=== PATIENT | male | born 1960 | race Caucasian/White ===

== ENCOUNTER → 2017-03-28 13:15 | Outpatient (CLI) | payer MEDICARE, MEDICAID, SELFPAY ==
[2017-03-28 14:22] LABS: Hematocrit 42.9 % (40-54); Hemoglobin 14.8 g/dl (13.0-16.5); Mean Corp Hgb Conc 34.5 g/gl (32-36); Mean Corpuscular Hgb 38.3 pg (27.0-32.0); Mean Corpuscular Volume 111.1 fL (80-94); Mean Platelet Vol. 9.2 fl (6.2-12.0); Platelet Count 169 K/mm3 (150-450); RBC Distribution Width CV 13.1 % (11.6-14.6); RBC Distribution Width SD 51.4 fl (35.1-43.9); Red Blood Count 3.86 M/mm3 (4.6-6.2)
[2017-03-28 14:24] LABS: Scan Indicated on CBC? Y/N NO
[2017-03-28 14:59] LABS: Valproic Acid (Depakene) Level 75 ug/mL (50-100)
[2017-03-28 15:05] LABS: ALB/GLOB Ratio 0.8 RATIO (0.9-2.4); AST(SGOT) 22 U/L (15-37); Alanine Aminotransfer ALT/SGPT 24 U/L (12-78); Albumin, Serum 3.4 g/dL (3.4-5.0); Alkaline Phosphatase 64 U/L (45-117); Anion Gap 6 (5-15); BUN 9 mg/dL (7-18); BUN/Creat Ratio 8.8 RATIO (10-20); Calcium,Total 8.6 mg/dL (8.5-10.1); Chloride 99 mmol/L (98-107); Creatinine, Serum 1.02 mg/dL (0.70-1.30); EST Glomerular Filtration Rate 81 mL/min (>60); Est Glom Filt Rate - Afr Amer 98 mL/min (>60); Globulin 4.3 g/dL (2.2-4.2); Glucose 84 mg/dL (70-110); Potassium 4.4 mmol/L (3.5-5.1); Protein, Total 7.7 g/dL (6.4-8.2); Sodium Level 132 mmol/L (136-145); Thyroid Stim Hormone (TSH) 2.24 uIU/mL (0.358-3.74)
--- OUTSIDE RECORDS SUMMARY | 2017-05-11 12:34 | XMS RPT_ITS ---
:1960 Author Organization OHIP Care Team Providers Name Role Phone JEAN PIERRE VOSS Attending Unavailable JEAN PIERRE VOSS Referring Unavailable HOLDEN OCONNOR) Attending Unavailable HOLDEN OCONNOR) Referring Unavailable JEAN PIERRE VOSS Attending Unavailable HOLDEN OCONNOR) Referring Unavailable HOLDEN OCONNOR) Attending Unavailable HOLDEN OCONNOR) Referring Unavailable HOLDEN OCONNOR) Attending Unavailable HOLDEN GOMEZ) Attending Unavailable JEAN PIERRE VOSS Attending Unavailable HOLDEN OCONNOR) Referring Unavailable Annamaria Connor Admitting Unavailable Tavo Oconnor Primary Care Unavailable Mark Gonzalez Attending Unavailable Torey Nicole Consulting Unavailable Jesus Smith Consulting Unavailable Celia Negron Attending Unavailable Tavo Oconnor Primary Care Unavailable Celia Negron Attending Unavailable Tavo Oconnor Primary Care Unavailable PROBLEMS PROBLEMS DATE TYPE CONDITION / CODE ATTENDING STATUS SOURCE 05/11/2017 Unknown Z79.899 - Other long Celia Negron Active [facility] term (current) drug Community therapy / Hospital Z79.899(ICD-10) Repository 02/22/2017 Active Unknown / TESTRAKE, Active [facility]Medicity [facility] [place] [facility]2016 Active Emphysema, NA Active [facility] unspecified / Clinic Main J43.9(ICD-10) [facility] Repository 09/30/2016 Unknown OTHER ALF Astreika Vera Active [facility] (CURRENT) DRUG Community THERAPY / Hospital Z79.899(ICD-10) Repository 09/11/2016 Unknown CELLULITIS OF LEFT Jopperi, Mark Active [facility] LOWER LIMB / Community L03.116(ICD-10) Hospital Repository 09/11/2016 Unknown HYPOTENSION, Jopperi, Mark Active [facility] UNSPECIFIED / Community I95.9(ICD-10) Hospital Repository 09/11/2016 Unknown HYPEROSMOLALITY AND Jopperi, Mark Active [facility] HYPERNATREMIA / Community E87.0(ICD-10) Hospital Repository 09/11/2016 Unknown OTHER ASCITES / Jopperi, Mark Active [facility] R18.8(ICD-10) [facility] Repository 09/11/2016 Unknown SCHIZOPHRENIA, Jopperi, Mark Active [facility] UNSPECIFIED / Community F20.9(ICD-10) Hospital Repository 09/11/2016 Unknown OTHER SPECIFIED Jopperi, Mark Active [facility] DISORDERS OF VEINS / Community I87.8(ICD-10) Hospital Repository 09/11/2016 Unknown ALCOHOL DEPENDENCE Jopperi, Mark Active [facility] WITH WITHDRAWAL, Community UNSPECIFIED / Hospital F10.239(ICD-10) Repository 09/11/2016 Unknown CELLULITIS OF RIGHT Jopperi, Mark Active [facility] LOWER LIMB / Community L03.115(ICD-10) Hospital Repository 09/11/2016 Unknown LYMPHEDEMA, NOT Jopperi, Mark Active [facility] ELSEWHERE CLASSIFIED Community / I89.0(ICD-10) Hospital Repository 09/11/2016 Unknown OTHER CHRONIC PAIN / Jopperi, Makr Active [facility] G89.29(ICD-10) Community Hospital Repository 09/11/2016 Unknown CHRONIC OBSTRUCTIVE Jopperi, Mark Active [facility] PULMONARY DISEASE, Community UNSPECIFIED / Hospital J44.9(ICD-10) Repository 09/11/2016 Unknown ESSENTIAL (PRIMARY) Jopperi, Mark Active [facility] HYPERTENSION / Community I10(ICD-10) Hospital Repository 09/11/2016 Unknown GASTRO-ESOPHAGEAL Jopperi, Mark Active [facility] REFLUX DISEASE Community WITHOUT ESOPHAGITIS / Hospital K21.9(ICD-10) Repository 09/11/2016 Unknown BIPOLAR DISORDER, Jopperi, Mark Active [facility] UNSPECIFIED / Community F31.9(ICD-10) Hospital Repository 09/11/2016 Unknown OBESITY, UNSPECIFIED Mark Gonzalez Active [facility] / E66.9(ICD-10) Community Hospital Repository 09/11/2016 Unknown BODY MASS INDEX (BMI) Mark Gonzalez Active [facility] 29.0-29.9, ADULT / Community Z68.29(ICD-10) Hospital Repository 09/11/2016 Unknown NICOTINE DEPENDENCE, Mark Gonzalez Active [facility] CIGARETTES, Community UNCOMPLICATED / Hospital F17.210(ICD-10) Repository 06/15/2016 Active Liver disorders in NA Active [facility] diseases classified [facility] Main elsewhere / [place] K77(ICD-10) Repository 06/15/2016 Active Nicotine dependence, NA Active [facility] unspecified, Clinic Main uncomplicated / [place] F17.200(ICD-10) Repository 06/15/2016 Active Encounter for other NA Active [facility] specified special Clinic Main examinations / [place] Z01.89(ICD-10) Repository 06/15/2016 Active Encounter for NA Active [facility] screening for other Clinic Main viral diseases / [place] Z11.59(ICD-10) Repository 06/15/2016 Active Localized edema / NA Active [facility] R60.0(ICD-10) Clinic Main [place] Repository 06/15/2016 Active Encounter for NA Active [facility] screening for Clinic Main malignant neoplasm of [place] prostate / Repository Z12.5(ICD-10) 06/15/2016 Active Frequency of NA Active [facility] micturition / Clinic Main R35.0(ICD-10) [facility] Repository PROCEDURES PROCEDURES No Procedure Records FoundRESULTS RESULTS PROGRESS Observed: 05/08/2017 Status: COMPLETED Source: [place] 12:09 PM [facility] REPOSITORY HNO ID: [id number]: Holden Loja) Susan : (none)Author Type: PhysicianType: Progress NotesFiled: 05/08/2017 2:20 PMNote Text:Chief ComplaintPatient presents with:F/U 6 MonthHPICarl Gabby To is a 57 year old male who presents here today for 6 monthfollow up. Here by himself today. Has paperwork with him today forassisted living which will need filled out. Mainly moving in to assistedliving because he needs help with medications, help with preparing meals,and getting out of tub while bathing due to history of falls. Will fillout after visit and have patient shrimp picker at his convenience.Patient still following up with Dr. Negron for history of schizophrenia,has appointment to follow up next month. Has not had any recent changes tomedications. Working well for him without worsening symptoms.Still smoking 2 packs per day. Does not want help with cessation today.Has not had recent exacerbations of COPD, lost his albuterol inhaler.Needs refill.GERD symptoms well controlled with PPI.Discussed previous CT which showed bilateral inguinal lymphadenopathy >1cm and were of a size that could be biopsied. Has not had any noticeablelymphadenopathy. Will order US to follow up on size/changes and proceedbased on findings.Due for colon cancer screening. Refusing colonoscopy. Willing to obtainFOBT.Past medical history, appointments, medications, allergies reviewed.Previous Medical HistoryPAST MEDICAL HISTORYDiagnosis Date- Abnormal US (ultrasound) of abdomen- COPD (chronic obstructive pulmonary disease) (HCC)- Diarrhea- GERD (gastroesophageal reflux disease)- Inguinal hernia, right - Lower extremity edema- Nonspecific elevation of levels of transaminase or lactic aciddehydrogenase (LDH)- Onychomycosis- Paranoid schizophrenia, chronic condition (HCC) Seeing Dr. Negron- Tobacco use disorder- Vomiting alonePrevious Surgical HistoryPAST SURGICAL HISTORYProcedure Laterality Date- EGD W/O [facility] SPECIMEN W/ BX 06/25/09- HERNIA REPAIR HX 2011 bilateral inguinal- LAPAROSCOPIC CHOLEYCYSTECTOMY 1999 Cholecystectomy, lap- PAST SURGICAL HISTORY OF right knee surgery- REPAIR ING HERNIA,5+Y/O,REDUCIBL Hernia repair, inguinalFamily HistoryFAMILY HISTORYProblem Relation Age of Onset- Alcohol/Drug Father alcoholism- Diabetes Mother diet controlled- Alcohol/Drug Mother- Arthritis Sister- Alcohol/Drug Sister- Diabetes Maternal Grandfather- Heart Paternal GrandfatherPatient AllergiesALLERGIESAllergen Reactions- Codeine Intolerance- Ziprasidone Intolerance- Haldol [Haloperidol* Intolerance severe muscle contractions- Lactate UnknownCurrent MedicationsCurrent Outpatient Prescriptions on File Prior to Visit:CHOLESTYRAMINE LIGHT 4 gram packet USE 1 PACKET IN JUICE DAILY FORDIARRHEAomeprazole (PRILOSEC) 20 mg capsule TAKE 1 CAPSULE TWICE A DAYspironolactone (ALDACTONE) 25 mg tablet TAKE 1 TABLET BY MOUTH ONCE DAILY.Compression Knee Highs KNEE HIGH COMPRESSION STOCKINGS 20-30 MM to be worndaily. DX: EDEMAalbuterol HFA (VENTOLIN HFA) 90 mcg/actuation inhaler Inhale 2 Puffs asinstructed every 4 hours as needed for Wheezing/Shortness of Breath.fluconazole (DIFLUCAN) 100 mg tablet Take 2 tablets PO daily x1 day, thentake 1 tablet PO daily x7 daysmelatonin 1 mg tab Take 1 tablet by mouth daily at bedtime.triamcinolone acetonide (KENALOG) 0.1 % cream Apply 1 application toaffected area once daily. to legsOLANZapine (ZYPREXA) 10 mg tablet Take 1 tablet by mouth twice daily. 20mg at night and 10 mg in the morninglithium 300 mg ORAL capsule Take 2 capsules at bedtime.fluphenazine deconoate 25 mg/mL INJECTION injection inject 1ml IM every 2weeksdivalproex sodium(DEPAKOTE ER 500 MG 24 HR TAB) two tablets at 8 am and 2tablets at bedtimeBENZTROPINE 1 MG TAB one po q amNo current facility- administered medications on file prior to visit.Social HistorySocial History Marital status : Spouse name: Years of education: Number of children: 2Social History Main Topics Smoking status: Current Every Day Smoker Packs/day: 2.00 Years: 35.00 Types: Cigarettes Smokeless status: Never Used Alcohol use: Yes 21.0 oz/week 14 Cans of Beer (12oz) per week Drug use: No Sexual activity: Yes Partners with: FemaleReview of SymptomsREVIEW OF SYSTEMSGENERAL: No weight loss, malaise or feversNECK: Negative for lumps, goiter, pain and significant neck swellingRESPIRATORY: Chronic cough; dry, without wheezing or SOBCARDIOVASCULAR: Negative for chest pain, leg swelling, hypertension, CHFor palpitationsGI: No nausea, vomiting, or diarrheaSKIN: Negative for lesions, rash, and itchingEXAM:BP 132/74 Pulse 88 Resp 18 Wt 89.8 kg (198 lb) BMI 31.01 kg/g3Tiyhgzh Appearance: Well appearing, alert, in no acute distress,well-hydrated, well nourished..Skin: Skin color, texture, turgor normal, no suspicious rashes or lesions.Lungs: Lungs clear to auscultation. No wheezing, rhonchi, rales.Heart: RRR without murmur, gallop, or rubs. No ectopy.Abdomen: Normal abdominal exam, Abdomen soft, non-tender. Bowel soundsnormal. No masses, organomegaly.Extremities: No edema. Compression stockings in place today.Lymph Nodes: No inguinal lymphadenopathy..Health Maintenance ListCOLORECTAL CANCER SCREENING ,SEE MODIFIER due on 02/28/2012INFLUENZA(1) due on 11/03/2016TETANUS due on 04/09/2017DIABETES SCREEN due on 06/16/2019LIPID SCREEN due on 2PROSTATE CANCER SCREENING DISCUSSION CompletedONE PNEUMOVAX PRIOR TO AGE 65 CompletedHEPATITIS C SCREENING CompletedData reviewedComponent Latest Ref Rng AND Units 06/15/2016Protein, Total 6.3 - 8.0 g/dL 8.0Albumin 3.9 - 4.9 g/dL 3.8 (L) Calcium 8.5 - 10.2 mg/dL 8.2 (L)Bilirubin, Total 0.2 - 1.3 mg/dL 0.5Alkaline Phosphatase 36 - 108 U/L 71AST 14 - 40 U/L 23Glucose 74 - 99 mg/dL 78BUN 9 - 24 mg/dL 2 (L) Creatinine 0.73 - 1.22 mg/dL 0.93Sodium 136 - 144 mmol/L 140Potassium 3.7 - 5.1 mmol/L 4.9Chloride 97 - 105 mmol/L 101CO2 22 - 30 mmol/L 28Anion Gap 9 - 18 mmol/L 11ALT 10 - 54 U/L 11eGFR- >60eGFR-All Other Races . >60Triglyceride 30 - 149 mg/dL 357 (H)Cholesterol, Total 100 - 199 mg/dL 186HDL Cholesterol >45 mg/ dL 30 (L)VLDL Cholesterol 6 - 40 mg/dL 71 (H)LDL Cholesterol 60 - 129 mg/dL 85Fasting Time hrs 16TC:HDL Ratio 1.00 - 5.00 6.20 (H)LDL:HDL Ratio 0.50 - 3.55 2.83Non HDL Cholesterol 90 - 159 mg/dL 156HCV RNA by PCR IU/mL HCV RNA not detected by PCR.PSA 0.00 - 2.59 ng/mL 2.00ASSESSMENT/PLAN:1. Paranoid schizophrenia, chronic condition (HCC) - ICD9: 295.32, ICD10:F20.0 (primary diagnosis)Continue regimen per Dr. Negron's office.2. Tobacco use disorder - ICD9: 305.1, ICD10: F17.200- Cessation encouraged.- Physiologic and physical aspects of tobacco addiction as well asstrategies for quitting were discussed.- Counseling was given focusing on the harmful effects of this addictionespecially given the patient's medical condition(s) which will be worsenedbecause of the chemicals in tobacco.- LIPID PANEL BASIC3. Mixed simple and mucopurulent chronic bronchitis (HCC) - ICD9: 491.1,ICD10: J41.8Will refill albuterol. Advised smoking cessation.- ALBUTEROL SULFATE HFA 90 MCG/ ACTUATION AEROSOL INHALER4. Gastroesophageal reflux disease without esophagitis - ICD9: 530.81,ICD10: K21.9- Continue treatment with Prilosec 20 mg BID5. Esophagitis - ICD9: 530.10, ICD10: K20.9- Continue treatment with Prilosec 20 mg BID6. Lymphadenopathy, inguinal - ICD9: 785.6, ICD10: R59.0Will obtain US to follow up. If still present, will refer for biopsy.- US PELVIS LTD7. Lower extremity edema - ICD9: 782.3, ICD10: R60.0No edema today. Continue compression stockings and diuretic.8. Obesity (BMI 30.0-34.9) - ICD9: 278.00, ICD10: E66.9Work on improved diet and exercise.- LIPID PANEL BASIC9. Hyponatremia - ICD9: 276.1, ICD10: E87.1Noted on most recent CMP scanned into system. Repeat CMP, will call withresults.- COMP METABOLIC PANEL10. Need for vaccination - ICD9: V05.9, ICD10: Z23- TETANUS/DIPTHERIA BOOSTER (OVER 7), PF IM11. Screening for colon cancer - ICD9: V76.51, ICD10: Z12.11- FECAL OCCULT BLOOD TESTI spent 30 minutes in the visit, with more than 50% of the jzjzdmhrn-ku-vjag time of the visit in counseling / coordination of care.Holden Oconnor MD CNOV Observed: 05/08/2017 Status: COMPLETED Source: [place] 12:00 PM [facility] REPOSITORY Office Visit (FAMPWS) ---------TONY ARIZA ([id number]) 1960 MDate Time Provider Department05/08/17 12:00 PM HOLDEN OCONNOR) FAMPWS During your visit today, we recorded the following information about you: Pulse Respiration Blood pressure Weight 88/minute 18/minute 132/74 89.8 kgChristopher Sofía Oconnor MD 05/08/2017 2:20 PM SignedChief ComplaintPatient presents with:F/U 6 MonthHPICarl Gabby oT is a 57 year old male who presents here today for 6 month followup. Here by himself today. Has paperwork with him today for assisted livingwhich will need filled out. Mainly moving in to assisted living because heneeds help with medications, help with preparing meals, and getting out of tubwhile bathing due to history of falls. Will fill out after visit and havepatient shrimp picker at his convenience.Patient still following up with Dr. Negron for history of schizophrenia, hasappointment to follow up next month. Has not had any recent changes tomedications. Working well for him without worsening symptoms.Still smoking 2 packs per day. Does not want help with cessation today. Has nothad recent exacerbations of COPD, lost his albuterol inhaler. Needs refill.GERD symptoms well controlled with PPI.Discussed previous CT which showed bilateral inguinal lymphadenopathy ANDgt ;1 cmand were of a size that could be biopsied. Has not had any noticeablelymphadenopathy. Will order US to follow up on size/changes and proceed basedon findings.Due for colon cancer screening. Refusing colonoscopy. Willing to obtain FOBT.Past medical history, appointments, medications, allergies reviewed.Previous Medical HistoryPAST MEDICAL HISTORYDiagnosis Date- Abnormal US (ultrasound) of abdomen- COPD (chronic obstructive pulmonary disease) (HCC)- Diarrhea- GERD (gastroesophageal reflux disease)- Inguinal hernia, right- Lower extremity edema- Nonspecific elevation of levels of transaminase or lactic acid dehydrogenase(LDH)- Onychomycosis- Paranoid schizophrenia, chronic condition ( HCC) Seeing Dr. Negron- Tobacco use disorder- Vomiting alonePrevious Surgical HistoryPAST SURGICAL HISTORYProcedure Laterality Date- EGD W/O [facility] SPECIMEN W/BX 06/25/09- HERNIA REPAIR HX 2011 bilateral inguinal- LAPAROSCOPIC CHOLEYCYSTECTOMY 1999 Cholecystectomy, lap- PAST SURGICAL HISTORY OF right knee surgery- REPAIR ING HERNIA,5+Y/O,REDUCIBL Hernia repair, inguinalFamily HistoryFAMILY HISTORYProblem Relation Age of Onset- Alcohol/Drug Father alcoholism- Diabetes Mother diet controlled- Alcohol/Drug Mother- Arthritis Sister- Alcohol/Drug Sister- Diabetes Maternal Grandfather- Heart Paternal GrandfatherPatient AllergiesALLERGIESAllergen Reactions- Codeine Intolerance- Ziprasidone Intolerance- Haldol [Haloperidol* Intolerance severe muscle contractions- Lactate UnknownCurrent MedicationsCurrent Outpatient Prescriptions on File Prior to Visit:CHOLESTYRAMINE LIGHT 4 gram packet USE 1 PACKET IN JUICE DAILY FOR DIARRHEAomeprazole (PRILOSEC) 20 mg capsule TAKE 1 CAPSULE TWICE A DAYspironolactone (ALDACTONE) 25 mg tablet TAKE 1 TABLET BY MOUTH ONCE DAILY.Compression Knee Highs KNEE HIGH COMPRESSION STOCKINGS 20-30 MM to be worndaily. DX: EDEMAalbuterol HFA (VENTOLIN HFA) 90 mcg/actuation inhaler Inhale 2 Puffs asinstructed every 4 hours as needed for Wheezing/Shortness of Breath.fluconazole (DIFLUCAN) 100 mg tablet Take 2 tablets PO daily x1 day, then take1 tablet PO daily x7 daysmelatonin 1 mg tab Take 1 tablet by mouth daily at bedtime.triamcinolone acetonide (KENALOG) 0.1 % cream Apply 1 application to affectedarea once daily. to legsOLANZapine (ZYPREXA) 10 mg tablet Take 1 tablet by mouth twice daily. 20 mg atnight and 10 mg in the morninglithium 300 mg ORAL capsule Take 2 capsules at bedtime.fluphenazine deconoate 25 mg/mL INJECTION injection inject 1ml IM every 2 weeksdivalproex sodium(DEPAKOTE ER 500 MG 24 HR TAB) two tablets at 8 am and 2tablets at bedtimeBENZTROPINE 1 MG TAB one po q amNo current facility-administered medications on file prior to visit.Social HistorySocial History Marital status: Spouse name: Years of education: Number of children: 2Social History Main Topics Smoking status: Current Every Day Smoker Packs/day: 2.00 Years: 35.00 Types: Cigarettes Smokeless status: Never Used Alcohol use: Yes 21.0 oz/week 14 Cans of Beer (12oz) per week Drug use: No Sexual activity: Yes Partners with: FemaleReview of SymptomsREVIEW OF SYSTEMSGENERAL: No weight loss , malaise or feversNECK: Negative for lumps, goiter, pain and significant neck swellingRESPIRATORY: Chronic cough; dry, without wheezing or SOBCARDIOVASCULAR: Negative for chest pain, leg swelling, hypertension, CHF orpalpitationsGI: No nausea, vomiting, or diarrheaSKIN: Negative for lesions, rash, and itchingEXAM:BP 132/74 Pulse 88 Resp 18 Wt 89.8 kg (198 lb) BMI 31.01 kg /u3Lcnlsyf Appearance: Well appearing, alert, in no acute distress, well-hydrated,well nourished..Skin : Skin color, texture, turgor normal, no suspicious rashes or lesions.Lungs: Lungs clear to auscultation. No wheezing, rhonchi, rales.Heart: RRR without murmur, gallop, or rubs. No ectopy.Abdomen: Normal abdominal exam, Abdomen soft, non-tender. Bowel sounds normal.No masses, organomegaly.Extremities: No edema. Compression stockings in place today.Lymph Nodes: No inguinal lymphadenopathy..Health Maintenance ListCOLORECTAL CANCER SCREENING,SEE MODIFIER due on 02/28/2012INFLUENZA(1) due on 11/03/2016TETANUS due on 04/09/2017DIABETES SCREEN due on 06/16/2019LIPID SCREEN due on 2PROSTATE CANCER SCREENING DISCUSSION CompletedONE PNEUMOVAX PRIOR TO AGE 65 CompletedHEPATITIS C SCREENING CompletedData reviewedComponent Latest Ref Rng ANDamp; Units 06/15/2016Protein, Total 6.3 - 8.0 g/dL 8.0Albumin 3.9 - 4.9 g/dL 3.8 (L)Calcium 8.5 - 10.2 mg/dL 8.2 (L)Bilirubin, Total 0.2 - 1.3 mg/dL 0.5Alkaline Phosphatase 36 - 108 U/L 71AST 14 - 40 U/L 23Glucose 74 - 99 mg/dL 78BUN 9 - 24 mg/dL 2 (L)Creatinine 0.73 - 1.22 mg/dL 0.93Sodium 136 - 144 mmol/L 140Potassium 3.7 - 5.1 mmol/L 4.9Chloride 97 - 105 mmol/L 101CO2 22 - 30 mmol/L 28Anion Gap 9 - 18 mmol/L 11ALT 10 - 54 U /L 11eGFR- ANDgt;60eGFR-All Other Races . ANDgt;60Triglyceride 30 - 149 mg/dL 357 (H)Cholesterol, Total 100 - 199 mg/dL 186HDL Cholesterol ANDgt;45 mg/dL 30 (L)VLDL Cholesterol 6 - 40 mg/dL 71 (H)LDL Cholesterol 60 - 129 mg/dL 85Fasting Time hrs 16TC:HDL Ratio 1.00 - 5.00 6.20 ( H)LDL:HDL Ratio 0.50 - 3.55 2.83Non HDL Cholesterol 90 - 159 mg/dL 156HCV RNA by PCR IU/mL HCV RNA not detected by PCR.PSA 0.00 - 2.59 ng/mL 2.00ASSESSMENT/PLAN:1. Paranoid schizophrenia, chronic condition (HCC) - ICD9: 295.32, ICD10: F20.0(primary diagnosis)Continue regimen per Dr. Negron's office.2. Tobacco use disorder - ICD9: 305.1, ICD10: F17.200- Cessation encouraged.- Physiologic and physical aspects of tobacco addiction as well as strategiesfor quitting were discussed.- Counseling was given focusing on the harmful effects of this addictionespecially given the patient's medical condition(s) which will be worsenedbecause of the chemicals in tobacco.- LIPID PANEL BASIC3. Mixed simple and mucopurulent chronic bronchitis (HCC) - ICD9: 491.1, ICD10:J41.8Will refill albuterol. Advised smoking cessation.- ALBUTEROL SULFATE HFA 90 MCG/ACTUATION AEROSOL INHALER4. Gastroesophageal reflux disease without esophagitis - ICD9: 530.81, ICD10:K21.9- Continue treatment with Prilosec 20 mg BID5. Esophagitis - ICD9: 530.10, ICD10: K20.9- Continue treatment with Prilosec 20 mg BID6. Lymphadenopathy, inguinal - ICD9: 785.6, ICD10: R59.0Will obtain US to follow up. If still present, will refer for biopsy.- US PELVIS LTD7. Lower extremity edema - ICD9: 782.3, ICD10: R60.0No edema today. Continue compression stockings and diuretic.8. Obesity (BMI 30.0-34.9) - ICD9: 278.00, ICD10: E66.9Work on improved diet and exercise.- LIPID PANEL BASIC9. Hyponatremia - ICD9: 276.1, ICD10: E87.1Noted on most recent CMP scanned into system. Repeat CMP, will call withresults.- COMP METABOLIC PANEL10. Need for vaccination - ICD9: V05.9, ICD10: Z23- TETANUS/DIPTHERIA BOOSTER (OVER 7), PF IM11. Screening for colon cancer - ICD9: V76.51, ICD10: Z12.11- FECAL OCCULT BLOOD TESTI spent 30 minutes in the visit, with more than 50% of the total slzm-kj-fqgwahbi of the visit in counseling / coordination of care.Holden Oconnor, Neto Provider: HOLDEN OCONNOR) [ [id number]]Allergies As of Date: 05/08/2017 Noted Allergy ReactionCODEINE 02/14/2005 5 - IntoleranceZIPRASIDONE 02/14/2005 5 - IntoleranceHALDOL (HALOPERIDOL LACTATE) 02/14/2005 5 - Intolerance Comments: severe muscle contractionsLACTATE 01/15/2013 16 - UnknownDate Reviewed: 05/08/2017Reviewed by: Luis Hart Ma - Fully AssessedReason for Visit: F/U 6 Month [444]Primary Visit Diagnosis:Paranoid schizophrenia, chronic condition (HCC) [F20.0] Other Visit Diagnoses:Tobacco use disorder [F17.200] Mixed simple and mucopurulent chronic bronchitis (HCC) [ J41.8] Gastroesophageal reflux disease without esophagitis [K21.9] Esophagitis [K20.9] Lymphadenopathy, inguinal [R59.0] Lower extremity edema [R60.0] Obesity (BMI 30.0 -34.9) [E66.9] Hyponatremia [E87.1] Need for vaccination [Z23] Screening for colon cancer [Z12.11]Order(s):albuterol HFA (VENTOLIN HFA ) 90 mcg/actuation inhalerInhale 2 Puffs as instructed every 4 hours as needed for Wheezing/Shortness of Breath.Disp: 1 InhalerRfl: 5 [employer] [[id number]] Order #: [id number] FUTURE COMP METABOLIC PANEL [SQCMP] Order #: [id number] FUTURE LIPID PANEL BASIC [ SQLIPB] Order #: [id number] FUTURE TETANUS/DIPTHERIA BOOSTER (OVER 7), PF IM [86315LQO] Order #: [id number] FECAL OCCULT BLOOD TEST [SQIFOBT] Order #: [id number] FUTUREPrescriptions as of 05/08/2017 Sig: OMEPRAZOLE 20 MG CAPSULE,KHANH* TAKE 1 CAPSULE TWICE A DAY SPIRONOLACTONE 25 MG TABLET TAKE 1 TABLET BY MOUTH ONCE D* COMPOUNDED PRESCRIPTION KNEE HIGH COMPRESSION STOCKIN* MELATONIN 1 MG TABLET Take 1 tablet by mouth daily * TRIAMCINOLONE ACETONIDE 0.1 %* Apply 1 application to affect* OLANZAPINE 10 MG TABLET Take 1 tablet by mouth twice * LITHIUM CARBONATE 300 MG CAPS* Take 2 capsules at bedtime. FLUPHENAZINE DECANOATE 25 MG/* inject 1ml IM every 2 weeks DEPAKOTE ER 500 MG TABLET,EXT* two tablets at 8 am and 2 tab* BENZTROPINE 1 MG TABLET one po q am ALBUTEROL SULFATE HFA 90 MCG/* Inhale 2 Puffs as instructed *Problem List As Of Date 05/08/2017 Noted Resolved TOBACCO USE DISORDER [F17.200] More... PARANOID SCHIZO-CHRONIC [ F20.0] More... Diarrhea [R19.7] 07/26/2011 Vomiting alone [R11.11] INVALID FOR*07/26/2011 Nonsp Abn Find-Body NEC [R93.8] INVALID FOR* Esophagitis [K20.9] INVALID FOR* More... COPD (chronic obstructive pulmonary disease) [J*INVALID FOR* More... GERD ( gastroesophageal reflux disease) [K21.9] INVALID FOR* More... Costochondritis [M94.0] INVALID FOR* Inguinal hernia right unilateral INVALID FOR* Nonspecific elevation of levels of transaminase* Abnormal US (ultrasound) of abdomen [R93.5] Onychomycosis [ B35.1] INVALID FOR* Pes planus of both feet [M21.41, M21.42] INVALID FOR * Lower extremity edema [R60.0] Obesity (BMI 30.0-34.9) [E66.9]Prescriptions ordered this encounter Disp Refills Start End ALBUTEROL SULFATE HFA 90 MCG/ACTUATI* 1 In* 5 2017 Route: INHALATION Sig: Inhale 2 Puffs as instructed every 4 hours as needed for Wheezing/ Shortness of Breath.Medications Discontinued During This Encounter CHOLESTYRAMINE LIGHT 4 gram packet 28 P* 2 05/02/2017 05/08/2017 Cmt: Maximum Refills Reached Sig: USE 1 PACKET IN JUICE DAILY FOR DIARRHEA Patient not taking: Reported on 05/08/2017 Disc: Reason for discontinue is not on file. fluconazole (DIFLUCAN) 100 mg tablet 9 ta* 0 04/26/2016 05/08/2017 Sig: Take 2 tablets PO daily x1 day, then take 1 tablet PO daily x7 days Patient not taking: Reported on 05/08/2017 Disc: Reason for discontinue is not on file. albuterol HFA (VENTOLIN HFA) 90 mcg/* 1 In* 5 08/29/2016 05/08/2017 Route: INHALATION Sig: Inhale 2 Puffs as instructed every 4 hours as needed for Wheezing/Shortness of Breath. Patient not taking: Reported on 05/08 Disc: Reason for discontinue is not on file.Disposition: Return in about 6 months ( around 11/08/2017).Follow-up and Disposition History RecordedEncounter Number: [id number] Status:Closed by HOLDEN OCONNOR MD on 05/08/17 CBC-COMPLETE BLOOD CNT Collected: 03/28/2017 Status: F Source: [place] NO DIFF 1:23 PM [facility] REPOSITORY TYPE CODE TESTS RESULT OUT OF RANGE REFERENCE UNITS LAB L100.1000 Normal 4.4-11.0 K/mm3 WBC 7.0 LAB L100.1200 Low 4.6-6.2 M/mm3 RBC 3.86 LAB L100.1300 Normal 13.0-16.5 g/dl HGB 14.8 LAB L100.1400 Normal 40-54 % HCT 42.9 LAB L100.1500 High 80-94 fL MCV 111.1 LAB L100.1600 High 27.0-32.0 pg MCH 38.3 LAB L100.1700 Normal 32-36 g/gl MCHC 34.5 LAB L100.1810 Normal 11.6-14.6 % RDW 13.1 CV LAB L100.1820 High 35.1-43.9 fl RDW 51.4 SD LAB L100.1900 Normal 150-450 K/mm3 PLT 169 LAB L100.2000 Normal 6.2-12.0 fl MPV 9.2 Performed By: #### L100.0500 ####[facility] [id number] [place], [place], [address] VALPROIC ACID Collected: 03/28/2017 Status: F Source: [place] (DEPAKENE) LEVEL 1:23 PM [facility] REPOSITORY Order Comment: Date of Last Dose: 03/28/17Time of Last Dose: 1100 TYPE CODE TESTS RESULT OUT OF RANGE REFERENCE UNITS LAB L501.8100 Normal 50-100 ug/mL VALPROIC 75 ACID Performed By: #### L501.8100, L501.9060 ####[facility] [id number] [place], [place], [address] LITHIUM Collected: 03/28/2017 Status: F Source: [place] 1:23 PM [facility] REPOSITORY Order Comment: Date of Last Dose: 03/28/17Time of Last Dose: 1100 TYPE CODE TESTS RESULT OUT OF RANGE REFERENCE UNITS LAB L501.9060 Low 0.60-1.20 mmol/L LI 0.50 Performed By: #### L501.8100, L501.9060 ####[facility] [id number] [place], [place], [address] COMPREHENSIVE METABOLIC Collected: 03/28/2017 Status: F Source: J[place] PROFIL 1:23 PM [facility] REPOSITORY Order Comment: FAX RESULTS TO [id number] TYPE CODE TESTS RESULT OUT OF RANGE REFERENCE UNITS LAB L501.0100 Normal 70-110 mg/dL GLU 84 LAB L501.1000 Normal 7-18 mg/dL BUN 9 LAB L501.1100 Normal 0.70-1.30 mg/dL 1.02 CREAT,SERUM Result Comment: The validity of the calculated GFR AND GFRAA in patients over70 years has not been determined. Clinical correlation isessential. LAB L501.1110 Normal >60 mL/min EST GFR 81 Result Comment: Non- GFR Calc LAB L501.1115 Normal >60 mL/min EST GFR - 98 AA Result Comment: GFR Calc LAB L501.1300 Low 10-20 RATIO BUN/CRE 8.8 LAB L501.1500 Normal 6.4-8.2 g/dL T PROT 7.7 LAB L501.1800 Normal 3.4-5.0 g/dL ALB 3.4 Result Comment: Please note revised Albumin AND Globulin reference rangeeffective 2016. LAB L501.1950 High 2.2-4.2 g/dL GLOB 4.3 LAB L501.2000 Low 0.9-2.4 RATIO A/G 0.8 LAB L501.2200 Normal 8.5-10.1 mg/dL CA 8.6 LAB L501.4100 Normal 15-37 U/L AST 22 LAB L501.4305 Normal 45-117 U/L ALK P 64 LAB L501.4405 Normal 12-78 U/L ALT 24 LAB L501.4600 Normal 0.20-1.00 mg/dL T BILI 0.30 LAB L501.5300 Low 136-145 mmol/L NA 132 LAB L501.5600 Normal 3.5-5.1 mmol/L K 4.4 LAB L501.5900 Normal 98-107 mmol/L CL 99 LAB L501.6100 Normal 21.0-32.0 mmol/L CO2 27.0 LAB L501.6200 Normal 5-15 GAP 6 Performed By: #### L500.4050, L501.9520 ####[facility] [id number] [place], [place], [address] THYROID STIM HORMONE Collected: 03/28/2017 Status: F Source: JOSSE (TSH) 1:23 PM [facility] REPOSITORY Order Comment: FAX RESULTS TO [id number] TYPE CODE TESTS RESULT OUT OF RANGE REFERENCE UNITS LAB L501.9520 Normal 0.358-3.74 uIU/mL TSH 2.24 Performed By: #### L500.4050, L501.9520 ####[facility] [id number] [place] [place], [address] PROGRESS Observed: 02/22/2017 Status: COMPLETED Source: [place] 4:31 PM [facility] REPOSITORY HNO ID: [id number]: Jean Pierre Gauthierervice: (none) Author Type: PhysicianType: Progress NotesFiled: 02/23/2017 8:18 PMNote Text: Subjective: Patient presents to clinic c/o thick toenails. They statethat the nails are especially painful with shoe gear and pressure. Noother pedal complaints at this time.Patient states no change in medications or medical history since lastvisit.Objective: Patient presents to clinic ambulating in sneakersVasc: DP and PT pulses are palpable bilateral. CFT is less than 5 secondsbilateral. Skin temperature is warm to cool proximal to distal bilateral. There is mild edema or varicosities noted.Neuro: Protective sensation is intact to the foot and toes when testedwith the 5.07 SWM bilateral. Vibratory sensation is intact at the halluxIPJ bilateral. The hallux is downgoing bilateral.Derm: Nails 1-5 b/l are discolored-yellow, thick, crumbly, dystrophic andwith subungal debris. Skin is of normal turgor, texture and hair growthis present bilateral. There are no hyperkeratosis, ulcerations, scars,verruca or other lesions noted.Ortho: Muscle strength is 5/5 for all pedal groups tested. Ankle joint DFis decreased with the knee extended with no pain or crepitus noted. 1stMPJ ROM is decreased bilateral.Assessment:(B35.1) Onychomycosis (primary encounter diagnosis)Plan: Patient was seen and evaluated.Nails 1-5 bilateral were debrided in length and thickness as courtesy.Patient can f/u prn.Jean Pierre Voss DPM CNOV Observed: 02/22/2017 Status: COMPLETED Source: [place] 3:30 PM [facility] [place] REPOSITORY Office Visit (PODIWS) ---------TONY ARIZA ([id number]) 1960 [facility] Time Provider Sgeufbbjgb35/21/17 3:30 PM JEAN PIERRE VOSS PODIWS During your visit today, we recorded the following information about you:Jean Pierre Voss DPM 02/23/2017 8:18 PM SignedSubjective: Patient presents to clinic c/o thick toenails. They state that thenails are especially painful with shoe gear and pressure. No other pedalcomplaints at this time.Patient states no change in medications or medical history since last visit.Objective: Patient presents to clinic ambulating in sneakersVasc: DP and PT pulses are palpable bilateral. CFT is less than 5 secondsbilateral. Skin temperature is warm to cool proximal to distal bilateral.There is mild edema or varicosities noted.Neuro: Protective sensation is intact to the foot and toes when tested with the5.07 SWM bilateral. Vibratory sensation is intact at the hallux IPJ bilateral. The hallux is downgoing bilateral.Derm: Nails 1-5 b/l are discolored-yellow, thick, crumbly, dystrophic and withsubungal debris. Skin is of normal turgor, texture and hair growth is presentbilateral. There are no hyperkeratosis, ulcerations, scars, verruca or otherlesions noted.Ortho : Muscle strength is 5/5 for all pedal groups tested. Ankle joint DF isdecreased with the knee extended with no pain or crepitus noted. 1st MPJ ROMis decreased bilateral.Assessment:(B35.1) Onychomycosis (primary encounter diagnosis)Plan:Patient was seen and evaluated.Nails 1-5 bilateral were debrided in length and thickness as courtesy.Patient can f/u prn.SHELDON NortonMReferring Provider: SELF [200]Allergies As of Date: 02/22/2017 Noted Allergy ReactionCODEINE 02/14/2005 5 - IntoleranceZIPRASIDONE 02/14/2005 5 - IntoleranceHALDOL (HALOPERIDOL LACTATE) 02/14/2005 5 - Intolerance Comments: severe muscle contractionsLACTATE 01/15/2013 16 - UnknownDate Reviewed: 02/22/2017Reviewed by: Kandi Green RN - Fully AssessedReason for Visit: Established Patient [175] Cmt: nail carePrimary Visit Diagnosis:Onychomycosis [B35.1] Prescriptions as of 02/22/2017 Sig: CHOLESTYRAMINE LIGHT 4 GRAM P* USE 1 PACKET IN JUICE DAILY F* SPIRONOLACTONE 25 MG TABLET TAKE 1 TABLET BY MOUTH ONCE D* COMPOUNDED PRESCRIPTION KNEE HIGH COMPRESSION STOCKIN* ALBUTEROL SULFATE HFA 90 MCG/* Inhale 2 Puffs as instructed * OMEPRAZOLE 20 MG CAPSULE,KHANH* Take 1 capsule by mouth twice* FLUCONAZOLE 100 MG TABLET Take 2 tablets PO daily x1 da* MELATONIN 1 MG TABLET Take 1 tablet by mouth daily * TRIAMCINOLONE ACETONIDE 0.1 %* Apply 1 application to affect* OLANZAPINE 10 MG TABLET Take 1 tablet by mouth twice * LITHIUM CARBONATE 300 MG CAPS* Take 2 capsules at bedtime. FLUPHENAZINE DECANOATE 25 MG/* inject 1ml IM every 2 weeks DEPAKOTE ER 500 MG TABLET,EXT* two tablets at 8 am and 2 tab* BENZTROPINE 1 MG TABLET one po q amProblem List As Of Date 02/22/2017 Noted Resolved TOBACCO USE DISORDER [F17.200] More... 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 Diarrhea [R19.7] 07/26/2011 Vomiting alone [ R11.11] INVALID FOR*07/26/2011 Nonsp Abn Find-Body NEC [R93.8] INVALID FOR* Esophagitis [K20.9] INVALID FOR* More... COPD ( chronic obstructive pulmonary disease) [J*INVALID FOR* More... GERD (gastroesophageal reflux disease) [K21.9] INVALID FOR* More... Costochondritis [M94.0] INVALID FOR* Inguinal hernia right unilateral INVALID FOR* Nonspecific elevation of levels of transaminase* Abnormal US (ultrasound) of abdomen [R93.5] Onychomycosis [B35.1] INVALID FOR* Pes planus of both feet [M21.41, M21.42] INVALID FOR* Lower extremity edema [R60.0] Status:Closed by JEAN PIERRE VOSS DPM on 02/23/17 OBSOLETE Observed: 11/16/2016 Status: COMPLETED Source: [place] 12:00 AM [facility] REPOSITORY Refill (FAMPWS) ---------TONY ARIZA ([id number]) 1960 MDate Time Provider Department11/16/16 HOLDEN OCONNOR) [facility] During your visit today, we recorded the following information about you:Isabel Olvera PharmD 11/17/2016 7:00 AM SignedPharmacist Refill Authorization ReviewName: Tony ArizaMRN: [id number]: 11/17/2016Time: 7:00 AMRefill authorization request(s) received via pharmacy request and reviewedunder effective consult agreement. Upon review, did confirm that an activepatient-provider relationship exists and that the prescriber is a participatingphysician under the consult agreement.The medication(s) fall under the following categories:Category 1: 1 corresponding medication(s) qualifies for renewal due to up todate labs and provider visits.Additional actions taken: Prescription(s) issued.Caitlin Mcgeeharmacy Managed Authorization CenterPhone Current Outpatient Prescriptions:CHOLESTYRAMINE LIGHT 4 gram packet USE 1 PACKET IN JUICE DAILY FOR DIARRHEACompression Knee Highs KNEE HIGH COMPRESSION STOCKINGS 20-30 MM to be worndaily. DX: EDEMAalbuterol HFA (VENTOLIN HFA) 90 mcg/actuation inhaler Inhale 2 Puffs asinstructed every 4 hours as needed for Wheezing/Shortness of Breath.omeprazole (PRILOSEC) 20 mg capsule Take 1 capsule by mouth twice daily.fluconazole (DIFLUCAN) 100 mg tablet Take 2 tablets PO daily x1 day, then take1 tablet PO daily x7 daysmelatonin 1 mg tab Take 1 tablet by mouth daily at bedtime.spironolactone (ALDACTONE) 25 mg tablet Take 1 tablet by mouth once daily.triamcinolone acetonide (KENALOG) 0.1 % cream Apply 1 application to affectedarea once daily. to legsOLANZapine (ZYPREXA) 10 mg tablet Take 1 tablet by mouth twice daily. 20 mg atnight and 10 mg in the morninglithium 300 mg ORAL capsule Take 2 capsules at bedtime.fluphenazine deconoate 25 mg/mL INJECTION injection inject 1ml IM every 2 weeksdivalproex sodium(DEPAKOTE ER 500 MG 24 HR TAB) two tablets at 8 am and 2tablets at bedtimeBENZTROPINE 1 MG TAB one po q amNo current facility-administered medications for this visit.Allergies As of Date: 11/16/2016 Noted Allergy ReactionCODEINE 02/14 5 - IntoleranceZIPRASIDONE 02/14/2005 5 - IntoleranceHALDOL (HALOPERIDOL LACTATE) 02/14/2005 5 - Intolerance Comments: severe muscle contractionsLACTATE 01/15/2013 16 - UnknownDate Reviewed: 11/01/2016Reviewed by: Luis Hart Ma - Fully AssessedReason for Visit: Refill Request [94]Order(s):CHOLESTYRAMINE LIGHT 4 gram packetUSE 1 PACKET IN JUICE DAILY FOR DIARRHEADisp: 90 PacketRfl: 0Prescriptions as of Sig: CHOLESTYRAMINE LIGHT 4 GRAM P* USE 1 PACKET IN JUICE DAILY F* COMPOUNDED PRESCRIPTION KNEE HIGH COMPRESSION STOCKIN* ALBUTEROL SULFATE HFA 90 MCG/* Inhale 2 Puffs as instructed * OMEPRAZOLE 20 MG CAPSULE,KHANH* Take 1 capsule by mouth twice* FLUCONAZOLE 100 MG TABLET Take 2 tablets PO daily x1 da* MELATONIN 1 MG TABLET Take 1 tablet by mouth daily * SPIRONOLACTONE 25 MG TABLET Take 1 tablet by mouth once d* TRIAMCINOLONE ACETONIDE 0.1 %* Apply 1 application to affect* OLANZAPINE 10 MG TABLET Take 1 tablet by mouth twice * LITHIUM CARBONATE 300 MG CAPS* Take 2 capsules at bedtime. FLUPHENAZINE DECANOATE 25 MG/* inject 1ml IM every 2 weeks DEPAKOTE ER 500 MG TABLET,EXT* two tablets at 8 am and 2 tab* BENZTROPINE 1 MG TABLET one po q amProblem List As Of Date 11/16/2016 Noted Resolved TOBACCO USE DISORDER [F17.200] More... 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 Diarrhea [R19.7] 07/26/2011 Vomiting alone [ R11.11] INVALID FOR*07/26/2011 Nonsp Abn Find-Body NEC [R93.8] INVALID FOR* Esophagitis [K20.9] INVALID FOR* More... COPD ( chronic obstructive pulmonary disease) [J*INVALID FOR* More... GERD (gastroesophageal reflux disease) [K21.9] INVALID FOR* More... Costochondritis [M94.0] INVALID FOR* Inguinal hernia right unilateral INVALID FOR* Nonspecific elevation of levels of transaminase* Abnormal US (ultrasound) of abdomen [R93.5] Onychomycosis [B35.1] INVALID FOR* Pes planus of both feet [M21.41, M21.42] INVALID FOR* Lower extremity edema [R60.0]Prescriptions ordered this encounter Disp Refills Start End CHOLESTYRAMINE LIGHT 4 GRAM POWDER F* 90 P* 0 11/17/2016 Cmt: Maximum Refills Reached Sig: USE 1 PACKET IN JUICE DAILY FOR DIARRHEAMedications Discontinued During This Encounter CHOLESTYRAMINE LIGHT 4 gram packet 30 P* 2 08/27/2016 11/17/2016 Cmt: Maximum Refills Reached Sig: USE 1 PACKET IN JUICE DAILY FOR DIARRHEA Disc: Reason for discontinue is not on file. Status:Closed by BERNABE (PHARMACIST)ISABEL on 11/17/16 FLORA Observed: 11/15/2016 Status: COMPLETED Source: [place] 11:30 AM [facility] REPOSITORY Office Visit (PULMWS) ---------TONY ARIZA ([id number]) 1960 MDate Time Provider Department11/15/16 11:30 AM [facility]PIRATORY THERAP[facility] WSTRPULMWS During your visit today, we recorded the following information about you: Pulse Respiration Weight Height 79/minute 14/minute 84.8 kg 1.702 mReferring Provider: HOLDEN OCONNOR) [[id number]]Allergies As of Date: 11/15/2016 Noted Allergy ReactionCODEINE 02/14/2005 5 - IntoleranceZIPRASIDONE 02/14/2005 5 - IntoleranceHALDOL (HALOPERIDOL LACTATE) 02/14/2005 5 - Intolerance Comments: severe muscle contractionsLACTATE 2012 16 - UnknownDate Reviewed: 11/01/2016Reviewed by: Luis Hart Ma - Fully AssessedReason for Visit : Spirometry [191]Visit Diagnosis:Pulmonary emphysema, unspecified emphysema type (HCC) [ J43.9]Order(s):SPIROMETRY - BASELINE AND POST DILATOR [1364800] Order #: [id number] as of 11/15/2016 Sig: COMPOUNDED PRESCRIPTION KNEE HIGH COMPRESSION STOCKIN* ALBUTEROL SULFATE HFA 90 MCG/* Inhale 2 Puffs as instructed * CHOLESTYRAMINE LIGHT 4 GRAM P* USE 1 PACKET IN JUICE DAILY F* OMEPRAZOLE 20 MG CAPSULE,KHANH* Take 1 capsule by mouth twice* FLUCONAZOLE 100 MG TABLET Take 2 tablets PO daily x1 da* MELATONIN 1 MG TABLET Take 1 tablet by mouth daily * SPIRONOLACTONE 25 MG TABLET Take 1 tablet by mouth once d* TRIAMCINOLONE ACETONIDE 0.1 %* Apply 1 application to affect* OLANZAPINE 10 MG TABLET Take 1 tablet by mouth twice * LITHIUM CARBONATE 300 MG CAPS* Take 2 capsules at bedtime. FLUPHENAZINE DECANOATE 25 MG/* inject 1ml IM every 2 weeks DEPAKOTE ER 500 MG TABLET,EXT* two tablets at 8 am and 2 tab* BENZTROPINE 1 MG TABLET one po q amProblem List As Of Date 11/15/2016 Noted Resolved TOBACCO USE DISORDER [F17.200] More... 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 Diarrhea [R19.7] 07/26/2011 Vomiting alone [ R11.11] INVALID FOR*07/26/2011 Nonsp Abn Find-Body NEC [R93.8] INVALID FOR* Esophagitis [K20.9] INVALID FOR* More... COPD ( chronic obstructive pulmonary disease) [J*INVALID FOR* More... GERD (gastroesophageal reflux disease) [K21.9] INVALID FOR* More... Costochondritis [M94.0] INVALID FOR* Inguinal hernia right unilateral INVALID FOR* Nonspecific elevation of levels of transaminase* Abnormal US (ultrasound) of abdomen [R93.5] Onychomycosis [B35.1] INVALID FOR* Pes planus of both feet [M21.41, M21.42] INVALID FOR* Lower extremity edema [R60.0] Status:Closed by JENSEN ALY RRT on 11/15/16 PROGRESS Observed: 11/01/2016 Status: COMPLETED Source: [place] 3:47 PM [facility] [place] REPOSITORY HNO ID: [id number]: Holden Loja) BurstessService : (none)Author Type: PhysicianType: Progress NotesFiled: 11/01/2016 4:13 PMNote Text:Chief ComplaintPatient presents with:6 Month ExamHPICarl Gabby Ariza is a 56 year old male who presents here today for 6 monthfollow up. Here today with wrapper caser. Patient was last seen in August ofthis year for hospital follow from cellulitis and has not had anyrecurrence of symptoms or hospitalizations since.Noted that patient was seen recently by Dr. Voss for onychomycosis andleg swelling. Had toenails debrided and recommended compression stockingswhich patient has been wearing daily and seem to be working for him.Following up with Dr. Negron about every 6 months and last visit was aweek ago. Patient denies changes to medications and wrapper caser does nothave any additional information. Patient taking medications as prescribed.Patient still smoking 2-3 packs of cigarettes per day. States he is notinterested in smoking cessation at this time. Discussed risks and effecton COPD. Patient states that he has not had to use his rescue inhaler ornebulizer recently and denies shortness of breath, cough, wheezing.Discussed elevated triglycerides with patient. Does not eat healthy diet.Eats large amount of hot dogs and bologna. Discussed healthy foods andwill give handout before leaving today on foods to use and foods to avoid.Reviewed health maintenance with patient and states he is up to date onscreening colonoscopy. Cannot tell me for sure when he had it done, butthinks was done by Dr. Mosqueda and tells me it was negative.Past medical history, appointments, medications, allergies reviewed.Previous Medical HistoryPAST MEDICAL HISTORYDiagnosis Date- Abnormal US (ultrasound) of abdomen- COPD (chronic obstructive pulmonary disease) (HCC)- Diarrhea- GERD (gastroesophageal reflux disease)- Inguinal hernia, right- Lower extremity edema- Nonspecific elevation of levels of transaminase or lactic aciddehydrogenase (LDH)- Onychomycosis- Paranoid schizophrenia, chronic condition (HCC) Seeing Dr. Negron- Tobacco use disorder- Vomiting alonePrevious Surgical HistoryPAST SURGICAL HISTORYProcedure Laterality Date- EGD W/O BRSH SPECIMEN W/BX 06/25/09- HERNIA REPAIR HX 2011 bilateral inguinal- LAPAROSCOPIC CHOLEYCYSTECTOMY 1999 Cholecystectomy, lap- PAST SURGICAL HISTORY OF right knee surgery- REPAIR ING HERNIA,5+Y/O,REDUCIBL Hernia repair, inguinalFamily HistoryFAMILY HISTORYProblem Relation Age of Onset- Alcohol/Drug Father alcoholism- Diabetes Mother diet controlled- Alcohol/Drug Mother- Arthritis Sister- Alcohol/Drug Sister- Diabetes Maternal Grandfather- Heart Paternal GrandfatherPatient AllergiesALLERGIESAllergen Reactions- Codeine Intolerance- Ziprasidone Intolerance- Haldol [Haloperidol* Intolerance severe muscle contractions- Lactate UnknownCurrent MedicationsCurrent Outpatient Prescriptions on File Prior to Visit:Compression Knee Highs KNEE HIGH COMPRESSION STOCKINGS 20- 30 MM to be worndaily. DX: EDEMAalbuterol HFA (VENTOLIN HFA) 90 mcg/actuation inhaler Inhale 2 Puffs asinstructed every 4 hours as needed for Wheezing/Shortness of Breath.CHOLESTYRAMINE LIGHT 4 gram packet USE 1 PACKET IN JUICE DAILY FORDIARRHEAomeprazole (PRILOSEC) 20 mg capsule Take 1 capsule by mouth twice daily.fluconazole (DIFLUCAN) 100 mg tablet Take 2 tablets PO daily x1 day, thentake 1 tablet PO daily x7 daysmelatonin 1 mg tab Take 1 tablet by mouth daily at bedtime.spironolactone (ALDACTONE) 25 mg tablet Take 1 tablet by mouth once daily.triamcinolone acetonide (KENALOG) 0.1 % cream Apply 1 application toaffected area once daily. to legsOLANZapine (ZYPREXA) 10 mg tablet Take 1 tablet by mouth twice daily. 20mg at night and 10 mg in the morninglithium 300 mg ORAL capsule Take 2 capsules at bedtime.fluphenazine deconoate 25 mg/mL INJECTION injection inject 1ml IM every 2weeksdivalproex sodium(DEPAKOTE ER 500 MG 24 HR TAB) two tablets at 8 am and 2tablets at bedtimeBENZTROPINE 1 MG TAB one po q amNo current facility- administered medications on file prior to visit.Social HistorySocial History Marital status : Spouse name: Years of education: Number of children: 2Social History Main Topics Smoking status: Current Every Day Smoker Packs/day: 2.00 Years: 35.00 Types: Cigarettes Smokeless status: Never Used Alcohol use: Yes 21.0 oz/week 14 Cans of Beer (12oz) per week Drug use: No Sexual activity: Yes Partners with: FemaleReview of SymptomsREVIEW OF SYSTEMSGENERAL: No weight loss, malaise or feversNECK: Negative for lumps, goiter, pain and significant neck swellingRESPIRATORY: Negative for cough, hemoptysis, wheezing, COPD, dyspnea orshortness of breathCARDIOVASCULAR: Negative for chest pain, leg swelling, hypertension, CHFor palpitationsGI: No nausea, vomiting, or diarrheaSKIN: Negative for lesions, rash, and itchingEXAM:BP 110/74 Pulse 68 Resp 12 Wt 85.3 kg (188 lb) BMI 29.01 kg/x7Ovwbjil Appearance: Well appearing, alert, in no acute distress,well-hydrated, well nourished..Skin: Skin color, texture, turgor normal, no suspicious rashes or lesions.Lungs: Lungs clear to auscultation. No wheezing, rhonchi, rales.Heart: RRR without murmur, gallop, or rubs. No ectopy.Abdomen: Normal abdominal exam, Abdomen soft, non-tender. Bowel soundsnormal. No masses, organomegaly.Extremities: patient wearing compression stockings to knees.Health Maintenance ListCOLORECTAL CANCER SCREENING,SEE MODIFIER due on 02/28/2012INFLUENZA(1) due on 11/03/2016TETANUS due on 04/09/2017DIABETES SCREEN due on 06/16/2019LIPID SCREEN due on 2PROSTATE CANCER SCREENING DISCUSSION CompletedONE PNEUMOVAX PRIOR TO AGE 65 CompletedHEPATITIS C SCREENING CompletedData reviewedComponent Latest Ref Rng AND Units 06/15/2016Protein, Total 6.3 - 8.0 g/ dL 8.0Albumin 3.9 - 4.9 g/dL 3.8 (L)Calcium 8.5 - 10.2 mg/dL 8.2 (L)Bilirubin, Total 0.2 - 1.3 mg/dL 0.5Alkaline Phosphatase 36 - 108 U/L 71AST 14 - 40 U/L 23Glucose 74 - 99 mg/dL 78BUN 9 - 24 mg/dL 2 (L)Creatinine 0.73 - 1.22 mg/dL 0.93Sodium 136 - 144 mmol/L 140Potassium 3.7 - 5.1 mmol/L 4.9Chloride 97 - 105 mmol/L 101CO2 22 - 30 mmol/L 28Anion Gap 9 - 18 mmol/L 11ALT 10 - 54 U/L 11eGFR- >60eGFR-All Other Races . >60Triglyceride 30 - 149 mg/dL 357 (H) Cholesterol 100 - 199 mg/dL 186HDL Cholesterol >45 mg/dL 30 (L)VLDL Cholesterol 6 - 40 mg/ dL 71 (H)LDL Cholesterol 60 - 129 mg/dL 85Fasting Time hrs 16TC:HDL Ratio 1.00 - 5.00 6.20 (H)LDL:HDL Ratio 0.50 - 3.55 2.83Non HDL Cholesterol 90 - 159 mg/dL 156HCV RNA by PCR IU/mL HCV RNA not detected by PCR.PSA 0.00 - 2.59 ng/mL 2.00ASSESSMENT/PLAN:1. Pulmonary emphysema, unspecified emphysema type (HCC) - ICD9: 492.8,ICD10: J43.9 (primary diagnosis)Will obtain PFTs. Recommended smoking cessation and have patient continuealbuterol PRN for cough/wheeze until testing resulted.- SPIROMETRY - BASELINE AND POST DILATOR2. Hypertriglyceridemia - ICD9: 272.1, ICD10: E78.1- poor control- Encouraged following a low fat, low cholesterol diet.- Discussed the benefits of regular aerobic exercise and weight loss.- Check fasting lipid panel and ALT in 6 months.- CBC- COMP METABOLIC PANEL- LIPID PANEL BASIC3. Tobacco use disorder - ICD9: 305.1, ICD10: F17.200- Cessation encouraged.- Physiologic and physical aspects of tobacco addiction as well asstrategies for quitting were discussed.- Counseling was given focusing on the harmful effects of this addictionespecially given the patient's medical condition(s) which will be worsenedbecause of the chemicals in tobacco.4. Paranoid schizophrenia, chronic condition (HCC) - ICD9: 295.32, ICD10:F20.0Patient doing well on current meds. Follow up with Dr. Jamil cedeño. Will obtain records.5. Lower extremity edema - ICD9: 782.3, ICD10: R60.0Patient to continue wearing compression stockings daily.Holden Oconnor MD CNOV Observed: 11/01/2016 Status: COMPLETED Source: [place] 3:40 PM [facility] REPOSITORY Office Visit (FAMPWS) ---------TONY ARIZA ([id number]) 1960 MDate Time Provider Department11/01/16 3:40 PM HOLDEN OCONNOR) FAMPWS During your visit today, we recorded the following information about you: Pulse Respiration Blood pressure Weight 68/minute 12/minute 110/74 85.3 kgChristopher Sofía Oconnor MD 11/01/2016 4:13 PM AddendumChief ComplaintPatient presents with:6 Month ExamHPICarl Gabby To is a 56 year old male who presents here today for 6 month followup. Here today with wrapper caser. Patient was last seen in August of this year forhospital follow from cellulitis and has not had any recurrence of symptoms orhospitalizations since.Noted that patient was seen recently by Dr. Voss for onychomycosis and legswelling. Had toenails debrided and recommended compression stockings whichpatient has been wearing daily and seem to be working for him.Following up with Dr. Negron about every 6 months and last visit was a weekago. Patient denies changes to medications and wrapper caser does not have anyadditional information. Patient taking medications as prescribed.Patient still smoking 2-3 packs of cigarettes per day. States he is notinterested in smoking cessation at this time. Discussed risks and effect onCOPD. Patient states that he has not had to use his rescue inhaler or nebulizerrecently and denies shortness of breath, cough, wheezing.Discussed elevated triglycerides with patient. Does not eat healthy diet. Eatslarge amount of hot dogs and bologna. Discussed healthy foods and will givehandout before leaving today on foods to use and foods to avoid.Reviewed health maintenance with patient and states he is up to date onscreening colonoscopy. Cannot tell me for sure when he had it done, but thinkswas done by Dr. Mosqueda and tells me it was negative.Past medical history, appointments, medications, allergies reviewed.Previous Medical HistoryPAST MEDICAL HISTORYDiagnosis Date- Abnormal US (ultrasound) of abdomen - COPD (chronic obstructive pulmonary disease) (HCC)- Diarrhea- GERD (gastroesophageal reflux disease)- Inguinal hernia, right- Lower extremity edema- Nonspecific elevation of levels of transaminase or lactic acid dehydrogenase(LDH)- Onychomycosis- Paranoid schizophrenia, chronic condition ( HCC) Seeing Dr. Negron- Tobacco use disorder- Vomiting alonePrevious Surgical HistoryPAST SURGICAL HISTORYProcedure Laterality Date- EGD W/O [facility] SPECIMEN W/BX 06/25/09- HERNIA REPAIR HX 2012 bilateral inguinal- LAPAROSCOPIC CHOLEYCYSTECTOMY 1999 Cholecystectomy, lap- PAST SURGICAL HISTORY OF right knee surgery- REPAIR ING HERNIA,5+Y/O,REDUCIBL Hernia repair, inguinalFamily HistoryFAMILY HISTORYProblem Relation Age of Onset- Alcohol/Drug Father alcoholism- Diabetes Mother diet controlled- Alcohol/Drug Mother- Arthritis Sister- Alcohol/Drug Sister- Diabetes Maternal Grandfather- Heart Paternal GrandfatherPatient AllergiesALLERGIESAllergen Reactions- Codeine Intolerance- Ziprasidone Intolerance- Haldol [Haloperidol* Intolerance severe muscle contractions- Lactate UnknownCurrent MedicationsCurrent Outpatient Prescriptions on File Prior to Visit:Compression Knee Highs KNEE HIGH COMPRESSION STOCKINGS 20-30 MM to be worndaily. DX: EDEMAalbuterol HFA (VENTOLIN HFA) 90 mcg/actuation inhaler Inhale 2 Puffs asinstructed every 4 hours as needed for Wheezing/Shortness of Breath.CHOLESTYRAMINE LIGHT 4 gram packet USE 1 PACKET IN JUICE DAILY FOR DIARRHEAomeprazole (PRILOSEC) 20 mg capsule Take 1 capsule by mouth twice daily.fluconazole (DIFLUCAN) 100 mg tablet Take 2 tablets PO daily x1 day, then take1 tablet PO daily x7 daysmelatonin 1 mg tab Take 1 tablet by mouth daily at bedtime.spironolactone (ALDACTONE) 25 mg tablet Take 1 tablet by mouth once daily.triamcinolone acetonide (KENALOG) 0.1 % cream Apply 1 application to affectedarea once daily. to legsOLANZapine (ZYPREXA) 10 mg tablet Take 1 tablet by mouth twice daily. 20 mg atnight and 10 mg in the morninglithium 300 mg ORAL capsule Take 2 capsules at bedtime.fluphenazine deconoate 25 mg/mL INJECTION injection inject 1ml IM every 2 weeksdivalproex sodium(DEPAKOTE ER 500 MG 24 HR TAB) two tablets at 8 am and 2tablets at bedtimeBENZTROPINE 1 MG TAB one po q amNo current facility-administered medications on file prior to visit.Social HistorySocial History Marital status: Spouse name: Years of education: Number of children: 2Social History Main Topics Smoking status: Current Every Day Smoker Packs/day: 2.00 Years: 35.00 Types: Cigarettes Smokeless status: Never Used Alcohol use: Yes 21.0 oz/week 14 Cans of Beer (12oz) per week Drug use: No Sexual activity: Yes Partners with: FemaleReview of SymptomsREVIEW OF SYSTEMSGENERAL: No weight loss , malaise or feversNECK: Negative for lumps, goiter, pain and significant neck swellingRESPIRATORY: Negative for cough, hemoptysis, wheezing, COPD, dyspnea orshortness of breathCARDIOVASCULAR : Negative for chest pain, leg swelling, hypertension, CHF orpalpitationsGI: No nausea, vomiting, or diarrheaSKIN: Negative for lesions, rash, and itchingEXAM:BP 110/74 Pulse 68 Resp 12 Wt 85.3 kg (188 lb) BMI 29.01 kg/w8Kgzyrws Appearance: Well appearing, alert, in no acute distress , well-hydrated,well nourished..Skin: Skin color, texture, turgor normal, no suspicious rashes or lesions.Lungs: Lungs clear to auscultation. No wheezing, rhonchi, rales.Heart: RRR without murmur, gallop, or rubs. No ectopy.Abdomen: Normal abdominal exam, Abdomen soft, non-tender. Bowel sounds normal.No masses, organomegaly.Extremities: patient wearing compression stockings to knees.Health Maintenance ListCOLORECTAL CANCER SCREENING,SEE MODIFIER due on 02/28/2012INFLUENZA(1) due on 11/03/2016TETANUS due on 04/09/2017DIABETES SCREEN due on 06/16/2019LIPID SCREEN due on 2PROSTATE CANCER SCREENING DISCUSSION CompletedONE PNEUMOVAX PRIOR TO AGE 65 CompletedHEPATITIS C SCREENING CompletedData reviewedComponent Latest Ref Rng ANDamp; Units 06/15/2016Protein, Total 6.3 - 8.0 g/dL 8.0Albumin 3.9 - 4.9 g/dL 3.8 (L)Calcium 8.5 - 10.2 mg/dL 8.2 (L)Bilirubin, Total 0.2 - 1.3 mg/dL 0.5Alkaline Phosphatase 36 - 108 U/L 71AST 14 - 40 U/L 23Glucose 74 - 99 mg/dL 78BUN 9 - 24 mg/dL 2 (L)Creatinine 0.73 - 1.22 mg/dL 0.93Sodium 136 - 144 mmol/L 140Potassium 3.7 - 5.1 mmol/L 4.9Chloride 97 - 105 mmol/L 101CO2 22 - 30 mmol/L 28Anion Gap 9 - 18 mmol/L 11ALT 10 - 54 U /L 11eGFR- ANDgt;60eGFR-All Other Races . ANDgt;60Triglyceride 30 - 149 mg/dL 357 (H)Cholesterol 100 - 199 mg/dL 186HDL Cholesterol ANDgt;45 mg/dL 30 (L)VLDL Cholesterol 6 - 40 mg/ dL 71 (H)LDL Cholesterol 60 - 129 mg/dL 85Fasting Time hrs 16TC:HDL Ratio 1.00 - 5.00 6.20 (H)LDL:HDL Ratio 0.50 - 3.55 2.83Non HDL Cholesterol 90 - 159 mg/dL 156HCV RNA by PCR IU/mL HCV RNA not detected by PCR.PSA 0.00 - 2.59 ng/mL 2.00ASSESSMENT/PLAN:1. Pulmonary emphysema, unspecified emphysema type (HCC) - ICD9: 492.8, ICD10:J43.9 (primary diagnosis)Will obtain PFTs. Recommended smoking cessation and have patient continuealbuterol PRN for cough/wheeze until testing resulted.- SPIROMETRY - BASELINE AND POST DILATOR2. Hypertriglyceridemia - ICD9: 272.1, ICD10: E78.1- poor control- Encouraged following a low fat, low cholesterol diet.- Discussed the benefits of regular aerobic exercise and weight loss.- Check fasting lipid panel and ALT in 6 months.- CBC- COMP METABOLIC PANEL- LIPID PANEL BASIC3. Tobacco use disorder - ICD9: 305.1, ICD10: F17.200- Cessation encouraged.- Physiologic and physical aspects of tobacco addiction as well as strategiesfor quitting were discussed.- Counseling was given focusing on the harmful effects of this addictionespecially given the patient's medical condition(s) which will be worsenedbecause of the chemicals in tobacco.4. Paranoid schizophrenia, chronic condition (HCC) - ICD9: 295.32, ICD10: F20.0Patient doing well on current meds. Follow up with Dr. Negron as recommended.Will obtain records.5. Lower extremity edema - ICD9: 782.3, ICD10: R60.0Patient to continue wearing compression stockings daily.Holden Oconnor, MDReferring Provider: HOLDEN OCONNOR) [[id number]]Allergies As of Date: 2016 Noted Allergy ReactionCODEINE 02/14/2005 5 - IntoleranceZIPRASIDONE 02/14/2005 5 - IntoleranceHALDOL (HALOPERIDOL LACTATE) 02/14/2005 5 - Intolerance Comments: severe muscle contractionsLACTATE 2012 16 - UnknownDate Reviewed: 11/01/2016Reviewed by: Luis Hart Ma - Fully AssessedReason for Visit : 6 Month Exam [189]Primary Visit Diagnosis:Pulmonary emphysema, unspecified emphysema type ( HCC) [J43.9] Other Visit Diagnoses:Hypertriglyceridemia [E78.1] Tobacco use disorder [F17.200] Paranoid schizophrenia, chronic condition (HCC) [F20.0] Lower extremity edema [R60.0]Order(s):SPIROMETRY - BASELINE AND POST DILATOR [7709004] Order #: [id number] FUTURE CBC [SQCBC] Order #: [id number] FUTURE COMP METABOLIC PANEL [SQCMP] Order #: [id number] FUTURE LIPID PANEL BASIC [SQLIPB] Order #: [id number] FUTUREPrescriptions as of 11/01/2016 Sig: COMPOUNDED PRESCRIPTION KNEE HIGH COMPRESSION STOCKIN* ALBUTEROL SULFATE HFA 90 MCG/* Inhale 2 Puffs as instructed * CHOLESTYRAMINE LIGHT 4 GRAM P* USE 1 PACKET IN JUICE DAILY F* OMEPRAZOLE 20 MG CAPSULE,KHANH* Take 1 capsule by mouth twice* FLUCONAZOLE 100 MG TABLET Take 2 tablets PO daily x1 da* MELATONIN 1 MG TABLET Take 1 tablet by mouth daily * SPIRONOLACTONE 25 MG TABLET Take 1 tablet by mouth once d* TRIAMCINOLONE ACETONIDE 0.1 %* Apply 1 application to affect* OLANZAPINE 10 MG TABLET Take 1 tablet by mouth twice * LITHIUM CARBONATE 300 MG CAPS* Take 2 capsules at bedtime. FLUPHENAZINE DECANOATE 25 MG/* inject 1ml IM every 2 weeks DEPAKOTE ER 500 MG TABLET,EXT* two tablets at 8 am and 2 tab* BENZTROPINE 1 MG TABLET one po q amProblem List As Of Date 11/01/2016 Noted Resolved TOBACCO USE DISORDER [F17.200] More... 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 Diarrhea [ R19.7] 07/26/2011 Vomiting alone [R11.11] INVALID FOR*07/26/2011 Nonsp Abn Find-Body NEC [R93.8] INVALID FOR* Esophagitis [K20.9] INVALID FOR* More... COPD (chronic obstructive pulmonary disease) [J*INVALID FOR* More... GERD (gastroesophageal reflux disease) [K21.9] INVALID FOR* More... Costochondritis [M94.0] INVALID FOR* Inguinal hernia right unilateral INVALID FOR* Nonspecific elevation of levels of transaminase* Abnormal US (ultrasound) of abdomen [R93.5] Onychomycosis [B35.1] INVALID FOR* Pes planus of both feet [M21.41, M21.42] INVALID FOR* Lower extremity edema [R60.0] Disposition: Return in about 6 months (around 05/02/2017).Follow-up and Disposition History RecordedEncounter Number: [id number] Status:Closed by HOLDEN OCONNOR MD on 11/01/16 PROGRESS Observed: 10/05/2016 Status: COMPLETED Source: [place] 1:44 PM [facility] RE[facility] HNO ID: [id number]: Jean Pierre Gauthierervice: (none) Author Type: PhysicianType: Progress NotesFiled: 10/05/2016 1:52 PMNote Text:Subjective : Patient presents to clinic c/o painful toenails. They statethat the nails are especially painful with shoe gear and pressure.Patient states that nails 1-5 b/ l are painful. No other pedalcomplaints at this time.Patient states no change in medications or medical history since lastvisit.Objective: Patient presents to clinic ambulating in slippersVasc: DP and PT pulses are nonpalpable bilateral. CFT is greater than 5seconds bilateral. Skin temperature is warm to cool proximal to distalbilateral. There is + edema or varicosities noted. There are pigmentedchanges of b/l feetNeuro: Protective sensation is absent to the foot and toes when testedwith the 5.07 SWM bilateral. Vibratory sensation is absent at the halluxIPJ bilateral. The hallux is downgoing bilateral.Derm: Nails 1-5 b/l are painful, discolored- yellow, thick, crumbly,dystrophic and with subungal debris. Skin is of normal turgor, textureand hair growth is absent bilateral. There are no hyperkeratosis, ulcerations, scars, verruca or other lesions noted.Ortho: Muscle strength is 5/5 for all pedal groups tested. Ankle joint DFis decreased with the knee extended with no pain or crepitus noted. 1stMPJ ROM is decreased bilateral.Assessment:(B35.1) Onychomycosis (primary encounter diagnosis)(M79.675) Pain in toe of left foot(M79.674) Pain in toe of right footVenous insuffiencyPlan:Patient was seen and evaluated.Nails 1-5 bilateral were debrided in length and thickness.Patient has pad, absence of hair growth, swelling of limbs, pigmentchanges in skin and nails consistent with q8 modifierCompression stockings are to be worn at all times except for sleepingMatthew JESSEE Voss CNOV Observed: 10/05/2016 Status: COMPLETED Source: [place] 1:10 PM [facility] [place] REPOSITORY Office Visit (PODIWS) ---------TONY ARIZA ([id number]) 1960 MDate Time Provider Department10/05/16 1:10 PM JEAN PIERRE VOSS PODIWS During your visit today, we recorded the following information about you:Jean Pierre Voss DPM 10/05/2016 1 :52 PM SignedSubjective: Patient presents to clinic c/o painful toenails. They state thatthe nails are especially painful with shoe gear and pressure. Patient statesthat nails 1-5 b /l are painful. No other pedal complaints at this time.Patient states no change in medications or medical history since last visit.Objective: Patient presents to clinic ambulating in slippersVasc: DP and PT pulses are nonpalpable bilateral. CFT is greater than 5seconds bilateral. Skin temperature is warm to cool proximal to distalbilateral. There is + edema or varicosities noted. There are pigmented changesof b/l feetNeuro: Protective sensation is absent to the foot and toes when tested with the5.07 SWM bilateral. Vibratory sensation is absent at the hallux IPJ bilateral. The hallux is downgoing bilateral.Derm: Nails 1-5 b/l are painful, discolored-yellow, thick, crumbly, dystrophicand with subungal debris. Skin is of normal turgor, texture and hair growth isabsent bilateral. There are no hyperkeratosis, ulcerations, scars, verruca orother lesions noted.Ortho: Muscle strength is 5/5 for all pedal groups tested. Ankle joint DF isdecreased with the knee extended with no pain or crepitus noted. 1st MPJ ROMis decreased bilateral.Assessment:(B35.1) Onychomycosis ( primary encounter diagnosis)(M79.675) Pain in toe of left foot(M79.674) Pain in toe of right footVenous insuffiencyPlan:Patient was seen and evaluated.Nails 1-5 bilateral were debrided in length and thickness.Patient has pad, absence of hair growth, swelling of limbs, pigment changes inskin and nails consistent with q8 modifierCompression stockings are to be worn at all times except for sleepingMatthew LORELEI Vosseferring Provider: JEAN PIERRE VOSS [[id number]] Allergies As of Date: 10/05/2016 Noted Allergy ReactionCODEINE 02/14 5 - IntoleranceZIPRASIDONE 02/14/2005 5 - IntoleranceHALDOL (HALOPERIDOL LACTATE) 02/14/2005 5 - Intolerance Comments: severe muscle contractionsLACTATE 01/15/2013 16 - UnknownDate Reviewed: 10/05/2016Reviewed by: Kandi Green RN - Fully AssessedReason for Visit: Nail Care [Other]Primary Visit Diagnosis: Onychomycosis [B35.1] Other Visit Diagnoses:Pain in toe of left foot [M79.675] Pain in toe of right foot [M79.674]Prescriptions as of 10/05/2016 Sig: COMPOUNDED PRESCRIPTION KNEE HIGH COMPRESSION STOCKIN* ALBUTEROL SULFATE HFA 90 MCG/* Inhale 2 Puffs as instructed * CHOLESTYRAMINE LIGHT 4 GRAM P* USE 1 PACKET IN JUICE DAILY F* OMEPRAZOLE 20 MG CAPSULE,KHANH* Take 1 capsule by mouth twice* FLUCONAZOLE 100 MG TABLET Take 2 tablets PO daily x1 da* MELATONIN 1 MG TABLET Take 1 tablet by mouth daily * SPIRONOLACTONE 25 MG TABLET Take 1 tablet by mouth once d* TRIAMCINOLONE ACETONIDE 0.1 %* Apply 1 application to affect* OLANZAPINE 10 MG TABLET Take 1 tablet by mouth twice * LITHIUM CARBONATE 300 MG CAPS* Take 2 capsules at bedtime. FLUPHENAZINE DECANOATE 25 MG/* inject 1ml IM every 2 weeks DEPAKOTE ER 500 MG TABLET,EXT* two tablets at 8 am and 2 tab* BENZTROPINE 1 MG TABLET one po q amProblem List As Of Date 10/05/2016 Noted Resolved TOBACCO USE DISORDER [F17.200] More... 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 Diarrhea [ R19.7] 07/26/2011 Vomiting alone [R11.11] INVALID FOR*07/26/2011 Nonsp Abn Find-Body NEC [R93.8] INVALID FOR* Esophagitis [K20.9] INVALID FOR* More... COPD (chronic obstructive pulmonary disease) [J*INVALID FOR* More... GERD (gastroesophageal reflux disease) [K21.9] INVALID FOR* More... Costochondritis [M94.0] INVALID FOR* Inguinal hernia right unilateral INVALID FOR* Nonspecific elevation of levels of transaminase* Abnormal US (ultrasound) of abdomen [R93.5] Onychomycosis [B35.1] INVALID FOR* Pes planus of both feet [M21.41, M21.42] INVALID FOR* Lower extremity edema [R60.0] Status:Closed by JEAN PIERRE VOSS DPM on 10/05/16 CBC-COMPLETE BLOOD CNT Collected: 09/25/2016 Status: F Source: [place] NO DIFF 10:24 AM [facility] REPOSITORY TYPE CODE TESTS RESULT OUT OF RANGE REFERENCE UNITS LAB L100.1000 Normal 4.4-11.0 K/mm3 WBC 5.9 LAB L100.1200 Low 4.6-6.2 M/mm3 RBC 4.31 LAB L100.1300 Normal 13.0-16.5 g/dl HGB 16.5 LAB L100.1400 Normal 40-54 % HCT 46.4 LAB L100.1500 High 80-94 fL MCV 107.7 LAB L100.1600 High 27.0-32.0 pg MCH 38.3 LAB L100.1700 Normal 32-36 g/gl MCHC 35.6 LAB L100.1810 High 11.6-14.6 % RDW 15.5 CV LAB L100.1820 High 35.1-43.9 fl RDW 60.4 SD LAB L100.1900 Normal 150-450 K/mm3 PLT 152 LAB L100.2000 Normal 6.2-12.0 fl MPV 9.9 Performed By: #### L100.0500 ####[facility] [address] [place], [address] HEMOGLOBIN A1C Collected: 09/25/2016 Status: F Source: [place] 10:24 AM [facility] REPOSITORY TYPE CODE TESTS RESULT OUT OF RANGE REFERENCE UNITS LAB L501.9985 Normal 4.2-6.3 % HGB 5.3 A1C Performed By: #### L501.9985 ####[facility] [address] [place], [address] VALPROIC ACID Collected: 09/25/2016 Status: F Source: [place] ANABELAMELY) [facility] 10:24 AM [facility] REPOSITORY Order Comment: Date of Last Dose: 09/24/16Time of Last Dose: 2300 TYPE CODE TESTS RESULT OUT OF RANGE REFERENCE UNITS LAB L501.8100 Normal 50-100 ug/mL VALPROIC 65 ACID Performed By: #### L501.8100, L501.9060 ####[facility] [address] [place], [address] LITHIUM Collected: 09/25/2016 Status: F Source: [place] 10:24 AM [facility] REPOSITORY Order Comment: Date of Last Dose: 09/24/16Time of Last Dose: 2300 TYPE CODE TESTS RESULT OUT OF RANGE REFERENCE UNITS LAB L501.9060 Normal 0.60-1.20 mmol/L LI 0.60 Performed By: #### L501.8100, L501.9060 ####[facility] [address] [place], [address] COMPREHENSIVE METABOLIC Collected: 09/25/2016 Status: F Source: [place]OS[place] [facility] 10:24 AM [facility] REPOSITORY TYPE CODE TESTS RESULT OUT OF RANGE REFERENCE UNITS LAB L501.0100 Normal 70-110 mg/dL GLU 77 LAB L501.1000 Low 7-18 mg/dL BUN 4 LAB L501.1100 Normal 0.70-1.30 mg/dL 0.97 CREAT,SERUM Result Comment: The validity of the calculated GFR AND GFRAA in patients over70 years has not been determined. Clinical correlation isessential. LAB L501.1110 Normal >60 mL/min EST GFR 86 Result Comment: Non- GFR Calc LAB L501.1115 Normal >60 mL/min EST GFR - 104 AA Result Comment: GFR Calc LAB L501.1300 Low 10-20 RATIO BUN/CRE 4.1 LAB L501.1500 Normal 6.4-8.2 g/dL T PROT 7.9 LAB L501.1800 Low 3.4-5.0 g/dL ALB 2.9 LAB L501.1950 High 2.3-3.5 g/dL GLOB 5.0 LAB L501.2000 Low 0.9-2.4 RATIO A/G 0.6 LAB L501.2200 Normal 8.5-10.1 mg/dL CA 8.7 LAB L501.4100 Normal 15-37 U/L AST 17 LAB L501.4305 Normal 45-117 U/L ALK P 66 LAB L501.4405 Normal 12-78 U/L ALT 15 LAB L501.4600 Normal 0.20-1.00 mg/dL T BILI 0.40 LAB L501.5300 Normal 136-145 mmol/L NA 140 LAB L501.5600 Normal 3.5-5.1 mmol/L K 4.5 LAB L501.5900 Normal 98-107 mmol/L CL 104 LAB L501.6100 Normal 21.0-32.0 mmol/L CO2 30.0 LAB L501.6200 Normal 5-15 GAP 6 Performed By: #### L500.4050, L501.9520 ####[facility] [address] [place], [place], [address] THYROID STIM HORMONE Collected: 09/25/2016 Status: F Source: JOSSE (TSH) 10:24 AM [facility] REPOSITORY TYPE CODE TESTS RESULT OUT OF RANGE REFERENCE UNITS LAB L501.9520 Normal 0.358-3.74 uIU/mL TSH 2.46 Performed By: #### L500.4050, L501.9520 ####[facility] [address] [place], [place], [address] PROGRESS Observed: 08/29/2016 Status: COMPLETED Source: [place] 1:26 PM [facility] [place] REPOSITORY HNO ID: [id number]: Amanuel (Steve) Guero: (none)Author Type: Social WorkerType: Progress NotesFiled: 08/30/2016 10:25 AMNote Text:Steve met with patient and patient shoe parts caser, Vandana, from [facility]. Patient signed [facility] Care Waiver referral form. Steve added casemanager to form as an authorized telemarketing representative. Steve faxed form to [facility] to see about in home assessment for possibility of in motor home electrical foreman. PROGRESS Observed: 08/29/2016 Status: COMPLETED Source: [place] 12:30 PM [facility] REPOSITORY HNO ID: [id number]: Holden Loja) Susan : (none)Author Type: PhysicianType: Progress NotesFiled: 08/29/2016 1:15 PMNote Text:Chief ComplaintPatient presents with:Hospital F/U: leg infectionHPKeshiarl Gabby Ariza is a 56 year old male who presents here today with stores despatch hand, Vandana , for follow-up of recent hospitalization at [facility] from07/28/16 to 08/01/16 for left lower extremity cellulitis. Was treated asinpatient with clindamycin IV and was then transitioned to oralclindamycin on discharge. Had negative venous duplex for DVT whileinpatient. Noted that the patient had CT scan of abdomen and pelvisshowing prominent lymph nodes in each groin, left 2.6x 1.4 cm right1.9x1.3 cm, both feasible for FNA or core biopsy. Discussed with patientand he refused further work up at this time.Patient finished oral abx and states that his redness has not returnedsince discharge. Patient requesting refill on his compression stockingsfor his chronic lymphedema as the ones he has at home have worn out.At home by self, but is working with social work to get home health.Past medical history, appointments, medications, allergies reviewed.Previous Medical HistoryPAST MEDICAL HISTORYDiagnosis Date- Abnormal US (ultrasound) of abdomen- COPD (chronic obstructive pulmonary disease) (HCC)- Diarrhea- GERD (gastroesophageal reflux disease)- Inguinal hernia, right - Lower extremity edema- Nonspecific elevation of levels of transaminase or lactic aciddehydrogenase (LDH)- Onychomycosis- Paranoid schizophrenia, chronic condition (HCC) Seeing Dr. Negron- Tobacco use disorder- Vomiting alonePrevious Surgical HistoryPAST SURGICAL HISTORY06/25/09: EGD W/O [facility] SPECIMEN W/EL1999: HERNIA REPAIR HX Comment: bilateral [id number]: LAPAROSCOPIC CHOLEYCYSTECTOMY Comment: Cholecystectomy, lapNo date: PAST SURGICAL HISTORY OF Comment: right knee surgeryNo date: REPAIR ING HERNIA,5+Y/O,REDUCIBL Comment: Hernia repair, inguinalFamily HistoryFAMILY HISTORY Alcohol/Drug Father Comment: alcoholism Diabetes Mother Comment: diet controlled Alcohol/Drug Mother Arthritis Sister Alcohol/ Drug Sister Diabetes Maternal Grandfather Heart Paternal GrandfatherPatient AllergiesALLERGIESAllergen Reactions- Codeine Intolerance- Ziprasidone Intolerance- Haldol [Haloperidol* Intolerance severe muscle contractions- Lactate UnknownCurrent MedicationsCurrent Outpatient Prescriptions on File Prior to Visit:CHOLESTYRAMINE LIGHT 4 gram packet USE 1 PACKET IN JUICE DAILY FORDIARRHEAomeprazole (PRILOSEC) 20 mg capsule Take 1 capsule by mouth twice daily.fluconazole (DIFLUCAN) 100 mg tablet Take 2 tablets PO daily x1 day, thentake 1 tablet PO daily x7 daysalbuterol HFA (VENTOLIN HFA) 90 mcg/actuation inhaler Inhale 2 Puffs asinstructed every 4 hours as needed for Wheezing/Shortness of Breath.melatonin 1 mg tab Take 1 tablet by mouth daily at bedtime.spironolactone (ALDACTONE) 25 mg tablet Take 1 tablet by mouth once daily.triamcinolone acetonide (KENALOG) 0.1 % cream Apply 1 application toaffected area once daily. to legsOLANZapine ( ZYPREXA) 10 mg tablet Take 1 tablet by mouth twice daily. 20mg at night and 10 mg in the morninglithium 300 mg ORAL capsule Take 2 capsules at bedtime.fluphenazine deconoate 25 mg/mL INJECTION injection inject 1ml IM every 2weeksdivalproex sodium( DEPAKOTE ER 500 MG 24 HR TAB) two tablets at 8 am and 2tablets at bedtimeBENZTROPINE 1 MG TAB one po q amNo current facility-administered medications on file prior to visit.Social HistorySocial History Marital status: Spouse name: Years of education: Number of children: 2Social History Main Topics Smoking status: Current Every Day Smoker Packs/day: 2.00 Years: 35.00 Types: Cigarettes Smokeless status: Never Used Alcohol use: Yes 21.0 oz/ week 14 Cans of Beer (12oz) per week Drug use: No Sexual activity: Yes Partners with: FemaleReview of SymptomsREVIEW OF SYSTEMSGENERAL: No weight loss , malaise or feversRESPIRATORY: Cough; productive with clear sputum due to chronic smoking.Denies wheezing or SOB.CARDIOVASCULAR: Negative for chest pain, leg swelling, hypertension, CHFor palpitationsGI: No nausea, vomiting, or diarrheaSKIN: Negative for lesions, rash, and itchingEXAM:BP 126/70 Pulse 88 Resp 24 Wt 89.4 kg (197 lb) BMI 30.4 kg/d9Ktintus Appearance: Well appearing, alert, in no acute distress,well-hydrated, well nourished..Skin: no erythema to indicate cellulitis, but has chronic skin darkeningin lower extremities bilaterally.Lungs: Negative findings: no rales, or wheezes, Positive findings:decreased lung sounds throughout- chronic, mild rhonchi.Heart: RRR without murmur, gallop, or rubs. No ectopy.Extremities : Edema: 2+ bilaterally in LE to knees.Health Maintenance ListCOLORECTAL CANCER SCREENING,SEE MODIFIER due on 02/28/2012TETANUS due on 04/09/2017DIABETES SCREEN due on 06/16/2019LIPID SCREEN due on 2PROSTATE CANCER SCREENING DISCUSSION CompletedONE PNEUMOVAX PRIOR TO AGE 65 CompletedINFLUENZA CompletedHEPATITIS C SCREENING CompletedASSESSMENT/PLAN:1. Cellulitis of left lower extremity - ICD9 : 682.6, ICD10: L03.116(primary diagnosis)Resolved.2. Lower extremity edema - ICD9: 782.3, ICD10: R60.0Will give rx for compression stockings for lymphedema and recheck atfuture visit- COMPOUNDED PRESCRIPTION3. Hospital discharge follow-up - ICD9: V67.59, ICD10: V13Nsnkzkz's symptoms have resolved. To call with recurrence.4. Lymphadenopathy - ICD9: 785.6, ICD10: R59.1Patient refusing further work up of groin lymph nodes. Will recheck atfuture visit.Holden Oconnor MD CNOV Observed: 08/29/2016 Status: COMPLETED Source: [place] 12:20 PM [facility] REPOSITORY Office Visit (FAMPWS) ---------TONY ARIZA ([id number]) 1960 MDate Time Provider Department08/29/16 12:20 PM HOLDEN OCONNOR) FAMPWS During your visit today, we recorded the following information about you: Pulse Respiration Blood pressure Weight 88/minute 24/minute 126/70 89.4 kgChristopher Sofía Oconnor MD 08/29/2016 1:15 PM SignedChief ComplaintPatient presents with:Hospital F/U : leg infectionHPICarl Gabby Ariza is a 56 year old male who presents here today with wrapper caser, Vandana, for follow-up of recent hospitalization at [facility] from 07/28/16 to 08/01/16for left lower extremity cellulitis. Was treated as inpatient with clindamycinIV and was then transitioned to oral clindamycin on discharge. Had negativevenous duplex for DVT while inpatient. Noted that the patient had CT scan ofabdomen and pelvis showing prominent lymph nodes in each groin, left 2.6x 1.4cm right 1.9x1.3 cm, both feasible for FNA or core biopsy. Discussed withpatient and he refused further work up at this time.Patient finished oral abx and states that his redness has not returned sincedischarge. Patient requesting refill on his compression stockings for hischronic lymphedema as the ones he has at home have worn out.At home by self, but is working with social work to get home health.Past medical history, appointments, medications, allergies reviewed.Previous Medical HistoryPAST MEDICAL HISTORYDiagnosis Date- Abnormal US (ultrasound) of abdomen- COPD (chronic obstructive pulmonary disease) (HCC)- Diarrhea- GERD (gastroesophageal reflux disease)- Inguinal hernia, right- Lower extremity edema- Nonspecific elevation of levels of transaminase or lactic acid dehydrogenase( LDH)- Onychomycosis- Paranoid schizophrenia, chronic condition (HCC) Seeing Dr. Negron- Tobacco use disorder- Vomiting alonePrevious Surgical HistoryPAST SURGICAL HISTORY06/25/09: EGD W/O BRS SPECIMEN [id number]: HERNIA REPAIR HX Comment: bilateral [id number]: LAPAROSCOPIC CHOLEYCYSTECTOMY Comment: Cholecystectomy, lapNo date: PAST SURGICAL HISTORY OF Comment: right knee surgeryNo date: REPAIR ING HERNIA,5+Y/O,REDUCIBL Comment: Hernia repair, inguinalFamily HistoryFAMILY HISTORY Alcohol/Drug Father Comment: alcoholism Diabetes Mother Comment: diet controlled Alcohol/Drug Mother Arthritis Sister Alcohol/Drug Sister Diabetes Maternal Grandfather Heart Paternal GrandfatherPatient AllergiesALLERGIESAllergen Reactions- Codeine Intolerance- Ziprasidone Intolerance- Haldol [Haloperidol* Intolerance severe muscle contractions- Lactate UnknownCurrent MedicationsCurrent Outpatient Prescriptions on File Prior to Visit:CHOLESTYRAMINE LIGHT 4 gram packet USE 1 PACKET IN JUICE DAILY FOR DIARRHEAomeprazole ( PRILOSEC) 20 mg capsule Take 1 capsule by mouth twice daily.fluconazole (DIFLUCAN) 100 mg tablet Take 2 tablets PO daily x1 day, then take1 tablet PO daily x7 daysalbuterol HFA (VENTOLIN HFA) 90 mcg/ actuation inhaler Inhale 2 Puffs asinstructed every 4 hours as needed for Wheezing/Shortness of Breath.melatonin 1 mg tab Take 1 tablet by mouth daily at bedtime.spironolactone (ALDACTONE) 25 mg tablet Take 1 tablet by mouth once daily.triamcinolone acetonide (KENALOG) 0.1 % cream Apply 1 application to affectedarea once daily. to legsOLANZapine (ZYPREXA) 10 mg tablet Take 1 tablet by mouth twice daily. 20 mg atnight and 10 mg in the morninglithium 300 mg ORAL capsule Take 2 capsules at bedtime.fluphenazine deconoate 25 mg/mL INJECTION injection inject 1ml IM every 2 weeksdivalproex sodium(DEPAKOTE ER 500 MG 24 HR TAB) two tablets at 8 am and 2tablets at bedtimeBENZTROPINE 1 MG TAB one po q amNo current facility-administered medications on file prior to visit.Social HistorySocial History Marital status: Spouse name: Years of education: Number of children: 2Social History Main Topics Smoking status: Current Every Day Smoker Packs /day: 2.00 Years: 35.00 Types: Cigarettes Smokeless status: Never Used Alcohol use: Yes 21.0 oz/week 14 Cans of Beer (12oz) per week Drug use: No Sexual activity: Yes Partners with: FemaleReview of SymptomsREVIEW OF SYSTEMSGENERAL: No weight loss, malaise or feversRESPIRATORY: Cough; productive with clear sputum due to chronic smoking. Denieswheezing or SOB.CARDIOVASCULAR: Negative for chest pain, leg swelling, hypertension, CHF orpalpitationsGI: No nausea, vomiting, or diarrheaSKIN: Negative for lesions, rash, and itchingEXAM:BP 126/70 Pulse 88 Resp 24 Wt 89.4 kg (197 lb) BMI 30.4 kg/r1Butcjou Appearance: Well appearing, alert, in no acute distress, well-hydrated,well nourished..Skin: no erythema to indicate cellulitis, but has chronic skin darkening inlower extremities bilaterally.Lungs: Negative findings: no rales, or wheezes, Positive findings: decreasedlung sounds throughout-chronic, mild rhonchi.Heart: RRR without murmur, gallop, or rubs. No ectopy.Extremities: Edema: 2+ bilaterally in LE to knees.Health Maintenance ListCOLORECTAL CANCER SCREENING,SEE MODIFIER due on 02/28/2012TETANUS due on 2017DIABETES SCREEN due on 06/16/2019LIPID SCREEN due on 2PROSTATE CANCER SCREENING DISCUSSION CompletedONE PNEUMOVAX PRIOR TO AGE 65 CompletedINFLUENZA CompletedHEPATITIS C SCREENING CompletedASSESSMENT/PLAN:1. Cellulitis of left lower extremity - ICD9: 682.6, ICD10: L03.116 ( primarydiagnosis)Resolved.2. Lower extremity edema - ICD9: 782.3, ICD10: R60.0Will give rx for compression stockings for lymphedema and recheck at futurevisit- COMPOUNDED PRESCRIPTION3. Hospital discharge follow- up - ICD9: V67.59, ICD10: O14Lzmuunh's symptoms have resolved. To call with recurrence.4. Lymphadenopathy - ICD9: 785.6, ICD10: R59.1Patient refusing further work up of groin lymph nodes. Will recheck at futurevisit.Holden Oconnor, MDReferring Provider: ER STAFF [[id number]] Allergies As of Date: 08/29/2016 Noted Allergy ReactionCODEINE 02/14 5 - IntoleranceZIPRASIDONE 02/14/2005 5 - IntoleranceHALDOL (HALOPERIDOL LACTATE) 02/14/2005 5 - Intolerance Comments: severe muscle contractionsLACTATE 01/15/2013 16 - UnknownDate Reviewed: 08/29/2016Reviewed by: Luis Hart Ma - Fully AssessedReason for Visit: Hospital F/U [57] Cmt: leg infectionPrimary Visit Diagnosis:Cellulitis of left lower extremity [L03.116] Other Visit Diagnoses:Lower extremity edema [ R60.0] Hospital discharge follow-up [Z09] Lymphadenopathy [R59.1]Order(s):Compression Knee HighsKNEE HIGH COMPRESSION STOCKINGS 20-30 MM to be worn daily. DX: EDEMADisp: 2 DeviceRfl: 2 albuterol HFA (VENTOLIN HFA) 90 mcg/actuation inhalerInhale 2 Puffs as instructed every 4 hours as needed for Wheezing/Shortness of Breath.Disp: 1 InhalerRfl: 5Prescriptions as of 08/29/2016 Sig: COMPOUNDED PRESCRIPTION KNEE HIGH COMPRESSION STOCKIN* ALBUTEROL SULFATE HFA 90 MCG/* Inhale 2 Puffs as instructed * CHOLESTYRAMINE LIGHT 4 GRAM P* USE 1 PACKET IN JUICE DAILY F* OMEPRAZOLE 20 MG CAPSULE,KHANH* Take 1 capsule by mouth twice* FLUCONAZOLE 100 MG TABLET Take 2 tablets PO daily x1 da* MELATONIN 1 MG TABLET Take 1 tablet by mouth daily * SPIRONOLACTONE 25 MG TABLET Take 1 tablet by mouth once d* TRIAMCINOLONE ACETONIDE 0.1 %* Apply 1 application to affect* OLANZAPINE 10 MG TABLET Take 1 tablet by mouth twice * LITHIUM CARBONATE 300 MG CAPS* Take 2 capsules at bedtime. FLUPHENAZINE DECANOATE 25 MG/* inject 1ml IM every 2 weeks DEPAKOTE ER 500 MG TABLET,EXT* two tablets at 8 am and 2 tab* BENZTROPINE 1 MG TABLET one po q amProblem List As Of Date 08/29/2016 Noted Resolved TOBACCO USE DISORDER [F17.200] More... 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 Diarrhea [ R19.7] 07/26/2011 Vomiting alone [R11.11] INVALID FOR*07/26/2011 Nonsp Abn Find-Body NEC [R93.8] INVALID FOR* Esophagitis [K20.9] INVALID FOR* More... COPD (chronic obstructive pulmonary disease) [J*INVALID FOR* More... GERD (gastroesophageal reflux disease) [K21.9] INVALID FOR* More... Costochondritis [M94.0] INVALID FOR* Inguinal hernia right unilateral INVALID FOR* Nonspecific elevation of levels of transaminase* Abnormal US (ultrasound) of abdomen [R93.5] Onychomycosis [B35.1] INVALID FOR* Pes planus of both feet [M21.41, M21.42] INVALID FOR* Lower extremity edema [R60.0] Prescriptions ordered this encounter Disp Refills Start End COMPOUNDED PRESCRIPTION 2 De* 2 08/29/2016 Class: Print RX Sig: KNEE HIGH COMPRESSION STOCKINGS 20-30 MM to be worn daily. DX: EDEMA ALBUTEROL SULFATE HFA 90 MCG/ACTUATI* 1 In* 5 08/29/2016 Route : INHALATION Sig: Inhale 2 Puffs as instructed every 4 hours as needed for Wheezing/ Shortness of Breath.Medications Discontinued During This Encounter albuterol HFA (VENTOLIN HFA) 90 mcg/* 1 In* 5 04/26/2016 08/29/2016 Route: INHALATION Sig: Inhale 2 Puffs as instructed every 4 hours as needed for Wheezing/Shortness of Breath. Disc: Reason for discontinue is not on file. Status:Closed by HOLDEN OCONNOR MD on 08/29/16 CNSW Observed: 08/29/2016 Status: COMPLETED Source: [place] 12:00 AM [facility] [employer] Social Work ([facility]) ---------TONY ARIZA ([id number]) 1960 MDate Time Provider Department08/29/16 AMANUEL AIKEN (STEVE) SEAN During your visit today, we recorded the following information about you:CAMRYN Ayala 08/30/2016 10: 25 AM SignedSw met with patient and patient shoe parts caser, Vandana, from [facility]. Patient signed [facility] Care Waiver referral form. Steve added casemanager to form as an authorized telemarketing representative. Steve faxed form to local [place] about in home assessment for possibility of in motor home electrical foreman.Allergies As of Date: 08/29/2016 Noted Allergy ReactionCODEINE 02/14/2005 5 - IntoleranceZIPRASIDONE 02/14/2005 5 - IntoleranceHALDOL (HALOPERIDOL LACTATE) 02/14/2005 5 - Intolerance Comments: severe muscle contractionsLACTATE 01/15/2013 16 - UnknownDate Reviewed: 08/29/2016Reviewed by: Luis Hart Ma - Fully AssessedPrescriptions as of 08/29/2016 Sig: COMPOUNDED PRESCRIPTION KNEE HIGH COMPRESSION STOCKIN* ALBUTEROL SULFATE HFA 90 MCG/* Inhale 2 Puffs as instructed * CHOLESTYRAMINE LIGHT 4 GRAM P* USE 1 PACKET IN JUICE DAILY F* OMEPRAZOLE 20 MG CAPSULE,KHANH* Take 1 capsule by mouth twice* FLUCONAZOLE 100 MG TABLET Take 2 tablets PO daily x1 da* MELATONIN 1 MG TABLET Take 1 tablet by mouth daily * SPIRONOLACTONE 25 MG TABLET Take 1 tablet by mouth once d* TRIAMCINOLONE ACETONIDE 0.1 %* Apply 1 application to affect* OLANZAPINE 10 MG TABLET Take 1 tablet by mouth twice * LITHIUM CARBONATE 300 MG CAPS* Take 2 capsules at bedtime. FLUPHENAZINE DECANOATE 25 MG/* inject 1ml IM every 2 weeks DEPAKOTE ER 500 MG TABLET,EXT* two tablets at 8 am and 2 tab* BENZTROPINE 1 MG TABLET one po q amProblem List As Of Date 08/29/2016 Noted Resolved TOBACCO USE DISORDER [F17.200] More... 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 Diarrhea [ R19.7] 07/26/2011 Vomiting alone [R11.11] INVALID FOR*07/26/2011 Nonsp Abn Find-Body NEC [R93.8] INVALID FOR* Esophagitis [K20.9] INVALID FOR* More... COPD (chronic obstructive pulmonary disease) [J*INVALID FOR* More... GERD (gastroesophageal reflux disease) [K21.9] INVALID FOR* More... Costochondritis [M94.0] INVALID FOR* Inguinal hernia right unilateral INVALID FOR* Nonspecific elevation of levels of transaminase* Abnormal US (ultrasound) of abdomen [R93.5] Onychomycosis [B35.1] INVALID FOR* Pes planus of both feet [M21.41, M21.42] INVALID FOR* Lower extremity edema [R60.0]Follow- up and Disposition History RecordedEncounter Number: [id number] Status:Closed by AMANUEL DAMON on 08/30/16 PROGRESS Observed: 08/23/2016 Status: COMPLETED Source: [place] 11:03 AM [facility] REPOSITORY HNO ID: [id number]: Amanuel (Steve) ReyesyService: (none)Author Type: Social WorkerType: Progress NotesFiled: 08/29/2016 1:25 PMNote Text:Steve will meet with patient 08/29/16 when in to see Dr. Oconnor to signmedicaid waiver form. 12 LEAD ELECTROCARDIOGRAM Observed: 08/09/2016 Status: F Source: [place] 4:17 PM [facility] RE[facility]IT[facility] [address] [place], [place] [id number] Lead EKG007/29/16 0336MR#: [id number] Acct: [id number]: TONY ARIZA Rep #: [id number]: 1960 56 From: Sang Denny MDAttayana Dr: Mark Gonzalez DO Status: DIS INOrdering Dr: Korey Perdue MD Date: 07/29/16Location: MS2 Sex: M CAdmitted: 07/28/16Test Reason : ELEVATED HRBlood Pressure : / mmHGVent. Rate : 095 BPM Atrial Rate : 095 BPMP-R Int : 140 ms QRS Dur : 074 msQT Int : 348 ms P-R-T Axes : 049 004 052 degreesQTc Int : 437 msNormal sinus rhythmNormal ECGConfirmed by SANG DENNY MD ([id number]), film or videotape editor MOUNIKA DEL ROSARIO ([id number]) on 08/09/2016 4:17:37 PMReferred By: GIRISH Confirmed By:SANG DENNY MD08/09/16 1617Date Sang Denny [facility]: Holden Oconnor MD Date Dictated: 07/29/16335Date Transcribed: 07/29/16 033Transcriptionist:Signed PROGRESS Observed: 08/07/2016 Status: COMPLETED Source: [place] 1:44 PM [facility] REPOSITORY HNO ID: [id number]: Amanuel Garcia (Sw)ervice: (none)Author Type: Social WorkerType: Progress NotesFiled: 08/29/2016 1:25 PMNote Text:Medicaid Waiver Home Care form in Jewel Estrada NP office for patientsignature when in for follow up. CNCO Observed: 08/07/2016 Status: COMPLETED Source: [place] 12:00 AM [facility] [place] REPOSITORY Letter [address] [place], [place] [address]Gmnb [address]Dear Mr. Nam,Please find enclosed consent for release to coordinate patient care. If youhave any questions or further needs. Feel free to contact me at [phone].Sincerely,EVERETTE Ayala,MARISELAWSocial WorkerCCF [facility] EMER[facility]ENCY DEPARTMENT Observed: 08/01/2016 Status: F Source: [place] SUMMARY 9:32 PM [facility] REPOSITORY [facility]ENTERMedical [facility] [id number] [facility] [place], [place] [address]Mxhpgnjsa Department SummaryMR#: [id number] Acct: [id number]: TONY ARIZA Rep #: [id number]: 1960 56 From: Fabio Ortiz MDPCP: Holden Oconnor MD Status: DIS INDATE OF SERVICE: 07/28/2016CHIEF COMPLAINT:Bilateral leg pain and swelling.HISTORY OF PRESENT ILLNESS:This is a 56-year-old male with a history of psychiatric disease, COPD, lymphedema who hashad increased leg edema, pain and redness over the past 3 days. He was seen by a nursepractitioner in his primary care physician's office. They were concerned for possiblecellulitis, so he was sent here to the Emergency Department.PHYSICAL EXAMINATION:VITAL SIGNS: Afebrile, vitals are stable.HEART : Regular.LUNGS: Clear.ABDOMEN: Soft.EXTREMITIES: He does have significant bilateral lower extremity edema with chronic venousstasis changes. The left leg is cellulitic with erythema extending to the mid thigh andis hot to the touch.EMERGENCY DEPARTMENT COURSE:Laboratory studies including CBC, BMP, ESR, CRP, notable for ESR 25, CRP 22.7. Knee x-rayshows soft tissue swelling, but otherwise normal. He was treated with IV morphine forpain and also given IV clindamycin. Given the extent of his cellulitis, I feel he willlikely need IV antibiotics for out of control. He was discussed with the hospitalist andadmitted.IMPRESSION:Left leg cellulitis.DISPOSITION: Admit.Dr. Fabio Ortiz MDT: NTSJOB: [id number] <Electronically signed by Fabio Ortiz MD>Date Fabio Ortiz MDCosigner Signature (If Indicated): Date CC: Holden Oconnor MD Date Dictated: 07/28/16 1502Date Transcribed: 07/28/16 1502Transcriptionist:Signed DISCHARGE SUMMARY Observed: 08/01/2016 Status: F Source: [place] 9:39 AM [facility] REPOSITORY [facility] [id number] [place], [place] [address]Zmzsnvjlc Qrxbrln67/30/17 0936MR#: [id number] Acct : [id number]: TONY ARIZA Rep #: [id number]: 1960 56 From: Mark Gonzalez DOPCP: Holden Oconnor MD Status: ADM IN YLocation: MS2 [id number] Date and Diagnosis- Problem ListPatient Problems:Active and Suspected ProblemsAlcohol withdrawal (Acute)Cellulitis (Acute)Date of Admission: 07/28/16Date of Discharge: 08/01/16- Primary Discharge DiagnosisActive and Suspected ProblemsAlcohol withdrawal (Acute)Cellulitis ( Acute)- Secondary Discharge DiagnosisChronic ProblemsAlcohol abuse (Chronic)COPD ( chronic obstructive pulmonary disease) (Chronic)Obesity (BMI 30.0-34.9) (Chronic) Tobacco use (Chronic)Bipolar disorder (Chronic)GERD (gastroesophageal reflux disease) (Chronic)Low HDL (under 40) (Chronic)Schizophrenia (Chronic)Tobacco abuse (Chronic)Hospital Course and TreatmentImaging Results:Clinical Impression(s) from Imaging StudiesKnee X-Ray 07/28/16 11:47IMPRESSION:Diffuse soft tissue swelling.Degenerative spur along the superior anterior aspect of the patella.Electronically Signed:Anuj Fernandez MD20109/06/25 at 14:33 EDTTel [id number], Service support , Ayshx X-Ray 07/29 02:54IMPRESSION:Bibasilar atelectasis without acute alveolar disease.Electronically Signed:Ezekiel Self, at 3:20 EDTTel , Service support , Tyrckwr/Pelvis CT 07/30/16 11:14IMPRESSION:1. Hypodense intrasinus cysts in the left upper renal pole.2. Prominent lymph nodes in each groin. The left measures 2.6 x 1.4 cm.The right measures 1.9 x 1.3 cm. Both of lumbar feasible forultrasound-guided fine-needle aspiration or core biopsy.3. Small solid lymph nodes in the retroperitoneum and in the mesentery.They are presumably benign reactive nodes.4. No suspicious acute abnormality in the abdomen and pelvis.5. Mild hepatic steatosis.6. Borderline splenomegaly measuring 13.4 cm long.Electronically Signed:Ander De MD at 12:25 EDTTel , Service support , Cgazo X-Ray 07/30/16 15:11IMPRESSION:There is bilateral basilar infiltrate / atelectasis.Electronically Signed:Enrrique Freed MD at 17:31 EDTTel , Service support , Fxtjncscfa: NoneProcedures: NoneSummary of Care Provided:The patient is a 56 year old M presents with redness of lower extremities. Patient was sent inby his primary care physician. Patient was diagnosed with cellulitis of the lower extremitiesand was started on clindamycin. Patient's cellulitis has improved. Patient was seen byorthopedics for possible septic joint and was not felt the patient had a infection in his rightknee. Calcaneus hospitalization, patient developed what was concerned for alcohol withdrawaland was started on CIWA protocol. Patient was on Ativan and today is been doing very well.Patient expresses no desire to quit alcohol though he does state that he is going to cut back.Patient states that he does want to quit smoking not sure he would be really good candidate forChantix given patient's psychiatric history. So patient will have a nicotine patch. []Discharge Diet: Low fat/ Low Cholesterol, 6 Cup Fluid Restriction, 2000 mg Sodium DietCall your doctor if your incision/area has: Increased Pain/ Swelling, Increased RednessCall your doctor if you observe: Fever of 101 or HigherHome Medications:Medications to take at DischargeBenztropine [Cogentin] 1 mg PO QHS 02/18/15Cetirizine HCl [Allergy Relief] 10 ml PO DAILY 02/18/15Divalproex ( ER) [Depakote ER] 500 mg PO DAILY 02/18/15Lithium Carbonate [Kempton Carbonate ER] 600 mg PO DAILY 02/18/15Olanzapine [Zyprexa] 10 mg PO DAILY 02/18/15Omeprazole [ Prilosec] 20 mg PO DAILY 02/18/15Spironolactone [Aldactone] 25 mg PO DAILY Fluphenazine Decanoate 25 mg IJ X1 MDD Q 2 WEEKS 07/29/16cetaminophen [Tylenol Tablet] 650 mg PO Q6H PRN PRN tablet 08/01/16Clindamycin HCl 3 tab PO TID #36 capsule 08/01/16Multivitamins,Ther W-Minerals [Multivitamin With Minerals] 1 tablet PO DAILYCM tablet 08/01/16Nicotine [Nicoderm Cq] 21 mg TRANSDERM. DAILY #14 patch 08/01/16Following Prescrptions Were Given to Patient:Nicotine [Nicoderm Cq] 21 mg TRANSDERM. DAILY #14 patchClindamycin HCl 3 tab PO TID #36 capsulePrimary Care Physician:Tavo Oconnor MD [Primary Care Provider] - Within 2 WeeksDisposition: HomeMinutes spent on discharge:: 25Patient Condition:: GoodMeaningful Use InfoMeaningful Use Diagnoses (Choose all that apply): None vkdyjnadnz93/30/17 0939 <Electronically signed by Mark Gonzalez DO>Date Mark MCRAEosign Signature (if applicable): Date CC: Holden Oconnor MD; Mark Gonzalez DO Signed DISCHARGE INSTRUCTION Observed: 08/01/2016 Status: F Source: [place] 9:36 AM [facility] REPOSITORY [facility]Medical [facility] [id number] [place] [address]Bnfgrazvektn for Home/Discharge Flmnbejzycsh56/30/17 0935MR #: [id number] Acct: [id number]: TONY ARIZA Rep #: [id number]: 1960 56 From: Mark Gonzalez DOPCP: Holden Oconnor MD Status: ADM INDischarge Diet: Low fat/ Low Cholesterol, 6 Cup Fluid Restriction , 2000 mg Sodium DietCall your doctor if your incision/area has: Increased Pain/ Swelling, Increased RednessCall your doctor if you observe: Fever of 101 or HigherAllergies/Adverse Reactions:Allergiescodeine Adverse Reaction (Verified 07/28/16 11:32)Upset Stomachhaloperidol [From Haldol] Adverse Reaction ( Verified 07/28/16 11:32)Abd cramps/diarrheahaloperidol lactate [From Haldol] Adverse Reaction (Verified 07/28/16 11:32)Abd cramps/diarrheaziprasidone Adverse Reaction ( Verified 07/28/16 11:32)UnknownLACTATE Adverse Reaction (Uncoded 07/28/16 11:32)UnknownMedications to take at DischargeBenztropine [Cogentin] 1 mg PO QHS 02/18/15Cetirizine HCl [Allergy Relief] 10 ml PO DAILY 02/18/15Divalproex (ER) [Depakote ER] 500 mg PO DAILY 02/18/15Lithium Carbonate [Kempton Carbonate ER] 600 mg PO DAILY 02/18/15Olanzapine [Zyprexa] 10 mg PO DAILY 02/18/15Omeprazole [ Prilosec] 20 mg PO DAILY 02/18/15Spironolactone [Aldactone] 25 mg PO DAILY Fluphenazine Decanoate 25 mg IJ X1 MDD Q 2 WEEKS 07/29/16cetaminophen [Tylenol Tablet] 650 mg PO Q6H PRN PRN tablet 08/01/16Clindamycin HCl 3 tab PO TID #36 capsule 08/01/16Multivitamins,Ther W-Minerals [Multivitamin With Minerals] 1 tablet PO DAILYCM tablet 08/01/16Nicotine [Nicoderm Cq] 21 mg TRANSDERM. DAILY #14 patch 08/01/16The following prescriptions were given:Nicotine [Nicoderm Cq] 21 mg TRANSDERM. DAILY #14 patchClindamycin HCl 3 tab PO TID #36 capsulePrimary Care Physician:Tavo Oconnor MD [Primary Care Provider] - Within 2 WeeksProposed Discharge Date: 08/01/1704935 <Electronically signed by Mark Jopperi DO>Date Mark Gonzalez DOCC: Holden Oconnor MD; Torey Nicole; Jesus Smith MD BASIC METABOLIC Collected: 08/01/2016 Status: F Source: JOSSE PROFILE (BMP) 7:10 AM [facility] REPOSITORY TYPE CODE TESTS RESULT OUT OF RANGE REFERENCE UNITS LAB L501.0100 Normal 70-110 mg/dL GLU 91 LAB L501.1000 Normal 7-18 mg/dL BUN 11 LAB L501.1100 Normal 0.70-1.30 mg/dL 1.05 CREAT,SERUM Result Comment: The validity of the calculated GFR AND GFRAA in patients over70 years has not been determined. Clinical correlation isessential. LAB L501.1110 Normal >60 mL/min EST GFR 78 Result Comment: Non- GFR Calc LAB L501.1115 Normal >60 mL/min EST GFR - 95 AA Result Comment: GFR Calc LAB L501.1255 Normal ml/min Estimated 77.81 CRCL LAB L501.1300 Normal 10-20 RATIO BUN/CRE 10.5 LAB L501.2200 Normal 8.5-10 mg/dL CA 8.6 .1 LAB L501.5300 Normal 136-14 mmol/L NA 143 5 LAB L501.5600 Normal 3.5-5. mmol/L K 4.6 1 Result Comment: Slight Hemolysis, Result may be falsely increased. LAB L501.5900 Normal 98-107 mmol/L CL 107 LAB L501.6100 High 21.0-32.0 mmol/L CO2 33.0 LAB L501.6200 Low 5-15 3 GAP Performed By: #### L500.2500 ####[facility] [address] [place], [address] CBC-COMPLETE BLOOD CNT Collected: 08/01/2016 Status: F Source: JOSSE NO DIFF 7:10 AM [facility] REPOSITORY TYPE CODE TESTS RESULT OUT OF RANGE REFERENCE UNITS LAB L100.1000 Normal 4.4-11.0 K/mm3 WBC 5.7 LAB L100.1200 Low 4.6-6.2 M/mm3 RBC 4.20 LAB L100.1300 Normal 13.0-16.5 g/dl HGB 15.6 LAB L100.1400 Normal 40-54 % HCT 46.7 LAB L100.1500 High 80-94 fL MCV 111.2 LAB L100.1600 High 27.0-32.0 pg MCH 37.1 LAB L100.1700 Normal 32-36 g/gl MCHC 33.4 LAB L100.1810 High 11.6-14.6 % RDW 15.4 CV LAB L100.1820 High 35.1-43.9 fl RDW 63.8 SD LAB L100.1900 Low 150-450 K/mm3 PLT 146 LAB L100.2000 Normal 6.2-12.0 fl MPV 9.4 Performed By: #### L100.0500 ####[facility] [address] [place], [place], [id number] CBC-COMPLETE BLOOD CNT Collected: 07/31/2016 Status: F Source: JOSSE NO DIFF 7:00 AM [facility] REPOSITORY TYPE CODE TESTS RESULT OUT OF RANGE REFERENCE UNITS LAB L100.1000 Normal 4.4-11.0 K/mm3 WBC 8.2 LAB L100.1200 Low 4.6-6.2 M/mm3 RBC 4.41 LAB L100.1300 Normal 13.0-16.5 g/dl HGB 15.9 LAB L100.1400 Normal 40-54 % HCT 51.3 LAB L100.1500 High 80-94 fL MCV 116.3 LAB L100.1600 High 27.0-32.0 pg MCH 36.1 LAB L100.1700 Low 32-36 g/gl MCHC 31.0 LAB L100.1810 High 11.6-14.6 % RDW 16.0 CV LAB L100.1820 High 35.1-43.9 fl RDW 68.6 SD LAB L100.1900 Low 150-450 K/mm3 PLT 134 LAB L100.2000 Normal 6.2-12.0 fl MPV 9.5 Performed By: #### L100.0500, L100.4500 ####[facility] [address] [place], [address] DIFFERENTIAL COMMENT Collected: 07/31/2016 Status: F Source: JOSSE 7:00 AM [facility] REPOSITORY TYPE CODE TESTS RESULT OUT OF RANGE REFERENCE UNITS LAB L100.4500 Normal SMEAR SCAN COMMENT Result Comment: ANISOCYTOSIS 1+MACROCYTOSIS 1+ Performed By: #### L100.0500, L100.4500 ####[facility] [address] [place], [address] BASIC METABOLIC Collected: 07/31/2016 Status: F Source: JOSSE PROFILE (BMP) 7:00 AM [facility] REPOSITORY TYPE CODE TESTS RESULT OUT OF RANGE REFERENCE UNITS LAB L501.0100 Normal 70-110 mg/dL GLU 83 LAB L501.1000 Normal 7-18 mg/dL BUN 12 LAB L501.1100 Normal 0.70-1.30 mg/dL 1.15 CREAT,SERUM Result Comment: The validity of the calculated GFR AND GFRAA in patients over70 years has not been determined. Clinical correlation isessential. LAB L501.1110 Normal >60 mL/min EST GFR 70 Result Comment: Non- GFR Calc LAB L501.1115 Normal >60 mL/min EST GFR - 85 AA Result Comment: GFR Calc LAB L501.1255 Normal ml/min Estimated 71.04 CRCL LAB L501.1300 Normal 10-20 RATIO BUN/CRE 10.4 LAB L501.2200 Normal 8.5-10 mg/dL CA 8.6 .1 LAB L501.5300 Normal 136-14 mmol/L NA 141 5 LAB L501.5600 Normal 3.5-5. mmol/L K 5.0 1 LAB L501.5900 Normal 98-107 mmol/L CL 104 LAB L501.6100 Normal 21.0-3 mmol/L CO2 29.0 2.0 LAB L501.6200 Normal 5-15 GAP 8 Performed By: #### L500.2500 ####[facility] [address] [place], [address] OSMOLALITY, URINE Collected: 07/30/2016 Status: F Source: JOSSE 6:40 PM [facility] REPOSITORY Order Comment: Order Date: 07/30/16 TYPE CODE TESTS RESULT OUT OF RANGE REFERENCE UNITS LAB L501.7400 Normal mOsm/KG 379 OSMOLALITY,U R Result Comment: OSMOLALITY URINE REFERENCE INTERVALS 24-hour Urine 300 - 900 mOsm/kg Random Urine 50 - 1400 mOsm/ kg After 12 Hr fluid restriction >850 mOsm/kg Performed By: #### L501.7400 ####[facility] [address] [place], [address] CHEST 1 VIEW Observed: 07/30/2016 Status: F Source: JOSSE (PORTABLE) 3:11 PM [facility] REPOSITORY [facility] [address] [place], [place] [address]Atnqwap 4dChest 1 View (Portable)MR#: [id number] Acct: [id number]: TOTONY Rep #: [id number]: 1960 M 56 From: Enrrique Freed MDPCP: Holden Oconnor MD Status: ADM INStudy: Chest 1 View (Portable) Date of Exam: 07/30/16Exam# [id number] Ordering Dr: Chichi Lin MDSTUDY: X-RAY CHESTREASON FOR EXAM: Male, 56 years old. AspirationTECHNIQUE: Single AP portable view of the chest.COMPARISON: July 29, 2016 FINDINGS: There is an elevated right hemidiaphragm. There is bilateral basilarinfiltrate / atelectasis.There is no pneumothorax. There is no demonstrated pleural abnormality.Normal size heart. Normal mediastinum and lolis. Normal visualizedpulmonary arteries. Normal visualized aortic arch and descending thoracicaorta.Normal visualized thoracic spine. Normal visualized ribs, clavicles, andshoulders.There is no demonstrated abnormality of the visualized soft tissuestructures of the upper abdomen. ORDER #: [id number] RAD/Chest 1 View (Portable)IMPRESSION:There is bilateral basilar infiltrate / atelectasis.Electronically Signed:Enrrique Freed MD at 17:31 [facility] [phone], Service support , HK: Holden Oconnor MD; Chichi Lin M.D. [employer] Fitter:Signed OSMOLALITY, SERUM Collected: 07/30/2016 Status: F Source: JOSSE 2:25 PM [facility] REPOSITORY Order Comment: Comments: may use existing specimen if available. TYPE CODE TESTS RESULT OUT OF RANGE REFERENCE UNITS LAB L501.7300 High 275-295 mOsm/KG 306 OSMOLALITY,S ER Performed By: #### L501.7300 ####[facility] [address] [place], [address] Observed: 07/30/2016 Status: F Source: JOSSE CULTURE, BLOOD (WB) 11:38 AM [facility] REPOSITORY Has pt arrived? Y BCNo growth in 5 days. Performed By: #### M200.1000 ####[facility] [address] [place], [address] AMMONIA Collected: 07/30/2016 Status: F Source: JOSSE 11:26 AM [facility] REPOSITORY TYPE CODE TESTS RESULT OUT OF REFERENCE UNITS RANGE LAB L503.5510 High 11-32 umol/L AMMONIA 58.0 Performed By: #### L503.5510 ####[facility] [address] [place], [address] ABDOMEN/PELVIS WITHOUT Observed: 07/30/2016 Status: F Source: JOSSE CONT 11:15 AM [facility] REPOSITORY [facility] [address] [facility] [place], [place] [address]Syvyiiw 4dAbdomen/Pelvis without ContMR#: [id number] Acct: [id number]: TONY RAIZA Rep #: [id number]: 1960 M 56 From: Ander De MDPCP: Holden Oconnor MD Status : ADM INStudy: Abdomen/Pelvis without Cont Date of Exam: 07/30/16Exam# [id number] Ordering Dr: Chichi Lin MDSTUDY: CT ABDOMEN AND PELVIS WITHOUT CONTRASTREASON FOR EXAM: Male, 56 years old. Abdominal pain with distention.Alcohol abuse with schizophrenia.RADIATION DOSAGE (If Supplied By Facility): CTDIvol = ( 19.42 ) mGy, DLP =( 1081.94 ) mGycmTECHNIQUE: Transaxial images were obtained from the dome of the diaphragmto the symphysis pubis without oral contrast, and without intravenouscontrast. Sagittal and coronal images were reconstructed.Individualized dose optimization techniques were used for this CT.COMPARISON: None. FINDINGS:Minimal dependent edema in the right posterior lung base with minimalsubsegmental atelectases. The visualized portions of the heart are withinnormal limits.Mild fatty infiltration of the liver. Postsurgical absence of thegallbladder. Borderline splenomegaly measuring 13.4 cm long. Normalpancreas.Normal bilateral adrenal glands.Normal right kidney.Left kidney: Intrasinus cyst in the upper pole. No stones orhydronephrosis.Normal visualized stomach. Normal small intestine. Normal colon. Theappendix is visualized and appears normal.Atherosclerotic calcifications in the abdominal aorta without aneurysm.Normal inferior vena cava. Few small solid lymph nodes in theretroperitoneum. They're presumably benign reactive nodes. A few tinymesenteric nodes.Normal urinary bladder.Solid lymph nodes in both inguinal regions. They are presumably benignreactive nodes. The prominent lymph node in the left inguinal regionmeasures 2.6 x 1.4 cm. The prominent right inguinal lymph node measures1.9 x 1.3 cm. Normal osseous structures. ORDER #: [id number] CT/Abdomen/ Pelvis without ContIMPRESSION:1. Hypodense intrasinus cysts in the left upper renal pole.2. Prominent lymph nodes in each groin. The left measures 2.6 x 1.4 cm.The right measures 1.9 x 1.3 cm. Both of lumbar feasible forultrasound-guided fine- needle aspiration or core biopsy.3. Small solid lymph nodes in the retroperitoneum and in the mesentery.They are presumably benign reactive nodes.4. No suspicious acute abnormality in the abdomen and pelvis.5. Mild hepatic steatosis.6. Borderline splenomegaly measuring 13.4 cm long.Electronically Signed:Ander De MD at 12:25 EDTTel , Service support , WQ: Holden Oconnor MD; Chichi Lin M.D. [employer] Fitter:Signed BASIC METABOLIC Collected: 07/30/2016 Status: F Source: JOSSE PROFILE (BMP) 6:23 AM [facility] REPOSITORY TYPE CODE TESTS RESULT OUT OF RANGE REFERENCE UNITS LAB L501.0100 Normal 70-110 mg/dL GLU 92 LAB L501.1000 Normal 7-18 mg/dL BUN 8 LAB L501.1100 Normal 0.70-1.30 mg/dL 1.17 CREAT,SERUM Result Comment: The validity of the calculated GFR AND GFRAA in patients over70 years has not been determined. Clinical correlation isessential. LAB L501.1110 Normal >60 mL/min EST GFR 69 Result Comment: Non- GFR Calc LAB L501.1115 Normal >60 mL/min EST GFR - 83 AA Result Comment: GFR Calc LAB L501.1255 Normal ml/min Estimated 69.83 CRCL LAB L501.1300 Low 10-20 RATIO BUN/CRE 6.8 LAB L501.2200 Normal 8.5-10 mg/dL CA 8.8 .1 LAB L501.5300 High 136-14 mmol/L NA 146 5 LAB L501.5600 Normal 3.5-5. mmol/L K 4.8 1 LAB L501.5900 High 98-107 mmol/L CL 109 LAB L501.6100 High 21.0-3 mmol/L CO2 36.0 2.0 LAB L501.6200 Low 5-15 GAP 1 Performed By: #### L500.2500 ####[facility] [address] [place], [address] CBC-COMPLETE BLOOD CNT Collected: 07/30/2016 Status: F Source: JOSSE NO DIFF 6:23 AM [facility] REPOSITORY TYPE CODE TESTS RESULT OUT OF RANGE REFERENCE UNITS LAB L100.1000 Normal 4.4-11.0 K/mm3 WBC 7.0 LAB L100.1200 Normal 4.6-6.2 M/mm3 RBC 4.72 LAB L100.1300 High 13.0-16.5 g/dl HGB 16.9 LAB L100.1400 High 40-54 % HCT 55.9 LAB L100.1500 High 80-94 fL MCV 118.4 LAB L100.1600 High 27.0-32.0 pg MCH 35.8 LAB L100.1700 Low 32-36 g/gl MCHC 30.2 LAB L100.1810 High 11.6-14.6 % RDW 16.2 CV LAB L100.1820 High 35.1-43.9 fl RDW 71.3 SD LAB L100.1900 Normal 150-450 K/mm3 PLT 161 LAB L100.2000 Normal 6.2-12.0 fl MPV 9.5 Performed By: #### L100.0500, L100.4500 ####[facility] [address] [facility] [place], [address] DIFFERENTIAL COMMENT Collected: 07/30/2016 Status: F Source: ANCHORAGE 6:23 AM [facility] REPOSITORY TYPE CODE TESTS RESULT OUT OF RANGE REFERENCE UNITS LAB L100.4500 Normal SMEAR SCAN COMMENT Result Comment: MACROCYTOSIS 1+ Performed By: #### L100.0500, L100.4500 ####[facility] [address] [place], [address] CONSULTATION Observed: 07/29/2016 Status: F Source: ANCHORAGE 9:36 AM [facility] REPOSITORY [facility]Medical [facility] [address] [facility] [place], [place] [address]Ofnwahpjoolp80/27/17 0928MR#: [id number] Acct: [id number]: TONY ARIZA Rep #: [id number]: 1960 56 From: Jesus Smith MDPCP: Holden Oconnor MD Status: ADM IN YLocation: MS2 [id number] for ConsultDate of Consultation: 07/29/16Reason for Consultation: Left knee pain bilateral lower extremity swelling and rednessHistory of Present Illness:The patient is a 56 year old M with history of multiple psychiatric comorbidities and alcoholabuse as well as lymphedema and venous stasis of bilateral lower extremities presents withincreased redness of bilateral lower extremities particularly over the left medial thigh withsome knee pain as well. Orthopedics was consulted by the primary service secondary to concernsfor increased left knee pain. Patient states the knee pain is increased with the onset of thebilateral lower extremity erythema. Patient does reports some mild chronic left knee pain.Overall he said no restriction in range of motion. His pain is not significantly changed withrange of motion of the knee. He does have mildly elevated ESR with an elevated CRP. Currentlybeing treated with IV antibiotics for cellulitis and lymphedema wraps. He has previouslyoutlined erythema which is improved from the initial outlines placed yesterday. He has beenable to bear weight on bilateral lower extremities. Rates his pain at a 7 out of 10 currently.Worse with weightbearing better with immobilization.Past Medical HistoryPast Medical History (Chronic Problems): Chronic ProblemsAlcohol abuse (Chronic)COPD (chronic obstructive pulmonary disease) (Chronic)Obesity (BMI 30.0-34.9) (Chronic)Tobacco use (Chronic)Bipolar disorder (Chronic)GERD (gastroesophageal reflux disease) (Chronic)Low HDL (under 40) (Chronic)Schizophrenia (Chronic)Tobacco abuse (Chronic)Allergiescodeine Adverse Reaction (Verified 07/28/16 11:32)Upset Stomachhaloperidol [From Haldol] Adverse Reaction (Verified 07/28/16 11:32)Abd cramps/diarrheahaloperidol lactate [From Haldol] Adverse Reaction (Verified 07/28/16 11:32)Abd cramps/ diarrheaziprasidone Adverse Reaction (Verified 07/28/16 11:32)UnknownLACTATE Adverse Reaction ( Uncoded 07/28/16 11:32)UnknownHome Medications:Ambulatory OrdersMedication Instructions RecordedBenztropine [Cogentin] 1 mg PO QHS 02/18/15Cetirizine HCl [Allergy Relief] 10 ml PO DAILY 02/18/15Divalproex ( ER) [Depakote ER] 500 mg PO DAILY 02/18/15Lithium Carbonate [Kempton 600 mg PO DAILY 02/18/15Carbonate ER]Olanzapine [Zyprexa] 10 mg PO DAILY Omeprazole [Prilosec] 20 mg PO DAILY 02/18/15Spironolactone [Aldactone] 25 mg PO DAILY 02/18/15Surgical History: - - R knee surgery (s/p trauma), BL Inguinal Hernia Repairs, Cholecystectomy.Psychiatric History: Bipolar, SchizophreniaLives: AloneSmoking Status: Current every day smokerTobacco Use: CigarettesAlcohol: Heavy - At least 4-5 beers per day.Drugs: None- *Family History MaternalHistory Items : Diabetes PaternalHistory Items: DiabetesReview of SystemsConstitutional: Denies: Chills, Weight ChangeHEENT: Reports: Difficulty HearingCardiovascular: Denies: Chest PainRespiratory: Denies: CoughGastrointestinal: Denies: Abdominal PainGenitourinary: Denies: DysuriaMusculoskeletal: Reports: - - See HPISkin: Reports: - - See HPINeurological: Reports: - - Patient currently in withdrawal with speech difficultiesPsychiatric: Reports: - - History of schizophrenia and bipolarObjective:Left knee x-rays show well aligned knee with mild degenerative changes. No acute fractures arenoted.- Physical ExamGeneral: Alert, Cooperative, - - Difficulty with speechHEENT: AtraumaticExtremities: - - Bilateral lower extremities: Bilateral lower extremities have swelling anderythema up to about the knee area. Do not appreciate significant effusion on either knee.Patient tolerates active range of motion full extension to 110 flexion without significantincrease in pain. Patient is otherwise neurovascular intact distally. He does have a skinWhich Were Not Taken down. Tolerates all passive motion of the knee.Vital SignsTemp Pulse Resp BP Pulse Ox98.8 F 103 26 122/75 08:00 07/29/16 08:00 07/29/16 08: 00 07/29/16 08:00 07/29/16 08:00Oxygen Flow Rate 6Oxygen Delivery Method Nasal CannulaWeight: 197 lb 1.492 ozBody Mass Index (BMI) 29.9Finger Stick Blood Glucose 71Intake and Output for Last 24 Hours07/27/16 07/28/16 07/29/1722:59 23:59 23:59Intake Total 2300 1152Output Total 200 1204Balance 2100 -52Laboratory Tests Past 24 Hrs07/29/16 07/29/16 07/29/1702: 13 03:30 03:30WBC 6.6RBC 4.76Hgb 16.9 HHct 53.2MCV 111.8 HMCH 35.5 HMCHC 31.8 LRDW 15.9 HRDW Differential 64.7 HPlt Count 165MPV 9.2Immature Gran % (Auto) 0.200Neut % (Auto) 62.1Lymph % (Auto) 18.2 LMono % (Auto) 13.1 HEos % (Auto) 5.9 HBaso % (Auto) 0.5Absolute Neuts (auto) 4.1Absolute Lymphs (auto) 1.20Total Counted Not ReportablePTINRSpecimen Type ARTpH 7.38Bicarbonate Actual 39 HPOC Total CO2 41Base Excess 14 HO2 Saturation 75 LABG pCO2 66.0 HABG pO2 43 LSodium 144Potassium 4.9Chloride 106Carbon Dioxide 37.0 HAnion Gap 1 LBUN 4 LCreatinine 1.03Estim Creat Clear Calc 79.32Est GFR (MDRD) Af Amer 97Est GFR (MDRD) Non- Af 80BUN/Creatinine Ratio 3.9 LGlucose 90Lactic AcidCalcium 8.9Total Bilirubin 0.60AST 25ALT 18Alkaline Phosphatase 120 HAmmoniaTroponin I < 0.02Total Protein 8.4 HAlbumin 2.7 LGlobulin 5.7 HAlbumin/ Globulin Ratio 0.5 L07/29/16 07/29/16 07/29/1702:30 03:30 03:30WBCRBCHgbHctMCVMCHMCHCRDWRDW DifferentialPlt CountMPVImmature Gran % (Auto)Neut % (Auto)Lymph % (Auto)Marshall % (Auto)Eos % (Auto)Baso % (Auto) Absolute Neuts (auto)Absolute Lymphs (auto)Total CountedPT 13.2INR 1.0Specimen TypepHBicarbonate ActualPOC Total UV9Ndug ExcessO2 SaturationABG gHW2OUQ tB2QcpqsmVzloaaoyeWlujhdocMurrrc DioxideAnion GapBUNCreatinineEstim Creat Clear CalcEst GFR (MDRD) Af AmerEst GFR (MDRD) Non-AfBUN/Creatinine RatioGlucoseLactic Acid 1.7CalciumTotal BilirubinASTALTAlkaline PhosphataseAmmonia 59.0 HTroponin ITotal ProteinAlbuminGlobulinAlbumin/Globulin RatioPOC Cqoclii9307/29/16 07/28/1701:10 01:25 17:57POC Glucose 114 H 72 089805:09POC Glucose 71Assessment/PlanChronic lymphedema and venous stasis with acute cellulitis bilateral lower extremities1. Recommend continue medical management with IV antibiotics2. No significant evidence for septic arthritis. No surgical intervention is needed, at thispoint no significant orthopedic follow- up as necessary.3. Recommend antibiotic treatment and long-term follow-up with primary care physician.[facility] MedicineOffice: [phone]: [phone]/29/16 0936 <Electronically signed by Jesus Smith MD> Date Jesus Smith MDCosigner Signature (if applicable): Date CC: Holden Oconnor MD; Jesus Smith MD Signed CBC W/DIFF, AUTOMATED Collected: 07/29/2016 Status: F Source: JOSSE 3:30 AM [facility] REPOSITORY TYPE CODE TESTS RESULT OUT OF RANGE REFERENCE UNITS LAB L100.1000 Normal 4.4-11.0 K/mm3 WBC 6.6 LAB L100.1200 Normal 4.6-6.2 M/mm3 RBC 4.76 LAB L100.1300 High 13.0-16.5 g/dl HGB 16.9 LAB L100.1400 Normal 40-54 % HCT 53.2 LAB L100.1500 High 80-94 fL MCV 111.8 LAB L100.1600 High 27.0-32.0 pg MCH 35.5 LAB L100.1700 Low 32-36 g/gl MCHC 31.8 LAB L100.1810 High 11.6-14.6 % RDW 15.9 CV LAB L100.1820 High 35.1-43.9 fl RDW 64.7 SD LAB L100.1900 Normal 150-450 K/mm3 PLT 165 LAB L100.2000 Normal 6.2-12.0 fl MPV 9.2 LAB L100.2100 Normal 47-70 % NEUT% 62.1 LAB L100.2200 Low 19-41 % LY% 18.2 LAB L100.2300 High 0-10 % MONO% 13.1 LAB L100.2400 High 0-5 % EO% 5.9 LAB L100.2500 Normal 0-1 % BASO% 0.5 LAB L100.2550 Normal 0.0-0.9 % IM 0.200 GRAN % Result Comment: IG% - Immature Granulocytes (promyelocytes, myelocytes andmetamyelocytes) > 1% indicates that a LEFT SHIFT is Present. LAB L100.2620 Normal 2.0-7.7 X10 3/uL Absolute Neut 4.1 LAB L100.2720 Normal 0.83-4.51 X10 3/ul Absolute Lymph 1.20 Performed By: #### L100.0100 ####[facility] [address] [place], [place], [id number] PROTHROMBIN TIME W/INR Collected: 07/29/2016 Status: F Source: ANCHORAGE 3:30 AM [facility] REPOSITORY TYPE CODE TESTS RESULT OUT OF RANGE REFERENCE UNITS LAB L300.4150 Normal 11.7-14.9 SECONDS PROTIME 13.2 LAB L300.4200 Normal INR 1.0 Performed By: #### L300.3900, L503.6009 ####[facility] [address] [facility] [place], [place], [address] LACTIC ACID Collected: 07/29/2016 Status: F Source: ANCHORAGE 3:30 AM [facility] REPOSITORY TYPE CODE TESTS RESULT OUT OF RANGE REFERENCE UNITS LAB L503.6005 Normal 0.4-2.0 mmol/L LACTIC 1.7 ACID Performed By: #### L300.3900, L503.6005 ####[facility] [address] [place], [place], [address] AMMONIA Collected: 07/29/2016 Status: F Source: ANCHORAGE 3:30 AM [facility] REPOSITORY TYPE CODE TESTS RESULT OUT OF REFERENCE UNITS RANGE LAB L503.5510 High 11-32 umol/L AMMONIA 59.0 Performed By: #### L503.5510 ####[facility] [address] [place], [address] COMPREHENSIVE METABOLIC Collected: 07/29/2016 Status: F Source: [facility] 3:30 AM [facility] REPOSITORY Order Comment: 'TROP' Serial specimen #1, #2, #3, or #4: 2 TYPE CODE TESTS RESULT OUT OF RANGE REFERENCE UNITS LAB L501.0100 Normal 70-110 mg/dL GLU 90 LAB L501.1000 Low 7-18 mg/dL BUN 4 LAB L501.1100 Normal 0.70-1.30 mg/dL 1.03 CREAT,SERUM Result Comment: The validity of the calculated GFR AND GFRAA in patients over70 years has not been determined. Clinical correlation isessential. LAB L501.1110 Normal >60 mL/min EST GFR 80 Result Comment: Non- GFR Calc LAB L501.1115 Normal >60 mL/min EST GFR - 97 AA Result Comment: GFR Calc LAB L501.1255 Normal ml/min Estimated 79.32 CRCL LAB L501.1300 Low 10-20 RATIO BUN/CRE 3.9 LAB L501.1500 High 6.4-8. g/dL T PROT 8.4 2 LAB L501.1800 Low 3.4-5. g/dL ALB 2.7 0 LAB L501.1950 High 2.3-3. g/dL GLOB 5.7 5 LAB L501.2000 Low 0.9-2. RATIO A/G 0.5 4 LAB L501.2200 Normal 8.5-10 mg/dL CA 8.9 .1 LAB L501.4100 Normal 15-37 U/L AST 25 LAB L501.4305 High 45-117 U/L ALK P 120 LAB L501.4405 Normal 12-78 U/L ALT 18 LAB L501.4600 Normal 0.20-1 mg/dL T BILI 0.60 .00 LAB L501.5300 Normal 136-14 mmol/L NA 144 5 LAB L501.5600 Normal 3.5-5. mmol/L K 4.9 1 LAB L501.5900 Normal 98-107 mmol/L CL 106 LAB L501.6100 High 21.0-3 mmol/L CO2 37.0 2.0 LAB L501.6200 Low 5-15 GAP 1 Performed By: #### L500.4050, L501.4010 ####[facility] [address] [place], [address] TROPONIN-I Collected: 07/29/2016 Status: F Source: ANCHORAGE 3:30 AM [facility] REPOSITORY Order Comment: 'TROP' Serial specimen #1, #2, #3, or #4: 2 TYPE CODE TESTS RESULT OUT OF RANGE REFERENCE UNITS LAB L501.4010 Normal <0.06 ng/mL < TROPONIN-I 0.02 Result Comment: TROPONIN-I EXPECTED VALUES <0.05 NEGATIVE 0.06 - 0.59 AT RISK OF MA > OR = 0.60 SUGGEST MA Performed By: #### L500.4050, L501.4010 ####[facility] [address] [place], [place], [address] BLOOD GAS SPECIMEN Collected: 07/29/2016 Status: F Source: ANCHORAGE TYPE 3:13 AM [facility] REPOSITORY TYPE CODE TESTS RESULT OUT OF RANGE REFERENCE UNITS LAB L9000.9990 Normal BLD ART GAS TYPE Performed By: #### L9000.9990 ####[facility] [address] [place], [place] [address] PH - I-STAT Collected: 07/29/2016 Status: F Source: ANCHORAGE 3:13 AM [facility] REPOSITORY TYPE CODE TESTS RESULT OUT OF RANGE REFERENCE UNITS LAB L9001.1110 Normal 7.35-7.45 pH - 7.38 I-STAT Performed By: #### L9001.1110 ####[facility] LaboratoryPoint of [address] [place] [address] PCO2 - ISTAT Collected: 07/29/2016 Status: F Source: JOSSE 3:13 AM [facility] REPOSITORY TYPE CODE TESTS RESULT OUT OF RANGE REFERENCE UNITS LAB L9001.1210 High 35-45 mmHg pCO2 66.0 - ISTAT Performed By: #### L9001.1210 ####[facility] LaboratoryPoint [place] [address] [place] [address] PO2 I-STAT Collected: 07/29/2016 Status: F Source: ANCHORAGE 3:13 AM [facility] REPOSITORY TYPE CODE TESTS RESULT OUT OF RANGE REFERENCE UNITS LAB L9001.1310 Low 75-100 mmHG PO2 43 I-STAT Performed By: #### L9001.1310 ####[facility] [place] [address] [place] [address] BICARBONATE ISTAT Collected: 07/29/2016 Status: F Source: JOSSE 3:13 AM [facility] REPOSITORY TYPE CODE TESTS RESULT OUT OF RANGE REFERENCE UNITS LAB L9001.2300 High 22-26 mmol/L HCO3 39 ISTAT Result Comment: Site = R RadialAllens Test = POSDevice = Nasal CanLPM = 2Results To = HOSP MDTime Given = 310 Performed By: #### L9001.2300 ####[facility] LaboratoryPoint [place] [address] [place] [address] BASE EXCESS ISTAT Collected: 07/29/2016 Status: F Source: JOSSE 3:13 AM [facility] REPOSITORY TYPE CODE TESTS RESULT OUT OF RANGE REFERENCE UNITS LAB L9001.2400 High -2 to +2 mmol/L BE 14 ISTAT Performed By: #### L9001.2400 ####[facility] LaboratoryPoint [address] [place] [address] TOTAL CARBON DIOXIDE Collected: 07/29/2016 Status: F Source: JOSSE ISTAT 3:13 AM [facility] REPOSITORY TYPE CODE TESTS RESULT OUT OF RANGE REFERENCE UNITS LAB L9001.2415 Normal mmol/L TOTAL 41 CO2 ISTAT Performed By: #### L9001.2415 ####[facility] LaboratoryPoint of [address] [place] [address] SO2 ISTAT Collected: 07/29/2016 Status: F Source: ANCHORAGE 3:13 AM [facility] REPOSITORY TYPE CODE TESTS RESULT OUT OF RANGE REFERENCE UNITS LAB L9001.2425 Low 95-99 % SO2 75 ISTAT Performed By: #### L9001.2425 ####[facility] LaboratoryPoint of [address] [place] [address] CHEST 1 VIEW Observed: 07/29/2016 Status: F Source: ANCHORAGE (PORTABLE) 2:55 AM [facility] REPOSITORY [facility]ENTERImaging [address] [place] [address]Znglvat 4dChest 1 View (Portable)MR#: [id number] Acct: [id number]: TONY ARIZA Rep #: [id number]: 1960 M 56 From: Ezekiel Self MDPCP: Holden Oconnor MD Status: ADM INStudy: Chest 1 View (Portable) Date of Exam: Exam# [id number] Ordering Dr: Korey Perdue MDSTUDY: X-RAY CHESTREASON FOR EXAM: Male, 56 years old. Shortness of breathTECHNIQUE: Single frontal view of the chest.COMPARISON: 02/18/2015 FINDINGS:Bibasilar atelectasis without acute alveolar disease. There is nodemonstrated pleural abnormality.Normal size heart. Normal mediastinum and lolis. Normal visualizedpulmonary arteries. Normal visualized aortic arch and descending thoracicaorta.Normal visualized thoracic spine. Normal visualized ribs, clavicles, andshoulders.There is no demonstrated abnormality of the visualized soft tissuestructures of the upper abdomen. ORDER #: [id number] RAD/Chest 1 View (Portable)IMPRESSION:Bibasilar atelectasis without acute alveolar disease.Electronically Signed:Ezekiel Self, at 3:20 EDTTel , Service support , LB: Holden Oconnor MD; Korey Perdue MD [employer] Fitter:Signed BEDSIDE GLUCOSE Collected: 07/29/2016 Status: F Source: JOSSE 2:10 AM [facility] REPOSITORY TYPE CODE TESTS RESULT OUT OF REFERENCE UNITS RANGE LAB L501.080 High 70-110 mg/dL BEDSIDE 114 GLU Result Comment: MANAGEMENT OF PATIENT CARE PER NURSING PROTOCOL Performed By: #### L501.080 ####[facility] LaboratoryPoint of [address] [place], [place] [address] BEDSIDE GLUCOSE Collected: 07/29/2016 Status: F Source: JOSSE 1:25 AM [facility] REPOSITORY TYPE CODE TESTS RESULT OUT OF RANGE REFERENCE UNITS LAB L501.080 Normal 70-110 mg/dL BEDSIDE 72 GLU Result Comment: MANAGEMENT OF PATIENT CARE PER NURSING PROTOCOL Performed By: #### L501.080 ####[facility] LaboratoryPoint of [address] [place] [address] VENOUS DUPLEX LOWER Observed: 07/28/2016 Status: F Source: JOSSE EXTREMITY 6:17 PM [facility] REPOSITORY [facility]ENTERCardiovascular [address], [place] [address]Xferdh Duplex US, Liajrwjajp58/26/17 1524MR#: [id number] Acct: [id number]: TONY ARIZA Rep #: [id number]: 1959 56 From: Romeo Mora MDAjob Dr: Annamaria Connor Status: ADM INOrdering Dr: Annamaria Cononr Date: 07/28/16Location: MS2 Sex: M CAdmitted: 07/28/16Reason For Study: LEG PAIN AND SWELLINGRIGHT LEFTCFV is compressible, spontaneous, phasic, CFV is compressible, spontaneous, phasic,competent and demonstrates normal competent, and demonstrates normalaugmentation. augmentation.Procedure FV is compressible, spontaneous, phasic,Exam performed in department. competent and demonstrates normalA preliminary report was called and/ or faxed augmentation.to MS-2. POP V is compressible, spontaneous,phasic,competent and demonstrates normalaugmentation.T/P Trunk is compressible.PTV is compressible.LT PerV is compressible.GSV dilated and non-compressible frommidthigh to ankleThrombus filled varicosities noted ltmedialcalf.Interpretation SummaryThere is no evidence of left lower extremity deep vein thrombosis. Superficialthrombophlebitisleft great saphenous vein and varicosities medial calf.Normal flow pattern right common femoral vein. Ordering Physician: Annamaria ConnorRefseverino Physician: Holden OconnorPerformed By: Sharon Preciado, RVT 07/28/16 1816Date Romeo Mora MDCC: Annamaria Oconnor MD Date Dictated: 07/28/16 1524Date Transcribed: 07/28/167Transcriptionist:Signed BEDSIDE GLUCOSE Collected: 07/28/2016 Status: F Source: ANCHORAGE 5:57 PM [facility] REPOSITORY TYPE CODE TESTS RESULT OUT OF RANGE REFERENCE UNITS LAB L501.080 Normal 70-110 mg/dL BEDSIDE 110 GLU Result Comment: No Action RequiredMANAGEMENT OF PATIENT CARE PER NURSING PROTOCOL Performed By: #### L501.080 ####[facility] LaboratoryPoint of [address] [place] [address] HISTORY AND PHYSICAL Observed: 07/28/2016 Status: F Source: ANCHORAGE EXAM 3:22 PM [facility] REPOSITORY [facility]ENTERMedical Records [address] [place] [place] [address]Udzowcz and Lnyoaiyw16/26/17 1448MR#: [id number] Acct: [id number]: TONY ARIZA Rep #: [id number]: 1960 56 From: Annamaria ConnorPCP: Holden Oconnor MD Status: REG ER YLocation: EDProblem List(1) COPD (chronic obstructive pulmonary disease)Status : ChronicQualifiers:COPD type: unspecified COPD Qualified Code(s): J44.9 - Chronic obstructive pulmonarydisease, unspecified(2) Obesity (BMI 30.0-34.9)Status: Chronic(3) Tobacco useStatus: Chronic(4) Bipolar disorderStatus: ChronicQualifiers:Active/Remission status: remission status unspecified Qualified Code(s): F31.9 - Bipolardisorder, unspecified(5) GERD (gastroesophageal reflux disease)Status: ChronicQualifiers:Esophagitis presence: esophagitis presence not specified Qualified Code(s): K21.9 - Gastro-esophageal reflux disease without esophagitis(6) SchizophreniaStatus: ChronicQualifiers:Schizophrenia type: unspecified Qualified Code(s): F20.9 - Schizophrenia, unspecified(7) Tobacco abuseStatus: Chronic(8) Alcohol abuseStatus: ChronicHistory of Present IllnessDate of Admission: 07/28/16Chief Complaint: BL LE infection, sent per PCPThe patient is a 56 y/o M w/ PMHx: EtOH abuse, HTN, COPD, Obesity, Tobacco use, Bipolardisorder, Schizophrenia, GERD who presents to the [facility] ED on 07/28/16 w/ BL LE chronic lymphedemawith chronic venous stasis w/ chronic compression hose usage with onset of redness and erythemaon the LLE specifically on the medial thigh and knee with also edema with no fever or chills.In the ED work-up included AF, VSS, CBC w/ WBC 6.7, Hgb 16, Plts 152 without marked L shift,ESR 25, BMP unremarkable, LA 1.5, CRP 22.70, plain film L knee w / diffuse soft tissue swellingand chronic changes only. In the ED patient administered morphine, clindamycin. Hospitalistcontacted for admission. Patient per report has had recent DVT study of his lower extremitiesand these per ED were reportedly negative.Past Medical HistoryPast Medical History (Chronic Problems):Chronic ProblemsAlcohol abuse (Chronic)COPD (chronic obstructive pulmonary disease) (Chronic)Obesity (BMI 30.0-34.9) (Chronic)Tobacco use (Chronic)Bipolar disorder (Chronic)GERD (gastroesophageal reflux disease) (Chronic)Low HDL (under 40) (Chronic)Schizophrenia (Chronic)Tobacco abuse (Chronic)Allergiescodeine Adverse Reaction (Verified 07/28/16 11:32)Upset Stomachhaloperidol [From Haldol] Adverse Reaction (Verified 07/28/16 11:32)Abd cramps/diarrheahaloperidol lactate [From Haldol] Adverse Reaction (Verified 07/28/16 11:32)Abd cramps/ diarrheaziprasidone Adverse Reaction (Verified 07/28/16 11:32)UnknownLACTATE Adverse Reaction ( Uncoded 07/28/16 11:32)UnknownHome Medications:Ambulatory OrdersMedication Instructions RecordedBenztropine [Cogentin] 1 mg PO QHS 02/18/15Cetirizine HCl [Allergy Relief] 10 ml PO DAILY 02/18/15Divalproex ( ER) [Depakote ER] 500 mg PO DAILY 02/18/15Lithium Carbonate [Kempton 600 mg PO DAILY 02/18/15Carbonate ER]Olanzapine [Zyprexa] 10 mg PO DAILY Omeprazole [Prilosec] 20 mg PO DAILY 02/18/15Spironolactone [Aldactone] 25 mg PO DAILY 02/18/15Surgical History: - - R knee surgery (s/p trauma), BL Inguinal Hernia Repairs, Cholecystectomy.Psychiatric History: Bipolar, SchizophreniaLives: AloneSmoking Status: Current every day smoker - 2 ppd.Tobacco Use: CigarettesAlcohol: Heavy - At least 4-5 beers per day.Drugs: None- *Family History MaternalHistory Items: Diabetes PaternalHistory Items: DiabetesReview of SystemsConstitutional: Reports: Fatigue. Denies: Chills, Fever, Weight ChangeHEENT: Denies: Head Aches, Sinus Congestion, Sinus DrainageCardiovascular: Reports: Edema. Denies: Chest Pain, PalpitationsRespiratory: Denies: Cough, Shortness of breath at rest, Sputum productionGastrointestinal: Denies: Abdominal Pain, Nausea, VomitingGenitourinary: Denies: DysuriaMusculoskeletal: Reports: Leg Pain. Denies: Joint Pain, Joint TendernessSkin: Reports: Skin Changes. Denies: Rash, WoundsNeurological: Denies: Numbness, Tingling, Focal weaknessPsychiatric: Reports: Anxiety, Depression. Denies: Homicidal Ideations, Suicidal IdeationsHematologic/ Lymphatic: Denies: Easy Bruising, Easy BleedingVTE Information - Inpt OnlyVTE Present on Admission: NoVTE Mechan Device Prophylaxis: SCD'sVTE Pharm Prophylaxis ordered?: YesSubjective:Seated upright in the ED bed, some tremoring, some mild agitation, notes no EtOH today, lastdrink evening prior.Objective:Physical Examination:General: awake, alert, oriented x 3 and cooperative, seated upright in ED bed, appears in earlyEtOH withdrawal.Skin: normal color, turgor, no icterus, cyanosis except mid-thigh circumferentially andmedially extending downward including knee, knee edema, region warm to touch, TTP, severe BL LEchronic venous stasis skin changes.HEENT: AT/NC, EOMI, PERRLA, mildly dry MM , no carotid bruits or JVD noted.Lungs: CTA bilaterally, moderate effort, moderate decrease BL bases, no rales, ronchi orwheezing.Heart: Regular rate and rhythm; no gallop, rub audible.Abdomen: soft, obese, NTTP, ND, normal BS, +HM.Extremities : no cyanosis, clubbing, see skin.Neurological: patient awake, alert, oriented x 3; cognitive function intact; pupils equallyreactive to light and accomodation; cranial nerves II-XII grossly normal, moving all 4extremities, no focal deficits, strength moderately globally decreased.Psychiatric: affect appears mildly agitated, last EtOH evening prior, no acute evidence ofdepressive or anxiety feelings.- Physical ExamVital SignsTemp Pulse Resp BP Pulse Ox97.5 F 90 15 131/ 11:30 07/28/16 11:30 07/28/16 11:30 07/28/16 11:30Weight: 203 lb 4.259 ozBody Mass Index (BMI) 30.9Laboratory Tests Past 24 Hrs07/28/16 07/28/1712:19 13:19 13:19WBC 6.7RBC 4.31 LHgb 16.0Hct 47.1MCV 109.3 HMCH 37.1 HMCHC 34.0RDW 15.4 HRDW Differential 61.5 HPlt Count 152MPV 9.1Immature Gran % (Auto) 0.300Neut % (Auto) 58.1Lymph % (Auto) 21.0Mono % (Auto) 13.7 HEos % (Auto) 6.5 HBaso % (Auto) 0.4Absolute Neuts (auto) 3.9Absolute Lymphs (auto) 1.41Total Counted Not ReportableESR 25 HSodium 139Potassium 4.5Chloride 104Carbon Dioxide 31.0Anion Gap 4 LBUN 3 LCreatinine 0.88Estim Creat Clear Calc 92.84Est GFR (MDRD) Af Amer 116Est GFR (MDRD) Non-Af 96BUN/Creatinine Ratio 3.4 LGlucose 76Lactic Acid 1.5Calcium 8.6C-React Prot Ext Range 22.70 HAssessment/PlanThe patient is a 56 y/o M w/ PMHx: EtOH abuse, HTN, COPD, Obesity, Tobacco use, Bipolardisorder, Schizophrenia, GERD who presents to the [facility] ED on 07/28/16 w/ BL LE chronic lymphedemawith chronic venous stasis w/ chronic compression hose usage with onset of redness and erythemaon the LLE specifically on the medial thigh and knee with also edema with no fever or chills.(1) LLE Extremity Cellulitis, L knee Edema complicated by BL Chronic LE Lymphedema and ChronicVenous Stasis: Will admit to MS, maintain on IV clindamycin given mild to moderate appearance,plan repeat CBC in AM, continue affected extremity elevation above heart when seated and in bed, monitor erythema outline with VS checks. Given involvement of knee with edema, will alsoconsult Dr. Smith, Orthopedic surgery. Will maintain BL snug RAYA wrap given chronic lymphedema, lasix 40 mg IV x 1 administered also w/ BL LE elevation. Given current appearance, alsoobtain DVT US LLE stat. Following these evaluations would benefit from possible PATRICE/PVR,Vascular assessment given BL LE appearance.(2) Chronic COPD: Will maintain on ATC duonebs, PRN albuterol, HOB, IS parameters.(3) Tobacco Abuse: Encouraged cessation, inpatient consultation per RT, NR if desired.(4) Obesity: Weight loss and lifestyle changes encouraged.(5) Bipolar disorder, schizophrenia: Maintain on home regimen zyprexa, lithium, depacote,cogentin.(6) GERD: Continue home regimen prilosec.(7) Hypertension: Continue home regimen including spironolactone, PRN hydralazine.(8) EtOH Abuse: Patient notes routine consumption of at least 4-5 beers per day. Will maintainon CIWA protocol, MVI, thiamine and folic acid.(9) DVT prophylaxis: SCDs, lovenox.07/28/16 1522 <Electronically signed by Annamaria Connor >Date Annamaria ConnorCosikp Signature (if applicable): Date CC: Annamaria Connor; Holden Oconnor MD Signed BEDSIDE GLUCOSE Collected: 07/28/2016 Status: F Source: JOSSE 3:09 PM [facility] REPOSITORY TYPE CODE TESTS RESULT OUT OF RANGE REFERENCE UNITS LAB L501.080 Normal 70-110 mg/dL BEDSIDE 71 GLU Result Comment: Policy and Physicians Orders followedMANAGEMENT OF PATIENT CARE PER NURSING PROTOCOL Performed By: #### L501.080 ####[facility] LaboratoryPoint of [address] [place] [address] BASIC METABOLIC Collected: 07/28/2016 Status: F Source: JOSSE PROFILE (BMP) 1:19 PM [facility] REPOSITORY TYPE CODE TESTS RESULT OUT OF RANGE REFERENCE UNITS LAB L501.0100 Normal 70-110 mg/dL GLU 76 LAB L501.1000 Low 7-18 mg/dL BUN 3 LAB L501.1100 Normal 0.70-1.30 mg/dL 0.88 CREAT,SERUM Result Comment: The validity of the calculated GFR AND GFRAA in patients over70 years has not been determined. Clinical correlation isessential. LAB L501.1110 Normal >60 mL/min EST GFR 96 Result Comment: Non- GFR Calc LAB L501.1115 Normal >60 mL/min EST GFR - 116 AA Result Comment: GFR Calc LAB L501.1255 Normal ml/min Estimated 92.84 CRCL LAB L501.1300 Low 10-20 RATIO BUN/CRE 3.4 LAB L501.2200 Normal 8.5-10 mg/dL CA 8.6 .1 LAB L501.5300 Normal 136-14 mmol/L NA 139 5 LAB L501.5600 Normal 3.5-5. mmol/L K 4.5 1 LAB L501.5900 Normal 98-107 mmol/L CL 104 LAB L501.6100 Normal 21.0-3 mmol/L CO2 31.0 2.0 LAB L501.6200 Low 5-15 GAP 4 Performed By: #### L500.2500, L501.6710, L100.0100, L101.9900 ####[facility] [address] [place], [place], [address] CRP Collected: 07/28/2016 Status: F Source: ANCHORAGE 1:19 PM [facility] REPOSITORY TYPE CODE TESTS RESULT OUT OF RANGE REFERENCE UNITS LAB L501.6710 High 0.0-3.0 mg/L 22.70 C-REACTIVE PROT Result Comment: C-Reactive Protein (CRP) provides useful information for thediagnosis, therapy and monitoring of inflammatory processesand associated diseases. For the evaluation of Relative Riskfor Cardiovascular Disease, a High Sensitivity CRP (HSCRP)should be ordered. Performed By: #### L500.2500, L501.6710, L100.0100, L101.9900 ####[facility] [address] [place], [place], [address] CBC W/DIFF, AUTOMATED Collected: 07/28/2016 Status: F Source: ANCHORAGE 1:19 PM [facility] REPOSITORY TYPE CODE TESTS RESULT OUT OF RANGE REFERENCE UNITS LAB L100.1000 Normal 4.4-11.0 K/mm3 WBC 6.7 LAB L100.1200 Low 4.6-6.2 M/mm3 RBC 4.31 LAB L100.1300 Normal 13.0-16.5 g/dl HGB 16.0 LAB L100.1400 Normal 40-54 % HCT 47.1 LAB L100.1500 High 80-94 fL MCV 109.3 LAB L100.1600 High 27.0-32.0 pg MCH 37.1 LAB L100.1700 Normal 32-36 g/gl MCHC 34.0 LAB L100.1810 High 11.6-14.6 % RDW 15.4 CV LAB L100.1820 High 35.1-43.9 fl RDW 61.5 SD LAB L100.1900 Normal 150-450 K/mm3 PLT 152 LAB L100.2000 Normal 6.2-12.0 fl MPV 9.1 LAB L100.2100 Normal 47-70 % NEUT% 58.1 LAB L100.2200 Normal 19-41 % LY% 21.0 LAB L100.2300 High 0-10 % MONO% 13.7 LAB L100.2400 High 0-5 % EO% 6.5 LAB L100.2500 Normal 0-1 % BASO% 0.4 LAB L100.2550 Normal 0.0-0.9 % IM 0.300 GRAN % Result Comment: IG% - Immature Granulocytes (promyelocytes, myelocytes andmetamyelocytes) > 1% indicates that a LEFT SHIFT is Present. LAB L100.2620 Normal 2.0-7.7 X10 3/uL Absolute Neut 3.9 LAB L100.2720 Normal 0.83-4.51 X10 3/ul Absolute Lymph 1.41 Performed By: #### L500.2500, L501.6710, L100.0100, L101.9900 ####[facility] [address] [place], [place], [id number] ERYTHROCYTE SED RATE Collected: 07/28/2016 Status: F Source: ANCHORAGE 1:19 PM [facility] REPOSITORY TYPE CODE TESTS RESULT OUT OF RANGE REFERENCE UNITS LAB L102.0000 High 0-20 mm/hr SED 25 RATE Performed By: #### L500.2500, L501.6710, L100.0100, L101.9900 ####[facility] [address] [place], [address] LACTIC ACID Collected: 07/28/2016 Status: F Source: ANCHORAGE 1:19 PM [facility] REPOSITORY TYPE CODE TESTS RESULT OUT OF RANGE REFERENCE UNITS LAB L503.6005 Normal 0.4-2.0 mmol/L LACTIC 1.5 ACID Performed By: #### L503.6005 ####[facility] [address] [place], [address] MAGNESIUM Collected: 07/28/2016 Status: F Source: ANCHORAGE 1:19 PM [facility] REPOSITORY TYPE CODE TESTS RESULT OUT OF RANGE REFERENCE UNITS LAB L501.5200 High 1.8-2.4 mg/dL MG 2.7 Performed By: #### L501.5200 ####[facility] [address] [place], [address] PHOSPHORUS Collected: 07/28/2016 Status: F Source: ANCHORAGE 1:19 PM [facility] REPOSITORY TYPE CODE TESTS RESULT OUT OF RANGE REFERENCE UNITS LAB L501.2300 Normal 2.5-4.9 mg/dL PHOS 4.6 Performed By: #### L501.2300 ####[facility] [address] [place], [address] KNEE 4 OR MORE Observed: 07/28/2016 Status: F Source: JOSSE VIEWS 11:49 AM [facility] REPOSITORY [facility]ENTERIm[facility] [address] [place], [place] [address]Rukixcl 4dKnee 4 or More ViewsMR#: [id number] Acct: [id number]: TONY ARIZA Rep #: [id number]: 1960 M 56 From: Anuj Fernandez MDPCP: Holden Oconnor MD Status: REG ERStudy: Knee 4 or More Views Date of Exam: 07/28/16Exam# [id number] Ordering Dr: Fabio Ortiz MDSTUDY: X-RAY - LEFT KNEEREASON FOR EXAM: Male, 56 years old. Possible infection.TECHNIQUE: 4 view(s) of the knee.COMPARISON: None. FINDINGS:Normal visualized distal femur. Normal visualized proximal tibia andfibula. Normal proximal tibiofibular articulation.Normal medial femorotibial compartment. Normal lateral femorotibialcompartment. Normal patellofemoral articulation. Degenerative spur alongthe superior anterior aspect of the patella.Diffuse soft tissue swelling. ORDER #: [id number] RAD/Knee 4 or More ViewsIMPRESSION:Diffuse soft tissue swelling.Degenerative spur along the superior anterior aspect of the patella.Electronically Signed:Anuj Fernandez MD2016 at 14:33 EDTTel [phone], Service support , ER : Holden Oconnor MD; Fabio Ortiz MD [employer]:Signed PROGRESS Observed: 07/28/2016 Status: COMPLETED Source: [place] 11:31 AM [facility] REPOSITORY HNO ID: [id number]: Amanuel (Steve) JesilechtyService: (none)Author Type: Social WorkerType: Progress NotesFiled: 08/29/2016 1:25 PMNote Text:Steve met with patient due to request of home health aide. Patient reportsthat he receives services from [facility] and Ernie Nam,counselor brought patient to appointment today. Patient requesting moreassistance in home for help with personal care.[facility] Waiver form has place for patient signature on form. Pat see about following up with patient when he returns to follow [facility] visit. Please let me know when patient is in next to [facility] sign waiver form. Patient reports having Medicare and Medicaid coverage. No listing ofhaving Medicaid managed care plan. Sw also had patient sign consent [facility] with [facility] to help with coordination of care. 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 Nam will assist patient to [facility] for assessment due to swelling oflegs and redness. CNPINKY Observed: 07/28/2016 Status: COMPLETED Source: [place] 10:40 AM [facility] REPOSITORY Office Visit (FAMPWS) ---------TONY ARIZA ([id number]) 1960 MDate Time Provider Department07/28/16 10:40 AM HOLDEN GOMEZ (LIZA) FAMPWS During your visit today, we recorded the following information about you: Temperature Pulse Respiration Blood pressure 98.6 degrees 107/minute 18/minute 115/70 Weight 89.8 kgHolden Estrada CNP 07/28/2016 5:13 PM SignedChief ComplaintNo chief complaint on file.Diamond Ariza is a 56 year old male who presents here [facility]. Patient states [facility] to him he may be in need of a HAZMAT CDL DRIVER and or a visiting nurse.Patient states he has been having a lot more pain and swelling in his legsrecently. Patient was seen in Apr and had trace edema in his legs. States hehas had a hard time dressing himself and putting his compression stockings on.He states he also has had a hard time remembering to take his medications inthe morning. Patient states he feels like he has been SOB at night and iswaking up gasping. Patient will then go out to the recliner to sleep.[place] on [place] 2[place] by himself at an assistedliving facility but lives in the independent part.Removed compression stockings to both legs. Patient has redness, swelling andpurple colored skin. Left leg has swelling and redness up to mid thigh. Warm totouch. Foot and toes bright red and warm. Unable to palpate pulses. Cap refillis brisk. Right leg swelling is pedal to pretibial. Both legs have a deeppurple color as well pretibial to the top of his feet.Past medical history, appointments, medications, allergies reviewed.Previous Medical HistoryPAST MEDICAL HISTORYDiagnosis Date- Abnormal US (ultrasound) of abdomen- COPD (chronic obstructive pulmonary disease) (HCC)- Diarrhea- GERD (gastroesophageal reflux disease)- Inguinal hernia, right- Lower extremity edema- Nonspecific elevation of levels of transaminase or lactic acid dehydrogenase( LDH)- Onychomycosis- Paranoid schizophrenia, chronic condition (HCC) Seeing Dr. Negron- Tobacco use disorder- Vomiting alonePrevious Surgical HistoryPAST SURGICAL HISTORY06/25/09: EGD W/O BRSH SPECIMEN [id number]: HERNIA REPAIR HX Comment: bilateral [id number]: LAPAROSCOPIC CHOLEYCYSTECTOMY Comment: Cholecystectomy, lapNo date: PAST SURGICAL HISTORY OF Comment: right knee surgeryNo date: REPAIR ING HERNIA,5+Y/O,REDUCIBL Comment: Hernia repair, inguinalFamily HistoryFAMILY HISTORY Alcohol/Drug Father Comment: alcoholism Diabetes Mother Comment: diet controlled Alcohol/Drug Mother Arthritis Sister Alcohol/Drug Sister Diabetes Maternal Grandfather Heart Paternal GrandfatherPatient AllergiesALLERGIESAllergen Reactions- Codeine Intolerance- Ziprasidone Intolerance- Haldol [Haloperidol* Intolerance severe muscle contractions- Lactate UnknownCurrent MedicationsCurrent Outpatient Prescriptions on File Prior to Visit:omeprazole (PRILOSEC) 20 mg capsule Take 1 capsule by mouth twice daily.fluconazole ( DIFLUCAN) 100 mg tablet Take 2 tablets PO daily x1 day, then take1 tablet PO daily x7 daysalbuterol HFA (VENTOLIN HFA) 90 mcg/actuation inhaler Inhale 2 Puffs asinstructed every 4 hours as needed for Wheezing/Shortness of Breath.melatonin 1 mg tab Take 1 tablet by mouth daily at bedtime.spironolactone (ALDACTONE) 25 mg tablet Take 1 tablet by mouth once daily.cholestyramine low-calorie ( CHOLESTYRAMINE LIGHT) 4 gram packet Use 1 packet injuice daily for diarrhea.triamcinolone acetonide (KENALOG ) 0.1 % cream Apply 1 application to affectedarea once daily. to legsOLANZapine (ZYPREXA) 10 mg tablet Take 1 tablet by mouth twice daily. 20 mg atnight and 10 mg in the morninglithium 300 mg ORAL capsule Take 2 capsules at bedtime.fluphenazine deconoate 25 mg/mL INJECTION injection inject 1ml IM every 2 weeksdivalproex sodium(DEPAKOTE ER 500 MG 24 HR TAB) two tablets at 8 am and 2tablets at bedtimeBENZTROPINE 1 MG TAB one po q amNo current facility-administered medications on file prior to visit.Social HistorySocial History Marital status: Spouse name: Years of education: Number of children: 2Social History Main Topics Smoking status: Current Every Day Smoker Packs/day: 2.00 Years: 35.00 Types: Cigarettes Smokeless status: Never Used Alcohol use: Yes 21.0 oz/week 14 Cans of Beer (12oz) per week Drug use: No Sexual activity: Yes Partners with: FemaleReview of SymptomsREVIEW OF SYSTEMSGENERAL: No weight loss , malaise or feversRESPIRATORY: Cough and SOB at night.CARDIOVASCULAR: Denies, CP or palpitations. Has bilateral leg swelling.SKIN: See HPIEXAM:BP 115/70 Pulse 107 Temp 36.8 ?C (98.2 ?F) ( Left Tympanic) Resp 18 Wt89.8 kg (198 lb) BMI 30.55 kg/r1Ybnhzyi Appearance: Well appearing, alert, in no acute distress, well-hydrated,well nourished., Obese.Ears: External ears normal, canals clear.Oropharynx: Lips, mucosa, and tongue normal, teeth and gums normal, oropharynxnormal.Lungs : Lungs clear to auscultation. No wheezing, rhonchi, rales.Heart: RRR without murmur, gallop, or rubs. No ectopy.Abdomen: Normal abdominal exam, Abdomen soft, non-tender. Bowel sounds normal.No masses, organomegaly.Extremities: Removed compression stockings to both legs. Patient has redness,swelling and purple colored skin. Left leg has swelling and redness up to midthigh. Warm to touch. Foot and toes bright red and warm. Unable to palpatepulses. Cap refill is brisk. Right leg swelling is pedal to pretibial. Bothlegs have a deep purple color as well pretibial to the top of his feet.ASSESSMENT/PLAN:1. Cellulitis of left lower extremity - ICD9: 682.6, ICD10 : L03.116 (primarydiagnosis)- Will send to [facility] ER for evaluation. Spoke with Attending Beka and gavehandoff.- Follow up for recheck once discharged from hospital.2. Difficulty breathing - ICD9: 786.09, ICD10: R06.89- Will do sleep study. Will set up after hospital stay.- POLYSOMNOGRAM (PSG)/HOME SLEEP TEST (HST)Follow up after D/C from hospital.Pineda Narayanan CNP 07/28/2016 11:16 AM SignedGo to [facility] for evaluation.Referring Provider: SELF [[id number]] Allergies As of Date: 07/28/2016 Noted Allergy ReactionCODEINE 02/14 5 - IntoleranceZIPRASIDONE 02/14/2005 5 - IntoleranceHALDOL (HALOPERIDOL LACTATE) 02/14/2005 5 - Intolerance Comments: severe muscle contractionsLACTATE 01/15/2013 16 - UnknownDate Reviewed: 07/28/2016Reviewed by: Becca Silva Ma - Fully AssessedPrimary Visit Diagnosis:Cellulitis of left lower extremity [L03.116] Other Visit Diagnosis:Difficulty breathing [R06.89]Order(s):POLYSOMNOGRAM (PSG)/HOME SLEEP TEST (HST) [2415743] Order #: [id number] FUTUREPrescriptions as of 07/28/2016 Sig: OMEPRAZOLE 20 MG CAPSULE,KHANH* Take 1 capsule by mouth twice* FLUCONAZOLE 100 MG TABLET Take 2 tablets PO daily x1 da* ALBUTEROL SULFATE HFA 90 MCG/* Inhale 2 Puffs as instructed * MELATONIN 1 MG TABLET Take 1 tablet by mouth daily * SPIRONOLACTONE 25 MG TABLET Take 1 tablet by mouth once d* CHOLESTYRAMINE-ASPARTAME 4 GR* Use 1 packet in juice daily f * TRIAMCINOLONE ACETONIDE 0.1 %* Apply 1 application to affect* OLANZAPINE 10 MG TABLET Take 1 tablet by mouth twice * LITHIUM CARBONATE 300 MG CAPS* Take 2 capsules at bedtime. FLUPHENAZINE DECANOATE 25 MG/* inject 1ml IM every 2 weeks DEPAKOTE ER 500 MG TABLET,EXT * two tablets at 8 am and 2 tab* BENZTROPINE 1 MG TABLET one po q amProblem List As Of Date 07/28/2016 Noted Resolved TOBACCO USE DISORDER [F17.200] More... 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 Diarrhea [R19.7] 2011 Vomiting alone [R11.11] INVALID FOR*07/26/2011 Nonsp Abn Find-Body NEC [R93.8] INVALID FOR* Esophagitis [K20.9] INVALID FOR* More... COPD (chronic obstructive pulmonary disease) [J*INVALID FOR* More... GERD ( gastroesophageal reflux disease) [K21.9] INVALID FOR* More... Costochondritis [M94.0] INVALID FOR* Inguinal hernia right unilateral INVALID FOR* Nonspecific elevation of levels of transaminase* Abnormal US (ultrasound) of abdomen [R93.5] Onychomycosis [ B35.1] INVALID FOR* Pes planus of both feet [M21.41, M21.42] INVALID FOR* Lower extremity edema [R60.0] Other instructions from your clinician: Go to [facility] ER for evaluation. Status:Closed by HOLDEN ESTRADA CNP on 07/28/16 PROGRESS Observed: 07/28/2016 Status: COMPLETED Source: [place] 10:18 AM [facility] REPOSITORY HNO ID: [id number]: Holden Almonte) CourtService : (none)Author Type: Nurse PractitionerType: Progress NotesFiled: 07/28/2016 5:13 PMNote Text:Chief ComplaintNo chief complaint on file.Diamond Ariza is a 56 year old male who presents here today forevaluation of home health nurse. [facility] and they mentioned to him he may be in need of a HAZMAT CDL DRIVER andor a visiting nurse. Patient states he has been having a lot more pain andswelling in his legs recently. Patient was seen in Apr and had trace edemain his legs. States he has had a hard time dressing himself and puttinghis compression stockings on. He states he also has had a hard timeremembering to take his medications in the morning. Patient states hefeels like he has been SOB at night and is waking up gasping. Patient willthen go out to the recliner to sleep.[place] lives [place] on [place] 2[place] floor by himself at an assistedliving facility but lives in the independent part.Removed compression stockings to both legs. Patient has redness, swellingand purple colored skin. Left leg has swelling and redness up to midthigh. Warm to touch. Foot and toes bright red and warm. Unable to palpatepulses. Cap refill is brisk. Right leg swelling is pedal to pretibial.Both legs have a deep purple color as well pretibial to the top of hisfeet.Past medical history, appointments, medications, allergies reviewed.Previous Medical HistoryPAST MEDICAL HISTORYDiagnosis Date- Abnormal US (ultrasound) of abdomen- COPD (chronic obstructive pulmonary disease) (HCC)- Diarrhea- GERD (gastroesophageal reflux disease)- Inguinal hernia, right- Lower extremity edema- Nonspecific elevation of levels of transaminase or lactic aciddehydrogenase (LDH)- Onychomycosis- Paranoid schizophrenia, chronic condition (HCC) Seeing Dr. Negron- Tobacco use disorder- Vomiting alonePrevious Surgical HistoryPAST SURGICAL HISTORY06/25/09: EGD W/O BRSH SPECIMEN [id number]: HERNIA REPAIR HX Comment: bilateral [id number]: LAPAROSCOPIC CHOLEYCYSTECTOMY Comment: Cholecystectomy, lapNo date: PAST SURGICAL HISTORY OF Comment: right knee surgeryNo date: REPAIR ING HERNIA,5+Y/O,REDUCIBL Comment: Hernia repair, inguinalFamily HistoryFAMILY HISTORY Alcohol/Drug Father Comment: alcoholism Diabetes Mother Comment: diet controlled Alcohol/Drug Mother Arthritis Sister Alcohol/ Drug Sister Diabetes Maternal Grandfather Heart Paternal GrandfatherPatient AllergiesALLERGIESAllergen Reactions- Codeine Intolerance- Ziprasidone Intolerance- Haldol [Haloperidol* Intolerance severe muscle contractions- Lactate UnknownCurrent MedicationsCurrent Outpatient Prescriptions on File Prior to Visit:omeprazole (PRILOSEC) 20 mg capsule Take 1 capsule by mouth twice daily.fluconazole (DIFLUCAN) 100 mg tablet Take 2 tablets PO daily x1 day, thentake 1 tablet PO daily x7 daysalbuterol HFA (VENTOLIN HFA) 90 mcg/actuation inhaler Inhale 2 Puffs asinstructed every 4 hours as needed for Wheezing/Shortness of Breath.melatonin 1 mg tab Take 1 tablet by mouth daily at bedtime.spironolactone (ALDACTONE) 25 mg tablet Take 1 tablet by mouth once daily.cholestyramine low-calorie ( CHOLESTYRAMINE LIGHT) 4 gram packet Use 1packet in juice daily for diarrhea.triamcinolone acetonide (KENALOG) 0.1 % cream Apply 1 application toaffected area once daily. to legsOLANZapine (ZYPREXA) 10 mg tablet Take 1 tablet by mouth twice daily. 20mg at night and 10 mg in the morninglithium 300 mg ORAL capsule Take 2 capsules at bedtime.fluphenazine deconoate 25 mg/mL INJECTION injection inject 1ml IM every 2weeksdivalproex sodium(DEPAKOTE ER 500 MG 24 HR TAB) two tablets at 8 am and 2tablets at bedtimeBENZTROPINE 1 MG TAB one po q amNo current facility- administered medications on file prior to visit.Social HistorySocial History Marital status : Spouse name: Years of education: Number of children: 2Social History Main Topics Smoking status: Current Every Day Smoker Packs/day: 2.00 Years: 35.00 Types: Cigarettes Smokeless status: Never Used Alcohol use: Yes 21.0 oz/week 14 Cans of Beer (12oz) per week Drug use: No Sexual activity: Yes Partners with: FemaleReview of SymptomsREVIEW OF SYSTEMSGENERAL: No weight loss, malaise or feversRESPIRATORY : Cough and SOB at night.CARDIOVASCULAR: Denies, CP or palpitations. Has bilateral leg swelling.SKIN: See HPIEXAM:BP 115/70 Pulse 107 Temp 36.8 ?C (98.2 ?F) (Left Tympanic) Resp 18 Wt 89.8 kg (198 lb) BMI 30.55 kg/p1Mhnncdg Appearance: Well appearing, alert, in no acute distress,well-hydrated, well nourished., Obese.Ears: External ears normal, canals clear.Oropharynx: Lips, mucosa, and tongue normal , teeth and gums normal,oropharynx normal.Lungs: Lungs clear to auscultation. No wheezing, rhonchi, rales.Heart: RRR without murmur, gallop, or rubs. No ectopy.Abdomen: Normal abdominal exam, Abdomen soft, non-tender. Bowel soundsnormal. No masses, organomegaly.Extremities: Removed compression stockings to both legs. Patient hasredness, swelling and purple colored skin. Left leg has swelling andredness up to mid thigh. Warm to touch. Foot and toes bright red and warm.Unable to palpate pulses. Cap refill is brisk. Right leg swelling is pedalto pretibial. Both legs have a deep purple color as well pretibial to thetop of his feet.ASSESSMENT/PLAN:1. Cellulitis of left lower extremity - ICD9: 682.6, ICD10: L03.116(primary diagnosis)- Will send to [facility] ER for evaluation. Spoke with Attending Beka and gavehandoff.- Follow up for recheck once discharged from hospital.2. Difficulty breathing - ICD9: 786.09, ICD10: R06.89- Will do sleep study. Will set up after hospital stay.- POLYSOMNOGRAM (PSG)/HOME SLEEP TEST (HST)Follow up after D/C from hospital.Holden Estrada CNP CNSMary Observed: 07/28/2016 Status: COMPLETED Source: [place] 12:00 AM [facility] REPOSITORY Social Work (LUNAWST) ---------TONY ARIZA ([id number]) 1960 MDate Time Provider Department07/28/16 AMANUEL AIKEN (SW) During your visit today, we recorded the following information about you:CAMRYN Ayala 08/29/2016 1: 25 PM SignedSw met with patient due to request of home health aide. Patient reports that [facility] and Ernie Nam, counselorbrought patient to appointment today. Patient requesting more assistance inhome for help with personal care.[facility] Waiver form has place for patient signature on form. Steve will seeabout following up with patient when he returns to follow up after hospitalvisit. Please let me know when patient is in next to have him sign waiver form. Patient reports having Medicare and Medicaid coverage. No listing of havingMedicaid managed care plan. Sw also had patient sign [facility]. Patient reports that current casemanager is out on leave.Mr. Nam will assist patient to [facility] for assessment due to swelling of legsand redness.CAMRYN Ayala 08/29/2016 1:25 PM SignedMedicaid Waiver Home Care form in Jewel Estrada NP office for patientsignature when in for follow up.CAMRYN Ayala 08/29/2016 1:25 PM SignedSw will meet with patient 08/29/16 when in to see Dr. Oconnor to sign medicaidwaiver form.Allergies As of Date: 07/28/2016 Noted Allergy ReactionCODEINE 02/14/2005 5 - IntoleranceZIPRASIDONE 5 - IntoleranceHALDOL (HALOPERIDOL LACTATE) 02/14/2005 5 - Intolerance Comments: severe muscle contractionsLACTATE 01/15/2013 16 - UnknownDate Reviewed: 07/28/2016Reviewed by: Becca Silva Ma - Fully AssessedPrescriptions as of 07/28/2016 Sig: OMEPRAZOLE 20 MG CAPSULE,KHANH* Take 1 capsule by mouth twice* FLUCONAZOLE 100 MG TABLET Take 2 tablets PO daily x1 da*X ALBUTEROL SULFATE HFA 90 MCG/* Inhale 2 Puffs as instructed * MELATONIN 1 MG TABLET Take 1 tablet by mouth daily * SPIRONOLACTONE 25 MG TABLET Take 1 tablet by mouth once d*X CHOLESTYRAMINE-ASPARTAME 4 GR* Use 1 packet in juice daily f* TRIAMCINOLONE ACETONIDE 0.1 %* Apply 1 application to affect* OLANZAPINE 10 MG TABLET Take 1 tablet by mouth twice * LITHIUM CARBONATE 300 MG CAPS* Take 2 capsules at bedtime. FLUPHENAZINE DECANOATE 25 MG/* inject 1ml IM every 2 weeks DEPAKOTE ER 500 MG TABLET,EXT* two tablets at 8 am and 2 tab* BENZTROPINE 1 MG TABLET one po q amProblem List As Of Date 07/28/2016 Noted Resolved TOBACCO USE DISORDER [F17.200] More... 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 Diarrhea [R19.7] 07/26/2011 Vomiting alone [R11.11] INVALID FOR*2011 Nonsp Abn Find-Body NEC [R93.8] INVALID FOR* Esophagitis [K20.9] INVALID FOR* More... COPD (chronic obstructive pulmonary disease) [J* INVALID FOR* More... GERD (gastroesophageal reflux disease) [K21.9] INVALID FOR* More... Costochondritis [M94.0] INVALID FOR* Inguinal hernia right unilateral INVALID FOR* Nonspecific elevation of levels of transaminase* Abnormal US (ultrasound) of abdomen [R93.5] Onychomycosis [B35.1] INVALID FOR* Pes planus of both feet [M21.41, M21.42] INVALID FOR* Lower extremity edema [R60.0]Follow-up and Disposition History RecordedEncounter Number: [id number] Status:Closed by AMANUEL DAMON on 08/29/16 PROGRESS Observed: 06/23/2016 Status: COMPLETED Source: [place] 2:20 PM [facility] REPOSITORY HNO ID: [id number]: Jean Pierre TestraDaisyervice: (none) Author Type: PhysicianType: Progress NotesFiled: 06/23/2016 4:04 PMNote Text: Subjective: Patient presents to clinic c/o painful toenails. They statethat the nails are especially painful with shoe gear and pressure.Patient states that nails 1-5 b/ l are painful. Patient complains ofswelling of his legs that he will support stockings at times. No otherpedal complaints at this time.Patient states no change in medications or medical history since lastvisit.Objective: [facility] DP and PT pulses are nonpalpable bilateral. CFT is less than 7seconds bilateral. Skin temperature is warm to cool proximal to distalbilateral. There is ++ edema or varicosities noted.Neuro: Protective sensation is absent to the foot and toes when testedwith the 5.07 SWM bilateral. Vibratory sensation is absent at the halluxIPJ bilateral. The hallux is downgoing bilateral.Derm: Nails 1-5 b/l are painful, discolored-yellow, thick, crumbly,dystrophic and with subungal debris. Skin is of normal turgor, textureand hair growth is absent bilateral. There are no hyperkeratosis,ulcerations, scars, verruca or other lesions noted.Ortho: Muscle strength is 5/5 for all pedal groups tested. Ankle joint DFis decreased with the knee extended with no pain or crepitus noted. 1stMPJ ROM is decreased bilateral.Assessment:(B35.1) Onychomycosis ( primary encounter diagnosis)(M79.675) Pain in toe of left foot(M79.674) Pain in toe of right foot(I87.2) Venous (peripheral) insufficiency(I73.9) PAD (peripheral artery disease) (HCC)Plan:Patient was seen and evaluated.Nails 1-5 bilateral were debrided in length and thickness.Patient encouraged to continue with compression stockings, lightlyapplied. Patient is to RTC in 3-4 months.Jean Pierre Voss DPM CNOV Observed: 06/23/2016 Status: COMPLETED Source: [place] 1:40 PM [facility] REPOSITORY Office Visit (PODIWS) ---------TONY ARIZA ([id number]) 1960 [facility] Time Provider Department06/23/16 1:40 PM JEAN PIERRE VOSS PODIWS During your visit today, we recorded the following information about you:Jean Pierre Voss DPM 06/23/2016 4:04 PM SignedSubjective: Patient presents to clinic c/o painful toenails. They state thatthe nails are especially painful with shoe gear and pressure. Patient statesthat nails 1-5 b /l are painful. Patient complains of swelling of his legs thathe will support stockings at times. No other pedal complaints at this time.Patient states no change in medications or medical history since last visit.Objective: Patient presents to clinic ambulating in sneakersVasc: DP and PT pulses are nonpalpable bilateral. CFT is less than 7 secondsbilateral. Skin temperature is warm to cool proximal to distal bilateral.There is ++ edema or varicosities noted.Neuro: Protective sensation is absent to the foot and toes when tested with the5.07 SWM bilateral. Vibratory sensation is absent at the hallux IPJ bilateral. The hallux is downgoing bilateral.Derm: Nails 1-5 b/ l are painful, discolored-yellow, thick, crumbly, dystrophicand with subungal debris. Skin is of normal turgor, texture and hair growth isabsent bilateral. There are no hyperkeratosis, ulcerations, scars, verruca orother lesions noted.Ortho: Muscle strength is 5/5 for all pedal groups tested. Ankle joint DF isdecreased with the knee extended with no pain or crepitus noted. 1st MPJ ROMis decreased bilateral.Assessment:(B35.1) Onychomycosis (primary encounter diagnosis)( M79.675) Pain in toe of left foot(M79.674) Pain in toe of right foot(I87.2) Venous (peripheral) insufficiency(I73.9) PAD (peripheral artery disease) ([facility])Plan:Patient was seen and evaluated.Nails 1-5 bilateral were debrided in length and thickness.Patient encouraged to continue with compression stockings, lightly applied. Patient is to RTC in 3-4 months.Jean Pierre Voss, SHELDONMReferring Provider: SELF [200]Allergies As of Date: 06/23/2016 Noted Allergy ReactionCODEINE 02/14/2005 5 - IntoleranceZIPRASIDONE 02/14/2005 5 - IntoleranceHALDOL (HALOPERIDOL LACTATE) 02/14/2005 5 - Intolerance Comments: severe muscle contractionsLACTATE 01/15/2013 16 - UnknownDate Reviewed: 06/23/2016Reviewed by: Urmila Arredondo Ma - Fully AssessedReason for Visit: nail care [Other]Primary Visit Diagnosis: Onychomycosis [B35.1] Other Visit Diagnoses:Pain in toe of left foot [M79.675] Pain in toe of right foot [M79.674] Venous (peripheral) insufficiency [I87.2] PAD (peripheral artery disease) ([facility]) [I73.9]Prescriptions as of 06/23/2016 Sig: OMEPRAZOLE 20 MG CAPSULE,KHANH* Take 1 capsule by mouth twice* FLUCONAZOLE 100 MG TABLET Take 2 tablets PO daily x1 da* ALBUTEROL SULFATE HFA 90 MCG/* Inhale 2 Puffs as instructed * MELATONIN 1 MG TABLET Take 1 tablet by mouth daily * SPIRONOLACTONE 25 MG TABLET Take 1 tablet by mouth once d* CHOLESTYRAMINE-ASPARTAME 4 GR* Use 1 packet in juice daily f * TRIAMCINOLONE ACETONIDE 0.1 %* Apply 1 application to affect* OLANZAPINE 10 MG TABLET Take 1 tablet by mouth twice * LITHIUM CARBONATE 300 MG CAPS* Take 2 capsules at bedtime. FLUPHENAZINE DECANOATE 25 MG/* inject 1ml IM every 2 weeks DEPAKOTE ER 500 MG TABLET,EXT * two tablets at 8 am and 2 tab* BENZTROPINE 1 MG TABLET one po q amProblem List As Of Date 06/23/2016 Noted Resolved TOBACCO USE DISORDER [F17.200] More... 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 Diarrhea [R19.7] 2011 Vomiting alone [R11.11] INVALID FOR*07/26/2011 Nonsp Abn Find-Body NEC [R93.8] INVALID FOR* Esophagitis [K20.9] INVALID FOR* More... COPD (chronic obstructive pulmonary disease) [J*INVALID FOR* More... GERD ( gastroesophageal reflux disease) [K21.9] INVALID FOR* More... Costochondritis [M94.0] INVALID FOR* Inguinal hernia right unilateral INVALID FOR* Nonspecific elevation of levels of transaminase* Abnormal US (ultrasound) of abdomen [R93.5] Onychomycosis [ B35.1] INVALID FOR* Pes planus of both feet [M21.41, M21.42] INVALID FOR* Lower extremity edema [R60.0] Status:Closed by JEAN PIERRE VOSS DPM on 06/23/16 COMP METABOLIC PANEL Collected: 06/15/2016 Status: F Source: [place] 10:25 AM [facility] REPOSITORY TYPE CODE TESTS RESULT OUT OF REFERENCE UNITS RANGE LAB TP 6.3-8.0 g/dL Protein, Total 8.0 LAB ALB Low 3.9-4.9 g/dL Albumin 3.8 LAB CA Low 8.5-10.2 mg/dL Calcium, Total 8.2 LAB TBIL 0.2-1.3 mg/dL Bilirubin, 0.5 Total LAB ALKP 36-108 U/L Alkaline 71 Phosphatase LAB AST 14-40 U/L AST 23 LAB GLU 74-99 mg/dL Glucose 78 Result Comment: The English Diabetes Association (ADA) provides guidance for cutoff values for fasting glucose and random glucose. The ADA defines fasting as no caloric intake for at least 8 hours. Fasting plasma glucose results between 100 to 125 mg/dL indicate increased risk for diabetes (prediabetes).Fasting plasma glucose results greater than or equal to 126 mg/dL meet the criteria for diagnosis of diabetes. In the absence of unequivocal hyperglycemia, results should be confirmed by repeat testing. In a patient with classic symptoms of hyperglycemia or hyperglycemic crisis, random plasma glucose results greater than or equal to 200 mg/dL meet the criteria for diagnosis of diabetes.Reference: Standards of Medical Care in Diabetes 2016 , English Diabetes Association. Diabetes Care. 2016.39(Suppl 1). LAB BUN Low 9-24 mg/dL BUN 2 LAB CRET 0.73-1.22 mg/dL Creatinine 0.93 LAB NA 136-144 mmol/L Sodium 140 LAB K 3.7-5.1 mmol/L Potassium 4.9 LAB CL 97-105 mmol/L Chloride 101 LAB CO2 22-30 mmol/L CO2 28 LAB AGAP 9-18 mmol/L Anion Gap 11 LAB ALT 10-54 U/L ALT 11 LAB GFRAA eGFR- Amer. >60 LAB GFRNAA . eGFR-All Other Races >60 Result Comment: eGFR (Estimated GFR) Units of measure: mL/min/1.73 meters squaredeGFR is derived from the reexpressed MDRD Study equation using the following parameters: serum creatinine, age, gender and race. The creatinine assay has been calibrated to be traceable to IDMS.An eGFR <60 mL/min/1.73m2 for >3 months is consistent with chronic kidney disease. Refer to KDOQI guidelines for clinical interpretation.In patients with unstable renal function, e.g. those with acute kidney injury, the eGFR may not accurately reflect actual GFR. Performed By: #### CMP, LIPB, PSA, HCQPCR ####[facility] [place], [place] [phone] LIPID PANEL, BASIC Collected: 06/15/2016 Status: F Source: [place] 10:25 AM [facility] REPOSITORY TYPE CODE TESTS RESULT OUT OF REFERENCE UNITS RANGE LAB TRIGLY High 30-149 mg/dL Triglyceride 357 LAB CHOL 100-199 mg/dL Cholesterol 186 LAB HDL Low >45 mg/dL HDL-Cholesterol 30 LAB VLDL High 6-40 mg/dL VLDL Cholesterol 71 LAB LDL 60-129 mg/dL LDL-Cholesterol 85 LAB FT hrs Fasting Time 16 LAB TCHDL High 1.00-5.00 TC:HDL Ratio 6.20 LAB LDLHDL 0.50-3.55 LDL:HDL Ratio 2.83 LAB NONHDL 90-159 mg/dL Non HDL 156 Cholesterol Performed By: #### CMP, LIPB, PSA, HCQPCR ####[place] [id number] [place], [place] [phone] PSA, DIAGNOSTIC Collected: 06/15/2016 Status: F Source: [place] 10:25 AM [facility] REPOSITORY TYPE CODE TESTS RESULT OUT OF REFERENCE UNITS RANGE LAB PSA 0.00-2.59 ng/mL PSA, 2.00 Diagnostic Result Comment: Total PSA test methodology used is the Electrochemiluminescence Immunoassay. Performed By: #### CMP, LIPB, PSA, HCQPCR ####[place] [id number] [place], [place] [phone] HEPATITIS C RNA Collected: 06/15/2016 Status: F Source: [place] 10:25 [facility] REPOSITORY TYPE CODE TESTS RESULT OUT OF REFERENCE UNITS RANGE LAB HCQPCR IU/mL Hepatitis C HCV RNA RNA not detected by PCR. Result Comment: Reference Range: Negative for HCV RNAThe Linear Range of this assay is 15 IU/mL to 100,000,000 IU/mL. Performed By: #### CMP, LIPB, PSA, HCQPCR ####[place] [id number] [place], [place] [phone] OBSOLETE Observed: 06/01/2016 Status: COMPLETED Source: [place] 12:00 [facility] REPOSITORY Refill (FAMPWS) ---------TONY ARIZA ([id number]) 1960 MDate Time Provider Department06/01/16 HOLDEN OCONNOR) POLIPWS During your visit today, we recorded the following information about you:Rajat Irving PharmD 06/02/2016 9:01 AM SignedPharmacist Refill Authorization ReviewName: Tony ArizaMRN: [id number]: 06/02/2016Time: 8:59 AMRefill authorization request(s) received via pharmacy request and reviewedunder effective consult agreement. Upon review, did confirm that an activepatient-provider relationship exists and that the prescriber is a participatingphysician under the consult agreement.The medication(s) fall under the following categories:Category 1: 1 corresponding medication(s) qualifies for renewal due to up todate labs and provider visits.Additional actions taken: Prescription(s) issued.Manny SherwoodDPharmacy Managed Authorization CenterPhone Current Outpatient Prescriptions:fluconazole (DIFLUCAN) 100 mg tablet Take 2 tablets PO daily x1 day, then take1 tablet PO daily x7 daysalbuterol HFA (VENTOLIN HFA) 90 mcg/actuation inhaler Inhale 2 Puffs asinstructed every 4 hours as needed for Wheezing/Shortness of Breath.omeprazole (PRILOSEC) 20 mg capsule TAKE 1 CAPSULE TWICE A DAYmelatonin 1 mg tab Take 1 tablet by mouth daily at bedtime.spironolactone (ALDACTONE) 25 mg tablet Take 1 tablet by mouth once daily.cholestyramine low- calorie (CHOLESTYRAMINE LIGHT) 4 gram packet Use 1 packet injuice daily for diarrhea.triamcinolone acetonide (KENALOG) 0.1 % cream Apply 1 application to affectedarea once daily. to legsOLANZapine ( ZYPREXA) 10 mg tablet Take 1 tablet by mouth twice daily. 20 mg atnight and 10 mg in the morninglithium 300 mg ORAL capsule Take 2 capsules at bedtime.fluphenazine deconoate 25 mg/mL INJECTION injection inject 1ml IM every 2 weeksdivalproex sodium(DEPAKOTE ER 500 MG 24 HR TAB) two tablets at 8 am and 2tablets at bedtimeBENZTROPINE 1 MG TAB one po q amNo current facility-administered medications for this visit.Allergies As of Date: 06/01/2016 Noted Allergy ReactionCODEINE 02/14/2005 5 - IntoleranceZIPRASIDONE 02/14/2005 5 - IntoleranceHALDOL (HALOPERIDOL LACTATE) 02/14/2005 5 - Intolerance Comments: severe muscle contractionsLACTATE 01/15/2013 16 - UnknownDate Reviewed: 04/26/2016Reviewed by: Yaneth Licona Ma - Fully AssessedReason for Visit: Refill Request [94]Order(s):omeprazole (PRILOSEC) 20 mg capsuleTake 1 capsule by mouth twice daily.Disp: 60 capsuleRfl: 11Prescriptions as of 06/01/2016 Sig: OMEPRAZOLE 20 MG CAPSULE,KHANH* Take 1 capsule by mouth twice* FLUCONAZOLE 100 MG TABLET Take 2 tablets PO daily x1 da* ALBUTEROL SULFATE HFA 90 MCG/* Inhale 2 Puffs as instructed * MELATONIN 1 MG TABLET Take 1 tablet by mouth daily * SPIRONOLACTONE 25 MG TABLET Take 1 tablet by mouth once d* CHOLESTYRAMINE-ASPARTAME 4 GR* Use 1 packet in juice daily f* TRIAMCINOLONE ACETONIDE 0.1 %* Apply 1 application to affect* OLANZAPINE 10 MG TABLET Take 1 tablet by mouth twice * LITHIUM CARBONATE 300 MG CAPS* Take 2 capsules at bedtime. FLUPHENAZINE DECANOATE 25 MG/* inject 1ml IM every 2 weeks DEPAKOTE ER 500 MG TABLET,EXT* two tablets at 8 am and 2 tab* BENZTROPINE 1 MG TABLET one po q amProblem List As Of Date 06/01/2016 Noted Resolved TOBACCO USE DISORDER [F17.200] More... 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 Diarrhea [R19.7] 07/26/2011 Vomiting alone [ R11.11] INVALID FOR*07/26/2011 Nonsp Abn Find-Body NEC [R93.8] INVALID FOR* Esophagitis [K20.9] INVALID FOR* More... COPD ( chronic obstructive pulmonary disease) [J*INVALID FOR* More... GERD (gastroesophageal reflux disease) [K21.9] INVALID FOR* More... Costochondritis [M94.0] INVALID FOR* Inguinal hernia right unilateral INVALID FOR* Nonspecific elevation of levels of transaminase* Abnormal US (ultrasound) of abdomen [R93.5] Onychomycosis [B35.1] INVALID FOR* Pes planus of both feet [M21.41, M21.42] INVALID FOR* Lower extremity edema [R60.0]Prescriptions ordered this encounter Disp Refills Start End OMEPRAZOLE 20 MG CAPSULE,DELAYED REL* 60 c* 11 06/02/2016 Route: ORAL Sig: Take 1 capsule by mouth twice daily.Medications Discontinued During This Encounter omeprazole (PRILOSEC) 20 mg capsule 60 c* 2 03/12/2016 06/02/2016 Sig: TAKE 1 CAPSULE TWICE A DAY Disc: Reason for discontinue is not on file. Status:Closed by JESUSITA ( PHARMACIST)RAJAT on 06/02/16 ALLERGIES ALLERGIES DATE TYPE / CODE NAME / CODE REACTION SEVERITY SOURCE Drug haloperidol Abd Unknown [place] 7 Allergy/[id number]( lactate/[id number] cramps/diarrhea [facility]) 21(RXNORM) Hospital Repository Drug haloperidol/F006 Abd Unknown [place] 7 Allergy/054402052( 913956(RXNORM) cramps/diarrhea [facility] Repository Drug codeine/[id number] Upset Stomach Unknown [place] 7 Allergy/260902987( 50(RXNORM) [facility]) [facility] Repository Drug ziprasidone/F006 Unknown Unknown [place] 7 Allergy/767488866( 962348(RXNORM) [facility]) Hospital Repository Miscellaneous LACTATE Unknown Unknown [place] 7 Allergy/574238032( [facility]) [facility] Repository Drug haloperidol Abd [place] 7 Allergy/049705644( lactate/R5703088 cramps/diarrhea [facility]) 21(RXNORM) Hospital Repository Drug haloperidol/F006 Abd [place] 7 Allergy/780771905( 178322(RXNORM) cramps/diarrhea [facility] Rep[facility] Drug codeine/I0262075 Upset Stomach [place] 7 Allergy/535471669( 50(RXNORM) [facility]) [facility] Repository Drug ziprasidone/F006 Unknown [place] 7 Allergy/740681745( 981886(RXNORM) [facility]) Hospital Repository FT/571447353(SNOME LACTATE Unknown [place] [address]) [facility] Repository DRUG LACTATE UNKNOWN [facility] 3 INGREDI/998392319( Clinic Main SNOMED [facility]) [place] Rep[facility] DRUG CODEINE INTOLERANCE [facility] 5 INGREDI/195320349( [facility] [place] [facility] DRUG ZIPRASIDONE INTOLERANCE [facility] 5 INGREDI/365649781( Clinic Main SNOMED CT) [place] [facility] DRUG HALOPERIDOL INTOLERANCE [facility] 5 INGREDI/210654706( LACTATE [facility]) [place] [facility] ENCOUNTERS ENCOUNTERS ADMIT/DISCHARGE ACCOUNT ADMITTING ENCOUNTER LOCATION SOURCE NUMBER CLASS 05/08/2017/05/10/19 [id number] Ambulatory [address] Main [place] Rep[facility] 03/28/2017 [id number] [facility] ing:LAB Repository 02/22/2017/02/23/20 [id number] Ambulatory [address] Repository 11/15/2016/11/16/19 [id number] Ambulatory [address] [place] Rep[place] 11/01/2016/11/02/19 [id number] Ambulatory [address] [place] [facility] 10/05/2016/10/10/19 [id number] Ambulatory [address] [place] [facility] 09/25/2016 [id number] Ambulatory [facility] ing:LAB Repository 08/29/2016/08/30/19 [id number] Ambulatory [address] [place] Rep[place] 07/28/2016/08/02/19 [id number] Annamaria Connor Inpatient [address] ing:PL8Iqqy: Repository MA917Zim: 1 07/28/2016/07/29/19 [id number] Ambulatory [address] [place] Rep[place] 06/23/2016/06/28/19 [id number] Ambulatory [address] Repository 06/15/2016/06/16/19 [id number] Ambulatory [address] Repository PAYERS PAYERS ENCOUNTER GUARANTOR PAYER SUBSCRIBER SOURCE 03/28/2017 Tony D Primary Tony D [place] [id number] Insurance:MEDICARE PackardDOB: Community [address] [facility] [id number] Number: Repository [id number]: 330 [id number] [phone] (HP) Date:2017-03-28 03/28/2017 Secondary Tony D [place] Insurance:MEDICAIDPol PackardDOB: [facility] icy Number: [id number] [id number] Repository Date:2017-03-28 03/28/2017 Tertiary NOT GIVENUNK [place] Insurance:SELF PAY [facility] Number: Effective Repository Date:2017-03-28 09/25/2016 TONY D Primary TONY D [place] [id number] Insurance:MEDICARE PACKARDDOB: Community [address] PART A [facility] [id number], [place] Number: Repository [id number]: 330 [id number] [phone] (HP) Date:1993-08-03 09/25/2016 Secondary TONY D [place] Insurance:MEDICAIDPol PACKARDDOB: Community icy Number: [id number] [facility] [id number] Repository Date: 07/28/2016 TONY D Primary TONY D [place] [id number] Insurance:MEDICARE PACKARDDOB: Community [address] PART A [facility] [id number], [place] Number: Repository [address]Tpy: 330 [id number] [phone] (HP) Date:1991-08-03 07/28/2016 Secondary TONY D [place] Insurance:MEDICAIDPol PACKARDDOB: Community icy Number: [id number] [facility] [id number] Repository Date:
== END ==
PROVIDERS: Family Provider Family Medicine; PCP Family Medicine; Visit Provider Psychiatry & Neurology Psychiatry
DX: Z79.899 Other long term (current) drug therapy (principal)
CPT/HCPCS: 36415; 80053; 80164; 80178; 84443; 85027

== ENCOUNTER → 2017-07-13 11:27 | Outpatient (CLI) | payer MEDICARE, MEDICAID, SELFPAY ==
--- NOTE | 2017-07-13 | IMM_PTH ---
PATIENT: FLORY ARIZA LOC: [place] U#:[id number] AGE/SX: 64/M ROOM: RE07/13/[address]: Dr. Korey Mosqueda MD : 1960 BED: DIS: SPEC #: [id number] RECD: 07/16/17 11:54 STATUS: VICKEY RETiffanie #: [id number] ARETHA: 07/13/17 00:[address]: Korey Mosqueda DEPT: IMMUNOHISTOCHEMISTRY RECD BY: Cecy Hermosillo ENTERED: 07/16/17 11:57 SP TYPE: IMMUNO OTHR DR: MD Dr. Tavo Godoy MD Tissues: LYMPH NODE BIOPSY Procedures: CK8 (initial) BCL-2 (add) CD20 (add) CD3 (add) CD45 (add) CD5 (add) CD79A (add) KI-67 (add) PHYSICIAN & INSTITUTION [place] [address] SPECIMEN INFORMATION: Tissue Source: Lymph node, left groin Clinical Info: Enlarged lymph nodes Specimen Number: [id number] CPT code: 97671, 99621 x7 METHODOLOGY: Deparaffinized sections of prefer/formalin-fixed tissue or PAP/DQ stained slides are incubated with monoclonal/polyclonal antibodies/oligonucleotide probes. Localization is made via biotin free immunoperoxidase method. Appropriate controls are performed and reacted as expected. Results on target cell population are indicated in the following table: RESULTS: ANTIBODY / CLONE RESULT CK8 (50xtvvJ98) negative CD3 (PS1) positive CD5 (SP10) positive CD20 (L26) positive CD79a (11E3) positive CD45 (RP2/18) positive BCL-2 (bcl-2/100/D5) negative, in germinal center Ki-67 (30-9) positive, low These tests were developed and their performance characteristics determined by [facility]. They may not have been cleared or approved by the U.S. Food and Drug Administration. The FDA has determined that such clearance or approval is not necessary. INTERPRETATION: Lymph node, left groin, ultrasound-guided needle core biopsy: Lymph node tissue with reactive changes. Negative for lymphoma or carcinoma. EKTA:rubia 07/17/17
--- NOTE | 2017-07-13 08:30 | LYMN_PTH ---
PATIENT: FLORY ARIZA LOC: [place] U#:[id number] AGE/SX: 64/M ROOM: RE07/13/[address]: Dr. Korey Mosqueda MD : 1960 BED: DIS: SPEC #: [id number] RECD: 07/13/17 11:23 STATUS: VICKEY YOVANA #: [id number] ARETHA: 07/13/17 08:[address]: Korey Mosqueda DEPT: SURGICAL PATHOLOGY RECD BY: Lam Barragan ENTERED: 07/13/17 11:55 SP TYPE: LYMPH NODE OTHR DR: Dr. Tavo Oconnor MD Tissues: LYMPH NODE BIOPSY Procedures: Surgery Specimen Level IV HEADER OPERATION: Ultrasound-guided needle core biopsy enlarged lymph node right groin converted to left groin PRE-OP DIAGNOSIS: Enlarged lymph nodes R59.9 TISSUE SUBMITTED: Needle core biopsy lymph node left groin MICROSCOPIC DIAGNOSIS Left groin lymph node, ultrasound-guided needle core biopsy: Lymph node tissue with reactive changes, negative for granuloma, carcinoma or lymphoma. See comment. EKTA:rubia 07/16/17 COMMENT Immunohistochemistry ([id number]) supports the diagnosis of negative for carcinoma or lymphoma. Correlation with clinical, radiologic findings and appropriate follow up are necessary. MICROSCOPIC DESCRIPTION Slides are reviewed. GROSS DESCRIPTION Received in fixative is one container labeled with the patient's name and designated biopsy lymph node left groin. The specimen consists of two cores of light brooks soft tissue. Each core is approximately 1 cm in length and 0.1 cm in average diameter. The specimen is totally submitted in one cassette. / AM:rubia 07/13/17 TC:5 CPT: 47689
== END ==
PROVIDERS: Family Provider Family Medicine; Visit Provider Surgery
DX: R59.9 Enlarged lymph nodes, unspecified (principal)
CPT/HCPCS: 88305; 88341; 88342

== ENCOUNTER → 2017-09-18 09:00 | Outpatient (CLI) | payer MEDICARE, MEDICAID, SELFPAY ==
[2017-09-18 10:15] LABS: Hematocrit 45.9 % (40-54); Hemoglobin 15.1 g/dl (13.0-16.5); Mean Corp Hgb Conc 32.9 g/gl (32-36); Mean Corpuscular Hgb 35.5 pg (27.0-32.0); Mean Platelet Vol. 10.1 fl (6.2-12.0); Platelet Count 154 K/mm3 (150-450); RBC Distribution Width CV 12.5 % (11.6-14.6); RBC Distribution Width SD 49.4 fl (35.1-43.9); Red Blood Count 4.25 M/mm3 (4.6-6.2); White Blood Count 6.8 K/mm3 (4.4-11.0)
[2017-09-18 10:17] LABS: Scan Indicated on CBC? Y/N NO
[2017-09-18 11:01] LABS: Valproic Acid (Depakene) Level 67 ug/mL (50-100)
[2017-09-18 11:05] LABS: ALB/GLOB Ratio 0.8 RATIO (0.9-2.4); AST(SGOT) 17 U/L (15-37); Alanine Aminotransfer ALT/SGPT 26 U/L (16-61); Albumin, Serum 3.6 g/dL (3.2-5.0); Alkaline Phosphatase 61 U/L (45-117); Anion Gap 4 (5-15); BUN 6 mg/dL (7-18); BUN/Creat Ratio 5.3 RATIO (10-20); Chloride 101 mmol/L (98-107); Creatinine, Serum 1.14 mg/dL (0.70-1.30); EST Glomerular Filtration Rate 71 mL/min (>60); Est Glom Filt Rate - Afr Amer 86 mL/min (>60); Globulin 4.6 g/dL (2.2-4.2); Glucose 100 mg/dL (74-106); Potassium 4.5 mmol/L (3.5-5.1); Protein, Total 8.2 g/dL (6.4-8.2); Sodium Level 137 mmol/L (136-145); Thyroid Stim Hormone (TSH) 2.11 uIU/mL (0.358-3.74)
[2017-09-18 11:30] LABS: Hemoglobin A1c 5.2 % (4.2-6.3)
== END ==
PROVIDERS: Visit Provider Psychiatry & Neurology Psychiatry
DX: Z79.899 Other long term (current) drug therapy (principal)
CPT/HCPCS: 36415; 80053; 80164; 80178; 83036; 84443; 85027

== ENCOUNTER 2018-05-02 10:27 | Emergency (ER) | payer MEDICARE, SELFPAY ==
[2018-05-02 10:32] VITALS: BP 145/86; PULSE 75; RESP 21; TEMP 36.7; O2SAT 91; BMI 31.6
--- NOTE | 2018-05-02 10:40 | ED.RN ---
BLOOD SUGAR CHECKED 105
[2018-05-02 10:41] VITALS: BP 145/86; PULSE 77; RESP 20; O2SAT 91
--- NOTE | 2018-05-02 10:48 | RAD_ITS ---
STUDY: X-RAY CHEST REASON FOR EXAM: Male, 58 years old. Shortness of breath. TECHNIQUE: AP and lateral views of the chest. COMPARISON: Comparison is made with prior study dated July 22, 2016. FINDINGS: EKG electrodes are seen. Elevation of the right hemidiaphragm. Stable increased markings at the left lung base suggestive of a left basilar atelectasis. There is no demonstrated pleural abnormality. There is borderline cardiomegaly. Normal mediastinum and lolis. Normal visualized pulmonary arteries. There is atherosclerotic tortuosity of the aortic arch and descending thoracic aorta. There are mild degenerative changes of the visualized thoracic spine. Normal visualized ribs, clavicles, and shoulders. There is no demonstrated abnormality of the visualized soft tissue structures of the upper abdomen. RAD/Chest PA and Lateral IMPRESSION: Stable increased markings at the left lung base suggestive of left basilar atelectasis. Electronically Signed: Anuj Fernandez, at 12:31 EST , Service support ,
--- NOTE | 2018-05-02 11:18 | ED.VISSUMM ---
- ER Visit Summary Date of Service: 05/02/18 Chief Complaint: Fatigue and weakness History of Present Illness: The patient is a 58 M who presents with fatigue and weakness that began today. Patient states he feels weak all over. Patient states he has been having some heavy breathing. Patient denies any fevers or chills. Patient states he is having difficulty staying awake. Patient denies any nausea or vomiting. Patient denies any urinary complaints. Patient denies any chest pain. Patient denies any upper respiratory congestion. Patient states nothing makes his symptoms better or worse. Physical Examination: Vital signs are stable. Patient is afebrile. Patient is in no acute distress. Oral mucosa is pink and moist. Neck is supple. Trachea is midline. There is no JVD noted. Heart was regular rate and rhythm. Lungs are clear and equal bilateral. Abdomen is soft. Bowel sounds are normal. There is no tenderness. There is no guarding noted. Skin is warm dry. Cranial nerves II through XII are intact. There are no focal motor or sensory deficits noted. The remaining physical exam is within normal limits. Test Results: CBC was normal. Basic metabolic profile showed a slightly elevated creatinine of 1.32. GFR was normal at 60. Sodium was slightly low at 132. Urinalysis was normal. PA and lateral chest x-ray shows left basilar atelectasis but no acute infiltrate. Emergency Department Course and Treatment: Patient was given IV fluids here. Patient felt better on reevaluation. Patient was instructed to follow-up with his primary care physician in 7-10 days. Patient understood and was agreeable with the plan. All questions were answered. Disposition: Discharge home Impression: Fatigue This note was generated with Loude[employer] dictation software. It may contain incorrect words, spelling, and punctuation that were not noted in review of the chart prior to signing ED Disposition - Plan for ED Patient: Disposition: Home or Assisted Living Diagnosis: Fatigue Instructions: ED Weakness [facility] Referrals: Tavo Oconnor MD [NON-STAFF] -
[2018-05-02 11:33] LABS: Absolute Lymphocyte Count 1.03 X10^3/ul (0.83-4.51); Absolute Neutrophil Count 3.8 X10^3/uL (2.0-7.7); Basophil# 0.03 X10^3/uL; Basophil% 0.5 % (0-1); Eosinophil# 0.63 X10^3/uL; Eosinophils% 10.5 % (0-5); Hematocrit 46.5 % (40-54); Hemoglobin 15.1 g/dl (13.0-16.5); Lymphocyte # 1.03 X10^3/ul (4.0); Lymphocyte % 17.2 % (19-41); Mean Corp Hgb Conc 32.5 g/gl (32-36); Mean Corpuscular Hgb 35.2 pg (27.0-32.0); Mean Corpuscular Volume 108.4 fL (80-94); Mean Platelet Vol. 9.4 fl (6.2-12.0); Monocyte% 8.3 % (0-10); Neutrophil % 63.3 % (47-70); Platelet Count 144 K/mm3 (150-450); RBC Distribution Width CV 13.5 % (11.6-14.6); RBC Distribution Width SD 53.5 fl (35.1-43.9); Red Blood Count 4.29 M/mm3 (4.6-6.2)
[2018-05-02 11:37] LABS: POSITIVE COUNT NO; POSITIVE DIFFERENTIAL NO; POSITIVE MORPHOLOGY NO
[2018-05-02] MEDS: 0.9% Normal Saline 1,000 ML 1000 ML IV (11:39)
[2018-05-02 11:41] LABS: Prothrombin Time (Protime)PT. 12.8 SECONDS (11.7-14.9)
[2018-05-02 11:49] LABS: AST(SGOT) 17 U/L (15-37); Alanine Aminotransfer ALT/SGPT 22 U/L (16-61); Albumin, Serum 3.9 g/dL (3.2-5.0); Alkaline Phosphatase 61 U/L (45-117); Anion Gap 3 (5-15); BUN 10 mg/dL (7-18); BUN/Creat Ratio 7.6 RATIO (10-20); Calcium,Total 9.2 mg/dL (8.5-10.1); Chloride 98 mmol/L (98-107); Creatinine, Serum 1.32 mg/dL (0.70-1.30); EST Glomerular Filtration Rate 60 mL/min (>60); Est Glom Filt Rate - Afr Amer 72 mL/min (>60); Estimated Creatinine Clearance 60.45 ml/min; Globulin 4.1 g/dL (2.2-4.2); Glucose 94 mg/dL (74-106); Potassium 5.1 mmol/L (3.5-5.1); Sodium Level 132 mmol/L (136-145)
[2018-05-02 11:53] LABS: Bacteria 0 SEEN /hpf (None Seen); Mucous, Urine 0 SEEN /hpf (<or=2+); Red Blood Cells-Urine 0 SEEN /hpf (0-5)
[2018-05-02 12:04] LABS: Color, Urine Yellow (Yellow); Glucose, Dipstick Normal (Normal); Ketone-Dipstick Negative (Negative); Leukocyte Esterase-Dipstick 25 /ul (Negative); Nitrite-Dipstick Negative (Negative); Occult Blood-Urine Negative /ul (Negative); Protein-Dipstick Negative (Negative); Specific Gravity, Urine 1.005 (1.002-1.030); Urine Bilirubin Dipstick Negative (Negative); Urine Clarity Clear (Clear); Urine Urobilinogen Normal (Normal)
[2018-05-02 12:05] LABS: Squamous Epithelial Cells - UA 0-5 SEEN /hpf (0-5); White Blood Cells 0-5 SEEN /hpf (0-5)
[2018-05-02 13:20] VITALS: BP 131/80; PULSE 67; RESP 12; O2SAT 93
[2018-05-02 16:55] LABS: Bedside Glucose 105 mg/dL (70-110)
== END 2018-05-02 13:23 | disposition home or self-care (01) ==
PROVIDERS: Emergency Provider Emergency Medicine; Family Provider Nurse Practitioner Adult Health; PCP Nurse Practitioner Adult Health
DX: R53.83 Other fatigue (principal); J44.9 Chronic obstructive pulmonary disease, unspecified; F25.0 Schizoaffective disorder, bipolar type; E87.1 Hypo-osmolality and hyponatremia; K21.9 Gastro-esophageal reflux disease without esophagitis; Z72.0 Tobacco use; Z79.1 Long term (current) use of non-steroidal anti-inflammatories (NSAID); Z79.899 Other long term (current) drug therapy
CPT/HCPCS: 71046; 80053; 81001; 82962; 85025; 85610; 85730; 96360; 99285; J7030; A4216

== ENCOUNTER 2018-06-11 12:36 | Outpatient (RCR) | payer MEDICARE, SELFPAY ==
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
--- NOTE | 2018-11-12 09:32 | HP.SP.DC ---
ST Discharge Summary - Discharged: Discharge: Tony Boggs is discharged from speech therapy at [facility] as of 11/12/18. Therapy was recommended after his initial evaluation in June with visits scheduled. He cancelled all visits and has not schedule anything further. Please see initial evaluation for complete details. A copy of this discharge summary will be sent to his referring physician.
== END 2018-06-11 19:00 | disposition home or self-care (01) ==
LOC: SP 12:36
PROVIDERS: Family Provider Nurse Practitioner Adult Health; PCP Nurse Practitioner Adult Health; Referring Provider Nurse Practitioner Adult Health; Visit Provider Nurse Practitioner Adult Health
DX: R47.89 Other speech disturbances (principal)
CPT/HCPCS: 92523

== ENCOUNTER 2018-12-24 14:52 | Emergency (ER) | payer MEDICARE, SELFPAY ==
[2018-12-24 14:54] VITALS: BP 142/78; PULSE 87; RESP 20; TEMP 37.2; O2SAT 99; BMI 30.4
--- NOTE | 2018-12-24 15:14 | ED.DCSUM_ITS ---
History of Present Illness Chief Complaint: Wound Detail of Chief Complaint: Left foot infection Informant: Patient Onset: Month(s) Context: Gradual Onset Current Severity: Moderate Maximum Severity: Moderate Narrative: Patient presents with infection to his left foot he states is been ongoing for several months. He states he got athlete's foot. He has been using an athlete's foot powder and has had someone cleaning the wound twice a day. It does not seem to be improving so his therapeutic case manager brought him in today to be evaluated by Dr. Patient denies any injury to his foot. He does not believe he is diabetic. Past Medical History - Allergies and Home Meds Allergies/Adverse Reactions: Allergies codeine Adverse Reaction (Verified 05/02/18 10:30) Upset Stomach haloperidol [From Haldol] Adverse Reaction (Verified 05/02/18 10:30) Abd cramps/diarrhea haloperidol lactate [From Haldol] Adverse Reaction (Verified 05/02/18 10:30) Abd cramps/diarrhea ziprasidone Adverse Reaction (Verified 05/02/18 10:30) Unknown Primary Care Physician: Ingris Chu, [employer] [Primary Care Provider] - Prior records reviewed: Yes Past Medical History: - - Reviewed Surgical History: - - R knee surgery (s/p trauma), BL Inguinal Hernia Repairs, Cholecystectomy. Lives: - - Assisted living Smoking Status: Heavy Smoker (>10/day) - Family History Maternal Family History: Family History (Last Reviewed 07/23/17 @ 13:39 by Melany Dumas) Mother Diabetes Family History: Reports: Diabetes Paternal Family History: Family History (Last Reviewed 07/23/17 @ 13:39 by Melany Dumas) Mother Diabetes Family History: Reports: Diabetes Review of Systems General: Denies: Chills, Fever Eyes: Denies: Visual changes - bilaterally ENT: Denies: Bilateral ear pain Cardiovascular: Denies: Chest pain Respiratory: Denies: Dyspnea Gastrointestinal: Denies: Abdominal pain Musculoskeletal: Reports: Extremity Pain Skin: Reports: Wounds Endocrine: Denies: Polyuria, Polydipsia Hematologic: Denies: Easy bruising Allergy: Denies: Uticaria Physical Exam Vital Signs/Narrative: Vital Signs Temp Pulse Resp BP Pulse Ox 12/24/18 14:54 98.9 F 87 20 H 142/78 H 99 Inital Vital Signs reviewed: Yes General: Well nourished, Well developed Head: Normocephalic ENT: Moist mucous membranes Neck: Supple Cardiovascular: Regular rate, Regular rhythm, No murmurs Respiratory: No distress, CTA bilaterally Abdomen: Soft, Nontender, Normal bowel sounds Extremities: - - Patient has white patchy scales to his left second and third toes. He has mild edema of the lower extremity. There is slight skin breakdown between the toes of his left foot. No overt cellulitis. Neurological: Alert, Oriented x3 Psychological: Normal affect Diagnostic/Tx/Re-eval Impressions Foot X-Ray 12/24/18 15:39 IMPRESSION: Diffuse soft tissue swelling. Electronically Signed: Anuj Lomaxmansoorely, at 15:56 EDT , Service support , 12/24/18 15:39 Foot min 3 Views [RAD] Stat Laboratory Results 12/24/18 12/24/18 15:20 15:20 WBC 7.0 RBC 4.23 L Hgb 15.0 Hct 44.4 MCV 105.0 H MCH 35.5 H MCHC 33.8 RDW Std Deviation 48.1 H RDW Coeff of Babatunde 12.3 Plt Count 201 MPV 8.7 Immature Gran % (Auto) 0.300 Neut % (Auto) 70.2 H Lymph % (Auto) 16.5 L [place] % (Auto) 9.3 Eos % (Auto) 3.3 Baso % (Auto) 0.4 Absolute Neuts (auto) 4.9 Absolute Lymphs (auto) 1.15 Nucleated RBC % 0 Sodium 131 L Potassium 4.0 Chloride 99 Carbon Dioxide 28.0 Anion Gap 4 L BUN 9 Creatinine 1.04 Estim Creat Clear Calc 76.73 Est GFR (MDRD) Af Amer 95 Est GFR (MDRD) Non-Af 78 BUN/Creatinine Ratio 8.7 L Glucose 94 Calcium 10.0 - Medical Decision Making Wound is cleansed and dressed. X-rays do not reveal any bony destruction. Because of the extensive disease patient will be given Diflucan 150 mg p.o. weekly for 2 to 3 weeks. He will be written for topical treatment as well. He will be given a 4-day course of steroids to help with inflammation. He will be referred to podiatry for follow-up. ED Disposition - Plan for ED Patient: Disposition: Home or Assisted Living Diagnosis: Tinea pedis Instructions: Athlete'S Foot Prescriptions: Prednisone [Deltasone] 40 mg PO DAILY #10 tablet Fluconazole [Diflucan] 150 mg PO QWEEK #2 tablet Ketoconazole [Nizoral Cream] 1 applic TOPICAL DAILY #1 tube Referrals: Erick Hanna DPM [STAFF PHYSICIAN] - As soon as possible
[2018-12-24 15:32] LABS: Absolute Lymphocyte Count 1.15 X10^3/uL (0.83-4.51); Absolute Neutrophil Count 4.9 X10^3/uL (2.0-7.7); Basophil# 0.03 X10^3/uL; Basophil% 0.4 % (0-1); Eosinophil# 0.23 X10^3/uL; Eosinophils% 3.3 % (0-5); Hematocrit 44.4 % (40-54); Lymphocyte # 1.15 X10^3/ul (4.0); Lymphocyte % 16.5 % (19-41); Mean Corp Hgb Conc 33.8 g/dL (32-36); Mean Corpuscular Hgb 35.5 pg (27.0-32.0); Mean Platelet Vol. 8.7 fl (6.2-12.0); Monocyte# 0.65 X10^3/uL; Monocyte% 9.3 % (0-10); NRBC Flagged by Analyzer 0 % (0-5); Neutrophil # 4.88 X10^3/uL (2.7-7.7); Neutrophil % 70.2 % (47-70); Platelet Count 201 K/mm3 (150-450); RBC Distribution Width CV 12.3 % (11.6-14.6); RBC Distribution Width SD 48.1 fl (35.1-43.9); Red Blood Count 4.23 M/mm3 (4.6-6.2)
--- NOTE | 2018-12-24 15:39 | RAD_ITS ---
STUDY: X-RAY - LEFT FOOT CLINICAL: Male, 58 years old. History of infection. TECHNIQUE: 3 view(s) of the foot. COMPARISON: None. FINDINGS: Normal talus, calcaneus, and tarsal bones. Normal visualized subtalar, talonavicular, calcaneocuboid, tarsal and tarsometatarsal articulations. Normal metatarsi. Normal metatarsophalangeal joint of the great toe. Normal tibial and fibular sesamoid bones. Normal interphalangeal joint of the great toe. Normal phalanges of the great toe. Normal second through fifth metatarsophalangeal joints. Normal interphalangeal joints and phalanges of the lesser toes. Diffuse soft tissue swelling worse in the distal leg. RAD/Foot min 3 Views IMPRESSION: Diffuse soft tissue swelling. Electronically Signed: Anuj Fernandez, at 15:56 EDT , Service support ,
[2018-12-24 15:44] LABS: Anion Gap 4 (5-15); BUN 9 mg/dL (7-18); BUN/Creat Ratio 8.7 RATIO (10-20); Chloride 99 mmol/L (98-107); Creatinine, Serum 1.04 mg/dL (0.70-1.30); EST Glomerular Filtration Rate 78 mL/min (>60); Est Glom Filt Rate - Afr Amer 95 mL/min (>60); Estimated Creatinine Clearance 76.73 ml/min; Glucose 94 mg/dL (74-106); Sodium Level 131 mmol/L (136-145)
[2018-12-24 16:55] VITALS: BP 124/81; PULSE 73; RESP 18; O2SAT 92
== END 2018-12-24 16:56 | disposition home or self-care (01) ==
PROVIDERS: Emergency Provider Emergency Medicine; Family Provider Nurse Practitioner Adult Health; PCP Nurse Practitioner Adult Health
DX: B35.3 Tinea pedis (principal); F17.200 Nicotine dependence, unspecified, uncomplicated
CPT/HCPCS: 73630; 80048; 85025; 99283; A4216

== ENCOUNTER 2019-01-01 12:22 | Outpatient (RCR) | payer MEDICARE, SELFPAY ==
[2019-01-01 12:55] VITALS: BP 135/76; PULSE 81; RESP 18; TEMP 37.1; BMI 30.4
--- NOTE | 2019-01-01 17:24 | PCM.WC.PN ---
(1) Chronic ulcer of left foot with fat layer exposed Status: Chronic Code(s): L97.522 - Non-pressure chronic ulcer of other part of left foot with fat layer exposed (2) Tinea pedis Status: Chronic Qualifiers: Laterality: left Qualified Code(s): B35.3 - Tinea pedis Code(s): B35.3 - Tinea pedis (3) Other specified peripheral vascular diseases Status: Suspected Code(s): I73.89 - Other specified peripheral vascular diseases (4) Cellulitis of left foot Status: Resolved Code(s): L03.116 - Cellulitis of left lower limb (5) Chronic malnutrition Status: Suspected Code(s): E46 - Unspecified protein-calorie malnutrition (6) Venous insufficiency (chronic) (peripheral) Status: Suspected Code(s): I87.2 - Venous insufficiency (chronic) (peripheral) (7) Tobacco use Status: Chronic Code(s): Z72.0 - Tobacco use Type of Wound Date of Service: 01/01/19 Chief Complaint: left foot ulcer History of Wound: This 58-year-old male with significant past medical history of bipolar disorder presents complaining of a left foot ulcer. He reports the ulcer and athlete's foot onset was approximately 2 to 3 months ago. He is also most recently seen in the emergency room within the past week for cellulitis and athlete's foot. He was placed on oral prednisone and fluconazole in addition to topical ketoconazole cream. She relates itching and moderate pain. His redness has decreased since he has been on medication from the emergency room. He denies claudication symptoms. He denies history of diabetes or rest paresthesias. He smokes about 2 packs/day. He denies current fever, chill, nausea, vomiting, loss of appetite. Past medical history: Bipolar, schizophrenia, COPD, obesity, alcohol and tobacco abuse, hyperlipidemia. Surgical: Knee surgery, cholecystectomy, hernia repair. Medications: Reviewed. Allergies: Codeine, haloperidol, ziprasidone. Family history: Maternal and paternal diabetes. Social: Lives in assisted living. Smokes 2 packs/day drinks alcohol daily. Review of systems: Denies fever, chill, nausea, vomiting, claudication, chest pain, shortness of breath, orthopnea, edema of the extremities, easy bruising or bleeding, abdominal pain. Positive hearing and speech difficulty Progress of Wound: stable - Physical Exam Vital Signs Temp Pulse Resp BP 98.7 F 81 18 135/76 H 01/01/19 12:55 01/01/19 12:55 01/01/19 12:55 01/01/19 12:55 General: Alert, Oriented x3, Cooperative, No apparent distress HEENT: Atraumatic Extremities: No cyanosis, Capillary Refill Less than 3 Seconds, No Calf Tenderness - Negative Alfredo and Hancock sign bilateral. Compartments are soft to palpate left foot, Diminished Peripheral Pulses - Palpable 2 out of 4 DP and 2 out of 4 weaker pulses, Edema - Mild left forefoot Skin: Ulcer/ Wound - No purulence, erythema, streaking, odor, infection. There is skin discontinuity with granular irregular borders standing from the second proximal toe into the bases of the first and second and third interspaces. There is no skin discontinuity to the deep web space. The peripheral skin is hairless and atrophic. There are no blisters noted. Wound Measurements and Assessment WC - Nurse 1 - General Ulcer Measurement Start: 01/01/19 12:52 Freq: Status: Active Protocol: Activity Type Activity Date Activity User E-Sign Co-Sign Detail Recorded Client Recorded Date Recorded By Document 01/01/19 12:55 [id number] 01/01/19 13:04 RB 01/01/19 12:55 Wound Center Nurse 1 [Ulcer Assessment] 1. left second toe cluster -Combined with other wound No -Current Size (cm) - Length 3 -Current Size (cm) - Width 3.5 -Current Size (cm) - Depth 0.1 -Total Square Cm 10.5 -Photo Taken Yes -Tunneling No -Undermining/Tunneling No -Circular Undermining No -Exudate Amt Small -Exudate Type Serosanguineous -Wound Margin Flat & Intact -Granulation Amt Small (1-33%) -Granulation Quality [place] Loop,Red -Slough/Fibrin Yes -Necrosis Amt Large (67-100%) -Necrotic Tissue Type Adherent Slough -Structure Exposed N/A -Texture (Brandi-wound Skin Appearance) Assessed -Moisture (Brandi-wound Skin Appearance Assessed, ) Maceration -Color (Brandi-wound Skin Appearance) Hemosiderin Staining -Temperature (Brandi-wound Skin No Abnormality Appearance) (Pt Warm) -Tenderness on Palpation (Brandi-wound No Skin Appearance) -Ulcer Cleansing Wound Cleanser -Foul Odor after Cleansing No -Anesthetic Used 4% Lidocaine Solution [Edema Assessment] -Lower Limb Edema Present Yes -Right Calf (cm) 41.5 -Right Ankle (cm) 26.5 -Left Calf (cm) 41.5 -Left Ankle (cm) 28.2 - Nurse 2 - General Ulcer CM Notes Start: 01/01/19 12:52 Freq: Status: Active Protocol: Activity Type Activity Date Activity User E-Sign Co-Sign Detail Recorded Client Recorded Date Recorded By Document 01/01/19 13:22 AN [id number] 01/01/19 13:30 AN 01/01/19 13:22 Wound Center Nurse 2 [Procedure/Treatment] 1. left second toe cluster -Time 13:24 -Correct Patient Yes -Correct Side, Site, Position Yes -Correct Procedure Yes -Procedure Performed Yes -Type of Procedure Debridement -Clinical Debridement Subcutaneous -Post Debridement Size (cm) - Length 3.1 -Post Debridement Size (cm) - Width 3.6 -Post Debridement Size (cm) - Depth 0.1 -Total Square Cm 11.16 -Wound/Ulcer Outcome Not Healed -Ulcer Cleansing Rinsed/ Irrigated with Saline -Foul Odor after Cleansing No -Bioengineered Tissue No -Bleeding Controlled with Pressure -Offloading No -Treatment Response Procedure Tolerated Well [See Physician Procedure note for Specifics] Pain Scale: 0-10 Numeric [Pain] -Is Patient Pain Free? Yes Musculoskeletal: No Tenderness to Palpation of Joints or Extremities, Muscle Wasting, Tenderness - Pain was also manipulation and debridement Neurological: Sensory exam intact to light touch and pain Psych/Mental Status: Normal Affect, Appropriate, Restless Debridement Note Post-Debridement Measurements/Treatment WC - Nurse 2 - General Ulcer CM Notes Start: 01/01/19 12:52 Freq: Status: Active Protocol: Activity Type Activity Date Activity User E-Sign Co-Sign Detail Recorded Client Recorded Date Recorded By Document 01/01/19 13:22 AN [id number] 01/01/19 13:30 AN 01/01/19 13:22 Wound Center Nurse 2 1. left second toe cluster -Time 13:24 -Correct Patient Yes -Correct Side, Site, Position Yes -Correct Procedure Yes -Procedure Performed Yes -Type of Procedure Debridement -Clinical Debridement Subcutaneous -Post Debridement Size (cm) - Length 3.1 -Post Debridement Size (cm) - Width 3.6 -Post Debridement Size (cm) - Depth 0.1 -Total Square Cm 11.16 -Wound/Ulcer Outcome Not Healed -Ulcer Cleansing Rinsed/ Irrigated with Saline -Foul Odor after Cleansing No -Bioengineered Tissue No -Bleeding Controlled with Pressure -Offloading No -Treatment Response Procedure Tolerated Well Pain Scale: 0-10 Numeric Is Patient Pain Free? Yes Wound debrided: forefoot Laterality: Left Type of Debridement: Excisional debridement Anesthesia Used: 5% Lidocaine Gel Depth: in the subcutaneous layer Percentage of wound debrided: 100 Instrument Used: #15 blade Tissue Removed: fibrous, devitalized subcutaneous, biofilm, slough Severity: Fat Layer Exposed Amount of bleeding with debridement: Mild Bleeding Controlled with: Pressure Patient tolerated procedure well Assessment/Plan Assessment: Delayed healing. left foot ulcer with fat layer exposed, no acute cellulitis. Tinea pedis left foot. Pain left foot. malnutrition suspected. Tobacco abuse. Other medical comorbidities Plan: I reviewed and discussed his case including etiology, comprehensive wound healing plan, and anticipated healing time and management. Subcutaneous excisional debridement was performed as noted in the clinical panel. He was advised to change the dressing daily a silver alginate product. To wash his foot daily with soap and water and to avoid soaking activities. He was advised to spray his shower and shoes with Lysol daily to prevent microbial contamination. A prescription was provided for clotrimazole solution and he was advised to apply this to the webspaces daily and not directly to the wound; he understands this is for treatment of the tinea pedis or athlete's foot. I recommend offloading with a surgical shoe. I recommend smoking and alcohol cessation to optimize healing. I recommend nutritional supplementation and eating a well-balanced diet. His recent labs were reviewed from his emergency room visit last week. It is noted he did not have leukocytosis. There were also no other gross abnormalities with CBC and CMP. Hemoglobin A1c screening and other inflammatory labs will be considered pending his response. Additionally due to his delayed healing I recommend arterial and venous studies if there are any vascular abnormalities. He was reassured there is no acute cellulitis or abscess noted today. I do not recommend additional antibiotics. He was advised to monitor for development of local signs of infection or systemic illness. I answer his questions. He was advised to follow-up with the wound healing center in 1 week or call sooner if you have any questions or concerns.
== END 2019-01-02 23:59 ==
LOC: WC 12:22
PROVIDERS: Family Provider Nurse Practitioner Adult Health; PCP Nurse Practitioner Adult Health; Visit Provider Podiatrist
DX: I73.89 Other specified peripheral vascular diseases (principal); I87.2 Venous insufficiency (chronic) (peripheral); Z72.0 Tobacco use; B35.3 Tinea pedis; L97.522 Non-pressure chronic ulcer of other part of left foot with fat layer exposed; E78.5 Hyperlipidemia, unspecified; J44.9 Chronic obstructive pulmonary disease, unspecified; E66.9 Obesity, unspecified
CPT/HCPCS: 11042; 99212; G0463

== ENCOUNTER 2019-01-24 13:30 | Outpatient (RCR) | payer MEDICARE, SELFPAY ==
[2019-01-03 01:35] VITALS: BP 135/76; PULSE 81; RESP 18; TEMP 37.1
--- NOTE | 2019-01-08 09:45 | VDLE_ITS ---
Reason For Study: Edema RIGHT LEFT CFV is compressible, spontaneous, phasic, CFV is compressible, spontaneous, phasic, competent and demonstrates normal competent, and demonstrates normal augmentation. augmentation. FV is compressible, spontaneous, phasic, FV is compressible, spontaneous, phasic, competent and demonstrates normal competent and demonstrates normal augmentation. augmentation. POP V is compressible, spontaneous, phasic, POP V is compressible, spontaneous, phasic, competent and demonstrates normal competent and demonstrates normal augmentation. augmentation. T/P Trunk is compressible. T/P Trunk is compressible. PTV is compressible. PTV is compressible. RT PerV is compressible. LT PerV is compressible. SFJ is INCOMPETENT and measures 0.85 x 0.89 SFJ is INCOMPETENT and measures 1.03 x 1.00 cm. cm. GSV proximal thigh measures 0.54 x 0.58 cm. GSV proximal thigh measures 0.91 x 0.85 cm. GSV at knee measures 0.58 x 0.53 cm. GSV at knee measures 0.52 x 0.55 cm. GSV INCOMPETENT throughout for greater than GSV INCOMPETENT throughout for greater than 0.5 seconds. 0.5 seconds. INCOMPETENT blue crabber noted 21cm and 31 cm INCOMPETENT blue crabber noted 23 cm and 19 cm aove medial malleolu. above medial malleolus. SSV at junction is INCOMPETENT for greater ASV at knee is INCOMPETENT for greater than than 0.5 seconds and measures 0.53 x 0.61 cm. 0.5 seconds and measures 0.67 x 0.66 cm. Procedure SSV at junction is INCOMPETENT for greater Exam performed in department. than 0.5 seconds and measures 0.22 x 0.22 cm. A preliminary report was called and/or faxed to . Interpretation Summary Deep veins of the lower extremities are bilaterally patent and compressible segmentally. There is no evidence of deep vein thrombosis on either side. Valvular competence appears intact within the proximal deep venous systems bilaterally. The great saphenous veins appear bilaterally patent and compressible segmentally. Sapheno-femoral junctions are bilaterally incompetent . Segmental valvular incompetence is noted within the great saphenous veins bilaterally. Small saphenous veins are patent and incompetent bilaterally. Incompetent blue crabber veins are noted in the right calf, located 21 centimeters and 31 centimeters proximal to the right medial malleolus. Incompetent blue crabber veins are noted in the left calf, located 19 centimeters and 23 centimeters proximal to the left medial malleolus. An incompetent left accessory saphenous vein is noted at the level of the left knee. Ordering Physician: Stella Alcaraz Referring Physician: Ingris Chu Performed By: Rosalba Bey RVT
--- NOTE | 2019-01-08 09:46 | ART_ITS ---
Reason For Study: Arterial disease/claudication Procedure A bilateral lower extremity continuous wave Doppler with analog waveform analysis,segmental pressures,and ankle brachial indexes without exercise. Left Segmental Pressures Left brachial= 133mmHg. Left posterior tibial artery = 173mmHg. Left dorsalis pedis artery = 157mmHg. The left dorsalis pedis waveforms are biphasic. The left posterior tibial artery waveforms are triphasic. Right Segmental Pressures Right brachial= 134mmHg. Right posterior tibial artery = 178mmHg. Right dorsalis pedis artery = 142mmHg. Right digit = >254 mmHg. The right dorsalis pedis waveforms are triphasic. The right posterior tibial artery waveforms are triphasic. Indices The right ankle brachial index by the dorsalis pedis is 1.06. The right ankle brachial index by the posterior tibial artery is 1.33. The right digital-brachial index is NC. The left ankle brachial index by the dorsalis pedis is 1.17. The left ankle brachial index by the posterior tibial artery is 1.29. Interpretation Summary Triphasic Doppler waveforms are noted at ankle level on the right. Triphasic and biphasic Doppler waveforms are noted at ankle level on the left. Pulse-volume recording waveform amplitudes are slightly diminished at ankle and digital levels on the right. Resting ankle-brachial indices are normal bilaterally. The right digital-brachial index could not be determined due to the non- compressibility of the vasculature. The left digital-brachial index was not determined due to the presence of wounds. Arterial flow appears to be normal at ankle level bilaterally. There appears to be arterial calcification at digital level on the right. The left digital-brachial index was not determined due to open wounds. Ordering Physician: Stella Alcaraz Referring Physician: Ingris Chu Performed By: Rosalba Bey RVT
[2019-01-08 13:02] VITALS: BP 147/79; PULSE 72; RESP 18; TEMP 36.6; BMI 30.4
--- NOTE | 2019-01-08 13:09 | WC ---
pt wound had no dressing and pt not wearing tubigrip today
--- NOTE | 2019-01-08 16:41 | PN.PCM_ITS ---
(1) Chronic ulcer of left foot with fat layer exposed Status: Chronic Current Visit: Yes Code(s): L97.522 - Non-pressure chronic ulcer of other part of left foot with fat layer exposed (2) Tinea pedis Status: Chronic Current Visit: Yes Qualifiers: Code(s): B35.3 - Tinea pedis (3) Other specified peripheral vascular diseases Status: Suspected Current Visit: Yes Code(s): I73.89 - Other specified peripheral vascular diseases (4) Chronic malnutrition Status: Suspected Current Visit: Yes Code(s): E46 - Unspecified protein- calorie malnutrition (5) Venous insufficiency (chronic) (peripheral) Status: Suspected Current Visit: Yes Code(s): I87.2 - Venous insufficiency (chronic) (peripheral) (6) Tobacco abuse Status: Chronic Current Visit: Yes Code(s): Z72.0 - Tobacco use Type of Wound Date of Service: 01/08/19 Chief Complaint: left foot ulcer History of Wound: This 58-year-old male with significant past medical history of bipolar disorder presents complaining of a left foot ulcer. The ulcer is been present for several months. He has performed dressing changes as advised with Aquacel Ag to the ulcer site and clotrimazole solution to the webspaces. He tries to wear compression garments. He did obtain his artery and vein studies and would like to review the results today. He tries to take nutritional supp lementation. He denies odor, redness. This is painful for him. Progress of Wound: Stable - Physical Exam Vital Signs Temp Pulse Resp BP 97.8 F 72 18 147/79 H 01/08/19 13:02 01/08/19 13:02 01/08/19 13:02 01/08/19 13:02 General: Alert, Oriented x3, Cooperative Extremities: No cyanosis, Capillary Refill Less than 3 Seconds, No Calf Tenderness - Negative Alfredo and Hancock sign left, Diminished Peripheral Pulses, Edema, - - Compartment soft to palpate Skin: Ulcer/ Wound - No purulence, erythema, streaking, deep tissue exposure necrosis. The ulcer bed is granular with some soft hemorrhagic tissue. There is moisture maceration interdigitally without deep probing. The peripheral skin is hairless and atrophic. He does have hyperpigmentation and varicosities to the left lower extremity. Wound Measurements and Assessment WC - Nurse 1 - General Ulcer Measurement Start: 01/08/19 13:01 Freq: Status: Active Protocol: Activity Type Activity Date Activity User E-Sign Co-Sign Detail Recorded Client Recorded Date Recorded By Document 01/08/19 13:02 RB [id number] 01/08/19 13:09 RB 01/08/19 13:02 Wound Center Nurse 1 [Ulcer Assessment] 1. left second toe cluster -Combined with other wound No -Current Size (cm) - Length 3.4 -Current Size (cm) - Width 3 -Current Size (cm) - Depth 0.1 -Total Square Cm 10.2 -Tunneling No -Undermining/Tunneling No -Circular Undermining No -Exudate Amt Small -Exudate Type Serosanguineous -Wound Margin Flat & Intact -Granulation Amt Medium (34-66%) -Granulation Quality Red -Slough/Fibrin Yes -Necrosis Amt Medium (34-66%) -Necrotic Tissue Type Adherent Slough -Structure Exposed N/A -Texture (Brandi-wound Skin Appearance) Assessed -Moisture (Brandi-wound Skin Appearance Dry/Scaly ) -Color (Brandi-wound Skin Appearance) Assessed, Hemosiderin Staining -Temperature (Brandi-wound Skin No Abnormality Appearance) (Pt Warm) -Ulcer Cleansing Rinsed/ Irrigated with Saline -Foul Odor after Cleansing No -Anesthetic Used 5% Lidocaine Gel [Edema Assessment] -Lower Limb Edema Present Yes -Left Calf (cm) 41.5 -Left Ankle (cm) 29.2 01/08/19 13:09 Wound Center by Amanda Houston pt wound had no dressing and pt not wearing tubigrip today Initialized on 01/08/19 13:09 - END OF NOTE - Nurse 2 - General Ulcer CM Notes Start: 01/08/19 13:01 Freq: Status: Active Protocol: Activity Type Activity Date Activity User E-Sign Co-Sign Detail Recorded Client Recorded Date Recorded By Document 01/08/19 13:40 MOSHE [id number] 01/08/19 13:41 MOSHE 01/08/19 13:40 Wound Center Nurse 2 [Procedure/Treatment] 1. left second toe cluster -Time 13:41 -Correct Patient Yes -Correct Side, Site, Position Yes -Correct Procedure Yes -Procedure Performed Yes -Type of Procedure Debridement -Clinical Debridement Subcutaneous -Post Debridement Size (cm) - Length 3.5 -Post Debridement Size (cm) - Width 3 -Post Debridement Size (cm) - Depth 0.1 -Total Square Cm 10.5 -Wound/Ulcer Outcome Not Healed -Ulcer Cleansing Rinsed/ Irrigated with Saline -Foul Odor after Cleansing No -Bioengineered Tissue No -Bleeding Controlled with Pressure -Offloading No -Treatment Response Procedure Tolerated Well [See Physician Procedure note for Specifics] Pain Scale: 0-10 Numeric [Pain] -Is Patient Pain Free? Yes Musculoskeletal: No Tenderness to Palpation of Joints or Extremities, Muscle Wasting Neurological: Sensory exam intact to light touch and pain Psych/Mental Status: Normal Affect, Appropriate Debridement Note Post-Debridement Measurements/Treatment WC - Nurse 2 - General Ulcer CM Notes Start: 01/08/19 13:01 Freq: Status: Active Protocol: Activity Type Activity Date Activity User E-Sign Co-Sign Detail Recorded Client Recorded Date Recorded By Document 01/08/19 13:40 MOSHE [id number] 01/08/19 13:41 MOSHE 01/08/19 13:40 Wound Center Nurse 2 1. left second toe cluster -Time 13:41 -Correct Patient Yes -Correct Side, Site, Position Yes -Correct Procedure Yes -Procedure Performed Yes -Type of Procedure Debridement -Clinical Debridement Subcutaneous -Post Debridement Size (cm) - Length 3.5 -Post Debridement Size (cm) - Width 3 -Post Debridement Size (cm) - Depth 0.1 -Total Square Cm 10.5 -Wound/Ulcer Outcome Not Healed -Ulcer Cleansing Rinsed/ Irrigated with Saline -Foul Odor after Cleansing No -Bioengineered Tissue No -Bleeding Controlled with Pressure -Offloading No -Treatment Response Procedure Tolerated Well Pain Scale: 0-10 Numeric Is Patient Pain Free? Yes Wound debrided: dorsal forefoot Laterality: Left Type of Debridement: Excisional debridement Anesthesia Used: 5% Lidocaine Gel Depth: in the subcutaneous layer Percentage of wound debrided: 100 Instrument Used: #15 blade, 3-12 blade Tissue Removed: fibrous, devitalized subcutaneous, biofilm, slough Severity: Fat Layer Exposed Amount of bleeding with debridement: Mild Bleeding Controlled with: Pressure Patient tolerated procedure well Assessment/Plan Active Problems (Last Reviewed 07/23/17 @ 13:39 by Melany Dumas) Tinea pedis (Chronic) Chronic ulcer of left foot with fat layer exposed (Chronic) Tobacco abuse (Chronic) Assessment: Delayed healing. left foot ulcer with fat layer exposed, no acute cellulitis. Tinea pedis left foot. Pain left foot. Venous insufficiency and varicosities left. 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 malnutrition suspected. Tobacco abuse. Other medical comorbidities Plan: I reviewed and discussed his case including etiology, comprehensive wound healing plan, and anticipated healing time and management. Subcutaneous excisional debridement was performed as noted in the clinical panel. He was advised to change the dressing daily a silver alginate product. To wash his foot daily with soap and water and to avoid soaking activities. He was advised to spray his shower and shoes with Lysol daily to prevent microbial contamination. A prescription was provided for clotrimazole solution and he was advised to apply this to the webspaces daily and not directly to the wound; he understands this is for treatment of the tinea pedis or athlete's foot. I recommend offloading with a surgical shoe. I recommend smoking and alcohol ce ssation to optimize healing. I recommend nutritional supplementation and eating a well-balanced diet. His recent labs were reviewed from his emergency room visit last week. It is noted he did not have leukocytosis. There were also no other gross abnormalities with CBC and CMP. Hemoglobin A1c screening and other inflammatory labs will be considered pending his response. Additionally due to his delayed healing I recommend arterial and venous studies if there are any vascular abnormalities. He was reassured there is no acute cellulitis or abscess noted today. I do not recommend additional antibiotics. He was advised to monitor for development of local signs of infection or systemic illness. A noninvasive vascular study was previously ordered and is noted he does have by and triphasic waveforms to the ankle levels and he does have noncompressible vessels which is consistent with some degree of arterial disease. It is also noted that he had a venous Doppler exam with reflux evaluation performed in 2017 which demonstrated superficial thrombophlebitis in mid calf varicosities noted in the left lower extremity. I recommend a referral to vascular specialist, Dr. Lott's input is greatly appreciated. I answer his questions. He was advised to follow-up with the wound healing center in 1 week or call sooner if you have any questions or concerns.
[2019-01-15 10:04] VITALS: BP 133/76; PULSE 66; RESP 18; TEMP 36.1; BMI 30.4
--- NOTE | 2019-01-15 11:12 | PCM.WC.PN ---
(1) Chronic ulcer of left foot with fat layer exposed Status: Chronic Current Visit: Yes Code(s): L97.522 - Non-pressure chronic ulcer of other part of left foot with fat layer exposed (2) Tinea pedis Status: Chronic Current Visit: Yes Qualifiers: Code(s): B35.3 - Tinea pedis (3) Other specified peripheral vascular diseases Status: Suspected Current Visit: Yes Code(s): I73.89 - Other specified peripheral vascular diseases (4) Chronic malnutrition Status: Suspected Current Visit: Yes Code(s): E46 - Unspecified protein-calorie malnutrition (5) Venous insufficiency (chronic) (peripheral) Status: Suspected Current Visit: Yes Code(s): I87.2 - Venous insufficiency (chronic) (peripheral) (6) Tobacco abuse Status: Chronic Current Visit: Yes Code(s): Z72.0 - Tobacco use Type of Wound Date of Service: 01/15/19 Chief Complaint: left foot ulcer History of Wound: This 58-year-old male with significant past medical history of bipolar disorder presents complaining of a left foot ulcer. The ulcer is been present for several months. He has performed dressing changes as advised with Aquacel Ag to the ulcer site and clotrimazole solution to the webspaces. He relates the solution is not being applied. He tries to wear compression garments. He did not get scheduled to see vascular referral yet and is working on this. He would like additional assistance. He tries to take nutritional supplementation. He denies odor, redness. This is painful for him. He refuses debridement today and relates he will most likely be ready to proceed forward next week. Progress of Wound: Stable - Physical Exam Vital Signs Temp Pulse Resp BP 97.0 F L 66 18 133/76 H 01/15/19 10:04 01/15/19 10:04 01/15/19 10:04 01/15/19 10:04 General: Alert, Oriented x3, Cooperative, No apparent distress HEENT: Atraumatic Extremities: No cyanosis, Capillary Refill Less than 3 Seconds, No Calf Tenderness, Diminished Peripheral Pulses, Edema, Tenderness - Pain with ulcer manipulation left foot Skin: Ulcer/ Wound - No purulence, erythema, string, odor, acute signs of infection. He does have some hemorrhagic and subcutaneous tissue exposed on the dorsal second and third toes and adjacent dorsal forefoot. There is no nidia skin discontinuity interdigitally however there is maceration and moisture noted. No deep tissue exposure noted. The skin in general is hairless and atrophic and there is hyperpigmentation of lower extremity Wound Measurements and Assessment WC - Nurse 1 - General Ulcer Measurement Start: 01/08/19 13:01 Freq: Status: Active Protocol: Activity Type Activity Date Activity User E-Sign Co-Sign Detail Recorded Client Recorded Date Recorded By Document 01/15/19 10:04 HI [id number] 01/15/19 10:12 HI 01/15/19 10:04 Wound Center Nurse 1 [Ulcer Assessment] 1. left second toe cluster -Current Size (cm) - Length 3.5 -Current Size (cm) - Width 4.2 -Current Size (cm) - Depth 0.1 -Total Square Cm 14.70 -Exudate Amt Small -Exudate Type Serous -Wound Margin Flat & Intact -Granulation Amt Medium (34-66%) -Granulation Quality Pale,[place] -Necrosis Amt Medium (34-66%) -Necrotic Tissue Type Adherent Slough -Texture (Brandi-wound Skin Appearance) Assessed -Moisture (Brandi-wound Skin Appearance Assessed ) -Color (Brandi-wound Skin Appearance) Assessed -Temperature (Brandi-wound Skin No Abnormality Appearance) (Pt Warm) -Tenderness on Palpation (Brandi-wound No Skin Appearance) -Ulcer Cleansing Rinsed/ Irrigated with Saline -Foul Odor after Cleansing No -Anesthetic Used 4% Lidocaine Solution [Edema Assessment] -Lower Limb Edema Present Yes -Left Calf (cm) 41.5 -Left Ankle (cm) 29.2 Musculoskeletal: No Tenderness to Palpation of Joints or Extremities, Muscle Wasting Neurological: Sensory exam intact to light touch and pain Psych/Mental Status: Normal Affect, Appropriate Debridement Note Post-Debridement Measurements/Treatment WC - Nurse 2 - General Ulcer CM Notes Start: 01/08/19 13:01 Freq: Status: Active Protocol: Activity Type Activity Date Activity User E-Sign Co-Sign Detail Recorded Client Recorded Date Recorded By Document 01/08/19 13:40 [id number] 01/08/19 13:41 01/08/19 13:40 Wound Center Nurse 2 1. left second toe cluster -Time 13:41 -Correct Patient Yes -Correct Side, Site, Position Yes -Correct Procedure Yes -Procedure Performed Yes -Type of Procedure Debridement -Clinical Debridement Subcutaneous -Post Debridement Size (cm) - Length 3.5 -Post Debridement Size (cm) - Width 3 -Post Debridement Size (cm) - Depth 0.1 -Total Square Cm 10.5 -Wound/Ulcer Outcome Not Healed -Ulcer Cleansing Rinsed/ Irrigated with Saline -Foul Odor after Cleansing No -Bioengineered Tissue No -Bleeding Controlled with Pressure -Offloading No -Treatment Response Procedure Tolerated Well Pain Scale: 0-10 Numeric Is Patient Pain Free? Yes Wound debrided: dorsal forefoot Laterality: Left No debridement was completed today Assessment/Plan Active Problems (Last Reviewed 07/23/17 @ 13:39 by Melany Dumas) Tinea pedis (Chronic) Chronic ulcer of left foot with fat layer exposed (Chronic) Tobacco abuse (Chronic) Assessment: Delayed healing. left foot ulcer with fat layer exposed, no acute cellulitis. Tinea pedis left foot. Pain left foot. Venous insufficiency and varicosities left. 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 malnutrition suspected. Tobacco abuse. Other medical comorbidities Plan: I reviewed and discussed his case including etiology, comprehensive wound healing plan, and anticipated healing time and management. Subcutaneous excisional debridement was used today and this will be recommended again likely next week. He was advised to change the dressing daily with saline moistened warm and gauze to perform gentle debridement. To wash his foot daily with soap and water and to avoid soaking activities. He was advised to spray his shower and shoes with Lysol daily to prevent microbial contamination. A prescription was provided for clotrimazole solution and he was advised to apply this to the webspaces daily and he was encouraged to maintain compliance with this part of his treatment plan. I recommend offloading with a surgical shoe. I recommend smoking and alcohol cessation to optimize healing. I recommend nutritional supplementation and eating a well-balanced diet. His recent labs were reviewed from his emergency room visit last week. It is noted he did not have leukocytosis. There were also no other gross abnormalities with CBC and CMP. Hemoglobin A1c screening and other inflammatory labs will be considered pending his response. He does not have reported history of diabetes. Additionally due to his delayed healing I recommend arterial and venous studies if there are any vascular abnormalities. His vascular studies arterial were completed last week were reviewed. He has good waveforms to the ankle level and a right PATRICE 1.33 and left PATRICE 1.28. There is evidence of calcification and the accuracy of this test is in question. Further testing may be warranted if continued lack of healing is noted. He was reassured there is no acute cellulitis or abscess noted today. I do not recommend additional antibiotics. He was advised to monitor for development of local signs of infection or systemic illness. A noninvasive vascular study was previously ordered and is noted he does have by and triphasic waveforms to the ankle levels and he does have noncompressible vessels which is consistent with some degree of arterial disease. It is also noted that he had a venous Doppler exam with reflux evaluation performed in 2017 which demonstrated superficial thrombophlebitis in mid calf varicosities noted in the left lower extremity. I recommend a referral to vascular specialist, Dr. Lott's input is greatly appreciated. I answer his questions. He was advised to follow-up with the wound healing center in 1 week or call sooner if you have any questions or concerns.
[2019-01-24 14:25] VITALS: BP 129/69; PULSE 70; RESP 18; TEMP 36.1; BMI 30.4
== END 2019-02-01 23:59 ==
LOC: WC 13:30
PROVIDERS: Family Provider Nurse Practitioner Adult Health; PCP Nurse Practitioner Adult Health; Referring Provider Podiatrist; Visit Provider Podiatrist
DX: I73.9 Peripheral vascular disease, unspecified (principal); R60.0 Localized edema; L97.522 Non-pressure chronic ulcer of other part of left foot with fat layer exposed; B35.3 Tinea pedis; Z72.0 Tobacco use; M79.672 Pain in left foot; I87.2 Venous insufficiency (chronic) (peripheral)
CPT/HCPCS: 11042; 93923; 93970; 99212; 99213; G0463

== ENCOUNTER 2019-03-04 13:30 | Outpatient (RCR) | payer MEDICARE, SELFPAY ==
[2019-02-02 01:09] VITALS: BP 129/69; PULSE 70; RESP 18; TEMP 36.1
[2019-02-05 14:36] VITALS: BP 137/75; PULSE 68; RESP 18; TEMP 35.7; BMI 30.4
--- NOTE | 2019-02-05 17:08 | PCM.WC.PN ---
(1) Tinea pedis Status: Chronic Qualifiers: Code(s): B35.3 - Tinea pedis (2) Venous insufficiency (chronic) (peripheral) Status: Suspected Code(s): I87.2 - Venous insufficiency (chronic) (peripheral) (3) Chronic ulcer of left foot with fat layer exposed Status: Chronic Code(s): L97.522 - Non-pressure chronic ulcer of other part of left foot with fat layer exposed Type of Wound Date of Service: 02/05/19 Chief Complaint: left foot ulcer History of Wound: This 58-year-old male with significant past medical history of bipolar disorder presents complaining of a left foot ulcer. The ulcer is been present for several months. He has performed dressing changes as advised with Aquacel Ag to the ulcer site and clotrimazole solution to the webspaces. He relates the solution is being applied and he noticed recent improvement. He tries to wear compression garments. He did attend his vascular surgery referral as advised and additional tests are planned. He would like additional assistance. He tries to take nutritional supplementation. He denies odor, redness. This is painful for him. Progress of Wound: Improving - Physical Exam Vital Signs Temp Pulse Resp BP 96.2 F L 68 18 137/75 H 02/05/19 14:36 02/05/19 14:36 02/05/19 14:36 02/05/19 14:36 General: Alert, Oriented x3, Cooperative, No apparent distress HEENT: Atraumatic Extremities: No cyanosis, Capillary Refill Less than 3 Seconds, No Calf Tenderness, Diminished Peripheral Pulses, Edema Skin: Ulcer/ Wound - No purulence, erythema, streaking, or infection. The adjacent skin is hairless and atrophic. There is decrease of hemorrhagic tissue and open lesion noted. There is hyperpigmentation of the skin. His skin is friable Wound Measurements and Assessment WC - Nurse 1 - General Ulcer Measurement Start: 02/05/19 14:36 Freq: Status: Active Protocol: Activity Type Activity Date Activity User E-Sign Co-Sign Detail Recorded Client Recorded Date Recorded By Document 02/05/19 14:36 [id number] 02/05/19 14:38 CS 02/05/19 14:36 Wound Center Nurse 1 [Ulcer Assessment] 1. left second toe cluster -Combined with other wound No -Current Size (cm) - Length 4.2 -Current Size (cm) - Width 5.5 -Current Size (cm) - Depth 0.1 -Total Square Cm 23.10 -Photo Taken No -Epithelialization None Present -Tunneling No -Undermining/Tunneling No -Circular Undermining No -Granulation Amt Medium (34-66%) -Granulation Quality Red -Necrosis Amt None Present (0 %) -Necrotic Tissue Type Adherent Slough -Moisture (Brandi-wound Skin Appearance Dry/Scaly ) -Color (Brandi-wound Skin Appearance) No Abnormality, Assessed -Temperature (Brandi-wound Skin No Abnormality Appearance) (Pt Warm) -Tenderness on Palpation (Brandi-wound No Skin Appearance) -Ulcer Cleansing Rinsed/ Irrigated with Saline -Foul Odor after Cleansing No -Anesthetic Used 4% Lidocaine Solution [Edema Assessment] -Lower Limb Edema Present Yes -Left Calf (cm) 41.0 -Left Ankle (cm) 30.0 WC - Nurse 2 - General Ulcer CM Notes Start: 02/05/19 14:36 Freq: Status: Active Protocol: Activity Type Activity Date Activity User E-Sign Co-Sign Detail Recorded Client Recorded Date Recorded By Document 02/05/19 15:18 [id number] 02/05/19 15:19 02/05/19 15:18 Wound Center Nurse 2 [Procedure/Treatment] 1. left second toe cluster -Time 15:19 -Correct Patient Yes -Correct Side, Site, Position Yes -Correct Procedure Yes -Procedure Performed Yes -Type of Procedure Debridement -Clinical Debridement Subcutaneous -Post Debridement Size (cm) - Length 4.3 -Post Debridement Size (cm) - Width 5.6 -Post Debridement Size (cm) - Depth 0.1 -Total Square Cm 24.08 -Wound/Ulcer Outcome Not Healed -Ulcer Cleansing Rinsed/ Irrigated with Saline -Foul Odor after Cleansing No -Bioengineered Tissue No -Bleeding Controlled with Pressure -Offloading No -Treatment Response Procedure Tolerated Well [See Physician Procedure note for Specifics] Pain Scale: 0-10 Numeric [Pain] -Is Patient Pain Free? Yes Musculoskeletal: No Tenderness to Palpation of Joints or Extremities, Muscle Wasting Neurological: Sensory exam intact to light touch and pain Psych/Mental Status: Normal Affect, Appropriate Debridement Note Post-Debridement Measurements/Treatment WC - Nurse 2 - General Ulcer CM Notes Start: 02/05/19 14:36 Freq: Status: Active Protocol: Activity Type Activity Date Activity User E-Sign Co-Sign Detail Recorded Client Recorded Date Recorded By Document 02/05/19 15:18 MOSHE [id number] 02/05/19 15:19 MOSHE 02/05/19 15:18 Wound Center Nurse 2 1. left second toe cluster -Time 15:19 -Correct Patient Yes -Correct Side, Site, Position Yes -Correct Procedure Yes -Procedure Performed Yes -Type of Procedure Debridement -Clinical Debridement Subcutaneous -Post Debridement Size (cm) - Length 4.3 -Post Debridement Size (cm) - Width 5.6 -Post Debridement Size (cm) - Depth 0.1 -Total Square Cm 24.08 -Wound/Ulcer Outcome Not Healed -Ulcer Cleansing Rinsed/ Irrigated with Saline -Foul Odor after Cleansing No -Bioengineered Tissue No -Bleeding Controlled with Pressure -Offloading No -Treatment Response Procedure Tolerated Well Pain Scale: 0-10 Numeric Is Patient Pain Free? Yes Wound debrided: dorsal forefoot Laterality: Left Type of Debridement: Excisional debridement Anesthesia Used: 5% Lidocaine Gel Depth: in the subcutaneous layer Percentage of wound debrided: 100 Instrument Used: #15 blade Tissue Removed: fibrous, devitalized subcutaneous, biofilm, slough Severity: Fat Layer Exposed Amount of bleeding with debridement: Mild Bleeding Controlled with: Pressure Patient tolerated procedure well Assessment/Plan Assessment: Delayed healing. left foot ulcer with fat layer exposed, no acute cellulitis. Tinea pedis left foot. Pain left foot. Venous insufficiency and varicosities left. 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 malnutrition suspected. Tobacco abuse. Other medical comorbidities Plan: I reviewed and discussed his case including etiology, comprehensive wound healing plan, and anticipated healing time and management. Subcutaneous excisional debridement was used today and this will be recommended again likely next week. He was advised to change the dressing daily with Aquacel Ag, and gauze to perform gentle debridement. To wash his foot daily with soap and water and to avoid soaking activities. He was advised to spray his shower and shoes with Lysol daily to prevent microbial contamination. A prescription was provided for clotrimazole solution and he was advised to continue to apply this to the webspaces daily and he was encouraged to maintain compliance with this part of his treatment plan. I recommend offloading with a surgical shoe. I recommend smoking and alcohol cessation to optimize healing. I recommend nutritional supplementation and eating a well-balanced diet. His recent labs were reviewed from his emergency room visit last week. It is noted he did not have leukocytosis. There were also no other gross abnormalities with CBC and CMP. Hemoglobin A1c screening and other inflammatory labs will be considered pending his response. He does not have reported history of diabetes. Additionally due to his delayed healing I recommend arterial and venous studies if there are any vascular abnormalities. His vascular studies arterial were completed last week were reviewed. He has good waveforms to the ankle level and a right PATRICE 1.33 and left PATRICE 1.28. There is evidence of calcification and the accuracy of this test is in question. Further testing may be warranted if continued lack of healing is noted. He was reassured there is no acute cellulitis or abscess noted today. I do not recommend additional antibiotics. He was advised to monitor for development of local signs of infection or systemic illness. A noninvasive vascular study was previously ordered and is noted he does have by and triphasic waveforms to the ankle levels and he does have noncompressible vessels which is consistent with some degree of arterial disease. It is also noted that he had a venous Doppler exam with reflux evaluation performed in 2017 which demonstrated superficial thrombophlebitis in mid calf varicosities noted in the left lower extremity. I recommend a referral to vascular specialist, Dr. Lott's input is greatly appreciated and further testing plan is noted. I answer his questions. He was advised to follow-up with the wound healing center in 1 week or call sooner if you have any questions or concerns.
[2019-02-12 10:14] VITALS: BP 134/76; PULSE 71; RESP 18; TEMP 36.6; BMI 30.4
--- NOTE | 2019-02-12 12:21 | PCM.WC.PN ---
(1) Tinea pedis Status: Chronic Current Visit: Yes Qualifiers: Code(s): B35.3 - Tinea pedis (2) Venous insufficiency (chronic) (peripheral) Status: Suspected Current Visit: Yes Code(s): I87.2 - Venous insufficiency (chronic) (peripheral) (3) Chronic ulcer of left foot with fat layer exposed Status: Chronic Current Visit: Yes Code(s): L97.522 - Non-pressure chronic ulcer of other part of left foot with fat layer exposed (4) Colonization status Status: Suspected Current Visit: Yes Code(s): Z22.9 - Carrier of infectious disease, unspecified (5) Maceration of skin Status: Acute Current Visit: Yes Code(s): L98.8 - Other specified disorders of the skin and subcutaneous tissue Type of Wound Date of Service: 02/12/19 Chief Complaint: left foot ulcer History of Wound: This 58-year-old male with significant past medical history of bipolar disorder presents complaining of a left foot ulcer. The ulcer has been present for several months. He has performed dressing changes as advised with saline wet-to-dry gauze to the ulcer site and clotrimazole solution to the webspaces up until yesterday. He presented today without a dressing intact. He relates the solution is being applied and he noticed recent improvement last week but not so much this week. He tries to wear compression garments. He did attend his vascular surgery referral as advised and additional tests are planned. He would like additional assistance. He tries to take nutritional supplementation. He denies odor, redness. This is painful for him. He refuses debridement or culture today. Progress of Wound: Stable - Physical Exam Vital Signs Temp Pulse Resp BP 97.8 F 71 18 134/76 H 02/12/19 10:14 02/12/19 10:14 02/12/19 10:14 02/12/19 10:14 General: Alert, Oriented x3, Cooperative, No apparent distress Extremities: No cyanosis, Capillary Refill Less than 3 Seconds, No Calf Tenderness, Diminished Peripheral Pulses, Edema Skin: Ulcer/ Wound - No purulence, erythema, string, odor, infection. There is continued maceration and overall lack of improvement. The ulcer bed is granular and fibrous. His adjacent skin is atrophic and hairless Wound Measurements and Assessment WC - Nurse 1 - General Ulcer Measurement Start: 02/05/19 14:36 Freq: Status: Active Protocol: Activity Type Activity Date Activity User E-Sign Co-Sign Detail Recorded Client Recorded Date Recorded By Document 02/12/19 10:14 DL [id number] 02/12/19 10:21 DL 02/12/19 10:14 Wound Center Nurse 1 [Ulcer Assessment] 1. left second toe cluster -Current Size (cm) - Length 4 -Current Size (cm) - Width 5 -Current Size (cm) - Depth 0.1 -Total Square Cm 20 -Photo Taken No -Exudate Amt Medium -Exudate Type Serosanguineous -Wound Margin Indistinct, Non -Visible -Granulation Amt Medium (34-66%) -Granulation Quality Red -Necrosis Amt Medium (34-66%) -Necrotic Tissue Type Adherent Slough -Structure Exposed N/A -Texture (Brandi-wound Skin Appearance) Excoriation, Localized Edema -Moisture (Brandi-wound Skin Appearance Maceration ) -Color (Brandi-wound Skin Appearance) No Abnormality, Hemosiderin Staining -Temperature (Brandi-wound Skin No Abnormality Appearance) (Pt Warm) -Tenderness on Palpation (Brandi-wound Yes Skin Appearance) -Ulcer Cleansing Wound Cleanser -Foul Odor after Cleansing No -Anesthetic Used 4% Lidocaine Solution [Edema Assessment] -Left Calf (cm) 42 -Left Ankle (cm) 27 - Nurse 2 - General Ulcer CM Notes Start: 02/05/19 14:36 Freq: Status: Active Protocol: Activity Type Activity Date Activity User E-Sign Co-Sign Detail Recorded Client Recorded Date Recorded By Document 02/12/19 10:27 DL [id number] 02/12/19 10:35 DL 02/12/19 10:27 Wound Center Nurse 2 [Procedure/Treatment] 1. left second toe cluster -Correct Patient No -Correct Side, Site, Position No -Correct Procedure No -Procedure Performed No -Wound/Ulcer Outcome Not Healed -Ulcer Cleansing Rinsed/ Irrigated with Saline -Foul Odor after Cleansing No -Bioengineered Tissue No -Bleeding Controlled with Pressure -Offloading No -Treatment Response Procedure Tolerated Well [See Physician Procedure note for Specifics] Pain Scale: 0-10 Numeric [Pain] -Is Patient Pain Free? Yes Musculoskeletal: No Tenderness to Palpation of Joints or Extremities, Muscle Wasting, - - Compartment soft to palpate Neurological: Sensory exam intact to light touch and pain Psych/Mental Status: Normal Affect, Appropriate, Anxious Debridement Note Post-Debridement Measurements/Treatment WC - Nurse 2 - General Ulcer CM Notes Start: 02/05/19 14:36 Freq: Status: Active Protocol: Activity Type Activity Date Activity User E-Sign Co-Sign Detail Recorded Client Recorded Date Recorded By Document 02/05/19 15:18 [id number] 02/05/19 15:19 Document 02/12/19 10:27 DL [id number] 02/12/19 10:35 DL 02/05/19 02/12/19 15:18 10:27 Wound Center Nurse 2 1. left second toe cluster -Time 15:19 -Correct Patient Yes No -Correct Side, Site, Position Yes No -Correct Procedure Yes No -Procedure Performed Yes No -Type of Procedure Debridement -Clinical Debridement Subcutaneous -Post Debridement Size (cm) - Length 4.3 -Post Debridement Size (cm) - Width 5.6 -Post Debridement Size (cm) - Depth 0.1 -Total Square Cm 24.08 -Wound/Ulcer Outcome Not Healed Not Healed -Ulcer Cleansing Rinsed/ Rinsed/ Irrigated with Irrigated with Saline Saline -Foul Odor after Cleansing No No -Bioengineered Tissue No No -Bleeding Controlled with Pressure Pressure -Offloading No No -Treatment Response Procedure Procedure Tolerated Well Tolerated Well Pain Scale: 0-10 Numeric Is Patient Pain Free? Yes Yes No debridement was completed today - Refused Assessment/Plan Active Problems (Last Reviewed 07/23/17 @ 13:39 by Melany Dumas) Tinea pedis (Chronic) Chronic ulcer of left foot with fat layer exposed (Chronic) Maceration of skin (Acute) Assessment: Delayed healing. left foot ulcer with fat layer exposed, no acute cellulitis. Tinea pedis left foot is suspected. Bacterial colonization is suspected. Pain left foot. Venous insufficiency and varicosities left. 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 malnutrition suspected. Tobacco abuse. Other medical comorbidities Plan: I reviewed and discussed his case including etiology, comprehensive wound healing plan, and anticipated healing time and management. Subcutaneous excisional debridement was refused today. He also refused a culture which was highly recommended at this time to look for bacterial colonization and to also confirm if fungal elements are present. He was advised to change the dressing daily with Aquacel Ag and to cleanse the foot with antimicrobial Hibiclens soap. To avoid soaking activity. He was advised to spray his shower and shoes with Lysol daily to prevent microbial contamination. A prescription was provided for clotrimazole solution and he was advised to continue to apply this to the webspaces daily and he was encouraged to maintain compliance with this part of his treatment plan. I recommend offloading with a surgical shoe. I recommend smoking and alcohol cessation to optimize healing. I recommend nutritional supplementation and eating a well-balanced diet. His recent labs were reviewed from his emergency room visit last week. It is noted he did not have leukocytosis. There were also no other gross abnormalities with CBC and CMP. Hemoglobin A1c screening and other inflammatory labs will be considered pending his response. He does not have reported history of diabetes. Additionally due to his delayed healing I recommend arterial and venous studies if there are any vascular abnormalities. His vascular studies arterial were completed last week were reviewed. He has good waveforms to the ankle level and a right PATRICE 1.33 and left PATRICE 1.28. There is evidence of calcification and the accuracy of this test is in question. Further testing may be warranted if continued lack of healing is noted. He was reassured there is no acute cellulitis or abscess noted today. I do not recommend additional antibiotics. He was advised to monitor for development of local signs of infection or systemic illness. A noninvasive vascular study was previously ordered and is noted he does have by and triphasic waveforms to the ankle levels and he does have noncompressible vessels which is consistent with some degree of arterial disease. It is also noted that he had a venous Doppler exam with reflux evaluation performed in 2017 which demonstrated superficial thrombophlebitis in mid calf varicosities noted in the left lower extremity. I recommend a referral to vascular specialist, Dr. Lott's input is greatly appreciated and further testing plan is noted. I answer his questions. He was advised to follow-up with the wound healing center in 1 week or call sooner if you have any questions or concerns. Will be considered for complex care due to inability to move forward with treatment recommendations which is impairing his healing.
[2019-03-04 13:07] VITALS: BP 148/84; PULSE 71; RESP 20; TEMP 36.6; BMI 30.4
--- NOTE | 2019-03-04 13:45 | PN.PCM_ITS ---
(1) Tinea pedis Status: Chronic Current Visit: Yes Qualifiers: Code(s): B35.3 - Tinea pedis (2) Venous insufficiency (chronic) (peripheral) Status: Suspected Current Visit: Yes Code(s): I87.2 - Venous insufficiency (chronic) (peripheral) (3) Chronic ulcer of left foot with fat layer exposed Status: Chronic Current Visit: Yes Code(s): L97.522 - Non-pressure chronic ulcer of other part of left foot with fat layer exposed (4) Colonization status Status: Suspected Current Visit: Yes Code(s): Z22.9 - Carrier of infectious disease, unspecified (5) Maceration of skin Status: Acute Current Visit: Yes Code(s): L98.8 - Other specified disorders of the skin and subcutaneous tissue Type of Wound Date of Service: 03/04/19 Chief Complaint: left foot ulcer History of Wound: This 59-year-old male with significant past medical history of bipolar disorder presents complaining of a left foot ulcer. The ulcer has been present for several months. He has performed dressing changes as advised with saline wet-to-dry gauze to the ulcer site and clotrimazole solution to the webspaces up until yesterday. He tries to wear compression garments. He did attend his vascular surgery referral as advised and additional tests are planned. He would like additional assistance. He tries to take nutritional supplementation. He denies odor, redness. He is amendable to proceed forward with debridement under local anesthetic injection and also wound culture today. He denies fever, chill, nausea, vomiting. Progress of Wound: Worsening status with increased size - Physical Exam Vital Signs Temp Pulse Resp BP 98 F 71 20 H 148/84 H 03/04/19 13:07 03/04/19 13:07 03/04/19 13:07 03/04/19 13:07 General: Alert, Oriented x3, Cooperative, No apparent distress Extremities: No cyanosis, Capillary Refill Less than 3 Seconds, No Calf Tenderness, Diminished Peripheral Pulses, Edema Skin: Ulcer/ Wound - Progressive interdigital maceration now extends into the third fourth interspaces in addition to the first and second. There is skin discontinuity now to the dorsal aspect of all 5 digits and this is partially granular and fibrous with slough and maceration. There is no purulence on expression, necrosis, or odor. his adjacent skin is atrophic and hairless Wound Measurements and Assessment WC - Nurse 1 - General Ulcer Measurement Start: 02/05/19 14:36 Freq: Status: Active Protocol: Activity Type Activity Date Activity User E-Sign Co-Sign Detail Recorded Client Recorded Date Recorded By Document 03/04/19 13:07 DL [id number] 03/04/19 13:16 DL 03/04/19 13:07 Wound Center Nurse 1 [Ulcer Assessment] 1. left second toe cluster -Current Size (cm) - Length 3.8 -Current Size (cm) - Width 4.5 -Current Size (cm) - Depth 0.1 -Total Square Cm 17.10 -Photo Taken No -Exudate Amt Medium -Exudate Type Serosanguineous -Wound Margin Indistinct, Non -Visible -Granulation Amt Medium (34-66%) -Granulation Quality Red -Necrosis Amt Medium (34-66%) -Necrotic Tissue Type Adherent Slough -Structure Exposed N/A -Texture (Brandi-wound Skin Appearance) Localized Edema -Moisture (Brandi-wound Skin Appearance Maceration ) -Color (Barndi-wound Skin Appearance) Hemosiderin Staining -Temperature (Brandi-wound Skin No Abnormality Appearance) (Pt Warm) -Tenderness on Palpation (Brandi-wound No Skin Appearance) -Ulcer Cleansing Rinsed/ Irrigated with Saline -Foul Odor after Cleansing No -Anesthetic Used 4% Lidocaine Solution [Edema Assessment] -Left Calf (cm) 38.5 -Left Ankle (cm) 28 WC - Nurse 2 - General Ulcer CM Notes Start: 02/05/19 14:36 Freq: Status: Active Protocol: Activity Type Activity Date Activity User E-Sign Co-Sign Detail Recorded Client Recorded Date Recorded By Document 03/04/19 13:35 DL [id number] 03/04/19 13:36 DL 03/04/19 13:35 Wound Center Nurse 2 [Procedure/Treatment] 1. left second toe cluster -Time 13:35 -Correct Patient Yes -Correct Side, Site, Position Yes -Correct Procedure Yes -Procedure Performed Yes -Type of Procedure Debridement -Clinical Debridement Subcutaneous -Post Debridement Size (cm) - Length 3.8 -Post Debridement Size (cm) - Width 4.6 -Post Debridement Size (cm) - Depth 0.1 -Total Square Cm 17.48 -Wound/Ulcer Outcome Not Healed -Ulcer Cleansing Rinsed/ Irrigated with Saline -Foul Odor after Cleansing No -Bioengineered Tissue No -Bleeding Controlled with Pressure -Offloading No -Treatment Response Procedure Tolerated Well [See Physician Procedure note for Specifics] Pain Scale: 0-10 Numeric [Pain] -Is Patient Pain Free? Yes Musculoskeletal: No Tenderness to Palpation of Joints or Extremities, Muscle Wasting Neurological: Sensory exam intact to light touch and pain Psych/Mental Status: Normal Affect, Appropriate Debridement Note Post-Debridement Measurements/Treatment WC - Nurse 2 - General Ulcer CM Notes Start: 02/05/19 14:36 Freq: Status: Active Protocol: Activity Type Activity Date Activity User E-Sign Co-Sign Detail Recorded Client Recorded Date Recorded By Document 02/05/19 15:18 JF [id number] 02/05/19 15:19 JF Document 02/12/19 10:27 DL [id number] 02/12/19 10:35 DL Document 03/04/19 13:35 DL [id number] 03/04/19 13:36 DL 02/05/19 02/12/19 03/04/19 15:18 10:27 13:35 Wound Center Nurse 2 1. left second toe cluster -Time 15:19 13:35 -Correct Patient Yes No Yes -Correct Side, Site, Position Yes No Yes -Correct Procedure Yes No Yes -Procedure Performed Yes No Yes -Type of Procedure Debridement Debridement -Clinical Debridement Subcutaneous Subcutaneous -Post Debridement Size (cm) - Length 4.3 3.8 -Post Debridement Size (cm) - Width 5.6 4.6 -Post Debridement Size (cm) - Depth 0.1 0.1 -Total Square Cm 24.08 17.48 -Wound/Ulcer Outcome Not Healed Not Healed Not Healed -Ulcer Cleansing Rinsed/ Rinsed/ Rinsed/ Irrigated with Irrigated with Irrigated with Saline Saline Saline -Foul Odor after Cleansing No No No -Bioengineered Tissue No No No -Bleeding Controlled with Pressure Pressure Pressure -Offloading No No No -Treatment Response Procedure Procedure Procedure Tolerated Well Tolerated Well Tolerated Well Pain Scale: 0-10 Numeric Is Patient Pain Free? Yes Yes Yes Wound debrided: forefoot Laterality: Left Type of Debridement: Excisional debridement Anesthesia Used: 5% Lidocaine Gel, - - 5 cc 2% lidocaine plain was administered to the left foot and typical 2, 3, and 4 ray block fashion after verbal consent was obtained. He tolerated this well. Depth: in the subcutaneous layer Percentage of wound debrided: 100 Instrument Used: #15 blade Tissue Removed: fibrous, devitalized subcutaneous, biofilm, slough Severity: Fat Layer Exposed Amount of bleeding with debridement: Mild Bleeding Controlled with: Pressure Patient tolerated procedure well Assessment/Plan Active Problems (Last Reviewed 07/23/17 @ 13:39 by Melany Dumas) Tinea pedis (Chronic) Chronic ulcer of left foot with fat layer exposed (Chronic) Maceration of skin (Acute) Assessment: Delayed healing. left foot ulcer with fat layer exposed, no acute cellulitis. Tinea pedis left foot is suspected. Bacterial colonization is suspected. Pain left foot. Venous insufficiency and varicosities left. 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 malnutrition suspected. Tobacco abuse. Other medical comorbidities Plan: I reviewed and discussed his case including etiology, comprehensive wound healing plan, and anticipated healing time and management. Subcutaneous excisional debridement was performed today. This was performed with assistance of local anesthetic. He also was amenable to obtaining a culture today which was sent for MRSA PCR, aerobic, anaerobic, acid-fast, and fungal. He tolerated this well. His increased maceration and worsening status of his left foot ulcer site is noted. I recommended he cleanse the site daily with antimicrobial Hibiclens soap and to change it with Betadine soaked gauze. I recommend offloading with a surgical shoe. I recommend smoking and alcohol cessation to optimize healing. I recommend nutritional supplementation and eating a well-b alanced diet. His recent labs were reviewed from his emergency room visit last week. It is noted he did not have leukocytosis. There were also no other gross abnormalities with CBC and CMP. Hemoglobin A1c screening and other inflammatory labs will be considered pending his response. He does not have reported history of diabetes. Additionally due to his delayed healing I recommend arterial and venous studies if there are any vascular abnormalities. His vascular studies arterial were completed last week were reviewed. He has good waveforms to the ankle level and a right PATRICE 1.33 and left PATRICE 1.28. There is evidence of calcification and the accuracy of this test is in question. Further testing may be warranted if continued lack of healing is noted. He was reassured there is no acute cellulitis or abscess noted today. I do not recommend additional antibiotics. He was advised to monitor for development of local signs of infection or systemic illness. This will be considered once his culture results are reviewed. A noninvasive vascular study was previously ordered and is noted he does have by and triphasic waveforms to the ankle levels and he does have noncompressible vessels which is consistent with some degree of arterial disease. It is also noted that he had a venous Doppler exam with reflux evaluation performed in 2017 which demonstrated superficial thrombophlebitis in mid calf varicosities noted in the left lower extremity. I recommend a referral to vascular specialist, Dr. Lott's input is greatly appreciated and further testing plan is noted. I answer his questions. He was advised to follow-up with the wound healing center in 1 week or call sooner if you have any questions or concerns. He also asked for pain medication today. I do not recommend narcotic pain medication. He reports tramadol has not helped him in the past. I recommend that he takes Tylenol in a safe and proper manner and avoid going over the dose recommendations. He is amenable to proceed forward with this pain management plan. Will be considered for complex care due to inability to move forward with treatment recommendations which is impairing his healing.
[2019-03-04 15:29] LABS: M R Staph aureus DNA By PCR Negative (Negative); Probe Check PASS; Specimen Processing Control PASS; Staph aureus DNA By PCR NEGATIVE (Negative)
== END 2019-03-04 23:59 ==
LOC: WC 13:30
PROVIDERS: Family Provider Nurse Practitioner Adult Health; PCP Nurse Practitioner Adult Health; Referring Provider Podiatrist; Visit Provider Podiatrist
DX: I83.025 Varicose veins of left lower extremity with ulcer other part of foot (principal); L97.522 Non-pressure chronic ulcer of other part of left foot with fat layer exposed; B35.3 Tinea pedis; F31.9 Bipolar disorder, unspecified; M79.672 Pain in left foot
CPT/HCPCS: 11042; 87015; 87070; 87075; 87077; 87101; 87116; 87186; 87205; 87206; 87640; 99213; G0463

== ENCOUNTER → 2019-03-07 12:45 | Outpatient (CLI) | payer MEDICARE, SELFPAY ==
[2019-02-05 14:36] VITALS: BMI 30.4
[2019-03-04 13:07] VITALS: BMI 30.4
--- NOTE | 2019-03-07 12:48 | ADUL_ITS ---
Reason For Study: Atherosclerosis Left Velocities Ext Iliac Artery, dist = 188.1 cm./sec. Common Femoral Artery, mid = 143.9 cm./sec. Supf. Femoral Artery, prox = 133 cm./sec. Supf. Femoral Artery, mid = 119.8 cm./sec. Supf. Femoral Artery, dist = 75.7 cm./sec. Profunda Femoral Artery = 72.3 cm./sec. Popliteal Artery, proximal, = 80.6 cm./sec. Popliteal Artery, mid = 84.3 cm./sec. Popliteal Artery, distal = 83 cm./sec. Post. Tibial Artery, prox = 108.9 cm./sec. Post Tibial Artery, mid = 138 cm./sec. Post Tibial Artery, dist. = 138 cm./sec. Unable to demonstrate flow at proximal peroneal artery. Peroneal Artery, mid = 65.1 cm./sec. Peroneal Artery,dist. = 101.6 cm./sec. Ant.Tibial Artery, prox = 118 cm./sec. Ant Tibial Artery, mid = 105.2 cm./sec. Ant. Tibial Artery, distal = 103.3 cm./sec. Procedure Exam performed in department. Interpretation Summary 1. Left leg with triphasic flow andno significant stenosis. Ordering Physician: Elijah Lott Referring Physician: Ingris Chu Performed By: Rosalba Bey RVT
--- NOTE | 2019-03-07 12:58 | ART_ITS ---
Reason For Study: Atherosclerosis Procedure A bilateral lower extremity continuous wave Doppler with analog waveform analysis and digit brachial indexes. Left Segmental Pressures Left brachial= 141mmHg. Left digit = 137 mmHg. Right Segmental Pressures Right brachial= 132mmHg. Right digit = 138 mmHg. Indices The right digital-brachial index is 0.98. The left digital-brachial index is 0.97. Interpretation Summary 1. Bilateral no significant occlussive disease at rest with DBI 0.98 and 0.97. Ordering Physician: Elijah Lott Referring Physician: Ingris Chu Performed By: Rosalba Bey RVT
== END ==
PROVIDERS: Family Provider Nurse Practitioner Adult Health; PCP Nurse Practitioner Adult Health; Referring Provider Surgery Vascular Surgery; Visit Provider Surgery Vascular Surgery
DX: I70.244 Atherosclerosis of native arteries of left leg with ulceration of heel and midfoot (principal)
CPT/HCPCS: 93922; 93926

== ENCOUNTER 2019-04-02 09:30 | Outpatient (RCR) | payer MEDICARE, SELFPAY ==
[2019-03-05 00:48] VITALS: BP 148/84; PULSE 71; RESP 20; TEMP 36.6
[2019-03-12 09:20] VITALS: BP 137/79; PULSE 76; RESP 16; TEMP 36.4; BMI 30.4
--- NOTE | 2019-03-12 10:07 | PCM.WC.PN ---
(1) Tinea pedis Status: Chronic Current Visit: Yes Qualifiers: Code(s): B35.3 - Tinea pedis (2) Venous insufficiency (chronic) (peripheral) Status: Suspected Current Visit: Yes Code(s): I87.2 - Venous insufficiency (chronic) (peripheral) (3) Chronic ulcer of left foot with fat layer exposed Status: Chronic Current Visit: Yes Code(s): L97.522 - Non-pressure chronic ulcer of other part of left foot with fat layer exposed (4) Colonization status Status: Suspected Current Visit: Yes Code(s): Z22.9 - Carrier of infectious disease, unspecified (5) Maceration of skin Status: Acute Current Visit: Yes Code(s): L98.8 - Other specified disorders of the skin and subcutaneous tissue (6) Tobacco use Status: Chronic Current Visit: Yes Code(s): Z72.0 - Tobacco use Type of Wound Date of Service: 03/12/19 Chief Complaint: left foot ulcer History of Wound: This 59-year-old male with significant past medical history of bipolar disorder presents complaining of a left foot ulcer. The ulcer has been present for several months. He has performed dressing changes as advised with saline wet-to-dry gauze with Betadine to the ulcer site and clotrimazole solution to the webspaces. He tries to wear compression garments. He did attend his vascular surgery referral as advised and additional tests are planned. He would like additional assistance. He tries to take nutritional supplementation. He denies odor, redness. He defers the need for a local anesthetic today and is ready to proceed with debridement. He denies fever, chill, nausea, vomiting. Progress of Wound: Stable - Physical Exam Vital Signs Temp Pulse Resp BP 97.5 F L 76 16 137/79 H 03/12/19 09:20 03/12/19 09:20 03/12/19 09:20 03/12/19 09:20 General: Alert, Oriented x3, Cooperative, No apparent distress Extremities: No cyanosis, Capillary Refill Less than 3 Seconds, No Calf Tenderness, Diminished Peripheral Pulses, Edema Skin: Ulcer/ Wound - No purulence, erythema, string, odor, infection. Peripheral skin is atrophic. He does have continued maceration and moderate amount of serosanguineous drainage from webspaces and toes on the left foot. There is also some weeping and green discoloration with the discharge and his cultures were reviewed Wound Measurements and Assessment WC - Nurse 1 - General Ulcer Measurement Start: 03/12/19 09:20 Freq: Status: Active Protocol: Activity Type Activity Date Activity User E-Sign Co-Sign Detail Recorded Client Recorded Date Recorded By Document 03/12/19 09:20 [facility] [id number] 03/12/19 09:26 [facility] 03/12/19 09:20 Wound Center Nurse 1 [Ulcer Assessment] 1. left second toe cluster -Combined with other wound No -Current Size (cm) - Length 11.4 -Current Size (cm) - Width 6.5 -Current Size (cm) - Depth 0.1 -Total Square Cm 74.10 -Date of Last Picture (Recall this 03/12/19 field) -Photo Taken Yes -Epithelialization None Present -Tunneling No -Undermining/Tunneling No -Circular Undermining No -Exudate Amt Large -Exudate Type Serous -Wound Margin Distinct, Outline Attached -Granulation Amt Medium (34-66%) -Granulation Quality Lingle -Slough/Fibrin Yes -Necrosis Amt Large (67-100%) -Necrotic Tissue Type Adherent Slough -Texture (Brandi-wound Skin Appearance) Assessed, Localized Edema ,Scarring -Moisture (Brandi-wound Skin Appearance Assessed, ) Maceration,Dry/ Scaly -Color (Brandi-wound Skin Appearance) Assessed, Hemosiderin Staining,Palor -Temperature (Brandi-wound Skin No Abnormality Appearance) (Pt Warm) -Tenderness on Palpation (Brandi-wound No Skin Appearance) -Ulcer Cleansing Rinsed/ Irrigated with Saline -Foul Odor after Cleansing No -Anesthetic Used 4% Lidocaine Solution WC - Nurse 2 - General Ulcer CM Notes Start: 03/12/19 09:20 Freq: Status: Active Protocol: Activity Type Activity Date Activity User E-Sign Co-Sign Detail Recorded Client Recorded Date Recorded By Document 03/12/19 09:57 [id number] 03/12/19 09:58 03/12/19 09:57 Wound Center Nurse 2 [Procedure/Treatment] -Time 09:57 -Correct Patient Yes -Correct Side, Site, Position Yes -Correct Procedure Yes -Procedure Performed Yes -Type of Procedure Debridement -Clinical Debridement Subcutaneous -Post Debridement Size (cm) - Length 11.5 -Post Debridement Size (cm) - Width 6.5 -Post Debridement Size (cm) - Depth 0.1 -Total Square Cm 74.75 -Wound/Ulcer Outcome Not Healed -Ulcer Cleansing Rinsed/ Irrigated with Saline -Foul Odor after Cleansing No -Bioengineered Tissue No -Bleeding Controlled with Pressure -Offloading No -Treatment Response Procedure Tolerated Well [See Physician Procedure note for Specifics] Pain Scale: 0-10 Numeric [Pain] -Is Patient Pain Free? Yes Musculoskeletal: No Tenderness to Palpation of Joints or Extremities, Muscle Wasting Neurological: Sensory exam intact to light touch and pain Psych/Mental Status: Normal Affect, Appropriate Debridement Note Post-Debridement Measurements/Treatment WC - Nurse 2 - General Ulcer CM Notes Start: 03/12/19 09:20 Freq: Status: Active Protocol: Activity Type Activity Date Activity User E-Sign Co-Sign Detail Recorded Client Recorded Date Recorded By Document 03/12/19 09:57 [facility] [id number] 03/12/19 09:58 [facility] 03/12/19 09:57 Wound Center Nurse 2 1. left second toe cluster -Time 09:57 -Correct Patient Yes -Correct Side, Site, Position Yes -Correct Procedure Yes -Procedure Performed Yes -Type of Procedure Debridement -Clinical Debridement Subcutaneous -Post Debridement Size (cm) - Length 11.5 -Post Debridement Size (cm) - Width 6.5 -Post Debridement Size (cm) - Depth 0.1 -Total Square Cm 74.75 -Wound/Ulcer Outcome Not Healed -Ulcer Cleansing Rinsed/ Irrigated with Saline -Foul Odor after Cleansing No -Bioengineered Tissue No -Bleeding Controlled with Pressure -Offloading No -Treatment Response Procedure Tolerated Well Pain Scale: 0-10 Numeric Is Patient Pain Free? Yes Wound debrided: left forefoot Laterality: Left Type of Debridement: Excisional debridement Anesthesia Used: 5% Lidocaine Gel Depth: in the subcutaneous layer Percentage of wound debrided: 100 Instrument Used: #15 blade Tissue Removed: fibrous, devitalized subcutaneous, biofilm, slough Severity: Fat Layer Exposed Amount of bleeding with debridement: Mild Bleeding Controlled with: Pressure Patient tolerated procedure well Assessment/Plan Active Problems (Last Reviewed 07/23/17 @ 13:39 by Melany Dumas) Tinea pedis (Chronic) Chronic ulcer of left foot with fat layer exposed (Chronic) Maceration of skin (Acute) Tobacco use (Chronic) Assessment: Delayed healing. left foot ulcer with fat layer exposed, no acute cellulitis. Tinea pedis left foot is suspected. Bacterial colonization with pseudomonas. Pain left foot. Venous insufficiency and varicosities left. 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 malnutrition suspected. Tobacco abuse. Other medical comorbidities Plan: I reviewed and discussed his case including etiology, comprehensive wound healing plan, and anticipated healing time and management. Subcutaneous excisional debridement was performed today. This was performed with assistance of local anesthetic. He also was amenable to obtaining a culture today which was sent for MRSA PCR, aerobic, anaerobic, acid-fast, and fungal. There is Pseudomonas growth so far and he was started on ciprofloxacin oral antibiotic and advised on proper use. A fungal testing is still pending and this will be monitored closely. He will continue with clotrimazole solution in the meantime. He tolerated this well. His increased maceration and worsening status of his left foot ulcer site is noted. I recommended he cleanse the site daily with antimicrobial Hibiclens soap and to change it with Betadine soaked gauze. I recommend offloading with a surgical shoe. I recommend smoking and alcohol cessation to optimize healing. I recommend nutritional supplementation and eating a well-balanced diet. His recent labs were reviewed from his emergency room visit last week. It is noted he did not have leukocytosis. There were also no other gross abnormalities with CBC and CMP. Hemoglobin A1c screening and other inflammatory labs will be considered pending his response. He does not have reported history of diabetes. Additionally due to his delayed healing I recommend arterial and venous studies if there are any vascular abnormalities. His vascular studies arterial were completed last week were reviewed. He has good waveforms to the ankle level and a right PATRICE 1.33 and left PATRICE 1.28. There is evidence of calcification and the accuracy of this test is in question. Further testing may be warranted if continued lack of healing is noted. He was reassured there is no acute cellulitis or abscess noted today. I do not recommend additional antibiotics. He was advised to monitor for development of local signs of infection or systemic illness. This will be considered once his culture results are reviewed. A noninvasive vascular study was previously ordered and is noted he does have by and triphasic waveforms to the ankle levels and he does have noncompressible vessels which is consistent with some degree of arterial disease. It is also noted that he had a venous Doppler exam with reflux evaluation performed in 2017 which demonstrated superficial thrombophlebitis in mid calf varicosities noted in the left lower extremity. I recommend a referral to vascular specialist, Dr. Lott's input is greatly appreciated and further testing plan is noted. I answer his questions. He was advised to follow-up with the wound healing center in 1 week or call sooner if you have any questions or concerns. He also asked for pain medication today. I do not recommend narcotic pain medication. He reports tramadol has not helped him in the past. I recommend that he takes Tylenol in a safe and proper manner and avoid going over the dose recommendations. He is amenable to proceed forward with this pain management plan. Will be considered for complex care due to inability to move forward with treatment recommendations which is impairing his healing. He understands he is at risk for limb loss. . Quality measures reviewed as the following: Updated today: Medication and allergy reconciliation, pain status and follow-up plan. Reviewed on 03-12-2019: up-to-date pneumonia vaccination status was not confirmed due to patient refusal, he has does not have an up-to-date influenza immunization due to patient refusal, he does not have a living will on file. He is a smoker and smoking cessation was reviewed. He does have elevated blood pressure at or above 120/80 mmHg and also elevated body mass index. For these issues I recommend he follows up with his primary care physician as scheduled. He was counseled on the importance of diet and exercise as well.
[2019-03-19 08:58] VITALS: BP 133/75; PULSE 74; RESP 18; TEMP 36.6; BMI 30.4
--- NOTE | 2019-03-19 11:12 | PN.PCM_ITS ---
(1) Tinea pedis Status: Chronic Qualifiers: Code(s): B35.3 - Tinea pedis (2) Venous insufficiency (chronic) (peripheral) Status: Suspected Code(s): I87.2 - Venous insufficiency (chronic) (peripheral) (3) Chronic ulcer of left foot with fat layer exposed Status: Chronic Code(s): L97.522 - Non-pressure chronic ulcer of other part of left foot with fat layer exposed (4) Colonization status Status: Suspected Code(s): Z22.9 - Carrier of infectious disease, unspecified (5) Maceration of skin Status: Acute Code(s): L98.8 - Other specified disorders of the skin and subcutaneous tissue (6) Tobacco use Status: Chronic Code(s): Z72.0 - Tobacco use Type of Wound Date of Service: 03/19/19 Chief Complaint: left foot ulcer History of Wound: This 59-year-old male with significant past medical history of bipolar disorder presents complaining of a left foot ulcer. The ulcer has been present for several months. He has performed dressing changes as advised with saline wet-to-dry gauze with Betadine to the ulcer site and clotrimazole solution to the webspaces. He tries to wear compression garments. He did attend his vascular surgery referral as advised and additional tests are planned. He would like additional assistance. He tries to take nutritional supplementation. He denies odor, redness. He is taken antibiotics as advised and notices remarkable improvement. He denies fever, chill, nausea, vomiting. Progress of Wound: Improving - Physical Exam Vital Signs Temp Pulse Resp BP 97.8 F 74 18 133/75 H 03/19/19 08:58 03/19/19 08:58 03/19/19 08:58 03/19/19 08:58 General: Alert, Oriented x3, Cooperative, No apparent distress Extremities: Capillary Refill Less than 3 Seconds, No Calf Tenderness, Diminished Peripheral Pulses Skin: Ulcer/ Wound - No purulence. Decreased wetness, maceration, odor. The erythema has resolved. There is less skin peeling. There is some hemorrhagic and fibrous tissue and scant granulation tissue noted. The adjacent skin is hairless and atrophic. Wound Measurements and Assessment WC - Nurse 1 - General Ulcer Measurement Start: 03/12/19 09:20 Freq: Status: Active Protocol: Activity Type Activity Date Activity User E-Sign Co-Sign Detail Recorded Client Recorded Date Recorded By Document 03/19/19 08:58 DV [id number] 03/19/19 09:04 DV 03/19/19 08:58 Wound Center Nurse 1 [Ulcer Assessment] 1. left second toe cluster -Combined with other wound No -Current Size (cm) - Length 10.0 -Current Size (cm) - Width 4.5 -Current Size (cm) - Depth 0.1 -Total Square Cm 45.00 -Date of Last Picture (Recall this 03/19/19 field) -Photo Taken Yes -Epithelialization None Present -Tunneling No -Undermining/Tunneling No -Circular Undermining No -Classification - Thickness Full Thickness without Exposed Support Structure -Exudate Amt Medium -Exudate Type Serosanguineous -Wound Margin Flat & Intact -Granulation Amt None Present (0 %) -Granulation Quality N/A -Slough/Fibrin Yes -Necrosis Amt Large (67-100%) -Necrotic Tissue Type Adherent Slough -Structure Exposed None/Limited to Skin Breakdown -Texture (Brandi-wound Skin Appearance) Assessed, Scarring,Rash -Moisture (Brandi-wound Skin Appearance Assessed, ) Weeping -Color (Brandi-wound Skin Appearance) Assessed, Erythema -Temperature (Brandi-wound Skin No Abnormality Appearance) (Pt Warm) -Ulcer Cleansing Rinsed/ Irrigated with Saline -Foul Odor after Cleansing No -Anesthetic Used 4% Lidocaine Solution [Edema Assessment] -Left Calf (cm) 43.0 -Left Ankle (cm) 26.7 WC - Nurse 2 - General Ulcer CM Notes Start: 03/12/19 09:20 Freq: Status: Active Protocol: Activity Type Activity Date Activity User E-Sign Co-Sign Detail Recorded Client Recorded Date Recorded By Document 03/19/19 09:14 JF [id number] 03/19/19 09:15 03/19/19 09:14 Wound Center Nurse 2 [Procedure/Treatment] 1. left second toe cluster -Time 09:14 -Correct Patient Yes -Correct Side, Site, Position Yes -Correct Procedure Yes -Procedure Performed Yes -Type of Procedure Debridement -Clinical Debridement Selective -Post Debridement Size (cm) - Length 10.1 -Post Debridement Size (cm) - Width 4.5 -Post Debridement Size (cm) - Depth 0.1 -Total Square Cm 45.45 -Wound/Ulcer Outcome Not Healed -Ulcer Cleansing Rinsed/ Irrigated with Saline -Foul Odor after Cleansing No -Bioengineered Tissue No -Bleeding Controlled with Pressure -Offloading No -Treatment Response Procedure Tolerated Well [See Physician Procedure note for Specifics] Pain Scale: 0-10 Numeric [Pain] -Is Patient Pain Free? Yes Musculoskeletal: No Tenderness to Palpation of Joints or Extremities, Muscle Wasting, - - Active range of motion digits noted Neurological: Sensory exam intact to light touch and pain Psych/Mental Status: Normal Affect, Appropriate Debridement Note Post-Debridement Measurements/Treatment WC - Nurse 2 - General Ulcer CM Notes Start: 03/12/19 09:20 Freq: Status: Active Protocol: Activity Type Activity Date Activity User E-Sign Co-Sign Detail Recorded Client Recorded Date Recorded By Document 03/12/19 09:57 [id number] 03/12/19 09:58 Document 03/19/19 09:14 [id number] 03/19/19 09:15 03/12/19 03/19/19 09:57 09:14 Wound Center Nurse 2 1. left second toe cluster -Time 09:57 09:14 -Correct Patient Yes Yes -Correct Side, Site, Position Yes Yes -Correct Procedure Yes Yes -Procedure Performed Yes Yes -Type of Procedure Debridement Debridement -Clinical Debridement Subcutaneous Selective -Post Debridement Size (cm) - Length 11.5 10.1 -Post Debridement Size (cm) - Width 6.5 4.5 -Post Debridement Size (cm) - Depth 0.1 0.1 -Total Square Cm 74.75 45.45 -Wound/Ulcer Outcome Not Healed Not Healed -Ulcer Cleansing Rinsed/ Rinsed/ Irrigated with Irrigated with Saline Saline -Foul Odor after Cleansing No No -Bioengineered Tissue No No -Bleeding Controlled with Pressure Pressure -Offloading No No -Treatment Response Procedure Procedure Tolerated Well Tolerated Well Pain Scale: 0-10 Numeric Is Patient Pain Free? Yes Yes Wound debrided: dorsal forefoot Laterality: Left Type of Debridement: Selective debridement Anesthesia Used: 5% Lidocaine Gel Depth: Down to and including healthy tissue Percentage of wound debrided: 10 Instrument Used: #15 blade Tissue Removed: fibrous, devitalized superficial tissue, biofilm, slough Severity: Limited To Skin Breakdown Amount of bleeding with debridement: Mild Bleeding Controlled with: Pressure Patient tolerated procedure well Assessment/Plan Assessment: Delayed healing. left foot ulcer with fat layer exposed, no acute cellulitis. Tinea pedis left foot is suspected. Bacterial colonization with pseudomonas. Pain left foot. Venous insufficiency and varicosities left. 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 malnutrition suspected. Tobacco abuse. Other medical comorbidities Plan: I reviewed and discussed his case including etiology, comprehensive wound healing plan, and anticipated healing time and management. Selectivedebridement was performed today. Previously, he also was amenable to obtaining a culture today which was sent for MRSA PCR, aerobic, anaerobic, acid-fast, and fungal. There is Pseudomonas growth so far and he was started on ciprofloxacin oral antibiotic and advised on proper use. A fungal testing is still pending and this will be monitored closely. He will continue with clotrimazole solution in the meantime. He tolerated this well. He is advised to complete his course of oral antibiotics and appears to be well. I recommend offloading with a surgical shoe. I recommend smoking and alcohol cessation to optimize healing. I recommend nutritional supplementation and eating a well-balanced diet. His recent labs were reviewed from his emergency room visit last week. It is noted he did not have leukocytosis. There were also no other gross abnormalities with CBC and CMP. Hemoglobin A1c screening and other inflammatory labs will be considered pending his response. He does not have reported history of diabetes. Additionally due to his delayed healing I recommend arterial and venous studies if there are any vascular abnormalities. His vascular studies arterial were completed last week were reviewed. He has good waveforms to the ankle level and a right PATRICE 1.33 and left PATRICE 1.28. There is evidence of calcificatio n and the accuracy of this test is in question. Further testing may be warranted if continued lack of healing is noted. . A noninvasive vascular study was previously ordered and is noted he does have by and triphasic waveforms to the ankle levels and he does have noncompressible vessels which is consistent with some degree of arterial disease. It is also noted that he had a venous Doppler exam with reflux evaluation performed in 2017 which demonstrated superficial thrombophlebitis in mid calf varicosities noted in the left lower extremity. I recommend a referral to vascular specialist, Dr. Lott's input is greatly appreciated and further testing plan is noted. I answer his questions. He was advised to follow-up with the wound healing center in 1 week or call sooner if you have any questions or concerns. . Quality measures reviewed as the following: Updated today: Medication and allergy reconciliation, pain status and follow-up plan. Reviewed on 03-12-2019: up-to- date pneumonia vaccination status was not confirmed due to patient refusal, he has does not have an up-to-date influenza immunization due to patient refusal, he does not have a living will on file. He is a smoker and smoking cessation was reviewed. He does have elevated blood pressure at or above 120/80 mmHg and also elevated body mass index. For these issues I recommend he follows up with his primary care physician as scheduled. He was counseled on the importance of diet and exercise as well.
[2019-03-26 09:22] VITALS: BP 118/76; PULSE 68; RESP 18; TEMP 36.3; BMI 30.4
--- NOTE | 2019-03-26 12:31 | PN.PCM_ITS ---
(1) Colonization status Status: Suspected Code(s): Z22.9 - Carrier of infectious disease, unspecified (2) Tinea pedis Status: Chronic Qualifiers: Code(s): B35.3 - Tinea pedis (3) Venous insufficiency (chronic) (peripheral) Status: Suspected Code(s): I87.2 - Venous insufficiency (chronic) (peripheral) (4) Chronic ulcer of left foot with fat layer exposed Status: Chronic Code(s): L97.522 - Non-pressure chronic ulcer of other part of left foot with fat layer exposed (5) Maceration of skin Status: Acute Code(s): L98.8 - Other specified disorders of the skin and subcutaneous tissue (6) Tobacco use Status: Chronic Code(s): Z72.0 - Tobacco use Type of Wound Date of Service: 03/26/19 Chief Complaint: left foot ulcer History of Wound: This 59-year-old male with significant past medical history of bipolar disorder presents complaining of a left foot ulcer. The ulcer has been present for several months. He has performed dressing changes as advised with saline wet-to-dry gauze with Betadine to the ulcer site and clotrimazole solution to the webspaces. His wound culture did grow out Pseudomonas and he has taken ciprofloxacin as prescribed. He has had recent great improvement. He tries to wear compression garments. He did attend his vascular surgery referral as advised and additional tests are planned. He would like additional assistance. He tries to take nutritional supplementation. He denies odor, redness. He is taken antibiotics as advised and notices remarkable improvement. He denies fever, chill, nausea, vomiting. Progress of Wound: Improving - Physical Exam Vital Signs Temp Pulse Resp BP 97.3 F L 68 18 118/76 03/26/19 09:22 03/26/19 09:22 03/26/19 09:22 03/26/19 09:22 General: Alert, Oriented x3, Cooperative, No apparent distress Extremities: No cyanosis, Capillary Refill Less than 3 Seconds, No Calf Tenderness, Diminished Peripheral Pulses, Edema - Mild Skin: Ulcer/ Wound - No purulence, erythema, streaking. Odor and maceration have resolved. His skin is atrophic and some hemorrhagic tissue was exposed serosanguineous drainage from the lateral aspect of the hallux site. His ad jacent skin is hairless, atrophic, and hyperpigmented Wound Measurements and Assessment WC - Nurse 1 - General Ulcer Measurement Start: 03/12/19 09:20 Freq: Status: Active Protocol: Activity Type Activity Date Activity User E-Sign Co-Sign Detail Recorded Client Recorded Date Recorded By Document 03/26/19 09:22 DV [id number] 03/26/19 09:26 DV 03/26/19 09:22 Wound Center Nurse 1 [Ulcer Assessment] 1. left second toe cluster -Combined with other wound No -Current Size (cm) - Length 5.2 -Current Size (cm) - Width 4.5 -Current Size (cm) - Depth 0.1 -Total Square Cm 23.40 -Photo Taken No -Epithelialization None Present -Tunneling No -Undermining/Tunneling No -Circular Undermining No -Classification - Thickness Full Thickness without Exposed Support Structure -Exudate Type Serosanguineous -Wound Margin Indistinct, Non -Visible -Granulation Amt None Present (0 %) -Granulation Quality N/A -Slough/Fibrin Yes -Necrosis Amt Large (67-100%) -Necrotic Tissue Type Adherent Slough -Structure Exposed None/Limited to Skin Breakdown -Texture (Brandi-wound Skin Appearance) Assessed, Localized Edema ,Scarring -Moisture (Brandi-wound Skin Appearance Assessed, ) Weeping -Color (Brandi-wound Skin Appearance) Assessed, Mottled -Temperature (Brandi-wound Skin No Abnormality Appearance) (Pt Warm) -Tenderness on Palpation (Brandi-wound No Skin Appearance) -Ulcer Cleansing Rinsed/ Irrigated with Saline -Foul Odor after Cleansing No -Anesthetic Used 4% Lidocaine Solution [Edema Assessment] -Lower Limb Edema Present Yes -Left Calf (cm) 49.7 -Left Ankle (cm) 31.1 WC - Nurse 2 - General Ulcer CM Notes Start: 03/12/19 09:20 Freq: Status: Active Protocol: Activity Type Activity Date Activity User E-Sign Co-Sign Detail Recorded Client Recorded Date Recorded By Document 03/26/19 09:36 DV [id number] 03/26/19 09:36 DV 03/26/19 09:36 Wound Center Nurse 2 [Procedure/Treatment] 1. left second toe cluster -Correct Patient No -Correct Side, Site, Position No -Correct Procedure No -Procedure Performed No -Wound/Ulcer Outcome Not Healed [See Physician Procedure note for Specifics] Pain Scale: 0-10 Numeric [Pain] -Is Patient Pain Free? Yes Musculoskeletal: No Muscle Wasting, - - Pain with digital compression is decreased. Compartments are soft to foot Neurological: Sensory exam intact to light touch and pain Psych/Mental Status: Normal Affect, Appropriate Debridement Note Post-Debridement Measurements/Treatment WC - Nurse 2 - General Ulcer CM Notes Start: 03/12/19 09:20 Freq: Status: Active Protocol: Activity Type Activity Date Activity User E-Sign Co-Sign Detail Recorded Client Recorded Date Recorded By Document 03/12/19 09:57 [id number] 03/12/19 09:58 Document 03/19/19 09:14 JF [id number] 03/19/19 09:15 JF Document 03/26/19 09:36 DV [id number] 03/26/19 09:36 DV 03/12/19 03/19/19 03/26/19 09:57 09:14 09:36 Wound Center Nurse 2 1. left second toe cluster -Time 09:57 09:14 -Correct Patient Yes Yes No -Correct Side, Site, Position Yes Yes No -Correct Procedure Yes Yes No -Procedure Performed Yes Yes No -Type of Procedure Debridement Debridement -Clinical Debridement Subcutaneous Selective -Post Debridement Size (cm) - Length 11.5 10.1 -Post Debridement Size (cm) - Width 6.5 4.5 -Post Debridement Size (cm) - Depth 0.1 0.1 -Total Square Cm 74.75 45.45 -Wound/Ulcer Outcome Not Healed Not Healed Not Healed -Ulcer Cleansing Rinsed/ Rinsed/ Irrigated with Irrigated with Saline Saline -Foul Odor after Cleansing No No -Bioengineered Tissue No No -Bleeding Controlled with Pressure Pressure -Offloading No No -Treatment Response Procedure Procedure Tolerated Well Tolerated Well Pain Scale: 0-10 Numeric Is Patient Pain Free? Yes Yes Yes No debridement was completed today Assessment/Plan Assessment: Delayed healing. left foot ulcer with fat layer exposed, no acute cellulitis. Tinea pedis left foot is suspected. Bacterial colonization with pseudomonas. Pain left foot. Venous insufficiency and varicosities left. 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 malnutrition suspected. Tobacco abuse. Other medical comorbidities Plan: I reviewed and discussed his case including etiology, comprehensive wound healing plan, and anticipated healing time and management. No debridement was performed today. Previously, he also was amenable to obtaining a culture today which was sent for MRSA PCR, aerobic, anaerobic, acid-fast, and fungal. There is Pseudomonas growth so far and he was started on ciprofloxacin oral antibiotic and advised on proper use. A fungal testing result has not demonstrated growth so far. He will continue with clotrimazole solution in the meantime. He tolerated this well. He is advised to complete his course of oral antibiotics and appears to be well. Refill for ciprofloxacin was provided today. I recomm end offloading with a surgical shoe. I recommend smoking and alcohol cessation to optimize healing. I recommend nutritional supplementation and eating a well- balanced diet. His recent labs were reviewed from his emergency room visit last week. It is noted he did not have leukocytosis. There were also no other gross abnormalities with CBC and CMP. Hemoglobin A1c screening and other inflammatory labs will be considered pending his response. He does not have reported history of diabetes. Additionally due to his delayed healing I recommend arterial and venous studies if there are any vascular abnormalities. His vascular studies arterial were completed last week were reviewed. He has good waveforms to the ankle level and a right PATRICE 1.33 and left PATRICE 1.28. There is evidence of calcification and the accuracy of this test is in question. Further testing may be warranted if continued lack of healing is noted. . A noninvasive vascular study was previously ordered and is noted he does have by and triphasic waveforms to the ankle levels and he does have noncompressible vessels which is consistent with some degree of arterial disease. It is also noted that he had a venous Doppler exam with reflux evaluation performed in 2017 which demonstrated superficial thrombophlebitis in mid calf varicosities noted in the left lower extremity. I recommend a referral to vascular specialist, Dr. Lott's input is greatly appreciated. He will continue with compression dressings and will follow-up with Dr. Lott in 6 months. I answer his questions. He was advised to follow-up with the wound healing center in 1 week or call sooner if you have any questions or concerns. . Quality measures reviewed as the following: Updated today: Medication and allergy reconciliation, pain status and follow-up plan. Reviewed on 03-12-2019: up-to-date pneumonia vaccination status was not confirmed due to patient refusal, he has does not have an up-to-date influenza immunization due to patient refusal, he does not have a living will on file. He is a smoker and smoking cessation was reviewed. He does have elevated blood pressure at or above 120/80 mmHg and also elevated body mass index. For these issues I recommend he follows up with his primary care physician as scheduled. He was counseled on the importance of diet and exercise as well.
[2019-04-02 09:21] VITALS: BP 134/69; PULSE 76; RESP 18; TEMP 35.8; BMI 30.4
--- NOTE | 2019-04-02 09:47 | WC ---
dry gauze and roll gauze to healed wound
--- NOTE | 2019-04-02 13:48 | PN.PCM_ITS ---
(1) Chronic ulcer of left foot with fat layer exposed Status: Resolved Current Visit: Yes Code(s): L97.522 - Non-pressure chronic ulcer of other part of left foot with fat layer exposed (2) Venous insufficiency (chronic) (peripheral) Status: Suspected Current Visit: Yes Code(s): I87.2 - Venous insufficiency (chronic) (peripheral) (3) Tobacco use Status: Chronic Current Visit: Yes Code(s): Z72.0 - Tobacco use (4) Maceration of skin Status: Resolved Current Visit: Yes Code(s): L98.8 - Other specified disorders of the skin and subcutaneous tissue (5) Colonization status Status: Resolved Current Visit: Yes Code(s): Z22.9 - Carrier of infectious disease, unspecified (6) Tinea pedis Status: Suspected Current Visit: Yes Qualifiers: Code(s): B35.3 - Tinea pedis Type of Wound Date of Service: 04/02/19 Chief Complaint: left foot ulcer History of Wound: This 59-year-old male with significant past medical history of bipolar disorder presents complaining of a left foot ulcer. The ulcer has been present for several months. He has performed dressing changes as advised with saline wet-to-dry gauze with Betadine to the ulcer site and clotrimazole solution to the webspaces. His wound culture did grow out Pseudomonas and he has taken ciprofloxacin as prescribed. He has had recent great improvement. He tries to wear compression garments. He did attend his vascular surgery referral as advised and additional tests are planned. He would like additional assistance. He tries to take nutritional supplementation. He denies odor, redness. He is taken antibiotics as advised and notices remarkable improvement. Antibiotics have been completed. He denies fever, chill, nausea, vomiting. Progress of Wound: Healed - Physical Exam Vital Signs Temp Pulse Resp BP 96.4 F L 76 18 134/69 H 04/02/19 09:21 04/02/19 09:21 04/02/19 09:21 04/02/19 09:21 General: Alert, Oriented x3, Cooperative, No apparent distress Extremities: No cyanosis, Capillary Refill Less than 3 Seconds, No Calf Tenderness, Diminished Peripheral Pulses, Edema Skin: Ulcer/ Wound - No purulence, erythema, streaking, odor, infection. The skin is atrophic. There is no interdigital maceration or necrosis. He has some dry skin peeling Wound Measurements and Assessment WC - Nurse 1 - General Ulcer Measurement Start: 03/12/19 09:20 Freq: Status: Active Protocol: Activity Type Activity Date Activity User E-Sign Co-Sign Detail Recorded Client Recorded Date Recorded By Document 04/02/19 09:21 RB [id number] 04/02/19 09:31 RB 04/02/19 09:21 Wound Center Nurse 1 [Ulcer Assessment] 1. left second toe cluster -Combined with other wound No -Current Size (cm) - Length 0.1 -Current Size (cm) - Width 0.1 -Current Size (cm) - Depth 0.1 -Total Square Cm 0.01 -Tunneling No -Undermining/Tunneling No -Circular Undermining No -Exudate Amt None Present -Wound Margin Flat & Intact -Granulation Amt Small (1-33%) -Granulation Quality [place] -Slough/Fibrin Yes -Necrosis Amt Large (67-100%) -Necrotic Tissue Type Adherent Slough -Structure Exposed N/A -Texture (Brandi-wound Skin Appearance) Assessed -Moisture (Brandi-wound Skin Appearance Dry/Scaly ) -Color (Brandi-wound Skin Appearance) Assessed -Temperature (Brandi-wound Skin No Abnormality Appearance) (Pt Warm) -Tenderness on Palpation (Brandi-wound No Skin Appearance) -Ulcer Cleansing Wound Cleanser -Foul Odor after Cleansing No -Anesthetic Used 4% Lidocaine Solution [Edema Assessment] -Left Calf (cm) 42.5 -Left Ankle (cm) 30 WC - Nurse 2 - General Ulcer CM Notes Start: 03/12/19 09:20 Freq: Status: Active Protocol: Activity Type Activity Date Activity User E-Sign Co-Sign Detail Recorded Client Recorded Date Recorded By Document 04/02/19 09:36 MOSHE [id number] 04/02/19 09:38 MOSHE 04/02/19 09:36 Wound Center Nurse 2 [Procedure/Treatment] 1. left second toe cluster -Correct Patient No -Correct Side, Site, Position No -Correct Procedure No -Procedure Performed No -Post Debridement Size (cm) - Length 0 -Post Debridement Size (cm) - Width 0 -Post Debridement Size (cm) - Depth 0 -Total Square Cm 0 -Wound/Ulcer Outcome Healed- Epithelialized [See Physician Procedure note for Specifics] Pain Scale: 0-10 Numeric [Pain] -Is Patient Pain Free? Yes Musculoskeletal: No Tenderness to Palpation of Joints or Extremities, Muscle Wasting Neurological: Sensory exam intact to light touch and pain Psych/Mental Status: Normal Affect, Appropriate Debridement Note Post-Debridement Measurements/Treatment WC - Nurse 2 - General Ulcer CM Notes Start: 03/12/19 09:20 Freq: Status: Active Protocol: Activity Type Activity Date Activity User E-Sign Co-Sign Detail Recorded Client Recorded Date Recorded By Document 03/12/19 09:57 [id number] 03/12/19 09:58 Document 03/19/19 09:14 [id number] 03/19/19 09:15 Document 03/26/19 09:36 DV [id number] 03/26/19 09:36 DV Document 04/02/19 09:36 [id number] 04/02/19 09:38 03/12/19 03/19/19 03/26/19 09:57 09:14 09:36 Wound Center Nurse 2 1. left second toe cluster -Time 09:57 09:14 -Correct Patient Yes Yes No -Correct Side, Site, Position Yes Yes No -Correct Procedure Yes Yes No -Procedure Performed Yes Yes No -Type of Procedure Debridement Debridement -Clinical Debridement Subcutaneous Selective -Post Debridement Size (cm) - Length 11.5 10.1 -Post Debridement Size (cm) - Width 6.5 4.5 -Post Debridement Size (cm) - Depth 0.1 0.1 -Total Square Cm 74.75 45.45 -Wound/Ulcer Outcome Not Healed Not Healed Not Healed -Ulcer Cleansing Rinsed/ Rinsed/ Irrigated with Irrigated with Saline Saline -Foul Odor after Cleansing No No -Bioengineered Tissue No No -Bleeding Controlled with Pressure Pressure -Offloading No No -Treatment Response Procedure Procedure Tolerated Well Tolerated Well Pain Scale: 0-10 Numeric Is Patient Pain Free? Yes Yes Yes 04/02/19 09:36 Wound Center Nurse 2 1. left second toe cluster -Time -Correct Patient No -Correct Side, Site, Position No -Correct Procedure No -Procedure Performed No -Type of Procedure -Clinical Debridement -Post Debridement Size (cm) - Length 0 -Post Debridement Size (cm) - Width 0 -Post Debridement Size (cm) - Depth 0 -Total Square Cm 0 -Wound/Ulcer Outcome Healed- Epithelialized -Ulcer Cleansing -Foul Odor after Cleansing -Bioengineered Tissue -Bleeding Controlled with -Offloading -Treatment Response Pain Scale: 0-10 Numeric Is Patient Pain Free? Yes No debridement was completed today - healed Assessment/Plan Active Problems Tobacco use (Chronic) Assessment: Delayed healing. left foot ulcer, now healed. Tinea pedis left foot was suspected treated with topical antifungal medication. Bacterial colonization with pseudomonas treated with oral antibiotics. Pain left foot. Venous insufficiency and varicosities left. 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 malnutrition suspected. Tobacco abuse. Other medical comorbidities Plan: I reviewed and discussed his case including etiology, comprehensive wound healing plan, and anticipated healing time and management. No debridement was performed today. This site has healed. Previously, he also was amenable to obtaining a culture which was sent for MRSA PCR, aerobic, anaerobic, acid-fast, and fungal. There was Pseudomonas growth so far and he was started on ciprofloxacin oral antibiotic and advised on proper use. A fungal testing result has not demonstrated growth so far. He will continue with clotrimazole solution in the meantime. He tolerated this well. I recommend offloading with a surgical shoe and progressed to a well fitted athletic sneaker after he confirms no drainage is present for 1 week. I recommend smoking and alcohol cessation to optimize healing. I recommend nutritional supplementation and eating a well-balanced diet. His recent labs were reviewed from his emergency room visit last week. It is noted he did not have leukocytosis. There were also no other gross abnormalities with CBC and CMP. Additionally due to his delayed healing I recommend arterial and venous studies if there are any vascular abnormalities. His vascular studies arterial were completed last week were reviewed. He has good waveforms to the ankle level and a right PATRICE 1.33 and left PATRICE 1.28. There is evidence of calcification and the accuracy of this test is in question. Further testing may be warranted if continued lack of healing is noted. . A noninvasive vascular study was previously ordered and is noted he does have by and triphasic waveforms to the ankle levels and he does have noncompressible vessels which is consistent with some degree of arterial disease. It is also noted that he had a venous Doppler exam with reflux evaluation performed in 2017 which demonstrated superficial thrombophlebitis in mid calf varicosities noted in the left lower extremity. I recommend a referral to vascular specialist, Dr. Lott's input is greatly appreciated. He will continue with compression dressings and will follow-up with Dr. Lott in 6 months. I answer his questions. He was advised to follow-up with the wound healing center in 2-3 week for a healed wound check, or call sooner if you have any questions or concerns. . Quality measures reviewed as the following: Updated today: Medication and allergy reconciliation, pain status and follow-up plan. Reviewed on 03-12-2019: up-to-date pneumonia vaccination status was not confirmed due to patient refusal, he has does not have an up-to-date influenza immunization due to patient refusal, he does not have a living will on file. He is a smoker and smoking cessation was reviewed. He does have elevated blood pressure at or above 120/80 mmHg and also elevated body mass index. For these issues I recommend he follows up with his primary care physician as scheduled. He was counseled on the importance of diet and exercise as well.
[2019-04-16 10:03] VITALS: BP 131/74; PULSE 83; RESP 18; TEMP 36.5; BMI 30.4
== END 2019-04-04 23:59 ==
LOC: WC 09:30
PROVIDERS: Family Provider Nurse Practitioner Adult Health; PCP Nurse Practitioner Adult Health; Referring Provider Podiatrist; Visit Provider Podiatrist
DX: I83.025 Varicose veins of left lower extremity with ulcer other part of foot (principal); L97.522 Non-pressure chronic ulcer of other part of left foot with fat layer exposed; B35.3 Tinea pedis; Z72.0 Tobacco use; L97.521 Non-pressure chronic ulcer of other part of left foot limited to breakdown of skin
CPT/HCPCS: 11042; 11045; 97597; 99213; G0463

== ENCOUNTER 2019-04-30 09:30 | Outpatient (RCR) | payer MEDICARE, SELFPAY ==
[2019-04-05 00:45] VITALS: BP 134/69; PULSE 76; RESP 18; TEMP 35.8
[2019-04-16 10:03] VITALS: BMI 30.4
--- NOTE | 2019-04-16 13:40 | PN.PCM_ITS ---
(1) Venous insufficiency (chronic) (peripheral) Status: Chronic Current Visit: Yes Code(s): I87.2 - Venous insufficiency (chronic) (peripheral) (2) Chronic ulcer of left foot with fat layer exposed Status: Resolved Current Visit: Yes Code(s): L97.522 - Non-pressure chronic ulcer of other part of left foot with fat layer exposed (3) Tobacco use Status: Chronic Current Visit: Yes Code(s): Z72.0 - Tobacco use Type of Wound Date of Service: 04/16/19 Chief Complaint: left foot ulcer History of Wound: This 59-year-old male with significant past medical history of bipolar disorder presents complaining of a left foot ulcer. His ulcer recently healing he is here today for healed ulcer check. He relates a little bit of drainage to the great toe and is not sure if that is new or of part of the past one. He was previously treated with antibiotics and with topical antifungal medication. He denies fever, chill, nausea, vomiting, redness or odor. Progress of Wound: Stable and hallux ulcers partially returned - Physical Exam Vital Signs Temp Pulse Resp BP 96.4 F L 76 18 134/69 H 04/05/19 00:45 04/05/19 00:45 04/05/19 00:45 04/05/19 00:45 General: Alert, Oriented x3, Cooperative, No apparent distress Extremities: No cyanosis, Capillary Refill Less than 3 Seconds, No Calf Tenderness, Diminished Peripheral Pulses, Edema Skin: Ulcer/ Wound - No purulence, erythema, string, odor, infection. There is skin discontinuity to the medial dorsal left hallux with hematogenous drainage. The peripheral skin continues to improve and is still atrophic. There is no maceration, necrosis, some hemorrhagic tissue or bogginess or fluctuance on palpation. Wound Measurements and Assessment WC - Nurse 2 - General Ulcer CM Notes Start: 04/16/19 10:32 Freq: Status: Active Protocol: Activity Type Activity Date Activity User E-Sign Co-Sign Detail Recorded Client Recorded Date Recorded By Document 04/16/19 10:32 MOSHE [id number] 04/16/19 10:34 MOSHE 04/16/19 10:32 Wound Center Nurse 2 [Procedure/Treatment] 2-left medial hallux -Time 10:33 -Correct Patient No -Correct Side, Site, Position No -Correct Procedure No -Procedure Performed No -Post Debridement Size (cm) - Length 0.3 -Post Debridement Size (cm) - Width 0.1 -Post Debridement Size (cm) - Depth 0.1 -Total Square Cm 0.03 -Wound/Ulcer Outcome Not Healed -Ulcer Cleansing Rinsed/ Irrigated with Saline -Foul Odor after Cleansing No -Bioengineered Tissue No -Bleeding Controlled with Pressure -Offloading No -Treatment Response Procedure Tolerated Well [See Physician Procedure note for Specifics] Pain Scale: 0-10 Numeric [Pain] -Is Patient Pain Free? Yes Musculoskeletal: No Tenderness to Palpation of Joints or Extremities, Muscle Wasting Neurological: Sensory exam intact to light touch and pain Psych/Mental Status: Normal Affect, Appropriate, Agitated Debridement Note Post-Debridement Measurements/Treatment WC - Nurse 2 - General Ulcer CM Notes Start: 04/16/19 10:32 Freq: Status: Active Protocol: Activity Type Activity Date Activity User E-Sign Co-Sign Detail Recorded Client Recorded Date Recorded By Document 04/16/19 10:32 MOSHE [id number] 04/16/19 10:34 MOSHE 04/16/19 10:32 Wound Center Nurse 2 2-left medial hallux -Time 10:33 -Correct Patient No -Correct Side, Site, Position No -Correct Procedure No -Procedure Performed No -Post Debridement Size (cm) - Length 0.3 -Post Debridement Size (cm) - Width 0.1 -Post Debridement Size (cm) - Depth 0.1 -Total Square Cm 0.03 -Wound/Ulcer Outcome Not Healed -Ulcer Cleansing Rinsed/ Irrigated with Saline -Foul Odor after Cleansing No -Bioengineered Tissue No -Bleeding Controlled with Pressure -Offloading No -Treatment Response Procedure Tolerated Well Pain Scale: 0-10 Numeric Is Patient Pain Free? Yes Wound debrided: lateral dorsal hallux Laterality: Left Assessment/Plan Active Problems Venous insufficiency (chronic) (peripheral) (Chronic) Tobacco use (Chronic) Assessment: Delayed healing. left foot ulcer, now returned to the hallux. Tinea pedis left foot was suspected treated with topical antifungal medication. Bacterial colonization with pseudomonas treated with oral antibiotics. Pain left foot. Venous insufficiency and varicosities left. 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 malnutrition suspected. Tobacco abuse. Other medical comorbidities Plan: I reviewed and discussed his case including etiology, comprehensive wound healing plan, and anticipated healing time and management. No debridement was performed today. This site has healed for the most part however a small portion is reopened to the dorsal lateral hallux. I recommend changing this dressing daily with Aquacell silver. I recommend offloading with a surgical shoe and progressed to a well fitted athletic sneaker after he confirms no drainage is present for 1 week. I recommend smoking and alcohol cessation to optimize healing. I recommend nutritional supplementation and eating a well-balanced diet.. There were also no other gross abnormalities with CBC and CMP. Additionally due to his delayed healing I recommend arterial and venous studies if there are any vascular abnormalities. His vascular studies arterial were completed last week were reviewed. He has good waveforms to the ankle level and a right PATRICE 1.33 and left PATRICE 1.28. There is evidence of calcification and the accuracy of this test is in question. Further testing may be warranted if continued lack of healing is noted. . A noninvasive vascular study was pre viously ordered and is noted he does have by and triphasic waveforms to the ankle levels and he does have noncompressible vessels which is consistent with some degree of arterial disease. It is also noted that he had a venous Doppler exam with reflux evaluation performed in 2017 which demonstrated superficial thrombophlebitis in mid calf varicosities noted in the left lower extremity. I recommend a referral to vascular specialist, Dr. Lott's input is greatly appreciated. He will continue with compression dressings and will follow-up with Dr. Lott in 6 months. I answer his questions. He was advised to follow- up with the wound healing center in 1 week for a healed wound check, or call sooner if you have any questions or concerns. . Quality measures reviewed as the following: Updated today: Medication and allergy reconciliation, pain status and follow-up plan. Reviewed on 03-12-2019: up-to-date pneumonia vaccination status was not confirmed due to patient refusal, he has does not have an up-to-date influenza immunization due to patient refusal, he does not have a living will on file. He is a smoker and smoking cessation was reviewed. He does have elevated blood pressure at or above 120/80 mmHg and also elevated body mass index. For these issues I recommend he follows up with his primary care physician as scheduled. He was counseled on the importance of diet and exercise as well.
--- NOTE | 2019-04-30 10:43 | PN.PCM_ITS ---
(1) Venous insufficiency (chronic) (peripheral) Status: Chronic Current Visit: Yes Code(s): I87.2 - Venous insufficiency (chronic) (peripheral) (2) Chronic ulcer of left foot with fat layer exposed Status: Resolved Current Visit: Yes Code(s): L97.522 - Non-pressure chronic ulcer of other part of left foot with fat layer exposed (3) Tobacco use Status: Chronic Current Visit: Yes Code(s): Z72.0 - Tobacco use Type of Wound Date of Service: 04/30/19 Chief Complaint: left foot ulcer History of Wound: This 59-year-old male with significant past medical history of bipolar disorder presents complaining of a left foot ulcer. His ulcer recently healing he is here today for healed ulcer check. He denies drainage and thinks everything is fully healed at this time again. He was previously treated with antibiotics and with topical antifungal medication. He denies fever, chill, nausea, vomiting, redness or odor. Progress of Wound: Healed - Physical Exam Vital Signs Temp Pulse Resp BP 96.4 F L 76 18 134/69 H 04/05/19 00:45 04/05/19 00:45 04/05/19 00:45 04/05/19 00:45 General: Alert, Oriented x3, Cooperative, No apparent distress HEENT: Atraumatic Extremities: No cyanosis, Capillary Refill Less than 3 Seconds, No Calf Tenderness, Diminished Peripheral Pulses, Edema - Reduced Skin: Ulcer/ Wound - No purulence, erythema, string, odor, infection. The ulcer site is fully epithelialized and has healed. There is no interdigital maceration or necrosis noted. There is reduced hyperpigmentation. There is no blistering noted to the foot. He does have varicosities to the limb Wound Measurements and Assessment WC - Nurse 2 - General Ulcer CM Notes Start: 04/16/19 10:32 Freq: Status: Active Protocol: Activity Type Activity Date Activity User E-Sign Co-Sign Detail Recorded Client Recorded Date Recorded By Document 04/30/19 09:43 MOSHE [id number] 04/30/19 09:45 MOSHE 04/30/19 09:43 Wound Center Nurse 2 [Procedure/Treatment] 2-left medial hallux -Correct Patient No -Correct Side, Site, Position No -Correct Procedure No -Procedure Performed No -Post Debridement Size (cm) - Length 0 -Post Debridement Size (cm) - Width 0 -Post Debridement Size (cm) - Depth 0 -Total Square Cm 0 -Wound/Ulcer Outcome Healed- Epithelialized [See Physician Procedure note for Specifics] Pain Scale: 0-10 Numeric [Pain] -Is Patient Pain Free? Yes Musculoskeletal: No Tenderness to Palpation of Joints or Extremities, Muscle Wasting Neurological: Sensory exam intact to light touch and pain Psych/Mental Status: Normal Affect, Appropriate Debridement Note Post-Debridement Measurements/Treatment WC - Nurse 2 - General Ulcer CM Notes Start: 04/16/19 10:32 Freq: Status: Active Protocol: Activity Type Activity Date Activity User E-Sign Co-Sign Detail Recorded Client Recorded Date Recorded By Document 04/16/19 10:32 [id number] 04/16/19 10:34 Document 04/30/19 09:43 [id number] 04/30/19 09:45 04/16/19 04/30/19 10:32 09:43 Wound Center Nurse 2 2-left medial hallux -Time 10:33 -Correct Patient No No -Correct Side, Site, Position No No -Correct Procedure No No -Procedure Performed No No -Post Debridement Size (cm) - Length 0.3 0 -Post Debridement Size (cm) - Width 0.1 0 -Post Debridement Size (cm) - Depth 0.1 0 -Total Square Cm 0.03 0 -Wound/Ulcer Outcome Not Healed Healed- Epithelialized -Ulcer Cleansing Rinsed/ Irrigated with Saline -Foul Odor after Cleansing No -Bioengineered Tissue No -Bleeding Controlled with Pressure -Offloading No -Treatment Response Procedure Tolerated Well Pain Scale: 0-10 Numeric Is Patient Pain Free? Yes Yes No debridement was completed today - healed today Assessment/Plan Active Problems Venous insufficiency (chronic) (peripheral) (Chronic) Tobacco use (Chronic) Assessment: Delayed healing. left foot ulcer -healed. Tinea pedis left foot was suspected treated with topical antifungal medication. Bacterial colonization with pseudomonas treated with oral antibiotics. Pain left foot. Venous insufficiency and varicosities left. 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 malnutrition suspected. Tobacco abuse. Other medical comorbidities Plan: I reviewed and discussed his case including etiology, comprehensive wound healing plan, and anticipated healing time and management. No debridement was performed today. This site is fully healed at this time. He is advised to discontinue dressing care. To maintain good foot hygiene by washing daily with soap and water, drying the skin well, and performing moisturization avoiding the webspaces. He can discontinue wearing his offloading surgical shoe as well. To return to a clean shoe and to change socks daily. He will be discharged from the wound healing center at this time will follow-up as needed. Additionally due to his delayed healing I recommend arterial and venous studies if there are any vascular abnormalities. His vascular studies arterial were completed last week were reviewed. He has good waveforms to the ankle level and a right PATRICE 1.33 and left PATRICE 1.28. There is evidence of calcification and the accuracy of this test is in question. Further testing may be warranted if continued lack of healing is noted. . A noninvasive vascular study was previously ordered and is noted he does have by and triphasic waveforms to the ankle levels and he does have noncompressible vessels which is consistent with some degree of arterial disease. It is also noted that he had a venous Doppler exam with reflux evaluation performed in 2017 which demonstrated superficial thrombophlebitis in mid calf varicosities noted in the left lower extremity. I recommend a referral to vascular specialist, Dr. Lott's input is greatly appreciated. He will con tinue with compression dressings and will follow-up with Dr. Lott in 6 months. I answer his questions. . Quality measures reviewed as the following: Updated today: Medication and allergy reconciliation, pain status and follow-up plan. Updated 04/30/2019: He denies following with in the past year. Reviewed on 03-12-2019: up-to-date pneumonia vaccination status was not confirmed due to patient refusal, he has does not have an up-to-date influenza immunization due to patient refusal, he does not have a living will on file. He is a smoker and smoking cessation was reviewed. He does have elevated blood pressure at or above 120/80 mmHg and also elevated body mass index. For these issues I recommend he follows up with his primary care physician as scheduled. He was counseled on the importance of diet and exercise as well.
== END 2019-05-03 23:59 ==
LOC: WC 09:30
PROVIDERS: Family Provider Nurse Practitioner Adult Health; PCP Nurse Practitioner Adult Health; Referring Provider Podiatrist; Visit Provider Podiatrist
DX: Z09 Encounter for follow-up examination after completed treatment for conditions other than malignant neoplasm (principal); I73.9 Peripheral vascular disease, unspecified; I87.2 Venous insufficiency (chronic) (peripheral); B35.3 Tinea pedis; R60.0 Localized edema; R03.0 Elevated blood-pressure reading, without diagnosis of hypertension; F31.9 Bipolar disorder, unspecified; F17.200 Nicotine dependence, unspecified, uncomplicated; Z86.72 Personal history of thrombophlebitis
CPT/HCPCS: 99213; G0463

== ENCOUNTER 2019-07-30 11:00 | Outpatient (RCR) | payer MEDICARE, MEDICAID, SELFPAY ==
[2019-04-16 10:03] VITALS: BMI 30.4
[2019-07-16 09:39] VITALS: BP 145/82; PULSE 90; RESP 22; TEMP 36.6; BMI 33.4
--- NOTE | 2019-07-16 13:38 | PCM.WC.HP ---
(1) Tinea pedis Status: Acute Qualifiers: Code(s): B35.3 - Tinea pedis (2) Cellulitis of left foot Status: Suspected Code(s): L03.116 - Cellulitis of left lower limb (3) Venous insufficiency (chronic) (peripheral) Status: Chronic Code(s): I87.2 - Venous insufficiency (chronic) (peripheral) (4) Colonization status Status: Suspected Code(s): Z22.9 - Carrier of infectious disease, unspecified (5) Maceration of skin Status: Chronic Code(s): L98.8 - Other specified disorders of the skin and subcutaneous tissue History of Present Illness Date of Service: 07/16/19 Chief Complaint: left foot ulcer History of Wound: This 59-year-old male with significant past medical history of bipolar disorder presents complaining of a left foot ulcer. This presented with an onset of about 3 weeks ago. He noticed skin peeling and moisture again. He has mild drainage to his ulcer site. He denies trauma. He has been trying to wear compression as advised during his last ulcer care plan. Past Medical History Past Medical History: Chronic Problems Venous insufficiency (chronic) (peripheral) (Chronic) Maceration of skin (Chronic) Bipolar disorder (Chronic) Schizophrenia (Chronic) Tobacco abuse (Chronic) GERD (gastroesophageal reflux disease) (Chronic) Low HDL (under 40) (Chronic) COPD (chronic obstructive pulmonary disease) (Chronic) Obesity (BMI 30.0-34.9) (Chronic) Tobacco use (Chronic) Alcohol abuse (Chronic) Past Medical History: Bipolar Surgical History: - - R knee surgery (s/p trauma), BL Inguinal Hernia Repairs, Cholecystectomy. Allergies/Adverse Reactions: Allergies codeine Adverse Reaction (Verified 07/16/19 10:00) Upset Stomach haloperidol [From Haldol] Adverse Reaction (Verified 07/16/19 10:00) Abd cramps/diarrhea haloperidol lactate [From Haldol] Adverse Reaction (Verified 05/02/18 10:30) Abd cramps/diarrhea ziprasidone Adverse Reaction (Verified 07/16/19 10:00) Unknown Home Medications: Ambulatory Orders Medication Instructions Recorded Benztropine [Cogentin] 1 mg PO QHS 02/18/15 [place] Carbonate [[place] 600 mg PO QHS 02/18/15 Carbonate ER] Olanzapine [Zyprexa] 10 mg PO DAILY 02/18/15 Omeprazole [Prilosec] 20 mg PO BID 02/18/15 Spironolactone [Aldactone] 25 mg PO DAILY 02/18/15 Fluphenazine Decanoate 25 mg IJ X1 MDD Q 2 WEEKS 07/29/16 Multivitamins,Ther W-Minerals 1 tab PO DAILYCM tab 08/01/16 [Multivitamin With Minerals ([facility])] Acetaminophen [Pharbetol] 1,000 mg PO TID PRN 05/02/18 Albuterol Inhaler [Ventolin Hfa 2 puff INHALATION Q4H PRN PRN 05/02/18 (SP)] Cholestyramine/Aspartame 4 gm PO DAILY 05/02/18 [Cholestyramine Light Packet] Docusate Sodium [Colace] 100 mg PO BID PRN 05/02/18 Ergocalciferol (Vitamin D2) 50,000 unit PO QWEEK 05/02/18 [Vitamin D2] Fluticasone 0.05% [Flonase Nasal 1 spray NASAL DAILY PRN 05/02/18 [place]] Guaifenesin [Mucus Relief] 400 mg PO Q8H PRN 05/02/18 Montelukast Sodium 10 mg PO DAILY 05/02/18 Naproxen [Naprosyn] 500 mg PO DAILY PRN PRN 05/02/18 Nicotine [Nicotine Patch] 1 each TD DAILY PRN 05/02/18 Olanzapine [Zyprexa] 20 mg PO QHS 05/02/18 [place]-3 Fatty Acids/Fish Oil 2 capsule PO BID 05/02/18 [[place] 3 1,000 mg Softgel] Polyethylene Glycol 3350 [Miralax] 17 gm PO DAILY PRN 05/02/18 Simvastatin [Zocor] 20 mg PO QHS 05/02/18 Cholecalciferol (Vitamin D3) 2,000 unit PO DAILY 12/24/18 [Vitamin D3] Fluconazole [Diflucan] 150 mg PO QWEEK #2 tab 12/24/18 Ketoconazole [Nizoral Cream] 1 applic TOPICAL DAILY #1 tube 12/24/18 - Family History Maternal Family History: Family History (Last Reviewed 07/23/17 @ 13:39 by Melany Dumas) Mother Diabetes Diabetes Paternal Family History: Family History (Last Reviewed 07/23/17 @ 13:39 by Melany Dumas) Mother Diabetes Diabetes Smoking Status: Current every day smoker Review of Systems Constitutional: Denies: Chills, Fever Cardiovascular: Denies: Claudication Respiratory: Denies: Cough, Shortness of Breath Gastrointestinal: Denies: Nausea, Vomiting Skin: Reports: Skin Changes, Wounds Neurological: Denies: Numbness - Physical Exam Vital Signs Temp Pulse Resp BP 97.9 F 90 22 H 145/82 H 07/16/19 09:39 07/16/19 09:39 07/16/19 09:39 07/16/19 09:39 General: Alert, Oriented x3, Cooperative HEENT: Atraumatic Extremities: No cyanosis, Capillary Refill Less than 3 Seconds, No Calf Tenderness - Negative Alfredo and [place], Diminished Peripheral Pulses, Edema - Lower extremity bilateral varicosities Skin: Ulcer/ Wound - No purulence, erythema, streaking, odor, infection. There is peripheral maceration and skin peeling to the interdigital spaces and plantar sulcus. The skin discontinuity with some hemorrhagic tissue noted is near the dorsal second toe and third toe. With mild serosanguineous drainage noted Wound Measurements and Assessment WC - Nurse 1 - General Ulcer Measurement Start: 07/16/19 09:38 Freq: Status: Active Protocol: Activity Type Activity Date Activity User E-Sign Co-Sign Detail Recorded Client Recorded Date Recorded By Document 07/16/19 09:39 DL [id number] 07/16/19 09:58 DL 07/16/19 09:39 Wound Center Nurse 1 [Ulcer Assessment] #3 L Foot toes cluster -Current Size (cm) - Length 5 -Current Size (cm) - Width 1.4 -Current Size (cm) - Depth 0.1 -Total Square Cm 7.0 -Photo Taken Yes -Tunneling No -Undermining/Tunneling No -Exudate Amt Small -Exudate Type Serosanguineous -Wound Margin Indistinct, Non -Visible -Granulation Amt Large (67-100%) -Granulation Quality [place] -Necrosis Amt Small (1-33%) -Necrotic Tissue Type Adherent Slough -Structure Exposed N/A -Texture (Brandi-wound Skin Appearance) Excoriation, Localized Edema -Moisture (Brandi-wound Skin Appearance Maceration ) -Color (Brandi-wound Skin Appearance) Hemosiderin Staining -Temperature (Brandi-wound Skin No Abnormality Appearance) (Pt Warm) -Tenderness on Palpation (Brandi-wound No Skin Appearance) -Ulcer Cleansing Wound Cleanser -Foul Odor after Cleansing No -Anesthetic Used 4% Lidocaine Solution - Nurse 2 - General Ulcer CM Notes Start: 07/16/19 09:38 Freq: Status: Active Protocol: Activity Type Activity Date Activity User E-Sign Co-Sign Detail Recorded Client Recorded Date Recorded By Document 07/16/19 10:35 [id number] 07/16/19 10:37 07/16/19 10:35 Wound Center Nurse 2 [Procedure/Treatment] -Time 10:36 -Correct Patient Yes -Correct Side, Site, Position Yes -Correct Procedure Yes -Procedure Performed Yes -Type of Procedure Debridement -Clinical Debridement Selective -Post Debridement Size (cm) - Length 5 -Post Debridement Size (cm) - Width 1.5 -Post Debridement Size (cm) - Depth 0.1 -Total Square Cm 7.5 -Wound/Ulcer Outcome Not Healed -Ulcer Cleansing Rinsed/ Irrigated with Saline -Foul Odor after Cleansing No -Bleeding Controlled with Pressure -Offloading Yes -Type of Offloading Surgical Shoe -Treatment Response Procedure Tolerated Well [See Physician Procedure note for Specifics] Pain Scale: 0-10 Numeric [Pain] -Is Patient Pain Free? Yes Musculoskeletal: Muscle Wasting, - - Impairments of foot and lower extremity remain soft Neurological: Sensory exam intact to light touch and pain Psych/Mental Status: Normal Affect, Appropriate Debridement Note Post-Debridement Measurements/Treatment - Nurse 2 - General Ulcer CM Notes Start: 07/16/19 09:38 Freq: Status: Active Protocol: Activity Type Activity Date Activity User E-Sign Co-Sign Detail Recorded Client Recorded Date Recorded By Document 07/16/19 10:35 [id number] [id number] 07/16/19 10:37 07/16/19 10:35 Wound Center Nurse 2 #3 L Foot toes cluster -Time 10:36 -Correct Patient Yes -Correct Side, Site, Position Yes -Correct Procedure Yes -Procedure Performed Yes -Type of Procedure Debridement -Clinical Debridement Selective -Post Debridement Size (cm) - Length 5 -Post Debridement Size (cm) - Width 1.5 -Post Debridement Size (cm) - Depth 0.1 -Total Square Cm 7.5 -Wound/Ulcer Outcome Not Healed -Ulcer Cleansing Rinsed/ Irrigated with Saline -Foul Odor after Cleansing No -Bleeding Controlled with Pressure -Offloading Yes -Type of Offloading Surgical Shoe -Treatment Response Procedure Tolerated Well Pain Scale: 0-10 Numeric Is Patient Pain Free? Yes Wound debrided: toes and sulcus Laterality: Left Type of Debridement: Selective debridement Anesthesia Used: 5% Lidocaine Gel Depth: Down to and including healthy tissue Percentage of wound debrided: 100 Instrument Used: #15 blade Tissue Removed: fibrous, maceration, devitalized tissue, biofilm, slough Severity: Limited To Skin Breakdown Amount of bleeding with debridement: None Patient tolerated procedure well Assessment/Plan Assessment: Return left foot ulcer. Tinea pedis left foot was suspected treated with topical antifungal medication. Bacterial colonization suspected with prior history of pseudomonas treated with oral antibiotics. Pain left foot. Venous insufficiency and varicosities left. 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 malnutrition suspected. Tobacco abuse. Other medical comorbidities Plan: I reviewed and discussed his case including etiology, comprehensive wound healing plan, and anticipated healing time and management. Selective debridement was performed today as noted in the clinical panel. He was advised to change his dressing daily with Betadine gauze placed in the interspaces and to wash with antimicrobial medical grade Angela-Hex soap. This was dispensed. To maintain good foot hygiene by washing daily with soap and water, drying the skin well, and performing moisturization avoiding the webspaces. He can return to wearing his offloading surgical shoe as well. To change socks daily. Aerobic and anaerobic cultures were obtained. Tissue scrapings were also sent for fungal testing. The results are pending. Additional antifungal or antibiotics will be considered pending the results. I also recommend he resume Tubigrip used to control his edema and this was fitted and dispensed today. To avoid idle standing or sitting. To elevate the limbs at rest. Smoking cessation was also advised. Last session and the wound healing center, arterial and venous studies were completed. He has good waveforms to the ankle level and a right PATRICE 1.33 and left PATRICE 1.28. There is evidence of calcification and the accuracy of this test is in question. Further testing may be warranted if continued lack of healing is noted. . A noninvasive vascular study was previously ordered and is noted he does have by and triphasic waveforms to the ankle levels and he does have noncompressible vessels which is consistent with some degree of arterial disease. It is also noted that he had a venous Doppler exam with reflux evaluation performed in 2017 which demonstrated superficial thrombophlebitis in mid calf varicosities noted in the left lower extremity. I recommend a referral to vascular specialist, Dr. Lott's input is greatly appreciated. To follow-up with the wound healing center in 1 week or call sooner if you have any questions or concerns. I answer his questions. . Quality measures reviewed as the following: Updated today: Medication and allergy reconciliation, he denies falling within the past year. Updated 04/30/2019: He denies following with in the past year. Reviewed on 03-12-2019: up-to-date pneumonia vaccination status was not confirmed due to patient refusal, he has does not have an up-to-date influenza immunization due to patient refusal, he does not have a living will on file. He is a smoker and smoking cessation was reviewed. He does have elevated blood pressure at or above 120/80 mmHg and also elevated body mass index. For these issues I recommend he follows up with his primary care physician as scheduled. He was counseled on the importance of diet and exercise as well.
[2019-07-16 14:48] LABS: M R Staph aureus DNA By PCR POSITIVE (Negative); Probe Check PASS; Staph aureus DNA By PCR POSITIVE (Negative)
[2019-07-23 09:49] VITALS: BP 124/54; PULSE 76; RESP 16; TEMP 36.9; BMI 33.4
--- NOTE | 2019-07-23 13:17 | PN.PCM_ITS ---
(1) Tinea pedis Status: Acute Qualifiers: Code(s): B35.3 - Tinea pedis (2) Cellulitis of left foot Status: Suspected Code(s): L03.116 - Cellulitis of left lower limb (3) Venous insufficiency (chronic) (peripheral) Status: Chronic Code(s): I87.2 - Venous insufficiency (chronic) (peripheral) (4) Colonization status Status: Suspected Code(s): Z22.9 - Carrier of infectious disease, unspecified (5) Maceration of skin Status: Chronic Code(s): L98.8 - Other specified disorders of the skin and subcutaneous tissue Type of Wound Date of Service: 07/23/19 Chief Complaint: left foot ulcer History of Wound: This 59-year-old male with significant past medical history of bipolar disorder presents complaining of a left foot ulcer. He has been taking ciprofloxacin and doxycycline as advised. He denies fever, chill, nausea, vomiting. He relates he is only been taking the antibiotic for less than 1 day. He has a nurse that helps with his dressing changes. He denies redness or odor. Progress of Wound: Unchanged - Physical Exam Vital Signs Temp Pulse Resp BP 98.5 F 76 16 124/54 H 07/23/19 09:49 07/23/19 09:49 07/23/19 09:49 07/23/19 09:49 General: Alert, Oriented x3, Cooperative, No apparent distress Extremities: No cyanosis, Capillary Refill Less than 3 Seconds, No Calf Tenderness, Diminished Peripheral Pulses, Edema Skin: Ulcer/ Wound - No purulence on expression erythema or streaking or odor. There is continued skin peeling and maceration to the sulcus in the first and second interspaces of the left foot. The prior skin discontinuity area with granulation tissue has healed with full epithelialization to the dorsal lateral second toe. The skin is hairless, atrophic, and hypopigmented with varicosities to the left lower extremity Wound Measurements and Assessment WC - Nurse 1 - General Ulcer Measurement Start: 07/16/19 09:38 Freq: Status: Active Protocol: Activity Type Activity Date Activity User E-Sign Co-Sign Detail Recorded Client Recorded Date Recorded By Document 07/23/19 09:49 [facility] [id number] 07/23/19 09:57 [facility] 07/23/19 09:49 Wound Center Nurse 1 [Ulcer Assessment] #3 L Foot toes cluster -Combined with other wound No -Current Size (cm) - Length 5 -Current Size (cm) - Width 2.5 -Current Size (cm) - Depth 0.1 -Total Square Cm 12.5 -Photo Taken No -Epithelialization None Present -Tunneling No -Undermining/Tunneling No -Circular Undermining No -Exudate Amt Small -Exudate Type Serous -Wound Margin Flat & Intact -Granulation Amt Large (67-100%) -Granulation Quality Red -Slough/Fibrin Yes -Necrosis Amt Small (1-33%) -Necrotic Tissue Type Adherent Slough -Texture (Brandi-wound Skin Appearance) Assessed, Scarring -Moisture (Brandi-wound Skin Appearance Assessed, ) Maceration -Color (Brandi-wound Skin Appearance) Assessed,Palor -Temperature (Brandi-wound Skin No Abnormality Appearance) (Pt Warm) -Tenderness on Palpation (Brandi-wound Yes Skin Appearance) -Ulcer Cleansing soapy water -Foul Odor after Cleansing No [Edema Assessment] -Lower Limb Edema Present Yes -Left Calf (cm) 40.5 -Left Ankle (cm) 31.2 WC - Nurse 2 - General Ulcer CM Notes Start: 07/16/19 09:38 Freq: Status: Active Protocol: Activity Type Activity Date Activity User E-Sign Co-Sign Detail Recorded Client Recorded Date Recorded By Document 07/23/19 10:45 [facility] [id number] 07/23/19 10:47 [facility] 07/23/19 10:45 Wound Center Nurse 2 [Procedure/Treatment] #3 L Foot toes cluster -Correct Patient No -Correct Side, Site, Position No -Correct Procedure No -Procedure Performed No -Post Debridement Size (cm) - Length 0 -Post Debridement Size (cm) - Width 0 -Post Debridement Size (cm) - Depth 0 -Total Square Cm 0 -Wound/Ulcer Outcome Healed- Epithelialized [See Physician Procedure note for Specifics] Pain Scale: 0-10 Numeric [Pain] -Is Patient Pain Free? Yes Musculoskeletal: No Tenderness to Palpation of Joints or Extremities, Muscle Wasting Neurological: Sensory exam intact to light touch and pain Psych/Mental Status: Normal Affect, Appropriate Debridement Note Post-Debridement Measurements/Treatment WC - Nurse 2 - General Ulcer CM Notes Start: 07/16/19 09:38 Freq: Status: Active Protocol: Activity Type Activity Date Activity User E-Sign Co-Sign Detail Recorded Client Recorded Date Recorded By Document 07/16/19 10:35 [id number] 07/16/19 10:37 Document 07/23/19 10:45 [id number] 07/23/19 10:47 07/16/19 07/23/19 10:35 10:45 Wound Center Nurse 2 #3 L Foot toes cluster -Time 10:36 -Correct Patient Yes No -Correct Side, Site, Position Yes No -Correct Procedure Yes No -Procedure Performed Yes No -Type of Procedure Debridement -Clinical Debridement Selective -Post Debridement Size (cm) - Length 5 0 -Post Debridement Size (cm) - Width 1.5 0 -Post Debridement Size (cm) - Depth 0.1 0 -Total Square Cm 7.5 0 -Wound/Ulcer Outcome Not Healed Healed- Epithelialized -Ulcer Cleansing Rinsed/ Irrigated with Saline -Foul Odor after Cleansing No -Bleeding Controlled with Pressure -Offloading Yes -Type of Offloading Surgical Shoe -Treatment Response Procedure Tolerated Well Pain Scale: 0-10 Numeric Is Patient Pain Free? Yes Yes No debridement was completed today - The ulcer site has healed Assessment/Plan Assessment: Healed left foot ulcer. Tinea pedis left foot work-up is in process. Bacterial colonization treated with oral antibiotics currently. Pain left foot. Venous insufficiency and varicosities left. 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 malnutrition suspected. Tobacco abuse. Other medical comorbidities Plan: I reviewed and discussed his case including etiology, comprehensive wound healing plan, and anticipated healing time and management. Debridement was not performed today because the ulcer site has healed. He was advised to change his dressing daily with Betadine gauze placed in the interspaces and to wash with antimicrobial medical grade Angela-Hex soap. This was dispensed. To maintain good foot hygiene by washing daily with soap and water, drying the skin well, and performing moisturization avoiding the webspaces. He can return to wearing his offloading surgical shoe as well. To change socks daily. Aerobic and anaerobic cultures were obtained. Tissue scrapings were also sent for fungal testing. The results are pending. Cultures demonstrated Pseudomonas, actinobacter baumanni, MRSA, Actinomyces odontyticus. To continue Tubigrip for compression. To avoid idle standing or sitting. To elevate the limbs at rest. Smoking cessation was also advised. Last session and the wound healing center, arterial and venous studies were completed. He has good waveforms to the ankle level and a right PATRICE 1.33 and left PATRICE 1.28. There is evidence of calcification and the accuracy of this test is in question. Further testing may be warranted if continued lack of healing is noted. . A noninvasive vascular study was previously ordered and is noted he does have by and triphasic waveforms to the ankle levels and he does have noncompressible vessels which is consistent with some degree of arterial disease. It is also noted that he had a venous Doppler exam with reflux evaluation performed in 2017 which demonstrated superficial thrombophlebitis in mid calf varicosities noted in the left lower extremity. I recommend a referral to vascular specialist, Dr. Lott's input is greatly appreciated. To follow-up with the wound healing center in 1 week or call sooner if you have any questions or concerns. I answer his questions. . Quality measures reviewed as the following: Updated today: Medication and allergy reconciliation, he denies falling within the past year. Updated 04/30/2019: He denies following with in the past year. Reviewed on 03-12-2019: up-to-date pneumonia vaccination status was not confirmed due to patient refusal, he has does not have an up-to-date influenza immunization due to patient refusal, he does not have a living will on file. He is a smoker and smoking cessation was reviewed. He does have elevated blood pressure at or above 120/80 mmHg and also elevated body mass index. For these issues I recommend he follows up with his primary care physician as scheduled. He was counseled on the importance of diet and exercise as well.
[2019-07-30 10:43] VITALS: BP 127/75; PULSE 70; RESP 18; TEMP 36.8; BMI 33.4
--- NOTE | 2019-07-30 11:09 | PN.PCM_ITS ---
(1) Tinea pedis Status: Resolved Current Visit: Yes Qualifiers: Code(s): B35.3 - Tinea pedis (2) Cellulitis of left foot Status: Resolved Current Visit: Yes Code(s): L03.116 - Cellulitis of left lower limb (3) Venous insufficiency (chronic) (peripheral) Status: Chronic Current Visit: Yes Code(s): I87.2 - Venous insufficiency (chronic) (peripheral) (4) Colonization status Status: Resolved Current Visit: Yes Code(s): Z22.9 - Carrier of infectious disease, unspecified (5) Maceration of skin Status: Resolved Current Visit: Yes Code(s): L98.8 - Other specified disorders of the skin and subcutaneous tissue Type of Wound Date of Service: 07/30/19 Chief Complaint: left foot ulcer History of Wound: This 59-year-old male with significant past medical history of bipolar disorder presents complaining of a left foot ulcer. He has been taking ciprofloxacin and doxycycline as advised. He has a couple days left. He denies fever, chill, nausea, vomiting. He has a nurse that helps with his dressing changes. He denies redness or odor. He wears Tubigrip for compression management elevate 3 times a day for 30 minutes. He relates he does have some compression stockings at home and they are little bit worn out. He is not able to afford an additional pair. Progress of Wound: healed , improved - Physical Exam Vital Signs Temp Pulse Resp BP 98.2 F 70 18 127/75 H 07/30/19 10:43 07/30/19 10:43 07/30/19 10:43 07/30/19 10:43 General: Alert, Oriented x3, Cooperative, No apparent distress HEENT: Atraumatic Extremities: No cyanosis, Capillary Refill Less than 3 Seconds, No Calf Tenderness, Diminished Peripheral Pulses, Edema Skin: Ulcer/ Wound - There is full epithelialization. There is no skin discontinuity. The skin peeling, maceration, and moisture is resolved. His skin is atrophic, hairless, and hyperpigmented Wound Measurements and Assessment WC - Nurse 1 - General Ulcer Measurement Start: 07/16/19 09:38 Freq: Status: Active Protocol: Activity Type Activity Date Activity User E-Sign Co-Sign Detail Recorded Client Recorded Date Recorded By Document 07/30/19 10:43 DV [id number] 07/30/19 10:48 07/30/19 10:43 Wound Center Nurse 1 [Edema Assessment] -Lower Limb Edema Present No -Right Calf (cm) 40.0 -Right Ankle (cm) 29.0 -Left Calf (cm) 44.2 -Left Ankle (cm) 32.2 Musculoskeletal: No Tenderness to Palpation of Joints or Extremities, Muscle Wasting Neurological: Sensory exam intact to light touch and pain Psych/Mental Status: Normal Affect, Appropriate Debridement Note Post-Debridement Measurements/Treatment WC - Nurse 2 - General Ulcer CM Notes Start: 07/16/19 09:38 Freq: Status: Active Protocol: Activity Type Activity Date Activity User E-Sign Co-Sign Detail Recorded Client Recorded Date Recorded By Document 07/16/19 10:35 [id number] 07/16/19 10:37 Document 07/23/19 10:45 [id number] 07/23/19 10:47 07/16/19 07/23/19 10:35 10:45 Wound Center Nurse 2 #3 L Foot toes cluster -Time 10:36 -Correct Patient Yes No -Correct Side, Site, Position Yes No -Correct Procedure Yes No -Procedure Performed Yes No -Type of Procedure Debridement -Clinical Debridement Selective -Post Debridement Size (cm) - Length 5 0 -Post Debridement Size (cm) - Width 1.5 0 -Post Debridement Size (cm) - Depth 0.1 0 -Total Square Cm 7.5 0 -Wound/Ulcer Outcome Not Healed Healed- Epithelialized -Ulcer Cleansing Rinsed/ Irrigated with Saline -Foul Odor after Cleansing No -Bleeding Controlled with Pressure -Offloading Yes -Type of Offloading Surgical Shoe -Treatment Response Procedure Tolerated Well Pain Scale: 0-10 Numeric Is Patient Pain Free? Yes Yes No debridement was completed today - The ulcer site remains healed Assessment/Plan Active Problems (Last Reviewed 07/23/17 @ 13:39 by Melany Dumas) Venous insufficiency (chronic) (peripheral) (Chronic) Assessment: Healed left foot ulcer. Tinea pedis left foot is suspected and the final fungal culture result is still pending. There is no preliminary information so far. Bacterial colonization clinically resolved. Pain left foot. Venous insufficiency and varicosities left. 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 malnutrition suspected. Tob acco abuse. Other medical comorbidities Plan: I reviewed and discussed his case including etiology, comprehensive wound healing plan, and anticipated healing time and management. Debridement was not performed today because the ulcer site has healed. He was advised to discontinue dressing care. To wash with antimicrobial medical grade Angela-Hex soap. To maintain good foot hygiene by washing daily with soap and water, drying the skin well, and performing moisturization avoiding the webspaces. He can return to wearing his offloading surgical shoe as well. To change socks daily. Aerobic and anaerobic cultures were obtained previously and were reviewed with multi-organism growth as noted below. Tissue scrapings were also sent for fungal testing. The results are pending. Cultures demonstrated Pseudomonas, actinobacter baumanni, MRSA, Actinomyces odontyticus. He has 2 days left of his oral antibiotics and he was advised to complete this session. He denies diarrhea or other side effects. To continue Tubigrip for compression. To avoid idle standing or sitting. To elevate the limbs at rest. Smoking cessation was also advised. Last session and the wound healing center, arterial and venous studies were completed. He has good waveforms to the ankle level and a right PATRICE 1.33 and left PATRICE 1.28. There is evidence of calcification and the accuracy of this test is in question. Further testing may be warranted if continued lack of healing is noted. . A noninvasive vascular study was previously ordered and is noted he does have by and triphasic waveforms to the ankle levels and he does have noncompressible vessels which is consistent with some degree of arterial disease. It is also noted that he had a venous Doppler exam with reflux evaluation performed in 2017 which demonstrated superficial thrombophlebitis in mid calf varicosities noted in the left lower extremity. I recommend a referral to vascular specialist, Dr. Lott's input is greatly appreciated. To follow-up with the wound healing center as needed. He is discharged today. I answer his questions. . Quality measures reviewed as the following: Updated today: Medication and allergy reconciliation, he denies falling within the past year. Updated 04/30/2019: He denies following with in the past year. Reviewed on 03-12-2019: up-to-date pneumonia vaccination status was not confirmed due to patient refusal, he has does not have an up-to-date influenza immunization due to patient refusal, he does not have a living will on file. He is a smoker and smoking cessation was reviewed. He does have elevated blood pressure at or above 120/80 mmHg and also elevated body mass index. For these issues I recommend he follows up with his primary care physician as scheduled. He was counseled on the importance of diet and exercise as well.
== END 2019-08-03 23:59 ==
LOC: WC 11:00
PROVIDERS: PCP Nurse Practitioner Adult Health; Visit Provider Podiatrist
DX: L03.116 Cellulitis of left lower limb (principal); B35.3 Tinea pedis; E66.9 Obesity, unspecified; J44.9 Chronic obstructive pulmonary disease, unspecified; I87.2 Venous insufficiency (chronic) (peripheral); F31.9 Bipolar disorder, unspecified; F20.9 Schizophrenia, unspecified; Z79.51 Long term (current) use of inhaled steroids; Z79.899 Other long term (current) drug therapy; F17.200 Nicotine dependence, unspecified, uncomplicated
CPT/HCPCS: 87015; 87070; 87075; 87077; 87101; 87116; 87186; 87205; 87206; 87640; 97597; 99212; 99213; G0463

== ENCOUNTER 2019-10-01 14:30 | Outpatient (RCR) | payer MEDICARE, MEDICAID, SELFPAY ==
[2019-09-17 11:26] VITALS: BP 144/85; PULSE 77; RESP 22; TEMP 36.4; BMI 33.4
--- NOTE | 2019-09-17 11:50 | PCM.WC.PN ---
(1) Ulcer of left foot, limited to breakdown of skin Status: Acute Current Visit: Yes Code(s): L97.521 - Non-pressure chronic ulcer of other part of left foot limited to breakdown of skin (2) Cellulitis of left foot Status: Acute Current Visit: Yes Code(s): L03.116 - Cellulitis of left lower limb (3) Colonization status Status: Suspected Current Visit: Yes Code(s): Z22.9 - Carrier of infectious disease, unspecified Type of Wound Date of Service: 09/17/19 Chief Complaint: left foot ulcer History of Wound: This 59-year-old male with significant past medical history of bipolar disorder presents complaining of a left foot ulcer. He has a nurse that helps with his dressing changes. He denies redness or odor. He relates once he completed his oral antibiotics within a couple weeks this condition returned and he elected not to follow-up with the wound healing center or notify anybody. She relates it has progressively gotten worse the past 2 weeks. He denies trauma. - Physical Exam Vital Signs Temp Pulse Resp BP 97.6 F L 77 22 H 144/85 H 09/17/19 11:26 09/17/19 11:26 09/17/19 11:26 09/17/19 11:26 General: Alert, Oriented x3, Cooperative, No apparent distress HEENT: Atraumatic Extremities: No cyanosis, Capillary Refill Less than 3 Seconds, No Calf Tenderness - Compartments soft without bogginess or fluctuance bilateral lower extremities, Diminished Peripheral Pulses, Edema - Hyperpigmentation lower extremities Skin: Ulcer/ Wound - There is no purulence or odor on expression. There is no erythema or streaking. There is local edema near the forefoot. There is no necrosis or deep tissue exposure., - - The ulcer has hemorrhagic tissue and minimal interspersed granular tissue exposure. The adjacent skin is hairless and atrophic Wound Measurements and Assessment WC - Nurse 1 - General Ulcer Measurement Start: 09/17/19 11:25 Freq: Status: Active Protocol: Activity Type Activity Date Activity User E-Sign Co-Sign Detail Recorded Client Recorded Date Recorded By Document 09/17/19 11:26 DL [id number] 09/17/19 11:43 DL 09/17/19 11:26 Wound Center Nurse 1 [Ulcer Assessment] #4 L Foot toes Cluster -Current Size (cm) - Length 3 -Current Size (cm) - Width 5 -Current Size (cm) - Depth 0.1 -Total Square Cm 15 -Photo Taken Yes -Classification - Thickness Full Thickness without Exposed Support Structure -Exudate Amt Medium -Exudate Type Serosanguineous -Wound Margin Indistinct, Non -Visible -Granulation Amt Medium (34-66%) -Granulation Quality [place] -Necrosis Amt Medium (34-66%) -Necrotic Tissue Type Adherent Slough -Structure Exposed N/A -Texture (Brandi-wound Skin Appearance) Excoriation -Moisture (Brandi-wound Skin Appearance Maceration, ) Weeping -Color (Brandi-wound Skin Appearance) Erythema -Temperature (Brandi-wound Skin No Abnormality Appearance) (Pt Warm) -Tenderness on Palpation (Brandi-wound No Skin Appearance) -Ulcer Cleansing Wound Cleanser -Foul Odor after Cleansing No -Anesthetic Used 4% Lidocaine Solution [Edema Assessment] -Right Calf (cm) 45 -Right Ankle (cm) 31 -Left Calf (cm) 39 -Left Ankle (cm) 27.2 Musculoskeletal: Muscle Wasting, - - Active range of motion digits x5 bilateral Neurological: Sensory exam intact to light touch and pain Psych/Mental Status: Normal Affect, Appropriate Debridement Note Wound debrided: toe sulcus and all interdigital spaces Laterality: Left Type of Debridement: Selective debridement Anesthesia Used: 4% Lidocaine Solution Depth: Down to and including healthy tissue Percentage of wound debrided: 100 Instrument Used: - - soft tissue nipper Tissue Removed: fibrous, devitalized subcutaneous, biofilm, slough Severity: Fat Layer Exposed Amount of bleeding with debridement: Mild Bleeding Controlled with: Pressure Patient tolerated procedure well Assessment/Plan Active Problems (Last Reviewed 07/23/17 @ 13:39 by Melany Dumas) Cellulitis of left foot (Acute) Ulcer of left foot, limited to breakdown of skin (Acute) Assessment: Returned left foot ulcer. Tinea pedis left foot in the differential diagnosis. This recurrent condition was previously negative for fungal elements of his prior cultures. Bacterial colonization left foot. Pain left foot. Venous insufficiency and varicosities left. 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 malnutrition suspected. Tobacco abuse. Other medical comorbidities Plan: I reviewed and discussed his case including etiology, comprehensive wound healing plan, and anticipated healing time and management. Debridement was performed today as noted in the clinical panel. To wash with antimicrobial medical grade Angela-Hex soap. I recommend that he change the dressing daily with wet-to-dry Dakin's gauze applied interdigitally and to the sulcus region. An order was provided today. Prior to dressing application, aerobic and anaerobic cultures were obtained. He is also started on oral antibiotic of doxycycline and ciprofloxacin based off of his prior culture results and this will act as broad-spectrum coverage until his culture results develop. To maintain good foot hygiene by washing daily with soap and water, drying the skin well, and performing moisturization avoiding the webspaces. He can return to wearing his offloading surgical shoe as well. To change socks daily. It is noted prior cultures demonstrated Pseudomonas, actinobacter baumanni, MRSA, Actinomyces odontyticus. To resume Tubigrip for compression. To avoid idle standing or sitting. To elevate the limbs at rest. Smoking cessation was also advised. Previous arterial and venous studies were completed. He has good waveforms to the ankle level and a right PATRICE 1.33 and left PATRICE 1.28. There is evidence of calcification and the accuracy of this test is in question. Further testing may be warranted if continued lack of healing is noted. It is also noted that he had a venous Doppler exam with reflux evaluation performed in 2017 which demonstrated superficial thrombophlebitis in mid calf varicosities noted in the left lower extremity. I recommend a referral to vascular specialist, Dr. Lott's input is greatly appreciated. To follow-up with the wound healing center next week or call sooner if there is any progressive worsening or new concerns. I answer his questions. . Quality measures reviewed as the following: Updated today: Medication and allergy reconciliation, he denies falling within the past year. Updated 04/30/2019: He denies following with in the past year. Reviewed on 03-12-2019: up-to-date pneumonia vaccination status was not confirmed due to patient refusal, he has does not have an up-to-date influenza immunization due to patient refusal, he does not have a living will on file. He is a smoker and smoking cessation was reviewed. He does have elevated blood pressure at or above 120/80 mmHg and also elevated body mass index. For these issues I recommend he follows up with his primary care physician as scheduled. He was counseled on the importance of diet and exercise as well.
[2019-09-17 16:58] LABS: M R Staph aureus DNA By PCR Negative (Negative); Probe Check PASS; Specimen Processing Control PASS; Staph aureus DNA By PCR POSITIVE (Negative)
[2019-09-24 13:56] VITALS: BP 127/55; PULSE 67; RESP 20; TEMP 36.4; BMI 33.4
--- NOTE | 2019-09-24 15:20 | PN.PCM_ITS ---
(1) Ulcer of left foot, limited to breakdown of skin Status: Resolved Current Visit: Yes Code(s): L97.521 - Non-pressure chronic ulcer of other part of left foot limited to breakdown of skin (2) Cellulitis of left foot Status: Acute Current Visit: Yes Code(s): L03.116 - Cellulitis of left lower limb (3) Colonization status Status: Chronic Current Visit: Yes Code(s): Z22.9 - Carrier of infectious disease, unspecified Type of Wound Date of Service: 09/24/19 Chief Complaint: left foot ulcer History of Wound: This 59-year-old male with significant past medical history of bipolar disorder presents complaining of a left foot ulcer. His drainage has resolved. He has a nurse that helps with his dressing changes. He denies redness or odor. He denies new injuries. He has been taking antibiotics as advised. He has multi-organism growth noted on his recent cultures. This is a recurrent condition and previous fungal cultures were negative. He relates he tries to elevate throughout the day except when he goes outside to smoke. Progress of Wound: Improving - Physical Exam Vital Signs Temp Pulse Resp BP 97.6 F L 67 20 H 127/55 H 09/24/19 13:56 09/24/19 13:56 09/24/19 13:56 09/24/19 13:56 General: Alert, Oriented x3, Cooperative, No apparent distress Extremities: No cyanosis, Capillary Refill Less than 3 Seconds, No Calf Tenderness, Diminished Peripheral Pulses, Edema Skin: Ulcer/ Wound - Full epithelialization is noted and maceration is significantly reduced. His cellulitis is also resolving and there is no longer any odor. His skin is atrophic and is still peeling Wound Measurements and Assessment WC - Nurse 1 - General Ulcer Measurement Start: 09/17/19 11:25 Freq: Status: Active Protocol: Activity Type Activity Date Activity User E-Sign Co-Sign Detail Recorded Client Recorded Date Recorded By Document 09/24/19 13:56 DL [id number] 09/24/19 14:04 DL 09/24/19 13:56 Wound Center Nurse 1 [Ulcer Assessment] #4 L Foot toes Cluster -Current Size (cm) - Length 10 -Current Size (cm) - Width 6.6 -Current Size (cm) - Depth 0.1 -Total Square Cm 66.0 -Photo Taken No -Exudate Amt Medium -Exudate Type Serosanguineous -Wound Margin Indistinct, Non -Visible -Granulation Amt Medium (34-66%) -Granulation Quality [place] -Necrosis Amt Medium (34-66%) -Necrotic Tissue Type Adherent Slough -Texture (Brandi-wound Skin Appearance) Excoriation -Moisture (Brandi-wound Skin Appearance Maceration ) -Color (Brandi-wound Skin Appearance) Rubor -Temperature (Brandi-wound Skin No Abnormality Appearance) (Pt Warm) -Tenderness on Palpation (Brandi-wound No Skin Appearance) -Ulcer Cleansing Wound Cleanser -Foul Odor after Cleansing No -Anesthetic Used 4% Lidocaine Solution [Edema Assessment] -Right Calf (cm) 38 -Right Ankle (cm) 29.5 -Left Calf (cm) 38.5 -Left Ankle (cm) 30.2 WC - Nurse 2 - General Ulcer CM Notes Start: 09/17/19 11:25 Freq: Status: Active Protocol: Activity Type Activity Date Activity User E-Sign Co-Sign Detail Recorded Client Recorded Date Recorded By Document 09/24/19 14:47 MOSHE [id number] 09/24/19 14:50 09/24/19 14:47 Wound Center Nurse 2 [Procedure/Treatment] #4 L Foot toes Cluster -Correct Patient No -Correct Side, Site, Position No -Correct Procedure No -Procedure Performed No -Post Debridement Size (cm) - Length 0 -Post Debridement Size (cm) - Width 0 -Post Debridement Size (cm) - Depth 0 -Total Square (cm) 0 -Wound/Ulcer Outcome Healed- Epithelialized [See Physician Procedure note for Specifics] Pain Scale: 0-10 Numeric [Pain] -Is Patient Pain Free? Yes Musculoskeletal: No Tenderness to Palpation of Joints or Extremities, Muscle Wasting, - - Compartments soft to foot and there is no bogginess or fluctuance on palpation Neurological: Sensory exam intact to light touch and pain Psych/Mental Status: Normal Affect, Appropriate Debridement Note Post-Debridement Measurements/Treatment WC - Nurse 2 - General Ulcer CM Notes Start: 09/17/19 11:25 Freq: Status: Active Protocol: Activity Type Activity Date Activity User E-Sign Co-Sign Detail Recorded Client Recorded Date Recorded By Document 09/17/19 12:01 MOSHE [id number] 09/17/19 12:04 Document 09/24/19 14:47 [id number] 09/24/19 14:50 09/17/19 09/24/19 12:01 14:47 Wound Center Nurse 2 #4 L Foot toes Cluster -Time 12:03 -Correct Patient Yes No -Correct Side, Site, Position Yes No -Correct Procedure Yes No -Procedure Performed Yes No -Type of Procedure Debridement -Clinical Debridement Selective -Post Debridement Size (cm) - Length 1 0 -Post Debridement Size (cm) - Width 1 0 -Post Debridement Size (cm) - Depth 0.1 0 -Total Square (cm) 1 0 -Wound/Ulcer Outcome Not Healed Healed- Epithelialized -Ulcer Cleansing Rinsed/ Irrigated with Saline -Foul Odor after Cleansing No -Bioengineered Tissue No -Bleeding Controlled with Pressure -Offloading No -Treatment Response Procedure Tolerated Well Pain Scale: 0-10 Numeric Is Patient Pain Free? Yes Yes Wound debrided: foot Laterality: Left No debridement was completed today - healed Assessment/Plan Active Problems (Last Reviewed 07/23/17 @ 13:39 by Melany Dumas) Cellulitis of left foot (Acute) Colonization status (Chronic) Assessment: Returned left foot ulcer which is now resolved. Tinea pedis left foot in the differential diagnosis. This recurrent condition was previously negative for fungal elements of his prior cultures. Bacterial colonization and cellulitis left foot improving. Pain left foot resolved. Venous insufficiency and varicosities left. 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 malnutrition suspected. Tobacco abuse. Other medical comorbidities. Lower extremity edema. Noncompliance Plan: I reviewed and discussed his case including etiology, comprehensive wound healing plan, and anticipated healing time and management. Debridement was not performed today because the ulcer site has healed. To wash with antimicrobial medical grade Angela-Hex soap. I recommend that he change the dressing daily with wet-to-dry Dakin's gauze applied interdigitally and to the sulcus region. He has multi-organism growth including MRSA. He is also started on oral antibiotic of doxycycline and ciprofloxacin based off of his prior culture results and this will act as broad-spectrum coverage. To complete this course. To maintain good foot hygiene by washing daily with soap and water, drying the skin well, and performing moisturization avoiding the webspaces. He can return to wearing his offloading surgical shoe as well. To change socks daily. To resume Tubigrip for compression. He was previously provided with a venous specialist referral. To avoid dangling his legs down and this is an issue while he goes outside to smoke. It is been also exceptionally hot and humid which is exacerbating this condition. To avoid idle standing or sitting. To elevate the limbs at rest. Smoking cessation was also advised. I reviewed with him that his accountability is imperative for him to have success with this treatment plan. Previous arterial and venous studies were completed. He has good waveforms to the ankle level and a right PATRICE 1.33 and left PATRICE 1.28. There is evidence of calcification and the accuracy of this test is in question. Further testing may be warranted if continued lack of healing is noted. It is also noted that he had a venous Doppler exam with reflux evaluation performed in 2017 which demonstrated superficial thrombophlebitis in mid calf varicosities noted in the left lower extremity. I recommend a referral to vascular specialist, Dr. Lott's input is greatly appreciated. To follow-up with the wound healing center in 1 to 2 weeks, or call sooner if there is any progressive worsening or new concerns. I answer his questions. . Quality measures reviewed as the following: Updated today: Medication and allergy reconciliation, he denies falling within the past year. Updated 04/30/2019: He denies following with in the past year. Reviewed on 03-12-2019: up-to-date pneumonia vaccination status was not confirmed due to patient refusal, he has does not have an up-to-date influenza immunization due to patient refusal, he does not have a living will on file. He is a smoker and smoking cessation was reviewed. He does have elevated blood pressure at or above 120/80 mmHg and also elevated body mass index. For these issues I recommend he follows up with his primary care physician as scheduled. He was counseled on the importance of diet and exercise as well.
[2019-10-01 14:20] VITALS: BP 134/74; PULSE 88; RESP 20; TEMP 36.9; BMI 33.4
--- NOTE | 2019-10-01 15:36 | PN.PCM_ITS ---
(1) Ulcer of left foot, limited to breakdown of skin Status: Resolved Code(s): L97.521 - Non-pressure chronic ulcer of other part of left foot limited to breakdown of skin (2) Cellulitis of left foot Status: Resolved Code(s): L03.116 - Cellulitis of left lower limb (3) Colonization status Status: Resolved Code(s): Z22.9 - Carrier of infectious disease, unspecified Type of Wound Date of Service: 10/01/19 Chief Complaint: left foot ulcer History of Wound: This 59-year-old male with significant past medical history of bipolar disorder presents complaining of a left foot ulcer. His drainage has resolved and his skin is peeling less. He has a nurse that helps with his dressing changes. He denies redness or odor. He denies new injuries. He has been taking antibiotics as advised. He has multi-organism growth noted on his recent cultures. This is a recurrent condition and previous fungal cultures were negative. He relates he tries to elevate throughout the day except when he goes outside to smoke.He has been trying to limit this. Progress of Wound: Improving - Physical Exam Vital Signs Temp Pulse Resp BP 98.4 F 88 20 H 134/74 H 10/01/19 14:20 10/01/19 14:20 10/01/19 14:20 10/01/19 14:20 General: Alert, Oriented x3, Cooperative, No apparent distress Extremities: No cyanosis, Capillary Refill Less than 3 Seconds, No Calf Tenderness, Diminished Peripheral Pulses, Edema Skin: Ulcer/ Wound - No purulence, erythema, streaking, odor, infection. No subcutaneous or some hemorrhagic tissue was noted. There is still continued dry skin peeling and a fissure with slight hematogenous drainage the plantar second toe. No interdigital maceration or necrosis Wound Measurements and Assessment WC - Nurse 1 - General Ulcer Measurement Start: 09/17/19 11:25 Freq: Status: Active Protocol: Activity Type Activity Date Activity User E-Sign Co-Sign Detail Recorded Client Recorded Date Recorded By Document 10/01/19 14:20 DL [id number] 10/01/19 14:25 DL 10/01/19 14:20 Wound Center Nurse 1 [Edema Assessment] -Left Calf (cm) 40 -Left Ankle (cm) 28.3 WC - Nurse 2 - General Ulcer CM Notes Start: 09/17/19 11:25 Freq: Status: Active Protocol: Activity Type Activity Date Activity User E-Sign Co-Sign Detail Recorded Client Recorded Date Recorded By Document 10/01/19 14:56 [id number] 10/01/19 15:00 10/01/19 14:56 Pain Scale: 0-10 Numeric [Pain] -Is Patient Pain Free? Yes Musculoskeletal: No Tenderness to Palpation of Joints or Extremities, - - No fluctuance or bogginess on palpation Neurological: Sensory exam intact to light touch and pain Psych/Mental Status: Normal Affect, Appropriate Debridement Note Post-Debridement Measurements/Treatment WC - Nurse 2 - General Ulcer CM Notes Start: 09/17/19 11:25 Freq: Status: Active Protocol: Activity Type Activity Date Activity User E-Sign Co-Sign Detail Recorded Client Recorded Date Recorded By Document 09/17/19 12:01 [id number] 09/17/19 12:04 Document 09/24/19 14:47 [id number] 09/24/19 14:50 Document 10/01/19 14:56 [id number] 10/01/19 15:00 09/17/19 09/24/19 10/01/19 12:01 14:47 14:56 Wound Center Nurse 2 #4 L Foot toes Cluster -Time 12:03 -Correct Patient Yes No -Correct Side, Site, Position Yes No -Correct Procedure Yes No -Procedure Performed Yes No -Type of Procedure Debridement -Clinical Debridement Selective -Post Debridement Size (cm) - Length 1 0 -Post Debridement Size (cm) - Width 1 0 -Post Debridement Size (cm) - Depth 0.1 0 -Total Square (cm) 1 0 -Wound/Ulcer Outcome Not Healed Healed- Epithelialized -Ulcer Cleansing Rinsed/ Irrigated with Saline -Foul Odor after Cleansing No -Bioengineered Tissue No -Bleeding Controlled with Pressure -Offloading No -Treatment Response Procedure Tolerated Well Pain Scale: 0-10 Numeric Is Patient Pain Free? Yes Yes Yes No debridement was completed today Assessment/Plan Assessment: Returned left foot ulcer which is now resolved. New skin fissure plantar second toe. Tinea pedis left foot in the differential diagnosis. This recurrent condition was previously negative for fungal elements of his prior cultures. Bacterial colonization and cellulitis left foot improving. Pain left foot resolved. Venous insufficiency and varicosities left. 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 malnutrition suspected. Tobacco abuse. Other medical comorbidities. Lower extremity edema. Noncompliance Plan: I reviewed and discussed his case including etiology, comprehensive wound healing plan, and anticipated healing time and management. Debridement was not performed today because the ulcer site has healed. To wash with antimicrobial medical grade Angela-Hex soap. I recommend that he change the dressing daily with dry gauze applied interdigitally and to the sulcus region. He had a prior multi-organism growth including MRSA. He is also started on oral antibiotic of doxycycline and ciprofloxacin based off of his prior culture results and this will act as broad-spectrum coverage. This was completed. To maintain good foot hygiene by washing daily with soap and water, drying the skin well, and performing moisturization avoiding the webspaces. He can return to wearing his offloading surgical shoe as well. To change socks daily. To resume Tubigrip for compression. He was previously provided with a venous specialist referral. To avoid dangling his legs down and this is an issue while he goes outside to smoke. To avoid idle standing or sitting. To elevate the limbs at rest. Smoking cessation was also advised. I reviewed with him that his accountability is imperative for him to have success with this treatment plan. Previous arterial and venous studies were completed. He has good waveforms to the ankle level and a right PATRICE 1.33 and left PATRICE 1.28. There is evidence of calcification and the accuracy of this test is in question. Further testing may be warranted if continued lack of healing is noted. It is also noted that he had a venous Doppler exam with reflux evaluation performed in 2017 which demonstrated superficial thrombophlebitis in mid calf varicosities noted in the left lower extremity. I recommend a referral to vascular specialist, Dr. Lott's input is greatly appreciated. To follow-up with the wound healing center in 1 to 2 weeks, or call sooner if there is any progressive worsening or new concerns. I answer his questions. . Quality measures reviewed as the following: Updated today: Medication and allergy reconciliati on, he denies falling within the past year. Updated 04/30/2019: He denies following with in the past year. Reviewed on 03-12-2019: up-to-date pneumonia vaccination status was not confirmed due to patient refusal, he has does not have an up-to-date influenza immunization due to patient refusal, he does not have a living will on file. He is a smoker and smoking cessation was reviewed. He does have elevated blood pressure at or above 120/80 mmHg and also elevated body mass index. For these issues I recommend he follows up with his primary care physician as scheduled. He was counseled on the importance of diet and exercise as well.
== END 2019-10-03 23:59 ==
LOC: WC 14:30
PROVIDERS: PCP Nurse Practitioner Adult Health; Visit Provider Podiatrist
DX: I87.2 Venous insufficiency (chronic) (peripheral) (principal); L97.522 Non-pressure chronic ulcer of other part of left foot with fat layer exposed; L03.116 Cellulitis of left lower limb; F31.9 Bipolar disorder, unspecified; Z79.899 Other long term (current) drug therapy; Z22.9 Carrier of infectious disease, unspecified; B35.3 Tinea pedis; Z91.19 Patient's noncompliance with other medical treatment and regimen; R60.0 Localized edema
CPT/HCPCS: 87070; 87075; 87077; 87186; 87205; 87640; 97597; 99213; G0463

== ENCOUNTER 2019-10-15 13:25 | Outpatient (RCR) | payer MEDICARE, MEDICAID, SELFPAY ==
[2019-10-04 00:40] VITALS: BP 134/74; PULSE 88; RESP 20; TEMP 36.9
[2019-10-15 13:36] VITALS: BP 151/87; PULSE 85; RESP 16; TEMP 37.1; BMI 33.4
--- NOTE | 2019-10-15 22:42 | PCM.WC.PN ---
(1) Colonization status Status: Resolved Code(s): Z22.9 - Carrier of infectious disease, unspecified (2) Tinea pedis Status: Ruled-out Qualifiers: Code(s): B35.3 - Tinea pedis (3) Venous insufficiency (chronic) (peripheral) Status: Chronic Code(s): I87.2 - Venous insufficiency (chronic) (peripheral) (4) Maceration of skin Status: Resolved Code(s): L98.8 - Other specified disorders of the skin and subcutaneous tissue (5) Tobacco use Status: Chronic Code(s): Z72.0 - Tobacco use Type of Wound Date of Service: 10/15/19 Chief Complaint: left foot ulcer with recurrent infection History of Wound: This 59-year-old male with significant past medical history of bipolar disorder presents complaining of a left foot ulcer. His drainage has resolved and his skin is peeling less. He has a nurse that helps with his dressing changes. He denies redness or odor. He has been trying to control his swelling. He denies fever, chill, nausea. He denies drainage and thinks the ulcer and infection have resolved. Progress of Wound: Healed - Physical Exam Vital Signs Temp Pulse Resp BP 98.8 F 85 16 151/87 H 10/15/19 13:36 10/15/19 13:36 10/15/19 13:36 10/15/19 13:36 General: Alert, Oriented x3, Cooperative, No apparent distress HEENT: Atraumatic Extremities: No cyanosis, Capillary Refill Less than 3 Seconds, No Calf Tenderness, Diminished Peripheral Pulses, Edema Skin: Ulcer/ Wound - No purulence, erythema, streaking, odor. Peripheral epithelialization is complete and the ulcer sites have healed. There is no additional skin peeling noted or maceration. Wound Measurements and Assessment WC - Nurse 1 - General Ulcer Measurement Start: 10/15/19 13:36 Freq: Status: Active Protocol: Activity Type Activity Date Activity User E-Sign Co-Sign Detail Recorded Client Recorded Date Recorded By Document 10/15/19 13:36 [facility] [id number] 10/15/19 13:39 [facility] 10/15/19 13:36 Wound Center Nurse 1 [Edema Assessment] -Lower Limb Edema Present Yes -Left Calf (cm) 41 -Left Ankle (cm) 29.2 WC - Nurse 2 - General Ulcer CM Notes Start: 10/15/19 13:36 Freq: Status: Active Protocol: Activity Type Activity Date Activity User E-Sign Co-Sign Detail Recorded Client Recorded Date Recorded By Document 10/15/19 14:13 JF [id number] 10/15/19 14:14 [facility] 10/15/19 14:13 Pain Scale: 0-10 Numeric [Pain] -Is Patient Pain Free? Yes Musculoskeletal: Muscle Wasting Neurological: Sensory exam intact to light touch and pain Psych/Mental Status: Normal Affect, Appropriate Debridement Note Post-Debridement Measurements/Treatment WC - Nurse 2 - General Ulcer CM Notes Start: 10/15/19 13:36 Freq: Status: Active Protocol: Activity Type Activity Date Activity User E-Sign Co-Sign Detail Recorded Client Recorded Date Recorded By Document 10/15/19 14:13 [facility] [id number] 10/15/19 14:14 [facility] 10/15/19 14:13 Pain Scale: 0-10 Numeric Is Patient Pain Free? Yes No debridement was completed today - Healed Assessment/Plan Assessment: Returned left foot ulcer which is now resolved. Newer skin fissure plantar second toe, resolved. Tinea pedis left foot in the differential diagnosis. This recurrent condition was previously negative for fungal elements of his prior cultures. Bacterial colonization and cellulitis left foot, resolved. Pain left foot resolved. Venous insufficiency and varicosities left. 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 malnutrition suspected. Tobacco abuse. Other medical comorbidities. Lower extremity edema. Noncompliance Plan: I reviewed and discussed his case including etiology, comprehensive wound healing plan, and anticipated healing time and management. Debridement was not performed today because the ulcer site has healed. To wash with antibacterial soap such as Dial. Continue dressing care. To continue to be diligent with drying in between the toes and reducing swelling of the lower extremity. He had a prior multi-organism growth including MRSA, and understands he is at risk for ongoing recurrent. It is noted he has cut the dorsal toe box out of his shoes to reduce pressure and allow airflow. This looks very good and I encouraged him to continue this. To spray Lysol and she is in shower to prevent recurrence. He has also completed oral antibiotic of doxycycline and ciprofloxacin based off of his prior culture results and this will act as broad-spectrum coverage. To maintain good foot hygiene by washing daily with soap and water, drying the skin well, and performing moisturization avoiding the webspaces. To change socks daily. To resume Tubigrip for compression. He was previously provided with a venous specialist referral. To avoid dangling his legs down and this is an issue while he goes outside to smoke. To avoid idle standing or sitting. To elevate the limbs at rest. Smoking cessation was also advised. I reviewed with him that his accountability is imperative for him to have success with this treatment plan. Previous arterial and venous studies were completed. He has good waveforms to the ankle level and a right PATRICE 1.33 and left PATRICE 1.28. There is evidence of calcification and the accuracy of this test is in question. Further testing may be warranted if continued lack of healing is noted. It is also noted that he had a venous Doppler exam with reflux evaluation performed in 2017 which demonstrated superficial thrombophlebitis in mid calf varicosities noted in the left lower extremity. I recommend a referral to vascular specialist, Dr. Lott's input is greatly appreciated. He is discharged from the wound healing center at this time. To follow-up as needed. I answer his questions. . Quality measures reviewed as the following: Updated today: Medication and allergy reconciliation, he denies falling within the past year. Updated 04/30/2019: He denies following with in the past year. Reviewed on 03-12-2019: up-to-date pneumonia vaccination status was not confirmed due to patient refusal, he has does not have an up-to-date influenza immunization due to patient refusal, he does not have a living will on file. He is a smoker and smoking cessation was reviewed. He does have elevated blood pressure at or above 120/80 mmHg and also elevated body mass index. For these issues I recommend he follows up with his primary care physician as scheduled. He was counseled on the importance of diet and exercise as well.
== END 2019-10-20 14:25 | disposition home or self-care (01) ==
LOC: WC 13:25
PROVIDERS: PCP Nurse Practitioner Adult Health; Referring Provider Podiatrist; Visit Provider Podiatrist
DX: Z09 Encounter for follow-up examination after completed treatment for conditions other than malignant neoplasm (principal); I87.2 Venous insufficiency (chronic) (peripheral); Z86.14 Personal history of Methicillin resistant Staphylococcus aureus infection; Z91.19 Patient's noncompliance with other medical treatment and regimen; R60.0 Localized edema; B35.3 Tinea pedis; L98.8 Other specified disorders of the skin and subcutaneous tissue; Z72.0 Tobacco use
CPT/HCPCS: 99213; G0463

== ENCOUNTER 2019-12-03 13:00 | Outpatient (RCR) | payer MEDICARE, MEDICAID, SELFPAY ==
[2019-08-04 00:33] VITALS: BP 127/75; PULSE 70; RESP 18; TEMP 36.8
[2019-11-19 13:16] VITALS: BP 128/73; PULSE 89; RESP 18; TEMP 36.2; BMI 31.8
--- NOTE | 2019-11-19 14:54 | PN.PCM_ITS ---
(1) Maceration of skin Status: Acute Code(s): L98.8 - Other specified disorders of the skin and subcutaneous tissue (2) Tobacco use Status: Chronic Code(s): Z72.0 - Tobacco use (3) Alcohol abuse Status: Chronic Code(s): F10.10 - Alcohol abuse, uncomplicated (4) Venous insufficiency (chronic) (peripheral) Status: Chronic Code(s): I87.2 - Venous insufficiency (chronic) (peripheral) Type of Wound Date of Service: 11/19/19 Chief Complaint: Left foot maceration return History of Wound: This 59-year-old male with significant past medical history of bipolar disorder presents complaining of a left foot returned foot moisture and skin peeling. He relates he has been more active and wears the same shoe. He denies fever, chill, nausea. He denies redness or known odor. He resides at [facility] and continues to smoke excessively each day. Progress of Wound: Returned maceration - Physical Exam Vital Signs Temp Pulse Resp BP 97.2 F L 89 18 128/73 H 11/19/19 13:16 11/19/19 13:16 11/19/19 13:16 11/19/19 13:16 General: Alert, Oriented x3, Cooperative, No apparent distress HEENT: Atraumatic Extremities: No cyanosis, Capillary Refill Less than 3 Seconds, No Calf Tenderness, Diminished Peripheral Pulses, Edema - Lower extremity edema with varicosities are seen Skin: Ulcer/ Wound - Full epithelialization is maintained. There is maceration to the webspaces 2, 3, 4 including the plantar sulcus area. There is no bogginess or fluctuance on palpation. There is no erythema, streaking, or deep tissue exposure. Wound Measurements and Assessment WC - Nurse 1 - General Ulcer Measurement Start: 11/19/19 13:15 Freq: Status: Active Protocol: Activity Type Activity Date Activity User E-Sign Co-Sign Detail Recorded Client Recorded Date Recorded By Document 11/19/19 13:16 RB [id number] 11/19/19 13:26 RB 11/19/19 13:16 Wound Center Nurse 1 [Ulcer Assessment] 5. L foot plantar foot/toes cluster -Combined with other wound No -Current Size (cm) - Length 3.5 -Current Size (cm) - Width 5.7 -Current Size (cm) - Depth 0.1 -Total Square Cm 19.95 -Photo Taken Yes -Tunneling No -Undermining/Tunneling No -Circular Undermining No -Exudate Amt Medium -Exudate Type Serosanguineous -Wound Margin Distinct, Outline Attached -Granulation Amt Large (67-100%) -Granulation Quality [place] -Slough/Fibrin Yes -Necrosis Amt Small (1-33%) -Necrotic Tissue Type Adherent Slough -Structure Exposed N/A -Texture (Brandi-wound Skin Appearance) Excoriation -Moisture (Brandi-wound Skin Appearance Maceration, ) Weeping -Color (Brandi-wound Skin Appearance) Assessed -Temperature (Brandi-wound Skin No Abnormality Appearance) (Pt Warm) -Tenderness on Palpation (Brandi-wound No Skin Appearance) -Ulcer Cleansing Wound Cleanser -Foul Odor after Cleansing No -Anesthetic Used 4% Lidocaine Solution [Edema Assessment] -Lower Limb Edema Present Yes -Right Calf (cm) 40.5 -Right Ankle (cm) 26.5 -Left Calf (cm) 42 -Left Ankle (cm) 29.5 Musculoskeletal: No Tenderness to Palpation of Joints or Extremities, Muscle Wasting Neurological: Sensory exam intact to light touch and pain Psych/Mental Status: Normal Affect, Appropriate Assessment/Plan Assessment: Return left foot maceration without local signs of infection today. This recurrent condition will be monitored for bacterial and fungal contamination and infection. Venous insufficiency and varicosities left. 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 malnutrition suspected. Tobacco abuse. Other medical comorbidities. Lower extremity edema. Noncompliance Plan: I reviewed and discussed his case including etiology, comprehensive wound healing plan, and anticipated healing time and management. Debridement was not performed today because there is no clear skin discontinuity. He does however have maceration in his moist peeling skin was debrided with a 15 blade scalpel. No bleeding was noted. To wash with antibacterial soap such as Dial. Continue dressing care with Dakin solution. To continue to be diligent with drying in between the toes and reducing swelling of the lower extremity. He no longer has tissue with the toe cut out. I recommended use of a surgical shoe which was offered today. To spray Lysol and she is in shower to prevent recurrence. To maintain good foot hygiene by washing daily with soap and water, drying the skin well, and performing moisturization avoiding the webspaces. To change socks daily. To resume Tubigrip for compression. He was previously provided with a venous specialist referral. To avoid dangling his legs down and this is an issue while he goes outside to smoke. To avoid idle standing or sitting. To elevate the limbs at rest. Smoking cessation was also advised. I reviewed with him that his accountability is imperative for him to have success with this treatment plan. Previous arterial and venous studies were completed. He has good waveforms to the ankle level and a right PATRICE 1.33 and left PATRICE 1.28. There is evidence of calcification and the accuracy of this test is in question. Further testing may be warranted if continued lack of healing is noted. It is also noted that he had a venous Doppler exam with reflux evaluation performed in 2017 which demonstrated superficial thrombophlebitis in mid calf varicosities noted in the left lower extremity. I recommend a referral to vascular specialist, Dr. Lott's input is greatly appreciated. To return to the wound healing center in 1 week. I answer his questions. . Quality measures reviewed as the following: Updated today: Medication and allergy reconciliation, he denies falling within the past year. Updated 04/30/2019: He denies following with in the past year. Reviewed on 03-12-2019: up-to-date pneumonia vaccination status was not confirmed due to patient refusal, he has does not have an up-to-date influenza immunization due to patient refusal, he does not have a living will on file. He is a smoker and smoking cessation was reviewed. He does have elevated blood pressure at or above 120/80 mmHg and also elevated body mass index. For these issues I recommend he follows up with his primary care physician as scheduled. He was counseled on the importance of diet and exercise as well.
[2019-12-03 11:28] VITALS: BP 128/73; PULSE 92; RESP 20; TEMP 36.4; BMI 31.8
[2019-12-03 12:39] VITALS: BP 147/72; PULSE 69; RESP 18
--- NOTE | 2019-12-03 13:06 | VDLE_ITS ---
Reason For Study: DVT Procedure LEFT Exam performed in department. CFV is compressible, spontaneous, phasic, A preliminary report was called and/or faxed competent, and demonstrates normal to Dr. Alcaraz. augmentation. FV is compressible, spontaneous, phasic, competent and demonstrates normal augmentation. POP V is compressible, spontaneous, phasic, competent and demonstrates normal augmentation. T/P Trunk is compressible. PTV is compressible. LT PerV is compressible. Lt GSV is compressible in the thigh, Lt GSV in the calf has bright intraluminal echoes consistent with chronic SVT Very difficult to visualize Lt calf veins due to severe edema Heterogenous, vascular structure noted Lt groin measuring 1.32cm x 3.70cm. Interpretation Summary Deep veins of the left lower extremity are patent and compressible segmentally. There is no evidence of left lower extremity deep vein thrombosis. Valvular competence appears intact within the proximal deep venous system on the left . Chronic venous changes are noted in the left great saphenous vein in the calf, which demonstrates bright intraluminal echogenicity. The left great saphenous vein is patent and compressible in the thigh. The left lower extremity deep calf veins were not well visualized due to severe edema. A vascular, heterogeneous structure is noted in the left groin, measuring 1.32 cm x 3.70 cm. This may represent lymphadenopathy. Clinical correlation is advised. Ordering Physician: Stella Alcaraz Referring Physician: Ingris Chu Performed By: Urmila De La Torre, CRESENCIO, RVT
--- NOTE | 2019-12-03 13:56 | PCM.WC.PN ---
(1) Maceration of skin Status: Acute Code(s): L98.8 - Other specified disorders of the skin and subcutaneous tissue (2) Tobacco use Status: Chronic Code(s): Z72.0 - Tobacco use (3) Alcohol abuse Status: Chronic Code(s): F10.10 - Alcohol abuse, uncomplicated (4) Venous insufficiency (chronic) (peripheral) Status: Chronic Code(s): I87.2 - Venous insufficiency (chronic) (peripheral) (5) Cellulitis of left foot Status: Acute Code(s): L03.116 - Cellulitis of left lower limb (6) Deep venous thrombosis of distal end of left lower extremity Status: Ruled-out Qualifiers: Chronicity: acute Qualified Code(s): I82.4Z2 - Acute embolism and thrombosis of unspecified deep veins of left distal lower extremity Code(s): I82.4Z2 - Acute embolism and thrombosis of unspecified deep veins of left distal lower extremity Type of Wound Date of Service: 12/03/19 Chief Complaint: Left foot maceration return now with ulcer History of Wound: This 59-year-old male with significant past medical history of bipolar disorder presents complaining of a left foot returned foot moisture and skin peeling. He denies fever, chill, nausea. He denies redness or known odor. He resides at [facility] and continues to smoke each day. He relates he has increased drainage and he was started on Bactrim. Progress of Wound: Worse status - Physical Exam Vital Signs Temp Pulse Resp BP 97.5 F L 69 18 147/72 H 12/03/19 11:28 12/03/19 12:39 12/03/19 12:39 12/03/19 12:39 General: Alert, Oriented x3, Cooperative, No apparent distress HEENT: Atraumatic Extremities: No cyanosis, Capillary Refill Less than 3 Seconds, No Calf Tenderness, Diminished Peripheral Pulses, Edema Skin: Ulcer/ Wound - No purulence, odor, or streaking or erythema. There is progressive skin discontinuity to the digits and sulcus area with increased serosanguineous drainage., - - His skin is hairless and atrophic with leg hyperpigmentation Wound Measurements and Assessment WC - Nurse 1 - General Ulcer Measurement Start: 11/19/19 13:15 Freq: Status: Active Protocol: Activity Type Activity Date Activity User E-Sign Co-Sign Detail Recorded Client Recorded Date Recorded By Document 12/03/19 11:28 DL [id number] 12/03/19 11:36 DL 12/03/19 11:28 Wound Center Nurse 1 [Ulcer Assessment] 5. L foot plantar foot/toes cluster -Current Size (cm) - Length 7 -Current Size (cm) - Width 4 -Current Size (cm) - Depth 0.1 -Total Square Cm 28 -Photo Taken No -Wound Margin Indistinct, Non -Visible -Granulation Amt Medium (34-66%) -Granulation Quality [place],Red -Necrosis Amt Medium (34-66%) -Necrotic Tissue Type Adherent Slough -Structure Exposed N/A -Texture (Brandi-wound Skin Appearance) Scarring -Moisture (Brandi-wound Skin Appearance Maceration, ) Weeping -Color (Brandi-wound Skin Appearance) Hemosiderin Staining -Temperature (Brandi-wound Skin No Abnormality Appearance) (Pt Warm) -Tenderness on Palpation (Brandi-wound No Skin Appearance) -Ulcer Cleansing Wound Cleanser -Foul Odor after Cleansing No -Anesthetic Used 4% Lidocaine Solution [Edema Assessment] -Left Calf (cm) 49 -Left Ankle (cm) 34 WC - Nurse 3 - General Ulcer D/C NN Start: 11/19/19 13:15 Freq: Status: Active Protocol: Activity Type Activity Date Activity User E-Sign Co-Sign Detail Recorded Client Recorded Date Recorded By Document 12/03/19 12:39 BMF [id number] 12/03/19 12:40 BMF 12/03/19 12:39 Wound Care Nurse 3 [Wound Dressing] 5. L foot plantar foot/toes cluster -Ulcer Cleansing Rinsed/ Irrigated with Saline -Foul Odor after Cleansing No -Primary Dressing Applied Other -Other Dressing moist to dry -Primary Dressing Covered/Secured Dry Gauze & with Roll Gauze, Secured with Tape [Compression Applied] Left -Compression Wrap Tomas Wrap [Post Procedure Tolerated] -Treatment Response Procedure Tolerated Well Vital Signs [Pulse] -Pulse Rate (60-100) 69 -Pulse Location Monitor [Respirations] -Respiratory Rate (12-18) 18 -Respiratory rate source Observation -Oxygen Delivery Method Room Air [Blood Pressure] -Blood Pressure (90/60-120/80) 147/72 H -Blood Pressure Mean (mm Hg) 97 -Source Monitor -Position Sitting -Blood Pressure Location Left Arm Pain Scale: 0-10 Numeric [Pain] -Is Patient Pain Free? Yes - Visit Discharge [Visit Discharge Information] -Discharge Condition Stable -Ambulatory Status Ambulatory, Walker [Facility Notification] -Other assisted living Musculoskeletal: No Tenderness to Palpation of Joints or Extremities, Muscle Wasting Neurological: - - Lack of normal epicritic sensation light touch Psych/Mental Status: Normal Affect, Appropriate Debridement Note Post-Debridement Measurements/Treatment - Nurse 3 - General Ulcer D/C NN Start: 11/19/19 13:15 Freq: Status: Active Protocol: Activity Type Activity Date Activity User E-Sign Co-Sign Detail Recorded Client Recorded Date Recorded By Document 12/03/19 12:39 [facility] [id number] 12/03/19 12:40 [facility] 12/03/19 12:39 Wound Care Nurse 3 5. L foot plantar foot/toes cluster -Ulcer Cleansing Rinsed/ Irrigated with Saline -Foul Odor after Cleansing No -Primary Dressing Applied Other -Other Dressing moist to dry -Primary Dressing Covered/Secured with Dry Gauze & Roll Gauze, Secured with Tape Left -Compression Wrap Tomas Wrap Treatment Response Procedure Tolerated Well Vital Signs Pulse Rate (60-100) 69 Pulse Location Monitor Respiratory Rate (12-18) 18 Respiratory rate source Observation Oxygen Delivery Method Room Air Blood Pressure (90/60-120/80) 147/72 H Blood Pressure Mean (mm Hg) 97 Source Monitor Position Sitting Blood Pressure Location Left Arm Pain Scale: 0-10 Numeric Is Patient Pain Free? Yes - Visit Discharge Discharge Condition Stable Ambulatory Status Ambulatory, Walker Other assisted living Wound debrided: 1 and 2 toe and plantar sulcus Laterality: Left Type of Debridement: Excisional debridement Anesthesia Used: 5% Lidocaine Gel Depth: in the subcutaneous layer Percentage of wound debrided: 100 Instrument Used: #15 blade Tissue Removed: fibrous, devitalized subcutaneous, biofilm, slough Severity: Fat Layer Exposed Amount of bleeding with debridement: Mild Bleeding Controlled with: Pressure Patient tolerated procedure well Assessment/Plan Assessment: Return left foot maceration with worsening status. Left foot ulcer with fat layer exposed. Cellulitis treatment initiated. Venous insufficiency and varicosities left. 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 malnutrition suspected. Tobacco abuse. Other medical comorbidities. Lower extremity edema. Noncompliance Plan: I reviewed and discussed his case including etiology, comprehensive wound healing plan, and anticipated healing time and management. Debridement was performed today as noted in the clinical panel. Saline irrigation was performed and aerobic, anaerobic cultures were obtained. He is on Bactrim at this time. As I get the results back and antibiotic adjustments may be required. To wash with antibacterial soap such as Dial. Continue dressing care with Dakin solution. To continue to be diligent with drying in between the toes and reducing swelling of the lower extremity. I recommended use of a surgical shoe which was offered today. To spray Lysol and she is in shower to prevent recurrence. To maintain good foot hygiene by washing daily with soap and water, drying the skin well, and performing moisturization avoiding the webspaces. To change socks daily. To resume Tubigrip for compression. He was previously provided with a venous specialist referral. To avoid dangling his legs down and this is an issue while he goes outside to smoke. To avoid idle standing or sitting. To elevate the limbs at rest. Smoking cessation was also advised. I reviewed with him that his accountability is imperative for him to have success with this treatment plan. Previous arterial and venous studies were completed. He has good waveforms to the ankle level and a right PATRICE 1.33 and left PATRICE 1.28. There is evidence of calcification and the accuracy of this test is in question. Further testing may be warranted if continued lack of healing is noted. It is also noted that he had a venous Doppler exam with reflux evaluation performed in 2017 which demonstrated superficial thrombophlebitis in mid calf varicosities noted in the left lower extremity. I recommend a referral to vascular specialist, Dr. Lott's input is greatly appreciated. To return to the wound healing center in 1 week. I answer his questions. . Quality measures reviewed as the following: Updated today: Medication and allergy reconciliation, he denies falling within the past year. Updated 04/30/2019: He denies following with in the past year. Reviewed on 03-12-2019: up-to-date pneumonia vaccination status was not confirmed due to patient refusal, he has does not have an up-to-date influenza immunization due to patient refusal, he does not have a living will on file. He is a smoker and smoking cessation was reviewed. He does have elevated blood pressure at or above 120/80 mmHg and also elevated body mass index. For these issues I recommend he follows up with his primary care physician as scheduled. He was counseled on the importance of diet and exercise as well.
[2019-12-03 14:46] LABS: M R Staph aureus DNA By PCR Negative (Negative); Probe Check PASS; Specimen Processing Control PASS; Staph aureus DNA By PCR POSITIVE (Negative)
== END 2019-12-03 23:59 ==
LOC: CVS 13:00
PROVIDERS: PCP Nurse Practitioner Adult Health; Visit Provider Podiatrist
DX: I87.2 Venous insufficiency (chronic) (peripheral) (principal); L98.8 Other specified disorders of the skin and subcutaneous tissue; F10.10 Alcohol abuse, uncomplicated; Z72.0 Tobacco use; Z91.19 Patient's noncompliance with other medical treatment and regimen; M79.89 Other specified soft tissue disorders; B96.5 Pseudomonas (aeruginosa) (mallei) (pseudomallei) as the cause of diseases classified elsewhere; L03.116 Cellulitis of left lower limb; L97.522 Non-pressure chronic ulcer of other part of left foot with fat layer exposed
CPT/HCPCS: 87070; 87075; 87077; 87186; 87205; 87640; 93971; 99213; G0463

== ENCOUNTER 2019-12-17 09:45 | Outpatient (RCR) | payer MEDICARE, MEDICAID, SELFPAY ==
[2019-12-04 00:14] VITALS: BP 147/72; PULSE 69; RESP 18; TEMP 36.4
[2019-12-10 09:06] VITALS: BP 148/86; PULSE 101; RESP 22; TEMP 36.1; BMI 31.8
[2019-12-10 10:07] VITALS: BP 165/57; PULSE 54; RESP 22; TEMP 36.6
--- NOTE | 2019-12-10 10:21 | PCM.WC.PN ---
(1) Edema of left lower leg Status: Acute Current Visit: Yes Code(s): R60.0 - Localized edema (2) Edema of left lower leg due to peripheral venous insufficiency Status: Acute Current Visit: Yes Code(s): I87.2 - Venous insufficiency (chronic) (peripheral); R60.0 - Localized edema (3) Cellulitis Status: Acute Current Visit: No Code(s): L03.90 - Cellulitis, unspecified (4) Cellulitis of left foot Status: Acute Current Visit: No Code(s): L03.116 - Cellulitis of left lower limb (5) Maceration of skin Status: Acute Current Visit: No Code(s): L98.8 - Other specified disorders of the skin and subcutaneous tissue (6) Obesity (BMI 30.0-34.9) Status: Chronic Current Visit: No Code(s): E66.9 - Obesity, unspecified (7) Venous insufficiency (chronic) (peripheral) Status: Chronic Current Visit: No Code(s): I87.2 - Venous insufficiency (chronic) (peripheral) (8) Chronic malnutrition Status: Suspected Current Visit: No Code(s): E46 - Unspecified protein-calorie malnutrition (9) Other specified peripheral vascular diseases Status: Suspected Current Visit: No Code(s): I73.89 - Other specified peripheral vascular diseases (10) Ulcer of left foot, limited to breakdown of skin Status: Resolved Current Visit: No Code(s): L97.521 - Non-pressure chronic ulcer of other part of left foot limited to breakdown of skin (11) Tinea pedis Status: Ruled-out Current Visit: No Qualifiers: Code(s): B35.3 - Tinea pedis (12) Nonhealing nonsurgical wound limited to breakdown of skin Status: Acute Current Visit: Yes Code(s): T14.8XXA - Other injury of unspecified body region, initial encounter Type of Wound Date of Service: 12/10/19 Chief Complaint: Left foot maceration return now with ulcer History of Wound: This 59-year-old male with significant past medical history of bipolar disorder presents complaining of a left foot returned foot moisture and skin peeling. He denies fever, chill, nausea. He denies redness or known odor. He resides at [facility] and continues to smoke each day. He relates he has increased drainage and he was started on Bactrim. Progress of Wound: The left foot and toes cluster is healed which is the left foot plantar toe is also healed. Then he is developed left beasley cluster and a left medial foot macerated opening also. The venous study shows no blood clots but it is hard to see in the calf right where it is very edematous but most all of his vessels are compressible. - Physical Exam Vital Signs Temp Pulse Resp BP 97 F L 101 H 22 H 148/86 H 12/10/19 09:06 12/10/19 09:06 12/10/19 09:06 12/10/19 09:06 General: Oriented x3, Cooperative, Well developed HEENT: Atraumatic, PERRLA Oral: Moist Mucosa Neck: Supple, No JVD Lungs: Clear to auscultation, Normal air movement Cardiovascular: Regular rate, Regular Rhythm Abdomen: Bowel Sounds Present, Soft, Non Tender, No Hepato-splenomegaly Extremities: No clubbing, Edema Skin: Ulcer/ Wound - New left beasley cluster left medial foot macerated wound Wound Measurements and Assessment WC - Nurse 1 - General Ulcer Measurement Start: 12/10/19 09:02 Freq: Status: Active Protocol: Activity Type Activity Date Activity User E-Sign Co-Sign Detail Recorded Client Recorded Date Recorded By Document 12/10/19 09:06 DL [id number] 12/10/19 09:16 DL 12/10/19 09:06 Wound Center Nurse 1 [Ulcer Assessment] 5. L foot plantar foot/toes cluster -Current Size (cm) - Length 4 -Current Size (cm) - Width 0.2 -Current Size (cm) - Depth 0.1 -Total Square Cm 0.8 -Photo Taken No -Exudate Amt Small -Exudate Type Serosanguineous -Wound Margin Indistinct, Non -Visible -Granulation Amt Medium (34-66%) -Granulation Quality Red -Necrosis Amt Medium (34-66%) -Necrotic Tissue Type Adherent Slough -Structure Exposed N/A -Texture (Brandi-wound Skin Appearance) Localized Edema ,Scarring -Moisture (Brandi-wound Skin Appearance Dry/Scaly ) -Color (Brandi-wound Skin Appearance) Erythema, Hemosiderin Staining -Temperature (Brandi-wound Skin No Abnormality Appearance) (Pt Warm) -Tenderness on Palpation (Brandi-wound No Skin Appearance) -Ulcer Cleansing Wound Cleanser -Foul Odor after Cleansing No -Anesthetic Used 4% Lidocaine Solution [Edema Assessment] -Left Calf (cm) 47 -Left Ankle (cm) 29 WC - Nurse 2 - General Ulcer CM Notes Start: 12/10/19 09:02 Freq: Status: Active Protocol: Activity Type Activity Date Activity User E-Sign Co-Sign Detail Recorded Client Recorded Date Recorded By Document 12/10/19 09:37 MW [id number] 12/10/19 09:53 MW 12/10/19 09:37 Wound Center Nurse 2 [Procedure/Treatment] #7 left medial foot -Time 09:50 -Correct Patient Yes -Correct Side, Site, Position Yes -Correct Procedure Yes -Procedure Performed Yes -Type of Procedure Debridement -Clinical Debridement Subcutaneous -Tissue Removed Subcutaneous -Post Debridement (cm) - Length 3.0 -Post Debridement (cm) - Width 6.0 -Post Debridement (cm) - Depth 0.1 -Total Square (Post) (cm) 18.00 -Area of Debridement (cm) - Length 3.0 -Area of Debridement (cm) - Width 6.0 -Total Square (Area) (cm) 18.00 -Tunneling No -Undermining/Tunneling No -Circular Undermining No -Wound/Ulcer Outcome Not Healed -Ulcer Cleansing Rinsed/ Irrigated with Saline -Foul Odor after Cleansing No -Bioengineered Tissue No -Bleeding Controlled with Pressure -Offloading No -Treatment Response Procedure Tolerated Well -Debridement - Subq, 1st 20sq cm No #6 left beasley cluster -Time 09:44 -Correct Patient Yes -Correct Side, Site, Position Yes -Correct Procedure Yes -Procedure Performed Yes -Type of Procedure Debridement -Clinical Debridement Subcutaneous -Tissue Removed Subcutaneous -Post Debridement (cm) - Length 10.0 -Post Debridement (cm) - Width 3.0 -Post Debridement (cm) - Depth 0.1 -Total Square (Post) (cm) 30.00 -Area of Debridement (cm) - Length 10.0 -Area of Debridement (cm) - Width 3.0 -Total Square (Area) (cm) 30.00 -Tunneling No -Undermining/Tunneling No -Circular Undermining No -Wound/Ulcer Outcome Not Healed -Ulcer Cleansing Rinsed/ Irrigated with Saline -Foul Odor after Cleansing No -Bioengineered Tissue No -Bleeding Controlled with Pressure -Treatment Response Procedure Tolerated Well -Debridement - Subq, 1st 20sq cm Yes -Debridement, SubQ, ea addt'l 20sq cm 1 or part thereof 5. L foot plantar foot/toes cluster -Time 09:47 -Correct Patient Yes -Correct Side, Site, Position Yes -Correct Procedure Yes -Procedure Performed No -Tunneling No -Undermining/Tunneling No -Circular Undermining No -Wound/Ulcer Outcome Healed- Epithelialized [See Physician Procedure note for Specifics] Pain Scale: 0-10 Numeric [Pain] -Is Patient Pain Free? Yes Musculoskeletal: No Tenderness to Palpation of Joints or Extremities Lymphatic: No Cervical, Supraclavicular, or Inguinal Adenopathy Neurological: Cranial nerves II-XII grossly intact, Neuro grossly intact Psych/Mental Status: Normal Affect, Appropriate Debridement Note Post-Debridement Measurements/Treatment WC - Nurse 2 - General Ulcer CM Notes Start: 12/10/19 09:02 Freq: Status: Active Protocol: Activity Type Activity Date Activity User E-Sign Co-Sign Detail Recorded Client Recorded Date Recorded By Document 12/10/19 09:37 MW [id number] 12/10/19 09:53 MW 12/10/19 09:37 Wound Center Nurse 2 #7 left medial foot -Time 09:50 -Correct Patient Yes -Correct Side, Site, Position Yes -Correct Procedure Yes -Procedure Performed Yes -Type of Procedure Debridement -Clinical Debridement Subcutaneous -Tissue Removed Subcutaneous -Post Debridement (cm) - Length 3.0 -Post Debridement (cm) - Width 6.0 -Post Debridement (cm) - Depth 0.1 -Total Square (Post) (cm) 18.00 -Area of Debridement (cm) - Length 3.0 -Area of Debridement (cm) - Width 6.0 -Total Square (Area) (cm) 18.00 -Tunneling No -Undermining/Tunneling No -Circular Undermining No -Wound/Ulcer Outcome Not Healed -Ulcer Cleansing Rinsed/ Irrigated with Saline -Foul Odor after Cleansing No -Bioengineered Tissue No -Bleeding Controlled with Pressure -Offloading No -Treatment Response Procedure Tolerated Well -Debridement - Subq, 1st 20sq cm No #6 left beasley cluster -Time 09:44 -Correct Patient Yes -Correct Side, Site, Position Yes -Correct Procedure Yes -Procedure Performed Yes -Type of Procedure Debridement -Clinical Debridement Subcutaneous -Tissue Removed Subcutaneous -Post Debridement (cm) - Length 10.0 -Post Debridement (cm) - Width 3.0 -Post Debridement (cm) - Depth 0.1 -Total Square (Post) (cm) 30.00 -Area of Debridement (cm) - Length 10.0 -Area of Debridement (cm) - Width 3.0 -Total Square (Area) (cm) 30.00 -Tunneling No -Undermining/Tunneling No -Circular Undermining No -Wound/Ulcer Outcome Not Healed -Ulcer Cleansing Rinsed/ Irrigated with Saline -Foul Odor after Cleansing No -Bioengineered Tissue No -Bleeding Controlled with Pressure -Treatment Response Procedure Tolerated Well -Debridement - Subq, 1st 20sq cm Yes -Debridement, SubQ, ea addt'l 20sq cm 1 or part thereof 5. L foot plantar foot/toes cluster -Time 09:47 -Correct Patient Yes -Correct Side, Site, Position Yes -Correct Procedure Yes -Procedure Performed No -Tunneling No -Undermining/Tunneling No -Circular Undermining No -Wound/Ulcer Outcome Healed- Epithelialized Pain Scale: 0-10 Numeric Is Patient Pain Free? Yes Wound debrided: Left beasley cluster Type of Debridement: Excisional debridement Anesthesia Used: 5% Lidocaine Gel Depth: Down to and including healthy tissue, in the subcutaneous layer Percentage of wound debrided: 100 Instrument Used: 7mm curette Tissue Removed: Fibrin devitalized tissue Severity: Limited To Skin Breakdown Amount of bleeding with debridement: None Bleeding Controlled with: Pressure Patient tolerated procedure well - Additional Wound Wound debrided: Left medial foot wound Type of Debridement: Excisional debridement Anesthesia Used: 5% Lidocaine Gel Depth: Down to and including healthy tissue Instrument Used: 7mm curette Tissue Removed: Devitalized tissue and fibrin Severity: Limited To Skin Breakdown Amount of bleeding with debridement: None Bleeding Controlled with: Compression and gauze Assessment/Plan Active Problems (Last Reviewed 07/23/17 @ 13:39 by Melany Dumas) Edema of left lower leg (Acute) Edema of left lower leg due to peripheral venous insufficiency (Acute) Nonhealing nonsurgical wound limited to breakdown of skin (Acute) Assessment: Return left foot maceration with worsening status resolved. Left foot ulcer with fat layer exposed resolved. Cellulitis treatment initiated changed antibiotic to Levaquin. Nonsurgical none pressure wounds to the beasley. malnutrition suspected. Tobacco abuse. Other medical comorbidities. Lower extremity edema. Noncompliance Plan: I reviewed and discussed his case including etiology, comprehensive wound healing plan, and anticipated healing time and management. Debridement was performed today as noted in the clinical panel. Saline irrigation was performed . He is on Levaquin at this time. To wash with antibacterial soap such as Dial. Continue dressing care with Dakin solution to the medial foot. Apply Fibracol to the left beasley area moistened covered with gauze and [place]. To continue to be diligent with drying in between the toes and reducing swelling of the lower extremity. I recommended use of a surgical shoe which was offered today. To spray Lysol and she is in shower to prevent recurrence. To maintain good foot hygiene by washing daily with soap and water, drying the skin well, and performing moisturization avoiding the webspaces. To change socks daily. To resume Tubigrip or Tomas wraps for compression. He was previously provided with a venous specialist referral. To avoid dangling his legs down and this is an issue while he goes outside to smoke. To avoid idle standing or sitting. To elevate the limbs at rest. Smoking cessation was also advised. I reviewed with him that his accountability is imperative for him to have success with this treatment plan. Previous arterial and venous studies were completed. He has good waveforms to the ankle level and a right PATRICE 1.33 and left PATRICE 1.28. There is evidence of calcification and the accuracy of this test is in question. Further testing may be warranted if continued lack of healing is noted. It is also noted that he had a venous Doppler exam with reflux evaluation performed in 2017 which demonstrated superficial thrombophlebitis in mid calf varicosities noted in the left lower extremity. I recommend a referral to vascular specialist, Dr. Lott's input is greatly appreciated. To return to the wound healing center in 1 week. I answer his questions. . Quality measures reviewed as the following: Updated today: Medication and allergy reconciliation, he denies falling within the past year. Updated 04/30/2019: He denies following with in the past year. Reviewed on 03-12-2019: up-to-date pneumonia vaccination status was not confirmed due to patient refusal, he has does not have an up-to-date influenza immunization due to patient refusal, he does not have a living will on file. He is a smoker and smoking cessation was reviewed. He does have elevated blood pressure at or above 120/80 mmHg and also elevated body mass index. For these issues I recommend he follows up with his primary care physician as scheduled. He was counseled on the importance of diet and exercise as well.
[2019-12-17 09:53] VITALS: BP 127/76; PULSE 79; RESP 18; TEMP 36.5; BMI 31.8
--- NOTE | 2019-12-17 11:47 | PN.PCM_ITS ---
(1) Cellulitis of left lower limb Status: Resolved Code(s): L03.116 - Cellulitis of left lower limb (2) Venous insufficiency (chronic) (peripheral) Status: Chronic Code(s): I87.2 - Venous insufficiency (chronic) (peripheral) (3) Chronic ulcer of left foot with fat layer exposed Status: Resolved Code(s): L97.522 - Non-pressure chronic ulcer of other part of left foot with fat layer exposed Type of Wound Date of Service: 12/17/19 Chief Complaint: Left foot maceration return now with ulcer History of Wound: This 59-year-old male with significant past medical history of bipolar disorder presents complaining of a left foot returned foot moisture and skin peeling. He denies fever, chill, nausea. He denies redness or known odor. He resides at [facility] and continues to smoke each day. He completed course of recent levofloxacin after his last wound cultures developed. He was using Dakin wet-to-dry dressings and this was the discontinued because the ulcers resolved. He has some dry peeling skin. He relates he tries to elevate his legs more while he is taking naps periodically throughout the day. Progress of Wound: Healed - Physical Exam Vital Signs Temp Pulse Resp BP 97.7 F L 79 18 127/76 H 12/17/19 09:53 12/17/19 09:53 12/17/19 09:53 12/17/19 09:53 General: Alert, Oriented x3, Cooperative, No apparent distress HEENT: Atraumatic Extremities: No cyanosis, Capillary Refill Less than 3 Seconds, No Calf Tenderness, Diminished Peripheral Pulses, Edema Skin: Ulcer/ Wound - No purulence, erythema, string, odor, infection. Excessive skin peeling noted with some intermittent abrasive changes. There is no maceration. His skin is very hairless and atrophic. There is hyperpigmentation noted to the lower limb. Varicosities noted Wound Measurements and Assessment WC - Nurse 1 - General Ulcer Measurement Start: 12/10/19 09:02 Freq: Status: Active Protocol: Activity Type Activity Date Activity User E-Sign Co-Sign Detail Recorded Client Recorded Date Recorded By Document 12/17/19 09:53 DL [id number] 12/17/19 10:00 DL 12/17/19 09:53 Wound Center Nurse 1 [Ulcer Assessment] #7 left medial foot -Current Size (cm) - Length 0.1 -Current Size (cm) - Width 0.1 -Current Size (cm) - Depth 0.1 -Total Square Cm 0.01 -Photo Taken No -Exudate Amt None Present -Wound Margin Thickened -Granulation Amt Large (67-100%) -Granulation Quality Red -Necrosis Amt Small (1-33%) -Necrotic Tissue Type Adherent Slough -Structure Exposed N/A -Texture (Brandi-wound Skin Appearance) Scarring -Moisture (Brandi-wound Skin Appearance Dry/Scaly ) -Color (Brandi-wound Skin Appearance) Hemosiderin Staining -Temperature (Brandi-wound Skin No Abnormality Appearance) (Pt Warm) -Tenderness on Palpation (Brandi-wound No Skin Appearance) -Ulcer Cleansing Rinsed/ Irrigated with Saline -Foul Odor after Cleansing No -Anesthetic Used 4% Lidocaine Solution #6 left beasley cluster -Current Size (cm) - Length 0.1 -Current Size (cm) - Width 0.1 -Current Size (cm) - Depth 0.1 -Total Square Cm 0.01 -Photo Taken No -Exudate Amt None Present -Wound Margin Thickened -Granulation Amt Large (67-100%) -Granulation Quality [place] -Necrosis Amt Small (1-33%) -Necrotic Tissue Type Adherent Slough -Structure Exposed N/A -Moisture (Brandi-wound Skin Appearance Dry/Scaly ) -Color (Brandi-wound Skin Appearance) Hemosiderin Staining -Temperature (Brandi-wound Skin No Abnormality Appearance) (Pt Warm) -Tenderness on Palpation (Brandi-wound No Skin Appearance) -Ulcer Cleansing Rinsed/ Irrigated with Saline -Foul Odor after Cleansing No -Anesthetic Used 4% Lidocaine Solution RA - Nurse 2 - General Ulcer CM Notes Start: 12/10/19 09:02 Freq: Status: Active Protocol: Activity Type Activity Date Activity User E-Sign Co-Sign Detail Recorded Client Recorded Date Recorded By Document 12/17/19 10:40 MOSHE [id number] 12/17/19 10:45 MOSHE 12/17/19 10:40 Wound Center Nurse 2 [Procedure/Treatment] #7 left medial foot -Correct Patient No -Correct Side, Site, Position No -Correct Procedure No -Procedure Performed No -Post Debridement (cm) - Length 0 -Post Debridement (cm) - Width 0 -Post Debridement (cm) - Depth 0 -Total Square (Post) (cm) 0 -Area of Debridement (cm) - Length 0 -Area of Debridement (cm) - Width 0 -Total Square (Area) (cm) 0 -Wound/Ulcer Outcome Healed- Epithelialized #6 left beasley cluster -Correct Patient No -Correct Side, Site, Position No -Correct Procedure No -Procedure Performed No -Post Debridement (cm) - Length 0 -Post Debridement (cm) - Width 0 -Post Debridement (cm) - Depth 0 -Total Square (Post) (cm) 0 -Area of Debridement (cm) - Length 0 -Area of Debridement (cm) - Width 0 -Total Square (Area) (cm) 0 -Wound/Ulcer Outcome Healed- Epithelialized [See Physician Procedure note for Specifics] Pain Scale: 0-10 Numeric [Pain] -Is Patient Pain Free? Yes - Nurse 3 - General Ulcer D/C NN Start: 12/10/19 09:02 Freq: Status: Active Protocol: Activity Type Activity Date Activity User E-Sign Co-Sign Detail Recorded Client Recorded Date Recorded By Document 12/17/19 11:02 [facility] [id number] 12/17/19 11:02 [facility] 12/17/19 11:02 Wound Care Nurse 3 [Compression Applied] Left -Compression Wrap Tomas Wrap Pain Scale: 0-10 Numeric [Pain] -Is Patient Pain Free? Yes - Visit Discharge [Visit Discharge Information] -Discharge Condition Stable -Ambulatory Status Ambulatory, Walker [Facility Notification] -Other assisted living Musculoskeletal: No Tenderness to Palpation of Joints or Extremities, Muscle Wasting Neurological: Sensory exam intact to light touch and pain Psych/Mental Status: Normal Affect, Appropriate Debridement Note Post-Debridement Measurements/Treatment - Nurse 2 - General Ulcer CM Notes Start: 12/10/19 09:02 Freq: Status: Active Protocol: Activity Type Activity Date Activity User E-Sign Co-Sign Detail Recorded Client Recorded Date Recorded By Document 12/10/19 09:37 MW [id number] 12/10/19 09:53 MW Document 12/17/19 10:40 JF [id number] 12/17/19 10:45 12/10/19 12/17/19 09:37 10:40 Wound Center Nurse 2 #7 left medial foot -Time 09:50 -Correct Patient Yes No -Correct Side, Site, Position Yes No -Correct Procedure Yes No -Procedure Performed Yes No -Type of Procedure Debridement -Clinical Debridement Subcutaneous -Tissue Removed Subcutaneous -Post Debridement (cm) - Length 3.0 0 -Post Debridement (cm) - Width 6.0 0 -Post Debridement (cm) - Depth 0.1 0 -Total Square (Post) (cm) 18.00 0 -Area of Debridement (cm) - Length 3.0 0 -Area of Debridement (cm) - Width 6.0 0 -Total Square (Area) (cm) 18.00 0 -Tunneling No -Undermining/Tunneling No -Circular Undermining No -Wound/Ulcer Outcome Not Healed Healed- Epithelialized -Ulcer Cleansing Rinsed/ Irrigated with Saline -Foul Odor after Cleansing No -Bioengineered Tissue No -Bleeding Controlled with Pressure -Offloading No -Treatment Response Procedure Tolerated Well -Debridement - Subq, 1st 20sq cm No #6 left beasley cluster -Time 09:44 -Correct Patient Yes No -Correct Side, Site, Position Yes No -Correct Procedure Yes No -Procedure Performed Yes No -Type of Procedure Debridement -Clinical Debridement Subcutaneous -Tissue Removed Subcutaneous -Post Debridement (cm) - Length 10.0 0 -Post Debridement (cm) - Width 3.0 0 -Post Debridement (cm) - Depth 0.1 0 -Total Square (Post) (cm) 30.00 0 -Area of Debridement (cm) - Length 10.0 0 -Area of Debridement (cm) - Width 3.0 0 -Total Square (Area) (cm) 30.00 0 -Tunneling No -Undermining/Tunneling No -Circular Undermining No -Wound/Ulcer Outcome Not Healed Healed- Epithelialized -Ulcer Cleansing Rinsed/ Irrigated with Saline -Foul Odor after Cleansing No -Bioengineered Tissue No -Bleeding Controlled with Pressure -Treatment Response Procedure Tolerated Well -Debridement - Subq, 1st 20sq cm Yes -Debridement, SubQ, ea addt'l 20sq cm 2 or part thereof 5. L foot plantar foot/toes cluster -Time 09:47 -Correct Patient Yes -Correct Side, Site, Position Yes -Correct Procedure Yes -Procedure Performed No -Tunneling No -Undermining/Tunneling No -Circular Undermining No -Wound/Ulcer Outcome Healed- Epithelialized Pain Scale: 0-10 Numeric Is Patient Pain Free? Yes Yes WC - Nurse 3 - General Ulcer D/C NN Start: 12/10/19 09:02 Freq: Status: Active Protocol: Activity Type Activity Date Activity User E-Sign Co-Sign Detail Recorded Client Recorded Date Recorded By Document 12/10/19 10:07 DL [id number] 12/10/19 10:52 DL Document 12/17/19 11:02 [facility] [id number] 12/17/19 11:02 BM 12/10/19 12/17/19 10:07 11:02 Wound Care Nurse 3 #7 left medial foot -Ulcer Cleansing Wound Cleanser -Foul Odor after Cleansing No -Other Dressing dakins -Primary Dressing Covered/Secured with Dry Gauze & Roll Gauze, Secured with Tape #6 left beasley cluster -Ulcer Cleansing Wound Cleanser -Foul Odor after Cleansing No -Primary Dressing Applied Fibracol Plus 4x4 -Primary Dressing Covered/Secured with Dry Gauze & Roll Gauze, Secured with Tape -Fibracol Plus 4x4 1 Left -Compression Wrap Tomas Wrap Treatment Response Procedure Tolerated Well Vital Signs Temperature (97.8 F-99.1 F) 97.8 F Temperature Source Temporal Pulse Rate (60-100) 54 L Pulse Location Monitor Respiratory Rate (12-18) 22 H Respiratory rate source Observation Blood Pressure (90/60-120/80) 165/57 H Blood Pressure Mean (mm Hg) 93 Pain Scale: 0-10 Numeric Is Patient Pain Free? Yes Yes WC - Visit Discharge Discharge Condition Stable Stable Ambulatory Status Ambulatory, Ambulatory, Walker Walker Notes: To resume Dakins at [facility] Facility Type [facility] Facility Other assisted living Orders Sent Yes No debridement was completed today - healed Assessment/Plan Active Problems (Last Reviewed 07/23/17 @ 13:39 by Melany Dumas) Venous insufficiency (chronic) (peripheral) (Chronic) Edema of left lower leg (Acute) Edema of left lower leg due to peripheral venous insufficiency (Acute) Nonhealing nonsurgical wound limited to breakdown of skin (Acute) Assessment: Return left foot maceration with worsening status resolved. Left foot ulcers healed. Cellulitis treatment initiated changed antibiotic to L evaquin-resolved. malnutrition suspected. Tobacco abuse. Other medical comorbidities. Lower extremity edema. Noncompliance Plan: I reviewed and discussed his case including etiology, comprehensive wound healing plan, and anticipated healing time and management. Debridement was not performed because the ulcer has healed. It is noted he completed a recent course of Levaquin. To wash with antibacterial soap such as Dial. Continue dressing care with dry gauze to the foot. If drainage and wound returns he was advised to resume Dakin application. To continue to be diligent with drying in between the toes and reducing swelling of the lower extremity. I recommended use of a surgical shoe which was offered today. To spray Lysol and she is in shower to prevent recurrence. To maintain good foot hygiene by washing daily with soap and water, drying the skin well, and performing moisturization avoiding the webspaces. To change socks daily. To resume Tubigrip or Tomas wraps for compression. He was previously provided with a venous specialist referral. To avoid dangling his legs down and this is an issue while he goes outside to smoke. To avoid idle standing or sitting. To elevate the limbs at rest. Smoking cessation was also advised. I reviewed with him that his accountability is imperative for him to have success with this treatment plan. Previous arterial and venous studies were completed. He has good waveforms to the ankle level and a right PATRICE 1.33 and left PATRICE 1.28. There is evidence of calcification and the accuracy of this test is in question. Further testing may be warranted if continued lack of healing is noted. It is also noted that he had a venous Doppler exam with reflux evaluation performed in 2017 which demonstrated superficial thrombophlebitis in mid calf varicosities noted in the left lower extremity. He already completed his vein specialist referral and was advised to return to clinic in 6 months. He was advised to use compression stockings. He is not able to tolerate this and likes to wear 2 Tomas wraps. He has had recent improvement in compliance with the Tomas wrap application. To return to the wound healing center in 2 weeks for healed ulcer check and to confirm his infection remains resolved. I answer his questions. . Quality measures reviewed as the following: Updated today: Medication and allergy reconciliation, he denies falling within the past year. Updated 04/30/2019: He denies following with in the past year. Reviewed on 03-12-2019: up-to-date pneumonia vaccination status was not confirmed due to patient refusal, he has does not have an up-to-date influenza immunization due to patient refusal, he does not have a living will on file. He is a smoker and smoking cessation was reviewed. He does have elevated blood pressure at or above 120/80 mmHg and also elevated body mass index. For these issues I recommend he follows up with his primary care physician as scheduled. He was counseled on the importance of diet and exercise as well.
== END 2020-01-03 23:59 ==
LOC: WC 09:45
PROVIDERS: PCP Nurse Practitioner Adult Health; Visit Provider Podiatrist
DX: I73.89 Other specified peripheral vascular diseases (principal); I87.2 Venous insufficiency (chronic) (peripheral); R60.0 Localized edema; L03.116 Cellulitis of left lower limb; L98.8 Other specified disorders of the skin and subcutaneous tissue; E66.9 Obesity, unspecified; B35.3 Tinea pedis; L97.521 Non-pressure chronic ulcer of other part of left foot limited to breakdown of skin; L97.821 Non-pressure chronic ulcer of other part of left lower leg limited to breakdown of skin; Z91.19 Patient's noncompliance with other medical treatment and regimen
CPT/HCPCS: 11042; 11045; 99212; 99213; G0463

== ENCOUNTER 2020-01-07 10:15 | Outpatient (RCR) | payer MEDICARE, MEDICAID, SELFPAY ==
[2020-01-04 00:09] VITALS: BP 127/76; PULSE 79; RESP 18; TEMP 36.5
[2020-01-07 10:25] VITALS: BP 133/72; PULSE 78; RESP 18; TEMP 36.4; BMI 31.8
--- NOTE | 2020-01-07 22:16 | PCM.WC.PN ---
(1) Venous insufficiency (chronic) (peripheral) Status: Chronic Code(s): I87.2 - Venous insufficiency (chronic) (peripheral) (2) Maceration of skin Status: Resolved Code(s): L98.8 - Other specified disorders of the skin and subcutaneous tissue (3) Ulcer of left foot, limited to breakdown of skin Status: Resolved Code(s): L97.521 - Non-pressure chronic ulcer of other part of left foot limited to breakdown of skin Type of Wound Date of Service: 01/07/20 Chief Complaint: Left foot maceration and ulcer resolved History of Wound: This 59-year-old male with significant past medical history of bipolar disorder presents complaining of a left foot returned foot moisture and skin peeling. He denies fever, chill, nausea. He denies redness or known odor. He resides at [facility] and continues to smoke each day. He completed course of recent levofloxacin after his last wound cultures developed. He was using Dakin wet-to-dry dressings and this was the discontinued because the ulcers resolved. He has some dry peeling skin. He relates he tries to elevate his legs more while he is taking naps periodically throughout the day. Progress of Wound: Healed - Physical Exam Vital Signs Temp Pulse Resp BP 97.6 F L 78 18 133/72 H 01/07/20 10:25 01/07/20 10:25 01/07/20 10:25 01/07/20 10:25 General: Alert, Oriented x3, Cooperative, No apparent distress Extremities: No cyanosis, Capillary Refill Less than 3 Seconds, No Calf Tenderness, Diminished Peripheral Pulses, Edema - Decreased Skin: Ulcer/ Wound - No purulence, erythema, streaking, odor, infection, maceration, skin peeling or necrosis Wound Measurements and Assessment WC - Nurse 1 - General Ulcer Measurement Start: 01/07/20 10:24 Freq: Status: Discharge Protocol: Activity Type Activity Date Activity User E-Sign Co-Sign Detail Recorded Client Recorded Date Recorded By Document 01/07/20 10:25 [facility] [id number] 01/07/20 10:28 [facility] Edit Status 01/07/20 11:03 MARGARITA DADADA Active=>Discharge [id number] 01/07/20 11:03 MARGARITA DAFRANCOON 01/07/20 10:25 Wound Center Nurse 1 [Edema Assessment] -Lower Limb Edema Present Yes -Left Calf (cm) 39 -Left Ankle (cm) 29.4 - Nurse 2 - General Ulcer CM Notes Start: 01/07/20 10:24 Freq: Status: Discharge Protocol: Activity Type Activity Date Activity User E-Sign Co-Sign Detail Recorded Client Recorded Date Recorded By Document 01/07/20 10:48 MOSHE [id number] 01/07/20 10:51 Edit Status 01/07/20 11:03 BKG DAEMON Active=>Discharge [facility] 01/07/20 11:03 BKG DAEMON 01/07/20 10:48 Pain Scale: 0-10 Numeric [Pain] -Is Patient Pain Free? Yes - Nurse 3 - General Ulcer D/C NN Start: 01/07/20 10:24 Freq: Status: Discharge Protocol: Activity Type Activity Date Activity User E-Sign Co-Sign Detail Recorded Client Recorded Date Recorded By Document 01/07/20 10:51 MOSHE [id number] 01/07/20 10:51 Edit Status 01/07/20 11:03 BKG DAEMON Active=>Discharge [facility] 01/07/20 11:03 BKG DAEMON 01/07/20 10:51 -Is Patient Pain Free? Yes - Visit Discharge [Visit Discharge Information] -Discharge Condition Stable -Ambulatory Status Ambulatory, Walker -Transportation Private Auto -Medication Reconcilliation completed Yes & provided to patient/care provider -Clinical Summary of Care Provided Yes Musculoskeletal: No Tenderness to Palpation of Joints or Extremities, Muscle Wasting Neurological: Sensory exam intact to light touch and pain Psych/Mental Status: Normal Affect, Appropriate Debridement Note Post-Debridement Measurements/Treatment - Nurse 2 - General Ulcer CM Notes Start: 01/07/20 10:24 Freq: Status: Discharge Protocol: Activity Type Activity Date Activity User E-Sign Co-Sign Detail Recorded Client Recorded Date Recorded By Document 01/07/20 10:48 MOSHE [id number] 01/07/20 10:51 01/07/20 10:48 Pain Scale: 0-10 Numeric Is Patient Pain Free? Yes - Nurse 3 - General Ulcer D/C NN Start: 01/07/20 10:24 Freq: Status: Discharge Protocol: Activity Type Activity Date Activity User E-Sign Co-Sign Detail Recorded Client Recorded Date Recorded By Document 01/07/20 10:51 JF [id number] 01/07/20 10:51 MOSHE 01/07/20 10:51 Is Patient Pain Free? Yes WC - Visit Discharge Discharge Condition Stable Ambulatory Status Ambulatory, Walker Transportation Private Auto Medication Reconcilliation completed & Yes provided to patient/care provider Clinical Summary of Care Provided Yes Wound debrided: foot Laterality: Left No debridement was completed today - healed today Assessment/Plan Active Problems (Last Reviewed 07/23/17 @ 13:39 by Melany Dumas) Venous insufficiency (chronic) (peripheral) (Chronic) Assessment: Return left foot maceration with worsening status resolved. Left foot ulcers healed. Cellulitis treatment initiated changed antibiotic to Levaquin-resolved. malnutrition suspected. Tobacco abuse. Other medical comorbidities. Lower extremity edema. Noncompliance Plan: I reviewed and discussed his case including etiology, comprehensive wound healing plan, and anticipated healing time and management. Debridement was not performed because the ulcer has healed. It is noted he completed a recent course of Levaquin. To wash with antibacterial soap such as Dial. To discontinue dressing care and to follow-up with the wound healing center as needed. His ulcer site is healed. To continue to be diligent with drying in between the toes and reducing swelling of the lower extremity. To wear properly supportive and protective shoes. If he has returned edema and foot maceration I recommend he wears an offloading sneaker with the toe box cut out or return to a surgical shoe. To spray Lysol and she is in shower to prevent recurrence. To maintain good foot hygiene by washing daily with soap and water, drying the skin well, and performing moisturization avoiding the webspaces. To change socks daily. To resume Tubigrip or Tomas wraps for compression. He was previously provided with a venous specialist referral. To avoid dangling his legs down and this is an issue while he goes outside to smoke. To avoid idle standing or sitting. To elevate the limbs at rest. Smoking cessation was also advised. I reviewed with him that his accountability is imperative for him to have success with this treatment plan. Previous arterial and venous studies were completed. He has good waveforms to the ankle level and a right PATRICE 1.33 and left PATRICE 1.28. There is evidence of calcification and the accuracy of this test is in question. It is also noted that he had a venous Doppler exam with reflux evaluation performed in 2017 which demonstrated superficial thrombophlebitis in mid calf varicosities noted in the left lower extremity. He already completed his vein specialist referral and was advised to return to clinic in 6 months. He was advised to use compression stockings. He is not able to tolerate this and likes to wear 2 Tomas wraps. He has had recent improvement in compliance with the Tomas wrap application. I answer his questions. He is discharged at this time. . Quality measures reviewed as the following: Updated today: Medication and allergy reconciliation, he denies falling within the past year. Updated 04/30/2019: He denies following with in the past year. Reviewed on 03-12-2019: up-to-date pneumonia vaccination status was not confirmed due to patient refusal, he has does not have an up-to-date influenza immunization due to patient refusal, he does not have a living will on file. He is a smoker and smoking cessation was reviewed. He does have elevated blood pressure at or above 120/80 mmHg and also elevated body mass index. For these issues I recommend he follows up with his primary care physician as scheduled. He was counseled on the importance of diet and exercise as well.
== END 2020-01-07 11:02 | disposition home or self-care (01) ==
LOC: WC 10:15
PROVIDERS: PCP Nurse Practitioner Adult Health; Visit Provider Podiatrist
DX: Z09 Encounter for follow-up examination after completed treatment for conditions other than malignant neoplasm (principal); Z91.19 Patient's noncompliance with other medical treatment and regimen; Z72.0 Tobacco use; I87.2 Venous insufficiency (chronic) (peripheral); L98.8 Other specified disorders of the skin and subcutaneous tissue
CPT/HCPCS: 99212; G0463

== ENCOUNTER 2020-09-22 13:00 | Outpatient (RCR) | payer MEDICARE, MEDICAID, SELFPAY ==
[2020-09-08 09:09] VITALS: BP 128/70; PULSE 86; RESP 16; TEMP 36.9; BMI 31.8
--- NOTE | 2020-09-08 11:17 | PCM.WC.PN ---
History of Present Illness Date of Service: 09/08/20 Chief Complaint: Left and right foot maceration and ulcers History of Wound: This 60-year-old male with significant past medical history of bipolar disorder presents complaining of a left and right foot returned foot moisture and skin ulcer with onset of 3-4 weeks ago. He denies fever, chill, nausea. He denies redness or known odor. He resides at [facility] and continues to smoke each day. He was using Dakin wet-to-dry dressings at times and sometimes just a dry gauze. He has the toe portion of his shoes cut out to offload. He has not been wearing compression garments recently. He thinks he did a 10-day course of an antibiotic in which he does not remember for sure nor does he remember which antibiotic he was on. Progress of Wound: New bilateral Objective Data Objective Data Vital Signs: Vital Signs Temp Pulse Resp BP 98.5 F 86 16 128/70 H 09/08/20 09:09 09/08/20 09:09 09/08/20 09:09 09/08/20 09:09 Oxygen Delivery Method Room Air Body Mass Index (BMI) 31.8 Physical Exam Const alert and oriented x3 General Appearance: cooperative HEENT normocephalic Extremity Extremity Narrative: No calf tenderness Diminished pulses Muscle wasting noted Edema bilateral lower extremities moderate with varicosities and some hyperpigmentation including the foot and legs General Extremity: edema and no tenderness to palpation of joints or extremities; Negative for cyanosis Skin Skin Narrative: no purulence, no streaking, no odor, no infection. Skin discontinuity right foot at the dorsal aspect and interdigital. Skin discontinuity left foot dorsal aspect and to all interdigital spaces with skin peeling, maceration. The ulcer beds are granular fibers without deep tissue exposure or necrosis or eschar General Skin Exam: Negative for erythema Neuro Neuro Narrative: lack of normal epicritic sensation via light touch is consistent with neuropathy status Psych cooperative and affect normal Debridement Note Debridement Note Post-Debridement Measurements and Additional Note: Post-Debridement Measurements/Treatment RA - Nurse 1 - General Ulcer Assessment Start: 09/08/20 09:04 Freq: Status: Active Protocol: RA.JODI Activity Type Activity Date Activity User E-Sign Co-Sign Detail Recorded Client Recorded Date Recorded By Document 09/08/20 09:09 [facility] [id number] 09/08/20 09:26 [facility] 09/08/20 09:09 - Today's Visit Information Type of service Initial Visit Arrival Mode Ambulatory Transfer Assistance None Patient Identification Verified (Name & Yes ) Patient Requires Transmission-Based No Precautions Height and Weight Body Mass Index (BMI) 31.8 BMI Classification Obese Vital Signs Temperature (97.8 F-99.1 F) 98.5 F Temperature Source Temporal Pulse Rate (60-100) 86 Pulse Location Monitor Respiratory Rate (12-18) 16 Respiratory rate source Observation Oxygen Delivery Method Room Air Blood Pressure (90/60-120/80) 128/70 H Blood Pressure Mean (mm Hg) 89 Source Monitor Position Sitting Blood Pressure Location Left Arm History Since Last Visit- (Skip if this is Patient's initial visit) Left Footwear Regular Shoe Right Footwear Regular Shoe Pain Scale: 0-10 Numeric Is Patient Pain Free? Yes - Nurse 1 - General Ulcer Measurement Start: 09/08/20 09:04 Freq: Status: Active Protocol: Activity Type Activity Date Activity User E-Sign Co-Sign Detail Recorded Client Recorded Date Recorded By Document 09/08/20 09:09 [facility] [id number] 09/08/20 09:26 [facility] 09/08/20 09:09 Wound Center Nurse 1 #11- R LAT DORSAL FOOT -Combined with other wound No -Current Size (cm) - Length 3 -Current Size (cm) - Width 2 -Current Size (cm) - Depth 0.1 -Total Square Cm 6 -Date of Last Picture (Recall this 09/08/20 field) -Photo Taken Yes -Epithelialization None Present -Tunneling No -Undermining/Tunneling No -Circular Undermining No -Exudate Amt Medium -Exudate Type Serosanguineous -Wound Margin Distinct, Outline Attached -Granulation Amt Small (1-33%) -Granulation Quality Red -Slough/Fibrin Yes -Necrosis Amt Large (67-100%) -Necrotic Tissue Type Adherent Slough -Texture (Brandi-wound Skin Appearance) Assessed, Scarring -Moisture (Brandi-wound Skin Appearance) Assessed,Dry/ Scaly -Color (Brandi-wound Skin Appearance) Assessed -Temperature (Brandi-wound Skin No Abnormality Appearance) (Pt Warm) -Tenderness on Palpation (Brandi-wound Yes Skin Appearance) -Ulcer Cleansing SOAPY WATER -Foul Odor after Cleansing No -Anesthetic Used 4% Lidocaine Solution #10- R 2ND TOE -Combined with other wound No -Current Size (cm) - Length 2 -Current Size (cm) - Width 1.3 -Current Size (cm) - Depth 0.1 -Total Square Cm 2.6 -Date of Last Picture (Recall this 09/08/20 field) -Photo Taken Yes -Epithelialization None Present -Tunneling No -Undermining/Tunneling No -Circular Undermining No -Exudate Amt Medium -Exudate Type Serosanguineous -Wound Margin Distinct, Outline Attached -Granulation Amt Small (1-33%) -Granulation Quality Red -Slough/Fibrin Yes -Necrosis Amt Large (67-100%) -Necrotic Tissue Type Adherent Slough -Texture (Brandi-wound Skin Appearance) Assessed, Scarring -Moisture (Brandi-wound Skin Appearance) Assessed, Maceration -Color (Brandi-wound Skin Appearance) Assessed,Palor -Temperature (Brandi-wound Skin No Abnormality Appearance) (Pt Warm) -Tenderness on Palpation (Brandi-wound Yes Skin Appearance) -Ulcer Cleansing SOAPY WATER -Foul Odor after Cleansing No -Anesthetic Used 4% Lidocaine Solution #9- L 2ND/3RD TOES -Combined with other wound No -Current Size (cm) - Length 5 -Current Size (cm) - Width 4 -Current Size (cm) - Depth 0.1 -Total Square Cm 20 -Date of Last Picture (Recall this 09/08/20 field) -Photo Taken Yes -Epithelialization None Present -Tunneling No -Undermining/Tunneling No -Circular Undermining No -Exudate Amt Medium -Exudate Type Serosanguineous -Wound Margin Distinct, Outline Attached -Granulation Amt Small (1-33%) -Granulation Quality Pale -Slough/Fibrin Yes -Necrosis Amt Small (1-33%) -Necrotic Tissue Type Adherent Slough -Texture (Brandi-wound Skin Appearance) Assessed, Scarring -Moisture (Brandi-wound Skin Appearance) Assessed, Maceration,Dry/ Scaly -Color (Brandi-wound Skin Appearance) Assessed,Palor -Temperature (Brandi-wound Skin No Abnormality Appearance) (Pt Warm) -Tenderness on Palpation (Brandi-wound Yes Skin Appearance) -Ulcer Cleansing SOAPY WATER -Foul Odor after Cleansing No -Anesthetic Used 4% Lidocaine Solution #8- L LATERAL DORSAL FOOT -Combined with other wound No -Current Size (cm) - Length 2.8 -Current Size (cm) - Width 3 -Current Size (cm) - Depth 0.2 -Total Square Cm 8.4 -Date of Last Picture (Recall this 09/08/20 field) -Photo Taken Yes -Epithelialization None Present -Tunneling No -Undermining/Tunneling No -Circular Undermining No -Exudate Amt Medium -Exudate Type Serosanguineous -Wound Margin Distinct, Outline Attached -Granulation Amt Small (1-33%) -Granulation Quality Pale -Slough/Fibrin Yes -Necrosis Amt Large (67-100%) -Necrotic Tissue Type Adherent Slough -Texture (Brandi-wound Skin Appearance) Assessed, Scarring -Moisture (Brandi-wound Skin Appearance) Assessed,Dry/ Scaly -Color (Brandi-wound Skin Appearance) Assessed -Temperature (Brandi-wound Skin No Abnormality Appearance) (Pt Warm) -Tenderness on Palpation (Brandi-wound Yes Skin Appearance) -Ulcer Cleansing SOAPY WTAER -Foul Odor after Cleansing No -Anesthetic Used 4% Lidocaine Solution Lower Limb Edema Present Yes Right Calf (cm) 40.2 Right Ankle (cm) 30 Left Calf (cm) 43 Left Ankle (cm) 31.3 WC - Nurse 2 - General Ulcer CM Notes Start: 09/08/20 09:04 Freq: Status: Active Protocol: Activity Type Activity Date Activity User E-Sign Co-Sign Detail Recorded Client Recorded Date Recorded By Document 09/08/20 09:57 [facility] [id number] 09/08/20 10:01 [facility] 09/08/20 09:57 Wound Center Nurse 2 #11- R LAT DORSAL FOOT -Time 09:58 -Correct Patient Yes -Correct Side, Site, Position Yes -Correct Procedure Yes -Procedure Performed Yes -Type of Procedure Incision & Drainage -Clinical Debridement Subcutaneous -Tissue Removed Subcutaneous -Post Debridement (cm) - Length 3.1 -Post Debridement (cm) - Width 2.1 -Post Debridement (cm) - Depth 0.1 -Total Square (Post) (cm) 6.51 -Area of Debridement (cm) - Length 3.1 -Area of Debridement (cm) - Width 2.1 -Total Square (Area) (cm) 6.51 -Tunneling No -Undermining/Tunneling No -Circular Undermining No -Wound/Ulcer Outcome Not Healed -Ulcer Cleansing Wound Cleanser -Foul Odor after Cleansing No -Bioengineered Tissue No -Bleeding Controlled with Pressure -Offloading No -Treatment Response Procedure Tolerated Well -Debridement - Subq, 1st 20sq cm No #10- R 2ND TOE -Time 09:58 -Correct Patient Yes -Correct Side, Site, Position Yes -Correct Procedure Yes -Procedure Performed Yes -Type of Procedure Debridement -Clinical Debridement Subcutaneous -Tissue Removed Subcutaneous -Post Debridement (cm) - Length 2 -Post Debridement (cm) - Width 1.4 -Post Debridement (cm) - Depth 0.1 -Total Square (Post) (cm) 2.8 -Area of Debridement (cm) - Length 2 -Area of Debridement (cm) - Width 1.4 -Total Square (Area) (cm) 2.8 -Tunneling No -Undermining/Tunneling No -Circular Undermining No -Wound/Ulcer Outcome Not Healed -Ulcer Cleansing Wound Cleanser -Foul Odor after Cleansing Yes, Due to Product Use -Bioengineered Tissue No -Bleeding Controlled with Pressure -Offloading No -Treatment Response Procedure Tolerated Well -Debridement - Subq, 1st 20sq cm No #9- L 2ND/3RD TOES -Time 09:59 -Correct Patient Yes -Correct Side, Site, Position Yes -Correct Procedure Yes -Procedure Performed Yes -Type of Procedure Debridement -Clinical Debridement Subcutaneous -Tissue Removed Subcutaneous -Post Debridement (cm) - Length 5 -Post Debridement (cm) - Width 4.1 -Post Debridement (cm) - Depth 0.1 -Total Square (Post) (cm) 20.5 -Area of Debridement (cm) - Length 5 -Area of Debridement (cm) - Width 4.1 -Total Square (Area) (cm) 20.5 -Tunneling No -Undermining/Tunneling No -Circular Undermining No -Wound/Ulcer Outcome Not Healed -Ulcer Cleansing Wound Cleanser -Foul Odor after Cleansing No -Bioengineered Tissue No -Bleeding Controlled with Pressure -Type of Offloading Total Contact Cast (TCC) - Left ($) -Treatment Response Procedure Tolerated Well -Debridement - Subq, 1st 20sq cm Yes -Debridement, SubQ, ea addt'l 20sq cm 1 or part thereof #8- L LATERAL DORSAL FOOT -Time 10:00 -Correct Patient Yes -Correct Side, Site, Position Yes -Correct Procedure Yes -Procedure Performed Yes -Type of Procedure Debridement -Clinical Debridement Subcutaneous -Tissue Removed Subcutaneous -Post Debridement (cm) - Length 2.8 -Post Debridement (cm) - Width 3 -Post Debridement (cm) - Depth 0.2 -Total Square (Post) (cm) 8.4 -Area of Debridement (cm) - Length 2.8 -Area of Debridement (cm) - Width 3 -Total Square (Area) (cm) 8.4 -Tunneling No -Undermining/Tunneling No -Circular Undermining No -Wound/Ulcer Outcome Not Healed -Ulcer Cleansing Rinsed/ Irrigated with Saline -Foul Odor after Cleansing No -Bioengineered Tissue No -Bleeding Controlled with Pressure -Offloading No -Treatment Response Procedure Not Tolerated Well -Debridement - Subq, 1st 20sq cm No Pain Scale: 0-10 Numeric Is Patient Pain Free? Yes WC - Nurse 3 - General Ulcer D/C NN Start: 09/08/20 09:04 Freq: Status: Active Protocol: Activity Type Activity Date Activity User E-Sign Co-Sign Detail Recorded Client Recorded Date Recorded By Document 09/08/20 10:05 [facility] [id number] 09/08/20 10:07 [facility] 09/08/20 10:05 Wound Care Nurse 3 #11- R LAT DORSAL FOOT -Ulcer Cleansing Rinsed/ Irrigated with Saline -Foul Odor after Cleansing No -Primary Dressing Applied Other -Other Dressing MOIST TO DRY -Primary Dressing Covered/Secured with Dry Gauze & Roll Gauze, Secured with Tape #10- R 2ND TOE -Primary Dressing Applied Other -Other Dressing MOIST TO DRY -Primary Dressing Covered/Secured with Dry Gauze & Roll Gauze #9- L 2ND/3RD TOES -Primary Dressing Applied Other -Other Dressing MOIST TO DRY -Primary Dressing Covered/Secured with Dry Gauze & Roll Gauze, Secured with Tape #8- L LATERAL DORSAL FOOT -Primary Dressing Applied Other -Other Dressing MOIST TO DRY -Primary Dressing Covered/Secured with Dry Gauze & Roll Gauze, Secured with Tape Right -Tubular Bandage Single Layer -Size of Tubigrip Used Size E -Size E ($) 1 Left -Tubular Bandage Single Layer -Size of Tubigrip Used Size E -Size E ($) 1 Treatment Response Procedure Tolerated Well Pain Scale: 0-10 Numeric Is Patient Pain Free? Yes WC - Visit Discharge Discharge Condition Stable Ambulatory Status Ambulatory, Walker Other [facility] Wound debrided: right foot: dorsal, interdigital Left foot: dorsal and all interdigital sp Wound Grade/Stage: Type of Debridement: Excisional debridement Anesthesia Used: 4% Lidocaine Solution Depth: in the subcutaneous layer Percentage of wound debrided: 100 Instrument Used: #15 blade Tissue Removed: fibrous, devitalized subcutaneous, biofilm, slough Severity: Fat Layer Exposed Amount of bleeding with debridement: Mild Bleeding Controlled with: Pressure Patient tolerated procedure: Patient tolerated procedure well Assessment/Plan Assessment/Plan (1) Tinea pedis: CODE(S): B35.3 - Tinea pedis (2) Colonization status: CODE(S): Z22.9 - Carrier of infectious disease, unspecified (3) Maceration of skin: CODE(S): L98.8 - Other specified disorders of the skin and subcutaneous tissue (4) Deep venous thrombosis of distal end of left lower extremity: CODE(S): I82.4Z2 - Acute embolism and thrombosis of unspecified deep veins of left distal lower extremity QUALIFIERS: Chronicity: acute Qualified Code(s): I82.4Z2 - Acute embolism and thrombosis of unspecified deep veins of left distal lower extremity (5) Edema of left lower leg: CODE(S): R60.0 - Localized edema (6) Ulcer of right foot with fat layer exposed: CODE(S): L97.512 - Non-pressure chronic ulcer of other part of right foot with fat layer exposed (7) Ulcer of left foot with fat layer exposed: CODE(S): L97.522 - Non-pressure chronic ulcer of other part of left foot with fat layer exposed PLAN: I reviewed and discussed his case today. Debridement was performed today as noted in the clinical panel to all of the ulcer sites. The following work up and care recommendations were made: Dressing: Daily with Dakin wet-to-dry gauze Wash: Antibacterial soap and water Tissue growth optimization: This will be considered in the future if there is lack of anticipated progress Offload: Open toed sneakers in which she already cut that dorsal fabric away Vascular: Previously reviewed and no intervention was recommended Edema: Bilateral Tubigrip's. He was previously diagnosed with venous insufficiency Infection: He does not have any cardinal signs of infection or systemic illness today. However with his maceration I am concerned of a tinea antifungal contribution and also bacterial. He has a history of recurrent bacterial infections and colonization. After debridement and saline irrigation was performed updated wound cultures were obtained including aerobic, anaerobic, acid-fast, fungal and MRSA PCR. Pain: Well controlled today Host factors: He was advised on smoking cessation and how this will delay wound healing. Labs: Ordered CBC, CMP, ESR, C-reactive protein The medical decision making level is moderate. There is noted moderate risk of morbidity after considering this treatment plan and diagnostic data. Considerations were given to prescription management, decisions regarding surgical options, or social determinants of health. The problems addressed require a moderate decision making level which includes one or more chronic illnesses (w/ exacerbation, progression, or side effects), two or more stable chronic illnesses, one undiagnosed new problem w/ uncertain prognosis, one acute illness with systemic symptoms, or one acute complicated injury. The medical decision making level is moderate based on data including at least three of the following: review of prior external notes, review of a test, ordering a test, assessment requiring an independent historian. I answered all the patient's questions. To return to the wound healing center in 1 week or call sooner if the patient has any questions or concerns.
[2020-09-08 15:47] LABS: Probe Check PASS; Staph aureus DNA By PCR POSITIVE (Negative)
[2020-09-08 15:49] LABS: M R Staph aureus DNA By PCR POSITIVE (Negative)
[2020-09-15 09:01] VITALS: BP 137/71; PULSE 77; RESP 18; TEMP 36.6; BMI 31.8
--- NOTE | 2020-09-15 09:17 | WC ---
REMOVED SRESSING ON RIGHT DORSUM FOOT AND EXCESSIVE BLEEDING NOTED AND PRESSURE APPLIED WITH GAUZE . DR ESCALONA AWARE AND CAME TO ROOM . SUNNY AND AUBRIE SMITH ACE APPLIED PER KIRILL BEATTY RN,
[2020-09-15 09:22] VITALS: BP 140/75; PULSE 73; BMI 31.8
--- NOTE | 2020-09-15 13:02 | PCM.WC.PN ---
History of Present Illness Date of Service: 09/15/20 Chief Complaint: Left and right foot maceration and ulcers History of Wound: This 60-year-old male with significant past medical history of bipolar disorder presents complaining of a left and right foot returned foot moisture and skin ulcer with onset of 3-4 weeks ago. He denies fever, chill, nausea. He denies redness or known odor. He resides at [facility] and continues to smoke each day. He was using Dakin wet-to-dry dressings. He has the toe portion of his shoes cut out to offload. He is taking antibiotics as advised and denies diarrhea or other side effects. He relates he has not been wearing compression or elevating and he knows this is an issue. He continues to smoke. Upon dressing removal via nursing staff, extensive projectile bleeding was noted coming from the dorsal right foot which pressure was immediately applied. The patient relates he has varicose veins in his feet and this did happen to him previously while he was showering several years ago which resulted in excessive bleeding requiring an emergency room visit. Progress of Wound: Stable wounds Excessive bleeding right foot Objective Data Objective Data Vital Signs: Vital Signs Temp Pulse Resp BP 98 F 73 18 140/75 H 09/15/20 09:01 09/15/20 09:22 09/15/20 09:01 09/15/20 09:22 Oxygen Delivery Method Room Air Body Mass Index (BMI) 31.8 Lab / Micro Data Micro: Microbiology 09/08/20 09:45 Tissue - Other Gram Stain - Final 09/08/20 09:45 Tissue - Other Wound Culture - Final Meth. resistant Staph. aureus Pseudomonas aeroginosa Providencia rettgeri 09/08/20 09:45 Tissue - Other Anaerobic Culture - Final Anaerobic cocci Physical Exam Const alert and oriented x3 General Appearance: cooperative HEENT normocephalic Extremity Extremity Narrative: No calf tenderness Diminished pulses Muscle wasting noted Edema bilateral lower extremities moderate with varicosities and some hyperpigmentation including the foot and legs General Extremity: edema and no tenderness to palpation of joints or extremities; Negative for cyanosis Skin Skin Narrative: no purulence, no streaking, no odor, no infection. Skin discontinuity right foot at the dorsal aspect and interdigital. Skin discontinuity left foot dorsal aspect and to all interdigital spaces with skin peeling, maceration. The ulcer beds are granular fibers without deep tissue exposure or necrosis or eschar. Reduced maceration. There is projectile bleeding coming from the dorsal right foot ulcer that has a venous tone to it. This is aggressive and pressure was applied for 20 minutes. Upon removal of the dressing no active bleeding was noted. General Skin Exam: Negative for erythema Neuro Neuro Narrative: lack of normal epicritic sensation via light touch is consistent with neuropathy status Psych cooperative and affect normal Debridement Note Debridement Note Post-Debridement Measurements and Additional Note: Post-Debridement Measurements/Treatment - Nurse 1 - General Ulcer Assessment Start: 09/08/20 09:04 Freq: Status: Active Protocol: WC.LOWEXT Activity Type Activity Date Activity User E-Sign Co-Sign Detail Recorded Client Recorded Date Recorded By Document 09/08/20 09:09 [facility] [id number] 09/08/20 09:26 [facility] Document 09/15/20 09:01 RB [id number] 09/15/20 09:19 RB Document 09/15/20 09:22 RB [id number] 09/15/20 09:22 RB 09/08/20 09/15/20 09/15/20 09:09 09:01 09:22 - Today's Visit Information Type of service Initial Visit 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 Visit (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 ) Arrival Mode Ambulatory Ambulatory, Walker Transfer Assistance None None Patient Identification Verified (Name & Yes Yes ) Patient Requires Transmission-Based No No Precautions Height and Weight Body Mass Index (BMI) 31.8 31.8 31.8 BMI Classification Obese Obese Obese Vital Signs Temperature (97.8 F-99.1 F) 98.5 F 98 F Temperature Source Temporal Temporal Pulse Rate (60-100) 86 77 73 Pulse Location Monitor Monitor Monitor Respiratory Rate (12-18) 16 18 Respiratory rate source Observation Observation Oxygen Delivery Method Room Air Blood Pressure (90/60-120/80) 128/70 H 137/71 H 140/75 H Blood Pressure Mean (mm Hg) 89 93 96 Source Monitor Monitor Monitor Position Sitting Semi-Fowlers Semi-Fowlers Blood Pressure Location Left Arm Left Arm Left Arm Have you changed medications since your No last visit? Any new allergies or adverse reactions No Had a fall/change in ADL's that may No increase risk of falls Signs or symptoms of abuse and/or No neglect since last visit Have you been in the hospital since your No last visit? Has dressing in place as prescribed Yes Has compression in place as prescribed No Has offloadiing in place as prescribed No Experienced any changes in pain level or No management History Since Last Visit- (Skip if this is Patient's initial visit) Left Footwear Regular Shoe Right Footwear Regular Shoe Pain Scale: 0-10 Numeric Is Patient Pain Free? Yes Yes WC - Nurse 1 - General Ulcer Measurement Start: 09/08/20 09:04 Freq: Status: Active Protocol: Activity Type Activity Date Activity User E-Sign Co-Sign Detail Recorded Client Recorded Date Recorded By Document 09/08/20 09:09 [facility] [id number] 09/08/20 09:26 [facility] 09/08/20 09:09 Wound Center Nurse 1 #11- R LAT DORSAL FOOT -Combined with other wound No -Current Size (cm) - Length 3 -Current Size (cm) - Width 2 -Current Size (cm) - Depth 0.1 -Total Square Cm 6 -Date of Last Picture (Recall this 09/08/20 field) -Photo Taken Yes -Epithelialization None Present -Tunneling No -Undermining/Tunneling No -Circular Undermining No -Exudate Amt Medium -Exudate Type Serosanguineous -Wound Margin Distinct, Outline Attached -Granulation Amt Small (1-33%) -Granulation Quality Red -Slough/Fibrin Yes -Necrosis Amt Large (67-100%) -Necrotic Tissue Type Adherent Slough -Texture (Brandi-wound Skin Appearance) Assessed, Scarring -Moisture (Brandi-wound Skin Appearance) Assessed,Dry/ Scaly -Color (Brandi-wound Skin Appearance) Assessed -Temperature (Brandi-wound Skin No Abnormality Appearance) (Pt Warm) -Tenderness on Palpation (Brandi-wound Yes Skin Appearance) -Ulcer Cleansing SOAPY WATER -Foul Odor after Cleansing No -Anesthetic Used 4% Lidocaine Solution #10- R 2ND TOE -Combined with other wound No -Current Size (cm) - Length 2 -Current Size (cm) - Width 1.3 -Current Size (cm) - Depth 0.1 -Total Square Cm 2.6 -Date of Last Picture (Recall this 09/08/20 field) -Photo Taken Yes -Epithelialization None Present -Tunneling No -Undermining/Tunneling No -Circular Undermining No -Exudate Amt Medium -Exudate Type Serosanguineous -Wound Margin Distinct, Outline Attached -Granulation Amt Small (1-33%) -Granulation Quality Red -Slough/Fibrin Yes -Necrosis Amt Large (67-100%) -Necrotic Tissue Type Adherent Slough -Texture (Brandi-wound Skin Appearance) Assessed, Scarring -Moisture (Brandi-wound Skin Appearance) Assessed, Maceration -Color (Brandi-wound Skin Appearance) Assessed,Palor -Temperature (Brandi-wound Skin No Abnormality Appearance) (Pt Warm) -Tenderness on Palpation (Brandi-wound Yes Skin Appearance) -Ulcer Cleansing SOAPY WATER -Foul Odor after Cleansing No -Anesthetic Used 4% Lidocaine Solution #9- L 2ND/3RD TOES -Combined with other wound No -Current Size (cm) - Length 5 -Current Size (cm) - Width 4 -Current Size (cm) - Depth 0.1 -Total Square Cm 20 -Date of Last Picture (Recall this 09/08/20 field) -Photo Taken Yes -Epithelialization None Present -Tunneling No -Undermining/Tunneling No -Circular Undermining No -Exudate Amt Medium -Exudate Type Serosanguineous -Wound Margin Distinct, Outline Attached -Granulation Amt Small (1-33%) -Granulation Quality Pale -Slough/Fibrin Yes -Necrosis Amt Small (1-33%) -Necrotic Tissue Type Adherent Slough -Texture (Brandi-wound Skin Appearance) Assessed, Scarring -Moisture (Brandi-wound Skin Appearance) Assessed, Maceration,Dry/ Scaly -Color (Brandi-wound Skin Appearance) Assessed,Palor -Temperature (Brandi-wound Skin No Abnormality Appearance) (Pt Warm) -Tenderness on Palpation (Brandi-wound Yes Skin Appearance) -Ulcer Cleansing SOAPY WATER -Foul Odor after Cleansing No -Anesthetic Used 4% Lidocaine Solution #8- L LATERAL DORSAL FOOT -Combined with other wound No -Current Size (cm) - Length 2.8 -Current Size (cm) - Width 3 -Current Size (cm) - Depth 0.2 -Total Square Cm 8.4 -Date of Last Picture (Recall this 09/08/20 field) -Photo Taken Yes -Epithelialization None Present -Tunneling No -Undermining/Tunneling No -Circular Undermining No -Exudate Amt Medium -Exudate Type Serosanguineous -Wound Margin Distinct, Outline Attached -Granulation Amt Small (1-33%) -Granulation Quality Pale -Slough/Fibrin Yes -Necrosis Amt Large (67-100%) -Necrotic Tissue Type Adherent Slough -Texture (Brandi-wound Skin Appearance) Assessed, Scarring -Moisture (Brandi-wound Skin Appearance) Assessed,Dry/ Scaly -Color (Brandi-wound Skin Appearance) Assessed -Temperature (Brandi-wound Skin No Abnormality Appearance) (Pt Warm) -Tenderness on Palpation (Brandi-wound Yes Skin Appearance) -Ulcer Cleansing SOAPY WTAER -Foul Odor after Cleansing No -Anesthetic Used 4% Lidocaine Solution Lower Limb Edema Present Yes Right Calf (cm) 40.2 Right Ankle (cm) 30 Left Calf (cm) 43 Left Ankle (cm) 31.3 WC - Nurse 2 - General Ulcer CM Notes Start: 09/08/20 09:04 Freq: Status: Active Protocol: Activity Type Activity Date Activity User E-Sign Co-Sign Detail Recorded Client Recorded Date Recorded By Document 09/08/20 09:57 [facility] [id number] 09/08/20 10:01 [facility] 09/08/20 09:57 Wound Center Nurse 2 #11- R LAT DORSAL FOOT -Time 09:58 -Correct Patient Yes -Correct Side, Site, Position Yes -Correct Procedure Yes -Procedure Performed Yes -Type of Procedure Incision & Drainage -Clinical Debridement Subcutaneous -Tissue Removed Subcutaneous -Post Debridement (cm) - Length 3.1 -Post Debridement (cm) - Width 2.1 -Post Debridement (cm) - Depth 0.1 -Total Square (Post) (cm) 6.51 -Area of Debridement (cm) - Length 3.1 -Area of Debridement (cm) - Width 2.1 -Total Square (Area) (cm) 6.51 -Tunneling No -Undermining/Tunneling No -Circular Undermining No -Wound/Ulcer Outcome Not Healed -Ulcer Cleansing Wound Cleanser -Foul Odor after Cleansing No -Bioengineered Tissue No -Bleeding Controlled with Pressure -Offloading No -Treatment Response Procedure Tolerated Well -Debridement - Subq, 1st 20sq cm No #10- R 2ND TOE -Time 09:58 -Correct Patient Yes -Correct Side, Site, Position Yes -Correct Procedure Yes -Procedure Performed Yes -Type of Procedure Debridement -Clinical Debridement Subcutaneous -Tissue Removed Subcutaneous -Post Debridement (cm) - Length 2 -Post Debridement (cm) - Width 1.4 -Post Debridement (cm) - Depth 0.1 -Total Square (Post) (cm) 2.8 -Area of Debridement (cm) - Length 2 -Area of Debridement (cm) - Width 1.4 -Total Square (Area) (cm) 2.8 -Tunneling No -Undermining/Tunneling No -Circular Undermining No -Wound/Ulcer Outcome Not Healed -Ulcer Cleansing Wound Cleanser -Foul Odor after Cleansing Yes, Due to Product Use -Bioengineered Tissue No -Bleeding Controlled with Pressure -Offloading No -Treatment Response Procedure Tolerated Well -Debridement - Subq, 1st 20sq cm No #9- L 2ND/3RD TOES -Time 09:59 -Correct Patient Yes -Correct Side, Site, Position Yes -Correct Procedure Yes -Procedure Performed Yes -Type of Procedure Debridement -Clinical Debridement Subcutaneous -Tissue Removed Subcutaneous -Post Debridement (cm) - Length 5 -Post Debridement (cm) - Width 4.1 -Post Debridement (cm) - Depth 0.1 -Total Square (Post) (cm) 20.5 -Area of Debridement (cm) - Length 5 -Area of Debridement (cm) - Width 4.1 -Total Square (Area) (cm) 20.5 -Tunneling No -Undermining/Tunneling No -Circular Undermining No -Wound/Ulcer Outcome Not Healed -Ulcer Cleansing Wound Cleanser -Foul Odor after Cleansing No -Bioengineered Tissue No -Bleeding Controlled with Pressure -Type of Offloading Total Contact Cast (TCC) - Left ($) -Treatment Response Procedure Tolerated Well -Debridement - Subq, 1st 20sq cm Yes -Debridement, SubQ, ea addt'l 20sq cm 1 or part thereof #8- L LATERAL DORSAL FOOT -Time 10:00 -Correct Patient Yes -Correct Side, Site, Position Yes -Correct Procedure Yes -Procedure Performed Yes -Type of Procedure Debridement -Clinical Debridement Subcutaneous -Tissue Removed Subcutaneous -Post Debridement (cm) - Length 2.8 -Post Debridement (cm) - Width 3 -Post Debridement (cm) - Depth 0.2 -Total Square (Post) (cm) 8.4 -Area of Debridement (cm) - Length 2.8 -Area of Debridement (cm) - Width 3 -Total Square (Area) (cm) 8.4 -Tunneling No -Undermining/Tunneling No -Circular Undermining No -Wound/Ulcer Outcome Not Healed -Ulcer Cleansing Rinsed/ Irrigated with Saline -Foul Odor after Cleansing No -Bioengineered Tissue No -Bleeding Controlled with Pressure -Offloading No -Treatment Response Procedure Not Tolerated Well -Debridement - Subq, 1st 20sq cm No Pain Scale: 0-10 Numeric Is Patient Pain Free? Yes WC - Nurse 3 - General Ulcer D/C NN Start: 09/08/20 09:04 Freq: Status: Active Protocol: Activity Type Activity Date Activity User E-Sign Co-Sign Detail Recorded Client Recorded Date Recorded By Document 09/08/20 10:05 [facility] [id number] 09/08/20 10:07 [facility] Document 09/15/20 11:44 DL [id number] 09/15/20 11:48 DL 09/08/20 09/15/20 10:05 11:44 Wound Care Nurse 3 #11- R LAT DORSAL FOOT -Ulcer Cleansing Rinsed/ Wound Cleanser Irrigated with Saline -Foul Odor after Cleansing No No -Primary Dressing Applied Other -Other Dressing MOIST TO DRY Surgifoam -Primary Dressing Covered/Secured with Dry Gauze & Dry Gauze & Roll Gauze, Roll Gauze, Secured with Secured with Tape Tape -Other Covering Mikayla, tubigrip #10- R 2ND TOE -Ulcer Cleansing Wound Cleanser -Foul Odor after Cleansing No -Primary Dressing Applied Other -Other Dressing MOIST TO DRY moist gauze -Primary Dressing Covered/Secured with Dry Gauze & Dry Gauze & Roll Gauze Roll Gauze, Secured with Tape #9- L 2ND/3RD TOES -Ulcer Cleansing Wound Cleanser -Foul Odor after Cleansing No -Primary Dressing Applied Other -Other Dressing MOIST TO DRY moist gauze -Primary Dressing Covered/Secured with Dry Gauze & Dry Gauze & Roll Gauze, Roll Gauze, Secured with Secured with Tape Tape #8- L LATERAL DORSAL FOOT -Ulcer Cleansing Wound Cleanser -Foul Odor after Cleansing No -Primary Dressing Applied Other -Other Dressing MOIST TO DRY moist gauze -Primary Dressing Covered/Secured with Dry Gauze & Dry Gauze & Roll Gauze, Roll Gauze, Secured with Secured with Tape Tape Right -Tubular Bandage Single Layer Single Layer -Size of Tubigrip Used Size E Size D -Size D ($) 1 -Size E ($) 1 Left -Tubular Bandage Single Layer Single Layer -Size of Tubigrip Used Size E Size D -Size D ($) 1 -Size E ($) 1 Treatment Response Procedure Procedure Tolerated Well Tolerated Well Pain Scale: 0-10 Numeric Is Patient Pain Free? Yes Yes WC - Visit Discharge Discharge Condition Stable Stable Ambulatory Status Ambulatory, Ambulatory Walker Transportation Private [facility] Notes: R dorsal foot drsg to be left in place for week D/T bleeding. resume dakins to all other ulcers. Orders Sent Yes Assessment/Plan Assessment/Plan (1) Tinea pedis: CODE(S): B35.3 - Tinea pedis (2) Colonization status: CODE(S): Z22.9 - Carrier of infectious disease, unspecified (3) Maceration of skin: CODE(S): L98.8 - Other specified disorders of the skin and subcutaneous tissue (4) Deep venous thrombosis of distal end of left lower extremity: CODE(S): I82.4Z2 - Acute embolism and thrombosis of unspecified deep veins of left distal lower extremity QUALIFIERS: Chronicity: acute Qualified Code(s): I82.4Z2 - Acute embolism and thrombosis of unspecified deep veins of left distal lower extremity (5) Edema of left lower leg: CODE(S): R60.0 - Localized edema (6) Ulcer of right foot with fat layer exposed: CODE(S): L97.512 - Non-pressure chronic ulcer of other part of right foot with fat layer exposed (7) Ulcer of left foot with fat layer exposed: CODE(S): L97.522 - Non-pressure chronic ulcer of other part of left foot with fat layer exposed PLAN: I reviewed and discussed his case today. He defers debridement today. The primary focuses to control his bleeding issue and follow-up on his bacterial contamination and infection status. The following work up and care recommendations were made: Dressing: Daily with Dakin wet-to-dry gauze to the dorsal left foot and interdigital spaces bilateral. Gelfoam was applied to the dorsal right foot covered with gauze and he was advised to keep this clean and intact until follow-up next week. Pressure via compression dressing was applied for 20 minutes and upon reassessment there is no active bleeding noted. This episode was consistent with varicosities to the dorsal foot and calcified smaller vessels which may contributed to higher pressure flow at this anatomic level. Wash: Antibacterial soap and water Tissue growth optimization: This will be considered in the future if there is lack of anticipated progress Offload: Open toed sneakers in which she already cut that dorsal fabric away Vascular: Previously reviewed and no intervention was recommended Edema: Bilateral Tubigrip's. He was previously diagnosed with venous insufficiency Infection: MRSA and Pseudomonas bacteria was identified in his culture. He is on antibiotics that will cover this bacteria. To complete course. His labs were also previously reviewed and are on file. He was reassured no purulence or erythema are noted. Hygiene is very important to prevent further infection progression and if needed on a daily basis. He reports he takes a shower and bathes twice a week and this is not enough given his hygiene and infection issues. Pain: Well controlled today Host factors: He was advised on smoking cessation and how this will delay wound healing. The medical decision making level is moderate. There is noted moderate risk of morbidity after considering this treatment plan and diagnostic data. Considerations were given to prescription management, decisions regarding surgical options, or social determinants of health. The problems addressed require a moderate decision making level which includes one or more chronic illnesses (w/ exacerbation, progression, or side effects), two or more stable chronic illnesses, one undiagnosed new problem w/ uncertain prognosis, one acute illness with systemic symptoms, or one acute complicated injury. The medical decision making level is moderate based on data including at least three of the following: review of prior external notes, review of a test, ordering a test, assessment requiring an independent historian. I answered all the patient's questions. To return to the wound healing center in 1 week or call sooner if the patient has any questions or concerns. 39 minutes was spent on this encounter. This included face to face and non face to face care including preparing for the visit, reviewing the history, performing the exam, counseling and providing education to the patient, family, or caregiver, ordering medications/test/ procedures if indicated as documented, communicating with other healthcare providers, documenting information in the medical record, interpreting / sharing this information when indicated as documented, and care coordination.
[2020-09-22 13:07] VITALS: BP 120/65; PULSE 69; RESP 18; TEMP 36.6; BMI 31.8
--- NOTE | 2020-09-22 14:46 | PN.PCM_ITS ---
History of Present Illness Date of Service: 09/22/20 Chief Complaint: Left and right foot maceration and dorsal foot ulcers History of Wound: This 60-year-old male with significant past medical history of bipolar disorder presents complaining of a left and right foot returned foot moisture and skin ulcer with onset of 3-4 weeks ago. He denies fever, chill, nausea. He denies redness or known odor. He resides at [facility] and continues to smoke each day. He was using Dakin wet-to-dry dressings. He continues to smoke. He has been more persistent with leg elevation. He kept his right foot dressing and Gelfoam intact since his last visit. Progress of Wound: Improving No active bleeding noted today Objective Data Objective Data Vital Signs: Vital Signs Temp Pulse Resp BP 98 F 69 18 120/65 09/22/20 13:07 09/22/20 13:07 09/22/20 13:07 09/22/20 13:07 Oxygen Delivery Method Room Air Body Mass Index (BMI) 31.8 Lab / Micro Data Micro: Microbiology 09/08/20 09:45 Tissue - Other Gram Stain - Final 09/08/20 09:45 Tissue - Other Wound Culture - Final Meth. resistant Staph. aureus Pseudomonas aeroginosa Providencia rettgeri 09/08/20 09:45 Tissue - Other Anaerobic Culture - Final Anaerobic cocci Prevotella bivia Actinomyces neuii Physical Exam Const alert and oriented x3 General Appearance: cooperative HEENT normocephalic Extremity Extremity Narrative: No calf tenderness Diminished pulses Muscle wasting noted Edema bilateral lower extremities moderate with varicosities and some hyperpigmentation including the foot and legs General Extremity: edema and no tenderness to palpation of joints or extremities; Negative for cyanosis Skin Skin Narrative: no purulence, no streaking, no odor, no infection. Skin discontinuity right foot at the dorsal aspect and interdigital. Skin discontinuity left foot dorsal aspect and to all interdigital spaces with skin peeling, maceration. The ulcer beds are granular tissue increased and decreased fibrous tissue without deep tissue exposure or necrosis or eschar. Reduced maceration. No active bleeding noted. General Skin Exam: Negative for erythema Neuro Neuro Narrative: lack of normal epicritic sensation via light touch is consistent with neuropathy status Psych cooperative and affect normal Debridement Note Debridement Note Post-Debridement Measurements and Additional Note: Post-Debridement Measurements/Treatment WC - Nurse 1 - General Ulcer Assessment Start: 09/08/20 09:04 Freq: Status: Active Protocol: DORA Activity Type Activity Date Activity User E-Sign Co-Sign Detail Recorded Client Recorded Date Recorded By Document 09/08/20 09:09 [facility] [id number] 09/08/20 09:26 BM Document 09/15/20 09:01 RB [id number] 09/15/20 09:19 RB Document 09/15/20 09:22 RB [id number] 09/15/20 09:22 RB Document 09/22/20 13:07 MT Desktop 09/22/20 13:21 MT 09/08/20 09/15/20 09/15/20 09:09 09:01 09:22 - Today's Visit Information Type of service Initial Visit Follow-up Visit (Physician/TERRAZZO LAYER HELPER ) Arrival Mode Ambulatory Ambulatory, Walker Transfer Assistance None None Accompanied by Patient Identification Verified (Name & Yes Yes ) Patient Requires Transmission-Based No No Precautions Height and Weight Body Mass Index (BMI) 31.8 31.8 31.8 BMI Classification Obese Obese Obese Vital Signs Temperature (97.8 F-99.1 F) 98.5 F 98 F Temperature Source Temporal Temporal Pulse Rate (60-100) 86 77 73 Pulse Location Monitor Monitor Monitor Respiratory Rate (12-18) 16 18 Respiratory rate source Observation Observation Oxygen Delivery Method Room Air Blood Pressure (90/60-120/80) 128/70 H 137/71 H 140/75 H Blood Pressure Mean (mm Hg) 89 93 96 Source Monitor Monitor Monitor Position Sitting Semi-Fowlers Semi-Fowlers Blood Pressure Location Left Arm Left Arm Left Arm Have you changed medications since your No last visit? Any new allergies or adverse reactions No Had a fall/change in ADL's that may No increase risk of falls Signs or symptoms of abuse and/or No neglect since last visit Have you been in the hospital since your No last visit? Has dressing in place as prescribed Yes Has compression in place as prescribed No Has offloadiing in place as prescribed No Experienced any changes in pain level or No management History Since Last Visit- (Skip if this is Patient's initial visit) Left Footwear Regular Shoe Right Footwear Regular Shoe Pain Scale: 0-10 Numeric Is Patient Pain Free? Yes Yes 09/22/20 13:07 - Today's Visit Information Type of service Follow-up Visit (Physician/TERRAZZO LAYER HELPER ) Arrival Mode Transfer Assistance Accompanied by self Patient Identification Verified (Name & Yes ) Patient Requires Transmission-Based Precautions Height and Weight Body Mass Index (BMI) 31.8 BMI Classification Obese Vital Signs Temperature (97.8 F-99.1 F) 98 F Temperature Source Temporal Pulse Rate (60-100) 69 Pulse Location Monitor Respiratory Rate (12-18) 18 Respiratory rate source Observation Oxygen Delivery Method Room Air Blood Pressure (90/60-120/80) 120/65 Blood Pressure Mean (mm Hg) 83 Source Monitor Position Sitting Blood Pressure Location Left Arm Have you changed medications since your last visit? Any new allergies or adverse reactions Had a fall/change in ADL's that may increase risk of falls Signs or symptoms of abuse and/or neglect since last visit Have you been in the hospital since your last visit? Has dressing in place as prescribed Yes Has compression in place as prescribed Yes Has offloadiing in place as prescribed Yes Experienced any changes in pain level or Yes management History Since Last Visit- (Skip if this is Patient's initial visit) Left Footwear Right Footwear Pain Scale: 0-10 Numeric Is Patient Pain Free? - Nurse 1 - General Ulcer Measurement Start: 09/08/20 09:04 Freq: Status: Active Protocol: Activity Type Activity Date Activity User E-Sign Co-Sign Detail Recorded Client Recorded Date Recorded By Document 09/08/20 09:09 [facility] [id number] 09/08/20 09:26 [facility] Document 09/22/20 13:07 LA Desktop 09/22/20 13:21 LA 09/08/20 09/22/20 09:09 13:07 Wound Center Nurse 1 #11- R LAT DORSAL FOOT -Combined with other wound No -Current Size (cm) - Length 3 0.5 -Current Size (cm) - Width 2 0.5 -Current Size (cm) - Depth 0.1 0.1 -Total Square Cm 6 0.25 -Date of Last Picture (Recall this 09/08/20 field) -Photo Taken Yes -Epithelialization None Present -Tunneling No -Undermining/Tunneling No -Circular Undermining No -Exudate Amt Medium Small -Exudate Type Serosanguineous Serosanguineous -Wound Margin Distinct, Flat & Intact Outline Attached -Granulation Amt Small (1-33%) Small (1-33%) -Granulation Quality Red Pale,Cosmos -Slough/Fibrin Yes -Necrosis Amt Large (67-100%) Large (67-100%) -Necrotic Tissue Type Adherent Slough Adherent Slough -Texture (Brandi-wound Skin Appearance) Assessed, Assessed Scarring -Moisture (Brandi-wound Skin Appearance) Assessed,Dry/ Assessed Scaly -Color (Brandi-wound Skin Appearance) Assessed Assessed -Temperature (Brandi-wound Skin No Abnormality No Abnormality Appearance) (Pt Warm) (Pt Warm) -Tenderness on Palpation (Brandi-wound Yes No Skin Appearance) -Ulcer Cleansing SOAPY WATER Wound Cleanser -Foul Odor after Cleansing No No -Anesthetic Used 4% Lidocaine 4% Lidocaine Solution Solution #10- R 2ND TOE -Combined with other wound No -Current Size (cm) - Length 2 0.1 -Current Size (cm) - Width 1.3 0.1 -Current Size (cm) - Depth 0.1 0.1 -Total Square Cm 2.6 0.01 -Date of Last Picture (Recall this 09/08/20 field) -Photo Taken Yes -Epithelialization None Present Large 67-100% -Tunneling No -Undermining/Tunneling No -Circular Undermining No -Exudate Amt Medium Small -Exudate Type Serosanguineous Serosanguineous -Wound Margin Distinct, Flat & Intact Outline Attached -Granulation Amt Small (1-33%) Large (67-100%) -Granulation Quality Red Pale,Cosmos -Slough/Fibrin Yes -Necrosis Amt Large (67-100%) Small (1-33%) -Necrotic Tissue Type Adherent Slough Adherent Slough -Texture (Brandi-wound Skin Appearance) Assessed, Assessed Scarring -Moisture (Brandi-wound Skin Appearance) Assessed, Assessed, Maceration Maceration -Color (Brandi-wound Skin Appearance) Assessed,Palor Assessed, Erythema, Hemosiderin Staining -Temperature (Brandi-wound Skin No Abnormality No Abnormality Appearance) (Pt Warm) (Pt Warm) -Tenderness on Palpation (Brandi-wound Yes No Skin Appearance) -Ulcer Cleansing SOAPY WATER Wound Cleanser -Foul Odor after Cleansing No No -Anesthetic Used 4% Lidocaine 4% Lidocaine Solution Solution #9- L 2ND/3RD TOES -Combined with other wound No -Current Size (cm) - Length 5 1.5 -Current Size (cm) - Width 4 2.0 -Current Size (cm) - Depth 0.1 0.1 -Total Square Cm 20 3.00 -Date of Last Picture (Recall this 09/08/20 field) -Photo Taken Yes -Epithelialization None Present -Tunneling No -Undermining/Tunneling No -Circular Undermining No -Exudate Amt Medium Small -Exudate Type Serosanguineous Serosanguineous -Wound Margin Distinct, Flat & Intact Outline Attached -Granulation Amt Small (1-33%) Small (1-33%) -Granulation Quality Pale Pale,Cosmos -Slough/Fibrin Yes -Necrosis Amt Small (1-33%) Large (67-100%) -Necrotic Tissue Type Adherent Slough Adherent Slough -Texture (Brandi-wound Skin Appearance) Assessed, Assessed Scarring -Moisture (Brandi-wound Skin Appearance) Assessed, Assessed, Maceration,Dry/ Maceration Scaly -Color (Brandi-wound Skin Appearance) Assessed,Palor Assessed -Temperature (Brandi-wound Skin No Abnormality No Abnormality Appearance) (Pt Warm) (Pt Warm) -Tenderness on Palpation (Brandi-wound Yes No Skin Appearance) -Ulcer Cleansing SOAPY WATER Rinsed/ Irrigated with Saline -Foul Odor after Cleansing No No -Anesthetic Used 4% Lidocaine 4% Lidocaine Solution Solution #8- L LATERAL DORSAL FOOT -Combined with other wound No -Current Size (cm) - Length 2.8 5 -Current Size (cm) - Width 3 2 -Current Size (cm) - Depth 0.2 0.1 -Total Square Cm 8.4 10 -Date of Last Picture (Recall this 09/08/20 field) -Photo Taken Yes -Epithelialization None Present -Tunneling No -Undermining/Tunneling No -Circular Undermining No -Exudate Amt Medium Small -Exudate Type Serosanguineous Serosanguineous -Wound Margin Distinct, Flat & Intact Outline Attached -Granulation Amt Small (1-33%) Small (1-33%) -Granulation Quality Pale Pale,Cosmos -Slough/Fibrin Yes -Necrosis Amt Large (67-100%) Large (67-100%) -Necrotic Tissue Type Adherent Slough Adherent Slough -Texture (Brandi-wound Skin Appearance) Assessed, Assessed Scarring -Moisture (Brandi-wound Skin Appearance) Assessed,Dry/ Assessed, Scaly Maceration -Color (Brandi-wound Skin Appearance) Assessed Assessed, Erythema, Hemosiderin Staining -Temperature (Brandi-wound Skin No Abnormality No Abnormality Appearance) (Pt Warm) (Pt Warm) -Tenderness on Palpation (Brandi-wound Yes No Skin Appearance) -Ulcer Cleansing SOAPY WTAER Wound Cleanser -Foul Odor after Cleansing No No -Anesthetic Used 4% Lidocaine 4% Lidocaine Solution Solution Lower Limb Edema Present Yes Yes Right Calf (cm) 40.2 40.2 Right Ankle (cm) 30 30 Left Calf (cm) 43 43 Left Ankle (cm) 31.3 31.3 WC - Nurse 2 - General Ulcer CM Notes Start: 09/08/20 09:04 Freq: Status: Active Protocol: Activity Type Activity Date Activity User E-Sign Co-Sign Detail Recorded Client Recorded Date Recorded By Document 09/08/20 09:57 [id number] 09/08/20 10:01 Document 09/22/20 13:34 [id number] 09/22/20 13:40 09/08/20 09/22/20 09:57 13:34 Wound Center Nurse 2 #11- R LAT DORSAL FOOT -Time 09:58 13:35 -Correct Patient Yes Yes -Correct Side, Site, Position Yes Yes -Correct Procedure Yes Yes -Procedure Performed Yes Yes -Type of Procedure Incision & Debridement Drainage -Clinical Debridement Subcutaneous Subcutaneous -Tissue Removed Subcutaneous Dermis -Post Debridement (cm) - Length 3.1 0.6 -Post Debridement (cm) - Width 2.1 0.6 -Post Debridement (cm) - Depth 0.1 0.1 -Total Square (Post) (cm) 6.51 0.36 -Area of Debridement (cm) - Length 3.1 0.6 -Area of Debridement (cm) - Width 2.1 0.6 -Total Square (Area) (cm) 6.51 0.36 -Tunneling No No -Undermining/Tunneling No No -Circular Undermining No No -Wound/Ulcer Outcome Not Healed Not Healed -Ulcer Cleansing Wound Cleanser Rinsed/ Irrigated with Saline -Foul Odor after Cleansing No No -Bioengineered Tissue No No -Bleeding Controlled with Pressure Pressure -Offloading No No -Treatment Response Procedure Procedure Tolerated Well Tolerated Well -Debridement - Subq, 1st 20sq cm No Yes #10- R 2ND TOE -Time 09:58 13:36 -Correct Patient Yes Yes -Correct Side, Site, Position Yes Yes -Correct Procedure Yes Yes -Procedure Performed Yes Yes -Type of Procedure Debridement Debridement -Clinical Debridement Subcutaneous Subcutaneous -Tissue Removed Subcutaneous Subcutaneous -Post Debridement (cm) - Length 2 0.2 -Post Debridement (cm) - Width 1.4 0.2 -Post Debridement (cm) - Depth 0.1 0.1 -Total Square (Post) (cm) 2.8 0.04 -Area of Debridement (cm) - Length 2 0.2 -Area of Debridement (cm) - Width 1.4 0.2 -Total Square (Area) (cm) 2.8 0.04 -Tunneling No No -Undermining/Tunneling No No -Circular Undermining No No -Wound/Ulcer Outcome Not Healed Not Healed -Ulcer Cleansing Wound Cleanser Rinsed/ Irrigated with Saline -Foul Odor after Cleansing Yes, Due to No Product Use -Bioengineered Tissue No No -Bleeding Controlled with Pressure Pressure -Offloading No No -Treatment Response Procedure Procedure Tolerated Well Tolerated Well -Debridement - Subq, 1st 20sq cm No No #9- L 2ND/3RD TOES -Time 09:59 13:36 -Correct Patient Yes Yes -Correct Side, Site, Position Yes Yes -Correct Procedure Yes Yes -Procedure Performed Yes Yes -Type of Procedure Debridement Debridement -Clinical Debridement Subcutaneous Subcutaneous -Tissue Removed Subcutaneous Subcutaneous -Post Debridement (cm) - Length 5 1.6 -Post Debridement (cm) - Width 4.1 2.1 -Post Debridement (cm) - Depth 0.1 0.1 -Total Square (Post) (cm) 20.5 3.36 -Area of Debridement (cm) - Length 5 1.6 -Area of Debridement (cm) - Width 4.1 2.1 -Total Square (Area) (cm) 20.5 3.36 -Tunneling No No -Undermining/Tunneling No No -Circular Undermining No No -Wound/Ulcer Outcome Not Healed Not Healed -Ulcer Cleansing Wound Cleanser Rinsed/ Irrigated with Saline -Foul Odor after Cleansing No No -Bioengineered Tissue No No -Bleeding Controlled with Pressure Pressure -Offloading No -Type of Offloading Total Contact Cast (TCC) - Left ($) -Treatment Response Procedure Procedure Tolerated Well Tolerated Well -Debridement - Subq, 1st 20sq cm Yes No -Debridement, SubQ, ea addt'l 20sq cm 1 or part thereof #8- L LATERAL DORSAL FOOT -Time 10:00 13:36 -Correct Patient Yes Yes -Correct Side, Site, Position Yes Yes -Correct Procedure Yes Yes -Procedure Performed Yes Yes -Type of Procedure Debridement Debridement -Clinical Debridement Subcutaneous Subcutaneous -Tissue Removed Subcutaneous Subcutaneous -Post Debridement (cm) - Length 2.8 5.1 -Post Debridement (cm) - Width 3 2.1 -Post Debridement (cm) - Depth 0.2 0.1 -Total Square (Post) (cm) 8.4 10.71 -Area of Debridement (cm) - Length 2.8 5.1 -Area of Debridement (cm) - Width 3 2.1 -Total Square (Area) (cm) 8.4 10.71 -Tunneling No No -Undermining/Tunneling No No -Circular Undermining No No -Wound/Ulcer Outcome Not Healed Not Healed -Ulcer Cleansing Rinsed/ Rinsed/ Irrigated with Irrigated with Saline Saline -Foul Odor after Cleansing No No -Bioengineered Tissue No No -Bleeding Controlled with Pressure Pressure -Offloading No No -Treatment Response Procedure Not Procedure Tolerated Well Tolerated Well -Debridement - Subq, 1st 20sq cm No No Pain Scale: 0-10 Numeric Is Patient Pain Free? Yes Yes WC - Nurse 3 - General Ulcer D/C NN Start: 09/08/20 09:04 Freq: Status: Active Protocol: Activity Type Activity Date Activity User E-Sign Co-Sign Detail Recorded Client Recorded Date Recorded By Document 09/08/20 10:05 [facility] [id number] 09/08/20 10:07 [facility] Document 09/15/20 11:44 DL [id number] 09/15/20 11:48 DL Document 09/22/20 13:46 [facility] Desktop 09/22/20 13:49 [facility] 09/08/20 09/15/20 09/22/20 10:05 11:44 13:46 Wound Care Nurse 3 #11- R LAT DORSAL FOOT -Ulcer Cleansing Rinsed/ Wound Cleanser Rinsed/ Irrigated with Irrigated with Saline Saline -Foul Odor after Cleansing No No No -Primary Dressing Applied Other Other -Other Dressing MOIST TO DRY Surgifoam moist to dry -Primary Dressing Covered/Secured with Dry Gauze & Dry Gauze & Dry Gauze & Roll Gauze, Roll Gauze, Roll Gauze, Secured with Secured with Secured with Tape Tape Tape -Other Covering Mikayla, tubigrip drsgs per dl yoker machine operator #10- R 2ND TOE -Ulcer Cleansing Wound Cleanser Rinsed/ Irrigated with Saline -Foul Odor after Cleansing No No -Primary Dressing Applied Other Other -Other Dressing MOIST TO DRY moist gauze moist to dry by dl yoker machine operator -Primary Dressing Covered/Secured with Dry Gauze & Dry Gauze & Dry Gauze & Roll Gauze Roll Gauze, Roll Gauze, Secured with Secured with Tape Tape #9- L 2ND/3RD TOES -Ulcer Cleansing Wound Cleanser Rinsed/ Irrigated with Saline -Foul Odor after Cleansing No No -Primary Dressing Applied Other -Other Dressing MOIST TO DRY moist gauze moist to dry by dl yoker machine operator -Primary Dressing Covered/Secured with Dry Gauze & Dry Gauze & Dry Gauze & Roll Gauze, Roll Gauze, Roll Gauze, Secured with Secured with Secured with Tape Tape Tape #8- L LATERAL DORSAL FOOT -Ulcer Cleansing Wound Cleanser Rinsed/ Irrigated with Saline -Foul Odor after Cleansing No No -Primary Dressing Applied Other Other -Other Dressing MOIST TO DRY moist gauze moist to dry by dl yoker machine operator -Primary Dressing Covered/Secured with Dry Gauze & Dry Gauze & Dry Gauze & Roll Gauze, Roll Gauze, Roll Gauze, Secured with Secured with Secured with Tape Tape Tape Right -Tubular Bandage Single Layer Single Layer Single Layer -Size of Tubigrip Used Size E Size D Size D -Size D ($) 1 1 -Size E ($) 1 Left -Tubular Bandage Single Layer Single Layer Single Layer -Size of Tubigrip Used Size E Size D Size D -Size D ($) 1 1 -Size E ($) 1 Treatment Response Procedure Procedure Tolerated Well Tolerated Well Pain Scale: 0-10 Numeric Is Patient Pain Free? Yes Yes Yes WC - Visit Discharge Discharge Condition Stable Stable Stable Ambulatory Status Ambulatory, Ambulatory Ambulatory, Walker Walker Transportation Private Auto Private Auto Accompanied by mom in [facility] Facility Type Furniture Inspector Care Facility Other [facility] Notes: R dorsal foot drsg to be left in place for week D/T bleeding. resume dakins to all other ulcers. Orders Sent Yes Wound debrided: bilateral dorsal foot Wound Grade/Stage: 1 Type of Debridement: Excisional debridement Anesthesia Used: 4% Lidocaine Solution Depth: in the subcutaneous layer Percentage of wound debrided: 100 Instrument Used: #15 blade Tissue Removed: fibrous, devitalized subcutaneous, biofilm, slough Severity: Fat Layer Exposed Amount of bleeding with debridement: Mild Bleeding Controlled with: Pressure Patient tolerated procedure: Patient tolerated procedure well Assessment/Plan Assessment/Plan (1) Tinea pedis: CODE(S): B35.3 - Tinea pedis (2) Colonization status: CODE(S): Z22.9 - Carrier of infectious disease, unspecified (3) Maceration of skin: CODE(S): L98.8 - Other specified disorders of the skin and subcutaneous tissue (4) Deep venous thrombosis of distal end of left lower extremity: CODE(S): I82.4Z2 - Acute embolism and thrombosis of unspecified deep veins of left distal lower extremity QUALIFIERS: Chronicity: acute Qualified Code(s): I82.4Z2 - Acute embolism and thrombosis of unspecified deep veins of left distal lower extremity (5) Edema of left lower leg: CODE(S): R60.0 - Localized edema (6) Ulcer of right foot with fat layer exposed: CODE(S): L97.512 - Non-pressure chronic ulcer of other part of right foot with fat layer exposed (7) Ulcer of left foot with fat layer exposed: CODE(S): L97.522 - Non-pressure chronic ulcer of other part of left foot with fat layer exposed PLAN: I reviewed and discussed his case today. He defers debridement today. On the primary focuses to control his bleeding issue and follow-up on his bacterial contamination and infection status. The following work up and care recommendations were made: Dressing: Daily with Dakin wet-to-dry gauze to the dorsal left foot and interdigital spaces bilateral. Wash: Antibacterial soap and water Tissue growth optimization: This will be considered in the future if there is lack of anticipated progress Offload: Open toed sneakers in which she already cut that dorsal fabric away Vascular: Previously reviewed and no intervention was recommended Edema: Bilateral Tubigrip's. He was previously diagnosed with venous insufficiency Infection: MRSA and Pseudomonas bacteria was identified in his culture. He is on antibiotics that will cover this bacteria. To complete course. His labs were also previously reviewed and are on file. He was reassured no purulence or erythema are noted. Hygiene is very important to prevent further infection progression and if needed on a daily basis. He reports he takes a shower and bathes twice a week and this is not enough given his hygiene and infection issues. Pain: Well controlled today Host factors: He was advised on smoking cessation and how this will delay wound healing. There was no active bleeding today and Gelfoam is no longer needed. I answered all the patient's questions. To return to the wound healing center in 2 weeks or call sooner if the patient has any questions or concerns.
== END 2020-10-02 23:59 ==
LOC: WC 13:00
PROVIDERS: PCP Nurse Practitioner Adult Health; Visit Provider Podiatrist
DX: I83.015 Varicose veins of right lower extremity with ulcer other part of foot (principal); I83.025 Varicose veins of left lower extremity with ulcer other part of foot; L97.512 Non-pressure chronic ulcer of other part of right foot with fat layer exposed; L97.522 Non-pressure chronic ulcer of other part of left foot with fat layer exposed; B35.3 Tinea pedis; R60.0 Localized edema; Z22.9 Carrier of infectious disease, unspecified; Z86.718 Personal history of other venous thrombosis and embolism; F17.200 Nicotine dependence, unspecified, uncomplicated
CPT/HCPCS: 11042; 11045; 29445; 87015; 87070; 87075; 87077; 87116; 87186; 87205; 87206; 87640; 99213; G0463

== ENCOUNTER 2020-10-06 09:56 | Outpatient (RCR) | payer MEDICARE, MEDICAID, SELFPAY ==
[2020-10-03 00:36] VITALS: BP 120/65; PULSE 69; RESP 18; TEMP 36.6
[2020-10-06 09:57] VITALS: BP 131/74; PULSE 81; TEMP 36.3; BMI 31.8
--- NOTE | 2020-10-06 10:29 | PN.PCM_ITS ---
History of Present Illness Date of Service: 10/06/20 Chief Complaint: Left and right foot maceration and dorsal foot ulcers History of Wound: This 60-year-old male with significant past medical history of bipolar disorder presents complaining of a left and right foot previous foot moisture and skin ulcers. He denies fever, chill, nausea, vomiting. He denies odor or drainage. He has discontinue dressing care and relates both feet are healed. He also completed a course of antibiotics. Progress of Wound: bilateral healed Objective Data Objective Data Vital Signs: Vital Signs Temp Pulse Resp BP 97.4 F L 81 18 131/74 H 10/06/20 09:57 10/06/20 09:57 10/03/20 00:36 10/06/20 09:57 Body Mass Index (BMI) 31.8 Physical Exam Const alert and oriented x3 General Appearance: cooperative HEENT normocephalic Extremity Extremity Narrative: No calf tenderness Diminished pulses Muscle wasting noted Edema bilateral lower extremities moderate with varicosities and some hyperpigmentation including the foot and legs General Extremity: edema and no tenderness to palpation of joints or extremities; Negative for cyanosis Skin Skin Narrative: no purulence, no streaking, no odor, no infection. No maceration. There is no drainage. There is dried although and light brown eschar to the dorsal bilateral foot; refuses debridement. These appear healed today with epithelialization General Skin Exam: Negative for erythema Neuro Neuro Narrative: lack of normal epicritic sensation via light touch is consistent with neuropathy status Psych cooperative and affect normal Debridement Note Debridement Note Post-Debridement Measurements and Additional Note: Post-Debridement Measurements/Treatment - Nurse 1 - General Ulcer Assessment Start: 10/06/20 09:57 Freq: Status: Active Protocol: RA.JODI Activity Type Activity Date Activity User E-Sign Co-Sign Detail Recorded Client Recorded Date Recorded By Document 10/06/20 09:57 Desktop 10/06/20 10:09 KR 10/06/20 09:57 - Today's Visit Information Type of service Follow-up Visit (Physician/[employer] ) Patient Identification Verified (Name & Yes ) Height and Weight Body Mass Index (BMI) 31.8 BMI Classification Obese Vital Signs Temperature (97.8 F-99.1 F) 97.4 F L Temperature Source Temporal Pulse Rate (60-100) 81 Pulse Location Monitor Blood Pressure (90/60-120/80) 131/74 H Blood Pressure Mean (mm Hg) 93 Source Monitor Position Sitting Blood Pressure Location Left Arm History Since Last Visit- (Skip if this is Patient's initial visit) Have you changed medications since your No last visit? Any new allergies or adverse reactions No Had a fall/change in ADL's that may No increase risk of falls Signs or symptoms of abuse and/or No neglect since last visit Have you been in the hospital since your No last visit? Has dressing in place as prescribed Yes Has compression in place as prescribed Yes Has offloadiing in place as prescribed N/A Experienced any changes in pain level or No management Left Footwear Regular Shoe Right Footwear Regular Shoe Pain Scale: 0-10 Numeric Is Patient Pain Free? Yes WC - Nurse 1 - General Ulcer Measurement Start: 10/06/20 09:57 Freq: Status: Active Protocol: Activity Type Activity Date Activity User E-Sign Co-Sign Detail Recorded Client Recorded Date Recorded By Document 10/06/20 09:57 KR Desktop 10/06/20 10:09 KR 10/06/20 09:57 Wound Center Nurse 1 #11- R LAT DORSAL FOOT -Current Size (cm) - Length 2 -Current Size (cm) - Width 3 -Current Size (cm) - Depth 0.1 -Total Square Cm 6 -Exudate Amt None Present -Wound Margin Distinct, Outline Attached -Granulation Amt None Present (0 %) -Necrosis Amt None Present (0 %) -Texture (Brandi-wound Skin Appearance) Assessed, Scarring -Moisture (Brandi-wound Skin Appearance) Assessed -Color (Brandi-wound Skin Appearance) No Abnormality, Assessed -Temperature (Brandi-wound Skin No Abnormality Appearance) (Pt Warm) -Tenderness on Palpation (Brandi-wound No Skin Appearance) -Ulcer Cleansing Rinsed/ Irrigated with Saline -Foul Odor after Cleansing No -Anesthetic Used 4% Lidocaine Solution #10- R 2ND TOE -Current Size (cm) - Length 3 -Current Size (cm) - Width 0.5 -Current Size (cm) - Depth 1 -Total Square Cm 1.5 -Exudate Amt None Present -Wound Margin Distinct, Outline Attached -Granulation Amt None Present (0 %) -Necrosis Amt None Present (0 %) -Texture (Brandi-wound Skin Appearance) Assessed, Scarring -Moisture (Brandi-wound Skin Appearance) No Abnormality, Assessed -Color (Brandi-wound Skin Appearance) No Abnormality, Assessed -Temperature (Brandi-wound Skin No Abnormality Appearance) (Pt Warm) -Tenderness on Palpation (Brandi-wound No Skin Appearance) -Ulcer Cleansing Rinsed/ Irrigated with Saline -Foul Odor after Cleansing No -Anesthetic Used 4% Lidocaine Solution #9- L 2ND/3RD TOES -Current Size (cm) - Length 1 -Current Size (cm) - Width 0.2 -Current Size (cm) - Depth 0.1 -Total Square Cm 0.2 -Exudate Amt Small -Wound Margin Distinct, Outline Attached -Granulation Amt None Present (0 %) -Necrosis Amt None Present (0 %) -Texture (Brandi-wound Skin Appearance) Assessed, Scarring -Moisture (Brandi-wound Skin Appearance) No Abnormality, Assessed -Color (Brandi-wound Skin Appearance) No Abnormality, Assessed -Temperature (Brandi-wound Skin No Abnormality Appearance) (Pt Warm) -Tenderness on Palpation (Brandi-wound No Skin Appearance) -Ulcer Cleansing Rinsed/ Irrigated with Saline -Foul Odor after Cleansing No -Anesthetic Used 4% Lidocaine Solution #8- L LATERAL DORSAL FOOT -Current Size (cm) - Length 1.5 -Current Size (cm) - Width 6 -Current Size (cm) - Depth 0.1 -Total Square Cm 9.0 -Exudate Amt None Present -Wound Margin Distinct, Outline Attached -Granulation Amt None Present (0 %) -Texture (Brandi-wound Skin Appearance) Assessed, Scarring -Moisture (Brandi-wound Skin Appearance) Assessed -Color (Brandi-wound Skin Appearance) No Abnormality, Assessed -Temperature (Brandi-wound Skin No Abnormality Appearance) (Pt Warm) -Tenderness on Palpation (Brandi-wound No Skin Appearance) -Ulcer Cleansing Rinsed/ Irrigated with Saline -Foul Odor after Cleansing No -Anesthetic Used 4% Lidocaine Solution WC - Nurse 2 - General Ulcer CM Notes Start: 10/06/20 09:57 Freq: Status: Active Protocol: Activity Type Activity Date Activity User E-Sign Co-Sign Detail Recorded Client Recorded Date Recorded By Document 10/06/20 10:13 MOSHE [id number] 10/06/20 10:18 MOSHE 10/06/20 10:13 Wound Center Nurse 2 #11- R LAT DORSAL FOOT -Correct Patient No -Correct Side, Site, Position No -Correct Procedure No -Procedure Performed No -Post Debridement (cm) - Length 0 -Post Debridement (cm) - Width 0 -Post Debridement (cm) - Depth 0 -Total Square (Post) (cm) 0 -Area of Debridement (cm) - Length 0 -Area of Debridement (cm) - Width 0 -Total Square (Area) (cm) 0 -Wound/Ulcer Outcome Healed- Epithelialized #10- R 2ND TOE -Correct Patient No -Correct Side, Site, Position No -Correct Procedure No -Procedure Performed No -Post Debridement (cm) - Length 0 -Post Debridement (cm) - Width 0 -Post Debridement (cm) - Depth 0 -Total Square (Post) (cm) 0 -Area of Debridement (cm) - Length 0 -Area of Debridement (cm) - Width 0 -Total Square (Area) (cm) 0 -Wound/Ulcer Outcome Healed- Epithelialized #9- L 2ND/3RD TOES -Correct Patient No -Correct Side, Site, Position No -Correct Procedure No -Procedure Performed No -Post Debridement (cm) - Length 0 -Post Debridement (cm) - Width 0 -Post Debridement (cm) - Depth 0 -Total Square (Post) (cm) 0 -Area of Debridement (cm) - Length 0 -Area of Debridement (cm) - Width 0 -Total Square (Area) (cm) 0 -Wound/Ulcer Outcome Healed- Epithelialized #8- L LATERAL DORSAL FOOT -Correct Patient No -Correct Side, Site, Position No -Correct Procedure No -Procedure Performed No -Post Debridement (cm) - Length 0 -Post Debridement (cm) - Width 0 -Post Debridement (cm) - Depth 0 -Total Square (Post) (cm) 0 -Area of Debridement (cm) - Length 0 -Area of Debridement (cm) - Width 0 -Total Square (Area) (cm) 0 -Wound/Ulcer Outcome Healed- Epithelialized Assessment/Plan Assessment/Plan (1) Tinea pedis: CODE(S): B35.3 - Tinea pedis (2) Colonization status: CODE(S): Z22.9 - Carrier of infectious disease, unspecified (3) Maceration of skin: CODE(S): L98.8 - Other specified disorders of the skin and subcutaneous tissue (4) Deep venous thrombosis of distal end of left lower extremity: CODE(S): I82.4Z2 - Acute embolism and thrombosis of unspecified deep veins of left distal lower extremity QUALIFIERS: Chronicity: acute Qualified Code(s): I82.4Z2 - Acute embolism and thrombosis of unspecified deep veins of left distal lower extremity (5) Edema of left lower leg: CODE(S): R60.0 - Localized edema (6) Ulcer of right foot with fat layer exposed: CODE(S): L97.512 - Non-pressure chronic ulcer of other part of right foot with fat layer exposed (7) Ulcer of left foot with fat layer exposed: CODE(S): L97.522 - Non-pressure chronic ulcer of other part of left foot with fat layer exposed PLAN: I reviewed and discussed his case today. He refuses debridement of the remaining eschar today. His ulcer sites appear healed with epithelialization and lack of drainage. The following work up and care recommendations were made: Dressing: Discontinued due to healed status Wash: Antibacterial soap and water Offload: Open toed sneakers in which she already cut that dorsal fabric away Vascular: Previously reviewed and no intervention was recommended Edema: Bilateral Tubigrip's. He was previously diagnosed with venous insufficiency Infection: Prior MRSA and Pseudomonas bacteria was identified in his culture. He completed course of recommended antibiotics. He was reassured no purulence or erythema are noted. To maintain proper hygiene and daily foot wash with antibacterial soap and water. Pain: Well controlled today Host factors: He was advised on smoking cessation and how this will delay wound healing. He refuses to quit smoking. He is discharged from the wound healing center at this time. To return to clinic as needed. I answered all the patient's questions. The medical decision making level is low. There is noted low risk of morbidity after considering this treatment plan and diagnostic data. The problems addressed require a low medical decision making level which includes two or more minor problems, a stable chronic illness, or an acute uncomplicated illness or injury.
== END 2020-10-06 10:33 | disposition home or self-care (01) ==
LOC: WC 09:56
PROVIDERS: PCP Nurse Practitioner Adult Health; Visit Provider Podiatrist
DX: Z09 Encounter for follow-up examination after completed treatment for conditions other than malignant neoplasm (principal); I83.893 Varicose veins of bilateral lower extremities with other complications; B35.3 Tinea pedis; Z86.718 Personal history of other venous thrombosis and embolism
CPT/HCPCS: 99213; G0463

== ENCOUNTER 2021-04-18 08:53 | Outpatient (CLI) | payer MEDICARE, MEDICAID, SELFPAY ==
--- NOTE | 2021-04-18 08:58 | ART_ITS ---
Reason For Study: LE PVD Procedure A bilateral lower extremity continuous wave Doppler with analog waveform analysis and ankle brachial indexes. Left Segmental Pressures Left brachial= 132mmHg. Left posterior tibial artery = 172mmHg. Left dorsalis pedis artery = 186mmHg. Left digit = >254 mmHg. Right Segmental Pressures Right brachial= 122mmHg. Right posterior tibial artery = 173mmHg. Right dorsalis pedis artery = 166mmHg. Right digit = >254 mmHg. Indices The right ankle brachial index by the posterior tibial artery is 1.31. The right ankle brachial index by the dorsalis pedis is 1.26. The right digital-brachial index is NC. The left ankle brachial index by the posterior tibial artery is 1.30. The left ankle brachial index by the dorsalis pedis is 1.41. The left digital-brachial index is NC. VL/Ankle Brachial Index Interpretation Summary Bilateral with no significant occlusive disease at rest with bilateral triphasi c flow in PATRICE 1.31 and 1.41. May be slightly falsely elevated. Bilateral digit brachial index nonc ompressible. Ordering Physician: Elijah Lott Referring Physician: Elijah Lott Performed By: Urmila De La Torre RDCS/RVT
== END 2021-04-18 23:59 | disposition home or self-care (01) ==
LOC: CVS 08:55
PROVIDERS: PCP Nurse Practitioner Adult Health; Referring Provider Surgery Vascular Surgery; Visit Provider Surgery Vascular Surgery
DX: I73.9 Peripheral vascular disease, unspecified (principal)
CPT/HCPCS: 93922

== ENCOUNTER 2021-07-28 08:30 | Outpatient (RCR) | payer MEDICARE, MEDICAID, SELFPAY ==
[2021-07-07 09:34] VITALS: BP 112/68; PULSE 73; TEMP 36.4
--- NOTE | 2021-07-07 12:14 | PCM.WC.PN ---
History of Present Illness Date of Service: 07/07/21 Chief Complaint: Left and right foot maceration and dorsal foot ulcers History of Wound: This 60-year-old male with significant past medical history of bipolar disorder presents complaining of a left and right foot previous foot moisture and skin ulcers. He denies fever, chill, nausea, vomiting. He denies odor or drainage. He has discontinue dressing care and relates both feet are healed. He also completed a course of antibiotics. Subjective Subjective This is a 61-year-old man with significant past medical history of bipolar disorder presents to the wound care center today complaining of right foot moisture and skin ulcers. He states he was seen at urgent care a few days ago and was prescribed doxycycline 100 mg to be taken twice a day. He states today is his last day of antibiotics. He denies any constitutional symptoms today. He has no other complaints today. Objective Data Objective Data Vital Signs: Vital Signs Temp Pulse BP 97.6 F L 73 112/68 07/07/21 09:34 07/07/21 09:34 07/07/21 09:34 Physical Exam Const alert and oriented x3 General Appearance: cooperative HEENT normocephalic Eyes General Eye: normal appearance of both eyes Neck General: normal visual inspection Lymph Lymphatic: no lymphadenopathy noted and no lymphedema noted Chest inspection of chest normal Resp normal respiratory effort Cardio regular rate and regular rhythm Extremity normal capillary refill and no calf tenderness Extremity Narrative: He has diminished pulses DP and PT bilateral. Muscle wasting noted bilateral Moderate nonpitting edema of bilateral extremities with varicosities and some hyperpigmentation of the lower extremity and dorsal foot General Extremity: no tenderness to palpation of joints or extremities; Negative for cyanosis Skin no rashes or lesions noted and no jaundice General Skin Exam: Negative for erythema Wound Narrative: Superficial ulceration noted to the dorsal lateral right foot with yellow fibrous tissue covering the wound bed. No purulent drainage, no streaking, no odor, no maceration, or other local signs of infection. No drainage. Webspace one and webspace two of the right foot demonstrates healed skin with superficial abrasion to the medial third digit, medial and lateral second digit, plantar second digit, and medial hallux. No signs of infection. No drainage. Neuro moves all extremities Neuro Narrative: Decreased epicritic sensation via light touch consistent with neuropathy status. Psych cooperative and affect normal Debridement Note Debridement Note Wound debrided: Dorsal lateral right foot Laterality: Right Wound Grade/Stage: Monahan stage I Type of Debridement: Excisional debridement Anesthesia Used: 4% Lidocaine Solution Depth: Down to and including healthy tissue and in the subcutaneous layer Percentage of wound debrided: 100 Instrument Used: 3mm curette Tissue Removed: Fibrous, devitalized subcutaneous, biofilm, slough Severity: Fat Layer Exposed Amount of bleeding with debridement: Mild Bleeding Controlled with: Compression and gauze Patient tolerated procedure: Patient tolerated procedure well Post-Debridement Measurements and Additional Note: Post-Debridement Measurements/Treatment - Nurse 1 - General Ulcer Assessment Start: 07/07/21 09:34 Freq: Status: Active Protocol: DORA Activity Type Activity Date Activity User E-Sign Co-Sign Detail Recorded Client Recorded Date Recorded By Document 07/07/21 09:34 [facility] [id number] 07/07/21 09:47 F 07/07/21 09:34 WC - Today's Visit Information Type of service Initial Visit Arrival Mode Ambulatory, Walker Patient Identification Verified (Name & Yes ) Vital Signs Temperature (97.8 F-99.1 F) 97.6 F L Temperature Source Temporal Pulse Rate (60-100) 73 Pulse Location Monitor Blood Pressure (90/60-120/80) 112/68 Blood Pressure Mean (mm Hg) 82 Source Monitor Position Sitting Blood Pressure Location Left Arm History Since Last Visit- (Skip if this is Patient's initial visit) Have you changed medications since your No last visit? Any new allergies or adverse reactions No Had a fall/change in ADL's that may No increase risk of falls Signs or symptoms of abuse and/or No neglect since last visit Have you been in the hospital since your No last visit? Has dressing in place as prescribed Yes Has compression in place as prescribed Yes Has offloadiing in place as prescribed Yes Experienced any changes in pain level or No management Left Footwear Wedge Shoe Right Footwear Wedge Shoe Pain Scale: 0-10 Numeric Is Patient Pain Free? Yes [facility] Nurse 1 - General Ulcer Measurement Start: 07/07/21 09:34 Freq: Status: Active Protocol: Activity Type Activity Date Activity User E-Sign Co-Sign Detail Recorded Client Recorded Date Recorded By Document 07/07/21 09:34 [facility] [id number] 07/07/21 09:47 BMF Edit Result 07/07/21 09:34 BMF (1) [id number] 07/07/21 09:53 BMF (1) #14 2nd and 3rd web space right foot - Date of Last Picture (Recall this => 07/07/21 field) - Photo Taken => Yes - Tunneling => No - Undermining/Tunneling => No - Circular Undermining => No #13 1st and 2nd web space right foot - Date of Last Picture (Recall this => 07/07/21 field) - Photo Taken => Yes - Tunneling => No - Undermining/Tunneling => No - Circular Undermining => No #12 Right Dorsal Foot - Date of Last Picture (Recall this => 07/07/21 field) - Photo Taken => Yes - Tunneling => No - Undermining/Tunneling => No - Circular Undermining => No 07/07/21 09:34 Wound Center Nurse 1 #14 2nd and 3rd web space right foot -Current Size (cm) - Length 2.1 -Current Size (cm) - Width 1 -Current Size (cm) - Depth 0.1 -Total Square Cm 2.1 -Date of Last Picture (Recall this 07/07/21 field) -Photo Taken Yes -Tunneling No -Undermining/Tunneling No -Circular Undermining No -Exudate Amt Small -Exudate Type Serosanguineous -Wound Margin Distinct, Outline Attached -Granulation Amt Medium (34-66%) -Granulation Quality Red -Necrosis Amt Medium (34-66%) -Necrotic Tissue Type Adherent Slough -Texture (Brandi-wound Skin Appearance) Assessed,Callus -Moisture (Brandi-wound Skin Appearance) Assessed, Maceration -Color (Brandi-wound Skin Appearance) No Abnormality, Assessed -Temperature (Brandi-wound Skin No Abnormality Appearance) (Pt Warm) -Tenderness on Palpation (Brandi-wound No Skin Appearance) -Ulcer Cleansing Rinsed/ Irrigated with Saline -Foul Odor after Cleansing No -Anesthetic Used 5% Lidocaine Gel #13 1st and 2nd web space right foot -Current Size (cm) - Length 2.8 -Current Size (cm) - Width 2.5 -Current Size (cm) - Depth 0.1 -Total Square Cm 7.00 -Date of Last Picture (Recall this 07/07/21 field) -Photo Taken Yes -Tunneling No -Undermining/Tunneling No -Circular Undermining No -Exudate Amt Small -Exudate Type Serosanguineous -Wound Margin Distinct, Outline Attached -Granulation Amt Medium (34-66%) -Granulation Quality Red -Necrosis Amt Medium (34-66%) -Necrotic Tissue Type Adherent Slough -Texture (Brandi-wound Skin Appearance) Assessed,Callus ,Scarring -Moisture (Brandi-wound Skin Appearance) Assessed, Maceration -Color (Brandi-wound Skin Appearance) No Abnormality, Assessed -Temperature (Brandi-wound Skin No Abnormality Appearance) (Pt Warm) -Tenderness on Palpation (Brandi-wound No Skin Appearance) -Ulcer Cleansing Rinsed/ Irrigated with Saline -Foul Odor after Cleansing No -Anesthetic Used 5% Lidocaine Gel #12 Right Dorsal Foot -Current Size (cm) - Length 8.5 -Current Size (cm) - Width 5.7 -Current Size (cm) - Depth 0.1 -Total Square Cm 48.45 -Date of Last Picture (Recall this 07/07/21 field) -Photo Taken Yes -Tunneling No -Undermining/Tunneling No -Circular Undermining No -Exudate Amt Medium -Exudate Type Serosanguineous -Wound Margin Distinct, Outline Attached -Granulation Amt Medium (34-66%) -Granulation Quality Red -Necrosis Amt Medium (34-66%) -Necrotic Tissue Type Adherent Slough -Texture (Brandi-wound Skin Appearance) Assessed,Callus -Moisture (Brandi-wound Skin Appearance) Assessed, Maceration -Color (Brandi-wound Skin Appearance) No Abnormality, Assessed -Temperature (Brandi-wound Skin No Abnormality Appearance) (Pt Warm) -Tenderness on Palpation (Brandi-wound No Skin Appearance) -Ulcer Cleansing Rinsed/ Irrigated with Saline -Foul Odor after Cleansing No -Anesthetic Used 5% Lidocaine Gel Right Calf (cm) 41.4 Right Ankle (cm) 30 Left Calf (cm) 40 Left Ankle (cm) 29.2 Assessment/Plan Assessment/Plan (1) Ulcer of right foot with fat layer exposed: CODE(S): L97.512 - Non-pressure chronic ulcer of other part of right foot with fat layer exposed (2) Obesity (BMI 30.0-34.9): CODE(S): E66.9 - Obesity, unspecified (3) Tobacco abuse: CODE(S): Z72.0 - Tobacco use (4) Bipolar disorder: CODE(S): F31.9 - Bipolar disorder, unspecified QUALIFIERS: Active/Remission status: remission status unspecified Qualified Code(s): F31.9 - Bipolar disorder, unspecified (5) Venous insufficiency (chronic) (peripheral): CODE(S): I87.2 - Venous insufficiency (chronic) (peripheral) (6) Nonhealing nonsurgical wound limited to breakdown of skin: CODE(S): T14.8XXA - Other injury of unspecified body region, initial encounter (7) Bilateral edema of lower extremity: CODE(S): R60.0 - Localized edema PLAN: Patient seen and evaluated. I reviewed and discussed his case today. Debridement was performed today as noted in the clinical panel to all of the ulcer sites. He has a new dorsal lateral right foot ulceration secondary to chronic venous insufficiency as well as maceration of the first and second webspace of the right foot with peeling complicated by chronic tobacco abuse. He was previously seen for this last fall by Dr. Alcaraz. The following work up and care recommendations were made: Dressing: Adaptic to the wound bed, Aquacel Ag, compression dressing. Aquacel AG between the toes Wash: Soap and water Tissue growth optimization: None Offload: Elevate lower extremities at all times of rest Vascular: Arterial studies 04/19/[address] Lott demonstrate venous insufficiency, triphasic flow PATRICE 1.31 right and 1.41 left Edema: Elevate lower extremities at all times of rest, compression dressing Infection: No signs of infection. Patient currently finishing course of antibiotics, doxycycline 100 mg twice daily. Pain: Well controlled today Host factors: He was advised on smoking cessation and how this will delay his wound healing. He states that he will not stop smoking and refuses to do so. I will evaluate wound sites next week after maceration, drainage, and edema are better controlled. Will consider collagen based product at next visit. I answered all the patient's questions. To return to the wound healing center in 1 week or call sooner if the patient has any questions or concerns. Note: [employer] speech recognition websphere commerce developer software was used to create portions of this document. Sound-alike and misspelled words, as well as other websphere commerce developer errors may be contained in the documentation. The problems addressed require a low medical decision making level which includes two or more minor problems, a stable chronic illness, or an acute uncomplicated illness or injury. The medical decision making level is low. There is noted low risk of morbidity after considering this treatment plan and diagnostic data.
[2021-07-14 09:24] VITALS: BP 114/67; PULSE 71; RESP 18; TEMP 36.3
--- NOTE | 2021-07-14 12:27 | PCM.WC.PN ---
History of Present Illness Date of Service: 07/14/21 Chief Complaint: Left and right foot maceration and dorsal foot ulcers History of Wound: This 60-year-old male with significant past medical history of bipolar disorder presents complaining of a left and right foot previous foot moisture and skin ulcers. He denies fever, chill, nausea, vomiting. He denies odor or drainage. He has discontinue dressing care and relates both feet are healed. He also completed a course of antibiotics. Subjective Subjective This is a 61-year-old man with significant past medical history of bipolar disorder who presents to the wound care center today for follow up of right foot macerated webspaces and skin ulcers secondary to chronic venous insufficiency. He states his assisted living facility did not change the dressings between his toes as instructed and thus felt his dressings remained wet. He denies any constitutional symptoms today. He has no other complaints today. Objective Data Objective Data Vital Signs: Vital Signs Temp Pulse Resp BP 97.3 F L 71 18 114/67 07/14/21 09:24 07/14/21 09:24 07/14/21 09:24 07/14/21 09:24 Oxygen Delivery Method Room Air Physical Exam Const alert and oriented x3 General Appearance: cooperative HEENT normocephalic Eyes General Eye: normal appearance of both eyes Neck General: normal visual inspection Lymph Lymphatic: no lymphadenopathy noted and no lymphedema noted Chest inspection of chest normal Resp normal respiratory effort Cardio regular rate and regular rhythm Extremity normal capillary refill and no calf tenderness Extremity Narrative: He has diminished pulses DP and PT bilateral. Muscle wasting noted bilateral Moderate nonpitting edema of bilateral extremities with varicosities and some hyperpigmentation of the lower extremity and dorsal foot General Extremity: no tenderness to palpation of joints or extremities; Negative for cyanosis Skin no rashes or lesions noted and no jaundice General Skin Exam: Negative for erythema Wound Narrative: Superficial ulceration noted to the dorsal lateral right foot with yellow fibrous tissue covering the wound bed. Evidence of epithelialization at the lateral aspect of the wound. No purulent drainage, no streaking, no odor, no maceration, or other local signs of infection. No drainage. Webspace one and webspace two of the right foot demonstrates significant maceration with superficial abrasion to the medial third digit, medial and lateral second digit, plantar second digit, and medial hallux. No signs of infection. Neuro moves all extremities Neuro Narrative: Decreased epicritic sensation via light touch consistent with neuropathy status. Psych cooperative and affect normal Debridement Note Debridement Note Wound debrided: Dorsal lateral foot Laterality: Right Wound Grade/Stage: Monahan stage I Type of Debridement: Excisional debridement Anesthesia Used: 5% Lidocaine Gel and Cetacaine Depth: Down to and including healthy tissue and in the subcutaneous layer Percentage of wound debrided: 100 Instrument Used: 3mm curette Tissue Removed: Fibrous, devitalized subcutaneous, biofilm, slough Severity: Fat Layer Exposed Amount of bleeding with debridement: Mild Bleeding Controlled with: Compression and gauze Patient tolerated procedure: Patient tolerated procedure well Post-Debridement Measurements and Additional Note: Post-Debridement Measurements/Treatment - Nurse 1 - General Ulcer Assessment Start: 07/07/21 09:34 Freq: Status: Active Protocol: DORA Activity Type Activity Date Activity User E-Sign Co-Sign Detail Recorded Client Recorded Date Recorded By Document 07/07/21 09:34 [facility] [id number] 07/07/21 09:47 [facility] Document 07/14/21 09:24 IN [id number] 07/14/21 09:34 IN 07/07/21 07/14/21 09:34 09:24 - Today's Visit Information Type of service Initial Visit Follow-up Visit (Physician/PROCESSING ASSOCIATE ) Arrival Mode Ambulatory, Ambulatory, Walker Walker Transfer Assistance None Patient Identification Verified (Name & Yes Yes ) Patient Requires Transmission-Based No Precautions Vital Signs Temperature (97.8 F-99.1 F) 97.6 F L 97.3 F L Temperature Source Temporal Temporal Pulse Rate (60-100) 73 71 Pulse Location Monitor Monitor Respiratory Rate (12-18) 18 Respiratory rate source Observation Oxygen Delivery Method Room Air Blood Pressure (90/60-120/80) 112/68 114/67 Blood Pressure Mean (mm Hg) 82 82 Source Monitor Monitor Position Sitting Sitting Blood Pressure Location Left Arm Left Arm History Since Last Visit- (Skip if this is Patient's initial visit) Have you changed medications since your No No last visit? Any new allergies or adverse reactions No No Had a fall/change in ADL's that may No No increase risk of falls Signs or symptoms of abuse and/or No No neglect since last visit Have you been in the hospital since your No No last visit? Has dressing in place as prescribed Yes Yes Has compression in place as prescribed Yes Yes Has offloadiing in place as prescribed Yes Yes Experienced any changes in pain level or No No management Left Footwear Wedge Shoe Custom Shoe Right Footwear Wedge Shoe Custom Shoe Pain Scale: 0-10 Numeric Is Patient Pain Free? Yes Yes WC - Nurse 1 - General Ulcer Measurement Start: 07/07/21 09:34 Freq: Status: Active Protocol: Activity Type Activity Date Activity User E-Sign Co-Sign Detail Recorded Client Recorded Date Recorded By Document 07/07/21 09:34 [facility] [id number] 07/07/21 09:47 BMF Edit Result 07/07/21 09:34 BMF (1) [id number] 07/07/21 09:53 BMF Document 07/14/21 09:24 AK [id number] 07/14/21 09:34 AK (1) #14 2nd and 3rd web space right foot - Date of Last Picture (Recall this => 07/07/21 field) - Photo Taken => Yes - Tunneling => No - Undermining/Tunneling => No - Circular Undermining => No #13 1st and 2nd web space right foot - Date of Last Picture (Recall this => 07/07/21 field) - Photo Taken => Yes - Tunneling => No - Undermining/Tunneling => No - Circular Undermining => No #12 Right Dorsal Foot - Date of Last Picture (Recall this => 07/07/21 field) - Photo Taken => Yes - Tunneling => No - Undermining/Tunneling => No - Circular Undermining => No 07/07/21 07/14/21 09:34 09:24 Wound Center Nurse 1 #14 2nd and 3rd web space right foot -Combined with other wound No -Current Size (cm) - Length 2.1 2.5 -Current Size (cm) - Width 1 1 -Current Size (cm) - Depth 0.1 0.1 -Total Square Cm 2.1 2.5 -Date of Last Picture (Recall this 07/07/21 field) -Photo Taken Yes -Epithelialization Small 1-33% -Tunneling No No -Undermining/Tunneling No No -Circular Undermining No No -Exudate Amt Small Medium -Exudate Type Serosanguineous Serosanguineous -Wound Margin Distinct, Distinct, Outline Outline Attached Attached -Granulation Amt Medium (34-66%) Large (67-100%) -Granulation Quality Red Merino -Slough/Fibrin Yes -Necrosis Amt Medium (34-66%) Small (1-33%) -Necrotic Tissue Type Adherent Slough Adherent Slough -Texture (Brandi-wound Skin Appearance) Assessed,Callus Assessed, Scarring -Moisture (Brandi-wound Skin Appearance) Assessed, Assessed Maceration -Color (Brandi-wound Skin Appearance) No Abnormality, Assessed Assessed -Temperature (Brandi-wound Skin No Abnormality No Abnormality Appearance) (Pt Warm) (Pt Warm) -Tenderness on Palpation (Brandi-wound No No Skin Appearance) -Ulcer Cleansing Rinsed/ Soap and Water Irrigated with Saline -Foul Odor after Cleansing No No -Anesthetic Used 5% Lidocaine 4% Lidocaine Gel Solution #13 1st and 2nd web space right foot -Combined with other wound No -Current Size (cm) - Length 2.8 3.5 -Current Size (cm) - Width 2.5 3 -Current Size (cm) - Depth 0.1 0.1 -Total Square Cm 7.00 10.5 -Date of Last Picture (Recall this 07/07/21 field) -Photo Taken Yes No -Epithelialization Small 1-33% -Tunneling No No -Undermining/Tunneling No No -Circular Undermining No No -Exudate Amt Small Medium -Exudate Type Serosanguineous Serosanguineous -Wound Margin Distinct, Distinct, Outline Outline Attached Attached -Granulation Amt Medium (34-66%) Large (67-100%) -Granulation Quality Red Merino -Slough/Fibrin Yes -Necrosis Amt Medium (34-66%) Small (1-33%) -Necrotic Tissue Type Adherent Slough Adherent Slough -Texture (Brandi-wound Skin Appearance) Assessed,Callus Assessed, ,Scarring Scarring -Moisture (Brandi-wound Skin Appearance) Assessed, Assessed, Maceration Maceration -Color (Brandi-wound Skin Appearance) No Abnormality, Assessed Assessed -Temperature (Brandi-wound Skin No Abnormality No Abnormality Appearance) (Pt Warm) (Pt Warm) -Tenderness on Palpation (Brandi-wound No No Skin Appearance) -Ulcer Cleansing Rinsed/ Soap and Water Irrigated with Saline -Foul Odor after Cleansing No No -Anesthetic Used 5% Lidocaine 4% Lidocaine Gel Solution #12 Right Dorsal Foot -Combined with other wound No -Current Size (cm) - Length 8.5 9 -Current Size (cm) - Width 5.7 6 -Current Size (cm) - Depth 0.1 0.1 -Total Square Cm 48.45 54 -Date of Last Picture (Recall this 07/07/21 field) -Photo Taken Yes -Epithelialization None Present -Tunneling No No -Undermining/Tunneling No No -Circular Undermining No No -Exudate Amt Medium Large -Exudate Type Serosanguineous Serosanguineous -Wound Margin Distinct, Distinct, Outline Outline Attached Attached -Granulation Amt Medium (34-66%) Large (67-100%) -Granulation Quality Red Merino -Slough/Fibrin Yes -Necrosis Amt Medium (34-66%) Medium (34-66%) -Necrotic Tissue Type Adherent Slough Adherent Slough -Texture (Brandi-wound Skin Appearance) Assessed,Callus Assessed, Scarring -Moisture (Brandi-wound Skin Appearance) Assessed, Assessed, Maceration Maceration -Color (Brandi-wound Skin Appearance) No Abnormality, Assessed,Palor Assessed -Temperature (Brandi-wound Skin No Abnormality No Abnormality Appearance) (Pt Warm) (Pt Warm) -Tenderness on Palpation (Brandi-wound No No Skin Appearance) -Ulcer Cleansing Rinsed/ Soap and Water Irrigated with Saline -Foul Odor after Cleansing No No -Anesthetic Used 5% Lidocaine 4% Lidocaine Gel Solution Lower Limb Edema Present No Right Calf (cm) 41.4 39.7 Right Ankle (cm) 30 28.4 Left Calf (cm) 40 Left Ankle (cm) 29.2 WC - Nurse 2 - General Ulcer CM Notes Start: 07/07/21 09:34 Freq: Status: Active Protocol: Activity Type Activity Date Activity User E-Sign Co-Sign Detail Recorded Client Recorded Date Recorded By Document 07/07/21 13:28 PL [id number] 07/07/21 13:31 PL Document 07/14/21 09:44 [id number] 07/14/21 09:53 MOSHE 07/07/21 07/14/21 13:28 09:44 Wound Center Nurse 2 #14 2nd and 3rd web space right foot -Time 09:47 -Correct Patient Yes -Correct Side, Site, Position Yes -Correct Procedure Yes -Procedure Performed No Yes -Type of Procedure Debridement -Clinical Debridement Subcutaneous -Tissue Removed Subcutaneous -Post Debridement (cm) - Length 2.5 -Post Debridement (cm) - Width 1.2 -Post Debridement (cm) - Depth 0.1 -Total Square (Post) (cm) 3.00 -Area of Debridement (cm) - Length 2.5 -Area of Debridement (cm) - Width 1.2 -Total Square (Area) (cm) 3.00 -Tunneling No -Undermining/Tunneling No -Circular Undermining No -Wound/Ulcer Outcome Not Healed -Ulcer Cleansing Rinsed/ Irrigated with Saline -Foul Odor after Cleansing No -Bioengineered Tissue No -Bleeding Controlled with Pressure -Treatment Response Procedure Tolerated Well -Offloading No -Debridement - Subq, 1st 20sq cm No #13 1st and 2nd web space right foot -Time 09:47 -Correct Patient Yes -Correct Side, Site, Position Yes -Correct Procedure Yes -Procedure Performed No Yes -Type of Procedure Debridement -Clinical Debridement Subcutaneous -Tissue Removed Subcutaneous -Post Debridement (cm) - Length 3.6 -Post Debridement (cm) - Width 3 -Post Debridement (cm) - Depth 0.1 -Total Square (Post) (cm) 10.8 -Area of Debridement (cm) - Length 3.6 -Area of Debridement (cm) - Width 3.0 -Total Square (Area) (cm) 10.80 -Tunneling No -Undermining/Tunneling No -Circular Undermining No -Wound/Ulcer Outcome Not Healed -Ulcer Cleansing Rinsed/ Irrigated with Saline -Foul Odor after Cleansing No -Bioengineered Tissue No -Bleeding Controlled with Pressure -Treatment Response Procedure Tolerated Well -Offloading No -Debridement - Subq, 1st 20sq cm No #12 Right Dorsal Foot -Time 10:13 09:47 -Correct Patient Yes Yes -Correct Side, Site, Position Yes Yes -Correct Procedure Yes Yes -Procedure Performed Yes Yes -Type of Procedure Debridement Debridement -Clinical Debridement Subcutaneous Subcutaneous -Tissue Removed Subcutaneous Subcutaneous -Post Debridement (cm) - Length 8.5 9 -Post Debridement (cm) - Width 5.7 6.1 -Post Debridement (cm) - Depth 0.1 0.1 -Total Square (Post) (cm) 48.45 54.9 -Area of Debridement (cm) - Length 8.5 9.0 -Area of Debridement (cm) - Width 5.7 6.1 -Total Square (Area) (cm) 48.45 54.90 -Tunneling No No -Undermining/Tunneling No No -Circular Undermining No No -Wound/Ulcer Outcome Not Healed Not Healed -Ulcer Cleansing Rinsed/ Rinsed/ Irrigated with Irrigated with Saline Saline -Foul Odor after Cleansing No No -Bioengineered Tissue No No -Bleeding Controlled with Pressure Pressure -Treatment Response Procedure Procedure Tolerated Well Tolerated Well -Offloading No -Debridement - Subq, 1st 20sq cm Yes Yes -Debridement, SubQ, ea addt'l 20sq cm 2 2 or part thereof Pain Scale: 0-10 Numeric Is Patient Pain Free? Yes Yes - Nurse 3 - General Ulcer D/C NN Start: 07/07/21 09:34 Freq: Status: Active Protocol: Activity Type Activity Date Activity User E-Sign Co-Sign Detail Recorded Client Recorded Date Recorded By Document 07/07/21 12:13 GHADA [id number] 07/07/21 12:16 AK Document 07/14/21 10:01 IN [id number] 07/14/21 10:04 AK 07/07/21 07/14/21 12:13 10:01 Wound Care Nurse 3 #14 2nd and 3rd web space right foot -Ulcer Cleansing Rinsed/ Rinsed/ Irrigated with Irrigated with Saline Saline -Foul Odor after Cleansing No -Negative Pressure Wound Therapy N/A -Primary Dressing Applied Aquacel AG 4x4, Aquacel AG 4x4 NonAdherent Contact Layer -Primary Dressing Covered/Secured with Dry Gauze Dry Gauze -Aquacel AG 4x4 1 1 #13 1st and 2nd web space right foot -Ulcer Cleansing Rinsed/ Rinsed/ Irrigated with Irrigated with Saline Saline -Foul Odor after Cleansing No -Negative Pressure Wound Therapy N/A -Primary Dressing Applied Aquacel AG 4x4, Aquacel AG 4x4 NonAdherent Contact Layer -Primary Dressing Covered/Secured with Dry Gauze Dry Gauze, Secured with Tape -Aquacel AG 4x4 0 0 #12 Right Dorsal Foot -Ulcer Cleansing Rinsed/ Rinsed/ Irrigated with Irrigated with Saline Saline -Foul Odor after Cleansing No No -Negative Pressure Wound Therapy N/A N/A -Primary Dressing Applied Aquacel AG 4x4, Aquacel AG 4x4, NonAdherent Optilok 6.5x10 Contact Layer, Optilok 8x12 -Other Dressing opti- between layers -Primary Dressing Covered/Secured with Secured with Tape -Aquacel AG 4x4 0 0 -Optilok 6.5x10 1 -Optilok 8x12 1 Right -Multi-Layered Wrap Application Unna Boot - Right ($) -Stockings No Pain Scale: 0-10 Numeric Is Patient Pain Free? Yes Yes WC - Visit Discharge Discharge Condition Stable Stable Ambulatory Status Ambulatory Ambulatory Transportation Private Auto Private Auto Medication Reconcilliation completed & Yes Yes provided to patient/care provider Clinical Summary of Care Provided Yes Yes Additional Wound Wound debrided: First and second web spaces and second digit Laterality: Right Wound Grade/Stage: Monahan stage I Type of Debridement: Excisional debridement Anesthesia Used: 5% Lidocaine Gel Depth: Down to and including healthy tissue and in the subcutaneous layer Percentage of wound debrided: 100 Instrument Used: 3mm curette Tissue Removed: Fibrous, devitalized subcutaneous, biofilm, slough Severity: Fat Layer Exposed Amount of bleeding with debridement: Mild Bleeding Controlled with: Compression and gauze Patient tolerated procedure: Patient tolerated procedure well Assessment/Plan Assessment/Plan (1) Ulcer of right foot with fat layer exposed: CODE(S): L97.512 - Non-pressure chronic ulcer of other part of right foot with fat layer exposed (2) Obesity (BMI 30.0-34.9): CODE(S): E66.9 - Obesity, unspecified (3) Tobacco abuse: CODE(S): Z72.0 - Tobacco use (4) Bipolar disorder: CODE(S): F31.9 - Bipolar disorder, unspecified QUALIFIERS: Active/Remission status: remission status unspecified Qualified Code(s): F31.9 - Bipolar disorder, unspecified (5) Venous insufficiency (chronic) (peripheral): CODE(S): I87.2 - Venous insufficiency (chronic) (peripheral) (6) Nonhealing nonsurgical wound limited to breakdown of skin: CODE(S): T14.8XXA - Other injury of unspecified body region, initial encounter (7) Bilateral edema of lower extremity: CODE(S): R60.0 - Localized edema PLAN: Patient seen and evaluated. I reviewed and discussed his case today. Debridement was performed today as noted in the clinical panel to all of the ulcer sites. Dorsal lateral right foot ulceration secondary to chronic venous insufficiency as well as significant maceration of the first and second webspace of the right foot with peeling complicated by chronic tobacco abuse. I will consider Misonix debridement at next visit to decrease his pain level during debridement. He is instructed to continue elevating his feet at times of rest. His wound site is starting to demonstrate epithelialization at the dorsal lateral aspect of the foot wound. The following work up and care recommendations were made: Dressing: Adaptic to the wound bed, Aquacel Ag, Unna boot. Aquacel AG between the toes, dressing between toes changed daily Wash: Soap and water Tissue growth optimization: None Offload: Elevate lower extremities at all times of rest Vascular: Arterial studies 04/19/[address] Lott demonstrate venous insufficiency, triphasic flow PATRICE 1.31 right and 1.41 left Edema: Elevate lower extremities at all times of rest, compression dressing Infection: No signs of infection. Pain: Well controlled today Host factors: He was advised on smoking cessation and how this will delay his wound healing. He states that he will not stop smoking and refuses to do so. His wound sites are still macerated due to his skilled facility not performing dressing changes as instructed. New orders were submitted to his skilled facility detailing his dressing changes. I will evaluate wound sites next week after maceration, drainage, and edema are better controlled. Will consider collagen based product at next visit as well as possible Suprasorb. He was instructed to maintain adequate protein intake to aid in his wound healing. I answered all the patient's questions. To return to the wound healing center in 1 week or call sooner if the patient has any questions or concerns. Note: Sendori speech recognition vocational ed instructor software was used to create portions of this document. Sound-alike and misspelled words, as well as other vocational ed instructor errors may be contained in the documentation. The problems addressed require a low medical decision making level which includes two or more minor problems, a stable chronic illness, or an acute uncomplicated illness or injury. The medical decision making level is low. There is noted low risk of morbidity after considering this treatment plan and diagnostic data.
[2021-07-18 11:07] VITALS: BP 111/67; PULSE 68; RESP 18; TEMP 35.8
[2021-07-21 08:39] VITALS: BP 114/67; PULSE 74; TEMP 36.2
--- NOTE | 2021-07-21 10:30 | PCM.WC.PN ---
History of Present Illness Date of Service: 07/21/21 Chief Complaint: Left and right foot maceration and dorsal foot ulcers History of Wound: This 60-year-old male with significant past medical history of bipolar disorder presents complaining of a left and right foot previous foot moisture and skin ulcers. He denies fever, chill, nausea, vomiting. He denies odor or drainage. He has discontinue dressing care and relates both feet are healed. He also completed a course of antibiotics. Subjective Subjective This is a 61-year-old man with significant past medical history of bipolar disorder presents to the wound care center today for follow up of right foot macerated webspaces and skin ulcer dorsal foot secondary to chronic venous insufficiency. He denies any constitutional symptoms today. He states his assisted living facility has been changing the dressings between his toes daily. He has no other complaints today. Objective Data Objective Data Vital Signs: Vital Signs Temp Pulse Resp BP 97.1 F L 74 18 114/67 07/21/21 08:39 07/21/21 08:39 07/18/21 11:07 07/21/21 08:39 Oxygen Delivery Method Room Air Physical Exam Const alert and oriented x3 General Appearance: cooperative HEENT normocephalic Eyes General Eye: normal appearance of both eyes Neck General: normal visual inspection Lymph Lymphatic: no lymphadenopathy noted and no lymphedema noted Chest inspection of chest normal Resp normal respiratory effort Cardio regular rate and regular rhythm Extremity normal capillary refill and no calf tenderness Extremity Narrative: He has diminished pulses DP and PT bilateral. Muscle wasting noted bilateral Moderate nonpitting edema of bilateral extremities with varicosities and some hyperpigmentation of the lower extremity and dorsal foot General Extremity: no tenderness to palpation of joints or extremities; Negative for cyanosis Skin no rashes or lesions noted and no jaundice General Skin Exam: Negative for erythema Wound Narrative: Superficial ulceration noted to the dorsal lateral right foot with yellow fibrous tissue covering the wound bed. Evidence of epithelialization at the lateral aspect of the wound. No purulent drainage, no streaking, no odor, no maceration, or other local signs of infection. No drainage. Webspace one and webspace two of the right foot demonstrates significant maceration with superficial abrasion to the medial third digit, medial and lateral second digit, plantar second digit, and medial hallux. No signs of infection. Neuro moves all extremities Neuro Narrative: Decreased epicritic sensation via light touch consistent with neuropathy status. Psych cooperative and affect normal Debridement Note Debridement Note Wound debrided: Right dorsal foot Laterality: Right Wound Grade/Stage: Monahan stage I Type of Debridement: Excisional debridement Anesthesia Used: 5% Lidocaine Gel Depth: Down to and including healthy tissue and in the subcutaneous layer Percentage of wound debrided: 100 Instrument Used: - (AppCastonix ultrasonic debrider) Tissue Removed: Fibrous, devitalized subcutaneous, biofilm, slough Severity: Fat Layer Exposed Amount of bleeding with debridement: Mild Bleeding Controlled with: Compression and gauze Patient tolerated procedure: Patient tolerated procedure well Post-Debridement Measurements and Additional Note: Post-Debridement Measurements/Treatment - Nurse 1 - General Ulcer Assessment Start: 07/07/21 09:34 Freq: Status: Active Protocol: DORA Activity Type Activity Date Activity User E-Sign Co-Sign Detail Recorded Client Recorded Date Recorded By Document 07/07/21 09:34 [facility] [id number] 07/07/21 09:47 [facility] Document 07/14/21 09:24 IA [id number] 07/14/21 09:34 AK Document 07/18/21 11:07 [id number] 07/18/21 11:11 Document 07/21/21 08:39 IA [id number] 07/21/21 08:51 AK 07/07/21 07/14/21 07/18/21 09:34 09:24 11:07 - Today's Visit Information Type of service Initial Visit Follow-up Visit Nurse-only (Physician/LANDSCAPE HORTICULTURE INSTRUCTOR Visit ) Arrival Mode Ambulatory, Ambulatory, Ambulatory Walker Walker Transfer Assistance None Patient Identification Verified (Name & Yes Yes No ) Patient Requires Transmission-Based No No Precautions Safety Precautions Vital Signs Temperature (97.8 F-99.1 F) 97.6 F L 97.3 F L 96.5 F L Temperature Source Temporal Temporal Temporal Pulse Rate (60-100) 73 71 68 Pulse Location Monitor Monitor Monitor Respiratory Rate (12-18) 18 18 Respiratory rate source Observation Observation Oxygen Delivery Method Room Air Blood Pressure (90/60-120/80) 112/68 114/67 111/67 Blood Pressure Mean (mm Hg) 82 82 81 Source Monitor Monitor Monitor Position Sitting Sitting Sitting Blood Pressure Location Left Arm Left Arm Left Arm History Since Last Visit- (Skip if this is Patient's initial visit) Have you changed medications since your No No last visit? Any new allergies or adverse reactions No No Had a fall/change in ADL's that may No No increase risk of falls Signs or symptoms of abuse and/or No No neglect since last visit Have you been in the hospital since your No No last visit? Has dressing in place as prescribed Yes Yes Has compression in place as prescribed Yes Yes Has offloadiing in place as prescribed Yes Yes Experienced any changes in pain level or No No management Left Footwear Wedge Shoe Custom Shoe Regular Shoe Right Footwear Wedge Shoe Custom Shoe Regular Shoe Pain Scale: 0-10 Numeric Is Patient Pain Free? Yes Yes Yes 07/21/21 08:39 WC - Today's Visit Information Type of service Follow-up Visit (Physician/LANDSCAPE HORTICULTURE INSTRUCTOR ) Arrival Mode Ambulatory, Walker Transfer Assistance Patient Identification Verified (Name & Yes ) Patient Requires Transmission-Based No Precautions Safety Precautions NA Vital Signs Temperature (97.8 F-99.1 F) 97.1 F L Temperature Source Temporal Pulse Rate (60-100) 74 Pulse Location Monitor Respiratory Rate (12-18) Respiratory rate source Oxygen Delivery Method Blood Pressure (90/60-120/80) 114/67 Blood Pressure Mean (mm Hg) 82 Source Monitor Position Blood Pressure Location History Since Last Visit- (Skip if this is Patient's initial visit) Have you changed medications since your No last visit? Any new allergies or adverse reactions No Had a fall/change in ADL's that may No increase risk of falls Signs or symptoms of abuse and/or No neglect since last visit Have you been in the hospital since your No last visit? Has dressing in place as prescribed Yes Has compression in place as prescribed No Has offloadiing in place as prescribed Yes Experienced any changes in pain level or No management Left Footwear Surgical Shoe with pressure relief insole Right Footwear Surgical Shoe with pressure relief insole Pain Scale: 0-10 Numeric Is Patient Pain Free? Yes - Nurse 1 - General Ulcer Measurement Start: 07/07/21 09:34 Freq: Status: Active Protocol: Activity Type Activity Date Activity User E-Sign Co-Sign Detail Recorded Client Recorded Date Recorded By Document 07/07/21 09:34 [facility] [id number] 07/07/21 09:47 BMF Edit Result 07/07/21 09:34 BMF (1) [id number] 07/07/21 09:53 BMF Document 07/14/21 09:24 AK [id number] 07/14/21 09:34 AK Document 07/18/21 11:07 [id number] 07/18/21 11:11 JF Document 07/21/21 08:39 AK [id number] 07/21/21 08:51 AK (1) #14 2nd and 3rd web space right foot - Date of Last Picture (Recall this => 07/07/21 field) - Photo Taken => Yes - Tunneling => No - Undermining/Tunneling => No - Circular Undermining => No #13 1st and 2nd web space right foot - Date of Last Picture (Recall this => 07/07/21 field) - Photo Taken => Yes - Tunneling => No - Undermining/Tunneling => No - Circular Undermining => No #12 Right Dorsal Foot - Date of Last Picture (Recall this => 07/07/21 field) - Photo Taken => Yes - Tunneling => No - Undermining/Tunneling => No - Circular Undermining => No 07/07/21 07/14/21 07/18/21 09:34 09:24 11:07 Wound Center Nurse 1 #14 2nd and 3rd web space right foot -Combined with other wound No -Current Size (cm) - Length 2.1 2.5 -Current Size (cm) - Width 1 1 -Current Size (cm) - Depth 0.1 0.1 -Total Square Cm 2.1 2.5 -Date of Last Picture (Recall this 07/07/21 field) -Photo Taken Yes -Epithelialization Small 1-33% -Tunneling No No No -Undermining/Tunneling No No No -Circular Undermining No No No -Classification - Monahan Grading ( Diabetic Ulcer) -Exudate Amt Small Medium Medium -Exudate Type Serosanguineous Serosanguineous Serosanguineous -Wound Margin Distinct, Distinct, Indistinct, Non Outline Outline -Visible Attached Attached -Granulation Amt Medium (34-66%) Large (67-100%) Large (67-100%) -Granulation Quality Red Grampian Grampian -Slough/Fibrin Yes Yes -Necrosis Amt Medium (34-66%) Small (1-33%) Medium (34-66%) -Necrotic Tissue Type Adherent Slough Adherent Slough Adherent Slough -Structure Exposed N/A -Texture (Brandi-wound Skin Appearance) Assessed,Callus Assessed, Assessed Scarring -Moisture (Brandi-wound Skin Appearance) Assessed, Assessed Assessed,Dry/ Maceration Scaly -Color (Brandi-wound Skin Appearance) No Abnormality, Assessed Assessed Assessed -Temperature (Brandi-wound Skin No Abnormality No Abnormality No Abnormality Appearance) (Pt Warm) (Pt Warm) (Pt Warm) -Tenderness on Palpation (Brandi-wound No No No Skin Appearance) -Ulcer Cleansing Rinsed/ Soap and Water Soap and Water Irrigated with Saline -Foul Odor after Cleansing No No No -Anesthetic Used 5% Lidocaine 4% Lidocaine Gel Solution #13 1st and 2nd web space right foot -Combined with other wound No No -Current Size (cm) - Length 2.8 3.5 -Current Size (cm) - Width 2.5 3 -Current Size (cm) - Depth 0.1 0.1 -Total Square Cm 7.00 10.5 -Date of Last Picture (Recall this 07/07/21 field) -Photo Taken Yes No No -Epithelialization Small 1-33% None Present -Tunneling No No No -Undermining/Tunneling No No No -Circular Undermining No No No -Exudate Amt Small Medium Small -Exudate Type Serosanguineous Serosanguineous Serosanguineous -Wound Margin Distinct, Distinct, Indistinct, Non Outline Outline -Visible Attached Attached -Granulation Amt Medium (34-66%) Large (67-100%) Medium (34-66%) -Granulation Quality Red Grampian Red -Slough/Fibrin Yes Yes -Necrosis Amt Medium (34-66%) Small (1-33%) Medium (34-66%) -Necrotic Tissue Type Adherent Slough Adherent Slough Adherent Slough -Structure Exposed N/A -Texture (Brandi-wound Skin Appearance) Assessed,Callus Assessed, Assessed, ,Scarring Scarring Localized Edema -Moisture (Brandi-wound Skin Appearance) Assessed, Assessed, Assessed,Dry/ Maceration Maceration Scaly -Color (Brandi-wound Skin Appearance) No Abnormality, Assessed Assessed Assessed -Temperature (Brandi-wound Skin No Abnormality No Abnormality No Abnormality Appearance) (Pt Warm) (Pt Warm) (Pt Warm) -Tenderness on Palpation (Brandi-wound No No No Skin Appearance) -Ulcer Cleansing Rinsed/ Soap and Water Soap and Water Irrigated with Saline -Foul Odor after Cleansing No No No -Anesthetic Used 5% Lidocaine 4% Lidocaine Gel Solution #12 Right Dorsal Foot -Combined with other wound No No -Current Size (cm) - Length 8.5 9 -Current Size (cm) - Width 5.7 6 -Current Size (cm) - Depth 0.1 0.1 -Total Square Cm 48.45 54 -Date of Last Picture (Recall this 07/07/21 field) -Photo Taken Yes No -Epithelialization None Present -Tunneling No No No -Undermining/Tunneling No No No -Circular Undermining No No No -Change in Wound Grade/Stage -Exudate Amt Medium Large Large -Exudate Type Serosanguineous Serosanguineous Yellow/Green -Wound Margin Distinct, Distinct, Flat & Intact Outline Outline Attached Attached -Granulation Amt Medium (34-66%) Large (67-100%) Large (67-100%) -Granulation Quality Red Grampian Grampian -Slough/Fibrin Yes Yes -Necrosis Amt Medium (34-66%) Medium (34-66%) Small (1-33%) -Necrotic Tissue Type Adherent Slough Adherent Slough Adherent Slough -Structure Exposed N/A -Texture (Brandi-wound Skin Appearance) Assessed,Callus Assessed, Assessed, Scarring Induration -Moisture (Brandi-wound Skin Appearance) Assessed, Assessed, Assessed, Maceration Maceration Maceration -Color (Brandi-wound Skin Appearance) No Abnormality, Assessed,Palor Assessed Assessed -Temperature (Brandi-wound Skin No Abnormality No Abnormality No Abnormality Appearance) (Pt Warm) (Pt Warm) (Pt Warm) -Tenderness on Palpation (Brandi-wound No No No Skin Appearance) -Ulcer Cleansing Rinsed/ Soap and Water Soap and Water Irrigated with Saline -Foul Odor after Cleansing No No No -Anesthetic Used 5% Lidocaine 4% Lidocaine Gel Solution Lower Limb Edema Present No Right Calf (cm) 41.4 39.7 Right Ankle (cm) 30 28.4 Left Calf (cm) 40 Left Ankle (cm) 29.2 07/21/21 08:39 Wound Center Nurse 1 #14 2nd and 3rd web space right foot -Combined with other wound No -Current Size (cm) - Length 3 -Current Size (cm) - Width 1.5 -Current Size (cm) - Depth 0.1 -Total Square Cm 4.5 -Date of Last Picture (Recall this field) -Photo Taken Yes -Epithelialization None Present -Tunneling No -Undermining/Tunneling No -Circular Undermining No -Classification - Monahan Grading ( Grade 2 Diabetic Ulcer) -Exudate Amt Small -Exudate Type Serosanguineous -Wound Margin Distinct, Outline Attached -Granulation Amt Small (1-33%) -Granulation Quality Grampian -Slough/Fibrin Yes -Necrosis Amt Large (67-100%) -Necrotic Tissue Type Adherent Slough -Structure Exposed -Texture (Brandi-wound Skin Appearance) Assessed, Friable -Moisture (Brandi-wound Skin Appearance) Assessed, Maceration -Color (Brandi-wound Skin Appearance) No Abnormality, Assessed -Temperature (Brandi-wound Skin No Abnormality Appearance) (Pt Warm) -Tenderness on Palpation (Brandi-wound Yes Skin Appearance) -Ulcer Cleansing Rinsed/ Irrigated with Saline -Foul Odor after Cleansing No -Anesthetic Used 4% Lidocaine Solution #13 1st and 2nd web space right foot -Combined with other wound No -Current Size (cm) - Length 1 -Current Size (cm) - Width 1 -Current Size (cm) - Depth 0.1 -Total Square Cm 1 -Date of Last Picture (Recall this 07/21/21 field) -Photo Taken Yes -Epithelialization None Present -Tunneling No -Undermining/Tunneling No -Circular Undermining No -Exudate Amt Small -Exudate Type Serosanguineous -Wound Margin Distinct, Outline Attached -Granulation Amt Small (1-33%) -Granulation Quality N/A -Slough/Fibrin Yes -Necrosis Amt Medium (34-66%) -Necrotic Tissue Type Adherent Slough -Structure Exposed N/A -Texture (Brandi-wound Skin Appearance) Assessed -Moisture (Brandi-wound Skin Appearance) Assessed, Maceration -Color (Brandi-wound Skin Appearance) No Abnormality, Assessed -Temperature (Brandi-wound Skin No Abnormality Appearance) (Pt Warm) -Tenderness on Palpation (Brandi-wound No Skin Appearance) -Ulcer Cleansing Soap and Water -Foul Odor after Cleansing No -Anesthetic Used 4% Lidocaine Solution #12 Right Dorsal Foot -Combined with other wound No -Current Size (cm) - Length 9 -Current Size (cm) - Width 5 -Current Size (cm) - Depth 0.1 -Total Square Cm 45 -Date of Last Picture (Recall this 07/21/21 field) -Photo Taken Yes -Epithelialization None Present -Tunneling No -Undermining/Tunneling No -Circular Undermining No -Change in Wound Grade/Stage No -Exudate Amt Medium -Exudate Type Serosanguineous -Wound Margin Distinct, Outline Attached -Granulation Amt Large (67-100%) -Granulation Quality Grampian -Slough/Fibrin Yes -Necrosis Amt Medium (34-66%) -Necrotic Tissue Type Adherent Slough -Structure Exposed N/A -Texture (Brandi-wound Skin Appearance) No Abnormality, Assessed -Moisture (Brandi-wound Skin Appearance) No Abnormality, Assessed -Color (Brandi-wound Skin Appearance) No Abnormality, Assessed -Temperature (Brandi-wound Skin No Abnormality Appearance) (Pt Warm) -Tenderness on Palpation (Brandi-wound No Skin Appearance) -Ulcer Cleansing Soap and Water -Foul Odor after Cleansing -Anesthetic Used 4% Lidocaine Solution Lower Limb Edema Present Right Calf (cm) 38 Right Ankle (cm) 29 Left Calf (cm) Left Ankle (cm) WC - Nurse 2 - General Ulcer CM Notes Start: 07/07/21 09:34 Freq: Status: Active Protocol: Activity Type Activity Date Activity User E-Sign Co-Sign Detail Recorded Client Recorded Date Recorded By Document 07/07/21 13:28 PL [id number] 07/07/21 13:31 PL Document 07/14/21 09:44 [id number] 07/14/21 09:53 MOSHE 07/07/21 07/14/21 13:28 09:44 Wound Center Nurse 2 #14 2nd and 3rd web space right foot -Time 09:47 -Correct Patient Yes -Correct Side, Site, Position Yes -Correct Procedure Yes -Procedure Performed No Yes -Type of Procedure Debridement -Clinical Debridement Subcutaneous -Tissue Removed Subcutaneous -Post Debridement (cm) - Length 2.5 -Post Debridement (cm) - Width 1.2 -Post Debridement (cm) - Depth 0.1 -Total Square (Post) (cm) 3.00 -Area of Debridement (cm) - Length 2.5 -Area of Debridement (cm) - Width 1.2 -Total Square (Area) (cm) 3.00 -Tunneling No -Undermining/Tunneling No -Circular Undermining No -Wound/Ulcer Outcome Not Healed -Ulcer Cleansing Rinsed/ Irrigated with Saline -Foul Odor after Cleansing No -Bioengineered Tissue No -Bleeding Controlled with Pressure -Treatment Response Procedure Tolerated Well -Offloading No -Debridement - Subq, 1st 20sq cm No #13 1st and 2nd web space right foot -Time 09:47 -Correct Patient Yes -Correct Side, Site, Position Yes -Correct Procedure Yes -Procedure Performed No Yes -Type of Procedure Debridement -Clinical Debridement Subcutaneous -Tissue Removed Subcutaneous -Post Debridement (cm) - Length 3.6 -Post Debridement (cm) - Width 3 -Post Debridement (cm) - Depth 0.1 -Total Square (Post) (cm) 10.8 -Area of Debridement (cm) - Length 3.6 -Area of Debridement (cm) - Width 3.0 -Total Square (Area) (cm) 10.80 -Tunneling No -Undermining/Tunneling No -Circular Undermining No -Wound/Ulcer Outcome Not Healed -Ulcer Cleansing Rinsed/ Irrigated with Saline -Foul Odor after Cleansing No -Bioengineered Tissue No -Bleeding Controlled with Pressure -Treatment Response Procedure Tolerated Well -Offloading No -Debridement - Subq, 1st 20sq cm No #12 Right Dorsal Foot -Time 10:13 09:47 -Correct Patient Yes Yes -Correct Side, Site, Position Yes Yes -Correct Procedure Yes Yes -Procedure Performed Yes Yes -Type of Procedure Debridement Debridement -Clinical Debridement Subcutaneous Subcutaneous -Tissue Removed Subcutaneous Subcutaneous -Post Debridement (cm) - Length 8.5 9 -Post Debridement (cm) - Width 5.7 6.1 -Post Debridement (cm) - Depth 0.1 0.1 -Total Square (Post) (cm) 48.45 54.9 -Area of Debridement (cm) - Length 8.5 9.0 -Area of Debridement (cm) - Width 5.7 6.1 -Total Square (Area) (cm) 48.45 54.90 -Tunneling No No -Undermining/Tunneling No No -Circular Undermining No No -Wound/Ulcer Outcome Not Healed Not Healed -Ulcer Cleansing Rinsed/ Rinsed/ Irrigated with Irrigated with Saline Saline -Foul Odor after Cleansing No No -Bioengineered Tissue No No -Bleeding Controlled with Pressure Pressure -Treatment Response Procedure Procedure Tolerated Well Tolerated Well -Offloading No -Debridement - Subq, 1st 20sq cm Yes Yes -Debridement, SubQ, ea addt'l 20sq cm 2 2 or part thereof Pain Scale: 0-10 Numeric Is Patient Pain Free? Yes Yes WC - Nurse 3 - General Ulcer D/C NN Start: 07/07/21 09:34 Freq: Status: Active Protocol: Activity Type Activity Date Activity User E-Sign Co-Sign Detail Recorded Client Recorded Date Recorded By Document 07/07/21 12:13 AK [id number] 07/07/21 12:16 AK Document 07/14/21 10:01 AK [id number] 07/14/21 10:04 AK Edit Result 07/14/21 10:01 AK (1) [id number] 07/18/21 09:08 PL Document 07/18/21 11:07 JF [id number] 07/18/21 11:11 JF (1) Right - Multi-Layered Wrap Application => Unna Boot - Right => ($) 07/07/21 07/14/21 07/18/21 12:13 10:01 11:07 Wound Care Nurse 3 #14 2nd and 3rd web space right foot -Ulcer Cleansing Rinsed/ Rinsed/ Rinsed/ Irrigated with Irrigated with Irrigated with Saline Saline Saline -Foul Odor after Cleansing No No -Negative Pressure Wound Therapy N/A -Primary Dressing Applied Aquacel AG 4x4, Aquacel AG 4x4 Silvercel NonAdherent Contact Layer -Primary Dressing Covered/Secured with Dry Gauze Dry Gauze Dry Gauze & Roll Gauze, Secured with Tape -Aquacel AG 4x4 1 1 -Silvercel 0 #13 1st and 2nd web space right foot -Ulcer Cleansing Rinsed/ Rinsed/ Rinsed/ Irrigated with Irrigated with Irrigated with Saline Saline Saline -Foul Odor after Cleansing No No -Negative Pressure Wound Therapy N/A -Primary Dressing Applied Aquacel AG 4x4, Aquacel AG 4x4 Silvercel NonAdherent Contact Layer -Primary Dressing Covered/Secured with Dry Gauze Dry Gauze, Dry Gauze & Secured with Roll Gauze, Tape Secured with Tape -Aquacel AG 4x4 0 0 -Silvercel 0 #12 Right Dorsal Foot -Ulcer Cleansing Rinsed/ Rinsed/ Soap and Water Irrigated with Irrigated with Saline Saline -Foul Odor after Cleansing No No -Negative Pressure Wound Therapy N/A N/A -Primary Dressing Applied Aquacel AG 4x4, Aquacel AG 4x4, Optilok 6.5x10, NonAdherent Optilok 6.5x10 Silvercel Contact Layer, Optilok 8x12 -Other Dressing opti- between layers -Primary Dressing Covered/Secured with Secured with Tape -Aquacel AG 4x4 0 0 -Optilok 6.5x10 1 1 -Optilok 8x12 1 -Silvercel 0 Right -Multi-Layered Wrap Application Unna Boot - Unna Boot - Unna Boot - Right ($) Right ($) Right ($) -Stockings No Vital Signs Temperature (97.8 F-99.1 F) 96.5 F L Temperature Source Temporal Pulse Rate (60-100) 68 Pulse Location Monitor Respiratory Rate (12-18) 18 Respiratory rate source Observation Blood Pressure (90/60-120/80) 111/67 Blood Pressure Mean (mm Hg) 81 Source Monitor Position Sitting Blood Pressure Location Left Arm Pain Scale: 0-10 Numeric Is Patient Pain Free? Yes Yes Yes WC - Visit Discharge Discharge Condition Stable Stable Stable Ambulatory Status Ambulatory Ambulatory Walker Transportation [employer] CALLED [employer] FOR TRANSPOR Medication Reconcilliation completed & Yes Yes No provided to patient/care provider Clinical Summary of Care Provided Yes Yes No Additional Wound Wound debrided: First and second web spaces Laterality: Right Wound Grade/Stage: Monahan stage I Type of Debridement: Excisional debridement Anesthesia Used: 5% Lidocaine Gel Depth: Down to and including healthy tissue and in the subcutaneous layer Percentage of wound debrided: 100 Instrument Used: - (4 x 4 gauze) Tissue Removed: Fibrous, devitalized subcutaneous, biofilm, slough Severity: Fat Layer Exposed Amount of bleeding with debridement: Mild Bleeding Controlled with: Compression and gauze Patient tolerated procedure: Patient tolerated procedure well Assessment/Plan Assessment/Plan (1) Ulcer of right foot with fat layer exposed: CODE(S): L97.512 - Non-pressure chronic ulcer of other part of right foot with fat layer exposed (2) Obesity (BMI 30.0-34.9): CODE(S): E66.9 - Obesity, unspecified (3) Tobacco abuse: CODE(S): Z72.0 - Tobacco use (4) Bipolar disorder: CODE(S): F31.9 - Bipolar disorder, unspecified QUALIFIERS: Active/Remission status: remission status unspecified Qualified Code(s): F31.9 - Bipolar disorder, unspecified (5) Venous insufficiency (chronic) (peripheral): CODE(S): I87.2 - Venous insufficiency (chronic) (peripheral) (6) Nonhealing nonsurgical wound limited to breakdown of skin: CODE(S): T14.8XXA - Other injury of unspecified body region, initial encounter (7) Bilateral edema of lower extremity: CODE(S): R60.0 - Localized edema PLAN: Patient seen and evaluated. I reviewed and discussed his case today. Debridement was performed today with Misonix as noted in the clinical panel to all of the ulcer sites. He tolerated this well. Dorsal lateral right foot ulceration secondary to chronic venous insufficiency as well as significant maceration of the first and second webspace of the right foot with peeling complicated by chronic tobacco abuse. He is instructed to continue elevating his feet at times of rest. His wound site is making good progress and continuing to demonstrate epithelialization at the dorsal lateral aspect of the foot wound. The following work up and care recommendations were made: Dressing: Adaptic to the wound bed, Aquacel Ag, Suprasorb, Unna boot. Aquacel rope AG between the toes with ABD padding, dressing between toes changed daily Wash: Soap and water Tissue growth optimization: None Offload: Elevate lower extremities at all times of rest Vascular: Arterial studies 04/19/[address] Lott demonstrate venous insufficiency, triphasic flow PATRICE 1.31 right and 1.41 left Edema: Elevate lower extremities at all times of rest, compression dressing Infection: No signs of infection. Pain: Well controlled today Host factors: He was advised on smoking cessation and how this will delay his wound healing. He states that he will not stop smoking and refuses to do so. His wound sites are still macerated at the first and second webspace, modification to dressings was performed to better control the maceration. If he is still experiencing maceration at next visit I will consider a topical paint to be applied between the digits to aid in drying. He was instructed to maintain adequate protein intake to aid in his wound healing. I answered all the patient's questions. To return to the wound healing center in 1 week or call sooner if the patient has any questions or concerns. Note: [employer] speech recognition senior attorney software was used to create portions of this document. Sound-alike and misspelled words, as well as other senior attorney errors may be contained in the documentation.
[2021-07-26 11:04] VITALS: BP 146/74; PULSE 70; TEMP 36.4
[2021-07-28 08:06] VITALS: BP 127/73; PULSE 61; RESP 18; TEMP 36.5
--- NOTE | 2021-07-28 09:54 | PN.PCM_ITS ---
History of Present Illness Date of Service: 07/28/21 Chief Complaint: Left and right foot maceration and dorsal foot ulcers History of Wound: This 60-year-old male with significant past medical history of bipolar disorder presents complaining of a left and right foot previous foot moisture and skin ulcers. He denies fever, chill, nausea, vomiting. He denies odor or drainage. He has discontinue dressing care and relates both feet are healed. He also completed a course of antibiotics. Subjective Subjective This is a 61-year-old man with significant past medical history of bipolar disorder presents to the wound care center today for follow up of right foot macerated webspaces and skin ulcer dorsal foot secondary to chronic venous insufficiency. He denies any constitutional symptoms today. He states his assisted living facility has been changing the dressings between his toes daily. He has no other complaints today. Objective Data Objective Data Vital Signs: Vital Signs Temp Pulse Resp BP 97.7 F L 61 18 127/73 H 07/28/21 08:06 07/28/21 08:06 07/28/21 08:06 07/28/21 08:06 Oxygen Delivery Method Room Air Physical Exam Const alert and oriented x3 General Appearance: cooperative HEENT normocephalic Eyes General Eye: normal appearance of both eyes Neck General: normal visual inspection Lymph Lymphatic: no lymphadenopathy noted and no lymphedema noted Chest inspection of chest normal Resp normal respiratory effort Cardio regular rate and regular rhythm Extremity normal capillary refill and no calf tenderness Extremity Narrative: He has diminished pulses DP and PT bilateral. Muscle wasting noted bilateral Moderate nonpitting edema of bilateral extremities with varicosities and some hyperpigmentation of the lower extremity and dorsal foot General Extremity: no tenderness to palpation of joints or extremities; Negative for cyanosis Skin no rashes or lesions noted and no jaundice General Skin Exam: Negative for erythema Wound Narrative: Superficial ulceration noted to the dorsal lateral right foot with yellow fibrous tissue covering the wound bed. Evidence of epithelialization at the lateral aspect of the wound. No purulent drainage, no streaking, no odor, no maceration, or other local signs of infection. No drainage. Webspace one and webspace two of the right foot demonstrates significant maceration with superficial abrasion to the medial third digit, medial and lateral second digit, plantar second digit, and medial hallux. No signs of infection. Neuro moves all extremities Neuro Narrative: Decreased epicritic sensation via light touch consistent with neuropathy status. Psych cooperative and affect normal Debridement Note Debridement Note Wound debrided: Dorsal lateral foot Laterality: Right Wound Grade/Stage: Monahan stage I Type of Debridement: Excisional debridement Anesthesia Used: 5% Lidocaine Gel Depth: Down to and including healthy tissue and in the subcutaneous layer Percentage of wound debrided: 100 Instrument Used: - (Outcome Referralsonix ultrasonic debrider) Tissue Removed: Fibrous, devitalized subcutaneous, biofilm, slough Severity: Fat Layer Exposed Amount of bleeding with debridement: Mild Bleeding Controlled with: Compression and gauze Patient tolerated procedure: Patient tolerated procedure well Post-Debridement Measurements and Additional Note: Post-Debridement Measurements/Treatment [facility] Nurse 1 - General Ulcer Assessment Start: 07/07/21 09:34 Freq: Status: Active Protocol: DOAR Activity Type Activity Date Activity User E-Sign Co-Sign Detail Recorded Client Recorded Date Recorded By Document 07/07/21 09:34 [facility] [id number] 07/07/21 09:47 [facility] Document 07/14/21 09:24 MA [id number] 07/14/21 09:34 AK Document 07/18/21 11:07 [id number] 07/18/21 11:11 JF Document 07/21/21 08:39 AK [id number] 07/21/21 08:51 AK Document 07/26/21 11:04 KR [id number] 07/26/21 11:18 KR Document 07/28/21 08:06 MT [id number] 07/28/21 08:18 MT 07/07/21 07/14/21 07/18/21 09:34 09:24 11:07 - Today's Visit Information Type of service Initial Visit Follow-up Visit Nurse-only (Physician/GEL [employer]ER Visit ) Arrival Mode Ambulatory, Ambulatory, Ambulatory Walker Walker Transfer Assistance None Accompanied by Patient Identification Verified (Name & Yes Yes No ) Patient Requires Transmission-Based No No Precautions Safety Precautions Vital Signs Temperature (97.8 F-99.1 F) 97.6 F L 97.3 F L 96.5 F L Temperature Source Temporal Temporal Temporal Pulse Rate (60-100) 73 71 68 Pulse Location Monitor Monitor Monitor Respiratory Rate (12-18) 18 18 Respiratory rate source Observation Observation Oxygen Delivery Method Room Air Blood Pressure (90/60-120/80) 112/68 114/67 111/67 Blood Pressure Mean (mm Hg) 82 82 81 Source Monitor Monitor Monitor Position Sitting Sitting Sitting Blood Pressure Location Left Arm Left Arm Left Arm History Since Last Visit- (Skip if this is Patient's initial visit) Have you changed medications since your No No last visit? Any new allergies or adverse reactions No No Had a fall/change in ADL's that may No No increase risk of falls Signs or symptoms of abuse and/or No No neglect since last visit Have you been in the hospital since your No No last visit? Has dressing in place as prescribed Yes Yes Has compression in place as prescribed Yes Yes Has offloadiing in place as prescribed Yes Yes Experienced any changes in pain level or No No management Left Footwear Wedge Shoe Custom Shoe Regular Shoe Right Footwear Wedge Shoe Custom Shoe Regular Shoe Pain Scale: 0-10 Numeric Is Patient Pain Free? Yes Yes Yes 07/21/21 07/26/21 07/28/21 08:39 11:04 08:06 - Today's Visit Information Type of service Follow-up Visit Nurse-only (Physician/GEL [employer]AYER Visit ) Arrival Mode Ambulatory, Ambulatory, Ambulatory Walker Walker Transfer Assistance Accompanied by self Patient Identification Verified (Name & Yes Yes Yes ) Patient Requires Transmission-Based No Precautions Safety Precautions NA Vital Signs Temperature (97.8 F-99.1 F) 97.1 F L 97.5 F L 97.7 F L Temperature Source Temporal Temporal Temporal Pulse Rate (60-100) 74 70 61 Pulse Location Monitor Monitor Monitor Respiratory Rate (12-18) 18 Respiratory rate source Observation Oxygen Delivery Method Blood Pressure (90/60-120/80) 114/67 146/74 H 127/73 H Blood Pressure Mean (mm Hg) 82 98 91 Source Monitor Monitor Monitor Position Sitting Sitting Blood Pressure Location Left Arm Right Arm History Since Last Visit- (Skip if this is Patient's initial visit) Have you changed medications since your No No last visit? Any new allergies or adverse reactions No No Had a fall/change in ADL's that may No No increase risk of falls Signs or symptoms of abuse and/or No No neglect since last visit Have you been in the hospital since your No No last visit? Has dressing in place as prescribed Yes Yes Has compression in place as prescribed No Yes Yes Has offloadiing in place as prescribed Yes N/A Yes Experienced any changes in pain level or No No Yes management Left Footwear Surgical Shoe Regular Shoe Regular Shoe with pressure relief insole Right Footwear Surgical Shoe Regular Shoe Regular Shoe with pressure relief insole Pain Scale: 0-10 Numeric Is Patient Pain Free? Yes Yes Yes WC - Nurse 1 - General Ulcer Measurement Start: 07/07/21 09:34 Freq: Status: Active Protocol: Activity Type Activity Date Activity User E-Sign Co-Sign Detail Recorded Client Recorded Date Recorded By Document 07/07/21 09:34 BMF [id number] 07/07/21 09:47 BMF Edit Result 07/07/21 09:34 BMF (1) [id number] 07/07/21 09:53 BMF Document 07/14/21 09:24 AK [id number] 07/14/21 09:34 AK Document 07/18/21 11:07 JF [id number] 07/18/21 11:11 JF Document 07/21/21 08:39 AK [id number] 07/21/21 08:51 AK Document 07/28/21 08:06 MT [id number] 07/28/21 08:18 MT (1) #14 2nd and 3rd web space right foot - Date of Last Picture (Recall this => 07/07/21 field) - Photo Taken => Yes - Tunneling => No - Undermining/Tunneling => No - Circular Undermining => No #13 1st and 2nd web space right foot - Date of Last Picture (Recall this => 07/07/21 field) - Photo Taken => Yes - Tunneling => No - Undermining/Tunneling => No - Circular Undermining => No #12 Right Dorsal Foot - Date of Last Picture (Recall this => 07/07/21 field) - Photo Taken => Yes - Tunneling => No - Undermining/Tunneling => No - Circular Undermining => No 07/07/21 07/14/21 07/18/21 09:34 09:24 11:07 Wound Center Nurse 1 #14 2nd and 3rd web space right foot -Combined with other wound No -Current Size (cm) - Length 2.1 2.5 -Current Size (cm) - Width 1 1 -Current Size (cm) - Depth 0.1 0.1 -Total Square Cm 2.1 2.5 -Date of Last Picture (Recall this 07/07/21 field) -Photo Taken Yes -Epithelialization Small 1-33% -Tunneling No No No -Undermining/Tunneling No No No -Circular Undermining No No No -Classification - Monahan Grading ( Diabetic Ulcer) -Exudate Amt Small Medium Medium -Exudate Type Serosanguineous Serosanguineous Serosanguineous -Wound Margin Distinct, Distinct, Indistinct, Non Outline Outline -Visible Attached Attached -Granulation Amt Medium (34-66%) Large (67-100%) Large (67-100%) -Granulation Quality Red Manilla Manilla -Slough/Fibrin Yes Yes -Necrosis Amt Medium (34-66%) Small (1-33%) Medium (34-66%) -Necrotic Tissue Type Adherent Slough Adherent Slough Adherent Slough -Structure Exposed N/A -Texture (Brandi-wound Skin Appearance) Assessed,Callus Assessed, Assessed Scarring -Moisture (Brandi-wound Skin Appearance) Assessed, Assessed Assessed,Dry/ Maceration Scaly -Color (Brandi-wound Skin Appearance) No Abnormality, Assessed Assessed Assessed -Temperature (Brandi-wound Skin No Abnormality No Abnormality No Abnormality Appearance) (Pt Warm) (Pt Warm) (Pt Warm) -Tenderness on Palpation (Brandi-wound No No No Skin Appearance) -Ulcer Cleansing Rinsed/ Soap and Water Soap and Water Irrigated with Saline -Foul Odor after Cleansing No No No -Anesthetic Used 5% Lidocaine 4% Lidocaine Gel Solution #13 1st and 2nd web space right foot -Combined with other wound No No -Current Size (cm) - Length 2.8 3.5 -Current Size (cm) - Width 2.5 3 -Current Size (cm) - Depth 0.1 0.1 -Total Square Cm 7.00 10.5 -Date of Last Picture (Recall this 07/07/21 field) -Photo Taken Yes No No -Epithelialization Small 1-33% None Present -Tunneling No No No -Undermining/Tunneling No No No -Circular Undermining No No No -Exudate Amt Small Medium Small -Exudate Type Serosanguineous Serosanguineous Serosanguineous -Wound Margin Distinct, Distinct, Indistinct, Non Outline Outline -Visible Attached Attached -Granulation Amt Medium (34-66%) Large (67-100%) Medium (34-66%) -Granulation Quality Red Man[place] Red -Slough/Fibrin Yes Yes -Necrosis Amt Medium (34-66%) Small (1-33%) Medium (34-66%) -Necrotic Tissue Type Adherent Slough Adherent Slough Adherent Slough -Structure Exposed N/A -Texture (Brandi-wound Skin Appearance) Assessed,Callus Assessed, Assessed, ,Scarring Scarring Localized Edema -Moisture (Brandi-wound Skin Appearance) Assessed, Assessed, Assessed,Dry/ Maceration Maceration Scaly -Color (Brandi-wound Skin Appearance) No Abnormality, Assessed Assessed Assessed -Temperature (Brandi-wound Skin No Abnormality No Abnormality No Abnormality Appearance) (Pt Warm) (Pt Warm) (Pt Warm) -Tenderness on Palpation (Brandi-wound No No No Skin Appearance) -Ulcer Cleansing Rinsed/ Soap and Water Soap and Water Irrigated with Saline -Foul Odor after Cleansing No No No -Anesthetic Used 5% Lidocaine 4% Lidocaine Gel Solution #12 Right Dorsal Foot -Combined with other wound No No -Current Size (cm) - Length 8.5 9 -Current Size (cm) - Width 5.7 6 -Current Size (cm) - Depth 0.1 0.1 -Total Square Cm 48.45 54 -Date of Last Picture (Recall this 07/07/21 field) -Photo Taken Yes No -Epithelialization None Present -Tunneling No No No -Undermining/Tunneling No No No -Circular Undermining No No No -Change in Wound Grade/Stage -Exudate Amt Medium Large Large -Exudate Type Serosanguineous Serosanguineous Yellow/Green -Wound Margin Distinct, Distinct, Flat & Intact Outline Outline Attached Attached -Granulation Amt Medium (34-66%) Large (67-100%) Large (67-100%) -Granulation Quality Red Manilla Manilla -Slough/Fibrin Yes Yes -Necrosis Amt Medium (34-66%) Medium (34-66%) Small (1-33%) -Necrotic Tissue Type Adherent Slough Adherent Slough Adherent Slough -Structure Exposed N/A -Texture (Brandi-wound Skin Appearance) Assessed,Callus Assessed, Assessed, Scarring Induration -Moisture (Brandi-wound Skin Appearance) Assessed, Assessed, Assessed, Maceration Maceration Maceration -Color (Brandi-wound Skin Appearance) No Abnormality, Assessed,Palor Assessed Assessed -Temperature (Brandi-wound Skin No Abnormality No Abnormality No Abnormality Appearance) (Pt Warm) (Pt Warm) (Pt Warm) -Tenderness on Palpation (Brandi-wound No No No Skin Appearance) -Ulcer Cleansing Rinsed/ Soap and Water Soap and Water Irrigated with Saline -Foul Odor after Cleansing No No No -Anesthetic Used 5% Lidocaine 4% Lidocaine Gel Solution Lower Limb Edema Present No Right Calf (cm) 41.4 39.7 Right Ankle (cm) 30 28.4 Left Calf (cm) 40 Left Ankle (cm) 29.2 07/21/21 07/28/21 08:39 08:06 Wound Center Nurse 1 #14 2nd and 3rd web space right foot -Combined with other wound No -Current Size (cm) - Length 3 0.1 -Current Size (cm) - Width 1.5 0.1 -Current Size (cm) - Depth 0.1 0.1 -Total Square Cm 4.5 0.01 -Date of Last Picture (Recall this field) -Photo Taken Yes -Epithelialization None Present -Tunneling No -Undermining/Tunneling No -Circular Undermining No -Classification - Monahan Grading ( Grade 2 Diabetic Ulcer) -Exudate Amt Small Medium -Exudate Type Serosanguineous Serosanguineous -Wound Margin Distinct, Flat & Intact Outline Attached -Granulation Amt Small (1-33%) Large (67-100%) -Granulation Quality Manilla Pale,Manilla -Slough/Fibrin Yes -Necrosis Amt Large (67-100%) Small (1-33%) -Necrotic Tissue Type Adherent Slough Adherent Slough -Structure Exposed -Texture (Brandi-wound Skin Appearance) Assessed, Assessed Friable -Moisture (Brandi-wound Skin Appearance) Assessed, Assessed, Maceration Maceration -Color (Brandi-wound Skin Appearance) No Abnormality, Assessed, Assessed Erythema, Hemosiderin Staining -Temperature (Brandi-wound Skin No Abnormality No Abnormality Appearance) (Pt Warm) (Pt Warm) -Tenderness on Palpation (Brandi-wound Yes No Skin Appearance) -Ulcer Cleansing Rinsed/ Soap and Water Irrigated with Saline -Foul Odor after Cleansing No -Anesthetic Used 4% Lidocaine 4% Lidocaine Solution Solution #13 1st and 2nd web space right foot -Combined with other wound No -Current Size (cm) - Length 1 4 -Current Size (cm) - Width 1 1 -Current Size (cm) - Depth 0.1 0.1 -Total Square Cm 1 4 -Date of Last Picture (Recall this 07/21/21 field) -Photo Taken Yes -Epithelialization None Present -Tunneling No -Undermining/Tunneling No -Circular Undermining No -Exudate Amt Small Small -Exudate Type Serosanguineous Serosanguineous -Wound Margin Distinct, Flat & Intact Outline Attached -Granulation Amt Small (1-33%) Large (67-100%) -Granulation Quality N/A Pale,Manilla -Slough/Fibrin Yes -Necrosis Amt Medium (34-66%) Small (1-33%) -Necrotic Tissue Type Adherent Slough Adherent Slough -Structure Exposed N/A -Texture (Brandi-wound Skin Appearance) Assessed Assessed -Moisture (Brandi-wound Skin Appearance) Assessed, Assessed, Maceration Maceration -Color (Brandi-wound Skin Appearance) No Abnormality, Assessed, Assessed Erythema, Hemosiderin Staining -Temperature (Brandi-wound Skin No Abnormality No Abnormality Appearance) (Pt Warm) (Pt Warm) -Tenderness on Palpation (Brandi-wound No No Skin Appearance) -Ulcer Cleansing Soap and Water Rinsed/ Irrigated with Saline -Foul Odor after Cleansing No -Anesthetic Used 4% Lidocaine 4% Lidocaine Solution Solution #12 Right Dorsal Foot -Combined with other wound No -Current Size (cm) - Length 9 14.3 -Current Size (cm) - Width 5 11 -Current Size (cm) - Depth 0.1 0.1 -Total Square Cm 45 157.3 -Date of Last Picture (Recall this 07/21/21 field) -Photo Taken Yes -Epithelialization None Present -Tunneling No -Undermining/Tunneling No -Circular Undermining No -Change in Wound Grade/Stage No -Exudate Amt Medium Small -Exudate Type Serosanguineous Serosanguineous -Wound Margin Distinct, Flat & Intact Outline Attached -Granulation Amt Large (67-100%) Medium (34-66%) -Granulation Quality Manilla Pale,Manilla -Slough/Fibrin Yes -Necrosis Amt Medium (34-66%) Medium (34-66%) -Necrotic Tissue Type Adherent Slough Adherent Slough -Structure Exposed N/A -Texture (Brandi-wound Skin Appearance) No Abnormality, Assessed Assessed -Moisture (Brandi-wound Skin Appearance) No Abnormality, Assessed, Assessed Maceration -Color (Brandi-wound Skin Appearance) No Abnormality, Assessed, Assessed Erythema, Hemosiderin Staining -Temperature (Brandi-wound Skin No Abnormality No Abnormality Appearance) (Pt Warm) (Pt Warm) -Tenderness on Palpation (Brandi-wound No No Skin Appearance) -Ulcer Cleansing Soap and Water Rinsed/ Irrigated with Saline -Foul Odor after Cleansing -Anesthetic Used 4% Lidocaine 5% Lidocaine Solution Gel Lower Limb Edema Present Right Calf (cm) 38 38 Right Ankle (cm) 29 29 Left Calf (cm) Left Ankle (cm) WC - Nurse 2 - General Ulcer CM Notes Start: 07/07/21 09:34 Freq: Status: Active Protocol: Activity Type Activity Date Activity User E-Sign Co-Sign Detail Recorded Client Recorded Date Recorded By Document 07/07/21 13:28 [id number] 07/07/21 13:31 PL Document 07/14/21 09:44 [id number] 07/14/21 09:53 Document 07/21/21 13:44 [id number] 07/21/21 13:48 PL 07/07/21 07/14/21 07/21/21 13:28 09:44 13:44 Wound Center Nurse 2 #14 2nd and 3rd web space right foot -Time 09:47 09:01 -Correct Patient Yes Yes -Correct Side, Site, Position Yes Yes -Correct Procedure Yes Yes -Procedure Performed No Yes Yes -Type of Procedure Debridement Debridement -Clinical Debridement Subcutaneous Subcutaneous -Tissue Removed Subcutaneous Subcutaneous -Post Debridement (cm) - Length 2.5 3.0 -Post Debridement (cm) - Width 1.2 1.5 -Post Debridement (cm) - Depth 0.1 0.1 -Total Square (Post) (cm) 3.00 4.50 -Area of Debridement (cm) - Length 2.5 3.0 -Area of Debridement (cm) - Width 1.2 1.5 -Total Square (Area) (cm) 3.00 4.50 -Tunneling No No -Undermining/Tunneling No No -Circular Undermining No No -Wound/Ulcer Outcome Not Healed Not Healed -Ulcer Cleansing Rinsed/ Rinsed/ Irrigated with Irrigated with Saline Saline -Foul Odor after Cleansing No No -Bioengineered Tissue No No -Bleeding Controlled with Pressure Pressure -Treatment Response Procedure Procedure Tolerated Well Tolerated Well -Offloading No -Debridement - Subq, 1st 20sq cm No No #13 1st and 2nd web space right foot -Time 09:47 09:01 -Correct Patient Yes Yes -Correct Side, Site, Position Yes Yes -Correct Procedure Yes Yes -Procedure Performed No Yes Yes -Type of Procedure Debridement Debridement -Clinical Debridement Subcutaneous Subcutaneous -Tissue Removed Subcutaneous Subcutaneous -Post Debridement (cm) - Length 3.6 1.0 -Post Debridement (cm) - Width 3 1.0 -Post Debridement (cm) - Depth 0.1 0.1 -Total Square (Post) (cm) 10.8 1.00 -Area of Debridement (cm) - Length 3.6 1 -Area of Debridement (cm) - Width 3.0 1 -Total Square (Area) (cm) 10.80 1 -Tunneling No No -Undermining/Tunneling No No -Circular Undermining No No -Wound/Ulcer Outcome Not Healed Not Healed -Ulcer Cleansing Rinsed/ Rinsed/ Irrigated with Irrigated with Saline Saline -Foul Odor after Cleansing No No -Bioengineered Tissue No No -Bleeding Controlled with Pressure Pressure -Treatment Response Procedure Procedure Tolerated Well Tolerated Well -Offloading No -Debridement - Subq, 1st 20sq cm No No #12 Right Dorsal Foot -Time 10:13 09:47 09:01 -Correct Patient Yes Yes Yes -Correct Side, Site, Position Yes Yes Yes -Correct Procedure Yes Yes Yes -Procedure Performed Yes Yes Yes -Type of Procedure Debridement Debridement Debridement -Clinical Debridement Subcutaneous Subcutaneous Subcutaneous -Tissue Removed Subcutaneous Subcutaneous Subcutaneous -Post Debridement (cm) - Length 8.5 9 9.0 -Post Debridement (cm) - Width 5.7 6.1 5.0 -Post Debridement (cm) - Depth 0.1 0.1 0.1 -Total Square (Post) (cm) 48.45 54.9 45.00 -Area of Debridement (cm) - Length 8.5 9.0 9.0 -Area of Debridement (cm) - Width 5.7 6.1 5.0 -Total Square (Area) (cm) 48.45 54.90 45.00 -Tunneling No No No -Undermining/Tunneling No No No -Circular Undermining No No No -Wound/Ulcer Outcome Not Healed Not Healed Not Healed -Ulcer Cleansing Rinsed/ Rinsed/ Rinsed/ Irrigated with Irrigated with Irrigated with Saline Saline Saline -Foul Odor after Cleansing No No No -Bioengineered Tissue No No No -Bleeding Controlled with Pressure Pressure Pressure -Treatment Response Procedure Procedure Procedure Tolerated Well Tolerated Well Tolerated Well -Offloading No -Debridement - Subq, 1st 20sq cm Yes Yes Yes -Debridement, SubQ, ea addt'l 20sq cm 2 2 2 or part thereof Pain Scale: 0-10 Numeric Is Patient Pain Free? Yes Yes Yes WC - Nurse 3 - General Ulcer D/C NN Start: 07/07/21 09:34 Freq: Status: Active Protocol: Activity Type Activity Date Activity User E-Sign Co-Sign Detail Recorded Client Recorded Date Recorded By Document 07/07/21 12:13 AK [id number] 07/07/21 12:16 AK Document 07/14/21 10:01 AK [id number] 07/14/21 10:04 AK Edit Result 07/14/21 10:01 AK (1) [id number] 07/18/21 09:08 PL Document 07/18/21 11:07 JF [id number] 07/18/21 11:11 JF Document 07/21/21 12:04 AK [id number] 07/21/21 12:07 AK Document 07/26/21 11:04 KR [id number] 07/26/21 11:18 KR Document 07/28/21 09:49 KR [id number] 07/28/21 09:50 KR (1) Right - Multi-Layered Wrap Application => Unna Boot - Right => ($) 07/07/21 07/14/21 07/18/21 12:13 10:01 11:07 Wound Care Nurse 3 #14 2nd and 3rd web space right foot -Ulcer Cleansing Rinsed/ Rinsed/ Rinsed/ Irrigated with Irrigated with Irrigated with Saline Saline Saline -Foul Odor after Cleansing No No -Negative Pressure Wound Therapy N/A -Primary Dressing Applied Aquacel AG 4x4, Aquacel AG 4x4 Silvercel NonAdherent Contact Layer -Other Dressing -Primary Dressing Covered/Secured with Dry Gauze Dry Gauze Dry Gauze & Roll Gauze, Secured with Tape -Aquacel AG 4x4 1 1 -Aquacel Rope -Silvercel 0 #13 1st and 2nd web space right foot -Ulcer Cleansing Rinsed/ Rinsed/ Rinsed/ Irrigated with Irrigated with Irrigated with Saline Saline Saline -Foul Odor after Cleansing No No -Negative Pressure Wound Therapy N/A -Primary Dressing Applied Aquacel AG 4x4, Aquacel AG 4x4 Silvercel NonAdherent Contact Layer -Primary Dressing Covered/Secured with Dry Gauze Dry Gauze, Dry Gauze & Secured with Roll Gauze, Tape Secured with Tape -Aquacel AG 4x4 0 0 -Aquacel Rope -Silvercel 0 #12 Right Dorsal Foot -Ulcer Cleansing Rinsed/ Rinsed/ Soap and Water Irrigated with Irrigated with Saline Saline -Foul Odor after Cleansing No No -Negative Pressure Wound Therapy N/A N/A -Primary Dressing Applied Aquacel AG 4x4, Aquacel AG 4x4, Optilok 6.5x10, NonAdherent Optilok 6.5x10 Silvercel Contact Layer, Optilok 8x12 -Other Dressing opti- between layers -Primary Dressing Covered/Secured with Secured with Tape -Aquacel Extra -Aquacel AG 4x4 0 0 -Optilok 6.5x10 1 1 -Optilok 8x12 1 -Silvercel 0 Right -Multi-Layered Wrap Application Unna Boot - Unna Boot - Unna Boot - Right ($) Right ($) Right ($) -Stockings No Vital Signs Temperature (97.8 F-99.1 F) 96.5 F L Temperature Source Temporal Pulse Rate (60-100) 68 Pulse Location Monitor Respiratory Rate (12-18) 18 Respiratory rate source Observation Blood Pressure (90/60-120/80) 111/67 Blood Pressure Mean (mm Hg) 81 Source Monitor Position Sitting Blood Pressure Location Left Arm Pain Scale: 0-10 Numeric Is Patient Pain Free? Yes Yes Yes WC - Visit Discharge Discharge Condition Stable Stable Stable Ambulatory Status Ambulatory Ambulatory Walker Transportation Private Auto Private Auto CALLED [employer] FOR TRANSPOR Medication Reconcilliation completed & Yes Yes No provided to patient/care provider Clinical Summary of Care Provided Yes Yes No 07/21/21 07/26/21 07/28/21 12:04 11:04 09:49 Wound Care Nurse 3 #14 2nd and 3rd web space right foot -Ulcer Cleansing Rinsed/ Rinsed/ Irrigated with Irrigated with Saline Saline -Foul Odor after Cleansing No -Negative Pressure Wound Therapy N/A -Primary Dressing Applied Aquacel Rope Aquacel Rope -Other Dressing ABD -Primary Dressing Covered/Secured with Dry Gauze & Dry Gauze,Dry Roll Gauze, Gauze & Roll Secured with Gauze,Secured Tape with Tape -Aquacel AG 4x4 -Aquacel Rope 1 1 -Silvercel #13 1st and 2nd web space right foot -Ulcer Cleansing Rinsed/ Irrigated with Saline -Foul Odor after Cleansing No -Negative Pressure Wound Therapy N/A -Primary Dressing Applied Aquacel Rope -Primary Dressing Covered/Secured with Dry Gauze & Roll Gauze, Secured with Tape -Aquacel AG 4x4 -Aquacel Rope 0 -Silvercel #12 Right Dorsal Foot -Ulcer Cleansing Rinsed/ Rinsed/ Irrigated with Irrigated with Saline Saline -Foul Odor after Cleansing No -Negative Pressure Wound Therapy N/A -Primary Dressing Applied Aquacel AG 4x4, Aquacel Extra, Optilok 6.5x10 Optilok 6.5x10 -Other Dressing -Primary Dressing Covered/Secured with Dry Gauze, Secured with Tape -Aquacel Extra 1 -Aquacel AG 4x4 1 -Optilok 6.5x10 1 1 -Optilok 8x12 -Silvercel Right -Multi-Layered Wrap Application Unna Boot - Unna Boot - Unna Boot - Right ($) Right ($) Right ($) -Stockings Vital Signs Temperature (97.8 F-99.1 F) 97.5 F L Temperature Source Temporal Pulse Rate (60-100) 70 Pulse Location Monitor Respiratory Rate (12-18) Respiratory rate source Blood Pressure (90/60-120/80) 146/74 H Blood Pressure Mean (mm Hg) 98 Source Monitor Position Sitting Blood Pressure Location Left Arm Pain Scale: 0-10 Numeric Is Patient Pain Free? Yes Yes Yes WC - Visit Discharge Discharge Condition Stable Stable Ambulatory Status Walker Walker Transportation Private Auto Medication Reconcilliation completed & Yes provided to patient/care provider Clinical Summary of Care Provided Yes Assessment/Plan Assessment/Plan (1) Ulcer of right foot with fat layer exposed: CODE(S): L97.512 - Non-pressure chronic ulcer of other part of right foot with fat layer exposed (2) Obesity (BMI 30.0-34.9): CODE(S): E66.9 - Obesity, unspecified (3) Tobacco abuse: CODE(S): Z72.0 - Tobacco use (4) Bipolar disorder: CODE(S): F31.9 - Bipolar disorder, unspecified QUALIFIERS: Active/Remission status: remission status unspecified Qualified Code(s): F31.9 - Bipolar disorder, unspecified (5) Venous insufficiency (chronic) (peripheral): CODE(S): I87.2 - Venous insufficiency (chronic) (peripheral) (6) Nonhealing nonsurgical wound limited to breakdown of skin: CODE(S): T14.8XXA - Other injury of unspecified body region, initial encounter (7) Bilateral edema of lower extremity: CODE(S): R60.0 - Localized edema PLAN: Patient seen and evaluated. I reviewed and discussed his case today. Debridement was performed today with Misonix as noted in the clinical panel to all of the ulcer sites. He tolerated this well. Dorsal lateral right foot ulceration secondary to chronic venous insufficiency as well as significant maceration of the first webspace of the right foot. Second webspace of the right foot has healed today. His wounds are complicated by chronic tobacco abuse. He is instructed to continue elevating his feet at times of rest. His wound site is making good progress in his healing status and continuing to demonstrate epithelialization at the dorsal distal aspect of the foot wound. The following work up and care recommendations were made: Dressing: Adaptic to the wound bed, Aquacel Ag, Suprasorb, Unna boot. Aquacel rope AG between the toes with ABD padding, dressing between toes changed daily Wash: Soap and water Tissue growth optimization: None Offload: Elevate lower extremities at all times of rest Vascular: Arterial studies 04/19/[address] Lott demonstrate venous insufficiency, triphasic flow PATRICE 1.31 right and 1.41 left Edema: Elevate lower extremities at all times of rest, compression dressing Infection: No signs of infection. Pain: Well controlled today Host factors: He was advised on smoking cessation and how this will delay his wound healing. He states that he will not stop smoking and refuses to do so. His wound sites are still macerated at the first webspace but showing improvement. He still has significant maceration to the proximal lateral aspect of his dorsal foot wound, modification to dressings was performed to better control the maceration. He was instructed to maintain adequate protein intake to aid in his wound healing. I answered all the patient's questions. To return to the wound healing center in 1 week or call sooner if the patient has any questions or concerns. Note: [employer] speech recognition calender roll press operator software was used to create portions of this document. Sound-alike and misspelled words, as well as other calender roll press operator errors may be contained in the documentation.
== END 2021-08-02 23:59 | disposition home or self-care (01) ==
LOC: WC 08:30
PROVIDERS: PCP Nurse Practitioner Adult Health; Visit Provider Student in an Organized Health Care Education/Training Program
DX: I87.2 Venous insufficiency (chronic) (peripheral) (principal); L97.512 Non-pressure chronic ulcer of other part of right foot with fat layer exposed; F31.9 Bipolar disorder, unspecified; R60.0 Localized edema; E66.9 Obesity, unspecified; Z72.0 Tobacco use; Z79.899 Other long term (current) drug therapy
CPT/HCPCS: 11042; 11045; 29580; 99213; G0463

== ENCOUNTER 2021-09-01 09:00 | Outpatient (RCR) | payer MEDICARE, MEDICAID, SELFPAY ==
[2021-08-03 00:17] VITALS: BP 127/73; PULSE 61; RESP 18; TEMP 36.5
[2021-08-04 08:30] VITALS: BP 133/73; PULSE 76; TEMP 35.6
--- NOTE | 2021-08-04 09:30 | PN.PCM_ITS ---
History of Present Illness Date of Service: 08/04/21 Chief Complaint: Left and right foot maceration and dorsal foot ulcers History of Wound: This 60-year-old male with significant past medical history of bipolar disorder presents complaining of a left and right foot previous foot moisture and skin ulcers. He denies fever, chill, nausea, vomiting. He denies odor or drainage. He has discontinue dressing care and relates both feet are healed. He also completed a course of antibiotics. Subjective Subjective This 61-year-old man with significant past medical history of bipolar disorder presents to the wound care center today for follow-up of a right foot macerated webspaces and skin ulceration dorsal foot secondary to chronic venous insufficiency. He denies any constitutional symptoms today. He states his assisted living facility is continuing his daily dressing changes between his toes. He has no other complaints today. Objective Data Objective Data Vital Signs: Vital Signs Temp Pulse Resp BP 96.0 F L 76 18 133/73 H 08/04/21 08:30 08/04/21 08:30 08/03/21 00:17 08/04/21 08:30 Physical Exam Const alert, oriented x3 and no apparent distress General Appearance: cooperative and comfortable HEENT normocephalic Eyes General Eye: normal appearance of both eyes Neck General: normal visual inspection Lymph Lymphatic: no lymphadenopathy noted and no lymphedema noted Chest inspection of chest normal Resp normal respiratory effort Cardio regular rate and regular rhythm Extremity normal capillary refill, no calf tenderness and no pedal edema Extremity Narrative: He has diminished pulses DP and PT bilateral Muscle wasting noted bilateral Moderate nonpitting edema of bilateral extremities with varicosities and some hyperpigmentation of the lower extremity and dorsal foot Skin no rashes or lesions noted General Skin Exam: venous stasis and dermatitis; Negative for erythema Wound Narrative: Superficial ulceration noted to the dorsal lateral right foot with yellow fibrous tissue covering the wound bed. There is evidence of epithelialization at the lateral aspect of the wound and distally near the toes. No purulent drainage, no streaking, no odor, no maceration, or other localized signs of infection. Webspace one of the right foot demonstrates some maceration and superficial abrasion to the lateral hallux and medial second digit. No signs of infection. Neuro oriented x3 and moves all extremities Psych cooperative and affect normal Debridement Note Debridement Note Wound debrided: Dorsal lateral right foot Laterality: Right Wound Grade/Stage: Monahan stage I Type of Debridement: Excisional debridement Anesthesia Used: 5% Lidocaine Gel Depth: Down to and including healthy tissue and in the subcutaneous layer Percentage of wound debrided: 100 Instrument Used: - (Misonix debridement) Tissue Removed: Fibrous, devitalized subcutaneous, biofilm, slough Severity: Fat Layer Exposed Amount of bleeding with debridement: Mild Bleeding Controlled with: Compression and gauze Patient tolerated procedure: Patient tolerated procedure well Post-Debridement Measurements and Additional Note: Post-Debridement Measurements/Treatment - Nurse 1 - General Ulcer Assessment Start: 08/04/21 08:29 Freq: Status: Active Protocol: DORA Activity Type Activity Date Activity User E-Sign Co-Sign Detail Recorded Client Recorded Date Recorded By Document 08/04/21 08:30 KR [id number] 08/04/21 08:32 KR 08/04/21 08:30 WC - Today's Visit Information Type of service Follow-up Visit (Physician/FENDER FINISHER ) Arrival Mode Ambulatory, Walker Patient Identification Verified (Name & Yes ) Vital Signs Temperature (97.8 F-99.1 F) 96.0 F L Temperature Source Temporal Pulse Rate (60-100) 76 Pulse Location Monitor Blood Pressure (90/60-120/80) 133/73 H Blood Pressure Mean (mm Hg) 93 Source Monitor Position Semi-Fowlers Blood Pressure Location Left Arm History Since Last Visit- (Skip if this is Patient's initial visit) Have you changed medications since your No last visit? Any new allergies or adverse reactions No Had a fall/change in ADL's that may No increase risk of falls Signs or symptoms of abuse and/or No neglect since last visit Have you been in the hospital since your No last visit? Has dressing in place as prescribed Yes Has compression in place as prescribed Yes Has offloadiing in place as prescribed N/A Experienced any changes in pain level or No management Left Footwear Surgical Shoe with pressure relief insole Right Footwear Surgical Shoe with pressure relief insole Pain Scale: 0-10 Numeric Is Patient Pain Free? Yes - Nurse 1 - General Ulcer Measurement Start: 08/04/21 08:29 Freq: Status: Active Protocol: Activity Type Activity Date Activity User E-Sign Co-Sign Detail Recorded Client Recorded Date Recorded By Document 08/04/21 08:30 KR [id number] 08/04/21 08:32 KR 08/04/21 08:30 Wound Center Nurse 1 #13 1st and 2nd web space right foot -Current Size (cm) - Length 1.3 -Current Size (cm) - Width 0.1 -Current Size (cm) - Depth 0.1 -Total Square Cm 0.13 -Exudate Amt Small -Exudate Type Serosanguineous -Wound Margin Distinct, Outline Attached -Granulation Amt Medium (34-66%) -Granulation Quality Red -Necrosis Amt Medium (34-66%) -Necrotic Tissue Type Adherent Slough -Texture (Brandi-wound Skin Appearance) Assessed, Scarring -Moisture (Brandi-wound Skin Appearance) No Abnormality, Assessed -Color (Brandi-wound Skin Appearance) No Abnormality, Assessed -Temperature (Brandi-wound Skin No Abnormality Appearance) (Pt Warm) -Tenderness on Palpation (Brandi-wound No Skin Appearance) -Ulcer Cleansing Soap and Water -Foul Odor after Cleansing No -Anesthetic Used 4% Lidocaine Solution #12 Right Dorsal Foot -Current Size (cm) - Length 0.1 -Current Size (cm) - Width 0.1 -Current Size (cm) - Depth 0.1 -Total Square Cm 0.01 -Exudate Amt None Present -Wound Margin Distinct, Outline Attached -Granulation Amt None Present (0 %) -Necrosis Amt None Present (0 %) -Texture (Brandi-wound Skin Appearance) Assessed, Scarring -Moisture (Brandi-wound Skin Appearance) No Abnormality, Assessed -Color (Brandi-wound Skin Appearance) No Abnormality, Assessed -Temperature (Brandi-wound Skin No Abnormality Appearance) (Pt Warm) -Tenderness on Palpation (Brandi-wound No Skin Appearance) -Ulcer Cleansing Soap and Water -Anesthetic Used 4% Lidocaine Solution Right Calf (cm) 37.6 Right Ankle (cm) 26.3 WC - Nurse 3 - General Ulcer D/C NN Start: 08/04/21 08:29 Freq: Status: Active Protocol: Activity Type Activity Date Activity User E-Sign Co-Sign Detail Recorded Client Recorded Date Recorded By Document 08/04/21 09:27 RUBEN [id number] 08/04/21 09:28 RUBEN 08/04/21 09:27 Wound Care Nurse 3 #13 1st and 2nd web space right foot -Ulcer Cleansing Rinsed/ Irrigated with Saline -Primary Dressing Applied Aquacel Rope -Primary Dressing Covered/Secured with Dry Gauze,Dry Gauze & Roll Gauze,Secured with Tape -Aquacel Rope 1 #12 Right Dorsal Foot -Ulcer Cleansing Rinsed/ Irrigated with Saline -Primary Dressing Applied Aquacel AG 4x4 -Primary Dressing Covered/Secured with Dry Gauze,Dry Gauze & Roll Gauze,Secured with Tape -Aquacel AG 4x4 1 Pain Scale: 0-10 Numeric Is Patient Pain Free? 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 (2) Venous insufficiency (chronic) (peripheral): CODE(S): I87.2 - Venous insufficiency (chronic) (peripheral) (3) Bilateral edema of lower extremity: CODE(S): R60.0 - Localized edema (4) Nonhealing nonsurgical wound limited to breakdown of skin: CODE(S): T14.8XXA - Other injury of unspecified body region, initial encounter (5) Tobacco abuse: CODE(S): Z72.0 - Tobacco use (6) Bipolar disorder: CODE(S): F31.9 - Bipolar disorder, unspecified QUALIFIERS: Active/Remission status: remission status unspecified Qualified Code(s): F31.9 - Bipolar disorder, unspecified (7) Obesity (BMI 30.0-34.9): CODE(S): E66.9 - Obesity, unspecified (8) Maceration of skin: CODE(S): L98.8 - Other specified disorders of the skin and subcutaneous tissue PLAN: Patient seen and evaluated. Debridement was performed today with Misonix as noted in the clinical panel to all of the ulcer sites. He tolerated this well. Dorsal lateral right foot ulceration secondary to chronic venous insufficiency as well as maceration of the first webspace of the right foot. Maceration is improving. Second webspace of the right foot remains healed. His wounds are complicated by chronic tobacco abuse and chronic venous insufficency. He is instructed to continue elevating his feet at times of rest. His wound site are continuing to make good progress in healing status and are continuing to demonstrate epithelialization at the dorsal distal aspect of the foot wound. Leg swelling continues to decrease with the use of an Unna boot wrap. The following work up and care recommendations were made: Dressing: Adaptic to the wound bed, Aquacel Ag, Suprasorb, Unna boot. Aquacel rope AG between the toes with ABD padding, dressing between toes changed daily Wash: Soap and water Tissue growth optimization: None Offload: Elevate lower extremities at all times of rest Vascular: Arterial studies 04/19/[address] Lott demonstrate venous insufficiency, triphasic flow PATRICE 1.31 right and 1.41 left Edema: Elevate lower extremities at all times of rest, compression dressing Infection: No signs of infection. Pain: Well controlled today Host factors: He was advised on smoking cessation and how this will delay his wound healing. He states that he will not stop smoking and refuses to do so. His wound sites are still macerated at the first webspace but continuing to show improvement with less maceration today. He was instructed to maintain adequate protein intake to aid in his wound healing. I answered all the patient's questions. To return to the wound healing center in 1 week or call sooner if the patient has any questions or concerns. Note: [employer] speech recognition travel freight and passenger agent software was used to create portions of this document. Sound-alike and misspelled words, as well as other travel freight and passenger agent errors may be contained in the documentation.
[2021-08-09 12:52] VITALS: BP 135/79; PULSE 72; TEMP 36.8
[2021-08-11 08:59] VITALS: BP 118/66; PULSE 68; TEMP 35.4
--- NOTE | 2021-08-11 10:16 | PCM.WC.PN ---
History of Present Illness Date of Service: 08/11/21 Chief Complaint: Left and right foot maceration and dorsal foot ulcers History of Wound: This 60-year-old male with significant past medical history of bipolar disorder presents complaining of a left and right foot previous foot moisture and skin ulcers. He denies fever, chill, nausea, vomiting. He denies odor or drainage. He has discontinue dressing care and relates both feet are healed. He also completed a course of antibiotics. Subjective Subjective This 61-year-old man with significant past medical history of bipolar disorder presents to the wound care center today for follow-up of a right foot macerated webspaces and skin ulceration dorsal foot secondary to chronic venous insufficiency. He denies any constitutional symptoms today. He states his assisted living facility is continuing his daily dressing changes between his toes. He states his Unna boot is becoming more saturated between dressing changes. He has no other complaints today. Objective Data Objective Data Vital Signs: Vital Signs Temp Pulse Resp BP 95.7 F L 68 18 118/66 08/11/21 08:59 08/11/21 08:59 08/03/21 00:17 08/11/21 08:59 Physical Exam Const alert, oriented x3 and no apparent distress General Appearance: cooperative and comfortable HEENT normocephalic Eyes General Eye: normal appearance of both eyes Neck General: normal visual inspection Lymph Lymphatic: no lymphadenopathy noted and no lymphedema noted Chest inspection of chest normal Resp normal respiratory effort Cardio regular rate and regular rhythm Extremity normal capillary refill, no calf tenderness and no pedal edema Extremity Narrative: He has diminished pulses DP and PT bilateral Muscle wasting noted bilateral Moderate nonpitting edema of bilateral extremities with varicosities and some hyperpigmentation of the lower extremity and dorsal foot Skin no rashes or lesions noted General Skin Exam: venous stasis and dermatitis; Negative for erythema Wound Narrative: Superficial ulceration noted to the dorsal lateral right foot with yellow fibrous tissue covering the wound bed. There is evidence of epithelialization at the lateral aspect of the wound and distally near the toes. No purulent drainage, no streaking, no odor, no maceration, or other localized signs of infection. Webspace one of the right foot demonstrates some maceration and superficial abrasion to the lateral hallux and medial second digit. No signs of infection. Neuro oriented x3 and moves all extremities Psych cooperative and affect normal Debridement Note Debridement Note Wound debrided: Right dorsal lateral foot and first webspace Laterality: Right Wound Grade/Stage: Monahan stage I Type of Debridement: Excisional debridement Anesthesia Used: 5% Lidocaine Gel Depth: Down to and including healthy tissue and in the subcutaneous layer Percentage of wound debrided: 100 Instrument Used: - (Misonix) Tissue Removed: Fibrous, devitalized subcutaneous, biofilm, slough Severity: Fat Layer Exposed Amount of bleeding with debridement: Mild Bleeding Controlled with: Compression and gauze Patient tolerated procedure: Patient tolerated procedure well Post-Debridement Measurements and Additional Note: Post-Debridement Measurements/Treatment - Nurse 1 - General Ulcer Assessment Start: 08/04/21 08:29 Freq: Status: Active Protocol: DORA Activity Type Activity Date Activity User E-Sign Co-Sign Detail Recorded Client Recorded Date Recorded By Document 08/04/21 08:30 RUBEN [id number] 08/04/21 08:32 KR Document 08/09/21 12:52 GHADA [id number] 08/09/21 12:58 AK Document 08/11/21 08:59 KS [id number] 08/11/21 09:15 AK 08/04/21 08/09/21 08/11/21 08:30 12:52 08:59 - Today's Visit Information Type of service Follow-up Visit Nurse-only Follow-up Visit (Physician/NECKTIE CENTRALIZING MACHINE OPERATOR Visit (Physician/NECKTIE CENTRALIZING MACHINE OPERATOR ) ) Arrival Mode Ambulatory, Ambulatory, Ambulatory, Walker Walker Walker Patient Identification Verified (Name & Yes Yes ) Patient Requires Transmission-Based No Precautions Safety Precautions NA Vital Signs Temperature (97.8 F-99.1 F) 96.0 F L 98.3 F 95.7 F L Temperature Source Temporal Temporal Temporal Pulse Rate (60-100) 76 72 68 Pulse Location Monitor Monitor Monitor Blood Pressure (90/60-120/80) 133/73 H 135/79 H 118/66 Blood Pressure Mean (mm Hg) 93 97 83 Source Monitor Monitor Monitor Position Semi-Fowlers Sitting Blood Pressure Location Left Arm Right Arm History Since Last Visit- (Skip if this is Patient's initial visit) Have you changed medications since your No No No last visit? Any new allergies or adverse reactions No No No Had a fall/change in ADL's that may No No No increase risk of falls Signs or symptoms of abuse and/or No No No neglect since last visit Have you been in the hospital since your No No No last visit? Has dressing in place as prescribed Yes Yes Yes Has compression in place as prescribed Yes Yes Yes Has offloadiing in place as prescribed N/A N/A N/A Experienced any changes in pain level or No No No management Left Footwear Surgical Shoe Regular Shoe Slipper with pressure relief insole Right Footwear Surgical Shoe Regular Shoe Slipper with pressure relief insole Pain Scale: 0-10 Numeric Is Patient Pain Free? Yes Yes Yes WC - Nurse 1 - General Ulcer Measurement Start: 08/04/21 08:29 Freq: Status: Active Protocol: Activity Type Activity Date Activity User E-Sign Co-Sign Detail Recorded Client Recorded Date Recorded By Document 08/04/21 08:30 KR [id number] 08/04/21 08:32 KR Document 08/11/21 08:59 AK [id number] 08/11/21 09:15 AK 08/04/21 08/11/21 08:30 08:59 Wound Center Nurse 1 #13 1st and 2nd web space right foot -Combined with other wound No -Current Size (cm) - Length 1.3 2.6 -Current Size (cm) - Width 0.1 3.5 -Current Size (cm) - Depth 0.1 0.1 -Total Square Cm 0.13 9.10 -Photo Taken No -Epithelialization None Present -Tunneling No -Undermining/Tunneling No -Circular Undermining No -Change in Wound Grade/Stage No -Exudate Amt Small Medium -Exudate Type Serosanguineous Serosanguineous -Wound Margin Distinct, Distinct, Outline Outline Attached Attached -Granulation Amt Medium (34-66%) Medium (34-66%) -Granulation Quality Red [place] -Slough/Fibrin Yes -Necrosis Amt Medium (34-66%) Medium (34-66%) -Necrotic Tissue Type Adherent Slough Adherent Slough -Structure Exposed N/A -Texture (Brandi-wound Skin Appearance) Assessed, Assessed, Scarring Scarring -Moisture (Brandi-wound Skin Appearance) No Abnormality, Assessed, Assessed Maceration -Color (Brandi-wound Skin Appearance) No Abnormality, Assessed, Assessed Erythema -Temperature (Brandi-wound Skin No Abnormality No Abnormality Appearance) (Pt Warm) (Pt Warm) -Tenderness on Palpation (Brandi-wound No No Skin Appearance) -Ulcer Cleansing Soap and Water Rinsed/ Irrigated with Saline -Foul Odor after Cleansing No No -Anesthetic Used 4% Lidocaine 5% Lidocaine Solution Gel #12 Right Dorsal Foot -Current Size (cm) - Length 0.1 7 -Current Size (cm) - Width 0.1 8.4 -Current Size (cm) - Depth 0.1 0.1 -Total Square Cm 0.01 58.8 -Photo Taken No -Epithelialization None Present -Tunneling No -Undermining/Tunneling No -Circular Undermining No -Change in Wound Grade/Stage Yes -Exudate Amt None Present Large -Exudate Type Yellow/Green -Wound Margin Distinct, Distinct, Outline Outline Attached Attached -Granulation Amt None Present (0 None Present (0 %) %) -Granulation Quality N/A -Slough/Fibrin Yes -Necrosis Amt None Present (0 Medium (34-66%) %) -Necrotic Tissue Type Adherent Slough -Structure Exposed N/A -Texture (Brandi-wound Skin Appearance) Assessed, No Abnormality, Scarring Assessed -Moisture (Brandi-wound Skin Appearance) No Abnormality, Assessed, Assessed Maceration -Color (Brandi-wound Skin Appearance) No Abnormality, No Abnormality, Assessed Assessed, Hemosiderin Staining -Temperature (Brandi-wound Skin No Abnormality No Abnormality Appearance) (Pt Warm) (Pt Warm) -Tenderness on Palpation (Brandi-wound No No Skin Appearance) -Ulcer Cleansing Soap and Water Rinsed/ Irrigated with Saline -Foul Odor after Cleansing No -Anesthetic Used 4% Lidocaine 5% Lidocaine Solution Gel Right Calf (cm) 37.6 Right Ankle (cm) 26.3 WC - Nurse 2 - General Ulcer CM Notes Start: 08/04/21 08:29 Freq: Status: Active Protocol: Activity Type Activity Date Activity User E-Sign Co-Sign Detail Recorded Client Recorded Date Recorded By Document 08/04/21 13:28 LACHO [id number] 08/04/21 13:32 PL Document 08/11/21 09:37 [id number] 08/11/21 09:41 MOSHE 08/04/21 08/11/21 13:28 09:37 Wound Center Nurse 2 #13 1st and 2nd web space right foot -Time 08:58 09:37 -Correct Patient Yes Yes -Correct Side, Site, Position Yes Yes -Correct Procedure Yes Yes -Procedure Performed Yes Yes -Type of Procedure Debridement Debridement -Clinical Debridement Subcutaneous Subcutaneous -Tissue Removed Subcutaneous Subcutaneous -Post Debridement (cm) - Length 1.3 2.0 -Post Debridement (cm) - Width 0.1 2.5 -Post Debridement (cm) - Depth 0.1 0.1 -Total Square (Post) (cm) 0.13 5.00 -Area of Debridement (cm) - Length 1.3 2.0 -Area of Debridement (cm) - Width 0.1 2.5 -Total Square (Area) (cm) 0.13 5.00 -Tunneling No No -Undermining/Tunneling No No -Circular Undermining No No -Wound/Ulcer Outcome Not Healed Not Healed -Ulcer Cleansing Rinsed/ Rinsed/ Irrigated with Irrigated with Saline Saline -Foul Odor after Cleansing No No -Bioengineered Tissue No No -Bleeding Controlled with Pressure Pressure -Treatment Response Procedure Procedure Tolerated Well Tolerated Well -Offloading No -Debridement - Subq, 1st 20sq cm No No #12 Right Dorsal Foot -Time 08:58 09:38 -Correct Patient Yes Yes -Correct Side, Site, Position Yes Yes -Correct Procedure Yes Yes -Procedure Performed Yes Yes -Type of Procedure Debridement Debridement -Clinical Debridement Subcutaneous Subcutaneous -Tissue Removed Subcutaneous Subcutaneous -Post Debridement (cm) - Length 12 2.7 -Post Debridement (cm) - Width 10 2.0 -Post Debridement (cm) - Depth 0.1 0.1 -Total Square (Post) (cm) 120 5.40 -Area of Debridement (cm) - Length 12 2.7 -Area of Debridement (cm) - Width 10 2.0 -Total Square (Area) (cm) 120 5.40 -Tunneling No No -Undermining/Tunneling No No -Circular Undermining No No -Wound/Ulcer Outcome Not Healed Amputation -Ulcer Cleansing Rinsed/ Rinsed/ Irrigated with Irrigated with Saline Saline -Foul Odor after Cleansing No -Bioengineered Tissue No No -Bleeding Controlled with Pressure Pressure -Treatment Response Procedure Procedure Tolerated Well Tolerated Well -Offloading No -Debridement - Subq, 1st 20sq cm Yes Yes -Debridement, SubQ, ea addt'l 20sq cm 5 or part thereof Pain Scale: 0-10 Numeric Is Patient Pain Free? Yes Yes WC - Nurse 3 - General Ulcer D/C NN Start: 08/04/21 08:29 Freq: Status: Active Protocol: Activity Type Activity Date Activity User E-Sign Co-Sign Detail Recorded Client Recorded Date Recorded By Document 08/04/21 09:27 KR [id number] 08/04/21 09:28 KR Edit Result 08/04/21 09:27 KR (1) [id number] 08/05/21 06:28 PL Document 08/09/21 12:52 AK [id number] 08/09/21 12:58 AK Document 08/11/21 09:54 KR [id number] 08/11/21 09:55 KR (1) Right - Multi-Layered Wrap Application => Unna Boot - Right => ($) 08/04/21 08/09/21 08/11/21 09:27 12:52 09:54 Wound Care Nurse 3 #13 1st and 2nd web space right foot -Ulcer Cleansing Rinsed/ Rinsed/ Irrigated with Irrigated with Saline Saline -Foul Odor after Cleansing No -Negative Pressure Wound Therapy N/A -Primary Dressing Applied Aquacel Rope Aquacel Rope Aquacel AG 4x4 -Primary Dressing Covered/Secured with Dry Gauze,Dry Dry Gauze & Dry Gauze, Gauze & Roll Roll Gauze, Secured with Gauze,Secured Secured with Tape with Tape Tape -Aquacel AG 4x4 1 -Aquacel Rope 1 1 #12 Right Dorsal Foot -Ulcer Cleansing Rinsed/ Rinsed/ Irrigated with Irrigated with Saline Saline -Foul Odor after Cleansing No -Negative Pressure Wound Therapy N/A -Primary Dressing Applied Aquacel AG 4x4 Aquacel AG 4x4, Optilok 6.5x10 -Primary Dressing Covered/Secured with Dry Gauze,Dry Dry Gauze, Gauze & Roll Secured with Gauze,Secured Tape with Tape -Aquacel AG 4x4 1 1 -Optilok 6.5x10 1 Right -Lotion applied to leg before No compression wrap -Multi-Layered Wrap Application Unna Boot - Unna Boot - Right ($) Right ($) -Compression Wrap Surepress ($) Vital Signs Temperature (97.8 F-99.1 F) 98.3 F Temperature Source Temporal Pulse Rate (60-100) 72 Pulse Location Monitor Blood Pressure (90/60-120/80) 135/79 H Blood Pressure Mean (mm Hg) 97 Source Monitor Pain Scale: 0-10 Numeric Is Patient Pain Free? Yes Yes Yes WC - Visit Discharge Discharge Condition Stable Stable Stable Ambulatory Status Ambulatory, Ambulatory, Ambulatory, Walker Walker Walker Transportation Private Auto Private Auto Private Auto Medication Reconcilliation completed & Yes provided to patient/care provider Clinical Summary of Care Provided Yes Assessment/Plan Assessment/Plan (1) Ulcer of right foot with fat layer exposed: CODE(S): L97.512 - Non-pressure chronic ulcer of other part of right foot with fat layer exposed (2) Venous insufficiency (chronic) (peripheral): CODE(S): I87.2 - Venous insufficiency (chronic) (peripheral) (3) Bilateral edema of lower extremity: CODE(S): R60.0 - Localized edema (4) Nonhealing nonsurgical wound limited to breakdown of skin: CODE(S): T14.8XXA - Other injury of unspecified body region, initial encounter (5) Tobacco abuse: CODE(S): Z72.0 - Tobacco use (6) Bipolar disorder: CODE(S): F31.9 - Bipolar disorder, unspecified QUALIFIERS: Active/Remission status: remission status unspecified Qualified Code(s): F31.9 - Bipolar disorder, unspecified (7) Obesity (BMI 30.0-34.9): CODE(S): E66.9 - Obesity, unspecified (8) Maceration of skin: CODE(S): L98.8 - Other specified disorders of the skin and subcutaneous tissue PLAN: Patient seen and evaluated. Debridement was performed today with Misonix as noted in the clinical panel to all of the ulcer sites. He tolerated this well. Dorsal lateral right foot ulceration secondary to chronic venous insufficiency as well as maceration of the first webspace of the right foot. Maceration is improving, but still present. Second webspace of the right foot remains healed. His wounds are complicated by chronic tobacco abuse and chronic venous insufficency. He is instructed to continue elevating his feet at times of rest. His wound site are continuing to make good progress in healing status and are continuing to demonstrate epithelialization at the dorsal distal aspect of the foot wound. Leg swelling has decreased but due to continued maceration we will switch to SurePress compression wrap to be changed daily. The following work up and care recommendations were made: Dressing: Adaptic to the wound bed, Aquacel Ag, Suprasorb, SurePress compression dressing, change daily. Aquacel rope AG between the toes with ABD padding, dressing between toes changed daily Wash: Soap and water Tissue growth optimization: None Offload: Elevate lower extremities at all times of rest Vascular: Arterial studies 04/19/[address] Lott demonstrate venous insufficiency, triphasic flow PATRICE 1.31 right and 1.41 left Edema: Elevate lower extremities at all times of rest, compression dressing Infection: No signs of infection. Pain: Well controlled today Host factors: He was advised on smoking cessation and how this will delay his wound healing. He states that he will not stop smoking and refuses to do so. His wound sites are still macerated at the first webspace but continuing to show improvement with less maceration today. He was instructed to maintain adequate protein intake to aid in his wound healing. I answered all the patient's questions. To return to the wound healing center in 1 week or call sooner if the patient has any questions or concerns. Note: [employer] speech recognition polishing wheel repairer software was used to create portions of this document. Sound-alike and misspelled words, as well as other polishing wheel repairer errors may be contained in the documentation.
[2021-08-18 09:02] VITALS: BP 125/68; PULSE 63; RESP 16; TEMP 36.7
--- NOTE | 2021-08-18 09:42 | PCM.WC.PN ---
History of Present Illness Date of Service: 08/18/21 Chief Complaint: Left and right foot maceration and dorsal foot ulcers History of Wound: This 60-year-old male with significant past medical history of bipolar disorder presents complaining of a left and right foot previous foot moisture and skin ulcers. He denies fever, chill, nausea, vomiting. He denies odor or drainage. He has discontinue dressing care and relates both feet are healed. He also completed a course of antibiotics. Subjective Subjective This 61-year-old man with significant past medical history of bipolar disorder presents to the wound care center today for follow-up of a right foot macerated webspaces and skin ulceration dorsal foot secondary to chronic venous insufficiency.? He denies any constitutional symptoms today.? He states his assisted living facility is continuing his daily dressing changes between his toes.? He states his compression dressings have been coming undone and he has to reinforced with tape.?He has no other complaints today. Objective Data Objective Data Vital Signs: Vital Signs Temp Pulse Resp BP 98.1 F 63 16 125/68 H 08/18/21 09:02 08/18/21 09:02 08/18/21 09:02 08/18/21 09:02 Physical Exam Const alert, oriented x3 and no apparent distress General Appearance: cooperative and comfortable HEENT normocephalic Eyes General Eye: normal appearance of both eyes Neck General: normal visual inspection Lymph Lymphatic: no lymphadenopathy noted and no lymphedema noted Chest inspection of chest normal Resp normal respiratory effort Cardio regular rate and regular rhythm Extremity normal capillary refill, no calf tenderness and no pedal edema Extremity Narrative: He has diminished pulses DP and PT bilateral Muscle wasting noted bilateral Moderate nonpitting edema of bilateral extremities with varicosities and some hyperpigmentation of the lower extremity and dorsal foot Skin no rashes or lesions noted General Skin Exam: venous stasis and dermatitis; Negative for erythema Wound Narrative: Superficial ulceration noted to the dorsal lateral right foot with yellow fibrous tissue covering the wound bed. There is evidence of epithelialization at the lateral aspect of the wound and distally near the toes. No purulent drainage, no streaking, no odor, no maceration, or other localized signs of infection. Webspace one of the right foot demonstrates some maceration and superficial abrasion to the lateral hallux and medial second digit. No signs of infection. Neuro oriented x3 and moves all extremities Psych cooperative and affect normal Debridement Note Debridement Note Wound debrided: Right dorsal lateral foot and first webspace Laterality: Right Wound Grade/Stage: Monahan stage I Type of Debridement: Excisional debridement Anesthesia Used: 5% Lidocaine Gel Depth: Down to and including healthy tissue and in the subcutaneous layer Percentage of wound debrided: 100 Instrument Used: - (Misonix) Tissue Removed: Fibrous, devitalized subcutaneous, biofilm, slough Severity: Fat Layer Exposed Amount of bleeding with debridement: Mild Bleeding Controlled with: Compression and gauze Patient tolerated procedure: Patient tolerated procedure well Post-Debridement Measurements and Additional Note: Post-Debridement Measurements/Treatment - Nurse 1 - General Ulcer Assessment Start: 08/04/21 08:29 Freq: Status: Active Protocol: DORA Activity Type Activity Date Activity User E-sign Co-sign Detail Recorded Client Recorded Date Recorded By Document 08/04/21 08:30 KR [id number] 08/04/21 08:32 KR Document 08/09/21 12:52 [place] [id number] 08/09/21 12:58 AK Document 08/11/21 08:59 AK [id number] 08/11/21 09:15 AK Document 08/18/21 09:02 ML [id number] 08/18/21 09:04 ML 08/04/21 08/09/21 08/11/21 08:30 12:52 08:59 - Today's Visit Information Type of service Follow-up Visit Nurse-only Follow-up Visit (Physician/PROFESSOR OF THEATRE Visit (Physician/PROFESSOR OF THEATRE ) ) Arrival Mode Ambulatory, Ambulatory, Ambulatory, Walker Walker Walker Transfer Assistance Patient Identification Verified (Name & Yes Yes ) Patient Requires Transmission-Based No Precautions Safety Precautions NA Vital Signs Temperature (97.8 F-99.1 F) 96.0 F L 98.3 F 95.7 F L Temperature Source Temporal Temporal Temporal Pulse Rate (60-100) 76 72 68 Pulse Location Monitor Monitor Monitor Respiratory Rate (12-18) Respiratory rate source Blood Pressure (90/60-120/80) 133/73 H 135/79 H 118/66 Blood Pressure Mean (mm Hg) 93 97 83 Source Monitor Monitor Monitor Position Semi-Fowlers Sitting Blood Pressure Location Left Arm Right Arm History Since Last Visit- (Skip if this is Patient's initial visit) Have you changed medications since your No No No last visit? Any new allergies or adverse reactions No No No Had a fall/change in ADL's that may No No No increase risk of falls Signs or symptoms of abuse and/or No No No neglect since last visit Have you been in the hospital since your No No No last visit? Has dressing in place as prescribed Yes Yes Yes Has compression in place as prescribed Yes Yes Yes Has offloadiing in place as prescribed N/A N/A N/A Experienced any changes in pain level or No No No management Left Footwear Surgical Shoe Regular Shoe Slipper with pressure relief insole Right Footwear Surgical Shoe Regular Shoe Slipper with pressure relief insole Pain Scale: 0-10 Numeric Is Patient Pain Free? Yes Yes Yes 08/18/21 09:02 WC - Today's Visit Information Type of service Follow-up Visit (Physician/PROFESSOR OF THEATRE ) Arrival Mode Ambulatory, Walker Transfer Assistance None Patient Identification Verified (Name & Yes ) Patient Requires Transmission-Based No Precautions Safety Precautions NA Vital Signs Temperature (97.8 F-99.1 F) 98.1 F Temperature Source Temporal Pulse Rate (60-100) 63 Pulse Location Monitor Respiratory Rate (12-18) 16 Respiratory rate source Observation Blood Pressure (90/60-120/80) 125/68 H Blood Pressure Mean (mm Hg) 87 Source Monitor Position Sitting Blood Pressure Location Left Arm History Since Last Visit- (Skip if this is Patient's initial visit) Have you changed medications since your No last visit? Any new allergies or adverse reactions No Had a fall/change in ADL's that may No increase risk of falls Signs or symptoms of abuse and/or No neglect since last visit Have you been in the hospital since your No last visit? Has dressing in place as prescribed Yes Has compression in place as prescribed Yes Has offloadiing in place as prescribed Yes Experienced any changes in pain level or No management Left Footwear Custom Shoe Right Footwear Custom Shoe Pain Scale: 0-10 Numeric Is Patient Pain Free? Yes - Nurse 1 - General Ulcer Measurement Start: 08/04/21 08:29 Freq: Status: Active Protocol: Activity Type Activity Date Activity User E-sign Co-sign Detail Recorded Client Recorded Date Recorded By Document 08/04/21 08:30 RUBEN [id number] 08/04/21 08:32 KR Document 08/11/21 08:59 AK [id number] 08/11/21 09:15 AK Document 08/18/21 09:02 ML [id number] 08/18/21 09:04 ML 08/04/21 08/11/21 08/18/21 08:30 08:59 09:02 Wound Center Nurse 1 #13 1st and 2nd web space right foot -Combined with other wound No -Current Size (cm) - Length 1.3 2.6 0.1 -Current Size (cm) - Width 0.1 3.5 0.1 -Current Size (cm) - Depth 0.1 0.1 0.1 -Total Square Cm 0.13 9.10 0.01 -Photo Taken No -Epithelialization None Present -Tunneling No -Undermining/Tunneling No -Circular Undermining No -Change in Wound Grade/Stage No -Exudate Amt Small Medium Medium -Exudate Type Serosanguineous Serosanguineous Serous -Wound Margin Distinct, Distinct, Distinct, Outline Outline Outline Attached Attached Attached -Granulation Amt Medium (34-66%) Medium (34-66%) Medium (34-66%) -Granulation Quality [place] -Slough/Fibrin Yes -Necrosis Amt Medium (34-66%) Medium (34-66%) Medium (34-66%) -Necrotic Tissue Type Adherent Slough Adherent Slough Adherent Slough -Structure Exposed N/A -Texture (Brandi-wound Skin Appearance) Assessed, Assessed, Assessed Scarring Scarring -Moisture (Brandi-wound Skin Appearance) No Abnormality, Assessed, Assessed Assessed Maceration -Color (Brandi-wound Skin Appearance) No Abnormality, Assessed, Assessed Assessed Erythema -Temperature (Brandi-wound Skin No Abnormality No Abnormality No Abnormality Appearance) (Pt Warm) (Pt Warm) (Pt Warm) -Tenderness on Palpation (Brandi-wound No No No Skin Appearance) -Ulcer Cleansing Soap and Water Rinsed/ Soap and Water Irrigated with Saline -Foul Odor after Cleansing No No No -Anesthetic Used 4% Lidocaine 5% Lidocaine 5% Lidocaine Solution Gel Gel #12 Right Dorsal Foot -Current Size (cm) - Length 0.1 7 3 -Current Size (cm) - Width 0.1 8.4 2 -Current Size (cm) - Depth 0.1 0.1 0.1 -Total Square Cm 0.01 58.8 6 -Photo Taken No -Epithelialization None Present -Tunneling No -Undermining/Tunneling No -Circular Undermining No -Change in Wound Grade/Stage Yes -Exudate Amt None Present Large Medium -Exudate Type Yellow/Green Serous -Wound Margin Distinct, Distinct, Distinct, Outline Outline Outline Attached Attached Attached -Granulation Amt None Present (0 None Present (0 Medium (34-66%) %) %) -Granulation Quality N/A Pale -Slough/Fibrin Yes Yes -Necrosis Amt None Present (0 Medium (34-66%) Medium (34-66%) %) -Necrotic Tissue Type Adherent Slough Adherent Slough -Structure Exposed N/A -Texture (Brandi-wound Skin Appearance) Assessed, No Abnormality, Assessed Scarring Assessed -Moisture (Rbandi-wound Skin Appearance) No Abnormality, Assessed, Assessed Assessed Maceration -Color (Brandi-wound Skin Appearance) No Abnormality, No Abnormality, Assessed Assessed Assessed, Hemosiderin Staining -Temperature (Brandi-wound Skin No Abnormality No Abnormality No Abnormality Appearance) (Pt Warm) (Pt Warm) (Pt Warm) -Tenderness on Palpation (Brandi-wound No No No Skin Appearance) -Ulcer Cleansing Soap and Water Rinsed/ Soap and Water Irrigated with Saline -Foul Odor after Cleansing No No -Anesthetic Used 4% Lidocaine 5% Lidocaine 5% Lidocaine Solution Gel Gel Right Calf (cm) 37.6 Right Ankle (cm) 26.3 WC - Nurse 2 - General Ulcer CM Notes Start: 08/04/21 08:29 Freq: Status: Active Protocol: Activity Type Activity Date Activity User E-sign Co-sign Detail Recorded Client Recorded Date Recorded By Document 08/04/21 13:28 PL [id number] 08/04/21 13:32 PL Document 08/11/21 09:37 [id number] 08/11/21 09:41 MOSHE 08/04/21 08/11/21 13:28 09:37 Wound Center Nurse 2 #13 1st and 2nd web space right foot -Time 08:58 09:37 -Correct Patient Yes Yes -Correct Side, Site, Position Yes Yes -Correct Procedure Yes Yes -Procedure Performed Yes Yes -Type of Procedure Debridement Debridement -Clinical Debridement Subcutaneous Subcutaneous -Tissue Removed Subcutaneous Subcutaneous -Post Debridement (cm) - Length 1.3 2.0 -Post Debridement (cm) - Width 0.1 2.5 -Post Debridement (cm) - Depth 0.1 0.1 -Total Square (Post) (cm) 0.13 5.00 -Area of Debridement (cm) - Length 1.3 2.0 -Area of Debridement (cm) - Width 0.1 2.5 -Total Square (Area) (cm) 0.13 5.00 -Tunneling No No -Undermining/Tunneling No No -Circular Undermining No No -Wound/Ulcer Outcome Not Healed Not Healed -Ulcer Cleansing Rinsed/ Rinsed/ Irrigated with Irrigated with Saline Saline -Foul Odor after Cleansing No No -Bioengineered Tissue No No -Bleeding Controlled with Pressure Pressure -Treatment Response Procedure Procedure Tolerated Well Tolerated Well -Offloading No -Debridement - Subq, 1st 20sq cm No No #12 Right Dorsal Foot -Time 08:58 09:38 -Correct Patient Yes Yes -Correct Side, Site, Position Yes Yes -Correct Procedure Yes Yes -Procedure Performed Yes Yes -Type of Procedure Debridement Debridement -Clinical Debridement Subcutaneous Subcutaneous -Tissue Removed Subcutaneous Subcutaneous -Post Debridement (cm) - Length 12 2.7 -Post Debridement (cm) - Width 10 2.0 -Post Debridement (cm) - Depth 0.1 0.1 -Total Square (Post) (cm) 120 5.40 -Area of Debridement (cm) - Length 12 2.7 -Area of Debridement (cm) - Width 10 2.0 -Total Square (Area) (cm) 120 5.40 -Tunneling No No -Undermining/Tunneling No No -Circular Undermining No No -Wound/Ulcer Outcome Not Healed Amputation -Ulcer Cleansing Rinsed/ Rinsed/ Irrigated with Irrigated with Saline Saline -Foul Odor after Cleansing No -Bioengineered Tissue No No -Bleeding Controlled with Pressure Pressure -Treatment Response Procedure Procedure Tolerated Well Tolerated Well -Offloading No -Debridement - Subq, 1st 20sq cm Yes Yes -Debridement, SubQ, ea addt'l 20sq cm 5 or part thereof Pain Scale: 0-10 Numeric Is Patient Pain Free? Yes Yes WC - Nurse 3 - General Ulcer D/C NN Start: 08/04/21 08:29 Freq: Status: Active Protocol: Activity Type Activity Date Activity User E-sign Co-sign Detail Recorded Client Recorded Date Recorded By Document 08/04/21 09:27 KR [id number] 08/04/21 09:28 KR Edit Result 08/04/21 09:27 KR (1) [id number] 08/05/21 06:28 PL Document 08/09/21 12:52 AK [id number] 08/09/21 12:58 AK Document 08/11/21 09:54 KR [id number] 08/11/21 09:55 KR Document 08/18/21 09:28 KR [id number] 08/18/21 09:29 KR (1) Right - Multi-Layered Wrap Application => Unna Boot - Right => ($) 08/04/21 08/09/21 08/11/21 09:27 12:52 09:54 Wound Care Nurse 3 #13 1st and 2nd web space right foot -Ulcer Cleansing Rinsed/ Rinsed/ Irrigated with Irrigated with Saline Saline -Foul Odor after Cleansing No -Negative Pressure Wound Therapy N/A -Primary Dressing Applied Aquacel Rope Aquacel Rope Aquacel AG 4x4 -Other Dressing -Primary Dressing Covered/Secured with Dry Gauze,Dry Dry Gauze & Dry Gauze, Gauze & Roll Roll Gauze, Secured with Gauze,Secured Secured with Tape with Tape Tape -Aquacel AG 4x4 1 -Aquacel Rope 1 1 #12 Right Dorsal Foot -Ulcer Cleansing Rinsed/ Rinsed/ Irrigated with Irrigated with Saline Saline -Foul Odor after Cleansing No -Negative Pressure Wound Therapy N/A -Primary Dressing Applied Aquacel AG 4x4 Aquacel AG 4x4, Optilok 6.5x10 -Primary Dressing Covered/Secured with Dry Gauze,Dry Dry Gauze, Gauze & Roll Secured with Gauze,Secured Tape with Tape -Aquacel AG 4x4 1 1 -Optilok 6.5x10 1 Right -Lotion applied to leg before No compression wrap -Multi-Layered Wrap Application Unna Boot - Unna Boot - Right ($) Right ($) -Compression Wrap Surepress ($) Vital Signs Temperature (97.8 F-99.1 F) 98.3 F Temperature Source Temporal Pulse Rate (60-100) 72 Pulse Location Monitor Blood Pressure (90/60-120/80) 135/79 H Blood Pressure Mean (mm Hg) 97 Source Monitor Pain Scale: 0-10 Numeric Is Patient Pain Free? Yes Yes Yes WC - Visit Discharge Discharge Condition Stable Stable Stable Ambulatory Status Ambulatory, Ambulatory, Ambulatory, Walker Walker Walker Transportation Private Auto Private Auto Private Auto Medication Reconcilliation completed & Yes provided to patient/care provider Clinical Summary of Care Provided Yes 08/18/21 09:28 Wound Care Nurse 3 #13 1st and 2nd web space right foot -Ulcer Cleansing Rinsed/ Irrigated with Saline -Foul Odor after Cleansing -Negative Pressure Wound Therapy -Primary Dressing Applied Aquacel AG 4x4 -Other Dressing abd -Primary Dressing Covered/Secured with Dry Gauze, Secured with Tape -Aquacel AG 4x4 1 -Aquacel Rope #12 Right Dorsal Foot -Ulcer Cleansing Rinsed/ Irrigated with Saline -Foul Odor after Cleansing -Negative Pressure Wound Therapy -Primary Dressing Applied -Primary Dressing Covered/Secured with Dry Gauze, Secured with Tape -Aquacel AG 4x4 -Optilok 6.5x10 Right -Lotion applied to leg before compression wrap -Multi-Layered Wrap Application -Compression Wrap Surepress ($) Vital Signs Temperature (97.8 F-99.1 F) Temperature Source Pulse Rate (60-100) Pulse Location Blood Pressure (90/60-120/80) Blood Pressure Mean (mm Hg) Source Pain Scale: 0-10 Numeric Is Patient Pain Free? Yes WC - Visit Discharge Discharge Condition Stable Ambulatory Status Walker Transportation [facility] Medication Reconcilliation completed & provided to patient/care provider Clinical Summary of Care Provided Assessment/Plan Assessment/Plan (1) Ulcer of right foot with fat layer exposed: CODE(S): L97.512 - Non-pressure chronic ulcer of other part of right foot with fat layer exposed (2) Venous insufficiency (chronic) (peripheral): CODE(S): I87.2 - Venous insufficiency (chronic) (peripheral) (3) Bilateral edema of lower extremity: CODE(S): R60.0 - Localized edema (4) Nonhealing nonsurgical wound limited to breakdown of skin: CODE(S): T14.8XXA - Other injury of unspecified body region, initial encounter (5) Tobacco abuse: CODE(S): Z72.0 - Tobacco use (6) Bipolar disorder: CODE(S): F31.9 - Bipolar disorder, unspecified QUALIFIERS: Active/Remission status: remission status unspecified Qualified Code(s): F31.9 - Bipolar disorder, unspecified (7) Obesity (BMI 30.0-34.9): CODE(S): E66.9 - Obesity, unspecified (8) Maceration of skin: CODE(S): L98.8 - Other specified disorders of the skin and subcutaneous tissue PLAN: Plan Patient seen and evaluated. Debridement was performed today with Misonix as noted in the clinical panel to all of the ulcer sites. He tolerated this well. Dorsal lateral right foot ulceration secondary to chronic venous insufficiency as well as maceration of the first webspace of the right foot. Maceration is improving, but still present to lateral foot. There is new skin formation overlying the dorsal lateral foot with a small portion of remaining wound overlying the fifth metatarsal base dorsally. Second webspace of the right foot remains healed. His wounds are complicated by chronic tobacco abuse and chronic venous insufficency. He is instructed to continue elevating his feet at times of rest. His wound site are continuing to make good progress in healing status and are continuing to demonstrate epithelialization at the dorsal distal aspect of the foot wound. Leg swelling has decreased but due to continued maceration we will switch to SurePress compression wrap to be changed daily. The following work up and care recommendations were made: Dressing: Adaptic to the wound bed, Aquacel Ag, Suprasorb, SurePress compression dressing, change daily. Aquacel rope AG between the toes with ABD padding, dressing between toes changed daily Wash: Soap and water Tissue growth optimization: None Offload: Elevate lower extremities at all times of rest Vascular: Arterial studies 04/19/[address] Lott demonstrate venous insufficiency, triphasic flow PATRICE 1.31 right and 1.41 left Edema: Elevate lower extremities at all times of rest, compression dressing Infection: No signs of infection. Pain: Well controlled today Host factors: He was advised on smoking cessation and how this will delay his wound healing. He states that he will not stop smoking and refuses to do so. His wound sites are still macerated at the first webspace but continuing to show improvement with less maceration today. He was instructed to maintain adequate protein intake to aid in his wound healing. I answered all the patient's questions. To return to the wound healing center in 2 weeks or call sooner if the patient has any questions or concerns. Note: [employer] speech recognition higher education administrator software was used to create portions of this document. Sound-alike and misspelled words, as well as other higher education administrator errors may be contained in the documentation.
[2021-09-01 09:21] VITALS: BP 118/85; PULSE 60; TEMP 36.3
--- NOTE | 2021-09-01 16:21 | PCM.WC.PN ---
History of Present Illness Date of Service: 09/01/21 Chief Complaint: Left and right foot maceration and dorsal foot ulcers History of Wound: This 60-year-old male with significant past medical history of bipolar disorder presents complaining of a left and right foot previous foot moisture and skin ulcers. He denies fever, chill, nausea, vomiting. He denies odor or drainage. He has discontinue dressing care and relates both feet are healed. He also completed a course of antibiotics. Subjective Subjective This 61-year-old man with significant past medical history of bipolar disorder presents to the wound care center today for follow-up of a right foot macerated webspaces and skin ulceration dorsal foot secondary to chronic venous insufficiency.? He denies any constitutional symptoms today.? States the nurse at his assisted living facility told him to go remove his dressings and leave his wounds open to air so that the foot would dry up. He states that he has not been wrapping his legs for the last week. He has no other complaints today. Objective Data Objective Data Vital Signs: Vital Signs Temp Pulse Resp BP 97.4 F L 60 16 118/85 H 09/01/21 09:21 09/01/21 09:21 08/18/21 09:02 09/01/21 09:21 Physical Exam Const alert, oriented x3 and no apparent distress General Appearance: cooperative and comfortable HEENT normocephalic Eyes General Eye: normal appearance of both eyes Neck General: normal visual inspection Lymph Lymphatic: no lymphadenopathy noted and no lymphedema noted Chest inspection of chest normal Resp normal respiratory effort Cardio regular rate and regular rhythm Extremity normal capillary refill, no calf tenderness and no pedal edema Extremity Narrative: He has diminished pulses DP and PT bilateral Muscle wasting noted bilateral Moderate nonpitting edema of bilateral extremities with varicosities and some hyperpigmentation of the lower extremity and dorsal foot Skin no rashes or lesions noted General Skin Exam: venous stasis and dermatitis; Negative for erythema Wound Narrative: Superficial ulceration noted to the dorsal lateral right foot with yellow fibrous tissue covering the wound bed. There is evidence of epithelialization at the lateral aspect of the wound and distally near the toes. No purulent drainage, no streaking, no odor, no maceration, or other localized signs of infection. Webspace one of the right foot demonstrates some maceration and superficial abrasion to the lateral hallux and medial second digit. No signs of infection. Neuro oriented x3 and moves all extremities Psych cooperative and affect normal Debridement Note Debridement Note Wound debrided: Right lateral foot and first webspace Laterality: Right Wound Grade/Stage: Monahan stage I Type of Debridement: Excisional debridement Anesthesia Used: 5% Lidocaine Gel Depth: Down to and including healthy tissue and in the subcutaneous layer Percentage of wound debrided: 100 Instrument Used: - (Misonix) Tissue Removed: Fibrous, devitalized subcutaneous, biofilm, slough Severity: Fat Layer Exposed Amount of bleeding with debridement: Mild Bleeding Controlled with: Compression and gauze Patient tolerated procedure: Patient tolerated procedure well Post-Debridement Measurements and Additional Note: Post-Debridement Measurements/Treatment - Nurse 1 - General Ulcer Assessment Start: 08/04/21 08:29 Freq: Status: Active Protocol: DORA Activity Type Activity Date Activity User E-sign Co-sign Detail Recorded Client Recorded Date Recorded By Document 08/04/21 08:30 KR [id number] 08/04/21 08:32 KR Document 08/09/21 12:52 AK [id number] 08/09/21 12:58 AK Document 08/11/21 08:59 AK [id number] 08/11/21 09:15 AK Document 08/18/21 09:02 ML [id number] 08/18/21 09:04 ML Document 09/01/21 09:21 KR [id number] 09/01/21 09:25 KR 08/04/21 08/09/21 08/11/21 08:30 12:52 08:59 - Today's Visit Information Type of service Follow-up Visit Nurse-only Follow-up Visit (Physician/PAPER MACHINE BACK TENDER Visit (Physician/PAPER MACHINE BACK TENDER ) ) Arrival Mode Ambulatory, Ambulatory, Ambulatory, Walker Walker Walker Transfer Assistance Patient Identification Verified (Name & Yes Yes ) Patient Requires Transmission-Based No Precautions Safety Precautions NA Vital Signs Temperature (97.8 F-99.1 F) 96.0 F L 98.3 F 95.7 F L Temperature Source Temporal Temporal Temporal Pulse Rate (60-100) 76 72 68 Pulse Location Monitor Monitor Monitor Respiratory Rate (12-18) Respiratory rate source Blood Pressure (90/60-120/80) 133/73 H 135/79 H 118/66 Blood Pressure Mean (mm Hg) 93 97 83 Source Monitor Monitor Monitor Position Semi-Fowlers Sitting Blood Pressure Location Left Arm Right Arm History Since Last Visit- (Skip if this is Patient's initial visit) Have you changed medications since your No No No last visit? Any new allergies or adverse reactions No No No Had a fall/change in ADL's that may No No No increase risk of falls Signs or symptoms of abuse and/or No No No neglect since last visit Have you been in the hospital since your No No No last visit? Has dressing in place as prescribed Yes Yes Yes Has compression in place as prescribed Yes Yes Yes Has offloadiing in place as prescribed N/A N/A N/A Experienced any changes in pain level or No No No management Left Footwear Surgical Shoe Regular Shoe Slipper with pressure relief insole Right Footwear Surgical Shoe Regular Shoe Slipper with pressure relief insole Pain Scale: 0-10 Numeric Is Patient Pain Free? Yes Yes Yes 08/18/21 09/01/21 09:02 09:21 WC - Today's Visit Information Type of service Follow-up Visit Follow-up Visit (Physician/PAPER MACHINE BACK TENDER (Physician/PAPER MACHINE BACK TENDER ) ) Arrival Mode Ambulatory, Walker Walker Transfer Assistance None Patient Identification Verified (Name & Yes Yes ) Patient Requires Transmission-Based No Precautions Safety Precautions NA Vital Signs Temperature (97.8 F-99.1 F) 98.1 F 97.4 F L Temperature Source Temporal Temporal Pulse Rate (60-100) 63 60 Pulse Location Monitor Monitor Respiratory Rate (12-18) 16 Respiratory rate source Observation Blood Pressure (90/60-120/80) 125/68 H 118/85 H Blood Pressure Mean (mm Hg) 87 96 Source Monitor Monitor Position Sitting Semi-Fowlers Blood Pressure Location Left Arm Left Arm History Since Last Visit- (Skip if this is Patient's initial visit) Have you changed medications since your No No last visit? Any new allergies or adverse reactions No No Had a fall/change in ADL's that may No No increase risk of falls Signs or symptoms of abuse and/or No No neglect since last visit Have you been in the hospital since your No No last visit? Has dressing in place as prescribed Yes Yes Has compression in place as prescribed Yes No Has offloadiing in place as prescribed Yes N/A Experienced any changes in pain level or No No management Left Footwear Custom Shoe Regular Shoe Right Footwear Custom Shoe Regular Shoe Pain Scale: 0-10 Numeric Is Patient Pain Free? Yes Yes WC - Nurse 1 - General Ulcer Measurement Start: 08/04/21 08:29 Freq: Status: Active Protocol: Activity Type Activity Date Activity User E-sign Co-sign Detail Recorded Client Recorded Date Recorded By Document 08/04/21 08:30 KR [id number] 08/04/21 08:32 KR Document 08/11/21 08:59 AK [id number] 08/11/21 09:15 AK Document 08/18/21 09:02 ML [id number] 08/18/21 09:04 ML Document 09/01/21 09:21 KR [id number] 09/01/21 09:25 KR 08/04/21 08/11/21 08/18/21 08:30 08:59 09:02 Wound Center Nurse 1 #13 1st and 2nd web space right foot -Combined with other wound No -Current Size (cm) - Length 1.3 2.6 0.1 -Current Size (cm) - Width 0.1 3.5 0.1 -Current Size (cm) - Depth 0.1 0.1 0.1 -Total Square Cm 0.13 9.10 0.01 -Photo Taken No -Epithelialization None Present -Tunneling No -Undermining/Tunneling No -Circular Undermining No -Change in Wound Grade/Stage No -Exudate Amt Small Medium Medium -Exudate Type Serosanguineous Serosanguineous Serous -Wound Margin Distinct, Distinct, Distinct, Outline Outline Outline Attached Attached Attached -Granulation Amt Medium (34-66%) Medium (34-66%) Medium (34-66%) -Granulation Quality [place] -Slough/Fibrin Yes -Necrosis Amt Medium (34-66%) Medium (34-66%) Medium (34-66%) -Necrotic Tissue Type Adherent Slough Adherent Slough Adherent Slough -Structure Exposed N/A -Texture (Brandi-wound Skin Appearance) Assessed, Assessed, Assessed Scarring Scarring -Moisture (Brandi-wound Skin Appearance) No Abnormality, Assessed, Assessed Assessed Maceration -Color (Brandi-wound Skin Appearance) No Abnormality, Assessed, Assessed Assessed Erythema -Temperature (Brandi-wound Skin No Abnormality No Abnormality No Abnormality Appearance) (Pt Warm) (Pt Warm) (Pt Warm) -Tenderness on Palpation (Brandi-wound No No No Skin Appearance) -Ulcer Cleansing Soap and Water Rinsed/ Soap and Water Irrigated with Saline -Foul Odor after Cleansing No No No -Anesthetic Used 4% Lidocaine 5% Lidocaine 5% Lidocaine Solution Gel Gel #12 Right Dorsal Foot -Current Size (cm) - Length 0.1 7 3 -Current Size (cm) - Width 0.1 8.4 2 -Current Size (cm) - Depth 0.1 0.1 0.1 -Total Square Cm 0.01 58.8 6 -Photo Taken No -Epithelialization None Present -Tunneling No -Undermining/Tunneling No -Circular Undermining No -Change in Wound Grade/Stage Yes -Exudate Amt None Present Large Medium -Exudate Type Yellow/Green Serous -Wound Margin Distinct, Distinct, Distinct, Outline Outline Outline Attached Attached Attached -Granulation Amt None Present (0 None Present (0 Medium (34-66%) %) %) -Granulation Quality N/A Pale -Slough/Fibrin Yes Yes -Necrosis Amt None Present (0 Medium (34-66%) Medium (34-66%) %) -Necrotic Tissue Type Adherent Slough Adherent Slough -Structure Exposed N/A -Texture (Brandi-wound Skin Appearance) Assessed, No Abnormality, Assessed Scarring Assessed -Moisture (Brandi-wound Skin Appearance) No Abnormality, Assessed, Assessed Assessed Maceration -Color (Brandi-wound Skin Appearance) No Abnormality, No Abnormality, Assessed Assessed Assessed, Hemosiderin Staining -Temperature (Brandi-wound Skin No Abnormality No Abnormality No Abnormality Appearance) (Pt Warm) (Pt Warm) (Pt Warm) -Tenderness on Palpation (Brandi-wound No No No Skin Appearance) -Ulcer Cleansing Soap and Water Rinsed/ Soap and Water Irrigated with Saline -Foul Odor after Cleansing No No -Anesthetic Used 4% Lidocaine 5% Lidocaine 5% Lidocaine Solution Gel Gel Right Calf (cm) 37.6 Right Ankle (cm) 26.3 09/01/ 09:21 Wound Center Nurse 1 #13 1st and 2nd web space right foot -Combined with other wound -Current Size (cm) - Length 2 -Current Size (cm) - Width 1.9 -Current Size (cm) - Depth 0.1 -Total Square Cm 3.8 -Photo Taken -Epithelialization -Tunneling -Undermining/Tunneling -Circular Undermining -Change in Wound Grade/Stage -Exudate Amt Small -Exudate Type Serosanguineous -Wound Margin Distinct, Outline Attached -Granulation Amt Medium (34-66%) -Granulation Quality [place] -Slough/Fibrin -Necrosis Amt None Present (0 %) -Necrotic Tissue Type -Structure Exposed -Texture (Brandi-wound Skin Appearance) Assessed, Scarring -Moisture (Brandi-wound Skin Appearance) No Abnormality, Assessed -Color (Brandi-wound Skin Appearance) No Abnormality, Assessed -Temperature (Brandi-wound Skin No Abnormality Appearance) (Pt Warm) -Tenderness on Palpation (Brandi-wound Skin Appearance) -Ulcer Cleansing Rinsed/ Irrigated with Saline -Foul Odor after Cleansing No -Anesthetic Used 4% Lidocaine Solution #12 Right Dorsal Foot -Current Size (cm) - Length 3.1 -Current Size (cm) - Width 3 -Current Size (cm) - Depth 0.1 -Total Square Cm 9.3 -Photo Taken -Epithelialization -Tunneling -Undermining/Tunneling -Circular Undermining -Change in Wound Grade/Stage -Exudate Amt None Present -Exudate Type -Wound Margin Thickened -Granulation Amt -Granulation Quality -Slough/Fibrin -Necrosis Amt None Present (0 %) -Necrotic Tissue Type Adherent Slough -Structure Exposed -Texture (Brandi-wound Skin Appearance) No Abnormality, Scarring -Moisture (Brandi-wound Skin Appearance) Assessed,Dry/ Scaly -Color (Brandi-wound Skin Appearance) No Abnormality, Assessed -Temperature (Brandi-wound Skin No Abnormality Appearance) (Pt Warm) -Tenderness on Palpation (Brandi-wound No Skin Appearance) -Ulcer Cleansing Rinsed/ Irrigated with Saline -Foul Odor after Cleansing No -Anesthetic Used 4% Lidocaine Solution Right Calf (cm) 40.3 Right Ankle (cm) 33.1 WC - Nurse 2 - General Ulcer CM Notes Start: 08/04/21 08:29 Freq: Status: Active Protocol: Activity Type Activity Date Activity User E-sign Co-sign Detail Recorded Client Recorded Date Recorded By Document 08/04/21 13:28 PL [id number] 08/04/21 13:32 PL Document 08/11/21 09:37 MOSHE [id number] 08/11/21 09:41 JF Document 08/18/21 09:49 PL [id number] 08/18/21 09:51 PL Document 09/01/21 12:21 PL [id number] 09/01/21 12:23 PL 08/04/21 08/11/21 08/18/21 13:28 09:37 09:49 Wound Center Nurse 2 #13 1st and 2nd web space right foot -Time 08:58 09:37 09:17 -Correct Patient Yes Yes Yes -Correct Side, Site, Position Yes Yes Yes -Correct Procedure Yes Yes Yes -Procedure Performed Yes Yes Yes -Type of Procedure Debridement Debridement Debridement -Clinical Debridement Subcutaneous Subcutaneous Subcutaneous -Tissue Removed Subcutaneous Subcutaneous Subcutaneous -Post Debridement (cm) - Length 1.3 2.0 0.1 -Post Debridement (cm) - Width 0.1 2.5 0.1 -Post Debridement (cm) - Depth 0.1 0.1 0.1 -Total Square (Post) (cm) 0.13 5.00 0.01 -Area of Debridement (cm) - Length 1.3 2.0 0.1 -Area of Debridement (cm) - Width 0.1 2.5 0.1 -Total Square (Area) (cm) 0.13 5.00 0.01 -Tunneling No No No -Undermining/Tunneling No No No -Circular Undermining No No No -Wound/Ulcer Outcome Not Healed Not Healed Not Healed -Ulcer Cleansing Rinsed/ Rinsed/ Rinsed/ Irrigated with Irrigated with Irrigated with Saline Saline Saline -Foul Odor after Cleansing No No No -Bioengineered Tissue No No No -Bleeding Controlled with Pressure Pressure Pressure -Treatment Response Procedure Procedure Procedure Tolerated Well Tolerated Well Tolerated Well -Offloading No -Debridement - Subq, 1st 20sq cm No No No #12 Right Dorsal Foot -Time 08:58 09:38 09:17 -Correct Patient Yes Yes Yes -Correct Side, Site, Position Yes Yes Yes -Correct Procedure Yes Yes Yes -Procedure Performed Yes Yes Yes -Type of Procedure Debridement Debridement Debridement -Clinical Debridement Subcutaneous Subcutaneous Subcutaneous -Tissue Removed Subcutaneous Subcutaneous Subcutaneous -Post Debridement (cm) - Length 12 2.7 3.0 -Post Debridement (cm) - Width 10 2.0 2.0 -Post Debridement (cm) - Depth 0.1 0.1 0.1 -Total Square (Post) (cm) 120 5.40 6.00 -Area of Debridement (cm) - Length 12 2.7 3 -Area of Debridement (cm) - Width 10 2.0 2.0 -Total Square (Area) (cm) 120 5.40 6.0 -Tunneling No No No -Undermining/Tunneling No No No -Circular Undermining No No No -Wound/Ulcer Outcome Not Healed Amputation Healed- Surgical Closure -Ulcer Cleansing Rinsed/ Rinsed/ Irrigated with Irrigated with Saline Saline -Foul Odor after Cleansing No No -Bioengineered Tissue No No No -Bleeding Controlled with Pressure Pressure Pressure -Treatment Response Procedure Procedure Procedure Tolerated Well Tolerated Well Tolerated Well -Offloading No -Debridement - Subq, 1st 20sq cm Yes Yes Yes -Debridement, SubQ, ea addt'l 20sq cm 5 or part thereof Pain Scale: 0-10 Numeric Is Patient Pain Free? Yes Yes Yes 09/01/21 12:21 Wound Center Nurse 2 #13 1st and 2nd web space right foot -Time 09:51 -Correct Patient Yes -Correct Side, Site, Position Yes -Correct Procedure Yes -Procedure Performed Yes -Type of Procedure Debridement -Clinical Debridement Subcutaneous -Tissue Removed Subcutaneous -Post Debridement (cm) - Length 2.0 -Post Debridement (cm) - Width 1.9 -Post Debridement (cm) - Depth 0.1 -Total Square (Post) (cm) 3.80 -Area of Debridement (cm) - Length 2.0 -Area of Debridement (cm) - Width 1.9 -Total Square (Area) (cm) 3.80 -Tunneling No -Undermining/Tunneling No -Circular Undermining No -Wound/Ulcer Outcome Not Healed -Ulcer Cleansing Rinsed/ Irrigated with Saline -Foul Odor after Cleansing No -Bioengineered Tissue No -Bleeding Controlled with Pressure -Treatment Response Procedure Tolerated Well -Offloading -Debridement - Subq, 1st 20sq cm No #12 Right Dorsal Foot -Time 09:51 -Correct Patient Yes -Correct Side, Site, Position Yes -Correct Procedure Yes -Procedure Performed Yes -Type of Procedure Debridement -Clinical Debridement Subcutaneous -Tissue Removed Subcutaneous -Post Debridement (cm) - Length 3.1 -Post Debridement (cm) - Width 3.0 -Post Debridement (cm) - Depth 0.1 -Total Square (Post) (cm) 9.30 -Area of Debridement (cm) - Length 3.1 -Area of Debridement (cm) - Width 3.0 -Total Square (Area) (cm) 9.30 -Tunneling No -Undermining/Tunneling No -Circular Undermining No -Wound/Ulcer Outcome Not Healed -Ulcer Cleansing Rinsed/ Irrigated with Saline -Foul Odor after Cleansing No -Bioengineered Tissue No -Bleeding Controlled with Pressure -Treatment Response Procedure Tolerated Well -Offloading -Debridement - Subq, 1st 20sq cm Yes -Debridement, SubQ, ea addt'l 20sq cm or part thereof Pain Scale: 0-10 Numeric Is Patient Pain Free? Yes WC - Nurse 3 - General Ulcer D/C NN Start: 08/04/21 08:29 Freq: Status: Active Protocol: Activity Type Activity Date Activity User E-sign Co-sign Detail Recorded Client Recorded Date Recorded By Document 08/04/21 09:27 KR [id number] 08/04/21 09:28 KR Edit Result 08/04/21 09:27 KR (1) [id number] 08/05/21 06:28 PL Document 08/09/21 12:52 AK [id number] 08/09/21 12:58 AK Document 08/11/21 09:54 KR [id number] 08/11/21 09:55 KR Document 08/18/21 09:28 KR [id number] 08/18/21 09:29 KR Document 09/01/21 10:04 KR [id number] 09/01/21 10:05 KR (1) Right - Multi-Layered Wrap Application => Unna Boot - Right => ($) 08/04/21 08/09/21 08/11/21 09:27 12:52 09:54 Wound Care Nurse 3 #13 1st and 2nd web space right foot -Ulcer Cleansing Rinsed/ Rinsed/ Irrigated with Irrigated with Saline Saline -Foul Odor after Cleansing No -Negative Pressure Wound Therapy N/A -Primary Dressing Applied Aquacel Rope Aquacel Rope Aquacel AG 4x4 -Other Dressing -Primary Dressing Covered/Secured with Dry Gauze,Dry Dry Gauze & Dry Gauze, Gauze & Roll Roll Gauze, Secured with Gauze,Secured Secured with Tape with Tape Tape -Aquacel AG 4x4 1 -Aquacel Rope 1 1 #12 Right Dorsal Foot -Ulcer Cleansing Rinsed/ Rinsed/ Irrigated with Irrigated with Saline Saline -Foul Odor after Cleansing No -Negative Pressure Wound Therapy N/A -Primary Dressing Applied Aquacel AG 4x4 Aquacel AG 4x4, Optilok 6.5x10 -Other Dressing -Primary Dressing Covered/Secured with Dry Gauze,Dry Dry Gauze, Gauze & Roll Secured with Gauze,Secured Tape with Tape -Aquacel AG 4x4 1 1 -Optilok 6.5x10 1 Right -Lotion applied to leg before No compression wrap -Multi-Layered Wrap Application Unna Boot - Unna Boot - Right ($) Right ($) -Compression Wrap Surepress ($) Vital Signs Temperature (97.8 F-99.1 F) 98.3 F Temperature Source Temporal Pulse Rate (60-100) 72 Pulse Location Monitor Blood Pressure (90/60-120/80) 135/79 H Blood Pressure Mean (mm Hg) 97 Source Monitor Pain Scale: 0-10 Numeric Is Patient Pain Free? Yes Yes Yes WC - Visit Discharge Discharge Condition Stable Stable Stable Ambulatory Status Ambulatory, Ambulatory, Ambulatory, Walker Walker Walker Transportation Private Auto Private Auto Private Auto Accompanied by Medication Reconcilliation completed & Yes provided to patient/care provider Clinical Summary of Care Provided Yes 08/18/21 09/01/21 09:28 10:04 Wound Care Nurse 3 #13 1st and 2nd web space right foot -Ulcer Cleansing Rinsed/ Rinsed/ Irrigated with Irrigated with Saline Saline -Foul Odor after Cleansing -Negative Pressure Wound Therapy -Primary Dressing Applied Aquacel AG 4x4 Aquacel AG 4x4 -Other Dressing abd betadine -Primary Dressing Covered/Secured with Dry Gauze, Dry Gauze,Dry Secured with Gauze & Roll Tape Gauze,Secured with Tape -Aquacel AG 4x4 1 1 -Aquacel Rope #12 Right Dorsal Foot -Ulcer Cleansing Rinsed/ Rinsed/ Irrigated with Irrigated with Saline Saline -Foul Odor after Cleansing -Negative Pressure Wound Therapy -Primary Dressing Applied -Other Dressing betadine -Primary Dressing Covered/Secured with Dry Gauze, Dry Gauze, Secured with Secured with Tape Tape -Aquacel AG 4x4 -Optilok 6.5x10 Right -Lotion applied to leg before compression wrap -Multi-Layered Wrap Application -Compression Wrap Surepress ($) Vital Signs Temperature (97.8 F-99.1 F) Temperature Source Pulse Rate (60-100) Pulse Location Blood Pressure (90/60-120/80) Blood Pressure Mean (mm Hg) Source Pain Scale: 0-10 Numeric Is Patient Pain Free? Yes Yes WC - Visit Discharge Discharge Condition Stable Stable Ambulatory Status Walker Walker Transportation [facility] Accompanied by [facility] Medication Reconcilliation completed & provided to patient/care provider Clinical Summary of Care Provided Assessment/Plan Assessment/Plan (1) Ulcer of right foot with fat layer exposed: CODE(S): L97.512 - Non-pressure chronic ulcer of other part of right foot with fat layer exposed (2) Venous insufficiency (chronic) (peripheral): CODE(S): I87.2 - Venous insufficiency (chronic) (peripheral) (3) Bilateral edema of lower extremity: CODE(S): R60.0 - Localized edema (4) Nonhealing nonsurgical wound limited to breakdown of skin: CODE(S): T14.8XXA - Other injury of unspecified body region, initial encounter (5) Tobacco abuse: CODE(S): Z72.0 - Tobacco use (6) Bipolar disorder: CODE(S): F31.9 - Bipolar disorder, unspecified QUALIFIERS: Active/Remission status: remission status unspecified Qualified Code(s): F31.9 - Bipolar disorder, unspecified (7) Obesity (BMI 30.0-34.9): CODE(S): E66.9 - Obesity, unspecified (8) Maceration of skin: CODE(S): L98.8 - Other specified disorders of the skin and subcutaneous tissue PLAN: Plan Patient seen and evaluated. Debridement was performed today with Misonix as noted in the clinical panel to all of the ulcer sites. He tolerated this well. Dorsal lateral right foot ulceration secondary to chronic venous insufficiency as well as maceration of the first webspace of the right foot. Maceration has returned to the first webspace and lateral foot with the leg significantly more edematous. There is new skin formation overlying the dorsal lateral foot with a small portion of remaining wound overlying the fifth metatarsal base dorsally. Second webspace of the right foot remains healed. His wounds are complicated by chronic tobacco abuse and chronic venous insufficency. He is instructed to continue elevating his feet at times of rest. His wound site are continuing to make good progress in healing status and are continuing to demonstrate epithelialization at the dorsal distal aspect of the foot wound. SurePress compression wrap applied to right leg to be changed daily. Note will be sent to his assisted living facility outlining these dressing changes, and to not leave it open to air, and to ensure the legs remain wrapped at all times. The following work up and care recommendations were made: Dressing: Betadine, Aquacel Ag, Suprasorb, SurePress compression dressing, change daily. Betadine, Aquacel rope AG between the toes with ABD padding, dressing between toes changed daily Wash: Soap and water Tissue growth optimization: None Offload: Elevate lower extremities at all times of rest Vascular: Arterial studies 04/19/[address] Lott demonstrate venous insufficiency, triphasic flow PATRICE 1.31 right and 1.41 left Edema: Elevate lower extremities at all times of rest, compression dressing Infection: No signs of infection. Pain: Well controlled today Host factors: He was advised on smoking cessation and how this will delay his wound healing. He states that he will not stop smoking and refuses to do so. His wound sites are still macerated at the first webspace. He was told to leave his dressings in place and to not remove them. He was instructed to maintain adequate protein intake to aid in his wound healing. I answered all the patient's questions. To return to the wound healing center in 1 week or call sooner if the patient has any questions or concerns. Note: [employer] speech recognition mortgage loan reviewer software was used to create portions of this document. Sound-alike and misspelled words, as well as other mortgage loan reviewer errors may be contained in the documentation.
== END 2021-09-01 23:59 | disposition home or self-care (01) ==
LOC: WC 09:00
PROVIDERS: PCP Nurse Practitioner Adult Health; Visit Provider Student in an Organized Health Care Education/Training Program
DX: L97.512 Non-pressure chronic ulcer of other part of right foot with fat layer exposed (principal); F31.9 Bipolar disorder, unspecified; L98.8 Other specified disorders of the skin and subcutaneous tissue; R60.0 Localized edema; I87.2 Venous insufficiency (chronic) (peripheral); E66.9 Obesity, unspecified; Z72.0 Tobacco use
CPT/HCPCS: 11042; 11045; 29580

== ENCOUNTER 2021-09-25 14:00 | Emergency (ER) | payer MEDICARE, MEDICAID, SELFPAY ==
[2021-09-25 14:02] VITALS: BP 139/68; PULSE 88; RESP 16; TEMP 36.5; O2SAT 98; BMI 30.1
--- NOTE | 2021-09-25 14:20 | RAD_ITS ---
EXAM: XR RIGHT FOOT COMPLETE, 3 OR MORE VIEWS CLINICAL INDICATION: wound TECHNIQUE: Frontal, lateral and oblique views of the right foot. This report was created using [employer] report generation technology. COMPARISON: None. FINDINGS: BONES/JOINTS: Unremarkable. No acute fracture. No subluxation. Normal alignment. Preservation of the joint space. No sclerotic or destructive changes observed. SOFT TISSUES: There is non specific soft tissue swelling. No radiopaque foreign body. RAD/Foot min 3 Views IMPRESSION: There is non specific soft tissue swelling. Electronically Signed: Enrrique Freed MD at 15:08 EDT ,
--- NOTE | 2021-09-25 14:21 | ED.VIS.LOWEX ---
HPI History of Present Illness Chief Complaint: Wound Check Detail of Chief Complaint: Wound to right foot Narrative Narrative: Patient presents to the emergency department with a wound to the right foot that he is chronically being treated for at the wound care center. Patient sees Dr. Marie there and has the wound debrided weekly. He was sent in today when staff at the assisted living facility here staying and noted that he had a maggot on the wound. The magnet was there last evening and patient recalls pulling off his foot. Patient denies fever. He denies other injury to the foot. No other complaints at this time. [facility] Medical History (Updated 09/25/21 @ 15:[address] Em Jones, DO) Aspiration pneumonia Bipolar disorder COPD exacerbation GERD (gastroesophageal reflux disease) Hypoxemia Schizophrenia Sepsis Tobacco abuse Home Medications benztropine 2 mg tablet 1 mg PO QHS 02/18/15 [History Last Taken Unknown] lithium carbonate 300 mg tablet,extended release 600 mg PO QHS 02/18/15 [History Last Taken Unknown] olanzapine 10 mg tablet 10 mg PO DAILY 02/18/15 [History Last Taken Unknown] omeprazole 20 mg capsule,delayed release 20 mg PO BID 02/18/15 [History Last Taken Unknown] spironolactone 25 mg tablet 25 mg PO DAILY 02/18/15 [History Last Taken Unknown] fluphenazine decanoate 25 mg/mL injection solution 25 mg IJ X1 PARANOID SCHIZOPHRENIA 07/29/16 [History Last Taken Unknown] multivitamin,[id number] 27 mg-0.4 mg tablet 1 tab PO DAILYCM 08/01/16 [Rx Last Taken Unknown] acetaminophen 500 mg tablet (Pharbetol) 1,000 mg PO TID PRN Pain 05/02/18 [History Last Taken Unknown] albuterol sulfate 90 mcg/actuation aerosol inhaler (Ventolin HFA) 2 puff inhalation Q4H PRN PRN Sob &/Or Wheezing 05/02/18 [History Last Taken Unknown] cholestyramine-aspartame 4 gram oral powder for susp in a packet (Cholestyramine Light) 4 g PO DAILY 05/02/18 [History Last Taken Unknown] docusate sodium 100 mg capsule (DOK) 100 mg PO BID PRN Constipation 05/02/18 [History Last Taken Unknown] ergocalciferol (vitamin D2) 1,250 mcg (50,000 unit) capsule (Vitamin D2) 50,000 unit PO QWEEK 05/02/18 [History Last Taken Unknown] fluticasone propionate 50 mcg/actuation nasal spray,suspension 1 spray DAILY PRN Allergies 05/02/18 [History Last Taken Unknown] guaifenesin 400 mg tablet (Mucus Relief) 400 mg PO Q8H PRN Cough 05/02/18 [History Last Taken Unknown] montelukast 10 mg tablet 10 mg PO DAILY 05/02/18 [History Last Taken Unknown] naproxen 500 mg tablet 500 mg PO DAILY PRN PRN ARTHRITIS 05/02/18 [History Last Taken Unknown] nicotine 7 mg/24 hr daily transdermal patch 1 ea transdermal DAILY PRN Smoking Cessation 05/02/18 [History Last Taken Unknown] olanzapine 20 mg tablet (Zyprexa) 20 mg PO QHS 05/02/18 [History Last Taken Unknown] omega-3 fatty acids-fish oil 300 mg-1,000 mg capsule 2 capsule PO BID 05/02/18 [History Last Taken Unknown] polyethylene glycol 3350 17 gram oral powder packet 17 g PO DAILY PRN Constipation 05/02/18 [History Last Taken Unknown] simvastatin 20 mg tablet (Zocor) 20 mg PO QHS 05/02/18 [History Last Taken Unknown] cholecalciferol (vitamin D3) 50 mcg (2,000 unit) capsule 2,000 unit PO DAILY 12/24/18 [History Last Taken Unknown] fluconazole 150 mg tablet 150 mg PO QWEEK #2 tabs 12/24/18 [Rx Last Taken Unknown] ketoconazole 2 % topical cream 1 applic topical DAILY #1 tube 12/24/18 [Rx Last Taken Unknown] levofloxacin 500 mg tablet 500 mg PO DAILY 12/10/19 [History Last Taken Unknown] Allergy/AdvReac Type Severity Reaction Status Date / Time codeine AdvReac Upset Verified 09/25/21 14:01 Stomach haloperidol [From Haldol] AdvReac Abd Verified 09/25/21 14:01 cramps/diarrhea haloperidol lactate AdvReac Abd Verified 09/25/21 14:01 [From Haldol] cramps/diarrhea ziprasidone AdvReac Unknown Verified 09/25/21 14:01 Family History Mother Diabetes Surgical History History of esophagogastroduodenoscopy (EGD) S/P bilateral inguinal hernia repair S/P laparoscopic cholecystectomy S/P right knee arthroscopy Social History (Updated 07/23/17 @ 13:[address] Korey Mosqueda MD) Smoking Status: Current every day smoker tobacco type: cigarettes ROS ROS ED Review of Systems ROS Unobtainable: other Constitutional Constitutional ED: Reports lethargy; Denies chills, fever(s), sweats or weight loss Eyes Eyes: Denies blurry vision, change in vision or diplopia ENT ENT ED: Denies rhinorrhea or sore throat Cardiovascular Cardiovascular: Denies chest pain, orthopnea or racing heartbeat Respiratory/Chest Respiratory/Chest: Reports dyspnea and dyspnea on exertion; Denies cough, orthopnea or sputum Gastrointestinal Gastrointestinal: Denies abdominal pain, diarrhea, nausea or vomiting Genitourinary Genitourinary ED: Denies dysuria, hematuria or urinary frequency Musculoskeletal Musculoskeletal: Reports other Details: Wound to right foot ; Denies arthralgias, back pain, myalgias or neck pain Integumentary Denies abscess, Abrasions or rash Neurologic Neurologic: Denies headache(s) or weakness Psychiatric Psychiatric: Denies anxiety, depression or suicidal thoughts Endocrine Endocrinology: Denies polydipsia, polyphagia or polyuria Hematologic/Lymphatic Hematologic/Lymphatic: Denies easy bleeding, easy bruising or lymphadenopathy Allergic/Immunologic Allergic/Immunologic ED: Denies mouth swelling, tongue swelling or urticaria EXAM Physical Exam Const Vital Signs: 09/25/21 14:02 Temperature 97.7 F L Temperature Source Temporal Pulse Rate 88 Respiratory Rate 16 Blood Pressure 139/68 H Blood Pressure Mean 91 Pulse Ox 98 Oxygen Delivery Method Room Air Positive well nourished and well developed General Appearance ED: well developed and NAD HEENT Reports TM's clear and moist mucous membranes normocephalic and atraumatic; Negative for trauma or tenderness Tympanic Membrane ED: Yes TM's clear Eyes PERRL and EOMs intact bilaterally General Eye ED: Negative for pale conjunctiva or scleral icterus Neck no lymphadenopathy, supple and no JVD General: Negative for tenderness Chest Wall inspection of chest normal and palpation of chest normal Chest: Negative for tenderness Resp normal respiratory effort and clear to auscultation bilaterally Effort and Inspection: Negative for respiratory distress or pain with movement Auscultation: Negative for rhonchi, wheezes or diminished lung sounds Cardio regular rate, regular rhythm, S1 normal heart sound, S2 normal heart sound and no murmurs Peripheral Pulses: pulses 2+ throughout GI normal to inspection, nondistended, normoactive bowel sounds, soft to palpation, non-tender, non-distended and no masses Back/Spine no CVA tenderness and no thoracic nor lumbar tenderness Extremity Extremity Narrative: Right foot-patient came in with a dressing on his right foot. The dressing was removed. Patient has some faint erythema and excoriated skin between the big toe and the second toe. She had some diffuse soft tissue swelling and chronic stasis changes of the skin. Patient has a braised and denuded skin between the toes. No deep wounds noted. No gas palpated in the tissues. Normal pulses. No significant cellulitic changes noted. General Extremety ED: Negative for edema General Extremity: Negative for edema Neuro oriented x3, CN's II-XII intact bilaterally, no sensory deficits noted and gait normal Sensorium / Orientation: awake, alert, oriented to person, oriented to place and oriented to time Motor Exam: strength 5/5 throughout and strength abnormal Psych mental status grossly normal Skin no rashes or lesions noted and no wounds MDM MDM MDM Narrative Medical decision making narrative: IV line established on arrival. Patient had lab work that was normal. Chemistries unremarkable. Sed rate was normal at 17. CRP was slightly elevated 12.2. Patient had an x-ray of the right foot that showed nonspecific soft tissue swelling without evidence of osteomyelitis. No gas in the tissues noted. I did discuss case with podiatry on-call Dr. Alcaraz who recommended patient keep his appointment for follow-up with the wound center in 4 days. I do not feel further treatment is indicated at this time. I do not see evidence of infection at this time. Lab Data Attestation: I reviewed the patient's lab results. Labs: Laboratory Results - last 24 hr 09/25/21 09/25/21 14:42 14:42 WBC 6.2 RBC 4.39 L Hgb 15.5 Hct 46.4 MCV 105.7 H MCH 35.3 H MCHC 33.4 RDW Std Deviation 50.3 H RDW Coeff of Babatunde 12.8 Plt Count 183 MPV 8.8 Immature Gran % (Auto) 0.200 Neut % (Auto) 65.7 Lymph % (Auto) 20.1 [place] % (Auto) 8.2 Eos % (Auto) 5.0 Baso % (Auto) 0.8 Absolute Neuts (auto) 4.1 Absolute Lymphs (auto) 1.25 Nucleated RBC % 0 ESR 17 Sodium 139 Potassium 4.0 Chloride 108 H Carbon Dioxide 31.0 Anion Gap 0 L BUN 6 L Creatinine 1.15 Estim Creat Clear Calc 69.16 Est GFR (MDRD) Af Amer 84 Est GFR (MDRD) Non-Af 69 BUN/Creatinine Ratio 5.2 L Glucose 101 Calcium 9.6 C-React Prot Ext Range 12.20 H Radiography Diagnostic Testing: Clinical Impression(s) from Imaging Studies Foot X-Ray 09/25/21 14:20 IMPRESSION: There is non specific soft tissue swelling. Electronically Signed: Enrrique Freed MD at 15:08 EDT Reading Location ID and State: [facility] / [place] , Service support , Discharge Plan Triage Chief Complaint: Wound Check ED Provider: Em Jones Dx/Rx/DC Orders Clinical Impression: Wound of right foot Instructions: ED Wound Check (No Infection) Prescriptions: No Action olanzapine 10 MG tablet 10 mg PO DAILY lithium carbonate 300 MG tablet extended release 600 mg PO QHS spironolactone 25 MG tablet 25 mg PO DAILY benztropine 2 MG tablet 1 mg PO QHS omeprazole 20 MG capsule 20 mg PO BID fluphenazine decanoate 25 MG/ML solution 25 mg IJ X1 MDD Q 2 WEEKS multivitamin,[id number] 1 TABLET tablet 1 tab PO DAILYCM 0RF polyethylene glycol 3350 17 GM powder in packet 17 g PO DAILY PRN (Reason: Constipation) docusate sodium [DOK] 100 MG capsule 100 mg PO BID PRN (Reason: Constipation) fluticasone propionate 1 SPRAY Nasal.Sry 1 spray NASAL DAILY PRN (Reason: Allergies) acetaminophen [Pharbetol] 500 MG tablet 1,000 mg PO TID PRN (Reason: Pain) simvastatin [Zocor] 20 MG tablet 20 mg PO QHS montelukast 10 MG tablet 10 mg PO DAILY ergocalciferol (vitamin D2) [Vitamin D2] 50,000 UNIT capsule 50,000 unit PO QWEEK albuterol sulfate [Ventolin HFA] 1 INHALER inhaler 2 puff inhalation Q4H PRN PRN (Reason: Sob &/Or Wheezing) olanzapine [Zyprexa] 20 MG tablet 20 mg PO QHS naproxen 500 MG tablet 500 mg PO DAILY PRN PRN (Reason: ARTHRITIS) nicotine 7 MG patch 24 hour 1 ea transdermal DAILY PRN (Reason: Smoking Cessation) guaifenesin [Mucus Relief] 400 MG tablet 400 mg PO Q8H PRN (Reason: Cough) cholestyramine-aspartame [Cholestyramine Light] 4 GM Powd.Pack 4 g PO DAILY omega-3 fatty acids-fish oil 1 EACH capsule 2 capsule PO BID cholecalciferol (vitamin D3) 2,000 UNIT capsule 2,000 unit PO DAILY fluconazole 150 MG tablet 150 mg PO QWEEK Qty: 2 0RF ketoconazole 15 GM cream 1 applic topical DAILY Qty: 1 0RF levofloxacin 500 MG tablet 500 mg PO DAILY Primary Care Provider: Ingris Chu EXTRUDING MACHINE OPERATOR Referrals: Jamaal Marie DPM [STAFF PHYSICIAN] - 3-5 Days Ingris Chu EXTRUDING MACHINE OPERATOR, EXTRUDING MACHINE OPERATOR-C [Primary Care Provider] - Disposition Disposition: Home, Self Care
[2021-09-25 14:52] LABS: Erythrocyte Sedimentation Rate 17 mm/hr (0-20)
[2021-09-25 14:53] LABS: Absolute Lymphocyte Count 1.25 X10^3/uL (0.83-4.51); Absolute Neutrophil Count 4.1 X10^3/uL (2.0-7.7); Basophil# 0.05 X10^3/uL; Basophil% 0.8 % (0-1); Eosinophil# 0.31 X10^3/uL; Hematocrit 46.4 % (40-54); Hemoglobin 15.5 g/dL (13.0-16.5); Lymphocyte # 1.25 X10^3/ul (0.83-4.51); Lymphocyte % 20.1 % (19-41); Mean Corp Hgb Conc 33.4 g/dL (32-36); Mean Corpuscular Hgb 35.3 pg (27.0-32.0); Mean Corpuscular Volume 105.7 fL (80-94); Mean Platelet Vol. 8.8 fl (6.2-12.0); Monocyte# 0.51 X10^3/uL; Monocyte% 8.2 % (0-10); NRBC Flagged by Analyzer 0 % (0-5); Neutrophil # 4.08 X10^3/uL (2.7-7.7); Neutrophil % 65.7 % (47-70); Platelet Count 183 K/mm3 (150-450); RBC Distribution Width CV 12.8 % (11.6-14.6); RBC Distribution Width SD 50.3 fl (35.1-43.9); Red Blood Count 4.39 M/mm3 (4.6-6.2); White Blood Count 6.2 K/mm3 (4.4-11.0)
[2021-09-25 15:02] LABS: Anion Gap 0 (5-15); BUN 6 mg/dL (7-18); BUN/Creat Ratio 5.2 RATIO (10-20); Calcium,Total 9.6 mg/dL (8.5-10.1); Chloride 108 mmol/L (98-107); Creatinine, Serum 1.15 mg/dL (0.70-1.30); EST Glomerular Filtration Rate 69 mL/min (>60); Est Glom Filt Rate - Afr Amer 84 mL/min (>60); Estimated Creatinine Clearance 69.16 ml/min; Glucose 101 mg/dL (74-106); Sodium Level 139 mmol/L (136-145)
[2021-09-25 15:56] VITALS: BP 118/65; PULSE 76; TEMP 37.2
== END 2021-09-25 16:00 | disposition home or self-care (01) ==
PROVIDERS: Emergency Provider Emergency Medicine; PCP Nurse Practitioner Adult Health; Visit Provider Emergency Medicine
DX: Z48.00 Encounter for change or removal of nonsurgical wound dressing (principal); F31.9 Bipolar disorder, unspecified; F17.210 Nicotine dependence, cigarettes, uncomplicated; Z79.899 Other long term (current) drug therapy
CPT/HCPCS: 73630; 80048; 85025; 85652; 86140; 99285; A4216

== ENCOUNTER 2021-09-29 09:00 | Outpatient (RCR) | payer MEDICARE, MEDICAID, SELFPAY ==
[2021-09-02 00:15] VITALS: BP 118/85; PULSE 60; RESP 16; TEMP 36.3
[2021-09-08 09:39] VITALS: BP 130/75; PULSE 73; TEMP 36.4
--- NOTE | 2021-09-08 10:10 | PCM.WC.PN ---
History of Present Illness Date of Service: 09/08/21 Chief Complaint: Left and right foot maceration and dorsal foot ulcers History of Wound: This 60-year-old male with significant past medical history of bipolar disorder presents complaining of a left and right foot previous foot moisture and skin ulcers. He denies fever, chill, nausea, vomiting. He denies odor or drainage. He has discontinue dressing care and relates both feet are healed. He also completed a course of antibiotics. Subjective Subjective This 61-year-old man with significant past medical history of bipolar disorder presents to the wound care center today for follow-up of a right foot macerated webspaces and skin ulceration dorsal foot secondary to chronic venous insufficiency.? He denies any constitutional symptoms today. He has no other complaints today. Objective Data Objective Data Vital Signs: Vital Signs Temp Pulse Resp BP 97.5 F L 73 16 130/75 H 09/08/21 09:39 09/08/21 09:39 09/02/21 00:15 09/08/21 09:39 Physical Exam Const alert, oriented x3 and no apparent distress General Appearance: cooperative and comfortable HEENT normocephalic Eyes General Eye: normal appearance of both eyes Neck General: normal visual inspection Chest inspection of chest normal Resp normal respiratory effort Cardio regular rate and regular rhythm Extremity normal capillary refill, no joint enlargement and no calf tenderness Peripheral Pulses: Yes posterior tibial pulses present and dorsalis pedis pulses present Skin no rashes or lesions noted and no jaundice General Skin Exam: venous stasis and dermatitis; Negative for erythema Wound Narrative: Superficial ulceration noted to the dorsal lateral right foot with yellow fibrous tissue covering the wound bed.? There is evidence of epithelialization at the lateral aspect of the wound and distally near the toes.? No purulent drainage, no streaking, no odor, no maceration, or other localized signs of infection. Webspace one of the right foot demonstrates some maceration and superficial abrasion to the lateral hallux and medial second digit.? No signs of infection. Neuro oriented x3 and moves all extremities Debridement Note Debridement Note Wound debrided: Dorsal lateral foot and first webspace Laterality: Right Wound Grade/Stage: Monahan stage I Type of Debridement: Excisional debridement Anesthesia Used: 5% Lidocaine Gel Depth: Down to and including healthy tissue and in the subcutaneous layer Percentage of wound debrided: 100 Instrument Used: - (Misonix) Tissue Removed: Fibrous, devitalized subcutaneous, biofilm, slough Severity: Fat Layer Exposed Amount of bleeding with debridement: Mild Bleeding Controlled with: Compression and gauze Patient tolerated procedure: Patient tolerated procedure well Post-Debridement Measurements and Additional Note: Post-Debridement Measurements/Treatment - Nurse 1 - General Ulcer Assessment Start: 09/08/21 09:38 Freq: Status: Active Protocol: DORA Activity Type Activity Date Activity User E-sign Co-sign Detail Recorded Client Recorded Date Recorded By Document 09/08/21 09:39 RUBEN [id number] 09/08/21 09:45 RUBEN 09/08/21 09:39 WC - Today's Visit Information Type of service Follow-up Visit (Physician/BILLET STRAIGHTENER ) Arrival Mode Walker Patient Identification Verified (Name & Yes ) Vital Signs Temperature (97.8 F-99.1 F) 97.5 F L Temperature Source Temporal Pulse Rate (60-100) 73 Pulse Location Monitor Blood Pressure (90/60-120/80) 130/75 H Blood Pressure Mean (mm Hg) 93 Source Monitor Position Semi-Fowlers Blood Pressure Location Right Arm History Since Last Visit- (Skip if this is Patient's initial visit) Have you changed medications since your No last visit? Any new allergies or adverse reactions No Had a fall/change in ADL's that may No increase risk of falls Signs or symptoms of abuse and/or No neglect since last visit Have you been in the hospital since your No last visit? Has dressing in place as prescribed Yes Has compression in place as prescribed Yes Has offloadiing in place as prescribed N/A Experienced any changes in pain level or No management Left Footwear Regular Shoe Right Footwear Regular Shoe Pain Scale: 0-10 Numeric Is Patient Pain Free? Yes - Nurse 1 - General Ulcer Measurement Start: 09/08/21 09:38 Freq: Status: Active Protocol: Activity Type Activity Date Activity User E-sign Co-sign Detail Recorded Client Recorded Date Recorded By Document 09/08/21 09:39 RUBEN [id number] 09/08/21 09:45 RUBEN 09/08/21 09:39 Wound Center Nurse 1 #13 1st and 2nd web space right foot -Current Size (cm) - Length 2.3 -Current Size (cm) - Width 2 -Current Size (cm) - Depth 0.1 -Total Square Cm 4.6 -Exudate Amt Medium -Exudate Type Serosanguineous -Wound Margin Distinct, Outline Attached -Granulation Amt Large (67-100%) -Granulation Quality [place] -Necrosis Amt Small (1-33%) -Necrotic Tissue Type Adherent Slough -Texture (Brandi-wound Skin Appearance) Assessed, Scarring -Moisture (Brandi-wound Skin Appearance) No Abnormality, Assessed -Color (Brandi-wound Skin Appearance) No Abnormality, Assessed -Temperature (Brandi-wound Skin No Abnormality Appearance) (Pt Warm) -Tenderness on Palpation (Brandi-wound No Skin Appearance) -Ulcer Cleansing Soap and Water -Foul Odor after Cleansing No -Anesthetic Used 5% Lidocaine Gel #12 Right Dorsal Foot -Current Size (cm) - Length 3.3 -Current Size (cm) - Width 3 -Current Size (cm) - Depth 0.1 -Total Square Cm 9.9 -Exudate Amt None Present -Wound Margin Distinct, Outline Attached -Texture (Brandi-wound Skin Appearance) Assessed, Scarring -Moisture (Brandi-wound Skin Appearance) Assessed,Dry/ Scaly -Color (Brandi-wound Skin Appearance) No Abnormality, Assessed -Temperature (Brandi-wound Skin No Abnormality Appearance) (Pt Warm) -Tenderness on Palpation (Brandi-wound No Skin Appearance) -Ulcer Cleansing Soap and Water -Foul Odor after Cleansing No -Anesthetic Used 5% Lidocaine Gel Assessment/Plan Assessment/Plan (1) Ulcer of right foot with fat layer exposed: CODE(S): L97.512 - Non-pressure chronic ulcer of other part of right foot with fat layer exposed (2) Venous insufficiency (chronic) (peripheral): CODE(S): I87.2 - Venous insufficiency (chronic) (peripheral) (3) Bilateral edema of lower extremity: CODE(S): R60.0 - Localized edema (4) Maceration of skin: CODE(S): L98.8 - Other specified disorders of the skin and subcutaneous tissue (5) Nonhealing nonsurgical wound limited to breakdown of skin: CODE(S): T14.8XXA - Other injury of unspecified body region, initial encounter (6) Tobacco abuse: CODE(S): Z72.0 - Tobacco use (7) Bipolar disorder: CODE(S): F31.9 - Bipolar disorder, unspecified QUALIFIERS: Active/Remission status: remission status unspecified Qualified Code(s): F31.9 - Bipolar disorder, unspecified (8) Obesity (BMI 30.0-34.9): CODE(S): E66.9 - Obesity, unspecified PLAN: Plan Patient seen and evaluated. Debridement was performed today with Misonix as noted in the clinical panel to all of the ulcer sites.? He tolerated this well.? Dorsal lateral right foot ulceration secondary to chronic venous insufficiency as well as maceration of the first webspace of the right foot. Maceration remains to the first webspace, but improving at the lateral foot.? There is continued new skin formation overlying the dorsal lateral foot with a small portion of remaining wound overlying the fifth metatarsal base dorsally. Second webspace of the right foot remains healed.? His wounds are complicated by chronic tobacco abuse and chronic venous insufficency. He is instructed to continue elevating his feet at times of rest.? His wound site are continuing to make good progress in healing status and are continuing to demonstrate epithelialization at the dorsal distal aspect of the foot wound. SurePress compression wrap applied to right leg to be changed daily. Note will be sent to his assisted living facility outlining these dressing changes, and to not leave it open to air, and to ensure the legs remain wrapped at all times. The following work up and care recommendations were made: Dressing: Betadine, Aquacel Ag, Suprasorb, SurePress compression dressing, change daily.? Betadine, Aquacel rope AG between the toes with ABD padding, dressing between toes changed daily Wash: Soap and water Tissue growth optimization: None Offload: Elevate lower extremities at all times of rest Vascular: Arterial studies 04/19/[address] Lott demonstrate venous insufficiency, triphasic flow PATRICE 1.31 right and 1.41 left Edema: Elevate lower extremities at all times of rest, compression dressing Infection: No signs of infection. Pain: Well controlled today Host factors: He was advised on smoking cessation and how this will delay his wound healing.? He states that he will not stop smoking and refuses to do so. His wound sites are still macerated at the first webspace. He was told to leave his dressings in place and to not remove them. He was instructed to maintain adequate protein intake to aid in his wound healing. ? I answered all the patient's questions.? To return to the wound healing center in 1 week or call sooner if the patient has any questions or concerns. Note: [employer] speech recognition steward/stewardess third class software was used to create portions of this document. Sound-alike and misspelled words, as well as other steward/stewardess third class errors may be contained in the documentation.
[2021-09-15 08:44] VITALS: BP 123/72; PULSE 67; TEMP 36.4
--- NOTE | 2021-09-15 12:55 | PCM.WC.PN ---
History of Present Illness Date of Service: 09/15/21 Chief Complaint: Left and right foot maceration and dorsal foot ulcers History of Wound: This 60-year-old male with significant past medical history of bipolar disorder presents complaining of a left and right foot previous foot moisture and skin ulcers. He denies fever, chill, nausea, vomiting. He denies odor or drainage. He has discontinue dressing care and relates both feet are healed. He also completed a course of antibiotics. Subjective Subjective This 61-year-old man with significant past medical history of bipolar disorder presents to the wound care center today for follow-up of a right foot macerated webspaces and skin ulceration dorsal foot secondary to chronic venous insufficiency.? He feels his foot is more wet today compared to his last visit. He denies any constitutional symptoms today. He has no other complaints today. Objective Data Objective Data Vital Signs: Vital Signs Temp Pulse Resp BP 97.5 F L 67 16 123/72 H 09/15/21 08:44 09/15/21 08:44 09/02/21 00:15 09/15/21 08:44 Physical Exam Const alert, oriented x3 and no apparent distress General Appearance: cooperative and comfortable HEENT normocephalic Eyes General Eye: normal appearance of both eyes Neck General: normal visual inspection Chest inspection of chest normal Resp normal respiratory effort Cardio regular rate and regular rhythm Extremity normal capillary refill, no joint enlargement and no calf tenderness Skin no rashes or lesions noted and no jaundice General Skin Exam: venous stasis and dermatitis; Negative for erythema Wound Narrative: Superficial ulceration noted to the dorsal lateral right foot with yellow fibrous tissue covering the wound bed.? There is evidence of epithelialization at the lateral aspect of the wound and distally near the toes.? No purulent drainage, no streaking, no odor, no maceration, or other localized signs of infection. Webspace one of the right foot demonstrates some maceration and superficial abrasion to the lateral hallux and medial second digit.? No signs of infection. Neuro oriented x3 and moves all extremities Debridement Note Debridement Note Wound debrided: Right first and second web spaces and dorsolateral foot Laterality: Right Wound Grade/Stage: Monahan stage I Type of Debridement: Excisional debridement Anesthesia Used: 5% Lidocaine Gel Depth: Down to and including healthy tissue and in the subcutaneous layer Percentage of wound debrided: 100 Instrument Used: - (Misonix) Tissue Removed: Fibrous, devitalized subcutaneous, biofilm, slough Severity: Fat Layer Exposed Amount of bleeding with debridement: Mild Bleeding Controlled with: Compression and gauze Patient tolerated procedure: Patient tolerated procedure well Post-Debridement Measurements and Additional Note: Post-Debridement Measurements/Treatment WC - Nurse 1 - General Ulcer Assessment Start: 09/08/21 09:38 Freq: Status: Active Protocol: DORA Activity Type Activity Date Activity User E-sign Co-sign Detail Recorded Client Recorded Date Recorded By Document 09/08/21 09:39 KR [id number] 09/08/21 09:45 KR Document 09/15/21 08:44 KR [id number] 09/15/21 08:47 KR 09/08/21 09/15/21 09:39 08:44 WC - Today's Visit Information Type of service Follow-up Visit Follow-up Visit (Physician/BATT MACHINE OPERATOR (Physician/BATT MACHINE OPERATOR ) ) Arrival Mode Walker Ambulatory, Walker Patient Identification Verified (Name & Yes ) Vital Signs Temperature (97.8 F-99.1 F) 97.5 F L 97.5 F L Temperature Source Temporal Temporal Pulse Rate (60-100) 73 67 Pulse Location Monitor Monitor Blood Pressure (90/60-120/80) 130/75 H 123/72 H Blood Pressure Mean (mm Hg) 93 89 Source Monitor Monitor Position Semi-Fowlers Sitting Blood Pressure Location Right Arm Left Arm History Since Last Visit- (Skip if this is Patient's initial visit) Have you changed medications since your No No last visit? Any new allergies or adverse reactions No No Had a fall/change in ADL's that may No No increase risk of falls Signs or symptoms of abuse and/or No No neglect since last visit Have you been in the hospital since your No No last visit? Has dressing in place as prescribed Yes Yes Has compression in place as prescribed Yes N/A Has offloadiing in place as prescribed N/A N/A Experienced any changes in pain level or No No management Left Footwear Regular Shoe Regular Shoe Right Footwear Regular Shoe Regular Shoe Pain Scale: 0-10 Numeric Is Patient Pain Free? Yes Yes RA Gonzalez Nurse 1 - General Ulcer Measurement Start: 09/08/21 09:38 Freq: Status: Active Protocol: Activity Type Activity Date Activity User E-sign Co-sign Detail Recorded Client Recorded Date Recorded By Document 09/08/21 09:39 KR [id number] 09/08/21 09:45 KR Document 09/15/21 08:44 KR [id number] 09/15/21 08:47 KR 09/08/21 09/15/21 09:39 08:44 Wound Center Nurse 1 #13 1st and 2nd web space right foot -Current Size (cm) - Length 2.3 5.5 -Current Size (cm) - Width 2 5 -Current Size (cm) - Depth 0.1 0.1 -Total Square Cm 4.6 27.5 -Exudate Amt Medium Large -Exudate Type Serosanguineous Serosanguineous -Wound Margin Distinct, Distinct, Outline Outline Attached Attached -Granulation Amt Large (67-100%) Medium (34-66%) -Granulation Quality [place] -Necrosis Amt Small (1-33%) Medium (34-66%) -Necrotic Tissue Type Adherent Slough Adherent Slough -Texture (Brandi-wound Skin Appearance) Assessed, Assessed, Scarring Scarring -Moisture (Brandi-wound Skin Appearance) No Abnormality, Assessed, Assessed Maceration -Color (Brandi-wound Skin Appearance) No Abnormality, No Abnormality, Assessed Assessed -Temperature (Brandi-wound Skin No Abnormality No Abnormality Appearance) (Pt Warm) (Pt Warm) -Tenderness on Palpation (Brandi-wound No No Skin Appearance) -Ulcer Cleansing Soap and Water Rinsed/ Irrigated with Saline -Foul Odor after Cleansing No No -Anesthetic Used 5% Lidocaine 5% Lidocaine Gel Gel #12 Right Dorsal Foot -Current Size (cm) - Length 3.3 3 -Current Size (cm) - Width 3 2 -Current Size (cm) - Depth 0.1 0.1 -Total Square Cm 9.9 6 -Exudate Amt None Present None Present -Wound Margin Distinct, Distinct, Outline Outline Attached Attached -Granulation Amt Medium (34-66%) -Granulation Quality [place] -Necrosis Amt None Present (0 %) -Texture (Brandi-wound Skin Appearance) Assessed, Assessed, Scarring Scarring -Moisture (Brandi-wound Skin Appearance) Assessed,Dry/ Assessed,Dry/ Scaly Scaly -Color (Brandi-wound Skin Appearance) No Abnormality, No Abnormality, Assessed Assessed -Temperature (Brandi-wound Skin No Abnormality No Abnormality Appearance) (Pt Warm) (Pt Warm) -Tenderness on Palpation (Brandi-wound No No Skin Appearance) -Ulcer Cleansing Soap and Water Rinsed/ Irrigated with Saline -Foul Odor after Cleansing No No -Anesthetic Used 5% Lidocaine 5% Lidocaine Gel Gel WC - Nurse 2 - General Ulcer CM Notes Start: 09/08/21 09:38 Freq: Status: Active Protocol: Activity Type Activity Date Activity User E-sign Co-sign Detail Recorded Client Recorded Date Recorded By Document 09/08/21 10:12 PL [id number] 09/08/21 10:14 PL Document 09/15/21 12:30 PL [id number] 09/15/21 12:31 PL 09/08/21 09/15/21 10:12 12:30 Wound Center Nurse 2 #13 1st and 2nd web space right foot -Time 09:52 09:49 -Correct Patient Yes Yes -Correct Side, Site, Position Yes Yes -Correct Procedure Yes Yes -Procedure Performed Yes Yes -Type of Procedure Debridement Debridement -Clinical Debridement Subcutaneous Subcutaneous -Tissue Removed Subcutaneous Subcutaneous -Post Debridement (cm) - Length 2.3 5.5 -Post Debridement (cm) - Width 2.0 5.0 -Post Debridement (cm) - Depth 0.1 0.1 -Total Square (Post) (cm) 4.60 27.50 -Area of Debridement (cm) - Length 2.3 5.5 -Area of Debridement (cm) - Width 2.0 5.0 -Total Square (Area) (cm) 4.60 27.50 -Tunneling No No -Undermining/Tunneling No No -Circular Undermining No No -Wound/Ulcer Outcome Not Healed Not Healed -Ulcer Cleansing Rinsed/ Rinsed/ Irrigated with Irrigated with Saline Saline -Foul Odor after Cleansing No No -Bioengineered Tissue No No -Bleeding Controlled with Pressure Pressure -Treatment Response Procedure Procedure Tolerated Well Tolerated Well -Debridement - Subq, 1st 20sq cm No Yes -Debridement, SubQ, ea addt'l 20sq cm 1 or part thereof #12 Right Dorsal Foot -Time 09:52 09:49 -Correct Patient Yes Yes -Correct Side, Site, Position Yes Yes -Correct Procedure Yes Yes -Procedure Performed Yes Yes -Type of Procedure Debridement Debridement -Clinical Debridement Subcutaneous Subcutaneous -Tissue Removed Subcutaneous Subcutaneous -Post Debridement (cm) - Length 3.3 3.0 -Post Debridement (cm) - Width 3.0 2.0 -Post Debridement (cm) - Depth 0.1 0.1 -Total Square (Post) (cm) 9.90 6.00 -Area of Debridement (cm) - Length 3.3 3.0 -Area of Debridement (cm) - Width 3.0 2.0 -Total Square (Area) (cm) 9.90 6.00 -Tunneling No No -Undermining/Tunneling No No -Circular Undermining No No -Wound/Ulcer Outcome Not Healed Not Healed -Ulcer Cleansing Rinsed/ Rinsed/ Irrigated with Irrigated with Saline Saline -Foul Odor after Cleansing No No -Bioengineered Tissue No No -Bleeding Controlled with Pressure Pressure -Treatment Response Procedure Procedure Tolerated Well Tolerated Well -Debridement - Subq, 1st 20sq cm Yes No Pain Scale: 0-10 Numeric Is Patient Pain Free? Yes Yes - Nurse 3 - General Ulcer D/C NN Start: 09/08/21 09:38 Freq: Status: Active Protocol: Activity Type Activity Date Activity User E-sign Co-sign Detail Recorded Client Recorded Date Recorded By Document 09/15/21 11:48 GHADA [id number] 09/15/21 11:50 GHADA 09/15/21 11:48 Wound Care Nurse 3 #13 1st and 2nd web space right foot -Ulcer Cleansing Rinsed/ Irrigated with Saline -Foul Odor after Cleansing No -Negative Pressure Wound Therapy N/A -Primary Dressing Applied Aquacel AG 4x4, C Hydrogel ($) -Primary Dressing Covered/Secured with Dry Gauze & Roll Gauze, Secured with Tape -Aquacel AG 4x4 1 #12 Right Dorsal Foot -Ulcer Cleansing Rinsed/ Irrigated with Saline -Foul Odor after Cleansing No -Negative Pressure Wound Therapy N/A -Primary Dressing Applied Aquacel AG 4x4 -Primary Dressing Covered/Secured with Dry Gauze & Roll Gauze, Secured with Tape -Aquacel AG 4x4 0 Pain Scale: 0-10 Numeric Is Patient Pain Free? Yes WC - Visit Discharge Discharge Condition Stable Ambulatory Status Ambulatory, Walker Transportation Private Auto Medication Reconcilliation completed & Yes provided to patient/care provider Clinical Summary of Care Provided Yes Assessment/Plan Assessment/Plan (1) Ulcer of right foot with fat layer exposed: CODE(S): L97.512 - Non-pressure chronic ulcer of other part of right foot with fat layer exposed (2) Venous insufficiency (chronic) (peripheral): CODE(S): I87.2 - Venous insufficiency (chronic) (peripheral) (3) Bilateral edema of lower extremity: CODE(S): R60.0 - Localized edema (4) Maceration of skin: CODE(S): L98.8 - Other specified disorders of the skin and subcutaneous tissue (5) Nonhealing nonsurgical wound limited to breakdown of skin: CODE(S): T14.8XXA - Other injury of unspecified body region, initial encounter (6) Tobacco abuse: CODE(S): Z72.0 - Tobacco use (7) Bipolar disorder: CODE(S): F31.9 - Bipolar disorder, unspecified QUALIFIERS: Active/Remission status: remission status unspecified Qualified Code(s): F31.9 - Bipolar disorder, unspecified (8) Obesity (BMI 30.0-34.9): CODE(S): E66.9 - Obesity, unspecified PLAN: Plan Patient seen and evaluated. Debridement was performed today with Misonix as noted in the clinical panel to all of the ulcer sites.? He tolerated this well.? Dorsal lateral right foot ulceration secondary to chronic venous insufficiency as well as maceration of the first webspace of the right foot. Maceration remains to the first webspace and has extended to the second webspace, but improving at the lateral foot.? There is continued new skin formation overlying the dorsal lateral foot with a small portion of remaining wound overlying the fifth metatarsal base dorsally. His wounds are complicated by chronic tobacco abuse and chronic venous insufficency. I am skeptical of his compliance as of recent with keeping his feet elevated and dressings in place due to consistent maceration and increased swelling in the right lower extremity. He is instructed to continue elevating his feet at times of rest. I discussed with him how this is essential in his healing. His wound site at the dorsal lateral foot is continuing to make good progress in healing status and are continuing to demonstrate epithelialization. A double Tubigrip and compression wrap applied to right leg to be changed daily. Note will be sent to his assisted living facility outlining these dressing changes, and to not leave it open to air, and to ensure the legs remain wrapped at all times. The following work up and care recommendations were made: Dressing: Betadine, Aquacel Ag, Suprasorb, SurePress compression dressing, change daily.? Betadine, Aquacel rope AG between the toes, dressing between toes changed daily Wash: Soap and water Tissue growth optimization: None Offload: Elevate lower extremities at all times of rest Vascular: Arterial studies 04/19/[address] Lott demonstrate venous insufficiency, triphasic flow PATRICE 1.31 right and 1.41 left Edema: Elevate lower extremities at all times of rest, compression dressing Infection: No signs of infection. Pain: Well controlled today Host factors: He was advised on smoking cessation and how this will delay his wound healing.? He states that he will not stop smoking and refuses to do so. His wound sites are still macerated at the first webspace. He was told to leave his dressings in place and to not remove them. He was instructed to maintain adequate protein intake to aid in his wound healing. ? I answered all the patient's questions.? To return to the wound healing center in 1 week or call sooner if the patient has any questions or concerns. Note: [employer] speech recognition drop wire aligner software was used to create portions of this document. Sound-alike and misspelled words, as well as other drop wire aligner errors may be contained in the documentation.
[2021-09-22 09:03] VITALS: BP 147/78; PULSE 84; TEMP 36.3
--- NOTE | 2021-09-22 12:42 | PN.PCM_ITS ---
History of Present Illness Date of Service: 09/22/21 Chief Complaint: Left and right foot maceration and dorsal foot ulcers History of Wound: This 60-year-old male with significant past medical history of bipolar disorder presents complaining of a left and right foot previous foot moisture and skin ulcers. He denies fever, chill, nausea, vomiting. He denies odor or drainage. He has discontinue dressing care and relates both feet are healed. He also completed a course of antibiotics. Subjective Subjective This 61-year-old man with significant past medical history of bipolar disorder presents to the wound care center today for follow-up of a right foot macerated webspaces and skin ulceration dorsal foot secondary to chronic venous insufficiency.? He feels his foot continues to remain wet without improvement since last visit. He states his dressings are only being changed once a day between the toes and that the dressings are wet within a few hours. He denies any constitutional symptoms today. He has no other complaints today. Objective Data Objective Data Vital Signs: Vital Signs Temp Pulse Resp BP 97.4 F L 84 16 147/78 H 09/22/21 09:03 09/22/21 09:03 09/02/21 00:15 09/22/21 09:03 Physical Exam Const alert, oriented x3 and no apparent distress General Appearance: cooperative and comfortable HEENT normocephalic Eyes General Eye: normal appearance of both eyes Neck General: normal visual inspection Chest inspection of chest normal Resp normal respiratory effort Cardio regular rate and regular rhythm Extremity normal capillary refill, no joint enlargement and no calf tenderness Skin no rashes or lesions noted and no jaundice General Skin Exam: venous stasis and dermatitis; Negative for erythema Wound Narrative: Superficial ulceration noted to the dorsal lateral right foot with yellow fibrous tissue covering the wound bed.? There is evidence of epithelialization at the lateral aspect of the wound and distally near the toes.? No purulent drainage, no streaking, no odor, no maceration, or other localized signs of infection. Webspace one of the right foot demonstrates some maceration and superficial abrasion to the lateral hallux and medial second digit.? No signs of infection. Neuro oriented x3 and moves all extremities Debridement Note Debridement Note Wound debrided: Right lateral foot and first webspace Laterality: Right Wound Grade/Stage: Monahan stage I Type of Debridement: Excisional debridement Anesthesia Used: 5% Lidocaine Gel Depth: Down to and including healthy tissue and in the subcutaneous layer Percentage of wound debrided: 100 Instrument Used: - (Misonix) Tissue Removed: Fibrous, devitalized subcutaneous, biofilm, slough Severity: Fat Layer Exposed Amount of bleeding with debridement: Mild Bleeding Controlled with: Compression and gauze Patient tolerated procedure: Patient tolerated procedure well Post-Debridement Measurements and Additional Note: Post-Debridement Measurements/Treatment - Nurse 1 - General Ulcer Assessment Start: 09/08/21 09:38 Freq: Status: Active Protocol: DORA Activity Type Activity Date Activity User E-sign Co-sign Detail Recorded Client Recorded Date Recorded By Document 09/08/21 09:39 KR [id number] 09/08/21 09:45 KR Document 09/15/21 08:44 KR [id number] 09/15/21 08:47 KR Document 09/22/21 09:03 KR [id number] 09/22/21 09:14 KR 09/08/21 09/15/21 09/22/21 09:39 08:44 09:03 - Today's Visit Information Type of service Follow-up Visit Follow-up Visit Follow-up Visit (Physician/KOSHER DIETARY SERVICE MANAGER (Physician/KOSHER DIETARY SERVICE MANAGER (Physician/KOSHER DIETARY SERVICE MANAGER ) ) ) Arrival Mode Walker Ambulatory, Walker Walker Patient Identification Verified (Name & Yes Yes ) Vital Signs Temperature (97.8 F-99.1 F) 97.5 F L 97.5 F L 97.4 F L Temperature Source Temporal Temporal Temporal Pulse Rate (60-100) 73 67 84 Pulse Location Monitor Monitor Monitor Blood Pressure (90/60-120/80) 130/75 H 123/72 H 147/78 H Blood Pressure Mean (mm Hg) 93 89 101 Source Monitor Monitor Monitor Position Semi-Fowlers Sitting Sitting Blood Pressure Location Right Arm Left Arm Right Arm History Since Last Visit- (Skip if this is Patient's initial visit) Have you changed medications since your No No No last visit? Any new allergies or adverse reactions No No No Had a fall/change in ADL's that may No No No increase risk of falls Signs or symptoms of abuse and/or No No No neglect since last visit Have you been in the hospital since your No No No last visit? Has dressing in place as prescribed Yes Yes Yes Has compression in place as prescribed Yes N/A Yes Has offloadiing in place as prescribed N/A N/A N/A Experienced any changes in pain level or No No No management Left Footwear Regular Shoe Regular Shoe Regular Shoe Right Footwear Regular Shoe Regular Shoe Regular Shoe Pain Scale: 0-10 Numeric Is Patient Pain Free? Yes Yes Yes WC - Nurse 1 - General Ulcer Measurement Start: 09/08/21 09:38 Freq: Status: Active Protocol: Activity Type Activity Date Activity User E-sign Co-sign Detail Recorded Client Recorded Date Recorded By Document 09/08/21 09:39 KR [id number] 09/08/21 09:45 KR Document 09/15/21 08:44 KR [id number] 09/15/21 08:47 KR Document 09/22/21 09:03 KR [id number] 09/22/21 09:14 KR 09/08/21 09/15/21 09/22/21 09:39 08:44 09:03 Wound Center Nurse 1 #13 1st and 2nd web space right foot -Current Size (cm) - Length 2.3 5.5 2.3 -Current Size (cm) - Width 2 5 3 -Current Size (cm) - Depth 0.1 0.1 0.2 -Total Square Cm 4.6 27.5 6.9 -Exudate Amt Medium Large Large -Exudate Type Serosanguineous Serosanguineous Yellow/Green -Wound Margin Distinct, Distinct, Distinct, Outline Outline Outline Attached Attached Attached -Granulation Amt Large (67-100%) Medium (34-66%) Large (67-100%) -Granulation Quality Bliss Bliss Bliss -Necrosis Amt Small (1-33%) Medium (34-66%) Large (67-100%) -Necrotic Tissue Type Adherent Slough Adherent Slough Adherent Slough -Texture (Brandi-wound Skin Appearance) Assessed, Assessed, Assessed, Scarring Scarring Scarring -Moisture (Brandi-wound Skin Appearance) No Abnormality, Assessed, Assessed, Assessed Maceration Maceration -Color (Brandi-wound Skin Appearance) No Abnormality, No Abnormality, No Abnormality, Assessed Assessed Assessed -Temperature (Brandi-wound Skin No Abnormality No Abnormality No Abnormality Appearance) (Pt Warm) (Pt Warm) (Pt Warm) -Tenderness on Palpation (Brandi-wound No No No Skin Appearance) -Ulcer Cleansing Soap and Water Rinsed/ Rinsed/ Irrigated with Irrigated with Saline Saline -Foul Odor after Cleansing No No No -Anesthetic Used 5% Lidocaine 5% Lidocaine 5% Lidocaine Gel Gel Gel #12 Right Dorsal Foot -Current Size (cm) - Length 3.3 3 5 -Current Size (cm) - Width 3 2 2 -Current Size (cm) - Depth 0.1 0.1 0.1 -Total Square Cm 9.9 6 10 -Exudate Amt None Present None Present Medium -Exudate Type Serosanguineous -Wound Margin Distinct, Distinct, Distinct, Outline Outline Outline Attached Attached Attached -Granulation Amt Medium (34-66%) None Present (0 %) -Granulation Quality Bliss Bliss -Necrosis Amt None Present (0 Large (67-100%) %) -Necrotic Tissue Type Adherent Slough -Texture (Brandi-wound Skin Appearance) Assessed, Assessed, Assessed, Scarring Scarring Scarring -Moisture (Brandi-wound Skin Appearance) Assessed,Dry/ Assessed,Dry/ No Abnormality, Scaly Scaly Assessed -Color (Brandi-wound Skin Appearance) No Abnormality, No Abnormality, No Abnormality, Assessed Assessed Assessed -Temperature (Brandi-wound Skin No Abnormality No Abnormality No Abnormality Appearance) (Pt Warm) (Pt Warm) (Pt Warm) -Tenderness on Palpation (Brandi-wound No No No Skin Appearance) -Ulcer Cleansing Soap and Water Rinsed/ Rinsed/ Irrigated with Irrigated with Saline Saline -Foul Odor after Cleansing No No No -Anesthetic Used 5% Lidocaine 5% Lidocaine 5% Lidocaine Gel Gel Gel WC - Nurse 2 - General Ulcer CM Notes Start: 09/08/21 09:38 Freq: Status: Active Protocol: Activity Type Activity Date Activity User E-sign Co-sign Detail Recorded Client Recorded Date Recorded By Document 09/08/21 10:12 PL [id number] 09/08/21 10:14 PL Document 09/15/21 12:30 PL [id number] 09/15/21 12:31 PL 09/08/21 09/15/21 10:12 12:30 Wound Center Nurse 2 #13 1st and 2nd web space right foot -Time 09:52 09:49 -Correct Patient Yes Yes -Correct Side, Site, Position Yes Yes -Correct Procedure Yes Yes -Procedure Performed Yes Yes -Type of Procedure Debridement Debridement -Clinical Debridement Subcutaneous Subcutaneous -Tissue Removed Subcutaneous Subcutaneous -Post Debridement (cm) - Length 2.3 5.5 -Post Debridement (cm) - Width 2.0 5.0 -Post Debridement (cm) - Depth 0.1 0.1 -Total Square (Post) (cm) 4.60 27.50 -Area of Debridement (cm) - Length 2.3 5.5 -Area of Debridement (cm) - Width 2.0 5.0 -Total Square (Area) (cm) 4.60 27.50 -Tunneling No No -Undermining/Tunneling No No -Circular Undermining No No -Wound/Ulcer Outcome Not Healed Not Healed -Ulcer Cleansing Rinsed/ Rinsed/ Irrigated with Irrigated with Saline Saline -Foul Odor after Cleansing No No -Bioengineered Tissue No No -Bleeding Controlled with Pressure Pressure -Treatment Response Procedure Procedure Tolerated Well Tolerated Well -Debridement - Subq, 1st 20sq cm No Yes -Debridement, SubQ, ea addt'l 20sq cm 1 or part thereof #12 Right Dorsal Foot -Time 09:52 09:49 -Correct Patient Yes Yes -Correct Side, Site, Position Yes Yes -Correct Procedure Yes Yes -Procedure Performed Yes Yes -Type of Procedure Debridement Debridement -Clinical Debridement Subcutaneous Subcutaneous -Tissue Removed Subcutaneous Subcutaneous -Post Debridement (cm) - Length 3.3 3.0 -Post Debridement (cm) - Width 3.0 2.0 -Post Debridement (cm) - Depth 0.1 0.1 -Total Square (Post) (cm) 9.90 6.00 -Area of Debridement (cm) - Length 3.3 3.0 -Area of Debridement (cm) - Width 3.0 2.0 -Total Square (Area) (cm) 9.90 6.00 -Tunneling No No -Undermining/Tunneling No No -Circular Undermining No No -Wound/Ulcer Outcome Not Healed Not Healed -Ulcer Cleansing Rinsed/ Rinsed/ Irrigated with Irrigated with Saline Saline -Foul Odor after Cleansing No No -Bioengineered Tissue No No -Bleeding Controlled with Pressure Pressure -Treatment Response Procedure Procedure Tolerated Well Tolerated Well -Debridement - Subq, 1st 20sq cm Yes No Pain Scale: 0-10 Numeric Is Patient Pain Free? Yes Yes WC - Nurse 3 - General Ulcer D/C NN Start: 09/08/21 09:38 Freq: Status: Active Protocol: Activity Type Activity Date Activity User E-sign Co-sign Detail Recorded Client Recorded Date Recorded By Document 09/15/21 11:48 AK [id number] 09/15/21 11:50 AK Document 09/22/21 11:33 KR [id number] 09/22/21 11:34 KR 09/15/21 09/22/21 11:48 11:33 Wound Care Nurse 3 #13 1st and 2nd web space right foot -Ulcer Cleansing Rinsed/ Rinsed/ Irrigated with Irrigated with Saline Saline -Foul Odor after Cleansing No -Negative Pressure Wound Therapy N/A -Primary Dressing Applied Aquacel AG 4x4, C Hydrogel ($) -Other Dressing betadine -Primary Dressing Covered/Secured with Dry Gauze & Dry Gauze,Dry Roll Gauze, Gauze & Roll Secured with Gauze,Secured Tape with Tape -Aquacel AG 4x4 1 #12 Right Dorsal Foot -Ulcer Cleansing Rinsed/ Rinsed/ Irrigated with Irrigated with Saline Saline -Foul Odor after Cleansing No -Negative Pressure Wound Therapy N/A -Primary Dressing Applied Aquacel AG 4x4 Optilok 6.5x10 -Primary Dressing Covered/Secured with Dry Gauze & Dry Gauze, Roll Gauze, Secured with Secured with Tape Tape -Aquacel AG 4x4 0 -Optilok 6.5x10 1 Pain Scale: 0-10 Numeric Is Patient Pain Free? Yes Yes WC - Visit Discharge Discharge Condition Stable Stable Ambulatory Status Ambulatory, Ambulatory, Walker Walker Transportation [facility] Medication Reconcilliation completed & Yes provided to patient/care provider Clinical Summary of Care Provided Yes Assessment/Plan Assessment/Plan (1) Ulcer of right foot with fat layer exposed: CODE(S): L97.512 - Non-pressure chronic ulcer of other part of right foot with fat layer exposed (2) Venous insufficiency (chronic) (peripheral): CODE(S): I87.2 - Venous insufficiency (chronic) (peripheral) (3) Bilateral edema of lower extremity: CODE(S): R60.0 - Localized edema (4) Maceration of skin: CODE(S): L98.8 - Other specified disorders of the skin and subcutaneous tissue (5) Nonhealing nonsurgical wound limited to breakdown of skin: CODE(S): T14.8XXA - Other injury of unspecified body region, initial encounter (6) Tobacco abuse: CODE(S): Z72.0 - Tobacco use (7) Bipolar disorder: CODE(S): F31.9 - Bipolar disorder, unspecified QUALIFIERS: Active/Remission status: remission status unspecified Qualified Code(s): F31.9 - Bipolar disorder, unspecified (8) Obesity (BMI 30.0-34.9): CODE(S): E66.9 - Obesity, unspecified PLAN: Plan Patient seen and evaluated. Debridement was performed today with Misonix as noted in the clinical panel to all of the ulcer sites.? He tolerated this well.? Dorsal lateral right foot ulceration secondary to chronic venous insufficiency as well as maceration of the first webspace of the right foot. Maceration remains to the first webspace and has improved to the second webspace and at the lateral foot.? There is continued new skin formation overlying the dorsal lateral foot with a small portion of remaining wound overlying the fifth metatarsal base dorsally. His wounds are complicated by chronic tobacco abuse and chronic venous insufficency. I am skeptical of his compliance as of recent with keeping his feet elevated and dressings in place due to consistent maceration and increased swelling in the right lower extremity. He is instructed to continue elevating his feet at times of rest. I discussed with him how this is essential in his healing. His wound site at the dorsal lateral foot is continuing to make good progress in healing status and are continuing to demonstrate epithelialization. A double Tubigrip and compression wrap applied to right leg to be changed daily. Betadine paint and superabsorbent with gauze between digits, this is to be changed twice a day. Note will be sent again to his assisted living facility outlining these dressing changes, and to not leave it open to air, and to ensure the legs remain wrapped at all times. The following work up and care recommendations were made: Dressing: Betadine, Aquacel Ag, Suprasorb, SurePress compression dressing, change daily.? Betadine, super absorbent and gauze between the toes, dressing between toes changed twice daily Wash: Soap and water Tissue growth optimization: None Offload: Elevate lower extremities at all times of rest Vascular: Arterial studies 04/19/[address] Lott demonstrate venous insufficiency, triphasic flow PATRICE 1.31 right and 1.41 left Edema: Elevate lower extremities at all times of rest, compression dressing Infection: No signs of infection. Pain: Well controlled today Host factors: He was advised on smoking cessation and how this will delay his wound healing.? He states that he will not stop smoking and refuses to do so. His wound sites are still macerated at the first webspace. He was told to leave his dressings in place and to not remove them. He was instructed to maintain adequate protein intake to aid in his wound healing. ? I answered all the patient's questions.? To return to the wound healing center in 1 week or call sooner if the patient has any questions or concerns. Note: [employer] speech recognition boiler assistant operator software was used to create portions of this document. Sound-alike and misspelled words, as well as other boiler assistant operator errors may be contained in the documentation.
[2021-09-29 08:54] VITALS: BP 114/72; PULSE 82; RESP 20; TEMP 35.7
--- NOTE | 2021-09-29 10:38 | PCM.WC.PN ---
History of Present Illness Date of Service: 09/29/21 Chief Complaint: Left and right foot maceration and dorsal foot ulcers History of Wound: This 60-year-old male with significant past medical history of bipolar disorder presents complaining of a left and right foot previous foot moisture and skin ulcers. He denies fever, chill, nausea, vomiting. He denies odor or drainage. He has discontinue dressing care and relates both feet are healed. He also completed a course of antibiotics. Subjective Subjective This 61-year-old man with significant past medical history of bipolar disorder presents to the wound care center today for follow-up of a right foot macerated webspaces and skin ulceration dorsal foot secondary to chronic venous insufficiency.? He feels his foot continues to remain wet without improvement since last visit.?He states he went to the ED for maggots in his wound. He states his dressings are being changed twice a day between the toes but still get wet. He denies any constitutional symptoms today. He has no other complaints today. Objective Data Objective Data Vital Signs: Vital Signs Temp Pulse Resp BP 96.2 F L 82 20 H 114/72 09/29/21 08:54 09/29/21 08:54 09/29/21 08:54 09/29/21 08:54 Physical Exam Const alert, oriented x3 and no apparent distress General Appearance: cooperative and comfortable HEENT normocephalic Eyes General Eye: normal appearance of both eyes Neck General: normal visual inspection Chest inspection of chest normal Resp normal respiratory effort Cardio regular rate and regular rhythm Extremity normal capillary refill, no joint enlargement and no calf tenderness Skin no rashes or lesions noted and no jaundice General Skin Exam: venous stasis and dermatitis; Negative for erythema Wound Narrative: Superficial ulceration noted to the dorsal lateral right foot with yellow fibrous tissue covering the wound bed.? There is evidence of epithelialization at the lateral aspect of the wound and distally near the toes.? No purulent drainage, no streaking, no odor, no maceration, or other localized signs of infection. Webspace one of the right foot demonstrates some maceration and superficial abrasion to the lateral hallux and medial second digit.? No signs of infection. Neuro oriented x3 and moves all extremities Debridement Note Debridement Note Wound debrided: Right lateral foot and first and second webspace Laterality: Right Wound Grade/Stage: Monahan stage I Type of Debridement: Excisional debridement Anesthesia Used: 5% Lidocaine Gel Depth: Down to and including healthy tissue and in the subcutaneous layer Percentage of wound debrided: 100 Instrument Used: - (Misonix) Tissue Removed: Fibrous, devitalized subcutaneous, biofilm, slough Severity: Fat Layer Exposed Amount of bleeding with debridement: Mild Bleeding Controlled with: Compression and gauze Patient tolerated procedure: Patient tolerated procedure well Post-Debridement Measurements and Additional Note: Post-Debridement Measurements/Treatment - Nurse 1 - General Ulcer Assessment Start: 09/08/21 09:38 Freq: Status: Active Protocol: RA.JODI Activity Type Activity Date Activity User E-sign Co-sign Detail Recorded Client Recorded Date Recorded By Document 09/08/21 09:39 KR [id number] 09/08/21 09:45 KR Document 09/15/21 08:44 KR [id number] 09/15/21 08:47 KR Document 09/22/21 09:03 KR [id number] 09/22/21 09:14 KR Document 09/29/21 08:54 DL [id number] 09/29/21 09:02 DL 09/08/21 09/15/21 09/22/21 09:39 08:44 09:03 - Today's Visit Information Type of service Follow-up Visit Follow-up Visit Follow-up Visit (Physician/DATA CENTER TECHNICIAN (Physician/DATA CENTER TECHNICIAN (Physician/DATA CENTER TECHNICIAN ) ) ) Arrival Mode Walker Ambulatory, Walker Walker Transfer Assistance Patient Identification Verified (Name & Yes Yes ) Patient Requires Transmission-Based Precautions Vital Signs Temperature (97.8 F-99.1 F) 97.5 F L 97.5 F L 97.4 F L Temperature Source Temporal Temporal Temporal Pulse Rate (60-100) 73 67 84 Pulse Location Monitor Monitor Monitor Respiratory Rate (12-18) Respiratory rate source Blood Pressure (90/60-120/80) 130/75 H 123/72 H 147/78 H Blood Pressure Mean (mm Hg) 93 89 101 Source Monitor Monitor Monitor Position Semi-Fowlers Sitting Sitting Blood Pressure Location Right Arm Left Arm Right Arm History Since Last Visit- (Skip if this is Patient's initial visit) Have you changed medications since your No No No last visit? Any new allergies or adverse reactions No No No Had a fall/change in ADL's that may No No No increase risk of falls Signs or symptoms of abuse and/or No No No neglect since last visit Have you been in the hospital since your No No No last visit? Has dressing in place as prescribed Yes Yes Yes Has compression in place as prescribed Yes N/A Yes Has offloadiing in place as prescribed N/A N/A N/A Experienced any changes in pain level or No No No management Left Footwear Regular Shoe Regular Shoe Regular Shoe Right Footwear Regular Shoe Regular Shoe Regular Shoe Pain Scale: 0-10 Numeric Is Patient Pain Free? Yes Yes Yes 09/29/21 08:54 - Today's Visit Information Type of service Follow-up Visit (Physician/DATA CENTER TECHNICIAN ) Arrival Mode Ambulatory, Walker Transfer Assistance None Patient Identification Verified (Name & Yes ) Patient Requires Transmission-Based No Precautions Vital Signs Temperature (97.8 F-99.1 F) 96.2 F L Temperature Source Oral Pulse Rate (60-100) 82 Pulse Location Monitor Respiratory Rate (12-18) 20 H Respiratory rate source Observation Blood Pressure (90/60-120/80) 114/72 Blood Pressure Mean (mm Hg) 86 Source Monitor Position Blood Pressure Location History Since Last Visit- (Skip if this is Patient's initial visit) Have you changed medications since your No last visit? Any new allergies or adverse reactions No Had a fall/change in ADL's that may No increase risk of falls Signs or symptoms of abuse and/or No neglect since last visit Have you been in the hospital since your No last visit? Has dressing in place as prescribed Yes Has compression in place as prescribed Yes Has offloadiing in place as prescribed Yes Experienced any changes in pain level or No management Left Footwear Right Footwear Pain Scale: 0-10 Numeric Is Patient Pain Free? Yes - Nurse 1 - General Ulcer Measurement Start: 09/08/21 09:38 Freq: Status: Active Protocol: Activity Type Activity Date Activity User E-sign Co-sign Detail Recorded Client Recorded Date Recorded By Document 09/08/21 09:39 RUBEN [id number] 09/08/21 09:45 KR Document 09/15/21 08:44 KR [id number] 09/15/21 08:47 KR Document 09/22/21 09:03 KR [id number] 09/22/21 09:14 KR Document 09/29/21 08:54 DL [id number] 09/29/21 09:02 DL 09/08/21 09/15/21 09/22/21 09:39 08:44 09:03 Wound Center Nurse 1 #13 1st and 2nd web space right foot -Current Size (cm) - Length 2.3 5.5 2.3 -Current Size (cm) - Width 2 5 3 -Current Size (cm) - Depth 0.1 0.1 0.2 -Total Square Cm 4.6 27.5 6.9 -Photo Taken -Exudate Amt Medium Large Large -Exudate Type Serosanguineous Serosanguineous Yellow/Green -Wound Margin Distinct, Distinct, Distinct, Outline Outline Outline Attached Attached Attached -Granulation Amt Large (67-100%) Medium (34-66%) Large (67-100%) -Granulation Quality Tetherow Tetherow Tetherow -Necrosis Amt Small (1-33%) Medium (34-66%) Large (67-100%) -Necrotic Tissue Type Adherent Slough Adherent Slough Adherent Slough -Structure Exposed -Texture (Brandi-wound Skin Appearance) Assessed, Assessed, Assessed, Scarring Scarring Scarring -Moisture (Brandi-wound Skin Appearance) No Abnormality, Assessed, Assessed, Assessed Maceration Maceration -Color (Brandi-wound Skin Appearance) No Abnormality, No Abnormality, No Abnormality, Assessed Assessed Assessed -Temperature (Brandi-wound Skin No Abnormality No Abnormality No Abnormality Appearance) (Pt Warm) (Pt Warm) (Pt Warm) -Tenderness on Palpation (Brandi-wound No No No Skin Appearance) -Ulcer Cleansing Soap and Water Rinsed/ Rinsed/ Irrigated with Irrigated with Saline Saline -Foul Odor after Cleansing No No No -Anesthetic Used 5% Lidocaine 5% Lidocaine 5% Lidocaine Gel Gel Gel #12 Right Dorsal Foot -Current Size (cm) - Length 3.3 3 5 -Current Size (cm) - Width 3 2 2 -Current Size (cm) - Depth 0.1 0.1 0.1 -Total Square Cm 9.9 6 10 -Photo Taken -Exudate Amt None Present None Present Medium -Exudate Type Serosanguineous -Wound Margin Distinct, Distinct, Distinct, Outline Outline Outline Attached Attached Attached -Granulation Amt Medium (34-66%) None Present (0 %) -Granulation Quality Tetherow Tetherow -Necrosis Amt None Present (0 Large (67-100%) %) -Necrotic Tissue Type Adherent Slough -Structure Exposed -Texture (Brandi-wound Skin Appearance) Assessed, Assessed, Assessed, Scarring Scarring Scarring -Moisture (Brandi-wound Skin Appearance) Assessed,Dry/ Assessed,Dry/ No Abnormality, Scaly Scaly Assessed -Color (Brandi-wound Skin Appearance) No Abnormality, No Abnormality, No Abnormality, Assessed Assessed Assessed -Temperature (Brandi-wound Skin No Abnormality No Abnormality No Abnormality Appearance) (Pt Warm) (Pt Warm) (Pt Warm) -Tenderness on Palpation (Brandi-wound No No No Skin Appearance) -Ulcer Cleansing Soap and Water Rinsed/ Rinsed/ Irrigated with Irrigated with Saline Saline -Foul Odor after Cleansing No No No -Anesthetic Used 5% Lidocaine 5% Lidocaine 5% Lidocaine Gel Gel Gel Right Calf (cm) Right Ankle (cm) Left Calf (cm) Left Ankle (cm) 09/29/21 08:54 Wound Center Nurse 1 #13 1st and 2nd web space right foot -Current Size (cm) - Length 6.5 -Current Size (cm) - Width 5 -Current Size (cm) - Depth 0.1 -Total Square Cm 32.5 -Photo Taken Yes -Exudate Amt Medium -Exudate Type Serous -Wound Margin Indistinct, Non -Visible -Granulation Amt None Present (0 %) -Granulation Quality -Necrosis Amt Medium (34-66%) -Necrotic Tissue Type Adherent Slough -Structure Exposed N/A -Texture (Brandi-wound Skin Appearance) Scarring -Moisture (Brandi-wound Skin Appearance) Maceration -Color (Brandi-wound Skin Appearance) Hemosiderin Staining -Temperature (Brandi-wound Skin No Abnormality Appearance) (Pt Warm) -Tenderness on Palpation (Brandi-wound Skin Appearance) -Ulcer Cleansing Soap and Water -Foul Odor after Cleansing No -Anesthetic Used 4% Lidocaine Solution #12 Right Dorsal Foot -Current Size (cm) - Length 1.5 -Current Size (cm) - Width 6.6 -Current Size (cm) - Depth 0.1 -Total Square Cm 9.90 -Photo Taken Yes -Exudate Amt Medium -Exudate Type Serosanguineous -Wound Margin Distinct, Outline Attached -Granulation Amt None Present (0 %) -Granulation Quality -Necrosis Amt Large (67-100%) -Necrotic Tissue Type Adherent Slough -Structure Exposed N/A -Texture (Brandi-wound Skin Appearance) Scarring -Moisture (Brandi-wound Skin Appearance) Maceration -Color (Brandi-wound Skin Appearance) Hemosiderin Staining -Temperature (Brandi-wound Skin No Abnormality Appearance) (Pt Warm) -Tenderness on Palpation (Brandi-wound No Skin Appearance) -Ulcer Cleansing Soap and Water -Foul Odor after Cleansing No -Anesthetic Used 4% Lidocaine Solution Right Calf (cm) 40 Right Ankle (cm) 28.5 Left Calf (cm) 38.5 Left Ankle (cm) 29.5 WC - Nurse 2 - General Ulcer CM Notes Start: 09/08/21 09:38 Freq: Status: Active Protocol: Activity Type Activity Date Activity User E-sign Co-sign Detail Recorded Client Recorded Date Recorded By Document 09/08/21 10:12 PL [id number] 09/08/21 10:14 PL Document 09/15/21 12:30 PL [id number] 09/15/21 12:31 PL Document 09/22/21 12:48 PL [id number] 09/22/21 12:50 PL 09/08/21 09/15/21 09/22/21 10:12 12:30 12:48 Wound Center Nurse 2 #13 1st and 2nd web space right foot -Time 09:52 09:49 09:25 -Correct Patient Yes Yes Yes -Correct Side, Site, Position Yes Yes Yes -Correct Procedure Yes Yes Yes -Procedure Performed Yes Yes Yes -Type of Procedure Debridement Debridement Debridement -Clinical Debridement Subcutaneous Subcutaneous Subcutaneous -Tissue Removed Subcutaneous Subcutaneous Subcutaneous -Post Debridement (cm) - Length 2.3 5.5 2.3 -Post Debridement (cm) - Width 2.0 5.0 3.0 -Post Debridement (cm) - Depth 0.1 0.1 0.2 -Total Square (Post) (cm) 4.60 27.50 6.90 -Area of Debridement (cm) - Length 2.3 5.5 2.3 -Area of Debridement (cm) - Width 2.0 5.0 3.0 -Total Square (Area) (cm) 4.60 27.50 6.90 -Tunneling No No No -Undermining/Tunneling No No No -Circular Undermining No No No -Wound/Ulcer Outcome Not Healed Not Healed Not Healed -Ulcer Cleansing Rinsed/ Rinsed/ Rinsed/ Irrigated with Irrigated with Irrigated with Saline Saline Saline -Foul Odor after Cleansing No No No -Bioengineered Tissue No No No -Bleeding Controlled with Pressure Pressure Pressure -Treatment Response Procedure Procedure Procedure Tolerated Well Tolerated Well Tolerated Well -Debridement - Subq, 1st 20sq cm No Yes No -Debridement, SubQ, ea addt'l 20sq cm 1 or part thereof #12 Right Dorsal Foot -Time 09:52 09:49 09:25 -Correct Patient Yes Yes Yes -Correct Side, Site, Position Yes Yes Yes -Correct Procedure Yes Yes Yes -Procedure Performed Yes Yes Yes -Type of Procedure Debridement Debridement Debridement -Clinical Debridement Subcutaneous Subcutaneous Subcutaneous -Tissue Removed Subcutaneous Subcutaneous Subcutaneous -Post Debridement (cm) - Length 3.3 3.0 5.0 -Post Debridement (cm) - Width 3.0 2.0 2.0 -Post Debridement (cm) - Depth 0.1 0.1 0.1 -Total Square (Post) (cm) 9.90 6.00 10.00 -Area of Debridement (cm) - Length 3.3 3.0 5.0 -Area of Debridement (cm) - Width 3.0 2.0 2.0 -Total Square (Area) (cm) 9.90 6.00 10.00 -Tunneling No No No -Undermining/Tunneling No No No -Circular Undermining No No No -Wound/Ulcer Outcome Not Healed Not Healed Not Healed -Ulcer Cleansing Rinsed/ Rinsed/ Rinsed/ Irrigated with Irrigated with Irrigated with Saline Saline Saline -Foul Odor after Cleansing No No No -Bioengineered Tissue No No No -Bleeding Controlled with Pressure Pressure Pressure -Treatment Response Procedure Procedure Procedure Tolerated Well Tolerated Well Tolerated Well -Debridement - Subq, 1st 20sq cm Yes No Yes Pain Scale: 0-10 Numeric Is Patient Pain Free? Yes Yes Yes WC - Nurse 3 - General Ulcer D/C NN Start: 09/08/21 09:38 Freq: Status: Active Protocol: Activity Type Activity Date Activity User E-sign Co-sign Detail Recorded Client Recorded Date Recorded By Document 09/15/21 11:48 GHADA [id number] 09/15/21 11:50 AK Document 09/22/21 11:33 KR [id number] 09/22/21 11:34 KR Document 09/29/21 10:01 DL [id number] 09/29/21 10:03 DL 09/15/21 09/22/21 09/29/21 11:48 11:33 10:01 Wound Care Nurse 3 #13 1st and 2nd web space right foot -Ulcer Cleansing Rinsed/ Rinsed/ Soap and Water Irrigated with Irrigated with Saline Saline -Foul Odor after Cleansing No No -Negative Pressure Wound Therapy N/A -Primary Dressing Applied Aquacel AG 4x4, Optilok 6.5x10 C Hydrogel ($) -Other Dressing betadine Betadine today in clinic -Primary Dressing Covered/Secured with Dry Gauze & Dry Gauze,Dry Dry Gauze & Roll Gauze, Gauze & Roll Roll Gauze, Secured with Gauze,Secured Secured with Tape with Tape Tape -Other Covering superabsorber -Aquacel AG 4x4 1 -Optilok 6.5x10 1 #12 Right Dorsal Foot -Ulcer Cleansing Rinsed/ Rinsed/ Soap and Water Irrigated with Irrigated with Saline Saline -Foul Odor after Cleansing No No -Negative Pressure Wound Therapy N/A -Primary Dressing Applied Aquacel AG 4x4 Optilok 6.5x10 -Other Dressing superabsorber -Primary Dressing Covered/Secured with Dry Gauze & Dry Gauze, Dry Gauze & Roll Gauze, Secured with Roll Gauze Secured with Tape Tape -Other Covering superabsorber -Aquacel AG 4x4 0 -Optilok 6.5x10 1 Right -Tubular Bandage Single Layer -Size of Tubigrip Used Size D -Size D ($) 1 Left -Tubular Bandage Single Layer -Size of Tubigrip Used Size D -Size D ($) 1 Treatment Response Procedure Tolerated Well Pain Scale: 0-10 Numeric Is Patient Pain Free? Yes Yes Yes WC - Visit Discharge Discharge Condition Stable Stable Ambulatory Status Ambulatory, Ambulatory, Walker Walker Transportation Private Auto Accompanied by [facility] Medication Reconcilliation completed & Yes provided to patient/care provider Clinical Summary of Care Provided Yes Assessment/Plan Assessment/Plan (1) Ulcer of right foot with fat layer exposed: CODE(S): L97.512 - Non-pressure chronic ulcer of other part of right foot with fat layer exposed (2) Venous insufficiency (chronic) (peripheral): CODE(S): I87.2 - Venous insufficiency (chronic) (peripheral) (3) Bilateral edema of lower extremity: CODE(S): R60.0 - Localized edema (4) Maceration of skin: CODE(S): L98.8 - Other specified disorders of the skin and subcutaneous tissue (5) Nonhealing nonsurgical wound limited to breakdown of skin: CODE(S): T14.8XXA - Other injury of unspecified body region, initial encounter (6) Tobacco abuse: CODE(S): Z72.0 - Tobacco use (7) Bipolar disorder: CODE(S): F31.9 - Bipolar disorder, unspecified QUALIFIERS: Active/Remission status: remission status unspecified Qualified Code(s): F31.9 - Bipolar disorder, unspecified (8) Obesity (BMI 30.0-34.9): CODE(S): E66.9 - Obesity, unspecified PLAN: Plan Patient seen and evaluated. Debridement was performed today with Misonix as noted in the clinical panel to all of the ulcer sites.? He tolerated this well.? Dorsal lateral right foot ulceration secondary to chronic venous insufficiency as well as maceration of the first webspace of the right foot. Maceration remains to the first webspace and to the second webspace and at the lateral foot.? There is continued new skin formation overlying the dorsal lateral foot with a small portion of remaining wound overlying the fifth metatarsal base dorsally. His wounds are complicated by chronic tobacco abuse and chronic venous insufficency. I am skeptical of his compliance with keeping his wounds clean, feet elevated and dressings in place due to consistent maceration and increased swelling in the right lower extremity. I discussed the recent trip to the ED with maggots in his wound. I discussed that he needs to keep his dressings intact and clean and wash with soap and water between dressing changes. He voices understanding of our discussion today however I do not feel he will continue to follow these instructions. He is instructed to continue elevating his feet at times of rest. I discussed with him how this is essential in his healing. His wound site at the dorsal lateral foot is continuing to make good progress in healing status and are continuing to demonstrate epithelialization. A double Tubigrip and compression wrap applied to right leg to be changed daily. Betadine paint and superabsorbent with gauze between digits, this is to be changed twice a day. Note will be sent again to his assisted living facility outlining these dressing changes, and to not leave it open to air, and to ensure the legs remain wrapped at all times. The following work up and care recommendations were made: Dressing: Betadine, Aquacel Ag, Suprasorb, SurePress compression dressing, change daily.? Betadine, super absorbent and gauze between the toes, dressing between toes changed twice daily Wash: Soap and water Tissue growth optimization: None Offload: Elevate lower extremities at all times of rest Vascular: Arterial studies 04/19/[address] Lott demonstrate venous insufficiency, triphasic flow PATRICE 1.31 right and 1.41 left Edema: Elevate lower extremities at all times of rest, compression dressing Infection: No signs of infection. Pain: Well controlled today Host factors: He was advised on smoking cessation and how this will delay his wound healing.? He states that he will not stop smoking and refuses to do so. His wound sites are still macerated at the first webspace. He was told to leave his dressings in place and to not remove them. He was instructed to maintain adequate protein intake to aid in his wound healing. ? I answered all the patient's questions.? To return to the wound healing center in 1 week or call sooner if the patient has any questions or concerns. Note: [employer] speech recognition cloth handler software was used to create portions of this document. Sound-alike and misspelled words, as well as other cloth handler errors may be contained in the documentation.
== END 2021-10-02 23:59 | disposition home or self-care (01) ==
LOC: WC 09:00
PROVIDERS: PCP Nurse Practitioner Adult Health; Visit Provider Student in an Organized Health Care Education/Training Program
DX: L97.512 Non-pressure chronic ulcer of other part of right foot with fat layer exposed (principal); F31.9 Bipolar disorder, unspecified; I87.2 Venous insufficiency (chronic) (peripheral); R60.0 Localized edema; L98.8 Other specified disorders of the skin and subcutaneous tissue; E66.9 Obesity, unspecified; Z72.0 Tobacco use
CPT/HCPCS: 11042; 11045

== ENCOUNTER 2021-11-01 13:15 | Outpatient (RCR) | payer MEDICARE, MEDICAID, SELFPAY ==
[2021-10-03 00:13] VITALS: BP 114/72; PULSE 82; RESP 20; TEMP 35.7
[2021-10-18 09:03] VITALS: BP 126/72; PULSE 77; TEMP 35.7
--- NOTE | 2021-10-18 09:38 | PCM.WC.PN ---
History of Present Illness Date of Service: 10/18/21 Chief Complaint: Left and right foot maceration and dorsal foot ulcers History of Wound: This 60-year-old male with significant past medical history of bipolar disorder presents complaining of a left and right foot previous foot moisture and skin ulcers. He denies fever, chill, nausea, vomiting. He denies odor or drainage. Patient has recurrent wound to right foot. Patient has history of smoking. Patient refuses to quit. Patient refuses offloading with surgical shoe. Patient notes that he elevates his legs to manage edema. Objective Data Objective Data Vital Signs: Vital Signs Temp Pulse Resp BP 96.2 F L 77 20 H 126/72 H 10/18/21 09:03 10/18/21 09:03 10/03/21 00:13 10/18/21 09:03 Physical Exam Narrative Neurovascular status unchanged from previous visit. Full-thickness wounds noted to the interdigital spaces on the right foot at the first and second interspace. There is significant periwound maceration extending diffusely into the lateral aspect of the hallux entire second digit and medial aspect of the third digit. There is increased edema with green drainage noted to site. No evidence of deep probing or undermining. Predebridement there was significant maceration hyperkeratosis to the interdigital spaces along with fibrous tissue. Post debridement there is some improved granulation to the base of the wound with some residual maceration to periwound area. No other signs of infection at this time. Musculoskeletal no gross deformities noted bilaterally. Vascular strength full. No pain with calf squeeze palpation popliteal fossa. 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 Any new allergies or adverse reactions No Had a fall/change in ADL's that may No increase risk of falls Signs or symptoms of abuse and/or No neglect since last visit Have you been in the hospital since your No last visit? Has dressing in place as prescribed Yes Has compression in place as prescribed N/A Has offloadiing in place as prescribed N/A Experienced any changes in pain level or No management Left Footwear Regular Shoe Right Footwear Regular Shoe Pain Scale: 0-10 Numeric Is Patient Pain Free? Yes WC - Nurse 1 - General Ulcer Measurement Start: 10/18/21 09:03 Freq: Status: Active Protocol: Activity Type Activity Date Activity User E-sign Co-sign Detail Recorded Client Recorded Date Recorded By Document 10/18/21 09:03 GHADA [id number] 10/18/21 09:08 GHADA 10/18/21 09:03 Wound Center Nurse 1 #13 1st and 2nd web space right foot -Combined with other wound Yes -Combined with (Name of Wound-Exactly right dorsal as it is documented) foot -Current Size (cm) - Length 12.5 -Current Size (cm) - Width 5 -Total Square Cm 62.5 -Photo Taken No -Epithelialization None Present -Tunneling No -Undermining/Tunneling No -Circular Undermining No -Change in Wound Grade/Stage No -Exudate Amt Large -Exudate Type Yellow/Green -Wound Margin Distinct, Outline Attached -Granulation Amt None Present (0 %) -Granulation Quality N/A -Slough/Fibrin Yes -Necrosis Amt Large (67-100%) -Necrotic Tissue Type Adherent Slough -Structure Exposed N/A -Texture (Brandi-wound Skin Appearance) Assessed -Moisture (Brandi-wound Skin Appearance) Assessed, Maceration -Color (Brandi-wound Skin Appearance) No Abnormality, Assessed -Temperature (Brandi-wound Skin No Abnormality Appearance) (Pt Warm) -Tenderness on Palpation (Brandi-wound No Skin Appearance) -Ulcer Cleansing Soap and Water -Foul Odor after Cleansing No -Anesthetic Used 5% Lidocaine Gel Lower Limb Edema Present No WC - Nurse 2 - General Ulcer CM Notes Start: 10/18/21 09:03 Freq: Status: Active Protocol: Activity Type Activity Date Activity User E-sign Co-sign Detail Recorded Client Recorded Date Recorded By Document 10/18/21 09:30 MOSHE [id number] 10/18/21 09:32 MOSHE 10/18/21 09:30 Wound Center Nurse 2 #12 Right Dorsal Foot -Correct Patient No -Correct Side, Site, Position No -Correct Procedure No -Procedure Performed No -Wound/Ulcer Outcome Converted #13 1st and 2nd web space right foot -Time 09:30 -Correct Patient Yes -Correct Side, Site, Position Yes -Correct Procedure Yes -Procedure Performed Yes -Type of Procedure Debridement -Clinical Debridement Subcutaneous -Tissue Removed Subcutaneous -Post Debridement (cm) - Length 12.1 -Post Debridement (cm) - Width 5 -Post Debridement (cm) - Depth 0.1 -Total Square (Post) (cm) 60.5 -Area of Debridement (cm) - Length 12.1 -Area of Debridement (cm) - Width 5 -Total Square (Area) (cm) 60.5 -Tunneling No -Undermining/Tunneling No -Circular Undermining No -Wound/Ulcer Outcome Not Healed -Ulcer Cleansing Rinsed/ Irrigated with Saline -Foul Odor after Cleansing No -Bioengineered Tissue No -Bleeding Controlled with Pressure -Treatment Response Procedure Tolerated Well -Offloading Yes -Type of Offloading Surgical Shoe -Debridement - Subq, 1st 20sq cm Yes -Debridement, SubQ, ea addt'l 20sq cm 3 or part thereof Pain Scale: 0-10 Numeric Is Patient Pain Free? Yes Assessment/Plan Assessment/Plan (1) Peripheral vascular disease, unspecified: CODE(S): I73.9 - Peripheral vascular disease, unspecified (2) Ulcer of right foot with fat layer exposed: CODE(S): L97.512 - Non-pressure chronic ulcer of other part of right foot with fat layer exposed PLAN: Exam performed. Wound appears to be significantly macerated with large amount of drainage concern for Pseudomonas infection. Wound was excisionally debrided down to including level of subcutaneous tissue using misonix [place] debrider of all nonviable tissue. This was performed to the right first and second interspace. Pre and postdebridement measurements document nursing notes. Topical anesthesia used. She tolerated procedure well. Hemostasis obtained with light compression. Site was dried. Dressing with Betadine 4 x 4's DSD and Surefit compression. This dressing should be changed daily by skilled nursing. Discussed smoking cessation patient refuses to distress. Patient understands risk of chronic tobacco use such as pulmonary cardiovascular and wound healing complications. It was discussed with him. Patient refuses offloading via surgical shoe because it makes him unstable. Patient adamant that he limits ambulation and uses a wheelchair which can elevate his legs. Patient notes that he does not do this but has the capability of doing so. I have recommended compression elevation and exercise to manage his edema. He notes that he elevates his legs daily. He notes he sleeps in a recliner, but states that he is able to elevate his legs above his heart. I reiterated that compression elevation exercise program be integral in his wound healing. Will consider additional nutritional supplementation but at this time conferred concerned about a Pseudomonas infection superficially. I have cultured the wound and ordered doxycycline and ciprofloxacin to be taken twice a day. Patient will follow up in 1 week at which time we will consider increased compression elevation and exercise. We will consider nutritional supplementation. Advanced wound care products. Follow-up in 1 week. (3) Cellulitis of foot: CODE(S): L03.119 - Cellulitis of unspecified part of limb
[2021-10-25 09:11] VITALS: BP 147/89; PULSE 83; TEMP 36.8
--- NOTE | 2021-10-25 09:33 | PN.PCM_ITS ---
History of Present Illness Date of Service: 10/25/21 Chief Complaint: Left and right foot maceration and dorsal foot ulcers History of Wound: This 60-year-old male with significant past medical history of bipolar disorder presents complaining of a left and right foot previous foot moisture and skin ulcers. He denies fever, chill, nausea, vomiting. He denies odor or drainage. Patient has recurrent wound to right foot. Patient has history of smoking. Patient refuses to quit. Patient refuses offloading with surgical shoe. Patient notes that he elevates his legs to manage edema. Objective Data Objective Data Vital Signs: Vital Signs Temp Pulse Resp BP 98.2 F 83 20 H 147/89 H 10/25/21 09:11 10/25/21 09:11 10/03/21 00:13 10/25/21 09:11 Lab / Micro Data Micro: Microbiology 10/18/21 09:25 Wound - Right Foot Gram Stain - Final 10/18/21 09:25 Wound - Right Foot Wound Culture - Final Providencia stuartii Pseudomonas aeroginosa Staphylococcus cohnii urealyti Proteus mirabilis 10/18/21 09:25 Wound - Right Foot Anaerobic Culture - Final Anaerobic cocci Physical Exam Narrative Neurovascular status unchanged from previous visit. Full-thickness wounds noted to the interdigital spaces on the right foot at the first and second interspace. There is significant improvement to periwound maceration extending into the lateral aspect of the hallux entire second digit and medial aspect of the third digit. There is resolving edema with green drainage noted to site. No evidence of deep probing or undermining. Predebridement there was significant maceration hyperkeratosis to the interdigital spaces along with fibrous tissue. Post debridement there is some improved granulation to the base of the wound with some residual maceration to periwound area. No other signs of infection at this time. Musculoskeletal no gross deformities noted bilaterally. Vascular strength full. No pain with calf squeeze palpation popliteal fossa. 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 Any new allergies or adverse reactions No No Had a fall/change in ADL's that may No No increase risk of falls Signs or symptoms of abuse and/or No No neglect since last visit Have you been in the hospital since your No No last visit? Has dressing in place as prescribed Yes Yes Has compression in place as prescribed N/A No Has offloadiing in place as prescribed N/A N/A Experienced any changes in pain level or No No management Left Footwear Regular Shoe Regular Shoe Right Footwear Regular Shoe Regular Shoe Pain Scale: 0-10 Numeric Is Patient Pain Free? Yes Yes - Nurse 1 - General Ulcer Measurement Start: 10/18/21 09:03 Freq: Status: Active Protocol: Activity Type Activity Date Activity User E-sign Co-sign Detail Recorded Client Recorded Date Recorded By Document 10/18/21 09:03 DC [id number] 10/18/21 09:08 DC Document 10/25/21 09:11 DC [id number] 10/25/21 09:13 DC 10/18/21 10/25/21 09:03 09:11 Wound Center Nurse 1 #13 1st and 2nd web space right foot -Combined with other wound Yes -Combined with (Name of Wound-Exactly right dorsal as it is documented) foot -Current Size (cm) - Length 12.5 8 -Current Size (cm) - Width 5 5 -Current Size (cm) - Depth 1 -Total Square Cm 62.5 40 -Date of Last Picture (Recall this 10/25/21 field) -Photo Taken No Yes -Epithelialization None Present -Tunneling No No -Undermining/Tunneling No No -Circular Undermining No -Change in Wound Grade/Stage No No -Exudate Amt Large Large -Exudate Type Yellow/Green Serosanguineous -Wound Margin Distinct, Distinct, Outline Outline Attached Attached -Granulation Amt None Present (0 Large (67-100%) %) -Granulation Quality N/A N/A -Slough/Fibrin Yes No -Necrosis Amt Large (67-100%) Large (67-100%) -Necrotic Tissue Type Adherent Slough Adherent Slough -Structure Exposed N/A N/A -Texture (Brandi-wound Skin Appearance) Assessed No Abnormality, Assessed -Moisture (Brandi-wound Skin Appearance) Assessed, Assessed, Maceration Maceration -Color (Brandi-wound Skin Appearance) No Abnormality, No Abnormality, Assessed Assessed -Temperature (Brandi-wound Skin No Abnormality Appearance) (Pt Warm) -Tenderness on Palpation (Brandi-wound No Yes Skin Appearance) -Ulcer Cleansing Soap and Water Rinsed/ Irrigated with Saline -Foul Odor after Cleansing No No -Anesthetic Used 5% Lidocaine 5% Lidocaine Gel Gel Lower Limb Edema Present No WC - Nurse 2 - General Ulcer CM Notes Start: 10/18/21 09:03 Freq: Status: Active Protocol: Activity Type Activity Date Activity User E-sign Co-sign Detail Recorded Client Recorded Date Recorded By Document 10/18/21 09:30 [id number] 10/18/21 09:32 Document 10/25/21 09:30 [id number] 10/25/21 09:30 10/18/21 10/25/21 09:30 09:30 Wound Center Nurse 2 #12 Right Dorsal Foot -Correct Patient No -Correct Side, Site, Position No -Correct Procedure No -Procedure Performed No -Wound/Ulcer Outcome Converted #13 1st and 2nd web space right foot -Time 09:30 -Correct Patient Yes No -Correct Side, Site, Position Yes No -Correct Procedure Yes No -Procedure Performed Yes No -Type of Procedure Debridement -Clinical Debridement Subcutaneous -Tissue Removed Subcutaneous -Post Debridement (cm) - Length 12.1 -Post Debridement (cm) - Width 5 -Post Debridement (cm) - Depth 0.1 -Total Square (Post) (cm) 60.5 -Area of Debridement (cm) - Length 12.1 -Area of Debridement (cm) - Width 5 -Total Square (Area) (cm) 60.5 -Tunneling No -Undermining/Tunneling No -Circular Undermining No -Wound/Ulcer Outcome Not Healed Not Healed -Ulcer Cleansing Rinsed/ Irrigated with Saline -Foul Odor after Cleansing No -Bioengineered Tissue No -Bleeding Controlled with Pressure -Treatment Response Procedure Tolerated Well -Offloading Yes -Type of Offloading Surgical Shoe -Debridement - Subq, 1st 20sq cm Yes -Debridement, SubQ, ea addt'l 20sq cm 3 or part thereof Pain Scale: 0-10 Numeric Is Patient Pain Free? Yes Yes - Nurse 3 - General Ulcer D/C NN Start: 10/18/21 09:03 Freq: Status: Active Protocol: Activity Type Activity Date Activity User E-sign Co-sign Detail Recorded Client Recorded Date Recorded By Document 10/18/21 09:47 [facility] [id number] 10/18/21 09:48 [facility] 10/18/21 09:47 Wound Care Nurse 3 #13 1st and 2nd web space right foot -Ulcer Cleansing Soap and Water -Foul Odor after Cleansing No -Primary Dressing Applied Other -Other Dressing betadine -Primary Dressing Covered/Secured with Dry Gauze & Roll Gauze, Secured with Tape -Other Covering abd Right -Compression Wrap Surepress ($) Treatment Response Procedure Tolerated Well Pain Scale: 0-10 Numeric Is Patient Pain Free? Yes - Visit Discharge Discharge Condition Stable Ambulatory Status Ambulatory, Walker Transportation Private Auto Assessment/Plan Assessment/Plan (1) Peripheral vascular disease, unspecified: CODE(S): I73.9 - Peripheral vascular disease, unspecified (2) Ulcer of right foot with fat layer exposed: CODE(S): L97.512 - Non-pressure chronic ulcer of other part of right foot with fat layer exposed PLAN: Exam performed. Improved edema maceration and drainage today. No debridement performed per patient request. Patient will continue Dakin's dressing with DSD and Tubigrip for compression. I discussed in detail the patient should elevate his leg by laying flat in bed and applying a pillow underneath his leg for 20 minutes 3 times a day. Sitting in his recliner with elevation is not sufficient. Discussed smoking cessation patient refuses to distress. Patient understands risk of chronic tobacco use such as pulmonary cardiovascular and wound healing complications. It was discussed with him. Patient refuses offloading via surgical shoe because it makes him unstable. Patient adamant that he limits ambulation and uses a wheelchair which can elevate his legs. Patient notes that he does not do this but has the capability of doing so. I have recommended compression elevation and exercise to manage his edema. He notes that he elevates his legs daily. He notes he sleeps in a recliner, but states that he is able to elevate his legs above his heart. I reiterated that compression elevation exercise program be integral in his wound healing. Will consider additional nutritional supplementation but at this time conferred concerned about a Pseudomonas infection superficially. Patient will complete course of doxycycline and ciprofloxacin, culture sensitivity demonstrated polymicrobial infection. Patient will complete course of doxycycline and ciprofloxacin as this covers majority of organisms and patient is demonstrating significant clinical improvement.. Patient will follow up in 1 week at which time we will consider increased compression elevation and exercise. We will consider nutritional supplementation. Advanced wound care products. Follow-up in 1 week. (3) Cellulitis of foot: CODE(S): L03.119 - Cellulitis of unspecified part of limb
[2021-11-01 13:15] VITALS: BP 129/64; PULSE 69; RESP 18; TEMP 36.3
--- NOTE | 2021-11-01 15:38 | PCM.WC.PN ---
History of Present Illness Date of Service: 11/01/21 Chief Complaint: Left and right foot maceration and dorsal foot ulcers History of Wound: This 60-year-old male with significant past medical history of bipolar disorder presents complaining of a left and right foot previous foot moisture and skin ulcers. He denies fever, chill, nausea, vomiting. He denies odor or drainage. Patient has recurrent wound to right foot. Patient has history of smoking. Patient refuses to quit. Patient refuses offloading with surgical shoe. Patient notes that he elevates his legs to manage edema. Progress of Wound: This is a courtesy visit for Dr. Junior. Right dorsal foot, toes and webspace ulcer is improved. He has dried, scabbing covering the ulcer. He is wearing shoes that he has cut the top out so there is no pressure on his toes. Objective Data Objective Data Vital Signs: Vital Signs Temp Pulse Resp BP 97.3 F L 69 18 129/64 H 11/01/21 13:15 11/01/21 13:15 11/01/21 13:15 11/01/21 13:15 Lab / Micro Data Micro: Microbiology 10/18/21 09:25 Wound - Right Foot Gram Stain - Final 10/18/21 09:25 Wound - Right Foot Wound Culture - Final Providencia stuartii Pseudomonas aeroginosa Staphylococcus cohnii urealyti Proteus mirabilis 10/18/21 09:25 Wound - Right Foot Anaerobic Culture - Final Anaerobic cocci Charges/Coding Addendum Addendum: Selective debridement 98015 and 57878 Physical Exam Const alert and oriented x3 HEENT normocephalic Resp normal respiratory effort Cardio regular rate Extremity normal capillary refill Extremity Narrative: +1 edema of feet and ankles. Skin Wound Narrative: Right dorsal foot, toes and web spaces with full thickness ulcer that has dry scabbing present. Drainage has decreased. Neuro oriented x3 Psych Appearance: grossly normal Debridement Note Debridement Note Wound debrided: Dorsal foot, toes and web spaces Laterality: Right Type of Debridement: Selective debridement Anesthesia Used: 4% Lidocaine Solution Depth: Down to and including healthy tissue Percentage of wound debrided: 80 Instrument Used: - (scissors and pickup) Tissue Removed: Dried, non viable tissue Severity: Fat Layer Exposed Amount of bleeding with debridement: None Patient tolerated procedure: Patient tolerated procedure well Post-Debridement Measurements and Additional Note: Post-Debridement Measurements/Treatment WC - Nurse 1 - General Ulcer Assessment Start: 10/18/21 09:03 Freq: Status: Active Protocol: DORA Activity Type Activity Date Activity User E-sign Co-sign Detail Recorded Client Recorded Date Recorded By Document 10/18/21 09:03 AK [id number] 10/18/21 09:08 AK Document 10/25/21 09:11 AK [id number] 10/25/21 09:13 AK Document 11/01/21 13:15 DL [id number] 11/01/21 13:22 DL 10/18/21 10/25/21 11/01/21 09:03 09:11 13:15 - Today's Visit Information Type of service Follow-up Visit Follow-up Visit 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 Visit (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 (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 (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 ) ) ) Arrival Mode Ambulatory, Ambulatory, Ambulatory Wheelchair Walker Transfer Assistance None Patient Identification Verified (Name & Yes Yes Yes ) Patient Requires Transmission-Based No No No Precautions Safety Precautions NA NA Vital Signs Temperature (97.8 F-99.1 F) 96.2 F L 98.2 F 97.3 F L Temperature Source Temporal Temporal Temporal Pulse Rate (60-100) 77 83 69 Pulse Location Monitor Monitor Monitor Respiratory Rate (12-18) 18 Respiratory rate source Observation Blood Pressure (90/60-120/80) 126/72 H 147/89 H 129/64 H Blood Pressure Mean (mm Hg) 90 108 85 Source Monitor Monitor Monitor History Since Last Visit- (Skip if this is Patient's initial visit) Have you changed medications since your No No No last visit? Any new allergies or adverse reactions No No No Had a fall/change in ADL's that may No No No increase risk of falls Signs or symptoms of abuse and/or No No No neglect since last visit Have you been in the hospital since your No No No last visit? Has dressing in place as prescribed Yes Yes Yes Has compression in place as prescribed N/A No Yes Has offloadiing in place as prescribed N/A N/A Yes Experienced any changes in pain level or No No No management Left Footwear Regular Shoe Regular Shoe Right Footwear Regular Shoe Regular Shoe Surgical Shoe with pressure relief insole Pain Scale: 0-10 Numeric Is Patient Pain Free? Yes Yes Yes WC - Nurse 1 - General Ulcer Measurement Start: 10/18/21 09:03 Freq: Status: Active Protocol: Activity Type Activity Date Activity User E-sign Co-sign Detail Recorded Client Recorded Date Recorded By Document 10/18/21 09:03 AK [id number] 10/18/21 09:08 AK Document 10/25/21 09:11 AK [id number] 10/25/21 09:13 AK Document 11/01/21 13:15 DL [id number] 11/01/21 13:22 DL 10/18/21 10/25/21 11/01/21 09:03 09:11 13:15 Wound Center Nurse 1 #13 1st and 2nd web space right foot -Combined with other wound Yes -Combined with (Name of Wound-Exactly right dorsal as it is documented) foot -Current Size (cm) - Length 12.5 8 5.6 -Current Size (cm) - Width 5 5 3.6 -Current Size (cm) - Depth 1 0.1 -Total Square Cm 62.5 40 20.16 -Date of Last Picture (Recall this 10/25/21 field) -Photo Taken No Yes No -Epithelialization None Present -Tunneling No No -Undermining/Tunneling No No -Circular Undermining No -Change in Wound Grade/Stage No No -Exudate Amt Large Large None Present -Exudate Type Yellow/Green Serosanguineous -Wound Margin Distinct, Distinct, Thickened Outline Outline Attached Attached -Granulation Amt None Present (0 Large (67-100%) None Present (0 %) %) -Granulation Quality N/A N/A -Slough/Fibrin Yes No -Necrosis Amt Large (67-100%) Large (67-100%) Large (67-100%) -Necrotic Tissue Type Adherent Slough Adherent Slough Adherent Slough -Structure Exposed N/A N/A N/A -Texture (Brandi-wound Skin Appearance) Assessed No Abnormality, Scarring Assessed -Moisture (Brandi-wound Skin Appearance) Assessed, Assessed, No Abnormality Maceration Maceration -Color (Brandi-wound Skin Appearance) No Abnormality, No Abnormality, Hemosiderin Assessed Assessed Staining -Temperature (Brandi-wound Skin No Abnormality No Abnormality Appearance) (Pt Warm) (Pt Warm) -Tenderness on Palpation (Brandi-wound No Yes No Skin Appearance) -Ulcer Cleansing Soap and Water Rinsed/ Soap and Water Irrigated with Saline -Foul Odor after Cleansing No No No -Anesthetic Used 5% Lidocaine 5% Lidocaine 4% Lidocaine Gel Gel Solution Lower Limb Edema Present No Right Calf (cm) 37.5 Right Ankle (cm) 26.3 WC - Nurse 2 - General Ulcer CM Notes Start: 10/18/21 09:03 Freq: Status: Active Protocol: Activity Type Activity Date Activity User E-sign Co-sign Detail Recorded Client Recorded Date Recorded By Document 10/18/21 09:30 [id number] 10/18/21 09:32 Document 10/25/21 09:30 [id number] 10/25/21 09:30 Document 11/01/21 13:54 [id number] 11/01/21 13:58 10/18/21 10/25/21 11/01/21 09:30 09:30 13:54 Wound Center Nurse 2 #12 Right Dorsal Foot -Correct Patient No -Correct Side, Site, Position No -Correct Procedure No -Procedure Performed No -Wound/Ulcer Outcome Converted #13 1st and 2nd web space right foot -Time 09:30 13:57 -Correct Patient Yes No Yes -Correct Side, Site, Position Yes No Yes -Correct Procedure Yes No Yes -Procedure Performed Yes No Yes -Type of Procedure Debridement Debridement -Clinical Debridement Subcutaneous Epidermis / Dermis -Tissue Removed Subcutaneous Epidermis, Dermis -Post Debridement (cm) - Length 12.1 4.7 -Post Debridement (cm) - Width 5 4.5 -Post Debridement (cm) - Depth 0.1 0.1 -Total Square (Post) (cm) 60.5 21.15 -Area of Debridement (cm) - Length 12.1 4.7 -Area of Debridement (cm) - Width 5 4.5 -Total Square (Area) (cm) 60.5 21.15 -Tunneling No No -Undermining/Tunneling No No -Circular Undermining No No -Wound/Ulcer Outcome Not Healed Not Healed Not Healed -Ulcer Cleansing Rinsed/ Rinsed/ Irrigated with Irrigated with Saline Saline -Foul Odor after Cleansing No No -Bioengineered Tissue No No -Bleeding Controlled with Pressure Pressure -Treatment Response Procedure Procedure Tolerated Well Tolerated Well -Offloading Yes No -Type of Offloading Surgical Shoe -Debridement - Open, 1st 20sq cm Yes -Debridement, Open, ea addt'l 20sq cm 1 or part thereof -Debridement - Subq, 1st 20sq cm Yes -Debridement, SubQ, ea addt'l 20sq cm 3 or part thereof Pain Scale: 0-10 Numeric Is Patient Pain Free? Yes Yes Yes - Nurse 3 - General Ulcer D/C NN Start: 10/18/21 09:03 Freq: Status: Active Protocol: Activity Type Activity Date Activity User E-sign Co-sign Detail Recorded Client Recorded Date Recorded By Document 10/18/21 09:47 [facility] [id number] 10/18/21 09:48 BM Document 10/25/21 09:46 MW [id number] 10/25/21 09:48 MW Document 11/01/21 14:09 [facility] [id number] 11/01/21 14:10 [facility] 10/18/21 10/25/21 11/01/21 09:47 09:46 14:09 Wound Care Nurse 3 #13 1st and 2nd web space right foot -Ulcer Cleansing Soap and Water Rinsed/ Rinsed/ Irrigated with Irrigated with Saline Saline -Foul Odor after Cleansing No No No -Negative Pressure Wound Therapy N/A -Primary Dressing Applied Other -Other Dressing betadine betadine -Primary Dressing Covered/Secured with Dry Gauze & Dry Gauze, Dry Gauze & Roll Gauze, Secured with Roll Gauze, Secured with Tape Secured with Tape Tape -Other Covering abd ABD Right -Lotion applied to leg before Yes compression wrap -Compression Wrap Surepress ($) -Tubular Bandage Double Layer Double Layer -Size of Tubigrip Used Size D Size D -Size D ($) 2 1 Treatment Response Procedure Procedure Tolerated Well Tolerated Well Pain Scale: 0-10 Numeric Is Patient Pain Free? Yes Yes Yes Teaching: Wound Center Dressing Your Wound -Person Taught Patient -Teaching Method Discussion, Demonstration -Response to teaching Verbalize understanding WC - Visit Discharge Discharge Condition Stable Stable Stable Ambulatory Status Ambulatory, Ambulatory, Ambulatory Walker Walker Transportation Private Auto Private Auto Private Auto Accompanied by mom MOM Medication Reconcilliation completed & No provided to patient/care provider Clinical Summary of Care Provided Yes Other ASSISTED LIVING Assessment/Plan Assessment/Plan (1) Peripheral vascular disease, unspecified: CODE(S): I73.9 - Peripheral vascular disease, unspecified (2) Ulcer of right foot with fat layer exposed: CODE(S): L97.512 - Non-pressure chronic ulcer of other part of right foot with fat layer exposed PLAN: Courtesy visit for Dr. Junior. Patient evaluated today, a selective debridement was performed. Patient was refusing a subcutaneous debridement. There was dry, excess non vital tissue that was removed due to it would start to cause him pain from the over hang and pulling it may cause. Patient tolerated the selective debridement well. Improved edema maceration and drainage today. Patient will continue Dakin's dressing covered with gauze, kerlix and Tubigrip for compression. Discussed elevation of his leg and not sleeping in recliner. Encouraged patient to stop smoking as it may have deleterious effects on wound healing. Patient refuses offloading via surgical shoe because it makes him unstable. Instructed to complete his antibiotics that were prescribed for his positive wound cultures. Follow-up in 1 week. (3) Cellulitis of foot: CODE(S): L03.119 - Cellulitis of unspecified part of limb
== END 2021-11-02 23:59 | disposition home or self-care (01) ==
LOC: WC 13:15
PROVIDERS: PCP Nurse Practitioner Adult Health; Visit Provider Podiatrist
DX: L97.512 Non-pressure chronic ulcer of other part of right foot with fat layer exposed (principal); F31.9 Bipolar disorder, unspecified; I73.9 Peripheral vascular disease, unspecified; L03.119 Cellulitis of unspecified part of limb; R60.0 Localized edema; Z79.899 Other long term (current) drug therapy; F17.200 Nicotine dependence, unspecified, uncomplicated
CPT/HCPCS: 11042; 11045; 87070; 87075; 87077; 87186; 87205; 97597; 97598; 99213; G0463

== ENCOUNTER 2021-11-15 09:30 | Outpatient (RCR) | payer MEDICARE, MEDICAID, SELFPAY ==
[2021-11-03 00:18] VITALS: BP 129/64; PULSE 69; RESP 18; TEMP 36.3
[2021-11-08 14:30] VITALS: BP 123/68; PULSE 65; RESP 20; TEMP 36.2
--- NOTE | 2021-11-08 16:17 | PN.PCM_ITS ---
History of Present Illness Date of Service: 11/08/21 Chief Complaint: Left and right foot maceration and dorsal foot ulcers History of Wound: This 60-year-old male with significant past medical history of bipolar disorder presents complaining of a left and right foot previous foot moisture and skin ulcers. He denies fever, chill, nausea, vomiting. He denies odor or drainage. Patient has recurrent wound to right foot. Patient has history of smoking. Patient refuses to quit. Patient refuses offloading with surgical shoe. Patient notes that he elevates his legs to manage edema. Progress of Wound: This is a courtesy visit for Dr. Junior.? Right dorsal foot, toes and webspace ulcer has improved. He has dried, scabbing covering the ulcer. He is wearing shoes that he has cut the top out so there is no pressure on his toes. Objective Data Objective Data Vital Signs: Vital Signs Temp Pulse Resp BP 97.2 F L 65 20 H 123/68 H 11/08/21 14:30 11/08/21 14:30 11/08/21 14:30 11/08/21 14:30 Charges/Coding Addendum Addendum: Selective debridement 73273 Physical Exam Const alert and oriented x3 HEENT normocephalic Resp normal respiratory effort Cardio regular rate Extremity normal capillary refill Extremity Narrative: +1 edema of feet and ankles. Skin Wound Narrative: Right dorsal foot, toes and web spaces with dry, scabbing present over the ulce rs. Once the scabbing was removed, the ulcer is only on the dorsal great toe. The rest is healed. Neuro oriented x3 Psych Appearance: grossly normal Debridement Note Debridement Note Wound debrided: Dorsal foot, toes and web spaces Laterality: Right Type of Debridement: Selective debridement Anesthesia Used: 4% Lidocaine Solution Depth: Down to and including healthy tissue Percentage of wound debrided: 100 Instrument Used: - (scissors and pickup) Tissue Removed: Dried, non viable, scabbing tissue Severity: Fat Layer Exposed Amount of bleeding with debridement: Mild Bleeding Controlled with: Compression and gauze Patient tolerated procedure: Patient tolerated procedure well Post-Debridement Measurements and Additional Note: Post-Debridement Measurements/Treatment RA - Nurse 1 - General Ulcer Assessment Start: 11/08/21 14:27 Freq: Status: Active Protocol: JOURDANEXT Activity Type Activity Date Activity User E-sign Co-sign Detail Recorded Client Recorded Date Recorded By Document 11/08/21 14:30 DL [id number] 11/08/21 14:38 11/08/21 14:30 - Today's Visit Information Type of service 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 Any new allergies or adverse reactions No Had a fall/change in ADL's that may No increase risk of falls Signs or symptoms of abuse and/or No neglect since last visit Have you been in the hospital since your No last visit? Has dressing in place as prescribed Yes Has compression in place as prescribed Yes Has offloadiing in place as prescribed N/A Experienced any changes in pain level or No management Pain Scale: 0-10 Numeric Is Patient Pain Free? Yes - Nurse 1 - General Ulcer Measurement Start: 11/08/21 14:27 Freq: Status: Active Protocol: Activity Type Activity Date Activity User E-sign Co-sign Detail Recorded Client Recorded Date Recorded By Document 11/08/21 14:30 DL [id number] 11/08/21 14:38 11/08/21 14:30 Wound Center Nurse 1 #13 1st and 2nd web space right foot -Current Size (cm) - Length 0.1 -Current Size (cm) - Width 0.1 -Current Size (cm) - Depth 0.1 -Total Square Cm 0.01 -Photo Taken No -Exudate Amt None Present -Wound Margin Thickened -Granulation Amt None Present (0 %) -Necrosis Amt Large (67-100%) -Necrotic Tissue Type Eschar -Structure Exposed N/A -Texture (Brandi-wound Skin Appearance) Scarring -Moisture (Brandi-wound Skin Appearance) Dry/Scaly -Color (Brandi-wound Skin Appearance) Hemosiderin Staining -Temperature (Brandi-wound Skin No Abnormality Appearance) (Pt Warm) -Tenderness on Palpation (Brandi-wound No Skin Appearance) -Ulcer Cleansing Soap and Water -Anesthetic Used 5% Lidocaine Gel Right Calf (cm) 39 Right Ankle (cm) 27.5 - Nurse 2 - General Ulcer CM Notes Start: 11/08/21 14:27 Freq: Status: Active Protocol: Activity Type Activity Date Activity User E-sign Co-sign Detail Recorded Client Recorded Date Recorded By Document 11/08/21 15:02 MW [id number] 11/08/21 15:10 MW 11/08/21 15:02 Wound Center Nurse 2 #13 1st and 2nd web space right foot -Time 15:02 -Correct Patient Yes -Correct Side, Site, Position Yes -Correct Procedure Yes -Procedure Performed Yes -Type of Procedure Debridement -Clinical Debridement Epidermis / Dermis -Tissue Removed Epidermis -Post Debridement (cm) - Length 0.7 -Post Debridement (cm) - Width 0.7 -Post Debridement (cm) - Depth 0.1 -Total Square (Post) (cm) 0.49 -Area of Debridement (cm) - Length 0.7 -Area of Debridement (cm) - Width 0.7 -Total Square (Area) (cm) 0.49 -Tunneling No -Undermining/Tunneling No -Circular Undermining No -Wound/Ulcer Outcome Not Healed -Ulcer Cleansing Rinsed/ Irrigated with Saline -Foul Odor after Cleansing No -Bioengineered Tissue No -Bleeding Controlled with Pressure -Treatment Response Procedure Tolerated Well -Offloading No -Debridement - Open, 1st 20sq cm Yes Pain Scale: 0-10 Numeric Is Patient Pain Free? Yes - Nurse 3 - General Ulcer D/C NN Start: 11/08/21 14:27 Freq: Status: Active Protocol: Activity Type Activity Date Activity User E-sign Co-sign Detail Recorded Client Recorded Date Recorded By Document 11/08/21 15:13 MW [id number] 11/08/21 15:14 MW 11/08/21 15:13 Wound Care Nurse 3 #13 1st and 2nd web space right foot -Ulcer Cleansing Rinsed/ Irrigated with Saline -Foul Odor after Cleansing No -Negative Pressure Wound Therapy N/A -Primary Dressing Applied C Hydrogel ($) -Primary Dressing Covered/Secured with Dry Gauze & Roll Gauze, Secured with Tape Right -Lotion applied to leg before Yes compression wrap Treatment Response Procedure Tolerated Well Pain Scale: 0-10 Numeric Is Patient Pain Free? Yes Teaching: Wound Center Dressing Your Wound -Person Taught Patient,Family -Teaching Method Discussion, Demonstration -Response to teaching Verbalize understanding WC - Visit Discharge Discharge Condition Stable Ambulatory Status Ambulatory, Walker Transportation Private Auto Accompanied by MOM Medication Reconcilliation completed & No provided to patient/care provider Clinical Summary of Care Provided Yes Assessment/Plan Assessment/Plan (1) Peripheral vascular disease, unspecified: CODE(S): I73.9 - Peripheral vascular disease, unspecified (2) Ulcer of right foot with fat layer exposed: CODE(S): L97.512 - Non-pressure chronic ulcer of other part of right foot with fat layer exposed PLAN: Courtesy visit for Dr. Junior. Patient evaluated today, a selective debridement was performed. There was dry, excess non vital tissue that was removed over the entire ulcer and web space of the right foot. The skin was healed under the scabbing that was removed. Patient tolerated the selective debridement well. The area is dry, there is a small ulcer cluster on the dorsal great toe base. Wound care will be collagen hydrogel covered with gauze after washing feet with soap and water and drying well, daily. Gauze placed between toes daily to keep them dry. Place lotion daily on the healed areas. Tubigrip for compression. Discussed elevation of his leg and not sleeping in recliner. Encouraged patient to stop smoking as it may have deleterious effects on wound healing. Patient refuses offloading via surgical shoe because it makes him unstable. Instructed to complete his antibiotics that were prescribed for his positive wound cultures. Follow-up in [address] Junior. (3) Cellulitis of foot: CODE(S): L03.119 - Cellulitis of unspecified part of limb
[2021-11-15 09:49] VITALS: BP 120/66; PULSE 62; RESP 18; TEMP 36.4
--- NOTE | 2021-11-15 10:38 | PN.PCM_ITS ---
History of Present Illness Date of Service: 11/15/21 Chief Complaint: Left and right foot maceration and dorsal foot ulcers History of Wound: This 60-year-old male with significant past medical history of bipolar disorder presents complaining of a left and right foot previous foot moisture and skin ulcers. He denies fever, chill, nausea, vomiting. He denies odor or drainage. Patient has recurrent wound to right foot. Patient has history of smoking. Patient refuses to quit. Patient refuses offloading with surgical shoe. Patient notes that he elevates his legs to manage edema. Progress of Wound: This is a courtesy visit for Dr. Junior.? Right dorsal foot, toes and webspace ulcer has improved. He has dried, scabbing covering the ulcer. He is wearing shoes that he has cut the top out so there is no pressure on his toes. Objective Data Objective Data Vital Signs: Vital Signs Temp Pulse Resp BP O2 Del Method 97.5 F L 62 18 120/66 Room Air 11/15/21 09:49 11/15/21 09:49 11/15/21 09:49 11/15/21 09:49 11/15/21 09:49 Oxygen Delivery Method Room Air Physical Exam Narrative Neurovascular status unchanged from previous visit. Healed wounds to first second interspace right foot. Musculoskeletal no gross deformities noted bilaterally. Vascular strength full. No pain with calf squeeze palpation popliteal fossa. Const alert and oriented x3 HEENT normocephalic Resp normal respiratory effort Cardio regular rate Extremity normal capillary refill Extremity Narrative: +1 edema of feet and ankles. Skin Wound Narrative: Right dorsal foot, toes and web spaces with dry, scabbing present over the ulcers. Once the scabbing was removed, the ulcer is only on the dorsal great toe. The rest is healed. Neuro oriented x3 Psych Appearance: grossly normal Debridement Note Debridement Note Post-Debridement Measurements and Additional Note: Post-Debridement Measurements/Treatment RA - Nurse 1 - General Ulcer Assessment Start: 11/08/21 14:27 Freq: Status: Active Protocol: JOURDANEXBrandon Activity Type Activity Date Activity User E-sign Co-sign Detail Recorded Client Recorded Date Recorded By Document 11/08/21 14:30 DL [id number] 11/08/21 14:38 DL Document 11/15/21 09:49 MW [id number] 11/15/21 09:51 MW 11/08/21 11/15/21 14:30 09:49 - Today's Visit Information Type of service Follow-up Visit Follow-up Visit (Physician/HOUSEKEEPING MANAGER (Physician/HOUSEKEEPING MANAGER ) ) Arrival Mode Ambulatory, Ambulatory, Walker Walker Transfer Assistance None None Accompanied by mom Patient Identification Verified (Name & Yes Yes ) Patient Requires Transmission-Based No No Precautions Safety Precautions NA NA Vital Signs Temperature (97.8 F-99.1 F) 97.2 F L 97.5 F L Temperature Source Temporal Temporal Pulse Rate (60-100) 65 62 Pulse Location Monitor Monitor Respiratory Rate (12-18) 20 H 18 Respiratory rate source Observation Observation Oxygen Delivery Method Room Air Blood Pressure (90/60-120/80) 123/68 H 120/66 Blood Pressure Mean (mm Hg) 86 84 Source Monitor Monitor Position Sitting Blood Pressure Location Left Arm History Since Last Visit- (Skip if this is Patient's initial visit) Have you changed medications since your No No last visit? Any new allergies or adverse reactions No No Had a fall/change in ADL's that may No No increase risk of falls Signs or symptoms of abuse and/or No No neglect since last visit Have you been in the hospital since your No No last visit? Has dressing in place as prescribed Yes Yes Has compression in place as prescribed Yes Yes Has offloadiing in place as prescribed N/A N/A Experienced any changes in pain level or No No management Left Footwear Regular Shoe Right Footwear Surgical Shoe with pressure relief insole Pain Scale: 0-10 Numeric Is Patient Pain Free? Yes Yes - Nurse 1 - General Ulcer Measurement Start: 11/08/21 14:27 Freq: Status: Active Protocol: Activity Type Activity Date Activity User E-sign Co-sign Detail Recorded Client Recorded Date Recorded By Document 11/08/21 14:30 DL [id number] 11/08/21 14:38 DL Document 11/15/21 09:49 MW [id number] 11/15/21 09:51 MW 11/08/21 11/15/21 14:30 09:49 Wound Center Nurse 1 #13 1st and 2nd web space right foot -Combined with other wound No -Current Size (cm) - Length 0.1 0.1 -Current Size (cm) - Width 0.1 0.1 -Current Size (cm) - Depth 0.1 0.1 -Total Square Cm 0.01 0.01 -Photo Taken No No -Epithelialization Small 1-33% -Tunneling No -Undermining/Tunneling No -Circular Undermining No -Exudate Amt None Present None Present -Wound Margin Thickened Flat & Intact -Granulation Amt None Present (0 None Present (0 %) %) -Granulation Quality N/A -Slough/Fibrin Yes -Necrosis Amt Large (67-100%) Small (1-33%) -Necrotic Tissue Type Eschar Adherent Slough -Structure Exposed N/A N/A -Texture (Brandi-wound Skin Appearance) Scarring Assessed, Localized Edema ,Scarring -Moisture (Brandi-wound Skin Appearance) Dry/Scaly Assessed,Dry/ Scaly -Color (Brandi-wound Skin Appearance) Hemosiderin Assessed, Staining Hemosiderin Staining -Temperature (Brandi-wound Skin No Abnormality No Abnormality Appearance) (Pt Warm) (Pt Warm) -Tenderness on Palpation (Brandi-wound No No Skin Appearance) -Ulcer Cleansing Soap and Water Rinsed/ Irrigated with Saline -Foul Odor after Cleansing No -Anesthetic Used 5% Lidocaine 5% Lidocaine Gel Gel Lower Limb Edema Present Yes Right Calf (cm) 39 41.0 Right Ankle (cm) 27.5 29.5 WC - Nurse 2 - General Ulcer CM Notes Start: 11/08/21 14:27 Freq: Status: Active Protocol: Activity Type Activity Date Activity User E-sign Co-sign Detail Recorded Client Recorded Date Recorded By Document 11/08/21 15:02 [id number] 11/08/21 15:10 Document 11/15/21 10:18 [id number] 11/15/21 10:18 11/08/21 11/15/21 15:02 10:18 Wound Center Nurse 2 #13 1st and 2nd web space right foot -Time 15:02 -Correct Patient Yes No -Correct Side, Site, Position Yes No -Correct Procedure Yes No -Procedure Performed Yes No -Type of Procedure Debridement -Clinical Debridement Epidermis / Dermis -Tissue Removed Epidermis -Post Debridement (cm) - Length 0.7 0 -Post Debridement (cm) - Width 0.7 0 -Post Debridement (cm) - Depth 0.1 0 -Total Square (Post) (cm) 0.49 0 -Area of Debridement (cm) - Length 0.7 0 -Area of Debridement (cm) - Width 0.7 0 -Total Square (Area) (cm) 0.49 0 -Tunneling No -Undermining/Tunneling No -Circular Undermining No -Wound/Ulcer Outcome Not Healed Healed- Epithelialized -Ulcer Cleansing Rinsed/ Irrigated with Saline -Foul Odor after Cleansing No -Bioengineered Tissue No -Bleeding Controlled with Pressure -Treatment Response Procedure Tolerated Well -Offloading No -Debridement - Open, 1st 20sq cm Yes Pain Scale: 0-10 Numeric Is Patient Pain Free? Yes Yes - Nurse 3 - General Ulcer D/C NN Start: 11/08/21 14:27 Freq: Status: Active Protocol: Activity Type Activity Date Activity User E-sign Co-sign Detail Recorded Client Recorded Date Recorded By Document 11/08/21 15:13 [id number] 11/08/21 15:14 Document 11/15/21 10:23 [facility] [id number] 11/15/21 10:24 [facility] 11/08/21 11/15/21 15:13 10:23 Wound Care Nurse 3 #13 1st and 2nd web space right foot -Ulcer Cleansing Rinsed/ Irrigated with Saline -Foul Odor after Cleansing No -Negative Pressure Wound Therapy N/A -Primary Dressing Applied C Hydrogel ($) -Primary Dressing Covered/Secured with Dry Gauze & Roll Gauze, Secured with Tape Right -Lotion applied to leg before Yes compression wrap -Tubular Bandage Double Layer -Size of Tubigrip Used Size D -Size D ($) 2 -Other sent extra Treatment Response Procedure Procedure Tolerated Well Tolerated Well Pain Scale: 0-10 Numeric Is Patient Pain Free? Yes Yes Teaching: Wound Center Dressing Your Wound -Person Taught Patient,Family -Teaching Method Discussion, Demonstration -Response to teaching Verbalize understanding WC - Visit Discharge Discharge Condition Stable Stable Ambulatory Status Ambulatory, Ambulatory, Walker Walker Transportation Private Auto Private Auto Accompanied by MOM mom Medication Reconcilliation completed & No provided to patient/care provider Clinical Summary of Care Provided Yes Other [facility] Assessment/Plan Assessment/Plan (1) Peripheral vascular disease, unspecified: CODE(S): I73.9 - Peripheral vascular disease, unspecified (2) Ulcer of right foot with fat layer exposed: CODE(S): L97.512 - Non-pressure chronic ulcer of other part of right foot with fat layer exposed PLAN: Exam performed. Wounds to right foot healed at this time. Patient will continue compression exercise elevation for edema management. Patient refusing compression stockings stating he cannot pay for them. Patient agrees to use Tubigrip for compression on a daily basis. Patient will follow up in 2 months to my office to ensure no recurrence. (3) Cellulitis of foot: CODE(S): L03.119 - Cellulitis of unspecified part of limb
== END 2021-11-16 15:43 | disposition home or self-care (01) ==
LOC: WC 09:30
PROVIDERS: PCP Nurse Practitioner Adult Health; Visit Provider Podiatrist
DX: L97.512 Non-pressure chronic ulcer of other part of right foot with fat layer exposed (principal); F31.9 Bipolar disorder, unspecified; I73.9 Peripheral vascular disease, unspecified; R60.0 Localized edema; Z79.1 Long term (current) use of non-steroidal anti-inflammatories (NSAID); Z79.899 Other long term (current) drug therapy; L03.119 Cellulitis of unspecified part of limb
CPT/HCPCS: 97597; 99213; G0463

== ENCOUNTER 2023-04-03 13:00 | Outpatient (RCR) | payer MEDICARE, MEDICAID, SELFPAY ==
[2023-03-22 13:15] VITALS: BP 137/83; PULSE 89; RESP 18; TEMP 36.6
--- NOTE | 2023-03-22 17:11 | PCM.WC.HP ---
History of Present Illness Date of Service: 03/22/23 Chief Complaint: Left dorsal foot ulcers, left lower leg ulcers History of Wound: Mr. Tony Boggs is a 63-year-old male who presents to the wound center today from his assisted living facility with a chief complaint of left lower leg and foot ulcerations. He as in ulcer on his left george, left lateral foot, and left dorsal foot extending into the interdigital spaces. He reports the ulcer between his toes started first and this was about 4 to 6 weeks ago. The other ulcers have probably been present for about 3 weeks. He tried to take care of these himself with Neosporin but they continued to worsen. He denies any recent antibiotic treatment. He denies nausea, vomiting, fevers, chills, worsening or purulent drainage, extending redness up his leg, new or worsening pain in his left leg. He does have significant bilateral lower extremity edema, left worse than right. He has not been wearing any compression. He does admit that he also has not been elevating his legs when resting. He does both smoke cigarettes and vape, and he is not interested in quitting. He is not diabetic. He does have a history of prior similar ulcerations to his lower extremities and has been seen here at the wound healing center multiple times in the past. [facility] Medical History (Updated 03/23/23 @ 10:50 by ROLLY Harrison) Aspiration pneumonia Bipolar disorder COPD exacerbation GERD (gastroesophageal reflux disease) Hypoxemia Schizophrenia Sepsis Tobacco abuse Home Medications benztropine 2 mg tablet 1 mg PO QHS 02/18/15 [History Last Taken Unknown] lithium carbonate 300 mg tablet,extended release 600 mg PO QHS 02/18/15 [History Last Taken Unknown] olanzapine 10 mg tablet 10 mg PO DAILY 02/18/15 [History Last Taken Unknown] omeprazole 20 mg capsule,delayed release 20 mg PO BID 02/18/15 [History Last Taken Unknown] spironolactone 25 mg tablet 25 mg PO DAILY 02/18/15 [History Last Taken Unknown] fluphenazine decanoate 25 mg/mL injection solution 25 mg IJ .y1ctoep PARANOID SCHIZOPHRENIA 07/29/16 [History Last Taken Unknown] multivitamin,yz-xnon-lqupmnex 27 mg-0.4 mg tablet 1 tab PO DAILYCM 08/01/16 [Rx Last Taken Unknown] acetaminophen 500 mg tablet (Pharbetol) 1,000 mg PO TID PRN Pain 05/02/18 [History Last Taken Unknown] albuterol sulfate 90 mcg/actuation aerosol inhaler (Ventolin HFA) 2 puff inhalation Q4H PRN PRN Sob &/Or Wheezing 05/02/18 [History Last Taken Unknown] docusate sodium 100 mg capsule (DOK) 100 mg PO BID PRN Constipation 05/02/18 [History Last Taken Unknown] fluticasone propionate 50 mcg/actuation nasal spray,suspension 1 spray DAILY PRN Allergies 05/02/18 [History Last Taken Unknown] montelukast 10 mg tablet 10 mg PO DAILY 05/02/18 [History Last Taken Unknown] olanzapine 20 mg tablet (Zyprexa) 20 mg PO QHS 05/02/18 [History Last Taken Unknown] omega-3 fatty acids-fish oil 300 mg-1,000 mg capsule 2 capsule PO BID 05/02/18 [History Last Taken Unknown] simvastatin 20 mg tablet (Zocor) 20 mg PO QHS 05/02/18 [History Last Taken Unknown] cholecalciferol (vitamin D3) 50 mcg (2,000 unit) capsule 2,000 unit PO DAILY 12/24/18 [History Last Taken Unknown] amlodipine 5 mg tablet 5 mg PO DAILY 03/22/23 [History Last Taken Unknown] buspirone 10 mg tablet 10 mg PO TID 03/22/23 [History Last Taken Unknown] sodium chloride 0.65 % nasal spray aerosol (Deep Sea Nasal) 1 spray intranasal TID PRN dry nasal passages 03/22/23 [History Last Taken Unknown] tamsulosin 0.4 mg capsule (Flomax) 0.4 mg PO QHS 03/22/23 [History Last Taken Unknown] Allergy/AdvReac Type Severity Reaction Status Date / Time codeine AdvReac Upset Verified 03/22/23 13:44 Stomach haloperidol [From Haldol] AdvReac Abd Verified 03/22/23 13:44 cramps/diarrhea haloperidol lactate AdvReac Abd Verified 03/22/23 13:44 [From Haldol] cramps/diarrhea ziprasidone AdvReac Unknown Verified 03/22/23 13:45 Family History Mother Diabetes Surgical History History of esophagogastroduodenoscopy (EGD) S/P bilateral inguinal hernia repair S/P laparoscopic cholecystectomy S/P right knee arthroscopy Social History (Updated 07/23/17 @ 13:[address] Korey Mosqueda MD) Smoking Status: Heavy Smoker (>10/day) Vital Signs Vital Signs Vital Signs: 03/22/23 13:15 Temperature 97.8 F Temperature Source Temporal Pulse Rate 89 Respiratory Rate 18 Blood Pressure 137/83 H Blood Pressure Mean 101 Blood Pressure Source Monitor Blood Pressure Position Sitting Blood Pressure Location Right Forearm Weight Weight: 200 lb Physical Exam Const alert, oriented x3, no apparent distress and average body habitus General Appearance: cooperative HEENT normocephalic, head/scalp atraumatic, hearing grossly normal bilaterally, external ears normal and external nose normal Eyes EOMs intact bilaterally General Eye: normal appearance of both eyes Neck General: normal visual inspection and trachea midline Resp normal respiratory effort, no retractions and no use of accessory muscles Effort and Inspection: able to speak in complete sentences; Negative for labored, grunting, stridor or audible wheezes Cardio regular rate and regular rhythm Extremity Extremity Narrative: left DP and PT pulses with multiphasic signals on Doppler Skin Skin Narrative: Right lower extremity with significant amount of dry flaky skin, but no visible open areas Wounds: wounds noted Wound Narrative: Large superficial ulceration to the left george with very macerated edges and significant slough. ulceration to the left lateral foot with macerated edges and significant slough. Ulceration to the dorsum of the left foot extending to the 1st-2nd and 2nd-3rd interdigital spaces with significant slough and maceration. No focal or extending erythema, no fluctuance, excessive warmth. Neuro oriented x3, CN's II-XII intact bilaterally and moves all extremities Psych mental status grossly normal Attitude: calm and engaged Activity / Motor Behavior: appropriate eye contact Speech: normal speech Mood & Affect: euthymic mood Debridement Note Debridement Note Wound debrided: left george cluster Laterality: Left Type of Debridement: Excisional debridement Anesthesia Used: 4% Lidocaine Solution Depth: Down to and including healthy tissue Percentage of wound debrided: 100 Instrument Used: 5mm curette Tissue Removed: slough, devitalized tissue Severity: Limited To Skin Breakdown Amount of bleeding with debridement: Mild Bleeding Controlled with: Pressure Patient tolerated procedure: Patient tolerated procedure well Post-Debridement Measurements and Additional Note: Post-Debridement Measurements/Treatment - Nurse 1 - General Ulcer Assessment Start: 03/22/23 13:12 Freq: Status: Active Protocol: DORA Activity Type Activity Date Activity User E-sign Co-sign Detail Recorded Client Recorded Date Recorded By Document 03/22/23 13:15 [facility] Desktop 03/22/23 13:42 [facility] 03/22/23 13:15 - Today's Visit Information Type of service Initial Visit Arrival Mode Ambulatory, Walker Transfer Assistance None Accompanied by MOM WAITING IN [facility] Patient Identification Verified (Name & Yes ) Patient Requires Transmission-Based No Precautions Height and Weight Weight 200 lb Weight in Pounds 200.0 lbs Weight Measurement Method Estimated by Patient Vital Signs Temperature (97.8 F-99.1 F) 97.8 F Temperature Source Temporal Pulse Rate (60-100) 89 Pulse Location Monitor Respiratory Rate (12-18) 18 Respiratory rate source Observation Blood Pressure (90/60-120/80) 137/83 H Blood Pressure Mean 101 Source Monitor Position Sitting Blood Pressure Location Right Forearm History Since Last Visit- (Skip if this is Patient's initial visit) Left Footwear Regular Shoe Right Footwear Regular Shoe Pain Scale: 0-10 Numeric Is Patient Pain Free? Yes Lower Extremity Assessment/ Foot Assessment/ Toe Nail Assessment Right -Posterior Tibial Palpable No -Posterior Tibial Doppler Monophasic -Dorsalis Pedis Palpable No -Dorsalis Pedis Doppler Monophasic -Extremity Color Hyperpigmented, Hemosiderin -Hair Growth on Legs No -Hair Growth on Toes No -Temperature of Extremity Warm -Foot Assessment Unable to perform due to Altered Mental Status -Other Deformity No -Thick Yes -Discolored Yes -Deformed No -Improper Length & Hygeine Yes Left -Posterior Tibial Palpable No -Posterior Tibial Doppler Monophasic -Dorsalis Pedis Palpable No -Dorsalis Pedis Doppler Monophasic -Extremity Color Hyperpigmented, Hemosiderin -Hair Growth on Legs No -Hair Growth on Toes No -Temperature of Extremity Warm -Other Deformity No -Prior Foot Ulcer No -Charcot Joint No -Prior Amputation No -Thick Yes -Discolored Yes -Deformed No -Improper Length & Hygeine Yes Communication Assessment Preferred language Citizen Of [place] [employer] Required No Able to Read Yes Able to Write Yes Communication Tools None Right Hearing Abillity Normal Left Hearing Abillity Normal Visual Assistive Devices Glasses Teaching Assessment Preferences Verbal,Written, Audio/Visual, Demonstration Barriers to Learning Knowledge Deficit Anxiety Level Calm Cooperation Cooperative Perception Coherent Interest in Health Problem Asks Questions Education Importance Acknowledges Need Does Patient Smoke tobacco or other No substances Smoking Status Heavy Smoker (> 10/day) Functional Assessment Recent Decline in Ability to Perform Denies Any Declines 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 Cultural/Muslim Needs that may affect No Treatment Plan Teaching: Wound Center *Welcome to the Wound Center -Person Taught Patient -Teaching Method Discussion -Response to teaching Verbalize understanding Welcome to the Wound Care Center Citizen Of [place] WC - Nurse 1 - General Ulcer Measurement Start: 03/22/23 13:12 Freq: Status: Active Protocol: Activity Type Activity Date Activity User E-sign Co-sign Detail Recorded Client Recorded Date Recorded By Document 03/22/23 13:15 [facility] Desktop 03/22/23 13:42 [facility] 03/22/23 13:15 Wound Center Nurse 1 #17- 1ST/2ND INTERDIGITAL SPACE L FOOT -Combined with other wound No -Current Size (cm) - Length 3.2 -Current Size (cm) - Width 3 -Current Size (cm) - Depth 0.1 -Total Square Cm 9.6 -Date of Last Picture (Recall this 03/22/23 field) -Photo Taken Yes -Epithelialization None Present -Tunneling No -Undermining/Tunneling No -Circular Undermining No -Exudate Amt Medium -Exudate Type Serosanguineous -Wound Margin Distinct, Outline Attached -Granulation Amt Large (67-100%) -Granulation Quality Red -Slough/Fibrin Yes -Necrosis Amt Small (1-33%) -Necrotic Tissue Type Adherent Slough -Texture (Brandi-wound Skin Appearance) Assessed, Scarring -Moisture (Brandi-wound Skin Appearance) Assessed, Maceration, Weeping,Dry/ Scaly -Color (Brandi-wound Skin Appearance) Assessed, Erythema -Temperature (Brandi-wound Skin No Abnormality Appearance) (Pt Warm) -Tenderness on Palpation (Brandi-wound No Skin Appearance) -Ulcer Cleansing Soap and Water -Foul Odor after Cleansing No -Anesthetic Used 4% Lidocaine Solution #16- L LAT FOOT CLUSTER -Combined with other wound No -Current Size (cm) - Length 5.4 -Current Size (cm) - Width 0.3 -Current Size (cm) - Depth 0.2 -Total Square Cm 1.62 -Date of Last Picture (Recall this 03/22/23 field) -Photo Taken Yes -Tunneling No -Undermining/Tunneling No -Circular Undermining No -Exudate Amt Medium -Exudate Type Serosanguineous -Wound Margin Distinct, Outline Attached -Granulation Amt Small (1-33%) -Granulation Quality Red -Slough/Fibrin Yes -Necrosis Amt Medium (34-66%) -Necrotic Tissue Type Adherent Slough -Texture (Brandi-wound Skin Appearance) Assessed,Callus ,Scarring -Moisture (Brandi-wound Skin Appearance) Assessed,Dry/ Scaly -Color (Brandi-wound Skin Appearance) Assessed -Temperature (Brandi-wound Skin No Abnormality Appearance) (Pt Warm) -Tenderness on Palpation (Brandi-wound No Skin Appearance) -Ulcer Cleansing Soap and Water -Foul Odor after Cleansing No -Anesthetic Used 4% Lidocaine Solution #15- L MED GEORGE LE CLUSTER -Combined with other wound No -Current Size (cm) - Length 12.9 -Current Size (cm) - Width 7 -Current Size (cm) - Depth 0.1 -Total Square Cm 90.3 -Date of Last Picture (Recall this 03/22/23 field) -Photo Taken Yes -Epithelialization None Present -Tunneling No -Undermining/Tunneling No -Circular Undermining No -Exudate Amt Medium -Exudate Type Serosanguineous -Wound Margin Distinct, Outline Attached -Granulation Amt Small (1-33%) -Granulation Quality Red -Slough/Fibrin Yes -Necrosis Amt Large (67-100%) -Necrotic Tissue Type Adherent Slough -Texture (Brandi-wound Skin Appearance) Assessed, Scarring -Moisture (Brandi-wound Skin Appearance) Assessed, Maceration,Dry/ Scaly -Color (Brandi-wound Skin Appearance) Assessed, Erythema -Temperature (Brandi-wound Skin No Abnormality Appearance) (Pt Warm) -Tenderness on Palpation (Brandi-wound No Skin Appearance) -Ulcer Cleansing Soap and Water -Foul Odor after Cleansing No -Anesthetic Used 4% Lidocaine Solution Lower Limb Edema Present Yes Right Calf (cm) 39.2 Right Ankle (cm) 27.1 Left Calf (cm) 45.5 Left Ankle (cm) 31.1 WC - Nurse 2 - General Ulcer CM Notes Start: 03/22/23 13:12 Freq: Status: Active Protocol: Activity Type Activity Date Activity User E-sign Co-sign Detail Recorded Client Recorded Date Recorded By Document 03/22/23 16:00 PL [id number] 03/22/23 16:12 PL 03/22/23 16:00 Wound Center Nurse 2 #17- 1ST/2ND INTERDIGITAL SPACE L FOOT -Time 13:55 -Correct Patient Yes -Correct Side, Site, Position Yes -Correct Procedure Yes -Procedure Performed Yes -Type of Procedure Debridement -Clinical Debridement Subcutaneous -Tissue Removed Subcutaneous -Post Debridement (cm) - Length 5.4 -Post Debridement (cm) - Width 4.0 -Post Debridement (cm) - Depth 0.1 -Total Square (Post) (cm) 21.60 -Area of Debridement (cm) - Length 5.4 -Area of Debridement (cm) - Width 4.0 -Total Square (Area) (cm) 21.60 -Tunneling No -Undermining/Tunneling No -Circular Undermining No -Wound/Ulcer Outcome Not Healed -Ulcer Cleansing Rinsed/ Irrigated with Saline -Foul Odor after Cleansing No -Bioengineered Tissue No -Bleeding Controlled with Pressure -Treatment Response Procedure Tolerated Well -Debridement - Subq, 1st 20sq cm No #16- L LAT FOOT CLUSTER -Time 13:55 -Correct Patient Yes -Correct Side, Site, Position Yes -Correct Procedure Yes -Procedure Performed Yes -Type of Procedure Debridement -Clinical Debridement Subcutaneous -Tissue Removed Subcutaneous -Post Debridement (cm) - Length 1.0 -Post Debridement (cm) - Width 6.4 -Post Debridement (cm) - Depth 0.1 -Total Square (Post) (cm) 6.40 -Area of Debridement (cm) - Length 1.0 -Area of Debridement (cm) - Width 6.4 -Total Square (Area) (cm) 6.40 -Tunneling No -Undermining/Tunneling No -Circular Undermining No -Wound/Ulcer Outcome Not Healed -Ulcer Cleansing Rinsed/ Irrigated with Saline -Foul Odor after Cleansing No -Bioengineered Tissue No -Bleeding Controlled with Pressure -Treatment Response Procedure Tolerated Well -Debridement - Subq, 1st 20sq cm No #15- L MED GEORGE LE CLUSTER -Time 13:55 -Correct Patient Yes -Correct Side, Site, Position Yes -Correct Procedure Yes -Procedure Performed Yes -Type of Procedure Debridement -Clinical Debridement Subcutaneous -Tissue Removed Subcutaneous -Post Debridement (cm) - Length 12.8 -Post Debridement (cm) - Width 5.6 -Post Debridement (cm) - Depth 0.1 -Total Square (Post) (cm) 71.68 -Area of Debridement (cm) - Length 12.8 -Area of Debridement (cm) - Width 5.6 -Total Square (Area) (cm) 71.68 -Tunneling No -Undermining/Tunneling No -Circular Undermining No -Wound/Ulcer Outcome Not Healed -Ulcer Cleansing Rinsed/ Irrigated with Saline -Foul Odor after Cleansing No -Bioengineered Tissue No -Bleeding Controlled with Pressure -Treatment Response Procedure Tolerated Well -Debridement - Subq, 1st 20sq cm Yes -Debridement, SubQ, ea addt'l 20sq cm 4 or part thereof Pain Scale: 0-10 Numeric Is Patient Pain Free? Yes WC - Nurse 3 - General Ulcer D/C NN Start: 03/22/23 13:12 Freq: Status: Active Protocol: Activity Type Activity Date Activity User E-sign Co-sign Detail Recorded Client Recorded Date Recorded By Document 03/22/23 14:50 [facility] Desktop 03/22/23 14:51 [facility] 03/22/23 14:50 Wound Care Center Nurse 3 #17- 1ST/2ND INTERDIGITAL SPACE L FOOT -Ulcer Cleansing Rinsed/ Irrigated with Saline -Foul Odor after Cleansing No -Primary Dressing Applied Fibracol Plus 4x4 -Primary Dressing Covered/Secured with Dry Gauze & Roll Gauze, Secured with Tape -Fibracol Plus 4x4 2 #16- L LAT FOOT CLUSTER -Ulcer Cleansing Rinsed/ Irrigated with Saline -Foul Odor after Cleansing No -Primary Dressing Applied Fibracol Plus 4x4 -Other Dressing UNNA BOOT -Fibracol Plus 4x4 0 #15- L MED GEORGE LE CLUSTER -Ulcer Cleansing Rinsed/ Irrigated with Saline -Foul Odor after Cleansing No -Primary Dressing Applied Fibracol Plus 4x4 -Other Dressing UNNA BOOT -Fibracol Plus 4x4 0 BLE -Multi-Layered Wrap Application Unna Boot - Bilateral ($) Treatment Response Procedure Tolerated Well Pain Scale: 0-10 Numeric Is Patient Pain Free? Yes WC - Visit Discharge Discharge Condition Stable Ambulatory Status Ambulatory, Walker Transportation Private Auto Accompanied by MOM IN [facility] Additional Wound Wound debrided: Left lateral foot Laterality: Left Type of Debridement: Excisional debridement Anesthesia Used: 4% Lidocaine Solution Depth: Down to and including healthy tissue Percentage of wound debrided: 100 Instrument Used: 5mm curette Tissue Removed: slough, devitalized tissue Severity: Limited To Skin Breakdown Bleeding Controlled with: Pressure Patient tolerated procedure: Patient tolerated procedure well Additional Wound Wound debrided: left dorsal foot Laterality: Left Type of Debridement: Excisional debridement Anesthesia Used: 4% Lidocaine Solution Depth: Down to and including healthy tissue Percentage of wound debrided: 100 Instrument Used: 5mm curette Tissue Removed: slough, devitalized tissue Severity: Limited To Skin Breakdown Amount of bleeding with debridement: Mild Bleeding Controlled with: Pressure Patient tolerated procedure: Patient tolerated procedure well Charges/Coding Procedures Integumentary [id number]: [id number] Charlee subq tissue 20 sq cm/< (total area of debridement was 99.68 sqcm) Assessment/Plan Assessment/Plan (1) Ulcer of left medial lower extremity: CODE(S): L97.829 - Non-pressure chronic ulcer of other part of left lower leg with unspecified severity (2) Ulcer of left foot: CODE(S): L97.529 - Non-pressure chronic ulcer of other part of left foot with unspecified severity (3) Skin ulcer of left foot including toes: CODE(S): L97.529 - Non-pressure chronic ulcer of other part of left foot with unspecified severity PLAN: Plan Will apply Fibracol to all open areas and then apply Unna boots bilaterally. He is instructed to keep these dressings clean and dry at all times. The Unna boots will be changed senior living through the week at his facility. No apparent signs or symptoms of infection on exam today. He is strongly advised to elevate his legs at all times of rest, ideally at or above the level of the heart. Avoid prolonged Teitel sitting or standing. Regular walking regimen is encouraged. He is strongly advised to stop smoking and vaping to both support current wound healing and for his overall health. He will return to the wound healing center in 1 week
[2023-03-27 14:47] VITALS: BP 141/69; PULSE 84; RESP 16; TEMP 36.6
[2023-03-29 13:45] VITALS: BP 152/92; TEMP 36.1
--- NOTE | 2023-03-30 08:51 | PCM.WC.PN ---
History of Present Illness Date of Service: 03/29/23 Chief Complaint: Left dorsal foot ulcers, left lower leg ulcers History of Wound: Mr. Tony Boggs is a 63-year-old male who presents to the wound center today from his assisted living facility with a chief complaint of left lower leg and foot ulcerations. He as in ulcer on his left beasley, left lateral foot, and left dorsal foot extending into the interdigital spaces. He reports the ulcer between his toes started first and this was about 4 to 6 weeks ago. The other ulcers have probably been present for about 3 weeks. He tried to take care of these himself with Neosporin but they continued to worsen. He denies any recent antibiotic treatment. He denies nausea, vomiting, fevers, chills, worsening or purulent drainage, extending redness up his leg, new or worsening pain in his left leg. He does have significant bilateral lower extremity edema, left worse than right. He has not been wearing any compression. He does admit that he also has not been elevating his legs when resting. He does both smoke cigarettes and vape, and he is not interested in quitting. He is not diabetic. He does have a history of prior similar ulcerations to his lower extremities and has been seen here at the wound healing center multiple times in the past. Subjective Subjective Patient had to come in for a nurse visit group home through the week to have his Unna boots changed as they were completely soaked through. Unfortunately there is no nursing available at his assisted living facility that is able to change the dressings there and were not able to coordinate home health due to his insurance. Otherwise, the patient denies any nausea, vomiting, fevers, chills. He reports that the wraps never felt too tight or uncomfortable that way, but he really did not like how wet they were. He would prefer to try a different type of wrap. Objective Data Objective Data Vital Signs: Vital Signs Temp Pulse Resp BP O2 Del Method 97.0 F L 84 16 152/92 H Room Air 03/29/23 13:45 03/27/23 14:47 03/27/23 14:47 03/29/23 13:45 03/29/23 13:45 Oxygen Delivery Method Room Air Weight: 200 lb Charges/Coding Procedures Integumentary [id number]: [id number] Charlee subq tissue 20 sq cm/< (total area of debridement was 90.8 sqcm) Physical Exam Const alert, oriented x3, no apparent distress and average body habitus General Appearance: cooperative HEENT normocephalic, head/scalp atraumatic, hearing grossly normal bilaterally, external ears normal and external nose normal Eyes EOMs intact bilaterally General Eye: normal appearance of both eyes Neck General: normal visual inspection and trachea midline Resp normal respiratory effort, no retractions and no use of accessory muscles Effort and Inspection: able to speak in complete sentences; Negative for labored, grunting, stridor or audible wheezes Cardio regular rate and regular rhythm Extremity Extremity Narrative: left DP and PT pulses with multiphasic signals on Doppler Significant improvement in his bilateral lower extremity edema. Skin Skin Narrative: Right lower extremity with significant amount of dry flaky skin, but no visible open areas Wounds: wounds noted Wound Narrative: Large superficial ulceration to the left beasley with significant improvement in appearance with much less maceration at the edges. Still with a moderate amount of slough. Ulceration to the left lateral foot also with significant improvement in appearance with less maceration. Ulceration to the dorsum of the left foot extending to the 1st-2nd and 2nd-3rd interdigital spaces with significant significant improvement in appearance with less slough and maceration. Across all wounds there is normal amount of dried drainage. No focal or extending erythema, no fluctuance, excessive warmth. Neuro oriented x3, CN's II-XII intact bilaterally and moves all extremities Psych mental status grossly normal Attitude: calm and engaged Activity / Motor Behavior: appropriate eye contact Speech: normal speech Mood & Affect: euthymic mood Debridement Note Debridement Note Wound debrided: left beasley cluster Laterality: Left Type of Debridement: Excisional debridement Anesthesia Used: 4% Lidocaine Solution Depth: Down to and including healthy tissue Percentage of wound debrided: 100 Instrument Used: 5mm curette Tissue Removed: slough, devitalized tissue Severity: Limited To Skin Breakdown Amount of bleeding with debridement: Mild Bleeding Controlled with: Pressure Patient tolerated procedure: Patient tolerated procedure well Post-Debridement Measurements and Additional Note: Post-Debridement Measurements/Treatment RA - Nurse 1 - General Ulcer Assessment Start: 03/22/23 13:12 Freq: Status: Active Protocol: DORA Activity Type Activity Date Activity User E-sign Co-sign Detail Recorded Client Recorded Date Recorded By Document 03/22/23 13:15 BMF Desktop 03/22/23 13:42 BMF Document 03/27/23 14:47 KW Desktop 03/27/23 14:53 KW Document 03/29/23 13:45 GM Desktop 03/29/23 13:56 GM 03/22/23 03/27/23 03/29/23 13:15 14:47 13:45 WC - Today's Visit Information Type of service Initial Visit Nurse-only Follow-up Visit Visit (Physician/PALLIATIVE CARE NURSE ) Arrival Mode Ambulatory, Ambulatory, Ambulatory Walker Walker Transfer Assistance None None Accompanied by MOM WAITING IN [facility] Patient Identification Verified (Name & Yes Yes Yes ) Patient Requires Transmission-Based No Precautions Height and Weight Weight 200 lb Weight in Pounds 200.0 lbs Weight Measurement Method Estimated by Patient Vital Signs Temperature (97.8 F-99.1 F) 97.8 F 97.9 F 97.0 F L Temperature Source Temporal Temporal Temporal Pulse Rate (60-100) 89 84 Pulse Location Monitor Monitor Monitor Respiratory Rate (12-18) 18 16 Respiratory rate source Observation Observation Observation Oxygen Delivery Method Room Air Room Air Blood Pressure (90/60-120/80) 137/83 H 141/69 H 152/92 H Blood Pressure Mean (mm Hg) 101 93 112 Source Monitor Monitor Monitor Position Sitting Sitting Sitting Blood Pressure Location Right Forearm Left Arm Left Arm History Since Last Visit- (Skip if this is Patient's initial visit) Have you changed medications since your No No last visit? Any new allergies or adverse reactions No No Had a fall/change in ADL's that may No No increase risk of falls Signs or symptoms of abuse and/or No No neglect since last visit Have you been in the hospital since your No No last visit? Has dressing in place as prescribed Yes Yes Has compression in place as prescribed Yes Has offloadiing in place as prescribed N/A Yes Experienced any changes in pain level or No management Left Footwear Regular Shoe Regular Shoe Regular Shoe Right Footwear Regular Shoe Regular Shoe Regular Shoe Pain Scale: 0-10 Numeric Is Patient Pain Free? Yes Yes Yes Lower Extremity Assessment/ Foot Assessment/ Toe Nail Assessment Right -Posterior Tibial Palpable No -Posterior Tibial Doppler Monophasic -Dorsalis Pedis Palpable No -Dorsalis Pedis Doppler Monophasic -Extremity Color Hyperpigmented, Hemosiderin -Hair Growth on Legs No -Hair Growth on Toes No -Temperature of Extremity Warm -Foot Assessment Unable to perform due to Altered Mental Status -Other Deformity No -Thick Yes -Discolored Yes -Deformed No -Improper Length & Hygeine Yes Left -Posterior Tibial Palpable No -Posterior Tibial Doppler Monophasic -Dorsalis Pedis Palpable No -Dorsalis Pedis Doppler Monophasic -Extremity Color Hyperpigmented, Hemosiderin -Hair Growth on Legs No -Hair Growth on Toes No -Temperature of Extremity Warm -Other Deformity No -Prior Foot Ulcer No -Charcot Joint No -Prior Amputation No -Thick Yes -Discolored Yes -Deformed No -Improper Length & Hygeine Yes Communication Assessment Preferred language Kittitian Pin Inserter Regulator Required No Able to Read Yes Able to Write Yes Communication Tools None Right Hearing Abillity Normal Left Hearing Abillity Normal Visual Assistive Devices Glasses Teaching Assessment Preferences Verbal,Written, Audio/Visual, Demonstration Barriers to Learning Knowledge Deficit Anxiety Level Calm Cooperation Cooperative Perception Coherent Interest in Health Problem Asks Questions Education Importance Acknowledges Need Does Patient Smoke tobacco or other No substances Smoking Status Heavy Smoker (> 10/day) Functional Assessment Recent Decline in Ability to Perform Denies Any Declines 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 Cultural/Islam Needs that may affect No Treatment Plan Teaching: Wound Center *Welcome to the Wound Center -Person Taught Patient -Teaching Method Discussion -Response to teaching Verbalize understanding Welcome to the Wound Care Center English KNAPP - Nurse 1 - General Ulcer Measurement Start: 03/22/23 13:12 Freq: Status: Active Protocol: Activity Type Activity Date Activity User E-sign Co-sign Detail Recorded Client Recorded Date Recorded By Document 03/22/23 13:15 [facility] Desktop 03/22/23 13:42 [facility] Document 03/29/23 13:45 Desktop 03/29/23 13:56 03/22/23 03/29/23 13:15 13:45 Wound Center Nurse 1 #17- 1ST/2ND INTERDIGITAL SPACE L FOOT -Combined with other wound No No -Current Size (cm) - Length 3.2 0.1 -Current Size (cm) - Width 3 0.1 -Current Size (cm) - Depth 0.1 0.1 -Total Square Cm 9.6 0.01 -Date of Last Picture (Recall this 03/22/23 03/29/23 field) -Photo Taken Yes Yes -Epithelialization None Present Large 67-100% -Tunneling No No -Undermining/Tunneling No No -Circular Undermining No No -Exudate Amt Medium -Exudate Type Serosanguineous -Wound Margin Distinct, Outline Attached -Granulation Amt Large (67-100%) -Granulation Quality Red -Slough/Fibrin Yes -Necrosis Amt Small (1-33%) -Necrotic Tissue Type Adherent Slough -Texture (Brandi-wound Skin Appearance) Assessed, Assessed, Scarring Scarring -Moisture (Brandi-wound Skin Appearance) Assessed, Assessed, Maceration, Maceration,Dry/ Weeping,Dry/ Scaly Scaly -Color (Brandi-wound Skin Appearance) Assessed, Assessed Erythema -Temperature (Brandi-wound Skin No Abnormality No Abnormality Appearance) (Pt Warm) (Pt Warm) -Tenderness on Palpation (Brandi-wound No No Skin Appearance) -Ulcer Cleansing Soap and Water Soap and Water -Foul Odor after Cleansing No No -Anesthetic Used 4% Lidocaine 4% Lidocaine Solution Solution #16- L LAT FOOT CLUSTER -Combined with other wound No No -Current Size (cm) - Length 5.4 0.1 -Current Size (cm) - Width 0.3 0.1 -Current Size (cm) - Depth 0.2 0.1 -Total Square Cm 1.62 0.01 -Date of Last Picture (Recall this 03/22/23 03/29/23 field) -Photo Taken Yes Yes -Epithelialization Large 67-100% -Tunneling No No -Undermining/Tunneling No No -Circular Undermining No No -Exudate Amt Medium None Present -Exudate Type Serosanguineous -Wound Margin Distinct, Outline Attached -Granulation Amt Small (1-33%) -Granulation Quality Red -Slough/Fibrin Yes -Necrosis Amt Medium (34-66%) -Necrotic Tissue Type Adherent Slough -Texture (Brandi-wound Skin Appearance) Assessed,Callus Assessed, ,Scarring Scarring -Moisture (Brandi-wound Skin Appearance) Assessed,Dry/ Assessed,Dry/ Scaly Scaly -Color (Brandi-wound Skin Appearance) Assessed Assessed -Temperature (Brandi-wound Skin No Abnormality No Abnormality Appearance) (Pt Warm) (Pt Warm) -Tenderness on Palpation (Brandi-wound No No Skin Appearance) -Ulcer Cleansing Soap and Water Soap and Water -Foul Odor after Cleansing No No -Anesthetic Used 4% Lidocaine 4% Lidocaine Solution Solution #15- L MED BEASLEY LE CLUSTER -Combined with other wound No No -Current Size (cm) - Length 12.9 12 -Current Size (cm) - Width 7 7.7 -Current Size (cm) - Depth 0.1 0.1 -Total Square Cm 90.3 92.4 -Date of Last Picture (Recall this 03/22/23 03/29/23 field) -Photo Taken Yes Yes -Epithelialization None Present Small 1-33% -Tunneling No No -Undermining/Tunneling No No -Circular Undermining No No -Exudate Amt Medium Large -Exudate Type Serosanguineous Serosanguineous -Wound Margin Distinct, Flat & Intact Outline Attached -Granulation Amt Small (1-33%) Medium (34-66%) -Granulation Quality Red Red -Slough/Fibrin Yes Yes -Necrosis Amt Large (67-100%) Medium (34-66%) -Necrotic Tissue Type Adherent Slough Adherent Slough -Texture (Brandi-wound Skin Appearance) Assessed, Assessed Scarring -Moisture (Brandi-wound Skin Appearance) Assessed, Assessed,Dry/ Maceration,Dry/ Scaly Scaly -Color (Brandi-wound Skin Appearance) Assessed, Assessed, Erythema Hemosiderin Staining -Temperature (Brandi-wound Skin No Abnormality No Abnormality Appearance) (Pt Warm) (Pt Warm) -Tenderness on Palpation (Brandi-wound No No Skin Appearance) -Ulcer Cleansing Soap and Water Soap and Water -Foul Odor after Cleansing No No -Anesthetic Used 4% Lidocaine 4% Lidocaine Solution Solution Lower Limb Edema Present Yes Yes Right Calf (cm) 39.2 38.6 Right Ankle (cm) 27.1 25.6 Left Calf (cm) 45.5 39.4 Left Ankle (cm) 31.1 29.6 WC - Nurse 2 - General Ulcer CM Notes Start: 03/22/23 13:12 Freq: Status: Active Protocol: Activity Type Activity Date Activity User E-sign Co-sign Detail Recorded Client Recorded Date Recorded By Document 03/22/23 16:00 PL [id number] 03/22/23 16:12 PL Document 03/29/23 15:36 PL [id number] 03/29/23 15:39 PL 01/18/24 01/25/24 16:00 15:36 Wound Center Nurse 2 #17- 1ST/2ND INTERDIGITAL SPACE L FOOT -Time 13:55 14:03 -Correct Patient Yes Yes -Correct Side, Site, Position Yes Yes -Correct Procedure Yes Yes -Procedure Performed Yes Yes -Type of Procedure Debridement Debridement -Clinical Debridement Subcutaneous Subcutaneous -Tissue Removed Subcutaneous Subcutaneous -Post Debridement (cm) - Length 5.4 3.4 -Post Debridement (cm) - Width 4.0 4.5 -Post Debridement (cm) - Depth 0.1 0.1 -Total Square (Post) (cm) 21.60 15.30 -Area of Debridement (cm) - Length 5.4 3.4 -Area of Debridement (cm) - Width 4.0 4.5 -Total Square (Area) (cm) 21.60 15.30 -Tunneling No No -Undermining/Tunneling No No -Circular Undermining No No -Wound/Ulcer Outcome Not Healed Not Healed -Ulcer Cleansing Rinsed/ Rinsed/ Irrigated with Irrigated with Saline Saline -Foul Odor after Cleansing No No -Bioengineered Tissue No No -Bleeding Controlled with Pressure Pressure -Treatment Response Procedure Procedure Tolerated Well Tolerated Well -Debridement - Subq, 1st 20sq cm No No #16- L LAT FOOT CLUSTER -Time 13:55 14:03 -Correct Patient Yes Yes -Correct Side, Site, Position Yes Yes -Correct Procedure Yes Yes -Procedure Performed Yes Yes -Type of Procedure Debridement Debridement -Clinical Debridement Subcutaneous Subcutaneous -Tissue Removed Subcutaneous Subcutaneous -Post Debridement (cm) - Length 1.0 10.0 -Post Debridement (cm) - Width 6.4 1.7 -Post Debridement (cm) - Depth 0.1 0.1 -Total Square (Post) (cm) 6.40 17.00 -Area of Debridement (cm) - Length 1.0 10.0 -Area of Debridement (cm) - Width 6.4 1.7 -Total Square (Area) (cm) 6.40 17.00 -Tunneling No No -Undermining/Tunneling No No -Circular Undermining No No -Wound/Ulcer Outcome Not Healed Not Healed -Ulcer Cleansing Rinsed/ Rinsed/ Irrigated with Irrigated with Saline Saline -Foul Odor after Cleansing No No -Bioengineered Tissue No No -Bleeding Controlled with Pressure Pressure -Treatment Response Procedure Procedure Tolerated Well Tolerated Well -Debridement - Subq, 1st 20sq cm No No #15- L MED BEASLEY LE CLUSTER -Time 13:55 14:03 -Correct Patient Yes Yes -Correct Side, Site, Position Yes Yes -Correct Procedure Yes Yes -Procedure Performed Yes Yes -Type of Procedure Debridement Debridement -Clinical Debridement Subcutaneous Subcutaneous -Tissue Removed Subcutaneous Subcutaneous -Post Debridement (cm) - Length 12.8 13.0 -Post Debridement (cm) - Width 5.6 4.5 -Post Debridement (cm) - Depth 0.1 0.1 -Total Square (Post) (cm) 71.68 58.50 -Area of Debridement (cm) - Length 12.8 13.0 -Area of Debridement (cm) - Width 5.6 4.5 -Total Square (Area) (cm) 71.68 58.50 -Tunneling No No -Undermining/Tunneling No No -Circular Undermining No No -Wound/Ulcer Outcome Not Healed Not Healed -Ulcer Cleansing Rinsed/ Rinsed/ Irrigated with Irrigated with Saline Saline -Foul Odor after Cleansing No No -Bioengineered Tissue No No -Bleeding Controlled with Pressure Pressure -Treatment Response Procedure Procedure Tolerated Well Tolerated Well -Debridement - Subq, 1st 20sq cm Yes Yes -Debridement, SubQ, ea addt'l 20sq cm 4 5 or part thereof Pain Scale: 0-10 Numeric Is Patient Pain Free? Yes Yes WC - Nurse 3 - General Ulcer D/C NN Start: 03/22/23 13:12 Freq: Status: Active Protocol: Activity Type Activity Date Activity User E-sign Co-sign Detail Recorded Client Recorded Date Recorded By Document 03/22/23 14:50 [facility] Desktop 03/22/23 14:51 [facility] Document 03/27/23 14:47 KW Desktop 03/27/23 14:53 KW Document 03/29/23 14:29 KW Desktop 03/29/23 14:31 KW 03/22/23 03/27/23 03/29/23 14:50 14:47 14:29 Wound Care Center Nurse 3 #17- 1ST/2ND INTERDIGITAL SPACE L FOOT -Ulcer Cleansing Rinsed/ Soap and Water Irrigated with Saline -Foul Odor after Cleansing No -Primary Dressing Applied Fibracol Plus Fibracol Plus 4x4 4x4,Optilok 6. 5x10 -Primary Dressing Covered/Secured with Dry Gauze & Dry Gauze & Dry Gauze & Roll Gauze, Roll Gauze, Roll Gauze, Secured with Secured with Secured with Tape Tape Tape -Fibracol Plus 4x4 2 1 -Optilok 6.5x10 1 #16- L LAT FOOT CLUSTER -Ulcer Cleansing Rinsed/ Irrigated with Saline -Foul Odor after Cleansing No -Primary Dressing Applied Fibracol Plus Fibracol Plus 4x4 4x4 -Other Dressing UNNA BOOT -Primary Dressing Covered/Secured with Dry Gauze Dry Gauze & Roll Gauze, Secured with Tape -Fibracol Plus 4x4 0 1 #15- L MED BEASLEY LE CLUSTER -Ulcer Cleansing Rinsed/ Irrigated with Saline -Foul Odor after Cleansing No -Primary Dressing Applied Fibracol Plus 4x4 -Other Dressing UNNA BOOT -Primary Dressing Covered/Secured with Dry Gauze & Dry Gauze & Roll Gauze, Roll Gauze, Secured with Secured with Tape Tape -Fibracol Plus 4x4 0 BLE -Multi-Layered Wrap Application Unna Boot - Unna Boot - Multi-Layer Bilateral ($) Bilateral ($) Comp - Bilat ($ ) Treatment Response Procedure Tolerated Well Vital Signs Temperature (97.8 F-99.1 F) 97.9 F Temperature Source Temporal Pulse Rate (60-100) 84 Pulse Location Monitor Respiratory Rate (12-18) 16 Respiratory rate source Observation Oxygen Delivery Method Room Air Blood Pressure (90/60-120/80) 141/69 H Blood Pressure Mean (mm Hg) 93 Source Monitor Position Sitting Blood Pressure Location Left Arm Pain Scale: 0-10 Numeric Is Patient Pain Free? Yes Yes Yes WC - Visit Discharge Discharge Condition Stable Stable Stable Ambulatory Status Ambulatory, Ambulatory, Ambulatory, Walker Walker Walker Transportation Private Auto Private Auto Private Auto Accompanied by MOM IN [facility] Medication Reconcilliation completed & No No provided to patient/care provider Clinical Summary of Care Provided Yes Yes Additional Wound Wound debrided: Left lateral foot Laterality: Left Type of Debridement: Excisional debridement Anesthesia Used: 4% Lidocaine Solution Depth: Down to and including healthy tissue Percentage of wound debrided: 100 Instrument Used: 5mm curette Tissue Removed: slough, devitalized tissue Severity: Limited To Skin Breakdown Bleeding Controlled with: Pressure Patient tolerated procedure: Patient tolerated procedure well Additional Wound Wound debrided: left dorsal foot Laterality: Left Type of Debridement: Excisional debridement Anesthesia Used: 4% Lidocaine Solution Depth: Down to and including healthy tissue Percentage of wound debrided: 100 Instrument Used: 5mm curette Tissue Removed: slough, devitalized tissue Severity: Limited To Skin Breakdown Amount of bleeding with debridement: Mild Bleeding Controlled with: Pressure Patient tolerated procedure: Patient tolerated procedure well Assessment/Plan Assessment/Plan (1) Ulcer of left medial lower extremity: CODE(S): L97.829 - Non-pressure chronic ulcer of other part of left lower leg with unspecified severity (2) Ulcer of left foot: CODE(S): L97.529 - Non-pressure chronic ulcer of other part of left foot with unspecified severity (3) Skin ulcer of left foot including toes: CODE(S): L97.529 - Non-pressure chronic ulcer of other part of left foot with unspecified severity PLAN: Plan Per patient's request, will switch from Unna boots to 3M wraps for compression this week. Will still apply lotion dry skin. Continue to apply Fibracol to all open areas and then apply 3M wraps with Suprasorbent dressing between the layers to better manage drainage. He is instructed to keep these dressings clean and dry at all times. No apparent signs or symptoms of infection on exam today. He is strongly advised to elevate his legs at all times of rest, ideally at or above the level of the heart. Avoid prolonged Teitel sitting or standing. Regular walking regimen is encouraged. He is strongly advised to stop smoking and vaping to both support current wound healing and for his overall health. He will return early next week for wrap changes and return to see me on afternoon.
[2023-04-03 13:02] VITALS: BP 138/76; PULSE 74; RESP 18; TEMP 36.2
== END 2023-04-04 23:59 | disposition home or self-care (01) ==
LOC: WC 13:00
PROVIDERS: PCP Nurse Practitioner Adult Health; Referring Provider Nurse Practitioner Adult Health; Visit Provider Physician Assistant
DX: L97.521 Non-pressure chronic ulcer of other part of left foot limited to breakdown of skin (principal); L97.921 Non-pressure chronic ulcer of unspecified part of left lower leg limited to breakdown of skin; J44.9 Chronic obstructive pulmonary disease, unspecified; R60.0 Localized edema; F17.210 Nicotine dependence, cigarettes, uncomplicated; F17.290 Nicotine dependence, other tobacco product, uncomplicated; K21.9 Gastro-esophageal reflux disease without esophagitis; Z79.899 Other long term (current) drug therapy
CPT/HCPCS: 11042; 11045; 29580; 29581; 99212; 99213; G0463

== ENCOUNTER 2023-04-19 13:30 | Outpatient (RCR) | payer MEDICARE, MEDICAID, SELFPAY ==
[2023-04-05 00:59] VITALS: BP 138/76; PULSE 74; RESP 18; TEMP 36.2
[2023-04-05 14:32] VITALS: BP 140/69; PULSE 85; RESP 16; TEMP 36.1
--- NOTE | 2023-04-06 09:59 | PCM.WC.PN ---
History of Present Illness Date of Service: 04/05/23 Chief Complaint: Left dorsal foot ulcers, left lower leg ulcers History of Wound: Mr. Tony Boggs is a 63-year-old male who presents to the wound center today from his assisted living facility with a chief complaint of left lower leg and foot ulcerations. He as in ulcer on his left beasley, left lateral foot, and left dorsal foot extending into the interdigital spaces. He reports the ulcer between his toes started first and this was about 4 to 6 weeks ago. The other ulcers have probably been present for about 3 weeks. He tried to take care of these himself with Neosporin but they continued to worsen. He denies any recent antibiotic treatment. He denies nausea, vomiting, fevers, chills, worsening or purulent drainage, extending redness up his leg, new or worsening pain in his left leg. He does have significant bilateral lower extremity edema, left worse than right. He has not been wearing any compression. He does admit that he also has not been elevating his legs when resting. He does both smoke cigarettes and vape, and he is not interested in quitting. He is not diabetic. He does have a history of prior similar ulcerations to his lower extremities and has been seen here at the wound healing center multiple times in the past. Subjective Subjective Patient reports that he did well with the 3M wraps this week. He does prefer them to the Unna boot. He reports overall his legs have been feeling better although he does have some discomfort at the lateral aspect of the left foot around that wound. He reports that he has been elevating his legs more frequently throughout the day. He denies any draining through the dressings. He said he did a good job keeping them clean and dry this week. He denies nausea, vomiting, fevers, chills. Objective Data Objective Data Vital Signs: Vital Signs Temp Pulse Resp BP O2 Del Method 97 F L 85 16 140/69 H Room Air 04/05/23 14:32 04/05/23 14:32 04/05/23 14:32 04/05/23 14:32 04/05/23 14:32 Oxygen Delivery Method Room Air Weight: 200 lb Charges/Coding Procedures Integumentary [id number]: 32000 Charlee subq tissue 20 sq cm/< (total area of debridement was 60.75 sqcm) Physical Exam Const alert, oriented x3, no apparent distress and average body habitus General Appearance: cooperative HEENT normocephalic, head/scalp atraumatic, hearing grossly normal bilaterally, external ears normal and external nose normal Eyes EOMs intact bilaterally General Eye: normal appearance of both eyes Neck General: normal visual inspection and trachea midline Resp normal respiratory effort, no retractions and no use of accessory muscles Effort and Inspection: able to speak in complete sentences; Negative for labored, grunting, stridor or audible wheezes Cardio regular rate and regular rhythm Extremity Extremity Narrative: left DP and PT pulses with multiphasic signals on Doppler Significant improvement in his bilateral lower extremity edema. Skin Wounds: wounds noted Wound Narrative: Large superficial ulceration to the left beasley with significant improvement in appearance with much less maceration at the edges. Still with a moderate amount of slough. Ulceration to the left lateral foot also with significant improvement and this week appearing very dry with significant adherent dried drainage and dry flaky skin. Ulceration to the dorsum of the left foot is significantly reduced in size and improved in appearance, much less macerated. No longer extends into the interdigital spaces, this portion has healed. No focal or extending erythema, no fluctuance, excessive warmth. Neuro oriented x3, CN's II-XII intact bilaterally and moves all extremities Psych mental status grossly normal Attitude: calm and engaged Activity / Motor Behavior: appropriate eye contact Speech: normal speech Mood & Affect: euthymic mood Debridement Note Debridement Note Wound debrided: left beasley cluster Laterality: Left Type of Debridement: Excisional debridement Anesthesia Used: 4% Lidocaine Solution Depth: Down to and including healthy tissue Percentage of wound debrided: 100 Instrument Used: 5mm curette Tissue Removed: slough, devitalized tissue Severity: Limited To Skin Breakdown Amount of bleeding with debridement: Mild Bleeding Controlled with: Pressure Patient tolerated procedure: Patient tolerated procedure well Post-Debridement Measurements and Additional Note: Post-Debridement Measurements/Treatment - Nurse 1 - General Ulcer Assessment Start: 04/05/23 14:32 Freq: Status: Active Protocol: DORA Activity Type Activity Date Activity User E-sign Co-sign Detail Recorded Client Recorded Date Recorded By Document 04/05/23 14:32 [facility] Desktop 04/05/23 14:50 [facility] 04/05/23 14:32 - Today's Visit Information Type of service Follow-up Visit (Physician/CERTIFIED REGISTERED NURSE ANESTHETIST ) Arrival Mode Ambulatory,Cane Transfer Assistance None Accompanied by [facility] Patient Identification Verified (Name & Yes ) Patient Requires Transmission-Based No Precautions Vital Signs Temperature (97.8 F-99.1 F) 97 F L Temperature Source Temporal Pulse Rate (60-100) 85 Pulse Location Monitor Respiratory Rate (12-18) 16 Respiratory rate source Observation Oxygen Delivery Method Room Air Blood Pressure (90/60-120/80) 140/69 H Blood Pressure Mean (mm Hg) 92 Source Monitor Position Sitting Blood Pressure Location Left Arm History Since Last Visit- (Skip if this is Patient's initial visit) Have you changed medications since your No last visit? Any new allergies or adverse reactions No Had a fall/change in ADL's that may No increase risk of falls Signs or symptoms of abuse and/or No neglect since last visit Have you been in the hospital since your No last visit? Has dressing in place as prescribed Yes Has compression in place as prescribed Yes Has offloadiing in place as prescribed N/A Experienced any changes in pain level or No management Left Footwear Regular Shoe Right Footwear Regular Shoe Pain Scale: 0-10 Numeric Is Patient Pain Free? Yes WC - Nurse 1 - General Ulcer Measurement Start: 04/05/23 14:32 Freq: Status: Active Protocol: Activity Type Activity Date Activity User E-sign Co-sign Detail Recorded Client Recorded Date Recorded By Document 04/05/23 14:32 [facility] Desktop 04/05/23 14:50 [facility] 04/05/23 14:32 Wound Center Nurse 1 #17- 1ST/2ND INTERDIGITAL SPACE L FOOT -Combined with other wound No -Current Size (cm) - Length 0.1 -Current Size (cm) - Width 0.1 -Current Size (cm) - Depth 0.1 -Total Square Cm 0.01 -Epithelialization Large 67-100% -Exudate Amt None Present -Texture (Brandi-wound Skin Appearance) Assessed -Moisture (Brandi-wound Skin Appearance) Assessed,Dry/ Scaly -Color (Brandi-wound Skin Appearance) Assessed -Temperature (Brandi-wound Skin No Abnormality Appearance) (Pt Warm) -Tenderness on Palpation (Brandi-wound No Skin Appearance) -Ulcer Cleansing Soap and Water -Foul Odor after Cleansing No -Anesthetic Used 5% Lidocaine Gel #16- L LAT FOOT CLUSTER -Combined with other wound No -Current Size (cm) - Length 0.1 -Current Size (cm) - Width 0.1 -Current Size (cm) - Depth 0.1 -Total Square Cm 0.01 -Epithelialization Large 67-100% -Tunneling No -Undermining/Tunneling No -Circular Undermining No -Exudate Amt None Present -Texture (Brandi-wound Skin Appearance) Assessed,Callus -Moisture (Brandi-wound Skin Appearance) Assessed,Dry/ Scaly -Color (Brandi-wound Skin Appearance) Assessed -Temperature (Brandi-wound Skin No Abnormality Appearance) (Pt Warm) -Tenderness on Palpation (Brandi-wound No Skin Appearance) -Ulcer Cleansing Soap and Water -Foul Odor after Cleansing No -Anesthetic Used 5% Lidocaine Gel #15- L MED BEASLEY LE CLUSTER -Combined with other wound No -Current Size (cm) - Length 11.5 -Current Size (cm) - Width 4.6 -Current Size (cm) - Depth 0.1 -Total Square Cm 52.90 -Epithelialization Small 1-33% -Tunneling No -Undermining/Tunneling No -Circular Undermining No -Exudate Amt Medium -Exudate Type Serosanguineous -Wound Margin Distinct, Outline Attached -Granulation Amt Medium (34-66%) -Granulation Quality Red -Slough/Fibrin Yes -Necrosis Amt Medium (34-66%) -Necrotic Tissue Type Adherent Slough -Texture (Brandi-wound Skin Appearance) Assessed, Scarring -Moisture (Brandi-wound Skin Appearance) Assessed,Dry/ Scaly -Color (Brandi-wound Skin Appearance) Assessed -Temperature (Brandi-wound Skin No Abnormality Appearance) (Pt Warm) -Tenderness on Palpation (Brandi-wound No Skin Appearance) -Ulcer Cleansing Soap and Water -Foul Odor after Cleansing No -Anesthetic Used 4% Lidocaine Solution Lower Limb Edema Present Yes Right Calf (cm) 37.6 Right Ankle (cm) 25.4 Left Calf (cm) 38.5 Left Ankle (cm) 28.2 WC - Nurse 2 - General Ulcer CM Notes Start: 04/05/23 14:32 Freq: Status: Active Protocol: Activity Type Activity Date Activity User E-sign Co-sign Detail Recorded Client Recorded Date Recorded By Document 04/05/23 16:28 PL [id number] 04/05/23 16:30 PL 04/05/23 16:28 Wound Center Nurse 2 #17- 1ST/2ND INTERDIGITAL SPACE L FOOT -Procedure Performed No -Wound/Ulcer Outcome Healed- Epithelialized #16- L LAT FOOT CLUSTER -Time 14:55 -Correct Patient Yes -Correct Side, Site, Position Yes -Correct Procedure Yes -Procedure Performed Yes -Type of Procedure Debridement -Clinical Debridement Subcutaneous -Tissue Removed Subcutaneous -Post Debridement (cm) - Length 6.0 -Post Debridement (cm) - Width 1.5 -Post Debridement (cm) - Depth 0.1 -Total Square (Post) (cm) 9.00 -Area of Debridement (cm) - Length 6.0 -Area of Debridement (cm) - Width 1.5 -Total Square (Area) (cm) 9.00 -Tunneling No -Undermining/Tunneling No -Circular Undermining No -Wound/Ulcer Outcome Not Healed -Ulcer Cleansing Rinsed/ Irrigated with Saline -Foul Odor after Cleansing No -Bioengineered Tissue No -Bleeding Controlled with Pressure -Treatment Response Procedure Tolerated Well -Debridement - Subq, 1st 20sq cm No #15- L MED BEASLEY LE CLUSTER -Time 14:55 -Correct Patient Yes -Correct Side, Site, Position Yes -Correct Procedure Yes -Procedure Performed Yes -Type of Procedure Debridement -Clinical Debridement Subcutaneous -Tissue Removed Subcutaneous -Post Debridement (cm) - Length 11.5 -Post Debridement (cm) - Width 4.5 -Post Debridement (cm) - Depth 0.1 -Total Square (Post) (cm) 51.75 -Area of Debridement (cm) - Length 11.5 -Area of Debridement (cm) - Width 4.5 -Total Square (Area) (cm) 51.75 -Tunneling No -Undermining/Tunneling No -Circular Undermining No -Wound/Ulcer Outcome Not Healed -Ulcer Cleansing Rinsed/ Irrigated with Saline -Foul Odor after Cleansing No -Bioengineered Tissue No -Bleeding Controlled with Pressure -Treatment Response Procedure Tolerated Well -Debridement - Subq, 1st 20sq cm Yes -Debridement, SubQ, ea addt'l 20sq cm 4 or part thereof Pain Scale: 0-10 Numeric Is Patient Pain Free? Yes WC - Nurse 3 - General Ulcer D/C NN Start: 04/05/23 14:32 Freq: Status: Active Protocol: Activity Type Activity Date Activity User E-sign Co-sign Detail Recorded Client Recorded Date Recorded By Document 04/05/23 15:24 [facility] Desktop 04/05/23 15:27 [facility] 04/05/23 15:24 Wound Care Center Nurse 3 #17- 1ST/2ND INTERDIGITAL SPACE L FOOT -Ulcer Cleansing Rinsed/ Irrigated with Saline -Foul Odor after Cleansing No -Primary Dressing Applied Fibracol Plus 4x4 -Other Dressing DRSG PER KW OPERATIONS ADMINISTRATIVE ASSISTANT -Primary Dressing Covered/Secured with Dry Gauze & Roll Gauze, Secured with Tape -Other Covering ABD -Fibracol Plus 4x4 1 #16- L LAT FOOT CLUSTER -Ulcer Cleansing Rinsed/ Irrigated with Saline -Foul Odor after Cleansing No -Primary Dressing Applied NonAdherent Contact Layer -Other Dressing DRSG PER KW OPERATIONS ADMINISTRATIVE ASSISTANT -Primary Dressing Covered/Secured with Dry Gauze & Roll Gauze, Secured with Tape #15- L MED BEASLEY LE CLUSTER -Ulcer Cleansing Rinsed/ Irrigated with Saline -Foul Odor after Cleansing No -Primary Dressing Applied Fibracol Plus 4x4 -Other Dressing DRSG PER KW OPERATIONS ADMINISTRATIVE ASSISTANT -Primary Dressing Covered/Secured with Dry Gauze & Roll Gauze, Secured with Tape -Fibracol Plus 4x4 0 BLE -Multi-Layered Wrap Application Multi-Layer Comp - Bilat ($ ) -Other APPLIED PER KW OPERATIONS ADMINISTRATIVE ASSISTANT Treatment Response Procedure Tolerated Well Pain Scale: 0-10 Numeric Is Patient Pain Free? Yes WC - Visit Discharge Discharge Condition Stable Ambulatory Status Ambulatory,Cane Transportation Private [facility] Additional Wound Wound debrided: Left lateral foot Laterality: Left Type of Debridement: Excisional debridement Anesthesia Used: 4% Lidocaine Solution Depth: Down to and including healthy tissue Percentage of wound debrided: 100 Instrument Used: 5mm curette Tissue Removed: slough, devitalized tissue Severity: Limited To Skin Breakdown Bleeding Controlled with: Pressure Patient tolerated procedure: Patient tolerated procedure well Additional Wound Wound debrided: left dorsal foot Laterality: Left Type of Debridement: Excisional debridement Anesthesia Used: 4% Lidocaine Solution Depth: Down to and including healthy tissue Percentage of wound debrided: 100 Instrument Used: 5mm curette Tissue Removed: slough, devitalized tissue Severity: Limited To Skin Breakdown Amount of bleeding with debridement: Mild Bleeding Controlled with: Pressure Patient tolerated procedure: Patient tolerated procedure well Assessment/Plan Assessment/Plan (1) Ulcer of left medial lower extremity: CODE(S): L97.829 - Non-pressure chronic ulcer of other part of left lower leg with unspecified severity (2) Ulcer of left foot: CODE(S): L97.529 - Non-pressure chronic ulcer of other part of left foot with unspecified severity (3) Skin ulcer of left foot including toes: CODE(S): L97.529 - Non-pressure chronic ulcer of other part of left foot with unspecified severity PLAN: Plan For any left lateral foot wound, will apply Adaptic to retained more moisture in this area. Otherwise we will apply Fibracol to all open areas. He is instructed to keep these dressings clean and dry at all times. Patient did well with 3M wraps this week, will continue these for compression. Will continue to apply superabsorber between the layers for moisture management. No apparent signs or symptoms of infection on exam today. He is encouraged to continue to elevate his legs at all times of rest, ideally at or above the level of the heart. Avoid prolonged idle sitting or standing. Regular walking regimen is encouraged. He is strongly advised to stop smoking and vaping to both support current wound healing and for his overall health. He will return early next week for wrap changes and return to see me on afternoon.
[2023-04-12 13:24] VITALS: BP 142/73; PULSE 93; RESP 20; TEMP 36.1
--- NOTE | 2023-04-13 08:33 | PCM.WC.PN ---
History of Present Illness Date of Service: 04/12/23 Chief Complaint: Left dorsal foot ulcers, left lower leg ulcers History of Wound: Mr. Tony Boggs is a 63-year-old male who presents to the wound center today from his assisted living facility with a chief complaint of left lower leg and foot ulcerations. He as in ulcer on his left beasley, left lateral foot, and left dorsal foot extending into the interdigital spaces. He reports the ulcer between his toes started first and this was about 4 to 6 weeks ago. The other ulcers have probably been present for about 3 weeks. He tried to take care of these himself with Neosporin but they continued to worsen. He denies any recent antibiotic treatment. He denies nausea, vomiting, fevers, chills, worsening or purulent drainage, extending redness up his leg, new or worsening pain in his left leg. He does have significant bilateral lower extremity edema, left worse than right. He has not been wearing any compression. He does admit that he also has not been elevating his legs when resting. He does both smoke cigarettes and vape, and he is not interested in quitting. He is not diabetic. He does have a history of prior similar ulcerations to his lower extremities and has been seen here at the wound healing center multiple times in the past. Subjective Subjective He has continued to do well with the 3M wraps, his edema has been much improved. He denies any new/worsening pain, redness, swelling in his lower extremities. The wounds continued to improve in size and appearance. He does have stable tenderness over the lateral foot wound. He denies any draining through the dressings. He said he did a good job keeping them clean and dry this week. He denies nausea, vomiting, fevers, chills. Objective Data Objective Data Vital Signs: Vital Signs Temp Pulse Resp BP O2 Del Method 96.9 F L 93 20 H 142/73 H Room Air 04/12/23 13:24 04/12/23 13:24 04/12/23 13:24 04/12/23 13:24 04/12/23 13:24 Oxygen Delivery Method Room Air Weight: 200 lb Charges/Coding Procedures Integumentary [id number]: [id number] Charlee subq tissue 20 sq cm/< (total area of debridement was 45.51 sqcm) Physical Exam Const alert, oriented x3, no apparent distress and average body habitus General Appearance: cooperative HEENT normocephalic, head/scalp atraumatic, hearing grossly normal bilaterally, external ears normal and external nose normal Eyes EOMs intact bilaterally General Eye: normal appearance of both eyes Neck General: normal visual inspection and trachea midline Resp normal respiratory effort, no retractions and no use of accessory muscles Effort and Inspection: able to speak in complete sentences; Negative for labored, grunting, stridor or audible wheezes Cardio regular rate and regular rhythm Extremity Extremity Narrative: left DP and PT pulses with multiphasic signals on Doppler Significant improvement in his bilateral lower extremity edema. Skin Wounds: wounds noted Wound Narrative: Large superficial ulceration to the left beasley with significant improvement in appearance without significant maceration. Still with a moderate amount of slough. Able to remove much more of the dried, adherent drainage today. Ulceration to the left lateral foot also with larger size by measure but was able to remove a lot more of the adherent, dried drainage so able to visualize more of the active wound bed. Ulceration to the dorsum of the left foot is significantly reduced in size and improved in appearance, much less macerated. No longer extends into the interdigital spaces, this portion has healed. No focal or extending erythema, no fluctuance, excessive warmth. Neuro oriented x3, CN's II-XII intact bilaterally and moves all extremities Psych mental status grossly normal Attitude: calm and engaged Activity / Motor Behavior: appropriate eye contact Speech: normal speech Mood & Affect: euthymic mood Debridement Note Debridement Note Wound debrided: left beasley cluster Laterality: Left Type of Debridement: Excisional debridement Anesthesia Used: 4% Lidocaine Solution Depth: Down to and including healthy tissue Percentage of wound debrided: 100 Instrument Used: 5mm curette Tissue Removed: slough, devitalized tissue Severity: Limited To Skin Breakdown Amount of bleeding with debridement: Mild Bleeding Controlled with: Pressure Patient tolerated procedure: Patient tolerated procedure well Post-Debridement Measurements and Additional Note: Post-Debridement Measurements/Treatment WC - Nurse 1 - General Ulcer Assessment Start: 04/05/23 14:32 Freq: Status: Active Protocol: RA.[email or web address] Activity Type Activity Date Activity User E-sign Co-sign Detail Recorded Client Recorded Date Recorded By Document 04/05/23 14:32 [facility] Desktop 04/05/23 14:50 [facility] Document 04/12/23 13:24 KW Desktop 04/12/23 13:41 KW 04/05/23 04/12/23 14:32 13:24 - Today's Visit Information Type of service Follow-up Visit Follow-up Visit (Physician/CHASER TAR (Physician/CHASER TAR ) ) Arrival Mode Ambulatory,Cane Ambulatory, Walker Transfer Assistance None Accompanied by MOM IN [facility] Patient Identification Verified (Name & Yes Yes ) Patient Requires Transmission-Based No Precautions Vital Signs Temperature (97.8 F-99.1 F) 97 F L 96.9 F L Temperature Source Temporal Temporal Pulse Rate (60-100) 85 93 Pulse Location Monitor Monitor Respiratory Rate (12-18) 16 20 H Respiratory rate source Observation Observation Oxygen Delivery Method Room Air Room Air Blood Pressure (90/60-120/80) 140/69 H 142/73 H Blood Pressure Mean (mm Hg) 92 96 Source Monitor Monitor Position Sitting Sitting Blood Pressure Location Left Arm Left Arm History Since Last Visit- (Skip if this is Patient's initial visit) Have you changed medications since your No No last visit? Any new allergies or adverse reactions No No Had a fall/change in ADL's that may No No increase risk of falls Signs or symptoms of abuse and/or No No neglect since last visit Have you been in the hospital since your No No last visit? Has dressing in place as prescribed Yes Yes Has compression in place as prescribed Yes Yes Has offloadiing in place as prescribed N/A N/A Experienced any changes in pain level or No No management Left Footwear Regular Shoe Right Footwear Regular Shoe Pain Scale: 0-10 Numeric Is Patient Pain Free? Yes Yes - Nurse 1 - General Ulcer Measurement Start: 04/05/23 14:32 Freq: Status: Active Protocol: Activity Type Activity Date Activity User E-sign Co-sign Detail Recorded Client Recorded Date Recorded By Document 04/05/23 14:32 [facility] Desktop 04/05/23 14:50 [facility] Document 04/12/23 13:24 KW Desktop 04/12/23 13:41 KW 04/05/23 04/12/23 14:32 13:24 Wound Center Nurse 1 #17- 1ST/2ND INTERDIGITAL SPACE L FOOT -Combined with other wound No -Current Size (cm) - Length 0.1 -Current Size (cm) - Width 0.1 -Current Size (cm) - Depth 0.1 -Total Square Cm 0.01 -Epithelialization Large 67-100% -Exudate Amt None Present -Texture (Brandi-wound Skin Appearance) Assessed -Moisture (Brandi-wound Skin Appearance) Assessed,Dry/ Scaly -Color (Brandi-wound Skin Appearance) Assessed -Temperature (Brandi-wound Skin No Abnormality Appearance) (Pt Warm) -Tenderness on Palpation (Brandi-wound No Skin Appearance) -Ulcer Cleansing Soap and Water -Foul Odor after Cleansing No -Anesthetic Used 5% Lidocaine Gel #16- L LAT FOOT CLUSTER -Combined with other wound No -Current Size (cm) - Length 0.1 0.1 -Current Size (cm) - Width 0.1 0.1 -Current Size (cm) - Depth 0.1 0.1 -Total Square Cm 0.01 0.01 -Epithelialization Large 67-100% -Tunneling No -Undermining/Tunneling No -Circular Undermining No -Exudate Amt None Present -Texture (Brandi-wound Skin Appearance) Assessed,Callus -Moisture (Brandi-wound Skin Appearance) Assessed,Dry/ Dry/Scaly Scaly -Color (Brandi-wound Skin Appearance) Assessed -Temperature (Brandi-wound Skin No Abnormality Appearance) (Pt Warm) -Tenderness on Palpation (Brandi-wound No Skin Appearance) -Ulcer Cleansing Soap and Water Soap and Water -Foul Odor after Cleansing No -Anesthetic Used 5% Lidocaine 4% Lidocaine Gel Solution -Wound Comment(s) CLUSTER OF [place] #15- L MED BEASLEY LE CLUSTER -Combined with other wound No -Current Size (cm) - Length 11.5 0.1 -Current Size (cm) - Width 4.6 0.1 -Current Size (cm) - Depth 0.1 0.1 -Total Square Cm 52.90 0.01 -Epithelialization Small 1-33% -Tunneling No -Undermining/Tunneling No -Circular Undermining No -Exudate Amt Medium -Exudate Type Serosanguineous -Wound Margin Distinct, Outline Attached -Granulation Amt Medium (34-66%) Large (67-100%) -Granulation Quality [place] -Slough/Fibrin Yes -Necrosis Amt Medium (34-66%) -Necrotic Tissue Type Adherent Slough -Texture (Brandi-wound Skin Appearance) Assessed, Scarring -Moisture (Brandi-wound Skin Appearance) Assessed,Dry/ Maceration,Dry/ Scaly Scaly -Color (Brandi-wound Skin Appearance) Assessed -Temperature (Brandi-wound Skin No Abnormality Appearance) (Pt Warm) -Tenderness on Palpation (Brandi-wound No Skin Appearance) -Ulcer Cleansing Soap and Water Soap and Water -Foul Odor after Cleansing No -Anesthetic Used 4% Lidocaine 4% Lidocaine Solution Solution Lower Limb Edema Present Yes Right Calf (cm) 37.6 38.6 Right Ankle (cm) 25.4 25.7 Left Calf (cm) 38.5 38.2 Left Ankle (cm) 28.2 28.0 WC - Nurse 2 - General Ulcer CM Notes Start: 04/05/23 14:32 Freq: Status: Active Protocol: Activity Type Activity Date Activity User E-sign Co-sign Detail Recorded Client Recorded Date Recorded By Document 04/05/23 16:28 PL [id number] 04/05/23 16:30 PL Document 04/12/23 16:00 PL [id number] 04/12/23 16:06 PL 04/05/23 04/12/23 16:28 16:00 Wound Center Nurse 2 #17- 1ST/2ND INTERDIGITAL SPACE L FOOT -Procedure Performed No -Wound/Ulcer Outcome Healed- Epithelialized #16- L LAT FOOT CLUSTER -Time 14:55 13:49 -Correct Patient Yes Yes -Correct Side, Site, Position Yes Yes -Correct Procedure Yes Yes -Procedure Performed Yes Yes -Type of Procedure Debridement Debridement -Clinical Debridement Subcutaneous Subcutaneous -Tissue Removed Subcutaneous Subcutaneous -Post Debridement (cm) - Length 6.0 2.4 -Post Debridement (cm) - Width 1.5 9.7 -Post Debridement (cm) - Depth 0.1 0.2 -Total Square (Post) (cm) 9.00 23.28 -Area of Debridement (cm) - Length 6.0 2.4 -Area of Debridement (cm) - Width 1.5 9.7 -Total Square (Area) (cm) 9.00 23.28 -Tunneling No No -Undermining/Tunneling No No -Circular Undermining No No -Wound/Ulcer Outcome Not Healed Not Healed -Ulcer Cleansing Rinsed/ Rinsed/ Irrigated with Irrigated with Saline Saline -Foul Odor after Cleansing No No -Bioengineered Tissue No No -Bleeding Controlled with Pressure Pressure -Treatment Response Procedure Procedure Tolerated Well Tolerated Well -Debridement - Subq, 1st 20sq cm No No #15- L MED BEASLEY LE CLUSTER -Time 14:55 13:49 -Correct Patient Yes Yes -Correct Side, Site, Position Yes Yes -Correct Procedure Yes Yes -Procedure Performed Yes Yes -Type of Procedure Debridement Debridement -Clinical Debridement Subcutaneous Subcutaneous -Tissue Removed Subcutaneous Subcutaneous -Post Debridement (cm) - Length 11.5 5.7 -Post Debridement (cm) - Width 4.5 3.9 -Post Debridement (cm) - Depth 0.1 0.1 -Total Square (Post) (cm) 51.75 22.23 -Area of Debridement (cm) - Length 11.5 5.7 -Area of Debridement (cm) - Width 4.5 3.9 -Total Square (Area) (cm) 51.75 22.23 -Tunneling No No -Undermining/Tunneling No No -Circular Undermining No No -Wound/Ulcer Outcome Not Healed Not Healed -Ulcer Cleansing Rinsed/ Rinsed/ Irrigated with Irrigated with Saline Saline -Foul Odor after Cleansing No No -Bioengineered Tissue No No -Bleeding Controlled with Pressure Pressure -Treatment Response Procedure Procedure Tolerated Well Tolerated Well -Debridement - Subq, 1st 20sq cm Yes Yes -Debridement, SubQ, ea addt'l 20sq cm 4 2 or part thereof Pain Scale: 0-10 Numeric Is Patient Pain Free? Yes Yes - Nurse 3 - General Ulcer D/C NN Start: 04/05/23 14:32 Freq: Status: Active Protocol: Activity Type Activity Date Activity User E-sign Co-sign Detail Recorded Client Recorded Date Recorded By Document 04/05/23 15:24 [facility] Desktop 04/05/23 15:27 [facility] Document 04/12/23 14:13 KW Desktop 04/12/23 14:14 KW 04/05/23 04/12/23 15:24 14:13 Wound Care Center Nurse 3 #17- 1ST/2ND INTERDIGITAL SPACE L FOOT -Ulcer Cleansing Rinsed/ Irrigated with Saline -Foul Odor after Cleansing No -Primary Dressing Applied Fibracol Plus 4x4 -Other Dressing DRSG PER KW SENIOR UNIX ADMINISTRATOR -Primary Dressing Covered/Secured with Dry Gauze & Roll Gauze, Secured with Tape -Other Covering ABD -Fibracol Plus 4x4 1 #16- L LAT FOOT CLUSTER -Ulcer Cleansing Rinsed/ Irrigated with Saline -Foul Odor after Cleansing No -Primary Dressing Applied NonAdherent NonAdherent Contact Layer Contact Layer -Other Dressing DRSG PER KW SENIOR UNIX ADMINISTRATOR -Primary Dressing Covered/Secured with Dry Gauze & Dry Gauze & Roll Gauze, Roll Gauze, Secured with Secured with Tape Tape #15- L MED BEASLEY LE CLUSTER -Ulcer Cleansing Rinsed/ Irrigated with Saline -Foul Odor after Cleansing No -Primary Dressing Applied Fibracol Plus 4x4 -Other Dressing DRSG PER KW SENIOR UNIX ADMINISTRATOR -Primary Dressing Covered/Secured with Dry Gauze & Dry Gauze & Roll Gauze, Roll Gauze, Secured with Secured with Tape Tape -Fibracol Plus 4x4 0 BLE -Multi-Layered Wrap Application Multi-Layer Multi-Layer Comp - Bilat ($ Comp - Bilat ($ ) ) -Other APPLIED PER KW SENIOR UNIX ADMINISTRATOR Treatment Response Procedure Tolerated Well Pain Scale: 0-10 Numeric Is Patient Pain Free? Yes Yes WC - Visit Discharge Discharge Condition Stable Stable Ambulatory Status Ambulatory,Cane Ambulatory Transportation Private Auto Private Auto Medication Reconcilliation completed & No provided to patient/care provider Clinical Summary of Care Provided Yes [facility] Additional Wound Wound debrided: Left lateral foot Laterality: Left Type of Debridement: Excisional debridement Anesthesia Used: 4% Lidocaine Solution Depth: Down to and including healthy tissue Percentage of wound debrided: 100 Instrument Used: 5mm curette Tissue Removed: slough, devitalized tissue Severity: Limited To Skin Breakdown Bleeding Controlled with: Pressure Patient tolerated procedure: Patient tolerated procedure well Additional Wound Wound debrided: left dorsal foot Laterality: Left Type of Debridement: Excisional debridement Anesthesia Used: 4% Lidocaine Solution Depth: Down to and including healthy tissue Percentage of wound debrided: 100 Instrument Used: 5mm curette Tissue Removed: slough, devitalized tissue Severity: Limited To Skin Breakdown Amount of bleeding with debridement: Mild Bleeding Controlled with: Pressure Patient tolerated procedure: Patient tolerated procedure well Assessment/Plan Assessment/Plan (1) Ulcer of left medial lower extremity: CODE(S): L97.829 - Non-pressure chronic ulcer of other part of left lower leg with unspecified severity (2) Ulcer of left foot: CODE(S): L97.529 - Non-pressure chronic ulcer of other part of left foot with unspecified severity (3) Skin ulcer of left foot including toes: CODE(S): L97.529 - Non-pressure chronic ulcer of other part of left foot with unspecified severity PLAN: Plan Will apply Fibracol to all open areas, cover with adaptic on L lateral foot. He is instructed to keep these dressings clean and dry at all times. Patient did well with 3M wraps this week, will continue these for compression. No apparent signs or symptoms of infection on exam today. He is encouraged to continue to elevate his legs at all times of rest, ideally at or above the level of the heart. Avoid prolonged idle sitting or standing. Regular walking regimen is encouraged. He is strongly advised to stop smoking and vaping to both support current wound healing and for his overall health. He will return early next week for wrap changes and return to see me on afternoon.
[2023-04-19 13:26] VITALS: BP 144/70; PULSE 74; RESP 16
--- NOTE | 2023-04-20 08:03 | PCM.WC.PN ---
History of Present Illness Date of Service: 04/19/23 Chief Complaint: Left dorsal foot ulcers, left lower leg ulcers History of Wound: Mr. Tony Boggs is a 63-year-old male who presents to the wound center today from his assisted living facility with a chief complaint of left lower leg and foot ulcerations. He as in ulcer on his left beasley, left lateral foot, and left dorsal foot extending into the interdigital spaces. He reports the ulcer between his toes started first and this was about 4 to 6 weeks ago. The other ulcers have probably been present for about 3 weeks. He tried to take care of these himself with Neosporin but they continued to worsen. He denies any recent antibiotic treatment. He denies nausea, vomiting, fevers, chills, worsening or purulent drainage, extending redness up his leg, new or worsening pain in his left leg. He does have significant bilateral lower extremity edema, left worse than right. He has not been wearing any compression. He does admit that he also has not been elevating his legs when resting. He does both smoke cigarettes and vape, and he is not interested in quitting. He is not diabetic. He does have a history of prior similar ulcerations to his lower extremities and has been seen here at the wound healing center multiple times in the past. Subjective Subjective Patient reports he is continue to do very well with the 3M wraps. He has minimal discomfort in his lower extremities. He is also taking good care to ensure he is elevating his legs when resting and even when sleeping at night. Objective Data Objective Data Vital Signs: Vital Signs Temp Pulse Resp BP O2 Del Method 96.9 F L 74 16 144/70 H Room Air 04/12/23 13:24 04/19/23 13:26 04/19/23 13:26 04/19/23 13:26 04/19/23 13:26 Oxygen Delivery Method Room Air Weight: 200 lb Charges/Coding Visit Charges Office Visits / Consults: 95422 OV L3 Est 20min Physical Exam Const alert, oriented x3, no apparent distress and average body habitus General Appearance: cooperative HEENT normocephalic, head/scalp atraumatic, hearing grossly normal bilaterally, external ears normal and external nose normal Eyes EOMs intact bilaterally General Eye: normal appearance of both eyes Neck General: normal visual inspection and trachea midline Resp normal respiratory effort, no retractions and no use of accessory muscles Effort and Inspection: able to speak in complete sentences; Negative for labored, grunting, stridor or audible wheezes Cardio regular rate and regular rhythm Extremity Extremity Narrative: left DP and PT pulses with multiphasic signals on Doppler Significant improvement in his bilateral lower extremity edema. Skin Wounds: wounds noted Wound Narrative: The large ulceration to his left beasley has fully epithelialized. The ulceration on the dorsum of his foot and his toes has fully epithelialized. The ulceration of his left lateral foot/ankle has nearly fully epithelialized, there is a very superficial open area that is the size of an eraser head remaining. Neuro oriented x3, CN's II-XII intact bilaterally and moves all extremities Psych mental status grossly normal Attitude: calm and engaged Activity / Motor Behavior: appropriate eye contact Speech: normal speech Mood & Affect: euthymic mood Debridement Note Debridement Note No debridement was completed: No debridement was completed today Assessment/Plan Assessment/Plan (1) Ulcer of left medial lower extremity: CODE(S): L97.829 - Non-pressure chronic ulcer of other part of left lower leg with unspecified severity (2) Ulcer of left foot: CODE(S): L97.529 - Non-pressure chronic ulcer of other part of left foot with unspecified severity (3) Skin ulcer of left foot including toes: CODE(S): L97.529 - Non-pressure chronic ulcer of other part of left foot with unspecified severity PLAN: Plan Will apply Fibracol to the very small and very superficial open area on the left lateral foot. Will apply lotion everywhere else. Today will provide him with Tubigrip's for compression. He is encouraged to utilize the Tubigrip's over the next 1 to 2 weeks and then may transition back to his diabetic support hose which are the only compression stockings he is able to put on and take off on his own consistently. He may remove the dressing on his lateral foot in 2 days as long as remains clean and dry. Anticipate this for small remaining area will be healed at that time. He is encouraged to continue to elevate his legs at all times of rest, ideally at or above the level of the heart. Avoid prolonged idle sitting or standing. Regular walking regimen is encouraged. He is strongly advised to stop smoking and vaping to both support current wound healing and for his overall health. He is encouraged to seek early evaluation should he notice recurrent development of wounds. Emphasized the importance of continued compression and preventing wound recurrence. He acknowledged understanding. He is discharged from the wound healing center today and will return as needed.
== END 2023-04-20 07:52 | disposition home or self-care (01) ==
LOC: WC 13:30
PROVIDERS: PCP Nurse Practitioner Adult Health; Referring Provider Nurse Practitioner Adult Health; Visit Provider Physician Assistant
DX: L97.521 Non-pressure chronic ulcer of other part of left foot limited to breakdown of skin (principal); L97.821 Non-pressure chronic ulcer of other part of left lower leg limited to breakdown of skin; R60.0 Localized edema; F17.210 Nicotine dependence, cigarettes, uncomplicated; F17.290 Nicotine dependence, other tobacco product, uncomplicated; Z79.899 Other long term (current) drug therapy
CPT/HCPCS: 11042; 11045; 29581; 99213; G0463

== ENCOUNTER 2023-07-18 13:47 | Outpatient (RCR) | payer MEDICARE, MEDICAID, SELFPAY ==
[2023-07-18 13:56] VITALS: BP 133/67; PULSE 88; RESP 18; TEMP 36.6; BMI 31.0
--- NOTE | 2023-07-18 14:32 | PCM.WC.HP ---
History of Present Illness Date of Service: 07/18/23 Chief Complaint: Left dorsal foot ulcers, left lower leg ulcers History of Wound: Mr. Tony Boggs is a 63-year-old male who presents to the wound center today from his assisted living facility with a chief complaint of left lower leg and foot ulcerations. Patient was treated with saline moist gauze and Kerlix wrap. He states that his drainage has improved. He denies any further ulceration as they have now healed. He continues to smoke. He does have significant bilateral lower extremity edema. He is not wearing any compression. But he does rest and elevate his bilateral lower extremity. He is not diabetic. This is a history of similar/chronic ulcerations to the lower extremities that he has been at the wound care center multiple times in the past. [facility] Medical History (Updated 07/18/23 @ 14:[address] Laci Gomez, DPEdu) Aspiration pneumonia Hypoxemia GERD (gastroesophageal reflux disease) Sepsis Tobacco abuse Schizophrenia COPD exacerbation Bipolar disorder Home Medications ?Medication ?Instructions ?Recorded ?Last Taken ?Type benztropine 2 mg tablet 1 mg PO QHS 02/18/15 Unknown History lithium carbonate 300 mg 600 mg PO QHS 02/18/15 Unknown History tablet,extended release olanzapine 10 mg tablet 10 mg PO DAILY 02/18/15 Unknown History omeprazole 20 mg capsule,delayed 20 mg PO BID 02/18/15 Unknown History release spironolactone 25 mg tablet 25 mg PO DAILY 02/18/15 Unknown History fluphenazine decanoate 25 mg/mL 25 mg IJ .[id number] PARANOID 07/29/16 Unknown History injection solution SCHIZOPHRENIA multivitamin,[id number] 27 1 tab PO DAILYCM 08/01/16 Unknown Rx mg-0.4 mg tablet acetaminophen 500 mg tablet 1,000 mg PO TID PRN Pain 05/02/18 Unknown History (Pharbetol) albuterol sulfate 90 mcg/actuation 2 puff inhalation Q4H PRN PRN Sob 05/02/18 Unknown History aerosol inhaler (Ventolin HFA) &/Or Wheezing docusate sodium 100 mg capsule 100 mg PO BID PRN Constipation 05/02/18 Unknown History (DOK) fluticasone propionate 50 1 spray DAILY PRN Allergies 05/02/18 Unknown History mcg/actuation nasal spray,suspension montelukast 10 mg tablet 10 mg PO DAILY 05/02/18 Unknown History olanzapine 20 mg tablet (Zyprexa) 20 mg PO QHS 05/02/18 Unknown History omega-3 fatty acids-fish oil 300 2 capsule PO BID 05/02/18 Unknown History mg-1,000 mg capsule simvastatin 20 mg tablet (Zocor) 20 mg PO QHS 05/02/18 Unknown History cholecalciferol (vitamin D3) 50 2,000 unit PO DAILY 12/24/18 Unknown History mcg (2,000 unit) capsule amlodipine 5 mg tablet 5 mg PO DAILY 03/22/23 Unknown History buspirone 10 mg tablet 10 mg PO TID 03/22/23 Unknown History sodium chloride 0.65 % nasal spray 1 spray intranasal TID PRN dry 03/22/23 Unknown History aerosol (Deep Sea Nasal) nasal passages tamsulosin 0.4 mg capsule (Flomax) 0.4 mg PO QHS 03/22/23 Unknown History Allergy/AdvReac Type Severity Reaction Status Date / Time codeine AdvReac Upset Verified 03/22/23 13:44 Stomach haloperidol (From Haldol) AdvReac Abd Verified 03/22/23 13:44 cramps/diarrhea haloperidol lactate (From AdvReac Abd Verified 03/22/23 13:44 Haldol) cramps/diarrhea ziprasidone AdvReac Unknown Verified 03/22/23 13:45 Family History Mother Diabetes Surgical History S/P right knee arthroscopy S/P laparoscopic cholecystectomy History of esophagogastroduodenoscopy (EGD) S/P bilateral inguinal hernia repair Social History Smoking Status: Current every day smoker tobacco type: cigarettes Vital Signs Vital Signs Vital Signs: 07/18/23 13:56 Temperature 97.8 F Temperature Source Temporal Pulse Rate 88 Respiratory Rate 18 Blood Pressure 133/67 H Blood Pressure Mean 89 Blood Pressure Source Monitor Blood Pressure Position Sitting Blood Pressure Location Left Arm Oxygen Delivery Method Room Air Weight Weight: 95.254 kg Body Mass Index (BMI) 31.0 Physical Exam Narrative Vascular: DP and PT pulses are palpable bilateral. Skin temperature great is warm to warm from proximal ankle to distal digits bilateral. +1 pitting edema appreciated bilateral lower extremity. Evidence of cobblestone distribution to the bilateral lower extremity. Neurological: Light touch intact. Protective sensation is present. Dermatological: Multiple segments across which are stable with no sign of infection to the bilateral lower extremity. Cobblestone distribution appreciated to the leg secondary to lymphedema. Diffuse xerosis bilateral. Ulcerations 1 through 4 are grossly intact. Toenails 1 through 5 are thickened elongated discolored with evidence of supple debris's. Muscle skeletal: Muscle strength is 5/5 in all quadrants bilateral. No pain on palpation to bilateral lower extremity. Mild pain to palpation to toenails 1 through 5 bilateral. No pain with calf pression. Debridement Note Debridement Note Post-Debridement Measurements and Additional Note: Post-Debridement Measurements/Treatment - Nurse 1 - General Ulcer Assessment Start: 07/18/23 13:56 Freq: Status: Active Protocol: .LOWEXT Activity Type Activity Date Activity User E-sign Co-sign Detail Recorded Client Recorded Date Recorded By Document 07/18/23 13:56 [id number] 07/18/23 14:04 07/18/23 13:56 - Today's Visit Information Type of service Initial Visit Arrival Mode Ambulatory, Walker Patient Identification Verified (Name & Yes ) Height and Weight Height 5 ft 9 in Weight 95.254 kg Weight in Pounds 210.0 lbs Body Mass Index (BMI) 31.0 BMI Classification Obese BSA - Sue 2.11 Vital Signs Temperature (97.8 F-99.1 F) 97.8 F Temperature Source Temporal Pulse Rate (60-100) 88 Pulse Location Monitor Respiratory Rate (12-18) 18 Respiratory rate source Observation Oxygen Delivery Method Room Air Blood Pressure (90/60-120/80) 133/67 H Blood Pressure Mean 89 Source Monitor Position Sitting Blood Pressure Location Left Arm History Since Last Visit- (Skip if this is Patient's initial visit) Left Footwear Regular Shoe Right Footwear Regular Shoe Pain Scale: 0-10 Numeric Is Patient Pain Free? Yes Communication Assessment Preferred language Gu[place]ian Buttonhole Maker Required No Able to Read Yes Able to Write Yes Communication Tools None Caregiver Communication Skills No Impairment Impairment Right Hearing Abillity Normal Left Hearing Abillity Normal Visual Assistive Devices Glasses Teaching Assessment Preferences Verbal,Written, Demonstration Barriers to Learning None Readiness To Learn Excellent Willingness to Engage in Self Management High Activies Readiness to Engage in Self Management High Activities Anxiety Level Calm Cooperation Cooperative Perception Coherent Interest in Health Problem Asks Questions Education Importance Acknowledges Need Does Patient Smoke tobacco or other Yes substances Smoking Status Current every day smoker Is Patient Diabetic No Functional Assessment Recent Decline in Ability to Perform 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 Sheet Metal Pattern Cutter to contact place of nondenominational No WC - Nurse 1 - General Ulcer Measurement Start: 07/18/23 13:56 Freq: Status: Active Protocol: Activity Type Activity Date Activity User E-sign Co-sign Detail Recorded Client Recorded Date Recorded By Document 07/18/23 13:56 [id number] 07/18/23 14:04 07/18/23 13:56 Wound Center Nurse 1 Right Calf (cm) 43.5 Right Ankle (cm) 28 Left Calf (cm) 41.8 Left Ankle (cm) 29.5 - Nurse 3 - General Ulcer D/C NN Start: 07/18/23 13:56 Freq: Status: Active Protocol: Activity Type Activity Date Activity User E-sign Co-sign Detail Recorded Client Recorded Date Recorded By Document 07/18/23 14:29 [id number] 07/18/23 14:30 07/18/23 14:29 Pain Scale: 0-10 Numeric Is Patient Pain Free? Yes WC - Visit Discharge Discharge Condition Stable Ambulatory Status Ambulatory, Walker Transportation Private Auto Medication Reconcilliation completed & No provided to patient/care provider Clinical Summary of Care Provided Yes Assessment/Plan Assessment/Plan (1) Lymphedema: CODE(S): I89.0 - Lymphedema, not elsewhere classified PLAN: Patient was examined and evaluated. All findings were discussed with the patient. All questions were answered to the patient's satisfaction. The patient's bilateral lower extremities show no evidence of ulceration or now healed. Was educated the patient that he would benefit from a good shower to scrub his bilateral lower extremity and clean out his webspaces. Patient was understanding this. Long discussion with the patient regarding smoking sensation. Patient declined to comment and will not quit smoking. The patient will be given a prescription for ammonium lactate 12% to be placed on his legs and feet twice per day for 30 days with 3 refills. The patient's toenails bilaterally 1 through 5 were debrided down to and including normal limits with a sterile double-action nail nipper without incident. Patient expressed relief after nail debridement. Patient will follow-up at the wound care center with Dr. Gomez as needed. (2) Xerosis cutis: CODE(S): L85.3 - Xerosis cutis (3) Tinea unguium: CODE(S): B35.1 - Tinea unguium (4) Pain in left toe(s): CODE(S): M79.675 - Pain in left toe(s) (5) Pain in right toe(s): CODE(S): M79.674 - Pain in right toe(s)
== END 2023-08-03 23:59 | disposition home or self-care (01) ==
LOC: WC 13:47
PROVIDERS: PCP Nurse Practitioner Adult Health; Referring Provider Nurse Practitioner Adult Health; Visit Provider Podiatrist Foot & Ankle Surgery
DX: Z09 Encounter for follow-up examination after completed treatment for conditions other than malignant neoplasm (principal); F20.9 Schizophrenia, unspecified; F31.9 Bipolar disorder, unspecified; J44.9 Chronic obstructive pulmonary disease, unspecified; L85.3 Xerosis cutis; B35.1 Tinea unguium; M79.674 Pain in right toe(s); M79.675 Pain in left toe(s); I89.0 Lymphedema, not elsewhere classified; R60.0 Localized edema; K21.9 Gastro-esophageal reflux disease without esophagitis; F17.210 Nicotine dependence, cigarettes, uncomplicated; Z79.899 Other long term (current) drug therapy
CPT/HCPCS: 99212; G0463

== ENCOUNTER 2023-10-29 22:01 | Inpatient (IN) | payer MEDICARE, MEDICAID, SELFPAY ==
[2023-10-29 22:03] VITALS: BP 126/68; PULSE 89; RESP 20; TEMP 38.4; O2SAT 77; O2SAT 89; O2SAT 90; BMI 32.2
--- NOTE | 2023-10-29 22:47 | RAD_ITS ---
EXAM: XR CHEST, 1 VIEW CLINICAL INDICATION: cough TECHNIQUE: Frontal view of the chest. COMPARISON: May 02, 2018 FINDINGS: LUNGS AND PLEURAL SPACES: There is increased thick curvilinear opacity right lung base superior to the elevated right hemidiaphragm which may be atelectasis or infiltrate. The right heart margin and hemidiaphragm margins remain well seen. No pneumothorax. No effusion. HEART: Unremarkable. Cardiac silhouette not enlarged. MEDIASTINUM: Central airways and mediastinal contour are unremarkable. BONES/JOINTS: Unremarkable. No acute fracture. SOFT TISSUES: Unremarkable. RAD/Chest 1 View (Portable) IMPRESSION: Patchy new right basilar opacity. Atelectasis versus infiltrate. Electronically Signed: Macy Gonzalez MD at 23:53 EDT Reading Location ID and State: [facility] / [place] Tel , Service support ,
[2023-10-29 23:02] LABS: Absolute Lymphocyte Count 0.64 X10^3/uL (0.83-4.51); Absolute Neutrophil Count 4.6 X10^3/uL (2.0-7.7); Basophil# 0.03 X10^3/uL; Basophil% 0.5 % (0-1); Eosinophil# 0.15 X10^3/uL; Eosinophils% 2.5 % (0-5); Hematocrit 41.1 % (40-54); Hemoglobin 12.6 g/dL (13.0-16.5); Lymphocyte # 0.64 X10^3/ul (0.83-4.51); Lymphocyte % 10.6 % (19-41); Mean Corp Hgb Conc 30.7 g/dL (32-36); Mean Corpuscular Hgb 32.6 pg (27.0-32.0); Mean Corpuscular Volume 106.2 fL (80-94); Mean Platelet Vol. 10.2 fl (6.2-12.0); Monocyte# 0.57 X10^3/uL; Monocyte% 9.5 % (0-10); NRBC Flagged by Analyzer 0.5 % (0-5); Neutrophil # 4.61 X10^3/uL (2.7-7.7); Neutrophil % 76.4 % (47-70); Platelet Count 159 K/mm3 (150-450); RBC Distribution Width CV 16.1 % (11.6-14.6); RBC Distribution Width SD 62.4 fl (35.1-43.9); Red Blood Count 3.87 M/mm3 (4.6-6.2)
[2023-10-29 23:16] LABS: Lactic Acid 0.7 mmol/L (0.4-1.9)
[2023-10-29 23:20] LABS: Bacteria 0 SEEN /hpf (None Seen); Mucous, Urine 0 SEEN /hpf (<or=2+); Red Blood Cells-Urine 0 SEEN /hpf (0-5); Squamous Epithelial Cells - UA 0 SEEN /hpf (0-5); White Blood Cells 0 SEEN /hpf (0-5)
[2023-10-29 23:24] LABS: Color, Urine Yellow (Yellow); Glucose, Dipstick Normal (Normal); Ketone-Dipstick Negative (Negative); Leukocyte Esterase-Dipstick Negative /ul (Negative); Nitrite-Dipstick Negative (Negative); Occult Blood-Urine Negative /ul (Negative); Protein-Dipstick Negative (Negative); Specific Gravity, Urine 1.005 (1.002-1.030); Urine Bilirubin Dipstick Negative (Negative); Urine Clarity Clear (Clear); Urine Urobilinogen Normal (Normal)
[2023-10-29] MEDS: Acetaminophen 500 MG Tablet 1000 MG PO (23:26)
[2023-10-29 23:30] LABS: Alcohol, Blood (Medical)-Serum < 3.0 mg/dL
[2023-10-29 23:34] LABS: Anion Gap 1 (5-15); BUN 8 mg/dL (7-18); BUN/Creat Ratio 7.3 RATIO (10-20); Calcium,Total 8.6 mg/dL (8.5-10.1); Chloride 100 mmol/L (98-107); Creatinine, Serum 1.09 mg/dL (0.70-1.30); EST Glomerular Filtration Rate 73 mL/min (>60); Est Glom Filt Rate - Afr Amer 88 mL/min (>60); Estimated Creatinine Clearance 82.56 ml/min; Glucose 95 mg/dL (74-106); Potassium 4.5 mmol/L (3.5-5.1); Sodium Level 134 mmol/L (136-145)
[2023-10-29 23:42] VITALS: O2SAT 75
[2023-10-29 23:45] LABS: Amphetamine Urine VISTA NEGATIVE (<1000 ng/mL); Barbiturate Urine VISTA NEGATIVE (< 200 ng/mL); Benzodiazepine Urine VISTA NEGATIVE (< 200 ng/mL); Cocaine Urine VISTA NEGATIVE (< 300 ng/mL); Ecstacy Urine VISTA NEGATIVE (< 500 ng/mL); Methadone Urine VISTA NEGATIVE (< 300 ng/mL); PCP Urine VISTA NEGATIVE (< 25 ng/mL); THC Urine VISTA NEGATIVE (< 50 ng/mL); Vista UDS pH Range 6
--- NOTE | 2023-10-29 23:45 | ED.RN ---
This RN found patient out of bed after patient self-removed NC, monitoring equipment, and IV access. This RN assisted pt. back into bed and reapplied monitoring equipment and NC
[2023-10-29 23:48] VITALS: O2SAT 90
[2023-10-29 23:49] VITALS: O2SAT 91
[2023-10-29 23:51] VITALS: O2SAT 98
[2023-10-29 23:51] LABS: Procalcitonin 0.17 ng/mL (0.00-0.09)
[2023-10-29 23:52] VITALS: O2SAT 96
[2023-10-30] VITALS (27 sets, daily range): BP systolic 89–128; BP diastolic 49–84; PULSE 67–102; RESP 12–36; TEMP 36.1–37.2; O2SAT 80–100; BMI 32.3
--- NOTE | 2023-10-30 00:31 | PCM.HP.STD ---
[facility] - General General Date of Admission: 10/30/23 Date of Service: 10/30/23 Chief Complaint: Fever, SOB and Confusion. HPI Narrative FLORY ARIZA, is a 63 M with a past medical history of essential hypertension, hyperlipidemia, obesity; with BMI of 32.2 this admission, Paranoid Schizophrenia, Bipolar disorder; on [place], history of EtOH abuse, history of ongoing tobacco abuse; with subsequent COPD, PVD; with history of LE ulcers followed by the [facility]ound Clinic, chronic LE lymphedema; with chronic venous insufficiency and Xerosis Cutis, history of DVT LLE, history of LE cellulitis, history of aspiration pneumonia, history of sepsis, chronic malnutrition, history of hyponatremia, history of Right knee arthroscopy, history of laparoscopic cholecystectomy, history of bilateral inguinal hernia repair, BPH and GERD who presents to [facility] ER complaining of fever and SOB. Mr. Ariza resides at a local care facility and they noted he seemed to be confused so they activated EMS. The patient was a poor historian upon admission but his condition deteriorated in the ER and he is now on BiPAP with worsening confusion and an initial ABG that revealed pH 7.26/ PCO2 72.9/ PO2 75/ HCO3 32.8 @ 92% on 6L NC. The ER staff attempted to contact the staff at his ECF but no one was able to be reached to answer questions about this patient's baseline level of function and the clarity of his speech. In the ER his CXR revealed patchy RLL opacity consistent with Pneumonia; likely due to recurrent aspiration complicated by clinical evidence of AE COPD and acute hypoxic and hypercapnic respiratory failure requiring BiPAP compounded by an elevated d dimer of 1.36 present on admission (with CTA of the chest pending at this time) and he was then admitted to the PCU for ongoing care for a stay that is expected to extend beyond 2 midnights. [facility] Medical History (Updated 10/30/23 @ 01:[address] Marques Wise, DO) Aspiration pneumonia Hypoxemia GERD (gastroesophageal reflux disease) Sepsis Tobacco abuse Schizophrenia COPD exacerbation Bipolar disorder Home Medications ?Medication ?Instructions ?Recorded ?Last Taken ?Type benztropine 2 mg tablet 1 mg PO QHS 02/18/15 Unknown History lithium carbonate 300 mg 600 mg PO QHS 02/18/15 Unknown History tablet,extended release olanzapine 10 mg tablet 10 mg PO DAILY 02/18/15 Unknown History omeprazole 20 mg capsule,delayed 20 mg PO BID 02/18/15 Unknown History release spironolactone 25 mg tablet 25 mg PO DAILY 02/18/15 Unknown History fluphenazine decanoate 25 mg/mL 25 mg IJ .[id number] PARANOID 07/29/16 Unknown History injection solution SCHIZOPHRENIA multivitamin,ji-[id number]-[id number] 27 1 tab PO DAILYCM 08/01/16 Unknown Rx mg-0.4 mg tablet acetaminophen 500 mg tablet 1,000 mg PO TID PRN Pain 05/02/18 Unknown History (Pharbetol) albuterol sulfate 90 mcg/actuation 2 puff inhalation Q4H PRN PRN Sob 05/02/18 Unknown History aerosol inhaler (Ventolin HFA) &/Or Wheezing docusate sodium 100 mg capsule 100 mg PO BID PRN Constipation 05/02/18 Unknown History (DOK) fluticasone propionate 50 1 spray DAILY PRN Allergies 05/02/18 Unknown History mcg/actuation nasal spray,suspension montelukast 10 mg tablet 10 mg PO DAILY 05/02/18 Unknown History olanzapine 20 mg tablet (Zyprexa) 20 mg PO QHS 05/02/18 Unknown History omega-3 fatty acids-fish oil 300 2 capsule PO BID 05/02/18 Unknown History mg-1,000 mg capsule simvastatin 20 mg tablet (Zocor) 20 mg PO QHS 05/02/18 Unknown History cholecalciferol (vitamin D3) 50 2,000 unit PO DAILY 12/24/18 Unknown History mcg (2,000 unit) capsule amlodipine 5 mg tablet 5 mg PO DAILY 03/22/23 Unknown History buspirone 10 mg tablet 10 mg PO TID 03/22/23 Unknown History sodium chloride 0.65 % nasal spray 1 spray intranasal TID PRN dry 03/22/23 Unknown History aerosol (Deep Sea Nasal) nasal passages tamsulosin 0.4 mg capsule (Flomax) 0.4 mg PO QHS 03/22/23 Unknown History Allergy/AdvReac Type Severity Reaction Status Date / Time codeine AdvReac Upset Verified 10/29/23 22:03 Stomach haloperidol (From Haldol) AdvReac Abd Verified 10/29/23 22:03 cramps/diarrhea haloperidol lactate (From AdvReac Abd Verified 10/29/23 22:03 Haldol) cramps/diarrhea ziprasidone AdvReac Unknown Verified 10/29/23 22:03 Family History Mother Diabetes Surgical History S/P right knee arthroscopy S/P laparoscopic cholecystectomy History of esophagogastroduodenoscopy (EGD) S/P bilateral inguinal hernia repair Social History Smoking Status: Current every day smoker tobacco type: cigarettes ROS ROS Narrative This patient is confused on BiPAP and cannot complete a full ROS at this time. Vital Signs Vital Signs Vital Signs: 10/29/23 22:03 10/29/23 22:03 10/29/23 23:42 Temperature 101.1 F H Temperature Source Oral Pulse Rate 89 Respiratory Rate 20 H Blood Pressure 126/68 H Blood Pressure Mean 87 Pulse Ox 77 90 75 Oxygen Delivery Method Room Air Nasal Cannula Room Air Oxygen Flow Rate (L/min) 4 10/29/23 23:48 10/29/23 23:49 10/29/23 23:51 Temperature Temperature Source Pulse Rate Respiratory Rate Blood Pressure Blood Pressure Mean Pulse Ox 90 91 98 Oxygen Delivery Method Nasal Cannula Nasal Cannula Nasal Cannula Oxygen Flow Rate (L/min) 4 6 6 10/29/23 23:52 Temperature Temperature Source Pulse Rate Respiratory Rate Blood Pressure Blood Pressure Mean Pulse Ox 96 Oxygen Delivery Method Nasal Cannula Oxygen Flow Rate (L/min) 4 Weight Weight: 218 lb 4.122 oz Body Mass Index (BMI) 32.2 Physical Exam Const alert and no apparent distress Constitutional Narrative: Patient is obese, lethargic and appears chronically ill. General Appearance: cooperative Orientation / Consciousness: disoriented HEENT normocephalic, head/scalp atraumatic and hearing grossly normal bilaterally Eyes PERRL and EOMs intact bilaterally Neck no lymphadenopathy and supple Resp Resp Narrative: Diminished breath sounds throughout with scattered wheezes and rhonci. Auscultation: rhonchi and wheezes Cardio regular rate and regular rhythm GI normal to inspection, nondistended, normoactive bowel sounds, soft to palpation, non-tender and non-distended Extremity Extremity Narrative: 1+ bilateral LE edema with cobblestoning and evidence of chronic venous stasis changes. Skin Skin Narrative: 1+ bilateral LE edema with cobblestoning and evidence of chronic venous stasis changes. Neuro CN's II-XII intact bilaterally, moves all extremities and no focal motor deficits Neuro Narrative: Patient is lethargic and confused on BiPAP. Sensorium / Orientation: awake, alert and oriented to person Speech: speech normal Psych Psych Narrative: Patient is lethargic and confused on BiPAP. Results Medical Records Data Attestation: I reviewed the patient's medical records Lab / Micro Data Attestation: I reviewed the patient's lab results. 10/30/23 02:37 10/30/23 02:37 Labs: Laboratory Results - last 24 hr 10/29/23 22:15: WBC 6.0, RBC 3.87 L, Hgb 12.6 L, Hct 41.1, MCV 106.2 H, MCH 32.6 H, MCHC 30.7 L, RDW Std Deviation 62.4 H, RDW Coeff of Bab[place]unde 16.1 H, Plt Count 159, MPV 10.2, Immature Gran % (Auto) 0.500, Neut % (Auto) 76.4 H, Lymph % (Auto) 10.6 L, [place] % (Auto) 9.5, Eos % (Auto) 2.5, Baso % (Auto) 0.5, Absolute Neuts (auto) 4.6, Absolute Lymphs (auto) 0.64 L, Nucleated RBC % 0.5, Sodium 134 L, Potassium 4.5, Chloride 100, Carbon Dioxide 33.0 H, Anion Gap 1 L, BUN 8, Creatinine 1.09, Estim Creat Clear Calc 82.56, Est GFR (MDRD) Af Amer 88, Est GFR (MDRD) Non-Af 73, BUN/Creatinine Ratio 7.3 L, Glucose 95, Lactic Acid 0.7, Calcium 8.6, B-Natriuretic Peptide 89.0, Procalcitonin 0.17 H, TSH 1.410, [place] 1.20, Ethyl Alcohol < 3.0 10/29/23 23:15: Urine Color Yellow, Urine Clarity Clear, Urine pH 7.0, Ur Specific [place] 1.005, Urine Protein Negative, Urine Glucose (UA) Normal, Urine Ketones Negative, Urine Occult Blood Negative, Urine Nitrite Negative, Urine Bilirubin Negative, Urine Urobilinogen Normal, Ur Leukocyte Esterase Negative, Urine RBC 0 SEEN, Urine WBC 0 SEEN, Ur Squamous Epith Cells 0 SEEN, Urine Bacteria 0 SEEN, Urine Mucus 0 SEEN, Urine Opiates Screen NEGATIVE, Urine Methadone Screen NEGATIVE, Ur Barbiturates Screen NEGATIVE, Ur Phencyclidine Scrn NEGATIVE, Ur Amphetamines Screen NEGATIVE, MDMA (Ecstasy) Screen NEGATIVE, U Benzodiazepines Scrn NEGATIVE, Urine Cocaine Screen NEGATIVE, U Cannabinoids Screen NEGATIVE, Ur Drug Screen Comment Micro: Microbiology 10/29/23 23:15 Mucosa - Nose SARS-CoV-2, Influenza & RSV (PCR) - Final Imaging Radiology Impression Chest X-Ray 10/29/23 22:47 IMPRESSION: Patchy new right basilar opacity. Atelectasis versus infiltrate. Electronically Signed: Macy Gonzalez MD at 23:53 EDT , Assessment & Plan Assessment/Plan (1) Pneumonia: QUALIFIERS: Laterality: right Lung location: lower lobe of lung Pneumonia type: due to unspecified organism Qualified Code(s): J18.9 - Pneumonia, unspecified organism (2) Acute respiratory failure with hypoxia and hypercapnia: (3) COPD with acute exacerbation: (4) D-dimer, elevated: (5) Tobacco abuse: (6) Metabolic encephalopathy: (7) Schizophrenia: QUALIFIERS: Schizophrenia type: unspecified Qualified Code(s): F20.9 - Schizophrenia, unspecified (8) Chronic malnutrition: (9) Other specified peripheral vascular diseases: (10) Obesity (BMI 30.0-34.9): (11) Lymphedema: PLAN: Plan 1. RLL opacity consistent with suspected Pneumonia in the setting of a known history of aspiration pneumonia - Admit to PCU. Resume IV Zosyn and IV Vancomycin begun in the ER and await culture & sensitivity data. Give Tylenol prn pain or fever. Finally, we will consult Speech Therapy to see this patient on-rounds in the AM for further recommendations with help appreciated in advance. 2. AE COPD and Acute Hypoxic and Hypercapnic Respiratory Failure requiring BiPAP due to #1 with elevated d dimer of 1.36 present on admission - Continue broad-spectrum antibiotics plus add IV Solumedrol plus scheduled and prn nebulizers. Resume BiPAP for now and wean as tolerated. Check STAT CTA of chest with and without contrast to evaluate for possible underlying PE. Check bilateral LE dopplers to evaluate for possible DVT. 3. Metabolic Encephalopathy in the setting of known Paranoid Schizophrenia and Bipolar disorder; on [place] complicating #1 & #2 - Continue home regimen and monitor for improvement. Otherwise, we will minimize other new BENCH GRINDER-active medications. 4. History of ongoing tobacco abuse; with subsequent COPD compounding #1 - #3 - Tobacco Cessation will be strongly encouraged with Nicotine patch offered to control cravings. 5. History of EtOH abuse - Watch out for signs and symptoms of withdrawal with none present at this time. 6. PVD; with history of LE ulcers and chronic LE lymphedema; with chronic venous insufficiency and cellulitis followed by the Wound Clinic - Stable. Continue to follow wound care plan as previous. 7. Essential hypertension - Resume current regimen plus give IV Hydralazine prn for systolic blood pressure > 160 mmHg. 8. Hyperlipidemia - Continue statin. 9. Obesity; with BMI of 32.2 this admission - Weight loss will be recommended. Check TSH. 10. History of DVT LLE - Noted. 11. History of sepsis - Noted. 12. Chronic malnutrition - Stable with apparently good weight and nutritional status at this time. 13. History of hyponatremia - Stable with serum sodium of 134 mmol/L present on admission. 14. History of Right knee arthroscopy - Noted. 15. History of laparoscopic cholecystectomy - Noted. 16. History of bilateral inguinal hernia repair - Noted. 17. BPH - Resume Tamsulosin as previous. 18. GERD - Continue PPI BID. 19. DVT prophylaxis - Lovenox 40 mg sq daily. Total time: Approximately 75 minutes. Charges/Coding Visit Charges Inpatient E&M: 03159 Init Hosp L3
--- NOTE | 2023-10-30 00:35 | EDS_ITS ---
HPI History of Present Illness Chief Complaint: Confusion Informant: patient, EMS and SNF Narrative Narrative: Patient is a 63-year-old male from assisted living/half-way with history of COPD bipolar disorder schizophrenia and GERD. prison states that this evening he appeared short of breath and with this was sent into the hospital. Upon arrival the patient's pulse ox on room air is low at approximately 75% and there is no reported need for supplemental oxygen at baseline. He is also febrile at 101 however he does not endorse fever but simply states that he does not feel well. EMS had concern of confusion but the patient is awake and alert to person place and time. He does have garbled speech and the half-way cannot be contacted to find out if this is his baseline but the patient does not have any focal neurologic deficits and he does not seem concerned about his speech pattern and therefore I assume this is his normal. However with his feeling unwell fever and shortness of breath he was sent in for evaluation [facility] Medical History (Updated 10/30/23 @ 01:[address] Marques Wise, DO) Aspiration pneumonia Hypoxemia GERD (gastroesophageal reflux disease) Sepsis Tobacco abuse Schizophrenia COPD exacerbation Bipolar disorder Home Medications ?Medication ?Instructions ?Recorded ?Last Taken ?Type benztropine 2 mg tablet 1 mg PO QHS 02/18/15 Unknown History lithium carbonate 300 mg 600 mg PO QHS 02/18/15 Unknown History tablet,extended release olanzapine 10 mg tablet 10 mg PO DAILY 02/18/15 Unknown History omeprazole 20 mg capsule,delayed 20 mg PO BID 02/18/15 Unknown History release spironolactone 25 mg tablet 25 mg PO DAILY 02/18/15 Unknown History fluphenazine decanoate 25 mg/mL 25 mg IJ [id number] PARANOID 07/29/16 Unknown History injection solution SCHIZOPHRENIA multivitamin,[id number] 27 1 tab PO DAILYCM 08/01/16 Unknown Rx mg-0.4 mg tablet acetaminophen 500 mg tablet 1,000 mg PO TID PRN Pain 05/02/18 Unknown History (Pharbetol) albuterol sulfate 90 mcg/actuation 2 puff inhalation Q4H PRN PRN Sob 05/02/18 Unknown History aerosol inhaler (Ventolin HFA) &/Or Wheezing docusate sodium 100 mg capsule 100 mg PO BID PRN Constipation 05/02/18 Unknown History (DOK) fluticasone propionate 50 1 spray DAILY PRN Allergies 05/02/18 Unknown History mcg/actuation nasal spray,suspension montelukast 10 mg tablet 10 mg PO DAILY 05/02/18 Unknown History olanzapine 20 mg tablet (Zyprexa) 20 mg PO QHS 05/02/18 Unknown History omega-3 fatty acids-fish oil 300 2 capsule PO BID 05/02/18 Unknown History mg-1,000 mg capsule simvastatin 20 mg tablet (Zocor) 20 mg PO QHS 05/02/18 Unknown History cholecalciferol (vitamin D3) 50 2,000 unit PO DAILY 12/24/18 Unknown History mcg (2,000 unit) capsule amlodipine 5 mg tablet 5 mg PO DAILY 03/22/23 Unknown History buspirone 10 mg tablet 10 mg PO TID 03/22/23 Unknown History sodium chloride 0.65 % nasal spray 1 spray intranasal TID PRN dry 03/22/23 Unknown History aerosol (Deep Sea Nasal) nasal passages tamsulosin 0.4 mg capsule (Flomax) 0.4 mg PO QHS 03/22/23 Unknown History Allergy/AdvReac Type Severity Reaction Status Date / Time codeine AdvReac Upset Verified 10/29/23 22:03 Stomach haloperidol (From Haldol) AdvReac Abd Verified 10/29/23 22:03 cramps/diarrhea haloperidol lactate (From AdvReac Abd Verified 10/29/23 22:03 Haldol) cramps/diarrhea ziprasidone AdvReac Unknown Verified 10/29/23 22:03 Family History Mother Diabetes Surgical History S/P right knee arthroscopy S/P laparoscopic cholecystectomy History of esophagogastroduodenoscopy (EGD) S/P bilateral inguinal hernia repair Social History Smoking Status: Current every day smoker tobacco type: cigarettes ROS ROS ED Constitutional Constitutional ED: Reports chills, fever(s) and subjective ENT ENT ED: Reports rhinorrhea; Denies sore throat Cardiovascular Cardiovascular: Denies chest pain Respiratory/Chest Respiratory/Chest: Reports cough and dyspnea Gastrointestinal Gastrointestinal: Denies abdominal pain, diarrhea, nausea or vomiting Genitourinary Genitourinary ED: Denies dysuria Musculoskeletal Musculoskeletal: Reports myalgias Integumentary Denies rash Neurologic Neurologic: Denies headache(s) Hematologic/Lymphatic Hematologic/Lymphatic: Denies easy bleeding or easy bruising Allergic/Immunologic Allergic/Immunologic ED: Denies mouth swelling or tongue swelling EXAM Physical Exam Const Vital Signs: 10/29/23 22:03 10/29/23 22:03 10/29/23 23:42 Temperature 101.1 F H Temperature Source Oral Pulse Rate 89 Respiratory Rate 20 H Blood Pressure 126/68 H Blood Pressure Mean 87 Pulse Ox 77 90 75 Oxygen Delivery Method Room Air Nasal Cannula Room Air Oxygen Flow Rate (L/min) 4 10/29/23 23:48 10/29/23 23:49 10/29/23 23:51 Temperature Temperature Source Pulse Rate Respiratory Rate Blood Pressure Blood Pressure Mean Pulse Ox 90 91 98 Oxygen Delivery Method Nasal Cannula Nasal Cannula Nasal Cannula Oxygen Flow Rate (L/min) 4 6 6 10/29/23 23:52 10/30/23 00:38 10/30/23 00:50 Temperature Temperature Source Pulse Rate Respiratory Rate Blood Pressure Blood Pressure Mean Pulse Ox 96 83 96 Oxygen Delivery Method Nasal Cannula Nasal Cannula High Flow Oxygen Flow Rate (L/min) 4 6 10 10/30/23 00:53 10/30/23 00:54 Temperature 98.9 F 98.9 F Temperature Source Oral Pulse Rate 86 89 Respiratory Rate 20 H 20 H Blood Pressure 113/53 L 113/53 L Blood Pressure Mean 73 73 Pulse Ox 98 98 Oxygen Delivery Method High Flow Oxygen Flow Rate (L/min) 10 Positive well nourished, well developed and obese General Appearance ED: well developed; Negative for pallor Nutritional Appearance: obese HEENT Reports dry mucous membranes HEENT Narrative: No tongue or lip swelling no oral lesions no airway edema or compromise There is cobblestoning noted in the posterior pharynx consistent with sinus drainage No secondary findings to suggest infection Mouth ED: Yes dry mucous membranes Mouth: dry mucous membranes Eyes PERRL and EOMs intact bilaterally General Eye ED: Negative for scleral icterus Neck supple and no JVD Neck Narrative: No nuchal rigidity or meningeal signs Chest Wall palpation of chest normal Chest Narrative: No bony deformity or crepitance Resp Resp Narrative: Patient is tachypneic and breath sounds are diminished throughout with diffuse expiratory wheezing as well as rhonchi in the bilateral bases Cardio regular rate and regular rhythm Rate: other Other Details: Radial and carotid pulses are equal and symmetric GI normal to inspection, nondistended, normoactive bowel sounds, non-tender, non- distended and no masses GI Narrative: No voluntary guarding or rigidity or pulsatile mass Auscultation: normoactive bowel sounds Palpation: soft Extremity Extremity Narrative: +1-2 pitting edema to the bilateral lower extremities that is equal and symmetric with negative Homans' sign bilaterally Neuro oriented x3 and CN's II-XII intact bilaterally Sensorium / Orientation: alert Motor Exam: strength 5/5 throughout Psych Psych Narrative: Patient has a depressed/flat affect Skin no rashes or lesions noted General Skin Exam: Negative for jaundice or pallor MDM MDM MDM Narrative Medical decision making narrative: Patient arrived to the ER febrile at 101 and room air pulse ox was low at approximately 75. Based on his fever and hypoxia there is concern for pneumonia or potential COVID versus RSV versus influenza versus pleural effusion. There is concern for septicemia as well or potential congestive heart failure based on his peripheral edema. Secondary to his basic labs were obtained as well as a viral swab. Patient's white count is normal at 6 and he does not have left shift. Lactic acid is also normal at 0.7 going against systemic infection. proBNP is normal at 90 going against fluid overload/CHF. Viral swab was negative for COVID as well. Chest x-ray question atelectasis versus infiltrate but with his hypoxia and fever this is most likely pneumonia and as he comes from a skilled/nursing facility there is concern for atypical infection or multidrug-resistant infection so he was started on vancomycin and Zosyn. The patient initially responded well to nasal cannula oxygen but despite being on 4 to 6 L his pulse ox would continue to drop so he was placed on high flow nasal cannula. At that time the decision was made to check a ABG and he does have hypercarbia with a pCO2 of 73. Based on this elevated value he will be transiti on to BiPAP and admitted to PCU. Medicine was contacted regarding the patient and they agree with plan of care at this time History & Record Review Discussion w/independent historian: EMS personnel and Patient Lab Data Attestation: I reviewed the patient's lab results. Labs: Laboratory Results - last 24 hr 10/29/23 10/29/23 22:15 23:15 WBC 6.0 RBC 3.87 L Hgb 12.6 L Hct 41.1 MCV 106.2 H MCH 32.6 H MCHC 30.7 L RDW Std Deviation 62.4 H RDW Coeff of Babatunde 16.1 H Plt Count 159 MPV 10.2 Immature Gran % (Auto) 0.500 Neut % (Auto) 76.4 H Lymph % (Auto) 10.6 L Steele % (Auto) 9.5 Eos % (Auto) 2.5 Baso % (Auto) 0.5 Absolute Neuts (auto) 4.6 Absolute Lymphs (auto) 0.64 L Nucleated RBC % 0.5 D-Dimer Quant (PE/DVT) 1.36 H* Sodium 134 L Potassium 4.5 Chloride 100 Carbon Dioxide 33.0 H Anion Gap 1 L BUN 8 Creatinine 1.09 Estim Creat Clear Calc 82.56 Est GFR (MDRD) Af Amer 88 Est GFR (MDRD) Non-Af 73 BUN/Creatinine Ratio 7.3 L Glucose 95 Lactic Acid 0.7 Calcium 8.6 B-Natriuretic Peptide 89.0 Procalcitonin 0.17 H TSH 1.410 Urine Color Yellow Urine Clarity Clear Urine pH 7.0 Ur Specific [place] 1.005 Urine Protein Negative Urine Glucose (UA) Normal Urine Ketones Negative Urine Occult Blood Negative Urine Nitrite Negative Urine Bilirubin Negative Urine Urobilinogen Normal Ur Leukocyte Esterase Negative Urine RBC 0 SEEN Urine WBC 0 SEEN Ur Squamous Epith Cells 0 SEEN Urine Bacteria 0 SEEN Urine Mucus 0 SEEN Urine Opiates Screen NEGATIVE Urine Methadone Screen NEGATIVE Ur Barbiturates Screen NEGATIVE Ur Phencyclidine Scrn NEGATIVE Ur Amphetamines Screen NEGATIVE MDMA (Ecstasy) Screen NEGATIVE U Benzodiazepines Scrn NEGATIVE [place] 1.20 Urine Cocaine Screen NEGATIVE U Cannabinoids Screen NEGATIVE Ur Drug Screen Comment Ethyl Alcohol < 3.0 ABG Data ABG results: ABG 10/30/23 00:54 Specimen Type ART Sample Site R Radial pH 7.26 L Bicarbonate Actual 32.8 H Total CO2 35 Base Excess 6 H O2 Saturation 92 L O2 % 10.0 ABG pCO2 72.9 H* ABG pO2 75 Oj Test Positive O2 Delivery Device Cannula Vent Mode Not entered Crit Call To/Read Back Yes Blood Gas Notified Time 00:57:09 Radiography Diagnostic Testing: Clinical Impression(s) from Imaging Studies Chest X-Ray 10/29/23 22:47 IMPRESSION: Patchy new right basilar opacity. Atelectasis versus infiltrate. Electronically Signed: Macy Gonzalez MD at 23:53 EDT , Chest x-ray as interpreted by the emergency medicine physician reveals hazy opacities in the lower lobes greatest on the right concerning for developing pneumonia Management Discussion w/another healthcare provider: Hospitalist Discharge Plan Dx/Rx/DC Orders Clinical Impression: Acute respiratory failure, Hypoxemia, Hypercarbia, Tobacco use, Bipolar disorder, COPD exacerbation Disposition Disposition: Acute Care Hospital [facility]
[2023-10-30] MEDS: Piperacil/Tazobactam 3.375 GM in 0.9% Normal Saline (50mL MB+) 50 ML IV ×4 (00:55→21:21)
[2023-10-30 01:00] LABS: Allen Test Positive; Base Excess 6 mmol/L (-2 to +2); Bicarbonate 32.8 mmol/L (22-26); Blood Gas Specimen Type ART; Mode Not entered; O2 Delivery Device Cannula; PO2 75 mmHG (75-100); SITE R Radial; SO2 92 % (95-99); Total Carbon Dioxide 35 mmol/L; pCO2 72.9 mmHg (35-45); pH 7.26 (7.35-7.45)
--- NOTE | 2023-10-30 01:02 | CPS ---
Critical ABG values, Dr. Ureña aware.
[2023-10-30 01:08] LABS: D-Dimer Quantitative (DVT/PE) 1.36 FEU/ug/m (0.27-0.49)
[2023-10-30 01:31] LABS: Magnesium 2.6 mg/dL (1.6-2.6)
--- NOTE | 2023-10-30 01:46 | VDLE_ITS ---
Reason For Study: elevated D-Dimer RIGHT LEFT GSV is normal. GSV is normal. CFV is compressible, spontaneous, phasic, CFV is compressible, spontaneous, phasic, competent and demonstrates normal competent, and demonstrates normal augmentation. augmentation. FV is compressible, spontaneous, phasic, FV is compressible, spontaneous, phasic, competent and demonstrates normal competent and demonstrates normal augmentation. augmentation. POP V is compressible, spontaneous, phasic, POP V is compressible, spontaneous, phasic, competent and demonstrates normal competent and demonstrates normal augmentation. augmentation. T/P Trunk is compressible. T/P Trunk is compressible. Procedure This is a venous duplex using B-mode, color flow and spectral Doppler. Exam performed portable in ICU/CCU. The study was technically difficult. D/T edema. Unable to assess below knee bilaterally due to bandages. A preliminary report was called and/or faxed to ICU. VL/Venous Duplex US - Master Extrem Interpretation Summary Deep veins of the bilateral lower extremities are patent and compressible segme ntally. There is no evidence of bilateral lower extremity deep vein thrombosis. The bilateral great saphenous veins appear patent and compressible segmentally. Ordering Physician: Marques Wise Referring Physician: Ingris Chu Performed By: Joy Dawson, CRESENCIO, RVT
[2023-10-30] MEDS: Vancomycin HCl 1,500 MG in 0.9% Normal Saline (500mL Bag) 500 ML 250 MG IV (01:50)
--- NOTE | 2023-10-30 02:17 | CT_ITS ---
STUDY: CTA CHEST REASON FOR EXAM: Male, 63 years old. Elevated d-dimer and SOB. Evaluate for PE. RADIATION DOSAGE (If Supplied By Facility): CTDIvol = ( 14.80 ) mGy, DLP = ( 503.99 ) mGycm TECHNIQUE: The examination was performed with the intravenous administration of IV 100mL Isovue-370. Post-processing of the angiographic images was performed, with multiplanar reformation and 3D reconstruction. Individualized dose optimization techniques were used for this CT. COMPARISON: None. FINDINGS: Homogeneous thyromegaly. Normal enhancement of the bilateral pulmonary arteries. There is no demonstrated pulmonary embolism. Mild main pulmonary arterial enlargement. Aortic atherosclerosis without dissection or ectasia. Cardiomegaly. No pericardial effusion. No densely calcified coronary atherosclerosis. Numerous scattered mediastinal lymph nodes up to 1.6 cm in short axis, precarinal. Bilateral small hilar lymph nodes are present up to 8 mm in short axis. No endobronchial lesion. Mild diffuse smooth intralobular septal edema with peribronchial thickening. Mild dependent atelectasis. Diffuse centrilobular emphysematous change throughout the upper lungs.. No effusion. No pneumothorax. Left greater than right gynecomastia. No acute osseous finding Normal osseous structures. Partially seen left renal cysts, no specific imaging follow-up required. CT/CTA Chest W/WO Contrast IMPRESSION: No evidence of pulmonary embolism. Cardiomegaly with mild interstitial edema] and mild dependent atelectasis. Moderate upper lung emphysematous change. Mild main pulmonary arterial enlargement relative to aorta which can be seen with pulmonary hypertension. Electronically Signed: Murali Ramirez MD at 5:29 EDT ,
[2023-10-30 02:44] LABS: Basophil# 0.04 X10^3/uL; Basophil% 0.6 % (0-1); Eosinophil# 0.15 X10^3/uL; Eosinophils% 2.3 % (0-5); Hematocrit 44.5 % (40-54); Hemoglobin 13.5 g/dL (13.0-16.5); Lymphocyte % 12.1 % (19-41); Mean Corp Hgb Conc 30.3 g/dL (32-36); Mean Corpuscular Hgb 32.7 pg (27.0-32.0); Mean Corpuscular Volume 107.7 fL (80-94); Mean Platelet Vol. 9.9 fl (6.2-12.0); Monocyte# 0.58 X10^3/uL; Monocyte% 8.8 % (0-10); NRBC Flagged by Analyzer 0.5 % (0-5); Neutrophil # 5.01 X10^3/uL (2.7-7.7); Neutrophil % 75.7 % (47-70); Platelet Count 162 K/mm3 (150-450); RBC Distribution Width CV 16.1 % (11.6-14.6); RBC Distribution Width SD 63.4 fl (35.1-43.9); Red Blood Count 4.13 M/mm3 (4.6-6.2); White Blood Count 6.6 K/mm3 (4.4-11.0)
[2023-10-30 02:58] LABS: ALB/GLOB Ratio 0.5 RATIO (0.9-2.4); AST(SGOT) 18 U/L (15-37); Alanine Aminotransfer ALT/SGPT 18 U/L (16-61); Albumin, Serum 2.5 g/dL (3.2-5.0); Alkaline Phosphatase 84 U/L (45-117); Anion Gap 1 (5-15); BUN 8 mg/dL (7-18); BUN/Creat Ratio 6.6 RATIO (10-20); Calcium,Total 8.4 mg/dL (8.5-10.1); Chloride 104 mmol/L (98-107); Creatinine, Serum 1.21 mg/dL (0.70-1.30); EST Glomerular Filtration Rate 65 mL/min (>60); Est Glom Filt Rate - Afr Amer 78 mL/min (>60); Estimated Creatinine Clearance 72.18 ml/min; Globulin 4.9 g/dL (2.2-4.2); Glucose 128 mg/dL (74-106); Phosphorus 3.5 mg/dL (2.5-4.9); Potassium 4.2 mmol/L (3.5-5.1); Protein, Total 7.4 g/dL (6.4-8.2); Sodium Level 137 mmol/L (136-145)
--- NOTE | 2023-10-30 03:31 | PCM.RX.CS ---
Consult Antibiotic Management Pharmacy has been consulted to manage selected antibiotic: Vancomycin Type of Intervention Type of Consult: New start Labs Labs: Sodium 137 mmol/L (136-145) 10/30/23 02:37 Potassium 4.2 mmol/L (3.5-5.1) 10/30/23 02:37 Chloride 104 mmol/L (98-107) 10/30/23 02:37 Carbon Dioxide 32.0 mmol/L (21.0-32.0) 10/30/23 02:37 Anion Gap 1 (5-15) L 10/30/23 02:37 BUN 8 mg/dL (7-18) 10/30/23 02:37 Creatinine 1.21 mg/dL (0.70-1.30) 10/30/23 02:37 Est GFR (MDRD) Af Amer 78 mL/min (>60) 10/30/23 02:37 Est GFR (MDRD) Non-Af 65 mL/min (>60) 10/30/23 02:37 BUN/Creatinine Ratio 6.6 RATIO (10-20) L 10/30/23 02:37 Glucose 128 mg/dL (74-106) H 10/30/23 02:37 Microbiology Microbiology: Microbiology 10/29/23 23:15 Mucosa - Nose SARS-CoV-2, Influenza & RSV (PCR) - Final Dosing Weight Weight used for dosin.4 kg Estimated Creatinine Clearance Estimated Creatinine Clearance: 72.18 Goal Trough Goal Trough: 15-20 mcg/mL Pharmacy Plan for Drug Dosing Pharmacy Plan for Drug Dosing: Pharmacy Service will continue to monitor and adjust dosing as required. 1500MG IN ER, 1500 Q12H, TROUGH PRIOR TO 4TH DOSE Follow-Up Labs Follow-Up Labs: Trough: Vancomycin Date/Time Labs Ordered Labs to be done on [date and time ordered]: 10/30 @ 7159
[2023-10-30] MEDS: 0.9% Saline Lock 10 ML Syringe IV (03:34)
[2023-10-30] MEDS: 0.9% Normal Saline (1000mL) 1,000 ML 70 ML IV ×2 (03:34→17:24)
[2023-10-30 03:53] LABS: Allen Test Positive; Base Excess 7 mmol/L (-2 to +2); Bicarbonate 33.2 mmol/L (22-26); Blood Gas Specimen Type ART; Comment 16/10; Mode Not entered; O2 Delivery Device BiPAP; PO2 69 mmHG (75-100); RR 12; SITE L Radial; SO2 91 % (95-99); Total Carbon Dioxide 35 mmol/L; pCO2 66.3 mmHg (35-45); pH 7.31 (7.35-7.45)
[2023-10-30] MEDS: busPIRone 5 MG Tablet 10 MG PO ×3 (04:19→21:23)
[2023-10-30] MEDS: levoFLOXacin IV 750 MG/150 ML BAG 100 MG IV (08:48)
[2023-10-30] MEDS: Enoxaparin 40 MG/0.4 ML Syringe SC (08:48)
[2023-10-30] MEDS: Multivitamins,Ther W-Minerals Tablet 1 TABLET PO (08:49)
[2023-10-30] MEDS: Montelukast 10 MG Tablet PO (08:49)
[2023-10-30] MEDS: Cholecalciferol (VIT D3) 25 MCG TABLET (1,000 UNITS) 50 MCG PO (08:49)
[2023-10-30] MEDS: Pantoprazole Sodium 20 MG Tablet PO ×2 (08:50→21:22)
[2023-10-30] MEDS: Spironolactone 25 MG Tablet PO (08:50)
[2023-10-30] MEDS: OLANZapine 10 MG Tablet PO (08:50)
[2023-10-30] MEDS: amLODIPine 5 MG Tablet PO (08:50)
[2023-10-30] MEDS: Lactobacillis Acidophilus 1 CAP PO ×4 (08:50→21:22)
[2023-10-30] MEDS: Fluticasone 0.05% 1 SPRAY NASAL.SRY NASAL (08:51)
[2023-10-30] MEDS: Furosemide 40 MG/4 ML Vial IV (08:58)
--- NOTE | 2023-10-30 09:28 | CASEMGMT ---
Addendum entered by Elisabet Mcmillan 10/30/23 09:48: Fax confirmation rec'd. Elisabet Mcmillan DC Planning Asst. Original Note: Discharge Planning Updates faxed to [facility]. Asked if pt was on O2 and requested any advanced directives be faxed to . Elisabet Mcmillan DC Planning Asst.
--- NOTE | 2023-10-30 09:38 | WOUNDNOTE ---
Was asked to see patient for venous stasis changed to bilateral lower legs. removed the RAYA wraps and dressings. there are scattered dry patches. no open areas noted. hemosiderin staining noted to bilateral lower legs. moderate edema. washed legs and feet with soap and water. pat dry. applied aloe vesta and wrapped with kerlix. reapplied the RAYA wraps from the base of the toes to just below the knees. pt tolerated well. see skin photos.
--- NOTE | 2023-10-30 09:57 | WOUNDNOTE ---
skin photo: left lower leg/foot
--- NOTE | 2023-10-30 09:58 | WOUNDNOTE ---
skin photo: left lower leg
--- NOTE | 2023-10-30 09:58 | WOUNDNOTE ---
skin photo: right lower leg
--- NOTE | 2023-10-30 09:59 | WOUNDNOTE ---
skin photo: right lower leg
--- NOTE | 2023-10-30 10:00 | WOUNDNOTE ---
skin photo: right foot
--- NOTE | 2023-10-30 12:29 | CON.PCM.CC_ITS ---
Assessment & Plan Assessment/Plan (1) Acute respiratory failure with hypoxia and hypercapnia: PLAN: Plan RECOMMENDATIONS: 1. Supplemental oxygen to maintain saturations at or above 90%. 2. Recommend PAP therapy with naps and nightly. 3. Recommend transitioning from Levaquin to Zosyn, given concerns for aspiration. 4. Formal speech therapy workup prior to advancement of diet. 5. Continue scheduled bronchodilators and steroids as ordered. 6. Encourage incentive spirometer use and mobilize patient as tolerated. 7. The patient would ultimately benefit from establishing care with a refrigeration operator so that baseline PFTs can be completed. IMPRESSIONS: 1. Acute respiratory failure with hypoxemia and hypercapnia There is some concern for a potential aspiration event leading to an acute exacerbation of his suspected underlying obstructive lung disease. The patient has an extensive tobacco abuse history. However, he has never been formally evaluated by a refrigeration operator, nor has he ever completed pulmonary function studies. CTA chest ruled out pulmonary embolism. However, there were vague findings concerning for tracheobronchitis without focal consolidation or infiltrate noted. Given the aforementioned, we will plan to check a full respiratory viral panel as well. I would plan to keep him on empiric antibiotics, pending speech therapy evaluation, over concerns for aspiration. Supplemental oxygen will be continued to maintain saturations at or above 90%. The patient has already been initiated on bronchodilators and steroids. I highly suspect that the patient has an underlying component of sleep apnea and will therefore benefit from ongoing PAP therapy, with naps and nightly. 2. History of tobacco dependency/questionable alcohol dependency/hypertension/hyperlipidemia/history of DVT/obesity/suspected QUANG Complicates care, management, recovery and prognosis. Continue home medications as indicated. Speech therapy is planning for cookie swallow prior to advancement of diet. This note was generated with [employer] dictation software. It may contain incorrect words, spelling, and punctuation that were not noted in checking the note before signing. HPI Consult Data Date of Consult: 10/30/23 HPI Narrative Reason for Consultation: Pneumonia HPI Narrative: The patient is a 63-year-old male, with a history as outlined below, who presented to the emergency department via EMS on October 28 with shortness of breath and hypoxemia. The patient has a questionable history of COPD, never having been formally diagnosed, as he does not follow with a refrigeration operator on an outpatient basis. Nevertheless, the patient has an extensive tobacco abuse history. In addition, his medical history is significant for bipolar disorder, schizophrenia and GERD. He apparently does not utilize supplemental oxygen at his baseline. The patient currently resides at an assisted living facility. On presentation to the emergency department, the patient was documented to have a temperature of 101 ?F. He was otherwise hemodynamically stable and saturating in the 90s on 6 L/min via nasal cannula. Laboratory evaluation revealed a normal white blood cell count. Platelet count was within normal limits. ABG demonstrated a pH of 7.26 with a pCO2 of 73 and pO2 of 75. Chemistry profile was notable for a bicarbonate of 33 and normal creatinine. BNP was within normal limits. Urine analysis was unremarkable. CTA chest showed no evidence for pulmonary embolism. Mild edema with parabronchial thickening was noted along with atelectasis and bilateral emphysematous changes. COVID, influenza and RSV PCR's were negative. The patient was initiated on bronchodilators and antimicrobials. He was also seen by speech therapy who recommended a formal swallow evaluation. [facility] Medical History (Updated 10/30/23 @ 01:[address] Marques Wise, ) Aspiration pneumonia Hypoxemia GERD (gastroesophageal reflux disease) Sepsis Tobacco abuse Schizophrenia COPD exacerbation Bipolar disorder Home Medications ?Medication ?Instructions ?Recorded ?Last Taken ?Type benztropine 2 mg tablet 1 mg PO PRN abnormal movements 02/18/15 Unknown History lithium carbonate 300 mg 600 mg PO QHS Bipolar 02/18/15 10/29/23 History tablet,extended release olanzapine 10 mg tablet 10 mg PO DAILY 02/18/15 Unknown History omeprazole 20 mg capsule,delayed 20 mg PO BID 02/18/15 Unknown History release spironolactone 25 mg tablet 25 mg PO DAILY 02/18/15 Unknown History fluphenazine decanoate 25 mg/mL 25 mg IJ [id number] PARANOID 07/29/16 Unknown History injection solution SCHIZOPHRENIA multivitamin,[id number] 27 1 tab PO DAILYCM 08/01/16 10/29/23 Rx mg-0.4 mg tablet acetaminophen 500 mg tablet 1,000 mg PO TID PRN Pain 05/02/18 Unknown History (Pharbetol) albuterol sulfate 90 mcg/actuation 2 puff inhalation Q4H PRN PRN Sob 05/02/18 Unknown History aerosol inhaler (Ventolin HFA) &/Or Wheezing docusate sodium 100 mg capsule 100 mg PO BID PRN Constipation 05/02/18 Unknown History (DOK) fluticasone propionate 50 1 spray DAILY PRN Allergies 05/02/18 Unknown History mcg/actuation nasal spray,suspension montelukast 10 mg tablet 10 mg PO DAILY 05/02/18 Unknown History olanzapine 20 mg tablet (Zyprexa) 20 mg PO QHS 05/02/18 Unknown History omega-3 fatty acids-fish oil 300 2 capsule PO BID deficiency 05/02/18 10/29/23 History mg-1,000 mg capsule simvastatin 20 mg tablet (Zocor) 20 mg PO QHS 05/02/18 Unknown History cholecalciferol (vitamin D3) 50 2,000 unit PO DAILY calcium 12/24/18 10/29/23 History mcg (2,000 unit) capsule amlodipine 5 mg tablet 5 mg PO DAILY 03/22/23 Unknown History buspirone 10 mg tablet 10 mg PO PRN anxiety 03/22/23 Unknown History sodium chloride 0.65 % nasal spray 1 spray intranasal TID PRN dry 03/22/23 Unknown History aerosol (Deep Sea Nasal) nasal passages tamsulosin 0.4 mg capsule (Flomax) 0.4 mg PO QHS 03/22/23 Unknown History ammonium lactate 12 % topical cream 1 applic topical BID skin 10/30/23 10/29/23 History irritation Allergy/AdvReac Type Severity Reaction Status Date / Time codeine AdvReac Upset Verified 10/29/23 22:03 Stomach haloperidol (From Haldol) AdvReac Abd Verified 10/29/23 22:03 cramps/diarrhea haloperidol lactate (From AdvReac Abd Verified 10/29/23 22:03 Haldol) cramps/diarrhea ziprasidone AdvReac Unknown Verified 10/29/23 22:03 Family History Mother Diabetes Surgical History S/P right knee arthroscopy S/P laparoscopic cholecystectomy History of esophagogastroduodenoscopy (EGD) S/P bilateral inguinal hernia repair Social History Smoking Status: Current every day smoker tobacco type: cigarettes ROS ROS Narrative 10 systems were reviewed with pertinent positives as noted in the HPI above. Physical Exam Const alert and no apparent distress Constitutional Narrative: Sitting in bedside recliner with family present. General Appearance: cooperative HEENT normocephalic and head/scalp atraumatic Eyes PERRL, EOMs intact bilaterally and conjunctivae normal Neck supple General: trachea midline Chest inspection of chest normal Resp normal respiratory effort Auscultation: wheezes and diminished lung sounds Cardio regular rate and regular rhythm GI soft to palpation and non-tender Extremity Extremity Narrative: Wrap lower extremities General Extremity: edema bilateral lower extremity Skin General Skin Exam: venous stasis and dermatitis Neuro CN's II-XII intact bilaterally and no focal motor deficits Psych cooperative Lab / Micro Data 10/30/23 02:37 10/30/23 02:37 Labs: Laboratory Results - last 24 hr 10/29/23 22:15: WBC 6.0, RBC 3.87 L, Hgb 12.6 L, Hct 41.1, MCV 106.2 H, MCH 32.6 H, MCHC 30.7 L, RDW Std Deviation 62.4 H, RDW Coeff of [place] 16.1 H, Plt Count 159, MPV 10.2, Immature Gran % (Auto) 0.500, Neut % (Auto) 76.4 H, Lymph % (Auto) 10.6 L, [place] % (Auto) 9.5, Eos % (Auto) 2.5, Baso % (Auto) 0.5, Absolute Neuts (auto) 4.6, Absolute Lymphs (auto) 0.64 L, Nucleated RBC % 0.5, Sodium 134 L, Potassium 4.5, Chloride 100, Carbon Dioxide 33.0 H, Anion Gap 1 L, BUN 8, Creatinine 1.09, Estim Creat Clear Calc 82.56, Est GFR (MDRD) Af Amer 88, Est GFR (MDRD) Non-Af 73, BUN/Creatinine Ratio 7.3 L, Glucose 95, Lactic Acid 0.7, Calcium 8.6, Magnesium 2.6, B-Natriuretic Peptide 89.0, Procalcitonin 0.17 H, TSH 1.410, [place] 1.20, Ethyl Alcohol < 3.0 10/29/23 23:15: D-Dimer Quant (PE/DVT) 1.36 H*, Urine Color Yellow, Urine Clarity Clear, Urine pH 7.0, Ur Specific [place] 1.005, Urine Protein Negative, Urine Glucose (UA) Normal, Urine Ketones Negative, Urine Occult Blood Negative, Urine Nitrite Negative, Urine Bilirubin Negative, Urine Urobilinogen Normal, Ur Leukocyte Esterase Negative, Urine RBC 0 SEEN, Urine WBC 0 SEEN, Ur Squamous Epith Cells 0 SEEN, Urine Bacteria 0 SEEN, Urine Mucus 0 SEEN, Urine Opiates Screen NEGATIVE, Urine Methadone Screen NEGATIVE, Ur Barbiturates Screen NEGATIVE, Ur Phencyclidine Scrn NEGATIVE, Ur Amphetamines Screen NEGATIVE, MDMA (Ecstasy) Screen NEGATIVE, U Benzodiazepines Scrn NEGATIVE, Urine Cocaine Screen NEGATIVE, U Cannabinoids Screen NEGATIVE, Ur Drug Screen Comment 10/30/23 02:37: WBC 6.6, RBC 4.13 L, Hgb 13.5, Hct 44.5, MCV 107.7 H, MCH 32.7 H , MCHC 30.3 L, RDW Std Deviation 63.4 H, RDW Coeff of [place] 16.1 H, Plt Count 162, MPV 9.9, Immature Gran % (Auto) 0.500, Neut % (Auto) 75.7 H, Lymph % (Auto) 12.1 L, [place] % (Auto) 8.8, Eos % (Auto) 2.3, Baso % (Auto) 0.6, Absolute Neuts (auto) 5.0, Absolute Lymphs (auto) 0.80 L, Nucleated RBC % 0.5, Sodium 137, Potassium 4.2, Chloride 104, Carbon Dioxide 32.0, Anion Gap 1 L, BUN 8, Creatinine 1.21, Estim Creat Clear Calc 72.18, Est GFR (MDRD) Af Amer 78, Est GFR (MDRD) Non-Af 65, BUN/Creatinine Ratio 6.6 L, Glucose 128 H, Calcium 8.4 L, Phosphorus 3.5, Total Bilirubin 0.70, AST 18, ALT 18, Alkaline Phosphatase 84, Total Protein 7.4, Albumin 2.5 L, Globulin 4.9 H, Albumin/Globulin Ratio 0.5 L, TSH 1.210 Micro: Microbiology 10/29/23 23:15 Mucosa - Nose SARS-CoV-2, Influenza & RSV (PCR) - Final ABG Data ABG results: ABG 10/30/23 10/30/23 00:54 03:47 Specimen Type ART ART Sample Site R Radial L Radial pH 7.26 L 7.31 L Bicarbonate Actual 32.8 H 33.2 H Total CO2 35 35 Base Excess 6 H 7 H O2 Saturation 92 L 91 L O2 % 10.0 30.0 ABG pCO2 72.9 H* 66.3 H ABG pO2 75 69 L Oj Test Positive Positive Respiration Rate 12 O2 Delivery Device Cannula BiPAP Vent Mode Not entered Not entered Crit Call To/Read Back Yes Blood Gas Notified Time 00:57:09 Clinical Comments 18/12 Imaging Radiology Impression Chest X-Ray 10/29/23 22:47 IMPRESSION: Patchy new right basilar opacity. Atelectasis versus infiltrate. Electronically Signed: Macy Gonzalez MD at 23:53 EDT , Chest CTA 10/30/23 02:17 IMPRESSION: No evidence of pulmonary embolism. Cardiomegaly with mild interstitial edema] and mild dependent atelectasis. Moderate upper lung emphysematous change. Mild main pulmonary arterial enlargement relative to aorta which can be seen with pulmonary hypertension. Electronically Signed: Murali Ramirez MD at 5:29 EDT , Charges/Coding Visit Charges Inpatient E&M: 41142 Init Hosp L3
--- NOTE | 2023-10-30 14:50 | ST.MBS ---
Modified Barium Swallow Patient Information Study Date: 10/30/23 Study Time: 13:30 Direct Billable Minutes: 97 Total Minutes procedure & reportin Diagnosis: PNA J18.9 Referring Physician: Severino Galan Reason for Referral: Objectively assess swallow function, assess risk for aspiration, and determine recommendations for least restrictive diet textures and compensatory strategies to improve safety of swallow. Medical History: The patient is a 63 M with a past medical history of essential hypertension, hyperlipidemia, obesity; with BMI of 32.2 this admission, Paranoid Schizophrenia, Bipolar disorder; on [place], history of EtOH abuse, history of ongoing tobacco abuse; with subsequent COPD, PVD; with history of LE ulcers [facility], chronic LE lymphedema; with chronic venous insufficiency and Xerosis Cutis, history of DVT LLE, history of LE cellulitis, history of aspiration pneumonia, history of sepsis, chronic malnutrition, history of hyponatremia, history of Right knee arthroscopy, history of laparoscopic cholecystectomy, history of bilateral inguinal hernia repair, BPH and GERD who presented to [facility] 10/30/2023 complaining of fever and SOB. He resides at a local care facility ([facility]) and they noted he seemed to be confused so they activated EMS. In ER, pt was on BiPAP with worsening confusion. In the ER, his CXR revealed patchy RLL opacity consistent with Pneumonia; likely due to recurrent aspiration. Pt made NPO until speech therapy consult. BSE was completed and patient was recommended NPO w/ MBSS prior to diet advancement. Current Diet Ordered: NPO Dentition: Edentulous Mental Status: Impaired (Confusion, but able to follow commands during the evaluation) Respiratory Status: Oxygenating on 3L/M nasal cannula Penetration-Aspiration Scale Penetration-Aspiration Scale: OBJECTIVE ASSESSMENT OF SWALLOW FUNCTION (QUANTITATIVE ? PER TRIAL): PENETRATION / ASPIRATION SCALE (FORD): 1 = does not enter airway 2 = enters airway/above vocal folds/ejected 3 = enters airway/above vocal folds/not ejected 4 = enters airway/contacts vocal folds/ejected 5 = enters airway/contacts vocal folds/not ejected 6 = enters airway/below vocal folds/ejected 7 = enters airway/below vocal folds/not ejected despite effort 8 = enters airway/below vocal folds/no effort VIDEOFLOROSCOPIC SCALE SCORE (FORD): Grade I = aspiration of material that has penetrated into the laryngeal vestibule, intact cough reflex Grade II = aspiration < 10 % of the bolus, intact cough reflex Grade III = aspiration of < 10 % of the bolus, reduced cough reflex or aspiration of > 10 % of the bolus, intact cough reflex Grade IV = aspiration of > 10 % of the bolus, reduced cough reflex Penetration-Aspiration Scale Score Thin Liquid via teaspoon: Result: 1= does not enter airway Thin Liquid via teaspoon Trial 2: Result: 8= enters airway/below vocal folds/no effort Thin Liquid via small single sip: cup: Result: 1= does not enter airway [place] Thick Liquid via large single sip: cup: Result: 5= enters airways/contacts vocal folds/not ejected Honey Thick Liquid via large single sip: cup: Result: 1= does not enter airway Pudding via teaspoon: Result: 1= does not enter airway 1/4 Cookie: Result: 1= does not enter airway Thin Liquid via single sip: straw: Result: 2= enter airway/above vocal folds/ejected Thin Liquid via single sip: straw Trial 2: Result: 5= enters airways/contacts vocal folds/not ejected Thin Liquid via small single sip: cup Effortful swallow: Result: 2= enter airway/above vocal folds/ejected Thin Liquid via large single sip: cup Effortful swallow: Result: 3= enters airways/above vocal folds/not ejected Thin Liquid via small single sip: cup Chin tuck: Result: 2= enter airway/above vocal folds/ejected Thin Liquid via single sip: straw Chin tuck: Result: 3= enters airways/above vocal folds/not ejected Oral Phase Labial Seal: No Labial Escape Tongue Control During Bolus Hold: Posterior escape of greater than half of bolus Bolus Preparation/Mastication: Slow prolonged chewing/mashing with complete recollection Bolus Transport/Lingual Motion: Slowed tongue motion Oral Residue: Residue collection on oral structures Pharyngeal Phase Initiation of Pharyngeal Swallow: Bolus head in pyriforms Soft Palate Elevation: Trace column of contrast/air between soft palate and pharyngeal wall Laryngeal Elevation: Partial superior movement thyroid cart/partial apprx aryt-epig petiole Anterior Hyoid Excursion: Partial anterior movement Epiglottic Movement: Complete inversion Laryngeal Vestibule Closure at Height of Swallow: Incomplete; narrow column of air/contrast in laryngeal vestibule Pharyngoesophageal Segment Opening: Parital distension and partial duration; parital obstruction of flow Tongue Base Retraction: Narrow column of contrast between tongue base & post. pharyngeal wall Pharyngeal Residue: Collection of residue within or on pharyngeal structures Esophageal Phase Esophageal Clearance: Esophageal retention w/ retrograde flow below pharyngoesophageal seg. Diagnosis/Impression Diagnosis: Moderate oropharyngeal dysphagia R13.12 Impression: The oral phase is primarily marked by... -Decreased bolus control with premature posterior loss of majority of bolus to the pharynx prior to swallow onset. With both thin and mildly thickened liquids, bolus spilled to the laryngeal vestibule prior to swallow onset, increasing the patient's risk for preprandial aspiration. -Slowed tongue motion for A-P transport. -Very prolonged, but complete mastication of regular textured cookie. The pharyngeal phase is primarily marked by... -Delayed swallow onset. -Mildly decreased tongue base retraction and duration of UES opening with trace-mild pharyngeal residues after the swallow. -Decreased airway closure during the swallow due to decreased anterior hyoid excursion and laryngeal elevation. SILENT aspiration of thin liquids via tsp. Deep laryngeal penetration of mildly thick via cup and thin liquids via straw without full ejection, increasing risk for post prandial aspiration. The esophageal phase is marked by.. -Mild retention of cookie in the distal esophagus with retrograde flow remaining well below the UES. Recommendations Diet: Regular Textures (Easy to Chew Textures - IDDSI Level 7) and Thin Liquids Compensatory Strategies: Small Bites, Small Sips (CHIN TUCK WITH ALL SIPS), Slow Rate, Sitting upright and Remain sitting upright for 30 minutes after PO intake Supervision: 1:1 Close Supervision (ALL FOOD/DRINK) Recommend Repeat Modified Barium Swallow: Yes Need for Skilled Speech Therapy Services: Yes Comment: Dysphagia POC to include... -Training the patient in use of strategies to decrease risk for aspiration. -Ongoing assessment of diet tolerance of recommended textures. If worsening respiratory status and/or poor adherence to recommended strategies to decrease risk for aspiration, consider diet downgrade to honey/moderately thick liquids. -Train the patient in oropharyngeal exercise program to improve bolus control, airway closure, swallow onset, and UES duration of opening (lingual resistance, CTAR, Maxwell, Shaker, Yawn stretch). Education Completed: 1. Described result of evaluation., 2. Pt understands evaluation & agrees with goals and treatment plan. and 7. Pt requires further education on strategies & risks. Status Active ST Patient: Active Contact Information [facility]:: Trinidad Weaver M.A. CCC-RETAIL MANAGEMENT KEYHOLDER? Speech-Language Pathologist?? [facility] [address] [place] [address]? [email or web address]?? [phone]
--- NOTE | 2023-10-30 15:03 | CASEMGMT ---
Social Work SW spoke w/pt and pt's mother. They confirmed plan will be for pt to return to [facility] at discharge. Pt has not completed POA papers, as per pt's mother. She states pt does have a son but did not want to give his information as he is in the middle of moving. SW will continue to follow, anticipate pt will return to [facility]. Pt is not on oxygen there, uses a cane and walker to get around. MICHAEL Barrow
--- NOTE | 2023-10-30 16:08 | PCM.HOSP.N ---
Hospitalist Note Patient was seen and examined briefly today, I had pulmonary medicine see the patient to ascertain whether the patient really has pneumonia. It was recommended that the patient be started on IV corticosteroids and continue aerosol treatments, antibiotics were changed to Zosyn-I had placed the patient on Levaquin today, pulmonary medicine was concerned the patient was having aspiration and speech therapy is seeing the patient. Levaquin was discontinued. Patient is not on any oxygen at his assisted living facility. His care is complicated by his chronic schizophrenia. Patient is currently on 3 L of oxygen via nasal cannula.
[2023-10-30] MEDS: Ipratropium/Albuterol Sulfate 3 ML AMPUL.NEB INHALATION (19:40)
[2023-10-30] MEDS: Benztropine 2 MG Tablet 1 MG PO (21:21)
[2023-10-30] MEDS: Lithium Carbonate 300mg Capsule 600 MG PO (21:22)
[2023-10-30] MEDS: Tamsulosin HCl 0.4 MG Capsule PO (21:22)
[2023-10-30] MEDS: OLANZapine 10 MG Tablet 20 MG PO (21:23)
[2023-10-30] MEDS: Atorvastatin Calcium 10 MG Tablet PO (23:19)
[2023-10-31] VITALS (10 sets, daily range): BP systolic 114–116; BP diastolic 61–63; PULSE 67–89; RESP 12–28; TEMP 36.3–36.4; O2SAT 90–100; BMI 31.8
[2023-10-31] MEDS: Ipratropium/Albuterol Sulfate 3 ML AMPUL.NEB INHALATION ×4 (01:30→19:06)
[2023-10-31] MEDS: 0.9% Normal Saline (1000mL) 1,000 ML 70 ML IV ×2 (05:36→18:25)
[2023-10-31] MEDS: Piperacil/Tazobactam 3.375 GM in 0.9% Normal Saline (50mL MB+) 50 ML IV ×3 (05:37→21:09)
[2023-10-31] MEDS: busPIRone 5 MG Tablet 10 MG PO ×3 (05:37→21:03)
[2023-10-31] MEDS: Multivitamins,Ther W-Minerals Tablet 1 TABLET PO (08:52)
[2023-10-31] MEDS: Spironolactone 25 MG Tablet PO (08:52)
[2023-10-31] MEDS: Lactobacillis Acidophilus 1 CAP PO ×4 (08:52→21:03)
[2023-10-31] MEDS: Enoxaparin 40 MG/0.4 ML Syringe SC (08:53)
[2023-10-31] MEDS: Cholecalciferol (VIT D3) 25 MCG TABLET (1,000 UNITS) 50 MCG PO (08:55)
[2023-10-31] MEDS: Montelukast 10 MG Tablet PO (08:55)
[2023-10-31] MEDS: Pantoprazole Sodium 20 MG Tablet PO ×2 (08:55→21:03)
[2023-10-31] MEDS: amLODIPine 5 MG Tablet PO (08:55)
[2023-10-31] MEDS: 0.9% Saline Lock 10 ML Syringe IV ×2 (08:56→23:42)
[2023-10-31] MEDS: OLANZapine 10 MG Tablet PO (08:56)
--- NOTE | 2023-10-31 10:30 | CASEMGMT ---
Discharge Planning Updates, including therapy evals, faxed to [facility]. Asked if patient can return and if he has a living will on file. Fax confirmation rec'd. Elisabet Mcmillan DC Planning Asst.
--- NOTE | 2023-10-31 10:34 | PN.CC_ITS ---
Assessment & Plan Assessment/Plan (1) Acute respiratory failure with hypoxia and hypercapnia: PLAN: Plan RECOMMENDATIONS: 1. Supplemental oxygen to maintain saturations at or above 90%. 2. Recommend PAP therapy with naps and nightly. 3. Continue Zosyn for now. At discharge, transition to Augmentin to complete 7 days of therapy. 4. Modified dietary advancement per speech therapy. 5. Continue scheduled bronchodilators and steroids as ordered. At discharge, recommend 5-day burst of prednisone 40 mg daily. 6. Encourage incentive spirometer use and mobilize patient as tolerated. 7. The patient would ultimately benefit from establishing care with a embedded software design engineer so that baseline PFTs can be completed. 8. Will sign off at this time. Please call with any additional questions. IMPRESSIONS: 1. Acute respiratory failure with hypoxemia and hypercapnia There is some concern for a potential aspiration event leading to an acute exacerbation of his suspected underlying obstructive lung disease. The patient has an extensive tobacco abuse history. However, he has never been formally evaluated by a embedded software design engineer, nor has he ever completed pulmonary function studies. CTA chest ruled out pulmonary embolism. However, there were vague findings concerning for tracheobronchitis without focal consolidation or infiltrate noted. However, the patient underwent a formal swallow evaluation which demonstrated moderate oropharyngeal dysphagia with concerns for aspiration. Therefore, the patient is on a modified diet per speech therapy. Accordingly, would recommend that antimicrobials be continued, with plans to transition him to Augmentin to complete 7 days of therapy, at discharge. In addition, the patient will be continued on bronchodilators and steroids. Again, at the time of his discharge, he can be transition to prednisone 40 mg daily to complete a 5-day burst. Ultimately, the patient should follow-up with the pulmonary medicine clinic after discharge to establish care. I highly suspect that the patient has an underlying component of sleep apnea and will therefore benefit from ongoing PAP therapy, with naps and nightly. 2. History of tobacco dependency/questionable alcohol dependency/hypertension/hyperlipidemia/history of DVT/obesity/suspected QUANG Complicates care, management, recovery and prognosis. Continue home medications as indicated. Ongoing dietary advancement per speech therapy. This note was generated with [employer] software. It may contain incorrect words, spelling, and punctuation that were not noted in checking the note before signing. Subjective Subjective The patient was seen and examined at the bedside this morning. Events from the last 24 hours have been reviewed. The patient is currently afebrile, hemodynamically stable and maintaining appropriate oxygen saturations on 2 L/min via nasal cannula. Swallow evaluation completed yesterday demonstrated moderate oropharyngeal dysphagia with modified diet recommended per speech therapy. The patient remains on empiric antimicrobials, bronchodilators and steroids. Objective Data Objective Data The patient's most recent lab work, culture data and imaging studies have all been personally reviewed. Respiratory viral panel was negative. COVID, influenza and RSV PCR's were negative. Vital Signs: Vital Signs Temp Pulse Resp BP Pulse Ox O2 Del Method O2 Flow Rate 97.3 F L 67 18 118/61 93 Bi-pap 2 10/30/23 23:55 10/31/23 06:37 10/31/23 06:37 10/30/23 23:55 10/31/23 03:00 10/31/23 03:00 10/30/23 20:59 FiO2 30 10/31/23 03:00 Oxygen Flow Rate (L/min) 2 Oxygen Delivery Method Bi-pap Weight: 209 lb 7.026 oz Body Mass Index (BMI) 31.8 Intake & Output: Intake and Output for Last 24 Hours 10/29/23 10/30/23 10/31/23 23:59 23:59 23:59 Intake Total 0 / 0 2108.33 / 2348.33 1194 / 1194 Output Total 5300 / 5300 750 / 750 Balance 0 / 0 -3191.67 / -2951.67 444 / 444 Lab / Micro Data Attestation: I reviewed the patient's lab results. 10/30/23 02:37 10/30/23 02:37 Micro: Microbiology 10/30/23 15:30 Mucosa - Nasopharyngeal Respiratory Panel (PCR) - Final 10/29/23 23:15 Mucosa - Nose SARS-CoV-2, Influenza & RSV (PCR) - Final Radiography Diagnostic Testing: Radiology Impression Venous Doppler Study 10/30/23 01:46 Interpretation Summary Deep veins of the bilateral lower extremities are patent and compressible segmentally. There is no evidence of bilateral lower extremity deep vein thrombosis. The bilateral great saphenous veins appear patent and compressible segmentally. Ordering Physician: Marques Wise Referring Physician: Ingris Chu Performed By: Joy Dawson, CRESENCIO, RVT Physical Exam Const alert and no apparent distress Constitutional Narrative: Sitting in bedside recliner with family present. General Appearance: cooperative HEENT normocephalic and head/scalp atraumatic Eyes PERRL, EOMs intact bilaterally and conjunctivae normal Neck supple General: trachea midline Chest inspection of chest normal Resp normal respiratory effort Auscultation: diminished lung sounds; Negative for rales, rhonchi or wheezes Cardio regular rate and regular rhythm GI soft to palpation and non-tender Extremity Extremity Narrative: Wrap lower extremities General Extremity: edema bilateral lower extremity Skin General Skin Exam: venous stasis and dermatitis Neuro CN's II-XII intact bilaterally and no focal motor deficits Psych cooperative Charges/Coding Visit Charges Inpatient E&M: 84790 Subs Hosp L2
--- NOTE | 2023-10-31 13:57 | WOUNDNOTE ---
Removed the RAYA wraps and dressings. no drainage noted. washed legs and feet with soap and water. pat dry. applied aloe vesta and covered with dry dressings. wrapped with kerlix and RAYA wraps. pt tolerated well.
--- NOTE | 2023-10-31 17:46 | PCM.PN.HOSP ---
Reason for Visit Reason for Visit: Diagnoses Unspecified protein-calorie malnutrition (10/30/23) Obesity, unspecified (10/30/23) Schizophrenia, unspecified (10/30/23) Metabolic encephalopathy (10/30/23) Other specified peripheral vascular diseases (10/30/23) Lymphedema, not elsewhere classified (10/30/23) Pneumonia, unspecified organism (10/30/23) Chronic obstructive pulmonary disease with (acute) exacerbation (10/30/23) Acute respiratory failure with hypoxia (10/30/23) Acute respiratory failure with hypercapnia (10/30/23) Other abnormalities of breathing (10/30/23) Other specified abnormal findings of blood chemistry (10/30/23) Tobacco use (10/30/23) Subjective Subjective Patient was seen and examined today, he is currently on 2 L of nasal cannula oxygen. He asked me when he could go home-I told him perhaps on Sunday. Objective Data Objective Data Vital Signs: Vital Signs Temp Pulse Resp BP Pulse Ox O2 Del Method O2 Flow Rate 97.4 F L 76 18 114/63 100 Nasal Cannula 2 10/31/23 07:00 10/31/23 13:54 10/31/23 13:54 10/31/23 07:00 10/31/23 07:00 10/31/23 14:00 10/31/23 14:00 FiO2 30 10/31/23 03:00 Oxygen Flow Rate (L/min) 2 Oxygen Delivery Method Nasal Cannula Weight: 95 kg Body Mass Index (BMI) 31.8 Intake & Output: Intake and Output for Last 24 Hours 10/29/23 10/30/23 10/31/23 23:59 23:59 23:59 Intake Total 0 / 0 2108.33 / 2348.33 2114 / 2114 Output Total 5300 / 5300 1350 / 1350 Balance 0 / 0 -3191.67 / -2951.67 764 / 764 Lab / Micro Data 10/30/23 02:37 10/30/23 02:37 Micro: Microbiology 10/30/23 15:30 Mucosa - Nasopharyngeal Respiratory Panel (PCR) - Final 10/29/23 23:15 Mucosa - Nose SARS-CoV-2, Influenza & RSV (PCR) - Final Physical Exam Const alert and no apparent distress Constitutional Narrative: Patient appears older than stated age, there are signs of some mild to moderate cognitive impairment General Appearance: cooperative and well developed Orientation / Consciousness: awake, oriented to person and oriented to place HEENT normocephalic, head/scalp atraumatic and moist oral mucous membranes Eyes PERRL, EOMs intact bilaterally and conjunctivae normal Neck supple, no JVD, thyroid normal and no carotid bruits General: trachea midline Resp normal respiratory effort, no retractions, no use of accessory muscles and clear to auscultation bilaterally Auscultation: Negative for rales, rhonchi or wheezes Cardio regular rate, regular rhythm, S1 normal heart sound, S2 normal heart sound, no murmurs, no rub and no gallops GI normal to inspection, nondistended, normoactive bowel sounds, soft to palpation, non-tender and non-distended Extremity no clubbing, cyanosis or edema Skin no rashes or lesions noted General Skin Exam: no breakdown Neuro CN's II-XII intact bilaterally, moves all extremities, no focal motor deficits and no sensory deficits noted Sensorium / Orientation: awake, alert, oriented to person and oriented to place Speech: speech normal Psych Psych Narrative: Patient has some mild to moderate cognitive impairment Assessment & Plan Assessment/Plan (1) Acute respiratory failure with hypoxia and hypercapnia: PLAN: Plan 1. Acute combined respiratory failure-most likely from exacerbation of COPD and possibly aspiration-pulmonary medicine has recommended continuing antibiotic coverage for now and completing a 7-day course of Augmentin as an outpatient. Patient is on corticosteroids and aerosol treatments, he may require oxygen at the time of discharge from the hospital. Oxygen will be weaned if possible #2 aspiration pneumonia-secondary to oropharyngeal dysphagia-the etiology of the dysphagia is unknown at this time, patient will need to perform a chin tuck when swallowing, due to his schizophrenia I am not sure how compliant the patient will be in this maneuver. Speech therapy will continue to work with the patient, patient is on Zosyn #3 schizophrenia-complicates care, management, recovery, and prognosis #4 essential hypertension-patient is on amlodipine will be adjusted if necessary #5 bipolar disorder-patient is on lithium #6 exacerbation of COPD-patient is on IV Solu-Medrol and aerosol treatments #7 hyperlipidemia-patient is currently on Lipitor Total clinical time spent by myself addressing patient's medical issues, reviewing all of his data, and collaborating with patient's care team: 35 minutes Charges/Coding Visit Charges Inpatient E&M: 71441 Subs Hosp L2
[2023-10-31] MEDS: Lithium Carbonate 300mg Capsule 600 MG PO (21:03)
[2023-10-31] MEDS: Atorvastatin Calcium 10 MG Tablet PO (21:03)
[2023-10-31] MEDS: Tamsulosin HCl 0.4 MG Capsule PO (21:04)
[2023-10-31] MEDS: Benztropine 2 MG Tablet 1 MG PO (21:05)
[2023-10-31] MEDS: OLANZapine 10 MG Tablet 20 MG PO (21:09)
[2023-10-31] MEDS: Albuterol 2.5 MG/3 ML VIAL.NEB. INHALATION (21:38)
[2023-11-01] VITALS (10 sets, daily range): BP systolic 120–131; BP diastolic 64–72; PULSE 70–91; RESP 12–25; TEMP 36.4–36.7; O2SAT 88–99; BMI 32.1
[2023-11-01] MEDS: Ipratropium/Albuterol Sulfate 3 ML AMPUL.NEB INHALATION ×4 (01:56→19:45)
--- NOTE | 2023-11-01 02:55 | NURSING ---
pt removed bipap mask after approx 3.5h. i'm not wearing it anymore. educated pt on benefits. pt continues to refuse.
[2023-11-01] MEDS: Piperacil/Tazobactam 3.375 GM in 0.9% Normal Saline (50mL MB+) 50 ML IV ×3 (05:38→21:04)
[2023-11-01] MEDS: 0.9% Saline Lock 10 ML Syringe IV (05:39)
[2023-11-01] MEDS: Lactobacillis Acidophilus 1 CAP PO ×4 (09:03→21:04)
[2023-11-01] MEDS: Pantoprazole Sodium 20 MG Tablet PO ×2 (09:03→21:04)
[2023-11-01] MEDS: Enoxaparin 40 MG/0.4 ML Syringe SC (09:03)
[2023-11-01] MEDS: Multivitamins,Ther W-Minerals Tablet 1 TABLET PO (09:03)
[2023-11-01] MEDS: OLANZapine 10 MG Tablet PO (09:03)
[2023-11-01] MEDS: amLODIPine 5 MG Tablet PO (09:03)
[2023-11-01] MEDS: Montelukast 10 MG Tablet PO (09:03)
[2023-11-01] MEDS: Spironolactone 25 MG Tablet PO (09:03)
[2023-11-01] MEDS: Cholecalciferol (VIT D3) 25 MCG TABLET (1,000 UNITS) 50 MCG PO (09:03)
--- NOTE | 2023-11-01 09:11 | WOUNDNOTE ---
Will leave RAYA wraps in place to bilateral lower legs since there are no open areas noted. will monitor. mother present in room.
--- NOTE | 2023-11-01 11:04 | CASEMGMT ---
Social Work- spoke with Karo Mounika Pineda, who states that pt can return as long as he is ambulating and is able to help care for himself. Karo reports oxygen is not an issue as long as [facility] sets up O2 prior to/at discharge. RNCM advised. CLARIBEL Pena
--- NOTE | 2023-11-01 16:55 | PCM.PN.HOSP ---
Reason for Visit Reason for Visit: Diagnoses Unspecified protein-calorie malnutrition (10/30/23) Obesity, unspecified (10/30/23) Schizophrenia, unspecified (10/30/23) Metabolic encephalopathy (10/30/23) Other specified peripheral vascular diseases (10/30/23) Lymphedema, not elsewhere classified (10/30/23) Pneumonia, unspecified organism (10/30/23) Chronic obstructive pulmonary disease with (acute) exacerbation (10/30/23) Acute respiratory failure with hypoxia (10/30/23) Acute respiratory failure with hypercapnia (10/30/23) Other abnormalities of breathing (10/30/23) Other specified abnormal findings of blood chemistry (10/30/23) Tobacco use (10/30/23) Subjective Subjective Patient was seen and examined today, he is presently on 2 L of nasal cannula oxygen. Patient has no complaints of shortness of breath. Objective Data Objective Data Vital Signs: Vital Signs Temp Pulse Resp BP Pulse Ox O2 Del Method O2 Flow Rate 98.0 F 90 16 120/64 95 Nasal Cannula 2 11/01/23 15:00 11/01/23 15:00 11/01/23 15:00 11/01/23 15:00 11/01/23 15:00 11/01/23 15:00 11/01/23 15:00 FiO2 30 11/01/23 01:56 Oxygen Flow Rate (L/min) 2 Oxygen Delivery Method Nasal Cannula Weight: 95.7 kg Body Mass Index (BMI) 32.1 Intake & Output: Intake and Output for Last 24 Hours 10/30/23 10/31/23 11/01/23 23:59 23:59 23:59 Intake Total 2108.33 / 2348.33 3781.17 / 3781.17 3900 / 3900 Output Total 5300 / 5300 2600 / 3850 4650 / 4650 Balance -3191.67 / -2951.67 1181.17 / -68.83 -750 / -750 Lab / Micro Data 10/30/23 02:37 10/30/23 02:37 Micro: Microbiology 10/30/23 15:30 Mucosa - Nasopharyngeal Respiratory Panel (PCR) - Final 10/29/23 23:15 Mucosa - Nose SARS-CoV-2, Influenza & RSV (PCR) - Final Physical Exam Narrative alert and no apparent distress Constitutional Narrative: Patient appears older than stated age, there are signs of some mild to moderate cognitive impairment General Appearance: cooperative and well developed Orientation / Consciousness: awake, oriented to person and oriented to place HEENT normocephalic, head/scalp atraumatic and moist oral mucous membranes Eyes PERRL, EOMs intact bilaterally and conjunctivae normal Neck supple, no JVD, thyroid normal and no carotid bruits General: trachea midline Resp normal respiratory effort, no retractions, no use of accessory muscles and clear to auscultation bilaterally Auscultation: Negative for rales, rhonchi or wheezes Cardio regular rate, regular rhythm, S1 normal heart sound, S2 normal heart sound, no murmurs, no rub and no gallops GI normal to inspection, nondistended, normoactive bowel sounds, soft to palpation, non-tender and non-distended Extremity no clubbing, cyanosis or edema Skin no rashes or lesions noted General Skin Exam: no breakdown Neuro CN's II-XII intact bilaterally, moves all extremities, no focal motor deficits and no sensory deficits noted Sensorium / Orientation: awake, alert, oriented to person and oriented to place Speech: speech normal Psych Psych Narrative: Patient has some mild to moderate cognitive impairment Assessment & Plan Assessment/Plan (1) Acute respiratory failure with hypoxia and hypercapnia: PLAN: Plan 1. Acute combined respiratory failure-most likely from exacerbation of COPD and possibly aspiration-pulmonary medicine has recommended continuing antibiotic coverage for now and completing a 7-day course of Augmentin as an outpatient. Patient is on corticosteroids and aerosol treatments, he may require oxygen at the time of discharge from the hospital. Oxygen will be weaned if possible #2 aspiration pneumonia-secondary to oropharyngeal dysphagia-the etiology of the dysphagia is unknown at this time, patient will need to perform a chin tuck when swallowing, due to his schizophrenia I am not sure how compliant the patient will be in this maneuver. Speech therapy will continue to work with the patient, patient is on Zosyn #3 schizophrenia-complicates care, management, recovery, and prognosis #4 essential hypertension-patient is on amlodipine will be adjusted if necessary #5 bipolar disorder-patient is on lithium #6 exacerbation of COPD-patient is on IV Solu-Medrol and aerosol treatments #7 hyperlipidemia-patient is currently on Lipitor Total clinical time spent by myself addressing patient's medical issues, reviewing all of his data, and collaborating with patient's care team: 35 minutes Charges/Coding Visit Charges Inpatient E&M: 96934 Subs Hosp L2
[2023-11-01] MEDS: OLANZapine 10 MG Tablet 20 MG PO (21:04)
[2023-11-01] MEDS: Atorvastatin Calcium 10 MG Tablet PO (21:04)
[2023-11-01] MEDS: Benztropine 2 MG Tablet 1 MG PO (21:04)
[2023-11-01] MEDS: Tamsulosin HCl 0.4 MG Capsule PO (21:04)
[2023-11-01] MEDS: Lithium Carbonate 300mg Capsule 600 MG PO (21:05)
[2023-11-02] VITALS (10 sets, daily range): BP systolic 107–142; BP diastolic 65–80; PULSE 68–97; RESP 12–21; TEMP 36.3–36.8; O2SAT 90–97; BMI 32.1
[2023-11-02] MEDS: 0.9% Saline Lock 10 ML Syringe IV ×2 (00:30→06:04)
[2023-11-02] MEDS: Ipratropium/Albuterol Sulfate 3 ML AMPUL.NEB INHALATION ×3 (01:25→12:56)
[2023-11-02] MEDS: Piperacil/Tazobactam 3.375 GM in 0.9% Normal Saline (50mL MB+) 50 ML IV ×2 (06:03→14:12)
[2023-11-02] MEDS: amLODIPine 5 MG Tablet PO (09:10)
[2023-11-02] MEDS: Multivitamins,Ther W-Minerals Tablet 1 TABLET PO (09:10)
[2023-11-02] MEDS: Lactobacillis Acidophilus 1 CAP PO ×4 (09:10→23:30)
[2023-11-02] MEDS: Cholecalciferol (VIT D3) 25 MCG TABLET (1,000 UNITS) 50 MCG PO (09:10)
[2023-11-02] MEDS: Spironolactone 25 MG Tablet PO (09:10)
[2023-11-02] MEDS: Montelukast 10 MG Tablet PO (09:11)
[2023-11-02] MEDS: Pantoprazole Sodium 20 MG Tablet PO ×2 (09:11→23:31)
[2023-11-02] MEDS: Enoxaparin 40 MG/0.4 ML Syringe SC (09:11)
[2023-11-02] MEDS: OLANZapine 10 MG Tablet PO (09:11)
--- NOTE | 2023-11-02 09:49 | CASEMGMT ---
Discharge Planning VM left at [facility] for either Karo or Margie to verify that pt can return home with current speech orders. Elisabet Mcmillan DC Planning Asst.
--- NOTE | 2023-11-02 10:45 | CASEMGMT ---
Discharge Planning A list of?SNF providers including quality and resource use data and consistent with the patient's preferred geographic region, medical needs, and insurance network was created in [employer] Guide.? This list was provided to the SW. Elisabet Mcmillan Discharge Planning Asst.
--- NOTE | 2023-11-02 10:46 | CASEMGMT ---
Discharge Planning Per Margie at [facility], they had not reviewed ST notes and was unaware of current supervision orders. Because of this, pt will need a snf stay. He would be able to return when diet orders are upgraded. SW updated. Elisabet Mcmillan DC Planning Asst.
--- NOTE | 2023-11-02 12:00 | CASEMGMT ---
Social Work [facility] in unable to accept pt back due to Speech Therapy restrictions for supervised feed with all oral intake. SW met with pt and his mother and explained this. Pt and mother frustrated that pt cannot return to his home. SW provided emotional support. SW discussed need for SNF for short period of time until pt swallowing improves and then pt can return to [facility]. Pt and mother inquiring if pt's girlfriend Margie who lives in the independent living at [facility] can provide the needed supervision during meals. Pt's mother would bring Margie to the hospital for this training. SW spoke with speech therapist who agrees if Margie comes in and is able to learn supervision techniques, pt could return to [facility] with her supervision. Phone call to Karo at [facility] and inquired about the same. Karo stating that this is an unacceptable plan and pt cannot return to [facility] if he needs supervision while eating and drinking even if Margie is present. SW updated pt and mother. Pt and mother frustrated but understanding. A list of providers including quality and resource use data and consistent with the patient?s preferred geographic region, medical needs, and insurance network were provided from the [employer]Port Guide. Pt preferred providers are 1. [facility] 2. [facility] 3. [facility]. DC assistant at surgery updated and referrals to be made. Precert will be needed prior to pt discharge. Phone call to pt's Direction casework manager Miryam Tejada and notified of discharge plan. SW to update Miryam at time of discharge with dc destination. Plan: SNF, pending acceptance and precert CLARIBEL Law
--- NOTE | 2023-11-02 12:39 | CASEMGMT ---
Addendum entered by Elisabet Mcmillan 11/02/23 15:57: CC declined d/t no male beds. Elisabet Mcmillan DC Planning Asst. Original Note: Discharge Planning Referral sent to [facility] via [facility]. Elisabet Mcmillan DC Planning Asst.
--- NOTE | 2023-11-02 14:59 | PN.HOSP_ITS ---
Reason for Visit Reason for Visit: Diagnoses Unspecified protein-calorie malnutrition (10/30/23) Obesity, unspecified (10/30/23) Schizophrenia, unspecified (10/30/23) Metabolic encephalopathy (10/30/23) Other specified peripheral vascular diseases (10/30/23) Lymphedema, not elsewhere classified (10/30/23) Pneumonia, unspecified organism (10/30/23) Chronic obstructive pulmonary disease with (acute) exacerbation (10/30/23) Acute respiratory failure with hypoxia (10/30/23) Acute respiratory failure with hypercapnia (10/30/23) Other abnormalities of breathing (10/30/23) Other specified abnormal findings of blood chemistry (10/30/23) Tobacco use (10/30/23) Subjective Subjective Patient was seen and examined today, he remains on 2 L of nasal cannula oxygen. Due to the fact that he must perform certain maneuvers while swallowing, he cannot return to assisted living. We will have to obtain permission for the patient to go to a [facility] facility at least short-term. Objective Data Objective Data Vital Signs: Vital Signs Temp Pulse Resp BP Pulse Ox O2 Del Method O2 Flow Rate 97.4 F L 97 16 142/80 H 96 Nasal Cannula 2 11/02/23 14:00 11/02/23 14:31 11/02/23 14:31 11/02/23 14:00 11/02/23 14:00 11/02/23 14:31 11/02/23 14:31 FiO2 30 11/01/23 22:48 Oxygen Flow Rate (L/min) 2 Oxygen Delivery Method Nasal Cannula Weight: 95.889 kg Body Mass Index (BMI) 32.1 Intake & Output: Intake and Output for Last 24 Hours 10/31/23 11/01/23 11/02/23 23:59 23:59 23:59 Intake Total 3781.17 / 3781.17 5550 / 6550 2100 / 2100 Output Total 2600 / 3850 6800 / 8250 2450 / 2450 Balance 1181.17 / -68.83 -1250 / -1700 -350 / -350 Lab / Micro Data 10/30/23 02:37 10/30/23 02:37 Micro: Microbiology 10/30/23 15:30 Mucosa - Nasopharyngeal Respiratory Panel (PCR) - Final 10/29/23 23:15 Mucosa - Nose SARS-CoV-2, Influenza & RSV (PCR) - Final Physical Exam Narrative alert and no apparent distress Constitutional Narrative: Patient appears older than stated age, there are signs of some mild to moderate cognitive impairment General Appearance: cooperative and well developed Orientation / Consciousness: awake, oriented to person and oriented to place HEENT normocephalic, head/scalp atraumatic and moist oral mucous membranes Eyes PERRL, EOMs intact bilaterally and conjunctivae normal Neck supple, no JVD, thyroid normal and no carotid bruits General: trachea midline Resp normal respiratory effort, no retractions, no use of accessory muscles and clear to auscultation bilaterally Auscultation: Negative for rales, rhonchi or wheezes Cardio regular rate, regular rhythm, S1 normal heart sound, S2 normal heart sound, no murmurs, no rub and no gallops GI normal to inspection, nondistended, normoactive bowel sounds, soft to palpation, non-tender and non-distended Extremity no clubbing, cyanosis or edema Skin no rashes or lesions noted General Skin Exam: no breakdown Neuro CN's II-XII intact bilaterally, moves all extremities, no focal motor deficits and no sensory deficits noted Sensorium / Orientation: awake, alert, oriented to person and oriented to place Speech: speech normal Psych Psych Narrative: Patient has some mild to moderate cognitive impairment Assessment & Plan Assessment/Plan (1) Acute respiratory failure with hypoxia and hypercapnia: PLAN: Plan 1. Acute combined respiratory failure-most likely from exacerbation of COPD and possibly aspiration-pulmonary medicine has recommended continuing antibiotic coverage for now and completing a 7-day course of Augmentin as an outpatient. Patient is on corticosteroids and aerosol treatments, he may require oxygen at the time of discharge from the hospital. Oxygen will be weaned if possible #2 aspiration pneumonia-secondary to oropharyngeal dysphagia-the etiology of the dysphagia is unknown at this time, patient will need to perform a chin tuck when swallowing, due to his schizophrenia I am not sure how compliant the patient will be in this maneuver. Speech therapy will continue to work with the patient, patient will be transitioned over to Augmentin while in the hospital, his Zosyn will be discontinued #3 schizophrenia-complicates care, management, recovery, and prognosis #4 essential hypertension-patient is on amlodipine will be adjusted if necessary #5 bipolar disorder-patient is on lithium #6 exacerbation of COPD-I have decided to transition the patient over to oral prednisone, Solu-Medrol will be stopped #7 hyperlipidemia-patient is currently on Lipitor Total clinical time spent by myself addressing patient's medical issues, reviewing all of his data, and collaborating with patient's care team: 35 minutes Charges/Coding Visit Charges Inpatient E&M: 29050 Subs Hosp L2
--- NOTE | 2023-11-02 15:57 | CASEMGMT ---
Discharge Planning Referral sent to [facility] Elisabet Mcmillan DC Planning Asst.
--- NOTE | 2023-11-02 17:10 | CASEMGMT ---
Social Work SW met with pt and mother that [facility] is unable to accept and [facility] is able to accept. Pt and mother agreeable for placement at [facility]. Precert will be needed for admission to [facility]. SW requested precert be started however, pt will be here through the weekend due to precert. SW to follow up on Sunday. Plan: [facility], pending precert CLARIBEL Law
[2023-11-02] MEDS: Lithium Carbonate 300mg Capsule 600 MG PO (23:29)
[2023-11-02] MEDS: Atorvastatin Calcium 10 MG Tablet PO (23:30)
[2023-11-02] MEDS: Tamsulosin HCl 0.4 MG Capsule PO (23:30)
[2023-11-02] MEDS: OLANZapine 10 MG Tablet 20 MG PO (23:32)
[2023-11-02] MEDS: Benztropine 2 MG Tablet 1 MG PO (23:34)
[2023-11-02] MEDS: Amox/Clavulanate 875 MG Tablet PO (23:42)
[2023-11-03] VITALS (14 sets, daily range): BP systolic 118–131; BP diastolic 69–76; PULSE 71–94; RESP 18–20; TEMP 36.5–37; O2SAT 87–97; BMI 32.0
[2023-11-03] MEDS: 0.9% Saline Lock 10 ML Syringe IV ×2 (06:53→22:32)
[2023-11-03] MEDS: Ipratropium/Albuterol Sulfate 3 ML AMPUL.NEB INHALATION ×3 (07:12→20:37)
--- NOTE | 2023-11-03 07:59 | NURSING ---
pt has put call light on 10x in 1 hr for a drink-have tried to educate pt that he can not have unlimited water intake d/t low Na+ and also he is silently aspiratin, he tries to tuck chin in after each swallow, he i being given 100 mls every hour (50ml q 30 min) more with meals
[2023-11-03] MEDS: Pantoprazole Sodium 20 MG Tablet PO ×2 (08:39→22:12)
[2023-11-03] MEDS: Amox/Clavulanate 875 MG Tablet PO ×2 (08:39→16:55)
[2023-11-03] MEDS: amLODIPine 5 MG Tablet PO (08:39)
[2023-11-03] MEDS: Enoxaparin 40 MG/0.4 ML Syringe SC (08:40)
[2023-11-03] MEDS: Multivitamins,Ther W-Minerals Tablet 1 TABLET PO (08:40)
[2023-11-03] MEDS: Lactobacillis Acidophilus 1 CAP PO ×4 (08:41→22:09)
[2023-11-03] MEDS: Spironolactone 25 MG Tablet PO (08:42)
[2023-11-03] MEDS: Montelukast 10 MG Tablet PO (08:43)
[2023-11-03] MEDS: Cholecalciferol (VIT D3) 25 MCG TABLET (1,000 UNITS) 50 MCG PO (08:43)
[2023-11-03] MEDS: OLANZapine 10 MG Tablet PO (08:44)
[2023-11-03] MEDS: predniSONE 20 MG Tablet 40 MG PO (08:47)
--- NOTE | 2023-11-03 14:35 | PCM.PN.HOSP ---
Reason for Visit Reason for Visit: Diagnoses Unspecified protein-calorie malnutrition (10/30/23) Obesity, unspecified (10/30/23) Schizophrenia, unspecified (10/30/23) Metabolic encephalopathy (10/30/23) Other specified peripheral vascular diseases (10/30/23) Lymphedema, not elsewhere classified (10/30/23) Pneumonia, unspecified organism (10/30/23) Chronic obstructive pulmonary disease with (acute) exacerbation (10/30/23) Acute respiratory failure with hypoxia (10/30/23) Acute respiratory failure with hypercapnia (10/30/23) Other abnormalities of breathing (10/30/23) Other specified abnormal findings of blood chemistry (10/30/23) Tobacco use (10/30/23) Subjective Subjective Patient was seen and examined today, he is currently on 2 L of oxygen and appears comfortable, his mother is in the room at the time my examination Objective Data Objective Data Vital Signs: Vital Signs Temp Pulse Resp BP Pulse Ox O2 Del Method O2 Flow Rate 98.1 F 80 18 131/69 H 94 Nasal Cannula 2 11/03/23 13:45 11/03/23 13:47 11/03/23 13:47 11/03/23 13:45 11/03/23 13:47 11/03/23 13:47 11/03/23 13:47 FiO2 30 11/02/23 22:15 Oxygen Flow Rate (L/min) 2 Oxygen Delivery Method Nasal Cannula Weight: 95.889 kg Body Mass Index (BMI) 32.0 Intake & Output: Intake and Output for Last 24 Hours 11/01/23 11/02/23 11/03/23 23:59 23:59 23:59 Intake Total 5550 / 6550 4950 / 4950 3000 / 3000 Output Total 6800 / 8250 7250 / 7250 3200 / 3200 Balance -1250 / -1700 -2300 / -2300 -200 / -200 Lab / Micro Data 10/30/23 02:37 10/30/23 02:37 Micro: Microbiology 10/30/23 15:30 Mucosa - Nasopharyngeal Respiratory Panel (PCR) - Final 10/29/23 23:15 Mucosa - Nose SARS-CoV-2, Influenza & RSV (PCR) - Final Physical Exam Narrative alert and no apparent distress Constitutional Narrative: Patient appears older than stated age, there are signs of some mild to moderate cognitive impairment General Appearance: cooperative and well developed Orientation / Consciousness: awake, oriented to person and oriented to place HEENT normocephalic, head/scalp atraumatic and moist oral mucous membranes Eyes PERRL, EOMs intact bilaterally and conjunctivae normal Neck supple, no JVD, thyroid normal and no carotid bruits General: trachea midline Resp normal respiratory effort, no retractions, no use of accessory muscles and clear to auscultation bilaterally Auscultation: Negative for rales, rhonchi or wheezes Cardio regular rate, regular rhythm, S1 normal heart sound, S2 normal heart sound, no murmurs, no rub and no gallops GI normal to inspection, nondistended, normoactive bowel sounds, soft to palpation, non-tender and non-distended Extremity no clubbing, cyanosis or edema Skin no rashes or lesions noted General Skin Exam: no breakdown Neuro CN's II-XII intact bilaterally, moves all extremities, no focal motor deficits and no sensory deficits noted Sensorium / Orientation: awake, alert, oriented to person and oriented to place Speech: speech normal Psych Psych Narrative: Patient has some mild to moderate cognitive impairment Assessment & Plan Assessment/Plan (1) Acute respiratory failure with hypoxia and hypercapnia: PLAN: Plan 1. Acute combined respiratory failure-most likely from exacerbation of COPD and possibly aspiration-pulmonary medicine has recommended continuing antibiotic coverage for now and completing a 7-day course of Augmentin as an outpatient. Patient is on corticosteroids and aerosol treatments, he may require oxygen at the time of discharge from the hospital. Oxygen will be weaned if possible #2 aspiration pneumonia-secondary to oropharyngeal dysphagia-the etiology of the dysphagia is unknown at this time, patient will need to perform a chin tuck when swallowing, due to his schizophrenia I am not sure how compliant the patient will be in this maneuver. Speech therapy will continue to work with the patient. #3 schizophrenia-complicates care, management, recovery, and prognosis #4 essential hypertension-patient is on amlodipine will be adjusted if necessary #5 bipolar disorder-patient is on lithium #6 exacerbation of COPD-I have decided to transition the patient over to oral prednisone, Solu-Medrol will be stopped #7 hyperlipidemia-patient is currently on Lipitor Total clinical time spent by myself addressing patient's medical issues, reviewing all of his data, and collaborating with patient's care team: 35 minutes Charges/Coding Visit Charges Inpatient E&M: 04152 Subs Hosp L2
[2023-11-03] MEDS: Benztropine 2 MG Tablet 1 MG PO (22:09)
[2023-11-03] MEDS: Atorvastatin Calcium 10 MG Tablet PO (22:11)
[2023-11-03] MEDS: Tamsulosin HCl 0.4 MG Capsule PO (22:11)
[2023-11-03] MEDS: Lithium Carbonate 300mg Capsule 600 MG PO (22:12)
[2023-11-03] MEDS: OLANZapine 10 MG Tablet 20 MG PO (22:33)
[2023-11-04] VITALS (13 sets, daily range): BP systolic 122–143; BP diastolic 71–82; PULSE 65–94; RESP 16–20; TEMP 36.4–36.8; O2SAT 81–98; BMI 32.8
[2023-11-04] MEDS: Ipratropium/Albuterol Sulfate 3 ML AMPUL.NEB INHALATION ×4 (01:43→20:02)
--- NOTE | 2023-11-04 01:43 | CPS ---
Pt is refusing to wear BiPAP tonight.
[2023-11-04] MEDS: Lactobacillis Acidophilus 1 CAP PO ×4 (08:45→21:52)
[2023-11-04] MEDS: Amox/Clavulanate 875 MG Tablet PO ×2 (08:45→17:12)
[2023-11-04] MEDS: Multivitamins,Ther W-Minerals Tablet 1 TABLET PO (08:45)
[2023-11-04] MEDS: predniSONE 20 MG Tablet 40 MG PO (08:45)
[2023-11-04] MEDS: Enoxaparin 40 MG/0.4 ML Syringe SC (08:46)
[2023-11-04] MEDS: Spironolactone 25 MG Tablet PO (08:46)
[2023-11-04] MEDS: amLODIPine 5 MG Tablet PO (08:47)
[2023-11-04] MEDS: Cholecalciferol (VIT D3) 25 MCG TABLET (1,000 UNITS) 50 MCG PO (08:48)
[2023-11-04] MEDS: Montelukast 10 MG Tablet PO (08:48)
[2023-11-04] MEDS: Pantoprazole Sodium 20 MG Tablet PO ×2 (08:48→21:52)
[2023-11-04] MEDS: OLANZapine 10 MG Tablet PO (08:49)
--- NOTE | 2023-11-04 11:19 | PCM.PN.HOSP ---
Reason for Visit Reason for Visit: Diagnoses Unspecified protein-calorie malnutrition (10/30/23) Obesity, unspecified (10/30/23) Schizophrenia, unspecified (10/30/23) Metabolic encephalopathy (10/30/23) Other specified peripheral vascular diseases (10/30/23) Lymphedema, not elsewhere classified (10/30/23) Pneumonia, unspecified organism (10/30/23) Chronic obstructive pulmonary disease with (acute) exacerbation (10/30/23) Acute respiratory failure with hypoxia (10/30/23) Acute respiratory failure with hypercapnia (10/30/23) Other abnormalities of breathing (10/30/23) Other specified abnormal findings of blood chemistry (10/30/23) Tobacco use (10/30/23) Subjective Subjective Patient was seen and examined today, he is currently on 3 L of oxygen at rest and appears comfortable. Objective Data Objective Data Vital Signs: Vital Signs Temp Pulse Resp BP Pulse Ox O2 Del Method O2 Flow Rate 98.3 F 94 16 143/82 H 93 Nasal Cannula 3 11/04/23 08:10 11/04/23 08:16 11/04/23 08:16 11/04/23 08:10 11/04/23 10:08 11/04/23 08:16 11/04/23 10:08 FiO2 30 11/02/23 22:15 Oxygen Flow Rate (L/min) [ 3 AMBULATING with Oxygen #1] Oxygen Flow Rate (L/min) 2.5 Oxygen Delivery Method Nasal Cannula Weight: 98.3 kg Body Mass Index (BMI) 32.8 Intake & Output: Intake and Output for Last 24 Hours 11/02/23 11/03/23 11/04/23 23:59 23:59 23:59 Intake Total 4950 / 4950 4000 / 5000 2000 / 2000 Output Total 7250 / 7250 4200 / 4850 5100 / 5100 Balance -2300 / -2300 -200 / 150 -3100 / -3100 Lab / Micro Data 10/30/23 02:37 10/30/23 02:37 Micro: Microbiology 10/30/23 15:30 Mucosa - Nasopharyngeal Respiratory Panel (PCR) - Final 10/29/23 23:15 Mucosa - Nose SARS-CoV-2, Influenza & RSV (PCR) - Final Physical Exam Narrative alert and no apparent distress Constitutional Narrative: Patient appears older than stated age, there are signs of some mild to moderate cognitive impairment General Appearance: cooperative and well developed Orientation / Consciousness: awake, oriented to person and oriented to place HEENT normocephalic, head/scalp atraumatic and moist oral mucous membranes Eyes PERRL, EOMs intact bilaterally and conjunctivae normal Neck supple, no JVD, thyroid normal and no carotid bruits General: trachea midline Resp normal respiratory effort, no retractions, no use of accessory muscles and clear to auscultation bilaterally Auscultation: Negative for rales, rhonchi or wheezes Cardio regular rate, regular rhythm, S1 normal heart sound, S2 normal heart sound, no murmurs, no rub and no gallops GI normal to inspection, nondistended, normoactive bowel sounds, soft to palpation, non-tender and non-distended Extremity no clubbing, cyanosis or edema Skin no rashes or lesions noted General Skin Exam: no breakdown Neuro CN's II-XII intact bilaterally, moves all extremities, no focal motor deficits and no sensory deficits noted Sensorium / Orientation: awake, alert, oriented to person and oriented to place Speech: speech normal Psych Psych Narrative: Patient has some mild to moderate cognitive impairment Assessment & Plan Assessment/Plan (1) Acute respiratory failure with hypoxia and hypercapnia: PLAN: Plan 1. Acute combined respiratory failure-most likely from exacerbation of COPD and possibly aspiration-pulmonary medicine has recommended continuing antibiotic coverage for now and completing a 7-day course of Augmentin as an outpatient. Patient is on corticosteroids and aerosol treatments, he may require oxygen at the time of discharge from the hospital. Oxygen will be weaned if possible #2 aspiration pneumonia-secondary to oropharyngeal dysphagia-the etiology of the dysphagia is unknown at this time, patient will need to perform a chin tuck when swallowing, due to his schizophrenia I am not sure how compliant the patient will be in this maneuver. Speech therapy will continue to work with the patient. Because of this and will necessitate him being placed in a snf facility for supervision when he eats. #3 schizophrenia-complicates care, management, recovery, and prognosis #4 essential hypertension-patient is on amlodipine will be adjusted if necessary #5 bipolar disorder-patient is on lithium #6 exacerbation of COPD-patient is on oral steroids and aerosol treatments #7 hyperlipidemia-patient is currently on Lipitor Total clinical time spent by myself addressing patient's medical issues, reviewing all of his data, and collaborating with patient's care team: 35 minutes Charges/Coding Visit Charges Inpatient E&M: 83844 Subs Hosp L2
[2023-11-04] MEDS: Tamsulosin HCl 0.4 MG Capsule PO (21:51)
[2023-11-04] MEDS: OLANZapine 10 MG Tablet 20 MG PO (21:51)
[2023-11-04] MEDS: Atorvastatin Calcium 10 MG Tablet PO (21:52)
[2023-11-04] MEDS: Benztropine 2 MG Tablet 1 MG PO (21:52)
[2023-11-04] MEDS: 0.9% Saline Lock 10 ML Syringe IV (21:52)
[2023-11-04] MEDS: Lithium Carbonate 300mg Capsule 600 MG PO (21:52)
[2023-11-05] VITALS (9 sets, daily range): BP systolic 113–139; BP diastolic 62–80; PULSE 64–90; RESP 18–20; TEMP 36.6–36.9; O2SAT 93–95; BMI 31.6
[2023-11-05] MEDS: Ipratropium/Albuterol Sulfate 3 ML AMPUL.NEB INHALATION ×3 (06:48→19:55)
[2023-11-05] MEDS: predniSONE 20 MG Tablet 40 MG PO (08:16)
[2023-11-05] MEDS: Enoxaparin 40 MG/0.4 ML Syringe SC (08:16)
[2023-11-05] MEDS: Amox/Clavulanate 875 MG Tablet PO ×2 (08:17→17:06)
[2023-11-05] MEDS: Pantoprazole Sodium 20 MG Tablet PO ×2 (08:17→21:21)
[2023-11-05] MEDS: Montelukast 10 MG Tablet PO (08:17)
[2023-11-05] MEDS: Lactobacillis Acidophilus 1 CAP PO ×4 (08:17→21:21)
[2023-11-05] MEDS: Cholecalciferol (VIT D3) 25 MCG TABLET (1,000 UNITS) 50 MCG PO (08:17)
[2023-11-05] MEDS: Spironolactone 25 MG Tablet PO (08:17)
[2023-11-05] MEDS: Multivitamins,Ther W-Minerals Tablet 1 TABLET PO (08:17)
[2023-11-05] MEDS: amLODIPine 5 MG Tablet PO (08:17)
[2023-11-05] MEDS: OLANZapine 10 MG Tablet PO (08:18)
--- NOTE | 2023-11-05 09:06 | PN.HOSP_ITS ---
Reason for Visit Reason for Visit: Diagnoses Unspecified protein-calorie malnutrition (10/30/23) Obesity, unspecified (10/30/23) Schizophrenia, unspecified (10/30/23) Metabolic encephalopathy (10/30/23) Other specified peripheral vascular diseases (10/30/23) Lymphedema, not elsewhere classified (10/30/23) Pneumonia, unspecified organism (10/30/23) Chronic obstructive pulmonary disease with (acute) exacerbation (10/30/23) Acute respiratory failure with hypoxia (10/30/23) Acute respiratory failure with hypercapnia (10/30/23) Other abnormalities of breathing (10/30/23) Other specified abnormal findings of blood chemistry (10/30/23) Tobacco use (10/30/23) Subjective Subjective Patient was seen and examined today, his mother is in the room at the time my examination, patient does not appear to be in any respiratory distress. Objective Data Objective Data Vital Signs: Vital Signs Temp Pulse Resp BP Pulse Ox O2 Del Method O2 Flow Rate 98.1 F 80 18 139/79 H 93 Nasal Cannula 2 11/05/23 03:49 11/05/23 06:49 11/05/23 06:49 11/05/23 03:49 11/05/23 06:49 11/05/23 06:49 11/05/23 06:49 FiO2 30 11/02/23 22:15 Oxygen Flow Rate (L/min) [ 3 AMBULATING with Oxygen #1] Oxygen Flow Rate (L/min) 2 Oxygen Delivery Method Nasal Cannula Weight: 94.8 kg Body Mass Index (BMI) 31.6 Intake & Output: Intake and Output for Last 24 Hours 11/03/23 11/04/23 11/05/23 23:59 23:59 23:59 Intake Total 4000 / 5000 1999 / 1999 480 / 480 Output Total 4200 / 4850 8350 / 8350 2250 / 2250 Balance -200 / 150 -6350 / -6350 -1770 / -1770 Lab / Micro Data 10/30/23 02:37 10/30/23 02:37 Micro: Microbiology 10/30/23 15:30 Mucosa - Nasopharyngeal Respiratory Panel (PCR) - Final 10/29/23 23:15 Mucosa - Nose SARS-CoV-2, Influenza & RSV (PCR) - Final Physical Exam Narrative alert and no apparent distress Constitutional Narrative: Patient appears older than stated age, there are signs of some mild to moderate cognitive impairment General Appearance: cooperative and well developed Orientation / Consciousness: awake, oriented to person and oriented to place HEENT normocephalic, head/scalp atraumatic and moist oral mucous membranes Eyes PERRL, EOMs intact bilaterally and conjunctivae normal Neck supple, no JVD, thyroid normal and no carotid bruits General: trachea midline Resp normal respiratory effort, no retractions, no use of accessory muscles and clear to auscultation bilaterally Auscultation: Negative for rales, rhonchi or wheezes Cardio regular rate, regular rhythm, S1 normal heart sound, S2 normal heart sound, no murmurs, no rub and no gallops GI normal to inspection, nondistended, normoactive bowel sounds, soft to palpation, non-tender and non-distended Extremity no clubbing, cyanosis or edema Skin no rashes or lesions noted General Skin Exam: no breakdown Neuro CN's II-XII intact bilaterally, moves all extremities, no focal motor deficits and no sensory deficits noted Sensorium / Orientation: awake, alert, oriented to person and oriented to place Speech: speech normal Psych Psych Narrative: Patient has some mild to moderate cognitive impairment Assessment & Plan Assessment/Plan (1) Acute respiratory failure with hypoxia and hypercapnia: PLAN: Plan 1. Acute combined respiratory failure-most likely from exacerbation of COPD and possibly aspiration-pulmonary medicine has recommended continuing antibiotic coverage for now and completing a 7-day course of Augmentin as an outpatient. Patient is on corticosteroids and aerosol treatments, he may require oxygen at the time of discharge from the hospital. Oxygen will be weaned if possible, patient is currently on 2 L via nasal cannula, I have elected to decrease his prednisone to 20 mg daily starting tomorrow. #2 aspiration pneumonia-secondary to oropharyngeal dysphagia-the etiology of the dysphagia is unknown at this time, patient will need to perform a chin tuck when swallowing, due to his schizophrenia I am not sure how compliant the patient will be in this maneuver. Speech therapy will continue to work with the patient. Because of this and will necessitate him being placed in a senior care facility for supervision when he eats. #3 schizophrenia-complicates care, management, recovery, and prognosis #4 essential hypertension-patient is on amlodipine will be adjusted if necessary #5 bipolar disorder-patient is on lithium #6 exacerbation of COPD-patient is on oral steroids and aerosol treatments #7 hyperlipidemia-patient is currently on Lipitor Total clinical time spent by myself addressing patient's medical issues, reviewing all of his data, and collaborating with patient's care team: 35 minutes Charges/Coding Visit Charges Inpatient E&M: 86369 Subs Hosp L2
[2023-11-05] MEDS: Benztropine 2 MG Tablet 1 MG PO (21:21)
[2023-11-05] MEDS: OLANZapine 10 MG Tablet 20 MG PO (21:21)
[2023-11-05] MEDS: Atorvastatin Calcium 10 MG Tablet PO (21:21)
[2023-11-05] MEDS: Lithium Carbonate 300mg Capsule 600 MG PO (21:21)
[2023-11-05] MEDS: Tamsulosin HCl 0.4 MG Capsule PO (21:21)
[2023-11-06 03:15] VITALS: BP 127/72; PULSE 64; RESP 18; TEMP 36.7; O2SAT 92
[2023-11-06 05:13] VITALS: BMI 29.8
[2023-11-06 07:10] VITALS: O2SAT 94
[2023-11-06 08:31] VITALS: BP 126/70; PULSE 64; RESP 16; TEMP 36.7; O2SAT 96
[2023-11-06] MEDS: Amox/Clavulanate 875 MG Tablet PO ×2 (08:42→17:44)
[2023-11-06] MEDS: Multivitamins,Ther W-Minerals Tablet 1 TABLET PO (08:42)
[2023-11-06] MEDS: predniSONE 20 MG Tablet PO (08:42)
--- NOTE | 2023-11-06 09:19 | CASEMGMT ---
Addendum entered by Elisabet Mcmillan 11/07/23 16:32: Patient was denied skilled stay but can admit intermediate when MR. Elisabet Mcmillan DC Planning Asst. Original Note: Discharge Planning Updates sent to [facility]. Precert to be submitted. Elisabet Mcmillan DC Planning Asst.
--- NOTE | 2023-11-06 09:44 | WOUNDNOTE ---
skin photo: left lower leg
--- NOTE | 2023-11-06 09:45 | WOUNDNOTE ---
skin photo: right lower leg
--- NOTE | 2023-11-06 09:46 | WOUNDNOTE ---
In to reassess bilateral lower legs and feet. removed the RAYA wraps. no opens areas noted. some dry patchy areas noted. washed legs and feet with soap and water. pat dry. applied aloe vesta and reapplied the RAYA wraps. pt tolerated well. see skin photos.
[2023-11-06] MEDS: Spironolactone 25 MG Tablet PO (10:38)
[2023-11-06] MEDS: Lactobacillis Acidophilus 1 CAP PO ×4 (10:38→21:04)
[2023-11-06] MEDS: Enoxaparin 40 MG/0.4 ML Syringe SC (10:38)
[2023-11-06] MEDS: amLODIPine 5 MG Tablet PO (10:39)
[2023-11-06] MEDS: Cholecalciferol (VIT D3) 25 MCG TABLET (1,000 UNITS) 50 MCG PO (10:40)
[2023-11-06] MEDS: Montelukast 10 MG Tablet PO (10:40)
[2023-11-06] MEDS: OLANZapine 10 MG Tablet PO (10:40)
[2023-11-06] MEDS: Pantoprazole Sodium 20 MG Tablet PO ×2 (10:40→21:04)
[2023-11-06 14:25] VITALS: BP 115/69; PULSE 89; RESP 18; TEMP 36.9; O2SAT 96
--- NOTE | 2023-11-06 17:22 | PCM.PN.HOSP ---
Reason for Visit Reason for Visit: Diagnoses Unspecified protein-calorie malnutrition (10/30/23) Obesity, unspecified (10/30/23) Schizophrenia, unspecified (10/30/23) Metabolic encephalopathy (10/30/23) Other specified peripheral vascular diseases (10/30/23) Lymphedema, not elsewhere classified (10/30/23) Pneumonia, unspecified organism (10/30/23) Chronic obstructive pulmonary disease with (acute) exacerbation (10/30/23) Acute respiratory failure with hypoxia (10/30/23) Acute respiratory failure with hypercapnia (10/30/23) Other abnormalities of breathing (10/30/23) Other specified abnormal findings of blood chemistry (10/30/23) Tobacco use (10/30/23) Subjective Subjective Patient was seen and examined, he is currently on 2 L of oxygen, his mother is on the room at the time my examination. We still have not received permission from his insurance carrier for transfer to a nursing facility. Objective Data Objective Data Vital Signs: Vital Signs Temp Pulse Resp BP Pulse Ox O2 Del Method O2 Flow Rate 98.5 F 89 18 115/69 96 Nasal Cannula 2 11/06/23 14:25 11/06/23 14:25 11/06/23 14:25 11/06/23 14:25 11/06/23 14:25 11/06/23 14:25 11/06/23 14:25 FiO2 30 11/02/23 22:15 Oxygen Flow Rate (L/min) [ 3 AMBULATING with Oxygen #1] Oxygen Flow Rate (L/min) 2 Oxygen Delivery Method Nasal Cannula Weight: 89.4 kg Body Mass Index (BMI) 29.8 Intake & Output: Intake and Output for Last 24 Hours 11/04/23 11/05/23 11/06/23 23:59 23:59 23:59 Intake Total 1999 / 1999 480 / 2480 2400 / 2400 Output Total 8350 / 8350 7000 / 85494 6350 / 6350 Balance -6350 / -6350 -6520 / -8120 -3950 / -3950 Lab / Micro Data 10/30/23 02:37 10/30/23 02:37 Micro: Microbiology 10/30/23 15:30 Mucosa - Nasopharyngeal Respiratory Panel (PCR) - Final 10/29/23 23:15 Mucosa - Nose SARS-CoV-2, Influenza & RSV (PCR) - Final Physical Exam Narrative alert and no apparent distress Constitutional Narrative: Patient appears older than stated age, there are signs of some mild to moderate cognitive impairment General Appearance: cooperative and well developed Orientation / Consciousness: awake, oriented to person and oriented to place HEENT normocephalic, head/scalp atraumatic and moist oral mucous membranes Eyes PERRL, EOMs intact bilaterally and conjunctivae normal Neck supple, no JVD, thyroid normal and no carotid bruits General: trachea midline Resp normal respiratory effort, no retractions, no use of accessory muscles and clear to auscultation bilaterally Auscultation: Negative for rales, rhonchi or wheezes Cardio regular rate, regular rhythm, S1 normal heart sound, S2 normal heart sound, no murmurs, no rub and no gallops GI normal to inspection, nondistended, normoactive bowel sounds, soft to palpation, non-tender and non-distended Extremity no clubbing, cyanosis or edema Skin no rashes or lesions noted General Skin Exam: no breakdown Neuro CN's II-XII intact bilaterally, moves all extremities, no focal motor deficits and no sensory deficits noted Sensorium / Orientation: awake, alert, oriented to person and oriented to place Speech: speech normal Psych Psych Narrative: Patient has some mild to moderate cognitive impairment Assessment & Plan Assessment/Plan (1) Acute respiratory failure with hypoxia and hypercapnia: PLAN: Plan 1. Acute combined respiratory failure-most likely from exacerbation of COPD and possibly aspiration-pulmonary medicine has recommended continuing antibiotic coverage for now and completing a 7-day course of Augmentin as an outpatient-at this point he will need approximately 4 days of outpatient antibiotics when he goes to the nursing facility. Patient is on corticosteroids and aerosol treatments, he may require oxygen at the time of discharge from the hospital. Oxygen will be weaned if possible, patient is currently on 2 L via nasal cannula, I have elected to decrease his prednisone to 20 mg daily-this can be continued for 3 more days after discharge to the custodial.. #2 aspiration pneumonia-secondary to oropharyngeal dysphagia-the etiology of the dysphagia is unknown at this time, patient will need to perform a chin tuck when swallowing, due to his schizophrenia I am not sure how compliant the patient will be in this maneuver. Speech therapy will continue to work with the patient. Because of this and will necessitate him being placed in a detention facility for supervision when he eats. #3 schizophrenia-complicates care, management, recovery, and prognosis #4 essential hypertension-patient is on amlodipine will be adjusted if necessary #5 bipolar disorder-patient is on lithium #6 exacerbation of COPD-patient is on oral steroids and aerosol treatments #7 hyperlipidemia-patient is currently on Lipitor Total clinical time spent by myself addressing patient's medical issues, reviewing all of his data, and collaborating with patient's care team: 35 minutes Charges/Coding Visit Charges Inpatient E&M: 58829 Subs Hosp L2
--- NOTE | 2023-11-06 18:20 | CASEMGMT ---
Social Work- SW met with pt and pt mom to answer questions and provide updates on referral status. SW to remain available to follow. CLARIBEL Reynaga
[2023-11-06 20:55] VITALS: BP 124/72; PULSE 65; RESP 15; TEMP 36.8; O2SAT 94
[2023-11-06] MEDS: Atorvastatin Calcium 10 MG Tablet PO (21:02)
[2023-11-06] MEDS: OLANZapine 10 MG Tablet 20 MG PO (21:03)
[2023-11-06] MEDS: Lithium Carbonate 300mg Capsule 600 MG PO (21:03)
[2023-11-06] MEDS: Benztropine 2 MG Tablet 1 MG PO (21:03)
[2023-11-06] MEDS: Tamsulosin HCl 0.4 MG Capsule PO (21:04)
[2023-11-06 22:25] VITALS: O2SAT 94
--- NOTE | 2023-11-06 23:42 | CPS ---
[2225] Pt. refusing to wear BiPAP tonight. SpO2 = 94% on 2L NC
[2023-11-07 02:54] VITALS: BP 124/73; PULSE 69; RESP 15; TEMP 36.6; O2SAT 96
[2023-11-07 05:38] VITALS: BMI 30.3
[2023-11-07 07:27] VITALS: O2SAT 96
--- NOTE | 2023-11-07 07:37 | PN.HOSP_ITS ---
Reason for Visit Reason for Visit: Diagnoses Unspecified protein-calorie malnutrition (10/30/23) Obesity, unspecified (10/30/23) Schizophrenia, unspecified (10/30/23) Metabolic encephalopathy (10/30/23) Other specified peripheral vascular diseases (10/30/23) Lymphedema, not elsewhere classified (10/30/23) Pneumonia, unspecified organism (10/30/23) Chronic obstructive pulmonary disease with (acute) exacerbation (10/30/23) Acute respiratory failure with hypoxia (10/30/23) Acute respiratory failure with hypercapnia (10/30/23) Other abnormalities of breathing (10/30/23) Other specified abnormal findings of blood chemistry (10/30/23) Tobacco use (10/30/23) Subjective Subjective Patient is a 63-year-old gentleman with history of bipolar disorder resident at an assisted living facility admitted with shortness of breath diagnosed with aspiration pneumonia Objective Data Objective Data Vital Signs: Vital Signs Temp Pulse Resp BP Pulse Ox O2 Del Method O2 Flow Rate 97.8 F 69 15 124/73 H 96 Nasal Cannula 2 11/07/23 02:54 11/07/23 02:54 11/07/23 02:54 11/07/23 02:54 11/07/23 07:27 11/07/23 03:00 11/07/23 07:27 FiO2 30 11/02/23 22:15 Oxygen Flow Rate (L/min) [ 3 AMBULATING with Oxygen #1] Oxygen Flow Rate (L/min) 2 Oxygen Delivery Method Nasal Cannula Weight: 90.9 kg Body Mass Index (BMI) 30.3 Intake & Output: Intake and Output for Last 24 Hours 11/05/23 11/06/23 11/07/23 23:59 23:59 23:59 Intake Total 480 / 2480 2400 / 3400 1400 / 1400 Output Total 7000 / 46803 6350 / 8950 3600 / 3600 Balance -6520 / -8120 -3950 / -5550 -2200 / -2200 Lab / Micro Data 10/30/23 02:37 10/30/23 02:37 Micro: Microbiology 10/30/23 15:30 Mucosa - Nasopharyngeal Respiratory Panel (PCR) - Final 10/29/23 23:15 Mucosa - Nose SARS-CoV-2, Influenza & RSV (PCR) - Final Physical Exam Narrative GENERAL: cooperative HEENT: Atraumatic; normocephalic EYES; Anicteric, Normal Conjunctiva NECK; supple, normal thyroid, RESPIRATORY: Diminished to auscultation CARDIOVASCULAR: Regular S1 S2, GI: soft, normoactive bowel sounds, : No Renal angle tenderness; EXTREMITIES: No edema, no clubbing, MUSCULOSKELETAL: no muscle wasting NEURO: Awake; no lateralizing signs. SKIN: No Rash PSYCH; Flat affect Assessment & Plan Assessment/Plan (1) Acute respiratory failure with hypoxia and hypercapnia: PLAN: Plan Patient is a 63-year-old gentleman with history of bipolar disorder resident at an assisted living facility admitted with shortness of breath diagnosed with aspiration pneumonia 1. Acute combined respiratory failure-most likely from exacerbation of COPD and possibly aspiration-pulmonary medicine has recommended continuing antibiotic coverage for now and completing a 7-day course of Augmentin as an outpatient-at this point he will need approximately 4 days of outpatient antibiotics when he goes to the nursing facility. Patient is on corticosteroids and aerosol treatments, he may require oxygen at the time of discharge from the hospital. Oxygen will be weaned if possible, patient is currently on 2 L via nasal cannula, I have elected to decrease his prednisone to 20 mg daily-this can be continued for 3 more days [facility] #2 aspiration pneumonia-secondary to oropharyngeal dysphagia-the etiology of the dysphagia is unknown at this time, patient will need to perform a chin tuck when swallowing, due to his schizophrenia I am not sure how compliant the patient will be in this maneuver. Speech therapy will continue to work with the patient. Because of this and will necessitate him being placed in a longterm facility for supervision when he eats. #3 schizophrenia-complicates care, management, recovery, and prognosis #4 essential hypertension-patient is on amlodipine will be adjusted if necessary #5 bipolar disorder-patient is on lithium #6 exacerbation of COPD-patient is on oral steroids and aerosol treatments #7 hyperlipidemia-patient is currently on Lipitor Total clinical time spent by myself addressing patient's medical issues, reviewing all of his data, and collaborating with patient's care team: 35 minutes
--- NOTE | 2023-11-07 07:37 | PCM.PN.HOSP ---
Reason for Visit Reason for Visit: Diagnoses Unspecified protein-calorie malnutrition (10/30/23) Obesity, unspecified (10/30/23) Schizophrenia, unspecified (10/30/23) Metabolic encephalopathy (10/30/23) Other specified peripheral vascular diseases (10/30/23) Lymphedema, not elsewhere classified (10/30/23) Pneumonia, unspecified organism (10/30/23) Chronic obstructive pulmonary disease with (acute) exacerbation (10/30/23) Acute respiratory failure with hypoxia (10/30/23) Acute respiratory failure with hypercapnia (10/30/23) Other abnormalities of breathing (10/30/23) Other specified abnormal findings of blood chemistry (10/30/23) Tobacco use (10/30/23) Subjective Subjective Patient is a 63-year-old gentleman with history of bipolar disorder resident at an assisted living facility admitted with shortness of breath diagnosed with aspiration pneumonia Objective Data Objective Data Vital Signs: Vital Signs Temp Pulse Resp BP Pulse Ox O2 Del Method O2 Flow Rate 97.8 F 69 15 124/73 H 96 Nasal Cannula 2 11/07/23 02:54 11/07/23 02:54 11/07/23 02:54 11/07/23 02:54 11/07/23 07:27 11/07/23 03:00 11/07/23 07:27 FiO2 30 11/02/23 22:15 Oxygen Flow Rate (L/min) [ 3 AMBULATING with Oxygen #1] Oxygen Flow Rate (L/min) 2 Oxygen Delivery Method Nasal Cannula Weight: 90.9 kg Body Mass Index (BMI) 30.3 Intake & Output: Intake and Output for Last 24 Hours 11/05/23 11/06/23 11/07/23 23:59 23:59 23:59 Intake Total 480 / 2480 2400 / 3400 1400 / 1400 Output Total 7000 / 29805 6350 / 8950 3600 / 3600 Balance -6520 / -8120 -3950 / -5550 -2200 / -2200 Lab / Micro Data 10/30/23 02:37 10/30/23 02:37 Micro: Microbiology 10/30/23 15:30 Mucosa - Nasopharyngeal Respiratory Panel (PCR) - Final 10/29/23 23:15 Mucosa - Nose SARS-CoV-2, Influenza & RSV (PCR) - Final Physical Exam Narrative GENERAL: cooperative HEENT: Atraumatic; normocephalic EYES; Anicteric, Normal Conjunctiva NECK; supple, normal thyroid, RESPIRATORY: Diminished to auscultation CARDIOVASCULAR: Regular S1 S2, GI: soft, normoactive bowel sounds, : No Renal angle tenderness; EXTREMITIES: No edema, no clubbing, MUSCULOSKELETAL: no muscle wasting NEURO: Awake; no lateralizing signs. SKIN: No Rash PSYCH; Flat affect Assessment & Plan Assessment/Plan (1) Acute respiratory failure with hypoxia and hypercapnia: PLAN: Plan Patient is a 63-year-old gentleman with history of bipolar disorder resident at an assisted living facility admitted with shortness of breath diagnosed with aspiration pneumonia 1. Acute hypoxic respiratory failure ? Due to combination of aspiration pneumonia as well as COPD with acute exacerbation. Admitted to regular nursing floor with present with underlying clinical condition 2. Aspiration pneumonia ? Secondary to oropharyngeal dysphagia etiology of which is not known patient was seen and consultation by speech therapy. Placed on broad-spectrum antibiotic therapy 3. COPD with acute exacerbation ? Patient started on bronchodilator treatment, systemic steroid as well as antibiotic therapy. Patient placed on oxygen titrated to keep saturation greater than 90. 4. Schizophrenia ? Complicating care plan is to continue with patient antipsychotic medications?fluphenazine as well as Zyprexa 5. Bipolar disorder ? Patient is on lithium 6. Allergic rhinitis ? Patient is on montelukast 7. BPH with lower urinary obstructive symptoms - Patient treated with tamsulosin 8. Dyslipidemia ?Patient is on statin therapy, continued at home dose 9. GERD ? On PPI 10. Hypertension ? Blood pressure controlled, home medications continued with dose adjustment as needed 11. DVT prophylaxis ? On enoxaparin Time spent in the patient's overall evaluation,decision-making process, review of diagnostic data, adjustment of management, discussion with other providers, nursing nursing and ancillary staff involved in patient's care documentation, 50 Minutes Charges/Coding Visit Charges Inpatient E&M: 52728 Subs Hosp L3
[2023-11-07 08:21] VITALS: O2SAT 95
[2023-11-07 08:40] VITALS: BP 121/75; PULSE 75; RESP 16; TEMP 36.8; O2SAT 98
[2023-11-07] MEDS: Enoxaparin 40 MG/0.4 ML Syringe SC (08:42)
[2023-11-07] MEDS: Lactobacillis Acidophilus 1 CAP PO ×3 (08:43→16:53)
[2023-11-07] MEDS: Amox/Clavulanate 875 MG Tablet PO ×2 (08:43→16:53)
[2023-11-07] MEDS: Cholecalciferol (VIT D3) 25 MCG TABLET (1,000 UNITS) 50 MCG PO (08:43)
[2023-11-07] MEDS: Pantoprazole Sodium 20 MG Tablet PO (08:43)
[2023-11-07] MEDS: OLANZapine 10 MG Tablet PO (08:43)
[2023-11-07] MEDS: amLODIPine 5 MG Tablet PO (08:43)
[2023-11-07] MEDS: Montelukast 10 MG Tablet PO (08:43)
[2023-11-07] MEDS: Spironolactone 25 MG Tablet PO (08:44)
[2023-11-07] MEDS: Multivitamins,Ther W-Minerals Tablet 1 TABLET PO (08:44)
[2023-11-07] MEDS: predniSONE 20 MG Tablet PO (08:44)
[2023-11-07 14:00] VITALS: BP 115/68; PULSE 75; RESP 16; TEMP 37.1; O2SAT 98
--- NOTE | 2023-11-07 15:22 | TREXTCAR_ITS ---
Diet Diet Order/Speech Therapy: 10/30/23 15:04 Diet: Regular - General Food consistency:: Easy to Chew Liquid Consistency:: Regular/Thin Diet Comments: Direct supervision for ALL food/drink, chin tucks w/ liquids/no pop Routine Orders/Code Status Code Status: Full Code Therapies Physical Therapy: Eval and Treat Occupational Therapy: Eval and Treat Speech Therapy: Eval and Treat Problem/Diagnosis (1) Acute respiratory failure with hypoxia and hypercapnia: Status: Acute Code(s): J96.01 - Acute respiratory failure with hypoxia; J96.02 - Acute respiratory failure with hypercapnia Plan Patient is a 63-year-old gentleman with history of bipolar disorder resident at an assisted living facility admitted with shortness of breath diagnosed with aspiration pneumonia 1. Acute hypoxic respiratory failure ? Due to combination of aspiration pneumonia as well as COPD with acute exacerbation. Admitted to regular nursing floor with present with underlying clinical condition 2. Aspiration pneumonia ? Secondary to oropharyngeal dysphagia etiology of which is not known patient was seen and consultation by speech therapy. Placed on broad-spectrum antibiotic therapy 3. COPD with acute exacerbation ? Patient started on bronchodilator treatment, systemic steroid as well as antibiotic therapy. Patient placed on oxygen titrated to keep saturation greater than 90. 4. Schizophrenia ? Complicating care plan is to continue with patient antipsychotic medications?fluphenazine as well as Zyprexa 5. Bipolar disorder ? Patient is on lithium 6. Allergic rhinitis ? Patient is on montelukast 7. BPH with lower urinary obstructive symptoms - Patient treated with tamsulosin 8. Dyslipidemia ?Patient is on statin therapy, continued at home dose 9. GERD ? On PPI 10. Hypertension ? Blood pressure controlled, home medications continued with dose adjustment as needed 11. DVT prophylaxis ? On enoxaparin Time spent in the patient's overall evaluation,decision-making process, review of diagnostic data, adjustment of management, discussion with other providers, nursing nursing and ancillary staff involved in patient's care documentation, 50 Minutes Allergies/Procedures Done in Hospital Allergies codeine Adverse Reaction (Verified 10/29/23 22:03) Upset Stomach haloperidol (From Haldol) Adverse Reaction (Verified 10/29/23 22:03) Abd cramps/diarrhea haloperidol lactate (From Haldol) Adverse Reaction (Verified 10/29/23 22:03) Abd cramps/diarrhea ziprasidone Adverse Reaction (Verified 10/29/23 22:03) Unknown Type of Care/Length of Stay Estimated LOS: More Than 30 Days Type of Care Needed: Intermediate Rehab Potential: Fair Prognosis: Fair Additional Orders/Day of Discharge Day of Discharge: 11/07/23 Dietary and Speech Recommendations Dietitian Recommendations/Changes: Continue Regular diet with texture/consistency per [employer] to optimize oral intakes. Discharge Plan Admission Admit Date/Time: 10/30/23 01:04 Attending Provider: Marques Ross Primary Care Provider: Ingris Chu FIELD SUPPORT ENGINEER Consulting Providers: Marques Wise; Severino Galan Discharge Orders/Prescriptions Prescriptions: New nicotine 14 mg/24 hr Patch 24 Hour 14 mg transdermal DAILY Qty: 0 0RF prednisone 20 mg Tablet 20 mg PO BREAKFAST 5 Days Qty: 0 0RF melatonin 3 mg Tablet 3 mg PO QHS PRN PRN (Reason: Insomnia) Qty: 0 0RF amoxicillin-pot clavulanate 875-125 mg Tablet 1 tab PO BIDCM 7 Days Qty: 14 0RF L.acidoph,saliva-B.bif-S.therm 175 mg Capsule 1 cap PO 4X/DAY Qty: 0 0RF Continued olanzapine 10 MG tablet 10 mg PO DAILY lithium carbonate 300 MG tablet extended release 600 mg PO QHS spironolactone 25 MG tablet 25 mg PO DAILY benztropine 2 MG tablet 1 mg PO PRN omeprazole 20 MG capsule 20 mg PO BID fluphenazine decanoate 25 MG/ML solution 25 mg IJ .[id number] MDD Q 2 WEEKS multivitamin,fj-barz-ygcxpurk 1 TABLET tablet 1 tab PO DAILYCM 0RF docusate sodium [DOK] 100 MG capsule 100 mg PO BID PRN (Reason: Constipation) fluticasone propionate 1 SPRAY spray,suspension 1 spray NASAL DAILY PRN (Reason: Allergies) acetaminophen [Pharbetol] 500 MG tablet 1,000 mg PO TID PRN (Reason: Pain) simvastatin [Zocor] 20 MG tablet 20 mg PO QHS montelukast 10 MG tablet 10 mg PO DAILY albuterol sulfate [Ventolin HFA] 1 INHALER inhaler 2 puff inhalation Q4H PRN PRN (Reason: Sob &/Or Wheezing) olanzapine [Zyprexa] 20 MG tablet 20 mg PO QHS omega-3 fatty acids-fish oil 1 EACH capsule 2 capsule PO BID cholecalciferol (vitamin D3) 2,000 UNIT capsule 2,000 unit PO DAILY amlodipine 5 mg tablet 5 mg PO DAILY tamsulosin [Flomax] 0.4 mg capsule 0.4 mg PO QHS buspirone 10 mg tablet 10 mg PO PRN Deep Sea Nasal 0.65 % aerosol,spray 1 spray intranasal TID PRN (Reason: dry nasal passages) ammonium lactate 12 % cream 1 applic topical BID Referrals / Follow Up: Ingris Chu FIELD SUPPORT ENGINEER, FIELD SUPPORT ENGINEER-C [Primary Care Provider] -
--- NOTE | 2023-11-07 15:49 | CASEMGMT ---
Social Work- SW completed 7000 and placed on chart for precert. DCA advised. CLARIBEL Pena
--- NOTE | 2023-11-07 16:38 | CASEMGMT ---
Social Work Physician updated and pt is ready for discharge today.? 7000 convalescent form completed in [facility]. SW met with pt and they are agreeable to discharge plan as stated above.? DCA notified of discharge time. Disposition:[facility], intermediate level of care CLARIBEL Pena
--- NOTE | 2023-11-07 16:41 | DS.PCM_ITS ---
Providers Date of Admission: 10/30/23 Date of Discharge: 11/07/23 Primary Care Physician: Ingris Chu, NIGHT TIME NANNYCarlosC Consultations 10/30/23 02:17 Consult: Onc/Wound/patient liaison Routine Comment: Reason for Consult:: Bilateral LE Ulcers with PVD and Chronic Venous Stasis with Lymph 10/30/23 07:22 Consult: Apparel Designer / Pulmonary Medicine Routine Consulting Provider: Intensivists/Pulmonary Med Reason for Consult: ? pneumonia EMERGENT Consult: No MD Notified: Yes Date Notified: 10/30/23 Time Notified: 07:22 Method of Notification: Verbal Reason For Visit: RLL PNEUMONIA, AE COPD, RESPIRATORY INSUFF AND Diagnosis Discharge Diagnosis (1) Acute respiratory failure with hypoxia and hypercapnia: Status: Acute Code(s): J96.01 - Acute respiratory failure with hypoxia; J96.02 - Acute respiratory failure with hypercapnia Plan Patient is a 63-year-old gentleman with history of bipolar disorder resident at an assisted living facility admitted with shortness of breath diagnosed with aspiration pneumonia 1. Acute hypoxic respiratory failure ? Due to combination of aspiration pneumonia as well as COPD with acute exacerbation. Admitted to regular nursing floor with present with underlying clinical condition 2. Aspiration pneumonia ? Secondary to oropharyngeal dysphagia etiology of which is not known patient was seen and consultation by speech therapy. Placed on broad-spectrum antibiotic therapy 3. COPD with acute exacerbation ? Patient started on bronchodilator treatment, systemic steroid as well as antibiotic therapy. Patient placed on oxygen titrated to keep saturation greater than 90. 4. Schizophrenia ? Complicating care plan is to continue with patient antipsychotic medications?fluphenazine as well as Zyprexa 5. Bipolar disorder ? Patient is on lithium 6. Allergic rhinitis ? Patient is on montelukast 7. BPH with lower urinary obstructive symptoms - Patient treated with tamsulosin 8. Dyslipidemia ?Patient is on statin therapy, continued at home dose 9. GERD ? On PPI 10. Hypertension ? Blood pressure controlled, home medications continued with dose adjustment as needed 11. DVT prophylaxis ? On enoxaparin Time spent in the patient's overall evaluation,decision-making process, review of diagnostic data, adjustment of management, discussion with other providers, nursing nursing and ancillary staff involved in patient's care documentation, 50 Minutes Medications at Discharge Home Medications benztropine 2 mg tablet 1 mg PO PRN abnormal movements 02/18/15 lithium carbonate 300 mg tablet,extended release 600 mg PO QHS Bipolar 02/18/15 olanzapine 10 mg tablet 10 mg PO DAILY 02/18/15 omeprazole 20 mg capsule,delayed release 20 mg PO BID 02/18/15 spironolactone 25 mg tablet 25 mg PO DAILY 02/18/15 fluphenazine decanoate 25 mg/mL injection solution 25 mg IJ .[id number] PARANOID SCHIZOPHRENIA 07/29/16 multivitamin,ek-byon-jiyukjgz 27 mg-0.4 mg tablet 1 tab PO DAILYCM 08/01/16 acetaminophen 500 mg tablet (Pharbetol) 1,000 mg PO TID PRN Pain 05/02/18 albuterol sulfate 90 mcg/actuation aerosol inhaler (Ventolin HFA) 2 puff inhalation Q4H PRN PRN Sob &/Or Wheezing 05/02/18 docusate sodium 100 mg capsule (DOK) 100 mg PO BID PRN Constipation 05/02/18 fluticasone propionate 50 mcg/actuation nasal spray,suspension 1 spray DAILY PRN Allergies 05/02/18 montelukast 10 mg tablet 10 mg PO DAILY 05/02/18 olanzapine 20 mg tablet (Zyprexa) 20 mg PO QHS 05/02/18 omega-3 fatty acids-fish oil 300 mg-1,000 mg capsule 2 capsule PO BID deficiency 05/02/18 simvastatin 20 mg tablet (Zocor) 20 mg PO QHS 05/02/18 cholecalciferol (vitamin D3) 50 mcg (2,000 unit) capsule 2,000 unit PO DAILY calcium 12/24/18 amlodipine 5 mg tablet 5 mg PO DAILY 03/22/23 buspirone 10 mg tablet 10 mg PO PRN anxiety 03/22/23 sodium chloride 0.65 % nasal spray aerosol (Deep Sea Nasal) 1 spray intranasal TID PRN dry nasal passages 03/22/23 tamsulosin 0.4 mg capsule (Flomax) 0.4 mg PO QHS 03/22/23 ammonium lactate 12 % topical cream 1 applic topical BID skin irritation 10/30/23 L.acidophil,salivari-Bifido bifidum-Strep thermoph 175 mg capsule 1 cap PO 4X/DAY #0 caps 11/07/23 amoxicillin 875 mg-potassium clavulanate 125 mg tablet 1 tab PO BIDCM 7 days #14 tabs 11/07/23 melatonin 3 mg tablet 3 mg PO QHS PRN PRN Insomnia #0 tabs 11/07/23 nicotine 14 mg/24 hr daily transdermal patch 14 mg transdermal DAILY #0 ea 11/07/23 prednisone 20 mg tablet 20 mg PO BREAKFAST 5 days #0 tabs 11/07/23 Physical Exam Narrative GENERAL: cooperative HEENT: Atraumatic; normocephalic EYES; Anicteric, Normal Conjunctiva NECK; supple, normal thyroid, RESPIRATORY: Diminished to auscultation CARDIOVASCULAR: Regular S1 S2, GI: soft, normoactive bowel sounds, : No Renal angle tenderness; EXTREMITIES: No edema, no clubbing, MUSCULOSKELETAL: no muscle wasting NEURO: Awake; no lateralizing signs. SKIN: No Rash PSYCH; Flat affect Weight / BMI Weight Weight: 90.9 kg Body Mass Index (BMI) 30.3 ABG / Lab / Microbiology Data 10/30/23 02:37 10/30/23 02:37 Microbiology: Microbiology 10/30/23 15:30 Mucosa - Nasopharyngeal Respiratory Panel (PCR) - Final 10/29/23 23:15 Mucosa - Nose SARS-CoV-2, Influenza & RSV (PCR) - Final D/C Instructions Discharge Diet: No restrictions Discharge Activity: Return to Normal Activity Call your doctor if you observe: Fever of 101 or Higher, Shortness of breath, Fainting spells and Chest pain Meaningful Use Info Meaningful Use Meaningful Use Diagnoses (Choose all that apply): None applicable Ischemic Stroke Statin Dosing Therapy Reference: STATIN DOSE THERAPY REFERENCE: * Patients > 75 years receive moderate or high dose statin therapy. * Patients 75 years or YOUNGER should receive HIGH intensity statin dose unless contraindicated. You will be required to document reason for non-treatment if statin daily dose does not meet guidelines. HIGH DOSE STATIN THERAPY DAILY Atorvastatin > than or = to 40 mg Rosuvastatin > than or = to 20 mg Amlodipine + Atorvastatin > than or = to 2.5/40 mg Ezetimibe + Simvastatin 10/80 mg Simvastatin 80mg Discharge Plan Admission Admit Date/Time: 10/30/23 01:04 Attending Provider: Marques Ross Primary Care Provider: Ingris Chu NIGHT TIME NANNY Consulting Providers: Marques Wise; Severino Galan Discharge Orders/Prescriptions Prescriptions: New nicotine 14 mg/24 hr Patch 24 Hour 14 mg transdermal DAILY Qty: 0 0RF prednisone 20 mg Tablet 20 mg PO BREAKFAST 5 Days Qty: 0 0RF melatonin 3 mg Tablet 3 mg PO QHS PRN PRN (Reason: Insomnia) Qty: 0 0RF amoxicillin-pot clavulanate 875-125 mg Tablet 1 tab PO BIDCM 7 Days Qty: 14 0RF L.acidoph,saliva-B.bif-S.therm 175 mg Capsule 1 cap PO 4X/DAY Qty: 0 0RF Continued olanzapine 10 MG tablet 10 mg PO DAILY lithium carbonate 300 MG tablet extended release 600 mg PO QHS spironolactone 25 MG tablet 25 mg PO DAILY benztropine 2 MG tablet 1 mg PO PRN omeprazole 20 MG capsule 20 mg PO BID fluphenazine decanoate 25 MG/ML solution 25 mg IJ .[id number] MDD Q 2 WEEKS multivitamin,bx-mzov-uudpjgih 1 TABLET tablet 1 tab PO DAILYCM 0RF docusate sodium [DOK] 100 MG capsule 100 mg PO BID PRN (Reason: Constipation) fluticasone propionate 1 SPRAY spray,suspension 1 spray NASAL DAILY PRN (Reason: Allergies) acetaminophen [Pharbetol] 500 MG tablet 1,000 mg PO TID PRN (Reason: Pain) simvastatin [Zocor] 20 MG tablet 20 mg PO QHS montelukast 10 MG tablet 10 mg PO DAILY albuterol sulfate [Ventolin HFA] 1 INHALER inhaler 2 puff inhalation Q4H PRN PRN (Reason: Sob &/Or Wheezing) olanzapine [Zyprexa] 20 MG tablet 20 mg PO QHS omega-3 fatty acids-fish oil 1 EACH capsule 2 capsule PO BID cholecalciferol (vitamin D3) 2,000 UNIT capsule 2,000 unit PO DAILY amlodipine 5 mg tablet 5 mg PO DAILY tamsulosin [Flomax] 0.4 mg capsule 0.4 mg PO QHS buspirone 10 mg tablet 10 mg PO PRN Deep Sea Nasal 0.65 % aerosol,spray 1 spray intranasal TID PRN (Reason: dry nasal passages) ammonium lactate 12 % cream 1 applic topical BID Referrals / Follow Up: Ingris Chu NIGHT TIME NANNY, NIGHT TIME NANNY-C [Primary Care Provider] - Disposition Disposition (needs filled in before D/C Order can be placed): NonSkilled NH/Intermed Care Charges/Coding Visit Charges Inpatient E&M: 33095 Disch Hosp >30min
--- NOTE | 2023-11-07 16:50 | CASEMGMT ---
Discharge Planning Discharge orders, signed med list, and transport time sent to [facility] via [facility]. Wheelchair transport was arranged with [facility] for 7:30p. Nursing, SW, patient, and his mother updated. Elisabet Mcmillan DC Planning Asst.
[2023-11-07 20:03] VITALS: BP 125/76; PULSE 76; RESP 16; TEMP 36.6; O2SAT 98
== END 2023-11-07 20:09 | disposition intermediate care facility (04) | DRG 177 ==
LOC: ED 10-30 00:36 → ICU 10-30 02:21 → MS3 11-02 07:39
PROVIDERS: Admitting Provider Internal Medicine; Emergency Provider Emergency Medicine; PCP Nurse Practitioner Adult Health; Visit Provider Internal Medicine
DX: J69.0 Pneumonitis due to inhalation of food and vomit (principal); J96.01 Acute respiratory failure with hypoxia; J96.02 Acute respiratory failure with hypercapnia; J44.1 Chronic obstructive pulmonary disease with (acute) exacerbation; F20.0 Paranoid schizophrenia; N13.8 Other obstructive and reflux uropathy; I10 Essential (primary) hypertension; I73.9 Peripheral vascular disease, unspecified; E66.9 Obesity, unspecified; F31.9 Bipolar disorder, unspecified; E78.5 Hyperlipidemia, unspecified; F17.210 Nicotine dependence, cigarettes, uncomplicated; J30.9 Allergic rhinitis, unspecified; I89.0 Lymphedema, not elsewhere classified; K21.9 Gastro-esophageal reflux disease without esophagitis; G47.33 Obstructive sleep apnea (adult) (pediatric); I87.8 Other specified disorders of veins; N40.1 Benign prostatic hyperplasia with lower urinary tract symptoms; R13.12 Dysphagia, oropharyngeal phase; Z68.32 Body mass index [BMI] 32.0-32.9, adult; Z79.899 Other long term (current) drug therapy
CPT/HCPCS: 36600; 71045; 71275; 74230; 80048; 80053; 80178; 80307; 81001; 82077; 82803; 83605; 83735; 83880; 84100; 84145; 84443; 85025; 85379; 87631; 87633; 92526; 92611; 93970; 94002; 94003; 94640; 94668; 94762; 97110; 97116; 97162; 97166; 97530; 97535; 99252; 99285; J7030; J7040; J7050; Q9967; A4216; G0463; J1940

== ENCOUNTER → 2023-11-08 05:00 | Outpatient (REF) | payer MEDICARE, MEDICAID, SELFPAY ==
[2023-11-08 08:44] LABS: Hematocrit 50.1 % (40-54); Hemoglobin 15.3 g/dL (13.0-16.5); Mean Corp Hgb Conc 30.5 g/dL (32-36); Mean Corpuscular Volume 104.8 fL (80-94); Mean Platelet Vol. 9.8 fl (6.2-12.0); Platelet Count 205 K/mm3 (150-450); RBC Distribution Width CV 15.1 % (11.6-14.6); Red Blood Count 4.78 M/mm3 (4.6-6.2); White Blood Count 7.8 K/mm3 (4.4-11.0)
[2023-11-08 08:58] LABS: Anion Gap 2 (5-15); BUN 33 mg/dL (7-18); BUN/Creat Ratio 25.6 RATIO (10-20); Calcium,Total 10.2 mg/dL (8.5-10.1); Chloride 105 mmol/L (98-107); Creatinine, Serum 1.29 mg/dL (0.70-1.30); EST Glomerular Filtration Rate 60 mL/min (>60); Est Glom Filt Rate - Afr Amer 73 mL/min (>60); Glucose 84 mg/dL (74-106); Potassium 4.4 mmol/L (3.5-5.1); Sodium Level 139 mmol/L (136-145)
== END ==
LOC: OLS.SW 05:00
PROVIDERS: PCP Nurse Practitioner Adult Health; Visit Provider Family Medicine
DX: J44.9 Chronic obstructive pulmonary disease, unspecified (principal); J69.0 Pneumonitis due to inhalation of food and vomit
CPT/HCPCS: 36415; 80048; 85027

== ENCOUNTER 2023-12-08 16:07 | Inpatient (IN) | payer MEDICARE, MEDICAID, SELFPAY ==
[2023-12-08] VITALS (13 sets, daily range): BP systolic 107–128; BP diastolic 63–75; PULSE 77–95; RESP 12–39; TEMP 36.8–37.7; O2SAT 62–98; BMI 31.8; BMI 30.2
--- NOTE | 2023-12-08 16:17 | EKG12_ITS ---
Test Reason : SOB Blood Pressure : / mmHG Vent. Rate : 085 BPM Atrial Rate : 085 BPM P-R Int : 168 ms QRS Dur : 088 ms QT Int : 358 ms P-R-T Axes : 047 -09 049 degrees QTc Int : 426 ms Normal sinus rhythm with sinus arrhythmia Normal ECG When compared with ECG of 29-JUL-2016 03:36, No significant change was found Confirmed by LORNA CRISTINA, DEENA ([id number]), newspaper editor JUAN A SPARROW ([id number]) on 12/12/2023 9:42:12 AM Referred By: Confirmed By:DEENA ROTHMAN MD
--- NOTE | 2023-12-08 16:35 | RAD_ITS ---
STUDY: X-RAY CHEST REASON FOR EXAM: Male, 63 years old. Respiratory failure TECHNIQUE: AP portable COMPARISON: October 29, 2023 FINDINGS: Nonspecific bibasilar interstitial thickening.. There is no demonstrated pleural abnormality. Normal size heart. Normal mediastinum and lolis. Normal visualized pulmonary arteries. Normal visualized aortic arch and descending thoracic aorta. Dorsal spine demonstrates mild degenerative change. Normal visualized ribs, clavicles, and shoulders. There is no demonstrated abnormality of the visualized soft tissue structures of the upper abdomen. There is slight improved aeration in the right lower lobe since prior exam. No other significant change RAD/Chest 1 View (Portable) IMPRESSION: Persistent mild bibasilar interstitial thickening in both lower lobes slightly improvement since previous exam in the right lower lobe No new infiltrates] significant change Electronically Signed: Erick Zavala MD at 17:07 EDT ,
[2023-12-08] MEDS: Ipratropium/Albuterol Sulfate 3 ML AMPUL.NEB INHALATION ×2 (16:37→19:52)
[2023-12-08] MEDS: Albuterol 2.5 MG/3 ML VIAL.NEB. INHALATION ×3 (16:37)
--- NOTE | 2023-12-08 16:49 | EX.ED.DYSGE1 ---
HPI History of Present Illness Chief Complaint: Shortness of Breath Detail of Chief Complaint: Shortness of breath per triage note and EMS report. Informant: patient and EMS Limited: other (Patient mumbles and I am having difficulty understanding what he says.) Onset/Context/Timing Onset: - (Uncertain) Context: - (Uncertain) Timing: - (Unknown) Quality: Shortness of breath with cough Location: Respiratory Current Severity: Severe Maximum Severity: Severe Worsened by: Activity Relieved by: Nothing Associated Symptoms Associated Symptoms: Cough Narrative Narrative: Patient is 63-year-old male. He has history of respiratory insufficiency, COPD, obesity with BMI of 31.8, venous stasis dermatitis, GERD. Review of prior records indicates he has history of elevated ammonia. He also has history of alcohol withdrawal in the past. Patient denies fever or chills. Patient does endorse cough and shortness of breath. Cough is essentially nonproductive. He has no known history of blood clot in the lung or leg. He denies pain with breathing. He denies GI symptoms. He denies PND. He has no new orthopnea. Prior similar symptoms: Yes Recent Illness/Hospitalization: Yes (Seen in the ER October 29 for respiratory failure with hypoxia and hypercapn) [facility] Medical History (Updated 12/08/23 @ 18:[address] Rudolph Lam MD) Aspiration pneumonia Hypoxemia GERD (gastroesophageal reflux disease) Sepsis Tobacco abuse Schizophrenia COPD exacerbation Bipolar disorder Home Medications ?Medication ?Instructions ?Recorded ?Last Taken ?Type lithium carbonate 300 mg 600 mg PO QHS Bipolar 02/18/15 10/29/23 History tablet,extended release olanzapine 10 mg tablet 10 mg PO DAILY 02/18/15 Unknown History omeprazole 20 mg capsule,delayed 20 mg PO BID 02/18/15 Unknown History release spironolactone 25 mg tablet 25 mg PO DAILY 02/18/15 Unknown History fluphenazine decanoate 25 mg/mL 25 mg IJ [id number] PARANOID 07/29/16 Unknown History injection solution SCHIZOPHRENIA montelukast 10 mg tablet 10 mg PO DAILY 05/02/18 Unknown History olanzapine 20 mg tablet (Zyprexa) 20 mg PO QHS 05/02/18 Unknown History omega-3 fatty acids-fish oil 300 2 capsule PO BID deficiency 05/02/18 10/29/23 History mg-1,000 mg capsule simvastatin 20 mg tablet (Zocor) 20 mg PO QHS 05/02/18 Unknown History amlodipine 5 mg tablet 5 mg PO DAILY 03/22/23 Unknown History tamsulosin 0.4 mg capsule (Flomax) 0.4 mg PO QHS 03/22/23 Unknown History ammonium lactate 12 % topical cream 1 applic topical BID skin 10/30/23 10/29/23 History irritation Allergy/AdvReac Type Severity Reaction Status Date / Time codeine AdvReac Upset Verified 12/08/23 16:08 Stomach haloperidol (From Haldol) AdvReac Abd Verified 12/08/23 16:08 cramps/diarrhea haloperidol lactate (From AdvReac Abd Verified 12/08/23 16:08 Haldol) cramps/diarrhea ziprasidone AdvReac Unknown Verified 12/08/23 16:08 Family History Mother Diabetes Surgical History S/P right knee arthroscopy S/P laparoscopic cholecystectomy History of esophagogastroduodenoscopy (EGD) S/P bilateral inguinal hernia repair Social History Smoking Status: Current every day smoker tobacco type: cigarettes ROS ROS ED Constitutional Constitutional ED: Denies chills, fever(s) or subjective Eyes Eyes: Denies blurry vision or change in vision ENT ENT ED: Denies rhinorrhea or sore throat Cardiovascular Cardiovascular: Reports orthopnea; Denies chest pain, palpitations or paroxysmal nocturnal dyspnea Respiratory/Chest Respiratory/Chest: Reports cough, dyspnea, dyspnea on exertion and orthopnea; Denies paroxysmal nocturnal dyspnea Gastrointestinal Gastrointestinal: Denies abdominal pain, nausea or vomiting Musculoskeletal Musculoskeletal: Denies arthralgias or myalgias Integumentary Reports rash Neurologic Neurologic: Reports weakness; Denies headache(s) Hematologic/Lymphatic Hematologic/Lymphatic: Reports systems reviewed and no addt'l complaints, except as documented EXAM Physical Exam Const Vital Signs: 12/08/23 16:07 12/08/23 16:15 12/08/23 16:30 Temperature 99.8 F H Temperature Source Oral Pulse Rate 89 82 Respiratory Rate 39 H 35 H Respiratory Pattern Tachypnea Blood Pressure 128/67 H 128/65 H Blood Pressure Mean 87 86 Pulse Ox 62 98 Oxygen Delivery Method Room Air Nasal Cannula Nasal Cannula Oxygen Flow Rate (L/min) 5 5 Fraction of Inspired Oxygen (FIO2) 91 12/08/23 16:30 12/08/23 16:43 12/08/23 17:27 Temperature 99.3 F H Temperature Source Oral Pulse Rate 91 93 Respiratory Rate 28 H 33 H Respiratory Pattern Tachypnea Blood Pressure 123/75 H Blood Pressure Mean 91 Pulse Ox 91 Oxygen Delivery Method Nasal Cannula Nasal Cannula Oxygen Flow Rate (L/min) 5 4 Fraction of Inspired Oxygen (FIO2) Positive well nourished and well developed Constitutional Narrative: Patient was cyanotic. Pulse ox was 62% on room air. He is in obvious respiratory distress breathing 30-40 times a minute. General Appearance ED: well developed and cyanotic; Negative for diaphoretic or NAD HEENT Reports dry mucous membranes HEENT Narrative: Mucosa may be dry due to the fact he is mouth breathing. Posterior pharynx is normal. Nares patent. Ears normal. Mouth ED: Yes dry mucous membranes Mouth: dry mucous membranes Eyes PERRL and EOMs intact bilaterally General Eye ED: Negative for pale conjunctiva or scleral icterus Neck no lymphadenopathy, supple and no JVD Neck Narrative: Trachea is midline. There is no inspiratory or expiratory stridor. Chest Wall inspection of chest normal and palpation of chest normal Resp No normal respiratory effort and No clear to auscultation bilaterally Resp Narrative: There is use of accessory muscles. There is no retractions. Patient is tachypneic. Patient has decreased breath sounds bilaterally with expiratory wheezing noted throughout. Cardio regular rate, regular rhythm, S1 normal heart sound, S2 normal heart sound and no murmurs GI normal to inspection, nondistended, normoactive bowel sounds, non-tender, non-distended and no masses; Negative for hepatosplenomegaly GI Narrative: Positive rectus diastases. Auscultation: hypoactive bowel sounds Palpation: soft Back/Spine no CVA tenderness Extremity Negative for normal to inspection Extremity Narrative: Venous stasis dermatitis. Neuro CN's II-XII intact bilaterally Neuro Narrative: He is awake but not alert. He moves all extremities. Sensorium / Orientation: Negative for alert Psych mental status grossly normal Skin Skin Narrative: Venous stasis dermatitis and slight pallor. Capillary refill is 2 to 3 seconds. MDM MDM MDM Narrative Medical decision making narrative: Differential diagnosis would include COPD exacerbation, pneumonia, pneumothorax, pulmonary embolus, congestive heart failure. Will obtain EKG, chest x-ray and appropriate blood work to assess for anemia, white count, renal function CO2. Blood gas was obtained since he was recently admitted for respiratory failure with hypercapnia and hypoxia. Lab Data Attestation: I reviewed the patient's lab results. Lab results narrative: CBC reveals macrocytic indices. H&H is normal. White count is normal. Comprehensive metabolic panel reveals an elevated CO2 of 33. Sodium is 134 which is slightly below the lower end of normal. BUN is 6 with a creatinine of 1.2. Estimated GFR 65. Lactate is normal. High-sensitivity troponin is normal at 11. Labs: Laboratory Results - last 24 hr 12/08/23 16:30 WBC 8.2 RBC 4.17 L Hgb 13.7 Hct 44.7 MCV 107.2 H MCH 32.9 H MCHC 30.6 L RDW Std Deviation 68.0 H RDW Coeff of Babatunde 17.7 H Plt Count 171 MPV 9.8 Immature Gran % (Auto) 0.700 Neut % (Auto) 76.8 H Lymph % (Auto) 12.4 L Henry % (Auto) 8.5 Eos % (Auto) 1.2 Baso % (Auto) 0.4 Absolute Neuts (auto) 6.3 Absolute Lymphs (auto) 1.02 Nucleated RBC % 0.5 Platelet Estimate ADEQUATE RBC Morphology N CHROM Anisocytosis 1+ Macrocytosis 1+ Sodium 134 L Potassium 4.4 Chloride 100 Carbon Dioxide 33.0 H Anion Gap 1 L BUN 6 L Creatinine 1.20 Estim Creat Clear Calc 72.27 Est GFR (MDRD) Af Amer 79 Est GFR (MDRD) Non-Af 65 BUN/Creatinine Ratio 5.0 L Glucose 110 H Lactic Acid 1.0 Calcium 8.8 Total Bilirubin 0.60 AST 10 L ALT 19 Alkaline Phosphatase 96 Troponin I High Sens 11 B-Natriuretic Peptide 64.0 Total Protein 7.2 Albumin 3.2 Globulin 4.0 Albumin/Globulin Ratio 0.8 L ABG Data Attestation: I personally reviewed and interpreted this ABG as follows: Interpretation: ABG reveals acute on chronic CO2 retention with increased AA gradient. pH is 7.31, pCO2 65.9, pO2 68.8 on 6 L, bicarb 33.4 with a base excess of +7.2. Saturation is 90.9% which correlates with pulse ox, 90%. ABG results: ABG 12/08/23 16:46 Specimen Type ART Sample Site R Radial pH 7.31 L Bicarbonate Actual 33.4 H Total CO2 36 Base Excess 7 H O2 Saturation 91 L O2 % 4.0 ABG pCO2 65.9 H ABG pO2 69 L Oj Test Positive O2 Delivery Device Cannula Vent Mode Not entered Radiography Chest X-Ray - ED: 1 View and Read by ED Physician (Suboptimal since is very volume is limited and patient is rotated. There is some increased markings right side this may be due to rotation. Cardiac silhouette and size normal. [place] is unremarkable. Osseous structures unremarkable.) Diagnostic Testing: Clinical Impression(s) from Imaging Studies Chest X-Ray 12/08/23 16:35 IMPRESSION: Persistent mild bibasilar interstitial thickening in both lower lobes slightly improvement since previous exam in the right lower lobe No new infiltrates] significant change Electronically Signed: Erick Zavala MD at 17:07 EDT , Rhythm Strip Rhythm Strip: Sinus Rhythm Rate: 89 Ectopy: None EKG Initial EKG: Attestation: I personally reviewed and interpreted this EKG as follows: Interpretation: Sinus Rhythm (Rate is 85. The EKG is normal. FL interval is under 68 ms. Cures duration 88 ms. QT duration 158 ms. [place] is normal.) Management Discussion w/another healthcare provider: Hospitalist (Hospitalist made aware patient history physical recent admission. Patient to be full admit to PCU.) Treatment and Re-Evaluation :: Hospitalist been paged for admission. Patient is presently on 8 L by nasal cannula. His wheezing has improved with treatment. Critical Care Time Critical Care Time: Yes Critical care time (excluding procedures): 30-74 minutes (31), Including time spent: (History, physical, review of prior inpatient records, independent rotation laboratory results and images, initiation of treatment for COPD exacerbation.), Discussing w/Patient &/or Family/Bootmaker, Discussing w/Consultants and Arranging Admission or Transfer Discharge Plan Dx/Rx/DC Orders Clinical Impression: Acute on chronic respiratory failure with hypoxia and hypercapnia, Obesity (BMI 30.0-34.9), Peripheral vascular disease, unspecified, Tobacco abuse, Schizophrenia, GERD (gastroesophageal reflux disease), Acute bronchospasm, COPD with acute exacerbation, Chronic venous stasis dermatitis of both lower extremities Disposition Disposition: Acute Care [facility]
[2023-12-08 16:50] LABS: Allen Test Positive; Base Excess 7 mmol/L (-2 to +2); Bicarbonate 33.4 mmol/L (22-26); Blood Gas Specimen Type ART; Mode Not entered; O2 Delivery Device Cannula; PO2 69 mmHG (75-100); SITE R Radial; SO2 91 % (95-99); Total Carbon Dioxide 36 mmol/L; pCO2 65.9 mmHg (35-45); pH 7.31 (7.35-7.45)
[2023-12-08 16:54] LABS: Absolute Lymphocyte Count 1.02 X10^3/uL (0.83-4.51); Absolute Neutrophil Count 6.3 X10^3/uL (2.0-7.7); Basophil# 0.03 X10^3/uL; Basophil% 0.4 % (0-1); Eosinophils% 1.2 % (0-5); Hematocrit 44.7 % (40-54); Hemoglobin 13.7 g/dL (13.0-16.5); Lymphocyte # 1.02 X10^3/ul (0.83-4.51); Lymphocyte % 12.4 % (19-41); Mean Corp Hgb Conc 30.6 g/dL (32-36); Mean Corpuscular Hgb 32.9 pg (27.0-32.0); Mean Corpuscular Volume 107.2 fL (80-94); Mean Platelet Vol. 9.8 fl (6.2-12.0); Monocyte% 8.5 % (0-10); NRBC Flagged by Analyzer 0.5 % (0-5); Neutrophil # 6.33 X10^3/uL (2.7-7.7); Neutrophil % 76.8 % (47-70); POSITIVE MORPHOLOGY YES; Platelet Count 171 K/mm3 (150-450); RBC Distribution Width CV 17.7 % (11.6-14.6); Red Blood Count 4.17 M/mm3 (4.6-6.2); White Blood Count 8.2 K/mm3 (4.4-11.0)
[2023-12-08 17:01] LABS: ALB/GLOB Ratio 0.8 RATIO (0.9-2.4); AST(SGOT) 10 U/L (15-37); Alanine Aminotransfer ALT/SGPT 19 U/L (16-61); Albumin, Serum 3.2 g/dL (3.2-5.0); Alkaline Phosphatase 96 U/L (45-117); Anion Gap 1 (5-15); BUN 6 mg/dL (7-18); Calcium,Total 8.8 mg/dL (8.5-10.1); Chloride 100 mmol/L (98-107); EST Glomerular Filtration Rate 65 mL/min (>60); Est Glom Filt Rate - Afr Amer 79 mL/min (>60); Estimated Creatinine Clearance 72.27 ml/min; Glucose 110 mg/dL (74-106); Potassium 4.4 mmol/L (3.5-5.1); Protein, Total 7.2 g/dL (6.4-8.2); Sodium Level 134 mmol/L (136-145); Troponin-I HS 11 pg/mL (3.0-78.0)
[2023-12-08 17:02] LABS: Differential Indicated SCAN CRITERIA MET
[2023-12-08 17:37] LABS: Anisocytosis 1+; Macrocytosis 1+; Platelet Estimate ADEQUATE (ADEQ); Red Cell Morphology N CHROM NORMAL (NORM C&C)
--- NOTE | 2023-12-08 18:07 | HP.PCM.HOS_ITS ---
HPI - General General Date of Admission: 12/08/23 Date of Service: 12/08/23 Chief Complaint: Shortness of breath HPI Narrative FLORY ARIZA, is a 63 M with a significant history of recent aspiration pneumonia; schizophrenia and COPD who lives at [facility] presenting to the emergency department with persistent shortness of breath that began on the same day of presentation. Associated with his symptoms is coughing. Of note patient was mumbling with pressurized speech likely secondary to his schizophrenia making history difficult to obtain. History was obtained partly from patient and from patient's mother who was at the bedside. Per ED provider on arrival patient oxygen saturation was 62%. [facility] Medical History (Updated 12/08/23 @ 18:[address] Jonh Mon MD) Aspiration pneumonia Hypoxemia GERD (gastroesophageal reflux disease) Sepsis Tobacco abuse Schizophrenia COPD exacerbation Bipolar disorder Home Medications ?Medication ?Instructions ?Recorded ?Last Taken ?Type lithium carbonate 300 mg 600 mg PO QHS Bipolar 02/18/15 10/29/23 History tablet,extended release olanzapine 10 mg tablet 10 mg PO DAILY 02/18/15 Unknown History omeprazole 20 mg capsule,delayed 20 mg PO BID 02/18/15 Unknown History release spironolactone 25 mg tablet 25 mg PO DAILY 02/18/15 Unknown History fluphenazine decanoate 25 mg/mL 25 mg IJ [id number] PARANOID 07/29/16 Unknown History injection solution SCHIZOPHRENIA montelukast 10 mg tablet 10 mg PO DAILY 05/02/18 Unknown History olanzapine 20 mg tablet (Zyprexa) 20 mg PO QHS 05/02/18 Unknown History omega-3 fatty acids-fish oil 300 2 capsule PO BID deficiency 05/02/18 10/29/23 History mg-1,000 mg capsule simvastatin 20 mg tablet (Zocor) 20 mg PO QHS 05/02/18 Unknown History amlodipine 5 mg tablet 5 mg PO DAILY 03/22/23 Unknown History tamsulosin 0.4 mg capsule (Flomax) 0.4 mg PO QHS 03/22/23 Unknown History ammonium lactate 12 % topical cream 1 applic topical BID skin 10/30/23 10/29/23 History irritation Allergy/AdvReac Type Severity Reaction Status Date / Time codeine AdvReac Upset Verified 12/08/23 16:08 Stomach haloperidol (From Haldol) AdvReac Abd Verified 12/08/23 16:08 cramps/diarrhea haloperidol lactate (From AdvReac Abd Verified 12/08/23 16:08 Haldol) cramps/diarrhea ziprasidone AdvReac Unknown Verified 12/08/23 16:08 Family History Mother Diabetes Surgical History S/P right knee arthroscopy S/P laparoscopic cholecystectomy History of esophagogastroduodenoscopy (EGD) S/P bilateral inguinal hernia repair Social History Smoking Status: Current every day smoker tobacco type: cigarettes ROS Review of Systems ROS Unobtainable: due to mental status Vital Signs Vital Signs Vital Signs: 12/08/23 16:07 12/08/23 16:15 12/08/23 16:30 Temperature 99.8 F H Temperature Source Oral Pulse Rate 89 82 Respiratory Rate 39 H 35 H Respiratory Pattern Tachypnea Blood Pressure 128/67 H 128/65 H Blood Pressure Mean 87 86 Pulse Ox 62 98 Oxygen Delivery Method Room Air Nasal Cannula Nasal Cannula Oxygen Flow Rate (L/min) 5 5 Fraction of Inspired Oxygen (FIO2) 91 12/08/23 16:30 12/08/23 16:43 12/08/23 17:27 Temperature 99.3 F H Temperature Source Oral Pulse Rate 91 93 Respiratory Rate 28 H 33 H Respiratory Pattern Tachypnea Blood Pressure 123/75 H Blood Pressure Mean 91 Pulse Ox 91 Oxygen Delivery Method Nasal Cannula Nasal Cannula Oxygen Flow Rate (L/min) 5 4 Fraction of Inspired Oxygen (FIO2) Weight Weight: 95 kg Body Mass Index (BMI) 31.8 Physical Exam Narrative Physical exam: General: Well-nourished, well-developed. Head: Normocephalic, atraumatic, no tenderness Eyes: Vision is grossly intact. EOMI ENT, no trauma, moist mucous membranes, no rhinorrhea Neck: Nontender, No thyromegaly. CVS: Regular rate and rhythm. S1-S2 present. No murmur, gallop or rub. Respiratory : Tachypnea, wheezing and rhonchi Abdomen: Soft, nontender, nondistended, normal bowel sounds, no masses : Deferred Back: Nontender, no CVA tenderness, no midline spinal tenderness, deformities, step-offs Extremities: Nontender full range of motion, no trauma Skin: Normal color, no trauma, abrasions Neuro: Alert, cranial nerves II through XII grossly intact. Psychiatry: Mumbling. With pressurized speech Results Lab / Micro Data 12/08/23 16:30 12/08/23 16:30 Labs: Laboratory Results - last 24 hr 12/08/23 16:30: WBC 8.2, RBC 4.17 L, Hgb 13.7, Hct 44.7, MCV 107.2 H, MCH 32.9 H , MCHC 30.6 L, RDW Std Deviation 68.0 H, RDW Coeff of Babatunde 17.7 H, Plt Count 171, MPV 9.8, Immature Gran % (Auto) 0.700, Neut % (Auto) 76.8 H, Lymph % (Auto) 12.4 L, [place] % (Auto) 8.5, Eos % (Auto) 1.2, Baso % (Auto) 0.4, Absolute Neuts (auto) 6.3, Absolute Lymphs (auto) 1.02, Nucleated RBC % 0.5, Platelet Estimate ADEQUATE, RBC Morphology N CHROM, Anisocytosis 1+, Macrocytosis 1+, Sodium 134 L , Potassium 4.4, Chloride 100, Carbon Dioxide 33.0 H, Anion Gap 1 L, BUN 6 L, Creatinine 1.20, Estim Creat Clear Calc 72.27, Est GFR (MDRD) Af Amer 79, Est GFR (MDRD) Non-Af 65, BUN/Creatinine Ratio 5.0 L, Glucose 110 H, Lactic Acid 1.0, Calcium 8.8, Total Bilirubin 0.60, AST 10 L, ALT 19, Alkaline Phosphatase 96, Troponin I High Sens 11, B-Natriuretic Peptide 64.0, Total Protein 7.2, Albumin 3.2, Globulin 4.0, Albumin/Globulin Ratio 0.8 L ABG Data ABG results: ABG 12/08/23 16:46 Specimen Type ART Sample Site R Radial pH 7.31 L Bicarbonate Actual 33.4 H Total CO2 36 Base Excess 7 H O2 Saturation 91 L O2 % 4.0 ABG pCO2 65.9 H ABG pO2 69 L Oj Test Positive O2 Delivery Device Cannula Vent Mode Not entered Rhythm Strip Rhythm Strip: Sinus Rhythm Rate: 89 Ectopy: None Imaging Radiology Impression Chest X-Ray 12/08/23 16:35 IMPRESSION: Persistent mild bibasilar interstitial thickening in both lower lobes slightly improvement since previous exam in the right lower lobe No new infiltrates] significant change Electronically Signed: Erick Zavala MD at 17:07 EDT Reading Location ID and State: [facility] / MD Tel , Service support , Assessment & Plan Assessment/Plan (1) COPD with acute exacerbation: (2) Chronic venous stasis dermatitis of both lower extremities: (3) Acute bronchospasm: (4) Schizophrenia: QUALIFIERS: Schizophrenia type: unspecified Qualified Code(s): F 20.9 - Schizophrenia, unspecified (5) Hypoxia: (6) Hypercarbia: (7) Chronic respiratory failure: QUALIFIERS: Respiratory failure complication: hypoxia and hypercapnia Qualified Code(s): J96.11 - Chronic respiratory failure with hypoxia; J96.12 - Chronic respiratory failure with hypercapnia PLAN: Plan Discussed with ED physician to give patient Solu-Medrol Chest x-ray was visualized with results as no new infiltrates. I agree with radiology interpretation Labs including ABGs were reviewed. ABG showed hypoxia and hypercapnia Scheduled DuoNeb Albuterol as needed Solu-Medrol ordered. With history of recent aspiration pneumonia Levaquin ordered. Monitor BMP and CBC Continue home psychotropic medications DVT prophylaxis Subcutaneous Lovenox ordered. Discussed advance care planning with patient and mother who was at the bedside. Shared decision to make patient a full code. Mother who was at the bedside is surrogate decision maker. Time spent in the patient's overall evaluation,decision-making process, review of diagnostic data, adjustment of management, discussion with other providers, nursing and ancillary staff involved in patient's care documentation, 70 minutes. Charges/Coding Visit Charges Inpatient E&M: 17841 Init Hosp L3
--- NOTE | 2023-12-08 18:17 | NURSING ---
THAIS RODRIGUEZ RESP FAILURE
[2023-12-08] MEDS: MethylPREDNISolone 125 MG/2 ML Vial IV (18:47)
[2023-12-08] MEDS: Ammonium Lactate 225 gm Bottle 1 APPLIC TOPICAL (21:45)
[2023-12-09] VITALS (9 sets, daily range): BP systolic 98–120; BP diastolic 59–66; PULSE 66–91; RESP 12–20; TEMP 36.6–37.2; O2SAT 91–98
[2023-12-09] MEDS: Ipratropium/Albuterol Sulfate 3 ML AMPUL.NEB INHALATION ×3 (02:06→22:27)
[2023-12-09 06:57] LABS: Absolute Neutrophil Count 6.1 X10^3/uL (2.0-7.7); Basophil# 0.01 X10^3/uL; Basophil% 0.2 % (0-1); Hematocrit 43.8 % (40-54); Hemoglobin 13.2 g/dL (13.0-16.5); Mean Corp Hgb Conc 30.1 g/dL (32-36); Mean Corpuscular Hgb 32.2 pg (27.0-32.0); Mean Corpuscular Volume 106.8 fL (80-94); Mean Platelet Vol. 9.3 fl (6.2-12.0); Monocyte% 1.5 % (0-10); NRBC Flagged by Analyzer 0.3 % (0-5); Neutrophil # 6.08 X10^3/uL (2.7-7.7); Neutrophil % 91.5 % (47-70); POSITIVE DIFFERENTIAL YES; POSITIVE MORPHOLOGY YES; Platelet Count 170 K/mm3 (150-450); RBC Distribution Width CV 17.3 % (11.6-14.6); RBC Distribution Width SD 66.3 fl (35.1-43.9); White Blood Count 6.6 K/mm3 (4.4-11.0)
[2023-12-09 07:09] LABS: Anion Gap 1 (5-15); BUN 8 mg/dL (7-18); BUN/Creat Ratio 7.3 RATIO (10-20); Calcium,Total 9.1 mg/dL (8.5-10.1); Chloride 107 mmol/L (98-107); EST Glomerular Filtration Rate 72 mL/min (>60); Est Glom Filt Rate - Afr Amer 87 mL/min (>60); Estimated Creatinine Clearance 76.95 ml/min; Glucose 145 mg/dL (74-106); Sodium Level 141 mmol/L (136-145)
--- NOTE | 2023-12-09 07:29 | PN.HOSP_ITS ---
Reason for Visit Reason for Visit: Diagnoses Schizophrenia, unspecified (12/08/23) Venous insufficiency (chronic) (peripheral) (12/08/23) Chronic obstructive pulmonary disease with (acute) exacerbation (12/08/23) Chronic respiratory failure with hypoxia (12/08/23) Chronic respiratory failure with hypercapnia (12/08/23) Acute bronchospasm (12/08/23) Other abnormalities of breathing (12/08/23) Hypoxemia (12/08/23) Objective Data Objective Data Vital Signs: Vital Signs Temp Pulse Resp BP Pulse Ox O2 Del Method O2 Flow Rate 98.9 F 70 20 H 98/61 91 Nasal Cannula 5 12/09/23 05:00 12/09/23 05:00 12/09/23 05:00 12/09/23 05:00 12/09/23 05:00 12/09/23 05:00 12/09/23 05:00 FiO2 35 12/09/23 02:06 Oxygen Flow Rate (L/min) 5 Oxygen Delivery Method Nasal Cannula Weight: 199 lb Body Mass Index (BMI) 30.2 Intake & Output: Intake and Output for Last 24 Hours 12/07/23 12/08/23 12/09/23 23:59 23:59 23:59 Intake Total 0 / 0 Output Total 1000 / 1000 Balance -1000 / -1000 Lab / Micro Data 12/09/23 06:10 12/09/23 06:10 Labs: Laboratory Results - last 24 hr 12/08/23 16:30: WBC 8.2, RBC 4.17 L, Hgb 13.7, Hct 44.7, MCV 107.2 H, MCH 32.9 H , MCHC 30.6 L, RDW Std Deviation 68.0 H, RDW Coeff of Babatunde 17.7 H, Plt Count 171, MPV 9.8, Immature Gran % (Auto) 0.700, Neut % (Auto) 76.8 H, Lymph % (Auto) 12.4 L, Mchenry % (Auto) 8.5, Eos % (Auto) 1.2, Baso % (Auto) 0.4, Absolute Neuts (auto) 6.3, Absolute Lymphs (auto) 1.02, Nucleated RBC % 0.5, Platelet Estimate ADEQUATE, RBC Morphology N CHROM, Anisocytosis 1+, Macrocytosis 1+, Sodium 134 L , Potassium 4.4, Chloride 100, Carbon Dioxide 33.0 H, Anion Gap 1 L, BUN 6 L, Creatinine 1.20, Estim Creat Clear Calc 72.27, Est GFR (MDRD) Af Amer 79, Est GFR (MDRD) Non-Af 65, BUN/Creatinine Ratio 5.0 L, Glucose 110 H, Lactic Acid 1.0, Calcium 8.8, Total Bilirubin 0.60, AST 10 L, ALT 19, Alkaline Phosphatase 96, Troponin I High Sens 11, B-Natriuretic Peptide 64.0, Total Protein 7.2, Albumin 3.2, Globulin 4.0, Albumin/Globulin Ratio 0.8 L 12/09/23 06:10: WBC 6.6, RBC 4.10 L, Hgb 13.2, Hct 43.8, MCV 106.8 H, MCH 32.2 H , MCHC 30.1 L, RDW Std Deviation 66.3 H, RDW Coeff of Babatunde 17.3 H, Plt Count 170, MPV 9.3, Immature Gran % (Auto) 0.800, Neut % (Auto) 91.5 H, Lymph % (Auto) 6.0 L, Mchenry % (Auto) 1.5, Eos % (Auto) 0.0, Baso % (Auto) 0.2, Absolute Neuts (auto) 6.1, Absolute Lymphs (auto) 0.40 L, Nucleated RBC % 0.3, Sodium 141, Potassium 5.0, Chloride 107, Carbon Dioxide 33.0 H, Anion Gap 1 L, BUN 8, Creatinine 1.10, Estim Creat Clear Calc 76.95, Est GFR (MDRD) Af Amer 87, Est GFR (MDRD) Non-Af 72, BUN/Creatinine Ratio 7.3 L, Glucose 145 H, Calcium 9.1 Micro: Microbiology 12/08/23 16:30 Mucosa - Nose SARS-CoV-2, Influenza & RSV (PCR) - Final ABG Data ABG results: ABG 12/08/23 16:46 Specimen Type ART Sample Site R Radial pH 7.31 L Bicarbonate Actual 33.4 H Total CO2 36 Base Excess 7 H O2 Saturation 91 L O2 % 4.0 ABG pCO2 65.9 H ABG pO2 69 L Oj Test Positive O2 Delivery Device Cannula Vent Mode Not entered Radiography Diagnostic Testing: Radiology Impression Chest X-Ray 12/08/23 16:35 IMPRESSION: Persistent mild bibasilar interstitial thickening in both lower lobes slightly improvement since previous exam in the right lower lobe No new infiltrates] significant change Electronically Signed: Erick Zavala MD at 17:07 EDT , Rhythm Strip Rhythm Strip: Sinus Rhythm Rate: 89 Ectopy: None Physical Exam Narrative Seen and examined. Patient states he is very angry and eating fast. History of schizophrenia with pressured speech and sometimes disorganized behavior and thoughts. Was admitted with shortness of breath and cough, with suspicion of aspiration. No fever. Physical exam General: Alert, Oriented x3, Cooperative. Obesity grade 1 BMI 30.3 kg/m? HEENT: Atraumatic, PERRLA, EOMI, Normocephalic Oral: No Gingival or Mucosal Lesions/ Ulcerations Neck: Supple, No JVD, Negative Carotid Bruits Chest wall/Lungs: Air entry diminished in bilateral lung bases. Mild bilateral wheezing/rhonchi. Cardiovascular: Regular rate, Regular Rhythm, Normal S1, Normal S2, No M/G/R Abdomen: Bowel Sounds Present, Soft, Non Tender, Non-Distended : No dysuria. No renal angle tenderness. No suprapubic tenderness. Extremities: Mild edema edema, Capillary Refill Less than 3 Seconds Skin: No rashes, No breakdown Musculoskeletal: No Tenderness to Palpation of Joints or Extremities. Bilateral below-knee Tomas wrap bandage. Neurological: Cranial nerves II-XII grossly intact, DTR 2+/4. No acute focal neurological deficit. Psych/Mental Status: Flat affect, pressured speech Assessment & Plan Assessment/Plan (1) COPD with acute exacerbation: (2) Chronic venous stasis dermatitis of both lower extremities: (3) Acute bronchospasm: (4) Schizophrenia: QUALIFIERS: Schizophrenia type: unspecified Qualified Code(s): F 20.9 - Schizophrenia, unspecified (5) Hypoxia: (6) Hypercarbia: (7) Chronic respiratory failure: QUALIFIERS: Respiratory failure complication: hypoxia and hypercapnia Qualified Code(s): J96.11 - Chronic respiratory failure with hypoxia; J96.12 - Chronic respiratory failure with hypercapnia PLAN: Plan 63-year-old gentleman with history of chronic hypoxic hypercarbic, combined respiratory failure was admitted with increased and persistent shortness of breath 1. COPD exacerbation probably due to acute bronchitis/viral bronchitis: Patient is being admitted in PCU. Chest x-ray initially reviewed. No acute infiltrate but mild persistent bibasilar interstitial thickening both lower lobes with slight improvement. Patient is being managed on scheduled bronchodilator, IV Solu-Medrol, Mucinex, incentive spirometry and Pep. ABG reviewed. 7.3 /65.9% on 4 L of oxygen suggestive of respiratory acidosis with hypoxia with increased Aa gradient With recent history of aspiration, Levaquin was changed to IV Unasyn ordered. Speech therapy ordered. Patient has a rapid history of eating and swallowing therefore risk for aspiration with history of schizophrenia. 2. Schizophrenia and bipolar disorder Continue home psychotropic medications. Patient on lithium carbonate, olanzapine and fluphenazine 25 mg 2 weekly injection. 3. GERD history of tobacco use: Patient is still everyday current smoker 4. Hypertension on amlodipine DVT prophylaxis Subcutaneous Lovenox ordered. Full code Charges/Coding Visit Charges Inpatient E&M: 71106 Subs Hosp L2
[2023-12-09] MEDS: 0.9% Saline Lock 10 ML Syringe IV ×4 (08:34→16:03)
[2023-12-09] MEDS: Ampicillin/Sulbactam 3 GM in 0.9% Normal Saline (100mL MB+) 100 ML IV ×3 (08:34→21:33)
[2023-12-09] MEDS: Pantoprazole Sodium 20 MG Tablet PO ×2 (09:54→21:32)
[2023-12-09] MEDS: Montelukast 10 MG Tablet PO (09:55)
[2023-12-09] MEDS: OLANZapine 10 MG Tablet PO (09:55)
[2023-12-09] MEDS: Spironolactone 25 MG Tablet PO (09:55)
[2023-12-09] MEDS: Ammonium Lactate 225 gm Bottle 1 APPLIC TOPICAL ×2 (09:56→21:33)
[2023-12-09] MEDS: Enoxaparin 40 MG/0.4 ML Syringe SC (09:57)
[2023-12-09] MEDS: 0.9% Normal Saline (250mL Bag) 250 ML 15 ML IV (14:47)
--- NOTE | 2023-12-09 20:32 | CPS ---
Pt refusing to wear BIPAP at this time
[2023-12-09] MEDS: Atorvastatin Calcium 10 MG Tablet PO (21:31)
[2023-12-09] MEDS: Lithium Carbonate 300mg Capsule 600 MG PO (21:32)
[2023-12-09] MEDS: Tamsulosin HCl 0.4 MG Capsule PO (21:32)
[2023-12-09] MEDS: OLANZapine 10 MG Tablet 20 MG PO (21:33)
[2023-12-10] VITALS (10 sets, daily range): BP systolic 99–135; BP diastolic 53–65; PULSE 68–91; RESP 16–20; TEMP 36.2–36.9; O2SAT 93–99
[2023-12-10] MEDS: Ipratropium/Albuterol Sulfate 3 ML AMPUL.NEB INHALATION ×5 (03:25→23:09)
[2023-12-10] MEDS: Ampicillin/Sulbactam 3 GM in 0.9% Normal Saline (100mL MB+) 100 ML IV ×3 (05:40→22:03)
[2023-12-10 07:00] LABS: Absolute Lymphocyte Count 0.36 X10^3/uL (0.83-4.51); Absolute Neutrophil Count 12.3 X10^3/uL (2.0-7.7); Basophil# 0.01 X10^3/uL; Basophil% 0.1 % (0-1); Hematocrit 42.2 % (40-54); Hemoglobin 12.9 g/dL (13.0-16.5); Lymphocyte # 0.36 X10^3/ul (0.83-4.51); Lymphocyte % 2.7 % (19-41); Mean Corp Hgb Conc 30.6 g/dL (32-36); Mean Corpuscular Hgb 32.8 pg (27.0-32.0); Mean Corpuscular Volume 107.4 fL (80-94); Mean Platelet Vol. 9.4 fl (6.2-12.0); Monocyte# 0.42 X10^3/uL; Monocyte% 3.2 % (0-10); NRBC Flagged by Analyzer 0 % (0-5); Neutrophil % 93.2 % (47-70); POSITIVE DIFFERENTIAL YES; POSITIVE MORPHOLOGY YES; Platelet Count 160 K/mm3 (150-450); RBC Distribution Width CV 17.6 % (11.6-14.6); RBC Distribution Width SD 67.7 fl (35.1-43.9); Red Blood Count 3.93 M/mm3 (4.6-6.2); White Blood Count 13.2 K/mm3 (4.4-11.0)
[2023-12-10 07:08] LABS: Differential Indicated SCAN CRITERIA MET
[2023-12-10 07:36] LABS: Anisocytosis 1+; Polychromasia RARE
[2023-12-10] MEDS: OLANZapine 10 MG Tablet PO (09:03)
[2023-12-10] MEDS: Pantoprazole Sodium 20 MG Tablet PO ×2 (09:03→21:58)
[2023-12-10] MEDS: Montelukast 10 MG Tablet PO (09:03)
[2023-12-10] MEDS: Spironolactone 25 MG Tablet PO (09:03)
[2023-12-10] MEDS: Enoxaparin 40 MG/0.4 ML Syringe SC (09:04)
[2023-12-10] MEDS: amLODIPine 5 MG Tablet PO (09:04)
[2023-12-10] MEDS: Ammonium Lactate 225 gm Bottle 1 APPLIC TOPICAL ×2 (09:05→22:03)
[2023-12-10 10:41] LABS: Anion Gap 5 (5-15); BUN 15 mg/dL (7-18); BUN/Creat Ratio 14.6 RATIO (10-20); Calcium,Total 8.7 mg/dL (8.5-10.1); Chloride 104 mmol/L (98-107); Creatinine, Serum 1.03 mg/dL (0.70-1.30); EST Glomerular Filtration Rate 78 mL/min (>60); Est Glom Filt Rate - Afr Amer 94 mL/min (>60); Estimated Creatinine Clearance 82.18 ml/min; Glucose 136 mg/dL (74-106); Potassium 4.8 mmol/L (3.5-5.1); Sodium Level 137 mmol/L (136-145)
--- NOTE | 2023-12-10 10:58 | CASEMGMT ---
Social Work Updates sent to [facility]. Madina Kang, GREIGE GOODS EXAMINER, HOSE SEAMER
--- NOTE | 2023-12-10 16:55 | PCM.PN.HOSP ---
Reason for Visit Reason for Visit: Diagnoses Schizophrenia, unspecified (12/08/23) Venous insufficiency (chronic) (peripheral) (12/08/23) Chronic obstructive pulmonary disease with (acute) exacerbation (12/08/23) Chronic respiratory failure with hypoxia (12/08/23) Chronic respiratory failure with hypercapnia (12/08/23) Acute bronchospasm (12/08/23) Other abnormalities of breathing (12/08/23) Hypoxemia (12/08/23) Subjective Subjective Patient feels his breathing is slowly improving, visiting with family at this time, not having significant cough, does not feel he is having much swelling in lower extremities Objective Data Objective Data Vital Signs: Vital Signs Temp Pulse Resp BP Pulse Ox O2 Del Method O2 Flow Rate 97.2 F L 85 18 121/64 H 95 Nasal Cannula 3 12/10/23 15:55 12/10/23 15:55 12/10/23 15:55 12/10/23 15:55 12/10/23 16:01 12/10/23 16:01 12/10/23 16:01 FiO2 35 12/09/23 02:06 Oxygen Flow Rate (L/min) 3 Oxygen Delivery Method Nasal Cannula Weight: 90.265 kg Body Mass Index (BMI) 30.2 Intake & Output: Intake and Output for Last 24 Hours 12/08/23 12/09/23 12/10/23 23:59 23:59 23:59 Intake Total 344.75 / 1544.75 1824 / 1824 Output Total 1000 / 3000 4950 / 4950 Balance -655.25 / -1455.25 -3126 / -3126 Lab / Micro Data 12/10/23 06:19 12/10/23 06:19 Labs: Laboratory Results - last 24 hr 12/10/23 06:19: WBC 13.2 H, RBC 3.93 L, Hgb 12.9 L, Hct 42.2, MCV 107.4 H, MCH 32.8 H, MCHC 30.6 L, RDW Std Deviation 67.7 H, RDW Coeff of Babatunde 17.6 H, Plt Count 160, MPV 9.4, Immature Gran % (Auto) 0.800, Neut % (Auto) 93.2 H, Lymph % (Auto) 2.7 L, Burleigh % (Auto) 3.2, Eos % (Auto) 0.0, Baso % (Auto) 0.1, Absolute Neuts (auto) 12.3 H, Absolute Lymphs (auto) 0.36 L, Nucleated RBC % 0, Polychromasia RARE, Anisocytosis 1+, Sodium 137, Potassium 4.8, Chloride 104, Carbon Dioxide 28.0, Anion Gap 5, BUN 15, Creatinine 1.03, Estim Creat Clear Calc 82.18, Est GFR (MDRD) Af Amer 94, Est GFR (MDRD) Non-Af 78, BUN/Creatinine Ratio 14.6, Glucose 136 H, Calcium 8.7 Micro: Microbiology 12/08/23 16:30 Mucosa - Nose SARS-CoV-2, Influenza & RSV (PCR) - Final Rhythm Strip Rhythm Strip: Sinus Rhythm Rate: 89 Ectopy: None Physical Exam Narrative General: Alert, no apparent distress HEENT: Atraumatic, normocephalic Eyes: Anicteric, normal conjunctiva, extraocular movements grossly intact Neck: Supple Respiratory: Slight crackles at bases right greater than left, normal respiratory effort Cardiovascular: Regular rate GI: Soft, nontender, nondistended Extremities: No significant pitting edema Musculoskeletal: Moving all extremities Neuro: No overt focal neurological deficits Skin: No rashes appreciated Psych: Cooperative Assessment & Plan Assessment/Plan (1) COPD exacerbation: PLAN: Plan # Acute hypoxic respiratory failure secondary to COPD exacerbation with concern for aspiration -On arrival patient tachypneic with respiratory rate in 20s to 30s and was 91% on 4 L O2 despite not being on home O2 -Patient felt to be in COPD exacerbation but has history of aspiration and there is also concern that this may have contributed -Patient on Unasyn -Nebs, Methylpred # History of dysphagia -There is concern for aspiration on presentation -Awaiting speech eval # Schizophrenia -Patient on lithium and Zyprexa, these been continued -If patient will still be here Sunday mother reports she will need to get fluphenazine from assisted living so patient can receive it while in hospital so he does not decompensate #Tobacco use -Advise cessation -Nicotine replacement available if desired #GERD -Continue PPI #Chronic BPH with obstruction -Continue home medications #DVT ppx: Lovenox subcu Callie Manning MD Time spent in the patient's overall evaluation,decision-making process, review of diagnostic data, adjustment of management, discussion with other providers, nursing nursing and ancillary staff involved in patient's care documentation, 36 Minutes Charges/Coding Visit Charges Inpatient E&M: 92082 Subs Hosp L2
[2023-12-10] MEDS: Tamsulosin HCl 0.4 MG Capsule PO (21:59)
[2023-12-10] MEDS: Lithium Carbonate 300mg Capsule 600 MG PO (21:59)
[2023-12-10] MEDS: Atorvastatin Calcium 10 MG Tablet PO (21:59)
[2023-12-10] MEDS: OLANZapine 10 MG Tablet 20 MG PO (22:07)
--- NOTE | 2023-12-10 23:17 | CPS ---
patient states that he will not wear the BIPAP tonight because he will end up tearing it off unknowingly in his sleep. 3L NC 91%
[2023-12-11] VITALS (11 sets, daily range): BP systolic 101–140; BP diastolic 63–83; PULSE 65–97; RESP 18–23; TEMP 36.1–37.1; O2SAT 90–99
[2023-12-11] MEDS: Ipratropium/Albuterol Sulfate 3 ML AMPUL.NEB INHALATION ×6 (03:24→23:47)
[2023-12-11] MEDS: Ampicillin/Sulbactam 3 GM in 0.9% Normal Saline (100mL MB+) 100 ML IV ×3 (04:33→20:24)
--- NOTE | 2023-12-11 04:58 | RAD_ITS ---
EXAM: XR CHEST, 1 VIEW CLINICAL INDICATION: aspiration TECHNIQUE: Frontal view of the chest. COMPARISON: Previous chest radiograph of 12/08/2023. FINDINGS: LUNGS AND PLEURAL SPACES: The previously noted bibasilar infiltrates have resolved except for a few bands of discoid atelectasis. No patchy basilar airspace disease is seen to indicate aspiration pneumonitis at this time. No pneumothorax or pleural effusion. HEART: Upper normal heart size. Normal pulmonary vasculature. MEDIASTINUM: Thoracic aorta remains minimally elongated. BONES/JOINTS: No acute osseous abnormality. SOFT TISSUES: Unremarkable. RAD/Chest 1 View (Portable) IMPRESSION: Bibasilar discoid atelectasis. No aspiration pneumonitis identified. Electronically Signed: Frank Kent MD at 6:37 EDT ,
[2023-12-11 05:49] LABS: Absolute Lymphocyte Count 0.27 X10^3/uL (0.83-4.51); Absolute Neutrophil Count 12.4 X10^3/uL (2.0-7.7); Basophil# 0.01 X10^3/uL; Basophil% 0.1 % (0-1); Hematocrit 47.1 % (40-54); Hemoglobin 14.3 g/dL (13.0-16.5); Lymphocyte # 0.27 X10^3/ul (0.83-4.51); Mean Corp Hgb Conc 30.4 g/dL (32-36); Mean Corpuscular Hgb 32.6 pg (27.0-32.0); Mean Corpuscular Volume 107.5 fL (80-94); Mean Platelet Vol. 9.3 fl (6.2-12.0); Monocyte# 0.46 X10^3/uL; Monocyte% 3.5 % (0-10); NRBC Flagged by Analyzer 0 % (0-5); Neutrophil # 12.35 X10^3/uL (2.7-7.7); Neutrophil % 93.3 % (47-70); POSITIVE DIFFERENTIAL YES; POSITIVE MORPHOLOGY YES; Platelet Count 166 K/mm3 (150-450); Red Blood Count 4.38 M/mm3 (4.6-6.2); White Blood Count 13.2 K/mm3 (4.4-11.0)
[2023-12-11 06:07] LABS: Differential Indicated SCAN CRITERIA MET
[2023-12-11 06:17] LABS: Anion Gap 2 (5-15); BUN 18 mg/dL (7-18); BUN/Creat Ratio 15.9 RATIO (10-20); Calcium,Total 9.4 mg/dL (8.5-10.1); Chloride 104 mmol/L (98-107); Creatinine, Serum 1.13 mg/dL (0.70-1.30); EST Glomerular Filtration Rate 70 mL/min (>60); Est Glom Filt Rate - Afr Amer 85 mL/min (>60); Estimated Creatinine Clearance 74.91 ml/min; Glucose 139 mg/dL (74-106); Potassium 5.1 mmol/L (3.5-5.1); Sodium Level 138 mmol/L (136-145)
[2023-12-11 07:16] LABS: Anisocytosis 1+; Differential Comment SCANNED; Stomatocyte 1+
--- NOTE | 2023-12-11 11:02 | CASEMGMT ---
Speech Therapy is recommending supervision during eating. STEVE noted last time this was recommended patient was not able to return to [facility]. STEVE called [facility] and spoke with Margie. Margie said patient cannot return to [facility] while requiring supervision during eating. Margie said even if patient's mom and/or significant other are present when he eats he still cannot return. SW will talk with patient. Maliha Infante SLITTER HELPER KIRBY
[2023-12-11] MEDS: Spironolactone 25 MG Tablet PO (11:07)
[2023-12-11] MEDS: Pantoprazole Sodium 20 MG Tablet PO ×2 (11:07→20:24)
[2023-12-11] MEDS: OLANZapine 10 MG Tablet PO (11:07)
[2023-12-11] MEDS: Montelukast 10 MG Tablet PO (11:07)
[2023-12-11] MEDS: Enoxaparin 40 MG/0.4 ML Syringe SC (11:07)
[2023-12-11] MEDS: Ammonium Lactate 225 gm Bottle 1 APPLIC TOPICAL ×2 (11:07→20:25)
[2023-12-11] MEDS: amLODIPine 5 MG Tablet PO (11:07)
--- NOTE | 2023-12-11 11:20 | CASEMGMT ---
SW met with patient. Introduced self and role at [facility]. SW explained to patient that Speech is recommending supervision while eating and [facility] will still not allow this. Patient verbalized understanding. Patient asked if he would ever be able to go back to [facility]. SW told patient that as long as he has to have supervision with eating he won't be able to go back there. Patient was okay with [facility] as he was just there. SW asked patient if he wanted SW to call his mom. Patient declined. SW asked Elisabet to make a referral to [facility] for patient. Hopefully patient can get approved for intermediate as PT/OT is not recommending any further therapy. However, patient does require assistance with eating and medication administration. Plan: d/c to [facility] pending acceptance and insurance approval. Maliha Infante SEM MANAGER KIRBY
--- NOTE | 2023-12-11 11:35 | CASEMGMT ---
Discharge Planning Referral sent via [facility] to [facility]. Elisabet Mcmillan DC Planning Asst.
--- NOTE | 2023-12-11 14:52 | CASEMGMT ---
CC accepted patient. SW notified patient that [facility] can take him when he is ready. Plan: d/c to [facility] under intermediate level of care pending insurance approval. Maliha ORR
--- NOTE | 2023-12-11 14:58 | PCM.PN.HOSP ---
Reason for Visit Reason for Visit: Diagnoses Schizophrenia, unspecified (12/08/23) Venous insufficiency (chronic) (peripheral) (12/08/23) Chronic obstructive pulmonary disease with (acute) exacerbation (12/08/23) Chronic respiratory failure with hypoxia (12/08/23) Chronic respiratory failure with hypercapnia (12/08/23) Acute bronchospasm (12/08/23) Other abnormalities of breathing (12/08/23) Hypoxemia (12/08/23) Subjective Subjective Patient had another episode of suspected aspiration overnight but O2 has continued to be weaned and respiratory status stable today. Evaluated by speech and still needs direct supervision so patient will need placement. Reports he is feeling better overall Objective Data Objective Data Vital Signs: Vital Signs Temp Pulse Resp BP Pulse Ox O2 Del Method O2 Flow Rate 98.8 F 88 18 128/71 H 99 Nasal Cannula 3 12/11/23 08:40 12/11/23 11:00 12/11/23 08:40 12/11/23 11:00 12/11/23 08:40 12/11/23 08:40 12/11/23 08:40 FiO2 35 12/09/23 02:06 Oxygen Flow Rate (L/min) 3 Oxygen Delivery Method Nasal Cannula Weight: 90.265 kg Body Mass Index (BMI) 30.2 Intake & Output: Intake and Output for Last 24 Hours 12/09/23 12/10/23 12/11/23 23:59 23:59 23:59 Intake Total 344.75 / 1544.75 1936 / 2296 2362 / 2362 Output Total 1000 / 3000 5550 / 5550 3900 / 3900 Balance -655.25 / -1455.25 -3614 / -3254 -1538 / -1538 Lab / Micro Data 12/11/23 05:33 12/11/23 05:33 Labs: Laboratory Results - last 24 hr 12/11/23 05:33: WBC 13.2 H, RBC 4.38 L, Hgb 14.3, Hct 47.1, MCV 107.5 H, MCH 32.6 H, MCHC 30.4 L, RDW Std Deviation 69.0 H, RDW Coeff of Babatunde 18.0 H, Plt Count 166, MPV 9.3, Immature Gran % (Auto) 1.100 H, Neut % (Auto) 93.3 H, Lymph % (Auto) 2.0 L, Whiteside % (Auto) 3.5, Eos % (Auto) 0.0, Baso % (Auto) 0.1, Absolute Neuts (auto) 12.4 H, Absolute Lymphs (auto) 0.27 L, Nucleated RBC % 0, Differential Comment SCANNED, Anisocytosis 1+, Stomatocytes 1+, Sodium 138, Potassium 5.1, Chloride 104, Carbon Dioxide 32.0, Anion Gap 2 L, BUN 18, Creatinine 1.13, Estim Creat Clear Calc 74.91, Est GFR (MDRD) Af Amer 85, Est GFR (MDRD) Non-Af 70, BUN/Creatinine Ratio 15.9, Glucose 139 H, Calcium 9.4 Micro: Microbiology 12/08/23 16:30 Mucosa - Nose SARS-CoV-2, Influenza & RSV (PCR) - Final Radiography Diagnostic Testing: Radiology Impression Chest X-Ray 12/11/23 04:58 IMPRESSION: Bibasilar discoid atelectasis. No aspiration pneumonitis identified. Electronically Signed: Frank Kent MD at 6:37 EDT , Rhythm Strip Rhythm Strip: Sinus Rhythm Rate: 89 Ectopy: None Physical Exam Narrative General: Alert, no apparent distress HEENT: Atraumatic, normocephalic Eyes: Anicteric, normal conjunctiva, extraocular movements grossly intact Neck: Supple Respiratory: Normal respiratory effort, slight crackles in the bases Cardiovascular: Regular rate GI: Soft, nontender, nondistended Extremities: No significant pitting edema Musculoskeletal: Moving all extremities Neuro: No overt focal neurological deficits Skin: No rashes appreciated Psych: Cooperative Assessment & Plan Assessment/Plan (1) COPD exacerbation: PLAN: Plan # Acute hypoxic respiratory failure secondary to COPD exacerbation with concern for aspiration -On arrival patient tachypneic with respiratory rate in 20s to 30s and was 91% on 4 L O2 despite not being on home O2 -Patient felt to be in COPD exacerbation but has history of aspiration and there is also concern that this may have contributed -Patient on Unasyn -Nebs, Methylpred -12/10: Patient had another possible aspiration event overnight when he began gulping down water. Chest x-ray with atelectasis but no acute abnormalities. Patient now 95% on room air. Remains on nebulizers and methylprednisone. If respiratory status is stable tomorrow can likely go to SNF once insurance approves. Continuing on Unasyn at this time # History of dysphagia -There is concern for aspiration on presentation -Awaiting speech eval -12/10: Speech eval noted, patient needs direct supervision and therefore will need to be placed, accepted at [facility] pending insurance approval # Schizophrenia -Patient on lithium and Zyprexa, these been continued -If patient will still be here Sunday mother reports she will need to get fluphenazine from assisted living so patient can receive it while in hospital so he does not decompensate -12/10: Patient improving, may be medically cleared as early as tomorrow if he continues to do well post aspiration event and will go to [facility] pending insurance approval. Patient will need fluphenazine tomorrow, mother indicated that she may be able to bring this so that this can be given Chronic medical problems: #Tobacco use -Advise cessation -Nicotine replacement available if desired #GERD -Continue PPI #Chronic BPH with obstruction -Continue home medications #DVT ppx: Lovenox subcu Callie Manning MD Time spent in the patient's overall evaluation,decision-making process, review of diagnostic data, adjustment of management, discussion with other providers, nursing nursing and ancillary staff involved in patient's care documentation, 35 Minutes Charges/Coding Visit Charges Inpatient E&M: 85141 Subs Hosp L2
[2023-12-11] MEDS: 0.9% Saline Lock 10 ML Syringe IV (15:08)
[2023-12-11] MEDS: Atorvastatin Calcium 10 MG Tablet PO (20:24)
[2023-12-11] MEDS: Tamsulosin HCl 0.4 MG Capsule PO (20:24)
[2023-12-11] MEDS: Lithium Carbonate 300mg Capsule 600 MG PO (20:24)
[2023-12-11] MEDS: OLANZapine 10 MG Tablet 20 MG PO (20:25)
[2023-12-12 03:00] VITALS: BP 126/74; PULSE 77; RESP 18; TEMP 36.2; O2SAT 94
[2023-12-12] MEDS: Ampicillin/Sulbactam 3 GM in 0.9% Normal Saline (100mL MB+) 100 ML IV ×2 (05:24→15:07)
[2023-12-12 07:00] VITALS: PULSE 70
[2023-12-12 07:18] LABS: Absolute Lymphocyte Count 0.31 X10^3/uL (0.83-4.51); Absolute Neutrophil Count 10.6 X10^3/uL (2.0-7.7); Basophil# 0.01 X10^3/uL; Basophil% 0.1 % (0-1); Hematocrit 45.6 % (40-54); Lymphocyte # 0.31 X10^3/ul (0.83-4.51); Lymphocyte % 2.7 % (19-41); Mean Corp Hgb Conc 30.7 g/dL (32-36); Mean Corpuscular Hgb 32.9 pg (27.0-32.0); Mean Platelet Vol. 9.7 fl (6.2-12.0); Monocyte% 4.3 % (0-10); NRBC Flagged by Analyzer 0 % (0-5); Neutrophil # 10.62 X10^3/uL (2.7-7.7); POSITIVE DIFFERENTIAL YES; POSITIVE MORPHOLOGY YES; Platelet Count 170 K/mm3 (150-450); RBC Distribution Width CV 18.3 % (11.6-14.6); RBC Distribution Width SD 71.3 fl (35.1-43.9); Red Blood Count 4.26 M/mm3 (4.6-6.2); White Blood Count 11.5 K/mm3 (4.4-11.0)
[2023-12-12 07:19] LABS: Differential Indicated SCAN CRITERIA MET
[2023-12-12] MEDS: Ipratropium/Albuterol Sulfate 3 ML AMPUL.NEB INHALATION ×2 (07:39→10:24)
[2023-12-12 07:41] VITALS: PULSE 75; RESP 18; O2SAT 93
[2023-12-12 09:00] VITALS: BP 117/66; PULSE 73; RESP 16; TEMP 36.8; O2SAT 96
[2023-12-12 09:21] LABS: Anion Gap 4 (5-15); BUN 26 mg/dL (7-18); BUN/Creat Ratio 21.8 RATIO (10-20); Calcium,Total 9.6 mg/dL (8.5-10.1); Chloride 107 mmol/L (98-107); Creatinine, Serum 1.19 mg/dL (0.70-1.30); EST Glomerular Filtration Rate 66 mL/min (>60); Est Glom Filt Rate - Afr Amer 80 mL/min (>60); Estimated Creatinine Clearance 71.13 ml/min; Glucose 118 mg/dL (74-106); Potassium 5.4 mmol/L (3.5-5.1); Sodium Level 139 mmol/L (136-145)
[2023-12-12 09:25] LABS: Anisocytosis 1+
[2023-12-12 10:24] VITALS: PULSE 85; RESP 18
[2023-12-12] MEDS: Spironolactone 25 MG Tablet PO (10:24)
[2023-12-12] MEDS: Enoxaparin 40 MG/0.4 ML Syringe SC (10:24)
[2023-12-12] MEDS: Montelukast 10 MG Tablet PO (10:24)
[2023-12-12] MEDS: OLANZapine 10 MG Tablet PO (10:24)
[2023-12-12] MEDS: amLODIPine 5 MG Tablet PO (10:24)
[2023-12-12] MEDS: Pantoprazole Sodium 20 MG Tablet PO (10:24)
[2023-12-12] MEDS: Ammonium Lactate 225 gm Bottle 1 APPLIC TOPICAL (10:31)
--- NOTE | 2023-12-12 10:50 | CASEMGMT ---
SW completed a PASRR and sent to [facility] to assist in them obtaining intermediate level of care for patient. Maliha Infante SALVAGE WINDER AND INSPECTOR KIRBY
--- NOTE | 2023-12-12 11:14 | CASEMGMT ---
[facility] can admit patient today. SW notified physician. Plan: d/c to [facility] under intermediate level of care. Maliha ORR
--- NOTE | 2023-12-12 12:30 | CASEMGMT ---
SW notified patient and his mom that patient will be going to [facility] today. Plan: d/c to [facility] under intermediate level of care. Physicians will transport patient. Maliha ORR
[2023-12-12 15:00] VITALS: BP 131/68; PULSE 81; PULSE 93; RESP 16; TEMP 36.6; O2SAT 92
--- NOTE | 2023-12-12 16:36 | PCM.TXEXTCAR ---
Diet Diet Order/Speech Therapy: 12/11/23 09:30 Diet: Regular - General Food consistency:: Easy to Chew Liquid Consistency:: Regular/Thin Diet Comments: DIRECT STAFF SUP, CHIN TUCK EACH SIP, SMALL SIPS Routine Orders/Code Status Suppository Type: Dulcolax 10mg Suppository Frequency: Daily PRN O2 Liters per Minute: 2 O2 Frequency: Continuous Keep PO Greater than or Equal to (%): 92 Code Status: Full Code Therapies Speech Therapy: Eval and Treat Problem/Diagnosis (1) COPD exacerbation: Status: Acute Code(s): J44.1 - Chronic obstructive pulmonary disease with (acute) exacerbation Plan # Acute hypoxic respiratory failure secondary to COPD exacerbation with aspiration #Recurrent aspiration # History of dysphagia # Schizophrenia #Tobacco use #GERD #Chronic BPH with obstruction 63-year-old male history of schizophrenia, COPD, aspiration pneumonia, dysphagia with aspiration, GERD, tobacco use who presented [facility] ED 12/08/2023 from assisted living with shortness of breath that started the same day as presentation. There was concern for aspiration as this has happened to him in the past, chest x-ray with no new infiltrates ABG showed hypoxia and hypercapnia. Patient started on nebs and Solu-Medrol for COPD exacerbation and antibiotics added due to the concern for aspiration. Patient was evaluated by speech therapy and had recommendations for direct supervision with meals due to this recurrent history and due to that patient cannot return to assisted living so he was accepted at [facility]. Patient did have 1 additional episode where he seemed to inhale water as he was trying to drink it very fast but additional modifications were made and this did not happen again. O2 was weaned and can likely be weaned off in the near future. As patient has been on antibiotics will complete course with Augmentin and 5-day burst of prednisone. On day of discharge patient feeling much better, feels his breathing continues to improve. No new or acute complaints. Allergies/Procedures Done in Hospital Allergies codeine Adverse Reaction (Verified 12/08/23 16:08) Upset Stomach haloperidol (From Haldol) Adverse Reaction (Verified 12/08/23 16:08) Abd cramps/diarrhea haloperidol lactate (From Haldol) Adverse Reaction (Verified 12/08/23 16:08) Abd cramps/diarrhea ziprasidone Adverse Reaction (Verified 12/08/23 16:08) Unknown Type of Care/Length of Stay Estimated LOS: Convalescent Care Less Than 30 days Type of Care Needed: Intermediate Rehab Potential: Fair Prognosis: Fair Additional Orders/Day of Discharge Day of Discharge: 12/12/23 Dietary and Speech Recommendations Dietitian Recommendations/Changes: Rec continue regular diet Rec CARDIOPULMONARY SUPERVISOR consult if issues chewing/swallowing d/t recent aspiration PNA Discharge Plan Admission Admit Date/Time: 12/08/23 18:10 Primary Reason for Your Visit: Shortness of breath Attending Provider: Callie Manning Primary Care Provider: Ingris Chu DINING SERVICES DIRECTOR Consulting Providers: Jonh Mon; Martha Lu; David Ruvalcaba Instructions Patient Instructions: Dysphagia Aspiration Discharge Orders/Prescriptions Prescriptions: New ipratropium-albuterol 0.5 mg-3 mg(2.5 mg base)/3 mL Solution For Nebulization 3 ml inhalation Q6H Qty: 0 0RF amoxicillin-pot clavulanate 875-125 mg tablet 1 tab PO BID 4 Days Qty: 8 0RF prednisone 20 mg tablet 40 mg PO DAILY 5 Days Qty: 10 0RF Continued olanzapine 10 MG tablet 10 mg PO DAILY lithium carbonate 300 MG tablet extended release 600 mg PO QHS spironolactone 25 MG tablet 25 mg PO DAILY omeprazole 20 MG capsule 20 mg PO BID fluphenazine decanoate 25 MG/ML solution 25 mg IJ [id number] MDD Q 2 WEEKS simvastatin [Zocor] 20 MG tablet 20 mg PO QHS montelukast 10 MG tablet 10 mg PO DAILY olanzapine [Zyprexa] 20 MG tablet 20 mg PO QHS omega-3 fatty acids-fish oil 1 EACH capsule 2 capsule PO BID amlodipine 5 mg tablet 5 mg PO DAILY tamsulosin [Flomax] 0.4 mg capsule 0.4 mg PO QHS nicotine 7 mg/24 hr patch 24 hour 1 patch transdermal DAILY PRN (Reason: smoking cessation) multivitamin [Daily Multi-Vitamin] Tablet 1 tab PO DAILY ammonium lactate 12 % cream 1 applic topical BID Referrals / Follow Up: Ingris Chu DINING SERVICES DIRECTOR, DINING SERVICES DIRECTOR-C [Primary Care Provider] - Within 1 Week Disposition Disposition (needs filled in before D/C Order can be placed): NonSkilled NH/Intermed Care
--- NOTE | 2023-12-12 16:42 | DS.PCM_ITS ---
Providers Date of Admission: 12/08/23 Date of Discharge: 12/12/23 Primary Care Physician: MARY Chi Reason For Visit: ACUTE ON CHRONIC COPD Diagnosis Discharge Diagnosis (1) COPD exacerbation: Status: Acute Code(s): J44.1 - Chronic obstructive pulmonary disease with (acute) exacerbation Plan # Acute hypoxic respiratory failure secondary to COPD exacerbation with aspiration #Recurrent aspiration # History of dysphagia # Schizophrenia #Tobacco use #GERD #Chronic BPH with obstruction Medications at Discharge Home Medications lithium carbonate 300 mg tablet,extended release 600 mg PO QHS Bipolar 02/18/15 olanzapine 10 mg tablet 10 mg PO DAILY 02/18/15 omeprazole 20 mg capsule,delayed release 20 mg PO BID 02/18/15 spironolactone 25 mg tablet 25 mg PO DAILY 02/18/15 fluphenazine decanoate 25 mg/mL injection solution 25 mg IJ [id number] PARANOID SCHIZOPHRENIA 07/29/16 montelukast 10 mg tablet 10 mg PO DAILY 05/02/18 olanzapine 20 mg tablet (Zyprexa) 20 mg PO QHS 05/02/18 omega-3 fatty acids-fish oil 300 mg-1,000 mg capsule 2 capsule PO BID deficiency 05/02/18 simvastatin 20 mg tablet (Zocor) 20 mg PO QHS 05/02/18 amlodipine 5 mg tablet 5 mg PO DAILY bp 03/22/23 tamsulosin 0.4 mg capsule (Flomax) 0.4 mg PO QHS 03/22/23 ammonium lactate 12 % topical cream 1 applic topical BID skin irritation 10/30/23 multivitamin (Daily Multi-Vitamin tablet) 1 tab PO DAILY replacement 12/09/23 nicotine 7 mg/24 hr daily transdermal patch 1 patch transdermal DAILY PRN smoking cessation 12/09/23 amoxicillin 875 mg-potassium clavulanate 125 mg tablet 1 tab PO BID 4 days #8 tabs 12/12/23 ipratropium 0.5 mg-albuterol 3 mg (2.5 mg base)/3 mL nebulization soln 3 ml inhalation Q6H #0 mL 12/12/23 prednisone 20 mg tablet 40 mg (2 x 20 mg) PO DAILY 5 days #10 tabs 12/12/23 Hospital Course Summary of Care Provided Minutes Spent on Discharge: 32 Hospital Course: 63-year-old male history of schizophrenia, COPD, aspiration pneumonia, dysphagia with aspiration, GERD, tobacco use who presented [facility] ED 12/08/2023 from assisted living with shortness of breath that started the same day as presentation. There was concern for aspiration as this has happened to him in the past, chest x-ray with no new infiltrates ABG showed hypoxia and hypercapnia. Patient started on nebs and Solu-Medrol for COPD exacerbation and antibiotics added due to the concern for aspiration. Patient was evaluated by speech therapy and had recommendations for direct supervision with meals due to this recurrent history and due to that patient cannot return to assisted living so he was accepted at [facility]. Patient did have 1 additional episode where he seemed to inhale water as he was trying to drink it very fast but additional modifications were made and this did not happen again. O2 was weaned and can likely be weaned off in the near future. As patient has been on antibiotics will complete course with Augmentin and 5-day burst of prednisone. On day of discharge patient feeling much better, feels his breathing continues to improve. No new or acute complaints. Physical Exam Narrative General: Alert, no apparent distress HEENT: Atraumatic, normocephalic Eyes: Anicteric, normal conjunctiva, extraocular movements grossly intact Neck: Supple Respiratory: Normal respiratory effort, improved airflow, no wheezes or rhonchi Cardiovascular: Regular rate GI: Soft, nontender, nondistended Extremities: No significant pitting edema Musculoskeletal: Moving all extremities Neuro: No overt focal neurological deficits Skin: No rashes appreciated Psych: Cooperative Weight / BMI Weight Weight: 90.265 kg Body Mass Index (BMI) 30.2 ABG / Lab / Microbiology Data 12/12/23 06:41 12/12/23 08:30 Laboratory: Laboratory Results - last 24 hr 12/12/23 06:41: WBC 11.5 H, RBC 4.26 L, Hgb 14.0, Hct 45.6, MCV 107.0 H, MCH 32.9 H, MCHC 30.7 L, RDW Std Deviation 71.3 H, RDW Coeff of Babatunde 18.3 H, Plt Count 170, MPV 9.7, Immature Gran % (Auto) 0.900, Neut % (Auto) 92.0 H, Lymph % (Auto) 2.7 L, [place] % (Auto) 4.3, Eos % (Auto) 0.0, Baso % (Auto) 0.1, Absolute Neuts (auto) 10.6 H, Absolute Lymphs (auto) 0.31 L, Nucleated RBC % 0, Differential Comment COMMENT, Anisocytosis 1+, Sodium Cancelled, Potassium Cancelled, Chloride Cancelled, Carbon Dioxide Cancelled, Anion Gap Cancelled, BUN Cancelled, Creatinine Cancelled, Estim Creat Clear Calc Cancelled, Est GFR (MDRD) Af Amer Cancelled, Est GFR (MDRD) Non-Af Cancelled, BUN/Creatinine Ratio Cancelled, Glucose Cancelled, Calcium Cancelled 12/12/23 07:33: Sodium Cancelled, Potassium Cancelled, Chloride Cancelled, Carbon Dioxide Cancelled, Anion Gap Cancelled, BUN Cancelled, Creatinine Cancelled, Estim Creat Clear Calc Cancelled, Est GFR (MDRD) Af Amer Cancelled, Est GFR (MDRD) Non-Af Cancelled, BUN/Creatinine Ratio Cancelled, Glucose Cancelled, Calcium Cancelled 12/12/23 08:30: Sodium 139, Potassium 5.4 H, Chloride 107, Carbon Dioxide 29.0, Anion Gap 4 L, BUN 26 H, Creatinine 1.19, Estim Creat Clear Calc 71.13, Est GFR (MDRD) Af Amer 80, Est GFR (MDRD) Non-Af 66, BUN/Creatinine Ratio 21.8 H, G lucose 118 H, Calcium 9.6 Microbiology: Microbiology 12/08/23 16:30 Mucosa - Nose SARS-CoV-2, Influenza & RSV (PCR) - Final Meaningful Use Info Meaningful Use Meaningful Use Diagnoses (Choose all that apply): None applicable Ischemic Stroke Statin Dosing Therapy Reference: STATIN DOSE THERAPY REFERENCE: * Patients > 75 years receive moderate or high dose statin therapy. * Patients 75 years or YOUNGER should receive HIGH intensity statin dose unless contraindicated. You will be required to document reason for non-treatment if statin daily dose does not meet guidelines. HIGH DOSE STATIN THERAPY DAILY Atorvastatin > than or = to 40 mg Rosuvastatin > than or = to 20 mg Amlodipine + Atorvastatin > than or = to 2.5/40 mg Ezetimibe + Simvastatin 10/80 mg Simvastatin 80mg Discharge Plan Admission Admit Date/Time: 12/08/23 18:10 Primary Reason for Your Visit: Shortness of breath Attending Provider: Callie Manning Primary Care Provider: Ingris Chu APPLICATION SECURITY CONSULTANT Consulting Providers: Jonh Mon; Martha Lu; David Ruvalcaba Instructions Patient Instructions: Dysphagia Aspiration Discharge Orders/Prescriptions Prescriptions: New ipratropium-albuterol 0.5 mg-3 mg(2.5 mg base)/3 mL Solution For Nebulization 3 ml inhalation Q6H Qty: 0 0RF amoxicillin-pot clavulanate 875-125 mg tablet 1 tab PO BID 4 Days Qty: 8 0RF prednisone 20 mg tablet 40 mg PO DAILY 5 Days Qty: 10 0RF Continued olanzapine 10 MG tablet 10 mg PO DAILY lithium carbonate 300 MG tablet extended release 600 mg PO QHS spironolactone 25 MG tablet 25 mg PO DAILY omeprazole 20 MG capsule 20 mg PO BID fluphenazine decanoate 25 MG/ML solution 25 mg IJ [id number] MDD Q 2 WEEKS simvastatin [Zocor] 20 MG tablet 20 mg PO QHS montelukast 10 MG tablet 10 mg PO DAILY olanzapine [Zyprexa] 20 MG tablet 20 mg PO QHS omega-3 fatty acids-fish oil 1 EACH capsule 2 capsule PO BID amlodipine 5 mg tablet 5 mg PO DAILY tamsulosin [Flomax] 0.4 mg capsule 0.4 mg PO QHS nicotine 7 mg/24 hr patch 24 hour 1 patch transdermal DAILY PRN (Reason: smoking cessation) multivitamin [Daily Multi-Vitamin] Tablet 1 tab PO DAILY ammonium lactate 12 % cream 1 applic topical BID Referrals / Follow Up: Ingris Chu APPLICATION SECURITY CONSULTANT, APPLICATION SECURITY CONSULTANT-C [Primary Care Provider] - Within 1 Week Disposition Disposition (needs filled in before D/C Order can be placed): NonSkilled NH/Intermed Care Charges/Coding Visit Charges Inpatient E&M: 15874 Disch Hosp >30min
--- NOTE | 2023-12-12 17:45 | NURSING ---
Report given to Prisca VELARDE at [facility]
== END 2023-12-12 17:50 | disposition intermediate care facility (04) | DRG 189 ==
LOC: ED 18:09 → PCU 18:19
PROVIDERS: Internal Medicine; Admitting Provider Hospitalist; Emergency Provider Emergency Medicine; PCP Nurse Practitioner Adult Health; Visit Provider Internal Medicine
DX: J96.01 Acute respiratory failure with hypoxia (principal); J44.1 Chronic obstructive pulmonary disease with (acute) exacerbation; N13.8 Other obstructive and reflux uropathy; F20.9 Schizophrenia, unspecified; I10 Essential (primary) hypertension; F17.210 Nicotine dependence, cigarettes, uncomplicated; K21.9 Gastro-esophageal reflux disease without esophagitis; F31.9 Bipolar disorder, unspecified; N40.1 Benign prostatic hyperplasia with lower urinary tract symptoms; Z79.899 Other long term (current) drug therapy
CPT/HCPCS: 36415; 36600; 71045; 80048; 80053; 82803; 83605; 83880; 84484; 85025; 87631; 92526; 92610; 93005; 94002; 94003; 94640; 94668; 94762; 97162; 97165; 99252; 99285; 99406; J7050; A4216; G0463; J0295

== ENCOUNTER → 2023-12-13 | Outpatient (REF) | payer MEDICARE, MEDICAID, SELFPAY ==
[2023-12-13 08:20] LABS: Hematocrit 46.4 % (40-54); Hemoglobin 14.3 g/dL (13.0-16.5); Mean Corp Hgb Conc 30.8 g/dL (32-36); Mean Corpuscular Hgb 32.7 pg (27.0-32.0); Mean Corpuscular Volume 106.2 fL (80-94); Mean Platelet Vol. 9.9 fl (6.2-12.0); POSITIVE MORPHOLOGY YES; Platelet Count 191 K/mm3 (150-450); RBC Distribution Width CV 18.2 % (11.6-14.6); RBC Distribution Width SD 71.2 fl (35.1-43.9); Red Blood Count 4.37 M/mm3 (4.6-6.2); White Blood Count 11.4 K/mm3 (4.4-11.0)
[2023-12-13 08:26] LABS: Anion Gap 3 (5-15); BUN 30 mg/dL (7-18); BUN/Creat Ratio 22.6 RATIO (10-20); Calcium,Total 9.2 mg/dL (8.5-10.1); Chloride 106 mmol/L (98-107); Creatinine, Serum 1.33 mg/dL (0.70-1.30); EST Glomerular Filtration Rate 58 mL/min (>60); Est Glom Filt Rate - Afr Amer 70 mL/min (>60); Glucose 125 mg/dL (74-106); Potassium 4.8 mmol/L (3.5-5.1); Scan Indicated on CBC? Y/N YES- FLAGS NOTED; Sodium Level 139 mmol/L (136-145)
== END ==
LOC: OLS.SW 05:00
PROVIDERS: PCP Nurse Practitioner Adult Health; Visit Provider Family Medicine
DX: J44.9 Chronic obstructive pulmonary disease, unspecified (principal); I10 Essential (primary) hypertension
CPT/HCPCS: 36415; 80048; 85027

== ENCOUNTER → 2024-01-15 | Outpatient (REF) | payer MEDICARE, MEDICAID, SELFPAY | LOC: OLS.SW 05:00 | PROVIDERS: PCP Nurse Practitioner Adult Health; Visit Provider Family Medicine | DX: F20.9 Schizophrenia, unspecified (principal) | CPT/HCPCS: 36415; 80178 ==

== ENCOUNTER → 2024-01-29 | Outpatient (REF) | payer MEDICARE, MEDICAID, SELFPAY | LOC: OLS.SW 05:00 | PROVIDERS: PCP Nurse Practitioner Adult Health; Visit Provider Family Medicine | DX: Z79.899 Other long term (current) drug therapy (principal) | CPT/HCPCS: 36415; 80178 ==

== ENCOUNTER → 2024-02-12 | Outpatient (REF) | payer MEDICARE, MEDICAID, SELFPAY | LOC: OLS.SW 05:00 | PROVIDERS: PCP Nurse Practitioner Adult Health; Visit Provider Family Medicine | DX: Z79.899 Other long term (current) drug therapy (principal) | CPT/HCPCS: 36415; 80178 ==

== ENCOUNTER → 2024-02-26 | Outpatient (REF) | payer MEDICARE, MEDICAID, SELFPAY | LOC: OLS.SW 05:00 | PROVIDERS: PCP Nurse Practitioner Adult Health; Visit Provider Family Medicine | DX: Z79.899 Other long term (current) drug therapy (principal) | CPT/HCPCS: 36415; 80178 ==

== ENCOUNTER → 2024-03-11 | Outpatient (REF) | payer MEDICARE, MEDICAID, SELFPAY | LOC: OLS.SW 05:05 | PROVIDERS: PCP Nurse Practitioner Adult Health; Visit Provider Internal Medicine | DX: F20.9 Schizophrenia, unspecified (principal) | CPT/HCPCS: 36415; 80178 ==

== ENCOUNTER → 2024-03-25 | Outpatient (REF) | payer MEDICARE, MEDICAID, SELFPAY | LOC: OLS.SW 05:00 | PROVIDERS: PCP Nurse Practitioner Adult Health; Visit Provider Internal Medicine | DX: F20.9 Schizophrenia, unspecified (principal) | CPT/HCPCS: 36415; 80178 ==

== ENCOUNTER → 2024-04-08 05:00 | Outpatient (REF) | payer MEDICARE, MEDICAID, SELFPAY | LOC: OLS.SW 05:00 | PROVIDERS: PCP Nurse Practitioner Adult Health; Visit Provider Family Medicine | DX: F20.9 Schizophrenia, unspecified (principal) | CPT/HCPCS: 36415; 80178 ==

== ENCOUNTER → 2024-04-21 04:00 | Outpatient (REF) | payer MEDICARE, MEDICAID, SELFPAY ==
[2024-04-21 09:12] LABS: Hematocrit 42.1 % (40-54); Mean Corp Hgb Conc 30.9 g/dL (32-36); Mean Corpuscular Hgb 32.1 pg (27.0-32.0); Mean Platelet Vol. 9.5 fl (6.2-12.0); Platelet Count 244 K/mm3 (150-450); RBC Distribution Width CV 14.4 % (11.6-14.6); RBC Distribution Width SD 55.5 fl (35.1-43.9); Red Blood Count 4.05 M/mm3 (4.6-6.2); White Blood Count 6.2 K/mm3 (4.4-11.0)
[2024-04-21 09:53] LABS: ALB/GLOB Ratio 0.5 RATIO (0.9-2.4); AST(SGOT) 24 U/L (15-37); Alanine Aminotransfer ALT/SGPT 22 U/L (16-61); Alkaline Phosphatase 70 U/L (45-117); Anion Gap 5 (5-15); BUN 12 mg/dL (7-18); BUN/Creat Ratio 8.1 RATIO (10-20); Chloride 100 mmol/L (98-107); Creatinine, Serum 1.48 mg/dL (0.70-1.30); EST Glomerular Filtration Rate 51 mL/min (>60); Est Glom Filt Rate - Afr Amer 62 mL/min (>60); Globulin 5.9 g/dL (2.2-4.2); Glucose 94 mg/dL (74-106); Potassium 4.3 mmol/L (3.5-5.1); Protein, Total 8.9 g/dL (6.4-8.2); Sodium Level 134 mmol/L (136-145)
== END ==
LOC: OLS.SW 04:00
PROVIDERS: PCP Nurse Practitioner Adult Health; Referring Provider Family Medicine; Visit Provider Family Medicine
DX: J44.9 Chronic obstructive pulmonary disease, unspecified (principal); I10 Essential (primary) hypertension
CPT/HCPCS: 36415; 80053; 85027

== ENCOUNTER → 2024-04-22 04:00 | Outpatient (REF) | payer MEDICARE, MEDICAID, SELFPAY | LOC: OLS.SW 04:00 | PROVIDERS: PCP Nurse Practitioner Adult Health; Referring Provider Internal Medicine; Visit Provider Internal Medicine | DX: F20.9 Schizophrenia, unspecified (principal) | CPT/HCPCS: 36415; 80178 ==

== ENCOUNTER → 2024-05-06 | Outpatient (REF) | payer MEDICARE, MEDICAID, SELFPAY ==
[2024-05-06 13:16] LABS: Lithium 0.86 mmol/L (0.60-1.20)
== END ==
LOC: OLS.SW 05:00
PROVIDERS: PCP Nurse Practitioner Adult Health; Visit Provider Internal Medicine
DX: F20.9 Schizophrenia, unspecified (principal); Z79.899 Other long term (current) drug therapy
CPT/HCPCS: 36415; 80178

== ENCOUNTER 2024-05-23 10:37 | Inpatient (IN) | payer MEDICARE, MEDICAID, SELFPAY ==
[2024-05-23] VITALS (37 sets, daily range): BP systolic 97–132; BP diastolic 55–96; PULSE 62–96; RESP 12–68; TEMP 35.8–38; O2SAT 74–100; BMI 34.4; BMI 34.3
--- NOTE | 2024-05-23 11:09 | EKG12_ITS ---
Test Reason : SOB Blood Pressure : */* mmHG Vent. Rate : 94 BPM Atrial Rate : 94 BPM P-R Int : 170 ms QRS Dur : 88 ms QT Int : 340 ms P-R-T Axes : 44 -9 56 degrees QTcB Int : 425 ms Normal sinus rhythm Normal ECG Confirmed by LORNA CRISTINA, DEENA ([id number]), newspaper editor managing JUAN A SPARROW ([id number]) on 05/26/2024 6:47:17 AM Referred By: BB Confirmed By: DEENA ROTHMAN MD
--- NOTE | 2024-05-23 11:09 | RAD_ITS ---
EXAM: XR Chest, 1 View CLINICAL INDICATION: ALTERED LOC TECHNIQUE: Frontal view of the chest. COMPARISON: No relevant prior studies available. FINDINGS: LUNGS AND PLEURAL SPACES: See below. HEART: Cardiomegaly with mild congestion. MEDIASTINUM: Unremarkable. Normal mediastinal contour. BONES/JOINTS: Unremarkable. No acute fracture. TUBES, LINES AND DEVICES: The endotracheal tube (ETT) is in satisfactory position. Enteric tube tip in the stomach. RAD/Chest 1 View (Portable) IMPRESSION: Cardiomegaly with mild congestion. Reading Location: [facility]
--- NOTE | 2024-05-23 11:10 | CT_ITS ---
PROCEDURE: BRAIN/HEAD WITHOUT CONTRAST 05/23/2024 REASON FOR EXAM: ALTERED LOC TECHNIQUE: Multiple axial tomographic images were obtained without intravenous contrast administration. Coronal and sagittal reconstruction was obtained as well. COMPARISON: None FINDINGS: Mild degree of cerebral atrophy. Mild degree of decreased attenuation in the bilateral periventricular distribution suggestive of chronic small-vessel arterial sclerosis. No evidence of edema or mass effect. Partial opacification of the ethmoid sinuses and mucosal thickening of the left maxillary sinus. Endotracheal tube is seen. CT/Brain/Head without Contrast IMPRESSION: Mild degree of cerebral atrophy. Reading Location: [facility]
[2024-05-23 11:11] LABS: Allen Test Positive; Base Excess 6 mmol/L (-2 to +2); Bicarbonate 33.1 mmol/L (22-26); Blood Gas Specimen Type ART; Mode Not entered; O2 Delivery Device Cannula; PO2 44 mmHG (75-100); SITE R Radial; SO2 70 % (95-99); Time Given 11:08:22; Total Carbon Dioxide 35 mmol/L; pCO2 72.3 mmHg (35-45); pH 7.27 (7.35-7.45)
--- NOTE | 2024-05-23 11:23 | ED.VIS.DYS ---
HPI History of Present Illness Chief Complaint: Alt LOC Informant: patient and EMS Narrative Narrative: 64-year-old male with COPD coming from assisted living with a decreased level of consciousness dyspnea. History not obtainable from the patient, as he is very somnolent and difficult to keep awake on my evaluation. [facility] Medical History (Updated 05/23/24 @ 16:[address] Bret Nunes MD) Hypercarbia Aspiration pneumonia Hypoxemia GERD (gastroesophageal reflux disease) Sepsis Tobacco abuse Schizophrenia COPD exacerbation Bipolar disorder Home Medications ?Medication ?Instructions ?Recorded ?Last Taken ?Type olanzapine 10 mg tablet 10 mg PO DAILY 02/18/15 Unknown History omeprazole 20 mg capsule,delayed 20 mg PO BID 02/18/15 Unknown History release spironolactone 25 mg tablet 25 mg PO DAILY 02/18/15 Unknown History fluphenazine decanoate 25 mg/mL 25 mg IM Q14D PARANOID 07/29/16 Unknown History injection solution SCHIZOPHRENIA montelukast 10 mg tablet 10 mg PO DAILY 05/02/18 Unknown History olanzapine 20 mg tablet (Zyprexa) 20 mg PO QHS 05/02/18 Unknown History omega-3 fatty acids-fish oil 300 2 capsule PO BID deficiency 05/02/18 10/29/23 History mg-1,000 mg capsule simvastatin 20 mg tablet (Zocor) 20 mg PO QHS 05/02/18 Unknown History amlodipine 5 mg tablet 5 mg PO DAILY bp 03/22/23 Unknown History ammonium lactate 12 % topical cream 1 applic topical BID skin 10/30/23 10/29/23 History irritation multivitamin (Daily Multi-Vitamin 1 tab PO DAILY replacement 12/09/23 Unknown History tablet) acetaminophen 325 mg tablet 650 mg PO Q4H PRN fever or pain 05/23/24 Unknown History acetaminophen 650 mg rectal 650 mg VT Q4H PRN pain 05/23/24 Unknown History suppository aluminum-mag hydroxide-simethicone 30 ml PO Q4H PRN indigestion 05/23/24 Unknown History 400 mg-400 mg-40 mg/5 mL oral susp (Mintox Maximum Strength) amoxicillin 875 mg-potassium 1 tab PO Q12H 05/23/24 Unknown History clavulanate 125 mg tablet bisacodyl 10 mg rectal suppository 10 mg VT DAILY PRN CONSTIPATION 05/23/24 Unknown History cholecalciferol (vitamin D3) 50 50 mcg PO QHS SUPPLEMENT 05/23/24 Unknown History mcg (2,000 unit) tablet (D3 DOTS) lithium carbonate 600 mg capsule 600 mg PO QHS BIPOLAR 05/23/24 Unknown History magnesium hydroxide 400 mg/5 mL 30 ml PO DAILY PRN constipation 05/23/24 Unknown History oral suspension (Dulcolax (magnesium hydroxide)) melatonin 5 mg tablet 5 mg PO QHS 05/23/24 Unknown History menthol 10 % topical cream 1 applic topical Q12H PRN pain 05/23/24 Unknown History (Biofreeze (menthol)) sodium phosphates 19 gram-7 118 ml VT BID PRN constipation 05/23/24 Unknown History gram/118 mL enema (Fleet Enema) trazodone 50 mg tablet 50 mg PO QHS sleep 05/23/24 Unknown History Allergy/AdvReac Type Severity Reaction Status Date / Time codeine AdvReac Upset Verified 12/08/23 16:08 Stomach haloperidol (From Haldol) AdvReac Abd Verified 12/08/23 16:08 cramps/diarrhea haloperidol lactate (From AdvReac Abd Verified 12/08/23 16:08 Haldol) cramps/diarrhea ziprasidone AdvReac Unknown Verified 12/08/23 16:08 Family History Mother Diabetes Surgical History S/P right knee arthroscopy S/P laparoscopic cholecystectomy History of esophagogastroduodenoscopy (EGD) S/P bilateral inguinal hernia repair Social History Smoking Status: Current every day smoker tobacco type: cigarettes ROS ROS ED Review of Systems ROS Unobtainable: due to mental status EXAM Physical Exam Const Vital Signs: 05/23/24 10:39 05/23/24 11:09 05/23/24 11:09 Temperature 100.4 F H 100.4 F H 100.4 F H Temperature Source Oral Temporal Oral Pulse Rate 90 96 Respiratory Rate 68 H 68 H Respiratory Effort Respiratory Depth Respiratory Pattern Blood Pressure 129/70 H 130/77 H 130/77 H Blood Pressure Mean 89 94 94 Pulse Ox 74 98 Oxygen Delivery Method Room Air Non-Rebreather Oxygen Flow Rate (L/min) 10 Fraction of Inspired Oxygen (FIO2) 05/23/24 11:27 05/23/24 11:30 05/23/24 11:30 Temperature Temperature Source Pulse Rate 90 Respiratory Rate 40 H Respiratory Effort Short of Breath Labored Respiratory Depth Respiratory Pattern Tachypnea Tachypnea Blood Pressure Blood Pressure Mean Pulse Ox 94 Oxygen Delivery Method Non-Rebreather Oxygen Flow Rate (L/min) 15 Fraction of Inspired Oxygen (FIO2) 35 05/23/24 11:31 05/23/24 11:39 05/23/24 12:00 Temperature 96.4 F L Temperature Source Temporal Pulse Rate 96 81 Respiratory Rate 21 H 14 Respiratory Effort Labored Accessory Muscle Use Head [place] Respiratory Depth Deep Respiratory Pattern Tachypnea Tachypnea Blood Pressure 112/61 Blood Pressure Mean 78 Pulse Ox 94 96 Oxygen Delivery Method Nasal Cannula Mechanical Ventilator Oxygen Flow Rate (L/min) 6 Fraction of Inspired Oxygen (FIO2) 50 05/23/24 12:18 05/23/24 12:30 05/23/24 12:45 Temperature Temperature Source Pulse Rate 82 82 Respiratory Rate 15 17 Respiratory Effort Respiratory Depth Respiratory Pattern Blood Pressure 107/78 97/63 Blood Pressure Mean 89 75 Pulse Ox 97 95 Oxygen Delivery Method Oxygen Flow Rate (L/min) Fraction of Inspired Oxygen (FIO2) 05/23/24 12:53 05/23/24 13:00 05/23/24 13:00 Temperature Temperature Source Pulse Rate 79 77 Respiratory Rate 14 14 Respiratory Effort Respiratory Depth Respiratory Pattern Blood Pressure 101/55 L Blood Pressure Mean 69 Pulse Ox 98 96 Oxygen Delivery Method Oxygen Flow Rate (L/min) Fraction of Inspired Oxygen (FIO2) 05/23/24 13:15 05/23/24 13:30 05/23/24 13:45 Temperature Temperature Source Pulse Rate 75 73 70 Respiratory Rate 15 20 H 16 Respiratory Effort Respiratory Depth Respiratory Pattern Blood Pressure 106/56 L 111/57 L 115/61 Blood Pressure Mean 71 74 74 Pulse Ox 95 96 96 Oxygen Delivery Method Oxygen Flow Rate (L/min) Fraction of Inspired Oxygen (FIO2) 05/23/24 14:00 05/23/24 14:15 05/23/24 14:30 Temperature Temperature Source Pulse Rate 70 70 Respiratory Rate 20 H 20 H Respiratory Effort Respiratory Depth Respiratory Pattern Blood Pressure 108/58 L 109/61 106/65 Blood Pressure Mean 74 76 78 Pulse Ox 96 96 Oxygen Delivery Method Oxygen Flow Rate (L/min) Fraction of Inspired Oxygen (FIO2) Positive well nourished, well developed and obese General Appearance ED: well developed and NAD Nutritional Appearance: obese HEENT Reports moist mucous membranes normocephalic and atraumatic Eyes PERRL and EOMs intact bilaterally Neck full ROM, supple and no meningeal signs Neck Narrative: Trachea midline Resp Resp Narrative: Respiratory distress, extremely diminished throughout but symmetrically with midline trachea, mildly prolonged expiratory phase Cardio regular rate, regular rhythm and no murmurs GI non-tender and non-distended GI Narrative: Protuberant abdomen, soft and nontender Auscultation: normoactive bowel sounds Palpation: soft Back/Spine no CVA tenderness General Back: other FROM Extremity Extremity Narrative: Chronic stasis dermatitis both lower extremities with white discharge discoloration between the first second webspaces of both feet, difficult to assess for tenderness given the patient's mental status General Extremety ED: Yes edema; Negative for pulses abnormal or tenderness General Extremity: edema bilateral lower extremity Details: severe; Negative for pulses abnormal Neuro no sensory deficits noted Neuro Narrative: Moves all 4 extremities in response to pain Sensorium / Orientation: stuporous Motor Exam: general weakness Sepsis Attestation Sepsis Attestation: Sepsis Ruled Out Date exam was performed: 05/23/24 Time exam was performed: 13:45 Supportive Findings: Vital signs stable, lack of lactic acidosis, lack of infectious source definitive MDM MDM MDM Narrative Medical decision making narrative: Prior to my being able to evaluate the patient due to other emergencies in the department, staff obtained an ABG and initiated BiPAP, the ABG shows significant respiratory acidosis, by the time I evaluated the patient, he is on BiPAP but not vomiting, but I am not able to keep him awake or get any information from him. Therefore I alerted staff and respiratory to set up for an emergent intubation. See the procedure note this was done, then we sedated the patient which took quite a bit of medication including propofol and fentanyl drips. This resulted in some soft blood pressures, which we treated with IV fluids, which she responded to. The chest x-ray 1 view on my interpretation shows good ETT placement, I had nursing push the OGT a little further, although it is at least adequate on the x-ray, and he appears to have either some bibasilar infiltrate versus congestion on the chest x-ray. Radiology is calling it cardiomegaly and mild congestion. He does not have a prior echocardiogram in the system for me to review, I added a BNP. He does not have a leukocytosis and his viral swab is negative, but sepsis was considered because the patient presented with a temperature of 100.4. His legs look awful, and probably chronic but there is no way for me to tell if there is something acute here or not since I have not seen his legs in the past. Providing empiric Zosyn given all of this. Discussed with hospitalist for ICU admission. Lab Data Attestation: I reviewed the patient's lab results. Labs: Laboratory Results - last 24 hr 05/23/24 05/23/24 05/23/24 11:00 11:20 13:17 WBC 5.1 RBC 3.70 L Hgb 12.3 L Hct 39.8 L MCV 107.6 H MCH 33.2 H MCHC 30.9 L RDW Std Deviation 67.9 H RDW Coeff of Babatunde 17.2 H Plt Count 79 L MPV 10.3 Immature Gran % (Auto) 0.400 Neut % (Auto) 79.8 H Lymph % (Auto) 10.9 L [place] % (Auto) 6.4 Eos % (Auto) 2.1 Baso % (Auto) 0.4 Absolute Neuts (auto) 4.1 Absolute Lymphs (auto) 0.56 L Nucleated RBC % 0.6 Platelet Estimate MOD DEC Plt Morphology Comment CLUMPED Polychromasia 1+ Anisocytosis 1+ PT 14.8 INR 1.1 APTT 25.5 Sodium 131 L Potassium 4.9 Chloride 96 L Carbon Dioxide 25.6 Anion Gap 9 BUN 10 Creatinine 1.30 H Estim Creat Clear Calc 68.43 Est GFR (MDRD) Non-Af 62 BUN/Creatinine Ratio 7.9 L Glucose 99 Lactic Acid < 1.0 Calcium 8.8 Total Bilirubin 0.70 AST 23 ALT 15 Alkaline Phosphatase 100 Total Creatine Kinase 40 Troponin T High Sens 35 H Troponin T Hi Sens 2 Hr 36 H Total Protein 8.4 Albumin 3.9 Globulin 4.5 H Albumin/Globulin Ratio 0.9 Triglycerides 96 Urine Color Yellow Urine Clarity Clear Urine pH 6.0 Ur Specific [place] 1.010 Urine Protein 30 H Urine Glucose (UA) Normal Urine Ketones Negative Urine Occult Blood Negative Urine Nitrite Negative Urine Bilirubin Negative Urine Urobilinogen Normal Ur Leukocyte Esterase 25 H Urine RBC 0 SEEN Urine WBC 0-5 SEEN Ur Squamous Epith Cells 0 SEEN Urine Bacteria 0 SEEN Urine Mucus 0 SEEN ABG Data ABG results: ABG 05/23/24 05/23/24 11:06 13:12 Specimen Type ART ART Sample Site R Radial R Radial pH 7.27 L 7.30 L Bicarbonate Actual 33.1 H 35.1 H Total CO2 35 37 Base Excess 6 H 9 H O2 Saturation 70 L 86 L O2 % 6.0 50.0 ABG pCO2 72.3 H* 71.8 H* ABG pO2 44 L 60 L Oj Test Positive Positive Respiration Rate 14 O2 Delivery Device Cannula Adult Vent Vent Mode Not entered AC Tidal Volume 450.0 POC PEEP 5 Crit Call To/Read Back Yes Yes Blood Gas Notified Whom aleksandar aleksandar Blood Gas Notified Time 11:08:22 13:13:42 Radiography Diagnostic Testing: Clinical Impression(s) from Imaging Studies Chest X-Ray 05/23/24 11:09 IMPRESSION: Cardiomegaly with mild congestion. Reading Location: [facility] Brain CT 05/23/24 11:10 IMPRESSION: Mild degree of cerebral atrophy. Reading Location: [place] [id number] Rhythm Strip Rhythm Strip: Sinus Rhythm Rate: 95 Ectopy: None EKG Initial EKG: Attestation: I personally reviewed and interpreted this EKG as follows: Interpretation: Sinus Rhythm and No Acute Injury Pattern Management Discussion w/another healthcare provider: Hospitalist Procedures Intubations Intubation Method: orotracheal (8.0F ETT placed 22 cm at the lip via video laryngoscopy, visualizing the tube passing through the cords) Intubation Verification: Positive color change and Bilateral breath sounds confirmed (And good fogging of tube) Intubation Complications: no complications (Stat portable chest x-ray 1 view on my interpretation confirms good tube placement) Procedural Sedation 1 (Initial Baseline): Consent Signed: No (Emergent situation) Sedation medication: Etomidate Dose: 20 Route: IV Total Moderate Sedation Units: 8 Maliampati Score: Class IV ASA Classification: III Comment:: On monitor with preoxygenation with BiPAP and BGV and IV fluids, tolerated well with no complications. Critical Care Time Critical Care Time: Yes Critical care time (excluding procedures): 30-74 minutes (32 min, not including procedure time), Including time spent:, Discussing w/Patient &/or Family/Box Lidder, Discussing w/Consultants, Arranging Admission or Transfer and Performing Direct Patient Care at Bedside Discharge Plan Dx/Rx/DC Orders Clinical Impression: Acute respiratory failure with hypoxia and hypercapnia, Bilateral edema of lower extremity, COPD with acute exacerbation Disposition Disposition: [facility]
[2024-05-23 11:26] LABS: Bacteria 0 SEEN /hpf (None Seen); Mucous, Urine 0 SEEN /hpf (<or=2+); Squamous Epithelial Cells - UA 0 SEEN /hpf (0-5)
[2024-05-23] MEDS: 0.9% Normal Saline (1000mL) 1,000 ML 999 ML IV (11:26)
[2024-05-23 11:28] LABS: Color, Urine Yellow (Yellow); Glucose, Dipstick Normal (Normal); Ketone-Dipstick Negative (Negative); Leukocyte Esterase-Dipstick 25 /ul (Negative); Nitrite-Dipstick Negative (Negative); Occult Blood-Urine Negative /ul (Negative); Protein-Dipstick 30 mg/dl (Negative); Urine Bilirubin Dipstick Negative (Negative); Urine Clarity Clear (Clear); Urine Urobilinogen Normal (Normal)
[2024-05-23] MEDS: Etomidate 20 MG/10 ML Vial IV (11:30)
[2024-05-23] MEDS: Succinylcholine Chloride 200 MG/10 ML SYRINGE 100 MG IV (11:30)
[2024-05-23 11:31] LABS: Absolute Lymphocyte Count 0.56 X10^3/uL (0.83-4.51); Absolute Neutrophil Count 4.1 X10^3/uL (2.0-7.7); Basophil# 0.02 X10^3/uL; Basophil% 0.4 % (0-1); Eosinophil# 0.11 X10^3/uL; Eosinophils% 2.1 % (0-5); Hematocrit 39.8 % (40-54); Hemoglobin 12.3 g/dL (13.0-16.5); Lymphocyte # 0.56 X10^3/ul (0.83-4.51); Lymphocyte % 10.9 % (19-41); Mean Corp Hgb Conc 30.9 g/dL (32-36); Mean Corpuscular Hgb 33.2 pg (27.0-32.0); Mean Corpuscular Volume 107.6 fL (80-94); Mean Platelet Vol. 10.3 fl (6.2-12.0); Monocyte# 0.33 X10^3/uL; Monocyte% 6.4 % (0-10); NRBC Flagged by Analyzer 0.6 % (0-5); Neutrophil # 4.08 X10^3/uL (2.7-7.7); Neutrophil % 79.8 % (47-70); POSITIVE COUNT YES; POSITIVE DIFFERENTIAL YES; POSITIVE MORPHOLOGY YES; Platelet Count 79 K/mm3 (150-450); RBC Distribution Width CV 17.2 % (11.6-14.6); RBC Distribution Width SD 67.9 fl (35.1-43.9); White Blood Count 5.1 K/mm3 (4.4-11.0)
[2024-05-23 11:34] LABS: Red Blood Cells-Urine 0 SEEN /hpf (0-5); White Blood Cells 0-5 SEEN /hpf (0-5)
[2024-05-23] MEDS: Propofol 10MG/Ml 1,000 MG/100 ML Bottle 6.2 MG CONT INF (11:35)
[2024-05-23] MEDS: Lorazepam 2 MG/ML WCH Syringe IV (11:45)
[2024-05-23 11:57] LABS: Troponin T High Sensitivity 35 ng/L (<=22)
[2024-05-23 11:59] LABS: ALB/GLOB Ratio 0.9 RATIO (0.9-2.4); AST(SGOT) 23 U/L (<=37); Alanine Aminotransfer ALT/SGPT 15 U/L (<=46); Albumin, Serum 3.9 g/dL (3.4-4.8); Alkaline Phosphatase 100 U/L (40-129); Anion Gap 9 (5-15); BUN 10 mg/dL (4-19); BUN/Creat Ratio 7.9 RATIO (10-20); Calcium,Total 8.8 mg/dL (7.6-11.0); Carbon Dioxide 25.6 mmol/L (21.0-32.0); Chloride 96 mmol/L (98-108); EST Glomerular Filtration Rate 62 (>60); Estimated Creatinine Clearance 68.43 ml/min (50-250); Globulin 4.5 g/dL (2.2-4.2); Glucose 99 mg/dL (70-99); Potassium 4.9 mmol/L (3.3-5.1); Protein, Total 8.4 g/dL (5.9-8.4); Sodium Level 131 mmol/L (133-145)
[2024-05-23] MEDS: fentaNYL 100 MCG/2 ML Ampul 50 MCG IV (12:01)
[2024-05-23] MEDS: fentaNYL drip 100 ML 5 MCG CONT INF (12:10)
[2024-05-23 12:11] LABS: International Normalized Ratio 1.1; Prothrombin Time (Protime)PT. 14.8 SECONDS (11.7-14.9)
[2024-05-23 12:12] LABS: Partial Thromboplast Time 25.5 Seconds (24.1-36.2)
[2024-05-23 12:24] LABS: Differential Indicated SCAN CRITERIA MET
[2024-05-23 12:25] LABS: Platelet Estimate MOD DEC (ADEQ)
[2024-05-23 12:26] LABS: Anisocytosis 1+; Platelet Morphology CLUMPED; Polychromasia 1+
[2024-05-23 12:36] LABS: Lactic Acid < 1.0 mmol/L (0.0-2.0)
[2024-05-23 13:16] LABS: Allen Test Positive; Base Excess 9 mmol/L (-2 to +2); Bicarbonate 35.1 mmol/L (22-26); Blood Gas Specimen Type ART; Mode AC; O2 Delivery Device Adult Vent; PEEP 5; PO2 60 mmHG (75-100); RR 14; SITE R Radial; SO2 86 % (95-99); Time Given 13:13:42; Total Carbon Dioxide 37 mmol/L; pCO2 71.8 mmHg (35-45)
[2024-05-23 13:51] LABS: Troponin T High Sens 2 HR 36 ng/L (<=22)
--- NOTE | 2024-05-23 14:03 | PCM.HP.STD ---
HPI - General General Date of Admission: 05/23/24 Date of Service: 05/23/24 Chief Complaint: Altered mentation HPI Narrative FLORY ARIZA, is a 64 M who presented to [facility] ED on 05/23/2024 with altered mentation. Patient came from assisted living. Medical history is significant for COPD, schizophrenia, chronic venous stasis dermatitis, dysphagia and debility. Was last hospitalized here in December for acute hypoxic respiratory failure secondary to COPD exacerbation with suspected aspiration pneumonia. On arrival to the ED today patient was very somnolent and not answering any questions for staff. ABG showed pH 7.27, pCO2 72, pO2 70 on room air. He was placed on BiPAP but remained very somnolent, so decision was made to intubate him. He was intubated without issue. Staff did note that he began to have agitation postintubation and was requiring fairly high sedation requirements. Given all of these things, hospitalist was contacted for admission. I saw the patient at bedside in the ED. He was intubated and sedated. He had nonpurposeful movements noted but did not respond to command. Will be admitted for further management. [facility] Medical History (Updated 05/23/24 @ 16:[address] Bret Nunes MD) Hypercarbia Aspiration pneumonia Hypoxemia GERD (gastroesophageal reflux disease) Sepsis Tobacco abuse Schizophrenia COPD exacerbation Bipolar disorder Home Medications ?Medication ?Instructions ?Recorded ?Last Taken ?Type olanzapine 10 mg tablet 10 mg PO DAILY 02/18/15 Unknown History omeprazole 20 mg capsule,delayed 20 mg PO BID 02/18/15 Unknown History release spironolactone 25 mg tablet 25 mg PO DAILY 02/18/15 Unknown History fluphenazine decanoate 25 mg/mL 25 mg IM Q14D PARANOID 07/29/16 Unknown History injection solution SCHIZOPHRENIA montelukast 10 mg tablet 10 mg PO DAILY 05/02/18 Unknown History olanzapine 20 mg tablet (Zyprexa) 20 mg PO QHS 05/02/18 Unknown History omega-3 fatty acids-fish oil 300 2 capsule PO BID deficiency 05/02/18 10/29/23 History mg-1,000 mg capsule simvastatin 20 mg tablet (Zocor) 20 mg PO QHS 05/02/18 Unknown History amlodipine 5 mg tablet 5 mg PO DAILY bp 03/22/23 Unknown History ammonium lactate 12 % topical cream 1 applic topical BID skin 10/30/23 10/29/23 History irritation multivitamin (Daily Multi-Vitamin 1 tab PO DAILY replacement 12/09/23 Unknown History tablet) acetaminophen 325 mg tablet 650 mg PO Q4H PRN fever or pain 05/23/24 Unknown History acetaminophen 650 mg rectal 650 mg TN Q4H PRN pain 05/23/24 Unknown History suppository aluminum-mag hydroxide-simethicone 30 ml PO Q4H PRN indigestion 05/23/24 Unknown History 400 mg-400 mg-40 mg/5 mL oral susp (Mintox Maximum Strength) amoxicillin 875 mg-potassium 1 tab PO Q12H 05/23/24 Unknown History clavulanate 125 mg tablet bisacodyl 10 mg rectal suppository 10 mg TN DAILY PRN CONSTIPATION 05/23/24 Unknown History cholecalciferol (vitamin D3) 50 50 mcg PO QHS SUPPLEMENT 05/23/24 Unknown History mcg (2,000 unit) tablet (D3 DOTS) lithium carbonate 600 mg capsule 600 mg PO QHS BIPOLAR 05/23/24 Unknown History magnesium hydroxide 400 mg/5 mL 30 ml PO DAILY PRN constipation 05/23/24 Unknown History oral suspension (Dulcolax (magnesium hydroxide)) melatonin 5 mg tablet 5 mg PO QHS 05/23/24 Unknown History menthol 10 % topical cream 1 applic topical Q12H PRN pain 05/23/24 Unknown History (Biofreeze (menthol)) sodium phosphates 19 gram-7 118 ml TN BID PRN constipation 05/23/24 Unknown History gram/118 mL enema (Fleet Enema) trazodone 50 mg tablet 50 mg PO QHS sleep 05/23/24 Unknown History Allergy/AdvReac Type Severity Reaction Status Date / Time codeine AdvReac Upset Verified 12/08/23 16:08 Stomach haloperidol (From Haldol) AdvReac Abd Verified 12/08/23 16:08 cramps/diarrhea haloperidol lactate (From AdvReac Abd Verified 12/08/23 16:08 Haldol) cramps/diarrhea ziprasidone AdvReac Unknown Verified 12/08/23 16:08 Family History Mother Diabetes Surgical History S/P right knee arthroscopy S/P laparoscopic cholecystectomy History of esophagogastroduodenoscopy (EGD) S/P bilateral inguinal hernia repair Social History Smoking Status: Current every day smoker tobacco type: cigarettes ROS Review of Systems ROS Unobtainable: due to endotracheal tube Vital Signs Vital Signs Vital Signs: 05/23/24 10:39 05/23/24 11:09 05/23/24 11:09 Temperature 100.4 F H 100.4 F H 100.4 F H Temperature Source Oral Temporal Oral Pulse Rate 90 96 Respiratory Rate 68 H 68 H Respiratory Effort Respiratory Depth Respiratory Pattern Blood Pressure 129/70 H 130/77 H 130/77 H Blood Pressure Mean 89 94 94 Pulse Ox 74 98 Oxygen Delivery Method Room Air Non-Rebreather Oxygen Flow Rate (L/min) 10 Fraction of Inspired Oxygen (FIO2) 05/23/24 11:27 05/23/24 11:30 05/23/24 11:30 Temperature Temperature Source Pulse Rate 90 Respiratory Rate 40 H Respiratory Effort Short of Breath Labored Respiratory Depth Respiratory Pattern Tachypnea Tachypnea Blood Pressure Blood Pressure Mean Pulse Ox 94 Oxygen Delivery Method Non-Rebreather Oxygen Flow Rate (L/min) 15 Fraction of Inspired Oxygen (FIO2) 35 05/23/24 11:31 05/23/24 11:39 05/23/24 12:00 Temperature 96.4 F L Temperature Source Temporal Pulse Rate 96 81 Respiratory Rate 21 H 14 Respiratory Effort Labored Accessory Muscle Use Head [place] Respiratory Depth Deep Respiratory Pattern Tachypnea Tachypnea Blood Pressure 112/61 Blood Pressure Mean 78 Pulse Ox 94 96 Oxygen Delivery Method Nasal Cannula Mechanical Ventilator Oxygen Flow Rate (L/min) 6 Fraction of Inspired Oxygen (FIO2) 50 05/23/24 12:18 05/23/24 12:30 05/23/24 12:45 Temperature Temperature Source Pulse Rate 82 82 Respiratory Rate 15 17 Respiratory Effort Respiratory Depth Respiratory Pattern Blood Pressure 107/78 97/63 Blood Pressure Mean 89 75 Pulse Ox 97 95 Oxygen Delivery Method Oxygen Flow Rate (L/min) Fraction of Inspired Oxygen (FIO2) 05/23/24 12:53 05/23/24 13:00 05/23/24 13:00 Temperature Temperature Source Pulse Rate 79 77 Respiratory Rate 14 14 Respiratory Effort Respiratory Depth Respiratory Pattern Blood Pressure 101/55 L Blood Pressure Mean 69 Pulse Ox 98 96 Oxygen Delivery Method Oxygen Flow Rate (L/min) Fraction of Inspired Oxygen (FIO2) 05/23/24 13:15 05/23/24 13:30 05/23/24 13:45 Temperature Temperature Source Pulse Rate 75 73 70 Respiratory Rate 15 20 H 16 Respiratory Effort Respiratory Depth Respiratory Pattern Blood Pressure 106/56 L 111/57 L 115/61 Blood Pressure Mean 71 74 74 Pulse Ox 95 96 96 Oxygen Delivery Method Oxygen Flow Rate (L/min) Fraction of Inspired Oxygen (FIO2) 05/23/24 14:00 Temperature Temperature Source Pulse Rate 70 Respiratory Rate 20 H Respiratory Effort Respiratory Depth Respiratory Pattern Blood Pressure 108/58 L Blood Pressure Mean 74 Pulse Ox 96 Oxygen Delivery Method Oxygen Flow Rate (L/min) Fraction of Inspired Oxygen (FIO2) Weight Weight: 102.7 kg Body Mass Index (BMI) 34.4 Physical Exam Const Constitutional Narrative: Intubated and sedated. Nonpurposeful movements noted, not following commands. HEENT normocephalic and head/scalp atraumatic HEENT Narrative: ET tube in place. Neck supple Resp Resp Narrative: Breathing comfortably on mechanical ventilation. Mild crackles noted in bilateral mid lung zones, otherwise good air movement throughout and no wheezing noted. Cardio regular rate, regular rhythm and no murmurs GI normal to inspection, nondistended, normoactive bowel sounds, soft to palpation, non-tender and non-distended Extremity Extremity Narrative: Severe venous stasis dermatitis noted bilaterally. No overt areas of infection noted. Results Lab / Micro Data 05/23/24 11:00 05/23/24 11:00 Labs: Laboratory Results - last 24 hr 05/23/24 11:00: WBC 5.1, RBC 3.70 L, Hgb 12.3 L, Hct 39.8 L, MCV 107.6 H, MCH 33.2 H, MCHC 30.9 L, RDW Std Deviation 67.9 H, RDW Coeff of [place] 17.2 H, Plt Count 79 L, MPV 10.3, Immature Gran % (Auto) 0.400, Neut % (Auto) 79.8 H, Lymph % (Auto) 10.9 L, [place] % (Auto) 6.4, Eos % (Auto) 2.1, Baso % (Auto) 0.4, Absolute Neuts (auto) 4.1, Absolute Lymphs (auto) 0.56 L, Nucleated RBC % 0.6, Platelet Estimate MOD DEC, Plt Morphology Comment CLUMPED, Polychromasia 1+, Anisocytosis 1+, PT 14.8, INR 1.1, APTT 25.5, Sodium 131 L, Potassium 4.9, Chloride 96 L, Carbon Dioxide 25.6, Anion Gap 9, BUN 10, Creatinine 1.30 H, Estim Creat Clear Calc 68.43, Est GFR (MDRD) Non-Af 62, BUN/Creatinine Ratio 7.9 L, Glucose 99, Lactic Acid < 1.0, Calcium 8.8, Total Bilirubin 0.70, AST 23, ALT 15, Alkaline Phosphatase 100, Troponin T High Sens 35 H, Total Protein 8.4, Albumin 3.9, Globulin 4.5 H, Albumin/Globulin Ratio 0.9 05/23/24 11:20: Urine Color Yellow, Urine Clarity Clear, Urine pH 6.0, Ur Specific [place] 1.010, Urine Protein 30 H, Urine Glucose (UA) Normal, Urine Ketones Negative, Urine Occult Blood Negative, Urine Nitrite Negative, Urine Bilirubin Negative, Urine Urobilinogen Normal, Ur Leukocyte Esterase 25 H, Urine RBC 0 SEEN, Urine WBC 0-5 SEEN, Ur Squamous Epith Cells 0 SEEN, Urine Bacteria 0 SEEN, Urine Mucus 0 SEEN 05/23/24 13:17: Troponin T Hi Sens 2 Hr 36 H Micro: Microbiology 05/23/24 11:20 Mucosa - Nose SARS-CoV-2, Influenza & RSV (PCR) - Final ABG Data ABG results: ABG 05/23/24 05/23/24 11:06 13:12 Specimen Type ART ART Sample Site R Radial R Radial pH 7.27 L 7.30 L Bicarbonate Actual 33.1 H 35.1 H Total CO2 35 37 Base Excess 6 H 9 H O2 Saturation 70 L 86 L O2 % 6.0 50.0 ABG pCO2 72.3 H* 71.8 H* ABG pO2 44 L 60 L Oj Test Positive Positive Respiration Rate 14 O2 Delivery Device Cannula Adult Vent Vent Mode Not entered AC Tidal Volume 450.0 POC PEEP 5 Crit Call To/Read Back Yes Yes Blood Gas Notified Whom aleksandar aleksandar Blood Gas Notified Time 11:08:22 13:13:42 Rhythm Strip Rhythm Strip: Sinus Rhythm Rate: 95 Ectopy: None Imaging Radiology Impression Chest X-Ray 05/23/24 11:09 IMPRESSION: Cardiomegaly with mild congestion. Reading Location: [facility] Brain CT 05/23/24 11:10 IMPRESSION: Mild degree of cerebral atrophy. [facility] Assessment & Plan Assessment/Plan (1) Acute respiratory failure with hypoxia and hypercapnia: (2) Chronic venous stasis dermatitis of both lower extremities: PLAN: Plan Patient is a 64-year-old male who presented [facility] ED on 05/23/2024 with altered mentation. 1. Acute hypoxic and hypercapnic respiratory failure ? Admit under inpatient status to ICU. [employer] Markup Clerk consulted. ABG in ED on nasal cannula showed pH 7.27, pCO2 72, pO2 40. Chest x-ray showed cardiomegaly with mild vascular congestion. Unclear etiology but respiratory failure may be secondary to decreased respiratory drive in setting of acute encephalopathy is notable low. BNP normal, low concern for heart failure. Not wheezy on exam, low concern for COPD exacerbation. Continue mechanical ventilation at this time. Appreciate further rn advice recommendations. 2. Acute toxic/metabolic encephalopathy ? Unclear etiology at this time. Patient was very somnolent on arrival to the ED and came from assisted living. Has history of schizophrenia and is on lithium, olanzapine and fluphenazine every 2 weeks. [place] level ordered. Urine drug screen ordered as well. Patient currently sedated while on mechanical ventilation. Okay to continue home lithium and olanzapine for now if they can be given through OG tube. Appreciate further rn advice recommendations. 3. Severe chronic venous stasis dermatitis with concern for cellulitis ? Patient with severe venous stasis changes noted in the ED. No sites of active drainage noted but cannot rule out cellulitis. Procalcitonin ordered. Will treat with IV vancomycin and Zosyn for now. 4. Mild hyponatremia ? Sodium 131 on admit. Chloride 96 and creatinine 1.30, mildly elevated from baseline 1.1-1.2. Suspect due to mild dehydration and was given 1 L of normal saline in the ED. Follow-up a.m. labs. 5. Acute on chronic debility ? PT/OT/case management consulted. Patient came from assisted living, has some degree of debility at baseline. Appreciate further therapy recommendations. 6. History of dysphagia ? Speech therapy consulted. Was found on modified barium swallow study back in October 2023 to have moderate oropharyngeal dysphagia. Admitted in December with concern for possible aspiration pneumonia. Currently intubated; appreciate speech therapy recommendations once patient has been extubated. 7. Tobacco use disorder ? Reportedly a current smoker. NRT available while inpatient as needed. Chronic medical conditions: ? Class I obesity: BMI 34 on admit. Complicates hospital course, care and prognosis. ? COPD: Acute hypoxic and hypercapnic respiratory failure as noted above but no wheezing on exam and have lower concern for COPD exacerbation. Will not treat with steroids or DuoNebs at this time. Continue home inhalers. ? Schizophrenia: [place] level ordered as above. Will continue home lithium and olanzapine at this time. ? GERD: Continue home PPI. ? Hypertension: Blood pressure soft after intubation with sedation, will hold home amlodipine and spironolactone for now. ? Hyperlipidemia: Continue home statin. DVT prophylaxis: Lovenox CODE STATUS: Full code, unverified Expected disposition: TBD Total clinical time spent by myself addressing the patient's medical issues, reviewing all the data, and collaborating with patient's care team: 75 minutes. Charges/Coding Visit Charges Inpatient E&M: 31562 Init Hosp L3
[2024-05-23] MEDS: Piperacil/Tazobactam 3.375 GM in 0.9% Normal Saline (50mL MB+) 50 ML IV ×2 (14:12→21:38)
--- NOTE | 2024-05-23 14:38 | ECHOD_ITS ---
Reason For Study Reason For Study: CHF Procedure This was a 2D Doppler, Color Flow transthoracic echocardiogram. Patient scanned supine on the vent. Exam performed portable in ICU/CCU. Left Ventricle Normal LV size. Left ventricular systolic function is normal. The left ventricular ejection fraction is 65 %. No regional wall motion abnormalities noted. Right Ventricle Normal RV size. Normal systolic function. Atria Normal left atrium. Normal right atrium. Mitral Valve Normal mitral valve. Tricuspid Valve Normal tricuspid valve. Mild (1+) tricuspid valve insufficiency. Pulmonary artery systolic pressure is 42 mmHg. Aortic Valve Trisinus/trileaflet aortic valve. Pulmonic Valve Normal pulmonic valve. Great Vessels Normal aortic root. The pulmonary artery is normal size. No collapse of the inferior vena cava. Pericardium/Pleural No pericardial effusion. MMode/2D Measurements & Calculations LVIDd: 4.5 cm IVSd: 1.1 cm Ao root diam: 3.6 cm LVIDs: 2.7 cm LVPWd: 1.2 cm RVDd: 3.8 cm FS: 40.0 % LAV(MOD-bp): 45.1 ml LVAd ap4: 32.3 cm2 SV(MOD-sp4): 74.3 ml LAV(MOD-bp) Indexed: 20.9 ml/m2 LVLd ap4: 8.3 cm SI(MOD-sp4): 34.5 ml/m2 LAV(MOD-sp2): 37.9 ml EDV(MOD-sp4): 106.6 ml LAV(MOD-sp4): 52.0 ml EDV(sp4-el): 106.3 ml LVAs ap4: 15.9 cm2 LVLs ap4: 6.7 cm ESV(MOD-sp4): 32.3 ml ESV(sp4-el): 32.1 ml EF(MOD-sp4): 69.7 % EF(sp4-el): 69.8 % SV(sp4-el): 74.2 ml LA A4 area: 18.2 cm2 LA dimension(2D): 3.7 cm RA A4 area: 16.8 cm2 Time Measurements MV dec time: 0.19 sec Doppler Measurements & Calculations MV E max micah: 90.1 cm/sec Lat Peak E' Micah: 15.2 cm/sec Med Peak E' Micah: 10.5 cm/sec MV A max micah: 85.6 cm/sec E/E' lat: 5.9 E/E' med: 8.6 MV E/A: 1.1 Ao V2 max: 146.6 cm/sec LV V1 max: 125.1 cm/sec MV dec slope: 463.2 cm/sec2 Ao max P.6 mmHg LV V1 max P.3 mmHg Ao V2 mean: 86.1 cm/sec LV V1 mean P.1 mmHg Ao mean P.6 mmHg LV V1 mean: 82.3 cm/sec Ao V2 VTI: 27.5 cm LV V1 VTI: 26.8 cm AV (velocity ratio): 0.97 PA V2 max: 118.4 cm/sec TR max micah: 307.0 cm/sec TR max P.7 mmHg ECHO/Echo Complete Interpretation Summary Normal LV size. Left ventricular systolic function is normal. The left ventricular ejection fraction is 65 %. Pulmonary artery systolic pressure is 42 mmHg. Structurally normal valves. Ordering Physician: Robson George Referring Physician: Ingris Chu Performed By: Carla Ulloa RDCS
[2024-05-23 16:09] LABS: CPK Total, Creatine Kinase 40 U/L (24-195); Triglycerides 96 mg/dL
[2024-05-23 16:41] LABS: Pro- Brain NATRIURETIC PEPTIDE 249 pg/mL (<=900)
--- NOTE | 2024-05-23 19:06 | CON.PCM.CC_ITS ---
HPI Consult Data Date of Consult: 05/23/24 HPI Narrative Reason for Consultation: AECOPD, mechanical ventilation HPI Narrative: HPI Review: Obtained per EMR as the patient is intubated and unable to provide history for me. FLORY ARIZA, is a 64 M who presented to [facility] ED on 05/23/2024 with altered mentation. Patient came from assisted living. Medical history is significant for COPD, schizophrenia, chronic venous stasis dermatitis, dysphagia and debility. Was last hospitalized here in December for acute hypoxic respiratory failure secondary to COPD exacerbation with suspected aspiration pneumonia. On arrival to the ED today patient was very somnolent and not answering any questions for staff. ABG showed pH 7.27, pCO2 72, pO2 70 on room air. He was placed on BiPAP but remained very somnolent, so decision was made to intubate him. He was intubated without issue. Staff did note that he began to have agitation postintubation and was requiring fairly high sedation requirements. Repeat ABG done on arrival to ICU and per bedside nurse was more compensated that the ABG in record from ~1300. [facility] Medical History Hypercarbia Aspiration pneumonia Hypoxemia GERD (gastroesophageal reflux disease) Sepsis Tobacco abuse Schizophrenia COPD exacerbation Bipolar disorder Home Medications ?Medication ?Instructions ?Recorded ?Last Taken ?Type olanzapine 10 mg tablet 10 mg PO DAILY 02/18/15 Unkn own History omeprazole 20 mg capsule,delayed 20 mg PO BID 02/18/15 Unknown History release spironolactone 25 mg tablet 25 mg PO DAILY 02/18/15 Un known History fluphenazine decanoate 25 mg/mL 25 mg IM Q14D PARANOID 07/29/16 Unknown History injection solution SCHIZOPHRENIA montelukast 10 mg tablet 10 mg PO DAILY 05/02/18 Unkn own History olanzapine 20 mg tablet (Zyprexa) 20 mg PO QHS 9 Unknown History omega-3 fatty acids-fish oil 300 2 capsule PO BID defi ciency 05/02/18 10/29/23 History mg-1,000 mg capsule simvastatin 20 mg tablet (Zocor) 20 mg PO QHS 05/02/18 Unknown History amlodipine 5 mg tablet 5 mg PO DAILY bp 03/22/23 Un known History ammonium lactate 12 % topical cream 1 applic topical B ID skin 10/30/23 10/29/23 History irritation multivitamin (Daily Multi-Vitamin 1 tab PO DAILY repla cement 12/09/23 Unknown History tablet) acetaminophen 325 mg tablet 650 mg PO Q4H PRN fever or pain 05/23/24 Unknown History acetaminophen 650 mg rectal 650 mg NV Q4H PRN pain Unknown History suppository aluminum-mag hydroxide-simethicone 30 ml PO Q4H PRN in digestion 05/23/24 Unknown History 400 mg-400 mg-40 mg/5 mL oral susp (Mintox Maximum Strength) amoxicillin 875 mg-potassium 1 tab PO Q12H 05/23/24 Un known History clavulanate 125 mg tablet bisacodyl 10 mg rectal suppository 10 mg NV DAILY PRN CONSTIPATION 05/23/24 Unknown History cholecalciferol (vitamin D3) 50 50 mcg PO QHS SUPPLEME NT 05/23/24 Unknown History mcg (2,000 unit) tablet (D3 DOTS) lithium carbonate 600 mg capsule 600 mg PO QHS BIPOLAR 05/23/24 Unknown History magnesium hydroxide 400 mg/5 mL 30 ml PO DAILY PRN con stipation 05/23/24 Unknown History oral suspension (Dulcolax (magnesium hydroxide)) melatonin 5 mg tablet 5 mg PO QHS 05/23/24 Unknown History menthol 10 % topical cream 1 applic topical Q12H PRN p ain 05/23/24 Unknown History (Biofreeze (menthol)) sodium phosphates 19 gram-7 118 ml NV BID PRN constipa tion 05/23/24 Unknown History gram/118 mL enema (Fleet Enema) trazodone 50 mg tablet 50 mg PO QHS sleep 05/23/24 Unknown History Allergy/AdvReac Type Severity Reaction Status Date / Time codeine AdvReac Upset Verified 12/08/23 16:08 Stomach haloperidol (From Haldol) AdvReac Abd Verified 12/08/23 16:08 cramps/diarrhea haloperidol lactate (From AdvReac Abd Verified 12/08/23 16:08 Haldol) cramps/diarrhea ziprasidone AdvReac Unknown Verified 12/08/23 16:08 Family History Mother Diabetes Surgical History S/P right knee arthroscopy S/P laparoscopic cholecystectomy History of esophagogastroduodenoscopy (EGD) S/P bilateral inguinal hernia repair Social History Smoking Status: Current every day smoker tobacco type: cigarettes ROS Review of Systems ROS Unobtainable: due to endotracheal tube and due to mental status Objective Data Objective Data Vital Signs: Vital Signs Last response 3 Temperature 36.7 C 05/23/24 14:32 Temperature Source Temporal 05/23/24 12:00 Pulse Rate 71 05/23/24 18:00 Respiratory Rate 20 H 05/23/24 18:00 Respiratory Effort Mechanically Ventilated 05/23/24 18:00 Respiratory Depth Deep 05/23/24 11:39 Respiratory Pattern Tachypnea 05/23/24 11:39 Blood Pressure 125/67 H 05/23/24 18:00 Blood Pressure Mean 86 05/23/24 18:00 Blood Pressure Source Monitor 05/23/24 18:00 Blood Pressure Position Semi-Fowlers 05/23/24 18:00 Blood Pressure Location Right Arm 05/23/24 18:00 Pulse Ox 100 05/23/24 18:00 Oxygen Delivery Method Mechanical Ventilator 05/23/24 18:00 Oxygen Flow Rate (L/min) 6 05/23/24 11:39 Fraction of Inspired Oxygen (FIO2) 100 05/23/24 18:00 I&O: I&O Last 24 Hours 3 05/22/24 05/23/24 05/23/24 23:59 11:59 23:59 Intake Total 1.95 / 1156.56 1154.61 / 1156.56 Output Total 1200 / 1200 Balance 1.95 / -43.44 -45.39 / -43.44 I&O: Total Stay 3 05/23/24 10:37 thru 05/23/24 18:00 Intake Total 1156.56 Output Total 1200 Balance -43.44 Current Meds Ordered / Administered: Current meds ordered / Administered 3 Generic Name Dose Route Start Last Admin Trade Name Freq PRN Reason Stop Dose Admin Acetaminophen 650 mg 05/23/24 18:16 Acetaminophen 325 Mg Tablet PO Q6H PRN PRN Pain 1-10 Or Fever>100.7 Atorvastatin Calcium 10 mg 05/23/24 22:00 Atorvastatin Calcium 10 Mg Tablet PO QHS [facility] Cholecalciferol 50 mcg 05/23/24 22:00 Cholecalciferol (Vit D3) 25 Mcg Tablet (1,000 Units) PO QHS [facility] Enoxaparin Sodium 40 mg 05/24/24 10:00 Enoxaparin 40 Mg/0.4 Ml Syringe SC DAILY [facility] Propofol 1,000 mg in 100 mls @ 6.162 mls/hr 05/23/24 11:35 05/23/24 18:00 Diprivan CONT INF 20 mcg/kg/min .Q12H JUSTIN 12.3 mls/hr Titration Protocol 10 MCG/KG/MIN Fentanyl 100 mls @ 5 mls/hr 05/23/24 12:00 05/23/24 18:00 CONT INF 50 mcg/hr UD JUSTIN 5 mls/hr Titration Protocol 50 MCG/HR Pantoprazole Sodium 40 mg/ 110 mls @ 330 mls/hr 05/23/24 22:00 Sodium Chloride IV Q12 [facility] Piperacillin Sod/Tazobactam 50 mls @ 12.5 mls/hr 05/23/24 22:00 Sod 3.375 gm/ Sodium Chloride IV Q8 [facility] Vancomycin IV-PHARMACY TO DOSE 500 mls @ 250 mls/hr 05/23/24 18:16 1 each/ Sodium Chloride IV X1 PRN Rx to Dose Protocol Vancomycin HCl 2,000 mg/ 540 mls @ 250 mls/hr 05/23/24 19:00 Sodium Chloride IV 05/23/24 21:09 X1 ONE [place] Carbonate 600 mg 05/23/24 22:00 [place] Carbonate 300mg Capsule PO QHS [facility] Montelukast Sodium 10 mg 05/24/24 10:00 Montelukast 10 Mg Tablet PO DAILY [facility] Olanzapine 10 mg 05/24/24 10:00 Olanzapine 10 Mg Tablet PO DAILY [facility] Protocol Olanzapine 20 mg 05/23/24 22:00 Olanzapine 10 Mg Tablet PO QHS [facility] Ondansetron HCl 4 mg 05/23/24 18:16 Ondansetron 4 Mg/2 Ml Vial IV Q8H PRN PRN NAUSEA/VOMITING Sodium Chloride 10 - 40 ml 05/23/24 17:52 0.9% Saline Lock 10 Ml Syringe IV UD PRN SALINE FLUSH Physical Exam Const Constitutional Narrative: obese body habitus General Appearance: patient mechanically ventilated HEENT normocephalic and head/scalp atraumatic HEENT Narrative: dry membranes Eyes no scleral icterus Chest inspection of chest normal Resp Resp Narrative: moving air well on ACVC 20/450/5/60 Peak pressure 21cwp and plat 18cwp Auscultation: clear to auscultation bilaterally Cardio regular rate and regular rhythm GI normal to inspection, nondistended, normoactive bowel sounds, soft to palpation and non-tender Extremity no clubbing, cyanosis or edema Skin General Skin Exam: lichenification and venous stasis Neuro Sensorium / Orientation: sedated on vent Lab / Micro Data 05/23/24 11:00 05/23/24 11:00 Labs: Laboratory Results - last 24 hr 05/23/24 11:00: WBC 5.1, RBC 3.70 L, Hgb 12.3 L, Hct 39.8 L, MCV 107.6 H, MCH 33.2 H, MCHC 30.9 L, RDW Std Deviation 67.9 H, RDW Coeff of Babatunde 17.2 H, Plt Count 79 L, MPV 10.3, Immature Gran % (Auto) 0.400, Neut % (Auto) 79.8 H, Lymph % (Auto) 10.9 L, [place] % (Auto) 6.4, Eos % (Auto) 2.1, Baso % (Auto) 0.4, Absolute Neuts (auto) 4.1, Absolute Lymphs (auto) 0.56 L, Nucleated RBC % 0.6, Platelet Estimate MOD DEC, Plt Morphology Comment CLUMPED, Polychromasia 1+, Anisocytosis 1+, PT 14.8, INR 1.1, APTT 25.5, Sodium 131 L, Potassium 4.9, C hloride 96 L, Carbon Dioxide 25.6, Anion Gap 9, BUN 10, Creatinine 1.30 H, Estim Creat Clear Calc 68.43, Est GFR (MDRD) Non-Af 62, BUN/Creatinine Ratio 7.9 L, Glucose 99, Lactic Acid < 1.0, Calcium 8.8, Total Bilirubin 0.70, AST 23, ALT 15, Alkaline Phosphatase 100, Total Creatine Kinase 40, Troponin T High Sens 35 H, Total Protein 8.4, Albumin 3.9, Globulin 4.5 H, Albumin/Globulin Ratio 0.9, Triglycerides 96 05/23/24 11:20: Urine Color Yellow, Urine Clarity Clear, Urine pH 6.0, Ur Specific [place] 1.010, Urine Protein 30 H, Urine Glucose (UA) Normal, Urine Ketones Negative, Urine Occult Blood Negative, Urine Nitrite Negative, Urine Bilirubin Negative, Urine Urobilinogen Normal, Ur Leukocyte Esterase 25 H, Urine RBC 0 SEEN, Urine WBC 0-5 SEEN, Ur Squamous Epith Cells 0 SEEN, Urine Bacteria 0 SEEN, Urine Mucus 0 SEEN 05/23/24 13:17: Troponin T Hi Sens 2 Hr 36 H, NT pro BNP II 249 Micro: Microbiology 05/23/24 11:20 Mucosa - Nose SARS-CoV-2, Influenza & RSV (PCR) - Final ABG Data ABG results: ABG 05/23/24 05/23/24 11:06 13:12 Specimen Type ART ART Sample Site R Radial R Radial pH 7.27 L 7.30 L Bicarbonate Actual 33.1 H 35.1 H Total CO2 35 37 Base Excess 6 H 9 H O2 Saturation 70 L 86 L O2 % 6.0 50.0 ABG pCO2 72.3 H* 71.8 H* ABG pO2 44 L 60 L Oj Test Positive Positive Respiration Rate 14 O2 Delivery Device Cannula Adult Vent Vent Mode Not entered AC Tidal Volume 450.0 POC PEEP 5 Crit Call To/Read Back Yes Yes Blood Gas Notified Whom aleksandar aleksandar Blood Gas Notified Time 11:08:22 13:13:42 Rhythm Strip Rhythm Strip: Sinus Rhythm Rate: 95 Ectopy: None Imaging Radiology Impression Chest X-Ray 05/23/24 11:09 IMPRESSION: Cardiomegaly with mild congestion. Reading Location: [facility] Brain CT 05/23/24 11:10 IMPRESSION: Mild degree of cerebral atrophy. [facility] CXR reviewed personally and compared with prior - chronic bilateral hemidiaphragmatic elevation and atelectasis, no effusion, no edema, no clear PNA Assessment and Plan . Assessment and plan: ICU Problem List: Acute hypercapnic and hypoxemic respiratory failure severe exacerbation of severe COPD obesity and alveolar hypoventilation ?central apnea from medications? Plan: propofol monotherapy for SAT in AM repeat ABG and CXR in AM duoneb and budesonide scheduled q6h can defer IV steroid at this time CRP level evaluated for abx indication Dominic Bear MD [facility] Critical Care Time: 61 min The entirety of this encounter was done via Telemedicine
[2024-05-23] MEDS: Propofol 10MG/Ml 1,000 MG/100 ML Bottle 12.3 MG CONT INF (19:26)
[2024-05-23] MEDS: Budesonide Respules 0.5 MG/2 ML AMPUL.NEB. INHALATION (20:30)
[2024-05-23] MEDS: Ipratropium/Albuterol Sulfate 3 ML AMPUL.NEB INHALATION (20:30)
[2024-05-23] MEDS: Vancomycin HCl 2,000 MG in 0.9% Normal Saline (500mL Bag) 500 ML 250 MG IV (20:50)
[2024-05-23] MEDS: Pantoprazole Sodium 40 MG in 0.9% Normal Saline (100mL MB+) 100 ML 330 MG IV (20:55)
[2024-05-23] MEDS: 0.9% Normal Saline (100mL Bag) 100 ML 15 ML IV ×2 (21:00→21:01)
[2024-05-23] MEDS: 0.9% Saline Lock 10 ML Syringe IV (21:02)
--- NOTE | 2024-05-23 21:09 | PCM.RX.CS ---
Consult Antibiotic Management Pharmacy has been consulted to manage selected antibiotic: Vancomycin Type of Intervention Type of Consult: New start Labs Labs: Sodium 131 mmol/L (133-145) L 05/23/24 11:00 Potassium 4.9 mmol/L (3.3-5.1) 05/23/24 11:00 Chloride 96 mmol/L (98-108) L 05/23/24 11:00 Carbon Dioxide 25.6 mmol/L (21.0-32.0) 05/23/24 11:00 Anion Gap 9 (5-15) 05/23/24 11:00 BUN 10 mg/dL (4-19) 05/23/24 11:00 Creatinine 1.30 mg/dL (0.70-1.20) H 05/23/24 11:00 Est GFR (MDRD) Non-Af 62 (>60) 05/23/24 11:00 BUN/Creatinine Ratio 7.9 RATIO (10-20) L 05/23/24 11:00 Glucose 99 mg/dL (70-99) 05/23/24 11:00 Microbiology Microbiology: Microbiology 05/23/24 11:20 Mucosa - Nose SARS-CoV-2, Influenza & RSV (PCR) - Final Dosing Weight Weight used for dosin.7 kg Estimated Creatinine Clearance Estimated Creatinine Clearance: 68 Goal Trough Goal Trough: 15-20 mcg/mL Pharmacy Plan for Drug Dosing Pharmacy Plan for Drug Dosing: Pharmacy Service will continue to monitor and adjust dosing as required. 2000MG LOADING DOSE GIVEN @ 2049. START 1250MG Q12H AND DRAW TROUGH PRIOR TO 4TH DOSE Follow-Up Labs Follow-Up Labs: Trough: Vancomycin Date/Time Labs Ordered Labs to be done on [date and time ordered]: 05/25 @ 0830
[2024-05-23 21:13] LABS: Procalcitonin 0.11 ng/mL (<=0.10)
[2024-05-23 21:20] LABS: Troponin T High Sens 4 HR 37 ng/L (<=22)
[2024-05-23 21:22] LABS: Lithium 1.01 mmol/L (0.60-1.20)
[2024-05-23] MEDS: OLANZapine 10 MG Tablet 20 MG GT (21:41)
[2024-05-23] MEDS: Lithium Carbonate 300mg Capsule 600 MG GT (21:41)
[2024-05-23] MEDS: Cholecalciferol (VIT D3) 25 MCG TABLET (1,000 UNITS) 50 MCG GT (21:42)
[2024-05-23] MEDS: Atorvastatin Calcium 10 MG Tablet GT (21:42)
[2024-05-23 22:55] LABS: Amphetamine Urine NEGATIVE (<1000 ng/mL); Barbiturate Urine NEGATIVE (< 200 ng/mL); Benzodiazepine Urine NEGATIVE (< 200 ng/mL); Buprenorphine Urine NEGATIVE (< 200 ng/mL); Cocaine Urine NEGATIVE (< 300 ng/mL); Fentanyl, Urine PRESUMPTIVE POSITIVE; Methadone Urine NEGATIVE (< 300 ng/mL); Opiates Urine NEGATIVE (< 300 ng/mL); Oxycodone, Urine NEGATIVE (< 100 ng/mL); PCP Urine NEGATIVE (< 25 ng/mL); THC Urine NEGATIVE (< 50 ng/mL)
[2024-05-23] MEDS: Chlorhexidine 15 ML PO (23:57)
[2024-05-24] VITALS (41 sets, daily range): BP systolic 96–150; BP diastolic 46–78; PULSE 45–123; RESP 18–47; TEMP 36.6–38; O2SAT 95–99; BMI 37.7
[2024-05-24] MEDS: Ipratropium/Albuterol Sulfate 3 ML AMPUL.NEB INHALATION ×4 (01:05→18:45)
[2024-05-24] MEDS: Propofol 10MG/Ml 1,000 MG/100 ML Bottle 9.2 MG CONT INF (02:18)
[2024-05-24 04:59] LABS: Hemoglobin 12.8 g/dL (13.0-16.5); Mean Corp Hgb Conc 31.2 g/dL (32-36); Mean Corpuscular Hgb 33.3 pg (27.0-32.0); Mean Corpuscular Volume 106.8 fL (80-94); Mean Platelet Vol. 10.3 fl (6.2-12.0); POSITIVE MORPHOLOGY YES; Platelet Count 138 K/mm3 (150-450); RBC Distribution Width CV 17.6 % (11.6-14.6); Red Blood Count 3.84 M/mm3 (4.6-6.2)
[2024-05-24] MEDS: Piperacil/Tazobactam 3.375 GM in 0.9% Normal Saline (50mL MB+) 50 ML IV ×3 (05:21→23:29)
[2024-05-24 05:23] LABS: Scan Indicated on CBC? Y/N YES- FLAGS NOTED
[2024-05-24 05:34] LABS: Anion Gap 7 (5-15); BUN 11 mg/dL (4-19); BUN/Creat Ratio 8.6 RATIO (10-20); Calcium,Total 8.5 mg/dL (7.6-11.0); Carbon Dioxide 26.9 mmol/L (21.0-32.0); Chloride 112 mmol/L (98-108); Creatinine, Serum 1.26 mg/dL (0.70-1.20); EST Glomerular Filtration Rate 64 (>60); Estimated Creatinine Clearance 70.61 ml/min (50-250); Glucose 100 mg/dL (70-99); Potassium 4.4 mmol/L (3.3-5.1); Sodium Level 145 mmol/L (133-145)
[2024-05-24 06:00] LABS: Allen Test Positive; Base Excess 7 mmol/L (-2 to +2); Bicarbonate 31.3 mmol/L (22-26); Blood Gas Specimen Type ART; Mode AC; O2 Delivery Device Adult Vent; PEEP 5; PO2 59 mmHG (75-100); RR 20; SITE L Radial; SO2 90 % (95-99); Total Carbon Dioxide 33 mmol/L; pCO2 47.5 mmHg (35-45); pH 7.43 (7.35-7.45)
[2024-05-24] MEDS: Budesonide Respules 0.5 MG/2 ML AMPUL.NEB. INHALATION ×2 (07:14→18:45)
[2024-05-24] MEDS: fentaNYL drip 100 ML 5 MCG CONT INF ×2 (07:17→10:56)
--- NOTE | 2024-05-24 07:24 | PN.HOSP_ITS ---
Reason for Visit Reason for Visit: Diagnoses Venous insufficiency (chronic) (peripheral) (05/23/24) Acute respiratory failure with hypoxia (05/23/24) Acute respiratory failure with hypercapnia (05/23/24) Objective Data Objective Data Vital Signs: Vital Signs Temp Pulse Resp BP Pulse Ox O2 Del Method O2 Flow Rate 98.6 F 64 20 H 118/73 97 Mechanical Ventilator 6 05/24/24 06:00 05/24/24 06:00 05/24/24 06:00 05/24/24 06:00 05/24/24 06:00 05/24/24 06:00 05/23/24 11:39 FiO2 35 05/24/24 06:00 Oxygen Flow Rate (L/min) 6 Oxygen Delivery Method Mechanical Ventilator Weight: 248 lb 14.43 oz Body Mass Index (BMI) 37.7 Intake & Output: Intake and Output for Last 24 Hours 05/22/24 05/23/24 05/24/24 23:59 23:59 23:59 Intake Total 2143.06 / 2160.36 166.05 / 166.05 Output Total 2200 / 2200 1800 / 1800 Balance -56.94 / -39.64 -1633.95 / -1633.95 Lab / Micro Data 05/24/24 04:53 05/24/24 04:53 Labs: Laboratory Results - last 24 hr 05/23/24 11:00: WBC 5.1, RBC 3.70 L, Hgb 12.3 L, Hct 39.8 L, MCV 107.6 H, MCH 33.2 H, MCHC 30.9 L, RDW Std Deviation 67.9 H, RDW Coeff of Babatunde 17.2 H, Plt Count 79 L, MPV 10.3, Immature Gran % (Auto) 0.400, Neut % (Auto) 79.8 H, Lymph % (Auto) 10.9 L, [place] % (Auto) 6.4, Eos % (Auto) 2.1, Baso % (Auto) 0.4, Absolute Neuts (auto) 4.1, Absolute Lymphs (auto) 0.56 L, Nucleated RBC % 0.6, Platelet Estimate MOD DEC, Plt Morphology Comment CLUMPED, Polychromasia 1+, Anisocytosis 1+, PT 14.8, INR 1.1, APTT 25.5, Sodium 131 L, Potassium 4.9, C hloride 96 L, Carbon Dioxide 25.6, Anion Gap 9, BUN 10, Creatinine 1.30 H, Estim Creat Clear Calc 68.43, Est GFR (MDRD) Non-Af 62, BUN/Creatinine Ratio 7.9 L, Glucose 99, Lactic Acid < 1.0, Calcium 8.8, Total Bilirubin 0.70, AST 23, ALT 15, Alkaline Phosphatase 100, Total Creatine Kinase 40, Troponin T High Sens 35 H, Total Protein 8.4, Albumin 3.9, Globulin 4.5 H, Albumin/Globulin Ratio 0.9, Triglycerides 96 05/23/24 11:20: Urine Color Yellow, Urine Clarity Clear, Urine pH 6.0, Ur Specific [place] 1.010, Urine Protein 30 H, Urine Glucose (UA) Normal, Urine Ketones Negative, Urine Occult Blood Negative, Urine Nitrite Negative, Urine Bilirubin Negative, Urine Urobilinogen Normal, Ur Leukocyte Esterase 25 H, Urine RBC 0 SEEN, Urine WBC 0-5 SEEN, Ur Squamous Epith Cells 0 SEEN, Urine Bacteria 0 SEEN, Urine Mucus 0 SEEN 05/23/24 13:17: Troponin T Hi Sens 2 Hr 36 H, NT pro BNP II 249, Procalcitonin 0.11 05/23/24 20:45: Troponin T Hi Sens 4Hr 37 H, [place] 1.01 05/23/24 21:55: Urine Opiates Screen NEGATIVE, U Buprenorphine Qual NEGATIVE, Ur Oxycodone Screen NEGATIVE, Urine Methadone Screen NEGATIVE, Urine Fentanyl Screen PRESUMPTIVE POSITIVE, Ur Barbiturates Screen NEGATIVE, Ur Phencyclidine Scrn NEGATIVE, Ur Amphetamines Screen NEGATIVE, U Benzodiazepines Scrn NEGATIVE, Urine Cocaine Screen NEGATIVE, U Cannabinoids Screen NEGATIVE 05/24/24 04:53: WBC 6.0, RBC 3.84 L, Hgb 12.8 L, Hct 41.0, MCV 106.8 H, MCH 33.3 H, MCHC 31.2 L, RDW Std Deviation 69.0 H, RDW Coeff of Babatunde 17.6 H, Plt Count 138 L, MPV 10.3, Sodium 145, Potassium 4.4, Chloride 112 H, Carbon Dioxide 26.9, Anion Gap 7, BUN 11, Creatinine 1.26 H, Estim Creat Clear Calc 70.61, Est GFR (MDRD) Non-Af 64, BUN/Creatinine Ratio 8.6 L, Glucose 100 H, Calcium 8.5, C- React Prot Ext Range 44.50 H Micro: Microbiology 05/23/24 11:20 Mucosa - Nose SARS-CoV-2, Influenza & RSV (PCR) - Final ABG Data ABG results: ABG 05/23/24 05/23/24 05/24/24 11:06 13:12 05:55 Specimen Type ART ART ART Sample Site R Radial R Radial L Radial pH 7.27 L 7.30 L 7.43 Bicarbonate Actual 33.1 H 35.1 H 31.3 H Total CO2 35 37 33 Base Excess 6 H 9 H 7 H O2 Saturation 70 L 86 L 90 L O2 % 6.0 50.0 35.0 ABG pCO2 72.3 H* 71.8 H* 47.5 H ABG pO2 44 L 60 L 59 L Oj Test Positive Positive Positive Respiration Rate 14 20 O2 Delivery Device Cannula Adult Vent Adult Vent Vent Mode Not entered AC AC Tidal Volume 450.0 450.0 POC PEEP 5 5 Crit Call To/Read Back Yes Yes Blood Gas Notified Whom aleksandar aleksandar Blood Gas Notified Time 11:08:22 13:13:42 Radiography Diagnostic Testing: Radiology Impression Chest X-Ray 05/23/24 11:09 IMPRESSION: Cardiomegaly with mild congestion. Reading [facility] Brain [facility] 05/23/24 11:10 IMPRESSION: Mild degree of cerebral atrophy. Reading Location: [facility] Rhythm Strip Rhythm Strip: Sinus Rhythm Rate: 95 Ectopy: None Physical Exam Narrative Seen and examined. Patient is intubated on ventilator. Patient was admitted from [facility] with chief complaint of altered mental status, hypoxia, SpO2 66% on room air and patient was put on nonrebreather. Patient's feet were malodorous with chronically superficial ulcerations Patient was febrile 100.4 Fahrenheit in the ED. Maintaining his blood pressure, did not require pressors. On 35% FiO2, PEEP 5 Physical exam General: Sedated, intubated HEENT: Atraumatic, PERRLA, EOMI, Normocephalic Oral: ET and OG tube Neck: Supple, Negative Carotid Bruits, could not examine JVD on mechanical ventilator Chest wall/Lungs: Air entry diminished in bilateral lung bases. No crepitation/rhonchi Cardiovascular: Regular rate, Regular Rhythm, Normal S1, Normal S2, No M/G/R Abdomen: Bowel Sounds Present, Soft, Non Tender, Non-Distended : No dysuria. No renal angle tenderness. No suprapubic tenderness. Extremities: No edema, Capillary Refill Less than 3 Seconds Skin: Bilateral feet superficial ulcerated, malodorous, chronically infected. Bilateral legs, venous hypertension/stasis dermatitis Musculoskeletal: No Tenderness to Palpation of Joints or Extremities Neurological: Sedated Psych/Mental Status: Seated Assessment & Plan Assessment/Plan (1) Acute respiratory failure with hypoxia and hypercapnia: (2) Chronic venous stasis dermatitis of both lower extremities: PLAN: Plan Patient is a 64-year-old male who presented [facility] ED on 05/23/2024 with altered mentation status 1. Acute hypoxic and hypercapnic respiratory failure most likely due to COPD ? Admit under inpatient status to ICU. [employer] Wel[employer] consulted. ABG in ED on nasal cannula showed pH 7.27, pCO2 72, pO2 40. Chest x-ray showed cardiomegaly with mild vascular congestion. Unclear etiology but respiratory failure may be secondary to decreased respiratory drive in setting of acute encephalopathy is notable low. BNP normal. 2D echo is ordered continue mechanical ventilation at this time. 05/24: ABG shows 7.43/47.5/59 on 35% FiO2, PEEP 5, TV 450 mL. 2. Acute toxic/metabolic encephalopathy, unclear etiology possible metabolic from high pCO2: Patient was very somnolent from assisted living. Has history of schizophrenia and is on lithium, olanzapine and fluphenazine every 2 weeks Patient currently sedated while on mechanical ventilation. Okay to continue home lithium and olanzapine for now if they can be given through OG tube. Appreciate further group activities aide recommendations. Serum lithium level is 1.01. CRP elevated. U tox negative. Triple PCR for SARS-CoV-2, flu and RSV are negative 3. Severe chronic venous stasis dermatitis with concern for cellulitis ? Patient with severe venous stasis changes noted in the ED. [place] superficial ulceration of toes, interdigital space and dorsum of the foot. Plantar surface could not be examined. lactic acid normal. Procalcitonin normal. Sepsis ruled out 4. Mild hyponatremia ? Sodium 131 on admit. Chloride 96 and creatinine 1.30, mildly elevated from baseline 1.1-1.2. Suspect due to mild dehydration and was given 1 L of normal saline in the ED. Follow-up a.m. labs. 05/24: Repeat serum sodium is 145. Potassium 4.4. Chloride 112. Discontinue IV fluid. 5. Acute on chronic debility ? PT/OT/case management consulted. Patient came from assisted living, has some degree of debility at baseline. Appreciate further therapy recommendations. 6. History of dysphagia ? Speech therapy consulted. Was found on modified barium swallow study back in October 2023 to have moderate oropharyngeal dysphagia. Admitted in December with concern for possible aspiration pneumonia. 05/24: Speech therapy evaluation once extubated 7. Possible COPD exacerbation with history of chronic tobacco use disorder: Patient is a everyday smoker. COPD is listed in the past medical history. Patient is being managed on scheduled bronchodilator, IV Solu-Medrol, Mucinex, incentive spirometry and Pep. Reportedly a current smoker. NRT available while inpatient as needed. Chronic medical conditions: ? Class I obesity: BMI 34 on admit. Complicates hospital course, care and prognosis. ? COPD: Acute hypoxic and hypercapnic respiratory failure as noted above but no wheezing on exam and have lower concern for COPD exacerbation. Will not treat with steroids or DuoNebs at this time. Continue home inhalers. ? Schizophrenia: [place] level ordered as above. Will continue home lithium and olanzapine at this time. ? GERD: Continue home PPI. ? Hypertension: Blood pressure soft after intubation with sedation, will hold home amlodipine and spironolactone for now. ? Hyperlipidemia: Continue home statin. DVT prophylaxis: Lovenox CODE STATUS: Full code, unverified Charges/Coding Visit Charges Inpatient E&M: 88907 Subs Hosp L3
[2024-05-24] MEDS: Chlorhexidine 15 ML PO ×2 (08:00→21:33)
[2024-05-24] MEDS: Vancomycin HCl 1,250 MG in 0.9% Normal Saline (250mL Bag) 250 ML 167 MG IV ×2 (10:42→21:38)
[2024-05-24] MEDS: Propofol 10MG/Ml 1,000 MG/100 ML Bottle 12.3 MG CONT INF (10:53)
[2024-05-24] MEDS: Enoxaparin 40 MG/0.4 ML Syringe SC (11:16)
[2024-05-24] MEDS: OLANZapine 10 MG Tablet GT (11:17)
[2024-05-24] MEDS: Montelukast 10 MG Tablet GT (11:17)
[2024-05-24] MEDS: MethylPREDNISolone 125 MG/2 ML Vial 40 MG IV (11:22)
--- NOTE | 2024-05-24 12:07 | PCM.PN.TICU ---
Objective Data Objective Data Vital Signs: Vital Signs Last response Temperature 37.0 C 05/24/24 06:00 Temperature Source Core 05/24/24 06:00 Pulse Rate 64 05/24/24 09:28 Pulse Strength Normal (2+) 05/23/24 22:00 Respiratory Rate 20 H 05/24/24 09:28 Respiratory Effort Normal, Non-Labored 05/24/24 06:00 Respiratory Depth Normal 05/24/24 06:00 Respiratory Pattern Normal 05/24/24 09:28 Blood Pressure 118/73 05/24/24 06:00 Blood Pressure Mean 88 05/24/24 06:00 Blood Pressure Source Monitor 05/24/24 06:00 Blood Pressure Position Semi-Fowlers 05/24/24 06:00 Blood Pressure Location Right Arm 05/24/24 06:00 Pulse Ox 97 05/24/24 09:28 Oxygen Delivery Method Mechanical Ventilator 05/24/24 06:00 Oxygen Flow Rate (L/min) 6 05/23/24 11:39 Fraction of Inspired Oxygen (FIO2) 35 05/24/24 09:28 I&O: I&O Last 24 Hours 05/23/24 05/24/24 05/24/24 23:59 11:59 23:59 Intake Total 2141.11 / 2160.36 429.95 / 429.95 Output Total 2200 / 2200 3000 / 3000 Balance -58.89 / -39.64 -2570.05 / -2570.05 I&O: Total Stay 05/23/24 10:37 thru 05/24/24 11:45 Intake Total 2573.01 Output Total 5200 Balance -2626.99 Current Meds Ordered / Administered: Current meds ordered / Administered Generic Name Dose Route Start Last Admin Trade Name Freq PRN Reason Stop Dose Admin Acetaminophen 650 mg 05/23/24 21:06 Acetaminophen 650 Mg/20 Ml Udc GT Q6H PRN PRN Pain 1-10 Or Fever>100.7 Albuterol/Ipratropium 3 ml 05/23/24 19:30 05/24/24 07:14 Ipratropium/Albuterol Sulfate 3 Ml Ampul.Neb INHALATION 3 ml Q6H.RT JUSTIN Administration Atorvastatin Calcium 10 mg 05/23/24 22:00 05/23/24 21:42 Atorvastatin Calcium 10 Mg Tablet GT 10 mg QHS JUSTIN Administration Budesonide 0.5 mg 05/23/24 19:30 05/24/24 07:14 Budesonide Respules 0.5 Mg/2 Ml Ampul.Neb. INHALATION 0.5 mg Q12H JUSTIN Administration Chlorhexidine Gluconate 15 ml 05/24/24 10:00 05/24/24 08:00 Chlorhexidine 15 Ml PO 15 ml BID JUSTIN Administration Cholecalciferol 50 mcg 05/23/24 22:00 05/23/24 21:42 Cholecalciferol (Vit D3) 25 Mcg Tablet (1,000 Units) GT 50 mcg QHS JUSTIN Administration Enoxaparin Sodium 40 mg 05/24/24 10:00 05/24/24 11:16 Enoxaparin 40 Mg/0.4 Ml Syringe SC 40 mg DAILY JUSTIN Administration Propofol 1,000 mg in 100 mls @ 6.162 mls/hr 05/23/24 11:35 05/24/24 11:00 Diprivan CONT INF 20 mcg/kg/min .Q12H JUSTIN 12.3 mls/hr Titration Protocol 10 MCG/KG/MIN Fentanyl 100 mls @ 5 mls/hr 05/23/24 12:00 05/24/24 11:00 CONT INF 50 mcg/hr UD JUSTIN 5 mls/hr Titration Protocol 50 MCG/HR Pantoprazole Sodium 40 mg/ 110 mls @ 330 mls/hr 05/23/24 22:00 05/23/24 21:25 Sodium Chloride IV Infused Q12 JUSTIN Infusion Piperacillin Sod/Tazobactam 50 mls @ 12.5 mls/hr 05/23/24 22:00 05/24/24 10:39 Sod 3.375 gm/ Sodium Chloride IV Infused Q8 JUSTIN Infusion Vancomycin IV-PHARMACY TO DOSE 500 mls @ 250 mls/hr 05/23/24 18:16 1 each/ Sodium Chloride IV X1 PRN Rx to Dose Protocol Sodium Chloride 100 mls @ 15 mls/hr 05/23/24 20:03 05/23/24 21:00 IV 15 mls/hr .Q6H40M PRN Administration Saline Flush Sodium Chloride 100 mls @ 15 mls/hr 05/23/24 20:03 05/23/24 21:01 IV 15 mls/hr .Q6H40M PRN Administration Additional IVPB Infusion Vancomycin HCl 1,250 mg/ 275 mls @ 167 mls/hr 05/24/24 09:00 05/24/24 10:42 Sodium Chloride IV 167 mls/hr Q12H JUSTIN Administration [place] Carbonate 600 mg 05/23/24 22:00 05/23/24 21:41 [place] Carbonate 300mg Capsule GT 600 mg QHS JUSTIN Administration Methylprednisolone Sodium Succinate 40 mg 05/24/24 14:00 Methylprednisolone Sod Succ 40 Mg/Ml Vial IV Q8 JUSTIN Montelukast Sodium 10 mg 05/24/24 10:00 05/24/24 11:17 Montelukast 10 Mg Tablet GT 10 mg DAILY JUSTIN Administration Olanzapine 10 mg 05/24/24 10:00 05/24/24 11:17 Olanzapine 10 Mg Tablet GT 10 mg DAILY JUSTIN Administration Protocol Olanzapine 20 mg 05/23/24 22:00 05/23/24 21:41 Olanzapine 10 Mg Tablet GT 20 mg QHS JUSTIN Administration Ondansetron HCl 4 mg 05/23/24 18:16 Ondansetron 4 Mg/2 Ml Vial IV Q8H PRN PRN NAUSEA/VOMITING Sodium Chloride 10 - 40 ml 05/23/24 17:52 05/23/24 21:02 0.9% Saline Lock 10 Ml Syringe IV 30 ml UD PRN Administration SALINE FLUSH Sodium Chloride 10 - 40 ml 05/23/24 20:03 0.9% Saline Lock 10 Ml Syringe IV UD PRN SALINE FLUSH Vancomycin Protocol 1 lab 05/25/24 07:30 Vancomycin Trough/Random Due MC 05/25/24 09:30 DAILY [facility] Lab / Micro Data 05/24/24 04:53 05/24/24 04:53 Labs: Laboratory Results - last 24 hr 05/23/24 11:00: WBC 5.1, RBC 3.70 L, Hgb 12.3 L, Hct 39.8 L, MCV 107.6 H, MCH 33.2 H, MCHC 30.9 L, RDW Std Deviation 67.9 H, RDW Coeff of Babatunde 17.2 H, Plt Count 79 L, MPV 10.3, Immature Gran % (Auto) 0.400, Neut % (Auto) 79.8 H, Lymph % (Auto) 10.9 L, [place] % (Auto) 6.4, Eos % (Auto) 2.1, Baso % (Auto) 0.4, Absolute Neuts (auto) 4.1, Absolute Lymphs (auto) 0.56 L, Nucleated RBC % 0.6, Platelet Estimate MOD DEC, Plt Morphology Comment CLUMPED, Polychromasia 1+, Anisocytosis 1+, PT 14.8, INR 1.1, APTT 25.5, Lactic Acid < 1.0, Total Creatine Kinase 40, Triglycerides 96 05/23/24 13:17: Troponin T Hi Sens 2 Hr 36 H, NT pro BNP II 249, Procalcitonin 0.11 05/23/24 20:45: Troponin T Hi Sens 4Hr 37 H, [place] 1.01 05/23/24 21:55: Urine Opiates Screen NEGATIVE, U Buprenorphine Qual NEGATIVE, Ur Oxycodone Screen NEGATIVE, Urine Methadone Screen NEGATIVE, Urine Fentanyl Screen PRESUMPTIVE POSITIVE, Ur Barbiturates Screen NEGATIVE, Ur Phencyclidine Scrn NEGATIVE, Ur Amphetamines Screen NEGATIVE, U Benzodiazepines Scrn NEGATIVE, Urine Cocaine Screen NEGATIVE, U Cannabinoids Screen NEGATIVE 05/24/24 04:53: WBC 6.0, RBC 3.84 L, Hgb 12.8 L, Hct 41.0, MCV 106.8 H, MCH 33.3 H, MCHC 31.2 L, RDW Std Deviation 69.0 H, RDW Coeff of Babatunde 17.6 H, Plt Count 138 L, MPV 10.3, Sodium 145, Potassium 4.4, Chloride 112 H, Carbon Dioxide 26.9, Anion Gap 7, BUN 11, Creatinine 1.26 H, Estim Creat Clear Calc 70.61, Est GFR (MDRD) Non-Af 64, BUN/Creatinine Ratio 8.6 L, Glucose 100 H, Calcium 8.5, C-React Prot Ext Range 44.50 H Micro: Microbiology 05/23/24 12:20 Sputum, Induced/Lukens Respiratory Culture - Preliminary Culture exhibits no growth. 05/23/24 11:20 Urine, Clean Catch Urine Culture - Preliminary Gram negative behzad 05/23/24 11:20 Mucosa - Nose SARS-CoV-2, Influenza & RSV (PCR) - Final ABG Data ABG results: ABG 05/23/24 05/24/24 13:12 05:55 Specimen Type ART ART Sample Site R Radial L Radial pH 7.30 L 7.43 Bicarbonate Actual 35.1 H 31.3 H Total CO2 37 33 Base Excess 9 H 7 H O2 Saturation 86 L 90 L O2 % 50.0 35.0 ABG pCO2 71.8 H* 47.5 H ABG pO2 60 L 59 L Oj Test Positive Positive Respiration Rate 14 20 O2 Delivery Device Adult Vent Adult Vent Vent Mode AC AC Tidal Volume 450.0 450.0 POC PEEP 5 5 Crit Call To/Read Back Yes Blood Gas Notified Whom aleksandar Blood Gas Notified Time 13:13:42 Rhythm Strip Rhythm Strip: Sinus Rhythm Rate: 95 Ectopy: None Imaging Radiology Impression Chest X-Ray 05/23/24 11:09 IMPRESSION: Cardiomegaly with mild congestion. Reading Location: [facility] Brain CT 05/23/24 11:10 IMPRESSION: Mild degree of cerebral atrophy. [facility] Assessment and Plan . Assessment and plan: Pt seen and examined. Intubated, sedated. Easily agitated when sedation lightened this AM. Prop @ 20 Fent @ 50 20 450 5 35 PE: General: morbidly obese acute on chronically ill appearing male; +MV HEENT: anicteric Sclera; + ETT, nl nose; supple neck, no masses Cardiovascular: Regular Rate and Rhythm; No murmurs, rubs, gallops; no displaced PMI Respiratory: diminished; no crackles, wheezes, or rhonchi Abdominal: Non-tender; Non distended; hypoBS x 4; No Hepatosplenomegaly Extremities: Warm, extensive LE wounds to feet/toes and chronic venous stasis dermatitis; No clubbing, cyanosis; capillary refill < 2 sec Neurological: sedated and responsive but easily agitated A/P: #Acute hypoxemic respiratory failure: intubated primarily for airway protection; cont MV; settings reviewed/adjusted; SAT/SBT as tolerated but limited due to mentation/agitation at this time; trial Precedex forward strategy #Acute toxic metabolic encephalopathy: CT head no acute abnormalities; UDS/UTox neg; ?medication effect; continuing home lithium and olanzapine via NGT #?COPD exacerbation: cont nebs + IV steroids #B/L LE wounds (extensive to feet) & venous stasis dermatitis with ?cellulitis: cont on emp vanc/Zosyn without any strong suspicion of infection, nasal MRSA positive --> de-esc Abx if Cx neg x48h and if no active infection identified; cont wound care #NILESH vs CKD: nonoliguric; cont monitor #Acute hyponatremia: resolved, monitor #Active tobacco abuse: counseling re: cessation when appropriate #Chronic dysphagia: ST F/U when appropriate #Schizophrenia: cont home meds #Chronic debility: PT/OT when appropriate NPO --> start TFs LMWH, PPI Guarded prognosis Critical Care Time: 50 min The entirety of this encounter was done via Telemedicine
--- NOTE | 2024-05-24 12:40 | CASEMGMT ---
Social Work- STEVE spoke with pt mother, Karely, who reports that the plan will be for pt to discharge to [facility] if skilled care is needed or back to [facility] if able to return home with [facility]. STEVE remains available to follow. CLARIBEL Pena
[2024-05-24] MEDS: Pantoprazole Sodium 40 MG in 0.9% Normal Saline (100mL MB+) 100 ML 330 MG IV ×2 (12:44→21:31)
[2024-05-24] MEDS: 0.9% Saline Lock 10 ML Syringe IV ×2 (12:46→21:38)
[2024-05-24] MEDS: Methylprednisolone Sod Succ 40 MG/ML VIAL IV ×2 (14:46→21:32)
[2024-05-24] MEDS: dexMEDEtomidine 400 MCG in 0.9% Normal Saline (100mL Bag) 96 ML 14.1 MCG CONT INF (15:36)
--- NOTE | 2024-05-24 15:57 | NURSING ---
education re chronic illness deferred till acute illness resolving
[2024-05-24] MEDS: dexMEDEtomidine 400 MCG in 0.9% Normal Saline (100mL Bag) 96 ML 25.4 MCG CONT INF ×2 (19:57→23:28)
[2024-05-24] MEDS: Vital AF 1.2 Cal Liquid 1,000 ML 20 ML GT (19:58)
[2024-05-24] MEDS: OLANZapine 10 MG Tablet 20 MG GT (21:32)
[2024-05-24] MEDS: Lithium Carbonate 300mg Capsule 600 MG GT (21:32)
[2024-05-24] MEDS: Cholecalciferol (VIT D3) 25 MCG TABLET (1,000 UNITS) 50 MCG GT (21:32)
[2024-05-24] MEDS: Atorvastatin Calcium 10 MG Tablet GT (21:32)
[2024-05-25] VITALS (42 sets, daily range): BP systolic 76–137; BP diastolic 46–67; PULSE 38–75; RESP 20–28; TEMP 36.1–36.8; O2SAT 95–100; BMI 36.8
[2024-05-25] MEDS: Ipratropium/Albuterol Sulfate 3 ML AMPUL.NEB INHALATION ×4 (01:13→18:58)
[2024-05-25] MEDS: dexMEDEtomidine 1,000 MCG in 0.9% Normal Saline (250mL Bag) 240 ML 25.4 MCG CONT INF (03:42)
[2024-05-25] MEDS: CHLORHEXIDINE GLUC 2% CLOTH 1 EACH TOWELETTE TOPICAL (06:03)
[2024-05-25] MEDS: fentaNYL drip 100 ML 5 MCG CONT INF ×2 (06:05→18:15)
[2024-05-25] MEDS: Piperacil/Tazobactam 3.375 GM in 0.9% Normal Saline (50mL MB+) 50 ML IV ×3 (06:05→20:35)
[2024-05-25] MEDS: Methylprednisolone Sod Succ 40 MG/ML VIAL IV ×3 (06:07→20:27)
[2024-05-25] MEDS: Budesonide Respules 0.5 MG/2 ML AMPUL.NEB. INHALATION ×2 (06:40→18:59)
[2024-05-25 07:43] LABS: Absolute Lymphocyte Count 0.41 X10^3/uL (0.83-4.51); Absolute Neutrophil Count 6.6 X10^3/uL (2.0-7.7); Basophil# 0.01 X10^3/uL; Basophil% 0.1 % (0-1); Hematocrit 44.9 % (40-54); Hemoglobin 13.8 g/dL (13.0-16.5); Lymphocyte # 0.41 X10^3/ul (0.83-4.51); Lymphocyte % 5.5 % (19-41); Mean Corp Hgb Conc 30.7 g/dL (32-36); Mean Corpuscular Hgb 33.1 pg (27.0-32.0); Mean Corpuscular Volume 107.7 fL (80-94); Mean Platelet Vol. 10.1 fl (6.2-12.0); Monocyte# 0.48 X10^3/uL; Monocyte% 6.4 % (0-10); NRBC Flagged by Analyzer 0 % (0-5); Neutrophil # 6.56 X10^3/uL (2.7-7.7); Neutrophil % 87.2 % (47-70); POSITIVE DIFFERENTIAL YES; POSITIVE MORPHOLOGY YES; Platelet Count 138 K/mm3 (150-450); RBC Distribution Width CV 18.1 % (11.6-14.6); RBC Distribution Width SD 72.3 fl (35.1-43.9); Red Blood Count 4.17 M/mm3 (4.6-6.2); White Blood Count 7.5 K/mm3 (4.4-11.0)
[2024-05-25 07:48] LABS: Differential Indicated SCAN CRITERIA MET
[2024-05-25] MEDS: Chlorhexidine 15 ML PO ×2 (08:00→20:26)
[2024-05-25 08:07] LABS: ALB/GLOB Ratio 0.8 RATIO (0.9-2.4); AST(SGOT) 22 U/L (<=37); Alanine Aminotransfer ALT/SGPT 15 U/L (<=46); Albumin, Serum 3.4 g/dL (3.4-4.8); Alkaline Phosphatase 97 U/L (40-129); Anion Gap 7 (5-15); BUN 23 mg/dL (4-19); BUN/Creat Ratio 15.1 RATIO (10-20); Calcium,Total 8.8 mg/dL (7.6-11.0); Carbon Dioxide 25.1 mmol/L (21.0-32.0); Chloride 118 mmol/L (98-108); Creatinine, Serum 1.54 mg/dL (0.70-1.20); EST Glomerular Filtration Rate 51 (>60); Estimated Creatinine Clearance 59.91 ml/min (50-250); Globulin 4.1 g/dL (2.2-4.2); Glucose 181 mg/dL (70-99); Potassium 4.6 mmol/L (3.3-5.1); Protein, Total 7.5 g/dL (5.9-8.4); Sodium Level 150 mmol/L (133-145); Total Bilirubin 0.58 mg/dL (0.00-1.30)
[2024-05-25 08:22] LABS: Anisocytosis RARE
[2024-05-25] MEDS: Vancomycin Trough/Random Due 1 LAB MC (08:30)
[2024-05-25] MEDS: Propofol 10MG/Ml 1,000 MG/100 ML Bottle 12.3 MG CONT INF (09:05)
[2024-05-25] MEDS: 0.9% Saline Lock 10 ML Syringe IV ×3 (09:10→20:28)
[2024-05-25 09:28] LABS: Vancomycin, Trough Level 24.5 ug/mL (5.0-15.0)
[2024-05-25] MEDS: Pantoprazole Sodium 40 MG in 0.9% Normal Saline (100mL MB+) 100 ML 330 MG IV ×2 (10:59→20:30)
[2024-05-25] MEDS: Enoxaparin 40 MG/0.4 ML Syringe SC (11:03)
[2024-05-25] MEDS: OLANZapine 10 MG Tablet GT (11:04)
[2024-05-25] MEDS: Montelukast 10 MG Tablet GT (11:04)
--- NOTE | 2024-05-25 11:06 | PCM.RX.CS ---
Consult Antibiotic Management Pharmacy has been consulted to manage selected antibiotic: Vancomycin Type of Intervention Type of Consult: Follow-up Labs Labs: Sodium 150 mmol/L (133-145) H 05/25/24 07:30 Potassium 4.6 mmol/L (3.3-5.1) 05/25/24 07:30 Chloride 118 mmol/L (98-108) H 05/25/24 07:30 Carbon Dioxide 25.1 mmol/L (21.0-32.0) 05/25/24 07:30 Anion Gap 7 (5-15) 05/25/24 07:30 BUN 23 mg/dL (4-19) H 05/25/24 07:30 Creatinine 1.54 mg/dL (0.70-1.20) H 05/25/24 07:30 Est GFR (MDRD) Non-Af 51 (>60) L 05/25/24 07:30 BUN/Creatinine Ratio 15.1 RATIO (10-20) 05/25/24 07:30 Glucose 181 mg/dL (70-99) H 05/25/24 07:30 Vancomycin Trough 24.5 ug/mL (5.0-15.0) H 05/25/24 08:30 Microbiology Microbiology: Microbiology 05/23/24 11:00 Blood Culture (Wb) - Anticubital Right Blood Culture - Preliminary 05/23/24 12:20 Sputum, Induced/Lukens Gram Stain - Final 05/23/24 12:20 Sputum, Induced/Lukens Respiratory Culture - Final Presumptive C albicans 05/23/24 11:20 Urine, Clean Catch Urine Culture - Final Gram negative behzad 05/23/24 11:20 Mucosa - Nose SARS-CoV-2, Influenza & RSV (PCR) - Final Goal Trough Goal Trough: 15-20 mcg/mL Pharmacy Plan for Drug Dosing Pharmacy Plan for Drug Dosing: VANCOMYCIN LEVEL RECEIVED Current Vancomycin Dose: 1250mg IV Q12hr Number of Doses Received: 3 (2 scheduled, 1 loading dose) Vancomycin Level: 24.5 Hours Since Last Dose: 11hr Renal Function: SCr 1.54 Renal Function Trend: Scr trending up (was 1.3 when vancomycin initiated) Lab/Micro: no new results Vancomycin Plan/Comments: Patient had a trough drawn which resulted in a value of 24.5 (goal 15-20). Patient's trough is supratherapeutic at this time. Will hold subsequent doses of vancomycin and recheck a random vancomycin trough level. Will resume vancomycin once trough is <20. Pending Level: *RANDOM* level 05/26/24 @0600 Pharmacy Service will continue to monitor and adjust dosing as required.
--- NOTE | 2024-05-25 11:13 | PN.HOSP_ITS ---
Reason for Visit Reason for Visit: Diagnoses Venous insufficiency (chronic) (peripheral) (05/23/24) Acute respiratory failure with hypoxia (05/23/24) Acute respiratory failure with hypercapnia (05/23/24) Objective Data Objective Data Vital Signs: Vital Signs Temp Pulse Resp BP Pulse Ox O2 Del Method O2 Flow Rate 97.8 F 48 L 20 H 106/55 L 96 Mechanical Ventilator 6 05/25/24 08:00 05/25/24 10:58 05/25/24 10:58 05/25/24 10:00 05/25/24 10:58 05/25/24 10:00 05/23/24 11:39 FiO2 35 05/25/24 10:58 Oxygen Flow Rate (L/min) 6 Oxygen Delivery Method Mechanical Ventilator Weight: 243 lb 2.718 oz Body Mass Index (BMI) 36.8 Intake & Output: Intake and Output for Last 24 Hours 05/23/24 05/24/24 05/25/24 23:59 23:59 23:59 Intake Total 2143.06 / 2160.36 1877.51 / 1976.06 640.59 / 640.59 Output Total 2200 / 2200 3800 / 4650 1900 / 1900 Balance -56.94 / -39.64 -1922.49 / -2673.94 -1259.41 / -1259.41 Lab / Micro Data 05/25/24 07:30 05/25/24 07:30 Labs: Laboratory Results - last 24 hr 05/25/24 07:30: WBC 7.5, RBC 4.17 L, Hgb 13.8, Hct 44.9, MCV 107.7 H, MCH 33.1 H , MCHC 30.7 L, RDW Std Deviation 72.3 H, RDW Coeff of Babatunde 18.1 H, Plt Count 138 L, MPV 10.1, Immature Gran % (Auto) 0.800, Neut % (Auto) 87.2 H, Lymph % (Auto) 5.5 L, [place] % (Auto) 6.4, Eos % (Auto) 0.0, Baso % (Auto) 0.1, Absolute Neuts (auto) 6.6, Absolute Lymphs (auto) 0.41 L, Nucleated RBC % 0, Anisocytosis RARE, Sodium 150 H, Potassium 4.6, Chloride 118 H, Carbon Dioxide 25.1, Anion Gap 7, B UN 23 H, Creatinine 1.54 H, Estim Creat Clear Calc 59.91, Est GFR (MDRD) Non-Af 51 L, BUN/Creatinine Ratio 15.1, Glucose 181 H, Calcium 8.8, Total Bilirubin 0.58, AST 22, ALT 15, Alkaline Phosphatase 97, Total Protein 7.5, Albumin 3.4, Globulin 4.1, Albumin/Globulin Ratio 0.8 L 05/25/24 08:30: Vancomycin Trough 24.5 H Micro: Microbiology 05/23/24 11:00 Blood Culture (Wb) - Anticubital Right Blood Culture - Preliminary 05/23/24 12:20 Sputum, Induced/Lukens Gram Stain - Final 05/23/24 12:20 Sputum, Induced/Lukens Respiratory Culture - Final Presumptive C albicans 05/23/24 11:20 Urine, Clean Catch Urine Culture - Final Gram negative behzad 05/23/24 11:20 Mucosa - Nose SARS-CoV-2, Influenza & RSV (PCR) - Final Radiography Diagnostic Testing: Radiology Impression Echocardiogram 05/23/24 14:38 Interpretation Summary Normal LV size. Left ventricular systolic function is normal. The left ventricular ejection fraction is 65 %. Pulmonary artery systolic pressure is 42 mmHg. Structurally normal valves. Ordering Physician: Robson George Referring Physician: Ingris Chu Performed By: Carla Ulloa RDCS Rhythm Strip Rhythm Strip: Sinus Rhythm Rate: 95 Ectopy: None Physical Exam Narrative Seen and examined. Patient is intubated on ventilator. Patient agitated and having involuntary restless movement, moving both lower extremity upper extremities. Eyes twitching. Patient put back on IV propofol drip and discontinue Precedex drip. Patient was bradycardic heart rate 39 to 48/min. Blood pressure normal to low normal. Tachypneic. Patient was admitted from [facility] with chief complaint of altered mental status, hypoxia, SpO2 66% on room air and patient was put on nonrebreather. Patient's feet were malodorous with chronically superficial ulcerations Patient was febrile 100.4 Fahrenheit in the ED. Physical exam General: Agitated restless, involuntary movement HEENT: Atraumatic, PERRLA, EOMI, Normocephalic Oral: ET and OG tube Neck: Supple, Negative Carotid Bruits, could not examine JVD on mechanical ventilator Chest wall/Lungs: Air entry diminished in bilateral lung bases. No crepitation/rhonchi Cardiovascular: Bradycardic, Normal S1, Normal S2, No M/G/R Abdomen: Bowel Sounds Present, Soft, Non Tender, Non-Distended : No dysuria. No renal angle tenderness. No suprapubic tenderness. Extremities: No edema, Capillary Refill Less than 3 Seconds Skin: Bilateral feet superficial ulcerated, malodorous, looks better. Bilateral legs, venous hypertension/stasis dermatitis Musculoskeletal: No Tenderness to Palpation of Joints or Extremities. Neurological: Sedated Psych/Mental Status: Restless. Assessment & Plan Assessment/Plan (1) Acute respiratory failure with hypoxia and hypercapnia: (2) Chronic venous stasis dermatitis of both lower extremities: PLAN: Plan Patient is a 64-year-old male who presented [facility] ED on 05/23/[facility]24 with altered mentation status 1. Acute hypoxic and hypercapnic respiratory failure most likely due to COPD ? Admit under inpatient status to ICU. Log Stacker Operator consulted. ABG in ED on nasal cannula showed pH 7.27, pCO2 72, pO2 40. Chest x-ray showed cardiomegaly with mild vascular congestion. Unclear etiology but respiratory failure may be secondary to decreased respiratory drive in setting of acute encephalopathy is notable low. BNP normal. 2D echo is ordered continue mechanical ventilation at this time. 05/24: ABG shows 7.43/47.5/59 on 35% FiO2, PEEP 5, TV 450 mL. 05/25: Patient still on vent, not ready for extubation because of altered mental status. Sputum culture growing presumptive Nadine albicans. Urine culture, GNR less than 1000 not pathology pathology range, colonization. Continue broad- spectrum antibiotic. GPR in blood might be contamination like corynebacterium/diphtheroids or true infection therefore will consult ID. 2. Acute toxic/metabolic encephalopathy, unclear etiology possible metabolic from high pCO2: Patient was very somnolent from assisted living. Has history of schizophrenia and is on lithium, olanzapine and fluphenazine every 2 weeks Patient currently sedated while on mechanical ventilation. Okay to continue home lithium and olanzapine for now if they can be given through OG tube. Appreciate further rig manager recommendations. Serum lithium level is 1.01. CRP elevated. U tox negative. Triple PCR for SARS-CoV-2, flu and RSV are negative 05/25: Patient restless, agitated, moving all 4 extremities, eyes twitching, possible differential includes withdrawal of antipsychotic medications but patient has been getting olanzapine and lithium. Will get the neuroconsult. Does not seem epileptic or seizure as it is not in a pattern but looks like more agitated or withdrawal of medications. EEG ordered. Propofol restarted to make the patient more sedated. Patient also has been getting IM fluphenazine 25 mg IM every 2 weekly but I think is not needed while patient is on propofol drip. Continue holding trazodone as it might lowered seizure threshold. 3. Severe chronic venous stasis dermatitis with concern for cellulitis ? Patient with severe venous stasis changes noted in the ED. [place] superficial ulceration of toes, interdigital space and dorsum of the foot. Plantar surface could not be examined. lactic acid normal. Procalcitonin normal. Sepsis ruled out 05/25: Bilateral and toe skin looks better. Mupirocin 2% cream ordered 4. Mild hyponatremia converted to hyponatremia with NILESH ? Sodium 131 on admit. Chloride 96 and creatinine 1.30, mildly elevated from baseline 1.1-1.2. Suspect due to mild dehydration and was given 1 L of normal saline in the ED. Follow-up a.m. labs. 05/24: Repeat serum sodium is 145. Potassium 4.4. Chloride 112. Discontinue IV fluid. 05/25: Patient has hyponatremia, sodium 150, hyperchloremia creatinine 18, bicarb 25 with normal anion gap. Creatinine got worse 1.54. Repeat UA, urine osmolarity electrolytes ordered. Playground Worker consulted. Patient has Greer catheter 5. Acute on chronic debility ? PT/OT/case management consulted. Patient came from assisted living, has some degree of debility at baseline. Appreciate further therapy recommendations. 6. History of dysphagia ? Speech therapy consulted. Was found on modified barium swallow study back in October 2023 to have moderate oropharyngeal dysphagia. Admitted in December with concern for possible aspiration pneumonia. 05/24: Speech therapy evaluation once extubated 7. Possible COPD exacerbation with history of chronic tobacco use disorder: Patient is a everyday smoker. COPD is listed in the past medical history. Patient is being managed on scheduled bronchodilator, IV Solu-Medrol, Mucinex, incentive spirometry and Pep. Reportedly a current smoker. NRT available while inpatient as needed. Chronic medical conditions: ? Class I obesity: BMI 34 on admit. Complicates hospital course, care and prognosis. ? COPD: Acute hypoxic and hypercapnic respiratory failure as noted above but no wheezing on exam and have lower concern for COPD exacerbation. Will not treat with steroids or DuoNebs at this time. Continue home inhalers. ? Schizophrenia: [place] level ordered as above. Will continue home lithium and olanzapine at this time. ? GERD: Continue home PPI. ? Hypertension: Blood pressure soft after intubation with sedation, will hold home amlodipine and spironolactone for now. ? Hyperlipidemia: Continue home statin. DVT prophylaxis: Lovenox CODE STATUS: Full code, unverified 05/23/24 11:00 Blood Culture (Wb) - Anticubital Right Blood Culture - Preliminary 05/23/24 12:20 Sputum, Induced/Lukens Gram Stain - Final 05/23/24 12:20 Sputum, Induced/Lukens Respiratory Culture - Final Presumptive C albicans 05/23/24 11:20 Urine, Clean Catch Urine Culture - Final Gram negative behzad 05/23/24 11:20 Mucosa - Nose SARS-CoV-2, Influenza & RSV (PCR) - Final Laboratory Results 05/25/24 07:30: WBC 7.5, RBC 4.17 L, Hgb 13.8, Hct 44.9, MCV 107.7 H, MCH 33.1 H , MCHC 30.7 L, RDW Std Deviation 72.3 H, RDW Coeff of Babatunde 18.1 H, Plt Count 138 L, MPV 10.1, Immature Gran % (Auto) 0.800, Neut % (Auto) 87.2 H, Lymph % (Auto) 5.5 L, [place] % (Auto) 6.4, Eos % (Auto) 0.0, Baso % (Auto) 0.1, Absolute Neuts (auto) 6.6, Absolute Lymphs (auto) 0.41 L, Nucleated RBC % 0, Anisocytosis RARE, Sodium 150 H, Potassium 4.6, Chloride 118 H, Carbon Dioxide 25.1, Anion Gap 7, BUN 23 H, Creatinine 1.54 H, Estim Creat Clear Calc 59.91, Est GFR (MDRD) Non-Af 51 L, BUN/Creatinine Ratio 15.1, Glucose 181 H, Calcium 8.8, Total Bilirubin 0.58, AST 22, ALT 15, Alkaline Phosphatase 97, Total Protein 7.5, Albumin 3.4, Globulin 4.1, Albumin/Globulin Ratio 0.8 L 05/25/24 08:30: Vancomycin Trough 24.5 H Charges/Coding Visit Charges Inpatient E&M: 63222 Subs Hosp L3
--- NOTE | 2024-05-25 12:06 | PN.CC_ITS ---
Objective Data Objective Data Vital Signs: Vital Signs Last response 3 Temperature 36.6 C 05/25/24 08:00 Temperature Source Temporal 05/25/24 08:00 Pulse Rate 48 L 05/25/24 10:58 Pulse Strength Normal (2+) 05/24/24 22:00 Respiratory Rate 20 H 05/25/24 10:58 Respiratory Effort Mechanically Ventilated 05/25/24 08:00 Respiratory Depth Normal 05/25/24 08:00 Respiratory Pattern Normal 05/25/24 10:58 Blood Pressure 106/55 L 05/25/24 10:00 Blood Pressure Mean 72 05/25/24 10:00 Blood Pressure Source Monitor 05/25/24 10:00 Blood Pressure Position Semi-Fowlers 05/25/24 10:00 Blood Pressure Location Left Arm 05/25/24 10:00 Pulse Ox 96 05/25/24 10:58 Oxygen Delivery Method Mechanical Ventilator 05/25/24 10:00 Oxygen Flow Rate (L/min) 35 05/25/24 08:00 Fraction of Inspired Oxygen (FIO2) 35 05/25/24 10:58 I&O: I&O Last 24 Hours 3 05/24/24 05/25/24 05/25/24 23:59 11:59 23:59 Intake Total 1447.56 / 1976.06 664.80 / 664.80 Output Total 800 / 4650 1900 / 1900 Balance 647.56 / -2673.94 -1235.20 / -1235.20 I&O: Total Stay 3 05/23/24 10:37 thru 05/25/24 11:06 Intake Total 4685.37 Output Total 7900 Balance -3214.63 Current Meds Ordered / Administered: Current meds ordered / Administered 3 Generic Name Dose Route Start Last Admin Trade Name Freq PRN Reason Stop Dose Admin Acetaminophen 650 mg 05/23/24 21:06 Acetaminophen 650 Mg/20 Ml Udc GT Q6H PRN PRN Pain 1-10 Or Fever>100.7 Albuterol/Ipratropium 3 ml 05/23/24 19:30 05/25/24 06:48 Ipratropium/Albuterol Sulfate 3 Ml Ampul.Neb INHALATION 3 ml Q6H.RT JUSTIN Administration Atorvastatin Calcium 10 mg 05/23/24 22:00 05/24/24 21:32 Atorvastatin Calcium 10 Mg Tablet GT 10 mg QHS JUSTIN Administration Budesonide 0.5 mg 05/23/24 19:30 05/25/24 11:00 Budesonide Respules 0.5 Mg/2 Ml Ampul.Neb. INHALATION Not Given Q12H JUSTIN Chlorhexidine Gluconate 15 ml 05/24/24 10:00 05/25/24 08:00 Chlorhexidine 15 Ml PO 15 ml BID JUSTIN Administration Chlorhexidine Gluconate 1 each 05/25/24 10:00 05/25/24 06:03 Chlorhexidine Gluc 2% Cloth 1 Each [place] TOPICAL 1 each DAILY JUSTIN Administration Cholecalciferol 50 mcg 05/23/24 22:00 05/24/24 21:32 Cholecalciferol (Vit D3) 25 Mcg Tablet (1,000 Units) GT 50 mcg QHS JUSTIN Administration Enoxaparin Sodium 40 mg 05/24/24 10:00 05/25/24 11:03 Enoxaparin 40 Mg/0.4 Ml Syringe SC 40 mg DAILY JUSTIN Administration Propofol 1,000 mg in 100 mls @ 12.324 mls/hr 05/23/24 11:35 05/25/24 11:00 Diprivan CONT INF 10 mcg/kg/min .Q8H7M JUSTNI 6.2 mls/hr Titration Protocol 20 MCG/KG/MIN Fentanyl 100 mls @ 5 mls/hr 05/23/24 12:00 05/25/24 11:00 CONT INF 25 mcg/hr UD JUSTIN 2.5 mls/hr Titration Protocol 50 MCG/HR Pantoprazole Sodium 40 mg/ 110 mls @ 330 mls/hr 05/23/24 22:00 05/25/24 10:59 Sodium Chloride IV 330 mls/hr Q12 JUSTIN Administration Piperacillin Sod/Tazobactam 50 mls @ 12.5 mls/hr 05/23/24 22:00 05/25/24 06:05 Sod 3.375 gm/ Sodium Chloride IV 12.5 mls/hr Q8 JUSTIN Administration Vancomycin IV-PHARMACY TO DOSE 500 mls @ 250 mls/hr 05/23/24 18:16 1 each/ Sodium Chloride IV X1 PRN Rx to Dose Protocol Sodium Chloride 100 mls @ 15 mls/hr 05/23/24 20:03 05/24/24 12:50 IV Infused .Q6H40M PRN Infusion Saline Flush Sodium Chloride 100 mls @ 15 mls/hr 05/23/24 20:03 05/24/24 12:46 IV Infused .Q6H40M PRN Infusion Additional IVPB Infusion Enteral Nutritional Formula 1,000 mls @ 50 mls/hr 05/24/24 17:40 05/25/24 03:44 Vital Af 1.2 Colin Liquid GT 30 mls/hr .Q20H JUSTIN Infusion Dexmedetomidine HCl 1,000 mcg/ 250 mls @ 14.113 mls/hr 05/24/24 23:45 05/25/24 09:00 Sodium Chloride CONT INF 0 mcg/kg/hr .[id number] JUSTIN 0 mls/hr Titration Protocol 0.5 MCG/KG/HR Dextrose 1,000 mls @ 60 mls/hr 05/25/24 11:30 IV 05/26/24 20:49 .[id number] JUSTIN Protocol [place] Carbonate 300 mg 05/25/24 22:00 [place] Carbonate 300mg Capsule GT QHS JUSTIN Methylprednisolone Sodium Succinate 40 mg 05/24/24 14:00 05/25/24 06:07 Methylprednisolone Sod Succ 40 Mg/Ml Vial IV 40 mg Q8 JUSTIN Administration Montelukast Sodium 10 mg 05/24/24 10:00 05/25/24 11:04 Montelukast 10 Mg Tablet GT 10 mg DAILY JUSTIN Administration Mupirocin 1 applic 05/25/24 11:20 Mupirocin Ointment 22gm Tube TOPICAL BID JUSTIN Protocol Olanzapine 10 mg 05/24/24 10:00 05/25/24 11:04 Olanzapine 10 Mg Tablet GT 10 mg DAILY JUSTIN Administration Protocol Olanzapine 20 mg 05/23/24 22:00 05/24/24 21:32 Olanzapine 10 Mg Tablet GT 20 mg QHS JUSTIN Administration Ondansetron HCl 4 mg 05/23/24 18:16 Ondansetron 4 Mg/2 Ml Vial IV Q8H PRN PRN NAUSEA/VOMITING Sodium Chloride 10 - 40 ml 05/23/24 17:52 05/25/24 09:10 0.9% Saline Lock 10 Ml Syringe IV 20 ml UD PRN Administration SALINE FLUSH Sodium Chloride 10 - 40 ml 05/23/24 20:03 0.9% Saline Lock 10 Ml Syringe IV UD PRN SALINE FLUSH Vancomycin Protocol 1 lab 05/26/24 04:00 Vancomycin Trough/Random Due MC 05/26/24 08:00 DAILY [facility] Lab / Micro Data 05/25/24 07:30 05/25/24 07:30 Labs: Laboratory Results - last 24 hr 05/25/24 07:30: WBC 7.5, RBC 4.17 L, Hgb 13.8, Hct 44.9, MCV 107.7 H, MCH 33.1 H , MCHC 30.7 L, RDW Std Deviation 72.3 H, RDW Coeff of Bab[place]unde 18.1 H, Plt Count 138 L, MPV 10.1, Immature Gran % (Auto) 0.800, Neut % (Auto) 87.2 H, Lymph % (Auto) 5.5 L, [place] % (Auto) 6.4, Eos % (Auto) 0.0, Baso % (Auto) 0.1, Absolute Neuts (auto) 6.6, Absolute Lymphs (auto) 0.41 L, Nucleated RBC % 0, Anisocytosis RARE, Sodium 150 H, Potassium 4.6, Chloride 118 H, Carbon Dioxide 25.1, Anion Gap 7, B UN 23 H, Creatinine 1.54 H, Estim Creat Clear Calc 59.91, Est GFR (MDRD) Non-Af 51 L, BUN/Creatinine Ratio 15.1, Glucose 181 H, Calcium 8.8, Total Bilirubin 0.58, AST 22, ALT 15, Alkaline Phosphatase 97, Total Protein 7.5, Albumin 3.4, Globulin 4.1, Albumin/Globulin Ratio 0.8 L 05/25/24 08:30: Vancomycin Trough 24.5 H Micro: Microbiology 05/23/24 11:00 Blood Culture (Wb) - Anticubital Right Blood Culture - Preliminary 05/23/24 12:20 Sputum, Induced/[place] Gram Stain - Final 05/23/24 12:20 Sputum, Induced/[place] Respiratory Culture - Final Presumptive C albicans 05/23/24 11:20 Urine, Clean Catch Urine Culture - Final Gram negative behzad Rhythm Strip Rhythm Strip: Sinus Rhythm Rate: 95 Ectopy: None Imaging Radiology Impression Echocardiogram 05/23/24 14:38 Interpretation Summary Normal LV size. Left ventricular systolic function is normal. The left ventricular ejection fraction is 65 %. Pulmonary artery systolic pressure is 42 mmHg. Structurally normal valves. Ordering Physician: Robson George Referring Physician: Ingris Chu Performed By: Carla Ulloa RDCS Assessment and Plan . Assessment and plan: Pt seen and examined. Intubated, sedated. Remains very agitated when sedation lightened this AM. Afebrile. Making urine. Prop @ 10 Fent @ 25 TFs @ 30 + 300 q4h 20 450 5 35 PE: General: morbidly obese acute on chronically ill appearing male; +MV HEENT: anicteric Sclera; + ETT, nl nose; supple neck, no masses Cardiovascular: Regular Rate and Rhythm; No murmurs, rubs, gallops; no displaced PMI Respiratory: diminished; no crackles, wheezes, or rhonchi Abdominal: Non-tender; Non distended; hypoBS x 4; No Hepatosplenomegaly Extremities: Warm, extensive LE wounds to feet/toes and chronic venous stasis dermatitis; No clubbing, cyanosis; capillary refill < 2 sec Neurological: sedated and responsive but easily agitated A/P: #Acute hypoxemic respiratory failure: intubated primarily for airway protection; cont MV; settings reviewed/adjusted; SAT/SBT as tolerated but limited due to mentation/agitation at this time; did not tolerate Precedex forward strategy due to bradycardia and on-going agitation; will add PO buspirone to facilitate weaning #Acute toxic metabolic encephalopathy: CT head no acute abnormalities; UDS/UTox neg; ?medication effect; continuing home lithium and olanzapine via NGT #?COPD exacerbation: cont nebs + IV steroids #B/L LE wounds (extensive to feet) & venous stasis dermatitis with ?cellulitis: cont on emp vanc/Zosyn without any strong suspicion of infection, nasal MRSA positive --> de-esc Abx if Cx neg x48h and if no active infection identified; cont wound care #NILESH vs CKD: nonoliguric; cont monitor #Acute hyponatremia: resolved, monitor #Active tobacco abuse: counseling re: cessation when appropriate #Chronic dysphagia: ST F/U when appropriate #Schizophrenia: cont home meds #Chronic debility: PT/OT when appropriate TFs LMWH, PPI Guarded prognosis Critical Care Time: 50 min The entirety of this encounter was done via Telemedicine
[2024-05-25] MEDS: TITRATION PARAMETER CHANGE 1 EACH IV ×2 (12:49→17:35)
[2024-05-25] MEDS: Dextrose 5%-Water (1000mL Bag) 1,000 ML 60 ML IV (12:49)
[2024-05-25 13:04] LABS: Base Excess 2 mmol/L (-2 to +2); Bicarbonate 27.5 mmol/L (22-26); Blood Gas Specimen Type ART; Mode AC; O2 Delivery Device Adult Vent; PEEP 5; PO2 62 mmHG (75-100); RR 20; SITE L Brach; SO2 91 % (95-99); Total Carbon Dioxide 29 mmol/L; pCO2 46.6 mmHg (35-45); pH 7.38 (7.35-7.45)
--- NOTE | 2024-05-25 13:15 | NEURO.CONS ---
Assessment and Plan: Neuro Assessment/Plan FLORY ARIZA is a 64 M with a past medical history of schizophrenia, being evaluated by Teleneurology for acute AMS, agitation, and abnormal movements. No recent history to base AMS on. On exam, the movements are not consistent with seizure but would be concerned for over use of antipsychotics and potential NMS. Diagnosis: toxic metabolic encephalopathy Plan: - agree with lowering lithium given NILESH - correct metabolic abnormalities - hypernatremia namely - recommend CK and if elevated, trend q 8 hrs - for treatment of agitation, recommend using benzo's or VPA to avoid excessive doses of antipsychotics that could lead to NMS - EEG pending, no evidence of seizure on evalauting movement I personally attended this patient and spent a total time of 30minutes evaluating this patient including clinical assessment, review of chart, medical history imaging, and determining appropriate treatment and workup. HPI Consult Data Date of Consult: 05/26/24 HPI Narrative HPI Narrative: FLORY ARIZA, is a 64 M who presented to [facility] ED on 05/23/2024 with altered mentation. Patient came from assisted living. Medical history is significant for COPD, schizophrenia, chronic venous stasis dermatitis, dysphagia and debility. Was last hospitalized here in December for acute hypoxic respiratory failure secondary to COPD exacerbation with suspected aspiration pneumonia. On arrival to the ED today patient was very somnolent and not answering any questions for staff. ABG showed pH 7.27, pCO2 72, pO2 70 on room air. He was placed on BiPAP but remained very somnolent, so decision was made to intubate him. He was intubated without issue. Staff did note that he began to have agitation postintubation and was requiring fairly high sedation requirements. Patient is intubated on ventilator. Patient agitated and having involuntary restless movement, moving both lower extremity upper extremities. Eyes twitching. Patient put back on IV propofol drip and discontinue Precedex drip. Patient was bradycardic heart rate 39 to 48/min. Blood pressure normal to low normal. Tachypneic. Patient was admitted from [facility] with chief complaint of altered mental status, hypoxia, SpO2 66% on room air and patient was put on nonrebreather. Patient's feet were malodorous with chronically superficial ulcerations Neurologic History Patient does not contribute to his history, chart reviewed. Patient is on sever antipsychotics including lithium, fluphenazine, olanzapine. Unclear etiology of AMS - possibly secondary to COPD exacerbation but remain altered and agitated. [facility] Medical History Hypercarbia Aspiration pneumonia Hypoxemia GERD (gastroesophageal reflux disease) Sepsis Tobacco abuse Schizophrenia COPD exacerbation Bipolar disorder Home Medications ?Medication ?Instructions ?Recorded ?Last Taken ?Type olanzapine 10 mg tablet 10 mg PO DAILY 02/18/15 Unknown History omeprazole 20 mg capsule,delayed 20 mg PO BID 02/18/15 Unknown History release spironolactone 25 mg tablet 25 mg PO DAILY 02/18/15 Unknown History fluphenazine decanoate 25 mg/mL 25 mg IM Q14D PARANOID 07/29/16 Unknown History injection solution SCHIZOPHRENIA montelukast 10 mg tablet 10 mg PO DAILY 05/02/18 Unknown History olanzapine 20 mg tablet (Zyprexa) 20 mg PO QHS 05/02/18 Unknown History omega-3 fatty acids-fish oil 300 2 capsule PO BID deficiency 05/02/18 10/29/23 History mg-1,000 mg capsule simvastatin 20 mg tablet (Zocor) 20 mg PO QHS 05/02/18 Unknown History amlodipine 5 mg tablet 5 mg PO DAILY bp 03/22/23 Unknown History ammonium lactate 12 % topical cream 1 applic topical BID skin 10/30/23 10/29/23 History irritation multivitamin (Daily Multi-Vitamin 1 tab PO DAILY replacement 12/09/23 Unknown History tablet) acetaminophen 325 mg tablet 650 mg PO Q4H PRN fever or pain 05/23/24 Unknown History acetaminophen 650 mg rectal 650 mg OH Q4H PRN pain 05/23/24 Unknown History suppository aluminum-mag hydroxide-simethicone 30 ml PO Q4H PRN indigestion 05/23/24 Unknown History 400 mg-400 mg-40 mg/5 mL oral susp (Mintox Maximum Strength) amoxicillin 875 mg-potassium 1 tab PO Q12H 05/23/24 Unknown History clavulanate 125 mg tablet bisacodyl 10 mg rectal suppository 10 mg OH DAILY PRN CONSTIPATION 05/23/24 Unknown History cholecalciferol (vitamin D3) 50 50 mcg PO QHS SUPPLEMENT 05/23/24 Unknown History mcg (2,000 unit) tablet (D3 DOTS) lithium carbonate 600 mg capsule 600 mg PO QHS BIPOLAR 05/23/24 Unknown History magnesium hydroxide 400 mg/5 mL 30 ml PO DAILY PRN constipation 05/23/24 Unknown History oral suspension (Dulcolax (magnesium hydroxide)) melatonin 5 mg tablet 5 mg PO QHS 05/23/24 Unknown History menthol 10 % topical cream 1 applic topical Q12H PRN pain 05/23/24 Unknown History (Biofreeze (menthol)) sodium phosphates 19 gram-7 118 ml OH BID PRN constipation 05/23/24 Unknown History gram/118 mL enema (Fleet Enema) trazodone 50 mg tablet 50 mg PO QHS sleep 05/23/24 Unknown History Allergy/AdvReac Type Severity Reaction Status Date / Time codeine AdvReac Upset Verified 12/08/23 16:08 Stomach haloperidol (From Haldol) AdvReac Abd Verified 12/08/23 16:08 cramps/diarrhea haloperidol lactate (From AdvReac Abd Verified 12/08/23 16:08 Haldol) cramps/diarrhea ziprasidone AdvReac Unknown Verified 12/08/23 16:08 Family History Mother Diabetes Surgical History S/P right knee arthroscopy S/P laparoscopic cholecystectomy History of esophagogastroduodenoscopy (EGD) S/P bilateral inguinal hernia repair Social History Smoking Status: Current every day smoker tobacco type: cigarettes Vital Signs Vital Signs Vital Signs: 05/24/24 13:25 05/24/24 13:25 05/24/24 14:00 Temperature Temperature Source Pulse Rate 62 60 59 L Pulse Strength Respiratory Rate 20 H 20 H 20 H Respiratory Effort Respiratory Depth Respiratory Pattern Normal Normal Blood Pressure 112/57 L Blood Pressure Mean 75 Blood Pressure Source Monitor Blood Pressure Position Semi-Fowlers Blood Pressure Location Right Arm Pulse Ox 96 95 Oxygen Delivery Method Mechanical Ventilator Oxygen Flow Rate (L/min) Fraction of Inspired Oxygen (FIO2) 35 35 05/24/24 15:00 05/24/24 15:00 05/24/24 15:48 Temperature Temperature Source Pulse Rate 61 60 Pulse Strength Respiratory Rate 20 H Respiratory Effort Mechanically Ventilated Respiratory Depth Normal Respiratory Pattern Normal Blood Pressure 109/53 L Blood Pressure Mean 71 Blood Pressure Source Monitor Blood Pressure Position Semi-Fowlers Blood Pressure Location Right Arm Pulse Ox 96 Oxygen Delivery Method Mechanical Ventilator Mechanical Ventilator Oxygen Flow Rate (L/min) Fraction of Inspired Oxygen (FIO2) 35 05/24/24 16:00 05/24/24 16:08 05/24/24 16:30 Temperature 100.4 F H Temperature Source Temporal Pulse Rate 59 L 57 L 123 H Pulse Strength Respiratory Rate 20 H 20 H 43 H Respiratory Effort Respiratory Depth Respiratory Pattern Normal Blood Pressure 121/57 H Blood Pressure Mean 78 Blood Pressure Source Monitor Blood Pressure Position Semi-Fowlers Blood Pressure Location Right Arm Pulse Ox 96 96 Oxygen Delivery Method Mechanical Ventilator Oxygen Flow Rate (L/min) Fraction of Inspired Oxygen (FIO2) 35 35 05/24/24 17:00 05/24/24 17:15 05/24/24 17:30 Temperature Temperature Source Pulse Rate 58 L 57 L 63 Pulse Strength Respiratory Rate 23 H 22 H 27 H Respiratory Effort Respiratory Depth Respiratory Pattern Blood Pressure 137/47 H Blood Pressure Mean 77 Blood Pressure Source Monitor Monitor Monitor Blood Pressure Position Semi-Fowlers Semi-Fowlers Semi-Fowlers Blood Pressure Location Right Arm Right Arm Right Arm Pulse Ox 96 96 99 Oxygen Delivery Method Mechanical Ventilator Mechanical Ventilator Mechanical Ventilator Oxygen Flow Rate (L/min) Fraction of Inspired Oxygen (FIO2) 35 35 35 05/24/24 17:45 05/24/24 18:00 05/24/24 18:15 Temperature Temperature Source Pulse Rate 105 H 56 L 53 L Pulse Strength Respiratory Rate 47 H 20 H 20 H Respiratory Effort Respiratory Depth Respiratory Pattern Blood Pressure 133/65 H 131/56 H 134/60 H Blood Pressure Mean 87 81 84 Blood Pressure Source Monitor Monitor Monitor Blood Pressure Position Semi-Fowlers Semi-Fowlers Semi-Fowlers Blood Pressure Location Right Arm Right Arm Right Arm Pulse Ox 95 96 Oxygen Delivery Method Mechanical Ventilator Mechanical Ventilator Oxygen Flow Rate (L/min) Fraction of Inspired Oxygen (FIO2) 35 35 05/24/24 18:30 05/24/24 18:45 05/24/24 19:00 Temperature Temperature Source Pulse Rate 54 L 52 L 53 L Pulse Strength Respiratory Rate 20 H 20 H 20 H Respiratory Effort Respiratory Depth Respiratory Pattern Normal Blood Pressure 135/59 H 135/66 H Blood Pressure Mean 84 89 Blood Pressure Source Monitor Monitor Blood Pressure Position Semi-Fowlers Semi-Fowlers Blood Pressure Location Right Arm Right Arm Pulse Ox 96 96 Oxygen Delivery Method Mechanical Ventilator Mechanical Ventilator Oxygen Flow Rate (L/min) Fraction of Inspired Oxygen (FIO2) 35 35 05/24/24 19:04 05/24/24 20:00 05/24/24 20:00 Temperature Temperature Source Pulse Rate 52 L 51 L Pulse Strength Respiratory Rate 20 H 20 H Respiratory Effort Mechanically Ventilated Respiratory Depth Normal Respiratory Pattern Normal Normal Blood Pressure 136/60 H Blood Pressure Mean 85 Blood Pressure Source Monitor Blood Pressure Position Semi-Fowlers Blood Pressure Location Right Arm Pulse Ox 95 96 Oxygen Delivery Method Mechanical Ventilator Mechanical Ventilator Oxygen Flow Rate (L/min) Fraction of Inspired Oxygen (FIO2) 35 35 05/24/24 21:00 05/24/24 22:00 05/24/24 22:00 Temperature 98.6 F Temperature Source Temporal Pulse Rate 49 L 49 L Pulse Strength Normal (2+) Respiratory Rate 20 H 20 H Respiratory Effort Respiratory Depth Respiratory Pattern Blood Pressure 138/59 H 132/58 H Blood Pressure Mean 85 82 Blood Pressure Source Monitor Monitor Blood Pressure Position Semi-Fowlers Semi-Fowlers Blood Pressure Location Right Arm Right Arm Pulse Ox 96 96 Oxygen Delivery Method Mechanical Ventilator Mechanical Ventilator Oxygen Flow Rate (L/min) Fraction of Inspired Oxygen (FIO2) 35 35 05/24/24 22:43 05/24/24 23:00 05/25/24 00:00 Temperature Temperature Source Pulse Rate 55 L 45 L Pulse Strength Respiratory Rate 26 H 20 H Respiratory Effort Mechanically Ventilated Respiratory Depth Normal Respiratory Pattern Tachypnea Normal Blood Pressure 135/58 H Blood Pressure Mean 83 Blood Pressure Source Monitor Blood Pressure Position Semi-Fowlers Blood Pressure Location Left Arm Pulse Ox 96 97 Oxygen Delivery Method Mechanical Ventilator Mechanical Ventilator Oxygen Flow Rate (L/min) Fraction of Inspired Oxygen (FIO2) 35 35 05/25/24 00:00 05/25/24 01:00 05/25/24 01:13 Temperature Temperature Source Pulse Rate 44 L 43 L 41 L Pulse Strength Respiratory Rate 20 H 20 H 20 H Respiratory Effort Respiratory Depth Respiratory Pattern Normal Blood Pressure 137/62 H 132/60 H Blood Pressure Mean 87 84 Blood Pressure Source Monitor Monitor Blood Pressure Position Semi-Fowlers Semi-Fowlers Blood Pressure Location Left Arm Left Arm Pulse Ox 97 97 Oxygen Delivery Method Mechanical Ventilator Mechanical Ventilator Oxygen Flow Rate (L/min) Fraction of Inspired Oxygen (FIO2) 35 35 05/25/24 01:32 05/25/24 02:00 05/25/24 03:00 Temperature 98.2 F Temperature Source Temporal Pulse Rate 41 L 43 L 40 L Pulse Strength Respiratory Rate 20 H 20 H 20 H Respiratory Effort Respiratory Depth Respiratory Pattern Normal Blood Pressure 134/67 H 128/64 H Blood Pressure Mean 89 85 Blood Pressure Source Monitor Monitor Blood Pressure Position Semi-Fowlers Semi-Fowlers Blood Pressure Location Left Arm Left Arm Pulse Ox 97 97 97 Oxygen Delivery Method Mechanical Ventilator Mechanical Ventilator Oxygen Flow Rate (L/min) Fraction of Inspired Oxygen (FIO2) 35 35 35 05/25/24 04:00 05/25/24 04:00 05/25/24 04:22 Temperature Temperature Source Pulse Rate 41 L 40 L Pulse Strength Respiratory Rate 20 H 20 H Respiratory Effort Mechanically Ventilated Respiratory Depth Normal Respiratory Pattern Normal Normal Blood Pressure 132/57 H Blood Pressure Mean 82 Blood Pressure Source Monitor Blood Pressure Position Semi-Fowlers Blood Pressure Location Left Arm Pulse Ox 97 95 Oxygen Delivery Method Mechanical Ventilator Mechanical Ventilator Oxygen Flow Rate (L/min) Fraction of Inspired Oxygen (FIO2) 35 35 05/25/24 05:00 05/25/24 06:00 05/25/24 06:35 Temperature Temperature Source Pulse Rate 75 41 L 39 L Pulse Strength Respiratory Rate 20 H 20 H 20 H Respiratory Effort Respiratory Depth Respiratory Pattern Normal Blood Pressure 118/56 L 124/59 H Blood Pressure Mean 76 80 Blood Pressure Source Monitor Monitor Blood Pressure Position Semi-Fowlers Semi-Fowlers Blood Pressure Location Left Arm Left Arm Pulse Ox 100 96 97 Oxygen Delivery Method Mechanical Ventilator Mechanical Ventilator Oxygen Flow Rate (L/min) Fraction of Inspired Oxygen (FIO2) 35 35 35 05/25/24 06:40 05/25/24 07:00 05/25/24 07:00 Temperature Temperature Source Pulse Rate 42 L 38 L 38 L Pulse Strength Respiratory Rate 20 H 20 H Respiratory Effort Respiratory Depth Respiratory Pattern Normal Blood Pressure 127/58 H Blood Pressure Mean 81 Blood Pressure Source Monitor Blood Pressure Position Semi-Fowlers Blood Pressure Location Left Arm Pulse Ox 96 Oxygen Delivery Method Mechanical Ventilator Oxygen Flow Rate (L/min) Fraction of Inspired Oxygen (FIO2) 35 05/25/24 08:00 05/25/24 08:00 05/25/24 08:56 Temperature 97.8 F Temperature Source Temporal Pulse Rate 41 L 43 L Pulse Strength Respiratory Rate 20 H 22 H Respiratory Effort Mechanically Ventilated Respiratory Depth Normal Respiratory Pattern Normal Normal Blood Pressure 115/55 L Blood Pressure Mean 75 Blood Pressure Source Monitor Blood Pressure Position Semi-Fowlers Blood Pressure Location Left Arm Pulse Ox 96 97 Oxygen Delivery Method Mechanical Ventilator Mechanical Ventilator Oxygen Flow Rate (L/min) 35 Fraction of Inspired Oxygen (FIO2) 35 35 05/25/24 09:00 05/25/24 10:00 05/25/24 10:58 Temperature Temperature Source Pulse Rate 52 L 39 L 48 L Pulse Strength Respiratory Rate 23 H 20 H 20 H Respiratory Effort Respiratory Depth Respiratory Pattern Normal Blood Pressure 117/57 L 106/55 L Blood Pressure Mean 77 72 Blood Pressure Source Monitor Monitor Blood Pressure Position Semi-Fowlers Semi-Fowlers Blood Pressure Location Left Arm Left Arm Pulse Ox 98 95 96 Oxygen Delivery Method Mechanical Ventilator Mechanical Ventilator Oxygen Flow Rate (L/min) Fraction of Inspired Oxygen (FIO2) 35 35 35 Weight Weight: 110.3 kg Body Mass Index (BMI) 36.8 EEG Results Procedure Details EEG Procedure Details: FLORY ARIZA is a 64 year old M with a past medical history of , who presents for evaluation of Electroencephalogram on DATE at TIME Physical Exam Narrative Eyes will occasionally look to the L and upward, will intermittently move to the R moves arms and legs b/l strongly arms will grab onto the handrails and start to pull The legs will kick intermittently Does not follow commands Lab / Micro Data 05/25/24 07:30 05/25/24 17:00 Labs: Laboratory Results - last 24 hr 05/25/24 07:30: WBC 7.5, RBC 4.17 L, Hgb 13.8, Hct 44.9, MCV 107.7 H, MCH 33.1 H, MCHC 30.7 L, RDW Std Deviation 72.3 H, RDW Coeff of Babatunde 18.1 H, Plt Count 138 L, MPV 10.1, Immature Gran % (Auto) 0.800, Neut % (Auto) 87.2 H, Lymph % (Auto) 5.5 L, Toombs % (Auto) 6.4, Eos % (Auto) 0.0, Baso % (Auto) 0.1, Absolute Neuts (auto) 6.6, Absolute Lymphs (auto) 0.41 L, Nucleated RBC % 0, Anisocytosis RARE, Sodium 150 H, Potassium 4.6, Chloride 118 H, Carbon Dioxide 25.1, Anion Gap 7, BUN 23 H, Creatinine 1.54 H, Estim Creat Clear Calc 59.91, Est GFR (MDRD) Non-Af 51 L, BUN/Creatinine Ratio 15.1, Glucose 181 H, Calcium 8.8, Total Bilirubin 0.58, AST 22, ALT 15, Alkaline Phosphatase 97, Total Protein 7.5, Albumin 3.4, Globulin 4.1, Albumin/Globulin Ratio 0.8 L 05/25/24 08:30: Vancomycin Trough 24.5 H Micro: Microbiology 05/23/24 11:00 Blood Culture (Wb) - Right Hand Blood Culture - Preliminary No growth in 48 hours. 05/23/24 11:00 Blood Culture (Wb) - Anticubital Right Blood Culture - Preliminary 05/23/24 12:20 Sputum, Induced/Lukens Gram Stain - Final 05/23/24 12:20 Sputum, Induced/Lukens Respiratory Culture - Final Presumptive C albicans 05/23/24 11:20 Urine, Clean Catch Urine Culture - Final Gram negative behzda ABG Data ABG results: ABG 05/25/24 13:00 Specimen Type ART Sample Site L Brach pH 7.38 Bicarbonate Actual 27.5 H Total CO2 29 Base Excess 2 O2 Saturation 91 L O2 % 35.0 ABG pCO2 46.6 H ABG pO2 62 L Respiration Rate 20 O2 Delivery Device Adult Vent Vent Mode AC Tidal Volume 450.0 POC PEEP 5 Rhythm Strip Rhythm Strip: Sinus Rhythm Rate: 95 Ectopy: None Active Medications Active Medications Active Medications: Current Medications Generic Name Dose Route Start Last Admin Trade Name Freq PRN Reason Stop Dose Admin Acetaminophen 650 mg 05/23/24 21:06 Acetaminophen 650 Mg/20 Ml Udc GT Q6H PRN PRN Pain 1-10 Or Fever>100.7 Albuterol/Ipratropium 3 ml 05/23/24 19:30 05/25/24 12:55 Ipratropium/Albuterol Sulfate 3 Ml Ampul.Neb INHALATION 3 ml Q6H.RT JUSTIN Administration Atorvastatin Calcium 10 mg 05/23/24 22:00 05/24/24 21:32 Atorvastatin Calcium 10 Mg Tablet GT 10 mg QHS JUSTIN Administration Budesonide 0.5 mg 05/23/24 19:30 05/25/24 11:00 Budesonide Respules 0.5 Mg/2 Ml Ampul.Neb. INHALATION Not Given Q12H JUSTIN Chlorhexidine Gluconate 15 ml 05/24/24 10:00 05/25/24 08:00 Chlorhexidine 15 Ml PO 15 ml BID JUSTIN Administration Chlorhexidine Gluconate 1 each 05/25/24 10:00 05/25/24 06:03 Chlorhexidine Gluc 2% Cloth 1 Each [place] TOPICAL 1 each DAILY JUSTIN Administration Cholecalciferol 50 mcg 05/23/24 22:00 05/24/24 21:32 Cholecalciferol (Vit D3) 25 Mcg Tablet (1,000 Units) GT 50 mcg QHS JUSTIN Administration Enoxaparin Sodium 40 mg 05/24/24 10:00 05/25/24 11:03 Enoxaparin 40 Mg/0.4 Ml Syringe SC 40 mg DAILY JUSTIN Administration Propofol 1,000 mg in 100 mls @ 12.324 mls/hr 05/23/24 11:35 05/25/24 12:00 Diprivan CONT INF 10 mcg/kg/min .Q8H7M JUSTIN 6.2 mls/hr Titration Protocol 20 MCG/KG/MIN Fentanyl 100 mls @ 5 mls/hr 05/23/24 12:00 05/25/24 12:00 CONT INF 25 mcg/hr UD JUSTIN 2.5 mls/hr Titration Protocol 50 MCG/HR Pantoprazole Sodium 40 mg/ 110 mls @ 330 mls/hr 05/23/24 22:00 05/25/24 10:59 Sodium Chloride IV 330 mls/hr Q12 JUSTIN Administration Piperacillin Sod/Tazobactam 50 mls @ 12.5 mls/hr 05/23/24 22:00 05/25/24 12:49 Sod 3.375 gm/ Sodium Chloride IV Infused Q8 JUSTIN Infusion Vancomycin IV-PHARMACY TO DOSE 500 mls @ 250 mls/hr 05/23/24 18:16 1 each/ Sodium Chloride IV X1 PRN Rx to Dose Protocol Sodium Chloride 100 mls @ 15 mls/hr 05/23/24 20:03 05/24/24 12:50 IV Infused .Q6H40M PRN Infusion Saline Flush Sodium Chloride 100 mls @ 15 mls/hr 05/23/24 20:03 05/24/24 12:46 IV Infused .Q6H40M PRN Infusion Additional IVPB Infusion Enteral Nutritional Formula 1,000 mls @ 50 mls/hr 05/24/24 17:40 05/25/24 03:44 Vital Af 1.2 Colin Liquid GT 30 mls/hr .Q20H JUSTIN Infusion Dexmedetomidine HCl 1,000 mcg/ 250 mls @ 14.113 mls/hr 05/24/24 23:45 05/25/24 09:00 Sodium Chloride CONT INF 0 mcg/kg/hr .[id number] JUSTIN 0 mls/hr Titration Protocol 0.5 MCG/KG/HR Dextrose 1,000 mls @ 60 mls/hr 05/25/24 11:30 05/25/24 12:49 IV 05/26/24 20:49 60 mls/hr .[id number] JUSTIN Administration Protocol [place] Carbonate 300 mg 05/25/24 22:00 [place] Carbonate 300mg Capsule GT QHS JUSTIN Methylprednisolone Sodium Succinate 40 mg 05/24/24 14:00 05/25/24 06:07 Methylprednisolone Sod Succ 40 Mg/Ml Vial IV 40 mg Q8 JUSTIN Administration Montelukast Sodium 10 mg 05/24/24 10:00 05/25/24 11:04 Montelukast 10 Mg Tablet GT 10 mg DAILY JUSTIN Administration Mupirocin 1 applic 05/25/24 11:20 Mupirocin Ointment 22gm Tube TOPICAL BID JUSTIN Protocol Olanzapine 10 mg 05/24/24 10:00 05/25/24 11:04 Olanzapine 10 Mg Tablet GT 10 mg DAILY JUSTIN Administration Protocol Olanzapine 20 mg 05/23/24 22:00 05/24/24 21:32 Olanzapine 10 Mg Tablet GT 20 mg QHS JUSTIN Administration Ondansetron HCl 4 mg 05/23/24 18:16 Ondansetron 4 Mg/2 Ml Vial IV Q8H PRN PRN NAUSEA/VOMITING Sodium Chloride 10 - 40 ml 05/23/24 17:52 05/25/24 09:10 0.9% Saline Lock 10 Ml Syringe IV 20 ml UD PRN Administration SALINE FLUSH Sodium Chloride 10 - 40 ml 05/23/24 20:03 0.9% Saline Lock 10 Ml Syringe IV UD PRN SALINE FLUSH Vancomycin Protocol 1 lab 05/26/24 04:00 Vancomycin Trough/Random Due MC 05/26/24 08:00 DAILY JUSTIN
[2024-05-25] MEDS: Mupirocin Ointment 22gm Tube 1 APPLIC TOPICAL ×2 (13:56→20:35)
[2024-05-25 13:58] LABS: Bacteria 0 SEEN /hpf (None Seen); Mucous, Urine 0 SEEN /hpf (<or=2+); Squamous Epithelial Cells - UA 0 SEEN /hpf (0-5); White Blood Cells 0 SEEN /hpf (0-5)
[2024-05-25 14:00] LABS: Color, Urine Yellow (Yellow); Glucose, Dipstick Normal (Normal); Ketone-Dipstick Negative (Negative); Leukocyte Esterase-Dipstick 25 /ul (Negative); Nitrite-Dipstick Negative (Negative); Occult Blood-Urine 25 /ul (Negative); Protein-Dipstick 30 mg/dl (Negative); Specific Gravity, Urine 1.005 (1.002-1.030); Urine Bilirubin Dipstick Negative (Negative); Urine Clarity Clear (Clear); Urine Urobilinogen Normal (Normal)
[2024-05-25 14:05] LABS: Red Blood Cells-Urine 0 SEEN /hpf (0-5)
--- NOTE | 2024-05-25 14:31 | NURSING ---
pt found w/gudino in hand, ripped in 2 pieces, urine leaking on the bed. pt thrashing wildly in the bed. meds adjusted, rest of gudino removed, all pieces are present.
[2024-05-25] MEDS: Propofol 10MG/Ml 1,000 MG/100 ML Bottle 24.6 MG CONT INF (15:45)
--- NOTE | 2024-05-25 16:29 | NURSING ---
education re chronic illness deferred till acute illness resolving
[2024-05-25 17:37] LABS: Anion Gap 6 (5-15); BUN 30 mg/dL (4-19); BUN/Creat Ratio 20.1 RATIO (10-20); Calcium,Total 8.5 mg/dL (7.6-11.0); Chloride 119 mmol/L (98-108); Creatinine, Serum 1.48 mg/dL (0.70-1.20); EST Glomerular Filtration Rate 53 (>60); Estimated Creatinine Clearance 62.34 ml/min (50-250); Glucose 139 mg/dL (70-99); Potassium 4.2 mmol/L (3.3-5.1); Sodium Level 152 mmol/L (133-145)
[2024-05-25 18:33] LABS: Protein, Urine (Random) 17.3 mg/dL (0.0-12.0); Protein:Creat Ratio 347 mg/g CRE (0-200); Urine Chloride < 20 mmol/L (Not Establ.); Urine Potassium 15.3 mmol/L (Not Establ.); Urine Sodium 43 mmol/L (Not Establ.)
[2024-05-25] MEDS: 0.9% Normal Saline (100mL Bag) 100 ML 15 ML IV (18:35)
--- NOTE | 2024-05-25 20:18 | NURSING ---
Propofol running @ 20 mcg/kg/min at shift change. Change made in MAR to reflect rate.
[2024-05-25] MEDS: Cholecalciferol (VIT D3) 25 MCG TABLET (1,000 UNITS) 50 MCG GT (20:27)
[2024-05-25] MEDS: OLANZapine 10 MG Tablet 20 MG GT (20:27)
[2024-05-25] MEDS: Lithium Carbonate 300mg Capsule 300 MG GT (20:27)
[2024-05-25] MEDS: Atorvastatin Calcium 10 MG Tablet GT (20:27)
[2024-05-25] MEDS: Propofol 10MG/Ml 1,000 MG/100 ML Bottle 18.5 MG CONT INF (21:29)
[2024-05-25 22:52] LABS: Osmolality, Urine 281 mOsm/KG
[2024-05-26] VITALS (32 sets, daily range): BP systolic 90–110; BP diastolic 48–58; PULSE 43–99; RESP 17–21; TEMP 36.2–37.5; O2SAT 95–98; BMI 37.4
[2024-05-26] MEDS: Vital AF 1.2 Cal Liquid 1,000 ML 50 ML GT ×2 (01:44→21:18)
[2024-05-26] MEDS: Propofol 10MG/Ml 1,000 MG/100 ML Bottle 18.5 MG CONT INF (01:44)
[2024-05-26] MEDS: Ipratropium/Albuterol Sulfate 3 ML AMPUL.NEB INHALATION ×4 (01:50→19:14)
[2024-05-26 03:38] LABS: Absolute Neutrophil Count 7.2 X10^3/uL (2.0-7.7); Basophil# 0.01 X10^3/uL; Basophil% 0.1 % (0-1); Hematocrit 41.8 % (40-54); Hemoglobin 12.5 g/dL (13.0-16.5); Lymphocyte % 3.8 % (19-41); Mean Corp Hgb Conc 29.9 g/dL (32-36); Mean Corpuscular Volume 110.3 fL (80-94); Mean Platelet Vol. 10.4 fl (6.2-12.0); Monocyte# 0.24 X10^3/uL; Monocyte% 3.1 % (0-10); NRBC Flagged by Analyzer 0 % (0-5); Neutrophil # 7.21 X10^3/uL (2.7-7.7); Neutrophil % 92.4 % (47-70); POSITIVE DIFFERENTIAL YES; POSITIVE MORPHOLOGY YES; Platelet Count 139 K/mm3 (150-450); RBC Distribution Width CV 18.4 % (11.6-14.6); RBC Distribution Width SD 74.5 fl (35.1-43.9); Red Blood Count 3.79 M/mm3 (4.6-6.2); White Blood Count 7.8 K/mm3 (4.4-11.0)
[2024-05-26 03:51] LABS: Differential Indicated SCAN CRITERIA MET
[2024-05-26 04:08] LABS: ALB/GLOB Ratio 0.8 RATIO (0.9-2.4); AST(SGOT) 32 U/L (<=37); Alanine Aminotransfer ALT/SGPT 21 U/L (<=46); Alkaline Phosphatase 103 U/L (40-129); Anion Gap 7 (5-15); BUN 33 mg/dL (4-19); BUN/Creat Ratio 21.8 RATIO (10-20); Calcium,Total 8.4 mg/dL (7.6-11.0); Carbon Dioxide 24.6 mmol/L (21.0-32.0); Chloride 118 mmol/L (98-108); Creatinine, Serum 1.53 mg/dL (0.70-1.20); EST Glomerular Filtration Rate 51 (>60); Estimated Creatinine Clearance 60.78 ml/min (50-250); Globulin 3.6 g/dL (2.2-4.2); Glucose 165 mg/dL (70-99); Potassium 4.4 mmol/L (3.3-5.1); Protein, Total 6.6 g/dL (5.9-8.4); Sodium Level 150 mmol/L (133-145); Total Bilirubin 0.47 mg/dL (0.00-1.30)
[2024-05-26 04:23] LABS: Differential Comment SCANNED
[2024-05-26 04:27] LABS: Vancomycin, Random Level 13.8 ug/mL (0.0-15.0)
[2024-05-26] MEDS: TITRATION PARAMETER CHANGE 1 EACH IV (04:29)
[2024-05-26 04:43] LABS: Anisocytosis 2+; Macrocytosis 2+
[2024-05-26 04:52] LABS: Base Excess 1 mmol/L (-2 to +2); Bicarbonate 26.7 mmol/L (22-26); Blood Gas Specimen Type ART; Mode AC; O2 Delivery Device Adult Vent; PEEP 5; PO2 67 mmHG (75-100); RR 20; SITE L Radial; SO2 92 % (95-99); Total Carbon Dioxide 28 mmol/L; pCO2 48.6 mmHg (35-45); pH 7.35 (7.35-7.45)
[2024-05-26] MEDS: Dextrose 5%-Water (1000mL Bag) 1,000 ML 60 ML IV (05:05)
[2024-05-26] MEDS: Piperacil/Tazobactam 3.375 GM in 0.9% Normal Saline (50mL MB+) 50 ML IV ×2 (05:05→14:24)
[2024-05-26] MEDS: Methylprednisolone Sod Succ 40 MG/ML VIAL IV (05:05)
[2024-05-26] MEDS: fentaNYL drip 100 ML 10 MCG CONT INF ×2 (05:41→16:04)
[2024-05-26] MEDS: Propofol 10MG/Ml 1,000 MG/100 ML Bottle 20.2 MG CONT INF ×4 (06:16→21:01)
--- NOTE | 2024-05-26 06:22 | PCM.RX.CS ---
Consult Antibiotic Management Pharmacy has been consulted to manage selected antibiotic: Vancomycin Type of Intervention Type of Consult: Follow-up Labs Labs: Sodium 150 mmol/L (133-145) H 05/26/24 03:30 Potassium 4.4 mmol/L (3.3-5.1) 05/26/24 03:30 Chloride 118 mmol/L (98-108) H 05/26/24 03:30 Carbon Dioxide 24.6 mmol/L (21.0-32.0) 05/26/24 03:30 Anion Gap 7 (5-15) 05/26/24 03:30 BUN 33 mg/dL (4-19) H 05/26/24 03:30 Creatinine 1.53 mg/dL (0.70-1.20) H 05/26/24 03:30 Est GFR (MDRD) Non-Af 51 (>60) L 05/26/24 03:30 BUN/Creatinine Ratio 21.8 RATIO (10-20) H 05/26/24 03:30 Glucose 165 mg/dL (70-99) H 05/26/24 03:30 Vancomycin Trough 24.5 ug/mL (5.0-15.0) H 05/25/24 08:30 Random Vancomycin 13.8 ug/mL (0.0-15.0) 05/26/24 03:30 Microbiology Microbiology: Microbiology 05/23/24 11:00 Blood Culture (Wb) - Right Hand Blood Culture - Preliminary No growth in 48 hours. 05/23/24 11:00 Blood Culture (Wb) - Anticubital Right Blood Culture - Preliminary 05/23/24 12:20 Sputum, Induced/Lukens Gram Stain - Final 05/23/24 12:20 Sputum, Induced/Lukens Respiratory Culture - Final Presumptive C albicans 05/23/24 11:20 Urine, Clean Catch Urine Culture - Final Gram negative behzad 05/23/24 11:20 Mucosa - Nose SARS-CoV-2, Influenza & RSV (PCR) - Final Goal Trough Goal Trough: 15-20 mcg/mL Pharmacy Plan for Drug Dosing Pharmacy Plan for Drug Dosing: Pharmacy Service will continue to monitor and adjust dosing as required. RANDOM LEVEL 13.8. START 1000MG Q12H AND DRAW TROUGH PRIOR TO 4TH DOSE Follow-Up Labs Follow-Up Labs: Trough: Vancomycin Date/Time Labs Ordered Labs to be done on [date and time ordered]: 05/27 @ [id number]
[2024-05-26] MEDS: CHLORHEXIDINE GLUC 2% CLOTH 1 EACH TOWELETTE TOPICAL (06:26)
[2024-05-26] MEDS: Vancomycin IV 1,000 MG/200 ML BAG 200 MG IV ×2 (06:26→17:51)
--- NOTE | 2024-05-26 07:11 | PCM.PN.HOSP ---
Reason for Visit Reason for Visit: Diagnoses Venous insufficiency (chronic) (peripheral) (05/23/24) Acute respiratory failure with hypoxia (05/23/24) Acute respiratory failure with hypercapnia (05/23/24) Subjective Subjective Still on the vent. Gets agitated very easily. Seizure-like activity noted by nursing yesterday. Objective Data Objective Data Vital Signs: Vital Signs Temp Pulse Resp BP Pulse Ox O2 Del Method O2 Flow Rate 36.9 C 67 21 H 109/52 L 97 Mechanical Ventilator 35 05/26/24 06:00 05/26/24 06:00 05/26/24 06:00 05/26/24 06:00 05/26/24 06:00 05/26/24 06:00 05/25/24 15:30 FiO2 35 05/26/24 06:00 Oxygen Flow Rate (L/min) 35 Oxygen Delivery Method Mechanical Ventilator Weight: 112 kg Body Mass Index (BMI) 37.4 Intake & Output: Intake and Output for Last 24 Hours 05/24/24 05/25/24 05/26/24 23:59 23:59 23:59 Intake Total 1877.51 / 1976.06 2798.07 / 3126.57 2089.71 / 2089.71 Output Total 3800 / 4650 2550 / 3300 1425 / 1425 Balance -1922.49 / -2673.94 248.07 / -173.43 664.71 / 664.71 Lab / Micro Data 05/26/24 03:30 05/26/24 03:30 Labs: Laboratory Results - last 24 hr 05/25/24 07:30: WBC 7.5, RBC 4.17 L, Hgb 13.8, Hct 44.9, MCV 107.7 H, MCH 33.1 H, MCHC 30.7 L, RDW Std Deviation 72.3 H, RDW Coeff of Bab[place] 18.1 H, Plt Count 138 L, MPV 10.1, Immature Gran % (Auto) 0.800, Neut % (Auto) 87.2 H, Lymph % (Auto) 5.5 L, [place] % (Auto) 6.4, Eos % (Auto) 0.0, Baso % (Auto) 0.1, Absolute Neuts (auto) 6.6, Absolute Lymphs (auto) 0.41 L, Nucleated RBC % 0, Anisocytosis RARE, Sodium 150 H, Potassium 4.6, Chloride 118 H, Carbon Dioxide 25.1, Anion Gap 7, BUN 23 H, Creatinine 1.54 H, Estim Creat Clear Calc 59.91, Est GFR (MDRD) Non-Af 51 L, BUN/Creatinine Ratio 15.1, Glucose 181 H, Calcium 8.8, Total Bilirubin 0.58, AST 22, ALT 15, Alkaline Phosphatase 97, Total Protein 7.5, Albumin 3.4, Globulin 4.1, Albumin/Globulin Ratio 0.8 L 05/25/24 08:30: Vancomycin Trough 24.5 H 05/25/24 13:30: Urine Color Yellow, Urine Clarity Clear, Urine pH 7.0, Ur Specific [place] 1.005, Urine Protein 30 H, Urine Glucose (UA) Normal, Urine Ketones Negative, Urine Occult Blood 25 H, Urine Nitrite Negative, Urine Bilirubin Negative, Urine Urobilinogen Normal, Ur Leukocyte Esterase 25 H, Urine RBC 0 SEEN, Urine WBC 0 SEEN, Ur Squamous Epith Cells 0 SEEN, Urine Bacteria 0 SEEN, Urine Mucus 0 SEEN, Urine Osmolality 281, U Random Total Protein 17.3 H, Ur Random Sodium 43, Urine Creatinine 49.80, Protein/Creatinin Ratio 347 H, Urine Potassium 15.3, Urine Chloride < 20 05/25/24 17:00: Sodium 152 H, Potassium 4.2, Chloride 119 H, Carbon Dioxide 26.0, Anion Gap 6, BUN 30 H, Creatinine 1.48 H, Estim Creat Clear Calc 62.34, Est GFR (MDRD) Non-Af 53 L, BUN/Creatinine Ratio 20.1 H, Glucose 139 H, Calcium 8.5 05/26/24 03:30: WBC 7.8, RBC 3.79 L, Hgb 12.5 L, Hct 41.8, MCV 110.3 H, MCH 33.0 H, MCHC 29.9 L, RDW Std Deviation 74.5 H, RDW Coeff of [place] 18.4 H, Plt Count 139 L, MPV 10.4, Immature Gran % (Auto) 0.600, Neut % (Auto) 92.4 H, Lymph % (Auto) 3.8 L, [place] % (Auto) 3.1, Eos % (Auto) 0.0, Baso % (Auto) 0.1, Absolute Neuts (auto) 7.2, Absolute Lymphs (auto) 0.30 L, Nucleated RBC % 0, Differential Comment SCANNED, Anisocytosis 2+, Macrocytosis 2+, Sodium 150 H, Potassium 4.4, Chloride 118 H, Carbon Dioxide 24.6, Anion Gap 7, BUN 33 H, Creatinine 1.53 H, Estim Creat Clear Calc 60.78, Est GFR (MDRD) Non-Af 51 L, BUN/Creatinine Ratio 21.8 H, Glucose 165 H, Calcium 8.4, Total Bilirubin 0.47, AST 32, ALT 21, Alkaline Phosphatase 103, Total Protein 6.6, Albumin 3.0 L, Globulin 3.6, Albumin/Globulin Ratio 0.8 L, Random Vancomycin 13.8 Micro: Microbiology 05/23/24 11:00 Blood Culture (Wb) - Right Hand Blood Culture - Preliminary No growth in 48 hours. 05/23/24 11:00 Blood Culture (Wb) - Anticubital Right Blood Culture - Preliminary 05/23/24 12:20 Sputum, Induced/Lukens Gram Stain - Final 05/23/24 12:20 Sputum, Induced/Lukens Respiratory Culture - Final Presumptive C albicans 05/23/24 11:20 Urine, Clean Catch Urine Culture - Final Gram negative behzad 05/23/24 11:20 Mucosa - Nose SARS-CoV-2, Influenza & RSV (PCR) - Final ABG Data ABG results: ABG 05/25/24 05/26/24 13:00 04:46 Specimen Type ART ART Sample Site L Brach L Radial pH 7.38 7.35 Bicarbonate Actual 27.5 H 26.7 H Total CO2 29 28 Base Excess 2 1 O2 Saturation 91 L 92 L O2 % 35.0 35.0 ABG pCO2 46.6 H 48.6 H ABG pO2 62 L 67 L Oj Test N/A Respiration Rate 20 20 O2 Delivery Device Adult Vent Adult Vent Vent Mode AC AC Tidal Volume 450.0 450.0 POC PEEP 5 5 Rhythm Strip Rhythm Strip: Sinus Rhythm Rate: 95 Ectopy: None Physical Exam Narrative POCUS: Indication is for respiratory failure and edema. PLAX limited but showed normal aortic valve motion and normal, grossly, LV function. Apical view showed grossly normal apical function. IVC visualized and did not show any significant change with inspiratory versus expiratory. Pleural views showed B-lines left laterally. Normal lung sliding noted throughout the other k[place]. Const Constitutional Narrative: intubated/sedated. HEENT head/scalp atraumatic and moist oral mucous membranes Resp normal respiratory effort, no retractions, no use of accessory muscles and clear to auscultation bilaterally Cardio regular rate, regular rhythm, S1 normal heart sound and S2 normal heart sound Extremity normal to inspection, full ROM and no clubbing, cyanosis or edema Neuro oriented x3, CN's II-XII intact bilaterally, moves all extremities, no focal motor deficits and no sensory deficits noted Sensorium / Orientation: awake and alert Assessment & Plan Assessment/Plan (1) Acute respiratory failure with hypoxia and hypercapnia: PLAN: Intubated. 2/2 COPD exacerbation + CHF Wean ventilator as able. Pip/tazo and vancomycin (2) COPD with acute exacerbation: PLAN: BDs and methylprednisolone (3) Metabolic encephalopathy: PLAN: 2/2 CO2 narcosis plus underlying psychiatric history [place] level WNL on admission. EEG ordered given concern for seizure on 05/25 (4) Hypernatremia: PLAN: ongoing. decrease free fluid. (5) (HFpEF) heart failure with preserved ejection fraction: PLAN: acute add furosemide PLAN: Plan Chronic conditions: Venous stasis dermatitis schizophrenia obesity class I VTE prophylaxis: enoxaparin. Charges/Coding Visit Charges Inpatient E&M: 14882 [facility] Hosp L3
[2024-05-26] MEDS: Budesonide Respules 0.5 MG/2 ML AMPUL.NEB. INHALATION ×2 (07:16→19:14)
[2024-05-26] MEDS: Mupirocin Ointment 22gm Tube 1 APPLIC TOPICAL (07:40)
[2024-05-26] MEDS: Chlorhexidine 15 ML PO ×2 (07:40→21:27)
[2024-05-26] MEDS: Montelukast 10 MG Tablet GT (07:41)
[2024-05-26] MEDS: OLANZapine 10 MG Tablet GT (07:41)
[2024-05-26] MEDS: Enoxaparin 40 MG/0.4 ML Syringe SC (07:41)
[2024-05-26] MEDS: Pantoprazole Sodium 40 MG in 0.9% Normal Saline (100mL MB+) 100 ML 330 MG IV ×2 (07:49→20:55)
--- NOTE | 2024-05-26 08:59 | WOUNDNOTE ---
wound photo: right foot
--- NOTE | 2024-05-26 09:00 | WOUNDNOTE ---
wound photo: left foot
--- NOTE | 2024-05-26 11:09 | PCM.CONS.R ---
Documented by User: MARY Warren 05/26/24 11:21 Assessment & Plan Assessment/Plan (1) Hypernatremia: (2) NILESH (acute kidney injury): PLAN: Plan 64-year-old male with past medical history significant for COPD, bipolar and schizophrenia who presented emergency room with complaints of shortness of breath admitted for acute hypoxic respiratory failure and now on ventilator support. Nephrology consulted in view of rising creatinine and patient with history of lithium use (home dose 600 mg daily). Reviewed past serum creatinine trends and baseline creatinine has been ranging around 1.1 to 1.4 mg/dL. 12/13/2023 serum creatinine 1.33, 04/21/2024 creatinine 1.48. On admission creatinine 1.30, serum creatinine peaked 1.54 yesterday and today his creatinine is 1.53. Serum bicarb and potassium normal. [place] level on admission normal at 1.01. Quite possibly patient has component of CKD given long history of lithium use. Slight fluctuation in serum creatinine likely from hemodynamics and hypotension with poor renal perfusion. Blood pressures have improved, patient is not on any IV pressors at this point. Urinalysis 30 protein, no RBC, urine protein creatinine ratio 347 mg/g. Urine sodium 43. Doubt obstructive component as patient does have indwelling Greer with adequate urine output. Last chest x-ray from admission showed some mild congestion. Patient is receiving free water flushes 300 mL every 4 hours and is also on D5W, sodium did improve slightly. His lithium dose was decreased from 600mg to 300mg daily. If having difficult time extubating patient from a fluid standpoint okay to give diuretics. Will continue monitor creatinine trends. Patient is net negative so far 571 mL for this admission. Urine output daily around 2.5 L. No acute indication for [employer]. Further orders forthcoming as hospitalization evolves, thank you for allowing us to participate in the care of Mr. Ariza. Assessment and plan reviewed Dr. Gamez. HPI Consult Data Date of Consult: 05/26/24 HPI Narrative HPI Narrative: FLORY ARIZA, is a 64 M with past medical history significant for bipolar schizophrenia, COPD, chronic venous stasis dermatitis, dysphagia and debility who was brought to the emergency room on May 23 for evaluation of altered mental status. Brain CT did not show any acute process. Chest x-ray mild congestion. Patient was admitted for acute respiratory failure with hypoxia and hypercapnia. Patient was intubated. Nephrology consulted for evaluation of elevated creatinine and patient with history of lithium use. Information is gathered from the chart. Reviewing past creatinine trend baseline creatinine likely ranging around 1.1 to 1.4 mg/dL. Patient's creatinine was 1.30 on admission and today his creatinine is 1.53 mg/dL. Also to note sodium was 131 on admission, peaked 152 yesterday and today his sodium is 150. [facility] Medical History Hypercarbia Aspiration pneumonia Hypoxemia GERD (gastroesophageal reflux disease) Sepsis Tobacco abuse Schizophrenia COPD exacerbation Bipolar disorder Home Medications ?Medication ?Instructions ?Recorded ?Last Taken ?Type olanzapine 10 mg tablet 10 mg PO DAILY 02/18/15 Unknown History omeprazole 20 mg capsule,delayed 20 mg PO BID 02/18/15 Unknown History release spironolactone 25 mg tablet 25 mg PO DAILY 02/18/15 Unknown History fluphenazine decanoate 25 mg/mL 25 mg IM Q14D PARANOID 07/29/16 Unknown History injection solution SCHIZOPHRENIA montelukast 10 mg tablet 10 mg PO DAILY 05/02/18 Unknown History olanzapine 20 mg tablet (Zyprexa) 20 mg PO QHS 05/02/18 Unknown History omega-3 fatty acids-fish oil 300 2 capsule PO BID deficiency 05/02/18 10/29/23 History mg-1,000 mg capsule simvastatin 20 mg tablet (Zocor) 20 mg PO QHS 05/02/18 Unknown History amlodipine 5 mg tablet 5 mg PO DAILY bp 03/22/23 Unknown History ammonium lactate 12 % topical cream 1 applic topical BID skin 10/30/23 10/29/23 History irritation multivitamin (Daily Multi-Vitamin 1 tab PO DAILY replacement 12/09/23 Unknown History tablet) acetaminophen 325 mg tablet 650 mg PO Q4H PRN fever or pain 05/23/24 Unknown History acetaminophen 650 mg rectal 650 mg MN Q4H PRN pain 05/23/24 Unknown History suppository aluminum-mag hydroxide-simethicone 30 ml PO Q4H PRN indigestion 05/23/24 Unknown History 400 mg-400 mg-40 mg/5 mL oral susp (Mintox Maximum Strength) amoxicillin 875 mg-potassium 1 tab PO Q12H 05/23/24 Unknown History clavulanate 125 mg tablet bisacodyl 10 mg rectal suppository 10 mg MN DAILY PRN CONSTIPATION 05/23/24 Unknown History cholecalciferol (vitamin D3) 50 50 mcg PO QHS SUPPLEMENT 05/23/24 Unknown History mcg (2,000 unit) tablet (D3 DOTS) lithium carbonate 600 mg capsule 600 mg PO QHS BIPOLAR 05/23/24 Unknown History magnesium hydroxide 400 mg/5 mL 30 ml PO DAILY PRN constipation 05/23/24 Unknown History oral suspension (Dulcolax (magnesium hydroxide)) melatonin 5 mg tablet 5 mg PO QHS 05/23/24 Unknown History menthol 10 % topical cream 1 applic topical Q12H PRN pain 05/23/24 Unknown History (Biofreeze (menthol)) sodium phosphates 19 gram-7 118 ml MN BID PRN constipation 05/23/24 Unknown History gram/118 mL enema (Fleet Enema) trazodone 50 mg tablet 50 mg PO QHS sleep 05/23/24 Unknown History Allergy/AdvReac Type Severity Reaction Status Date / Time codeine AdvReac Upset Verified 12/08/23 16:08 Stomach haloperidol (From Haldol) AdvReac Abd Verified 12/08/23 16:08 cramps/diarrhea haloperidol lactate (From AdvReac Abd Verified 12/08/23 16:08 Haldol) cramps/diarrhea ziprasidone AdvReac Unknown Verified 12/08/23 16:08 Family History Mother Diabetes Surgical History S/P right knee arthroscopy S/P laparoscopic cholecystectomy History of esophagogastroduodenoscopy (EGD) S/P bilateral inguinal hernia repair Social History Smoking Status: Current every day smoker tobacco type: cigarettes ROS ROS Narrative Unable to obtain Physical Exam Narrative Intubated on ventilator support No apparent distress S1, S2, RRR Lung sounds clear anteriorly, no wheezes or rales noted Abdomen soft, rounded Trace nonpitting edema bilateral lower legs with severe venous stasis dermatitis noted bilateraly Indwelling Greer with clear yellow urine in bag Lab / Micro Data 05/27/24 05:30 05/27/24 05:30 Labs: Laboratory Results - last 24 hr 05/25/24 13:30: Urine Color Yellow, Urine Clarity Clear, Urine pH 7.0, Ur Specific [place] 1.005, Urine Protein 30 H, Urine Glucose (UA) Normal, Urine Ketones Negative, Urine Occult Blood 25 H, Urine Nitrite Negative, Urine Bilirubin Negative, Urine Urobilinogen Normal, Ur Leukocyte Esterase 25 H, Urine RBC 0 SEEN, Urine WBC 0 SEEN, Ur Squamous Epith Cells 0 SEEN, Urine Bacteria 0 SEEN, Urine Mucus 0 SEEN, Urine Osmolality 281, U Random Total Protein 17.3 H, Ur Random Sodium 43, Urine Creatinine 49.80, Protein/Creatinin Ratio 347 H, Urine Potassium 15.3, Urine Chloride < 20 05/25/24 17:00: Sodium 152 H, Potassium 4.2, Chloride 119 H, Carbon Dioxide 26.0, Anion Gap 6, BUN 30 H, Creatinine 1.48 H, Estim Creat Clear Calc 62.34, Est GFR (MDRD) Non-Af 53 L, BUN/Creatinine Ratio 20.1 H, Glucose 139 H, Calcium 8.5 05/26/24 03:30: WBC 7.8, RBC 3.79 L, Hgb 12.5 L, Hct 41.8, MCV 110.3 H, MCH 33.0 H, MCHC 29.9 L, RDW Std Deviation 74.5 H, RDW Coeff of Babatunde 18.4 H, Plt Count 139 L, MPV 10.4, Immature Gran % (Auto) 0.600, Neut % (Auto) 92.4 H, Lymph % (Auto) 3.8 L, [place] % (Auto) 3.1, Eos % (Auto) 0.0, Baso % (Auto) 0.1, Absolute Neuts (auto) 7.2, Absolute Lymphs (auto) 0.30 L, Nucleated RBC % 0, Differential Comment SCANNED, Anisocytosis 2+, Macrocytosis 2+, Sodium 150 H, Potassium 4.4, Chloride 118 H, Carbon Dioxide 24.6, Anion Gap 7, BUN 33 H, Creatinine 1.53 H, Estim Creat Clear Calc 60.78, Est GFR (MDRD) Non-Af 51 L, BUN/Creatinine Ratio 21.8 H, Glucose 165 H, Calcium 8.4, Total Bilirubin 0.47, AST 32, ALT 21, Alkaline Phosphatase 103, Total Protein 6.6, Albumin 3.0 L, Globulin 3.6, Albumin/Globulin Ratio 0.8 L, Random Vancomycin 13.8 Micro: Microbiology 05/23/24 11:00 Blood Culture (Wb) - Right Hand Blood Culture - Preliminary No growth in 48 hours. 05/23/24 11:00 Blood Culture (Wb) - Anticubital Right Blood Culture - Preliminary 05/23/24 12:20 Sputum, Induced/Lukens Gram Stain - Final 05/23/24 12:20 Sputum, Induced/Lukens Respiratory Culture - Final Presumptive C albicans 05/23/24 11:20 Urine, Clean Catch Urine Culture - Final Gram negative behzad ABG Data ABG results: ABG 05/25/24 05/26/24 13:00 04:46 Specimen Type ART ART Sample Site L Brach L Radial pH 7.38 7.35 Bicarbonate Actual 27.5 H 26.7 H Total CO2 29 28 Base Excess 2 1 O2 Saturation 91 L 92 L O2 % 35.0 35.0 ABG pCO2 46.6 H 48.6 H ABG pO2 62 L 67 L Oj Test N/A Respiration Rate 20 20 O2 Delivery Device Adult Vent Adult Vent Vent Mode AC AC Tidal Volume 450.0 450.0 POC PEEP 5 5 Rhythm Strip Rhythm Strip: Sinus Rhythm Rate: 95 Ectopy: None Documented by User: Dr. Trevor Strong MD 05/27/24 18:47 Assessment & Plan Assessment/Plan (1) Hypernatremia: (2) NILESH (acute kidney injury): HPI Consult Data Date of Consult: 05/27/24 [facility] Medical History Hypercarbia Aspiration pneumonia Hypoxemia GERD (gastroesophageal reflux disease) Sepsis Tobacco abuse Schizophrenia COPD exacerbation Bipolar disorder Home Medications ?Medication ?Instructions ?Recorded ?Last Taken ?Type olanzapine 10 mg tablet 10 mg PO DAILY 02/18/15 Unknown History omeprazole 20 mg capsule,delayed 20 mg PO BID 02/18/15 Unknown History release spironolactone 25 mg tablet 25 mg PO DAILY 02/18/15 Unknown History fluphenazine decanoate 25 mg/mL 25 mg IM Q14D PARANOID 07/29/16 Unknown History injection solution SCHIZOPHRENIA montelukast 10 mg tablet 10 mg PO DAILY 05/02/18 Unknown History olanzapine 20 mg tablet (Zyprexa) 20 mg PO QHS 05/02/18 Unknown History omega-3 fatty acids-fish oil 300 2 capsule PO BID deficiency 05/02/18 10/29/23 History mg-1,000 mg capsule simvastatin 20 mg tablet (Zocor) 20 mg PO QHS 05/02/18 Unknown History amlodipine 5 mg tablet 5 mg PO DAILY bp 03/22/23 Unknown History ammonium lactate 12 % topical cream 1 applic topical BID skin 10/30/23 10/29/23 History irritation multivitamin (Daily Multi-Vitamin 1 tab PO DAILY replacement 12/09/23 Unknown History tablet) acetaminophen 325 mg tablet 650 mg PO Q4H PRN fever or pain 05/23/24 Unknown History acetaminophen 650 mg rectal 650 mg MN Q4H PRN pain 05/23/24 Unknown History suppository aluminum-mag hydroxide-simethicone 30 ml PO Q4H PRN indigestion 05/23/24 Unknown History 400 mg-400 mg-40 mg/5 mL oral susp (Mintox Maximum Strength) amoxicillin 875 mg-potassium 1 tab PO Q12H 05/23/24 Unknown History clavulanate 125 mg tablet bisacodyl 10 mg rectal suppository 10 mg MN DAILY PRN CONSTIPATION 05/23/24 Unknown History cholecalciferol (vitamin D3) 50 50 mcg PO QHS SUPPLEMENT 05/23/24 Unknown History mcg (2,000 unit) tablet (D3 DOTS) lithium carbonate 600 mg capsule 600 mg PO QHS BIPOLAR 05/23/24 Unknown History magnesium hydroxide 400 mg/5 mL 30 ml PO DAILY PRN constipation 05/23/24 Unknown History oral suspension (Dulcolax (magnesium hydroxide)) melatonin 5 mg tablet 5 mg PO QHS 05/23/24 Unknown History menthol 10 % topical cream 1 applic topical Q12H PRN pain 05/23/24 Unknown History (Biofreeze (menthol)) sodium phosphates 19 gram-7 118 ml MN BID PRN constipation 05/23/24 Unknown History gram/118 mL enema (Fleet Enema) trazodone 50 mg tablet 50 mg PO QHS sleep 05/23/24 Unknown History Allergy/AdvReac Type Severity Reaction Status Date / Time codeine AdvReac Upset Verified 12/08/23 16:08 Stomach haloperidol (From Haldol) AdvReac Abd Verified 12/08/23 16:08 cramps/diarrhea haloperidol lactate (From AdvReac Abd Verified 12/08/23 16:08 Haldol) cramps/diarrhea ziprasidone AdvReac Unknown Verified 12/08/23 16:08 Family History Mother Diabetes Surgical History S/P right knee arthroscopy S/P laparoscopic cholecystectomy History of esophagogastroduodenoscopy (EGD) S/P bilateral inguinal hernia repair Social History Smoking Status: Current every day smoker tobacco type: cigarettes Lab / Micro Data 05/27/24 05:30 05/27/24 05:30
--- NOTE | 2024-05-26 11:42 | PN.CC_ITS ---
Objective Data Objective Data Vital Signs: Vital Signs Last response 3 Temperature 37.4 C H 05/26/24 11:00 Temperature Source Core 05/26/24 11:00 Pulse Rate 61 05/26/24 11:00 Pulse Strength Weak (1+) 05/26/24 07:51 Respiratory Rate 20 H 05/26/24 11:00 Respiratory Effort Normal, Non-Labored, Mechanically Ventilated 05/26/24 08:00 Respiratory Depth Normal 05/26/24 08:00 Respiratory Pattern Normal 05/26/24 08:00 Blood Pressure 105/52 L 05/26/24 11:00 Blood Pressure Mean 69 05/26/24 11:00 Blood Pressure Source Monitor 05/26/24 11:00 Blood Pressure Position Semi-Fowlers 05/26/24 11:00 Blood Pressure Location Left Arm 05/26/24 11:00 Pulse Ox 95 05/26/24 11:00 Oxygen Delivery Method Mechanical Ventilator 05/26/24 11:00 Oxygen Flow Rate (L/min) 35 05/25/24 15:30 Fraction of Inspired Oxygen (FIO2) 30 05/26/24 11:00 I&O: I&O Last 24 Hours 3 05/25/24 05/25/24 05/26/24 11:59 23:59 11:59 Intake Total 664.80 / 3126.57 2133.27 / 3126.57 3166.57 / 3166.57 Output Total 1900 / 3300 650 / 3300 2275 / 2275 Balance -1235.20 / -173.43 1483.27 / -173.43 891.57 / 891.57 I&O: Total Stay 3 05/23/24 10:37 thru 05/26/24 11:06 Intake Total 9985.21 Output Total 27067 Balance -839.79 Current Meds Ordered / Administered: Current meds ordered / Administered 3 Generic Name Dose Route Start Last Admin Trade Name Freq PRN Reason Stop Dose Admin Acetaminophen 650 mg 05/23/24 21:06 Acetaminophen 650 Mg/20 Ml Udc GT Q6H PRN PRN Pain 1-10 Or Fever>100.7 Albuterol/Ipratropium 3 ml 05/23/24 19:30 05/26/24 07:16 Ipratropium/Albuterol Sulfate 3 Ml Ampul.Neb INHALATION 3 ml Q6H.RT JUSTIN Administration Atorvastatin Calcium 10 mg 05/23/24 22:00 05/25/24 20:27 Atorvastatin Calcium 10 Mg Tablet GT 10 mg QHS JUSTIN Administration Budesonide 0.5 mg 05/26/24 10:00 Budesonide Respules 0.5 Mg/2 Ml Ampul.Neb. INHALATION Q12H.RT JUSTIN Chlorhexidine Gluconate 15 ml 05/24/24 10:00 05/26/24 07:40 Chlorhexidine 15 Ml PO 15 ml BID JUSTIN Administration Chlorhexidine Gluconate 1 each 05/25/24 10:00 05/26/24 06:26 Chlorhexidine Gluc 2% Cloth 1 Each Towelette TOPICAL 1 each DAILY JUSTIN Administration Cholecalciferol 50 mcg 05/23/24 22:00 05/25/24 20:27 Cholecalciferol (Vit D3) 25 Mcg Tablet (1,000 Units) GT 50 mcg QHS JUTSIN Administration Enoxaparin Sodium 40 mg 05/24/24 10:00 05/26/24 07:41 Enoxaparin 40 Mg/0.4 Ml Syringe SC 40 mg DAILY JUSTIN Administration Propofol 1,000 mg in 100 mls @ 13.44 mls/hr 05/23/24 11:35 05/26/24 10:34 Diprivan CONT INF 30 mcg/kg/min .Q7H27M JUSTIN 20.2 mls/hr Administration Protocol 20 MCG/KG/MIN Fentanyl 100 mls @ 5 mls/hr 05/23/24 12:00 05/26/24 09:00 CONT INF 100 mcg/hr UD JUSTIN 10 mls/hr Titration Protocol 50 MCG/HR Pantoprazole Sodium 40 mg/ 110 mls @ 330 mls/hr 05/23/24 22:00 05/26/24 08:38 Sodium Chloride IV Infused Q12 JUSTIN Infusion Piperacillin Sod/Tazobactam 50 mls @ 12.5 mls/hr 05/23/24 22:00 05/26/24 09:11 Sod 3.375 gm/ Sodium Chloride IV Infused Q8 JUSTIN Infusion Vancomycin IV-PHARMACY TO DOSE 500 mls @ 250 mls/hr 05/23/24 18:16 1 each/ Sodium Chloride IV X1 PRN Rx to Dose Protocol Sodium Chloride 100 mls @ 15 mls/hr 05/23/24 20:03 05/25/24 20:59 IV 0 mls/hr .Q6H40M PRN Infusion Saline Flush Sodium Chloride 100 mls @ 15 mls/hr 05/23/24 20:03 05/24/24 12:46 IV Infused .Q6H40M PRN Infusion Additional IVPB Infusion Enteral Nutritional Formula 1,000 mls @ 50 mls/hr 05/24/24 17:40 05/26/24 01:44 Vital Af 1.2 Colin Liquid GT 50 mls/hr .Q20H JUSTIN Administration Dexmedetomidine HCl 1,000 mcg/ 250 mls @ 14 mls/hr 05/24/24 23:45 05/26/24 07:50 Sodium Chloride CONT INF Not Given .[id number] JUSTIN Protocol 0.5 MCG/KG/HR Dextrose 1,000 mls @ 150 mls/hr 05/25/24 11:30 05/26/24 06:26 IV 05/26/24 22:00 0 mls/hr .Q6H40M JUSTIN Infusion Protocol Vancomycin HCl 1,000 mg in 200 mls @ 200 mls/hr 05/26/24 06:00 05/26/24 07:42 Vancomycin IV Infused Q12H JUSTIN Infusion Alamillo Carbonate 300 mg 05/25/24 22:00 05/25/24 20:27 Alamillo Carbonate 300mg Capsule GT 300 mg QHS JUSTIN Administration Methylprednisolone Sodium Succinate 40 mg 05/24/24 14:00 05/26/24 05:05 Methylprednisolone Sod Succ 40 Mg/Ml Vial IV 40 mg Q8 JUSTIN Administration Montelukast Sodium 10 mg 05/24/24 10:00 05/26/24 07:41 Montelukast 10 Mg Tablet GT 10 mg DAILY JUSTIN Administration Olanzapine 10 mg 05/24/24 10:00 05/26/24 07:41 Olanzapine 10 Mg Tablet GT 10 mg DAILY JUSTIN Administration Protocol Olanzapine 20 mg 05/23/24 22:00 05/25/24 20:27 Olanzapine 10 Mg Tablet GT 20 mg QHS JUSTIN Administration Ondansetron HCl 4 mg 05/23/24 18:16 Ondansetron 4 Mg/2 Ml Vial IV Q8H PRN PRN NAUSEA/VOMITING Sodium Chloride 10 - 40 ml 05/23/24 17:52 05/25/24 20:28 0.9% Saline Lock 10 Ml Syringe IV 20 ml UD PRN Administration SALINE FLUSH Sodium Chloride 10 - 40 ml 05/23/24 20:03 0.9% Saline Lock 10 Ml Syringe IV UD PRN SALINE FLUSH Vancomycin Protocol 1 lab 05/27/24 16:30 Vancomycin Trough/Random Due 05/27/24 18:30 DAILY [facility] Lab / Micro Data 05/26/24 03:30 05/26/24 03:30 Labs: Laboratory Results - last 24 hr 05/25/24 13:30: Urine Color Yellow, Urine Clarity Clear, Urine pH 7.0, Ur Specific [place] 1.005, Urine Protein 30 H, Urine Glucose (UA) Normal, Urine Ketones Negative, Urine Occult Blood 25 H, Urine Nitrite Negative, Urine Bilirubin Negative, Urine Urobilinogen Normal, Ur Leukocyte Esterase 25 H, Urine RBC 0 SEEN, Urine WBC 0 SEEN, Ur Squamous Epith Cells 0 SEEN, Urine Bacteria 0 SEEN, Urine Mucus 0 SEEN, Urine Osmolality 281, U Random Total Protein 17.3 H, Ur Random Sodium 43, Urine Creatinine 49.80, Protein/Creatinin Ratio 347 H, Urine Potassium 15.3, Urine Chloride < 20 05/25/24 17:00: Sodium 152 H, Potassium 4.2, Chloride 119 H, Carbon Dioxide 26.0, Anion Gap 6, BUN 30 H, Creatinine 1.48 H, Estim Creat Clear Calc 62.34, E st GFR (MDRD) Non-Af 53 L, BUN/Creatinine Ratio 20.1 H, Glucose 139 H, Calcium 8.5 05/26/24 03:30: WBC 7.8, RBC 3.79 L, Hgb 12.5 L, Hct 41.8, MCV 110.3 H, MCH 33.0 H, MCHC 29.9 L, RDW Std Deviation 74.5 H, RDW Coeff of Babatunde 18.4 H, Plt Count 139 L, MPV 10.4, Immature Gran % (Auto) 0.600, Neut % (Auto) 92.4 H, Lymph % (Auto) 3.8 L, [place] % (Auto) 3.1, Eos % (Auto) 0.0, Baso % (Auto) 0.1, Absolute Neuts (auto) 7.2, Absolute Lymphs (auto) 0.30 L, Nucleated RBC % 0, Differential Comment SCANNED, Anisocytosis 2+, Macrocytosis 2+, Sodium 150 H, Potassium 4.4, Chloride 118 H, Carbon Dioxide 24.6, Anion Gap 7, BUN 33 H, Creatinine 1.53 H, Estim Creat Clear Calc 60.78, Est GFR (MDRD) Non-Af 51 L, BUN/Creatinine Ratio 21.8 H, Glucose 165 H, Calcium 8.4, Total Bilirubin 0.47, AST 32, ALT 21, Alkaline Phosphatase 103, Total Protein 6.6, Albumin 3.0 L, Globulin 3.6, A lbumin/Globulin Ratio 0.8 L, Random Vancomycin 13.8 Micro: Microbiology 05/23/24 11:00 Blood Culture (Wb) - Right Hand Blood Culture - Preliminary No growth in 48 hours. 05/23/24 11:00 Blood Culture (Wb) - Anticubital Right Blood Culture - Preliminary 05/23/24 12:20 Sputum, Induced/Lukens Gram Stain - Final 05/23/24 12:20 Sputum, Induced/Lukens Respiratory Culture - Final Presumptive C albicans ABG Data ABG results: ABG 05/25/24 05/26/24 13:00 04:46 Specimen Type ART ART Sample Site L Brach L Radial pH 7.38 7.35 Bicarbonate Actual 27.5 H 26.7 H Total CO2 29 28 Base Excess 2 1 O2 Saturation 91 L 92 L O2 % 35.0 35.0 ABG pCO2 46.6 H 48.6 H ABG pO2 62 L 67 L Oj Test N/A Respiration Rate 20 20 O2 Delivery Device Adult Vent Adult Vent Vent Mode AC AC Tidal Volume 450.0 450.0 POC PEEP 5 5 Rhythm Strip Rhythm Strip: Sinus Rhythm Rate: 95 Ectopy: None Assessment and Plan . Assessment and plan: Pt seen and examined. Chart and data reviewed. Currently sedated w/ propofol and fentanyl. We performed SAT - severe agitation, HTN, increased RR. He had an upward gaze and was not interactive or cooperative to any extent. Ongoing mild renal insufficiency and hypernatremia. MV reviewed - very modest requirement. PE: General: morbidly obese acute on chronically ill appearing male; +MV HEENT: anicteric Sclera; + ETT, nl nose; supple neck, no masses Cardiovascular: Regular Rate and Rhythm; No murmurs, rubs, gallops; no displaced PMI Respiratory: diminished; no crackles, wheezes, or rhonchi Abdominal: Non-tender; Non distended; hypoBS x 4; No Hepatosplenomegaly Extremities: Warm, extensive LE wounds to feet/toes and chronic venous stasis dermatitis; No clubbing, cyanosis; capillary refill < 2 sec Neurological: sedated and responsive but easily agitated A/P: #Acute hypoxemic respiratory failure: intubated primarily for airway protection; cont MV; settings reviewed/adjusted; SAT/SBT as tolerated but limited due to mentation/agitation #Acute toxic metabolic encephalopathy: CT head no acute abnormalities; UDS/UTox neg; continuing home lithium and olanzapine via NGT; add scheduled seroquel #COPD exacerbation: cont nebs + quickly wean steroids off #B/L LE wounds (extensive to feet) & venous stasis dermatitis with ?cellulitis: cont on emp vanc/Zosyn without any strong suspicion of infection, nasal MRSA positive --> de-esc Abx if Cx neg x48h and if no active infection identified; cont wound care #NILESH vs CKD: nonoliguric; cont monitor #Hypernatremia: increase D5W - 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
[2024-05-26] MEDS: QUEtiapine 25 MG Tablet 50 MG NG ×2 (14:24→21:18)
--- NOTE | 2024-05-26 15:16 | CON.PCM.ID_ITS ---
Assessment & Plan Assessment/Plan (1) Acute respiratory failure with hypoxia and hypercapnia: PLAN: 1 of 2 bcx with GPR, so far consistent with contaminated sample. Ucx with less than 1k GNR. Some low grade temps here. Will narrow to vanc/unasyn for now. Will follow, thank you HPI Consult Data Date of Consult: 05/26/24 HPI Narrative Reason for Consultation: bacteremia HPI Narrative: FLORY ARIZA, is a 64 M with h/o COPD, schizophrenia, taken to ED 05/23 from [facility] with acute onset altered mental status, hypoxia. Intubated in ED, admitted to icu on vanc and zosyn. Remains on vent. No fever overnight. ROS unobtainable due to mental status. [facility], LAT[facility] Medical History Hypercarbia Aspiration pneumonia Hypoxemia GERD (gastroesophageal reflux disease) Sepsis Tobacco abuse Schizophrenia COPD exacerbation Bipolar disorder Home Medications ?Medication ?Instructions ?Recorded ?Last Taken ?Type olanzapine 10 mg tablet 10 mg PO DAILY 02/18/15 Unkn own History omeprazole 20 mg capsule,delayed 20 mg PO BID 02/18/15 Unknown History release spironolactone 25 mg tablet 25 mg PO DAILY 02/18/15 Un known History fluphenazine decanoate 25 mg/mL 25 mg IM Q14D PARANOID 07/29/16 Unknown History injection solution SCHIZOPHRENIA montelukast 10 mg tablet 10 mg PO DAILY 05/02/18 Unkn own History olanzapine 20 mg tablet (Zyprexa) 20 mg PO QHS 9 Unknown History omega-3 fatty acids-fish oil 300 2 capsule PO BID defi ciency 05/02/18 10/29/23 History mg-1,000 mg capsule simvastatin 20 mg tablet (Zocor) 20 mg PO QHS 05/02/18 Unknown History amlodipine 5 mg tablet 5 mg PO DAILY bp 03/22/23 Un known History ammonium lactate 12 % topical cream 1 applic topical B ID skin 10/30/23 10/29/23 History irritation multivitamin (Daily Multi-Vitamin 1 tab PO DAILY repla cement 12/09/23 Unknown History tablet) acetaminophen 325 mg tablet 650 mg PO Q4H PRN fever or pain 05/23/24 Unknown History acetaminophen 650 mg rectal 650 mg DC Q4H PRN pain Unknown History suppository aluminum-mag hydroxide-simethicone 30 ml PO Q4H PRN in digestion 05/23/24 Unknown History 400 mg-400 mg-40 mg/5 mL oral susp (Mintox Maximum Strength) amoxicillin 875 mg-potassium 1 tab PO Q12H 05/23/24 Un known History clavulanate 125 mg tablet bisacodyl 10 mg rectal suppository 10 mg DC DAILY PRN CONSTIPATION 05/23/24 Unknown History cholecalciferol (vitamin D3) 50 50 mcg PO QHS SUPPLEME NT 05/23/24 Unknown History mcg (2,000 unit) tablet (D3 DOTS) lithium carbonate 600 mg capsule 600 mg PO QHS BIPOLAR 05/23/24 Unknown History magnesium hydroxide 400 mg/5 mL 30 ml PO DAILY PRN con stipation 05/23/24 Unknown History oral suspension (Dulcolax (magnesium hydroxide)) melatonin 5 mg tablet 5 mg PO QHS 05/23/24 Unknown History menthol 10 % topical cream 1 applic topical Q12H PRN p ain 05/23/24 Unknown History (Biofreeze (menthol)) sodium phosphates 19 gram-7 118 ml DC BID PRN constipa tion 05/23/24 Unknown History gram/118 mL enema (Fleet Enema) trazodone 50 mg tablet 50 mg PO QHS sleep 05/23/24 Unknown History Allergy/AdvReac Type Severity Reaction Status Date / Time codeine AdvReac Upset Verified 12/08/23 16:08 Stomach haloperidol (From Haldol) AdvReac Abd Verified 12/08/23 16:08 cramps/diarrhea haloperidol lactate (From AdvReac Abd Verified 12/08/23 16:08 Haldol) cramps/diarrhea ziprasidone AdvReac Unknown Verified 12/08/23 16:08 Family History Mother Diabetes Surgical History S/P right knee arthroscopy S/P laparoscopic cholecystectomy History of esophagogastroduodenoscopy (EGD) S/P bilateral inguinal hernia repair Social History Smoking Status: Current every day smoker tobacco type: cigarettes Physical Exam Const no apparent distress HEENT normocephalic and head/scalp atraumatic Eyes PERRL Neck supple and No nodes Resp normal air movement and clear to auscultation bilaterally Effort and Inspection: mechanically ventilated Cardio regular rate and regular rhythm GI soft to palpation, non-tender and non-distended Extremity General Extremity: edema Skin Skin Narrative: Mild redness BLE Neuro no focal motor deficits Lab / Micro Data Attestation: I reviewed the patient's lab results. 05/26/24 03:30 05/26/24 03:30 Labs: Laboratory Results - last 24 hr 05/25/24 13:30: Urine Osmolality 281, U Random Total Protein 17.3 H, Ur Random Sodium 43, Urine Creatinine 49.80, Protein/Creatinin Ratio 347 H, Urine Potassium 15.3, Urine Chloride < 20 05/25/24 17:00: Sodium 152 H, Potassium 4.2, Chloride 119 H, Carbon Dioxide 26.0, Anion Gap 6, BUN 30 H, Creatinine 1.48 H, Estim Creat Clear Calc 62.34, E st GFR (MDRD) Non-Af 53 L, BUN/Creatinine Ratio 20.1 H, Glucose 139 H, Calcium 8.5 05/26/24 03:30: WBC 7.8, RBC 3.79 L, Hgb 12.5 L, Hct 41.8, MCV 110.3 H, MCH 33.0 H, MCHC 29.9 L, RDW Std Deviation 74.5 H, RDW Coeff of Babatunde 18.4 H, Plt Count 139 L, MPV 10.4, Immature Gran % (Auto) 0.600, Neut % (Auto) 92.4 H, Lymph % (Auto) 3.8 L, [place] % (Auto) 3.1, Eos % (Auto) 0.0, Baso % (Auto) 0.1, Absolute Neuts (auto) 7.2, Absolute Lymphs (auto) 0.30 L, Nucleated RBC % 0, Differential Comment SCANNED, Anisocytosis 2+, Macrocytosis 2+, Sodium 150 H, Potassium 4.4, Chloride 118 H, Carbon Dioxide 24.6, Anion Gap 7, BUN 33 H, Creatinine 1.53 H, Estim Creat Clear Calc 60.78, Est GFR (MDRD) Non-Af 51 L, BUN/Creatinine Ratio 21.8 H, Glucose 165 H, Calcium 8.4, Total Bilirubin 0.47, AST 32, ALT 21, Alkaline Phosphatase 103, Total Protein 6.6, Albumin 3.0 L, Globulin 3.6, A lbumin/Globulin Ratio 0.8 L, Random Vancomycin 13.8 Micro: Microbiology 05/23/24 11:00 Blood Culture (Wb) - Right Hand Blood Culture - Preliminary No growth in 48 hours. ABG Data ABG results: ABG 05/26/24 04:46 Specimen Type ART Sample Site L Radial pH 7.35 Bicarbonate Actual 26.7 H Total CO2 28 Base Excess 1 O2 Saturation 92 L O2 % 35.0 ABG pCO2 48.6 H ABG pO2 67 L Oj Test N/A Respiration Rate 20 O2 Delivery Device Adult Vent Vent Mode AC Tidal Volume 450.0 POC PEEP 5 Rhythm Strip Rhythm Strip: Sinus Rhythm Rate: 95 Ectopy: None
--- NOTE | 2024-05-26 15:23 | NEURO.PNOTE ---
Assessment and Plan: Neuro Assessment/Plan 64 yo man with COPD, extensive psych history including schizophrenia, dysphagia and debility, presented 05/23 from assisted living with altered mental status in the setting of COPD exacerbation, Hypoxia and SpO2 60s%, PH 7.27 with hypercarbia, NILESH (cr 1.48) on CKD, was placed on BiPAP and remained unable to protect airways requiring intubation. He has been very agitated,? did not tolerate precedex due to bradycardia and on-going agitation, on Propofol. CTH with on acute findings, Utox negative. On home lithium and olanzapine. EEG with no fidnigns to suggest seizures or epileptic activity. Na 131 to 152 in 48 hrs UA growing gram negative rods. ID following, concern for contaminant, but on Abx for now Likely toxic metabolic with medication effect, ?underlying infection. Continue to wean as tolerated [ ] Obtain MRI brain to rule out acute pathology We will follow I personally attended this patient and spent a total time of 40 minutes evaluating this patient including clinical assessment, review of chart, medical history imaging, and determining appropriate treatment and workup. Subject: Neurology Subjective Per nurse, stopped sedation this morning, and within few minutes he attmepted to sit up in bed, remain on Prop and Fent EEG Results Procedure Details EEG Procedure Details: Procedure Orders GENERAL PROCEDURE [[id number]] ordered by Glendy Tomlin MD at 05/26/24 1520 Summary: EEG Report Inpatient routine EEG report performed at [facility] Study start time: 0941 am on 05/26/24 End Time: 1002 am on 05/26/24 History: Rule out seizures Indication: Rule out seizures Technical Description: This is a 18-channel digital EEG recording with time-locked video and single-channel electrocardiogram. Electrodes are placed according to the 10 to 20 International System. The patient was monitored continuously by EEG technicians and EEG recording was reviewed intermittently with annotations to the EEG record. Portions of this record are reviewed using bandpass filters of 1 to 70 Hz and sensitivity of 7mV/mm. EEG DESCRIPTION Background: This recording was obtained during sleep like state while patient is on Propofol. There was generalized continuous slowing of delta activity intermixed with theta frequencies. Triphasic waves were seen infrequently. No posterior dominant rhythm was seen. Activation Procedures: Photic stimulation was performed. No abnormal or epileptic activity was triggered by this procedure. Sporadic Epileptiform Discharges: none Focal slow activity: none Rhythmic or Periodic activity: none Seizures: none Patient Events: none EEG DIAGNOSIS: CLINICAL INTERPRETATION This abnormal EEG is consistent with severe diffuse encephalopathy. No epileptiform discharges or lateralizing signs were seen. Omid Tomlin MD Objective Data Objective Data Vital Signs: Vital Signs Temp Pulse Resp BP Pulse Ox O2 Del Method O2 Flow Rate 99.4 F H 57 L 20 H 106/52 L 96 Mechanical Ventilator 35 05/26/24 15:00 05/26/24 15:00 05/26/24 15:00 05/26/24 15:00 05/26/24 15:00 05/26/24 15:00 05/25/24 15:30 FiO2 30 05/26/24 15:00 Oxygen Flow Rate (L/min) 35 Oxygen Delivery Method Mechanical Ventilator Weight: 112 kg Body Mass Index (BMI) 37.4 Intake & Output: Intake and Output for Last 24 Hours 05/24/24 05/25/24 05/26/24 23:59 23:59 23:59 Intake Total 1877.51 / 1976.06 2798.07 / 3126.57 3802.36 / 3802.36 Output Total 3800 / 4650 2550 / 3300 2525 / 2525 Balance -1922.49 / -2673.94 248.07 / -173.43 1277.36 / 1277.36 Lab / Micro Data 05/26/24 03:30 05/26/24 03:30 Labs: Laboratory Results - last 24 hr 05/25/24 13:30: Urine Osmolality 281, U Random Total Protein 17.3 H, Ur Random Sodium 43, Urine Creatinine 49.80, Protein/Creatinin Ratio 347 H, Urine Potassium 15.3, Urine Chloride < 20 05/25/24 17:00: Sodium 152 H, Potassium 4.2, Chloride 119 H, Carbon Dioxide 26.0, Anion Gap 6, BUN 30 H, Creatinine 1.48 H, Estim Creat Clear Calc 62.34, Est GFR (MDRD) Non-Af 53 L, BUN/Creatinine Ratio 20.1 H, Glucose 139 H, Calcium 8.5 05/26/24 03:30: WBC 7.8, RBC 3.79 L, Hgb 12.5 L, Hct 41.8, MCV 110.3 H, MCH 33.0 H, MCHC 29.9 L, RDW Std Deviation 74.5 H, RDW Coeff of Babatunde 18.4 H, Plt Count 139 L, MPV 10.4, Immature Gran % (Auto) 0.600, Neut % (Auto) 92.4 H, Lymph % (Auto) 3.8 L, [place] % (Auto) 3.1, Eos % (Auto) 0.0, Baso % (Auto) 0.1, Absolute Neuts (auto) 7.2, Absolute Lymphs (auto) 0.30 L, Nucleated RBC % 0, Differential Comment SCANNED, Anisocytosis 2+, Macrocytosis 2+, Sodium 150 H, Potassium 4.4, Chloride 118 H, Carbon Dioxide 24.6, Anion Gap 7, BUN 33 H, Creatinine 1.53 H, Estim Creat Clear Calc 60.78, Est GFR (MDRD) Non-Af 51 L, BUN/Creatinine Ratio 21.8 H, Glucose 165 H, Calcium 8.4, Total Bilirubin 0.47, AST 32, ALT 21, Alkaline Phosphatase 103, Total Protein 6.6, Albumin 3.0 L, Globulin 3.6, Albumin/Globulin Ratio 0.8 L, Random Vancomycin 13.8 Micro: Microbiology 05/23/24 11:00 Blood Culture (Wb) - Right Hand Blood Culture - Preliminary No growth in 48 hours. 05/23/24 11:00 Blood Culture (Wb) - Anticubital Right Blood Culture - Preliminary 05/23/24 12:20 Sputum, Induced/Lukens Gram Stain - Final 05/23/24 12:20 Sputum, Induced/Lukens Respiratory Culture - Final Presumptive C albicans 05/23/24 11:20 Urine, Clean Catch Urine Culture - Final Gram negative behzad 05/23/24 11:20 Mucosa - Nose SARS-CoV-2, Influenza & RSV (PCR) - Final ABG Data ABG results: ABG 05/26/24 04:46 Specimen Type ART Sample Site L Radial pH 7.35 Bicarbonate Actual 26.7 H Total CO2 28 Base Excess 1 O2 Saturation 92 L O2 % 35.0 ABG pCO2 48.6 H ABG pO2 67 L Oj Test N/A Respiration Rate 20 O2 Delivery Device Adult Vent Vent Mode AC Tidal Volume 450.0 POC PEEP 5 Rhythm Strip Rhythm Strip: Sinus Rhythm Rate: 95 Ectopy: None Physical Exam Narrative Sedated on Prop. Intubated.
--- NOTE | 2024-05-26 16:46 | NURSING ---
called Mother, Karely regarding answering MRI questions, she refused and stated I have early onset of dementia and won't know the answers to the questions. Mother gave patient's son, Lyle and [id number], Elma's phone numbers.
[2024-05-26] MEDS: Furosemide 40 MG/4 ML Vial IV (17:48)
[2024-05-26] MEDS: Dextrose 5%-Water (1000mL Bag) 1,000 ML 150 ML IV (17:48)
[2024-05-26] MEDS: Polyethylene Glycol 3350 17 GM PACKET PO (21:17)
[2024-05-26] MEDS: Senna/Docusate Sodium 1 Tablet 2 TABLET PO (21:17)
[2024-05-26] MEDS: OLANZapine 10 MG Tablet 20 MG GT (21:17)
[2024-05-26] MEDS: Atorvastatin Calcium 10 MG Tablet GT (21:17)
[2024-05-26] MEDS: Cholecalciferol (VIT D3) 25 MCG TABLET (1,000 UNITS) 50 MCG GT (21:17)
[2024-05-26] MEDS: Ampicillin/Sulbactam 3 GM in 0.9% Normal Saline (100mL MB+) 100 ML IV (21:17)
[2024-05-27] VITALS (35 sets, daily range): BP systolic 93–128; BP diastolic 48–68; PULSE 41–86; RESP 20–21; TEMP 36.3–38; O2SAT 90–100; BMI 37.5
[2024-05-27] MEDS: Ipratropium/Albuterol Sulfate 3 ML AMPUL.NEB INHALATION ×4 (00:19→18:58)
[2024-05-27] MEDS: fentaNYL drip 100 ML 10 MCG CONT INF ×3 (02:05→23:51)
[2024-05-27] MEDS: Propofol 10MG/Ml 1,000 MG/100 ML Bottle 13.4 MG CONT INF ×4 (02:10→23:31)
[2024-05-27] MEDS: 0.9% Saline Lock 10 ML Syringe IV ×2 (05:32→22:54)
[2024-05-27 05:33] LABS: Allen Test Positive; Base Excess 5 mmol/L (-2 to +2); Bicarbonate 29.5 mmol/L (22-26); Blood Gas Specimen Type ART; Mode AC; O2 Delivery Device ET Tube; PEEP 5; PO2 64 mmHG (75-100); RR 20; SITE R Radial; SO2 91 % (95-99); Total Carbon Dioxide 31 mmol/L; pCO2 48.5 mmHg (35-45); pH 7.39 (7.35-7.45)
[2024-05-27] MEDS: QUEtiapine 25 MG Tablet 50 MG NG ×3 (05:33→22:51)
[2024-05-27] MEDS: Ampicillin/Sulbactam 3 GM in 0.9% Normal Saline (100mL MB+) 100 ML IV ×3 (05:33→22:52)
[2024-05-27 05:50] LABS: Absolute Lymphocyte Count 0.96 X10^3/uL (0.83-4.51); Absolute Neutrophil Count 6.6 X10^3/uL (2.0-7.7); Basophil# 0.01 X10^3/uL; Basophil% 0.1 % (0-1); Eosinophil# 0.03 X10^3/uL; Eosinophils% 0.4 % (0-5); Hematocrit 43.4 % (40-54); Hemoglobin 13.1 g/dL (13.0-16.5); Lymphocyte # 0.96 X10^3/ul (0.83-4.51); Lymphocyte % 11.8 % (19-41); Mean Corp Hgb Conc 30.2 g/dL (32-36); Mean Corpuscular Volume 109.3 fL (80-94); Mean Platelet Vol. 10.1 fl (6.2-12.0); Monocyte# 0.52 X10^3/uL; Monocyte% 6.4 % (0-10); NRBC Flagged by Analyzer 0.2 % (0-5); Neutrophil # 6.61 X10^3/uL (2.7-7.7); Neutrophil % 80.8 % (47-70); POSITIVE MORPHOLOGY YES; Platelet Count 128 K/mm3 (150-450); RBC Distribution Width CV 18.2 % (11.6-14.6); Red Blood Count 3.97 M/mm3 (4.6-6.2); White Blood Count 8.2 K/mm3 (4.4-11.0)
[2024-05-27 05:59] LABS: ALB/GLOB Ratio 0.9 RATIO (0.9-2.4); AST(SGOT) 36 U/L (<=37); Alanine Aminotransfer ALT/SGPT 29 U/L (<=46); Albumin, Serum 3.1 g/dL (3.4-4.8); Alkaline Phosphatase 106 U/L (40-129); Anion Gap 7 (5-15); BUN 38 mg/dL (4-19); BUN/Creat Ratio 24.5 RATIO (10-20); Calcium,Total 8.5 mg/dL (7.6-11.0); Chloride 118 mmol/L (98-108); Creatinine, Serum 1.53 mg/dL (0.70-1.20); EST Glomerular Filtration Rate 51 (>60); Estimated Creatinine Clearance 60.78 ml/min (50-250); Globulin 3.6 g/dL (2.2-4.2); Glucose 105 mg/dL (70-99); Potassium 4.5 mmol/L (3.3-5.1); Protein, Total 6.7 g/dL (5.9-8.4); Sodium Level 151 mmol/L (133-145); Total Bilirubin 0.52 mg/dL (0.00-1.30)
[2024-05-27] MEDS: Vancomycin IV 1,000 MG/200 ML BAG 200 MG IV (06:20)
[2024-05-27 06:52] LABS: Differential Indicated SCAN CRITERIA MET
--- NOTE | 2024-05-27 06:56 | PN.HOSP_ITS ---
Reason for Visit Reason for Visit: Diagnoses Hyperosmolality and hypernatremia (05/23/24) Metabolic encephalopathy (05/23/24) Unspecified diastolic (congestive) heart failure (05/23/24) Venous insufficiency (chronic) (peripheral) (05/23/24) Chronic obstructive pulmonary disease with (acute) exacerbation (05/23/24) Acute respiratory failure with hypoxia (05/23/24) Acute respiratory failure with hypercapnia (05/23/24) Subjective Subjective Had odd episodes last night concerning for seizure. Again, would look up, but eyes would respond to threat. Objective Data Objective Data Vital Signs: Vital Signs Temp Pulse Resp BP Pulse Ox O2 Del Method O2 Flow Rate 36.6 C 49 L 20 H 94/50 L 98 Mechanical Ventilator 35 05/27/24 04:00 05/27/24 06:00 05/27/24 06:00 05/27/24 06:00 05/27/24 06:00 05/27/24 06:00 05/25/24 15:30 FiO2 30 05/27/24 06:00 Oxygen Flow Rate (L/min) 35 Oxygen Delivery Method Mechanical Ventilator Weight: 112 kg Body Mass Index (BMI) 37.4 Intake & Output: Intake and Output for Last 24 Hours 05/25/24 05/26/24 05/27/24 23:59 23:59 23:59 Intake Total 2798.07 / 3126.57 7425.19 / 7739.39 1866.44 / 1866.44 Output Total 2550 / 3300 6725 / 6725 900 / 900 Balance 248.07 / -173.43 700.19 / 1014.39 966.44 / 966.44 Lab / Micro Data 05/27/24 05:30 05/27/24 05:30 Labs: Laboratory Results - last 24 hr 05/27/24 05:30: WBC 8.2, RBC 3.97 L, Hgb 13.1, Hct 43.4, MCV 109.3 H, MCH 33.0 H , MCHC 30.2 L, RDW Std Deviation 74.0 H, RDW Coeff of Babatunde 18.2 H, Plt Count 128 L, MPV 10.1, Immature Gran % (Auto) 0.500, Neut % (Auto) 80.8 H, Lymph % (Auto) 11.8 L, [place] % (Auto) 6.4, Eos % (Auto) 0.4, Baso % (Auto) 0.1, Absolute Neuts (auto) 6.6, Absolute Lymphs (auto) 0.96, Nucleated RBC % 0.2, Sodium 151 H, Potassium 4.5, Chloride 118 H, Carbon Dioxide 26.0, Anion Gap 7, BUN 38 H, C reatinine 1.53 H, Estim Creat Clear Calc 60.78, Est GFR (MDRD) Non-Af 51 L, B UN/Creatinine Ratio 24.5 H, Glucose 105 H, Calcium 8.5, Total Bilirubin 0.52, AST 36, ALT 29, Alkaline Phosphatase 106, Total Protein 6.7, Albumin 3.1 L, Globulin 3.6, Albumin/Globulin Ratio 0.9 Micro: Microbiology 05/23/24 11:00 Blood Culture (Wb) - Right Hand Blood Culture - Preliminary No growth in 48 hours. 05/23/24 11:00 Blood Culture (Wb) - Anticubital Right Blood Culture - Preliminary 05/23/24 12:20 Sputum, Induced/Lukens Gram Stain - Final 05/23/24 12:20 Sputum, Induced/Lukens Respiratory Culture - Final Presumptive C albicans 05/23/24 11:20 Urine, Clean Catch Urine Culture - Final Gram negative behzad 05/23/24 11:20 Mucosa - Nose SARS-CoV-2, Influenza & RSV (PCR) - Final ABG Data ABG results: ABG 05/27/24 05:30 Specimen Type ART Sample Site R Radial pH 7.39 Bicarbonate Actual 29.5 H Total CO2 31 Base Excess 5 H O2 Saturation 91 L O2 % 30.0 ABG pCO2 48.5 H ABG pO2 64 L Oj Test Positive Respiration Rate 20 O2 Delivery Device ET Tube Vent Mode AC Tidal Volume 450.0 POC PEEP 5 Rhythm Strip Rhythm Strip: Sinus Rhythm Rate: 95 Ectopy: None Physical Exam Const Constitutional Narrative: intubated sedated. Opens eyes to voice and looked directly at me then began looking up, but could not be adjust back to me. Did blink to threat bilaterally. No icterus. Resp normal respiratory effort, no retractions, no use of accessory muscles and clear to auscultation bilaterally Resp Narrative: coarse BS bilaterally. Cardio regular rate, regular rhythm, S1 normal heart sound and S2 normal heart sound GI normal to inspection, nondistended, normoactive bowel sounds, soft to palpation, non-tender and non-distended Skin Skin Narrative: venous stasis changes to bilateral LE. Neuro Neuro Narrative: 10-beat clonus on right, 7-beat clonus on left. Assessment & Plan Assessment/Plan (1) Acute respiratory failure with hypoxia and hypercapnia: PLAN: Intubated. 2/2 COPD exacerbation + CHF Wean ventilator as able. Pip/tazo and vancomycin (2) COPD with acute exacerbation: PLAN: BDs and methylprednisolone (3) Metabolic encephalopathy: PLAN: Toxic metabolic encephalopathy 2/2 CO2 narcosis plus underlying psychiatric history. Plus, psychiatric medications. [place] level WNL on admission. Given concern for DI, it has been discontinued. Will dc olanzapine, though it is unclear if he is actually experiencing extrapyramidal symptoms, somnolence from it; until further clarification of his mental status changes, will discontinue for now. EEG showed severe diffuse encephalopathy. No epileptiform discharges. Pt had sedation holiday on 05/27 and was very agitated and eyes deviated to left. MRI brain ordered. Await further neurology input. Unclear if he needs 24-hr EEG. (4) Hypernatremia: PLAN: ongoing. concern for DI. on D5W with free water flushes via PEG. Check urine osm may need desmopressin. DW nephrology, will DC furosemide. (5) (HFpEF) heart failure with preserved ejection fraction: PLAN: acute. Likely due to IVF for hypernatremia. started furosemide 05/26, discontinued 05/27. PLAN: Plan Chronic conditions: * Venous stasis dermatitis * schizophrenia * obesity class I VTE prophylaxis: enoxaparin. Charges/Coding Visit Charges Inpatient E&M: 44871 Subs Hosp L3
[2024-05-27] MEDS: Budesonide Respules 0.5 MG/2 ML AMPUL.NEB. INHALATION ×2 (07:00→18:59)
[2024-05-27] MEDS: CHLORHEXIDINE GLUC 2% CLOTH 1 EACH TOWELETTE TOPICAL (07:37)
[2024-05-27] MEDS: Chlorhexidine 15 ML PO ×2 (07:37→22:53)
[2024-05-27] MEDS: Pantoprazole Sodium 40 MG in 0.9% Normal Saline (100mL MB+) 100 ML 330 MG IV ×2 (07:38→22:27)
[2024-05-27] MEDS: Enoxaparin 40 MG/0.4 ML Syringe SC (07:38)
[2024-05-27] MEDS: Polyethylene Glycol 3350 17 GM PACKET PO (07:38)
[2024-05-27] MEDS: Senna/Docusate Sodium 1 Tablet 2 TABLET PO ×2 (07:38→22:49)
[2024-05-27] MEDS: OLANZapine 10 MG Tablet GT (07:39)
[2024-05-27] MEDS: Montelukast 10 MG Tablet GT (07:39)
[2024-05-27] MEDS: Methylprednisolone Sod Succ 40 MG/ML VIAL IV (07:39)
[2024-05-27 08:48] LABS: Osmolality, Urine 173 mOsm/KG
--- NOTE | 2024-05-27 09:00 | MRI_ITS ---
PROCEDURE: BRAIN WITHOUT CONTRAST 05/27/2024 REASON FOR EXAM: ENCEPHALOPATHY TECHNIQUE: Noncontrast brain MRI. COMPARISON: 05/23/2024 FINDINGS: No evidence of acute ischemia or mass lesion.No intracranial hemorrhage. There are mild patchy areas of deep white matter T2/FLAIR hyperintensity, greatest in the posterior periventricular region of the parietal lobes. There is no corresponding restricted diffusion. The ventricles and sulci are normal in appearance.No extra-axial collection or midline shift. The posterior fossa structures are within normal limits. The orbits are unremarkable. There is mild mucosal thickening of the left maxillary sinus with a small mucous retention cyst present. An endotracheal tube is partially visualized in the oropharynx. The calvarium and soft tissues are unremarkable. MRI/Brain without Contrast IMPRESSION: 1. No acute abnormality. 2. Mild patchy deep white matter signal alterations, which is most commonly see n with chronic ischemic microangiopathy. Reading Location: [facility]
--- NOTE | 2024-05-27 09:01 | NURSING ---
patient off floor at this time with respiratory therapist and Sailaja, feather shaper for MRI
[2024-05-27] MEDS: Midazolam 2 MG/2 ML Syringe 5 MG IV (09:30)
--- NOTE | 2024-05-27 10:21 | CASEMGMT ---
Social Work- SW received a call from Kayleigh [facility] transitional nurse, contact #: [phone]. Kayleigh called for an update on pt status. Kayleigh reports that pt has home-delivered meals, medical alert, and services from [facility] and [facility] CM. Kayleigh would like updates at transfer/discharge. CLARIBEL Pena
--- NOTE | 2024-05-27 11:08 | PN.CC_ITS ---
Objective Data Objective Data Vital Signs: Vital Signs Last response 3 Temperature 36.6 C 05/27/24 08:00 Temperature Source Temporal 05/27/24 08:00 Pulse Rate 59 L 05/27/24 10:26 Pulse Strength Weak (1+) 05/27/24 07:33 Respiratory Rate 20 H 05/27/24 10:26 Respiratory Effort Mechanically Ventilated 05/27/24 08:00 Respiratory Depth Normal 05/27/24 08:00 Respiratory Pattern Normal 05/27/24 08:00 Blood Pressure 128/68 H 05/27/24 09:50 Blood Pressure Mean 88 05/27/24 09:50 Blood Pressure Source Monitor 05/27/24 09:50 Blood Pressure Position Supine 05/27/24 09:50 Blood Pressure Location Left Arm 05/27/24 09:50 Pulse Ox 97 05/27/24 10:26 Oxygen Delivery Method Mechanical Ventilator 05/27/24 09:50 Oxygen Flow Rate (L/min) 35 05/25/24 15:30 Fraction of Inspired Oxygen (FIO2) 30 05/27/24 10:26 I&O: I&O Last 24 Hours 3 05/26/24 05/26/24 05/27/24 11:59 23:59 11:59 Intake Total 3208.79 / 7739.39 4216.40 / 7739.39 2546.64 / 2546.64 Output Total 2275 / 6725 4450 / 6725 2350 / 2350 Balance 933.79 / 1014.39 -233.60 / 1014.39 196.64 / 196.64 I&O: Total Stay 3 05/23/24 10:37 thru 05/27/24 10:51 Intake Total 75513.47 Output Total 06325 Balance -834.53 Current Meds Ordered / Administered: Current meds ordered / Administered 3 Generic Name Dose Route Start Last Admin Trade Name Freq PRN Reason Stop Dose Admin Acetaminophen 650 mg 05/23/24 21:06 Acetaminophen 650 Mg/20 Ml Udc GT Q6H PRN PRN Pain 1-10 Or Fever>100.7 Albuterol/Ipratropium 3 ml 05/23/24 19:30 05/27/24 07:00 Ipratropium/Albuterol Sulfate 3 Ml Ampul.Neb INHALATION 3 ml Q6H.RT JUSTIN Administration Atorvastatin Calcium 10 mg 05/23/24 22:00 05/26/24 21:17 Atorvastatin Calcium 10 Mg Tablet GT 10 mg QHS JUSTIN Administration Budesonide 0.5 mg 05/26/24 10:00 05/27/24 07:00 Budesonide Respules 0.5 Mg/2 Ml Ampul.Neb. INHALATION 0.5 mg Q12H.RT JUSTIN Administration Chlorhexidine Gluconate 15 ml 05/24/24 10:00 05/27/24 07:37 Chlorhexidine 15 Ml PO 15 ml BID JUSTIN Administration Chlorhexidine Gluconate 1 each 05/25/24 10:00 05/27/24 07:37 Chlorhexidine Gluc 2% Cloth 1 Each Towelette TOPICAL 1 each DAILY JUSTIN Administration Cholecalciferol 50 mcg 05/23/24 22:00 05/26/24 21:17 Cholecalciferol (Vit D3) 25 Mcg Tablet (1,000 Units) GT 50 mcg QHS JUSTIN Administration Enoxaparin Sodium 40 mg 05/24/24 10:00 05/27/24 07:38 Enoxaparin 40 Mg/0.4 Ml Syringe SC 40 mg DAILY JUSTIN Administration Furosemide 40 mg 05/26/24 18:00 05/26/24 17:48 Furosemide 40 Mg/4 Ml Vial IV 40 mg BIDLX JUSTIN Administration Protocol Propofol 1,000 mg in 100 mls @ 13.44 mls/hr 05/23/24 11:35 05/27/24 09:00 Diprivan CONT INF 20 mcg/kg/min .Q7H27M JUSTIN 13.4 mls/hr Titration Protocol 20 MCG/KG/MIN Fentanyl 100 mls @ 5 mls/hr 05/23/24 12:00 05/27/24 09:00 CONT INF 100 mcg/hr UD JUSTIN 10 mls/hr Titration Protocol 50 MCG/HR Pantoprazole Sodium 40 mg/ 110 mls @ 330 mls/hr 05/23/24 22:00 05/27/24 08:13 Sodium Chloride IV Infused Q12 JUSTIN Infusion Vancomycin IV-PHARMACY TO DOSE 500 mls @ 250 mls/hr 05/23/24 18:16 1 each/ Sodium Chloride IV X1 PRN Rx to Dose Protocol Sodium Chloride 100 mls @ 15 mls/hr 05/23/24 20:03 05/25/24 20:59 IV 0 mls/hr .Q6H40M PRN Infusion Saline Flush Sodium Chloride 100 mls @ 15 mls/hr 05/23/24 20:03 05/24/24 12:46 IV Infused .Q6H40M PRN Infusion Additional IVPB Infusion Enteral Nutritional Formula 1,000 mls @ 50 mls/hr 05/24/24 17:40 05/26/24 21:18 Vital Af 1.2 Colin Liquid GT 50 mls/hr .Q20H JUSTIN Administration Dexmedetomidine HCl 1,000 mcg/ 250 mls @ 14 mls/hr 05/24/24 23:45 05/27/24 04:41 Sodium Chloride CONT INF Not Given .[id number] JUSTIN Protocol 0.5 MCG/KG/HR Vancomycin HCl 1,000 mg in 200 mls @ 200 mls/hr 05/26/24 06:00 05/27/24 07:42 Vancomycin IV Infused Q12H JUSTIN Infusion Ampicillin Sodium/Sulbactam 112 mls @ 150 mls/hr 05/26/24 22:00 05/27/24 06:20 Sodium 3 gm/ Sodium Chloride IV Infused Q8 JUSTIN Infusion Methylprednisolone Sodium Succinate 40 mg 05/27/24 10:00 05/27/24 07:39 Methylprednisolone Sod Succ 40 Mg/Ml Vial IV 40 mg DAILY JUSTIN Administration Midazolam HCl 5 mg 05/27/24 08:19 05/27/24 09:30 Midazolam 2 Mg/2 Ml Syringe IV 5 mg Q30M PRN Administration AGITATION Montelukast Sodium 10 mg 05/24/24 10:00 05/27/24 07:39 Montelukast 10 Mg Tablet GT 10 mg DAILY JUSTIN Administration Olanzapine 10 mg 05/24/24 10:00 05/27/24 07:39 Olanzapine 10 Mg Tablet GT 10 mg DAILY JUSTIN Administration Protocol Olanzapine 20 mg 05/23/24 22:00 05/26/24 21:17 Olanzapine 10 Mg Tablet GT 20 mg QHS JUSTIN Administration Ondansetron HCl 4 mg 05/23/24 18:16 Ondansetron 4 Mg/2 Ml Vial IV Q8H PRN PRN NAUSEA/VOMITING Polyethylene Glycol 17 gm 05/26/24 22:00 05/27/24 07:38 Polyethylene Glycol 3350 17 Gm Packet PO 17 gm DAILY JUSTIN Administration Quetiapine Fumarate 50 mg 05/26/24 14:00 05/27/24 05:33 Quetiapine 25 Mg Tablet NG 50 mg TID JUSTIN Administration Protocol Senna/Docusate Sodium 2 tablet 05/26/24 22:00 05/27/24 07:38 Senna/Docusate Sodium 1 Tablet PO 2 tablet BID JUSTIN Administration Sodium Chloride 10 - 40 ml 05/23/24 17:52 05/27/24 05:32 0.9% Saline Lock 10 Ml Syringe IV 20 ml UD PRN Administration SALINE FLUSH Sodium Chloride 10 - 40 ml 05/23/24 20:03 0.9% Saline Lock 10 Ml Syringe IV UD PRN SALINE FLUSH Vancomycin Protocol 1 lab 05/27/24 16:30 Vancomycin Trough/Random Due MC 05/27/24 18:30 DAILY JUSTIN Lab / Micro Data 05/27/24 05:30 05/27/24 05:30 Labs: Laboratory Results - last 24 hr 05/27/24 05:30: WBC 8.2, RBC 3.97 L, Hgb 13.1, Hct 43.4, MCV 109.3 H, MCH 33.0 H , MCHC 30.2 L, RDW Std Deviation 74.0 H, RDW Coeff of Babatunde 18.2 H, Plt Count 128 L, MPV 10.1, Immature Gran % (Auto) 0.500, Neut % (Auto) 80.8 H, Lymph % (Auto) 11.8 L, [place] % (Auto) 6.4, Eos % (Auto) 0.4, Baso % (Auto) 0.1, Absolute Neuts (auto) 6.6, Absolute Lymphs (auto) 0.96, Nucleated RBC % 0.2, Sodium 151 H, Potassium 4.5, Chloride 118 H, Carbon Dioxide 26.0, Anion Gap 7, BUN 38 H, C reatinine 1.53 H, Estim Creat Clear Calc 60.78, Est GFR (MDRD) Non-Af 51 L, B UN/Creatinine Ratio 24.5 H, Glucose 105 H, Calcium 8.5, Total Bilirubin 0.52, AST 36, ALT 29, Alkaline Phosphatase 106, Total Protein 6.7, Albumin 3.1 L, Globulin 3.6, Albumin/Globulin Ratio 0.9 05/27/24 07:30: Urine Osmolality 173 ABG Data ABG results: ABG 05/27/24 05:30 Specimen Type ART Sample Site R Radial pH 7.39 Bicarbonate Actual 29.5 H Total CO2 31 Base Excess 5 H O2 Saturation 91 L O2 % 30.0 ABG pCO2 48.5 H ABG pO2 64 L Oj Test Positive Respiration Rate 20 O2 Delivery Device ET Tube Vent Mode AC Tidal Volume 450.0 POC PEEP 5 Rhythm Strip Rhythm Strip: Sinus Rhythm Rate: 95 Ectopy: None Imaging Radiology Impression Brain MRI 05/27/24 09:00 IMPRESSION: 1. No acute abnormality. 2. Mild patchy deep white matter signal alterations, which is most commonly seen with chronic ischemic microangiopathy. Reading Location: [facility] Assessment and Plan . Assessment and plan: Pt seen and examined. Chart and data reviewed. Currently sedated w/ propofol and fentanyl. We performed SAT - severe agitation, HTN, increased RR. He had an upward gaze and was not interactive or cooperative to any extent. Ongoing mild renal insufficiency and hypernatremia. MV reviewed - very modest requirement. PE: General: morbidly obese acute on chronically ill appearing male; +MV HEENT: anicteric Sclera; + ETT, nl nose; supple neck, no masses Cardiovascular: Regular Rate and Rhythm; No murmurs, rubs, gallops; no displaced PMI Respiratory: diminished; no crackles, wheezes, or rhonchi Abdominal: Non-tender; Non distended; hypoBS x 4; No Hepatosplenomegaly Extremities: Warm, extensive LE wounds to feet/toes and chronic venous stasis dermatitis; No clubbing, cyanosis; capillary refill < 2 sec Neurological: sedated and responsive but easily agitated A/P: #Acute hypoxemic respiratory failure: intubated primarily for airway protection; cont MV; settings reviewed/adjusted; SAT/SBT as tolerated but limited due to mentation/agitation #Acute toxic metabolic encephalopathy: CT head no acute abnormalities; UDS/UTox neg; continuing home lithium and olanzapine via NGT; add scheduled seroquel #COPD exacerbation: cont nebs + quickly wean steroids off #B/L LE wounds (extensive to feet) & venous stasis dermatitis with ?cellulitis: cont on emp vanc/Zosyn without any strong suspicion of infection, nasal MRSA positive --> de-esc Abx if Cx neg x48h and if no active infection identified; cont wound care #NILESH vs CKD: nonoliguric; cont monitor #Hypernatremia: increase D5W - 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
--- NOTE | 2024-05-27 11:35 | PN.RENAL_ITS ---
<Statement entered by Trevor Strong MD - 05/27/24 18:54> I have personally performed a face to face assessment of the patient and have reviewed the PETE Note. Following patient for NILESH and hypernatremia with polyuria. Patient made 6.7 L of urine in the last 24 hours although he did receive furosemide yesterday. Overall, I/O almost match in the last 24 hours. Patient received both D5W infusion as well as water flush with tube feed. Patient is persistently polyuric even without furosemide today. I agree with holding diuretic. Will check urine osmolality to determine if polyuria is due to water diuresis or solute diuresis. If urine osmolality is more consistent with water diuresis, we will consider treating patient with DDAVP. 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 Renal function has remained stable today with serum creatinine 1.53 mg/dL. Continue keep MAP above 65 mmHg. There is no need for kidney replacement therapy. Continue current supportive care. Will recheck renal function, volume status, acid-base and electrolytes again tomorrow. Jc Strong MD Subjective Subjective On ventilator. No overnight events. Objective Data Objective Data Vital Signs: Vital Signs Temp Pulse Resp BP Pulse Ox O2 Del Method O2 Flow Rate 97.8 F 59 L 20 H 128/68 H 97 Mechanical Ventilator 35 05/27/24 08:00 05/27/24 10:26 05/27/24 10:26 05/27/24 09:50 05/27/24 10:26 05/27/24 09:50 05/25/24 15:30 FiO2 30 05/27/24 10:26 Oxygen Flow Rate (L/min) 35 Oxygen Delivery Method Mechanical Ventilator Weight: 111.8 kg Body Mass Index (BMI) 37.5 Intake & Output: Intake and Output for Last 24 Hours 05/25/24 05/26/24 05/27/24 23:59 23:59 23:59 Intake Total 2798.07 / 3126.57 7425.19 / 7739.39 2546.64 / 2546.64 Output Total 2550 / 3300 6725 / 6725 2350 / 2350 Balance 248.07 / -173.43 700.19 / 1014.39 196.64 / 196.64 Lab / Micro Data 05/27/24 05:30 05/27/24 05:30 Labs: Laboratory Results - last 24 hr 05/27/24 05:30: WBC 8.2, RBC 3.97 L, Hgb 13.1, Hct 43.4, MCV 109.3 H, MCH 33.0 H , MCHC 30.2 L, RDW Std Deviation 74.0 H, RDW Coeff of Babatunde 18.2 H, Plt Count 128 L, MPV 10.1, Immature Gran % (Auto) 0.500, Neut % (Auto) 80.8 H, Lymph % (Auto) 11.8 L, [place] % (Auto) 6.4, Eos % (Auto) 0.4, Baso % (Auto) 0.1, Absolute Neuts (auto) 6.6, Absolute Lymphs (auto) 0.96, Nucleated RBC % 0.2, Sodium 151 H, Potassium 4.5, Chloride 118 H, Carbon Dioxide 26.0, Anion Gap 7, BUN 38 H, C reatinine 1.53 H, Estim Creat Clear Calc 60.78, Est GFR (MDRD) Non-Af 51 L, B UN/Creatinine Ratio 24.5 H, Glucose 105 H, Calcium 8.5, Total Bilirubin 0.52, AST 36, ALT 29, Alkaline Phosphatase 106, Total Protein 6.7, Albumin 3.1 L, Globulin 3.6, Albumin/Globulin Ratio 0.9 05/27/24 07:30: Urine Osmolality 173 Micro: Microbiology 05/23/24 11:00 Blood Culture (Wb) - Right Hand Blood Culture - Preliminary No growth in 48 hours. 05/23/24 11:00 Blood Culture (Wb) - Anticubital Right Blood Culture - Preliminary 05/23/24 12:20 Sputum, Induced/Lukens Gram Stain - Final 05/23/24 12:20 Sputum, Induced/Lukens Respiratory Culture - Final Presumptive C albicans 05/23/24 11:20 Urine, Clean Catch Urine Culture - Final Gram negative behzad 05/23/24 11:20 Mucosa - Nose SARS-CoV-2, Influenza & RSV (PCR) - Final ABG Data ABG results: ABG 05/27/24 05:30 Specimen Type ART Sample Site R Radial pH 7.39 Bicarbonate Actual 29.5 H Total CO2 31 Base Excess 5 H O2 Saturation 91 L O2 % 30.0 ABG pCO2 48.5 H ABG pO2 64 L Oj Test Positive Respiration Rate 20 O2 Delivery Device ET Tube Vent Mode AC Tidal Volume 450.0 POC PEEP 5 Radiography Diagnostic Testing: Radiology Impression Brain MRI 05/27/24 09:00 IMPRESSION: 1. No acute abnormality. 2. Mild patchy deep white matter signal alterations, which is most commonly seen with chronic ischemic microangiopathy. Reading Location: [facility] Rhythm Strip Rhythm Strip: Sinus Rhythm Rate: 95 Ectopy: None Physical Exam Narrative Intubated on ventilator support No apparent distress S1, S2, RRR Lung sounds clear anteriorly Abdomen soft, rounded Trace edema bilateral lower legs with severe venous stasis dermatitis noted bilaterally Indwelling Gudino with clear yellow urine in bag Assessment & Plan Assessment/Plan (1) Hypernatremia: (2) NILESH (acute kidney injury): PLAN: Plan 64-year-old male with past medical history significant for COPD, bipolar and schizophrenia who presented emergency room with complaints of shortness of breath admitted for acute hypoxic respiratory failure and now on ventilator support. Nephrology consulted in view of rising creatinine and patient with history of lithium use (home dose 600 mg daily). - NILESH on possible CKD stage III: baseline creatinine has been ranging around 1.1 to 1.4 mg/dL. 12/13/2023 serum creatinine 1.33, 04/21/2024 creatinine 1.48. On admission creatinine 1.30, serum creatinine peaked 1.5 last 3 days. Serum bicarb and potassium normal. [place] level on admission normal at 1.01. Quite possibly patient has component of CKD given long history of lithium use. Slight fluctuation in serum creatinine likely from hemodynamics and hypotension with poor renal perfusion. Blood pressures have improved, patient is not on any IV pressors at this point. Has gudino, doubt obstructive component for NILESH. Admission chest x-ray showed some mild congestion. Patient is receiving free water flushes 300 mL every 4 hours, off D5W, sodium remains around 151. His lithium dose was stopped. Patient was put on Lasix 40 mg IV twice daily yesterday, urine output yesterday 6.7 L and intake yesterday documented at 7.4 L. Cumulative I&O net -800 mL. 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 - concern for nephrogenic DI; sodium was 131 on admission, peaked 152 and started on D5W. Urine output before started on lasix was ~2.5L a day. Started lasix 40mg IV yesterday. Patient now polyuric with UOP 6.7L, intake was 7.4L. If ok with primary team would recommend stopping lasix and follow UOP. Sodium 151 today. Patient has free water flushes 300ml every 4hours. - Altered LOC: Neuro following, CT head and MRI brain no acute pathology. Assessment and plan reviewed Dr. Gamez.
[2024-05-27] MEDS: 0.9% Normal Saline (100mL Bag) 100 ML 15 ML IV (14:03)
[2024-05-27] MEDS: Vancomycin Trough/Random Due 1 LAB MC (17:34)
[2024-05-27] MEDS: Vital AF 1.2 Cal Liquid 1,000 ML 50 ML GT (18:29)
[2024-05-27 18:35] LABS: Vancomycin, Trough Level 26.3 ug/mL (5.0-15.0)
--- NOTE | 2024-05-27 18:55 | PCM.RX.CS ---
Consult Antibiotic Management Pharmacy has been consulted to manage selected antibiotic: Vancomycin Type of Intervention Type of Consult: Follow-up Suspected Infection Suspected Infection: Other (Respiratory Failure) Prior Doses of Antibiotics Prior Doses of Antibiotics Received/Current Regimen: *3 doses Labs Labs: Sodium 151 mmol/L (133-145) H 05/27/24 05:30 Potassium 4.5 mmol/L (3.3-5.1) 05/27/24 05:30 Chloride 118 mmol/L (98-108) H 05/27/24 05:30 Carbon Dioxide 26.0 mmol/L (21.0-32.0) 05/27/24 05:30 Anion Gap 7 (5-15) 05/27/24 05:30 BUN 38 mg/dL (4-19) H 05/27/24 05:30 Creatinine 1.53 mg/dL (0.70-1.20) H 05/27/24 05:30 Est GFR (MDRD) Non-Af 51 (>60) L 05/27/24 05:30 BUN/Creatinine Ratio 24.5 RATIO (10-20) H 05/27/24 05:30 Glucose 105 mg/dL (70-99) H 05/27/24 05:30 Vancomycin Trough 26.3 ug/mL (5.0-15.0) H 05/27/24 17:32 Random Vancomycin 13.8 ug/mL (0.0-15.0) 05/26/24 03:30 Microbiology Microbiology: Microbiology 05/23/24 11:00 Blood Culture (Wb) - Right Hand Blood Culture - Preliminary No growth in 48 hours. 05/23/24 11:00 Blood Culture (Wb) - Anticubital Right Blood Culture - Preliminary 05/23/24 12:20 Sputum, Induced/Lukens Gram Stain - Final 05/23/24 12:20 Sputum, Induced/Lukens Respiratory Culture - Final Presumptive C albicans 05/23/24 11:20 Urine, Clean Catch Urine Culture - Final Gram negative behzad 05/23/24 11:20 Mucosa - Nose SARS-CoV-2, Influenza & RSV (PCR) - Final Dosing Weight Weight used for dosin.7 kg Goal Trough Goal Trough: 15-20 mcg/mL Pharmacy Plan for Drug Dosing Pharmacy Plan for Drug Dosing: VANCOMYCIN LEVEL RECEIVED Current Vancomycin Dose: 1000 MG Q12H Number of Doses Received: 3 Vancomycin Level: 26.4 Hours Since Last Dose: 11.5 Renal Function: SCr : 1.53 (Increase), CrCl 60.78 (Decrease) Renal Function Trend: Down trending Lab/Micro: Pharmacy Service will continue to monitor and adjust dosing as required: trough at 26.4 is supratherapeutic; planning on holding the dose, redraw a random vancomycin level in 12 hours and determine course of plan. Pending Level: 05/28/2024 @ 0530 Date/Time Labs Ordered Labs to be done on [date and time ordered]: Random level 05/28/2024 @0530
[2024-05-27 19:08] LABS: Osmolality, Urine 306 mOsm/KG
[2024-05-27 19:15] LABS: Urine Sodium 52 mmol/L (Not Establ.)
[2024-05-27] MEDS: Cholecalciferol (VIT D3) 25 MCG TABLET (1,000 UNITS) 50 MCG GT (22:49)
[2024-05-27] MEDS: Atorvastatin Calcium 10 MG Tablet GT (22:51)
[2024-05-27 23:54] LABS: Urine Potassium 18.1 mmol/L (Not Establ.)
[2024-05-28] VITALS (32 sets, daily range): BP systolic 101–149; BP diastolic 53–79; PULSE 52–133; RESP 19–33; TEMP 36.9–37.9; O2SAT 86–98; BMI 38.7
[2024-05-28] MEDS: Ipratropium/Albuterol Sulfate 3 ML AMPUL.NEB INHALATION ×4 (01:52→19:30)
[2024-05-28] MEDS: QUEtiapine 25 MG Tablet 50 MG NG (05:30)
[2024-05-28] MEDS: Ampicillin/Sulbactam 3 GM in 0.9% Normal Saline (100mL MB+) 100 ML IV ×3 (05:31→21:36)
[2024-05-28 06:04] LABS: Absolute Neutrophil Count 5.4 X10^3/uL (2.0-7.7); Basophil# 0.01 X10^3/uL; Basophil% 0.1 % (0-1); Eosinophil# 0.02 X10^3/uL; Eosinophils% 0.3 % (0-5); Hemoglobin 13.6 g/dL (13.0-16.5); Lymphocyte % 15.5 % (19-41); Mean Corp Hgb Conc 29.6 g/dL (32-36); Mean Corpuscular Hgb 32.9 pg (27.0-32.0); Mean Corpuscular Volume 111.4 fL (80-94); Mean Platelet Vol. 10.7 fl (6.2-12.0); Monocyte# 0.57 X10^3/uL; NRBC Flagged by Analyzer 0 % (0-5); Neutrophil # 5.36 X10^3/uL (2.7-7.7); Neutrophil % 75.7 % (47-70); POSITIVE MORPHOLOGY YES; Platelet Count 140 K/mm3 (150-450); RBC Distribution Width CV 18.6 % (11.6-14.6); RBC Distribution Width SD 77.1 fl (35.1-43.9); Red Blood Count 4.13 M/mm3 (4.6-6.2); White Blood Count 7.1 K/mm3 (4.4-11.0)
[2024-05-28 06:23] LABS: Differential Indicated SCAN CRITERIA MET
[2024-05-28] MEDS: Propofol 10MG/Ml 1,000 MG/100 ML Bottle 13.4 MG CONT INF (06:48)
[2024-05-28] MEDS: Budesonide Respules 0.5 MG/2 ML AMPUL.NEB. INHALATION ×2 (07:04→19:30)
[2024-05-28 07:07] LABS: Anion Gap 9 (5-15); BUN 41 mg/dL (4-19); BUN/Creat Ratio 25.2 RATIO (10-20); Carbon Dioxide 24.1 mmol/L (21.0-32.0); Chloride 126 mmol/L (98-108); Creatinine, Serum 1.62 mg/dL (0.70-1.20); EST Glomerular Filtration Rate 48 (>60); Estimated Creatinine Clearance 58.37 ml/min (50-250); Glucose 97 mg/dL (70-99); Sodium Level 160 mmol/L (133-145)
--- NOTE | 2024-05-28 07:56 | PN.CC_ITS ---
Assessment & Plan Assessment/Plan (1) Acute respiratory failure with hypoxia and hypercapnia: PLAN: Plan RECOMMENDATIONS: 1. Proceed with a trial of extubation this morning. 2. Once extubated, wean supplemental oxygen to maintain saturations at or above 90%. 3. Maintain n.p.o. status, pending evaluation by speech therapy. 4. Start D5W. 5. Continue antimicrobial therapy. 6. Continue scheduled bronchodilators. 7. Continue appropriate ICU prophylaxis. 8. The patient may require neurology follow-up, depending on clinical course. IMPRESSIONS: 1. Acute respiratory failure with hypoxemia and hypercapnia Presumed secondary to COPD exacerbation due to recurrent aspiration. The patient does have a documented history of recurrent aspiration leading to exacerbation of his underlying obstructive lung disease. At this time, the patient appears improved from a respiratory perspective with invasive mechanical ventilatory support. He passed a spontaneous breathing trial this morning and will therefore be extubated. In the interim, he will be continued on antimicrobials and bronchodilators. Plan to continue to wean supplemental oxygen to maintain saturations at or above 90%. The patient should remain n.p.o. for now, pending reevaluation by speech therapy. 2. Acute toxic/metabolic encephalopathy Clinical concern for CO2 narcosis in the setting of #1. Brain MRI completed on May 27 demonstrated no acute abnormality. Neurology was previously following the patient. Plan to attempt to limit sedating medications as feasible. Proceed with extubation as noted above. If the patient does not begin to improve from a mental status perspective, we will ask neurology to reevaluate the patient. 3. Acute kidney injury/hypernatremia Nephrology is currently following to assist with medical management. Given increasing serum sodium level, will start D5W. 4. Chronic tobacco dependency/history of schizophrenia/history of dysphagia Complicates care, management, recovery and prognosis. Continue supportive measures as noted above. The patient should again remain n.p.o., pending reevaluation by speech therapy. TIME: 35 minutes of critical care time, independent of procedures, was spent addressing the patient's acute respiratory failure with hypoxemia and hypercapnia, toxic/metabolic encephalopathy, acute kidney injury, hypernatremia, review of all data and collaboration with the care team. Subjective Subjective The patient was seen and examined at the bedside this morning. Events from the last 24 hours have been reviewed. The patient currently has a low-grade fever but remains otherwise hemodynamically stable on assist-control mode mechanical ventilation with an FiO2 requirement of 30% and PEEP of 5. The patient has remained sedated on a combination of propofol and fentanyl. He has been tolerant of tube feeding. The patient is currently documented to be overall net -1.4 L for the hospitalization. White blood cell count is normal. Sodium has increased to 160 with a chloride of 126. Creatinine is stable at 1.62. After my initial evaluation of the patient this morning, his sedation medications were placed on hold. He subsequently completed a spontaneous waking trial and then went on to complete a spontaneous breathing trial successfully. He was alert and able to follow simple commands. Therefore, the decision was made to proceed with a trial of extubation. Objective Data Objective Data The patient's most recent lab work, culture data and imaging studies have all been personally reviewed. Surface echocardiogram demonstrated normal LV size and function with an ejection fraction of 65%. Pulmonary artery systolic pressure was estimated to be 42 mmHg. Infectious workup has been largely unrevealing to date. Vital Signs: Vital Signs Temp Pulse Resp BP Pulse Ox O2 Del Method O2 Flow Rate 99.6 F H 58 L 20 H 106/57 L 92 Mechanical Ventilator 35 05/28/24 05:57 05/28/24 07:05 05/28/24 07:05 05/28/24 07:00 05/28/24 07:05 05/28/24 07:00 05/25/24 15:30 FiO2 30 05/28/24 07:05 Oxygen Flow Rate (L/min) 35 Oxygen Delivery Method Mechanical Ventilator Weight: 254 lb 13.67 oz Body Mass Index (BMI) 38.7 Intake & Output: Intake and Output for Last 24 Hours 05/26/24 05/27/24 05/28/24 23:59 23:59 23:59 Intake Total 7425.19 / 7739.39 5461.04 / 5769.02 583.78 / 583.78 Output Total 6725 / 6725 5450 / 6025 1275 / 1275 Balance 700.19 / 1014.39 11.04 / -255.98 -691.22 / -691.22 Lab / Micro Data Attestation: I reviewed the patient's lab results. 05/28/24 05:30 05/28/24 05:30 Labs: Laboratory Results - last 24 hr 05/27/24 07:30: Urine Osmolality 173 05/27/24 17:32: Vancomycin Trough 26.3 H 05/27/24 18:50: Urine Osmolality 306, Ur Random Sodium 52, Urine Potassium 18.1 05/28/24 05:30: WBC 7.1, RBC 4.13 L, Hgb 13.6, Hct 46.0, MCV 111.4 H, MCH 32.9 H , MCHC 29.6 L, RDW Std Deviation 77.1 H, RDW Coeff of Babatunde 18.6 H, Plt Count 140 L, MPV 10.7, Immature Gran % (Auto) 0.400, Neut % (Auto) 75.7 H, Lymph % (Auto) 15.5 L, [place] % (Auto) 8.0, Eos % (Auto) 0.3, Baso % (Auto) 0.1, Absolute Neuts (auto) 5.4, Absolute Lymphs (auto) 1.10, Nucleated RBC % 0, Sodium 160 H, Potassium 5.0, Chloride 126 H, Carbon Dioxide 24.1, Anion Gap 9, BUN 41 H, C reatinine 1.62 H, Estim Creat Clear Calc 58.37, Est GFR (MDRD) Non-Af 48 L, B UN/Creatinine Ratio 25.2 H, Glucose 97, Calcium 8.0 Micro: Microbiology 05/23/24 11:00 Blood Culture (Wb) - Right Hand Blood Culture - Preliminary No growth in 48 hours. 05/23/24 11:00 Blood Culture (Wb) - Anticubital Right Blood Culture - Preliminary 05/23/24 12:20 Sputum, Induced/Lukens Gram Stain - Final 05/23/24 12:20 Sputum, Induced/Lukens Respiratory Culture - Final Presumptive C albicans 05/23/24 11:20 Urine, Clean Catch Urine Culture - Final Gram negative behzad 05/23/24 11:20 Mucosa - Nose SARS-CoV-2, Influenza & RSV (PCR) - Final Radiography Diagnostic Testing: Radiology Impression Brain MRI 05/27/24 09:00 IMPRESSION: 1. No acute abnormality. 2. Mild patchy deep white matter signal alterations, which is most commonly seen with chronic ischemic microangiopathy. Reading Location: [facility] Rhythm Strip Rhythm Strip: Sinus Rhythm Rate: 95 Ectopy: None Physical Exam Const Constitutional Narrative: Intubated, sedated and mechanically ventilated. HEENT normocephalic and head/scalp atraumatic Mouth: endotracheal tube in place and OG tube in place Eyes EOMs intact bilaterally and conjunctivae normal Neck supple General: trachea midline Chest inspection of chest normal Resp Auscultation: diminished lung sounds; Negative for rales, rhonchi or wheezes Cardio regular rate and regular rhythm GI normal to inspection, nondistended, normoactive bowel sounds Extremity General Extremity: Negative for clubbing Skin General Skin Exam: venous stasis and dermatitis Neuro Sensorium / Orientation: sedated on vent Charges/Coding Procedures Hospitalists Procedures: 50625 Critical Care 1st Hr
[2024-05-28 07:59] LABS: Tear Drop Cell 1+
[2024-05-28 08:00] LABS: Anisocytosis 1+; Platelet Estimate SLT DEC (ADEQ); Schistocytes RARE; Vancomycin, Random Level 17.8 ug/mL (0.0-15.0)
--- NOTE | 2024-05-28 08:10 | PN.HOSP_ITS ---
Reason for Visit Reason for Visit: Diagnoses Hyperosmolality and hypernatremia (05/23/24) Metabolic encephalopathy (05/23/24) Unspecified diastolic (congestive) heart failure (05/23/24) Venous insufficiency (chronic) (peripheral) (05/23/24) Chronic obstructive pulmonary disease with (acute) exacerbation (05/23/24) Acute respiratory failure with hypoxia (05/23/24) Acute respiratory failure with hypercapnia (05/23/24) Acute kidney failure, unspecified (05/23/24) Subjective Subjective Following commands and establishes eye contact. Objective Data Objective Data Vital Signs: Vital Signs Temp Pulse Resp BP Pulse Ox O2 Del Method O2 Flow Rate 37.6 C H 58 L 20 H 106/57 L 92 Mechanical Ventilator 35 05/28/24 05:57 05/28/24 07:05 05/28/24 07:05 05/28/24 07:00 05/28/24 07:05 05/28/24 07:00 05/25/24 15:30 FiO2 30 05/28/24 07:05 Oxygen Flow Rate (L/min) 35 Oxygen Delivery Method Mechanical Ventilator Weight: 115.6 kg Body Mass Index (BMI) 38.7 Intake & Output: Intake and Output for Last 24 Hours 05/26/24 05/27/24 05/28/24 23:59 23:59 23:59 Intake Total 7425.19 / 7739.39 5461.04 / 5769.02 583.78 / 583.78 Output Total 6725 / 6725 5450 / 6025 1275 / 1275 Balance 700.19 / 1014.39 11.04 / -255.98 -691.22 / -691.22 Lab / Micro Data 05/28/24 05:30 05/28/24 05:30 Labs: Laboratory Results - last 24 hr 05/27/24 07:30: Urine Osmolality 173 05/27/24 17:32: Vancomycin Trough 26.3 H 05/27/24 18:50: Urine Osmolality 306, Ur Random Sodium 52, Urine Potassium 18.1 05/28/24 05:30: WBC 7.1, RBC 4.13 L, Hgb 13.6, Hct 46.0, MCV 111.4 H, MCH 32.9 H , MCHC 29.6 L, RDW Std Deviation 77.1 H, RDW Coeff of Babatunde 18.6 H, Plt Count 140 L, MPV 10.7, Immature Gran % (Auto) 0.400, Neut % (Auto) 75.7 H, Lymph % (Auto) 15.5 L, [place] % (Auto) 8.0, Eos % (Auto) 0.3, Baso % (Auto) 0.1, Absolute Neuts (auto) 5.4, Absolute Lymphs (auto) 1.10, Nucleated RBC % 0, Platelet Estimate SLT DEC, Anisocytosis 1+, Tear Drop Cells 1+, Schistocytes RARE, Sodium 160 H, Potassium 5.0, Chloride 126 H, Carbon Dioxide 24.1, Anion Gap 9, BUN 41 H, C reatinine 1.62 H, Estim Creat Clear Calc 58.37, Est GFR (MDRD) Non-Af 48 L, B UN/Creatinine Ratio 25.2 H, Glucose 97, Calcium 8.0, Random Vancomycin 17.8 H Micro: Microbiology 05/23/24 11:00 Blood Culture (Wb) - Right Hand Blood Culture - Preliminary No growth in 48 hours. 05/23/24 11:00 Blood Culture (Wb) - Anticubital Right Blood Culture - Preliminary 05/23/24 12:20 Sputum, Induced/Lukens Gram Stain - Final 05/23/24 12:20 Sputum, Induced/Lukens Respiratory Culture - Final Presumptive C albicans 05/23/24 11:20 Urine, Clean Catch Urine Culture - Final Gram negative behzad 05/23/24 11:20 Mucosa - Nose SARS-CoV-2, Influenza & RSV (PCR) - Final Radiography Diagnostic Testing: Radiology Impression Brain MRI 05/27/24 09:00 IMPRESSION: 1. No acute abnormality. 2. Mild patchy deep white matter signal alterations, which is most commonly seen with chronic ischemic microangiopathy. Reading [facility] Rhythm Strip Rhythm Strip: Sinus Rhythm Rate: 95 Ectopy: None Physical Exam Const alert Constitutional Narrative: seen prior to extubation. He established eye contact with me. He followed commands (giving a thumbs up and straightening his legs) HEENT head/scalp atraumatic and moist oral mucous membranes Resp normal respiratory effort and no retractions Resp Narrative: coarse breath sounds Cardio regular rate, regular rhythm, S1 normal heart sound and S2 normal heart sound GI normal to inspection, nondistended, normoactive bowel sounds, soft to palpation, non-tender and non-distended Extremity Extremity Narrative: venous stasis changes to LE. Neuro Sensorium / Orientation: awake and alert Assessment & Plan Assessment/Plan (1) Acute respiratory failure with hypoxia and hypercapnia: PLAN: Extubated 05/28 2/2 COPD exacerbation + CHF + pneumonia (aspiration) Wean ventilator as able. amp/SB and vancomycin (2) COPD with acute exacerbation: PLAN: BDs and methylprednisolone (3) Metabolic encephalopathy: PLAN: Toxic metabolic encephalopathy / CO2 narcosis plus underlying psychiatric history. Plus, psychiatric medications. [place] level WNL on admission. Given concern for DI, it has been discontinued. Will dc olanzapine, though it is unclear if he is actually experiencing extrapyramidal symptoms, somnolence from it; until further clarification of his mental status changes, will discontinue for now. EEG showed severe diffuse encephalopathy. No epileptiform discharges. Pt had sedation holiday on 05/27 and was very agitated and eyes deviated to left. MRI brain showed no acute abnormality. Mild patchy deep white matter signal alterations. No additional work up per neurology. (4) Hypernatremia: PLAN: Worse, up to 160 (from 151) concern for DI. on D5W with free water flushes via PEG. Back on D5. urine osm 306 DW nephrology 05/27, will DC furosemide. (5) (HFpEF) heart failure with preserved ejection fraction: PLAN: acute. Likely due to IVF for hypernatremia. started furosemide 05/26, discontinued 05/27. PLAN: Plan Chronic conditions: * Venous stasis dermatitis * schizophrenia * obesity class I VTE prophylaxis: enoxaparin. Charges/Coding Visit Charges Inpatient E&M: 39478 Subs Hosp L2
--- NOTE | 2024-05-28 08:25 | PCM.RX.CS ---
Consult Antibiotic Management Pharmacy has been consulted to manage selected antibiotic: Vancomycin Type of Intervention Type of Consult: Follow-up Suspected Infection Suspected Infection: Other (Respiratory Failure) Prior Doses of Antibiotics Prior Doses of Antibiotics Received/Current Regimen: None since hold Labs Labs: Sodium 160 mmol/L (133-145) H 05/28/24 05:30 Potassium 5.0 mmol/L (3.3-5.1) 05/28/24 05:30 Chloride 126 mmol/L (98-108) H 05/28/24 05:30 Carbon Dioxide 24.1 mmol/L (21.0-32.0) 05/28/24 05:30 Anion Gap 9 (5-15) 05/28/24 05:30 BUN 41 mg/dL (4-19) H 05/28/24 05:30 Creatinine 1.62 mg/dL (0.70-1.20) H 05/28/24 05:30 Est GFR (MDRD) Non-Af 48 (>60) L 05/28/24 05:30 BUN/Creatinine Ratio 25.2 RATIO (10-20) H 05/28/24 05:30 Glucose 97 mg/dL (70-99) 05/28/24 05:30 Vancomycin Trough 26.3 ug/mL (5.0-15.0) H 05/27/24 17:32 Random Vancomycin 17.8 ug/mL (0.0-15.0) H 05/28/24 05:30 Microbiology Microbiology: Microbiology 05/23/24 11:00 Blood Culture (Wb) - Right Hand Blood Culture - Preliminary No growth in 48 hours. 05/23/24 11:00 Blood Culture (Wb) - Anticubital Right Blood Culture - Preliminary 05/23/24 12:20 Sputum, Induced/Lukens Gram Stain - Final 05/23/24 12:20 Sputum, Induced/Lukens Respiratory Culture - Final Presumptive C albicans 05/23/24 11:20 Urine, Clean Catch Urine Culture - Final Gram negative behzad 05/23/24 11:20 Mucosa - Nose SARS-CoV-2, Influenza & RSV (PCR) - Final Dosing Weight Weight used for dosin.7 kg Estimated Creatinine Clearance Estimated Creatinine Clearance: 58.37 Goal Trough Goal Trough: 15-20 mcg/mL Pharmacy Plan for Drug Dosing Pharmacy Plan for Drug Dosing: VANCOMYCIN LEVEL RECEIVED Current Vancomycin Dose: 1000 MG Q12H Number of Doses Received: NONE Vancomycin Level: 17.8 Hours Since Last Dose: 23.5 Renal Function: SCr 1.62 mg/dL, CrCl 58.37 mL/min Renal Function Trend: Down Lab/Micro: Vancomycin Plan/Comments: holding one dose brought level to 17.8, will reduce frequency to 1000 mg q 24h and continue to monitor as needed. Pending Level: 05/30/2024 @0800 Pharmacy Service will continue to monitor and adjust dosing as required. Follow-Up Labs Follow-Up Labs: Trough: Vancomycin (05/30/2024 @0800)
[2024-05-28] MEDS: Vancomycin IV 1,000 MG/200 ML BAG 200 MG IV (08:28)
[2024-05-28] MEDS: Dextrose 5%-Water (1000mL Bag) 1,000 ML 125 ML IV ×2 (08:33→16:46)
[2024-05-28] MEDS: Enoxaparin 40 MG/0.4 ML Syringe SC (10:21)
[2024-05-28] MEDS: Pantoprazole Sodium 40 MG in 0.9% Normal Saline (100mL MB+) 100 ML 330 MG IV ×2 (10:21→21:35)
--- NOTE | 2024-05-28 12:40 | PN.NEURO_ITS ---
Assessment and Plan: Neuro Assessment/Plan 64 yo man with COPD, extensive psych history including schizophrenia, dysphagia and debility, presented 05/23 from assisted living with altered mental status in the setting of COPD exacerbation, Hypoxia and SpO2 60s%, PH 7.27 with hypercarbia, NILESH (cr 1.48) on CKD, was placed on BiPAP and remained unable to protect airways requiring intubation. He has been very agitated,? did not tolerate precedex due to bradycardia and on-going agitation, on Propofol. CTH with on acute findings, Utox negative. On home lithium and olanzapine. EEG with no fidnigns to suggest seizures or epileptic activity. MRI brain with no acute findings or stroke, but chronic small vessel white matter changes Patient got extubated, he is improving, alert, following commands Toxic metabolic encephalopathy - improving We will sign off at this time. Please call with questions. Subject: Neurology Subjective Patient got extubated today, following simple commands EEG Results Procedure Details EEG Procedure Details: FLORY ARIZA is a 64 year old M with a past medical history of , who presents for evaluation of Electroencephalogram on DATE at TIME Objective Data Objective Data Vital Signs: Vital Signs Temp Pulse Resp BP Pulse Ox O2 Del Method O2 Flow Rate 99.0 F 115 H 22 H 129/65 H 90 Nasal Cannula 6 05/28/24 11:00 05/28/24 11:00 05/28/24 11:00 05/28/24 11:00 05/28/24 11:00 05/28/24 11:00 05/28/24 11:00 FiO2 30 05/28/24 08:00 Oxygen Flow Rate (L/min) 6 Oxygen Delivery Method Nasal Cannula Weight: 115.6 kg Body Mass Index (BMI) 38.7 Intake & Output: Intake and Output for Last 24 Hours 05/26/24 05/27/24 05/28/24 23:59 23:59 23:59 Intake Total 7425.19 / 7739.39 5461.04 / 5769.02 1801.36 / 1801.36 Output Total 6725 / 6725 5450 / 6025 2875 / 2875 Balance 700.19 / 1014.39 11.04 / -255.98 -1073.64 / -1073.64 Lab / Micro Data 05/28/24 05:30 05/28/24 05:30 Labs: Laboratory Results - last 24 hr 05/27/24 17:32: Vancomycin Trough 26.3 H 05/27/24 18:50: Urine Osmolality 306, Ur Random Sodium 52, Urine Potassium 18.1 05/28/24 05:30: WBC 7.1, RBC 4.13 L, Hgb 13.6, Hct 46.0, MCV 111.4 H, MCH 32.9 H , MCHC 29.6 L, RDW Std Deviation 77.1 H, RDW Coeff of Babatunde 18.6 H, Plt Count 140 L, MPV 10.7, Immature Gran % (Auto) 0.400, Neut % (Auto) 75.7 H, Lymph % (Auto) 15.5 L, [place] % (Auto) 8.0, Eos % (Auto) 0.3, Baso % (Auto) 0.1, Absolute Neuts (auto) 5.4, Absolute Lymphs (auto) 1.10, Nucleated RBC % 0, Platelet Estimate SLT DEC, Anisocytosis 1+, Tear Drop Cells 1+, Schistocytes RARE, Sodium 160 H, Potassium 5.0, Chloride 126 H, Carbon Dioxide 24.1, Anion Gap 9, BUN 41 H, C reatinine 1.62 H, Estim Creat Clear Calc 58.37, Est GFR (MDRD) Non-Af 48 L, B UN/Creatinine Ratio 25.2 H, Glucose 97, Calcium 8.0, Random Vancomycin 17.8 H Micro: Microbiology 05/23/24 11:00 Blood Culture (Wb) - Right Hand Blood Culture - Final No growth in 5 days. 05/23/24 11:00 Blood Culture (Wb) - Anticubital Right Blood Culture - Preliminary 05/23/24 12:20 Sputum, Induced/Lukens Gram Stain - Final 05/23/24 12:20 Sputum, Induced/Lukens Respiratory Culture - Final Presumptive C albicans 05/23/24 11:20 Urine, Clean Catch Urine Culture - Final Gram negative behzad 05/23/24 11:20 Mucosa - Nose SARS-CoV-2, Influenza & RSV (PCR) - Final Rhythm Strip Rhythm Strip: Sinus Rhythm Rate: 95 Ectopy: None Physical Exam Narrative Patient alert, following simple commands, able to tell his name, but voice very gurgly
[2024-05-28 13:15] LABS: Bedside Glucose 103 mg/dL (74-106)
--- NOTE | 2024-05-28 14:32 | PN.RENAL_ITS ---
Subjective Subjective Patient was successfully extubated this morning. Sitting up in bed. Getting ready to work with therapy. Objective Data Objective Data Vital Signs: Vital Signs Temp Pulse Resp BP Pulse Ox O2 Del Method O2 Flow Rate 99.0 F 111 H 26 H 129/65 H 96 Nasal Cannula 4 05/28/24 11:00 05/28/24 13:30 05/28/24 13:30 05/28/24 11:00 05/28/24 13:30 05/28/24 13:30 05/28/24 13:30 FiO2 30 05/28/24 08:00 Oxygen Flow Rate (L/min) 4 Oxygen Delivery Method Nasal Cannula Weight: 115.6 kg Body Mass Index (BMI) 38.7 Intake & Output: Intake and Output for Last 24 Hours 05/26/24 05/27/24 05/28/24 23:59 23:59 23:59 Intake Total 7425.19 / 7739.39 5461.04 / 5769.02 1911.36 / 1911.36 Output Total 6725 / 6725 5450 / 6025 2875 / 2875 Balance 700.19 / 1014.39 11.04 / -255.98 -963.64 / -963.64 Lab / Micro Data 05/28/24 05:30 05/28/24 05:30 Labs: Laboratory Results - last 24 hr 05/27/24 17:32: Vancomycin Trough 26.3 H 05/27/24 18:50: Urine Osmolality 306, Ur Random Sodium 52, Urine Potassium 18.1 05/28/24 05:30: WBC 7.1, RBC 4.13 L, Hgb 13.6, Hct 46.0, MCV 111.4 H, MCH 32.9 H , MCHC 29.6 L, RDW Std Deviation 77.1 H, RDW Coeff of Babatunde 18.6 H, Plt Count 140 L, MPV 10.7, Immature Gran % (Auto) 0.400, Neut % (Auto) 75.7 H, Lymph % (Auto) 15.5 L, [place] % (Auto) 8.0, Eos % (Auto) 0.3, Baso % (Auto) 0.1, Absolute Neuts (auto) 5.4, Absolute Lymphs (auto) 1.10, Nucleated RBC % 0, Platelet Estimate SLT DEC, Anisocytosis 1+, Tear Drop Cells 1+, Schistocytes RARE, Sodium 160 H, Potassium 5.0, Chloride 126 H, Carbon Dioxide 24.1, Anion Gap 9, BUN 41 H, C reatinine 1.62 H, Estim Creat Clear Calc 58.37, Est GFR (MDRD) Non-Af 48 L, B UN/Creatinine Ratio 25.2 H, Glucose 97, Calcium 8.0, Random Vancomycin 17.8 H 05/28/24 12:56: POC Glucose 103 Micro: Microbiology 05/23/24 11:00 Blood Culture (Wb) - Right Hand Blood Culture - Final No growth in 5 days. 05/23/24 11:00 Blood Culture (Wb) - Anticubital Right Blood Culture - Preliminary 05/23/24 12:20 Sputum, Induced/Lukens Gram Stain - Final 05/23/24 12:20 Sputum, Induced/Lukens Respiratory Culture - Final Presumptive C albicans 05/23/24 11:20 Urine, Clean Catch Urine Culture - Final Gram negative behzad 05/23/24 11:20 Mucosa - Nose SARS-CoV-2, Influenza & RSV (PCR) - Final Rhythm Strip Rhythm Strip: Sinus Rhythm Rate: 95 Ectopy: None Physical Exam Narrative Alert, no apparent distress S1, S2, RRR Lung sounds clear anteriorly Abdomen soft, rounded Trace edema bilateral lower legs with severe venous stasis dermatitis noted bilaterally Indwelling Gudino with clear yellow urine in bag Assessment & Plan Assessment/Plan (1) Hypernatremia: (2) NILESH (acute kidney injury): PLAN: Plan 64-year-old male with past medical history significant for COPD, bipolar and schizophrenia who presented emergency room with complaints of shortness of breath admitted for acute hypoxic respiratory failure and now on ventilator support. Nephrology consulted in view of rising creatinine and patient with history of lithium use (home dose 600 mg daily). - NILESH on possible CKD stage IIIa: baseline creatinine has been ranging around 1.1 to 1.4 mg/dL. 12/13/2023 serum creatinine 1.33, 04/21/2024 creatinine 1.48. On admission creatinine 1.30, serum creatinine peaked 1.5 for 3 days--> today SCr 1.6. Overall renal function remaining stable. Serum bicarb and potassium normal. [place] level on admission normal at 1.01. Slight fluctuation in serum creatinine likely from hemodynamics and hypotension with poor renal perfusion. Blood pressures have improved, patient is not on any IV pressors. Has gudino, doubt obstructive component for NILESH. No acute indication for [employer]. -Hypernatremia with polyuria, concern for nephrogenic DI; sodium was 131 on admission, peaked 152 and started on D5W. Was started on lasix 40mg IV BID. Urine output before started on lasix was ~2.5L a day. Once on Lasix 40 mg IV twice daily urine output picked up and patient became polyuric with UOP 6.7L, intake was 7.4L 05/26. Stopped Lasix 05/27 (received a.m. dose) urine output 2.8 liters today. Sodium up to 160 today and patient started on D5W. OG out, off tube feeding and tube flushes. Will give dose of DDAVP 2 mcg one-time today. Urine Osmo last evening 306, urine sodium 52, urine potassium 18. Labs ordered for am. Continue I&O. - Altered LOC: Neuro following, CT head and MRI brain no acute pathology. Assessment and plan reviewed Dr. Gamez.
[2024-05-28] MEDS: Desmopressin Acetate 4 MCG/ML Ampul 2 MCG IV (15:30)
--- NOTE | 2024-05-28 16:26 | PN.ID_ITS ---
Physical Exam Narrative Extubated, breathing ok, wants to drink something. Low grade temp overnight. Const no apparent distress General Appearance: cooperative Resp normal air movement and clear to auscultation bilaterally Cardio regular rate and regular rhythm GI soft to palpation, non-tender and non-distended Skin Skin Narrative: BLE redness, improved ID ID: Route of nutrition/ use of supplements: [] Nutritional Intake: [] IV Site: [] Greer Catheter: [] Assessment & Plan Assessment/Plan (1) Acute respiratory failure with hypoxia and hypercapnia: PLAN: 1 of 2 bcx with GPR, so far consistent with contaminated sample. Ucx with less than 1k GNR. Some low grade temps here. L foot wound improved. On va nc/unasyn, plan on stopping soon. Now extubated. Will follow
[2024-05-28] MEDS: 0.9% Normal Saline (100mL Bag) 100 ML 15 ML IV (21:36)
[2024-05-29] VITALS (22 sets, daily range): BP systolic 129–155; BP diastolic 63–99; PULSE 78–104; RESP 20–36; TEMP 36.4–37.3; O2SAT 92–100; BMI 35.2
[2024-05-29] MEDS: Ipratropium/Albuterol Sulfate 3 ML AMPUL.NEB INHALATION ×4 (01:00→21:02)
[2024-05-29 05:16] LABS: Anion Gap 10 (5-15); BUN 34 mg/dL (4-19); BUN/Creat Ratio 23.9 RATIO (10-20); Calcium,Total 9.5 mg/dL (7.6-11.0); Carbon Dioxide 26.7 mmol/L (21.0-32.0); Chloride 133 mmol/L (98-108); Creatinine, Serum 1.42 mg/dL (0.70-1.20); EST Glomerular Filtration Rate 56 (>60); Estimated Creatinine Clearance 66.59 ml/min (50-250); Glucose 115 mg/dL (70-99); Potassium 4.5 mmol/L (3.3-5.1); Sodium Level 170 mmol/L (133-145)
[2024-05-29] MEDS: Ampicillin/Sulbactam 3 GM in 0.9% Normal Saline (100mL MB+) 100 ML IV ×3 (05:26→21:37)
[2024-05-29] MEDS: 0.9% Saline Lock 10 ML Syringe IV ×2 (05:28→13:51)
--- NOTE | 2024-05-29 07:00 | PN.HOSP_ITS ---
Reason for Visit Reason for Visit: Diagnoses Hyperosmolality and hypernatremia (05/23/24) Metabolic encephalopathy (05/23/24) Unspecified diastolic (congestive) heart failure (05/23/24) Venous insufficiency (chronic) (peripheral) (05/23/24) Chronic obstructive pulmonary disease with (acute) exacerbation (05/23/24) Acute respiratory failure with hypoxia (05/23/24) Acute respiratory failure with hypercapnia (05/23/24) Acute kidney failure, unspecified (05/23/24) Subjective Subjective Wants something to drink. Objective Data Objective Data Vital Signs: Vital Signs Temp Pulse Resp BP Pulse Ox O2 Del Method O2 Flow Rate 36.9 C 97 20 H 142/75 H 97 Nasal Cannula 4 05/29/24 04:00 05/29/24 06:00 05/29/24 06:00 05/29/24 06:00 05/29/24 06:00 05/29/24 06:00 05/29/24 06:00 FiO2 30 05/28/24 08:00 Oxygen Flow Rate (L/min) 4 Oxygen Delivery Method Nasal Cannula Weight: 105.4 kg Body Mass Index (BMI) 35.2 Intake & Output: Intake and Output for Last 24 Hours 05/27/24 05/28/24 05/29/24 23:59 23:59 23:59 Intake Total 5461.04 / 5769.02 3245.36 / 3245.36 1100 / 1100 Output Total 5450 / 6025 6525 / 7125 1500 / 1500 Balance 11.04 / -255.98 -3279.64 / -3879.64 -400 / -400 Lab / Micro Data 05/28/24 05:30 05/29/24 04:15 Labs: Laboratory Results - last 24 hr 05/28/24 05:30: Platelet Estimate SLT DEC, Anisocytosis 1+, Tear Drop Cells 1+, Schistocytes RARE, Sodium 160 H, Potassium 5.0, Chloride 126 H, Carbon Dioxide 24.1, Anion Gap 9, BUN 41 H, Creatinine 1.62 H, Estim Creat Clear Calc 58.37, E st GFR (MDRD) Non-Af 48 L, BUN/Creatinine Ratio 25.2 H, Glucose 97, Calcium 8.0, Random Vancomycin 17.8 H 05/28/24 12:56: POC Glucose 103 05/29/24 04:15: Sodium 170 H*, Potassium 4.5, Chloride 133 H*, Carbon Dioxide 26.7, Anion Gap 10, BUN 34 H, Creatinine 1.42 H, Estim Creat Clear Calc 66.59, E st GFR (MDRD) Non-Af 56 L, BUN/Creatinine Ratio 23.9 H, Glucose 115 H, Calcium 9.5 Micro: Microbiology 05/23/24 11:00 Blood Culture (Wb) - Right Hand Blood Culture - Final No growth in 5 days. 05/23/24 11:00 Blood Culture (Wb) - Anticubital Right Blood Culture - Preliminary 05/23/24 12:20 Sputum, Induced/Lukens Gram Stain - Final 05/23/24 12:20 Sputum, Induced/Lukens Respiratory Culture - Final Presumptive C albicans 05/23/24 11:20 Urine, Clean Catch Urine Culture - Final Gram negative behzad 05/23/24 11:20 Mucosa - Nose SARS-CoV-2, Influenza & RSV (PCR) - Final Rhythm Strip Rhythm Strip: Sinus Rhythm Rate: 95 Ectopy: None Physical Exam Const alert and no apparent distress HEENT head/scalp atraumatic and moist oral mucous membranes Resp normal respiratory effort, no retractions, no use of accessory muscles and clear to auscultation bilaterally Cardio regular rate, regular rhythm, S1 normal heart sound and S2 normal heart sound GI normal to inspection, nondistended, normoactive bowel sounds, soft to palpation, non-tender and non-distended Extremity normal to inspection, full ROM and no clubbing, cyanosis or edema Neuro Sensorium / Orientation: awake, alert, oriented to person, oriented to place and oriented to time Assessment & Plan Assessment/Plan (1) Acute respiratory failure with hypoxia and hypercapnia: PLAN: Extubated 05/28 2/2 COPD exacerbation + CHF + pneumonia (aspiration) amp/SB and vancomycin (2) COPD with acute exacerbation: PLAN: BDs and methylprednisolone (3) Metabolic encephalopathy: PLAN: Toxic metabolic encephalopathy 2/2 CO2 narcosis plus underlying psychiatric history. Plus, psychiatric medications. [place] level WNL on admission. Given concern for DI, it has been discontinued. Will dc olanzapine, though it is unclear if he is actually experiencing extrapyramidal symptoms, somnolence from it; until further clarification of his mental status changes, will discontinue for now. EEG showed severe diffuse encephalopathy. No epileptiform discharges. MRI brain showed no acute abnormality. Mild patchy deep white matter signal alterations. No additional work up per neurology. (4) Hypernatremia: PLAN: Continues to worsen, up to 1670 (from 160) concern for DI. on D5W with free water flushes via PEG. Back on D5. urine osm 306 DW nephrology 05/27, will DC furosemide. Received DDAVP 2mg on 05/28. Plan to give another dose today. (5) (HFpEF) heart failure with preserved ejection fraction: PLAN: acute. Likely due to IVF for hypernatremia. started furosemide 05/26, discontinued 05/27. PLAN: Plan Chronic conditions: * Venous stasis dermatitis * schizophrenia * obesity class I VTE prophylaxis: enoxaparin. Charges/Coding Visit Charges Inpatient E&M: 85394 Subs Hosp L2
[2024-05-29] MEDS: Budesonide Respules 0.5 MG/2 ML AMPUL.NEB. INHALATION ×2 (07:11→21:02)
[2024-05-29] MEDS: CHLORHEXIDINE GLUC 2% CLOTH 1 EACH TOWELETTE TOPICAL (07:29)
[2024-05-29] MEDS: Vancomycin IV 1,000 MG/200 ML BAG 200 MG IV (07:29)
[2024-05-29] MEDS: Enoxaparin 40 MG/0.4 ML Syringe SC (07:33)
[2024-05-29] MEDS: Pantoprazole Sodium 40 MG in 0.9% Normal Saline (100mL MB+) 100 ML 330 MG IV ×2 (07:34→21:37)
--- NOTE | 2024-05-29 08:36 | PN.CC_ITS ---
Assessment & Plan Assessment/Plan (1) Acute respiratory failure with hypoxia and hypercapnia: PLAN: Plan RECOMMENDATIONS: 1. Wean supplemental oxygen to maintain saturations at or above 90%. 2. Restart D5W with consideration for DDAVP dosing, per nephrology. 3. Serial monitoring of sodium level throughout the day. 4. Maintain n.p.o. status, pending evaluation by speech therapy. 5. Continue antimicrobial therapy to complete 7 days of therapy. 6. Continue scheduled bronchodilators. IMPRESSIONS: 1. Acute respiratory failure with hypoxemia and hypercapnia Presumed secondary to COPD exacerbation due to recurrent aspiration. The patient does have a documented history of recurrent aspiration leading to exacerbation of his underlying obstructive lung disease. With supportive care, including bronchodilators and antimicrobials, the patient was able to be extubated on May 28. Recommend continuing to wean supplemental oxygen to maintain saturations at or above 90%. The patient should remain n.p.o. for now, pending reevaluation by speech therapy. 2. Acute toxic/metabolic encephalopathy Clinical concern for CO2 narcosis in the setting of #1. Brain MRI completed on May 27 demonstrated no acute abnormality. Neurology was previously following the patient. Plan to attempt to limit sedating medications as feasible. The patient appears to be slowly improving from a clinical perspective. 3. Acute kidney injury/hypernatremia Nephrology is currently following to assist with medical management. Continue D5W as ordered along with serial monitoring of sodium levels throughout the day. Nephrology considering re-dosing of DDAVP. 4. Chronic tobacco dependency/history of schizophrenia/history of dysphagia Complicates care, management, recovery and prognosis. Continue supportive measures as noted above. The patient should again remain n.p.o., pending reevaluation by speech therapy. This note was generated with [employer] dictation software. It may contain incorrect words, spelling, and punctuation that were not noted in checking the note before signing. Subjective Subjective The patient was seen and examined at the bedside this morning. Events from the last 24 hours have been reviewed. The patient is currently afebrile, hemodynamically stable and maintaining appropriate oxygen saturations on 2 L/min via nasal cannula. The patient has done well from a respiratory perspective following extubation yesterday. He is currently documented to be overall net - 4.2 L for the hospitalization. Sodium this morning is increased at 170 with a chloride of 133. Creatinine is improved to 1.42. This case was discussed with nephrology this morning. Objective Data Objective Data The patient's most recent lab work, culture data and imaging studies have all been personally reviewed. Surface echocardiogram demonstrated normal LV size and function with an ejection fraction of 65%. Pulmonary artery systolic pressure was estimated to be 42 mmHg. Infectious workup has been largely unrevealing to date. Vital Signs: Vital Signs Temp Pulse Resp BP Pulse Ox O2 Del Method O2 Flow Rate 98.4 F 78 28 H 138/75 H 95 Nasal Cannula 4 05/29/24 04:00 05/29/24 07:11 05/29/24 07:11 05/29/24 07:00 05/29/24 07:11 05/29/24 07:11 05/29/24 07:11 FiO2 30 05/28/24 08:00 Oxygen Flow Rate (L/min) 4 Oxygen Delivery Method Nasal Cannula Weight: 232 lb 5.875 oz Body Mass Index (BMI) 35.2 Intake & Output: Intake and Output for Last 24 Hours 05/27/24 05/28/24 05/29/24 23:59 23:59 23:59 Intake Total 5461.04 / 5769.02 3245.36 / 3245.36 1522 / 1522 Output Total 5450 / 6025 6525 / 7125 1500 / 1500 Balance 11.04 / -255.98 -3279.64 / -3879.64 Lab / Micro Data Attestation: I reviewed the patient's lab results. 05/28/24 05:30 05/29/24 04:15 Labs: Laboratory Results - last 24 hr 05/28/24 12:56: POC Glucose 103 05/29/24 04:15: Sodium 170 H*, Potassium 4.5, Chloride 133 H*, Carbon Dioxide 26.7, Anion Gap 10, BUN 34 H, Creatinine 1.42 H, Estim Creat Clear Calc 66.59, E st GFR (MDRD) Non-Af 56 L, BUN/Creatinine Ratio 23.9 H, Glucose 115 H, Calcium 9.5 Micro: Microbiology 05/23/24 11:00 Blood Culture (Wb) - Right Hand Blood Culture - Final No growth in 5 days. 05/23/24 11:00 Blood Culture (Wb) - Anticubital Right Blood Culture - Preliminary 05/23/24 12:20 Sputum, Induced/Lukens Gram Stain - Final 05/23/24 12:20 Sputum, Induced/Lukens Respiratory Culture - Final Presumptive C albicans 05/23/24 11:20 Urine, Clean Catch Urine Culture - Final Gram negative behzad 05/23/24 11:20 Mucosa - Nose SARS-CoV-2, Influenza & RSV (PCR) - Final Radiography Diagnostic Testing: Radiology Impression Brain MRI 05/27/24 09:00 IMPRESSION: 1. No acute abnormality. 2. Mild patchy deep white matter signal alterations, which is most commonly seen with chronic ischemic microangiopathy. Reading Location: [facility] Rhythm Strip Rhythm Strip: Sinus Rhythm Rate: 95 Ectopy: None Physical Exam Const Constitutional Narrative: Much more alert and interactive than yesterday. Still remains confused. HEENT normocephalic and head/scalp atraumatic HEENT Narrative: Dry mucous membranes Eyes EOMs intact bilaterally and conjunctivae normal Neck supple General: trachea midline Chest inspection of chest normal Resp Auscultation: diminished lung sounds; Negative for rales, rhonchi or wheezes Cardio regular rate and regular rhythm GI normal to inspection, nondistended, normoactive bowel sounds Extremity General Extremity: Negative for clubbing or edema Skin General Skin Exam: venous stasis and dermatitis Neuro CN's II-XII intact bilaterally and moves all extremities Charges/Coding Visit Charges Inpatient E&M: 82374 Subs Hosp L3
[2024-05-29] MEDS: Dextrose 5%-Water (1000mL Bag) 1,000 ML 150 ML IV ×3 (08:58→23:17)
--- NOTE | 2024-05-29 10:00 | PCM.PN.ID ---
Physical Exam Narrative Feeling better, mild dyspnea, no pain in legs. Const alert and no apparent distress General Appearance: cooperative Resp normal air movement and clear to auscultation bilaterally Cardio regular rate and regular rhythm GI soft to palpation, non-tender and non-distended Extremity General Extremity: edema Skin Skin Narrative: BLE less red ID ID: Route of nutrition/ use of supplements: [] Nutritional Intake: [] IV Site: [] Greer Catheter: [] Assessment & Plan Assessment/Plan (1) Acute respiratory failure with hypoxia and hypercapnia: PLAN: 1 of 2 bcx with GPR, so far consistent with contaminated sample. Ucx with less than 1k GNR. Some low grade temps here. L foot wound improved. On vanc/unasyn, plan on stopping tomorrow. Will follow
--- NOTE | 2024-05-29 12:38 | PN.RENAL_ITS ---
Subjective Subjective Resting in bed, more alert today. No overnight events. Last sodium level from this am 170. Objective Data Objective Data Vital Signs: Vital Signs Temp Pulse Resp BP Pulse Ox O2 Del Method O2 Flow Rate 99.0 F 95 30 H 140/75 H 95 Nasal Cannula 4 05/29/24 11:00 05/29/24 12:10 05/29/24 12:10 05/29/24 11:00 05/29/24 11:00 05/29/24 11:00 05/29/24 11:00 FiO2 30 05/28/24 08:00 Oxygen Flow Rate (L/min) 4 Oxygen Delivery Method Nasal Cannula Weight: 105.4 kg Body Mass Index (BMI) 35.2 Intake & Output: Intake and Output for Last 24 Hours 05/27/24 05/28/24 05/29/24 23:59 23:59 23:59 Intake Total 5461.04 / 5769.02 3245.36 / 3245.36 1832 / 1832 Output Total 5450 / 6025 6525 / 7125 2750 / 2750 Balance 11.04 / -255.98 -3279.64 / -3879.64 -918 / -918 Lab / Micro Data 05/28/24 05:30 05/29/24 11:40 Labs: Laboratory Results - last 24 hr 05/28/24 12:56: POC Glucose 103 05/29/24 04:15: Sodium 170 H*, Potassium 4.5, Chloride 133 H*, Carbon Dioxide 26.7, Anion Gap 10, BUN 34 H, Creatinine 1.42 H, Estim Creat Clear Calc 66.59, E st GFR (MDRD) Non-Af 56 L, BUN/Creatinine Ratio 23.9 H, Glucose 115 H, Calcium 9.5 Micro: Microbiology 05/23/24 11:00 Blood Culture (Wb) - Anticubital Right Blood Culture - Preliminary 05/23/24 11:00 Blood Culture (Wb) - Right Hand Blood Culture - Final No growth in 5 days. 05/23/24 12:20 Sputum, Induced/Lukens Gram Stain - Final 05/23/24 12:20 Sputum, Induced/Lukens Respiratory Culture - Final Presumptive C albicans 05/23/24 11:20 Urine, Clean Catch Urine Culture - Final Gram negative behzad 05/23/24 11:20 Mucosa - Nose SARS-CoV-2, Influenza & RSV (PCR) - Final Rhythm Strip Rhythm Strip: Sinus Rhythm Rate: 95 Ectopy: None Physical Exam Narrative Alert to name and place, no apparent distress S1, S2, RRR Lung sounds clear anteriorly Abdomen soft, rounded Trace non-pitting edema bilateral lower legs with severe venous stasis dermatitis noted bilaterally Indwelling Gudino with clear yellow urine in bag Assessment & Plan Assessment/Plan (1) Hypernatremia: (2) NILESH (acute kidney injury): PLAN: Plan 64-year-old male with past medical history significant for COPD, bipolar and schizophrenia who presented emergency room with complaints of shortness of breath admitted for acute hypoxic respiratory failure and now on ventilator support. Nephrology consulted in view of rising creatinine and patient with history of lithium use (home dose 600 mg daily). - NILESH on possible CKD stage IIIa: baseline creatinine has been ranging around 1.1 to 1.4 mg/dL. 12/13/2023 serum creatinine 1.33, 04/21/2024 creatinine 1.48. On admission creatinine 1.30, serum creatinine peaked 1.6 yesterday and today SCr 1.42. Overall renal function remaining stable. Serum bicarb and potassium normal. [address] level on admission normal at 1.01. Slight fluctuation in serum creatinine likely from hemodynamics and hypotension with poor renal perfusion. Blood pressures have improved, patient is not on any IV pressors. Has gudino. No acute indication for [employer]. 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 Urine output began to increase after started on Lasix 40 mg IV twice daily and patient became polyuric with UOP 6.7L, intake was 7.4L on 05/26. Stopped Lasix 05/27. 05/27 Urine Osmo 306, urine sodium 52, urine potassium 18. 05/28 sodium 160 patient started on D5W, OG out, off tube feeding and flushes, patient received one time dose DDAVP 2 mcg 05/28. Sodium up to 170 today, on D5W with increase rate to 150ml/hr, urine output so far today 2.7L--> sodium of 168 recheck at 1130. We will give another dose ddavp 2mcg x1, repeat urine osmo. Serial BMP ordered for today and for am. Patient started on diet and thickened liquids, no need to restrict fluids. Continue I&O. Assessment and plan reviewed Dr. Gamez.
--- NOTE | 2024-05-29 12:44 | CASEMGMT ---
SW attempted to call patient's mom to discuss d/c plan. However, there was no answer and the voice mail has not been set up. STEVE will try again later. STEVE Mohr did talk with patient's mom earlier this visit and she did say if patient needs SNF they would prefer [facility]. STEVE will start the referral process. Maliha Infante [employer] MACHINE OPERATOR KIRBY
[2024-05-29 13:02] LABS: Anion Gap 22 (5-15); BUN 35 mg/dL (4-19); BUN/Creat Ratio 22.7 RATIO (10-20); Calcium,Total 7.7 mg/dL (7.6-11.0); Carbon Dioxide 13.9 mmol/L (21.0-32.0); Chloride 132 mmol/L (98-108); Creatinine, Serum 1.56 mg/dL (0.70-1.20); EST Glomerular Filtration Rate 50 (>60); Estimated Creatinine Clearance 57.78 ml/min (50-250); Glucose 134 mg/dL (70-99); Potassium 4.6 mmol/L (3.3-5.1); Sodium Level 168 mmol/L (133-145)
[2024-05-29] MEDS: Desmopressin Acetate 40 MCG/10 ML Vial IV (13:50)
--- NOTE | 2024-05-29 14:07 | CASEMGMT ---
Addendum entered by Elisabet Mcmillan 05/29/24 15:13: [facility] has accepted. Elisabet Mcmillan DC Planning Asst. Original Note: Discharge Planning Referral sent to [facility]. Elisabet Mcmillan DC Planning Asst.
[2024-05-29 15:38] LABS: Osmolality, Urine 332 mOsm/KG
[2024-05-29] MEDS: Cholecalciferol (VIT D3) 25 MCG TABLET (1,000 UNITS) 50 MCG GT (21:51)
[2024-05-29] MEDS: Senna/Docusate Sodium 1 Tablet 2 TABLET PO (21:51)
[2024-05-29] MEDS: Atorvastatin Calcium 10 MG Tablet GT (21:51)
[2024-05-29 23:56] LABS: Anion Gap 15 (5-15); BUN 30 mg/dL (4-19); BUN/Creat Ratio 19.4 RATIO (10-20); Calcium,Total 8.9 mg/dL (7.6-11.0); Carbon Dioxide 20.2 mmol/L (21.0-32.0); Chloride 126 mmol/L (98-108); Creatinine, Serum 1.56 mg/dL (0.70-1.20); EST Glomerular Filtration Rate 50 (>60); Estimated Creatinine Clearance 57.78 ml/min (50-250); Glucose 99 mg/dL (70-99); Potassium 4.5 mmol/L (3.3-5.1); Sodium Level 162 mmol/L (133-145)
[2024-05-30] VITALS (13 sets, daily range): BP systolic 120–143; BP diastolic 60–69; PULSE 85–99; RESP 19–40; TEMP 36.3–37; O2SAT 91–98; BMI 35.4
[2024-05-30 00:47] LABS: Anion Gap 13 (5-15); BUN 30 mg/dL (4-19); Calcium,Total 8.7 mg/dL (7.6-11.0); Carbon Dioxide 21.5 mmol/L (21.0-32.0); Chloride 126 mmol/L (98-108); Creatinine, Serum 1.57 mg/dL (0.70-1.20); EST Glomerular Filtration Rate 50 (>60); Estimated Creatinine Clearance 57.41 ml/min (50-250); Glucose 108 mg/dL (70-99); Potassium 4.5 mmol/L (3.3-5.1); Sodium Level 160 mmol/L (133-145)
[2024-05-30] MEDS: Ipratropium/Albuterol Sulfate 3 ML AMPUL.NEB INHALATION ×4 (01:20→19:09)
[2024-05-30] MEDS: Ampicillin/Sulbactam 3 GM in 0.9% Normal Saline (100mL MB+) 100 ML IV (06:01)
[2024-05-30] MEDS: 0.9% Saline Lock 10 ML Syringe IV (06:01)
[2024-05-30] MEDS: Dextrose 5%-Water (1000mL Bag) 1,000 ML 150 ML IV (06:01)
--- NOTE | 2024-05-30 06:54 | PN.HOSP_ITS ---
Reason for Visit Reason for Visit: Diagnoses Hyperosmolality and hypernatremia (05/23/24) Metabolic encephalopathy (05/23/24) Unspecified diastolic (congestive) heart failure (05/23/24) Venous insufficiency (chronic) (peripheral) (05/23/24) Chronic obstructive pulmonary disease with (acute) exacerbation (05/23/24) Acute respiratory failure with hypoxia (05/23/24) Acute respiratory failure with hypercapnia (05/23/24) Acute kidney failure, unspecified (05/23/24) Subjective Subjective Breathing ok. Objective Data Objective Data Vital Signs: Vital Signs Temp Pulse Resp BP Pulse Ox O2 Del Method O2 Flow Rate 36.3 C L 85 25 H 126/60 H 95 Nasal Cannula 2 05/30/24 06:09 05/30/24 06:09 05/30/24 06:09 05/30/24 06:09 05/30/24 06:09 05/30/24 06:09 05/30/24 06:09 FiO2 30 05/28/24 08:00 Oxygen Flow Rate (L/min) 2 Oxygen Delivery Method Nasal Cannula Weight: 105.6 kg Body Mass Index (BMI) 35.4 Intake & Output: Intake and Output for Last 24 Hours 05/28/24 05/29/24 05/30/24 23:59 23:59 23:59 Intake Total 3245.36 / 3245.36 4406 / 4646 1951 / 1951 Output Total 6525 / 7125 3550 / 4550 1850 / 1850 Balance -3279.64 / -3879.64 856 / 96 102 / 102 Lab / Micro Data 05/30/24 07:50 05/30/24 07:50 Labs: Laboratory Results - last 24 hr 05/29/24 11:40: Sodium 168 H*, Potassium 4.6, Chloride 132 H*, Carbon Dioxide 13.9 L, Anion Gap 22 H, BUN 35 H, Creatinine 1.56 H, Estim Creat Clear Calc 57.78, Est GFR (MDRD) Non-Af 50 L, BUN/Creatinine Ratio 22.7 H, Glucose 134 H, Calcium 7.7 05/29/24 13:55: Urine Osmolality 332 05/29/24 21:08: Sodium 162 H*, Potassium 4.5, Chloride 126 H, Carbon Dioxide 20.2 L, Anion Gap 15, BUN 30 H, Creatinine 1.56 H, Estim Creat Clear Calc 57.78, Est GFR (MDRD) Non-Af 50 L, BUN/Creatinine Ratio 19.4, Glucose 99, Calcium 8.9 05/30/24 00:16: Sodium 160 H, Potassium 4.5, Chloride 126 H, Carbon Dioxide 21.5, Anion Gap 13, BUN 30 H, Creatinine 1.57 H, Estim Creat Clear Calc 57.41, E st GFR (MDRD) Non-Af 50 L, BUN/Creatinine Ratio 19.0, Glucose 108 H, Calcium 8.7 Micro: Microbiology 05/23/24 11:00 Blood Culture (Wb) - Anticubital Right Blood Culture - Preliminary 05/23/24 11:00 Blood Culture (Wb) - Right Hand Blood Culture - Final No growth in 5 days. 05/23/24 12:20 Sputum, Induced/Lukens Gram Stain - Final 05/23/24 12:20 Sputum, Induced/Lukens Respiratory Culture - Final Presumptive C albicans 05/23/24 11:20 Urine, Clean Catch Urine Culture - Final Gram negative behzad 05/23/24 11:20 Mucosa - Nose SARS-CoV-2, Influenza & RSV (PCR) - Final Rhythm Strip Rhythm Strip: Sinus Rhythm Rate: 95 Ectopy: None Physical Exam Const alert and no apparent distress HEENT head/scalp atraumatic and moist oral mucous membranes Resp normal respiratory effort, no retractions and no use of accessory muscles Cardio regular rate, regular rhythm and S1 normal heart sound GI normal to inspection, nondistended, normoactive bowel sounds, soft to palpation, non-tender and non-distended Extremity normal to inspection, full ROM and no clubbing, cyanosis or edema Neuro Sensorium / Orientation: awake and alert Assessment & Plan Assessment/Plan (1) Acute respiratory failure with hypoxia and hypercapnia: PLAN: Extubated 05/28 2/2 COPD exacerbation + CHF + pneumonia (aspiration) amp/SB and vancomycin (2) COPD with acute exacerbation: PLAN: BDs and methylprednisolone (3) Metabolic encephalopathy: PLAN: Toxic metabolic encephalopathy 2/2 CO2 narcosis plus underlying psychiatric history. Plus, psychiatric medications. [place] level WNL on admission. Given concern for DI, it has been discontinued. Will dc olanzapine, though it is unclear if he is actually experiencing extrapyramidal symptoms, somnolence from it; until further clarification of his mental status changes, will discontinue for now. EEG showed severe diffuse encephalopathy. No epileptiform discharges. MRI brain showed no acute abnormality. Mild patchy deep white matter signal alterations. No additional work up per neurology. (4) Hypernatremia: PLAN: Continues to worsen, up to 170 (from 160) on 05/29, down to 160. concern for DI, possible lithium-induced (which has since been held) on D5W with free water flushes via PEG. Back on D5. urine osm 306 Received DDAVP 2mg on 05/28 and 05/29. (5) (HFpEF) heart failure with preserved ejection fraction: PLAN: acute. Likely due to IVF for hypernatremia. started furosemide 05/26, discontinued 05/27. PLAN: Plan Chronic conditions: * Venous stasis dermatitis * schizophrenia: Zyprexa and lithium held. * obesity class I VTE prophylaxis: enoxaparin. Disposition: to [facility] when medically stable. Charges/Coding Visit Charges Inpatient E&M: 72148 Subs Hosp L2
[2024-05-30] MEDS: Budesonide Respules 0.5 MG/2 ML AMPUL.NEB. INHALATION ×2 (06:59→19:09)
[2024-05-30 08:08] LABS: Absolute Lymphocyte Count 0.83 X10^3/uL (0.83-4.51); Absolute Neutrophil Count 8.7 X10^3/uL (2.0-7.7); Basophil# 0.03 X10^3/uL; Basophil% 0.3 % (0-1); Eosinophil# 0.26 X10^3/uL; Eosinophils% 2.5 % (0-5); Hematocrit 47.8 % (40-54); Hemoglobin 14.3 g/dL (13.0-16.5); Lymphocyte # 0.83 X10^3/ul (0.83-4.51); Mean Corp Hgb Conc 29.9 g/dL (32-36); Mean Corpuscular Hgb 32.6 pg (27.0-32.0); Mean Corpuscular Volume 109.1 fL (80-94); Mean Platelet Vol. 10.4 fl (6.2-12.0); Monocyte% 4.8 % (0-10); NRBC Flagged by Analyzer 0 % (0-5); Neutrophil # 8.66 X10^3/uL (2.7-7.7); POSITIVE MORPHOLOGY YES; Platelet Count 135 K/mm3 (150-450); RBC Distribution Width SD 73.5 fl (35.1-43.9); Red Blood Count 4.38 M/mm3 (4.6-6.2); White Blood Count 10.3 K/mm3 (4.4-11.0)
[2024-05-30 08:18] LABS: Differential Indicated SCAN CRITERIA MET
[2024-05-30 08:46] LABS: Vancomycin, Trough Level 12.2 ug/mL (5.0-15.0)
--- NOTE | 2024-05-30 08:59 | PCM.RX.CS ---
Consult Antibiotic Management Pharmacy has been consulted to manage selected antibiotic: Vancomycin Type of Intervention Type of Consult: Follow-up Labs Labs: Vancomycin Trough 12.2 ug/mL (5.0-15.0) 05/30/24 07:50 Random Vancomycin 17.8 ug/mL (0.0-15.0) H 05/28/24 05:30 Microbiology Microbiology: Microbiology 05/23/24 11:00 Blood Culture (Wb) - Anticubital Right Blood Culture - Preliminary 05/23/24 11:00 Blood Culture (Wb) - Right Hand Blood Culture - Final No growth in 5 days. 05/23/24 12:20 Sputum, Induced/Lukens Gram Stain - Final 05/23/24 12:20 Sputum, Induced/Lukens Respiratory Culture - Final Presumptive C albicans 05/23/24 11:20 Urine, Clean Catch Urine Culture - Final Gram negative behzad 05/23/24 11:20 Mucosa - Nose SARS-CoV-2, Influenza & RSV (PCR) - Final Goal Trough Goal Trough: 15-20 mcg/mL Pharmacy Plan for Drug Dosing Pharmacy Plan for Drug Dosing: VANCOMYCIN LEVEL RECEIVED Current Vancomycin Dose: 1000mg IV Q24h Number of Doses Received: 2 (of current regimen) Vancomycin Level: 12.2 Hours Since Last Dose: ~12.5 hr Renal Function: 1.57 Renal Function Trend: elevated from admission, but stable from yesterday Lab/Micro: no new micro results Vancomycin Plan/Comments: Patient had a trough drawn which resulted in a value of 12.2 (goal 15-20). patient's level is slightly subtherapeutic. Will increase dose slightly to 1250mg IV q24h to start 05/30/24 @1000. Pending Level: 06/01/24 @0930, prior to 3rd dose of new regimen Pharmacy Service will continue to monitor and adjust dosing as required.
[2024-05-30 09:10] LABS: Anisocytosis 1+; Platelet Estimate SLT DEC (ADEQ)
--- NOTE | 2024-05-30 09:48 | PN.CC_ITS ---
Assessment & Plan Assessment/Plan (1) Acute respiratory failure with hypoxia and hypercapnia: PLAN: Plan RECOMMENDATIONS: 1. Wean supplemental oxygen to maintain saturations at or above 90%. 2. Continue D5W with DDAVP dosing per nephrology. 3. Dietary advancement per speech therapy. 4. Continue antimicrobial therapy to complete 7 days of therapy. 5. Continue scheduled bronchodilators. 6. Will sign off from a critical care perspective. Please call with any additional questions. IMPRESSIONS: 1. Acute respiratory failure with hypoxemia and hypercapnia Presumed secondary to COPD exacerbation due to recurrent aspiration. The patient does have a documented history of recurrent aspiration leading to exacerbation of his underlying obstructive lung disease. With supportive care, including bronchodilators and antimicrobials, the patient was able to be extubated on May 28. Recommend continuing to wean supplemental oxygen to maintain saturations at or above 90%. Recommend cautious dietary advancement, per speech therapy recommendations. 2. Acute toxic/metabolic encephalopathy Improved. Clinical concern for CO2 narcosis in the setting of #1. Brain MRI completed on May 27 demonstrated no acute abnormality. Neurology was previously following the patient. 3. Acute kidney injury/hypernatremia Nephrology is currently following to assist with medical management. Continue D5W as ordered along with serial monitoring of sodium levels throughout the day. Will defer ongoing dosing of DDAVP to nephrology. 4. Chronic tobacco dependency/history of schizophrenia/history of dysphagia Complicates care, management, recovery and prognosis. Continue supportive measures as noted above. Physical therapy to work with the patient. This note was generated with [employer] dictation software. It may contain incorrect words, spelling, and punctuation that were not noted in checking the note before signing. Subjective Subjective The patient was seen and examined at the bedside this morning. Events from the last 24 hours have been reviewed. The patient is currently afebrile, hemodynamically stable and maintaining appropriate oxygen saturations on 2 L/min via nasal cannula. White blood cell count remains normal. Sodium has improved to 160. The patient did receive DDAVP again yesterday and remains on D5W. Objective Data Objective Data The patient's most recent lab work, culture data and imaging studies have all been personally reviewed. Surface echocardiogram demonstrated normal LV size and function with an ejection fraction of 65%. Pulmonary artery systolic pressure was estimated to be 42 mmHg. Infectious workup has been largely unrevealing to date. Vital Signs: Vital Signs Temp Pulse Resp BP Pulse Ox O2 Del Method O2 Flow Rate 98.4 F 94 19 H 124/66 H 94 Nasal Cannula 2 05/30/24 09:26 05/30/24 09:26 05/30/24 09:26 05/30/24 09:26 05/30/24 09:26 05/30/24 09:26 05/30/24 09:26 FiO2 30 05/28/24 08:00 Oxygen Flow Rate (L/min) 2 Oxygen Delivery Method Nasal Cannula Weight: 232 lb 12.93 oz Body Mass Index (BMI) 35.4 Intake & Output: Intake and Output for Last 24 Hours 05/28/24 05/29/24 05/30/24 23:59 23:59 23:59 Intake Total 3245.36 / 3245.36 4406 / 4646 1951 / 1951 Output Total 6525 / 7125 3550 / 4550 2400 / 2400 Balance -3279.64 / -3879.64 856 / 96 -448 / -448 Lab / Micro Data Attestation: I reviewed the patient's lab results. 05/30/24 07:50 05/30/24 00:16 Labs: Laboratory Results - last 24 hr 05/29/24 11:40: Sodium 168 H*, Potassium 4.6, Chloride 132 H*, Carbon Dioxide 13.9 L, Anion Gap 22 H, BUN 35 H, Creatinine 1.56 H, Estim Creat Clear Calc 57.78, Est GFR (MDRD) Non-Af 50 L, BUN/Creatinine Ratio 22.7 H, Glucose 134 H, Calcium 7.7 05/29/24 13:55: Urine Osmolality 332 05/29/24 21:08: Sodium 162 H*, Potassium 4.5, Chloride 126 H, Carbon Dioxide 20.2 L, Anion Gap 15, BUN 30 H, Creatinine 1.56 H, Estim Creat Clear Calc 57.78, Est GFR (MDRD) Non-Af 50 L, BUN/Creatinine Ratio 19.4, Glucose 99, Calcium 8.9 05/30/24 00:16: Sodium 160 H, Potassium 4.5, Chloride 126 H, Carbon Dioxide 21.5, Anion Gap 13, BUN 30 H, Creatinine 1.57 H, Estim Creat Clear Calc 57.41, E st GFR (MDRD) Non-Af 50 L, BUN/Creatinine Ratio 19.0, Glucose 108 H, Calcium 8.7 05/30/24 07:50: WBC 10.3, RBC 4.38 L, Hgb 14.3, Hct 47.8, MCV 109.1 H, MCH 32.6 H, MCHC 29.9 L, RDW Std Deviation 73.5 H, RDW Coeff of Babatunde 18.0 H, Plt Count 135 L, MPV 10.4, Immature Gran % (Auto) 0.400, Neut % (Auto) 84.0 H, Lymph % (Auto) 8.0 L, [place] % (Auto) 4.8, Eos % (Auto) 2.5, Baso % (Auto) 0.3, Absolute Neuts (auto) 8.7 H, Absolute Lymphs (auto) 0.83, Nucleated RBC % 0, Platelet Estimate SLT DEC, Anisocytosis 1+, Vancomycin Trough 12.2 Micro: Microbiology 05/23/24 11:00 Blood Culture (Wb) - Anticubital Right Blood Culture - Preliminary 05/23/24 11:00 Blood Culture (Wb) - Right Hand Blood Culture - Final No growth in 5 days. 05/23/24 12:20 Sputum, Induced/Lukens Gram Stain - Final 05/23/24 12:20 Sputum, Induced/Lukens Respiratory Culture - Final Presumptive C albicans 05/23/24 11:20 Urine, Clean Catch Urine Culture - Final Gram negative behzad 05/23/24 11:20 Mucosa - Nose SARS-CoV-2, Influenza & RSV (PCR) - Final Radiography Diagnostic Testing: Radiology Impression Brain MRI 05/27/24 09:00 IMPRESSION: 1. No acute abnormality. 2. Mild patchy deep white matter signal alterations, which is most commonly seen with chronic ischemic microangiopathy. Reading Location: [facility] Rhythm Strip Rhythm Strip: Sinus Rhythm Rate: 95 Ectopy: None Physical Exam Const alert and no apparent distress General Appearance: cooperative HEENT normocephalic and head/scalp atraumatic Eyes EOMs intact bilaterally and conjunctivae normal Neck supple General: trachea midline Chest inspection of chest normal Resp Auscultation: diminished lung sounds; Negative for rales, rhonchi or wheezes Cardio regular rate and regular rhythm GI normal to inspection, nondistended, normoactive bowel sounds Extremity General Extremity: Negative for clubbing or edema Skin General Skin Exam: venous stasis and dermatitis Neuro CN's II-XII intact bilaterally and moves all extremities Charges/Coding Visit Charges Inpatient E&M: 50736 Subs Hosp L2
--- NOTE | 2024-05-30 10:25 | ST.MBS ---
Modified Barium Swallow Patient Information Study Date: 05/30/24 Study Time: 09:45 Direct Billable Minutes: 120 Total Minutes procedure & reportin Diagnosis: Acute resp failure w/ hypoxia & hypercapnia J96.11/J96.12 Referring Physician: Mark Gonzalez Reason for Referral: FLORY ARIZA, is a 64 M who presented to [facility] ED on 05/23/2024 with altered mentation. Patient came from assisted living. Medical history is significant for COPD, schizophrenia, chronic venous stasis dermatitis, dysphagia and debility. Was last hospitalized here in December for acute hypoxic respiratory failure secondary to COPD exacerbation with suspected aspiration pneumonia. Pt was admitted w/ acute hypoxic and hypercapnic respiratory failure and was subsequently intubated 05/23/24 at 1100. Extubated 05/28/24 at 0935. The patient participated in a CBSE 05/29/24 and was advanced to pureed textures/thin liquids w/ MBSS recommended d/t patient being a known silent aspirator. ? Pt is known to [facility] speech Therapy department from prior admission 10/26 w/ MBSS completed 10/30/23 which revealed Moderate oropharyngeal dysphagia R13.12 w/ SILENT aspiration of thin liquids via tsp and deep laryngeal penetration of mildly thick via cup and thin liquids via straw without full ejection, increasing risk for post prandial aspiration - recommendations included Easy to Chew Textures/Thin Liquids w/ the following compensatory strategies: Small Bites, Small Sips (CHIN TUCK WITH ALL SIPS), Slow Rate, Sitting upright and Remain sitting upright for 30 minutes after PO intake and 1:1 Close Supervision (ALL FOOD/DRINK). Dysphagia POC to include...-Training the patient in use of strategies to decrease risk for aspiration; Ongoing assessment of diet tolerance of recommended textures. If worsening respiratory status and/or poor adherence to recommended strategies to decrease risk for aspiration, consider diet downgrade to honey/moderately thick liquids; Train the patient in oropharyngeal exercise program to improve bolus control, airway closure, swallow onset, and UES duration of opening (lingual resistance, CTAR, Maxwell, Shaker, Yawn stretch). Medical History: Hypercarbia Aspiration pneumonia Hypoxemia GERD (gastroesophageal reflux disease) Sepsis Tobacco abuse Schizophrenia COPD exacerbation Bipolar disorder Current Diet Ordered: puree/thin Dentition: Natural Teeth (few remaining teeth) Mental Status: Impaired (unable to sufficiently follow commands to limit liquid bolus volume or trial compensatory strategies) Respiratory Status: Oxygenating on 2L/M nasal cannula Penetration-Aspiration Scale Penetration-Aspiration Scale: OBJECTIVE ASSESSMENT OF SWALLOW FUNCTION (QUANTITATIVE ? PER TRIAL): PENETRATION / ASPIRATION SCALE (FORD): 1 = does not enter airway 2 = enters airway/above vocal folds/ejected 3 = enters airway/above vocal folds/not ejected 4 = enters airway/contacts vocal folds/ejected 5 = enters airway/contacts vocal folds/not ejected 6 = enters airway/below vocal folds/ejected 7 = enters airway/below vocal folds/not ejected despite effort 8 = enters airway/below vocal folds/no effort VIDEOFLOROSCOPIC SCALE SCORE (FORD): Grade I = aspiration of material that has penetrated into the laryngeal vestibule, intact cough reflex Grade II = aspiration < 10 % of the bolus, intact cough reflex Grade III = aspiration of < 10 % of the bolus, reduced cough reflex or aspiration of > 10 % of the bolus, intact cough reflex Grade IV = aspiration of > 10 % of the bolus, reduced cough reflex Penetration-Aspiration Scale Score Thin Liquid via teaspoon: Result: 1= does not enter airway Thin Liquid via teaspoon Trial 2: Result: 1= does not enter airway Thin Liquid via small single sip: cup: Result: 1= does not enter airway Thin Liquid via large single sip: cup: Result: 5= enters airways/contacts vocal folds/not ejected Thin Liquid via large single sip: cup Trial 2: Result: 5= enters airways/contacts vocal folds/not ejected Thin Liquid via large single sip: cup Trial 3: Result: 5= enters airways/contacts vocal folds/not ejected Thin Liquid via single sip: straw: Result: 5= enters airways/contacts vocal folds/not ejected Thin Liquid via sequential sips: cup: Result: 8= enters airway/below vocal folds/no effort (Grade III = aspiration of < 10 % of the bolus, reduced cough reflex ) [place] Thick Liquid via small single sip: cup: Result: 3= enters airways/above vocal folds/not ejected [place] Thick Liquid via large single sip: cup: Result: 3= enters airways/above vocal folds/not ejected Honey Thick Liquid via large single sip: cup: Result: 1= does not enter airway Pudding via teaspoon: Result: 1= does not enter airway Cookie: Comment: PROLONGED MASTICATION, UNABLE TO COMPLETE A-P TRANSPORTATION TO INITIATE SWALLOW - HAD TO SPIT OUT THE COOKIE Thin Liquid via small single sip: cup Trial 2: Result: 3= enters airways/above vocal folds/not ejected (UNABLE TO VIEW VOCAL FOLDS D/T POOR POSITIONING W/ DEGLUTITION; SUSPECT PENETRATION TO THE VF) [place] Thick Liquid via large single sip: cup Trial 2: Result: 3= enters airways/above vocal folds/not ejected Honey Thick Liquid via small single sip: cup: Result: 1= does not enter airway Oral Phase Labial Seal: Escape progressing to mid-chin Tongue Control During Bolus Hold: Posterior escape of greater than half of bolus Bolus Preparation/Mastication: Disorganized chewing/mashing with solid pieces of bolus unchewed Bolus Transport/Lingual Motion: Slowed tongue motion Oral Residue: Residue collection on oral structures Pharyngeal Phase Initiation of Pharyngeal Swallow: Bolus head in pyriforms Soft Palate Elevation: No bolus between soft palate and pharyngeal wall Laryngeal Elevation: Min superior movement thyroid cart/min apprx aryte cart-epig petiole Anterior Hyoid Excursion: Partial anterior movement Epiglottic Movement: Complete inversion Laryngeal Vestibule Closure at Height of Swallow: Incomplete; narrow column of air/contrast in laryngeal vestibule Pharyngeal Stripping Wave: Present - diminished Pharyngoesophageal Segment Opening: Parital distension and partial duration; parital obstruction of flow Tongue Base Retraction: Narrow column of contrast between tongue base & post. pharyngeal wall Pharyngeal Residue: Trace residue within or on pharyngeal structures Esophageal Phase Esophageal Clearance: Complete clearance Diagnosis/Impression Diagnosis: moderate oropharyngeal dysphagia R13.12 Impression: The oral phase is primarily marked by... Decreased bolus control with premature posterior loss of majority of bolus to the pharynx prior to swallow onset Anterior bolus loss attributed to poor positioning w/ the patient leaning forward nearly 90 degrees With both thin and mildly thickened liquids, bolus spilled to the laryngeal vestibule prior to/during swallow onset POOR ability to control liquid bolus volume w/ the patient taking exceedingly large volume sips despite maximal verbal cues to reduce bolus volume Slowed tongue motion for A-P transport Insufficient mastication w/ solids pieces remaining unchewed after an extended period of time, unable to initiate AP bolus transportation to swallow the cookie and had to spit it out ? The pharyngeal phase is primarily marked by... Delayed swallow onset Reduced tongue base retraction mildly reduced pharyngeal contraction and reduced PES distention/duration resulting in trace to mild residue lining the pharyngeal structures postprandially Incomplete laryngeal vestibule closure w/ thin and mildly thick liquids consistently penetrating the airway d/t incomplete hyolaryngeal excursion Deep laryngeal penetration of large volume thin and mildly thick liquid boluses by cup and straw contacting the vocal folds w/out ejection, placing the patient at risk for postprandial aspiration of retained contrast w/in the laryngeal vestibule No penetration w/ thin liquids via teaspoon Transient SILENT ASPIRATION of thin liquids w/ large sequential swallows, no response to contrast dropping below the vocal folds Significantly impulsive w/ inability to limit bolus volume despite MAX verbal cues Jose patient struggled to remain seated upright w/ a majority of boluses swallows while the patient was leaning forward ~90 degrees, this positioning increased the risk for penetration/aspiration ?The esophageal phase is unremarkable. Recommendations Diet: Extremely Thick Liquids Comment: Restrictive diet d/t patient inability to follow commands to limit bolus size/volume, placing him at high risk for recurrent aspiration; recommend trials of thin liquid via teaspoon under speech therapy supervision, repeat MBSS prior to advancement Compensatory Strategies: Small Bites, Small Sips, Slow Rate and Sitting upright Supervision: Total Feed (1:1 direct supervision) Recommend Repeat Modified Barium Swallow: Yes Need for Skilled Speech Therapy Services: Yes Comment: Dysphagia POC to include... Train the patient in use of strategies to decrease risk for aspiration Trials of thin liquid by teaspoon w/ ADMINISTRATIVE INTERN only, consider use of [place] cup or other volume limiting method Train the patient in oropharyngeal exercise program to improve bolus control, airway closure, swallow onset, and UES duration of opening (lingual resistance, CTAR, Maxwell, Shaker, Yawn stretch) Education Completed: 1. Described result of evaluation., 2. Pt understands evaluation & agrees with goals and treatment plan. and 7. Pt requires further education on strategies & risks. Status Active ST Patient: Active Contact Information [facility] Speech Therapy:: Mili Byrd M.A. ADMINISTRATIVE INTERN Speech-Language Pathologist [id number] [place] [address] [email or web address] [phone]
[2024-05-30 10:47] LABS: Anion Gap 9 (5-15); BUN 32 mg/dL (4-19); BUN/Creat Ratio 20.3 RATIO (10-20); Calcium,Total 9.1 mg/dL (7.6-11.0); Carbon Dioxide 22.9 mmol/L (21.0-32.0); Chloride 121 mmol/L (98-108); Creatinine, Serum 1.56 mg/dL (0.70-1.20); EST Glomerular Filtration Rate 50 (>60); Estimated Creatinine Clearance 57.83 ml/min (50-250); Glucose 128 mg/dL (70-99); Potassium 4.7 mmol/L (3.3-5.1); Sodium Level 153 mmol/L (133-145)
[2024-05-30] MEDS: Pantoprazole Sodium 40 MG in 0.9% Normal Saline (100mL MB+) 100 ML 330 MG IV ×2 (11:06→22:04)
[2024-05-30] MEDS: Enoxaparin 40 MG/0.4 ML Syringe SC (11:08)
[2024-05-30] MEDS: Polyethylene Glycol 3350 17 GM PACKET PO (11:08)
[2024-05-30] MEDS: Vancomycin HCl 1,250 MG in 0.9% Normal Saline (250mL Bag) 250 ML 167 MG IV (11:09)
[2024-05-30] MEDS: Montelukast 10 MG Tablet GT (11:09)
[2024-05-30] MEDS: Senna/Docusate Sodium 1 Tablet 2 TABLET PO ×2 (11:09→22:05)
[2024-05-30] MEDS: CHLORHEXIDINE GLUC 2% CLOTH 1 EACH TOWELETTE TOPICAL (11:09)
[2024-05-30 13:00] LABS: Anion Gap 10 (5-15); BUN 30 mg/dL (4-19); BUN/Creat Ratio 20.2 RATIO (10-20); Chloride 122 mmol/L (98-108); Creatinine, Serum 1.49 mg/dL (0.70-1.20); EST Glomerular Filtration Rate 53 (>60); Estimated Creatinine Clearance 60.55 ml/min (50-250); Glucose 177 mg/dL (70-99); Potassium 4.3 mmol/L (3.3-5.1); Sodium Level 152 mmol/L (133-145)
--- NOTE | 2024-05-30 13:50 | PCM.PN.REN ---
Subjective Subjective Sitting up in bed. No complaints. Moved out of ICU. Objective Data Objective Data Vital Signs: Vital Signs Temp Pulse Resp BP Pulse Ox O2 Del Method O2 Flow Rate 98.4 F 94 19 H 124/66 H 94 Nasal Cannula 3 05/30/24 09:26 05/30/24 09:26 05/30/24 10:00 05/30/24 09:26 05/30/24 09:26 05/30/24 10:00 05/30/24 10:00 FiO2 30 05/28/24 08:00 Oxygen Flow Rate (L/min) 3 Oxygen Delivery Method Nasal Cannula Weight: 105.6 kg Body Mass Index (BMI) 35.4 Intake & Output: Intake and Output for Last 24 Hours 05/28/24 05/29/24 05/30/24 23:59 23:59 23:59 Intake Total 3245.36 / 3245.36 4406 / 4646 3337 / 3337 Output Total 6525 / 7125 3550 / 4550 2400 / 2400 Balance -3279.64 / -3879.64 856 / 96 937 / 937 Lab / Micro Data 05/30/24 07:50 05/30/24 12:01 Labs: Laboratory Results - last 24 hr 05/29/24 13:55: Urine Osmolality 332 05/29/24 21:08: Sodium 162 H*, Potassium 4.5, Chloride 126 H, Carbon Dioxide 20.2 L, Anion Gap 15, BUN 30 H, Creatinine 1.56 H, Estim Creat Clear Calc 57.78, Est GFR (MDRD) Non-Af 50 L, BUN/Creatinine Ratio 19.4, Glucose 99, Calcium 8.9 05/30/24 00:16: Sodium 160 H, Potassium 4.5, Chloride 126 H, Carbon Dioxide 21.5, Anion Gap 13, BUN 30 H, Creatinine 1.57 H, Estim Creat Clear Calc 57.41, Est GFR (MDRD) Non-Af 50 L, BUN/Creatinine Ratio 19.0, Glucose 108 H, Calcium 8.7 05/30/24 07:50: WBC 10.3, RBC 4.38 L, Hgb 14.3, Hct 47.8, MCV 109.1 H, MCH 32.6 H, MCHC 29.9 L, RDW Std Deviation 73.5 H, RDW Coeff of Babatunde 18.0 H, Plt Count 135 L, MPV 10.4, Immature Gran % (Auto) 0.400, Neut % (Auto) 84.0 H, Lymph % (Auto) 8.0 L, [place] % (Auto) 4.8, Eos % (Auto) 2.5, Baso % (Auto) 0.3, Absolute Neuts (auto) 8.7 H, Absolute Lymphs (auto) 0.83, Nucleated RBC % 0, Platelet Estimate SLT DEC, Anisocytosis 1+, Sodium 153 H, Potassium 4.7, Chloride 121 H, Carbon Dioxide 22.9, Anion Gap 9, BUN 32 H, Creatinine 1.56 H, Estim Creat Clear Calc 57.83, Est GFR (MDRD) Non-Af 50 L, BUN/Creatinine Ratio 20.3 H, Glucose 128 H, Calcium 9.1, Vancomycin Trough 12.2 05/30/24 12:01: Sodium 152 H, Potassium 4.3, Chloride 122 H, Carbon Dioxide 21.0, Anion Gap 10, BUN 30 H, Creatinine 1.49 H, Estim Creat Clear Calc 60.55, Est GFR (MDRD) Non-Af 53 L, BUN/Creatinine Ratio 20.2 H, Glucose 177 H, Calcium 9.0 Micro: Microbiology 05/23/24 11:00 Blood Culture (Wb) - Anticubital Right Blood Culture - Preliminary 05/23/24 11:00 Blood Culture (Wb) - Right Hand Blood Culture - Final No growth in 5 days. 05/23/24 12:20 Sputum, Induced/Lukens Gram Stain - Final 05/23/24 12:20 Sputum, Induced/Lukens Respiratory Culture - Final Presumptive C albicans 05/23/24 11:20 Urine, Clean Catch Urine Culture - Final Gram negative behzad 05/23/24 11:20 Mucosa - Nose SARS-CoV-2, Influenza & RSV (PCR) - Final Rhythm Strip Rhythm Strip: Sinus Rhythm Rate: 95 Ectopy: None Physical Exam Narrative Alert to name and place, no apparent distress, more alert today S1, S2, RRR Lung sounds clear anteriorly Abdomen soft, rounded Trace non-pitting edema bilateral lower legs with severe venous stasis dermatitis noted bilaterally Indwelling Gudino with clear yellow urine in bag Assessment & Plan Assessment/Plan (1) Hypernatremia: (2) NILESH (acute kidney injury): PLAN: Plan 64-year-old male with past medical history significant for COPD, bipolar and schizophrenia who presented emergency room with complaints of shortness of breath admitted for acute hypoxic respiratory failure and now on ventilator support. Nephrology consulted in view of rising creatinine and patient with history of lithium use (home dose 600 mg daily). - NILESH on possible CKD stage IIIa: baseline creatinine has been ranging around 1.1 to 1.4 mg/dL. 12/13/2023 serum creatinine 1.33, 04/21/2024 creatinine 1.48. On admission creatinine 1.30, serum creatinine peaked 1.6 yesterday and today SCr 1.49. Overall renal function remaining stable. Serum bicarb and potassium normal. [place] level on admission normal at 1.01. Slight fluctuation in serum creatinine likely from hemodynamics and hypotension with poor renal perfusion. Blood pressures have improved. Has gudino. No acute indication for [employer]. -Hypernatremia with polyuria; lithium induced nephrogenic DI; sodium was 131 on admission. Urine output began to increase after started on Lasix 40 mg IV twice daily and patient became polyuric with UOP 6.7L, intake was 7.4L on 05/26. Stopped Lasix 05/27. 05/27 Urine Osmo 306, urine sodium 52, urine potassium 18. 05/28 sodium 160 patient started on D5W, OG out, off tube feeding and flushes, patient received one time dose DDAVP 2 mcg 05/28. Sodium up to 170 (this was peak) 05/29, D5W rate increased 150ml/hr, urine output 3.5L 05/29-> sodium 168 recheck at 1130 and received another dose ddavp 2mcg x1 05/29. Checked serum sodium more frequently last 24 hours and it has slowly corrected, last serum sodium 152. Patient is off D5W. He is on supervised pureed diet, thickened liquids. Patient does not need to restrict oral fluids. Will repeat urine osmo and will restart back on D5W at 75ml/hr, we will possibly stop IV fluids if serum sodium <145 and patient taking in oral fluids/solute adequately. Patient does not need ddavp today. UOP so far today 2.4L. BMP ordered for am. Continue strict I&O. Assessment and plan reviewed with Dr. Gamez.
[2024-05-30] MEDS: Dextrose 5%-Water (1000mL Bag) 1,000 ML 75 ML IV (16:05)
[2024-05-30 19:37] LABS: Osmolality, Urine 216 mOsm/KG
[2024-05-30] MEDS: Atorvastatin Calcium 10 MG Tablet GT (22:05)
[2024-05-30] MEDS: Cholecalciferol (VIT D3) 25 MCG TABLET (1,000 UNITS) 50 MCG GT (22:06)
[2024-05-31] VITALS (20 sets, daily range): BP systolic 107–133; BP diastolic 59–77; PULSE 76–105; RESP 24–40; TEMP 36.1–37.2; O2SAT 93–99; BMI 29.8
[2024-05-31] MEDS: Ipratropium/Albuterol Sulfate 3 ML AMPUL.NEB INHALATION ×5 (01:18→23:48)
[2024-05-31] MEDS: Dextrose 5%-Water (1000mL Bag) 1,000 ML 75 ML IV ×2 (05:31→18:44)
--- NOTE | 2024-05-31 07:43 | PCM.PN.HOSP ---
Reason for Visit Reason for Visit: Diagnoses Hyperosmolality and hypernatremia (05/23/24) Metabolic encephalopathy (05/23/24) Unspecified diastolic (congestive) heart failure (05/23/24) Venous insufficiency (chronic) (peripheral) (05/23/24) Chronic obstructive pulmonary disease with (acute) exacerbation (05/23/24) Acute respiratory failure with hypoxia (05/23/24) Acute respiratory failure with hypercapnia (05/23/24) Acute kidney failure, unspecified (05/23/24) Subjective Subjective No shortness of breath. Objective Data Objective Data Vital Signs: Vital Signs Temp Pulse Resp BP Pulse Ox O2 Del Method O2 Flow Rate 36.4 C L 77 24 H 123/68 H 95 Nasal Cannula 4 05/31/24 06:00 05/31/24 06:00 05/31/24 06:00 05/31/24 06:00 05/31/24 06:00 05/31/24 06:00 05/31/24 06:00 FiO2 30 05/28/24 08:00 Oxygen Flow Rate (L/min) 4 Oxygen Delivery Method Nasal Cannula Weight: 89 kg Body Mass Index (BMI) 29.8 Intake & Output: Intake and Output for Last 24 Hours 05/29/24 05/30/24 05/31/24 23:59 23:59 23:59 Intake Total 4406 / 4646 3807 / 3807 1000 / 1000 Output Total 3550 / 4550 4050 / 4050 2200 / 2200 Balance 856 / 96 -243 / -243 -1200 / -1200 Lab / Micro Data 05/30/24 07:50 05/31/24 06:03 Labs: Laboratory Results - last 24 hr 05/30/24 07:50: WBC 10.3, RBC 4.38 L, Hgb 14.3, Hct 47.8, MCV 109.1 H, MCH 32.6 H, MCHC 29.9 L, RDW Std Deviation 73.5 H, RDW Coeff of Babatunde 18.0 H, Plt Count 135 L, MPV 10.4, Immature Gran % (Auto) 0.400, Neut % (Auto) 84.0 H, Lymph % (Auto) 8.0 L, [place] % (Auto) 4.8, Eos % (Auto) 2.5, Baso % (Auto) 0.3, Absolute Neuts (auto) 8.7 H, Absolute Lymphs (auto) 0.83, Nucleated RBC % 0, Platelet Estimate SLT DEC, Anisocytosis 1+, Sodium 153 H, Potassium 4.7, Chloride 121 H, Carbon Dioxide 22.9, Anion Gap 9, BUN 32 H, Creatinine 1.56 H, Estim Creat Clear Calc 57.83, Est GFR (MDRD) Non-Af 50 L, BUN/Creatinine Ratio 20.3 H, Glucose 128 H, Calcium 9.1, Vancomycin Trough 12.2 05/30/24 12:01: Sodium 152 H, Potassium 4.3, Chloride 122 H, Carbon Dioxide 21.0, Anion Gap 10, BUN 30 H, Creatinine 1.49 H, Estim Creat Clear Calc 60.55, Est GFR (MDRD) Non-Af 53 L, BUN/Creatinine Ratio 20.2 H, Glucose 177 H, Calcium 9.0 05/30/24 18:50: Urine Osmolality 216 Micro: Microbiology 05/23/24 11:00 Blood Culture (Wb) - Anticubital Right Blood Culture - Preliminary 05/23/24 11:00 Blood Culture (Wb) - Right Hand Blood Culture - Final No growth in 5 days. 05/23/24 12:20 Sputum, Induced/Lukens Gram Stain - Final 05/23/24 12:20 Sputum, Induced/Lukens Respiratory Culture - Final Presumptive C albicans 05/23/24 11:20 Urine, Clean Catch Urine Culture - Final Gram negative behzad 05/23/24 11:20 Mucosa - Nose SARS-CoV-2, Influenza & RSV (PCR) - Final Rhythm Strip Rhythm Strip: Sinus Rhythm Rate: 95 Ectopy: None Physical Exam Const alert and no apparent distress Constitutional Narrative: up in chair. no respiratory distress. no conversational dyspnea. Resp normal respiratory effort and no retractions Neuro Sensorium / Orientation: awake and alert Psych affect normal Assessment & Plan Assessment/Plan (1) Acute respiratory failure with hypoxia and hypercapnia: PLAN: Extubated 05/28 2/2 COPD exacerbation + CHF + pneumonia (aspiration) amp/SB and vancomycin completed for pneumonia (2) COPD with acute exacerbation: PLAN: BDs and methylprednisolone (3) Metabolic encephalopathy: PLAN: Toxic metabolic encephalopathy 2/2 CO2 narcosis plus underlying psychiatric history. Plus, psychiatric medications. [place] level WNL on admission. Given concern for DI, it has been discontinued. Will dc olanzapine, though it is unclear if he is actually experiencing extrapyramidal symptoms, somnolence from it; until further clarification of his mental status changes, will discontinue for now. EEG showed severe diffuse encephalopathy. No epileptiform discharges. MRI brain showed no acute abnormality. Mild patchy deep white matter signal alterations. No additional work up per neurology. (4) Hypernatremia: PLAN: Improving. 2/2 diabetes insipidus. Received DDAVP 2mg on 05/28 and 05/29. Still on D5W. Ideally, patient will need to increase his overall intake to stabilize his sodium. (5) (HFpEF) heart failure with preserved ejection fraction: PLAN: acute. Likely due to IVF for hypernatremia. started furosemide 05/26, discontinued 05/27. PLAN: Plan Chronic conditions: Venous stasis dermatitis schizophrenia: Zyprexa and lithium held. obesity class I VTE prophylaxis: enoxaparin. Disposition: to [facility] when medically stable. Charges/Coding Visit Charges Inpatient E&M: 01234 Subs Hosp L2
[2024-05-31 07:48] LABS: Anion Gap 9 (5-15); BUN 30 mg/dL (4-19); BUN/Creat Ratio 18.2 RATIO (10-20); Calcium,Total 9.2 mg/dL (7.6-11.0); Carbon Dioxide 20.6 mmol/L (21.0-32.0); Chloride 124 mmol/L (98-108); Creatinine, Serum 1.63 mg/dL (0.70-1.20); EST Glomerular Filtration Rate 47 (>60); Estimated Creatinine Clearance 50.94 ml/min (50-250); Glucose 114 mg/dL (70-99); Potassium 4.8 mmol/L (3.3-5.1); Sodium Level 153 mmol/L (133-145)
[2024-05-31] MEDS: Enoxaparin 40 MG/0.4 ML Syringe SC (09:51)
[2024-05-31] MEDS: Polyethylene Glycol 3350 17 GM PACKET PO (09:51)
[2024-05-31] MEDS: Pantoprazole Sodium 40 MG in 0.9% Normal Saline (100mL MB+) 100 ML 330 MG IV ×2 (09:52→22:13)
[2024-05-31] MEDS: Senna/Docusate Sodium 1 Tablet 2 TABLET PO (09:52)
[2024-05-31] MEDS: Montelukast 10 MG Tablet GT (09:53)
[2024-05-31] MEDS: Vancomycin HCl 1,250 MG in 0.9% Normal Saline (250mL Bag) 250 ML 167 MG IV (10:35)
[2024-05-31] MEDS: Budesonide Respules 0.5 MG/2 ML AMPUL.NEB. INHALATION (18:58)
[2024-05-31] MEDS: Cholecalciferol (VIT D3) 25 MCG TABLET (1,000 UNITS) 50 MCG PO (22:16)
[2024-05-31] MEDS: Atorvastatin Calcium 10 MG Tablet PO (22:55)
[2024-06-01 07:15] LABS: Absolute Lymphocyte Count 0.89 X10^3/uL (0.83-4.51); Basophil# 0.02 X10^3/uL; Basophil% 0.2 % (0-1); Eosinophil# 0.42 X10^3/uL; Eosinophils% 4.8 % (0-5); Hematocrit 46.4 % (40-54); Hemoglobin 13.8 g/dL (13.0-16.5); Lymphocyte # 0.89 X10^3/ul (0.83-4.51); Lymphocyte % 10.1 % (19-41); Mean Corp Hgb Conc 29.7 g/dL (32-36); Mean Corpuscular Hgb 32.7 pg (27.0-32.0); Mean Platelet Vol. 10.9 fl (6.2-12.0); Monocyte# 0.46 X10^3/uL; Monocyte% 5.2 % (0-10); NRBC Flagged by Analyzer 0 % (0-5); Neutrophil # 6.96 X10^3/uL (2.7-7.7); POSITIVE MORPHOLOGY YES; Platelet Count 145 K/mm3 (150-450); RBC Distribution Width SD 69.6 fl (35.1-43.9); Red Blood Count 4.22 M/mm3 (4.6-6.2); White Blood Count 8.8 K/mm3 (4.4-11.0)
[2024-06-01 07:16] LABS: Differential Indicated SCAN CRITERIA MET
[2024-06-01] MEDS: Budesonide Respules 0.5 MG/2 ML AMPUL.NEB. INHALATION (07:21)
[2024-06-01] MEDS: Ipratropium/Albuterol Sulfate 3 ML AMPUL.NEB INHALATION ×3 (07:21→19:01)
[2024-06-01 07:22] VITALS: PULSE 72; RESP 30; O2SAT 97
--- NOTE | 2024-06-01 07:56 | PN.HOSP_ITS ---
Reason for Visit Reason for Visit: Diagnoses Hyperosmolality and hypernatremia (05/23/24) Metabolic encephalopathy (05/23/24) Unspecified diastolic (congestive) heart failure (05/23/24) Venous insufficiency (chronic) (peripheral) (05/23/24) Chronic obstructive pulmonary disease with (acute) exacerbation (05/23/24) Acute respiratory failure with hypoxia (05/23/24) Acute respiratory failure with hypercapnia (05/23/24) Acute kidney failure, unspecified (05/23/24) Subjective Subjective Feeling well. Objective Data Objective Data Vital Signs: Vital Signs Temp Pulse Resp BP Pulse Ox O2 Del Method O2 Flow Rate 36.4 C L 72 30 H 110/64 97 Nasal Cannula 2 05/31/24 22:47 06/01/24 07:22 06/01/24 07:22 05/31/24 22:47 06/01/24 07:22 06/01/24 07:22 06/01/24 07:22 FiO2 4 05/31/24 11:24 Oxygen Flow Rate (L/min) 2 Oxygen Delivery Method Nasal Cannula Weight: 89 kg Body Mass Index (BMI) 29.8 Intake & Output: Intake and Output for Last 24 Hours 05/30/24 05/31/24 06/01/24 23:59 23:59 23:59 Intake Total 3807 / 3807 3746.25 / 3746.25 Output Total 4050 / 4050 5000 / 5000 Balance -243 / -243 -1253.75 / -1253.75 Lab / Micro Data 06/01/24 04:20 06/01/24 04:20 Labs: Laboratory Results - last 24 hr 06/01/24 04:20: WBC 8.8, RBC 4.22 L, Hgb 13.8, Hct 46.4, MCV 110.0 H, MCH 32.7 H , MCHC 29.7 L, RDW Std Deviation 69.6 H, RDW Coeff of Babatunde 17.0 H, Plt Count 145 L, MPV 10.9, Immature Gran % (Auto) 0.700, Neut % (Auto) 79.0 H, Lymph % (Auto) 10.1 L, [place] % (Auto) 5.2, Eos % (Auto) 4.8, Baso % (Auto) 0.2, Absolute Neuts (auto) 7.0, Absolute Lymphs (auto) 0.89, Nucleated RBC % 0 Micro: Microbiology 05/23/24 11:00 Blood Culture (Wb) - Anticubital Right Blood Culture - Preliminary 05/23/24 11:00 Blood Culture (Wb) - Right Hand Blood Culture - Final No growth in 5 days. 05/23/24 12:20 Sputum, Induced/Lukens Gram Stain - Final 05/23/24 12:20 Sputum, Induced/Lukens Respiratory Culture - Final Presumptive C albicans 05/23/24 11:20 Urine, Clean Catch Urine Culture - Final Gram negative behzad 05/23/24 11:20 Mucosa - Nose SARS-CoV-2, Influenza & RSV (PCR) - Final Rhythm Strip Rhythm Strip: Sinus Rhythm Rate: 95 Ectopy: None Physical Exam Const alert and no apparent distress Constitutional Narrative: up in chair. no respiratory distress. no conversational dyspnea. HEENT head/scalp atraumatic and moist oral mucous membranes Resp normal respiratory effort and no retractions Cardio regular rate and regular rhythm Neuro Sensorium / Orientation: awake Assessment & Plan Assessment/Plan (1) Acute respiratory failure with hypoxia and hypercapnia: PLAN: Extubated 05/28 2/2 COPD exacerbation + CHF + pneumonia (aspiration) amp/SB and vancomycin completed for pneumonia (2) Metabolic encephalopathy: PLAN: Toxic metabolic encephalopathy 2/2 CO2 narcosis plus underlying psychiatric history. Plus, psychiatric medications. [place] level WNL on admission. Given concern for DI, it has been discontinued. Will dc olanzapine, though it is unclear if he is actually experiencing extrapyramidal symptoms, somnolence from it; until further clarification of his mental status changes, will discontinue for now. EEG showed severe diffuse encephalopathy. No epileptiform discharges. MRI brain showed no acute abnormality. Mild patchy deep white matter signal alterations. No additional work up per neurology. (3) Hypernatremia: PLAN: Improving. 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 Received DDAVP 2mg on 05/28 and 05/29. But did not provide much improvement. Still on D5W. Ideally, patient will need to increase his overall intake to stabilize his sodium. DW Dr. Gamez, recommending HCTZ 25mg/d, which was started 06/01. PLAN: Plan Chronic conditions: * Venous stasis dermatitis * schizophrenia: Zyprexa and lithium held. * obesity class I * COPD: stable. VTE prophylaxis: enoxaparin. Disposition: to [facility] when medically stable. Charges/Coding Visit Charges Inpatient E&M: 44200 Subs Hosp L2
[2024-06-01 08:06] LABS: Anion Gap 12 (5-15); BUN 29 mg/dL (4-19); BUN/Creat Ratio 18.2 RATIO (10-20); Calcium,Total 9.2 mg/dL (7.6-11.0); Carbon Dioxide 20.2 mmol/L (21.0-32.0); Chloride 117 mmol/L (98-108); Creatinine, Serum 1.59 mg/dL (0.70-1.20); EST Glomerular Filtration Rate 49 (>60); Estimated Creatinine Clearance 52.22 ml/min (50-250); Glucose 101 mg/dL (70-99); Potassium 4.9 mmol/L (3.3-5.1); Sodium Level 149 mmol/L (133-145)
[2024-06-01] MEDS: Enoxaparin 40 MG/0.4 ML Syringe SC (09:40)
[2024-06-01] MEDS: Montelukast 10 MG Tablet PO (09:41)
[2024-06-01] MEDS: Pantoprazole Sodium 40 MG in 0.9% Normal Saline (100mL MB+) 100 ML 330 MG IV ×2 (09:42→19:52)
[2024-06-01] MEDS: hydroCHLOROthiazide 25 MG Tablet PO (09:46)
[2024-06-01] MEDS: Dextrose 5%-Water (1000mL Bag) 1,000 ML 75 ML IV (09:47)
[2024-06-01 09:58] LABS: Vancomycin, Trough Level 14.7 ug/mL (5.0-15.0)
[2024-06-01 10:22] VITALS: BP 124/70; PULSE 86; RESP 20; TEMP 36.4; O2SAT 98
[2024-06-01 13:23] VITALS: PULSE 84; RESP 20
[2024-06-01 15:00] VITALS: BP 125/71; PULSE 75; RESP 18; TEMP 37; O2SAT 93
[2024-06-01 19:02] VITALS: PULSE 88; RESP 38; O2SAT 91
[2024-06-01] MEDS: Cholecalciferol (VIT D3) 25 MCG TABLET (1,000 UNITS) 50 MCG PO (19:44)
[2024-06-01] MEDS: Atorvastatin Calcium 10 MG Tablet PO (19:45)
[2024-06-01 20:50] VITALS: BP 116/72; PULSE 78; RESP 18; TEMP 36.1; O2SAT 94
[2024-06-02] VITALS (10 sets, daily range): BP systolic 111–141; BP diastolic 70–79; PULSE 82–91; RESP 18–38; TEMP 36.6–36.9; O2SAT 90–97; BMI 30.3
[2024-06-02] MEDS: Ipratropium/Albuterol Sulfate 3 ML AMPUL.NEB INHALATION ×2 (01:36→07:07)
[2024-06-02 06:52] LABS: Anion Gap 12 (5-15); BUN 26 mg/dL (4-19); BUN/Creat Ratio 15.8 RATIO (10-20); Calcium,Total 9.6 mg/dL (7.6-11.0); Carbon Dioxide 17.8 mmol/L (21.0-32.0); Chloride 115 mmol/L (98-108); Creatinine, Serum 1.66 mg/dL (0.70-1.20); EST Glomerular Filtration Rate 46 (>60); Estimated Creatinine Clearance 50.38 ml/min (50-250); Glucose 102 mg/dL (70-99); Potassium 4.4 mmol/L (3.3-5.1); Sodium Level 145 mmol/L (133-145)
[2024-06-02] MEDS: Budesonide Respules 0.5 MG/2 ML AMPUL.NEB. INHALATION (07:07)
--- NOTE | 2024-06-02 09:06 | CASEMGMT ---
SW sent updates to [facility] and asked that they start pre-cert for patient. Maliha Infante [employer]
[2024-06-02] MEDS: Montelukast 10 MG Tablet PO (10:26)
[2024-06-02] MEDS: hydroCHLOROthiazide 25 MG Tablet PO (10:26)
[2024-06-02] MEDS: Enoxaparin 40 MG/0.4 ML Syringe SC (10:26)
[2024-06-02] MEDS: 0.9% Saline Lock 10 ML Syringe IV ×2 (10:31→22:02)
[2024-06-02] MEDS: Pantoprazole Sodium 40 MG in 0.9% Normal Saline (100mL MB+) 100 ML 330 MG IV ×2 (10:37→21:05)
--- NOTE | 2024-06-02 12:04 | PCM.PN.REN ---
Documented by User: MARY Warren 06/02/24 12:30 Subjective Subjective Sitting in chair. Clinically looking better. No overnight events. States that he is thirsty. Objective Data Objective Data Vital Signs: Vital Signs Temp Pulse Resp BP Pulse Ox O2 Del Method O2 Flow Rate 98.3 F 84 20 H 111/74 94 Nasal Cannula 2 06/02/24 10:20 06/02/24 10:20 06/02/24 10:20 06/02/24 10:20 06/02/24 10:20 06/02/24 10:20 06/02/24 10:20 FiO2 4 05/31/24 11:24 Oxygen Flow Rate (L/min) 2 Oxygen Delivery Method Nasal Cannula Weight: 90.4 kg Body Mass Index (BMI) 30.3 Intake & Output: Intake and Output for Last 24 Hours 05/31/24 06/01/24 06/02/24 23:59 23:59 23:59 Intake Total 3746.25 / 3746.25 3018.75 / 3018.75 550 / 550 Output Total 5000 / 5000 4300 / 4300 2150 / 2150 Balance -1253.75 / -1253.75 -1281.25 / -1281.25 -1600 / -1600 Lab / Micro Data 06/01/24 04:20 06/02/24 06:20 Labs: Laboratory Results - last 24 hr 06/02/24 06:20: Sodium 145, Potassium 4.4, Chloride 115 H, Carbon Dioxide 17.8 L, Anion Gap 12, BUN 26 H, Creatinine 1.66 H, Estim Creat Clear Calc 50.38, Est GFR (MDRD) Non-Af 46 L, BUN/Creatinine Ratio 15.8, Glucose 102 H, Calcium 9.6 Micro: Microbiology 05/23/24 11:00 Blood Culture (Wb) - Anticubital Right Blood Culture - Preliminary 05/23/24 11:00 Blood Culture (Wb) - Right Hand Blood Culture - Final No growth in 5 days. 05/23/24 12:20 Sputum, Induced/Lukens Gram Stain - Final 05/23/24 12:20 Sputum, Induced/Lukens Respiratory Culture - Final Presumptive C albicans 05/23/24 11:20 Urine, Clean Catch Urine Culture - Final Gram negative behzad 05/23/24 11:20 Mucosa - Nose SARS-CoV-2, Influenza & RSV (PCR) - Final Rhythm Strip Rhythm Strip: Sinus Rhythm Rate: 95 Ectopy: None Physical Exam Narrative Alert to name and place, no apparent distress, more alert today S1, S2, RRR Lung sounds clear anteriorly Abdomen soft, rounded Trace non-pitting edema bilateral lower legs with severe venous stasis dermatitis noted bilaterally Indwelling Gudino with clear yellow urine in bag Assessment & Plan Assessment/Plan (1) Hypernatremia: (2) NILESH (acute kidney injury): PLAN: Plan 64-year-old male with past medical history significant for COPD, bipolar and schizophrenia who presented emergency room with complaints of shortness of breath admitted for acute hypoxic respiratory failure and now on ventilator support. Nephrology consulted in view of rising creatinine and patient with history of lithium use (home dose 600 mg daily). - NILESH on possible CKD stage IIIa: baseline creatinine has been ranging around 1.1 to 1.4 mg/dL. 12/13/2023 serum creatinine 1.33, 04/21/2024 creatinine 1.48. On admission creatinine 1.30. Serum creatinine has been stable and ranging around 1.4 to 1.6 mg/dL. Overall renal function remaining stable. Serum bicarb and potassium normal. [place] level on admission normal at 1.01. Has gudino. No acute indication for [employer]. -Hypernatremia with polyuria; lithium induced nephrogenic DI; sodium was 131 on admission. Urine output began to increase after started on Lasix 40 mg IV twice daily and patient became polyuric with UOP 6.7L. Serum sodium peaked at 170. Patient did receive total of 2 doses DDAVP. Off Lasix. Patient was on D5W. Sodium slowly improving daily. Today serum sodium is at 145, now off IV fluids altogether. Does not need any further DDAVP. He is on hydrochlorothiazide. Patient is on supervised diet with thickened liquids. He does not need to restrict any fluids. BMP ordered for am. Continue strict I&O. Assessment and plan reviewed with Dr. Steven. Documented by User: Dr. Patito Steven MD 06/02/24 15:05 Objective Data Lab / Micro Data 06/01/24 04:20 06/02/24 06:20 Assessment & Plan Assessment/Plan (1) Hypernatremia: (2) NILESH (acute kidney injury): PLAN: Plan 64-year-old male with past medical history significant for COPD, bipolar and schizophrenia who presented emergency room with complaints of shortness of breath admitted for acute hypoxic respiratory failure and now on ventilator support. Nephrology consulted in view of rising creatinine and patient with history of lithium use (home dose 600 mg daily). - NILESH on possible CKD stage IIIa: baseline creatinine has been ranging around 1.1 to 1.4 mg/dL. 12/13/2023 serum creatinine 1.33, 04/21/2024 creatinine 1.48. On admission creatinine 1.30. Serum creatinine has been stable and ranging around 1.4 to 1.6 mg/dL. Overall renal function remaining stable. Serum bicarb and potassium normal. [place] level on admission normal at 1.01. Has gudino. No acute indication for [employer]IST. -Hypernatremia with polyuria; lithium induced nephrogenic DI; sodium was 131 on admission. Urine output began to increase after started on Lasix 40 mg IV twice daily and patient became polyuric with UOP 6.7L. Serum sodium peaked at 170. Patient did receive total of 2 doses DDAVP. Off Lasix. Patient was on D5W. Sodium slowly improving daily. Today serum sodium is at 145, now off IV fluids altogether. Does not need any further DDAVP. He is on hydrochlorothiazide. Patient is on supervised diet with thickened liquids. He does not need to restrict any fluids. BMP ordered for am. Continue strict I&O. Assessment and plan reviewed with Dr. Steven. Addendum Cr stable. Sodium better Li use for many years. Li has been stopped. 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 without psychiatry input I am not comfortable stopping Li. dw Dr Collins. NDI is not a reversible condition so it will not serve any benefit from NDI standpoint to stop Li. resumption of Li as per primary. ok to make dc plans. let patient drink as needed.
--- NOTE | 2024-06-02 12:13 | PCM.PN.HOSP ---
Reason for Visit Reason for Visit: Diagnoses Hyperosmolality and hypernatremia (05/23/24) Metabolic encephalopathy (05/23/24) Unspecified diastolic (congestive) heart failure (05/23/24) Venous insufficiency (chronic) (peripheral) (05/23/24) Chronic obstructive pulmonary disease with (acute) exacerbation (05/23/24) Acute respiratory failure with hypoxia (05/23/24) Acute respiratory failure with hypercapnia (05/23/24) Acute kidney failure, unspecified (05/23/24) Subjective Subjective Saw patient at bedside this morning. Patient was sitting up comfortably in bedside chair and in no acute distress. He was answering most questions appropriately, did have some tangential speech but appears this may be his baseline. His son and [id number] were present and noted that he does appear continually improved on a daily basis. Patient denies any pain or discomfort today. He is hoping to be discharged from the hospital soon. No other new concerns at this time. Objective Data Objective Data Vital Signs: Vital Signs Temp Pulse Resp BP Pulse Ox O2 Del Method O2 Flow Rate 98.3 F 84 20 H 111/74 94 Nasal Cannula 2 06/02/24 10:20 06/02/24 10:20 06/02/24 10:20 06/02/24 10:20 06/02/24 10:20 06/02/24 10:20 06/02/24 10:20 FiO2 4 05/31/24 11:24 Oxygen Flow Rate (L/min) 2 Oxygen Delivery Method Nasal Cannula Weight: 90.4 kg Body Mass Index (BMI) 30.3 Intake & Output: Intake and Output for Last 24 Hours 05/31/24 06/01/24 06/02/24 23:59 23:59 23:59 Intake Total 3746.25 / 3746.25 3018.75 / 3018.75 550 / 550 Output Total 5000 / 5000 4300 / 4300 2150 / 2150 Balance -1253.75 / -1253.75 -1281.25 / -1281.25 -1600 / -1600 Lab / Micro Data 06/01/24 04:20 06/02/24 06:20 Labs: Laboratory Results - last 24 hr 06/02/24 06:20: Sodium 145, Potassium 4.4, Chloride 115 H, Carbon Dioxide 17.8 L, Anion Gap 12, BUN 26 H, Creatinine 1.66 H, Estim Creat Clear Calc 50.38, Est GFR (MDRD) Non-Af 46 L, BUN/Creatinine Ratio 15.8, Glucose 102 H, Calcium 9.6 Micro: Microbiology 05/23/24 11:00 Blood Culture (Wb) - Anticubital Right Blood Culture - Preliminary 05/23/24 11:00 Blood Culture (Wb) - Right Hand Blood Culture - Final No growth in 5 days. 05/23/24 12:20 Sputum, Induced/Lukens Gram Stain - Final 05/23/24 12:20 Sputum, Induced/Lukens Respiratory Culture - Final Presumptive C albicans 05/23/24 11:20 Urine, Clean Catch Urine Culture - Final Gram negative behzad 05/23/24 11:20 Mucosa - Nose SARS-CoV-2, Influenza & RSV (PCR) - Final Rhythm Strip Rhythm Strip: Sinus Rhythm Rate: 95 Ectopy: None Physical Exam Const alert, oriented x3, no apparent distress and average body habitus Constitutional Narrative: Upper middle-aged male, mildly fatigued and somewhat chronically ill-appearing, otherwise sitting up comfortably in bedside chair, answering questions appropriately with some tangential speech, in no acute distress. General Appearance: cooperative and comfortable HEENT normocephalic, head/scalp atraumatic, hearing grossly normal bilaterally, nasal mucous membranes and turbinates normal and moist oral mucous membranes Eyes PERRL, EOMs intact bilaterally and conjunctivae normal Neck full ROM Chest inspection of chest normal Resp normal respiratory effort, normal air movement, no use of accessory muscles and clear to auscultation bilaterally Cardio regular rate, regular rhythm, no murmurs and peripheral pulses 2+ throughout GI normal to inspection, nondistended, normoactive bowel sounds, soft to palpation, non-tender and non-distended Back/Spine normal ROM Extremity normal to inspection, full ROM and no pedal edema Skin no rashes or lesions noted Psych mental status grossly normal Assessment & Plan Assessment/Plan (1) Encephalopathy acute: (2) Nephrogenic diabetes insipidus: PLAN: Plan Patient is a 64-year-old male who presented to [facility] ED on 05/23/2024 with altered mentation. 1. Acute respiratory failure with hypoxia and hypercapnia, resolved ? [employer] followed. Multifactorial secondary to COPD exacerbation plus aspiration pneumonia plus heart failure. Required intubation on admission. Was successfully extubated on 05/28. Stable on room air at this time. Completed course of Unasyn and vancomycin for pneumonia. No further treatment needed at this time. 2. Toxic metabolic encephalopathy, resolved ? Neurology followed. Suspected secondary to hypercapnia plus psychiatric condition versus psychiatric medications. Intubated on admission as noted above. [place] level was within normal limits on admit. [place] and olanzapine have been held since admission. EEG showed severe diffuse encephalopathy, no epileptiform discharges. MRI brain was unremarkable. No further workup needed per neurology. Patient back to baseline per family at this time. However, they have concern for him having a psychiatric crisis since he has been off his medications, as he has required multiple inpatient psychiatric admissions in the past. Discussed with nephrology on 06/02 and was noted that diabetes insipidus will not worsen if patient restarts lithium. However, as patient is now on hydrochlorothiazide, will start lithium at reduced dose of 300 mg at night. Will restart olanzapine at reduced dose of 10 mg twice daily as well. Monitor closely. 3. Nephrogenic diabetes insipidus with hypernatremia, improving ? Nephrology following. Sodium 131 on admit. Urine output began increased after being started on IV Lasix but Lasix was stopped with continued heavy urine output. Polyuric with up to 6.7 L urine output daily. Serum sodium peaked at 170. Received 2 doses of DDAVP without much improvement. Started on hydrochlorothiazide on 06/01 and D5W with steady improvement in sodium level. Most recent sodium 145 on 06/02. Off IV fluids altogether. No fluid restriction needed. Follow-up a.m. sodium level and continue strict I's and O's. 4. Schizophrenia ? [place] level within normal limits on admit. [place] and olanzapine held on admit as patient was intubated. As noted above, will restart lithium and olanzapine at reduced doses on 06/02. Monitor. 5. Hypertension, hyperlipidemia ? Will hold home amlodipine and spironolactone as patient has been started on hydrochlorothiazide and blood pressures have been normotensive. Continue home statin. 6. GERD ? Continue home PPI. DVT prophylaxis: Lovenox CODE STATUS: Full code, unverified Expected disposition: SNF, medically ready on 06/02, awaiting placement Total clinical time spent by myself addressing the patient's medical issues, reviewing all the data, and collaborating with patient's care team: 35 minutes. Charges/Coding Visit Charges Inpatient E&M: 27019 Subs Hosp L2
[2024-06-02] MEDS: OLANZapine 10 MG Tablet PO (21:06)
[2024-06-02] MEDS: Cholecalciferol (VIT D3) 25 MCG TABLET (1,000 UNITS) 50 MCG PO (21:06)
[2024-06-02] MEDS: Atorvastatin Calcium 10 MG Tablet PO (21:06)
[2024-06-02] MEDS: Lithium Carbonate 300mg Capsule 300 MG PO (21:06)
[2024-06-03] VITALS (8 sets, daily range): BP systolic 100–125; BP diastolic 47–80; PULSE 81–96; RESP 18–28; TEMP 36.4–36.6; O2SAT 89–99; BMI 30.3
[2024-06-03] MEDS: Budesonide Respules 0.5 MG/2 ML AMPUL.NEB. INHALATION (07:12)
[2024-06-03] MEDS: Ipratropium/Albuterol Sulfate 3 ML AMPUL.NEB INHALATION ×2 (07:12→13:02)
[2024-06-03 08:10] LABS: Anion Gap 12 (5-15); BUN 28 mg/dL (4-19); BUN/Creat Ratio 16.5 RATIO (10-20); Calcium,Total 10.4 mg/dL (7.6-11.0); Carbon Dioxide 22.4 mmol/L (21.0-32.0); Chloride 110 mmol/L (98-108); Creatinine, Serum 1.72 mg/dL (0.70-1.20); EST Glomerular Filtration Rate 44 (>60); Estimated Creatinine Clearance 48.67 ml/min (50-250); Glucose 93 mg/dL (70-99); Potassium 4.3 mmol/L (3.3-5.1); Sodium Level 145 mmol/L (133-145)
[2024-06-03] MEDS: Enoxaparin 40 MG/0.4 ML Syringe SC (10:28)
[2024-06-03] MEDS: Montelukast 10 MG Tablet PO (10:29)
[2024-06-03] MEDS: OLANZapine 10 MG Tablet PO ×2 (10:29→22:27)
[2024-06-03] MEDS: hydroCHLOROthiazide 25 MG Tablet PO (10:29)
[2024-06-03] MEDS: Pantoprazole Sodium 40 MG Tablet PO ×2 (10:33→22:26)
--- NOTE | 2024-06-03 11:41 | PCM.PN.HOSP ---
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 Patient was sitting back comfortably in bedside chair, in no acute distress. Was answering questions with short appropriate responses for me. Appears similar today to yesterday. He denies any new pain or discomfort today. Has been eating and drinking well. No other acute concerns at this time. Objective Data Objective Data Vital Signs: Vital Signs Temp Pulse Resp BP Pulse Ox O2 Del Method O2 Flow Rate 97.9 F 81 18 115/58 L 95 Nasal Cannula 1 06/03/24 08:12 06/03/24 08:12 06/03/24 08:12 06/03/24 08:12 06/03/24 08:12 06/03/24 08:15 06/03/24 08:15 FiO2 4 05/31/24 11:24 Oxygen Flow Rate (L/min) 1 Oxygen Delivery Method Nasal Cannula Weight: 90.6 kg Body Mass Index (BMI) 30.3 Intake & Output: Intake and Output for Last 24 Hours 06/01/24 06/02/24 06/03/24 23:59 23:59 23:59 Intake Total 3018.75 / 3018.75 2180 / 2540 960 / 960 Output Total 4300 / 4300 4425 / 4925 800 / 800 Balance -1281.25 / -1281.25 -2245 / -2385 160 / 160 Lab / Micro Data 06/01/24 04:20 06/03/24 07:02 Labs: Laboratory Results - last 24 hr 06/03/24 07:02: Sodium 145, Potassium 4.3, Chloride 110 H, Carbon Dioxide 22.4, Anion Gap 12, BUN 28 H, Creatinine 1.72 H, Estim Creat Clear Calc 48.67 L, Est GFR (MDRD) Non-Af 44 L, BUN/Creatinine Ratio 16.5, Glucose 93, Calcium 10.4 Micro: Microbiology 05/23/24 11:00 Blood Culture (Wb) - Anticubital Right Blood Culture - Preliminary 05/23/24 11:00 Blood Culture (Wb) - Right Hand Blood Culture - Final No growth in 5 days. 05/23/24 12:20 Sputum, Induced/Lukens Gram Stain - Final 05/23/24 12:20 Sputum, Induced/Lukens Respiratory Culture - Final Presumptive C albicans 05/23/24 11:20 Urine, Clean Catch Urine Culture - Final Gram negative behzad 05/23/24 11:20 Mucosa - Nose SARS-CoV-2, Influenza & RSV (PCR) - Final Rhythm Strip Rhythm Strip: Sinus Rhythm Rate: 95 Ectopy: None Physical Exam Const alert, oriented x3, no apparent distress and average body habitus Constitutional Narrative: Upper middle-aged male, somewhat chronically ill-appearing, good energy level, sitting up comfortably in bedside chair, answering questions appropriately with some tangential speech, in no acute distress. General Appearance: cooperative and comfortable HEENT normocephalic, head/scalp atraumatic, hearing grossly normal bilaterally, nasal mucous membranes and turbinates normal and moist oral mucous membranes Eyes PERRL, EOMs intact bilaterally and conjunctivae normal Neck full ROM Chest inspection of chest normal Resp normal respiratory effort, normal air movement, no use of accessory muscles and clear to auscultation bilaterally Cardio regular rate, regular rhythm, no murmurs and peripheral pulses 2+ throughout GI normal to inspection, nondistended, normoactive bowel sounds, soft to palpation, non-tender and non-distended Back/Spine normal ROM Extremity normal to inspection, full ROM and no pedal edema Skin no rashes or lesions noted Psych mental status grossly normal Assessment & Plan Assessment/Plan (1) Encephalopathy acute: (2) Nephrogenic diabetes insipidus: PLAN: Plan Patient is a 64-year-old male who presented to [facility] ED on 05/23/2024 with altered mentation. 1. Acute respiratory failure with hypoxia and hypercapnia, resolved ? 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 Multifactorial secondary to COPD exacerbation plus aspiration pneumonia plus heart failure. Required intubation on admission. Was successfully extubated on 05/28. Stable on room air at this time. Completed course of Unasyn and vancomycin for pneumonia. No further treatment needed at this time. 2. Toxic metabolic encephalopathy, resolved ? Neurology followed. Suspected secondary to hypercapnia plus psychiatric condition versus psychiatric medications. Intubated on admission as noted above. [place] level was within normal limits on admit. [place] and olanzapine have been held since admission. EEG showed severe diffuse encephalopathy, no epileptiform discharges. MRI brain was unremarkable. No further workup needed per neurology. Patient back to baseline per family at this time. However, they have concern for him having a psychiatric crisis since he has been off his medications, as he has required multiple inpatient psychiatric admissions in the past. Discussed with nephrology on 06/02 and was noted that diabetes insipidus will not worsen if patient restarts lithium. However, as patient is now on hydrochlorothiazide, restarted lithium at reduced dose of 300 mg at night and restarted olanzapine at reduced dose of 10 mg twice daily as well. Tolerating reduced dose as well, continue to monitor. 3. Nephrogenic diabetes insipidus with hypernatremia, improving ? Nephrology following. Sodium 131 on admit. Urine output began increased after being started on IV Lasix but Lasix was stopped with continued heavy urine output. Polyuric with up to 6.7 L urine output daily. Serum sodium peaked at 170. Received 2 doses of DDAVP without much improvement. Started on hydrochlorothiazide on 06/01 and D5W with steady improvement in sodium level. Off IV fluids altogether. No fluid restriction needed. Most recent sodium level 145 on 06/03, stable from previous day. Okay for discharge from nephrology standpoint. 4. Schizophrenia ? [place] level within normal limits on admit. [place] and olanzapine held on admit as patient was intubated. As noted above, restarted lithium and olanzapine at reduced doses on 06/02. Monitor. 5. Hypertension, hyperlipidemia ? Will hold home amlodipine and spironolactone as patient has been started on hydrochlorothiazide and blood pressures have been normotensive. Continue home statin. 6. GERD ? Continue home PPI. DVT prophylaxis: Lovenox CODE STATUS: Full code, unverified Expected disposition: SNF, medically ready on 06/02, awaiting placement Total clinical time spent by myself addressing the patient's medical issues, reviewing all the data, and collaborating with patient's care team: 35 minutes. Charges/Coding Visit Charges Inpatient E&M: 64872 Subs Hosp L2
--- NOTE | 2024-06-03 12:59 | CASEMGMT ---
STEVE called patient's daughter in law Sarah. SW let her know we are still waiting on insurance to authorize patient to go to [facility]. STEVE does anticipate hearing today vs tomorrow. Someone will call her and let her know when patient is leaving. Maliha Infante [employer]IR[employer]
--- NOTE | 2024-06-03 18:21 | PCM.PN.REN ---
Subjective Subjective no new events Objective Data Objective Data Vital Signs: Vital Signs Temp Pulse Resp BP Pulse Ox O2 Del Method O2 Flow Rate 98 F 96 18 100/47 L 94 Room Air 1 06/03/24 15:41 06/03/24 15:41 06/03/24 15:41 06/03/24 15:41 06/03/24 15:41 06/03/24 15:45 06/03/24 08:15 FiO2 4 05/31/24 11:24 Oxygen Flow Rate (L/min) 1 Oxygen Delivery Method Room Air Weight: 90.6 kg Body Mass Index (BMI) 30.3 Intake & Output: Intake and Output for Last 24 Hours 06/01/24 06/02/24 06/03/24 23:59 23:59 23:59 Intake Total 3018.75 / 3018.75 2180 / 2540 2160 / 2160 Output Total 4300 / 4300 4425 / 4925 2650 / 2650 Balance -1281.25 / -1281.25 -2245 / -2385 -490 / -490 Lab / Micro Data 06/01/24 04:20 06/03/24 07:02 Labs: Laboratory Results - last 24 hr 06/03/24 07:02: Sodium 145, Potassium 4.3, Chloride 110 H, Carbon Dioxide 22.4, Anion Gap 12, BUN 28 H, Creatinine 1.72 H, Estim Creat Clear Calc 48.67 L, Est GFR (MDRD) Non-Af 44 L, BUN/Creatinine Ratio 16.5, Glucose 93, Calcium 10.4 Micro: Microbiology 05/23/24 11:00 Blood Culture (Wb) - Anticubital Right Blood Culture - Preliminary 05/23/24 11:00 Blood Culture (Wb) - Right Hand Blood Culture - Final No growth in 5 days. 05/23/24 12:20 Sputum, Induced/Lukens Gram Stain - Final 05/23/24 12:20 Sputum, Induced/Lukens Respiratory Culture - Final Presumptive C albicans 05/23/24 11:20 Urine, Clean Catch Urine Culture - Final Gram negative behzad 05/23/24 11:20 Mucosa - Nose SARS-CoV-2, Influenza & RSV (PCR) - Final Rhythm Strip Rhythm Strip: Sinus Rhythm Rate: 95 Ectopy: None Physical Exam Narrative Alert to name and place, no apparent distress, more alert today S1, S2, RRR Lung sounds clear anteriorly Abdomen soft, rounded Trace non-pitting edema bilateral lower legs with severe venous stasis dermatitis noted bilaterally Indwelling [place] with clear yellow urine in bag Assessment & Plan Assessment/Plan (1) Hypernatremia: (2) NILESH (acute kidney injury): PLAN: Plan 64-year-old male with past medical history significant for COPD, bipolar and schizophrenia who presented emergency room with complaints of shortness of breath admitted for acute hypoxic respiratory failure and now on ventilator support. Nephrology consulted in view of rising creatinine and patient with history of lithium use (home dose 600 mg daily). - NILESH on possible CKD stage IIIa: baseline creatinine has been ranging around 1.1 to 1.4 mg/dL. 12/13/2023 serum creatinine 1.33, 04/21/2024 creatinine 1.48. On admission creatinine 1.30. Serum creatinine has been stable and ranging around 1.4 to 1.6 mg/dL. Overall renal function remaining stable -Hypernatremia with polyuria; lithium induced nephrogenic DI; sodium was 131 on admission. Urine output began to increase after started on Lasix 40 mg IV twice daily and patient became polyuric with UOP 6.7L. Serum sodium peaked at 170. Patient did receive total of 2 doses DDAVP. Off Lasix. Patient was on D5W. sodium better. dw hospitalist
[2024-06-03] MEDS: Lithium Carbonate 300mg Capsule 300 MG PO (22:26)
[2024-06-03] MEDS: Atorvastatin Calcium 10 MG Tablet PO (22:26)
[2024-06-03] MEDS: Cholecalciferol (VIT D3) 25 MCG TABLET (1,000 UNITS) 50 MCG PO (22:27)
[2024-06-04 04:00] VITALS: O2SAT 82
[2024-06-04 05:12] VITALS: BMI 30.6
[2024-06-04 07:01] LABS: Hematocrit 46.1 % (40-54); Hemoglobin 14.3 g/dL (13.0-16.5); Mean Corpuscular Hgb 32.3 pg (27.0-32.0); Mean Corpuscular Volume 104.1 fL (80-94); Mean Platelet Vol. 11.1 fl (6.2-12.0); Platelet Count 191 K/mm3 (150-450); RBC Distribution Width CV 16.1 % (11.6-14.6); RBC Distribution Width SD 61.7 fl (35.1-43.9); Red Blood Count 4.43 M/mm3 (4.6-6.2); White Blood Count 7.1 K/mm3 (4.4-11.0)
[2024-06-04 07:26] LABS: Anion Gap 12 (5-15); BUN 31 mg/dL (4-19); BUN/Creat Ratio 17.9 RATIO (10-20); Carbon Dioxide 23.7 mmol/L (21.0-32.0); Chloride 107 mmol/L (98-108); Creatinine, Serum 1.72 mg/dL (0.70-1.20); EST Glomerular Filtration Rate 44 (>60); Estimated Creatinine Clearance 48.85 ml/min (50-250); Glucose 111 mg/dL (70-99); Potassium 4.1 mmol/L (3.3-5.1); Sodium Level 143 mmol/L (133-145)
[2024-06-04 07:48] VITALS: PULSE 99; RESP 18; O2SAT 98
[2024-06-04 08:12] VITALS: BP 122/75; PULSE 81; RESP 16; TEMP 36.6; O2SAT 99
--- NOTE | 2024-06-04 08:58 | CASEMGMT ---
Addendum entered by Elisabet Mcmillan 06/04/24 10:37: [facility] can accept pt when medically ready. STEVE updated. Elisabet Mcmillan DC Planning Asst. Addendum entered by Elisabet Mcmillan 06/04/24 09:27: Physician has chosen to not do a peer to peer. [facility] asked to submit for intermediate loc. Elisabet Mcmillan DC Planning Asst. Original Note: [facility] is offering a peer to peer. [facility] is agreeable to admitting pt under his intermediate ADAN benefits if needed. STEVE updated. Elisabet Mcmillan DC Planning Asst.
[2024-06-04 10:19] LABS: Scan Indicated on CBC? Y/N NO
[2024-06-04] MEDS: Enoxaparin 40 MG/0.4 ML Syringe SC (10:42)
[2024-06-04] MEDS: hydroCHLOROthiazide 25 MG Tablet PO (10:43)
[2024-06-04] MEDS: Montelukast 10 MG Tablet PO (10:43)
[2024-06-04] MEDS: Pantoprazole Sodium 40 MG Tablet PO (10:44)
[2024-06-04] MEDS: OLANZapine 10 MG Tablet PO (10:44)
--- NOTE | 2024-06-04 11:39 | DS.PCM_ITS ---
Providers Date of Admission: 05/23/24 Date of Discharge: 06/04/24 Primary Care Physician: Ingris Chu, MARY Consultations 05/23/24 18:16 Consult: Wet Room Supervisor / Pulmonary Medicine Routine Consulting Provider: Intensivists/Pulmonary Med Reason for Consult: acute respiratory failure EMERGENT Consult: No MD Notified: Yes Date Notified: 05/23/24 Time Notified: 14:35 Method of Notification: Answering Service Method of Consult:: Telemedicine 05/24/24 12:43 Consult: Onc/Wound/supervisor [employer] Routine Comment: Reason for Consult:: bilat feet wounds 05/25/24 11:27 Consult: Infectious Disease Routine Consulting Provider: Romeo Gallardo Reason for Consult: GPR in blood EMERGENT Consult: No MD Notified: Yes Date Notified: 05/25/24 Time Notified: 11:27 Method of Notification: Text 05/25/24 11:36 Consult: Nephrology Routine Consulting Provider: Geena Domingo Reason for Consult: NILESH on CKD3, ON [place] EMERGENT Consult: No MD Notified: Yes Date Notified: 05/25/24 Time Notified: 11:36 Method of Notification: Text Reason For Visit: ACUTE RESPIRATORY FAILURE Diagnosis Discharge Diagnosis (1) Hypernatremia: Status: Acute Code(s): E87.0 - Hyperosmolality and hypernatremia (2) NILESH (acute kidney injury): Status: Acute Code(s): N17.9 - Acute kidney failure, unspecified 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 07/29/16 montelukast 10 mg tablet 10 mg PO DAILY 05/02/18 omega-3 fatty acids-fish oil 300 mg-1,000 mg capsule 2 capsule PO BID deficiency 05/02/18 simvastatin 20 mg tablet (Zocor) 20 mg PO QHS 05/02/18 ammonium lactate 12 % topical cream 1 applic topical BID skin irritation 10/30/23 multivitamin (Daily Multi-Vitamin tablet) 1 tab PO DAILY replacement 12/09/23 acetaminophen 325 mg tablet 650 mg PO Q4H PRN fever or pain 05/23/24 acetaminophen 650 mg rectal suppository 650 mg [place] Q4H PRN pain 05/23/24 aluminum-mag hydroxide-simethicone 400 mg-400 mg-40 mg/5 mL oral susp (Mintox Maximum Strength) 30 ml PO Q4H PRN indigestion 05/23/24 bisacodyl 10 mg rectal suppository 10 mg [place] DAILY PRN CONSTIPATION 05/23/24 cholecalciferol (vitamin D3) 50 mcg (2,000 unit) tablet (D3 DOTS) 50 mcg PO QHS SUPPLEMENT 05/23/24 magnesium hydroxide 400 mg/5 mL oral suspension (Dulcolax (magnesium hydroxide)) 30 ml PO DAILY PRN constipation 05/23/24 melatonin 5 mg tablet 5 mg PO QHS 05/23/24 menthol 10 % topical cream (Biofreeze (menthol)) 1 applic topical Q12H PRN pain 05/23/24 sodium phosphates 19 gram-7 gram/118 mL enema (Fleet Enema) 118 ml [place] BID PRN constipation 05/23/24 trazodone 50 mg tablet 50 mg PO QHS sleep 05/23/24 hydrochlorothiazide 25 mg tablet 25 mg PO DAILY 30 days #0 tabs 06/04/24 lithium carbonate 300 mg capsule 300 mg PO QHS 30 days #0 caps 06/04/24 olanzapine 10 mg tablet 10 mg PO BID 30 days #0 tabs 06/04/24 Hospital Course Operations None Procedures EKG, Intubation, Modified Barium Swallow, Transthoracic echo and - (Chest x-ray, CT brain, MRI brain) Summary of Care Provided Minutes Spent on Discharge: 35 Hospital Course: Patient is a 64-year-old male who presented to [facility] ED on 05/23/2024 with altered mentation. Hospital course as noted below. Patient discharged to extended-care facility in stable condition on 06/04. 1. Acute respiratory failure with hypoxia and hypercapnia, resolved ? 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 Multifactorial secondary to COPD exacerbation plus aspiration pneumonia plus heart failure. Required intubation on admission. Was successfully extubated on 05/28. Stable on room air at this time. Completed course of Unasyn and vancomycin for pneumonia. No further treatment needed at this time. 2. Toxic metabolic encephalopathy, resolved ? Neurology followed. Suspected secondary to hypercapnia plus psychiatric condition versus psychiatric medications. Intubated on admission as noted above. [place] level was within normal limits on admit. [place] and olanzapine have been held since admission. EEG showed severe diffuse encephalopathy, no epileptiform discharges. MRI brain was unremarkable. No further workup needed per neurology. Patient back to baseline per family at this time. However, they have concern for him having a psychiatric crisis since he has been off his medications, as he has required multiple inpatient psychiatric admissions in the past. Discussed with nephrology on 06/02 and was noted that diabetes insipidus will not worsen if patient restarts lithium. However, as patient is now on hydrochlorothiazide, restarted lithium at reduced dose of 300 mg at night and restarted olanzapine at reduced dose of 10 mg twice daily as well. Tolerating reduced doses well, will continue on discharge. 3. Nephrogenic diabetes insipidus with hypernatremia, improving ? Nephrology followed. Sodium 131 on admit. Urine output began increased after being started on IV Lasix but Lasix was stopped with continued heavy urine output. Polyuric with up to 6.7 L urine output daily. Serum sodium peaked at 170. Received 2 doses of DDAVP without much improvement. Started on hydrochlorothiazide on 06/01 and D5W with steady improvement in sodium level. Off IV fluids altogether. No fluid restriction needed. Most recent sodium level 143 on 06/04, stable. Okay for discharge from nephrology standpoint. 4. Schizophrenia ? [place] level within normal limits on admit. [place] and olanzapine held on admit as patient was intubated. As noted above, restarted lithium and olanzapine at reduced doses on 06/02. 5. Hypertension, hyperlipidemia ? Held home amlodipine and spironolactone as patient was started on hydrochlorothiazide and blood pressures were normotensive; will discontinue them on discharge. Continue home statin. 6. GERD ? Continue home PPI. Total clinical time spent by myself addressing the patient's medical issues, reviewing all the data, and collaborating with patient's care team: 35 minutes. Physical Exam Const alert, oriented x3, no apparent distress and average body habitus Constitutional Narrative: Upper middle-aged male, somewhat chronically ill-appearing, good energy level, sitting up comfortably in bedside chair, answering questions appropriately with some tangential speech, in no acute distress. General Appearance: cooperative and comfortable HEENT normocephalic, head/scalp atraumatic, hearing grossly normal bilaterally, nasal mucous membranes and turbinates normal and moist oral mucous membranes Eyes PERRL, EOMs intact bilaterally and conjunctivae normal Neck full ROM Chest inspection of chest normal Resp normal respiratory effort, normal air movement, no use of accessory muscles and clear to auscultation bilaterally Cardio regular rate, regular rhythm, no murmurs and peripheral pulses 2+ throughout GI normal to inspection, nondistended, normoactive bowel sounds, soft to palpation, non-tender and non-distended Back/Spine normal ROM Extremity normal to inspection, full ROM and no pedal edema Skin no rashes or lesions noted Psych mental status grossly normal Weight / BMI Weight Weight: 91.3 kg Body Mass Index (BMI) 30.6 ABG / Lab / Microbiology Data 06/04/24 06:26 06/04/24 06:26 Laboratory: Laboratory Results - last 24 hr 06/04/24 06:26: WBC 7.1, RBC 4.43 L, Hgb 14.3, Hct 46.1, MCV 104.1 H D, MCH 32.3 H, MCHC 31.0 L, RDW Std Deviation 61.7 H, RDW Coeff of Babatunde 16.1 H, Plt Count 191, MPV 11.1, Sodium 143, Potassium 4.1, Chloride 107, Carbon Dioxide 23.7, Anion Gap 12, BUN 31 H, Creatinine 1.72 H, Estim Creat Clear Calc 48.85 L, Est GFR (MDRD) Non-Af 44 L, BUN/Creatinine Ratio 17.9, Glucose 111 H, Calcium 10.0 Microbiology: Microbiology 05/23/24 11:00 Blood Culture (Wb) - Anticubital Right Blood Culture - Final Brevibacterium luteolum 05/23/24 11:00 Blood Culture (Wb) - Right Hand Blood Culture - Final No growth in 5 days. 05/23/24 12:20 Sputum, Induced/Lukens Gram Stain - Final 05/23/24 12:20 Sputum, Induced/Lukens Respiratory Culture - Final Presumptive C albicans 05/23/24 11:20 Urine, Clean Catch Urine Culture - Final Gram negative behzad 05/23/24 11:20 Mucosa - Nose SARS-CoV-2, Influenza & RSV (PCR) - Final D/C Instructions DC O2, CPAP, BIPAP Needs PSN CPAP & BiPAP: BiPAP & CPAP Settings per PSN Mode AVAPS 05/23/24 11:30 Bipap Delivery Device Face Mask 05/23/24 11:30 BiPAP Expiratory Pressure 10 05/23/24 11:30 BiPAP Rate 12 05/23/24 11:30 Fraction of Inspired Oxygen ( 4 05/31/24 11:24 FIO2) Home O2 Discharge instructions: No Meaningful Use Info Meaningful Use Meaningful Use Diagnoses (Choose all that apply): None applicable Ischemic Stroke Statin Dosing Therapy Reference: STATIN DOSE THERAPY REFERENCE: * Patients > 75 years receive moderate or high dose statin therapy. * Patients 75 years or YOUNGER should receive HIGH intensity statin dose unless contraindicated. You will be required to document reason for non-treatment if statin daily dose does not meet guidelines. HIGH DOSE STATIN THERAPY DAILY Atorvastatin > than or = to 40 mg Rosuvastatin > than or = to 20 mg Amlodipine + Atorvastatin > than or = to 2.5/40 mg Ezetimibe + Simvastatin 10/80 mg Simvastatin 80mg Discharge Plan Admission Admit Date/Time: 05/23/24 14:32 Primary Reason for Your Visit: Altered mentation Attending Provider: Robson George Primary Care Provider: Ingris Chu ASBESTOS REMOVER Consulting Providers: Robson George; David Ruvalcaba; Romeo Gallardo; Geena Domingo; Mark Gonzalez Discharge Orders/Prescriptions Prescriptions: New olanzapine 10 mg Tablet 10 mg PO BID 30 Days Qty: 0 2RF lithium carbonate 300 mg Capsule 300 mg PO QHS 30 Days Qty: 0 2RF hydrochlorothiazide 25 mg Tablet 25 mg PO DAILY 30 Days Qty: 0 2RF Continued omeprazole 20 MG capsule 20 mg PO BID fluphenazine decanoate 25 MG/ML solution 25 mg IM Q14D MDD Q 2 WEEKS simvastatin [Zocor] 20 MG tablet 20 mg PO QHS montelukast 10 MG tablet 10 mg PO DAILY omega-3 fatty acids-fish oil 1 EACH capsule 2 capsule PO BID multivitamin [Daily Multi-Vitamin] Tablet 1 tab PO DAILY ammonium lactate 12 % cream 1 applic topical BID trazodone 50 mg tablet 50 mg PO QHS cholecalciferol (vitamin D3) [D3 DOTS] 50 mcg (2,000 unit) tablet 50 mcg PO QHS acetaminophen 650 mg suppository 650 mg [place] Q4H PRN (Reason: pain) acetaminophen 325 mg tablet 650 mg PO Q4H PRN (Reason: fever or pain) Biofreeze (menthol) 10 % cream 1 applic topical Q12H PRN (Reason: pain) bisacodyl 10 mg suppository 10 mg [place] DAILY PRN (Reason: CONSTIPATION) alum-mag hydroxide-simeth [Mintox Maximum Strength] 400-400-40 mg/5 mL suspension 30 ml PO Q4H PRN (Reason: indigestion) Fleet Enema 19-7 gram/118 mL enema 118 ml [place] BID PRN (Reason: constipation) melatonin 5 mg tablet 5 mg PO QHS magnesium hydroxide [Dulcolax (magnesium hydroxide)] 400 mg/5 mL suspension 30 ml PO DAILY PRN (Reason: constipation) Discontinued olanzapine 10 MG tablet 10 mg PO DAILY spironolactone 25 MG tablet 25 mg PO DAILY olanzapine [Zyprexa] 20 MG tablet 20 mg PO QHS amlodipine 5 mg tablet 5 mg PO DAILY lithium carbonate 600 mg capsule 600 mg PO QHS amoxicillin-pot clavulanate 875-125 mg tablet 1 tab PO Q12H Rx Instructions: START ON 05/14/24, TAKE FOR 10 DAYS Referrals / Follow Up: Ingris Chu ASBESTOS REMOVER, ASBESTOS REMOVER-C [Primary Care Provider] - Disposition Disposition (needs filled in before D/C Order can be placed): NonSkilled NH/Intermed Care Charges/Coding Visit Charges Inpatient E&M: 35779 Disch Hosp >30min
--- NOTE | 2024-06-04 11:39 | TREXTCAR_ITS ---
Diet Diet Order/Speech Therapy: 05/30/24 11:02 Diet: Regular - General Food consistency:: Pureed Liquid Consistency:: Honey/Moderately Thick Diet Comments: DIRECT SUPERVISION/FEED, verbally cue for small sips Routine Orders/Code Status Routine Lab Work: BMP (recheck in 5-7 days to monitor sodium level) Code Status: Full Code DC O2, CPAP, BIPAP needs Home O2 Discharge instructions: No Wound(s) all toes: Wound Type: scattered abrasions Therapies Weight Bearing: Full weight bearing Physical Therapy: Eval and Treat Occupational Therapy: Eval and Treat Problem/Diagnosis (1) Hypernatremia: Status: Acute Code(s): E87.0 - Hyperosmolality and hypernatremia (2) NILESH (acute kidney injury): Status: Acute Code(s): N17.9 - Acute kidney failure, unspecified Plan Patient is a 64-year-old male who presented to [facility] ED on 05/23/2024 with altered mentation. Hospital course as noted below. Patient discharged to extended-care facility in stable condition on 06/04. 1. Acute respiratory failure with hypoxia and hypercapnia, resolved ? Neon Tube Bender followed. Multifactorial secondary to COPD exacerbation plus aspiration pneumonia plus heart failure. Required intubation on admission. Was successfully extubated on 05/28. Stable on room air at this time. Completed course of Unasyn and vancomycin for pneumonia. No further treatment needed at this time. 2. Toxic metabolic encephalopathy, resolved ? Neurology followed. Suspected secondary to hypercapnia plus psychiatric condition versus psychiatric medications. Intubated on admission as noted above. [place] level was within normal limits on admit. [place] and olanzapine have been held since admission. EEG showed severe diffuse encephalopathy, no epileptiform discharges. MRI brain was unremarkable. No further workup needed per neurology. Patient back to baseline per family at this time. However, they have concern for him having a psychiatric crisis since he has been off his medications, as he has required multiple inpatient psychiatric admissions in the past. Discussed with nephrology on 06/02 and was noted that diabetes insipidus will not worsen if patient restarts lithium. However, as patient is now on hydrochlorothiazide, restarted lithium at reduced dose of 300 mg at night and restarted olanzapine at reduced dose of 10 mg twice daily as well. Tolerating reduced doses well, will continue on discharge. 3. Nephrogenic diabetes insipidus with hypernatremia, improving ? Nephrology followed. Sodium 131 on admit. Urine output began increased after being started on IV Lasix but Lasix was stopped with continued heavy urine output. Polyuric with up to 6.7 L urine output daily. Serum sodium peaked at 170. Received 2 doses of DDAVP without much improvement. Started on hydroc hlorothiazide on 06/01 and D5W with steady improvement in sodium level. Off IV fluids altogether. No fluid restriction needed. Most recent sodium level 143 on 06/04, stable. Okay for discharge from nephrology standpoint. 4. Schizophrenia ? [place] level within normal limits on admit. [place] and olanzapine held on admit as patient was intubated. As noted above, restarted lithium and olanzapin e at reduced doses on 06/02. 5. Hypertension, hyperlipidemia ? Held home amlodipine and spironolactone as patient was started on hydrochlorothiazide and blood pressures were normotensive; will discontinue them on discharge. Continue home statin. 6. GERD ? Continue home PPI. Total clinical time spent by myself addressing the patient's medical issues, reviewing all the data, and collaborating with patient's care team: 35 minutes. Allergies/Procedures Done in Hospital Allergies codeine Adverse Reaction (Verified 12/08/23 16:08) Upset Stomach haloperidol (From Haldol) Adverse Reaction (Verified 12/08/23 16:08) Abd cramps/diarrhea haloperidol lactate (From Haldol) Adverse Reaction (Verified 12/08/23 16:08) Abd cramps/diarrhea ziprasidone Adverse Reaction (Verified 12/08/23 16:08) Unknown Procedures: EKG, Intubation, Transthoracic Echo and - (Chest x-ray, CT brain, MRI brain, MBSS) Type of Care/Length of Stay Estimated LOS: More Than 30 Days Type of Care Needed: Intermediate Rehab Potential: Fair Prognosis: Fair Additional Orders/Day of Discharge H&P will serve as current which was dated: 05/23/24 Day of Discharge: 06/04/24 Dietary and Speech Recommendations Dietitian Recommendations/Changes: Continue Regular diet with texture/consistency per DIRECTOR PARK to optimize oral intakes. Discharge Plan Admission Admit Date/Time: 05/23/24 14:32 Primary Reason for Your Visit: Altered mentation Attending Provider: Robson George Primary Care Provider: Ingris Chu [employer] Consulting Providers: Robson George; David Ruvalcaba; Romeo Gallardo; Geena Domingo; Mark Gonzalez Discharge Orders/Prescriptions Prescriptions: New olanzapine 10 mg Tablet 10 mg PO BID 30 Days Qty: 0 2RF lithium carbonate 300 mg Capsule 300 mg PO QHS 30 Days Qty: 0 2RF hydrochlorothiazide 25 mg Tablet 25 mg PO DAILY 30 Days Qty: 0 2RF Continued omeprazole 20 MG capsule 20 mg PO BID fluphenazine decanoate 25 MG/ML solution 25 mg IM Q14D MDD Q 2 WEEKS simvastatin [Zocor] 20 MG tablet 20 mg PO QHS montelukast 10 MG tablet 10 mg PO DAILY omega-3 fatty acids-fish oil 1 EACH capsule 2 capsule PO BID multivitamin [Daily Multi-Vitamin] Tablet 1 tab PO DAILY ammonium lactate 12 % cream 1 applic topical BID trazodone 50 mg tablet 50 mg PO QHS cholecalciferol (vitamin D3) [D3 DOTS] 50 mcg (2,000 unit) tablet 50 mcg PO QHS acetaminophen 650 mg suppository 650 mg AK Q4H PRN (Reason: pain) acetaminophen 325 mg tablet 650 mg PO Q4H PRN (Reason: fever or pain) Biofreeze (menthol) 10 % cream 1 applic topical Q12H PRN (Reason: pain) bisacodyl 10 mg suppository 10 mg AK DAILY PRN (Reason: CONSTIPATION) alum-mag hydroxide-simeth [Mintox Maximum Strength] 400-400-40 mg/5 mL suspension 30 ml PO Q4H PRN (Reason: indigestion) Fleet Enema 19-7 gram/118 mL enema 118 ml AK BID PRN (Reason: constipation) melatonin 5 mg tablet 5 mg PO QHS magnesium hydroxide [Dulcolax (magnesium hydroxide)] 400 mg/5 mL suspension 30 ml PO DAILY PRN (Reason: constipation) Discontinued olanzapine 10 MG tablet 10 mg PO DAILY spironolactone 25 MG tablet 25 mg PO DAILY olanzapine [Zyprexa] 20 MG tablet 20 mg PO QHS amlodipine 5 mg tablet 5 mg PO DAILY lithium carbonate 600 mg capsule 600 mg PO QHS amoxicillin-pot clavulanate 875-125 mg tablet 1 tab PO Q12H Rx Instructions: START ON 05/14/24, TAKE FOR 10 DAYS Referrals / Follow Up: Ingris Chu [employer]ER, [employer] [Primary Care Provider] - Disposition Disposition (needs filled in before D/C Order can be placed): NonSkilled NH/Intermed Care
--- NOTE | 2024-06-04 13:06 | CASEMGMT ---
Social Work Precert has been obtained.? Physician updated and pt is ready for discharge today.? 7000 convalescent form completed in [facility] and sent along with discharge orders to [facility] via [facility].? Transportation arranged with Physician ambulance for pickup via wheelchair van.? SW met with pt and they are agreeable to discharge plan as stated above.?DCA and bedside nurse notified of discharge. Disposition:[facility], skilled level of care CLARIBEL Pena
--- NOTE | 2024-06-04 13:40 | NURSING ---
All documentation by nursing aide Leighton Licona reviewed by manager nursing home Karolina QUINTANAN, RN.
--- NOTE | 2024-06-04 14:00 | CASEMGMT ---
Discharge Planning Discharge orders, signed med list, and transport time sent to [facility]. Physicians will transport pt by wheelchair within the hour (between 2-3p). Nursing, SW, pt, his mother, and his son updated. Elisabet Mcmillan DC Planning Asst.
[2024-06-04 14:07] VITALS: BP 127/77; PULSE 98; RESP 18; TEMP 36.8
[2024-06-04 14:25] VITALS: PULSE 98; RESP 18; O2SAT 97
--- NOTE | 2024-06-04 15:09 | NURSING ---
Report called to Radha at [facility] at [phone].
--- NOTE | 2024-06-04 16:03 | NURSING ---
All documentation by nursing informatics analyst Antwon Craig reviewed by nursing informatics analyst Karolina DE LA GARZA, RN.
--- NOTE | 2024-06-04 16:12 | PHA.DC_ITS ---
Pharmacy [place] Med Reconciliation Pharmacy Service has performed discharge medication reconciliation for this patient. The patient's discharge medication list was reviewed for discrepancies and discrepancies were resolved. 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 07/29/16 montelukast 10 mg tablet 10 mg PO DAILY 05/02/18 omega-3 fatty acids-fish oil 300 mg-1,000 mg capsule 2 capsule PO BID deficiency 05/02/18 simvastatin 20 mg tablet (Zocor) 20 mg PO QHS 05/02/18 ammonium lactate 12 % topical cream 1 applic topical BID skin irritation 0 10/30/23 multivitamin (Daily Multi-Vitamin tablet) 1 tab PO DAILY replacement 12/09/23 acetaminophen 325 mg tablet 650 mg PO Q4H PRN fever or pain 05/23/24 acetaminophen 650 mg rectal suppository 650 mg MT Q4H PRN pain 05/23/24 aluminum-mag hydroxide-simethicone 400 mg-400 mg-40 mg/5 mL oral susp (Mintox Maximum Strength) 30 ml PO Q4H PRN indigestion 05/23/24 bisacodyl 10 mg rectal suppository 10 mg MT DAILY PRN CONSTIPATION 05/23/24 cholecalciferol (vitamin D3) 50 mcg (2,000 unit) tablet (D3 DOTS) 50 mcg PO QHS SUPPLEMENT 05/23/24 magnesium hydroxide 400 mg/5 mL oral suspension (Dulcolax (magnesium hydroxide)) 30 ml PO DAILY PRN constipation 05/23/24 melatonin 5 mg tablet 5 mg PO QHS 05/23/24 menthol 10 % topical cream (Biofreeze (menthol)) 1 applic topical Q12H PRN pain 05/23/24 sodium phosphates 19 gram-7 gram/118 mL enema (Fleet Enema) 118 ml MT BID PRN constipation 05/23/24 trazodone 50 mg tablet 50 mg PO QHS sleep 05/23/24 hydrochlorothiazide 25 mg tablet 25 mg PO DAILY 30 days #0 tabs 06/04/24 lithium carbonate 300 mg capsule 300 mg PO QHS 30 days #0 caps 06/04/24 olanzapine 10 mg tablet 10 mg PO BID 30 days #0 tabs 06/04/24
== END 2024-06-04 14:46 | disposition intermediate care facility (04) | DRG 207 ==
LOC: ED 13:57 → ICU 14:42 → PCU 05-29 16:00 → MS3 06-04 00:18
PROVIDERS: Internal Medicine; Internal Medicine Critical Care Medicine; Internal Medicine Nephrology; Internal Medicine Pulmonary Disease; Nurse Practitioner Adult Health; Admitting Provider Hospitalist; Emergency Provider Emergency Medicine; PCP Nurse Practitioner Adult Health; Visit Provider Hospitalist
DX: J96.01 Acute respiratory failure with hypoxia (principal); J69.0 Pneumonitis due to inhalation of food and vomit; G92.8 Other toxic encephalopathy; I50.31 Acute diastolic (congestive) heart failure; E87.0 Hyperosmolality and hypernatremia; E87.1 Hypo-osmolality and hyponatremia; J44.1 Chronic obstructive pulmonary disease with (acute) exacerbation; E66.2 Morbid (severe) obesity with alveolar hypoventilation; I13.0 Hypertensive heart and chronic kidney disease with heart failure and stage 1 through stage 4 chronic kidney disease, or unspecified chronic kidney disease; N25.1 Nephrogenic diabetes insipidus; N17.9 Acute kidney failure, unspecified; R13.12 Dysphagia, oropharyngeal phase; N18.31 Chronic kidney disease, stage 3a; F20.9 Schizophrenia, unspecified; K21.9 Gastro-esophageal reflux disease without esophagitis; J96.02 Acute respiratory failure with hypercapnia; E78.5 Hyperlipidemia, unspecified; F17.210 Nicotine dependence, cigarettes, uncomplicated; I87.2 Venous insufficiency (chronic) (peripheral); F31.9 Bipolar disorder, unspecified; R53.81 Other malaise; E66.811 Obesity, class 1; T43.595A Adverse effect of other antipsychotics and neuroleptics, initial encounter; Z68.34 Body mass index [BMI] 34.0-34.9, adult; Z79.899 Other long term (current) drug therapy
CPT/HCPCS: 31500; 31720; 36415; 36600; 51702; 70450; 70551; 71045; 74230; 80048; 80053; 80178; 80202; 80307; 81001; 82436; 82550; 82570; 82803; 82962; 83605; 83880; 83935; 84133; 84145; 84156; 84300; 84478; 84484; 85025; 85027; 85610; 85730; 86140; 87040; 87070; 87077; 87086; 87088; 87205; 87631; 92526; 92610; 92611; 93005; 93306; 94002; 94003; 94640; 94660; 94668; 94762; 95819; 97110; 97116; 97163; 97167; 97530; 97535; 97802; 97803; 99252; 99285; Q9957; A4216; G0463; J0295; J1940; J2597

== ENCOUNTER → 2024-06-06 | Outpatient (REF) | payer MEDICARE, MEDICAID, SELFPAY ==
[2024-06-06 08:37] LABS: Cholesterol 111 mg/dL (<=200); High Density Lipoprotein 25 mg/dL; Low Density Lipoprotein Calc. 50 mg/dL; Triglycerides 182 mg/dL; Very Low Density Lipoprotein 36 mg/dL (5-40); cholesterol:hdl ratio screen 4.42
[2024-06-06 08:38] LABS: Anion Gap 11 (5-15); BUN 33 mg/dL (4-19); BUN/Creat Ratio 16.4 RATIO (10-20); Calcium,Total 9.2 mg/dL (7.6-11.0); Carbon Dioxide 24.7 mmol/L (21.0-32.0); Chloride 98 mmol/L (98-108); Creatinine, Serum 2.04 mg/dL (0.70-1.20); EST Glomerular Filtration Rate 36 (>60); Glucose 106 mg/dL (70-99); Potassium 4.1 mmol/L (3.3-5.1); Sodium Level 134 mmol/L (133-145)
[2024-06-06 12:49] LABS: Hemoglobin A1c 5.6 % (<=5.6)
== END ==
LOC: OLS.SW 06:00
PROVIDERS: PCP Nurse Practitioner Adult Health; Visit Provider Family Medicine
DX: J44.9 Chronic obstructive pulmonary disease, unspecified (principal); I10 Essential (primary) hypertension; Z79.899 Other long term (current) drug therapy
CPT/HCPCS: 36415; 80048; 80061; 83036

== ENCOUNTER → 2024-06-08 23:30 | Outpatient (REF) | payer MEDICARE, MEDICAID, SELFPAY ==
[2024-06-09 10:38] LABS: Microalbumin,Random Urine 76.3 mg/L (NO RANGE EST.); Microalbumin:Creatinine Ratio 1364.9 mg/g CRE
== END ==
LOC: OLS.SW 23:30
PROVIDERS: PCP Nurse Practitioner Adult Health; Visit Provider Family Medicine
DX: N13.9 Obstructive and reflux uropathy, unspecified (principal)
CPT/HCPCS: 82043; 82570

== ENCOUNTER → 2024-07-09 | Outpatient (REF) | payer MEDICARE, MEDICAID, SELFPAY ==
[2024-07-09 09:31] LABS: Anion Gap 9 (5-15); BUN 9 mg/dL (4-19); BUN/Creat Ratio 7.1 RATIO (10-20); Calcium,Total 9.6 mg/dL (7.6-11.0); Carbon Dioxide 28.5 mmol/L (21.0-32.0); Chloride 103 mmol/L (98-108); Creatinine, Serum 1.29 mg/dL (0.70-1.20); EST Glomerular Filtration Rate 63 (>60); Glucose 95 mg/dL (70-99); Potassium 4.7 mmol/L (3.3-5.1); Sodium Level 140 mmol/L (133-145)
== END ==
LOC: OLS.SW 07:52
PROVIDERS: PCP Nurse Practitioner Adult Health; Visit Provider Family Medicine
DX: J44.9 Chronic obstructive pulmonary disease, unspecified (principal); I10 Essential (primary) hypertension
CPT/HCPCS: 36415; 80048

== ENCOUNTER → 2024-07-16 05:00 | Outpatient (REF) | payer MEDICARE, MEDICAID, SELFPAY ==
[2024-07-16 09:51] LABS: Anion Gap 8 (5-15); BUN 12 mg/dL (4-19); BUN/Creat Ratio 9.3 RATIO (10-20); Calcium,Total 9.7 mg/dL (7.6-11.0); Carbon Dioxide 29.3 mmol/L (21.0-32.0); Chloride 101 mmol/L (98-108); Creatinine, Serum 1.24 mg/dL (0.70-1.20); EST Glomerular Filtration Rate 66 (>60); Glucose 101 mg/dL (70-99); Potassium 4.9 mmol/L (3.3-5.1); Sodium Level 139 mmol/L (133-145)
== END ==
LOC: OLS.SW 05:00
PROVIDERS: PCP Nurse Practitioner Adult Health; Visit Provider Family Medicine
DX: J44.9 Chronic obstructive pulmonary disease, unspecified (principal)
CPT/HCPCS: 36415; 80048

== ENCOUNTER → 2024-07-23 04:00 | Outpatient (REF) | payer MEDICARE, MEDICAID, SELFPAY ==
[2024-07-23 07:37] LABS: Anion Gap 11 (5-15); BUN 8 mg/dL (4-19); BUN/Creat Ratio 7.5 RATIO (10-20); Calcium,Total 9.4 mg/dL (7.6-11.0); Carbon Dioxide 26.6 mmol/L (21.0-32.0); Chloride 102 mmol/L (98-108); Creatinine, Serum 1.12 mg/dL (0.70-1.20); EST Glomerular Filtration Rate 74 (>60); Glucose 98 mg/dL (70-99); Potassium 4.2 mmol/L (3.3-5.1); Sodium Level 140 mmol/L (133-145)
== END ==
LOC: OLS.SW 04:00
PROVIDERS: PCP Nurse Practitioner Adult Health; Referring Provider Family Medicine; Visit Provider Family Medicine
DX: I10 Essential (primary) hypertension (principal)
CPT/HCPCS: 36415; 80048

== ENCOUNTER → 2024-07-30 | Outpatient (REF) | payer MEDICARE, MEDICAID, SELFPAY ==
[2024-07-30 11:00] LABS: Anion Gap 10 (5-15); BUN 12 mg/dL (4-19); BUN/Creat Ratio 10.8 RATIO (10-20); Calcium,Total 9.6 mg/dL (7.6-11.0); Carbon Dioxide 27.5 mmol/L (21.0-32.0); Chloride 102 mmol/L (98-108); Creatinine, Serum 1.11 mg/dL (0.70-1.20); EST Glomerular Filtration Rate 75 (>60); Glucose 97 mg/dL (70-99); Potassium 4.6 mmol/L (3.3-5.1); Sodium Level 139 mmol/L (133-145)
== END ==
LOC: OLS.SW 05:00
PROVIDERS: PCP Nurse Practitioner Adult Health; Visit Provider Family Medicine
DX: G20.C Parkinsonism, unspecified (principal); G93.41 Metabolic encephalopathy
CPT/HCPCS: 36415; 80048

== ENCOUNTER → 2024-10-02 | Outpatient (REF) | payer MEDICARE, MEDICAID, SELFPAY ==
[2024-10-02 09:03] LABS: Lithium 0.74 mmol/L (0.60-1.20)
== END ==
LOC: OLS.SW 05:00
PROVIDERS: PCP Nurse Practitioner Adult Health; Visit Provider Internal Medicine
DX: Z79.899 Other long term (current) drug therapy (principal)
CPT/HCPCS: 36415; 80178

== ENCOUNTER → 2025-02-12 05:00 | Outpatient (REF) | payer MEDICARE, MEDICAID, SELFPAY ==
--- OUTSIDE RECORDS SUMMARY | 2025-02-12 04:08 | XMS RPT_ITS | CCD ---
Author Organization [facility] Care Team Providers Care C Java Developer Name Role Phone RENETTA LAST Unavailable Unavailable Anastasia CRISTINA, Holden Gore Primary Care Provider Vlad OROZCO, LOGGING TRACTOR OPERATOR-C [facility] Primary Care [facility] er Dr. Korey Junior Other Provider Cara OROZCO, LOGGING TRACTOR OPERATOR-C Eli E Attending Provider [phone] Cara OROZCO, LOGGING TRACTOR OPERATOR-C Eli E Referring Provider Vlad OROZCO, LOGGING TRACTOR OPERATOR-C [facility] Primary [facility] er Vlad OROZCO, LOGGING TRACTOR OPERATOR-C [facility] Referring Provider ROLLY Alarcon Attending Provider ROLLY Alarcon Other Provider Vlad OROZCO-C, [facility] Primary Care Provider Sang Zhou Attending Provider Dr. Dinorah Mcgee MD Attending Provider Dr. Aldair Fagan MD Attending Provider Unavail Dr. Aldair Cabral MD Referring Provider Unavail Dr. Dinorah Acosta MD Referring Provider Dr. Bret Craig MD Emergency Provider Dr. Robson George DO Admit Provider Dr. Robson George DO Attending Provider Vlad LOGGING TRACTOR OPERATOR-C, [facility] Primary Care Provider Sang Zhou Attending Provider Unavailable Dr. Dinorah Salguero MD Attending Provider Tiff Woods MD, Dr. Quinteros Attending Provider Unavail freya Woods MD, Dr. Quinteros Referring Provider Unavail freya Salguero MD, Dr. Copeland Referring Provider Unavailjoana Nunes MD, Dr. Queen Emergency Provider Doris ORLANDO, Dr. Chance Admit Provider Doris ORLANDO, Dr. Chance Attending Provider Doris ORLANDO, Dr. Chance Other Provider Jordon CRISTINA, Dr. Hernandez Other Provider Sami CRISTINA, Dr. Walters Other Provider Chayo CRISTINA, Dr. Seay Other Provider Carlos ORLANDO, Dr. Flores Other Provider Jordon CRISTINA, Dr. Hernandez Attending Provider Gillian CRISTINA, Dr. Parikh Other Provider Jazmine CRISTINA, Dr. Hsu Other Provider Adam CRISTINA, Dr. Skaggs Other Provider Jose ORLANDO, Dr. Clay Other Provider Salome CRISTINA, Dr. Marques Aguirre Other Provider Padma CRISTINA, Dr. Espinosa Other Provider [phone] Antionette CRISTINA, Dr. Almeida Other Provider Gabriel CRISTINA, Dr. Roberson Other Provider [phone] Rhoda CRISTINA, Dr. Lu Other Provider Alcides CRISTINA, Dr. Love Other Provider Dr. Dominic Bear MD Other Provider [phone] Aylin CRISTINA, Dr. Bradley Other Provider [phone] Erickson Phelps MD Other Provider Unavailabl amina Jaramillo MD, Dr. Navarro Other Provider Shanelle CRISTINA, Dr. Vines Other Provider Theresa CRISTINA, Dr. Savage Other Provider [phone] Justin CRISTINA, Dr. Shafer Other Provider Brigida ORLANDO, Dr. Mcnamara Other Provider Eugenie CRISTINA, Dr. Barnhart Other Provider Navarro CRISTINA, Dr. Cloud Other Provider Maxim ORLANDO, Dr. Gray Other Provider Jong CRISTINA, Dr. Licea Other Provider Kirby CRISTINA, Dr. Falcon Other Provider [phone] Matias CRISTINA, Dr. De La Paz Attending Provider Mike CRISTINA, Dr. Higgins Other Provider Kerry CRISTINA, Dalia Other Provider Mary CRISTINA, Safia Other Provider Lien CRISTINA, Roman Other Provider [phone] Pa CRISTINA, Elena Other Provider Chalino CRISTINA, Dr. Lazcano Other Provider [phone] Hema MS, Carrington Other Provider Jayant CRISTINA, Dr. Reed Other Provider ARLEEN CRISTINA, KEE Other Provider Diego CRISTINA, Tammie Other Provider [phone] Jackelyn CRISTINA, Dr. Alicea Other Provider [phone] Benjamin Cobian MD Other Provider Unavailable Quiana CRISTINA, Ghada Other Provider Unavailable Dr. Kaye Zimmerman DO Other Provider Yuri CRISTINA, Dr. Cabrera Other Provider Darrell CRISTINA, Dr. Rios Other Provider Zack CRISTINA, Dr. Irizarry Other Provider [phone] Malcom CRISTINA, Dr. Espinoza Other Provider Anne CRISTINA, Dr. Carrion Other Provider [phone] Howard CRISTINA, Dr. Santoyo Other Provider [phone] Leah CRISTINA, Dr. Emy Dueñas Other Provider Nasir CRISTINA, Dr. Oliveira Other Provider Nabor CRISTINA, Dr. Pike Other Provider [phone] Kenny CRISTINA, Dr. Perez Other Provider Chad CRISTINA, Dr. Mendiola Other Provider Unavailable Penelope CRISTINA, Michele Other Provider Unavailable Dr. Mark Gonzalez DO Attending Provider Dr. Obed Garcia DO Attending Provider Carlos ORLANDO, Dr. Flores Referring Provider Vlad LOGGING TRACTOR OPERATOR-C, [facility] Provider Chuck CRISTINA, Dr. Quinteros Attending Provider Unavail able Jose M CRISTINA, Dr. Copeland Attending Provider Unavaila ble Vlad LOGGING TRACTOR OPERATOR-C, [facility] Primary Care Physician Jose M CRISTINA, Dr. Copeland Attending Physician Unavail able Kaye Tidwell Attending Physician [phone] Aldair Woods DO Referring Provider Vlad LOGGING TRACTOR OPERATOR, [facility] Unavaila ble Brain Salcedo Attending Unavailable Vlad LOGGING TRACTOR OPERATOR, [facility] Unavaila Robson Mireles Consulting Unavailable Robson George Attending Unavailable Robson George Admitting Unavailable Jordon, David Consulting Unavailable Sami, Romeo Consulting Unavailable Voroshilova, Geena Consulting Unavailable Ariadnappgricelda, Mark Consulting Unavailable Vlad LOGGING TRACTOR OPERATOR, [facility] Unavaila ble Dinorah Lopez Attending Unavailable Aldair Camacho Attending Unavailable Vlad LOGGING TRACTOR OPERATOR, [facility] Unavaila Aldair Crabtree Attending Unavailable Vlad LOGGING TRACTOR OPERATOR, [facility] Unavaila ble Aldair Camacho Attending Unavailable Vlad LOGGING TRACTOR OPERATOR, [facility] Unavaila ble Carlos Mark Attending Unavailable Vlad LOGGING TRACTOR OPERATOR, [facility] Unavaila ble Robson George Admitting Unavailable Robson George Consulting Unavailable Jordon, David Consulting Unavailable Sami, Romeo Consulting Unavailable Voroshilova, Geena Consulting Unavailable Mark Gonzalez Consulting Unavailable Kaye Alarcon Attending Unavailable Aldair Woods Referring Unavailable Vlad LOGGING TRACTOR OPERATOR, [facility] UnavailJl Robison Consulting Unavailable Shadi Lucero Consulting Unavailable Giles Medina Consulting Unavailable Obed Garcia Consulting Unavailable Marques Mcmahon Consulting Unavailable Jesús Rouse Consulting Unavailable Juan Pablo Adan Consulting Unavailable Karol iRos Consulting UnavailAly Srinivasan Consulting Unavailable Ivan Mcgrath Consulting Unavailable Dominic Bear Consulting Unavailable Mirna Viera Consulting Unavailable Erickson Phelps Consulting Unavailable Melanie Jaramillo Consulting Unavailable Mohinder Timmons Consulting Unavailable Hussein Cardenas Consulting Unavailable Hollis Anderson Consulting Unavailable Anders Allred Consulting Unavailable Bronwyn Traore Consulting Unavailable Pedro Luis Briceño Consulting Unavailable Isaac Pan Consulting Unavailable Vinayak Sunshine Consulting Unavailable Ezekiel Orr Consulting Unavailable Gisela Mckeon Consulting Unavailable Deanne Hayden Consulting Unavailable Dalia Payne Consulting Unavailable Carrington Garrido Consulting Unavailable Derek Saba Consulting Unavailable Tammie Cortez Consulting Unavailable KEE BACON Consulting Unavailable Safia Hernandez Consulting Unavailable Jaleesa Allred Consulting Unavailable Roman Emmanuel Consulting Unavailable Elena Winn Consulting Unavailable Benjamin Cobian Consulting Unavailable Ghada Araya Consulting Unavailable Kaye Zimmerman Consulting Unavailable Rick Welch Consulting Unavailable Blanca Ramírez Consulting Unavailable Juan C Dixon Consulting Unavailable Alexis العراقي Consulting Unavailable Murali Rodríguez Consulting Unavailable Natanael Lawrence Consulting Unavailable Leah Mhd Spenser Consulting UnavailTee Jeong Consulting Unavailable Glendy Tomlin Consulting Unavailable Chris Cox Consulting Unavailable Marlena Bonilla Consulting Unavailable Michele Negrete Consulting Unavailable Aldair Camacho Referring Unavailable Aldair Camacho Attending Unavailable Vlad LOGGING TRACTOR OPERATOR, [facility] UnavailSang Austin Attending Unavailable Vlad LOGGING TRACTOR OPERATOR, [facility] Care UnavailSang Austin Attending Unavailable Vlad LOGGING TRACTOR OPERATOR, [facility] Care Unavaila Sang Wyman Attending Unavailable Vlad LOGGING TRACTOR OPERATOR, [facility] Unavaila Aldair Crabtree Attending Unavailable Vlad LOGGING TRACTOR OPERATOR, [facility] Unavaila ble Gudla BAYLEE Dinorah Attending Unavailable Vlad LOGGING TRACTOR OPERATOR, [facility] Unavaila ble Gudla OLS, Dinorah Attending Unavailable Vlad LOGGING TRACTOR OPERATOR, [facility] Unavaila ble Obed Garcia Attending Unavailable Mark Gonzalez Referring Unavailable Robson George Attending Unavailable Aldair Camacho Attending Unavailable Vlad LOGGING TRACTOR OPERATOR, [facility] Unavaila Aldair Crabtree Attending Unavailable Aldair Camacho Referring Unavailable [facility] ble Chuck BEACH, Aldair Attending Unavailable Vlad LOGGING TRACTOR OPERATOR, [facility] Unavaila ble Gudla OLS, Dinorah Referring Unavailable Guzechariaha Derek BEACHyothi Attending Unavailable Vlad LOGGING TRACTOR OPERATOR, [facility] Unavaila ble David Ruvalcaba Attending Unavailable Gudla OLS, Dinorah Attending Unavailable Vlad LOGGING TRACTOR OPERATOR, [facility] Unavaila ble Aldair Camacho Attending Unavailable Vlad LOGGING TRACTOR OPERATOR, [facility] Unavaila ble Sang Zhou Attending Unavailable Vlda LOGGING TRACTOR OPERATOR, [facility] Unavaila ble Allergies Allergy Classification Reported Allergen(s) Allergy Type Date of Onset Reaction(s) Facility (13 sources) Codeine Drug Allergy [address] [facility] (13 sources) Haloperidol Drug Allergy [address] [facility] (2 sources) Lactate Drug Allergy [address] [facility] (13 sources) ziprasidone Drug Allergy [address] [facility] (11 sources) Haloperidol Drug Allergy 0 Abd cramps/diarrhea [facility] (1 source) Codeine Drug Allergy 5 [facility] (1 source) Haloperidol Drug Allergy 5 [facility] (1 source) Haloperidol Drug Allergy 5 [facility] (1 source) ziprasidone Drug Allergy 5 [facility] Medications Current Medications Medication Drug Class(es) Dates Sig (Normalized) Sig (Original) acetaminophen 650 mg rectal suppository (20 sources) Start: 05-23-2024 Acetaminophen 650 mg suppository Active 650 mg RC Q4H as needed for pain May 23, 2024 12:00am Complies with drug therapy Start: 05-23-2024 take 2 tablets by mo uth every four hours as needed for pain Acetaminophen 325 mg tablet Active 650 mg PO Q4H as needed for fever or pain May 23, 2024 12:00am Complies with drug therapy Start: 05-02-2018 End: 12-08-2023 Acetaminophen (Pharbetol) 50 0 MG tablet Discontinued 1000 mg PO THREE TIMES A DAY as needed for Pain May 02, 2018 1:00am December 08, 2023 4:22pm take 1 tablet by mirela every eight hours as needed acetaminophen (PHARBETOL) 500 mg tablet Take 500 mg by mouth every 8 hours as needed. 0 Active Comment on above: Take 500 mg by mouth every 8 hours as needed. Alum-Mag Hydroxide-Simeth (Mintox Maximum Strength) 400-400-40 mg/5 mL suspension (1 source) Start: 05-24-19 take 1 mL by mouth every four hours as needed Alum-Mag Hydroxide-Simeth (Mintox Maximum Strength) 400-400-40 mg/5 mL suspension Active 30 mL PO Q4H as needed for indigestion May 23, 2024 12:00am aluminum hydroxide 80 mg/ml / magnesium hydroxide 80 mg/ml / simethicone 8 mg/ml oral suspension (1 source) Start: 05-24-19 take 1 mL by mouth every four hours as needed Alum-Mag Hydroxide-Simeth (Mintox Maximum Strength) 400-400-40 mg/5 mL suspension Active 30 mL PO Q4H as needed for indigestion May 23, 2024 12:00am Complies with drug therapy bisacodyl 10 mg rectal suppository (5 sources) Stimulant Laxative Start: 05-24-19 Bisacodyl 10 mg suppository Active 10 mg RC DAILY as needed for CONSTIPATION May 23, 2024 12:00am Complies with drug therapy cholecalciferol 0.05 mg oral tablet (18 sources) Vitamin D Start: 05-24-19 Cholecalciferol (Vitamin D3) (D3 Dots) 50 mcg (2,000 unit) tablet Active 50 ug PO AT BEDTIME May 23, 2024 12:00am SUPPLEMENT Complies with drug therapy Start: 05-23-2024 Start: 12-24-2018 End: 12-08-2023 take 1 capsule by mouth once daily Cholecalciferol (Vitamin D3) 2,000 UNIT capsule Discontinued 2000 U PO DAILY December 24, 2018 12:00am December 08, 2023 4:23pm calcium take 1 tablet by mirela th once daily cholecalciferol (VITAMIN D-3) 2,000 unit tablet Take 2,000 Units by mouth once daily. 0 Active Comment on above: Take 2,000 Units by mouth once daily. doxycycline monohydrate 100 mg oral tablet (2 sources) Tetracycline-class Drug Start: 06-29-19 End: 07-09-19 take 1 tablet by mouth twice daily doxycycline monohydrate 100 mg tablet Indications: Wound of right foot Take 1 tablet by mouth twice daily for 10 days. 20 tablet 0 06/28/2021 07/08/2021 Active Comment on above: Take 1 tablet by mirela twice daily for 10 days. fluPHENAZine decanoate 25 mg/ml injectable solution (15 sources) Phenothiazine Start: 07-30-19 Fluphenazine Decanoate Active 25 MG IJ .[id number] July 28, 2016 11:00pm Start: 07-29-2016 Fluphenazine D ecanoate Active 25 MG IJ ONE TIME July 29, 2016 12:00am Start: 03-03-2010 inject 25 mg by intr amuscular injection every other week Fluphenazine Decanoate 25 MG/ML solution Active 25 mg IM Q14D July 29, 2016 12:00am PARANOID SCHIZOPHRENIA Complies with drug therapy take 1 tablet by mouth once alex y fluPHENAZine (PROLIXIN) 1 mg tablet Take 1 mg by mouth once daily. 0 Active Comment on above: inject 1ml IM every 2 weeks Take 1 mg by mouth o nce daily. hydroCHLOROthiazide 25 mg oral tablet (3 sources) Thiazide Diuretic Start: 025 take 1 tablet by mouth once daily montelukast 10 mg oral tablet (13 sources) Leukotriene Receptor Antagonist Start: 019 take 1 tablet by mouth once daily Montelukast 10 MG tablet Active 10 mg PO DAILY May 02, 2018 1:00am Complies with drug therapy Comment on above: Take 10 mg by mouth daily at bedtime. Multivitamin (Daily Multi-Vitamin) tablet (2 sources) Start: Multivitamin (Daily Multi-Vitamin) tablet Active 1 {tbl} PO DAILY December 09, 2023 12:00am replacement Complies with drug therapy Start: 12-09-2023 Multivitamin ( Daily Multi-Vitamin) tablet Active 1 {tbl} PO DAILY December 09, 2023 12:00am Multivitamin,Pb-Aejd-Ecuzaot s (6 sources) Start: 08-01-2016 take 1 tablet by mouth once daily at mealtime Multivitamin,Dg-Dwfy-Hssdfrds Active 1 TABLET PO DAILY WITH MEALS August 01, 2016 9:30am Start: 08-01-2016 take 1 tablet by mirela th once daily at mealtime Multivitamin,Rm-Agrz-Ihsyynkr Active 1 TABLET PO DAILY WITH MEALS July 31, 2016 11:00pm Start: 08-01-2016 take 1 tablet by mirela th once daily at mealtime Multivitamin,Lm-Ixvu-Bjkwnopr Active 1 TABLET PO DAILY WITH MEALS August 01, 2016 12:00am OLANZapine 10 mg oral tablet (20 sources) Atypical Antipsychotic Start: 06-04-2024 take 1 tablet by mouth twice daily Olanzapine 10 mg Tablet Active 10 mg PO TWICE A DAY 0 June 04, 2024 12:00am Complies with drug therapy Start: 05-02-2018 End: 06-04-2024 take 1 tablet by mouth at bedtime Olanzapine (Zyprexa) 20 MG tablet Discontinued 20 mg PO AT BEDTIME May 02, 2018 1:00am June 04, 2024 12:18pm Start: 05-02-2018 End: 06-04-2024 Start: 02-18-2015 End: 06-04-2024 take 1 tablet by mouth once daily Olanzapine 10 MG tablet Discontinued 10 mg PO DAILY February 18, 2015 1:00am June 04, 2024 12:18pm Start: 02-20-2012 take 1 tablet by mirela th twice daily in the morning OLANZapine (ZYPREXA) 10 mg tablet Take 1 tablet by mouth twice daily. 20 mg at night and 10 mg in the morning 0 02/20/2012 Active Comment on above: Take 1 tablet by mirela th twice daily. 20 mg at night and 10 mg in the morning Baring-3 Fatty Acids-Fish Oil (6 sources) Start: 05-02-2018 take 2 capsules by mouth twice daily Baring-3 Fatty Acids-Fish Oil Active 2 CAPSULE PO TWICE A DAY May 02, 2018 1:08pm Start: 05-02-2018 take 2 capsules by m outh twice daily Baring-3 Fatty Acids-Fish Oil Active 2 CAPSULE PO TWICE A DAY May 02, 2018 12:00am Start: 05-02-2018 take 2 capsules by m outh twice daily Baring-3 Fatty Acids-Fish Oil Active 2 CAPSULE PO TWICE A DAY May 02, 2018 1:00am omeprazole 20 mg delayed release oral capsule (20 sources) Proton Pump Inhibitor Start: 02-18-2015 take 1 capsule by mouth twice daily Omeprazole 20 MG capsule Active 20 mg PO TWICE A DAY February 18, 2015 1:00am Complies with drug therapy Start: 04-16-2013 End: 05-26-2013 take 1 capsule by mouth once daily Omeprazole 20 MG capsule Discontinued 20 mg PO DAILY April 16, 2013 1:00am May 26, 2013 11:41am Start: 04-16-2013 End: 05-26-2013 Comment on above: TAKE 1 CAPSULE TWICE A DAY simvastatin 20 mg oral tablet (13 sources) HMG-CoA Reductase Inhibitor Start: take 1 tablet by mouth at bedtime Simvastatin (Zocor) 20 MG tablet Active 20 mg PO AT BEDTIME May 02, 2018 1:00am Complies with drug therapy Comment on above: Take 20 mg by mouth daily at bedtime. sodium phosphate, dibasic 59.3 mg/ml / sodium phosphate, monobasic 161 mg/ml enema (5 sources) Start: Start: 05-23-2024 traZODone hydrochloride 50 mg oral tablet (5 sources) Serotonin Reuptake Inhibitor Start: 05-23-2024 take 1 tablet by mouth at bedtime Start: 05-23-2024 (20 sources) Start: 05-23-2024 Start: 12-09-2023 Start: 11-07-2023 End: 12-08-2023 Start: 05-02-2018 Start: 05-02-2018 End: 12-08-2023 Start: 05-02-2018 End: 03-22-2023 Start: 08-01-2016 End: 12-08-2023 Completed/Discontinued Medications Medication Drug Class(es) Dates Sig (Normalized) Sig (Original) [id number] 200 actuat albuterol 0.09 mg/actuat metered dose inhaler (11 sources) beta2-Adrenergic Agonist Start: 12-17-2024 Albuterol Sulfate 90 mcg/actuation HFA aerosol inhaler Discontinued INHALATION December 17, 2024 12:00am Start: 05-02-2018 Albuterol Sulf ate (Ventolin Hfa (Sp)) 1 INHALER inhaler Active 2 PUFF INHALATION EVERY 4 HOURS NEEDED May 02, 2018 1:08pm Start: 05-02-2018 End: 12-08-2023 Albuterol Sulfate (Ventolin Hfa) 1 INHALER inhaler Discontinued 2 NMA INHALATION EVERY 4 HOURS NEEDED as needed for Sob &/Or Wheezing May 02, 2018 1:00am December 08, 2023 4:22pm Start: 05-02-2018 Albuterol Sulf ate (Ventolin Hfa (Sp)) 1 INHALER inhaler Active 2 PUFF INHALATION EVERY 4 HOURS NEEDED May 02, 2018 12:00am Start: 05-02-2018 Albuterol Sulf ate (Ventolin Hfa (Sp)) 1 INHALER inhaler Active 2 PUFF INHALATION EVERY 4 HOURS NEEDED May 02, 2018 1:00am Start: 05-02-2018 End: 12-08-2023 Albuterol Sulfate (Ventolin Hfa) 1 INHALER inhaler Discontinued 2 NMA INHALATION EVERY 4 HOURS NEEDED as needed for Sob &/Or Wheezing May 02, 2018 1:00am December 08, 2023 4:22pm Start: 05-08-2017 take 2 puff(s) by in halation every four hours as needed for wheezing albuterol HFA (VENTOLIN HFA) 90 mcg/actuation inhaler Indications: Mixed simple and mucopurulent chronic bronchitis (HCC) Inhale 2 Puffs as instructed every 4 hours as needed for Wheezing/Shortness of Breath. 1 Inhaler 5 05/08/2017 Active Comment on above: Inhale 2 Puffs as in structed every 4 hours as needed for Wheezing/Shortness of Breath. albuterol 0.833 mg/ml / ipratropium bromide 0.167 mg/ml inhalation solution (5 sources) Anticholinergic, beta2-Adrenergic Agonist Start: 024 End: take 1 mL by inhalation every six hours Ipratropium-Albute rol 0.5 mg-3 mg(2.5 mg base)/3 mL Solution For Nebulization Discontinued 3 mL INHALATION EVERY 6 HOURS 0 0 December 12, 2023 12:00am May 23, 2024 2:06pm Start: 12-12-2023 End: 05-23-2024 amLODIPine 5 mg oral tablet (6 sources) Dihydropyridine Calcium Channel Kim Start: 03-22-2023 End: 06-04-2024 take 1 tablet by mouth once daily Amlodipine 5 mg tablet Discontinued 5 mg PO DAILY March 22, 2023 1:00am June 04, 2024 12:16pm bp amoxicillin 875 mg / clavulanate 125 mg oral tablet (15 sources) Penicillin-class Antibacterial Start: 05-23-2024 End: 06-04-2024 Amoxicillin-Pot Clavulanate 875-125 mg tablet Discontinued 1 {tbl} PO Q12H May 23, 2024 12:00am June 04, 2024 12:17pm START ON 05/14/24, TAKE FOR 10 DAYS Start: 12-12-2023 End: 05-23-2024 Amoxicillin-Pot Clavulanate 875-125 mg tablet Discontinued 1 {tbl} PO TWICE A DAY 8 4 0 December 12, 2023 12:00am May 23, 2024 2:14pm Start: 12-12-2023 End: 06-04-2024 Start: 11-07-2023 End: 12-08-2023 Amoxicillin-Pot Clavulanate 875-125 mg Tablet Discontinued 1 {tbl} PO TWICE DAILY WITH MEALS 14 7 0 November 07, 2023 12:00am December 08, 2023 4:22pm Start: 11-07-2023 End: 12-08-2023 aspirin 81 mg oral tablet (1 source) Platelet Aggregation Inhibitor, Nonsteroidal Anti-inflammatory Drug Start: 12-17-2024 take 1 tablet by mouth once daily Aspirin 81 mg tablet Discontinued 81 mg PO daily December 17, 2024 12:00am benztropine mesylate 2 mg oral tablet (13 sources) Anticholinergic, Antihistamine Start: 02-18-2015 End: 12-08-2023 Benztropine 2 MG tablet Discontinued 1 mg PO NEEDED February 18, 2015 1:00am December 08, 2023 4:23pm abnormal movements Start: 02-18-2015 End: 12-08-2023 Start: 02-18-2015 take 1 mg by mouth at bedtime Benztropine Active 1 MG PO AT BEDTIME February 18, 2015 12:00am Start: 02-07-2008 take 1 tablet by mirela th once in the morning BENZTROPINE 1 MG TAB one po q am 30 0 02/07/2008 Active Comment on above: one po q am busPIRone hydrochloride 10 mg oral tablet (6 sources) Start: 4 End: 4 Buspirone 10 mg tablet Discontinued 10 mg PO NEEDED March 22, 2023 1:00am December 08, 2023 4:23pm anxiety cetirizine hydrochloride 1 mg/ml oral solution (11 sources) Histamine-1 Receptor Antagonist Start: 5 End: 8 take 1 mL by mouth once daily Cetirizine 1 MG/ML solution Discontinued 10 mL PO DAILY February 18, 2015 1:00am July 02, 2017 10:25am sugar-free cholestyramine resin 4000 mg powder for oral suspension (9 sources) Bile Acid Sequestrant Start: 9 End: 4 take 4 g by mouth once daily Cholestyramine-Aspar tame (Cholestyramine Light Packet) 4 GM powder in packet Discontinued 4 g PO DAILY May 02, 2018 1:00am March 22, 2023 4:22pm Start: 05-02-2018 End: 03-22-2023 Comment on above: Take by mouth three times daily with meals. Cholestyramine-Asp artame (Cholestyramine Light Packet) 4 GM powder in packet (2 sources) Start: 05-02-2018 End: 03-22-2023 take 4 g by mouth once daily Cholestyramine-Aspartam e (Cholestyramine Light Packet) 4 GM powder in packet Discontinued 4 g PO DAILY May 02, 2018 1:00am March 22, 2023 4:22pm Start: 05-02-2018 End: 03-22-2023 take 4 g by mouth once daily Cholestyramine-Aspartame (Cholestyramine Light Packet) 4 GM powder in packet Discontinued 4 GM PO DAILY May 02, 2018 12:00am March 22, 2023 3:22pm clindamycin 150 mg oral capsule (11 sources) Lincosamide Antibacterial Start: 08-01-2016 End: 07-02-2017 Clindamycin Hcl 150 MG capsule Discontinued 3 {tbl} PO THREE TIMES A DAY 36 0 August 01, 2016 12:00am July 02, 2017 10:25am Compression Knee Highs (2 sources) Start: 08-29-2016 Compression Knee Highs Indications: Lower extremity edema KNEE HIGH COMPRESSION STOCKINGS 20-30 MM to be worn daily. DX: EDEMA 2 Device 2 08/29/2016 Active Comment on above: KNEE HIGH COMPRESSIO N STOCKINGS 20-30 MM to be worn daily. DX: EDEMA docusate sodium 100 mg oral capsule (20 sources) Start: 05-02-2018 End: 12-08-2023 take 1 capsule by mouth twice daily as needed for constipation Docusate Sodium (Dok) 100 MG capsule Discontinued 100 mg PO TWICE A DAY as needed for Constipation May 02, 2018 1:00am December 08, 2023 4:23pm Start: 05-21-2013 End: 05-26-2013 take 1 capsule by mouth twice daily as needed for constipation Docusate Sodium (Colace) 100 MG capsule Discontinued 100 mg PO TWICE DAILY NEEDED as needed for Constipation May 21, 2013 12:00am May 26, 2013 11:36am Comment on above: Take 100 mg by mouth twice daily. ergocalciferol 1.25 mg oral capsule (13 sources) Provitamin D2 Compound Start: End: Ergocalciferol (Vitamin D2) (Vitamin D2) 50,000 UNIT capsule Discontinued 19144 U PO EVERY WEEK May 02, 2018 1:00am March 22, 2023 4:23pm Comment on above: Take 50,000 Units by mouth one time a week. finasteride 5 mg oral tablet (1 source) 5-alpha Reductase Inhibitor Start: take 1 tablet by mouth once daily Finasteride 5 mg tablet Discontinued 5 mg PO daily December 17, 2024 12:00am fluconazole 150 mg oral tablet (11 sources) Azole Antifungal Start: End: take 1 tablet by mouth every week Fluconazole 150 MG tablet Discontinued 150 mg PO EVERY WEEK 2 0 December 24, 2018 12:00am March 22, 2023 4:23pm fluticasone propionate 0.05 mg/actuat metered dose nasal spray (13 sources) Corticosteroid Start: 019 End: 024 Fluticasone Propionate 1 SPRAY spray,suspension Discontinued 1 NMA NASAL DAILY as needed for Allergies May 02, 2018 1:00am December 08, 2023 4:24pm Start: 05-02-2018 End: 12-08-2023 Start: 05-02-2018 Fluticasone Pr opionate Active 1 SPRAY NASAL DAILY May 02, 2018 12:00am take 1 spray(s) nasa l route once daily fluticasone (FLONASE ALLERGY RELIEF) 50 mcg/actuation nasal spray Use 1 [place] in each nostril once daily. 0 Active Comment on above: Use 1 [place] in each nostril once daily. guaiFENesin 400 mg oral tablet (11 sources) Start: 9 End: 4 take 1 tablet by mouth every eight hours as needed for cough Guaifenesin (Mucus Relief) 400 MG tablet Discontinued 400 mg PO Q8H as needed for Cough May 02, 2018 1:00am March 22, 2023 4:24pm ketoconazole 20 mg/ml topical cream (11 sources) Azole Antifungal Start: 9 End: 4 Ketoconazole 15 GM cream Discontinued 1 NMA topical DAILY 1 0 December 24, 2018 12:00am March 22, 2023 4:25pm Start: 12-24-2018 End: 03-22-2023 Start: 12-24-2018 End: 03-22-2023 Ketoconazole Discontinued 1 APPLIC topical DAILY December 23, 2018 11:00pm March 22, 2023 3:25pm L.Acidoph,Saliva-B.Bif-S.The rm 175 mg Capsule (2 sources) Start: 11-07-2023 End: 12-08-2023 take 1 capsule by mouth four times daily L.Acidoph,Saliva-B.Bif-S.Therm 175 mg Capsule Discontinued 1 NMA PO 4 TIMES DAILY 0 0 November 07, 2023 12:00am December 08, 2023 4:24pm Start: 11-07-2023 End: 12-08-2023 take 1 capsule by mouth four times daily L.Acidoph,Saliva-B.Bif-S.Therm 175 mg Ca psule Discontinued 1 NMA PO 4 TIMES DAILY 0 November 07, 2023 12:00am December 08, 2023 4:24pm ammonium lactate 120 mg/ml topical cream (7 sources) Start: 10-30-2023 End: 12-17-2024 Ammonium Lactate 12 % cream Discontinued 1 NMA TOPICAL TWICE A DAY October 30, 2023 12:00am December 17, 2024 9:38am skin irritation ammonium lactate (LAC-HYDRIN) 12 % lotion Apply to affected area as needed. 0 Active Comment on above: Apply to affected ar ea as needed. Lactobacillus acidophilus (2 sources) Lactobacillus acidophilus (ACIDOPHILUS ORAL) Take by mouth. 0 Active Comment on above: Take by mouth. levoFLOXacin 500 mg oral tablet (20 sources) Quinolone Antimicrobial Start: 12-10-19 End: 03-22-19 take 1 tablet by mouth once daily Levofloxacin 500 MG tablet Discontinued 500 mg PO DAILY December 10, 2019 12:00am March 22, 2023 4:25pm Start: 04-16-2013 End: 04-18-2013 take 1 tablet by mouth once daily Levofloxacin 500 MG tablet Discontinued 500 mg PO DAILY April 16, 2013 1:00am April 18, 2013 8:58am lithium carbonate 300 mg oral tablet (20 sources) Start: 12-17-2024 take 1 tablet by mouth twice daily [place] Carbonate 300 mg tablet Discontinued 300 mg PO TWICE A DAY December 17, 2024 12:00am Start: 06-04-2024 take 1 capsule by [facility] at bedtime [place] Carbonate 300 mg Capsule Active 300 mg PO AT BEDTIME 0 30 2 June 04, 2024 12:00am Complies with drug therapy Start: 06-04-2024 Start: 05-23-2024 End: 06-04-2024 take 1 capsule by mouth at bedtime [place] Carbonate 600 mg capsule Discontinued 600 mg PO AT BEDTIME May 23, 2024 12:00am June 04, 2024 12:17pm BIPOLAR Start: 05-23-2024 End: 06-04-2024 Start: 02-18-2015 End: 05-23-2024 take 2 tablets by mouth at bedtime [place] Carbonate 300 MG tablet extended release Discontinued 600 mg PO AT BEDTIME February 18, 2015 1:00am May 23, 2024 2:13pm Bipolar Start: 02-18-2015 End: 05-23-2024 Start: 02-18-2015 take 600 mg by mouth at bedtim e [place] Carbonate Active 600 MG PO AT BEDTIME February 18, 2015 12:00am Start: 03-03-2010 take 2 capsules by m outh at bedtime lithium 300 mg ORAL capsule Take 2 capsules at bedtime. 0 03/03/2010 Active Comment on above: Take 2 capsules at b edtime. magnesium hydroxide 80 mg/ml oral suspension (2 sources) Start: End: take 1 mL by mouth once daily as needed for constipation Magnesium Hydroxide (Dulcolax (Magnesium Hydroxide)) 400 mg/5 mL suspension Discontinued 30 mL PO DAILY as needed for constipation May 23, 2024 12:00am December 17, 2024 9:41am Start: 05-23-2024 take 1 mL by mouth o nce daily as needed for constipation Magnesium Hydroxide (Dulcolax (Magnesium Hydroxide)) 400 mg/5 mL suspension Active 30 mL PO DAILY as needed for constipation May 23, 2024 12:00am melatonin 5 mg oral tablet (12 sources) Start: 05-23-2024 End: 12-17-2024 take 1 tablet by mouth at bedtime Melatonin 5 mg tablet Discontinued 5 mg PO AT BEDTIME May 23, 2024 12:00am December 17, 2024 9:43am Start: 05-23-2024 Start: 11-07-2023 End: 12-08-2023 take 1 tablet by mouth at bedtime as needed Melatonin 3 mg Tablet Discontinued 3 mg PO AT BEDTIME NEEDED as needed for Insomnia 0 0 November 07, 2023 12:00am December 08, 2023 4:24pm Start: 11-07-2023 End: 12-08-2023 Start: 01-24-2016 take 1 tablet by mirela th once daily at bedtime melatonin 1 mg tab Take 1 tablet by mouth daily at bedtime. 0 01/24/2016 Active Comment on above: Take 1 tablet by mirela th daily at bedtime. menthol 100 mg/ml topical cream (2 sources) Start: 05-23-2024 End: 12-17-2024 Menthol (Biofreeze (Menthol)) 10 % cream Discontinued 1 NMA TOPICAL Q12H as needed for pain May 23, 2024 12:00am December 17, 2024 9:42am Start: 05-23-2024 Menthol (Biofr eeze (Menthol)) 10 % cream Active 1 NMA TOPICAL Q12H as needed for pain May 23, 2024 12:00am MULTIVITAMIN ORAL (2 sources) MULTIVITAMIN ORA L Take by mouth. 0 Active Comment on above: Take by mouth. Multivitamin,Tx-Iron-M inerals 1 TABLET tablet (2 sources) Start: 08-01-2016 End: 12-08-2023 take 1 tablet by mouth once daily at mealtime Multivitamin,Tx-Iron- Minerals 1 TABLET tablet Discontinued 1 {tbl} PO DAILY WITH MEALS 0 August 01, 2016 12:00am December 08, 2023 4:25pm Start: 08-01-2016 End: 12-08-2023 take 1 tablet by mouth once daily at mealtime Multivitamin,Rl-Sbpg-Plnqouzg 1 TABLET tablet Discontinued 1 {tbl} PO DAILY WITH MEALS August 01, 2016 12:00am December 08, 2023 4:25pm naproxen 500 mg oral tablet (11 sources) Nonsteroidal Anti-inflammatory Drug Start: 05-02-2018 End: 03-22-2023 take 1 tablet by mouth once daily as needed for arthritis Naproxen 500 MG tablet Discontinued 500 mg PO DAILY NEEDED as needed for ARTHRITIS May 02, 2018 1:00am March 22, 2023 4:25pm 24 hr nicotine 0.292 mg/hr transdermal system (20 sources) Cholinergic Nicotinic Agonist Start: 12-09-2023 End: 05-23-2024 Nicotine 7 mg/24 hr patch 24 hour Discontinued 1 NMA TD DAILY as needed for smoking cessation December 09, 2023 12:00am May 23, 2024 2:07pm Start: 12-09-2023 End: 05-23-2024 Start: 11-07-2023 End: 12-08-2023 apply 1 dose transdermal route every twenty-four hours Nicotine 14 mg/24 hr Patch 24 Hour Discontinued 14 mg TD DAILY 0 0 November 07, 2023 12:00am December 08, 2023 4:25pm Start: 05-02-2018 End: 03-22-2023 apply 7 mg transdermal route once daily as needed Nicotine 7 MG patch 24 hour Discontinued 1 NMA TD DAILY as needed for Smoking Cessation May 02, 2018 1:00am March 22, 2023 4:25pm Start: 08-01-2016 End: 07-02-2017 apply 21 mg transdermal route once daily Nicotine 21 MG patch Discontinued 21 mg TRANSDERM. DAILY 14 0 August 01, 2016 12:00am July 02, 2017 10:25am Start: 08-01-2016 End: 07-02-2017 Start: 04-18-2013 End: 05-26-2013 apply 21 mg transdermal route once daily Nicotine 21 MG patch Discontinued 21 mg TRANSDERM. DAILY 14 0 April 18, 2013 1:00am May 26, 2013 11:34am Start: 04-18-2013 End: 05-26-2013 nicotine (NICODE RM) 7 mg/24 hr Apply 1 Patch as directed every 24 hours. 0 Active Comment on above: Apply 1 Patch as dir ected every 24 hours. nystatin 100 unt/mg topical powder (2 sources) Polyene Antifungal nystatin (MYC OSTATIN) powder Apply to affected area four times daily. 0 Active Comment on above: Apply to affected ar ea four times daily. om 3/E/linol/ala/olei c/gla/lip (OMEGA 3-6-9 ORAL) (2 sources) om 3/E/linol/ala/oleic/g la/lip (OMEGA 3-6-9 ORAL) Take by mouth. 0 Active Comment on above: Take by mouth. Baring-3 Fatty Acids-Fish Oil 1 EACH capsule (2 sources) Start: 9 End: take 2 capsules by mouth twice daily [place]-3 Fatty Acids-Fish Oil 1 EACH capsule Discontinued 2 CAPSULE PO TWICE A DAY May 02, 2018 1:00am December 17, 2024 9:42am deficiency Start: 05-02-2018 take 2 capsules by m outh twice daily [place]-3 Fatty Acids-Fish Oil 1 EACH capsule Active 2 CAPSULE PO TWICE A DAY May 02, 2018 1:00am polyethylene glycol 3350 07434 mg powder for oral solution (11 sources) Osmotic Laxative Start: 05-02-2018 End: 03-22-2023 take 17 g by mouth once daily as needed for constipation Polyethylene Glycol 3350 17 GM powder in packet Discontinued 17 g PO DAILY as needed for Constipation May 02, 2018 1:00am March 22, 2023 4:26pm Polyethylene Glycols (2 sources) polyethylene glycol 3350 (MIRALAX ORAL) Take by mouth. 0 Active Comment on above: Take by mouth. predniSONE 20 mg oral tablet (20 sources) Start: 12-12-2023 End: 05-23-2024 take 2 tablets by mouth once daily Prednisone 20 mg tablet Discontinued 40 mg PO DAILY 10 5 0 December 12, 2023 12:00am May 23, 2024 2:07pm Start: 11-07-2023 End: 12-08-2023 take 1 tablet by mouth at breakfast Prednisone 20 mg Tablet Discontinued 20 mg PO WITH BREAKFAST 0 5 0 November 07, 2023 12:00am December 08, 2023 4:25pm Start: 11-07-2023 End: 12-08-2023 Start: 12-24-2018 End: 07-16-2019 take 2 tablets by mouth once daily at mealtime Prednisone 20 MG tablet Discontinued 40 mg PO DAILY December 24, 2018 12:00am July 16, 2019 10:06am With food Start: 12-24-2018 End: 07-16-2019 take 40 mg by mouth once daily at mealtime Prednisone Discontinued 40 MG PO DAILY December 23, 2018 11:00pm July 16, 2019 9:06am With food sodium chloride 0.111 meq/ml nasal spray (6 sources) Start: 03-22-2023 End: 12-08-2023 Sodium Chloride ([place] Na gladis) 0.65 % aerosol,spray Discontinued 1 NMA INTRANASAL THREE TIMES A DAY as needed for dry nasal passages March 22, 2023 1:00am December 08, 2023 4:26pm Start: 03-22-2023 End: 12-08-2023 Start: 03-22-2023 Sodium Chlorid e ([place] Nasal) 0.65 % aerosol,spray Active 1 SPRAY INTRANASAL THREE TIMES A DAY March 22, 2023 12:00am spironolactone 25 mg oral tablet (13 sources) Aldosterone Antagonist Start: 02-18-2015 End: 06-04-2024 take 1 tablet by mouth once daily Spironolactone 25 MG tablet Discontinued 25 mg PO DAILY February 18, 2015 1:00am June 04, 2024 12:18pm Comment on above: TAKE 1 TABLET BY [facility] ONCE DAILY. tamsulosin hydrochloride 0.4 mg oral capsule (6 sources) alpha-Adrenergic Kim Start: 03-22-2023 End: 05-23-2024 take 1 capsule by mouth at bedtime Tamsulosin (Flomax) 0.4 mg capsule Discontinued 0.4 mg PO AT BEDTIME March 22, 2023 1:00am May 23, 2024 2:07pm Start: 03-22-2023 End: 05-23-2024 triamcinolone acetonide 1 mg/ml topical cream (2 sources) Corticosteroid Start: 04-01-2015 triamcinolone acetonide (KENALOG) 0.1 % cream Apply 1 application to affected area once daily. to legs 1 lb 5 04/01/2015 Active Comment on above: Apply 1 application to affected area once daily. to legs divalproex sodium 250 mg delayed release oral tablet (3 sources) Mood Stabilizer, Anti-epileptic Agent Start: 12-17-2024 take 1 tablet by mouth twice daily Divalproex 250 mg tablet,delayed release (DR/EC) Discontinued 250 mg PO TWICE A DAY December 17, 2024 12:00am Start: 01-18-2009 divalproex sod ium(DEPAKOTE ER 500 MG 24 HR TAB) two tablets at 8 am and 2 tablets at bedtime 0 01/18/2009 Active Comment on above: two tablets at 8 am and 2 tablets at bedtime Problems Active Problems Problem Classification Problem Date Documented Date Episodic/Chronic Alcohol-related disorders (20 sources) Alcohol abuse; Translations: [Alcohol abuse, uncomplicated] 12-06-2019 Chronic Aspiration pneumonitis; food/vomitus (11 sources) Aspiration pneumonia; Translations: [Pneumonitis due to inhalation of food and vomit] 12-24-2018 Episodic Chronic obstructive pulmonary disease and bronchiectasis (20 sources) Chronic obstructive lung disease; Translations: [Chronic obstructive pulmonary disease, unspecified] Onset: 12-27-2009 12-27-2009 Chronic Chronic ulcer of skin (20 sources) Non-pressure chronic ulcer of other part of left foot limited to breakdown of skin; Translations: [Ulcer of left foot, limited to breakdown of skin] Chronic Congestive heart failure; nonhypertensive (8 sources) Heart failure with normal ejection fraction; Translations: [Unspecified diastolic (congestive) heart failure] Onset: 06-04-2024 05-26-2024 Chronic Esophageal disorders (13 sources) Gastroesophageal reflux disease; Translations: [Gastro-esophageal reflux disease without esophagitis] Onset: 12-27-2009 12-27-2009 Chronic Essential hypertension (2 sources) Essential (primary) hypertension; Translations: [Essential (primary) hypertension] Onset: 07-25-2024 Chronic Immunizations and screening for infectious disease (11 sources) Infectious disease carrier; Translations: [Carrier of infectious disease, unspecified] 10-04-2019 Episodic Malaise and fatigue (11 sources) Fatigue; Translations: [Other fatigue] 05-03-2018 Episodic Mood disorders (20 sources) Bipolar disorder; Translations: [Bipolar disorder, unspecified] Chronic Mycoses (18 sources) Onychomycosis; Translations: [Tinea unguium] Onset: 09-30-2015 09-30-2015 Episodic Nutritional deficiencies (5 sources) Nutritional disorder; Translations: [Unspecified protein-calorie malnutrition] 11-15-2023 Chronic Open wounds of extremities (10 sources) Disorder of foot; Translations: [Unspecified open wound, right foot, initial encounter] Episodic Other aftercare (1 source) Other shelter (current) drug therapy; Translations: [Other shelter (current) drug therapy] Onset: 01-02-2025 Episodic Other connective tissue disease (8 sources) Pain in toe; Translations: [Pain in left toe(s)] 07-18-2023 Episodic Other connective tissue disease (1 source) Pain of toe of left foot; Translations: [Pain in left toe(s)] 07-18-2023 Episodic Other connective tissue disease (1 source) Pain of toe of right foot; Translations: [Pain in right toe(s)] 07-18-2023 Episodic Other connective tissue disease (2 sources) Pain in left foot; Translations: [Pain in left foot] 12-17-2024 Episodic Other diseases of kidney and ureters (7 sources) Nephrogenic diabetes insipidus; 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] 06-02-2024 Chronic Other diseases of kidney and ureters (1 source) Nephrogenic diabetes insipidus; 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] Onset: 06-04-2024 Chronic Other diseases of veins and lymphatics (6 sources) Lymphedema; Translations: [Lymphedema, not elsewhere classified] 07-18-2023 Chronic Other diseases of veins and lymphatics (12 sources) Peripheral venous insufficiency; Translations: [Venous insufficiency (chronic) (peripheral)] 12-06-2019 Episodic Other diseases of veins and lymphatics (11 sources) Venous stasis edema of left lower limb; Translations: [Venous insufficiency (chronic) (peripheral)] 01-07-2020 Episodic Other diseases of veins and lymphatics (9 sources) Disorder of vein of lower extremity; Translations: [Venous insufficiency (chronic) (peripheral)] 12-08-2023 Episodic Other injuries and conditions due to external causes (11 sources) Wound of skin; Translations: [Other injury of unspecified body region, initial encounter] 01-07-2020 Episodic Other injuries and conditions due to external causes (12 sources) Other injury of unspecified body region, initial encounter; Translations: [Open wound(s) (multiple) of unspecified site(s), complicated] Episodic Other liver diseases (2 sources) Elevated levels of transaminase & lactic acid dehydrogenase; Translations: [Nonspecific elevation of levels of transaminase or lactic acid dehydrogenase (LDH)] 07-30-2012 Episodic Other lower respiratory disease (11 sources) Hypoxemia; Translations: [Hypoxemia] 12-24-2018 Episodic Other lower respiratory disease (11 sources) Hypercapnia; Translations: [Other abnormalities of breathing] 12-24-2018 Episodic Other lower respiratory disease (5 sources) Respiratory insufficiency; Translations: [Other abnormalities of breathing] 10-30-2023 Episodic Other nervous system disorders (8 sources) Metabolic encephalopathy; Translations: [Metabolic encephalopathy] 11-15-2023 Chronic Other nervous system disorders (7 sources) Disorder of brain; Translations: [Encephalopathy, unspecified] 06-02-2024 Chronic Other nervous system disorders (2 sources) Metabolic encephalopathy; Translations: [Metabolic encephalopathy] Onset: 06-04-2024 Chronic Other nervous system disorders (1 source) Encephalopathy, unspecified; Translations: [Encephalopathy, unspecified] Onset: 06-04-2024 Chronic Other nutritional; endocrine; and metabolic disorders (13 sources) Obese class I; Translations: [Obesity, unspecified] 05-08-2017 Chronic Other nutritional; endocrine; and metabolic disorders (11 sources) Hyperammonemia; Translations: [Disorder of urea cycle metabolism, unspecified] 12-24-2018 Chronic Other nutritional; endocrine; and metabolic disorders (11 sources) Hypoalphalipoproteinem ia; Translations: [Lipoprotein deficiency] 12-24-2018 Chronic Other nutritional; endocrine; and metabolic disorders (12 sources) Obesity, unspecified; Translations: [Obesity, unspecified] Chronic Other screening for suspected conditions (not mental disorders or infectious disease) (2 sources) Radiology result abnormal; Translations: [Abnormal findings on diagnostic imaging of other specified body structures] Onset: 06-25-2009 06-25-2009 Chronic Other screening for suspected conditions (not mental disorders or infectious disease) (7 sources) Ultrasonography of abdomen abnormal; Translations: [Abnormal findings on diagnostic imaging of other abdominal regions, including retroperitoneum] 07-30-2012 Episodic Other skin disorders (11 sources) Macerated skin; Translations: [Other specified disorders of the skin and subcutaneous tissue] 01-07-2020 Episodic Other skin disorders (7 sources) Other specified disorders of the skin and subcutaneous tissue; Translations: [Other specified disorders of skin] Episodic Other skin disorders (5 sources) Asteatosis cutis; Translations: [Xerosis cutis] 07-18-2023 Episodic Other upper respiratory disease (5 sources) Acute bronchospasm; Translations: [Acute bronchospasm] 12-20-2023 Episodic Peripheral and visceral atherosclerosis (14 sources) Peripheral vascular disease; Translations: [Peripheral vascular disease, unspecified] Chronic Pneumonia (except that caused by tuberculosis or sexually transmitted disease) (5 sources) Pneumonia; Translations: [Pneumonia, unspecified organism] 11-15-2023 Episodic Residual codes; unclassified (2 sources) Edema of lower extremity; Translations: [Localized edema] 04-26-2016 Episodic Residual codes; unclassified (11 sources) Bilateral lower limb edema; Translations: [Localized edema] 07-07-2021 Episodic Residual codes; unclassified (11 sources) Edema of left lower leg; Translations: [Localized edema] 01-07-2020 Episodic Residual codes; unclassified (16 sources) Tobacco user; Translations: [Tobacco use] 02-05-2019 Episodic Residual codes; unclassified (11 sources) Tobacco use and exposure - finding; Translations: [Tobacco use] 12-06-2019 Episodic Residual codes; unclassified (12 sources) Localized edema; Translations: [Edema] Episodic Residual codes; unclassified (12 sources) Tobacco use; Translations: [Tobacco use disorder] Episodic Respiratory failure; insufficiency; arrest (adult) (5 sources) Acute on chronic hypoxemic and hypercapnic respiratory failure; Translations: [Acute and chronic respiratory failure with hypoxia] 12-20-2023 Chronic Schizophrenia and other psychotic disorders (20 sources) Chronic paranoid schizophrenia; Translations: [Paranoid schizophrenia] Onset: 05-08-2024 12-04-2005 Chronic Septicemia (except in labor) (11 sources) Sepsis; Translations: [Sepsis, unspecified organism] 12-24-2018 Episodic Skin and subcutaneous tissue infections (20 sources) Cellulitis of lower limb; Translations: [Cellulitis of left lower limb] Episodic Substance-related disorders (2 sources) Tobacco user; Translations: [Nicotine dependence, unspecified, uncomplicated] 12-04-2005 Chronic Unclassified (1 source) Parkinsonism, unspecified; Translations: [Parkinsonism, unspecified] Onset: 08-15-2024 Past or Other Problems Problem Classification Problem Date Documented Da te Episodic/Chronic Abdominal hernia (2 sources) Unilateral inguinal hernia; Translations: [Inguinal hernia, without mention of obstruction or gangrene, unilateral or unspecified (not specified as recurrent)] Onset: 03-03-2010 03-03-2010 Episodic Acquired foot deformities (2 sources) Talipes planus; Translations: [Flat foot [pes planus] (acquired), right foot] Onset: 09-30-2015 09-30-2015 Episodic Acute and unspecified renal failure (8 sources) Acute renal failure syndrome; Translations: [Acute kidney failure, unspecified] Onset: 06-04-2024 05-26-2024 Episodic Esophageal disorders (2 sources) Esophagitis; Translations: [Esophagitis] Onset: 07-02-2009 07-02-2009 Episodic Fluid and electrolyte disorders (19 sources) Hyponatremia; Translations: [Hypo-osmolality and hyponatremia] Onset: 06-04-2024 12-24-2018 Episodic Genitourinary symptoms and ill-defined conditions (1 source) Obstructive and reflux uropathy, unspecified; Translations: [Obstructive and reflux uropathy, unspecified] Onset: 07-03-2024 Episodic Other bone disease and musculoskeletal deformities (2 sources) Costal chondritis; Translations: [Chondrocostal junction syndrome [Tietze]] Onset: 03-03-2010 03-03-2010 Episodic Other diseases of veins and lymphatics (13 sources) Venous insufficiency (chronic) (peripheral); Translations: [Venous (peripheral) insufficiency, unspecified] Onset: 06-04-2024 Episodic Respiratory failure; insufficiency; arrest (adult) (20 sources) Acute respiratory failure; Translations: [Acute respiratory failure, unspecified whether with hypoxia or hypercapnia] Onset: 06-04-2024 12-24-2018 Episodic Results Test Name Value Interpretation Reference Range Facility MR/BMS.BVSon 12-17-2024 MR/BMS.BVS Normal [facility] Lithiumon 10-02-2024 LI 0.74 mmol/L Normal 0.60-1.20 [facility] Comment on above: Order Comment: 309.2 [id number] Performed By: #### L [id number] ####[facility] [id number] [place], [place], [id number] Microalb:Creat Ratio,Random URon 08-21-2024 MALB:CREAT 136.5 mg/g CRE Normal [facility] Comment on above: Order Comment: 309-2 Result Comment: AMENDED REPORT 08/21/24 0856 MALB:CREAT previously reported as: 1364.9 mg/g CRE Performed By: #### L [id number] ####[facility] [id number] [place], [place], [id number] Anion gap in Serum or Plasma Ordered By: Aldair Woods on 07-30-2024 Anion gap [Moles/Vol] 10 mmol/L 07-17 [facility] BUN/creatinine ratioOrdered By: Aldair Woods on 07-30-2024 Urea nitrogen/Creatinine [Mass ratio] 10.8 mg/mg 12-22 [facility] Basic Metabolic Profile (BMP )on 07-30-2024 BUN/CRE 10.8 RATIO Normal 12-22 [facility] Comment on above: Order Comment: 309.2 Performed By: #### L [id number] ####[facility] [id number] [place], [place], [address] GAP 10 Normal 07-17 [facility] Comment on above: Order Comment: 309.2 Performed By: #### L 500.2500 ####[facility] [address] [place], [address] Potassium [Moles/Vol] 4.6 mmol/L Normal 3.3-5.1 [facility] Comment on above: Order Comment: 309.2 Performed By: #### L 500.2500 ####[facility] [address] [place], [address] Carbon dioxide, total [Moles /volume] in Central venous bloodOrdered By: Aldair Woods on 07-30-2024 CO2 [Moles/Vol] 27.5 mmol/L Normal 21.0-32.0 [facility] Comment on above: Order Comment: 309.2 Performed By: #### L 500.2500 ####[facility] [address], [address] Chloride assayOrdered By: Bubba Woods on 07-30-2024 Chloride [Moles/Vol] 102 mmol/L Normal 98-108 [facility] Comment on above: Order Comment: 309.2 Performed By: #### L 500.2500 ####[facility] [address] [place], [address] Glomerular filtration rate ( GFR) estimation/1.73 sq m using serum, plasma, or whole bOrdered By: Aldair Woods on 07-30-2024 GFR/1.73 sq M.predicted among non-blacks MDRD (S/P/Bld) [Vol rate/Area] 75 mL/min/{1.73_m2} Normal >60 [facility] Comment on above: Order Comment: 309.2 Result Comment: mL/m in/1.73m2 CKD-EPI Creatinine Equation (2020) Performed By: #### L 500.2500 ####[facility] [address] [place], [address] Potassium measurement (mass/ volume)Ordered By: Aldair Woods on 07-30-2024 Potassium (Unsp spec) [Mass/Vol] 4.6 mmol/L 3.3-5.1 [facility] Serum creatinine measurement (mass/volume)Ordered By: Aldair Woods on 07-30-2024 Creatinine [Mass/Vol] 1.11 mg/dL Normal 0.70-1.20 [facility] Comment on above: Order Comment: 309.2 Performed By: #### L 500.2500 ####[facility] [address] [place], [place], [phone](361) Serum glucose measurement (m ass/volume)Ordered By: Aldair Woods on 07-30-2024 Glucose [Mass/Vol] 97 mg/dL Normal 70-99 [facility] Comment on above: Order Comment: 309.2 Performed By: #### L 500.2500 ####[facility] [address] [place], [address] Serum or plasma calcium vito urement (mass/volume)Ordered By: Aldair Woods on 07-30-2024 Calcium [Mass/Vol] 9.6 mg/dL Normal 7.6-11.0 [facility] Comment on above: Order Comment: 309.2 Performed By: #### L 500.2500 ####[facility] [address] [place], [address] Serum or plasma urea nitroge n measurement (mass/volume)Ordered By: Aldair Woods on 07-30-2024 Urea nitrogen [Mass/Vol] 12 mg/dL Normal 4-19 [facility] Comment on above: Order Comment: 309.2 Performed By: #### L 500.2500 ####[facility] [address] [place], [address] Sodium levelOrdered By: Miguel Woods on 07-30-2024 Sodium [Moles/Vol] 139 mmol/L Normal 133-145 [facility] Comment on above: Order Comment: 309.2 Performed By: #### L 500.2500 ####[facility] [address] [place], [place], [id number] Anion gap in Serum or Plasma Ordered By: Aldair Woods on 07-23-2024 Anion gap [Moles/Vol] 11 mmol/L 5-15 [facility] BUN/creatinine ratioOrdered By: Aldair Woods on 07-23-2024 Urea nitrogen/Creatinine [Mass ratio] 7.5 mg/mg Low -20 [facility] Basic Metabolic Profile (BMP )on 07-23-2024 BUN/CRE 7.5 RATIO Low -20 [facility] Comment on above: Order Comment: 309.2 Performed By: #### L 500.2500 ####[facility] [address] [place], [address] Calcium [Mass/Vol] 9.4 mg/dL Normal 7.6-11.0 [facility] Comment on above: Order Comment: 309.2 Performed By: #### L 500.2500 ####[facility] [address] [place], [address] Chloride [Moles/Vol] 102 mmol/L Normal 98-108 [facility] Comment on above: Order Comment: 309.2 Performed By: #### L 500.2500 ####[facility] [address] [place], [address] CO2 [Moles/Vol] 26.6 mmol/L Normal 21.0-32.0 [facility] Comment on above: Order Comment: 309.2 Performed By: #### L 500.2500 ####[facility] [address] [place], [address] Creatinine [Mass/Vol] 1.12 mg/dL Normal 0.70-1.20 [facility] Comment on above: Order Comment: 309.2 Performed By: #### L 500.2500 ####[facility] [address] [place], [address] GAP 11 Normal 5-15 [facility] Comment on above: Order Comment: 309.2 Performed By: #### L 500.2500 ####[facility] [address] [place], [address] GFR/1.73 sq M.predicted among non-blacks MDRD (S/P/Bld) [Vol rate/Area] 74 mL/min/{1.73_m2} Normal >60 [facility] Comment on above: Order Comment: 309.2 Result Comment: mL/m in/1.73m2 CKD-EPI Creatinine Equation (2020) Performed By: #### L 500.2500 ####[facility] [address] [place], [address] Glucose [Mass/Vol] 98 mg/dL Normal 70-99 [facility] Comment on above: Order Comment: 309.2 Performed By: #### L 500.2500 ####[facility] [address] [place], [address] Potassium [Moles/Vol] 4.2 mmol/L Normal 3.3-5.1 [facility] Comment on above: Order Comment: 309.2 Result Comment: Hemo lysis present, Results??could be affected.?? Performed By: #### L 500.2500 ####[facility] [address] [place], [address] Sodium [Moles/Vol] 140 mmol/L Normal 133-145 [facility] Comment on above: Order Comment: 309.2 Performed By: #### L 500.2500 ####[facility] [address] [place], [address] Urea nitrogen [Mass/Vol] 8 mg/dL Normal 4-19 [facility] Comment on above: Order Comment: 309.2 Performed By: #### L 500.2500 ####[facility] [address] [place], [address] Carbon dioxide, total [Moles /volume] in Central venous bloodOrdered By: Aldair Woods on 07-23-2024 CO2 [Moles/Vol] 26.6 mmol/L 21.0-32.0 [facility] Chloride assayOrdered By: Bubba Woods on 07-23-2024 Chloride [Moles/Vol] 102 mmol/L 98-108 [facility] Glomerular filtration rate ( GFR) estimation/1.73 sq m using serum, plasma, or whole bOrdered By: Aldair Woods on 07-23-2024 GFR/1.73 sq M.predicted among non-blacks MDRD (S/P/Bld) [Vol rate/Area] 74 mL/min/{1.73_m2} >60 [facility] Potassium measurement (mass/ volume)Ordered By: Aldair Woods on 07-23-2024 Potassium (Unsp spec) [Mass/Vol] 4.2 mmol/L 3.3-5.1 [facility] Serum creatinine measurement (mass/volume)Ordered By: Aldair Woods on 07-23-2024 Creatinine [Mass/Vol] 1.12 mg/dL 0.70-1.20 [facility] Serum glucose measurement (m ass/volume)Ordered By: Aldair Woods on 07-23-2024 Glucose [Mass/Vol] 98 mg/dL 70-99 [facility] Serum or plasma calcium vito urement (mass/volume)Ordered By: Aldair Woods on 07-23-2024 Calcium [Mass/Vol] 9.4 mg/dL 7.6-11.0 [facility] Serum or plasma urea nitroge n measurement (mass/volume)Ordered By: Aldair Woods on 07-23-2024 Urea nitrogen [Mass/Vol] 8 mg/dL 4-19 [facility] Sodium levelOrdered By: Miguel Woods on 07-23-2024 Sodium [Moles/Vol] 140 mmol/L 133-145 [facility] Anion gap in Serum or Plasma Ordered By: Aldair Woods on 07-16-2024 Anion gap [Moles/Vol] 8 mmol/L 5-15 [facility] BUN/creatinine ratioOrdered By: Aldair Woods on 07-16-2024 Urea nitrogen/Creatinine [Mass ratio] 9.3 mg/mg Low 10- [facility] Basic Metabolic Profile (BMP )on 07-16-2024 BUN/CRE 9.3 RATIO Low - [facility] Comment on above: Order Comment: 309.2 Performed By: #### L 500.2500 ####[place] [facility] [address] [place], [address] Calcium [Mass/Vol] 9.7 mg/dL Normal 7.6-11.0 [facility] Comment on above: Order Comment: 309.2 Performed By: #### L 500.2500 ####[facility] [address] [place], [address] Chloride [Moles/Vol] 101 mmol/L Normal 98-108 [facility] Comment on above: Order Comment: 309.2 Performed By: #### L 500.2500 ####[facility] [address] [place], [address] CO2 [Moles/Vol] 29.3 mmol/L Normal 21.0-32.0 [facility] Comment on above: Order Comment: 309.2 Performed By: #### L 500.2500 ####[facility] [address] [place], [address] Creatinine [Mass/Vol] 1.24 mg/dL High 0.70-1.20 [facility] Comment on above: Order Comment: 309.2 Performed By: #### L 500.2500 ####[facility] [address] [place], [address] GAP 8 Normal 5-15 [facility] Comment on above: Order Comment: 309.2 Performed By: #### L 500.2500 ####[facility] [address] [place], [address] GFR/1.73 sq M.predicted among non-blacks MDRD (S/P/Bld) [Vol rate/Area] 66 mL/min/{1.73_m2} Normal >60 [facility] Comment on above: Order Comment: 309.2 Result Comment: mL/m in/1.73m2 CKD-EPI Creatinine Equation (2020) Performed By: #### L 500.2500 ####[facility] [address] [place], [address] Glucose [Mass/Vol] 101 mg/dL High 70-99 [facility] Comment on above: Order Comment: 309.2 Performed By: #### L 500.2500 ####[facility] [address] [place], [address] Potassium [Moles/Vol] 4.9 mmol/L Normal 3.3-5.1 [facility] Comment on above: Order Comment: 309.2 Result Comment: Hemo lysis present, Results??could be affected.?? Performed By: #### L 500.2500 ####[facility] [address] [place], [address] Sodium [Moles/Vol] 139 mmol/L Normal 133-145 [facility] Comment on above: Order Comment: 309.2 Performed By: #### L 500.2500 ####[facility] [address] [place], [address] Urea nitrogen [Mass/Vol] 12 mg/dL Normal 4-19 [facility] Comment on above: Order Comment: 309.2 Performed By: #### L 500.2500 ####[facility] [address] [place], [address] Carbon dioxide, total [Moles /volume] in Central venous bloodOrdered By: Aldair Woods on 07-16-2024 CO2 [Moles/Vol] 29.3 mmol/L 21.0-32.0 [facility] Chloride assayOrdered By: Bubba Woods on 07-16-2024 Chloride [Moles/Vol] 101 mmol/L 98-108 [facility] Glomerular filtration rate ( GFR) estimation/1.73 sq m using serum, plasma, or whole bOrdered By: Aldair Woods on 07-16-2024 GFR/1.73 sq M.predicted among non-blacks MDRD (S/P/Bld) [Vol rate/Area] 66 mL/min/{1.73_m2} >60 [facility] Potassium measurement (mass/ volume)Ordered By: Aldair Woods on 07-16-2024 Potassium (Unsp spec) [Mass/Vol] 4.9 mmol/L 3.3-5.1 [facility] Serum creatinine measurement (mass/volume)Ordered By: Aldair Woods on 07-16-2024 Creatinine [Mass/Vol] 1.24 mg/dL High 0.70-1.20 [facility] Serum glucose measurement (m ass/volume)Ordered By: Aldair Woods on 07-16-2024 Glucose [Mass/Vol] 101 mg/dL High 70-99 [facility] Serum or plasma calcium vito urement (mass/volume)Ordered By: Aldair Woods on 07-16-2024 Calcium [Mass/Vol] 9.7 mg/dL 7.6-11.0 [facility] Serum or plasma urea nitroge n measurement (mass/volume)Ordered By: Aldair Woods on 07-16-2024 Urea nitrogen [Mass/Vol] 12 mg/dL 4-19 [facility] Sodium levelOrdered By: Miguel Woods on 07-16-2024 Sodium [Moles/Vol] 139 mmol/L 133-145 [facility] Anion gap in Serum or Plasma Ordered By: Aldair Woods on 07-09-2024 Anion gap [Moles/Vol] 9 mmol/L 5-15 [facility] BUN/creatinine ratioOrdered By: Aldair Woods on 07-09-2024 Urea nitrogen/Creatinine [Mass ratio] 7.1 mg/mg Low 10- [facility] Basic Metabolic Profile (BMP )on 07-09-2024 BUN/CRE 7.1 RATIO Low 10- [facility] Comment on above: Order Comment: 309-2 Performed By: #### L 500.2500 ####[facility] [address] [place], [place], [address]76) Calcium [Mass/Vol] 9.6 mg/dL Normal 7.6-11.0 [facility] Comment on above: Order Comment: 309-2 Performed By: #### L 500.2500 ####[facility] [address] [place], [address] Chloride [Moles/Vol] 103 mmol/L Normal 98-108 [facility] Comment on above: Order Comment: 309-2 Performed By: #### L 500.2500 ####[facility] [address] [place], [address] CO2 [Moles/Vol] 28.5 mmol/L Normal 21.0-32.0 [facility] Comment on above: Order Comment: 309-2 Performed By: #### L 500.2500 ####[facility] [address] [place], [address] Creatinine [Mass/Vol] 1.29 mg/dL High 0.70-1.20 [facility] Comment on above: Order Comment: 309-2 Performed By: #### L 500.2500 ####[facility] [address] [place], [address] GAP 9 Normal 5-15 [facility] Comment on above: Order Comment: 309-2 Performed By: #### L 500.2500 ####[facility] [address] [place], [address] GFR/1.73 sq M.predicted among non-blacks MDRD (S/P/Bld) [Vol rate/Area] 63 mL/min/{1.73_m2} Normal >60 [facility] Comment on above: Order Comment: 309-2 Result Comment: mL/m in/1.73m2 CKD-EPI Creatinine Equation (2020) Performed By: #### L 500.2500 ####[facility] [address] [place], [address] Glucose [Mass/Vol] 95 mg/dL Normal 70-99 [facility] Comment on above: Order Comment: 309-2 Performed By: #### L 500.2500 ####[facility] [address] [place], [address] Potassium [Moles/Vol] 4.7 mmol/L Normal 3.3-5.1 [facility] Comment on above: Order Comment: 309-2 Performed By: #### L 500.2500 ####[facility] [address] [place], [address] Sodium [Moles/Vol] 140 mmol/L Normal 133-145 [facility] Comment on above: Order Comment: 309-2 Performed By: #### L 500.2500 ####[facility] [address] [place], [address] Urea nitrogen [Mass/Vol] 9 mg/dL Normal 4-19 [facility] Comment on above: Order Comment: 309-2 Performed By: #### L 500.2500 ####[facility] [address] [place], [place], [id number] Carbon dioxide, total [Moles /volume] in Central venous bloodOrdered By: Aldair Woods on 07-09-2024 CO2 [Moles/Vol] 28.5 mmol/L 21.0-32.0 [facility] Chloride assayOrdered By: Bubba Woods on 07-09-2024 Chloride [Moles/Vol] 103 mmol/L 98-108 [facility] Glomerular filtration rate ( GFR) estimation/1.73 sq m using serum, plasma, or whole bOrdered By: Aldair Woods on 07-09-2024 GFR/1.73 sq M.predicted among non-blacks MDRD (S/P/Bld) [Vol rate/Area] 63 mL/min/{1.73_m2} >60 [facility] Potassium measurement (mass/ volume)Ordered By: Aldair Woods on 07-09-2024 Potassium (Unsp spec) [Mass/Vol] 4.7 mmol/L 3.3-5.1 [facility] Serum creatinine measurement (mass/volume)Ordered By: Aldair Woods on 07-09-2024 Creatinine [Mass/Vol] 1.29 mg/dL High 0.70-1.20 [facility] Serum glucose measurement (m ass/volume)Ordered By: Aldair Woods on 07-09-2024 Glucose [Mass/Vol] 95 mg/dL 70-99 [facility] Serum or plasma calcium vito urement (mass/volume)Ordered By: Aldair Woods on 07-09-2024 Calcium [Mass/Vol] 9.6 mg/dL 7.6-11.0 [facility] Serum or plasma urea nitroge n measurement (mass/volume)Ordered By: Aldair Woods on 07-09-2024 Urea nitrogen [Mass/Vol] 9 mg/dL 4-19 [facility] Sodium levelOrdered By: Miguel Woods on 07-09-2024 Sodium [Moles/Vol] 140 mmol/L 133-145 [facility] Anion gap in Serum or Plasma Ordered By: Aldair Woods on 06-11-2024 Anion gap [Moles/Vol] 10 mmol/L 5-15 [facility] BUN/creatinine ratioOrdered By: Aldair Woods on 06-11-2024 Urea nitrogen/Creatinine [Mass ratio] 7.3 mg/mg Low 10-20 [facility] Bilirubin, totalOrdered By: Aldair Woods on 06-11-2024 Bilirubin [Mass/Vol] 0.39 mg/dL 0.00-1.30 [facility] CBC-Complete Blood Cnt No Di ffon 06-11-2024 Erythrocyte distribution width (RBC) [Ratio] 15.1 % High 11.6-14.6 [facility] Comment on above: Order Comment: 309-2 Performed By: #### L 100.0500, L501.9520, L501.9310, L500.4050 ####[facility] [address] [place], [address] Hematocrit (Bld) [Volume fraction] 39.7 % Low 40-54 [facility] Comment on above: Order Comment: 309-2 Performed By: #### L 100.0500, L501.9520, L501.9310, L500.4050 ####[facility] [address] [place], [address] Hemoglobin (Bld) [Mass/Vol] 12.8 g/dL Low 13.0-16.5 [facility] Comment on above: Order Comment: 309-2 Performed By: #### L 100.0500, L501.9520, L501.9310, L500.4050 ####[facility] [address] [place], [address] MCH (RBC) [Entitic mass] 32.3 pg High 27.0-32.0 [facility] Comment on above: Order Comment: 309-2 Performed By: #### L 100.0500, L501.9520, L501.9310, L500.4050 ####[facility] [address] [place], [address] MCHC (RBC) [Mass/Vol] 32.2 g/dL Normal 32-36 [facility] Comment on above: Order Comment: 309-2 Performed By: #### L 100.0500, L501.9520, L501.9310, L500.4050 ####[facility] [address] [place], [address] MCV (RBC) [Entitic vol] 100.3 fL High 80-94 [facility] Comment on above: Order Comment: 309-2 Performed By: #### L 100.0500, L501.9520, L501.9310, L500.4050 ####[facility] [address] [place], [address] Platelet mean volume (Bld) [Entitic vol] 10.5 fL Normal 6.2-12.0 [facility] Comment on above: Order Comment: 309-2 Performed By: #### L 100.0500, L501.9520, L501.9310, L500.4050 ####[facility] [address] [place], [address] Platelets (Bld) [#/Vol] 236 10*3/uL Normal 150-450 [facility] Comment on above: Order Comment: 309-2 Performed By: #### L 100.0500, L501.9520, L501.9310, L500.4050 ####[facility] [address] [place], [address] RBC (Bld) [#/Vol] 3.96 10*6/uL Low 4.6-6.2 [facility] Comment on above: Order Comment: 309-2 Performed By: #### L 100.0500, L501.9520, L501.9310, L500.4050 ####[facility] [address] [place], [address] RDW SD 56.7 fl High 35.1-43.9 [facility] Comment on above: Order Comment: 309-2 Performed By: #### L 100.0500, L501.9520, L501.9310, L500.4050 ####[facility] [address] [place], [address] WBC (Bld) [#/Vol] 5.4 10*3/uL Normal 4.4-11.0 [facility] Comment on above: Order Comment: 309-2 Performed By: #### L 100.0500, L501.9520, L501.9310, L500.4050 ####[facility] [address] [place], [address] Carbon dioxide, total [Moles /volume] in Central venous bloodOrdered By: Aldair Woods on 06-11-2024 CO2 [Moles/Vol] 31.5 mmol/L 21.0-32.0 [facility] Chloride assayOrdered By: Bubba Woods on 06-11-2024 Chloride [Moles/Vol] 91 mmol/L Low 98-108 [facility] Comprehensive Metabolic Prof ilon 06-11-2024 Albumin [Mass/Vol] 3.3 g/dL Low 3.4-4.8 [facility] Comment on above: Order Comment: 309-2 Performed By: #### L 100.0500, L501.9520, L501.9310, L500.4050 ####[facility] [address] [place], [address] Albumin/Globulin [Mass ratio] 0.8 {ratio} Low 0.9-2.4 [facility] Comment on above: Order Comment: 309-2 Performed By: #### L 100.0500, L501.9520, L501.9310, L500.4050 ####[facility] [address] [place], [address] ALK PHOS 94 U/L Normal 40-129 [facility] Comment on above: Order Comment: 309-2 Performed By: #### L 100.0500, L501.9520, L501.9310, L500.4050 ####[facility] [address] [place], [address] ALT [Catalytic activity/Vol] 17 U/L Normal <=46 [facility] Comment on above: Order Comment: 309-2 Performed By: #### L 100.0500, L501.9520, L501.9310, L500.4050 ####[facility] [address] [place], [address] AST [Catalytic activity/Vol] 20 U/L Normal <=37 [facility] Comment on above: Order Comment: 309-2 Performed By: #### L 100.0500, L501.9520, L501.9310, L500.4050 ####[facility] [address] [place], [address] Bilirubin [Mass/Vol] 0.39 mg/dL Normal 0.00-1.30 [facility] Comment on above: Order Comment: 309-2 Performed By: #### L 100.0500, L501.9520, L501.9310, L500.4050 ####[facility] [address] [place], [address] BUN/CRE 7.3 RATIO Low 10-20 [facility] Comment on above: Order Comment: 309-2 Performed By: #### L 100.0500, L501.9520, L501.9310, L500.4050 ####[facility] [address] [place], [address] Calcium [Mass/Vol] 9.0 mg/dL Normal 7.6-11.0 [facility] Comment on above: Order Comment: 309-2 Performed By: #### L 100.0500, L501.9520, L501.9310, L500.4050 ####[facility] [address] [place], [address] Chloride [Moles/Vol] 91 mmol/L Low 98-108 [facility] Comment on above: Order Comment: 309-2 Performed By: #### L 100.0500, L501.9520, L501.9310, L500.4050 ####[facility] [address] [place], [address] CO2 [Moles/Vol] 31.5 mmol/L Normal 21.0-32.0 [facility] Comment on above: Order Comment: 309-2 Performed By: #### L 100.0500, L501.9520, L501.9310, L500.4050 ####[facility] [address] [place], [address] Creatinine [Mass/Vol] 1.54 mg/dL High 0.70-1.20 [facility] Comment on above: Order Comment: 309-2 Performed By: #### L 100.0500, L501.9520, L501.9310, L500.4050 ####[facility] [address] [place], [address] GAP 10 Normal 5-15 [facility] Comment on above: Order Comment: 309-2 Performed By: #### L 100.0500, L501.9520, L501.9310, L500.4050 ####[facility] [address] [place], [address] GFR/1.73 sq M.predicted among non-blacks MDRD (S/P/Bld) [Vol rate/Area] 51 mL/min/{1.73_m2} Low >60 [facility] Comment on above: Order Comment: 309-2 Result Comment: mL/m in/1.73m2 CKD-EPI Creatinine Equation (2020) Performed By: #### L 100.0500, L501.9520, L501.9310, L500.4050 ####[facility] [address] [place], [address] Globulin (S) [Mass/Vol] 4.1 g/dL Normal 2.2-4.2 [facility] Comment on above: Order Comment: 309-2 Performed By: #### L 100.0500, L501.9520, L501.9310, L500.4050 ####[facility] [address] [place], [address] Glucose [Mass/Vol] 111 mg/dL High 70-99 [facility] Comment on above: Order Comment: 309-2 Performed By: #### L 100.0500, L501.9520, L501.9310, L500.4050 ####[facility] [address] [place], [address] Potassium [Moles/Vol] 3.3 mmol/L Normal 3.3-5.1 [facility] Comment on above: Order Comment: 309-2 Performed By: #### L 100.0500, L501.9520, L501.9310, L500.4050 ####[facility] [facility] [address] [place], [address] Sodium [Moles/Vol] 132 mmol/L Low 133-145 [facility] Comment on above: Order Comment: 309-2 Performed By: #### L 100.0500, L501.9520, L501.9310, L500.4050 ####[facility] [address] [place], [address] T PROT 7.4 g/dL Normal 5.9-8.4 [facility] Comment on above: Order Comment: 309-2 Performed By: #### L 100.0500, L501.9520, L501.9310, L500.4050 ####[facility] [address] [place], [address] Urea nitrogen [Mass/Vol] 11 mg/dL Normal 4-19 [facility] Comment on above: Order Comment: 309-2 Performed By: #### L 100.0500, L501.9520, L501.9310, L500.4050 ####[facility] [address] [place], [address] Erythrocyte distribution wid th ratioOrdered By: Aldair Woods on 06-11-2024 Erythrocyte distribution width (RBC) [Ratio] 15.1 % High 11.6-14.6 [facility] Erythrocyte distribution wid th standard deviationOrdered By: Aldair Woods on 06-11-2024 Erythrocyte distribution width (RBC) [Ratio] 56.7 fl High 35.1-43.9 [facility] Glomerular filtration rate ( GFR) estimation/1.73 sq m using serum, plasma, or whole bOrdered By: Aldair Woods on 06-11-2024 GFR/1.73 sq M.predicted among non-blacks MDRD (S/P/Bld) [Vol rate/Area] 51 mL/min/{1.73_m2} Low >60 [facility] Hematocrit Auto (Bld) [Volum e fraction]Ordered By: Aldair Woods on 06-11-2024 Hematocrit (Bld) [Volume fraction] 39.7 % Low 40-54 [facility] Hemoglobin measurementOrdere d By: Aldair Woods on 06-11-2024 Hemoglobin (Bld) [Mass/Vol] 12.8 g/dL Low 13.0-16.5 [facility] MCV (mean corpuscular volume ) determinationOrdered By: Aldair Woods on 06-11-2024 MCV (RBC) [Entitic vol] 100.3 fL High 80-94 [facility] Mean corpuscular hemoglobin (MCH) determinationOrdered By: Aldair Woods on 06-11-2024 MCH (RBC) [Entitic mass] 32.3 pg High 27.0-32.0 [facility] No Panel InformationOrdered By: Aldair Woods on 06-11-2024 20 U/L <38 [facility] Platelet countOrdered By: Bubba Woods on 06-11-2024 Platelets (Bld) [#/Vol] 236 10*3/uL 150-450 [facility] Potassium measurement (mass/ volume)Ordered By: Aldair Woods on 06-11-2024 Potassium (Unsp spec) [Mass/Vol] 3.3 mmol/L 3.3-5.1 [facility] RBC Auto (Bld) [#/Vol]Ordere d By: Aldair Woods on 06-11-2024 RBC (Bld) [#/Vol] 3.96 10*6/uL Low 4.6-6.2 [facility] Serum creatinine measurement (mass/volume)Ordered By: Aldair Woods on 06-11-2024 Creatinine [Mass/Vol] 1.54 mg/dL High 0.70-1.20 [facility] Serum globulin measurementOr dered By: Aldair Woods on 06-11-2024 Globulin (S) [Mass/Vol] 4.1 g/dL 2.2-4.2 [facility] Serum glucose measurement (m ass/volume)Ordered By: Aldair Woods on 06-11-2024 Glucose [Mass/Vol] 111 mg/dL High 70-99 [facility] Serum or plasma alanine cabello otransferase (ALT) measurementOrdered By: Aldair Woods on 06-11-2024 ALT [Catalytic activity/Vol] 17 U/L <47 [facility] Serum or plasma albumin vito urement (mass/volume)Ordered By: Aldair Woods on 06-11-2024 Albumin [Mass/Vol] 3.3 g/dL Low 3.4-4.8 [facility] Serum or plasma albumin/glob ulin mass ratioOrdered By: Aldair Woods on 06-11-2024 Albumin/Globulin [Mass ratio] 0.8 {ratio} Low 0.9-2.4 [facility] Serum or plasma alkaline jessica sphatase measurementOrdered By: Aldair Woods on 06-11-2024 ALP [Catalytic activity/Vol] 94 U/L 40-129 [facility] Serum or plasma calcium vito urement (mass/volume)Ordered By: Aldair Woods on 06-11-2024 Calcium [Mass/Vol] 9.0 mg/dL 7.6-11.0 [facility] Serum or plasma urea nitroge n measurement (mass/volume)Ordered By: Aldair Woods on 06-11-2024 Urea nitrogen [Mass/Vol] 11 mg/dL 4-19 [facility] Sodium levelOrdered By: Miguel Woods on 06-11-2024 Sodium [Moles/Vol] 132 mmol/L Low 133-145 [facility] T4 Total, Thyroxinon 025 T4 [Mass/Vol] 8.4 ug/dL Normal 4.5-12.1 [facility] Comment on above: Order Comment: 309-2 Performed By: #### L 100.0500, L501.9520, L501.9310, L500.4050 ####[facility] [address] [place], [place], [id number] TSH DL <= 0.005 mIU/L QnOrde red By: Aldair Woods on 06-11-2024 TSH Qn 1.070 uIU/mL 0.300-4.200 [facility] Thyroid Stim Hormone (TSH)on 06-11-2024 TSH 1.070 uIU/mL Normal 0.300-4.200 [facility] Comment on above: Order Comment: 309-2 Performed By: #### L 100.0500, L501.9520, L501.9310, L500.4050 ####[facility] [address] [place], [place], [id number] ThyroxineOrdered By: Aldair trujillo on 06-11-2024 T4 [Mass/Vol] 8.4 ug/dL 4.5-12.1 [facility] Total proteinOrdered By: Johnnie Woods on 06-11-2024 Protein [Mass/Vol] 7.4 g/dL 5.9-8.4 [facility] White blood cell (WBC) count Ordered By: Aldair Woods on 06-11-2024 WBC (Bld) [#/Vol] 5.4 10*3/uL 4.4-11.0 [facility] Random urine creatinine vito urement (mass/volume)Ordered By: Aldair Woods on 06-08-2024 Creatinine Unsp time (U) [Mass/Vol] 55.90 mg/dL 39.00-259.00 [facility] Urine albumin measurement wi th detection limit of 20 mg/L or less (mass/volume)Ordered By: Aldair Woods on 06-08-2024 Albumin DL <= 20 mg/L (U) [Mass/Vol] 76.3 mg/L NO RANGE EST. [facility] Anion gap in Serum or Plasma Ordered By: Aldair Woods on 06-06-2024 Anion gap [Moles/Vol] 11 mmol/L 07-17 [facility] BUN/creatinine ratioOrdered By: Aldair Woods on 06-06-2024 Urea nitrogen/Creatinine [Mass ratio] 16.4 mg/mg 12-22 [facility] Basic Metabolic Profile (BMP )on 06-06-2024 BUN/CRE 16.4 RATIO Normal 12-22 [facility] Comment on above: Order Comment: 309-2 Performed By: #### L 100.0500, L500.2500, L500.4100 ####[facility] [address] [place], [address] GAP 11 Normal 07-17 [facility] Comment on above: Order Comment: 309-2 Performed By: #### L 100.0500, L500.2500, L500.4100 ####[facility] [address] [place], [address] Potassium [Moles/Vol] 4.1 mmol/L Normal 3.3-5.1 [facility] Comment on above: Order Comment: 309-2 Result Comment: Hemo lysis present, Results??could be affected.?? Performed By: #### L 100.0500, L500.2500, L500.4100 ####[facility] [address] [place], [address] BUN Normal 4-19 [facility] Comment on above: Result Comment: Canc elled via OM: Order cancelled - Patient discharged Performed By: #### L 500.2500 ####[facility] [address] [place], [address] BUN/CRE Normal 10-20 [facility] Comment on above: Result Comment: Canc elled via OM: Order cancelled - Patient discharged Performed By: #### L 500.2500 ####[facility] [address] [place], [address] Calcium Normal 7.6-11.0 [facility] Comment on above: Result Comment: Canc elled via OM: Order cancelled - Patient discharged Performed By: #### L 500.2500 ####[facility] [address] [place], [address] CL Normal 98-108 [facility] Comment on above: Result Comment: Canc elled via OM: Order cancelled - Patient discharged Performed By: #### L 500.2500 ####[facility] [address] [place], [address] CO2 Normal 21.0-32.0 [facility] Comment on above: Result Comment: Canc elled via OM: Order cancelled - Patient discharged Performed By: #### L 500.2500 ####[facility] [address] [place], [address] CREAT,SERUM Normal 0.70-1.20 [facility] Comment on above: Result Comment: Canc elled via OM: Order cancelled - Patient discharged Performed By: #### L 500.2500 ####[facility] [address] [place], [address] eGFR Normal >60 [facility] Comment on above: Result Comment: Canc elled via OM: Order cancelled - Patient discharged Performed By: #### L 500.2500 ####[facility] [address] [place], [address] GAP Normal 5-15 [facility] Comment on above: Result Comment: Canc elled via OM: Order cancelled - Patient discharged Performed By: #### L 500.2500 ####[facility] [address] [place], [address] GLU Normal 70-99 [facility] Comment on above: Result Comment: Canc elled via OM: Order cancelled - Patient discharged Performed By: #### L 500.2500 ####[facility] [address] [place], [address] Potassium Normal 3.3-5.1 [facility] Comment on above: Result Comment: Canc elled via OM: Order cancelled - Patient discharged Performed By: #### L 500.2500 ####[facility] [address] [place], [address] Basic Metabolic Profile (BMP) Normal 133-145 [facility] Comment on above: Result Comment: Canc elled via OM: Order cancelled - Patient discharged Performed By: #### L 500.2500 ####[facility] [address] [place], [address] CBC-Complete Blood Cnt No Di ffon 06-06-2024 Erythrocyte distribution width (RBC) [Ratio] 15.8 % High 11.6-14.6 [facility] Comment on above: Order Comment: 309-2 Result Comment: This specimen has been REJECTED due to Laboratory criteria:Quanity Not Sufficient.LAB has been notified of need of recollection.06/06/24 1244 Jaelyn Rivero Performed By: #### L 100.0500, L500.2500, L500.4100 ####[facility] [address] [place], [address] Hematocrit (Bld) [Volume fraction] 40.7 % Normal 40-54 [facility] Comment on above: Order Comment: 309-2 Result Comment: This specimen has been REJECTED due to Laboratory criteria:Quanity Not Sufficient.LAB has been notified of need of recollection.06/06/24 1244 Jaelyn Clapper Performed By: #### L 100.0500, L500.2500, L500.4100 ####[facility] [address] [place], [address] Hemoglobin (Bld) [Mass/Vol] 12.9 g/dL Low 13.0-16.5 [facility] Comment on above: Order Comment: 309-2 Result Comment: This specimen has been REJECTED due to Laboratory criteria:Quanity Not Sufficient.LAB has been notified of need of recollection.06/06/24 1244 Jaelyn Clapper Performed By: #### L 100.0500, L500.2500, L500.4100 ####[facility] [address] [place], [address] MCH (RBC) [Entitic mass] 32.4 pg High 27.0-32.0 [facility] Comment on above: Order Comment: 309-2 Result Comment: This specimen has been REJECTED due to Laboratory criteria:Quanity Not Sufficient.LAB has been notified of need of recollection.06/06/24 1244 Jaelyn Clapper Performed By: #### L 100.0500, L500.2500, L500.4100 ####[facility] [address] [place], [address] MCHC (RBC) [Mass/Vol] 31.7 g/dL Low 32-36 [facility] Comment on above: Order Comment: 309-2 Result Comment: This specimen has been REJECTED due to Laboratory criteria:Quanity Not Sufficient.LAB has been notified of need of recollection.06/06/24 1244 Jaelyn Clapper Performed By: #### L 100.0500, L500.2500, L500.4100 ####[facility] [address] [place], [address] MCV (RBC) [Entitic vol] 102.3 fL High 80-94 [facility] Comment on above: Order Comment: 309-2 Result Comment: This specimen has been REJECTED due to Laboratory criteria:Quanity Not Sufficient.LAB has been notified of need of recollection.06/06/24 1244 Jaelyn Clapper Performed By: #### L 100.0500, L500.2500, L500.4100 ####[facility] [address] [place], [address] Platelet mean volume (Bld) [Entitic vol] 12.0 fL Normal 6.2-12.0 [facility] Comment on above: Order Comment: 309-2 Result Comment: This specimen has been REJECTED due to Laboratory criteria:Quanity Not Sufficient.LAB has been notified of need of recollection.06/06/24 1244 Jaelyn Clapper Performed By: #### L 100.0500, L500.2500, L500.4100 ####[facility] [address] [place], [address] Platelets (Bld) [#/Vol] 199 10*3/uL Normal 150-450 [facility] Comment on above: Order Comment: 309-2 Result Comment: This specimen has been REJECTED due to Laboratory criteria:Quanity Not Sufficient.LAB has been notified of need of recollection.06/06/24 1244 Jaelyn Clapper Performed By: #### L 100.0500, L500.2500, L500.4100 ####[facility] [address] [place], [address] RBC (Bld) [#/Vol] 3.98 10*6/uL Low 4.6-6.2 [facility] Comment on above: Order Comment: 309-2 Result Comment: This specimen has been REJECTED due to Laboratory criteria:Quanity Not Sufficient.LAB has been notified of need of recollection.06/06/24 1244 Jaelyn Clapper Performed By: #### L 100.0500, L500.2500, L500.4100 ####[facility] [address] [place], [address] RDW SD 59.8 fl High 35.1-43.9 [facility] Comment on above: Order Comment: 309-2 Result Comment: This specimen has been REJECTED due to Laboratory criteria:Quanity Not Sufficient.LAB has been notified of need of recollection.06/06/24 1244 Jaelyn Clapper Performed By: #### L 100.0500, L500.2500, L500.4100 ####[facility] [address] [place], [address] WBC (Bld) [#/Vol] 6.7 10*3/uL Normal 4.4-11.0 [facility] Comment on above: Order Comment: 309-2 Result Comment: This specimen has been REJECTED due to Laboratory criteria:Quanity Not Sufficient.LAB has been notified of need of recollection.06/06/24 1244 Jaelyn Clapper Performed By: #### L 100.0500, L500.2500, L500.4100 ####[facility] [address] [place], [address] HCT Normal 40-54 [facility] Comment on above: Result Comment: Canc elled via OM: Order cancelled - Patient discharged Performed By: #### L 100.0500 ####[facility] [address] [place], [address] HGB Normal 13.0-16.5 [facility] Comment on above: Result Comment: Canc elled via OM: Order cancelled - Patient discharged Performed By: #### L 100.0500 ####[facility] [address] [place], [address] MCH Normal 27.0-32.0 [facility] Comment on above: Result Comment: Canc elled via OM: Order cancelled - Patient discharged Performed By: #### L 100.0500 ####[facility] [address] [place], [address] MCHC Normal 32-36 [facility] Comment on above: Result Comment: Canc elled via OM: Order cancelled - Patient discharged Performed By: #### L 100.0500 ####[facility] [address] [place], [address] MCV Normal 80-94 [facility] Comment on above: Result Comment: Canc elled via OM: Order cancelled - Patient discharged Performed By: #### L 100.0500 ####[facility] [address] [place], [address] PLT Normal 150-450 [facility] Comment on above: Result Comment: Canc elled via OM: Order cancelled - Patient discharged Performed By: #### L 100.0500 ####[facility] [address] [place], [address] RBC Normal 4.6-6.2 [facility] Comment on above: Result Comment: Canc elled via OM: Order cancelled - Patient discharged Performed By: #### L 100.0500 ####[facility] [address] [place], [address] RDW CV Normal 11.6-14.6 [facility] Comment on above: Result Comment: Canc elled via OM: Order cancelled - Patient discharged Performed By: #### L 100.0500 ####[facility] [address] [place], [address] RDW SD Normal 35.1-43.9 [facility] Comment on above: Result Comment: Canc elled via OM: Order cancelled - Patient discharged Performed By: #### L 100.0500 ####[facility] [address] [place], [address] WBC Normal 4.4-11.0 [facility] Comment on above: Result Comment: Canc elled via OM: Order cancelled - Patient discharged Performed By: #### L 100.0500 ####[facility] [address] [place], [address] Calculated very low density lipoprotein (VLDL) cholesterol measurementOrdered By: Aldair Woods on 06-06-2024 Calculated very low density lipoprotein (VLDL) cholesterol measurement 36 mg/dL 5-40 [facility] Carbon dioxide, total [Moles /volume] in Central venous bloodOrdered By: Aldair Woods on 06-06-2024 CO2 [Moles/Vol] 24.7 mmol/L Normal 21.0-32.0 [facility] Comment on above: Order Comment: 309-2 Performed By: #### L 100.0500, L500.2500, L500.4100 ####[facility] [address] [place], [address] Chloride assayOrdered By: Bubba Woods on 06-06-2024 Chloride [Moles/Vol] 98 mmol/L Normal 98-108 [facility] Comment on above: Order Comment: 309-2 Performed By: #### L 100.0500, L500.2500, L500.4100 ####[facility] [address] [place], [address] Glomerular filtration rate ( GFR) estimation/1.73 sq m using serum, plasma, or whole bOrdered By: Aldair Woods on 06-06-2024 GFR/1.73 sq M.predicted among non-blacks MDRD (S/P/Bld) [Vol rate/Area] 36 mL/min/{1.73_m2} Low >60 [facility] Comment on above: Order Comment: 309-2 Result Comment: mL/m in/1.73m2 CKD-EPI Creatinine Equation (2020) Performed By: #### L 100.0500, L500.2500, L500.4100 ####[facility] [address] [place], [address] Hemoglobin A1con 06-06-2024 HbA1c (Bld) [Mass fraction] 5.6 % Low <=5.6 [facility] Comment on above: Order Comment: ADD T O PREVIOUS LAB Performed By: #### L 501.9985 ####[facility] [address] [place], [address] LDL calc ser/plasOrdered By: Aldair Woods on 06-06-2024 Cholesterol in LDL [Mass/Vol] 50 mg/dL Normal [facility] Comment on above: Order Comment: 309-2 Result Comment: Bord lvhvdh=407-725 mg/dL Higher Lrky=463 mg/dL or greater Performed By: #### L 100.0500, L500.2500, L500.4100 ####[facility] [address] [place], [address] Lipid Profileon 06-06-2024 CHOL:HDL 4.42 Normal [facility] Comment on above: Order Comment: 309-2 Performed By: #### L 100.0500, L500.2500, L500.4100 ####[facility] [address] [place], [address] Cholesterol in VLDL [Mass/Vol] 36 mg/dL Normal 5-40 [facility] Comment on above: Order Comment: 309-2 Performed By: #### L 100.0500, L500.2500, L500.4100 ####[facility] [address] [place], [address] Triglyceride [Mass/Vol] 182 mg/dL Normal [facility] Comment on above: Order Comment: 309-2 Result Comment: The drugs N-Acetylcysteine and Metamizole may falselydepress this assay.Normal range: <150 mg/dLBorderline High: 150-199 mg/dLHigh: 200-499 mg/dLVery High: >500 mg/dL Performed By: #### L 100.0500, L500.2500, L500.4100 ####[facility] [address] [place], [address] Potassium measurement (mass/ volume)Ordered By: Aldair Woods on 06-06-2024 Potassium (Unsp spec) [Mass/Vol] 4.1 mmol/L 3.3-5.1 [facility] Serum creatinine measurement (mass/volume)Ordered By: Aldair Woods on 06-06-2024 Creatinine [Mass/Vol] 2.04 mg/dL High 0.70-1.20 [facility] Comment on above: Order Comment: 309-2 Performed By: #### L 100.0500, L500.2500, L500.4100 ####[facility] [address] [place], [address] Serum glucose measurement (m ass/volume)Ordered By: Aldair Woods on 06-06-2024 Glucose [Mass/Vol] 106 mg/dL High 70-99 [facility] Comment on above: Order Comment: 309-2 Performed By: #### L 100.0500, L500.2500, L500.4100 ####[facility] [address] [place], [address] Serum or plasma calcium vito urement (mass/volume)Ordered By: Aldair Woods on 06-06-2024 Calcium [Mass/Vol] 9.2 mg/dL Normal 7.6-11.0 [facility] Comment on above: Order Comment: 309-2 Performed By: #### L 100.0500, L500.2500, L500.4100 ####[facility] [address] [place], [address] Serum or plasma cholesterol in HDL measurement (mass/volume)Ordered By: Aldair Woods on 06-06-2024 Cholesterol in HDL [Mass/Vol] 25 mg/dL Low [facility] Comment on above: Order Comment: 309-2 Result Comment: Ludy onal Cholesterol Education Program (NCEP) guidelines:<40 mg/dL: Low HDL-cholesterol (major risk factor for CHD)>= 60 mg/dL: High HDL-cholesterol (negative risk factor forCHD)HDL-cholesterol is affected by a number of factors, e.g.smoking, exercise, hormones, sex and age. Performed By: #### L 100.0500, L500.2500, L500.4100 ####[facility] [address] [place], [address] Serum or plasma cholesterol measurement (mass/volume)Ordered By: Aldair Woods on 06-06-2024 Cholesterol [Mass/Vol] 111 mg/dL Normal <=200 [facility] Comment on above: Order Comment: 309-2 Result Comment: Chol esterol level, Desirable <200 mg/dLBorderline high cholesterol 200-239 mg/dLHigh cholesterol >=240 mg/dLRecommendations of the NCEP Adult Treatment Panel for thefollowing risk-cutoff thresholds for the [place] Americanpulation. Performed By: #### L 100.0500, L500.2500, L500.4100 ####[facility] [address] [place], [address] Serum or plasma urea nitroge n measurement (mass/volume)Ordered By: Aldair Woods on 06-06-2024 Urea nitrogen [Mass/Vol] 33 mg/dL High - [facility] Comment on above: Order Comment: 309-2 Performed By: #### L 100.0500, L500.2500, L500.4100 ####[facility] [address] [place], [address] Sodium levelOrdered By: Miguel Woods on 06-06-2024 Sodium [Moles/Vol] 134 mmol/L Normal 133-145 [facility] Comment on above: Order Comment: 309-2 Performed By: #### L 100.0500, L500.2500, L500.4100 ####[facility] [address] [place], [address] Basic Metabolic Profile (BMP )on 06-05-2024 BUN Normal - [facility] Comment on above: Result Comment: Canc elled via OM: Order cancelled - Patient discharged Performed By: #### L 500.2500 ####[facility] [address] [place], [address] BUN/CRE Normal 10-20 [facility] Comment on above: Result Comment: Canc elled via OM: Order cancelled - Patient discharged Performed By: #### L 500.2500 ####[facility] [address] [place], [address] Calcium Normal 7.6-11.0 [facility] Comment on above: Result Comment: Canc elled via OM: Order cancelled - Patient discharged Performed By: #### L 500.2500 ####[facility] [address] [place], [address] CL Normal 98-108 [facility] Comment on above: Result Comment: Canc elled via OM: Order cancelled - Patient discharged Performed By: #### L 500.2500 ####[facility] [address] [place], [address] CO2 Normal 21.0-32.0 [facility] Comment on above: Result Comment: Canc elled via OM: Order cancelled - Patient discharged Performed By: #### L 500.2500 ####[facility] [address] [place], [address] CREAT,SERUM Normal 0.70-1.20 [facility] Comment on above: Result Comment: Canc elled via OM: Order cancelled - Patient discharged Performed By: #### L 500.2500 ####[facility] [address] [place], [address] eGFR Normal >60 [facility] Comment on above: Result Comment: Canc elled via OM: Order cancelled - Patient discharged Performed By: #### L 500.2500 ####[facility] [address] [place], [address] GAP Normal 5-15 [facility] Comment on above: Result Comment: Canc elled via OM: Order cancelled - Patient discharged Performed By: #### L 500.2500 ####[facility] [address] [place], [address] GLU Normal 70-99 [facility] Comment on above: Result Comment: Canc elled via OM: Order cancelled - Patient discharged Performed By: #### L 500.2500 ####[facility] [address] [place], [address] Potassium Normal 3.3-5.1 [facility] Comment on above: Result Comment: Canc elled via OM: Order cancelled - Patient discharged Performed By: #### L 500.2500 ####[facility] [address] [place], [address] Basic Metabolic Profile (BMP) Normal 133-145 [facility] Comment on above: Result Comment: Canc elled via OM: Order cancelled - Patient discharged Performed By: #### L 500.2500 ####[facility] [address] [place], [address] Anion gap [Moles/Vol]Ordered By: Robson George on 06-04-2024 Anion gap in Serum or Plasma 12 - [facility] Anion gap in Serum or Plasma Ordered By: Robson George on 06-04-2024 Anion gap [Moles/Vol] 12 mmol/L 07-17 [facility] BUN/creatinine ratioOrdered By: Robson George on 06-04-2024 Urea nitrogen/Creatinine [Mass ratio] 17.9 mg/mg - [facility] BUN/creatinine ratio 17.9 RATIO - [facility] Basic Metabolic Profile (BMP )on 06-04-2024 BUN/CRE 17.9 RATIO Normal - [facility] Comment on above: Performed By: #### L 500.2500 ####[facility] [address] [place], [address] Calcium [Mass/Vol] 10.0 mg/dL Normal 7.6-11.0 [facility] Comment on above: Performed By: #### L 500.2500 ####[facility] [address] [place], [address] Chloride [Moles/Vol] 107 mmol/L Normal 98-108 [facility] Comment on above: Performed By: #### L 500.2500 ####[facility] [address] [place], [address] CO2 [Moles/Vol] 23.7 mmol/L Normal 21.0-32.0 [facility] Comment on above: Performed By: #### L 500.2500 ####[facility] [address] [place], [address] Creatinine [Mass/Vol] 1.72 mg/dL High 0.70-1.20 [facility] Comment on above: Performed By: #### L 500.2500 ####[facility] [address] [place], [address] ECRCL 48.85 ml/min Low 50-250 [facility] Comment on above: Performed By: #### L 500.2500 ####[facility] [address] [place], [address] GAP 12 Normal 5-15 [facility] Comment on above: Performed By: #### L 500.2500 ####[facility] [address] [place], [address] GFR/1.73 sq M.predicted among non-blacks MDRD (S/P/Bld) [Vol rate/Area] 44 mL/min/{1.73_m2} Low >60 [facility] Comment on above: Result Comment: mL/m in/1.73m2 CKD-EPI Creatinine Equation (2020) Performed By: #### L 500.2500 ####[facility] [address] [place], [address] Glucose [Mass/Vol] 111 mg/dL High 70-99 [facility] Comment on above: Performed By: #### L 500.2500 ####[facility] [address] [place], [address] Potassium [Moles/Vol] 4.1 mmol/L Normal 3.3-5.1 [facility] Comment on above: Performed By: #### L 500.2500 ####[facility] [address] [place], [address] Sodium [Moles/Vol] 143 mmol/L Normal 133-145 [facility] Comment on above: Performed By: #### L 500.2500 ####[facility] [address] [place], [address] Urea nitrogen [Mass/Vol] 31 mg/dL High 4-19 [facility] Comment on above: Performed By: #### L 500.2500 ####[facility] [address] [place], [address] CBC-Complete Blood Cnt No Di ffon 06-04-2024 Erythrocyte distribution width (RBC) [Ratio] 16.1 % High 11.6-14.6 [facility] Comment on above: Performed By: #### L 100.0500 ####[facility] [address] [place], [address] Hematocrit (Bld) [Volume fraction] 46.1 % Normal 40-54 [facility] Comment on above: Performed By: #### L 100.0500 ####[facility] [address] [place], [address] Hemoglobin (Bld) [Mass/Vol] 14.3 g/dL Normal 13.0-16.5 [facility] Comment on above: Performed By: #### L 100.0500 ####[facility] [address] [place], [address] MCH (RBC) [Entitic mass] 32.3 pg High 27.0-32.0 [facility] Comment on above: Performed By: #### L 100.0500 ####[facility] [address] [place], [address] MCHC (RBC) [Mass/Vol] 31.0 g/dL Low 32-36 [facility] Comment on above: Performed By: #### L 100.0500 ####[facility] [address] [place], [address] MCV (RBC) [Entitic vol] 104.1 fL High 80-94 [facility] Comment on above: Performed By: #### L 100.0500 ####[facility] [address] [place], [address] Platelet mean volume (Bld) [Entitic vol] 11.1 fL Normal 6.2-12.0 [facility] Comment on above: Performed By: #### L 100.0500 ####[facility] [address] [place], [address] Platelets (Bld) [#/Vol] 191 10*3/uL Normal 150-450 [facility] Comment on above: Performed By: #### L 100.0500 ####[facility] [address] [place], [address] RBC (Bld) [#/Vol] 4.43 10*6/uL Low 4.6-6.2 [facility] Comment on above: Performed By: #### L 100.0500 ####[facility] [address] [place], [address] RDW SD 61.7 fl High 35.1-43.9 [facility] Comment on above: Performed By: #### L 100.0500 ####[facility] [address] [place], [address] WBC (Bld) [#/Vol] 7.1 10*3/uL Normal 4.4-11.0 [facility] Comment on above: Performed By: #### L 100.0500 ####[facility] [address] [place], [address] Calcium [Mass/Vol]Ordered By : Robson George on 06-04-2024 Serum or plasma calcium measurement (mass/volume) 10.0 mg/dL 7.6-11.0 [facility] Carbon dioxide, total [Moles /volume] in Central venous bloodOrdered By: Robson George on 06-04-2024 CO2 [Moles/Vol] 23.7 mmol/L 21.0-32.0 [facility] Carbon dioxide, total [Moles/volume] in Central venous blood 23.7 mmol/L 21.0-32.0 [facility] Chloride assayOrdered By: Luigi Georeg on 06-04-2024 Chloride [Moles/Vol] 107 mmol/L 98-108 [facility] Chloride assay 107 mmol/L 98-108 [facility] Creatinine [Mass/Vol]Ordered By: Robson George on 06-04-2024 Serum creatinine measurement (mass/volume) 1.72 mg/dL High 0.70-1.20 [facility] Culture, Blood (WB)on 2024 CUB Normal [facility] Comment on above: Performed By: #### L 503.6005, L501.4021, L300.3900, M200.1000, L500.4050, L300.4310, L100.0100 ####[facility] [address] [place], [place], [id number] Erythrocyte distribution wid th (RBC) [Ratio]Ordered By: Robson George on 06-04-2024 Erythrocyte distribution width ratio 16.1 % High 11.6-14.6 [facility] Erythrocyte distribution width standard deviation 61.7 fl High 35.1-43.9 [facility] Erythrocyte distribution wid th ratioOrdered By: Robson George on 06-04-2024 Erythrocyte distribution width (RBC) [Ratio] 16.1 % High 11.6-14.6 [facility] Erythrocyte distribution wid th standard deviationOrdered By: Robson George on 06-04-2024 Erythrocyte distribution width (RBC) [Ratio] 61.7 fl High 35.1-43.9 [facility] Estimation of creatinine melissa aranceOrdered By: Robson George on 06-04-2024 Estimation of creatinine clearance 48.85 ml/min Low 50-250 [facility] GFR/1.73 sq M.predicted theodore g non-blacks MDRD (S/P/Bld) [Vol rate/Area]Ordered By: Robson George on 06-04-2024 Glomerular filtration rate (GFR) estimation/1.73 sq m using serum, plasma, or whole b 44 Low >60 [facility] Glomerular filtration rate ( GFR) estimation/1.73 sq m using serum, plasma, or whole bOrdered By: Robson George on 06-04-2024 GFR/1.73 sq M.predicted among non-blacks MDRD (S/P/Bld) [Vol rate/Area] 44 mL/min/{1.73_m2} Low >60 [facility] Glucose [Mass/Vol]Ordered By : Robson George on 06-04-2024 Serum glucose measurement (mass/volume) 111 mg/dL High 70-99 [facility] Hematocrit Auto (Bld) [Volum e fraction]Ordered By: Robson George on 06-04-2024 Hematocrit (Bld) [Volume fraction] 46.1 % 40-54 [facility] Automated blood hematocrit (percentage) 46.1 % 40-54 [facility] Hemoglobin A1c percentageOrd ered By: Aldair Woods on 06-04-2024 HbA1c (Bld) [Mass fraction] 5.6 % Low >5.7 [facility] Hemoglobin measurementOrdere d By: Robson George on 06-04-2024 Hemoglobin (Bld) [Mass/Vol] 14.3 g/dL 13.0-16.5 [facility] Hemoglobin measurement 14.3 g/dL 13.0-16.5 [facility] MCV (RBC) [Entitic vol]Order ed By: Robson George on 06-04-2024 MCV (mean corpuscular volume) determination 104.1 fL High 80-94 [facility] MCV (mean corpuscular volume ) determinationOrdered By: Robson George on 06-04-2024 MCV (RBC) [Entitic vol] 104.1 fL High 80-94 [facility] Mean corpuscular hemoglobin (MCH) determinationOrdered By: Robson George on 06-04-2024 MCH (RBC) [Entitic mass] 32.3 pg High 27.0-32.0 [facility] Mean corpuscular hemoglobin (MCH) determination 32.3 pg High 27.0-32.0 [facility] Mean corpuscular hemoglobin concentration (MCHC) determinationOrdered By: Robson George on 06-04-2024 Mean corpuscular hemoglobin concentration (MCHC) determination 31.0 g/dL Low 32-36 [facility] Mean platelet volume determi nationOrdered By: Robson George on 06-04-2024 Mean platelet volume determination 11.1 fl 6.2-12.0 [facility] Platelet countOrdered By: Luigi George on 06-04-2024 Platelets (Bld) [#/Vol] 191 10*3/uL 150-450 [facility] Platelet count 191 K/mm3 150-450 [facility] Potassium (Unsp spec) [Mass/ Vol]Ordered By: Robson George on 06-04-2024 Potassium measurement (mass/volume) 4.1 mmol/L 3.3-5.1 [facility] Potassium measurement (mass/ volume)Ordered By: Robson George on 06-04-2024 Potassium (Unsp spec) [Mass/Vol] 4.1 mmol/L 3.3-5.1 [facility] RBC Auto (Bld) [#/Vol]Ordere d By: Robson George on 06-04-2024 RBC (Bld) [#/Vol] 4.43 10*6/uL Low 4.6-6.2 [facility] Automated blood erythrocyte count 4.43 M/mm3 Low 4.6-6.2 [facility] Serum creatinine measurement (mass/volume)Ordered By: Robson George on 06-04-2024 Creatinine [Mass/Vol] 1.72 mg/dL High 0.70-1.20 [facility] Serum glucose measurement (m ass/volume)Ordered By: Robson George on 06-04-2024 Glucose [Mass/Vol] 111 mg/dL High 70-99 [facility] Serum or plasma calcium vito urement (mass/volume)Ordered By: Robson George on 06-04-2024 Calcium [Mass/Vol] 10.0 mg/dL 7.6-11.0 [facility] Serum or plasma urea nitroge n measurement (mass/volume)Ordered By: Robson George on 06-04-2024 Urea nitrogen [Mass/Vol] 31 mg/dL High 06-21 [facility] Sodium levelOrdered By: Ander George on 06-04-2024 Sodium [Moles/Vol] 143 mmol/L 133-145 [facility] Sodium level 143 mmol/L 133-145 [facility] Urea nitrogen [Mass/Vol]Orde red By: Robson George on 06-04-2024 Serum or plasma urea nitrogen measurement (mass/volume) 31 mg/dL High 06-21 [facility] White blood cell (WBC) count Ordered By: Robson George on 06-04-2024 WBC (Bld) [#/Vol] 7.1 10*3/uL 4.4-11.0 [facility] White blood cell (WBC) count 7.1 K/mm3 4.4-11.0 [facility] Anion gap [Moles/Vol]Ordered By: Rosbon George on 06-03-2024 Anion gap in Serum or Plasma 12 5-15 [facility] BUN/creatinine ratioOrdered By: Robson George on 06-03-2024 BUN/creatinine ratio 16.5 RATIO 10- [facility] Basic Metabolic Profile (BMP )on 06-03-2024 BUN/CRE 16.5 RATIO Normal 10- [facility] Comment on above: Performed By: #### L 500.2500 ####[facility] [address] [place], [place], [id number] Calcium [Mass/Vol] 10.4 mg/dL Normal 7.6-11.0 [facility] Comment on above: Performed By: #### L 500.2500 ####[facility] [address] [place], [place], [id number] Chloride [Moles/Vol] 110 mmol/L High 98-108 [facility] Comment on above: Performed By: #### L 500.2500 ####[facility] [address] [place], [address] CO2 [Moles/Vol] 22.4 mmol/L Normal 21.0-32.0 [facility] Comment on above: Performed By: #### L 500.2500 ####[facility] [address] [place], [address] Creatinine [Mass/Vol] 1.72 mg/dL High 0.70-1.20 [facility] Comment on above: Performed By: #### L 500.2500 ####[facility] [address] [place], [address] ECRCL 48.67 ml/min Low 50-250 [facility] Comment on above: Performed By: #### L 500.2500 ####[facility] [address] [place], [address] GAP 12 Normal 5-15 [facility] Comment on above: Performed By: #### L 500.2500 ####[facility] [address] [place], [address] GFR/1.73 sq M.predicted among non-blacks MDRD (S/P/Bld) [Vol rate/Area] 44 mL/min/{1.73_m2} Low >60 [facility] Comment on above: Result Comment: mL/m in/1.73m2 CKD-EPI Creatinine Equation (2020) Performed By: #### L 500.2500 ####[facility] [address] [place], [address] Glucose [Mass/Vol] 93 mg/dL Normal 70-99 [facility] Comment on above: Performed By: #### L 500.2500 ####[facility] [address] [place], [address] Potassium [Moles/Vol] 4.3 mmol/L Normal 3.3-5.1 [facility] Comment on above: Result Comment: Hemo lysis present, Results??could be affected.?? Performed By: #### L 500.2500 ####[facility] [address] [place], [address] Sodium [Moles/Vol] 145 mmol/L Normal 133-145 [facility] Comment on above: Performed By: #### L 500.2500 ####[facility] [address] [place], [address] Urea nitrogen [Mass/Vol] 28 mg/dL High 4-19 [facility] Comment on above: Performed By: #### L 500.2500 ####[facility] [address] [place], [address] Calcium [Mass/Vol]Ordered By : Robson George on 06-03-2024 Serum or plasma calcium measurement (mass/volume) 10.4 mg/dL 7.6-11.0 [facility] Carbon dioxide, total [Moles /volume] in Central venous bloodOrdered By: Robson George on 06-03-2024 Carbon dioxide, total [Moles/volume] in Central venous blood 22.4 mmol/L 21.0-32.0 [facility] Chloride assayOrdered By: Luigi George on 06-03-2024 Chloride assay 110 mmol/L High 98-108 [facility] Creatinine [Mass/Vol]Ordered By: Robson George on 06-03-2024 Serum creatinine measurement (mass/volume) 1.72 mg/dL High 0.70-1.20 [facility] Estimation of creatinine melissa aranceOrdered By: Robson George on 06-03-2024 Estimation of creatinine clearance 48.67 ml/min Low 50-250 [facility] GFR/1.73 sq M.predicted theodore g non-blacks MDRD (S/P/Bld) [Vol rate/Area]Ordered By: Robson George on 06-03-2024 Glomerular filtration rate (GFR) estimation/1.73 sq m using serum, plasma, or whole b 44 Low >60 [facility] Glucose [Mass/Vol]Ordered By : Robson George on 06-03-2024 Serum glucose measurement (mass/volume) 93 mg/dL 70-99 [facility] Potassium (Unsp spec) [Mass/ Vol]Ordered By: Robson George on 06-03-2024 Potassium measurement (mass/volume) 4.3 mmol/L 3.3-5.1 [facility] Sodium levelOrdered By: Ander George on 06-03-2024 Sodium level 145 mmol/L 133-145 [facility] Urea nitrogen [Mass/Vol]Orde red By: Robson George on 06-03-2024 Serum or plasma urea nitrogen measurement (mass/volume) 28 mg/dL High 4-19 [facility] Basic Metabolic Profile (BMP )on 06-02-2024 BUN/CRE 15.8 RATIO Normal 10-20 [facility] Comment on above: Performed By: #### L 500.2500 ####[facility] [address] [place], [address] Calcium [Mass/Vol] 9.6 mg/dL Normal 7.6-11.0 [facility] Comment on above: Performed By: #### L 500.2500 ####[facility] [address] [place], [address] Chloride [Moles/Vol] 115 mmol/L High 98-108 [facility] Comment on above: Performed By: #### L 500.2500 ####[facility] [address] [place], [address] CO2 [Moles/Vol] 17.8 mmol/L Low 21.0-32.0 [facility] Comment on above: Performed By: #### L 500.2500 ####[facility] [address] [place], [address] Creatinine [Mass/Vol] 1.66 mg/dL High 0.70-1.20 [facility] Comment on above: Performed By: #### L 500.2500 ####[facility] [address] [place], [address] ECRCL 50.38 ml/min Normal 50-250 [facility] Comment on above: Performed By: #### L 500.2500 ####[facility] [address] [place], [address] GAP 12 Normal 5-15 [facility] Comment on above: Performed By: #### L 500.2500 ####[facility] [address] [place], [address] GFR/1.73 sq M.predicted among non-blacks MDRD (S/P/Bld) [Vol rate/Area] 46 mL/min/{1.73_m2} Low >60 [facility] Comment on above: Result Comment: mL/m in/1.73m2 CKD-EPI Creatinine Equation (2020) Performed By: #### L 500.2500 ####[facility] [address] [place], [address] Glucose [Mass/Vol] 102 mg/dL High 70-99 [facility] Comment on above: Performed By: #### L 500.2500 ####[facility] [address] [place], [address] Potassium [Moles/Vol] 4.4 mmol/L Normal 3.3-5.1 [facility] Comment on above: Performed By: #### L 500.2500 ####[facility] [address] [place], [address] Sodium [Moles/Vol] 145 mmol/L Normal 133-145 [facility] Comment on above: Performed By: #### L 500.2500 ####[facility] [address] [place], [address] Urea nitrogen [Mass/Vol] 26 mg/dL High 4-19 [facility] Comment on above: Performed By: #### L 500.2500 ####[facility] [address] [place], [address] Absolute lymphocyte countOrd ered By: Mark Gonzalez on 06-01-2024 Lymphocytes Auto (Unsp spec) [#/Vol] 0.89 10*3/uL 0.83-4.51 [facility] Absolute neutrophil countOrd ered By: Mark Gonzalez on 06-01-2024 Absolute neutrophil count 7.0 X10^3/uL 2.0-7.7 [facility] Automated lymphocyte count a s percentage of total leukocytesOrdered By: Mark Gonzalez on 06-01-2024 Lymphocytes/100 WBC Auto (Unsp spec) 10.1 % Low 19-41 [facility] Basic Metabolic Profile (BMP )on 06-01-2024 BUN/CRE 18.2 RATIO Normal 10-20 [facility] Comment on above: Performed By: #### L 500.2500 ####[facility] [address] [place], [address] Calcium [Mass/Vol] 9.2 mg/dL Normal 7.6-11.0 [facility] Comment on above: Performed By: #### L 500.2500 ####[facility] [address] [place], [address] Chloride [Moles/Vol] 117 mmol/L High 98-108 [facility] Comment on above: Performed By: #### L 500.2500 ####[facility] [address] [place], [address] CO2 [Moles/Vol] 20.2 mmol/L Low 21.0-32.0 [facility] Comment on above: Performed By: #### L 500.2500 ####[facility] [address] [place], [address] Creatinine [Mass/Vol] 1.59 mg/dL High 0.70-1.20 [facility] Comment on above: Performed By: #### L 500.2500 ####[facility] [address] [place], [address] ECRCL 52.22 ml/min Normal 50-250 [facility] Comment on above: Performed By: #### L 500.2500 ####[facility] [address] [place], [address] GAP 12 Normal 5-15 [facility] Comment on above: Performed By: #### L 500.2500 ####[facility] [address] [place], [address] GFR/1.73 sq M.predicted among non-blacks MDRD (S/P/Bld) [Vol rate/Area] 49 mL/min/{1.73_m2} Low >60 [facility] Comment on above: Result Comment: mL/m in/1.73m2 CKD-EPI Creatinine Equation (2020) Performed By: #### L 500.2500 ####[facility] [address] [place], [address] Glucose [Mass/Vol] 101 mg/dL High 70-99 [facility] Comment on above: Performed By: #### L 500.2500 ####[facility] [address] [place], [address] Potassium [Moles/Vol] 4.9 mmol/L Normal 3.3-5.1 [facility] Comment on above: Result Comment: Hemo lysis present, Results??could be affected.?? Performed By: #### L 500.2500 ####[facility] [address] [place], [address] Sodium [Moles/Vol] 149 mmol/L High 133-145 [facility] Comment on above: Performed By: #### L 500.2500 ####[facility] [address] [place], [address] Urea nitrogen [Mass/Vol] 29 mg/dL High 4-19 [facility] Comment on above: Performed By: #### L 500.2500 ####[facility] [address] [place], [address] Basophil percentageOrdered B y: Mark Gonzalez on 06-01-2024 Basophils/100 WBC (Bld) 0.2 % 0-1 [facility] Basophil percentage 0.2 % 0-1 [facility] CBC W/Diff, Automatedon 05-05 Absolute Lymph 0.89 X10 3/uL Normal 0.83-4.51 [facility] Comment on above: Performed By: #### L 100.0100 ####[facility] [address] [place], [address] Absolute Neut 7.0 X10 3/uL Normal 2.0-7.7 [facility] Comment on above: Performed By: #### L 100.0100 ####[facility] [address] [place], [address] Basophils/100 WBC (Bld) 0.2 % Normal 0-1 [facility] Comment on above: Performed By: #### L 100.0100 ####[facility] [address] [place], [address] Eosinophils/100 WBC (Bld) 4.8 % Normal 0-5 [facility] Comment on above: Performed By: #### L 100.0100 ####[facility] [address] [place], [address] Erythrocyte distribution width (RBC) [Ratio] 17.0 % High 11.6-14.6 [facility] Comment on above: Performed By: #### L 100.0100 ####[facility] [address] [place], [address] Hematocrit (Bld) [Volume fraction] 46.4 % Normal 40-54 [facility] Comment on above: Performed By: #### L 100.0100 ####[facility] [address] [place], [address] Hemoglobin (Bld) [Mass/Vol] 13.8 g/dL Normal 13.0-16.5 [facility] Comment on above: Performed By: #### L 100.0100 ####[facility] [address] [place], [address] IG% 0.700 Normal 0.0-0.9 [facility] Comment on above: Result Comment: IG% - Immature Granulocytes (promyelocytes, myelocytes andmetamyelocytes) > 1% indicates that a LEFT SHIFT is Present. Performed By: #### L 100.0100 ####[facility] [address] [place], [address] Lymphocytes/100 WBC (Bld) 10.1 % Low 19-41 [facility] Comment on above: Performed By: #### L 100.0100 ####[facility] [address] [place], [address] MCH (RBC) [Entitic mass] 32.7 pg High 27.0-32.0 [facility] Comment on above: Performed By: #### L 100.0100 ####[facility] [address] [place], [address] MCHC (RBC) [Mass/Vol] 29.7 g/dL Low 32-36 [facility] Comment on above: Performed By: #### L 100.0100 ####[facility] [address] [place], [address] MCV (RBC) [Entitic vol] 110.0 fL High 80-94 [facility] Comment on above: Performed By: #### L 100.0100 ####[facility] [address] [place], [address] Monocytes/100 WBC (Bld) 5.2 % Normal 0-10 [facility] Comment on above: Performed By: #### L 100.0100 ####[facility] [address] [place], [address] Neutrophils/100 WBC (Bld) 79.0 % High 47-70 [facility] Comment on above: Performed By: #### L 100.0100 ####[facility] [address] [place], [address] Nucleated RBC (Bld) [#/Vol] 0 10*3/uL Normal 0-5 [facility] Comment on above: Performed By: #### L 100.0100 ####[facility] [address] [place], [address] Platelet mean volume (Bld) [Entitic vol] 10.9 fL Normal 6.2-12.0 [facility] Comment on above: Performed By: #### L 100.0100 ####[facility] [address] [place], [address] Platelets (Bld) [#/Vol] 145 10*3/uL Low 150-450 [facility] Comment on above: Performed By: #### L 100.0100 ####[facility] [address] [place], [address] RBC (Bld) [#/Vol] 4.22 10*6/uL Low 4.6-6.2 [facility] Comment on above: Performed By: #### L 100.0100 ####[facility] [address] [place], [address] RDW SD 69.6 fl High 35.1-43.9 [facility] Comment on above: Performed By: #### L 100.0100 ####[facility] [address] [place], [address] WBC (Bld) [#/Vol] 8.8 10*3/uL Normal 4.4-11.0 [facility] Comment on above: Performed By: #### L 100.0100 ####[facility] [address] [place], [address] Eosinophil percentageOrdered By: Mark Gonzalez on 06-01-2024 Eosinophils/100 WBC (Bld) 4.8 % 0-5 [facility] Eosinophil percentage 4.8 % 0-5 [facility] Erythrocyte distribution wid th (RBC) [Entitic vol]Ordered By: Mark Gonzalez on 06-01-2024 Erythrocyte distribution width standard deviation 69.6 fl High 35.1-43.9 [facility] Erythrocyte distribution wid th (RBC) [Ratio]Ordered By: Mark Gonzalez on 06-01-2024 Erythrocyte distribution width ratio 17.0 % High 11.6-14.6 [facility] Hematocrit Auto (Bld) [Volum e fraction]Ordered By: Mark Gonzalez on 06-01-2024 Automated blood hematocrit (percentage) 46.4 % 40-54 [facility] Hemoglobin measurementOrdere d By: Mark Gonzalez on 06-01-2024 Hemoglobin measurement 13.8 g/dL 13.0-16.5 [facility] Immature granulocytes/100 WB C Auto (Bld)Ordered By: Mark Gonzalez on 06-01-2024 Immature granulocytes/100 WBC (Bld) 0.700 % 0.0-0.9 [facility] Automated immature granulocyte percentage 0.700 % 0.0-0.9 [facility] Lymphocytes Auto (Unsp spec) [#/Vol]Ordered By: Mark Gonzalez on 06-01-2024 Absolute lymphocyte count 0.89 X10^3/uL 0.83-4.51 [facility] Lymphocytes/100 WBC Auto (Un sp spec)Ordered By: Mark Gonzalez on 06-01-2024 Automated lymphocyte count as percentage of total leukocytes 10.1 % Low 19-41 [facility] MCV (RBC) [Entitic vol]Order ed By: Mark Gonzalez on 06-01-2024 MCV (mean corpuscular volume) determination 110.0 fL High 80-94 [facility] Mean corpuscular hemoglobin (MCH) determinationOrdered By: Mark Gonzalez on 06-01-2024 Mean corpuscular hemoglobin (MCH) determination 32.7 pg High 27.0-32.0 [facility] Mean corpuscular hemoglobin concentration (MCHC) determinationOrdered By: Mark Gonzalez on 06-01-2024 Mean corpuscular hemoglobin concentration (MCHC) determination 29.7 g/dL Low 32-36 [facility] Mean platelet volume determi nationOrdered By: Mark Gonzalez on 06-01-2024 Mean platelet volume determination 10.9 fl 6.2-12.0 [facility] Monocyte percentageOrdered B y: Mark Gonzalez on 06-01-2024 Monocytes/100 WBC (Bld) 5.2 % 0-10 [facility] Monocyte percentage 5.2 % 0-10 [facility] Neutrophil percentageOrdered By: Mark Gonzalez on 06-01-2024 Neutrophils/100 WBC (Bld) 79.0 % High 47-70 [facility] Neutrophil percentage 79.0 % High 47-70 [facility] Nucleated red blood cell per centageOrdered By: Mark Gonzalez on 06-01-2024 Nucleated red blood cell percentage 0 % 0-5 [facility] Platelet countOrdered By: Doni Gonzalez on 06-01-2024 Platelet count 145 K/mm3 Low 150-450 [facility] RBC Auto (Bld) [#/Vol]Ordere d By: Mark Gonzalez on 06-01-2024 Automated blood erythrocyte count 4.22 M/mm3 Low 4.6-6.2 [facility] Trough vancomycin levelOrder ed By: Mark Gonzalez on 06-01-2024 Vancomycin trough [Mass/Vol] 14.7 ug/mL 5.0-15.0 [facility] Vancomycin trough [Mass/Vol] Ordered By: Mark Gonzalez on 06-01-2024 Trough vancomycin level 14.7 ug/mL 5.0-15.0 [facility] Vancomycin, Trough Levelon 0 06-01-2024 VANCO, TROUGH 14.7 ug/mL Normal 5.0-15.0 [facility] Comment on above: Order Comment: 1000 Result Comment: Vinayak mmended goal trough ranges are generally 10-15 mcg/mlfor less severe/complicated infections such as cellulitisor UTI and 15-20 mcg/ml for more severe/complicatedinfections such as bacteremia/sepsis, osteomyelitis,pneumonia or meningitis. Goal trough ranges should takeinto account indication, patient-specific factors andorganism ANTELMO.VANCOMYCIN STANDARED DRUG THERAPY TROUGH LEVEL: 5.0 - 15.0 mg/LVANCOMYCIN HIGH INTENSITY THERAPY TROUGH LEVEL: 15.0 - 20.0 mg/LHigh Intensity therapy recommended for serious lifethreatening infections include:- Jaznulwtgy-Uvyijllqkzes-Ncvmoqoxh (Ventilator/Healtcare Associated)-SepsisPLEASE CONTACT PHARMACY SERVICES (#5053) FOR INTERPRETATIONOF RESULTS. Performed By: #### L 501.8820 ####[facility] [address] [facility] [address] White blood cell (WBC) count Ordered By: Mark Gonzalez on 06-01-2024 White blood cell (WBC) count 8.8 K/mm3 4.4-11.0 [facility] Basic Metabolic Profile (BMP )on 05-31-2024 BUN/CRE 18.2 RATIO Normal 10-20 [facility] Comment on above: Performed By: #### L 500.2500 ####[facility] [address] [facility] [address] Calcium [Mass/Vol] 9.2 mg/dL Normal 7.6-11.0 [facility] Comment on above: Performed By: #### L 500.2500 ####[facility] [address]Jeff [facility] [address] Chloride [Moles/Vol] 124 mmol/L High 98-108 [facility] Comment on above: Performed By: #### L 500.2500 ####[facility] [address] [facility] [address] CO2 [Moles/Vol] 20.6 mmol/L Low 21.0-32.0 [facility] Comment on above: Performed By: #### L 500.2500 ####[facility] [address] [place], [address] Creatinine [Mass/Vol] 1.63 mg/dL High 0.70-1.20 [facility] Comment on above: Performed By: #### L 500.2500 ####[facility] [address] [place], [address] ECRCL 50.94 ml/min Normal 50-250 [facility] Comment on above: Performed By: #### L 500.2500 ####[facility] [address] [place], [address] GAP 9 Normal 5-15 [facility] Comment on above: Performed By: #### L 500.2500 ####[facility] [address] [place], [address] GFR/1.73 sq M.predicted among non-blacks MDRD (S/P/Bld) [Vol rate/Area] 47 mL/min/{1.73_m2} Low >60 [facility] Comment on above: Result Comment: mL/m in/1.73m2 CKD-EPI Creatinine Equation (2020) Performed By: #### L 500.2500 ####[facility] [address] [place], [address] Glucose [Mass/Vol] 114 mg/dL High 70-99 [facility] Comment on above: Performed By: #### L 500.2500 ####[facility] [address] [place], [address] Potassium [Moles/Vol] 4.8 mmol/L Normal 3.3-5.1 [facility] Comment on above: Performed By: #### L 500.2500 ####[facility] [address] [place], [address] Sodium [Moles/Vol] 153 mmol/L High 133-145 [facility] Comment on above: Performed By: #### L 500.2500 ####[facility] [address] [place], [address] Urea nitrogen [Mass/Vol] 30 mg/dL High 4-19 [facility] Comment on above: Performed By: #### L 500.2500 ####[facility] [address] [place], [address] Basic Metabolic Profile (BMP )on 05-30-2024 BUN/CRE 20.2 RATIO High 10-20 [facility] Comment on above: Performed By: #### L 500.2500 ####[facility] [address] [place], [address] Calcium [Mass/Vol] 9.0 mg/dL Normal 7.6-11.0 [facility] Comment on above: Performed By: #### L 500.2500 ####[facility] [address] [place], [address] Chloride [Moles/Vol] 122 mmol/L High 98-108 [facility] Comment on above: Performed By: #### L 500.2500 ####[facility] [address] [place], [address] CO2 [Moles/Vol] 21.0 mmol/L Normal 21.0-32.0 [facility] Comment on above: Performed By: #### L 500.2500 ####[facility] [address] [place], [address] Creatinine [Mass/Vol] 1.49 mg/dL High 0.70-1.20 [facility] Comment on above: Performed By: #### L 500.2500 ####[facility] [address] [place], [address] ECRCL 60.55 ml/min Normal 50-250 [facility] Comment on above: Performed By: #### L 500.2500 ####[facility] [address] [place], [address] GAP 10 Normal 5-15 [facility] Comment on above: Performed By: #### L 500.2500 ####[facility] [address] [place], [address] GFR/1.73 sq M.predicted among non-blacks MDRD (S/P/Bld) [Vol rate/Area] 53 mL/min/{1.73_m2} Low >60 [facility] Comment on above: Result Comment: mL/m in/1.73m2 CKD-EPI Creatinine Equation (2020) Performed By: #### L 500.2500 ####[facility] [address] [place], [address] Glucose [Mass/Vol] 177 mg/dL High 70-99 [facility] Comment on above: Performed By: #### L 500.2500 ####[facility] [address] [place], [address] Potassium [Moles/Vol] 4.3 mmol/L Normal 3.3-5.1 [facility] Comment on above: Performed By: #### L 500.2500 ####[facility] [address] [place], [address] Sodium [Moles/Vol] 152 mmol/L High 133-145 [facility] Comment on above: Performed By: #### L 500.2500 ####[facility] [address] [place], [address] Urea nitrogen [Mass/Vol] 30 mg/dL High 4-19 [facility] Comment on above: Performed By: #### L 500.2500 ####[facility] [address] [place], [address] BUN/CRE 20.3 RATIO High 10-20 [facility] Comment on above: Order Comment: OKAY TO DRAW AT 0800 PER JOEL Performed By: #### L 500.2500, L100.0100 ####[facility] [address] [place], [address] Calcium [Mass/Vol] 9.1 mg/dL Normal 7.6-11.0 [facility] Comment on above: Order Comment: OKAY TO DRAW AT 0800 PER JOEL Performed By: #### L 500.2500, L100.0100 ####[facility] [address] [place], [address] Chloride [Moles/Vol] 121 mmol/L High 98-108 [facility] Comment on above: Order Comment: OKAY TO DRAW AT 0800 PER JOEL Performed By: #### L 500.2500, L100.0100 ####[facility] [address] [place], [address] CO2 [Moles/Vol] 22.9 mmol/L Normal 21.0-32.0 [facility] Comment on above: Order Comment: OKAY TO DRAW AT 0800 PER JOEL Performed By: #### L 500.2500, L100.0100 ####[facility] [address] [place], [address] Creatinine [Mass/Vol] 1.56 mg/dL High 0.70-1.20 [facility] Comment on above: Order Comment: OKAY TO DRAW AT 0800 PER JOEL Performed By: #### L 500.2500, L100.0100 ####[facility] [address] [place], [address] ECRCL 57.83 ml/min Normal 50-250 [facility] Comment on above: Order Comment: OKAY TO DRAW AT 0800 PER JOEL Performed By: #### L 500.2500, L100.0100 ####[facility] [address] [place], [address] GAP 9 Normal 5-15 [facility] Comment on above: Order Comment: OKAY TO DRAW AT 0800 PER JOEL Performed By: #### L 500.2500, L100.0100 ####[facility] [address] [place], [address] GFR/1.73 sq M.predicted among non-blacks MDRD (S/P/Bld) [Vol rate/Area] 50 mL/min/{1.73_m2} Low >60 [facility] Comment on above: Order Comment: OKAY TO DRAW AT 0800 PER JOEL Result Comment: mL/m in/1.73m2 CKD-EPI Creatinine Equation (2020) Performed By: #### L 500.2500, L100.0100 ####[facility] [address] [place], [address] Glucose [Mass/Vol] 128 mg/dL High 70-99 [facility] Comment on above: Order Comment: OKAY TO DRAW AT 0800 PER JOEL Performed By: #### L 500.2500, L100.0100 ####[facility] [address] [place], [address] Potassium [Moles/Vol] 4.7 mmol/L Normal 3.3-5.1 [facility] Comment on above: Order Comment: OKAY TO DRAW AT 0800 PER JOEL Performed By: #### L 500.2500, L100.0100 ####[facility] [address] [place], [address] Sodium [Moles/Vol] 153 mmol/L High 133-145 [facility] Comment on above: Order Comment: OKAY TO DRAW AT 0800 PER JOEL Performed By: #### L 500.2500, L100.0100 ####[facility] [address] [place], [address] Urea nitrogen [Mass/Vol] 32 mg/dL High 4-19 [facility] Comment on above: Order Comment: OKAY TO DRAW AT 0800 PER JOEL Performed By: #### L 500.2500, L100.0100 ####[facility] [address] [place], [address] BUN Normal 4-19 [facility] Comment on above: Result Comment: DPLI LAURIE WITH MORNING RUN, SEE 0328:C40 Performed By: #### L 500.2500 ####[facility] [address] [place], [address] BUN/CRE Normal 10-20 [facility] Comment on above: Result Comment: DPLI LAURIE WITH MORNING RUN, SEE 0328:C40 Performed By: #### L 500.2500 ####[facility] [address] [place], [address] Calcium Normal 7.6-11.0 [facility] Comment on above: Result Comment: DPLI LAURIE WITH MORNING RUN, SEE 0328:C40 Performed By: #### L 500.2500 ####[facility] [address] [place], [address] CL Normal 98-108 [facility] Comment on above: Result Comment: DPLI LAURIE WITH MORNING RUN, SEE 0328:C40 Performed By: #### L 500.2500 ####[facility] [address] [place], [address] CO2 Normal 21.0-32.0 [facility] Comment on above: Result Comment: DPLI LAURIE WITH MORNING RUN, SEE 0328:C40 Performed By: #### L 500.2500 ####[facility] [address] [place], [address] CREAT,SERUM Normal 0.70-1.20 [facility] Comment on above: Result Comment: DPLI LAURIE WITH MORNING RUN, SEE 0328:C40 Performed By: #### L 500.2500 ####[facility] [address] [place], [address] eGFR Normal >60 [facility] Comment on above: Result Comment: DPLI LAURIE WITH MORNING RUN, SEE 0328:C40 Performed By: #### L 500.2500 ####[facility] [address] [place], [address] GAP Normal 5-15 [facility] Comment on above: Result Comment: DPLI LAURIE WITH MORNING RUN, SEE 0328:C40 Performed By: #### L 500.2500 ####[facility] [address] [place], [address] GLU Normal 70-99 [facility] Comment on above: Result Comment: DPLI LAURIE WITH MORNING RUN, SEE 0328:C40 Performed By: #### L 500.2500 ####[facility] [address] [place], [address] Potassium Normal 3.3-5.1 [facility] Comment on above: Result Comment: DPLI LAURIE WITH MORNING RUN, SEE 0328:C40 Performed By: #### L 500.2500 ####[facility] [address] [place], [address] Basic Metabolic Profile (BMP) Normal 133-145 [facility] Comment on above: Result Comment: DPLI LAURIE WITH MORNING RUN, SEE 0328:C40 Performed By: #### L 500.2500 ####[facility] [address] [place], [address] BUN/CRE 19.0 RATIO Normal 10-20 [facility] Comment on above: Performed By: #### L 500.2500 ####[facility] [address] [place], [address] Calcium [Mass/Vol] 8.7 mg/dL Normal 7.6-11.0 [facility] Comment on above: Performed By: #### L 500.2500 ####[facility] [address] [place], [address] Chloride [Moles/Vol] 126 mmol/L High 98-108 [facility] Comment on above: Performed By: #### L 500.2500 ####[facility] [address] [place], [address] CO2 [Moles/Vol] 21.5 mmol/L Normal 21.0-32.0 [facility] Comment on above: Performed By: #### L 500.2500 ####[facility] [address] [place], [address] Creatinine [Mass/Vol] 1.57 mg/dL High 0.70-1.20 [facility] Comment on above: Performed By: #### L 500.2500 ####[facility] [address] [place], [address] ECRCL 57.41 ml/min Normal 50-250 [facility] Comment on above: Performed By: #### L 500.2500 ####[facility] [address] [place], [address] GAP 13 Normal 5-15 [facility] Comment on above: Performed By: #### L 500.2500 ####[facility] [address] [place], [address] GFR/1.73 sq M.predicted among non-blacks MDRD (S/P/Bld) [Vol rate/Area] 50 mL/min/{1.73_m2} Low >60 [facility] Comment on above: Result Comment: mL/m in/1.73m2 CKD-EPI Creatinine Equation (2020) Performed By: #### L 500.2500 ####[facility] [address] [place], [address] Glucose [Mass/Vol] 108 mg/dL High 70-99 [facility] Comment on above: Performed By: #### L 500.2500 ####[facility] [address] [place], [address] Potassium [Moles/Vol] 4.5 mmol/L Normal 3.3-5.1 [facility] Comment on above: Performed By: #### L 500.2500 ####[facility] [address] [place], [address] Sodium [Moles/Vol] 160 mmol/L High 133-145 [facility] Comment on above: Performed By: #### L 500.2500 ####[facility] [address] [place], [address] Urea nitrogen [Mass/Vol] 30 mg/dL High 4-19 [facility] Comment on above: Performed By: #### L 500.2500 ####[facility] [address] [place], [address] CBC W/Diff, Automatedon 05-04 Anisocytosis Ql (Bld) 1+ Normal [facility] Comment on above: Performed By: #### L 500.2500, L100.0100 ####[facility] [address] [place], [address] PLT EST SLT DEC Normal ADEQ [facility] Comment on above: Performed By: #### L 500.2500, L100.0100 ####[facility] [address] [place], [address] Modified Barium Swallow Stud yon 05-30-2024 Modified Barium Swallow Study Normal [facility] No Panel InformationOrdered By: Mark Gonzalez on 05-30-2024 1+ [facility] Osmolality (U) [Osmolality]O rdered By: Soraida Elam on 05-30-2024 Osmolality ur 216 mOsm/KG >50 [facility] Osmolality urOrdered By: Prakash Elam on 05-30-2024 Osmolality (U) [Osmolality] 216 mOsm/KG >50 [facility] Osmolality, Urineon 05-31-19 25 OSMOLALITY,UR 216 mOsm/KG Normal [facility] Comment on above: Result Comment: Norm al Urine Reference Ranges Random: 50 - 1200 mOsm/kg H20 depending on fluid intake Random: >850 mOsm/kg after 12 hour fluid restriction 24 hour: 300 - 900 mOsm/kg H2O Performed By: #### L 501.7400 ####[facility] [address] [place], [address] Platelet estimateOrdered By: Mark Gonzalez on 05-30-2024 Platelets LM Ql (Bld) SLT FEB [facility] Platelets LM Ql (Bld)Ordered By: Mark Gonzalez on 05-30-2024 Platelet estimate SLT FEB [facility] Vancomycin, Trough Levelon 0 05-30-2024 VANCO, TROUGH 12.2 ug/mL Normal 5.0-15.0 [facility] Comment on above: Result Comment: Vinayak mmended goal trough ranges are generally 10-15 mcg/mlfor less severe/complicated infections such as cellulitisor UTI and 15-20 mcg/ml for more severe/complicatedinfections such as bacteremia/sepsis, osteomyelitis,pneumonia or meningitis. Goal trough ranges should takeinto account indication, patient-specific factors andorganism ANTELMO.VANCOMYCIN STANDARED DRUG THERAPY TROUGH LEVEL: 5.0 - 15.0 mg/LVANCOMYCIN HIGH INTENSITY THERAPY TROUGH LEVEL: 15.0 - 20.0 mg/LHigh Intensity therapy recommended for serious lifethreatening infections include:- Wzykfjfcfv-Aclixylhujbw-Owjnnpxty (Ventilator/Healtcare Associated)-SepsisPLEASE CONTACT PHARMACY SERVICES (#2893) FOR INTERPRETATIONOF RESULTS. Performed By: #### L 501.8820 ####[facility] [address] [place], [address] Basic Metabolic Profile (BMP )on 05-29-2024 BUN/CRE 19.4 RATIO Normal 10-20 [facility] Comment on above: Performed By: #### L 500.2500 ####[facility] [address] [place], [place], [address] Calcium [Mass/Vol] 8.9 mg/dL Normal 7.6-11.0 [facility] Comment on above: Performed By: #### L 500.2500 ####[facility] [address] [place], [address] Chloride [Moles/Vol] 126 mmol/L High 98-108 [facility] Comment on above: Performed By: #### L 500.2500 ####[facility] [address] [place], [address] CO2 [Moles/Vol] 20.2 mmol/L Low 21.0-32.0 [facility] Comment on above: Performed By: #### L 500.2500 ####[facility] [address] [place], [address] Creatinine [Mass/Vol] 1.56 mg/dL High 0.70-1.20 [facility] Comment on above: Performed By: #### L 500.2500 ####[facility] [address] [place], [address] ECRCL 57.78 ml/min Normal 50-250 [facility] Comment on above: Performed By: #### L 500.2500 ####[facility] [address] [place], [address] GAP 15 Normal 5-15 [facility] Comment on above: Performed By: #### L 500.2500 ####[facility] [address] [place], [address] GFR/1.73 sq M.predicted among non-blacks MDRD (S/P/Bld) [Vol rate/Area] 50 mL/min/{1.73_m2} Low >60 [facility] Comment on above: Result Comment: mL/m in/1.73m2 CKD-EPI Creatinine Equation (2020) Performed By: #### L 500.2500 ####[facility] [address] [place], [address] Glucose [Mass/Vol] 99 mg/dL Normal 70-99 [facility] Comment on above: Performed By: #### L 500.2500 ####[facility] [address] [place], [address] Potassium [Moles/Vol] 4.5 mmol/L Normal 3.3-5.1 [facility] Comment on above: Performed By: #### L 500.2500 ####[facility] [address] [place], [address] Sodium [Moles/Vol] 162 mmol/L Invalid Interpretation Code 133-145 [facility] Comment on above: Result Comment: Crit ical Result(s) Called at:2354 by:??JAIRO VARNER TO [facility]. Results read back by same. Performed By: #### L 500.2500 ####[facility] [address] [place], [address] Urea nitrogen [Mass/Vol] 30 mg/dL High 4-19 [facility] Comment on above: Performed By: #### L 500.2500 ####[facility] [address] [place], [address] Chloride [Moles/Vol] 132 mmol/L Invalid Interpretation Code 98-108 [facility] Comment on above: Result Comment: CRIT ICAL VALUE CALLED TO [id number]/27/25 1302 Soraida Miller.RESULTS READ BACK BY SAME. AMENDED REPORT 05/29/24 1302 CL previously reported as: 132 *H mmol/LCritical Result(s) Called at: by:??Results read back bysame. Performed By: #### L 500.2500 ####[facility] [address] [place], [address] GAP 22 High 5-15 [facility] Comment on above: Result Comment: AMENDED REPORT 05/29/24 1302 GAP previously reported as: 23 H Performed By: #### L 500.2500 ####[facility] [address] [place], [address] BUN/CRE 23.9 RATIO High 10-20 [facility] Comment on above: Performed By: #### L 500.2500 ####[facility] [address] [place], [address] Calcium [Mass/Vol] 9.5 mg/dL Normal 7.6-11.0 [facility] Comment on above: Performed By: #### L 500.2500 ####[facility] [address] [place], [address] Chloride [Moles/Vol] 133 mmol/L Invalid Interpretation Code 98-108 [facility] Comment on above: Result Comment: Crit ical Result(s) Called at:0515 by: JAIRO VARNER TO [facility].??Results read back by same. Performed By: #### L 500.2500 ####[facility] [address] [place], [address] CO2 [Moles/Vol] 26.7 mmol/L Normal 21.0-32.0 [facility] Comment on above: Performed By: #### L 500.2500 ####[facility] [address] [place], [address] Creatinine [Mass/Vol] 1.42 mg/dL High 0.70-1.20 [facility] Comment on above: Performed By: #### L 500.2500 ####[facility] [address] [place], [address] ECRCL 66.59 ml/min Normal 50-250 [facility] Comment on above: Performed By: #### L 500.2500 ####[facility] [address] [place], [address] GAP 10 Normal 5-15 [facility] Comment on above: Performed By: #### L 500.2500 ####[facility] [address] [place], [address] GFR/1.73 sq M.predicted among non-blacks MDRD (S/P/Bld) [Vol rate/Area] 56 mL/min/{1.73_m2} Low >60 [facility] Comment on above: Result Comment: mL/m in/1.73m2 CKD-EPI Creatinine Equation (2020) Performed By: #### L 500.2500 ####[facility] [address] [place], [address] Glucose [Mass/Vol] 115 mg/dL High 70-99 [facility] Comment on above: Performed By: #### L 500.2500 ####[facility] [address] [place], [address] Potassium [Moles/Vol] 4.5 mmol/L Normal 3.3-5.1 [facility] Comment on above: Performed By: #### L 500.2500 ####[facility] [address] [place], [address] Sodium [Moles/Vol] 170 mmol/L Invalid Interpretation Code 133-145 [facility] Comment on above: Result Comment: Crit ical Result(s) Called at:0515 by: JAIRO WINN.??Results read back by same. Performed By: #### L 500.2500 ####[facility] [address] [place], [address] Urea nitrogen [Mass/Vol] 34 mg/dL High 4-19 [facility] Comment on above: Performed By: #### L 500.2500 ####[facility] [address] [place], [address] Osmolality, Urineon 05-30-19 25 OSMOLALITY,UR 332 mOsm/KG Normal [facility] Comment on above: Result Comment: Norm al Urine Reference Ranges Random: 50 - 1200 mOsm/kg H20 depending on fluid intake Random: >850 mOsm/kg after 12 hour fluid restriction 24 hour: 300 - 900 mOsm/kg H2O Performed By: #### L 501.7400 ####[facility] [address] [place], [address] Basic Metabolic Profile (BMP )on 05-28-2024 BUN/CRE 25.2 RATIO High 10-20 [facility] Comment on above: Performed By: #### L 500.2500, L100.0100 ####[facility] [address] [place], [address] Calcium [Mass/Vol] 8.0 mg/dL Normal 7.6-11.0 [facility] Comment on above: Performed By: #### L 500.2500, L100.0100 ####[facility] [address] [place], [address] Chloride [Moles/Vol] 126 mmol/L High 98-108 [facility] Comment on above: Performed By: #### L 500.2500, L100.0100 ####[facility] [address] [place], [address] CO2 [Moles/Vol] 24.1 mmol/L Normal 21.0-32.0 [facility] Comment on above: Performed By: #### L 500.2500, L100.0100 ####[facility] [address] [place], [address] Creatinine [Mass/Vol] 1.62 mg/dL High 0.70-1.20 [facility] Comment on above: Performed By: #### L 500.2500, L100.0100 ####[facility] [address] [place], [address] ECRCL 58.37 ml/min Normal 50-250 [facility] Comment on above: Performed By: #### L 500.2500, L100.0100 ####[facility] [address] [place], [address] GAP 9 Normal 5-15 [facility] Comment on above: Performed By: #### L 500.2500, L100.0100 ####[facility] [address] [place], [address] GFR/1.73 sq M.predicted among non-blacks MDRD (S/P/Bld) [Vol rate/Area] 48 mL/min/{1.73_m2} Low >60 [facility] Comment on above: Result Comment: mL/m in/1.73m2 CKD-EPI Creatinine Equation (2020) Performed By: #### L 500.2500, L100.0100 ####[facility] [address] [place], [address] Glucose [Mass/Vol] 97 mg/dL Normal 70-99 [facility] Comment on above: Performed By: #### L 500.2500, L100.0100 ####[facility] [address] [place], [address] Potassium [Moles/Vol] 5.0 mmol/L Normal 3.3-5.1 [facility] Comment on above: Result Comment: Hemo lysis present, Results??could be affected.?? Performed By: #### L 500.2500, L100.0100 ####[facility] [address] [place], [address] Sodium [Moles/Vol] 160 mmol/L High 133-145 [facility] Comment on above: Performed By: #### L 500.2500, L100.0100 ####[facility] [address] [place], [address] Urea nitrogen [Mass/Vol] 41 mg/dL High 4-19 [facility] Comment on above: Performed By: #### L 500.2500, L100.0100 ####[facility] [address] [place], [address] Bedside Glucoseon 05-28-2024 FINGERSTICK GLU 103 mg/dL Normal 74-106 [facility] Comment on above: Result Comment: SHRUTI GEMENT OF PATIENT CARE PER NURSING PROTOCOL Performed By: #### L 501.080 ####[facility] [address] [place], [address] Blood schistocyte detection by light microscopyOrdered By: Mark Gonzalez on 05-28-2024 Schistocytes LM Ql (Bld) RARE [facility] CBC W/Diff, Automatedon - Anisocytosis Ql (Bld) 1+ Normal [facility] Comment on above: Performed By: #### L 500.2500, L100.0100 ####[facility] [address] [place], [address] PLT EST SLT DEC Normal ADEQ [facility] Comment on above: Performed By: #### L 500.2500, L100.0100 ####[facility] [address] [place], [address] SCHISTOCYTES RARE Normal [facility] Comment on above: Performed By: #### L 500.2500, L100.0100 ####[facility] [address] [place], [address] TEAR DROP 1+ Normal [facility] Comment on above: Performed By: #### L 500.2500, L100.0100 ####[facility] [address] [place], [address] Dacrocytes LM Ql (Bld)Ordere d By: Mark Gonzalez on 05-28-2024 Teardrop cell detection 1+ [facility] Glucose measurement at bedsi deOrdered By: Mark Gonzalez on 05-28-2024 Glucose [Mass/Vol] 103 mg/dL 74-106 [facility] Glucose measurement at bedside 103 mg/dL 74-106 [facility] Schistocytes LM Ql (Bld)Orde red By: Mark Gonzalez on 05-28-2024 Blood schistocyte detection by light microscopy [facility] Serum or plasma vancomycin m easurement (mass/volume)Ordered By: Robson George on 05-28-2024 Vancomycin [Mass/Vol] 17.8 ug/mL High 0.0-15.0 [facility] Teardrop cell detectionOrder ed By: Mark Gonzalez on 05-28-2024 Dacrocytes LM Ql (Bld) 1+ [facility] Vancomycin [Mass/Vol]Ordered By: Robson George on 05-28-2024 Serum or plasma vancomycin measurement (mass/volume) 17.8 ug/mL High 0.0-15.0 [facility] Vancomycin, Random Levelon 0 05-28-2024 VANCO, RANDOM 17.8 ug/mL High 0.0-15.0 [facility] Comment on above: Result Comment: VANC OMYCIN STANDARD DRUG THERAPY: CRITICAL VALUE IS > 15.0 mg/LVANCOMYCIN HIGH INTENSITY THERAPY: CRITICAL VALUE IS > 20.0 mg/LPLEASE CONTACT PHARMACY SERVICES (#4207) FOR INTERPRETATIONOF RESULTS. THIS RESULT DOES NOT REPRESENT A PEAK OR TROUGHLEVEL FOR THIS DRUG. Performed By: #### L 501.8850 ####[facility] [address] [place], [place], [address] ALP [Catalytic activity/Vol] Ordered By: David Ruvalcaba on 05-27-2024 Serum or plasma alkaline phosphatase measurement 106 U/L 40-129 [facility] ALT [Catalytic activity/Vol] Ordered By: David Ruvalcaba on 05-27-2024 Serum or plasma alanine aminotransferase (ALT) measurement 29 U/L <47 [facility] Albumin [Mass/Vol]Ordered By : David Ruvalcaba on 05-27-2024 Serum or plasma albumin measurement (mass/volume) 3.1 g/dL Low 3.4-4.8 [facility] Albumin/Globulin [Mass ratio ]Ordered By: David Ruvalcaba on 05-27-2024 Serum or plasma albumin/globulin mass ratio 0.9 RATIO 0.9-2.4 [facility] Arterial patency Wrist arter y --pre arterial punctureOrdered By: Mark Gonzalez on 05-27-2024 Assessment of wrist artery patency prior to arterial puncture Positive [facility] Assessment of wrist artery p atency prior to arterial punctureOrdered By: Mark Gonzalez on 05-27-2024 Arterial patency Wrist artery --pre arterial puncture Positive [facility] Base excess Calc (BldV) [Mol es/Vol]Ordered By: Mark Gonzalez on 05-27-2024 Blood base excess determination 5 mmol/L High -2-2 [facility] Bilirubin, totalOrdered By: David Ruvalcaba on 05-27-2024 Bilirubin [Mass/Vol] 0.52 mg/dL 0.00-1.30 [facility] Bilirubin, total 0.52 mg/dL 0.00-1.30 [facility] Blood Gases by CPSon 025 LEAH TEST Positive Normal [facility] Comment on above: Performed By: #### L 9000.0800 ####[facility] [address] [place], [address] Base excess Calc (Bld) [Moles/Vol] 5 mmol/L High -2 to +2 [facility] Comment on above: Performed By: #### L 9000.0800 ####[facility] [address] [place], [address] Blood Gas Type ART Normal [facility] Comment on above: Performed By: #### L 9000.0800 ####[facility] [address] [place], [address] CO2 [Moles/Vol] 31 mmol/L Normal [facility] Comment on above: Performed By: #### L 9000.0800 ####[facility] [address] [place], [address] FI02 30.0 Normal [facility] Comment on above: Performed By: #### L 9000.0800 ####[facility] [address] [place], [address] HCO3 (Bld) [Moles/Vol] 29.5 mmol/L High 22-26 [facility] Comment on above: Performed By: #### L 9000.0800 ####[facility] [address] [place], [address] Mode AC Normal [facility] Comment on above: Performed By: #### L 9000.0800 ####[facility] [address] [place], [address] O2 Delivery Dev ET Tube Normal [facility] Comment on above: Performed By: #### L 9000.0800 ####[facility] [address] [place], [address] pCO2 48.5 mmHg High 35-45 [facility] Comment on above: Performed By: #### L 0.0800 ####[facility] [address] [place], [address] PEEP 5 Normal [facility] Comment on above: Performed By: #### L 0.0800 ####[facility] [address] [place], [address] pH (Bld) 7.39 [pH] Normal 7.35-7.45 [facility] Comment on above: Performed By: #### L 0.0800 ####[facility] [address] [place], [address] PO2 64 mmHG Low 75-100 [facility] Comment on above: Performed By: #### L 0.0800 ####[facility] [address] [place], [address] RR 20 Normal [facility] Comment on above: Performed By: #### L 8999.0800 ####[facility] [address] [place], [address] SITE R Radial Normal [facility] Comment on above: Performed By: #### L 0.0800 ####[facility] [address] [place], [address] SO2 91 Low 95-99 [facility] Comment on above: Performed By: #### L 0.0800 ####[facility] [address] [place], [address] Vt 450.0 mL Normal [facility] Comment on above: Performed By: #### L 9000.0800 ####[facility] [address] [place], [address] Blood base excess determinat ionOrdered By: Mark Gonzalez on 05-27-2024 Base excess Calc (BldV) [Moles/Vol] 5 mmol/L High -- [facility] Blood bicarbonate measuremen tOrdered By: Mark Gonzalez on 05-27-2024 HCO3 (Bld) [Moles/Vol] 29.5 mmol/L High - W [facility] Blood bicarbonate measurement 29.5 mmol/L [facility] Brain without Contraston Brain without Contrast Normal [facility] CBC W/Diff, Automatedon 05-04 Absolute Lymph 0.96 X10 3/uL Normal 0.83-4.51 [facility] Comment on above: Performed By: #### L 100.0100, L500.4050 ####[facility] [address] [place], [address] Absolute Neut 6.6 X10 3/uL Normal 2.0-7.7 [facility] Comment on above: Performed By: #### L 100.0100, L500.4050 ####[facility] [address] [place], [address] Basophils/100 WBC (Bld) 0.1 % Normal 0-1 [facility] Comment on above: Performed By: #### L 100.0100, L500.4050 ####[facility] [address] [place], [address] Eosinophils/100 WBC (Bld) 0.4 % Normal 0-5 [facility] Comment on above: Performed By: #### L 100.0100, L500.4050 ####[facility] [address] [place], [address] Erythrocyte distribution width (RBC) [Ratio] 18.2 % High 11.6-14.6 [facility] Comment on above: Performed By: #### L 100.0100, L500.4050 ####[facility] [address] [place], [address] Hematocrit (Bld) [Volume fraction] 43.4 % Normal 40-54 [facility] Comment on above: Performed By: #### L 100.0100, L500.4050 ####[facility] [address] [place], [address] Hemoglobin (Bld) [Mass/Vol] 13.1 g/dL Normal 13.0-16.5 [facility] Comment on above: Performed By: #### L 100.0100, L500.4050 ####[facility] [address] [place], [address] IG% 0.500 Normal 0.0-0.9 [facility] Comment on above: Result Comment: IG% - Immature Granulocytes (promyelocytes, myelocytes andmetamyelocytes) > 1% indicates that a LEFT SHIFT is Present. Performed By: #### L 100.0100, L500.4050 ####[facility] [address] [place], [address] Lymphocytes/100 WBC (Bld) 11.8 % Low 19-41 [facility] Comment on above: Performed By: #### L 100.0100, L500.4050 ####[facility] [address] [place], [address] MCH (RBC) [Entitic mass] 33.0 pg High 27.0-32.0 [facility] Comment on above: Performed By: #### L 100.0100, L500.4050 ####[facility] [address] [place], [address] MCHC (RBC) [Mass/Vol] 30.2 g/dL Low 32-36 [facility] Comment on above: Performed By: #### L 100.0100, L500.4050 ####[facility] [address] [place], [address] MCV (RBC) [Entitic vol] 109.3 fL High 80-94 [facility] Comment on above: Performed By: #### L 100.0100, L500.4050 ####[facility] [address] [place], [address] Monocytes/100 WBC (Bld) 6.4 % Normal 0-10 [facility] Comment on above: Performed By: #### L 100.0100, L500.4050 ####[facility] [address] [place], [address] Neutrophils/100 WBC (Bld) 80.8 % High 47-70 [facility] Comment on above: Performed By: #### L 100.0100, L500.4050 ####[facility] [address] [place], [address] Nucleated RBC (Bld) [#/Vol] 0.2 10*3/uL Normal 0-5 [facility] Comment on above: Performed By: #### L 100.0100, L500.4050 ####[facility] [address] [place], [address] Platelet mean volume (Bld) [Entitic vol] 10.1 fL Normal 6.2-12.0 [facility] Comment on above: Performed By: #### L 100.0100, L500.4050 ####[facility] [address] [place], [address] Platelets (Bld) [#/Vol] 128 10*3/uL Low 150-450 [facility] Comment on above: Performed By: #### L 100.0100, L500.4050 ####[facility] [address] [place], [address] RBC (Bld) [#/Vol] 3.97 10*6/uL Low 4.6-6.2 [facility] Comment on above: Performed By: #### L 100.0100, L500.4050 ####[facility] [address] [place], [address] RDW SD 74.0 fl High 35.1-43.9 [facility] Comment on above: Performed By: #### L 100.0100, L500.4050 ####[facility] [address] [place], [address] WBC (Bld) [#/Vol] 8.2 10*3/uL Normal 4.4-11.0 [facility] Comment on above: Performed By: #### L 100.0100, L500.4050 ####[facility] [address] [place], [address] Comprehensive Metabolic Prof ilon 05-27-2024 Albumin [Mass/Vol] 3.1 g/dL Low 3.4-4.8 [facility] Comment on above: Performed By: #### L 100.0100, L500.4050 ####[facility] [address] [place], [address] Albumin/Globulin [Mass ratio] 0.9 {ratio} Normal 0.9-2.4 [facility] Comment on above: Performed By: #### L 100.0100, L500.4050 ####[facility] [address] [place], [address] ALK PHOS 106 U/L Normal 40-129 [facility] Comment on above: Performed By: #### L 100.0100, L500.4050 ####[facility] [address] [place], [address] ALT [Catalytic activity/Vol] 29 U/L Normal <=46 [facility] Comment on above: Performed By: #### L 100.0100, L500.4050 ####[facility] [address] [place], [address] AST [Catalytic activity/Vol] 36 U/L Normal <=37 [facility] Comment on above: Performed By: #### L 100.0100, L500.4050 ####[facility] [address] [place], [address] Bilirubin [Mass/Vol] 0.52 mg/dL Normal 0.00-1.30 [facility] Comment on above: Performed By: #### L 100.0100, L500.4050 ####[facility] [address] [place], [address] BUN/CRE 24.5 RATIO High 10-20 [facility] Comment on above: Performed By: #### L 100.0100, L500.4050 ####[facility] [address] [place], [address] Calcium [Mass/Vol] 8.5 mg/dL Normal 7.6-11.0 [facility] Comment on above: Performed By: #### L 100.0100, L500.4050 ####[facility] [address] [place], [address] Chloride [Moles/Vol] 118 mmol/L High 98-108 [facility] Comment on above: Performed By: #### L 100.0100, L500.4050 ####[facility] [address] [place], [address] CO2 [Moles/Vol] 26.0 mmol/L Normal 21.0-32.0 [facility] Comment on above: Performed By: #### L 100.0100, L500.4050 ####[facility] [address] [place], [address] Creatinine [Mass/Vol] 1.53 mg/dL High 0.70-1.20 [facility] Comment on above: Performed By: #### L 100.0100, L500.4050 ####[facility] [address] [place], [address] ECRCL 60.78 ml/min Normal 50-250 [facility] Comment on above: Performed By: #### L 100.0100, L500.4050 ####[facility] [address] [place], [address] GAP 7 Normal 5-15 [facility] Comment on above: Performed By: #### L 100.0100, L500.4050 ####[facility] [address] [place], [address] GFR/1.73 sq M.predicted among non-blacks MDRD (S/P/Bld) [Vol rate/Area] 51 mL/min/{1.73_m2} Low >60 [facility] Comment on above: Result Comment: mL/m in/1.73m2 CKD-EPI Creatinine Equation (2020) Performed By: #### L 100.0100, L500.4050 ####[facility] [address] [place], [address] Globulin (S) [Mass/Vol] 3.6 g/dL Normal 2.2-4.2 [facility] Comment on above: Performed By: #### L 100.0100, L500.4050 ####[facility] [address] [place], [address] Glucose [Mass/Vol] 105 mg/dL High 70-99 [facility] Comment on above: Performed By: #### L 100.0100, L500.4050 ####[facility] [address] [place], [address] Potassium [Moles/Vol] 4.5 mmol/L Normal 3.3-5.1 [facility] Comment on above: Performed By: #### L 100.0100, L500.4050 ####[facility] [address] [place], [address] Sodium [Moles/Vol] 151 mmol/L High 133-145 [facility] Comment on above: Performed By: #### L 100.0100, L500.4050 ####[facility] [address] [place], [address] T PROT 6.7 g/dL Normal 5.9-8.4 [facility] Comment on above: Performed By: #### L 100.0100, L500.4050 ####[facility] [address] [place], [address] Urea nitrogen [Mass/Vol] 38 mg/dL High 4-19 [facility] Comment on above: Performed By: #### L 100.0100, L500.4050 ####[facility] [address] [place], [address] Determination of fraction of inspired oxygenOrdered By: Mark Gonzalez on 05-27-2024 Determination of fraction of inspired oxygen 30.0 [facility] Magnetic resonance imaging r eportOrdered By: Estelle Norris on 05-27-2024 Study report [facility] Measurement, pHOrdered By: Amina Gonzalez on 05-27-2024 pH (Unsp spec) 7.39 [pH] 7.35-7.45 [facility] No Panel InformationOrdered By: David Ruvalcaba on 05-27-2024 36 U/L <38 [facility] No Panel InformationOrdered By: Mark Gonzalez on 05-27-2024 ART [facility] R Radial [facility] AC [facility] ET Tube [facility] 450.0 mL [facility] 20 [facility] 5 [facility] Osmolality, Urineon 03-25-20 25 OSMOLALITY,UR 306 mOsm/KG Normal [facility] Comment on above: Result Comment: Norm al Urine Reference Ranges Random: 50 - 1200 mOsm/kg H20 depending on fluid intake Random: >850 mOsm/kg after 12 hour fluid restriction 24 hour: 300 - 900 mOsm/kg H2O Performed By: #### L 501.7400, L501.5500 ####[facility] [address] [place], [place], [address] OSMOLALITY,UR 173 mOsm/KG Normal [facility] Comment on above: Result Comment: Norm al Urine Reference Ranges Random: 50 - 1200 mOsm/kg H20 depending on fluid intake Random: >850 mOsm/kg after 12 hour fluid restriction 24 hour: 300 - 900 mOsm/kg H2O Performed By: #### L 501.7400 ####[facility] [address] [place], [place], [address] Oxygen saturation measuremen tOrdered By: Mark Gonzalez on 05-27-2024 Oxygen saturation measurement 91 % Low 95-99 [facility] Partial pressure of carbon d ioxide measurementOrdered By: Mark Gonzalez on 05-27-2024 Partial pressure of carbon dioxide measurement 48.5 mmHg High 35-45 [facility] Partial pressure of oxygen m easurementOrdered By: Mark Gonzalez on 05-27-2024 Partial pressure of oxygen measurement 64 mmHG Low 75-100 [facility] Potassium (U) [Moles/Vol]Ord ered By: Trevor Strong on 05-27-2024 Urine potassium measurement (moles/volume) 18.1 mmol/L Not Establ. [facility] Serum globulin measurementOr dered By: David Ruvalcaba on 05-27-2024 Globulin (S) [Mass/Vol] 3.6 g/dL 2.2-4.2 [facility] Serum globulin measurement 3.6 g/dL 2.2-4.2 [facility] Serum or plasma alanine cabello otransferase (ALT) measurementOrdered By: David Ruvalcaba on 05-27-2024 ALT [Catalytic activity/Vol] 29 U/L <47 [facility] Serum or plasma albumin vito urement (mass/volume)Ordered By: David Ruvalcaba on 05-27-2024 Albumin [Mass/Vol] 3.1 g/dL Low 3.4-4.8 [facility] Serum or plasma albumin/glob ulin mass ratioOrdered By: David Ruvalcaba on 05-27-2024 Albumin/Globulin [Mass ratio] 0.9 {ratio} 0.9-2.4 [facility] Serum or plasma alkaline jessica sphatase measurementOrdered By: David Ruvalcaba on 05-27-2024 ALP [Catalytic activity/Vol] 106 U/L 40-129 [facility] Sodium (U) [Moles/Vol]Ordere d By: Trevor Tanphaichiaquilino on 05-27-2024 Urine sodium measurement (moles/volume) 52 mmol/L Not Establ. [facility] Total carbon dioxide measure mentOrdered By: Mark Gonzalez on 05-27-2024 CO2 [Moles/Vol] 31 mmol/L [facility] Total carbon dioxide measurement 31 mmol/L [facility] Total proteinOrdered By: Sarah Ruvalcaba on 05-27-2024 Protein [Mass/Vol] 6.7 g/dL 5.9-8.4 [facility] Total protein 6.7 g/dL 5.9-8.4 [facility] Urine Potassiumon 05-27-2024 UR K 18.1 mmol/L Normal Not Establ. [facility] Comment on above: Performed By: #### L 501.5800 ####[facility] [address] [place], [place], [id number] Urine Sodiumon 05-27-2024 Sodium (U) [Moles/Vol] 52 mmol/L Normal Not Establ. [facility] Comment on above: Performed By: #### L 501.7400, L501.5500 ####[facility] [address] [place], [place], [id number] Urine potassium measurement (moles/volume)Ordered By: Natananth Tanphaichiaquilino on 05-27-2024 Potassium (U) [Moles/Vol] 18.1 mmol/L Not Establ. [facility] Urine sodium measurement (mo les/volume)Ordered By: Trevor Strong on 05-27-2024 Sodium (U) [Moles/Vol] 52 mmol/L Not Establ. [facility] Vancomycin, Trough Levelon 0 05-27-2024 VANCO, TROUGH 26.3 ug/mL High 5.0-15.0 [facility] Comment on above: Order Comment: Comme nts: Trough to be drawn 30 mins prior to scheduled [id number] Result Comment: Vinayak mmended goal trough ranges are generally 10-15 mcg/mlfor less severe/complicated infections such as cellulitisor UTI and 15-20 mcg/ml for more severe/complicatedinfections such as bacteremia/sepsis, osteomyelitis,pneumonia or meningitis. Goal trough ranges should takeinto account indication, patient-specific factors andorganism ANTELMO.VANCOMYCIN STANDARED DRUG THERAPY TROUGH LEVEL: 5.0 - 15.0 mg/LVANCOMYCIN HIGH INTENSITY THERAPY TROUGH LEVEL: 15.0 - 20.0 mg/LHigh Intensity therapy recommended for serious lifethreatening infections include:- Kmsgkcymce-Hgktijzexsnk-Ixzpudhpu (Ventilator/Healtcare Associated)-SepsisPLEASE CONTACT PHARMACY SERVICES (#1673) FOR INTERPRETATIONOF RESULTS. Performed By: #### L 501.8866 ####[facility] [address] [place], [place], [id number] pH (Unsp spec)Ordered By: Doni Gonzalez on 05-27-2024 Measurement, pH 7.39 7.35-7.45 [facility] LEAH TEST N/A Normal [facility] Comment on above: Performed By: #### L 9000.0800 ####[facility] [address] [place], [address] Base excess Calc (Bld) [Moles/Vol] 1 mmol/L Normal -2 to +2 [facility] Comment on above: Performed By: #### L 9000.0800 ####[facility] [address] [place], [address] Blood Gas Type ART Normal [facility] Comment on above: Performed By: #### L 9000.0800 ####[facility] [address] [place], [address] CO2 [Moles/Vol] 28 mmol/L Normal [facility] Comment on above: Performed By: #### L 9000.0800 ####[facility] [address] [place], [address] FI02 35.0 Normal [facility] Comment on above: Performed By: #### L 9000.0800 ####[facility] [address] [place], [address] HCO3 (Bld) [Moles/Vol] 26.7 mmol/L High 22-26 [facility] Comment on above: Performed By: #### L 9000.0800 ####[facility] [address] [place], [address] Mode AC Normal [facility] Comment on above: Performed By: #### L 9000.0800 ####[facility] [address] [place], [address] O2 Delivery Dev Adult Vent Normal [facility] Comment on above: Performed By: #### L 9000.0800 ####[facility] [address] [place], [address] pCO2 48.6 mmHg High 35-45 [facility] Comment on above: Performed By: #### L 9000.0800 ####[facility] [address] [place], [address] PEEP 5 Normal [facility] Comment on above: Performed By: #### L 9000.0800 ####[facility] [address] [place], [address] pH (Bld) 7.35 [pH] Normal 7.35-7.45 [facility] Comment on above: Performed By: #### L 9000.0800 ####[facility] [address] [place], [address] PO2 67 mmHG Low 75-100 [facility] Comment on above: Performed By: #### L 9000.0800 ####[facility] [address] [place], [address] RR 20 Normal [facility] Comment on above: Performed By: #### L 9000.0800 ####[facility] [address] [place], [address] SITE L Radial Normal [facility] Comment on above: Performed By: #### L 9000.0800 ####[facility] [address] [place], [address] SO2 92 Low 95-99 [facility] Comment on above: Performed By: #### L 9000.0800 ####[facility] [address] [place], [address] Vt 450.0 mL Normal [facility] Comment on above: Performed By: #### L 9000.0800 ####[facility] [address] [place], [address] Blood manual differential co mment interpretation (narrative result)Ordered By: David Ruvalcaba on 05-26-2024 Manual differential comment Torey (Bld) [Interp] SCANNED [facility] CBC W/Diff, Automatedon 05-04 Anisocytosis Ql (Bld) 2+ Normal [facility] Comment on above: Performed By: #### L 100.0100, L500.4050 ####[facility] [address] [place], [address] MACROCYTOSIS 2+ Normal [facility] Comment on above: Performed By: #### L 100.0100, L500.4050 ####[facility] [address] [place], [address] SMEAR COMMENT SCANNED Normal [facility] Comment on above: Performed By: #### L 100.0100, L500.4050 ####[facility] [address] [place], [address] Comprehensive Metabolic Prof ilon 05-26-2024 Albumin [Mass/Vol] 3.0 g/dL Low 3.4-4.8 [facility] Comment on above: Performed By: #### L 100.0100, L500.4050 ####[facility] [address] [place], [address] Albumin/Globulin [Mass ratio] 0.8 {ratio} Low 0.9-2.4 [facility] Comment on above: Performed By: #### L 100.0100, L500.4050 ####[facility] [address] [place], [address] ALK PHOS 103 U/L Normal 40-129 [facility] Comment on above: Performed By: #### L 100.0100, L500.4050 ####[facility] [address] [place], [address] ALT [Catalytic activity/Vol] 21 U/L Normal <=46 [facility] Comment on above: Performed By: #### L 100.0100, L500.4050 ####[facility] [address] [place], [address] AST [Catalytic activity/Vol] 32 U/L Normal <=37 [facility] Comment on above: Performed By: #### L 100.0100, L500.4050 ####[facility] [address] [place], [address] Bilirubin [Mass/Vol] 0.47 mg/dL Normal 0.00-1.30 [facility] Comment on above: Performed By: #### L 100.0100, L500.4050 ####[facility] [address] [place], [address] BUN/CRE 21.8 RATIO High 10-20 [facility] Comment on above: Performed By: #### L 100.0100, L500.4050 ####[facility] [address] [place], [address] Calcium [Mass/Vol] 8.4 mg/dL Normal 7.6-11.0 [facility] Comment on above: Performed By: #### L 100.0100, L500.4050 ####[facility] [address] [place], [address] Chloride [Moles/Vol] 118 mmol/L High 98-108 [facility] Comment on above: Performed By: #### L 100.0100, L500.4050 ####[facility] [address] [place], [address] CO2 [Moles/Vol] 24.6 mmol/L Normal 21.0-32.0 [facility] Comment on above: Performed By: #### L 100.0100, L500.4050 ####[facility] [address] [place], [address] Creatinine [Mass/Vol] 1.53 mg/dL High 0.70-1.20 [facility] Comment on above: Performed By: #### L 100.0100, L500.4050 ####[facility] [address] [place], [address] ECRCL 60.78 ml/min Normal 50-250 [facility] Comment on above: Performed By: #### L 100.0100, L500.4050 ####[facility] [address] [place], [address] GAP 7 Normal 5-15 [facility] Comment on above: Performed By: #### L 100.0100, L500.4050 ####[facility] [address] [place], [address] GFR/1.73 sq M.predicted among non-blacks MDRD (S/P/Bld) [Vol rate/Area] 51 mL/min/{1.73_m2} Low >60 [facility] Comment on above: Result Comment: mL/m in/1.73m2 CKD-EPI Creatinine Equation (2020) Performed By: #### L 100.0100, L500.4050 ####[facility] [address] [place], [address] Globulin (S) [Mass/Vol] 3.6 g/dL Normal 2.2-4.2 [facility] Comment on above: Performed By: #### L 100.0100, L500.4050 ####[facility] [address] [place], [address] Glucose [Mass/Vol] 165 mg/dL High 70-99 [facility] Comment on above: Performed By: #### L 100.0100, L500.4050 ####[facility] [address] [place], [address] Potassium [Moles/Vol] 4.4 mmol/L Normal 3.3-5.1 [facility] Comment on above: Performed By: #### L 100.0100, L500.4050 ####[facility] [address] [place], [address] Sodium [Moles/Vol] 150 mmol/L High 133-145 [facility] Comment on above: Performed By: #### L 100.0100, L500.4050 ####[facility] [address] [place], [address] T PROT 6.6 g/dL Normal 5.9-8.4 [facility] Comment on above: Performed By: #### L 100.0100, L500.4050 ####[facility] [address] [place], [place], [id number] Urea nitrogen [Mass/Vol] 33 mg/dL High 4-19 [facility] Comment on above: Performed By: #### L 100.0100, L500.4050 ####[facility] [address] [place], [address] Consultation - Infectious Dx on 05-26-2024 Consultation - Infectious Dx Normal [facility] Consultation - Nephrologyon 05-26-2024 Consultation - Nephrology Normal [facility] Electrocardiogram reportOrde red By: Brain Salcedo on 05-26-2024 EKG study [facility] Work Phone: Macrocytes Ql (Bld)Ordered B y: David Ruvalcaba on 05-26-2024 Macrocytes detection 2+ [facility] Macrocytes detectionOrdered By: David Ruvalcaba on 05-26-2024 Macrocytes Ql (Bld) 2+ [facility] Manual differential comment Torey (Bld) [Interp]Ordered By: David Ruvalcaba on 05-26-2024 Blood manual differential comment interpretation (narrative result) SCANNED [facility] Vancomycin, Random Levelon 0 05-26-2024 VANCO, RANDOM 13.8 ug/mL Normal 0.0-15.0 [facility] Comment on above: Result Comment: VANC OMYCIN STANDARD DRUG THERAPY: CRITICAL VALUE IS > 15.0 mg/LVANCOMYCIN HIGH INTENSITY THERAPY: CRITICAL VALUE IS > 20.0 mg/LPLEASE CONTACT PHARMACY SERVICES (#4855) FOR INTERPRETATIONOF RESULTS. THIS RESULT DOES NOT REPRESENT A PEAK OR TROUGHLEVEL FOR THIS DRUG. Performed By: #### L 501.8850 ####[facility] [address] [place], [place], [id number] Basic Metabolic Profile (BMP )on 05-25-2024 BUN/CRE 20.1 RATIO High 10-20 [facility] Comment on above: Performed By: #### L 500.2500 ####[facility] [address] [place], [address] Calcium [Mass/Vol] 8.5 mg/dL Normal 7.6-11.0 [facility] Comment on above: Performed By: #### L 500.2500 ####[facility] [address] [place], [address] Chloride [Moles/Vol] 119 mmol/L High 98-108 [facility] Comment on above: Performed By: #### L 500.2500 ####[facility] [address] [place], [address] CO2 [Moles/Vol] 26.0 mmol/L Normal 21.0-32.0 [facility] Comment on above: Performed By: #### L 500.2500 ####[facility] [address] [place], [address] Creatinine [Mass/Vol] 1.48 mg/dL High 0.70-1.20 [facility] Comment on above: Performed By: #### L 500.2500 ####[facility] [address] [place], [address] ECRCL 62.34 ml/min Normal 50-250 [facility] Comment on above: Performed By: #### L 500.2500 ####[facility] [address] [place], [address] GAP 6 Normal 5-15 [facility] Comment on above: Performed By: #### L 500.2500 ####[facility] [address] [place], [address] GFR/1.73 sq M.predicted among non-blacks MDRD (S/P/Bld) [Vol rate/Area] 53 mL/min/{1.73_m2} Low >60 [facility] Comment on above: Result Comment: mL/m in/1.73m2 CKD-EPI Creatinine Equation (2020) Performed By: #### L 500.2500 ####[facility] [address] [place], [address] Glucose [Mass/Vol] 139 mg/dL High 70-99 [facility] Comment on above: Performed By: #### L 500.2500 ####[facility] [address] [place], [address] Potassium [Moles/Vol] 4.2 mmol/L Normal 3.3-5.1 [facility] Comment on above: Performed By: #### L 500.2500 ####[facility] [address] [place], [address] Sodium [Moles/Vol] 152 mmol/L High 133-145 [facility] Comment on above: Performed By: #### L 500.2500 ####[facility] [address] [place], [address] Urea nitrogen [Mass/Vol] 30 mg/dL High 4-19 [facility] Comment on above: Performed By: #### L 500.2500 ####[facility] [address] [place], [address] Bilirubin Test strip Ql (U)O rdered By: David Ruvalcaba on 05-25-2024 Bilirubin Ql (U) Negative Negative [facility] Base excess Calc (Bld) [Moles/Vol] 2 mmol/L Normal -2 to +2 [facility] Comment on above: Performed By: #### L 9000.0800 ####[facility] [address] [place], [address] Blood Gas Type ART Normal [facility] Comment on above: Performed By: #### L 9000.0800 ####[facility] [address] [place], [address] CO2 [Moles/Vol] 29 mmol/L Normal [facility] Comment on above: Performed By: #### L 9000.0800 ####[facility] [address] [place], [address] FI02 35.0 Normal [facility] Comment on above: Performed By: #### L 0.0800 ####[facility] [address] [place], [address] HCO3 (Bld) [Moles/Vol] 27.5 mmol/L High 22-26 [facility] Comment on above: Performed By: #### L 9000.0800 ####[facility] [address] [place], [address] Mode AC Normal [facility] Comment on above: Performed By: #### L 0.0800 ####[facility] [address] [place], [address] O2 Delivery Dev Adult Vent Normal [facility] Comment on above: Performed By: #### L 0.0800 ####[facility] [address] [place], [address] pCO2 46.6 mmHg High 35-45 [facility] Comment on above: Performed By: #### L 9000.0800 ####[facility] [address] [place], [address] PEEP 5 Normal [facility] Comment on above: Performed By: #### L 9000.0800 ####[facility] [address] [place], [address] pH (Bld) 7.38 [pH] Normal 7.35-7.45 [facility] Comment on above: Performed By: #### L 9000.0800 ####[facility] [address] [place], [address] PO2 62 mmHG Low 75-100 [facility] Comment on above: Performed By: #### L 9000.0800 ####[facility] [address] [place], [address] RR 20 Normal [facility] Comment on above: Performed By: #### L 9000.0800 ####[facility] [address] [place], [address] SITE L Brach Normal [facility] Comment on above: Performed By: #### L 9000.0800 ####[facility] [address] [place], [address] SO2 91 Low 95-99 [facility] Comment on above: Performed By: #### L 9000.0800 ####[facility] [address] [place], [address] Vt 450.0 mL Normal [facility] Comment on above: Performed By: #### L 9000.0800 ####[facility] [address] [place], [address] CBC W/Diff, Automatedon 05-04 Anisocytosis Ql (Bld) RARE Normal [facility] Comment on above: Performed By: #### L 100.0100, L500.4050 ####[facility] [address] [place], [address] Clarity (U)Ordered By: Tristian Ruvalcaba on 05-25-2024 Urine clarity Clear Clear [facility] Color (U)Ordered By: David Ruvalcaba on 05-25-2024 Urine color determination Yellow Yellow [facility] Comprehensive Metabolic Prof ilon 05-25-2024 Albumin [Mass/Vol] 3.4 g/dL Normal 3.4-4.8 [facility] Comment on above: Performed By: #### L 100.0100, L500.4050 ####[facility] [address] [place], [address] Albumin/Globulin [Mass ratio] 0.8 {ratio} Low 0.9-2.4 [facility] Comment on above: Performed By: #### L 100.0100, L500.4050 ####[facility] [address] [place], [address] ALK PHOS 97 U/L Normal 40-129 [facility] Comment on above: Performed By: #### L 100.0100, L500.4050 ####[facility] [address] [place], [address] ALT [Catalytic activity/Vol] 15 U/L Normal <=46 [facility] Comment on above: Performed By: #### L 100.0100, L500.4050 ####[facility] [address] [place], [address] AST [Catalytic activity/Vol] 22 U/L Normal <=37 [facility] Comment on above: Performed By: #### L 100.0100, L500.4050 ####[facility] [address] [place], [address] Bilirubin [Mass/Vol] 0.58 mg/dL Normal 0.00-1.30 [facility] Comment on above: Performed By: #### L 100.0100, L500.4050 ####[facility] [address] [place], [address] BUN/CRE 15.1 RATIO Normal 10-20 [facility] Comment on above: Performed By: #### L 100.0100, L500.4050 ####[facility] [address] [place], [address] Calcium [Mass/Vol] 8.8 mg/dL Normal 7.6-11.0 [facility] Comment on above: Performed By: #### L 100.0100, L500.4050 ####[facility] [address] [place], [address] Chloride [Moles/Vol] 118 mmol/L High 98-108 [facility] Comment on above: Performed By: #### L 100.0100, L500.4050 ####[facility] [address] [place], [address] CO2 [Moles/Vol] 25.1 mmol/L Normal 21.0-32.0 [facility] Comment on above: Performed By: #### L 100.0100, L500.4050 ####[facility] [address] [place], [address] Creatinine [Mass/Vol] 1.54 mg/dL High 0.70-1.20 [facility] Comment on above: Performed By: #### L 100.0100, L500.4050 ####[facility] [address] [place], [address] ECRCL 59.91 ml/min Normal 50-250 [facility] Comment on above: Performed By: #### L 100.0100, L500.4050 ####[facility] [address] [place], [address] GAP 7 Normal 5-15 [facility] Comment on above: Performed By: #### L 100.0100, L500.4050 ####[facility] [address] [place], [address] GFR/1.73 sq M.predicted among non-blacks MDRD (S/P/Bld) [Vol rate/Area] 51 mL/min/{1.73_m2} Low >60 [facility] Comment on above: Result Comment: mL/m in/1.73m2 CKD-EPI Creatinine Equation (2020) Performed By: #### L 100.0100, L500.4050 ####[facility] [address] [place], [address] Globulin (S) [Mass/Vol] 4.1 g/dL Normal 2.2-4.2 [facility] Comment on above: Performed By: #### L 100.0100, L500.4050 ####[facility] [address] [place], [address] Glucose [Mass/Vol] 181 mg/dL High 70-99 [facility] Comment on above: Performed By: #### L 100.0100, L500.4050 ####[facility] [address] [place], [address] Potassium [Moles/Vol] 4.6 mmol/L Normal 3.3-5.1 [facility] Comment on above: Performed By: #### L 100.0100, L500.4050 ####[facility] [address] [place], [address] Sodium [Moles/Vol] 150 mmol/L High 133-145 [facility] Comment on above: Performed By: #### L 100.0100, L500.4050 ####[facility] [address] [place], [address] T PROT 7.5 g/dL Normal 5.9-8.4 [facility] Comment on above: Performed By: #### L 100.0100, L500.4050 ####[facility] [address] [place], [address] Urea nitrogen [Mass/Vol] 23 mg/dL High 4-19 [facility] Comment on above: Performed By: #### L 100.0100, L500.4050 ####[facility] [address] [place], [address] Creatinine Unsp time (U) [Ma ss/Vol]Ordered By: David Ruvalcaba on 05-25-2024 Random urine creatinine measurement (mass/volume) 49.80 mg/dL 39.00-259.00 [facility] Ketones Test strip Ql (U)Ord ered By: David Ruvalcaba on 05-25-2024 Ketones Ql (U) Negative Negative [facility] MR/CON.PCM.NEon 05-25-2024 MR/CON.PCM.NE Normal [facility] Mucus LM Ql (Urine sed)Order ed By: David Ruvalcaba on 05-25-2024 Mucus Ql (Urine sed) 0 SEEN /hpf [facility] Nitrite Test strip Ql (U)Ord ered By: David Ruvalcaba on 05-25-2024 Nitrite Ql (U) Negative Negative [facility] Osmolality, Urineon 05-26-19 25 OSMOLALITY,UR 281 mOsm/KG Normal [facility] Comment on above: Result Comment: Norm al Urine Reference Ranges Random: 50 - 1200 mOsm/kg H20 depending on fluid intake Random: >850 mOsm/kg after 12 hour fluid restriction 24 hour: 300 - 900 mOsm/kg H2O Performed By: #### L 500.9400, L400.0001, L501.7400, L501.0900 ####[facility] [address] [place], [place], [phone] Protein (U) [Mass/Vol]Ordere d By: David Ruvalcaba on 05-25-2024 Urine protein measurement (mass/volume) 17.3 mg/dL High 0.0-12.0 [facility] Protein Test strip Ql (U)Ord ered By: David Ruvalcaba on 05-25-2024 Protein Ql (U) 30 mg/dl High Negative [facility] Urine protein assay by test strip, semi-quantitative 30 mg/dl High Negative [facility] Protein+Creatinine Ratio,Uri neon 05-25-2024 PROT:CRE RATIO 347 mg/g CRE High 0-200 [facility] Comment on above: Performed By: #### L 500.9400, L400.0001, L501.7400, L501.0900 ####[facility] [address] [place], [place], [id number](550) Protein (U) [Mass/Vol] 17.3 mg/dL High 0.0-12.0 [facility] Comment on above: Performed By: #### L 500.9400, L400.0001, L501.7400, L501.0900 ####[facility] [address] [place], [address] Protein/Creatinine (U) [Mass ratio]Ordered By: David Ruvalcaba on 05-25-2024 Urine protein/creatinine mass ratio 347 mg/g CRE High 0-200 [facility] Random urine creatinine vito urement (mass/volume)Ordered By: David Ruvalcaba on 05-25-2024 Creatinine Unsp time (U) [Mass/Vol] 49.80 mg/dL 39.00-259.00 [facility] Respiratory Cultureon 2024 RESPC NO NORMAL ERICK ISOLATED Presumptive C albicans Amount Growth Rare Normal [facility] Comment on above: Performed By: #### M 100.2000, M100.2400 ####[facility] [address] [place], [address] Specific gravity (U) [Rel de nsity]Ordered By: David Ruvalcaba on 05-25-2024 Urine specific gravity measurement 1.005 1.002-1.030 [facility] Squamous epithelial cells de tection in urine sediment by light microscopyOrdered By: David Ruvalcaba on 05-25-2024 Epithelial cells.squamous LM Ql (Urine sed) 0 SEEN /hpf 0-5 [facility] Urinalysis, Completeon 05-25 RBC 0 SEEN Normal 0-5 [facility] Comment on above: Order Comment: JAY TER SPECIMEN Performed By: #### L 500.9400, L400.0001, L501.7400, L501.0900 ####[facility] [address] [place], [address] BACTERIA 0 SEEN Normal None Seen [facility] Comment on above: Order Comment: JAY TER SPECIMEN Performed By: #### L 500.9400, L400.0001, L501.7400, L501.0900 ####[facility] [address] [place], [address] EPI,SQUAMOUS 0 SEEN Normal 0-5 [facility] Comment on above: Order Comment: JAY TER SPECIMEN Performed By: #### L 500.9400, L400.0001, L501.7400, L501.0900 ####[facility] [address] [place], [address] Mucus Ql (Urine sed) 0 SEEN Normal [facility] Comment on above: Order Comment: JAY TER SPECIMEN Performed By: #### L 500.9400, L400.0001, L501.7400, L501.0900 ####[facility] [address] [place], [address] WBC 0 SEEN Normal 0-5 [facility] Comment on above: Order Comment: JAY TER SPECIMEN Performed By: #### L 500.9400, L400.0001, L501.7400, L501.0900 ####[facility] [address] [place], [address] Urine Electrolytes- Randomon 05-25-2024 Chloride,URINE < 20 Normal Not Establ. [facility] Comment on above: Performed By: #### L 500.9400, L400.0001, L501.7400, L501.0900 ####[facility] [address] [place], [address] Sodium (U) [Moles/Vol] 43 mmol/L Normal Not Establ. [facility] Comment on above: Performed By: #### L 500.9400, L400.0001, L501.7400, L501.0900 ####[facility] [address] [place], [address] UR K 15.3 mmol/L Normal Not Establ. [facility] Comment on above: Performed By: #### L 500.9400, L400.0001, L501.7400, L501.0900 ####[facility] [address] [place], [address] Urine blood detectionOrdered By: David Ruvalcaba on 05-25-2024 Urine blood detection 25 /ul High Negative [facility] Urine chloride measurement ( units/volume)Ordered By: David Ruvalcaba on 05-25-2024 Urine chloride measurement (units/volume) < 20 mmol/L Not Establ. [facility] Urine clarityOrdered By: Sarah Ruvalcaba on 05-25-2024 Clarity (U) Clear Clear [facility] Urine color determinationOrd ered By: David Ruvalcaba on 05-25-2024 Color (U) Yellow Yellow [facility] Urine glucose detectionOrder ed By: David Ruvalcaba on 05-25-2024 Glucose Ql (U) Normal mg/dl Normal [facility] Urine glucose detection Normal mg/dl Normal [facility] Urine leukocyte esterase det ection by dipstickOrdered By: David Ruvalcaba on 05-25-2024 Leukocyte esterase Test strip Ql (U) 25 /ul High Negative [facility] Urine pHOrdered By: David Ruvalcaba on 05-25-2024 pH (U) 7.0 [pH] 5.0 - 8.0 [facility] Urine protein measurement (m ass/volume)Ordered By: David Ruvalcaba on 05-25-2024 Protein (U) [Mass/Vol] 17.3 mg/dL High 0.0-12.0 [facility] Urine protein/creatinine mas s ratioOrdered By: David Ruvalcaba on 05-25-2024 Protein/Creatinine (U) [Mass ratio] 347 mg/g CRE High 0-200 [facility] Urine sediment bacteria coun t by microscopy (number/high power field)Ordered By: David Ruvalcaba on 05-25-2024 Bacteria LM.HPF (Urine sed) [#/Area] 0 /[HPF] None Seen [facility] Urine specific gravity measu rementOrdered By: David Ruvalcaba on 05-25-2024 Specific gravity (U) [Rel density] 1.005 1.002-1.030 [facility] Urine total bilirubin detect ion by test stripOrdered By: David Ruvalcaba on 05-25-2024 Urine total bilirubin detection by test strip Negative Negative [facility] Urine urobilinogen measureme ntOrdered By: David Ruvalcaba on 05-25-2024 Urobilinogen Ql (U) Normal mg/dl Normal [facility] Vancomycin, Trough Levelon 0 05-25-2024 VANCO, TROUGH 24.5 ug/mL High 5.0-15.0 [facility] Comment on above: Order Comment: Comme nts: Trough to be drawn 30 mins prior to scheduled [id number] Result Comment: Vinayak mmended goal trough ranges are generally 10-15 mcg/mlfor less severe/complicated infections such as cellulitisor UTI and 15-20 mcg/ml for more severe/complicatedinfections such as bacteremia/sepsis, osteomyelitis,pneumonia or meningitis. Goal trough ranges should takeinto account indication, patient-specific factors andorganism ANTELMO.VANCOMYCIN STANDARED DRUG THERAPY TROUGH LEVEL: 5.0 - 15.0 mg/LVANCOMYCIN HIGH INTENSITY THERAPY TROUGH LEVEL: 15.0 - 20.0 mg/LHigh Intensity therapy recommended for serious lifethreatening infections include:- Myjytdaygx-Czffgqrjmrsz-Mfcbrstie (Ventilator/Healtcare Associated)-SepsisPLEASE CONTACT PHARMACY SERVICES (#[id number]) FOR INTERPRETATIONOF RESULTS. Performed By: #### L 501.8820 ####[facility] [address] [place], [address] White blood cell countOrdere d By: David Ruvalcaba on 05-25-2024 White blood cell count 0 SEEN /hpf 0-5 [facility] White blood cell count 0 SEEN /hpf [facility] pH (U)Ordered By: David Sanders and on 05-25-2024 Urine pH 7.0 5.0 - 8.0 [facility] Basic Metabolic Profile (BMP )on 05-24-2024 BUN/CRE 8.6 RATIO Low 10-20 [facility] Comment on above: Performed By: #### L 500.2500, L501.6710, L100.0500 ####[facility] [address] [place], [address] Calcium [Mass/Vol] 8.5 mg/dL Normal 7.6-11.0 [facility] Comment on above: Performed By: #### L 500.2500, L501.6710, L100.0500 ####[facility] [address] [place], [address] Chloride [Moles/Vol] 112 mmol/L High 98-108 [facility] Comment on above: Performed By: #### L 500.2500, L501.6710, L100.0500 ####[facility] [address] [place], [address] CO2 [Moles/Vol] 26.9 mmol/L Normal 21.0-32.0 [facility] Comment on above: Performed By: #### L 500.2500, L501.6710, L100.0500 ####[facility] [address] [place], [address] Creatinine [Mass/Vol] 1.26 mg/dL High 0.70-1.20 [facility] Comment on above: Performed By: #### L 500.2500, L501.6710, L100.0500 ####[facility] [address] [place], [address] ECRCL 70.61 ml/min Normal 50-250 [facility] Comment on above: Performed By: #### L 500.2500, L501.6710, L100.0500 ####[facility] [address] [place], [address] GAP 7 Normal 5-15 [facility] Comment on above: Performed By: #### L 500.2500, L501.6710, L100.0500 ####[facility] [address] [place], [address] GFR/1.73 sq M.predicted among non-blacks MDRD (S/P/Bld) [Vol rate/Area] 64 mL/min/{1.73_m2} Normal >60 [facility] Comment on above: Result Comment: mL/m in/1.73m2 CKD-EPI Creatinine Equation (2020) Performed By: #### L 500.2500, L501.6710, L100.0500 ####[facility] [address] [place], [address] Glucose [Mass/Vol] 100 mg/dL High 70-99 [facility] Comment on above: Performed By: #### L 500.2500, L501.6710, L100.0500 ####[facility] [address] [place], [address] Potassium [Moles/Vol] 4.4 mmol/L Normal 3.3-5.1 [facility] Comment on above: Performed By: #### L 500.2500, L501.6710, L100.0500 ####[facility] [address] [place], [address] Sodium [Moles/Vol] 145 mmol/L Normal 133-145 [facility] Comment on above: Performed By: #### L 500.2500, L501.6710, L100.0500 ####[facility] [address] [place], [address] Urea nitrogen [Mass/Vol] 11 mg/dL Normal 4-19 [facility] Comment on above: Performed By: #### L 500.2500, L501.6710, L100.0500 ####[facility] [address] [place], [address] Blood Gases by [facility] 025 LEAH TEST Positive Normal [facility] Comment on above: Performed By: #### L 9000.0800 ####[facility] [address] [place], [address] Base excess Calc (Bld) [Moles/Vol] 7 mmol/L High -2 to +2 [facility] Comment on above: Performed By: #### L 9000.0800 ####[facility] [address] [place], [address] Blood Gas Type ART Normal [facility] Comment on above: Performed By: #### L 9000.0800 ####[facility] [address] [place], [address] CO2 [Moles/Vol] 33 mmol/L Normal [facility] Comment on above: Performed By: #### L 9000.0800 ####[facility] [address] [place], [address] FI02 35.0 Normal [facility] Comment on above: Performed By: #### L 9000.0800 ####[facility] [address] [place], [address] HCO3 (Bld) [Moles/Vol] 31.3 mmol/L High 22-26 [facility] Comment on above: Performed By: #### L 9000.0800 ####[facility] [address] [place], [address] Mode AC Normal [facility] Comment on above: Performed By: #### L 9000.0800 ####[facility] [address] [place], [address] O2 Delivery Dev Adult Vent Normal [facility] Comment on above: Performed By: #### L 9000.0800 ####[facility] [address] [place], [address] pCO2 47.5 mmHg High 35-45 [facility] Comment on above: Performed By: #### L 9000.0800 ####[facility] [address] [place], [address] PEEP 5 Normal [facility] Comment on above: Performed By: #### L 9000.0800 ####[facility] [address] [place], [address] pH (Bld) 7.43 [pH] Normal 7.35-7.45 [facility] Comment on above: Performed By: #### L 9000.0800 ####[facility] [address] [place], [address] PO2 59 mmHG Low 75-100 [facility] Comment on above: Performed By: #### L 9000.0800 ####[facility] [address] [place], [address] RR 20 Normal [facility] Comment on above: Performed By: #### L 9000.0800 ####[facility] [address] [place], [address] SITE L Radial Normal [facility] Comment on above: Performed By: #### L 9000.0800 ####[facility] [address] [place], [address] SO2 90 Low 95-99 [facility] Comment on above: Performed By: #### L 9000.0800 ####[facility] [address] [place], [address] Vt 450.0 mL Normal [facility] Comment on above: Performed By: #### L 9000.0800 ####[facility] [address] [place], [address] CBC-Complete Blood Cnt No Di ffon 05-24-2024 Erythrocyte distribution width (RBC) [Ratio] 17.6 % High 11.6-14.6 [facility] Comment on above: Performed By: #### L 500.2500, L501.6710, L100.0500 ####[facility] [address] [place], [address] Hematocrit (Bld) [Volume fraction] 41.0 % Normal 40-54 [facility] Comment on above: Performed By: #### L 500.2500, L501.6710, L100.0500 ####[facility] [address] [place], [address] Hemoglobin (Bld) [Mass/Vol] 12.8 g/dL Low 13.0-16.5 [facility] Comment on above: Performed By: #### L 500.2500, L501.6710, L100.0500 ####[facility] [address] [place], [address] MCH (RBC) [Entitic mass] 33.3 pg High 27.0-32.0 [facility] Comment on above: Performed By: #### L 500.2500, L501.6710, L100.0500 ####[facility] [address] [place], [address] MCHC (RBC) [Mass/Vol] 31.2 g/dL Low 32-36 [facility] Comment on above: Performed By: #### L 500.2500, L501.6710, L100.0500 ####[facility] [address] [place], [address] MCV (RBC) [Entitic vol] 106.8 fL High 80-94 [facility] Comment on above: Performed By: #### L 500.2500, L501.6710, L100.0500 ####[facility] [address] [place], [address] Platelet mean volume (Bld) [Entitic vol] 10.3 fL Normal 6.2-12.0 [facility] Comment on above: Performed By: #### L 500.2500, L501.6710, L100.0500 ####[facility] [address] [place], [address] Platelets (Bld) [#/Vol] 138 10*3/uL Low 150-450 [facility] Comment on above: Performed By: #### L 500.2500, L501.6710, L100.0500 ####[facility] [address] [place], [address] RBC (Bld) [#/Vol] 3.84 10*6/uL Low 4.6-6.2 [facility] Comment on above: Performed By: #### L 500.2500, L501.6710, L100.0500 ####[facility] [address] [place], [address] RDW SD 69.0 fl High 35.1-43.9 [facility] Comment on above: Performed By: #### L 500.2500, L501.6710, L100.0500 ####[facility] [address] [place], [address] WBC (Bld) [#/Vol] 6.0 10*3/uL Normal 4.4-11.0 [facility] Comment on above: Performed By: #### L 500.2500, L501.6710, L100.0500 ####[facility] [address] [place], [address] CRPon 05-24-2024 C-REACTIVE PROT 44.50 mg/L High 0.0-3.0 [facility] Comment on above: Performed By: #### L 500.2500, L501.6710, L100.0500 ####[facility] [address] [place], [address] CRP [Mass/Vol]Ordered By: Ara Bear on 05-24-2024 Serum or plasma C reactive protein measurement (mass/volume) 44.50 mg/L High 0.0-3.0 [facility] Echocardiogram study reportO rdered By: Brain Salcedo on 05-24-2024 Study report [facility] Work Phone: [phone] Serum or plasma C reactive p rotein measurement (mass/volume)Ordered By: Dominic Bear on 05-24-2024 CRP [Mass/Vol] 44.50 mg/L High 0.0-3.0 [facility] Urine Cultureon 05-24-2024 URC Below infection level. PROBABLE PROTEUS SPECIES Gram negative behzad [place] Count <1000 Normal [facility] Comment on above: Performed By: #### M 100.2200, L400.0001, M100.678 ####[facility] [address] [place], [place], [id number] 12 Lead EKGon 05-23-2024 12 Lead EKG Normal [facility] Absolute neutrophil countOrd ered By: Bret Nunes on 05-23-2024 Neutrophils (Bld) [#/Vol] 4.1 10*3/uL 2.0-7.7 [facility] Activated partial thrombopla stin time (aPTT) in platelet poor plasma by coagulation aOrdered By: Bret Nunes on 05-23-2024 aPTT Coag (Bld) [Time] 25.5 s Normal 24.1-36.2 [facility] Comment on above: Performed By: #### L 503.6005, L501.4021, L300.3900, M200.1000, L500.4050, L300.4310, L100.0100 ####[facility] [address] [place], [place], [id number] aPTT Coag (PPP) [Time] 25.5 s 24.1-36.2 [facility] Amphetamine detection with 1 000 ng/mL as cutoffOrdered By: Robson George on 05-23-2024 Amphetamines Screen method >1000 ng/mL Ql (U) Negative < 200 ng/mL [facility] Amphetamine detection with 1000 ng/mL as cutoff Negative < 200 ng/mL [facility] Anion gap in Serum or Plasma Ordered By: Bret Nunes on 05-23-2024 Anion gap [Moles/Vol] 9 mmol/L 5-15 [facility] Arterial patency Wrist arter y --pre arterial punctureOrdered By: Bret Nunes on 05-23-2024 Leah Test Positive [facility] BUN/creatinine ratioOrdered By: Bret Nunes on 05-23-2024 Urea nitrogen/Creatinine [Mass ratio] 7.9 mg/mg Low 10-20 [facility] Base excess Calc (BldV) [Mol es/Vol]Ordered By: Bret Aleksandar on 05-23-2024 Blood Gas Base Excess 9 mmol/L High -2-2 [facility] Basophil percentageOrdered B y: Bret Aleksandar on 05-23-2024 Basophils/100 WBC (Bld) 0.4 % 0-1 [facility] Bilirubin Test strip Ql (U)O rdered By: Bret Aleksandar on 05-23-2024 Bilirubin Ql (U) Negative Negative [facility] Bilirubin, totalOrdered By: Bret Aleksandar on 05-23-2024 Bilirubin [Mass/Vol] 0.70 mg/dL Normal 0.00-1.30 [facility] Comment on above: Performed By: #### L 503.6005, L501.4021, L300.3900, M200.1000, L500.4050, L300.4310, L100.0100 ####[facility] [address] [place], [address] Blood Gases by CPSon 025 LEAH TEST Positive Normal [facility] Comment on above: Performed By: #### L 9000.0800 ####[facility] [address] [place], [address] Base excess Calc (Bld) [Moles/Vol] 9 mmol/L High -2 to +2 [facility] Comment on above: Performed By: #### L 9000.0800 ####[facility] [address], [address] Blood Gas Type ART Normal [facility] Comment on above: Performed By: #### L 9000.0800 ####[facility] [address] [place], [address] CO2 [Moles/Vol] 37 mmol/L Normal [facility] Comment on above: Performed By: #### L 9000.0800 ####[facility] [address] [place], [address] FI02 50.0 Normal [facility] Comment on above: Performed By: #### L 9000.0800 ####[facility] [address] [place], [address] HCO3 (Bld) [Moles/Vol] 35.1 mmol/L High 22-26 [facility] Comment on above: Performed By: #### L 9000.0800 ####[facility] [address] [place], [address] Mode AC Normal [facility] Comment on above: Performed By: #### L 9000.0800 ####[facility] [address] [place], [address] O2 Delivery Dev Adult Vent Normal [facility] Comment on above: Performed By: #### L 9000.0800 ####[facility] [address] [place], [address] pCO2 71.8 mmHg Invalid Interpretation Code 35-45 [facility] Comment on above: Performed By: #### L 9000.0800 ####[facility] [address] [place], [address] PEEP 5 Normal [facility] Comment on above: Performed By: #### L 9000.0800 ####[facility] [address] [place], [address] pH (Bld) 7.30 [pH] Low 7.35-7.45 [facility] Comment on above: Performed By: #### L 9000.0800 ####[facility] [address] [place], [address] PO2 60 mmHG Low 75-100 [facility] Comment on above: Performed By: #### L 9000.0800 ####[facility] [address] [place], [address] Read Back By Yes [facility] Comment on above: Performed By: #### L 9000.0800 ####[facility] [address] [place], [address] Results To aleksandar [facility] Comment on above: Performed By: #### L 0.0800 ####[facility] [address] [place], [address] RR 14 Normal [facility] Comment on above: Performed By: #### L 0.0800 ####[facility] [address] [place], [address] SITE R Radial Normal [facility] Comment on above: Performed By: #### L 0.0800 ####[facility] [address] [place], [address] SO2 86 Low 95-99 [facility] Comment on above: Performed By: #### L 0.0800 ####[facility] [address] [place], [address] Time Given 13:13:42 [facility] Comment on above: Performed By: #### L 8999.0800 ####[facility] [address] [place], [address] Vt 450.0 mL Normal [facility] Comment on above: Performed By: #### L 8999.0800 ####[facility] [address] [place], [address] LEAH TEST Positive Normal [facility] Comment on above: Performed By: #### L 8999.0800 ####[facility] [address] [place], [address] Base excess Calc (Bld) [Moles/Vol] 6 mmol/L High -2 to +2 [facility] Comment on above: Performed By: #### L 0.0800 ####[facility] [address] [place], [address] Blood Gas Type ART Normal [facility] Comment on above: Performed By: #### L 8999.0800 ####[facility] [address] [place], [address] CO2 [Moles/Vol] 35 mmol/L Normal [facility] Comment on above: Performed By: #### L 8999.0800 ####[facility] [address] [place], [address] FI02 6.0 Normal [facility] Comment on above: Performed By: #### L 8999.0800 ####[facility] [address] [place], [address] HCO3 (Bld) [Moles/Vol] 33.1 mmol/L High 22-26 [facility] Comment on above: Performed By: #### L 8999.0800 ####[facility] [address] [place], [address] Mode Not entered Normal [facility] Comment on above: Performed By: #### L 8999.0800 ####[facility] [address] [place], [address] O2 Delivery Dev Cannula Normal [facility] Comment on above: Performed By: #### L 8999.0800 ####[facility] [address] [place], [address] pCO2 72.3 mmHg Invalid Interpretation Code 35-45 [facility] Comment on above: Performed By: #### L 8999.0800 ####[facility] [address] [place], [address] pH (Bld) 7.27 [pH] Low 7.35-7.45 [facility] Comment on above: Performed By: #### L 0.0800 ####[facility] [address] [place], [address] PO2 44 mmHG Low 75-100 [facility] Comment on above: Performed By: #### L 9000.0800 ####[facility] [address] [place], [address] Read Back By Yes Normal [facility] Comment on above: Performed By: #### L 9000.0800 ####[facility] [address] [place], [address] Results To aleksandar Normal [facility] Comment on above: Performed By: #### L 9000.0800 ####[facility] [address] [place], [address] SITE R Radial Normal [facility] Comment on above: Performed By: #### L 9000.0800 ####[facility] [address] [place], [address] SO2 70 Low 95-99 [facility] Comment on above: Performed By: #### L 9000.0800 ####[facility] [address] [place], [address] Time Given 11:08:22 Normal [facility] Comment on above: Performed By: #### L 9000.0800 ####[facility] [address] [place], [address] Blood bicarbonate measuremen tOrdered By: Bret Nunes on 05-23-2024 Blood Gas Bicarbonate Actual 35.1 mmol/L High 22- [facility] Blood cultureOrdered By: Ana Nunes on 05-23-2024 Bacteria identified Cx Nom (Bld) Brevibacterium luteolum Abnormal [facility] Bacteria identified Cx Nom (Bld) No growth in 5 days. [facility] Blood culture No growth in 5 days. [facility] Blood culture Brevibacterium luteolum Abnormal [facility] Blood polychromasia detectio n by light microscopyOrdered By: Bret Nunes on 05-23-2024 Polychromasia 1+ Normal [facility] Comment on above: Performed By: #### L 503.6005, L501.4021, L300.3900, M200.1000, L500.4050, L300.4310, L100.0100 ####[facility] [address] [place], [place], [address] Polychromasia LM Ql (Bld) 1+ [facility] Brain/Head without Contrasto n 05-23-2024 Brain/Head without Contrast Normal [facility] CBC W/Diff, AutomatedOrdered By: Bret Nunes on 05-23-2024 Anisocytosis Ql (Bld) 1+ Normal [facility] Comment on above: Performed By: #### L 503.6005, L501.4021, L300.3900, M200.1000, L500.4050, L300.4310, L100.0100 ####[facility] [address] [place], [place], [address] CBC W/Diff, Automatedon - PLT MORPH CLUMPED Normal [facility] Comment on above: Performed By: #### L 503.6005, L501.4021, L300.3900, M200.1000, L500.4050, L300.4310, L100.0100 ####[facility] [address] [place], [place], [id number] PLT EST MOD DEC Normal ADEQ [facility] Comment on above: Performed By: #### L 503.6005, L501.4021, L300.3900, M200.1000, L500.4050, L300.4310, L100.0100 ####[facility] [address] [place], [place], [address] CK [Catalytic activity/Vol]O rdered By: Bret Nunes on 05-23-2024 Serum or plasma creatine kinase activity 40 U/L [facility] CPK Total, Creatine Kinaseon 05-23-2024 CPK TOTAL 40 U/L Normal - [facility] Comment on above: Order Comment: Comme nts: DC when propofol is d/c'd Performed By: #### L 501.3620, L501.5000 ####[facility] [address] [place], [place], [id number] Carbon dioxide, total [Moles /volume] in Central venous bloodOrdered By: Bret Nunes on 05-23-2024 CO2 [Moles/Vol] 25.6 mmol/L Normal 21.0-32.0 [facility] Comment on above: Performed By: #### L 503.6005, L501.4021, L300.3900, M200.1000, L500.4050, L300.4310, L100.0100 ####[facility] [address] [place], [place], [id number] Chest 1 View (Portable)on Chest 1 View (Portable) Normal [facility] Chloride assayOrdered By: Ramya Nunes on 05-23-2024 Chloride [Moles/Vol] 96 mmol/L Low 98-108 [facility] Comment on above: Performed By: #### L 503.6005, L501.4021, L300.3900, M200.1000, L500.4050, L300.4310, L100.0100 ####[facility] [address] [place], [address] Comprehensive Metabolic Prof ilon 05-23-2024 ALK PHOS 100 U/L Normal 40-129 [facility] Comment on above: Performed By: #### L 503.6005, L501.4021, L300.3900, M200.1000, L500.4050, L300.4310, L100.0100 ####[facility] [address] [place], [address] BUN/CRE 7.9 RATIO Low 10-20 [facility] Comment on above: Performed By: #### L 503.6005, L501.4021, L300.3900, M200.1000, L500.4050, L300.4310, L100.0100 ####[facility] [address] [place], [address] ECRCL 68.43 ml/min Normal 50-250 [facility] Comment on above: Performed By: #### L 503.6005, L501.4021, L300.3900, M200.1000, L500.4050, L300.4310, L100.0100 ####[facility] [address] [place], [address] GAP 9 Normal 5-15 [facility] Comment on above: Performed By: #### L 503.6005, L501.4021, L300.3900, M200.1000, L500.4050, L300.4310, L100.0100 ####[facility] [address] [place], [address] GFR/1.73 sq M.predicted among non-blacks MDRD (S/P/Bld) [Vol rate/Area] 62 mL/min/{1.73_m2} Normal >60 [facility] Comment on above: Result Comment: mL/m in/1.73m2 CKD-EPI Creatinine Equation (2020) Performed By: #### L 503.6005, L501.4021, L300.3900, M200.1000, L500.4050, L300.4310, L100.0100 ####[facility] [address] [place], [address] T PROT 8.4 g/dL Normal 5.9-8.4 [facility] Comment on above: Performed By: #### L 503.6005, L501.4021, L300.3900, M200.1000, L500.4050, L300.4310, L100.0100 ####[facility] [address] [place], [address] Comprehensive Metabolic Prof ilOrdered By: Bret Nunes on 05-23-2024 AST [Catalytic activity/Vol] 23 U/L Normal <=37 [facility] Comment on above: Hemolysis present, R esults could be affected. Result Comment: Hemo lysis present, Results??could be affected.?? Performed By: #### L 503.6005, L501.4021, L300.3900, M200.1000, L500.4050, L300.4310, L100.0100 ####[facility] [address] [place], [address] Consultation - Intensiviston 05-23-2024 Consultation - 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 Normal [facility] Determination of fraction of inspired oxygenOrdered By: Bret Nunes on 05-23-2024 Blood Gas Oxygen Percent 50.0 [facility] Echo Completeon 05-23-2024 Echo Complete Normal [facility] Emergency Department Summary on 05-23-2024 Emergency Department Summary Normal [facility] Eosinophil percentageOrdered By: Bret Nunes on 05-23-2024 Eosinophils/100 WBC (Bld) 2.1 % 0-5 [facility] Epithelial cells.squamous LM Ql (Urine sed)Ordered By: Bret Nunes on 05-23-2024 Epithelial cells.squamous LM.HPF (Urine sed) [#/Area] 0 /[HPF] 0-5 [facility] Erythrocyte distribution wid th ratioOrdered By: Bret Nunes on 05-23-2024 Erythrocyte distribution width (RBC) [Ratio] 17.2 % High 11.6-14.6 [facility] Erythrocyte distribution wid th standard deviationOrdered By: Bret Nunes on 05-23-2024 Erythrocyte distribution width (RBC) [Entitic vol] 67.9 fL High 35.1-43.9 [facility] Estimation of creatinine melissa aranceOrdered By: Bret Nunes on 05-23-2024 Estimated Creatinine Clearance Calc 68.43 ml/min 50-250 [facility] GFR/1.73 sq M.predicted theodore g non-blacks MDRD (S/P/Bld) [Vol rate/Area]Ordered By: Bret Nunes on 05-23-2024 Estimated GFR (MDRD) Non-Af Amer 62 >60 [facility] Comment on above: mL/min/1.73m2 CKD-EP I Creatinine Equation (2020) Glucose Ql (U)Ordered By: Ramya Nunes on 05-23-2024 Urine Glucose (UA) Normal mg/dl Normal [facility] Gram stainOrdered By: Philip Nunes on 05-23-2024 Microscopic observation Gram stain Nom (Unsp spec) [facility] H AND P Exam - Hospitaliston 05-23-2024 H&P Exam - Hospitalist Normal [facility] Hematocrit Auto (Bld) [Volum e fraction]Ordered By: Bret Nunes on 05-23-2024 Hematocrit (Bld) [Volume fraction] 39.8 % Low 40-54 [facility] Hemoglobin measurementOrdere d By: Bret Nunes on 05-23-2024 Hemoglobin (Bld) [Mass/Vol] 12.3 g/dL Low 13.0-16.5 [facility] Immature granulocytes/100 WB C Auto (Bld)Ordered By: Bret Nunes on 05-23-2024 Immature granulocytes/100 WBC (Bld) 0.400 % 0.0-0.9 [facility] Comment on above: IG% - Immature Granu locytes (promyelocytes, myelocytes and metamyelocytes) > 1% indicates that a LEFT SHIFT is Present. Influenza virus A and B and SARS-CoV-2 (COVID-19) and Respiratory syncytial virus RNAOrdered By: Bret Nunes on 05-23-2024 SARS-CoV-2 (COVID-19) RNA ROBI+probe Ql (Unsp spec) [facility] International normalized rat io (INR) calculationOrdered By: Bert Nunes on 05-23-2024 INR Coag (Bld) [Relative time] 1.1 {INR} [facility] International normalized ratio (INR) calculation 1.1 [facility] Ketones Test strip Ql (U)Ord ered By: Bret Nunes on 05-23-2024 Ketones Ql (U) Negative Negative [facility] L499.0042on 05-23-2024 Trop T High Sen 36 ng/L High <=22 [facility] Comment on above: Performed By: #### L 499.0042 ####[facility] [address] [place], [address] L499.0043on 05-23-2024 Trop T High Sen 37 ng/L High <=22 [facility] Comment on above: Performed By: #### L 499.0043 ####[facility] [address] [place], [address] L501.4021on 05-23-2024 Trop T High Sen 35 ng/L High <=22 [facility] Comment on above: Performed By: #### L 503.6005, L501.4021, L300.3900, M200.1000, L500.4050, L300.4310, L100.0100 ####[facility] [address] [place], [address] L503.7505on 05-23-2024 Natriuretic peptide B (Bld) [Mass/Vol] 249 pg/mL Normal <=900 [facility] Comment on above: Result Comment: Hear t Failure Unlikely: < 300 pg/mLHeart Failure Likely< 50 Years: > 450 pg/mL50-75 Years: > 900 pg/mL>75 Years: > 1800 pg/mL Performed By: #### L 503.7505 ####[facility] [address] [place], [address] L509.7001on 05-23-2024 Procalcitonin 0.11 ng/mL Normal <=0.10 [facility] Comment on above: Result Comment: Inte rpretation:<0.10-0.25 ng/mL: Antibiotic therapy discouraged. Bacterialinfection unlikely.0.25-0.50 ng/mL: Antibiotic therapy encouraged. Bacterialinfection possible.>0.50 ng/mL: Antibiotic therapy strongly encouraged.Suggestive of presence of bacterial infection.PCT should always be interpreted in the clinical context ofthe patient. Therefore, clinicians should use the PCTresults in conjunction with other laboratory findings andclinical signs of the patient. Performed By: #### L 509.7001 ####[facility] [address] [place], [place], [id number] Laboratory - Chemistry and C hemistry - challengeOrdered By: Bret Nunes on 05-23-2024 Natriuretic peptide B (Bld) [Mass/Vol] 249 pg/mL <900 [facility] Comment on above: Heart Failure Unlike ly: < 300 pg/mLHeart Failure Likely< 50 Years: > 450 pg/mL50-75 Years: > 900 pg/mL>75 Years: > 1800 pg/mL Lactic acid measurementOrder ed By: Bret Nunes on 05-23-2024 Lactate [Moles/Vol] mmol/L Normal 0.0-2.0 [facility] Comment on above: Order Comment: Y Performed By: #### L 503.6005, L501.4021, L300.3900, M200.1000, L500.4050, L300.4310, L100.0100 ####[facility] [address] [facility] [address] [place], [place], [id number] Lactic acid measurement < 1.0 mmol/L 0.0-2.0 [facility] Lithiumon 05-23-2024 LI 1.01 mmol/L Normal 0.60-1.20 [facility] Comment on above: Performed By: #### L 501.9060 ####[facility] [address] [facility] [address] [place], [place], [address] [place] levelOrdered By: Ignacia George on 05-23-2024 [place] level 1.01 mmol/L 0.60-1.20 [facility] Lymphocytes Auto (Unsp spec) [#/Vol]Ordered By: Bret Nunes on 05-23-2024 Lymphocytes (Bld) [#/Vol] 0.56 10*3/uL Low 0.83-4.51 [facility] Lymphocytes/100 WBC Auto (Un sp spec)Ordered By: Bret Nunes on 05-23-2024 Lymphocytes/100 WBC (Bld) 10.9 % Low 19-41 [facility] M100.678on 05-23-2024 M100.678 Pending SARS-CoV-2 (COVID 19) Negative INFLUENZA A Negative INFLUENZA B Negative RSV PCR Negative Normal [facility] Comment on above: Performed By: #### M 100.2200, L400.0001, M100.678 ####[facility] [address] [place], [address] MCV (mean corpuscular volume ) determinationOrdered By: Bret Nunes on 05-23-2024 MCV (RBC) [Entitic vol] 107.6 fL High 80-94 [facility] Mean corpuscular hemoglobin (MCH) determinationOrdered By: Bret Nunes on 05-23-2024 MCH (RBC) [Entitic mass] 33.2 pg High 27.0-32.0 [facility] Mean corpuscular hemoglobin concentration (MCHC) determinationOrdered By: Bret Nunes on 05-23-2024 MCHC (RBC) [Mass/Vol] 30.9 g/dL Low 32-36 [facility] Mean platelet volume determi nationOrdered By: Bret Nunes on 05-23-2024 Platelet mean volume (Bld) [Entitic vol] 10.3 fL 6.2-12.0 [facility] Microbial respiratory cultur eOrdered By: Bret Nunes on 05-23-2024 Microorganism identified Cx Nom (Unsp spec) Presumptive C albicans Abnormal [facility] Microorganism identified Cx Nom (Unsp spec)Ordered By: Bret Nunes on 05-23-2024 Microbial respiratory culture Presumptive C albicans Abnormal [facility] Microscopic analysis of urin e for red blood cells (RBC)Ordered By: Bret Nunes on 05-23-2024 Urine RBC 0 SEEN /hpf 0-5 [facility] Monocyte percentageOrdered B y: Bret Nunes on 05-23-2024 Monocytes/100 WBC (Bld) 6.4 % 0-10 [facility] Mucus LM Ql (Urine sed)Order ed By: Bret Nunes on 05-23-2024 Mucus Ql (Urine sed) 0 SEEN /hpf [facility] Neutrophil percentageOrdered By: Bret Nunes on 05-23-2024 Neutrophils/100 WBC (Bld) 79.8 % High 47-70 [facility] Nitrite Test strip Ql (U)Ord ered By: Bret Nunes on 05-23-2024 Nitrite Ql (U) Negative Negative [facility] No Panel InformationOrdered By: Bret Nunes on 05-23-2024 249 pg/mL <900 [facility] Bedside Blood Gas PEEP 5 [facility] Bld Gas Crit Called To/Read Back By Yes [facility] Blood Gas Notified Time 13:13:42 [facility] Blood Gas Notified Whom aleksandar [facility] Blood Gas Respiration Rate 14 [facility] Blood Gas Sample Site R Radial [facility] Blood Gas Specimen Type ART [facility] Blood Gas Tidal Volume 450.0 mL [facility] Blood Gas Vent Mode AC [facility] Oxygen Delivery Device Adult Vent [facility] 13:13:42 [facility] aleksandar [facility] Yes [facility] Troponin T High Sensitivity 35 ng/L High <22 [facility] 35 ng/L High <22 [facility] No Panel InformationOrdered By: Robson George on 05-23-2024 0.11 ng/mL <0.11 [facility] Nucleated red blood cell per centageOrdered By: Bret Nunes on 05-23-2024 Nucleated RBC/100 WBC (Bld) [Ratio] 0.6 % 0-5 [facility] Oxygen saturation measuremen tOrdered By: Bret Nunes on 05-23-2024 Blood Gas Oxygen Saturation 86 % Low 95-99 [facility] Partial pressure of carbon d ioxide measurementOrdered By: Bret Nunes on 05-23-2024 Arterial Blood Partial Pressure CO2 71.8 mmHg High 35-45 [facility] Partial pressure of oxygen m easurementOrdered By: Bret Nunes on 05-23-2024 Arterial Blood Partial Pressure O2 60 mmHG Low 75-100 [facility] Platelet countOrdered By: Ramya Nunes on 05-23-2024 Platelets (Bld) [#/Vol] 79 10*3/uL Low 150-450 [facility] Platelet morphologyOrdered B y: Bret Nunes on 05-23-2024 Platelet morphology finding Nom (Bld) CLUMPED [facility] Platelet morphology finding Nom (Bld)Ordered By: Bret Nunes on 05-23-2024 Platelet Morphology Comment CLUMPED [facility] Platelet morphology CLUMPED [facility] Platelets LM Ql (Bld)Ordered By: Bret Nunes on 05-23-2024 Platelet Estimate MOD DEC ADEQ [facility] Polychromasia LM Ql (Bld)Ord ered By: Bret Nunes on 05-23-2024 Blood polychromasia detection by light microscopy 1+ [facility] Potassium measurement (mass/ volume)Ordered By: Bret Nunes on 05-23-2024 Potassium [Moles/Vol] 4.9 mmol/L Normal 3.3-5.1 [facility] Comment on above: Hemolysis present, R esults could be affected. Result Comment: Hemo lysis present, Results??could be affected.?? Performed By: #### L 503.6005, L501.4021, L300.3900, M200.1000, L500.4050, L300.4310, L100.0100 ####[facility] [address] [place], [address] Protein Test strip Ql (U)Ord ered By: Bret Nunes on 05-23-2024 Protein Ql (U) 30 mg/dl High Negative [facility] Prothrombin Time w/INRon INR Coag (PPP) [Relative time] 1.1 {INR} Normal [facility] Comment on above: Performed By: #### L 503.6005, L501.4021, L300.3900, M200.1000, L500.4050, L300.4310, L100.0100 ####[facility] [address] [place], [place], [phone] Prothrombin timeOrdered By: Bret Nunes on 05-23-2024 PT Coag (PPP) [Time] 14.8 s Normal 11.7-14.9 [facility] Comment on above: Performed By: #### L 503.6005, L501.4021, L300.3900, M200.1000, L500.4050, L300.4310, L100.0100 ####[facility] [address] [place], [address] Prothrombin time 14.8 SECONDS 11.7-14.9 [facility] RBC Auto (Bld) [#/Vol]Ordere d By: Bret Nunes on 05-23-2024 RBC (Bld) [#/Vol] 3.70 10*6/uL Low 4.6-6.2 [facility] Screening urine fentanyl giselle surementOrdered By: Robson George on 05-23-2024 fentaNYL Screen Ql (U) Positive [facility] Serum creatinine measurement (mass/volume)Ordered By: Bret Nunes on 05-23-2024 Creatinine [Mass/Vol] 1.30 mg/dL High 0.70-1.20 [facility] Comment on above: Performed By: #### L 503.6005, L501.4021, L300.3900, M200.1000, L500.4050, L300.4310, L100.0100 ####[facility] [address] [place], [place], [phone] Serum globulin measurementOr dered By: Bret Nunes on 05-23-2024 Globulin (S) [Mass/Vol] 4.5 g/dL High 2.2-4.2 [facility] Comment on above: Performed By: #### L 503.6005, L501.4021, L300.3900, M200.1000, L500.4050, L300.4310, L100.0100 ####[facility] [address] [place], [address] Serum glucose measurement (m ass/volume)Ordered By: Bret Nunes on 05-23-2024 Glucose [Mass/Vol] 99 mg/dL Normal 70-99 [facility] Comment on above: Performed By: #### L 503.6005, L501.4021, L300.3900, M200.1000, L500.4050, L300.4310, L100.0100 ####[facility] [address] [place], [place], [phone] Serum or plasma alanine cabello otransferase (ALT) measurementOrdered By: Bret Nunes on 05-23-2024 ALT [Catalytic activity/Vol] 15 U/L Normal <=46 [facility] Comment on above: Performed By: #### L 503.6005, L501.4021, L300.3900, M200.1000, L500.4050, L300.4310, L100.0100 ####[facility] [address] [place], [address](162) Serum or plasma albumin vito urement (mass/volume)Ordered By: Bret Nunes on 05-23-2024 Albumin [Mass/Vol] 3.9 g/dL Normal 3.4-4.8 [facility] Comment on above: Performed By: #### L 503.6005, L501.4021, L300.3900, M200.1000, L500.4050, L300.4310, L100.0100 ####[facility] [address] [place], [place], [phone]) Serum or plasma albumin/glob ulin mass ratioOrdered By: Bret Nunes on 05-23-2024 Albumin/Globulin [Mass ratio] 0.9 {ratio} Normal 0.9-2.4 [facility] Comment on above: Performed By: #### L 503.6005, L501.4021, L300.3900, M200.1000, L500.4050, L300.4310, L100.0100 ####[facility] [address] [place], [place], [phone](916) Serum or plasma alkaline jessica sphatase measurementOrdered By: Bret Nunes on 05-23-2024 ALP [Catalytic activity/Vol] 100 U/L 40-129 [facility] Serum or plasma calcium vito urement (mass/volume)Ordered By: Bret Nunes on 05-23-2024 Calcium [Mass/Vol] 8.8 mg/dL Normal 7.6-11.0 [facility] Comment on above: Performed By: #### L 503.6005, L501.4021, L300.3900, M200.1000, L500.4050, L300.4310, L100.0100 ####[facility] [address] [place], [address] Serum or plasma creatine kin ase activityOrdered By: Bret Nunes on 05-23-2024 CK [Catalytic activity/Vol] 40 U/L 24-195 [facility] Serum or plasma urea nitroge n measurement (mass/volume)Ordered By: Bret Nunes on 05-23-2024 Urea nitrogen [Mass/Vol] 10 mg/dL Normal 4-19 [facility] Comment on above: Performed By: #### L 503.6005, L501.4021, L300.3900, M200.1000, L500.4050, L300.4310, L100.0100 ####[facility] [address] [place], [address] Sodium levelOrdered By: Mateusz Nunes on 05-23-2024 Sodium [Moles/Vol] 131 mmol/L Low 133-145 [facility] Comment on above: Performed By: #### L 503.6005, L501.4021, L300.3900, M200.1000, L500.4050, L300.4310, L100.0100 ####[facility] [address] [place], [address] Total carbon dioxide measure mentOrdered By: Bret Nunes on 05-23-2024 Blood Gas Total CO2 37 mmol/L [facility] Total proteinOrdered By: Ana Nunes on 05-23-2024 Protein [Mass/Vol] 8.4 g/dL 5.9-8.4 [facility] Triglycerides measurementOrd ered By: Bret Nunes on 05-23-2024 Triglyceride [Mass/Vol] 96 mg/dL Normal [facility] Comment on above: The drugs N-Acetylcy steine and Metamizole may falsely depress this assay. Normal range: <150 mg/dLBorderline High: 150-199 mg/dLHigh: 200-499 mg/dLVery High: >500 mg/dL Order Comment: Comme nts: DC when propofol is d/c'dDC when propofol is d/c'd Result Comment: The drugs N-Acetylcysteine and Metamizole may falselydepress this assay.Normal range: <150 mg/dLBorderline High: 150-199 mg/dLHigh: 200-499 mg/dLVery High: >500 mg/dL Performed By: #### L 501.3620, L501.5000 ####[facility] [address] [place], [place], [phone] Triglycerides measurement 96 mg/dL <199 [facility] Troponin T.cardiac High sens itivity method [Mass/Vol]Ordered By: Bret Nunes on 05-23-2024 Troponin T.cardiac [Mass/volume] in Serum or Plasma by High sensitivity method 37 ng/L High <22 [facility] Troponin T High Sensitivity 2 Hour 36 ng/L High <22 [facility] Troponin T.cardiac [Mass/volume] in Serum or Plasma by High sensitivity method 36 ng/L High <22 [facility] Troponin T.cardiac [Mass/vol ume] in Serum or Plasma by High sensitivity methodOrdered By: Bret Nunes on 05-23-2024 Troponin T.cardiac High sensitivity method [Mass/Vol] 37 ng/L High <22 [facility] Troponin T.cardiac High sensitivity method [Mass/Vol] 36 ng/L High <22 [facility] Urinalysis, Completeon 05-23 RBC 0 SEEN Normal 0-5 [facility] Comment on above: Order Comment: COLLE CTOR TO SPECIFY Performed By: #### M 100.2200, L400.0001, M100.678 ####[facility] [address] [place], [address] WBC 0-5 SEEN Normal 0-5 [facility] Comment on above: Order Comment: COLLE CTOR TO SPECIFY Performed By: #### M 100.2200, L400.0001, M100.678 ####[facility] [address] [place], [address] BACTERIA 0 SEEN Normal None Seen [facility] Comment on above: Order Comment: COLLE CTOR TO SPECIFY Performed By: #### M 100.2200, L400.0001, M100.678 ####[facility] [address] [place], [address] EPI,SQUAMOUS 0 SEEN Normal 0-5 [facility] Comment on above: Order Comment: ZAHRAA CTOR TO SPECIFY Performed By: #### M 100.2200, L400.0001, M100.678 ####[facility] [address] [place], [address] Mucus Ql (Urine sed) 0 SEEN Normal [facility] Comment on above: Order Comment: ZAHRAA CTOR TO SPECIFY Performed By: #### M 100.2200, L400.0001, M100.678 ####[facility] [address] [place], [address] Urine Drug Screen (VISTA)on 05-23-2024 AMPHETAMINES Negative Normal <1000 ng/mL [facility] Comment on above: Performed By: #### L 505.5000 ####[facility] [address] [place], [address] BARBITIURATES Negative Normal < 200 ng/mL [facility] Comment on above: Performed By: #### L 505.5000 ####[facility] [address] [place], [address] BENZODIAZIPINE Negative Normal < 200 ng/mL [facility] Comment on above: Performed By: #### L 505.5000 ####[facility] [address] [facility] [address] BUP Ur Drug Scr Negative Normal < 200 ng/mL [facility] Comment on above: Performed By: #### L 505.5000 ####[facility] [address] [place], [address] COCAINE Negative Normal < 300 ng/mL [facility] Comment on above: Performed By: #### L 505.5000 ####[facility] [address] [place] [phone] Fentanyl Positive Normal [facility] Comment on above: Result Comment: If c onfirmation testing is needed, a separate order will berequired to send out testing to the reference laboratory. Performed By: #### L 505.5000 ####[facility] [address] [place] [phone] METHADONE Negative Normal < 300 ng/mL [facility] Comment on above: Performed By: #### L 505.5000 ####[facility] [address] [place] [address] OPIATES Negative Normal < 300 ng/mL [facility] Comment on above: Performed By: #### L 505.5000 ####[facility] [address] [place] [phone] OXYCODONE Negative Normal < 100 ng/mL [facility] Comment on above: Performed By: #### L 505.5000 ####[facility] [address] [place] [phone] PCP Negative Normal < 25 ng/mL [facility] Comment on above: Performed By: #### L 505.5000 ####[facility] [address] [place] [phone] THC Negative Normal < 50 ng/mL [facility] Comment on above: Performed By: #### L 505.5000 ####[facility] [address] [place] [phone] Urine blood detectionOrdered By: Bret Nunes on 05-23-2024 Urine Occult Blood Negative Negative [facility] Urine clarityOrdered By: Ana Nunes on 05-23-2024 Clarity (U) Clear Clear [facility] Urine color determinationOrd ered By: Bret Nunes on 05-23-2024 Color (U) Yellow Yellow [facility] Urine cultureOrdered By: Ana Nunes on 05-23-2024 Bacteria identified Cx Nom (U) Negative Abnormal [facility] Urine culture Negative Abnormal [facility] Urine leukocyte esterase det ection by dipstickOrdered By: Bret Nunes on 05-23-2024 Leukocyte esterase Test strip Ql (U) 25 /ul High Negative [facility] Urine pHOrdered By: Bret Nunes on 05-23-2024 pH (U) 6.0 [pH] 5.0 - 8.0 [facility] Urine phencyclidine (PCP) de tectionOrdered By: Robson George on 05-23-2024 Phencyclidine Ql (U) Negative < 25 ng/mL [facility] Urine sediment bacteria coun t by microscopy (number/high power field)Ordered By: Bret Nunes on 05-23-2024 Bacteria LM.HPF (Urine sed) [#/Area] 0 /[HPF] None Seen [facility] Urine specific gravity measu rementOrdered By: Bret Nunes on 05-23-2024 Specific gravity (U) [Rel density] 1.010 1.002-1.030 [facility] Urobilinogen Ql (U)Ordered B y: Bret Nunes on 05-23-2024 Urine Urobilinogen Normal mg/dl Normal [facility] White blood cell (WBC) count Ordered By: Bret Nunes on 05-23-2024 WBC (Bld) [#/Vol] 5.1 10*3/uL 4.4-11.0 [facility] White blood cell countOrdere d By: Bret Nunes on 05-23-2024 Urine WBC 0-5 SEEN /hpf 0-5 [facility] aPTT Coag (PPP) [Time]Ordere d By: Bret Nunes on 05-23-2024 Activated partial thromboplastin time (aPTT) in platelet poor plasma by coagulation a 25.5 Seconds 24.1-36.2 [facility] fentaNYL Screen Ql (U)Ordere d By: Robson George on 05-23-2024 Screening urine fentanyl measurement Positive [facility] pH (Unsp spec)Ordered By: Ramya reid Aleksandar on 05-23-2024 Blood Gas pH 7.30 Low 7.35-7.45 [facility] Lithiumon 05-06-2024 LI 0.86 mmol/L Normal 0.60-1.20 [facility] Comment on above: Order Comment: 309.2 [id number] Performed By: #### L 501.9060 ####[facility] [address] [place], [place], [address] [place] levelOrdered By: Derek casandra Salguero on 05-06-2024 [place] Level 0.86 mmol/L 0.60-1.20 [facility] [place] level 0.86 mmol/L 0.60-1.20 [facility] Lithiumon 04-22-2024 LI 1.10 mmol/L Normal 0.60-1.20 [facility] Comment on above: Order Comment: [id number] Performed By: #### L 501.9060 ####[facility] [address] [place], [place], [phone] [place] levelOrdered By: Derek casandra Salguero on 04-22-2024 [place] Level 1.10 mmol/L 0.60-1.20 [facility] [place] level 1.10 mmol/L 0.60-1.20 [facility] ALP [Catalytic activity/Vol] Ordered By: Aldair Woods on 04-21-2024 Serum or plasma alkaline phosphatase measurement 70 U/L 45-117 [facility] ALT [Catalytic activity/Vol] Ordered By: Aldair Woods on 04-21-2024 Serum or plasma alanine aminotransferase (ALT) measurement 22 U/L 16-61 [facility] Albumin [Mass/Vol]Ordered By : Aldair Woods on 04-21-2024 Serum or plasma albumin measurement (mass/volume) 3.0 g/dL Low 3.2-5.0 [facility] Albumin to globulin ratioOrd ered By: Aldair Woods on 04-21-2024 Albumin/Globulin [Mass ratio] 0.5 {ratio} Low 0.9-2.4 [facility] Albumin to globulin ratio 0.5 RATIO Low 0.9-2.4 [facility] Bilirubin, totalOrdered By: Aldair Woods on 04-21-2024 Bilirubin [Mass/Vol] 0.60 mg/dL 0.20-1.00 [facility] Comment on above: For patients on eltr ombopag therapy, use of Dimension [place] TBIL is not recommended. Bilirubin, total 0.60 mg/dL 0.20-1.00 [facility] Blood urea nitrogen (BUN)/cr eatinine ratioOrdered By: Aldair Woods on 04-21-2024 Urea nitrogen/Creatinine [Mass ratio] 8.1 mg/mg Low 10-20 [facility] Blood urea nitrogen (BUN)/creatinine ratio 8.1 RATIO Low 10-20 [facility] CBC-Complete Blood Cnt No Di ffon 04-21-2024 Erythrocyte distribution width (RBC) [Ratio] 14.4 % Normal 11.6-14.6 [facility] Comment on above: Order Comment: 309.2 Performed By: #### L 100.0500, L500.4050 ####[facility] [address] [place], [address] Hematocrit (Bld) [Volume fraction] 42.1 % Normal 40-54 [facility] Comment on above: Order Comment: 309.2 Performed By: #### L 100.0500, L500.4050 ####[facility] [address] [place], [address] Hemoglobin (Bld) [Mass/Vol] 13.0 g/dL Normal 13.0-16.5 [facility] Comment on above: Order Comment: 309.2 Performed By: #### L 100.0500, L500.4050 ####[facility] [address] [place], [address] MCH (RBC) [Entitic mass] 32.1 pg High 27.0-32.0 [facility] Comment on above: Order Comment: 309.2 Performed By: #### L 100.0500, L500.4050 ####[facility] [address] [place], [address] MCHC (RBC) [Mass/Vol] 30.9 g/dL Low 32-36 [facility] Comment on above: Order Comment: 309.2 Performed By: #### L 100.0500, L500.4050 ####[facility] [address] [place], [address] MCV (RBC) [Entitic vol] 104.0 fL High 80-94 [facility] Comment on above: Order Comment: 309.2 Performed By: #### L 100.0500, L500.4050 ####[facility] [address] [place], [address] Platelet mean volume (Bld) [Entitic vol] 9.5 fL Normal 6.2-12.0 [facility] Comment on above: Order Comment: 309.2 Performed By: #### L 100.0500, L500.4050 ####[facility] [address] [place], [address] Platelets (Bld) [#/Vol] 244 10*3/uL Normal 150-450 [facility] Comment on above: Order Comment: 309.2 Performed By: #### L 100.0500, L500.4050 ####[facility] [address] [place], [address] RBC (Bld) [#/Vol] 4.05 10*6/uL Low 4.6-6.2 [facility] Comment on above: Order Comment: 309.2 Performed By: #### L 100.0500, L500.4050 ####[facility] [address] [place], [address] RDW SD 55.5 fl High 35.1-43.9 [facility] Comment on above: Order Comment: 309.2 Performed By: #### L 100.0500, L500.4050 ####[facility] [address] [place], [address] WBC (Bld) [#/Vol] 6.2 10*3/uL Normal 4.4-11.0 [facility] Comment on above: Order Comment: 309.2 Performed By: #### L 100.0500, L500.4050 ####[facility] [address] [place], [address] Calcium [Mass/Vol]Ordered By : Aldair Woods on 04-21-2024 Serum or plasma calcium measurement (mass/volume) 10.0 mg/dL 8.5-10.1 [facility] Carbon dioxide measurementOr dered By: Aldair Woods on 04-21-2024 CO2 [Moles/Vol] 30.0 mmol/L 21.0-32.0 [facility] Carbon dioxide measurement 30.0 mmol/L 21.0-32.0 [facility] Chloride measurementOrdered By: Aldair Woods on 04-21-2024 Chloride [Moles/Vol] 100 mmol/L 98-107 [facility] Chloride measurement 100 mmol/L 98-107 [facility] Comprehensive Metabolic Prof ilon 04-21-2024 Albumin [Mass/Vol] 3.0 g/dL Low 3.2-5.0 [facility] Comment on above: Order Comment: 309.2 Performed By: #### L 100.0500, L500.4050 ####[facility] [address] [place], [address] Albumin/Globulin [Mass ratio] 0.5 {ratio} Low 0.9-2.4 [facility] Comment on above: Order Comment: 309.2 Performed By: #### L 100.0500, L500.4050 ####[facility] [address] [place], [address] ALK P 70 U/L Normal 45-117 [facility] Comment on above: Order Comment: 309.2 Performed By: #### L 100.0500, L500.4050 ####[facility] [address] [place], [address] ALT [Catalytic activity/Vol] 22 U/L Normal 16-61 [facility] Comment on above: Order Comment: 309.2 Performed By: #### L 100.0500, L500.4050 ####[facility] [address] [place], [address] AST [Catalytic activity/Vol] 24 U/L Normal 15-37 [facility] Comment on above: Order Comment: 309.2 Performed By: #### L 100.0500, L500.4050 ####[facility] [address] [place], [address] Bilirubin [Mass/Vol] 0.60 mg/dL Normal 0.20-1.00 [facility] Comment on above: Order Comment: 309.2 Result Comment: For patients on eltrombopag therapy, use of Dimension [place] TBIL is not recommended. Performed By: #### L 100.0500, L500.4050 ####[facility] [address] [place], [address] BUN/CRE 8.1 RATIO Low 10-20 [facility] Comment on above: Order Comment: 309.2 Performed By: #### L 100.0500, L500.4050 ####[facility] [address] [place], [address] CA,Total 10.0 mg/dL Normal 8.5-10.1 [facility] Comment on above: Order Comment: 309.2 Performed By: #### L 100.0500, L500.4050 ####[facility] [address] [place], [address] Chloride [Moles/Vol] 100 mmol/L Normal 98-107 [facility] Comment on above: Order Comment: 309.2 Performed By: #### L 100.0500, L500.4050 ####[facility] [address] [place], [address] CO2 [Moles/Vol] 30.0 mmol/L Normal 21.0-32.0 [facility] Comment on above: Order Comment: 309.2 Performed By: #### L 100.0500, L500.4050 ####[facility] [address] [place], [address] Creatinine [Mass/Vol] 1.48 mg/dL High 0.70-1.30 [facility] Comment on above: Order Comment: 309.2 Result Comment: The validity of the calculated GFR GFRAA in patients over70 years has not been determined. Clinical correlation isessential. Performed By: #### L 100.0500, L500.4050 ####[facility] [address] [place], [address] EST GFR - AA 62 mL/min Normal >60 [facility] Comment on above: Order Comment: 309.2 Result Comment: Afri can [place] GFR Calc Performed By: #### L 100.0500, L500.4050 ####[facility] [address] [place], [address] GAP 5 Normal 5-15 [facility] Comment on above: Order Comment: 309.2 Performed By: #### L 100.0500, L500.4050 ####[facility] [address] [place], [address] GFR/1.73 sq M.predicted among non-blacks MDRD (S/P/Bld) [Vol rate/Area] 51 mL/min/{1.73_m2} Low >60 [facility] Comment on above: Order Comment: 309.2 Result Comment: Non- GFR Calc Performed By: #### L 100.0500, L500.4050 ####[facility] [address] [place], [address] Globulin (S) [Mass/Vol] 5.9 g/dL High 2.2-4.2 [facility] Comment on above: Order Comment: 309.2 Performed By: #### L 100.0500, L500.4050 ####[facility] [address] [place], [address] Glucose [Mass/Vol] 94 mg/dL Normal 74-106 [facility] Comment on above: Order Comment: 309.2 Performed By: #### L 100.0500, L500.4050 ####[facility] [address] [place], [address] Potassium [Moles/Vol] 4.3 mmol/L Normal 3.5-5.1 [facility] Comment on above: Order Comment: 309.2 Performed By: #### L 100.0500, L500.4050 ####[facility] [address] [place], [address] Sodium [Moles/Vol] 134 mmol/L Low 136-145 [facility] Comment on above: Order Comment: 309.2 Performed By: #### L 100.0500, L500.4050 ####[facility] [address] [place], [address] T PROT 8.9 g/dL High 6.4-8.2 [facility] Comment on above: Order Comment: 309.2 Performed By: #### L 100.0500, L500.4050 ####[facility] [address] [place], [address] Urea nitrogen [Mass/Vol] 12 mg/dL Normal 7-18 [facility] Comment on above: Order Comment: 309.2 Performed By: #### L 100.0500, L500.4050 ####[facility] [address] [place], [address] Creatinine [Mass/Vol]Ordered By: Aldair Woods on 04-21-2024 Serum or plasma creatinine measurement (mass/volume) 1.48 mg/dL High 0.70-1.30 [facility] Erythrocyte distribution wid th (RBC) [Ratio]Ordered By: Aldair Woods on 04-21-2024 Erythrocyte distribution width ratio 14.4 % 11.6-14.6 [facility] Erythrocyte distribution wid th ratioOrdered By: Aldair Woods on 04-21-2024 Erythrocyte distribution width (RBC) [Ratio] 14.4 % 11.6-14.6 [facility] Erythrocyte distribution wid th standard deviationOrdered By: Aldair Woods on 04-21-2024 Erythrocyte distribution width (RBC) [Entitic vol] 55.5 fL High 35.1-43.9 [facility] Erythrocyte distribution width (RBC) [Ratio] 55.5 fl High 35.1-43.9 [facility] Erythrocyte distribution width standard deviation 55.5 fl High 35.1-43.9 [facility] Estimated glomerular filtrat ion rate (GFR) AmericanOrdered By: Aldair Woods on 04-21-2024 Estimated GFR (MDRD) Amer 62 mL/min >60 [facility] Comment on above: GFR Calc Estimated glomerular filtration rate (GFR) 62 mL/min >60 [facility] Glomerular filtration rate ( GFR) estimationOrdered By: Aldair Woods on 04-21-2024 Estimated GFR (MDRD) Non-Af Amer 51 mL/min Low >60 [facility] Comment on above: Non- GFR Calc GFR/1.73 sq M.predicted among non-blacks MDRD (S/P/Bld) [Vol rate/Area] 51 mL/min/{1.73_m2} Low >60 [facility] Glomerular filtration rate (GFR) estimation 51 mL/min Low >60 [facility] Glucose measurementOrdered B y: Aldair Woods on 04-21-2024 Glucose [Mass/Vol] 94 mg/dL 74-106 [facility] Glucose measurement 94 mg/dL 74-106 [place] [facility] Hematocrit Auto (Bld) [Volum e fraction]Ordered By: Aldair Woods on 04-21-2024 Hematocrit (Bld) [Volume fraction] 42.1 % 40-54 [facility] Automated blood hematocrit (percentage) 42.1 % 40-54 [facility] Hemoglobin measurementOrdere d By: Aldair Woods on 04-21-2024 Hemoglobin (Bld) [Mass/Vol] 13.0 g/dL 13.0-16.5 [facility] Hemoglobin measurement 13.0 g/dL 13.0-16.5 [facility] Laboratory - Chemistry and C hemistry - challengeOrdered By: Aldair Woods on 04-21-2024 AST [Catalytic activity/Vol] 24 U/L [facility] MCV (RBC) [Entitic vol]Order ed By: Aldair Woods on 04-21-2024 MCV (mean corpuscular volume) determination 104.0 fL High 80-94 [facility] MCV (mean corpuscular volume ) determinationOrdered By: Aldair Woods on 04-21-2024 MCV (RBC) [Entitic vol] 104.0 fL High 80-94 [facility] Mean corpuscular hemoglobin (MCH) determinationOrdered By: Aldair Woods on 04-21-2024 MCH (RBC) [Entitic mass] 32.1 pg High 27.0-32.0 [facility] Mean corpuscular hemoglobin (MCH) determination 32.1 pg High 27.0-32.0 [facility] Mean corpuscular hemoglobin concentration (MCHC) determinationOrdered By: Aldair Woods on 04-21-2024 MCHC (RBC) [Mass/Vol] 30.9 g/dL Low 32-36 [facility] Mean corpuscular hemoglobin concentration (MCHC) determination 30.9 g/dL Low 32-36 [facility] Mean platelet volume determi nationOrdered By: Aldair Woods on 04-21-2024 Platelet mean volume (Bld) [Entitic vol] 9.5 fL 6.2-12.0 [facility] Mean platelet volume determination 9.5 fl 6.2-12.0 [facility] No Panel InformationOrdered By: Aldair Woods on 04-21-2024 24 U/L [facility] Platelet countOrdered By: Bubba Woods on 04-21-2024 Platelets (Bld) [#/Vol] 244 10*3/uL 150-450 [facility] Platelet count 244 K/mm3 150-450 [facility] Potassium measurementOrdered By: Aldair Woods on 04-21-2024 Potassium [Moles/Vol] 4.3 mmol/L 3.5-5.1 [facility] Potassium measurement 4.3 mmol/L 3.5-5.1 [facility] RBC Auto (Bld) [#/Vol]Ordere d By: Aldair Woods on 04-21-2024 RBC (Bld) [#/Vol] 4.05 10*6/uL Low 4.6-6.2 [facility] Automated blood erythrocyte count 4.05 M/mm3 Low 4.6-6.2 [facility] Serum anion gap measurementO rdered By: Aldair Woods on 04-21-2024 Anion gap [Moles/Vol] 5 mmol/L 5-15 [facility] Serum anion gap measurement 5 5-15 [facility] Serum globulin measurementOr dered By: Aldair Woods on 04-21-2024 Globulin (S) [Mass/Vol] 5.9 g/dL High 2.2-4.2 [facility] Serum globulin measurement 5.9 g/dL High 2.2-4.2 [facility] Serum or plasma alanine cabello otransferase (ALT) measurementOrdered By: Aldair Woods on 04-21-2024 ALT [Catalytic activity/Vol] 22 U/L 16-61 [facility] Serum or plasma albumin vito urement (mass/volume)Ordered By: Aldair Woods on 04-21-2024 Albumin [Mass/Vol] 3.0 g/dL Low 3.2-5.0 [facility] Serum or plasma alkaline jessica sphatase measurementOrdered By: Aldair Woods on 04-21-2024 ALP [Catalytic activity/Vol] 70 U/L 45-117 [facility] Serum or plasma calcium vito urement (mass/volume)Ordered By: Aldair Woods on 04-21-2024 Calcium [Mass/Vol] 10.0 mg/dL 8.5-10.1 [facility] Serum or plasma creatinine m easurement (mass/volume)Ordered By: Aldair Woods on 04-21-2024 Creatinine [Mass/Vol] 1.48 mg/dL High 0.70-1.30 [facility] Comment on above: The validity of the calculated GFR & GFRAA in patients over 70 years has not been determined. Clinical correlation is essential. Serum or plasma urea nitroge n measurement (mass/volume)Ordered By: Aldair Woods on 04-21-2024 Urea nitrogen [Mass/Vol] 12 mg/dL 09-19 [facility] Sodium levelOrdered By: Miguel Woods on 04-21-2024 Sodium [Moles/Vol] 134 mmol/L Low 136-145 [facility] Sodium level 134 mmol/L Low 136-145 [facility] Total proteinOrdered By: Johnnie Woods on 04-21-2024 Protein [Mass/Vol] 8.9 g/dL High 6.4-8.2 [facility] Total protein 8.9 g/dL High 6.4-8.2 [facility] Urea nitrogen [Mass/Vol]Orde red By: Aldair Woods on 04-21-2024 Serum or plasma urea nitrogen measurement (mass/volume) 12 mg/dL 09-19 [facility] White blood cell (WBC) count Ordered By: Aldair Woods on 04-21-2024 WBC (Bld) [#/Vol] 6.2 10*3/uL 4.4-11.0 [facility] White blood cell (WBC) count 6.2 K/mm3 4.4-11.0 [facility] Lithiumon 04-08-2024 LI 0.70 mmol/L Normal 0.60-1.20 [facility] Comment on above: Order Comment: 309.2 [id number] Performed By: #### L [id number] ####[facility] [address] [place], [address] [place] levelOrdered By: Stephanie Salguero on 04-08-2024 [place] Level 0.70 mmol/L 0.60-1.20 [facility] [place] level 0.70 mmol/L 0.60-1.20 [facility] Lithiumon 03-25-2024 LI 0.70 mmol/L Normal 0.60-1.20 [facility] Comment on above: Order Comment: 309.2 [phone] Performed By: #### L [id number] ####[facility] [address] [place], [place], [address] [place] levelOrdered By: [facility] Ktdla on 03-25-2024 [place] Level 0.70 mmol/L 0.60-1.20 [facility] [place] level 0.70 mmol/L 0.60-1.20 [facility] Lithiumon 03-11-2024 LI 0.70 mmol/L Normal 0.60-1.20 [facility] Comment on above: Order Comment: [id number] Performed By: #### L [id number] ####[facility] [address] [place], [place], [id number] [place] [facility]Ordered By: [facility]24 [place] Level 0.70 mmol/L 0.60-1.20 [facility] [place] level 0.70 mmol/L 0.60-1.20 [facility] Lithiumon 02-26-2024 LI 0.60 mmol/L Normal 0.60-1.20 [facility] Comment on above: Order Comment: 309.2 [id number] Performed By: #### L [id number] ####[facility] [address] [place], [place], [address] [place] levelOrdered By: Meli Darling on 02-26-2024 [place] Level 0.60 mmol/L 0.60-1.20 [facility] [place] level 0.60 mmol/L 0.60-1.20 [facility] Lithiumon 02-12-2024 LI 0.70 mmol/L Normal 0.60-1.20 [facility] Comment on above: Order Comment: 309.2 [id number] Performed By: #### L [id number] ####[facility] [address] [place], [place], [id number] [place] levelOrdered By: Meli Darling on 02-12-2024 [place] Level 0.70 mmol/L 0.60-1.20 [facility] [place] level 0.70 mmol/L 0.60-1.20 [facility] Lithiumon 01-29-2024 LI 0.70 mmol/L Normal 0.60-1.20 [facility] Comment on above: Order Comment: [id number] Performed By: #### L [id number] ####[facility] [address] [place], [place], [id number] [place] levelOrdered By: Meli Darling on 01-29-2024 [place] Level 0.70 mmol/L 0.60-1.20 [facility] Lithiumon 01-15-2024 LI 0.60 mmol/L Normal 0.60-1.20 [facility] Comment on above: Order Comment: 313.2 [id number] Performed By: #### L [id number] ####[facility] [address] [place], [place], [address] Absolute lymphocyte counton 09-25-2021 Lymphocytes Auto (Unsp spec) [#/Vol] 1.25 10*3/uL 0.83-4.51 [facility] Work Phone: Basophil percentageon 2021 Basophils/100 WBC (Bld) 0.8 % 0-1 [facility] Work Phone: Chloride [Moles/Vol] 108 mmol/L 98-107 [facility] Work Phone: Eosinophils/100 WBC (Bld) 5.0 % 0-5 [facility] Work Phone: Glucose [Mass/Vol] 101 mg/dL 74-106 [facility] Work Phone: Comment on above: Fasting Glucose resu lt from 100 to 125 mg/dL suggests IMPAIRED HOMEOSTASIS per A.D.A. criteria. Neutrophils (Bld) [#/Vol] 4.1 10*3/uL 2.0-7.7 [facility] Work Phone: Neutrophils/100 WBC (Bld) 65.7 % 47-70 [facility] Work Phone: Potassium [Moles/Vol] 4.0 mmol/L 3.5-5.1 [facility] Work Phone: Sodium [Moles/Vol] 139 mmol/L 136-145 [facility] Work Phone: WBC (Bld) [#/Vol] 6.2 10*3/uL 4.4-11.0 [facility] Work Phone: Blood erythrocytes count (nu mber/volume)on 09-25-2021 RBC (Bld) [#/Vol] 4.39 10*6/uL 4.6-6.2 [facility] Work Phone: Blood hemoglobin measurement (mass/volume)on 09-25-2021 Hemoglobin (Bld) [Mass/Vol] 15.5 g/dL 13.0-16.5 [facility] Work Phone: Blood lymphocytes/100 leukoc yteson 09-25-2021 Lymphocytes/100 WBC (Bld) 20.1 % 19-41 [facility] Work Phone: Blood monocytes/100 leukocyt eson 09-25-2021 Monocytes/100 WBC (Bld) 8.2 % 0-10 [facility] Work Phone: Blood platelet mean volumeon 09-25-2021 Platelet mean volume (Bld) [Entitic vol] 8.8 fL 6.2-12.0 [facility] Work Phone: Determination of erythrocyte mean corpuscular volume (MCV)on 09-25-2021 MCV (RBC) [Entitic vol] 105.7 fL 80-94 [facility] Work Phone: Erythrocyte sedimentation ra tonia 09-25-2021 ESR (Bld) [Velocity] 17 mm/h 0-20 [facility] Work Phone: Hematocrit Auto (Bld) [Volum e fraction]on 09-25-2021 Hematocrit (Bld) [Volume fraction] 46.4 % 40-54 [facility] Work Phone: [phone] Laboratory - Chemistry and C hemistry - challengeon 09-25-2021 CO2 [Moles/Vol] 31.0 mmol/L 21.0-32.0 [facility] Work Phone: [phone] Urea nitrogen/Creatinine [Mass ratio] 5.2 mg/mg 10-20 [facility] Work Phone: [phone] Laboratory - Hematology and Cell countson 09-25-2021 Erythrocyte distribution width (RBC) [Entitic vol] 50.3 fL 35.1-43.9 [facility] Work Phone: [phone] Erythrocyte distribution width (RBC) [Ratio] 12.8 % 11.6-14.6 [facility] Work Phone: [phone] Immature granulocytes/100 WBC (Bld) 0.200 % 0.0-0.9 [facility] Work Phone: [phone] Comment on above: IG% - Immature Granu locytes (promyelocytes, myelocytes and metamyelocytes) > 1% indicates that a LEFT SHIFT is Present. MCH (RBC) [Entitic mass] 35.3 pg 27.0-32.0 [facility] Work Phone: [phone] Nucleated RBC/100 WBC (Bld) [Ratio] 0 % 0-5 [facility] Work Phone: [phone] MCHC Auto (RBC) [Mass/Vol]on 09-25-2021 MCHC (RBC) [Mass/Vol] 33.4 g/dL 32-36 [facility] Work Phone: No Panel Informationon 09-25 Estimated Creatinine Clearance Calc 69.16 ml/min [facility] Work Phone: [phone] Estimated GFR (MDRD) Amer 84 mL/min >60 [facility] Work Phone: [phone] Comment on above: GFR Calc Estimated GFR (MDRD) Non-Af Amer 69 mL/min >60 [facility] Work Phone: [phone] Comment on above: Non- GFR Calc Platelets bldon 09-25-2021 Platelets (Bld) [#/Vol] 183 10*3/uL 150-450 [facility] Work Phone: Serum or plasma C reactive p rotein measurement (mass/volume)on 09-25-2021 CRP [Mass/Vol] 12.20 mg/L 0.0-3.0 [facility] Work Phone: Comment on above: C-Reactive Protein ( CRP) provides useful information for thediagnosis, therapy and monitoring of inflammatory processesand associated diseases. For the evaluation of Relative Riskfor Cardiovascular Disease, a High Sensitivity CRP (HSCRP)should be ordered. Serum or plasma calcium vito urement (mass/volume)on 09-25-2021 Calcium [Mass/Vol] 9.6 mg/dL 8.5-10.1 [facility] Work Phone: Serum or plasma creatinine m easurement (mass/volume)on 09-25-2021 Creatinine [Mass/Vol] 1.15 mg/dL 0.70-1.30 [facility] Work Phone: Comment on above: The validity of the calculated GFR & GFRAA in patients over 70 years has not been determined. Clinical correlation is essential. Serum or plasma urea nitroge n measurement (mass/volume)on 09-25-2021 Urea nitrogen [Mass/Vol] 6 mg/dL 7-18 [facility] Work Phone: Thin prep Papanicolaou smear with manual screeningon 09-25-2021 Thin prep Papanicolaou smear with manual screening 0 5-15 [facility] Work Phone: CNPLakeisha 06-29-2021 CNPN Telephone (FAMPWS) TONY ARIZA ([id number]) 1960 Date Time Provider Department 06/29/21 HOLDEN OCONNOR During your visit today, we recorded the following information about you: Stephie Brothers Pss 06/29/2021 1:26 PM Signed Assisted Living is calling requesting a copy of visit notes be faxed to them at [phone] Ashley Whitt LPN 06/29/2021 7:37 PM [facility] Ashley Whitt LPN Allergies As of Date: 06/29/2021 Noted Allergy Reaction CODEINE 02/14/2005 5 - Intolerance ZIPRASIDONE 02/14/2005 5 - Intolerance HALDOL (HALOPERIDOL LACTATE) 02/14/2005 5 - Intolerance Comments: severe muscle contractions LACTATE 01/15/2013 16 - Unknown Date Reviewed: 06/28/2021 Reviewed by: Marcela Hurst - Fully Assessed Reason for Visit: Release Of Medical Records [2017] Prescriptions as of 06/30/2021 - doxycycline monohydrate 100 mg tablet Take 1 tablet by mouth twice daily for 10 days. - fluticasone (FLONASE ALLERGY RELIEF) 50 mcg/actuation nasal spray Use 1 [place] in each nostril once daily. - nystatin (MYCOSTATIN) powder Apply to affected area four times daily. - docusate sodium (DOK) 100 mg capsule Take 100 mg by mouth twice daily. - polyethylene glycol 3350 (MIRALAX ORAL) Take by mouth. - nicotine (NICODERM) 7 mg/24 hr Apply 1 Patch as directed every 24 hours. - acetaminophen (PHARBETOL) 500 mg tablet Take 500 mg by mouth every 8 hours as needed. - MULTIVITAMIN ORAL Take by mouth. - fluPHENAZine (PROLIXIN) 1 mg tablet Take 1 mg by mouth once daily. - ammonium lactate (LAC-HYDRIN) 12 % lotion Apply to affected area as needed. - ergocalciferol 50,000 unit capsule (VITAMIN D2, DRISDOL) Take 50,000 Units by mouth one time a week. - cholecalciferol (VITAMIN D-3) 2,000 unit tablet Take 2,000 Units by mouth once daily. - Cholestyramine-Aspart latoya (CHOLESTYRAMINE LIGHT) 4 gram powder Take by mouth three times daily with meals. - om 3/E/linol/ala/oleic/g la/lip (OMEGA 3-6-9 ORAL) Take by mouth. - montelukast (SINGULAIR) 10 mg tablet Take 10 mg by mouth daily at bedtime. - simvastatin (ZOCOR) 20 mg tablet Take 20 mg by mouth daily at bedtime. - Lactobacillus acidophilus (ACIDOPHILUS ORAL) Take by mouth. - albuterol HFA (VENTOLIN HFA) 90 mcg/actuation inhaler Inhale 2 Puffs as instructed every 4 hours as needed for Wheezing/Shortness of Breath. - omeprazole (PRILOSEC) 20 mg capsule TAKE 1 CAPSULE TWICE A DAY - spironolactone (ALDACTONE) 25 mg tablet TAKE 1 TABLET BY MOUTH ONCE DAILY. - Compression Knee Highs KNEE HIGH COMPRESSION STOCKINGS 20-30 MM to be worn daily. DX: EDEMA - melatonin 1 mg tab Take 1 tablet by mouth daily at bedtime. - triamcinolone acetonide (KENALOG) 0.1 % cream Apply 1 application to affected area once daily. to legs - OLANZapine (ZYPREXA) 10 mg tablet Take 1 tablet by mouth twice daily. 20 mg at night and 10 mg in the morning - lithium 300 mg ORAL capsule Take 2 capsules at bedtime. - fluphenazine deconoate 25 mg/mL INJECTION injection inject 1ml IM every 2 weeks - divalproex sodium(DEPAKOTE ER 500 MG 24 HR TAB) two tablets at 8 am and 2 tablets at bedtime - BENZTROPINE 1 MG TAB one po q am Problem List As Of Date 06/29/2021 Noted Resolved TOBACCO USE DISORDER [F17.200] PARANOID SCHIZO-CHRONIC [F20.0] Diarrhea [R19.7] 07/26/2011 Vomiting alone [R11.10] 06/25/2009 07/26/2011 Nonsp Abn Find-Body NEC [R93.89] 06/25/2009 Esophagitis [K20.90] 07/02/2009 COPD (chronic obstructive pulmonary disease) [J*12/27/2009 GERD (gastroesophageal reflux disease) [K21.9] 12/27/2009 Costochondritis [M94.0] 03/03/2010 Inguinal hernia right unilateral 03/03/2010 Nonspecific elevation of levels of transaminase* Abnormal US (ultrasound) of abdomen [R93.5] Onychomycosis [B35.1] 09/30/2015 Pes planus of both feet [M21.41, M21.42] 09/30/2015 Lower extremity edema [R60.0] Obesity (BMI 30.0-34.9) [E66.9] Encounter Status:Closed by EVENS KENDALL on 06/30/[address] [facility] CNOVon 06-28-2021 CNOV Office Visit (UCWSTR ) TONY ARIZA ([id number]) 1960 M Date Time Provider Department 06/28/21 10:30 AM GAETANO HEAQUILINO During your visit today, we recorded the following information about you: Temperature Pulse Respiration Blood pressure 98.3 degrees 88/minute 18/minute 128/62 Weight 93 kg Gaetano He APRN.HOSTLER HELPER 06/28/2021 11:31 AM Signed Subjective HPI HPI Tony Ariza is a 61 year old male who presents today for CC of wound on right foot. This started weeks ago. Has tried nothing for relief. Has been seen by medical provider at [facility], no treatment rendered. Has been told needs to go to Wound Clinic. Patient asking for another opinion but unwilling to travel out of [place]. This wound has not been seen in wound clinic. Hx of pvd with recent ultrasound. Patient reports has been told in past that some form of amputation was recommended. Denies numbness/tingling of bilat lower extremity. Denies diabetes. .Patient presents with: Pain (foot): right foot wound x 1 week PAST MEDICAL HISTORY Diagnosis Date - Abnormal US (ultrasound) of abdomen - COPD (chronic obstructive pulmonary disease) (HCC) - Diarrhea - GERD (gastroesophageal reflux disease) - Inguinal hernia, right - Lower extremity edema - Nonspecific elevation of levels of transaminase or lactic acid dehydrogenase (LDH) - Obesity (BMI 30.0-34.9) - Onychomycosis - Paranoid schizophrenia, chronic condition ([facility]) Seeing Dr. Astreika - Tobacco use disorder - Vomiting alone PAST SURGICAL HISTORY Procedure Laterality Date - EGD TRANSORAL BIOPSY SINGLE/MULTIPLE 06/25/09 - HERNIA REPAIR HX 2012 bilateral inguinal - LAPAROSCOPY SURG CHOLECYSTECTOMY 1999 Cholecystectomy, lap - PAST SURGICAL HISTORY OF right knee surgery - RPR 1ST INGUN HRNA AGE 7 YRS/> REDUCIBLE Hernia repair, inguinal ALLERGIES Codeine, Ziprasidone, Haldol [Haloperidol Lactate], and Lactate MEDICATIONS fluticasone (FLONASE ALLERGY RELIEF) 50 mcg/actuation nasal spray Use 1 [place] in each nostril once daily. nystatin (MYCOSTATIN) powder Apply to affected area four times daily. docusate sodium (DOK) 100 mg capsule Take 100 mg by mouth twice daily. polyethylene glycol 3350 (MIRALAX ORAL) Take by mouth. nicotine (NICODERM) 7 mg/24 hr Apply 1 Patch as directed every 24 hours. acetaminophen (PHARBETOL) 500 mg tablet Take 500 mg by mouth every 8 hours as needed. MULTIVITAMIN ORAL Take by mouth. fluPHENAZine (PROLIXIN) 1 mg tablet Take 1 mg by mouth once daily. ammonium lactate (LAC-HYDRIN) 12 % lotion Apply to affected area as needed. ergocalciferol 50,000 unit capsule (VITAMIN D2, DRISDOL) Take 50,000 Units by mouth one time a week. cholecalciferol (VITAMIN D-3) 2,000 unit tablet Take 2,000 Units by mouth once daily. Cholestyramine-Aspart latoya (CHOLESTYRAMINE LIGHT) 4 gram powder Take by mouth three times daily with meals. om 3/E/linol/ala/oleic/g la/lip (OMEGA 3-6-9 ORAL) Take by mouth. montelukast (SINGULAIR) 10 mg tablet Take 10 mg by mouth daily at bedtime. simvastatin (ZOCOR) 20 mg tablet Take 20 mg by mouth daily at bedtime. Lactobacillus acidophilus (ACIDOPHILUS ORAL) Take by mouth. albuterol HFA (VENTOLIN HFA) 90 mcg/actuation inhaler Inhale 2 Puffs as instructed every 4 hours as needed for Wheezing/Shortness of Breath. omeprazole (PRILOSEC) 20 mg capsule TAKE 1 CAPSULE TWICE A DAY spironolactone (ALDACTONE) 25 mg tablet TAKE 1 TABLET BY MOUTH ONCE DAILY. Compression Knee Highs KNEE HIGH COMPRESSION STOCKINGS 20-30 MM to be worn daily. DX: EDEMA melatonin 1 mg tab Take 1 tablet by mouth daily at bedtime. OLANZapine (ZYPREXA) 10 mg tablet Take 1 tablet by mouth twice daily. 20 mg at night and 10 mg in the morning lithium 300 mg ORAL capsule Take 2 capsules at bedtime. fluphenazine deconoate 25 mg/mL INJECTION injection inject 1ml IM every 2 weeks divalproex sodium(DEPAKOTE ER 500 MG 24 HR TAB) two tablets at 8 am and 2 tablets at bedtime BENZTROPINE 1 MG TAB one po q am doxycycline monohydrate 100 mg tablet Take 1 tablet by mouth twice daily for 10 days. triamcinolone acetonide (KENALOG) 0.1 % cream Apply 1 application to affected area once daily. to legs FAMILY HISTORY Problem Relation Age of Onset - Alcohol/Drug Father alcoholism - Diabetes Mother diet controlled - Alcohol/Drug Mother - Arthritis Sister - Alcohol/Drug Sister - Diabetes Maternal Grandfather - Heart Paternal Grandfather Social History Tobacco Use - Smoking status: Current Every Day Smoker Packs/day: 2.00 Years: 35.00 Pack years: 70.00 Types: Cigarettes - Smokeless tobacco: Never Used Substance Use Topics - Alcohol use: Yes Alcohol/week: 35.0 standard drinks Types: 14 Cans of Beer (12oz) per week Comment: 2 beers per day - Drug use: No ROS Objective Blood pressure 128/62, pulse 88, temperature 36.8 ?C (98.3 (more content not included)... Normal [facility] Bacteria identified Anaer cx Nom (Unsp spec) Anaerobic Culture Anaerobic cocci [facility] Work Phone: [phone] Bacteria identified Cx Nom ( Wound) Wound Culture Providencia stuartii [facility] Work Phone: [phone] Wound Culture Pseudomonas aeroginosa [facility] Work Phone: [phone] Wound Culture Staphylococcus cohni i urealyti [facility] Work Phone: [phone] Wound Culture Proteus mirabilis [facility] Work Phone: [phone] Gram stain for investigation of transfusion reaction Microscopic observation Gram stain Nom (Unsp spec) [facility] Work Phone: [phone] Vital Signs Date Time Vital Sign Value Performing Clinician Facility 12-17-2024 09:27-0400 Body temperature 97.8 [degF] Ingris Chu [employer] [facility] Work Phone: [facility] 12-17-2024 09:27-0400 Body weight 99.33 kg Ingris Chu [employer] Work Phone: [facility] 12-17-2024 09:27-0400 Diastolic blood pressure 71 mm[Hg] Ingris Chu [employer] Work Phone: [phone] [place] [address] 12-17-2024 09:27-0400 Heart rate 65 /min Ingris Chu [employer]ING TRA[employer] Work Phone: [phone] [place] [address] 12-17-2024 09:27-0400 Respiratory rate 16 /min Ingris Chu [employer]ING TRA[employer]PERATOR[employer] Work Phone: [facility] 12-17-2024 09:27-0400 SaO2% (BldA) [Mass fraction] 92 % Ingris Chu [employer] Work Phone: [facility] 12-17-2024 09:27-0400 Systolic blood pressure 123 mm[Hg] Ingris Chu [employer]ING TRA[employer] OPERATOR[employer] Work Phone: [facility] 06-04-2024 14:25-0400 Heart rate 98 /min Ingris Chu [employer]GGING TRACTOR OPERATOR[employer] Work Phone: [facility] 06-04-2024 14:25-0400 Respiratory rate 18 /min Ingris Chu [employer]ING TRACTOR OPERATOR[employer] Work Phone: [facility] [facility] 06-[facility]24 14:25-0400 SaO2% (BldA) [Mass fraction] 97 % Ingris Chu LOGGING TRACTOR OPERATOR-C Work Phone: [facility] 06-04-2024 14:07-0400 Body temperature 98.3 [degF] Ingris Chu LOGGING TRACTOR OPERATOR-C Work Phone: [facility] 06-04-2024 14:07-0400 Diastolic blood pressure 77 mm[Hg] Ingris Chu LOGGING TRACTOR OPERATOR-C Work Phone: [facility] 06-04-2024 14:07-0400 Systolic blood pressure 127 mm[Hg] Ingris Chu LOGGING TRACTOR OPERATOR-C Work Phone: [facility] 06-04-2024 05:12-0400 Body mass index (BMI) [Ratio] 30.6 kg/m2 Ingris Chu LOGGING TRACTOR OPERATOR-C Work Phone: [facility] 06-04-2024 05:12-0400 Body weight 91.3 kg Ingris Chu LOGGING TRACTOR OPERATOR-C Work Phone: [facility] 06-03-2024 15:41-0400 Body temperature 98 [degF] Ingris Chu LOGGING TRACTOR OPERATOR-C Work Phone: [facility] 06-03-2024 15:41-0400 Diastolic blood pressure 47 mm[Hg] Ingris Chu LOGGING TRACTOR OPERATOR-C Work Phone: [facility] 06-03-2024 15:41-0400 Heart rate 96 /min Ingris Chu LOGGING TRACTOR OPERATOR-C Work Phone: [facility] 06-03-2024 15:41-0400 Respiratory rate 18 /min Ingris Chu LOGGING TRACTOR OPERATOR-C Work Phone: [facility] 06-03-2024 15:41-0400 SaO2% (BldA) [Mass fraction] 94 % Ingris Chu LOGGING TRACTOR OPERATOR-C Work Phone: [facility] 06-03-2024 15:41-0400 Systolic blood pressure 100 mm[Hg] Ingris Chu LOGGING TRACTOR OPERATOR-C Work Phone: [facility] 06-03-2024 08:15-0400 Inhaled oxygen flow rate 1 L/min Ingris Chu LOGGING TRACTOR OPERATOR-C Work Phone: [facility] 06-03-2024 04:10-0400 Body mass index (BMI) [Ratio] 30.3 kg/m2 Ingris Chu LOGGING TRACTOR OPERATOR-C Work Phone: [facility] 06-03-2024 04:10-0400 Body weight 90.6 kg Ingris Chu LOGGING TRACTOR OPERATOR-C Work Phone: [facility] 06-01-2024 11:49-0400 Body height 172.72 cm Ingris Chu LOGGING TRACTOR OPERATOR-C Work Phone: [facility] 05-31-2024 11:24-0400 Inhaled oxygen concentration 4 % Ingris Chu LOGGING TRACTOR OPERATOR-C Work Phone: [facility] 05-23-2024 16:00-0400 Diastolic blood pressure 66 mm[Hg] Ingris Chu LOGGING TRACTOR OPERATOR-C Work Phone: [facility] 05-23-2024 16:00-0400 Heart rate 68 /min Ingris Chu LOGGING TRACTOR OPERATOR-C Work Phone: [facility] 05-23-2024 16:00-0400 Respiratory rate 20 /min Ingris Chu LOGGING TRACTOR OPERATOR-C Work Phone: [phone] [place] [address] 05-23-2024 16:00-0400 SaO2% (BldA) [Mass fraction] 97 % Ingris Chu LOGGING TRACTOR OPERATOR-C Work Phone: [facility] 05-23-2024 16:00-0400 Systolic blood pressure 112 mm[Hg] Ingris Chu LOGGING TRACTOR OPERATOR-C Work Phone: [facility] 05-23-2024 14:32-0400 Body temperature 98.1 [degF] Ingris Chu LOGGING TRACTOR OPERATOR-C Work Phone: [facility] 05-23-2024 11:39-0400 Inhaled oxygen flow rate 6 L/min Ingris Chu LOGGING TRACTOR OPERATOR-C Work Phone: [facility] 05-23-2024 11:31-0400 Inhaled oxygen concentration 50 % Ingris Chu LOGGING TRACTOR OPERATOR-C Work Phone: [facility] 05-23-2024 10:39-0400 Body height 172.72 cm Ingris Chu LOGGING TRACTOR OPERATOR-C Work Phone: [phone] [place] [address] 05-23-2024 10:39-0400 Body mass index (BMI) [Ratio] 34.4 kg/m2 Ingris Chu LOGGING TRACTOR OPERATOR-C Work Phone: [phone] [place] [address] 05-23-2024 10:39-0400 Body weight 102.7 kg Ingris Chu LOGGING TRACTOR OPERATOR-C Work Phone: [facility] 04-19-2023 13:26-0500 Diastolic blood pressure 70 mm[Hg] LOGGING TRACTOR OPERATOR-C Ingris Chu LOGGING TRACTOR OPERATOR Work Phone: [facility] 04-19-2023 13:26-0500 Heart rate 74 /min LOGGING TRACTOR OPERATOR-C Ingris Chu LOGGING TRACTOR OPERATOR Work Phone: [facility] 04-19-2023 13:26-0500 Respiratory rate 16 /min LOGGING TRACTOR OPERATOR-C Ingris Chu LOGGING TRACTOR OPERATOR Work Phone: [facility] 04-19-2023 13:26-0500 Systolic blood pressure 144 mm[Hg] LOGGING TRACTOR OPERATOR-C Ingris Chu LOGGING TRACTOR OPERATOR Work Phone: [facility] 04-12-2023 13:24-0500 Body temperature 96.9 [degF] LOGGING TRACTOR OPERATOR-C Ingris Chu LOGGING TRACTOR OPERATOR Work Phone: [facility] 04-05-2023 00:59-0500 Body weight 90.71 kg LOGGING TRACTOR OPERATOR-C Ingris Chu LOGGING TRACTOR OPERATOR Work Phone: [facility] 04-03-2023 13:02-0500 Body temperature 97.2 [degF] LOGGING TRACTOR OPERATOR-C Ingris Chu LOGGING TRACTOR OPERATOR Work Phone: [facility] 04-03-2023 13:02-0500 Diastolic blood pressure 76 mm[Hg] LOGGING TRACTOR OPERATOR-C Ingris Chu LOGGING TRACTOR OPERATOR Work Phone: [facility] 04-03-2023 13:02-0500 Heart rate 74 /min LOGGING TRACTOR OPERATOR-C Ingris Chu LOGGING TRACTOR OPERATOR Work Phone: [facility] 04-03-2023 13:02-0500 Respiratory rate 18 /min LOGGING TRACTOR OPERATOR-C Ingris Chu LOGGING TRACTOR OPERATOR Work Phone: [facility] 04-03-2023 13:02-0500 Systolic blood pressure 138 mm[Hg] LOGGING TRACTOR OPERATOR-C Ingris Chu LOGGING TRACTOR OPERATOR Work Phone: [facility] 03-22-2023 13:15-0500 Body weight 90.71 kg LOGGING TRACTOR OPERATOR-C Ingris Chu LOGGING TRACTOR OPERATOR Work Phone: [facility] 11-15-2021 09:49-0400 Body temperature 97.5 [degF] LOGGING TRACTOR OPERATOR-C Ingris Chu LOGGING TRACTOR OPERATOR Work Phone: [facility] Work Phone: 11-15-2021 09:49-0400 Diastolic blood pressure 66 mm[Hg] LOGGING TRACTOR OPERATOR-C Ingris Chu LOGGING TRACTOR OPERATOR Work Phone: [facility] Work Phone: 11-15-2021 09:49-0400 Heart rate 62 /min LOGGING TRACTOR OPERATOR-C Ingris Chu LOGGING TRACTOR OPERATOR Work Phone: [facility] Work Phone: 11-15-2021 09:49-0400 Respiratory rate 18 /min LOGGING TRACTOR OPERATOR-C Ingris Chu LOGGING TRACTOR OPERATOR Work Phone: [facility] Work Phone: 11-15-2021 09:49-0400 Systolic blood pressure 120 mm[Hg] LOGGING TRACTOR OPERATOR-C Ingris Chu LOGGING TRACTOR OPERATOR Work Phone: [facility] Work Phone: 11-01-2021 13:15-0400 Body temperature 97.3 [degF] LOGGING TRACTOR OPERATOR-C Ingris Chu LOGGING TRACTOR OPERATOR Work Phone: [facility] Work Phone: 11-01-2021 13:15-0400 Diastolic blood pressure 64 mm[Hg] LOGGING TRACTOR OPERATOR-C Ingris Chu LOGGING TRACTOR OPERATOR Work Phone: [facility] Work Phone: 11-01-2021 13:15-0400 Heart rate 69 /min LOGGING TRACTOR OPERATOR-C Ingris Chu LOGGING TRACTOR OPERATOR Work Phone: [facility] Work Phone: 11-01-2021 13:15-0400 Respiratory rate 18 /min LOGGING TRACTOR OPERATOR-C Ingris Chu LOGGING TRACTOR OPERATOR Work Phone: [facility] Work Phone: 11-01-2021 13:15-0400 Systolic blood pressure 129 mm[Hg] LOGGING TRACTOR OPERATOR-C Ingris Chu LOGGING TRACTOR OPERATOR Work Phone: [facility] Work Phone: 09-29-2021 08:54-0400 Body temperature 96.2 [degF] [facility] Work Phone: 09-29-2021 08:54-0400 Diastolic blood pressure 72 mm[Hg] [facility] Work Phone: 09-29-2021 08:54-0400 Heart rate 82 /min [facility] Work Phone: 09-29-2021 08:54-0400 Respiratory rate 20 /min [facility] Work Phone: 09-29-2021 08:54-0400 Systolic blood pressure 114 mm[Hg] [facility] Work Phone: 09-25-2021 15:56-0400 Body temperature 99 [degF] [facility] Work Phone: 09-25-2021 15:56-0400 Diastolic blood pressure 65 mm[Hg] [facility] Work Phone: 09-25-2021 15:56-0400 Heart rate 76 /min [facility] Work Phone: 09-25-2021 15:56-0400 Systolic blood pressure 118 mm[Hg] [facility] Work Phone: 09-25-2021 14:02-0400 Body height 175.26 cm [facility] Work Phone: 09-25-2021 14:02-0400 Body mass index (BMI) [Ratio] 30.1 kg/m2 [facility] Work Phone: 09-25-2021 14:02-0400 Body weight 92.5 kg [facility] Work Phone: 09-25-2021 14:02-0400 Respiratory rate 16 /min [facility] Work Phone: 09-25-2021 14:02-0400 SaO2% (BldA) [Mass fraction] 98 % [facility] Work Phone: 09-22-2021 09:03-0400 Body temperature 97.4 [degF] [facility] Work Phone: 09-22-2021 09:03-0400 Diastolic blood pressure 78 mm[Hg] [facility] Work Phone: 09-22-2021 09:03-0400 Heart rate 84 /min [facility] Work Phone: 09-22-2021 09:03-0400 Systolic blood pressure 147 mm[Hg] [facility] Work Phone: 09-02-2021 00:15-0400 Respiratory rate 16 /min [facility] Work Phone: 09-01-2021 09:21-0400 Body temperature 97.4 [degF] [facility] Work Phone: 09-01-2021 09:21-0400 Diastolic blood pressure 85 mm[Hg] [facility] Work Phone: 09-01-2021 09:21-0400 Heart rate 60 /min [facility] Work Phone: 09-01-2021 09:21-0400 Systolic blood pressure 118 mm[Hg] [facility] Work Phone: 08-18-2021 09:02-0400 Respiratory rate 16 /min [facility] Work Phone: 07-28-2021 08:06-0400 Body temperature 97.7 [degF] [facility] Work Phone: 07-28-2021 08:06-0400 Diastolic blood pressure 73 mm[Hg] [facility] Work Phone: 07-28-2021 08:06-0400 Heart rate 61 /min [facility] Work Phone: 07-28-2021 08:06-0400 Respiratory rate 18 /min [facility] Work Phone: 07-28-2021 08:06-0400 Systolic blood pressure 127 mm[Hg] [facility] Work Phone: 06-28-2021 10:53-0400 Body temperature 98.29 [degF] Gaetano Neri FIRESTOPPER TECHNICIAN.HOSTLER HELPER Work Phone: [facility] 06-28-2021 10:53-0400 Body weight 92.99 kg Gaetano Neri FIRESTOPPER TECHNICIAN.HOSTLER HELPER Work Phone: [facility] 06-28-2021 10:53-0400 Diastolic blood pressure 62 mm[Hg] Gaetano Neri FIRESTOPPER TECHNICIAN.HOSTLER HELPER Work Phone: [facility] 06-28-2021 10:53-0400 Heart rate 88 /min Gaetano Neri FIRESTOPPER TECHNICIAN.HOSTLER HELPER Work Phone: [facility] 06-28-2021 10:53-0400 Respiratory rate 18 /min Gaetano Neri FIRESTOPPER TECHNICIAN.HOSTLER HELPER Work Phone: [facility] 06-28-2021 10:53-0400 SaO2% (BldA) [Mass fraction] 96 % Gaetano King FIRESTOPPER TECHNICIAN.HOSTLER HELPER Work Phone: [facility] 06-28-2021 10:53-0400 Systolic blood pressure 128 mm[Hg] Gaetano Neri FIRESTOPPER TECHNICIAN.HOSTLER HELPER Work Phone: [facility] Encounters Encounter Date Encounter Type Care Provider Facility Start: 12-17-2024 End: 12-17-2024 Patient encounter procedure Kaye LOFTON -[facility] Work Phone: Start: 12-17-2024 End: 12-17-2024 ambulatory Ingris HERNANDEZ Work Phone: -[facility] Start: 10-02-[address] Dinorah Salguero MD -[facility] Start: 10-02-2024 End: 10-02-2024 ambulatory Dinorah BEACH Facility:[facility] Start: 07-30-2024 End: 07-30-2024 ambulatory Ingris Chu LOGGING TRACTOR OPERATOR-C Work Phone: [facility] Work Phone: Start: 07-30-2024 End: 07-30-2024 Dr. Aldair Woods MD -[facility] Start: 07-30-2024 End: 07-30-2024 ambulatory Aldair Woods OLS Facility:[facility] Start: 07-23-2024 ambulatory Aldair Woods OLS Facil ity:[facility] Start: 07-23-2024 Dr. Aldair Perez [facility] Start: 07-16-2024 ambulatory Aldair Woods OLS Facil ity:[facility] Start: 07-16-2024 Dr. Aldair Perez [facility] Start: 07-09-2024 End: 07-09-2024 Dr. Aldair Woods MD -[facility] Start: 07-09-2024 End: 07-09-2024 ambulatory Aldair Woods OLS Facility:[facility] Start: 06-11-2024 ambulatory Aldair Woods OLS Facil ity:[facility] Start: 06-11-2024 Dr. Aldair Perez [facility] Start: 06-08-2024 ambulatory Aldair Woods OLS Facil ity:[facility] Start: 06-08-2024 Dr. Aldair Perez [facility] Start: 06-06-2024 End: 06-06-2024 Dr. Aldair Woods MD -[facility] Start: 06-06-2024 End: 06-06-2024 ambulatory Aldair Woods OLS Facility:[facility] Start: 06-04-2024 Dr. Robson George [facility] Work Phone: Start: 06-03-2024 Dr. Robson George [facility] Work Phone: Start: 06-02-2024 Dr. Robson George [facility] Work Phone: Start: 06-01-2024 Dr. Mark Gonzalez [facility] Work Phone: Start: 05-31-2024 Dr. Mark Gonzalez [facility] Work Phone: Start: 05-30-2024 Dr. Oebd Garcia DO [facility] Start: 05-30-2024 Dr. Mark Gonzalez [facility] Work Phone: Start: 05-29-2024 Dr. Obed Garcia DO [facility] Start: 05-28-2024 Dr. Mark Gonzalez [facility] Work Phone: Start: 05-27-2024 Dr. Mark Gonzalez [facility] Work Phone: Start: 05-26-2024 Dr. Mark Gonzalez [facility] Work Phone: Start: 05-25-2024 Dr. David Ruvalcaba MD -[facility] Work Phone: Start: 05-24-2024 ambulatory Ingris Chu LOGGING TRACTOR OPERATOR Facility:[facility] Start: 05-24-2024 Dr. Brain Salcedo MD -[facility] Start: 05-24-2024 Dr. David Ruvalcaba MD -[facility] Work Phone: Start: 05-23-2024 ambulatory [facility] Start: 05-23-2024 End: 06-04-2024 Evaluation and management of inpatient Dr. Robson George DO -Intensive Care Unit Work Phone: Start: 05-23-2024 End: 06-04-2024 Dr. Robson George DO -Progressive Care Unit Work Phone: Start: 05-06-2024 End: 05-06-2024 ambulatory Ingrisomar Chu LOGGING TRACTOR OPERATOR-C Work Phone: [facility] Work Phone: Start: 05-06-[address] Dinorah Salguero MD -[facility] Start: 05-06-2024 End: 05-06-2024 Dr. Dinorah Salguero MD [facility] Start: 05-06-2024 End: 05-06-2024 ambulatory Ingris Chu LOGGING TRACTOR OPERATOR Facility:[facility] Start: 04-22-2024 ambulatory Dinorah BEACH Facili ty:[facility] Start: 04-22-[address] Dinorah Salguero MD [facility]: 04-21-[facility]24 ambulatory Aldair BEACH Facil ity:[facility] Start: 04-21-[address] Aldair davis MD [facility] Start: 04-21-2024 Dr. Aldair Perez [facility] Start: 04-08-2024 ambulatory Aldair [place]ACH Facil ity:[facility] Start: 04-08-[address] Aldair davis MD [facility] Start: 04-08-2024 Dr. Aldair Perez [facility] Start: 03-25-2024 End: 03-25-[address] Dinorah Salguero MD [facility] Start: 03-25-2024 End: 03-25-2024 Dr. Dinorah Salguero MD [facility] Start: 03-25-2024 End: 03-25-2024 ambulatory Dinorah BEACH Facility:[facility] Start: 03-11-2024 End: 03-11-[address] Dinorah Salguero MD [facility] Start: 03-11-2024 End: 03-11-2024 Dr. Dinorah Salguero MD [facility] Start: 03-11-2024 End: 03-11-2024 ambulatory Dinorah BEACH Facility:[facility] Start: 02-26-2024 End: 02-26-2024 Departed Referred Sang Darling [facility] Start: 02-26-2024 End: 02-26-2024 Sang Darling [facility] Start: 02-26-2024 End: 02-26-2024 ambulatory Sang Darling OLS Facility:[facility] Start: 02-12-2024 End: 02-12-2024 Departed Referred Sang Darling [facility] Start: 02-12-2024 End: 02-12-2024 Sang Darling [facility] Start: 02-12-2024 End: 02-12-2024 ambulatory Sang Darling OLS Facility:[facility] Start: 01-29-2024 End: 01-29-2024 Departed Referred Sang Darling [facility] Start: 01-29-2024 End: 01-29-2024 ambulatory Sang Darling OLS Facility:[facility] Start: 01-15-2024 End: 01-15-2024 ambulatory Sang Sahuelsen OLS Facility:[facility] Start: 04-19-2023 End: 04-20-2023 ambulatory LOGGING TRACTOR OPERATOR-C Ingris Chu LOGGING TRACTOR OPERATOR Work Phone: [facility] Work Phone: Start: 04-19-2023 End: 04-20-2023 Discharged Recurring LOGGING TRACTOR OPERATOR-C Ingris Chu LOGGING TRACTOR OPERATOR Work Phone: [facility] Work Phone: Start: 04-13-2023 Non-patient / Non-visit LOGGING TRACTOR OPERATOR-C Ingris Chu LOGGING TRACTOR OPERATOR Work Phone: [facility] Start: 04-06-2023 Non-patient / Non-visit LOGGING TRACTOR OPERATOR-C Ingris Chu LOGGING TRACTOR OPERATOR Work Phone: [facility] Start: 04-03-2023 End: 04-04-2023 Discharged Recurring LOGGING TRACTOR OPERATOR-C Ingris Chu LOGGING TRACTOR OPERATOR Work Phone: [facility] Work Phone: Start: 03-30-2023 Non-patient / Non-visit LOGGING TRACTOR OPERATOR-C Ingris Chu LOGGING TRACTOR OPERATOR Work Phone: [facility] Start: 03-22-2023 Non-patient / Non-visit LOGGING TRACTOR OPERATOR-C Ingris Chu LOGGING TRACTOR OPERATOR Work Phone: [facility] Start: 11-15-2021 End: 11-16-2021 ambulatory LOGGING TRACTOR OPERATOR-C Ingris Chu LOGGING TRACTOR OPERATOR Work Phone: [facility] Work Phone: Start: 11-15-2021 End: 11-16-2021 Discharged Recurring LOGGING TRACTOR OPERATOR-C Ingris Chu LOGGING TRACTOR OPERATOR [facility] Start: 11-08-2021 Non-patient / Non-visit LOGGING TRACTOR OPERATOR-C Ingris Chu LOGGING TRACTOR OPERATOR Work Phone: [facility] Start: 11-01-2021 Non-patient / Non-visit LOGGING TRACTOR OPERATOR-C Ingris Chu LOGGING TRACTOR OPERATOR Work Phone: [facility] Start: 11-01-2021 End: 11-02-2021 Discharged Recurring LOGGING TRACTOR OPERATOR-C Ingris Chu LOGGING TRACTOR OPERATOR [facility] Start: 09-29-2021 End: 10-02-2021 [facility] Start: 09-25-2021 End: 09-25-2021 Emergency department patient visit [facility] Start: 09-22-2021 [facility] Start: 09-01-2021 End: 09-01-2021 Discharged Recurring [facility] Start: 07-28-2021 End: 08-02-2021 Discharged Recurring [facility] Start: 06-29-2021 Telephone encounter Tavo Oconnor MD Work Phone: [facility] Comment on above: Release Of Medical R ecords Start: 06-28-2021 End: 06-28-2021 Patient encounter procedure Gaetano He APRN.CNP Work Phone: [facility] Comment on above: Wound of right foot (Primary Dx) Start: 04-18-2021 End: 04-18-2021 Patient encounter procedure [facility] Start: 08-04-2017 [facility] Facility: [id number] Procedures Date Procedure Procedure Detail Performing Clinician Start: 10-02-2024 [place] measurement Adam Chu LOGGING TRACTOR OPERATOR-C Work Phone: Start: 06-11-2024 Mean corpuscular hem oglobin concentration determination Ingris Chu LOGGING TRACTOR OPERATOR-C Work Phone: Start: 06-11-2024 Platelet mean volume determination Ingris Chu LOGGING TRACTOR OPERATOR-C Work Phone: Start: 06-08-2024 Urine microalbumin/creatinine ratio measurement Ingris Chu LOGGING TRACTOR OPERATOR-C Work Phone: Start: 06-06-2024 Assay of triglycerides Ingris Chu LOGGING TRACTOR OPERATOR-C Work Phone: Start: 06-06-2024 Total cholesterol:HD L ratio measurement Ingris Chu LOGGING TRACTOR OPERATOR-C Work Phone: Start: 06-04-2024 Estimated creatinine clearance Ingris Chu LOGGING TRACTOR OPERATOR-C Work Phone: Start: 06-04-2024 Mean corpuscular hem oglobin concentration determination Ingris Chu LOGGING TRACTOR OPERATOR-C Work Phone: Start: 06-04-2024 Platelet mean volume determination Ingris Chu LOGGING TRACTOR OPERATOR-C Work Phone: Start: 06-01-2024 Blood count smear mc rscp w/mnl difrntl wbc count Ingris Chu LOGGING TRACTOR OPERATOR-C Work Phone: Start: 06-01-2024 Nucleated red blood cell count procedure Ingris Chu LOGGING TRACTOR OPERATOR-C Work Phone: Start: 05-30-2024 [place] Ingris burr LOGGING TRACTOR OPERATOR-C Work Phone: Start: 05-27-2024 MRI of brain without contrast Ingris Chu LOGGING TRACTOR OPERATOR-C Work Phone: Start: 05-27-2024 Carbon dioxide measu rement, partial pressure Ingris Chu LOGGING TRACTOR OPERATOR-C Work Phone: Start: 05-27-2024 Gases blood o2 satur ation only direct vito Ingris Chu LOGGING TRACTOR OPERATOR-C Work Phone: Start: 05-27-2024 Measurement of parti al pressure of oxygen in blood Ingris Chu LOGGING TRACTOR OPERATOR-C Work Phone: Start: 05-27-2024 Oxygen measurement Maggy Chu LOGGING TRACTOR OPERATOR-C Work Phone: Start: 05-25-2024 Chloride measurement, urine Ingris Chu LOGGING TRACTOR OPERATOR-C Work Phone: Start: 05-25-2024 Urine microscopy: red cells Ingris Chu LOGGING TRACTOR OPERATOR-C Work Phone: Start: 05-25-2024 Urnls dip stick/tabl et reagent auto microscopy Ingris Chu LOGGING TRACTOR OPERATOR-C Work Phone: Start: 05-23-2024 Benzodiazepine measu rement, urine Ingris Chu LOGGING TRACTOR OPERATOR-C Work Phone: Start: 05-23-2024 Cocaine measurement, urine Ingris Chu LOGGING TRACTOR OPERATOR-C Work Phone: Start: 05-23-2024 Methadone measuremen t, urine Ingris Chu LOGGING TRACTOR OPERATOR-C Work Phone: Start: 05-23-2024 Urine cannabinoid measurement Ingris Chu LOGGING TRACTOR OPERATOR-C Work Phone: Start: 05-23-2024 Urine opiate measurement Ingris Chu LOGGING TRACTOR OPERATOR-C Work Phone: Start: 05-23-2024 [place] measurement Adam Chu LOGGING TRACTOR OPERATOR-C Work Phone: Start: 05-23-2024 Blood culture Ingris good LOGGING TRACTOR OPERATOR-C Work Phone: Start: 05-23-2024 Gram stain microscopy T tyrone Chu LOGGING TRACTOR OPERATOR-C Work Phone: Start: 05-23-2024 Respiratory microbia l culture Ingris Chu LOGGING TRACTOR OPERATOR-C Work Phone: Start: 05-23-2024 SARS-CoV-2, Influenz a & RSV (PCR) Ingris Chu LOGGING TRACTOR OPERATOR-C Work Phone: Start: 05-23-2024 Urine culture Ingris good LOGGING TRACTOR OPERATOR-C Work Phone: Start: 05-23-2024 Ingris Mcgarry duane LOGGING TRACTOR OPERATOR-C Work Phone: Start: 05-23-2024 CT of head without contrast Ingris Chu LOGGING TRACTOR OPERATOR-C Work Phone: Start: 05-23-2024 Plain chest X-ray Rachel Chu LOGGING TRACTOR OPERATOR-C Work Phone: Start: 05-23-2024 Assay of triglycerides Ingris Chu LOGGING TRACTOR OPERATOR-C Work Phone: Start: 05-23-2024 Calculation of international normalized ratio Ingris Chu LOGGING TRACTOR OPERATOR-C Work Phone: Start: 05-06-2024 [place] measurement Adam Chu LOGGING TRACTOR OPERATOR-C Work Phone: Start: 04-22-2024 [place] measurement Adam Chu LOGGING TRACTOR OPERATOR-C Work Phone: Start: 04-21-2024 Albumin/Globulin ratio Ingris Chu LOGGING TRACTOR OPERATOR-C Work Phone: Start: 04-21-2024 Anion gap measurement Brandon Chu LOGGING TRACTOR OPERATOR-C Work Phone: Start: 04-21-2024 BUN/Creatinine ratio Apollo Chu LOGGING TRACTOR OPERATOR-C Work Phone: Start: 04-21-2024 Mean corpuscular hem oglobin concentration determination Ingris Chu LOGGING TRACTOR OPERATOR-C Work Phone: Start: 04-21-2024 Measurement of renal function Ingris Chu LOGGING TRACTOR OPERATOR-C Work Phone: Start: 04-21-2024 Platelet mean volume determination Ingris Chu LOGGING TRACTOR OPERATOR-C Work Phone: Start: 09-25-2021 X-ray of both feet Start: 11-01-2016 Adult depression scr eening assessment Gaetano He APRN.HOSTLER HELPER Work Phone: Start: 07-28-2009 Colonoscopy Gaetano pruett FIRESTOPPER TECHNICIAN.HOSTLER HELPER Work Phone: Anaerobic microbial culture LOGGING TRACTOR OPERATOR-C Ingris Chu LOGGING TRACTOR OPERATOR Work Phone: Investigation of transfusion reaction LOGGING TRACTOR OPERATOR-C Ingris Chu LOGGING TRACTOR OPERATOR Work Phone: Microbial culture, routine N P-C Ingris Chu LOGGING TRACTOR OPERATOR Work Phone: Plan of Treatment Date Care Activity Detail Author Start: 05-09-2027 Urine microalbumin profile DTAP,TDAP,TD (3 - Td or Tdap) [facility] Start: 06-06-2024 Complete blood count [facility] Start: 06-04-2024 Patient discharge [facility] Start: 06-04-2024 Complete blood count [facility] Start: 06-02-2024 [facility] Start: 06-02-2024 [facility] Start: 05-31-2024 [facility] Start: 05-29-2024 Implementation of planned interventions [facility] Start: 05-29-2024 Notification of physician [facility] Start: 05-29-2024 Care planning and problem solving actions [facility] Start: 05-28-2024 Speech therapy assessment [facility] Start: 05-26-2024 Wound care [facility] Start: 05-25-2024 [facility] Start: 05-25-2024 Referral to crew dispatcher [facility] Start: 05-25-2024 [facility] Start: 05-25-2024 Consultation [facility] Start: 05-25-2024 [facility] Start: 05-25-2024 [facility] Start: 05-24-2024 Consultation for treatment [facility] Start: 05-23-2024 Following clinical pathway protocol [facility] Start: 05-23-2024 Assessment of risk of venous thromboembolism [facility] Start: 05-23-2024 Inhalation therapy procedure [facility] Start: 05-23-2024 Insertion of catheter into peripheral vein [facility] Start: 05-23-2024 Measuring intake and output [facility] Start: 05-23-2024 Oxygen therapy [facility] Start: 05-23-2024 Providing care according to standard [facility] Start: 05-23-2024 Referral to occupational therapist [facility] Start: 05-23-2024 Referral to service [facility] Start: 05-23-2024 Vital signs measurements [facility] Start: 05-23-2024 Following clinical pathway protocol [facility] Start: 05-23-2024 [place] measurement [facility] Start: 05-23-2024 Hospital admission, emergency, from emergency room, medical nature [facility] Start: 05-23-2024 Verification routine [facility] Start: 05-23-2024 Admission procedure [facility] Start: 05-23-2024 Bacteria identified in Blood by Culture Blood Culture [facility] Start: 05-23-2024 Bacteria identified in Urine by Culture Urine Culture [facility] Start: 05-23-2024 Blood culture [facility] Start: 05-23-2024 Microscopic observation [Identifier] in Unspecified specimen by Gram stain [facility] Start: 05-23-2024 Respiratory Culture Respiratory Culture [facility] Start: 05-23-2024 Airway suction technique [facility] Start: 05-23-2024 Creatine kinase [Enzymatic activity/volume] in Serum or Plasma [facility] Start: 05-23-2024 Triglycerides measurement [facility] Start: 05-23-2024 End: 05-23-2024 [facility] Start: 05-23-2024 Patient referral to dietitian [facility] Start: 05-23-2024 [facility] Start: 11-03-2021 Influenza [facility] Start: 06-15-2021 LIPID SCREEN LIPID SCREEN [facility] Start: 06-15-2021 PROSTATE CANCER SCREENING DISCUSSION PROSTATE CANCER SCREENING DISCUSSION [facility] Start: 09-16-2020 COVID-19 VACCINE (3 - Booster for Moderna series) COVID-19 VACCINE (3 - Booster for Moderna series) [facility] Start: 06-16-2019 DIABETES SCREEN DIABETES SCREEN [facility] Start: 05-11-2018 COLORECTAL CANCER SCREENING COLORECTAL CANCER SCREENING [facility] Start: 05-11-2018 FECAL OCCULT BLOOD FECAL OCCULT BLOOD [facility] Start: 05-08-2018 ANNUAL PCP TEAM CHRONIC DISEASE VISIT ANNUAL PCP TEAM CHRONIC DISEASE VISIT [facility] Start: 11-01-2017 Adult depression screening assessment DEPRESSION SCREENING [facility] Start: 2017 Influenza vaccination LUNG CANCER SCREENING [facility] Start: 02-28-2012 SHINGRIX VACCINE (1 of 2) SHINGRIX VACCINE (1 of 2) [facility] Start: 07-28-2010 Colonoscopy COLONOSCOPY [facility] Start: 2007 COLOGUARD (FIT-DNA) COLOGUARD (FIT-DNA) [facility] Start: [address] COLONOGRAPHY [facility] Start: 2007 SIGMOIDOSCOPY SIGMOIDOSCOPY [facility] Start: 02-28-1980 HIV SCREENING HIV SCREENING [facility] Start: 02-28-1980 SPIROMETRY SPIROMETRY [facility] Amphetamines [Presen ce] in Urine by Screen method >1000 ng/mL [facility] Anion gap in Serum o r Plasma [facility] Anion gap in Serum o r Plasma [facility] Anion gap in Serum o r Plasma [facility] Bacteria identified in Sputum by Respiratory culture [facility] Benzodiazepine measurement, urine [facility] BUN/Creatinine ratio [facility] BUN/Creatinine ratio [facility] BUN/Creatinine ratio [facility] Calcium [Mass/volume ] in Serum or Plasma [facility] Calcium [Mass/volume ] in Serum or Plasma [facility] Calcium [Mass/volume ] in Serum or Plasma [facility] Carbon dioxide, tota l [Moles/volume] in Central venous blood [facility] Carbon dioxide, tota l [Moles/volume] in Central venous blood [facility] Carbon dioxide, tota l [Moles/volume] in Central venous blood [facility] Cocaine measurement, urine [facility] Creatinine [Mass/vol ume] in Serum or Plasma [facility] Creatinine [Mass/vol ume] in Serum or Plasma [facility] Creatinine [Mass/vol ume] in Serum or Plasma [facility] Erythrocyte mean corpuscular volume determination [facility] Erythrocyte mean corpuscular volume determination [facility] fentaNYL [Presence] in Urine by Screen method [facility] Glucose [Mass/volume ] in Serum or Plasma [facility] Glucose [Mass/volume ] in Serum or Plasma [facility] Glucose [Mass/volume ] in Serum or Plasma [facility] Hematocrit [Volume Fraction] of Blood [facility] Hematocrit [Volume Fraction] of Blood [facility] Hemoglobin [Mass/vol ume] in Blood [facility] Hemoglobin [Mass/vol ume] in Blood [facility] Leukocytes [#/volume ] in Blood [facility] Leukocytes [#/volume ] in Blood [facility] Mean corpuscular hemoglobin concentration determination [facility] Mean corpuscular hemoglobin concentration determination [facility] Mean corpuscular hemoglobin determination [facility] Mean corpuscular hemoglobin determination [facility] Measurement of renal function [facility] Measurement of renal function [facility] Measurement of renal function [facility] Methadone measuremen t, urine [facility] Patient Education ED Wound Check (No Infection) [facility] Work Phone: Patient referral [facility] Work Phone: Phencyclidine [Prese nce] in Urine [facility] Platelets [#/volume] in Blood [facility] Platelets [#/volume] in Blood [facility] Potassium measurement [facility] Potassium measurement [facility] Potassium measurement [facility] Red blood cell count [facility] Red blood cell count [facility] Red cell distributio n width determination [facility] Red cell distributio n width determination [facility] Serum chloride measurement [facility] Serum chloride measurement [facility] Serum chloride measurement [facility] Sodium measurement [facility] Sodium measurement [facility] Sodium measurement [facility] Troponin T.cardiac [Mass/volume] in Serum or Plasma by High sensitivity method [facility] Urea nitrogen [Mass/volume] in Serum or Plasma [facility] Urea nitrogen [Mass/volume] in Serum or Plasma [facility] Urea nitrogen [Mass/volume] in Serum or Plasma [facility] Urine cannabinoid measurement [facility] Urine culture [facility] Urine opiate measurement [facility] Immunizations Immunization Date Immunization Notes Care Provider Kimberlyn manjarrez 05-08-2017 tetanus and diphther ia toxoids, adsorbed, preservative free, for adult use (5 Lf of tetanus toxoid and 2 Lf of diphtheria toxoid) Gaetano He APRN.HOSTLER HELPER Work Phone: [facility] 04-09-2007 tetanus toxoid, redu luis antonio diphtheria toxoid, and acellular pertussis vaccine, adsorbed Gaetano He APRN.HOSTLER HELPER Work Phone: [facility] Work Phone: 01-28-2003 pneumococcal polysaccharide vaccine, 23 valent Gaetano He APRN.HOSTLER HELPER Work Phone: [facility] Work Phone: Payers Date Payer Category Payer Unknown [id number] 2024 Unknown [id number] 2024 Medicaid [id number] 2024 Self-pay [id number] 2024 Unknown [id number] 2018 Medicare [id number] 1.2.8 [id number] 1993 Medicare [id number] Unknown [id number] 2.16.8 40.1.488648.3.579.2.462 Unknown [id number] 2.16.8 40.1.276112.3.579.2.462 Unknown [id number] 2.16.8 40.1.248865.3.579.2.462 Unknown [id number] 2.16.8 40.1.495643.3.579.2.462 Unknown [id number] 2.16.8 40.1.544981.3.579.2.462 Unknown [id number] 2.16.8 40.1.872822.3.579.2.462 Unknown [id number] 2.16.8 40.1.727866.3.579.2.462 Unknown [id number] 2.16.8 40.1.451862.3.579.2.462 Unknown [id number] 2.16.8 40.1.007407.3.579.2.462 Unknown [id number] 2.16.8 40.1.055263.3.579.2.462 Unknown [id number] 2.16.8 40.1.278033.3.579.2.462 Unknown [id number] 2.16.8 40.1.889617.3.579.2.462 Unknown [id number] 2.16.8 40.1.441823.3.579.2.462 Unknown [id number] 2.16.8 40.1.650523.3.579.2.462 Unknown [id number] 2.16.8 40.1.296581.3.579.2.462 Unknown [id number] 2.16.8 40.1.705685.3.579.2.462 Unknown [id number] 2.16.8 40.1.723831.3.579.2.462 Unknown [id number] 2.16.8 40.1.878850.3.579.2.462 Unknown [id number] 2.16.8 40.1.848284.3.579.2.462 Unknown [id number] 2.16.8 40.1.921044.3.579.2.462 Unknown [id number] 2.16.8 40.1.800001.3.579.2.462 Unknown [id number] 2.16.8 40.1.857851.3.579.2.462 Unknown [id number] 2.16.8 40.1.886695.3.579.2.462 Unknown [id number] 2.16.8 40.1.978810.3.579.2.462 Unknown [id number] 2.16.8 40.1.597200.3.579.2.462 Unknown [id number] 2.16.8 40.1.216088.3.579.2.462 Unknown [id number] 2.16.8 40.1.967769.3.579.2.462 Unknown [id number] 2.16.8 40.1.016090.3.579.2.462 Unknown [id number] 2.16.8 40.1.884142.3.579.2.462 Unknown [id number] 2.16.8 40.1.249545.3.579.2.462 Unknown [id number] 2.16.8 40.1.916300.3.579.2.462 Unknown [id number] 2.16.8 40.1.058700.3.579.2.462 Unknown [id number] 2.16.8 40.1.899687.3.579.2.462 Unknown [id number] 2.16.8 40.1.126638.3.579.2.462 Unknown [id number] 2.16.8 40.1.003888.3.579.2.462 Unknown [id number] 2.16.8 40.1.067418.3.579.2.462 Unknown [id number] 2.16.8 40.1.283128.3.579.2.462 Social History Date Type Detail Facility Start: 05-23-2024 End: 05-29-2024 Tobacco smoking status NHIS Smokes tobacco daily [facility] Work Phone: History of tobacco use [facility] Start: 06-28-2021 Alcohol intake Current drinke r of alcohol (finding) [facility] Start: 06-28-2021 Alcohol intake [facility] Start: 05-08-2017 History SDOH Alcohol Comment 2 beers per day [facility] Start: 1960 Sex Assigned At Not on file [facility] Start: 06-18-2021 End: 06-28-2021 Exposure to SARS-CoV-2 (event) Not sure [facility] Work Phone: Start: 07-16-2019 End: 03-22-2023 Tobacco smoking status ILIS Unknown if ever smoked [facility] Start: 07-29-2016 Heavy [facility] Start: 07-29-2016 None [facility] Start: 12-24-2018 - [facility] Start: 07-29-2016 Cigarettes [facility] Start: 1960 Sex Assigned At Male [facility] Start: 05-23-2024 End: 06-04-2024 Sex Male (finding) [facility] Start: 12-17-2024 [facility] Sex Male [facility] Goals Date Patient Goal Desired Activity /State Functional Status Date Assessment Result Facility 06-04-2024 Functional status Ambulates [facility] Work Phone: 06-03-2024 Functional status Chair;Bathroom Privileg e [facility] Work Phone: Mental Status Date Assessment Result Facility 06-04-2024 Cognitive function Appropriate;Impulsive [facility] Work Phone: 06-04-2024 Cognitive function Voice/Name [facility] Work Phone: 06-03-2024 Cognitive function Voice/Name [facility] Work Phone: 05-23-2024 Cognitive function Level Of Consciousness Drowsy [facility] Work Phone: Clinical Notes 06-25-2009 to 12-17-2024 Note Date & Type Note Facility 12-17-2024 Progress note [facility] 06-04-2024 Discharge summary Note Date/Time June 04, 2024 12:22pm [facility] Medical Records Department [address] [place] [address] Discharge Summary 06/04/24 1139 MR#: [id number] Acct: [id number] Name: TONY ARIZA Rep #:[id number] : 1960 64 From: Robson gerardo DO PCP: MARY Chi Status: ADM IN Location: [facility] [facility] LR151-1 Providers Date of Admission: 05/23/24 Date of Discharge: 06/04/24 Primary Care Physician: MARY Chi Consultations 05/23/24 18:16 Consult: 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 / Pulmonary Medicine Routine Consulting Provider: Intensivists/Pulmonary Med Reason for Consult: acute respiratory failure EMERGENT Consult: No MD Notified: Yes Date Notified: 05/23/24 Time Notified: 14:35 Method of Notification: Answering Service Method of Consult:: Telemedicine 05/24/24 12:43 Consult: Onc/Wound/automatic spreader operator Routine Comment: Reason for Consult:: bilat feet wounds 05/25/24 11:27 Consult: Infectious Disease Routine Consulting Provider: Romeo Gallardo Reason for Consult: GPR in blood EMERGENT Consult: No MD Notified: Yes Date Notified: 05/25/24 Time Notified: 11:27 Method of Notification: Text 05/25/24 11:36 Consult: Nephrology Routine Consulting Provider: Geena Domingo Reason for Consult: NILESH on CKD3, ON [place] EMERGENT Consult: No Notified: Yes Date Notified: 05/25/24 Time Notified: 11:36 Method of Notification: Text Reason For Visit: ACUTE RESPIRATORY FAILURE Diagnosis Discharge Diagnosis (1) Hypernatremia: Status: Acute Code(s): E87.0 - Hyperosmolality and hypernatremia (2) NILESH (acute kidney injury): Status: Acute Code(s): N17.9 - Acute kidney failure, unspecified 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 07/29/16 montelukast 10 mg tablet 10 mg PO DAILY 05/02/18 omega-3 fatty acids-fish oil 300 mg-1,000 mg capsule 2 capsule PO BID [id number]/28/19 simvastatin 20 mg tablet (Zocor) 20 mg PO QHS 05/02/18 ammonium lactate 12 % topical cream 1 applic topical BID skin irritation 10/30/23 multivitamin (Daily Multi-Vitamin tablet) 1 tab PO DAILY replacement 12/09/23 acetaminophen 325 mg tablet 650 mg PO Q4H PRN fever or pain 05/23/24 acetaminophen 650 mg rectal suppository 650 mg AZ Q4H PRN pain 05/23/24 aluminum-mag hydroxide-simethicone 400 mg-400 mg-40 mg/5 mL oral susp (Mintox Maximum Strength) 30 ml PO Q4H PRN indigestion 05/23/24 bisacodyl 10 mg rectal suppository 10 mg AZ DAILY PRN CONSTIPATION 05/23/24 cholecalciferol (vitamin D3) 50 mcg (2,000 unit) tablet (D3 DOTS) 50 mcg PO QHS SUPPLEMENT 05/23/24 magnesium hydroxide 400 mg/5 mL oral suspension (Dulcolax (magnesium hydroxide))30 ml PO DAILY PRN constipation 05/23/24 melatonin 5 mg tablet 5 mg PO QHS 05/23/24 menthol 10 % topical cream (Biofreeze (menthol)) 1 applic topical Q12H PRN pain 05/23/24 sodium phosphates 19 gram-7 gram/118 mL enema (Fleet Enema) 118 ml AZ BID PRN constipation 05/23/24 trazodone 50 mg tablet 50 mg PO QHS sleep 05/23/24 hydrochlorothiazide 25 mg tablet 25 mg PO DAILY 30 days #0 tabs 06/04/24 lithium carbonate 300 mg capsule 300 mg PO QHS 30 days #0 caps 06/04/24 olanzapine 10 mg tablet 10 mg PO BID 30 days #0 tabs 06/04/24 Hospital Course Operations None Procedures EKG, Intubation, Modified Barium Swallow, Transthoracic echo and - (Chest x-ray,CT brain, MRI brain) Summary of Care Provided Minutes Spent on Discharge: 35 Hospital Course: Patient is a 64-year-old male who presented to [facility] ED on 05/23/2024 with altered mentation. Hospital course as noted below. Patient discharged to extended-care facility in stable condition on 06/04. 1. Acute respiratory failure with hypoxia and hypercapnia, resolved ? 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 followed. Multifactorial secondary to COPD exacerbation plus aspiration pneumonia plus heart failure. Required intubation on admission. Wassuccessfully extubated on 05/28. Stable on room air at this time. Completed course of Unasyn and vancomycin for pneumonia. No further treatment needed at this time. 2. Toxic metabolic encephalopathy, resolved ? Neurology followed. Suspected secondary to hypercapnia plus psychiatric condition versus psychiatric medications. Intubated on admission as noted above. [place] level was within normal limits on admit. [place] and olanzapinehave been held since admission. EEG showed severe diffuse encephalopathy, no epileptiform discharges. MRI brain was unremarkable. No further workup needed per neurology. Patient back to baseline per family at this time. However, theyhave concern for him having a psychiatric crisis since he has been off his medications, as [facility] [place] [facility] Discussed with nephrology on 06/02 and was noted that diabetes insipidus will not worsen if patient restarts lithium. However, as patient is now on hydrochlorothiazide, restarted lithium at reduced dose of 300 mg at night and restarted olanzapine at reduced dose of 10 mg twice daily as well. Tolerating reduced doses well, will continue on discharge. 3. Nephrogenic diabetes insipidus with hypernatremia, improving ? Nephrology followed. Sodium 131 on admit. Urine output began increased afterbeing started on IV Lasix but Lasix was stopped with continued heavy urine output. Polyuric with up to 6.7 L urine output daily. Serum sodium peaked at 170. Received 2 doses of DDAVP without much improvement. Started on hydrochlorothiazide on 06/01 and D5W with steady improvement in sodium level. Off IV fluids altogether. No fluid restriction needed. Most recent sodium level 143 on 06/04, stable. Okay for discharge from nephrology standpoint. 4. Schizophrenia ? [place] level within normal limits on admit. [place] and olanzapine held on admit as patient was intubated. As noted above, restarted lithium and olanzapine at reduced doses on 06/02. 5. Hypertension, hyperlipidemia ? Held home amlodipine and spironolactone as patient was started on hydrochlorothiazide and blood pressures were normotensive; will discontinue themon discharge. Continue home statin. 6. GERD ? Continue home PPI. Total clinical time spent by myself addressing the patient's medical issues, reviewing all the data, and collaborating with patient's care team: 35 minutes. Physical Exam Const alert, oriented x3, no apparent distress and average body habitus Constitutional Narrative: Upper middle-aged male, somewhat chronically ill-appearing, good energy level, sitting up comfortably in bedside chair, answering questions appropriately with some tangential speech, in no acute distress. General Appearance: cooperative and comfortable HEENT normocephalic, head/scalp atraumatic, hearing grossly normal bilaterally, nasal mucous membranes and turbinates normal and moist oral mucous membranes Eyes PERRL, EOMs intact bilaterally and conjunctivae normal Neck full ROM Chest inspection of chest normal Resp normal respiratory effort, normal air movement, no use of accessory muscles and clear to auscultation bilaterally Cardio regular rate, regular rhythm, no murmurs and peripheral pulses 2+ throughout GI normal to inspection, nondistended, normoactive bowel sounds, soft to palpation,non-tender and non-distended Back/Spine normal ROM Extremity normal to inspection, full ROM and no pedal edema Skin no rashes or lesions noted Psych mental status grossly normal Weight / BMI Weight Weight: 91.3 kg Body Mass Index (BMI) 30.6 ABG / Lab / Microbiology Data 06/04/24 06:26 06/04/24 06:26 Laboratory: Laboratory Results - last 24 hr 06/04/24 06:26: WBC 7.1, RBC 4.43 L, Hgb 14.3, Hct 46.1, MCV 104.1 H D, MCH 32.3H, MCHC 31.0 L, RDW Std Deviation 61.7 H, RDW Coeff of Babatunde 16.1 H, Plt Count 191, MPV 11.1, Sodium 143, Potassium 4.1, Chloride 107, Carbon Dioxide 23.7, Anion Gap 12, BUN 31 H, Creatinine 1.72 H, Estim Creat Clear Calc 48.85 L, Est GFR (MDRD) Non-Af 44 L, BUN/Creatinine Ratio 17.9, Glucose 111 H, Calcium 10.0 Microbiology: Microbiology 05/23/24 11:00 Blood Culture (Wb) - Anticubital Right Blood Culture - Final Brevibacterium luteolum 05/23/24 11:00 Blood Culture (Wb) - Right Hand Blood Culture - Final No growth in 5 days. 05/23/24 12:20 Sputum, Induced/Lukens Gram Stain - Final 05/23/24 12:20 Sputum, Induced/Lukens Respiratory Culture - Final Presumptive C albicans 05/23/24 11:20 Urine, Clean Catch Urine Culture - Final Gram negative behzad 05/23/24 11:20 Mucosa - Nose SARS-CoV-2, Influenza & RSV (PCR) - Final D/C Instructions DC O2, CPAP, BIPAP Needs PSN CPAP & BiPAP: BiPAP & CPAP Settings per PSN Mode AVAPS 05/23/24 11:30 Bipap Delivery Device Face Mask 05/23/24 11:30 BiPAP Expiratory Pressure 10 05/23/24 11:30 BiPAP Rate 12 05/23/24 11:30 Fraction of Inspired Oxygen ( 4 05/31/24 11:24 FIO2) Home O2 Discharge instructions: No Meaningful Use Info Meaningful Use Meaningful Use Diagnoses (Choose all that apply): None applicable Ischemic Stroke Statin Dosing Therapy Reference: STATIN DOSE THERAPY REFERENCE: * Patients > 75 years receive moderate or high dose statin therapy. * Patients 75 years or YOUNGER should receive HIGH intensity statin dose unless contraindicated. You will be required to document reason for non-treatment if statin daily dose does not meet guidelines. HIGH DOSE STATIN THERAPY DAILY Atorvastatin > than or = to 40 mg Rosuvastatin > than or = to 20 mg Amlodipine + Atorvastatin > than or = to 2.5/40 mg Ezetimibe + Simvastatin 10/80 mg Simvastatin 80mg Discharge Plan Admission Admit Date/Time: 05/23/24 14:32 Primary Reason for Your Visit: Altered mentation Attending Provider: Robson George Primary Care Provider: Ingris Chu LOGGING TRACTOR OPERATOR Consulting Providers: Robson George; David Ruvalcaba; Romeo Gallardo; Geena Domingo; Mark Gonzalez Discharge Orders/Prescriptions Prescriptions: New olanzapine 10 mg Tablet 10 mg PO BID 30 Days Qty: 0 2RF lithium carbonate 300 mg Capsule 300 mg PO QHS 30 Days Qty: 0 2RF hydrochlorothiazide 25 mg Tablet 25 mg PO DAILY 30 Days Qty: 0 2RF Continued omeprazole 20 MG capsule 20 mg PO BID fluphenazine decanoate 25 MG/ML solution 25 mg IM Q14D MDD Q 2 WEEKS simvastatin [Zocor] 20 MG tablet 20 mg PO QHS montelukast 10 MG tablet 10 mg PO DAILY omega-3 fatty acids-fish oil 1 EACH capsule 2 capsule PO BID multivitamin [Daily Multi-Vitamin] Tablet 1 tab PO DAILY ammonium lactate 12 % cream 1 applic topical BID trazodone 50 mg tablet 50 mg PO QHS cholecalciferol (vitamin D3) [D3 DOTS] 50 mcg (2,000 unit) tablet 50 mcg PO QHS acetaminophen 650 mg suppository 650 mg AZ Q4H PRN (Reason: pain) acetaminophen 325 mg tablet 650 mg PO Q4H PRN (Reason: fever or pain) Biofreeze (menthol) 10 % cream 1 applic topical Q12H PRN (Reason: pain) bisacodyl 10 mg suppository 10 mg AZ DAILY PRN (Reason: CONSTIPATION) alum-mag hydroxide-simeth [Mintox Maximum Strength] 400-400-40 mg/5 mL suspension 30 ml PO Q4H PRN (Reason: indigestion) Fleet Enema 19-7 gram/118 mL enema 118 ml AZ BID PRN (Reason: constipation) melatonin 5 mg tablet 5 mg PO QHS magnesium hydroxide [Dulcolax (magnesium hydroxide)] 400 mg/5 mL suspension 30 ml PO DAILY PRN (Reason: constipation) Discontinued olanzapine 10 MG tablet 10 mg PO DAILY spironolactone 25 MG tablet 25 mg PO DAILY olanzapine [Zyprexa] 20 MG tablet 20 mg PO QHS amlodipine 5 mg tablet 5 mg PO DAILY lithium carbonate 600 mg capsule 600 mg PO QHS amoxicillin-pot clavulanate 875-125 mg tablet 1 tab PO Q12H Rx Instructions: START ON 05/14/24, TAKE FOR 10 DAYS Referrals / Follow Up: Ingris Chu LOGGING TRACTOR OPERATOR, LOGGING TRACTOR OPERATOR-C [Primary Care Provider] - Disposition Disposition (needs filled in before D/C Order can be placed): NonSkilled NH/Intermed Care Charges/Coding Visit Charges Inpatient E&M: 64405 Disch Hosp >30min 06/04/24 1222 <Electronically signed by Robson George DO> Cosigner Signature (if applicable): CC: ERNESTO-C Ingris Chu; Dr. Robson George DO~ Signed [facility] Work Phone: 1(442) 852-581704-02-2025 Discharge summary Author Robson George [facility] Note Date/Time June 04, 2024 12:2 0pm [facility] Medical Records Department [address] [place] [address] Transfer to [facility] MR#: [id number] Acct: [id number] Name: TONY ARIZA Rep #:[id number] : 1960 64 From: Robson gerardo DO PCP: MARIAN ChiC Status: ADM IN Certification of patient admission REQUIRED AT TIME OF ADMISSION. I CERTIFY THAT POST-HOSPITAL F SERVICES ARE REQUIRED TO BE GIVEN ON AN IN-PATIENT BASIS BECAUSE OF THE ABOVE NAMED PATIENT'S NEED FOR LONGTERM CARE ON A CONTINUING BASIS FOR THE CONDITION(S) FOR WHICH HE/SHE WAS RECEIVING IN-PATIENT HOSPITAL SERVICES PRIOR TO HIS/HER TRANSFER TO THE [facility]. 06/04/24 1220<Electronically signed by Robson George DO> Diet Diet Order/Speech Therapy: 05/30/24 11:02 Diet: Regular - General Food consistency:: Pureed Liquid Consistency:: Honey/Moderately Thick Diet Comments: DIRECT SUPERVISION/FEED, verbally cue for small sips Routine Orders/Code Status Routine Lab Work: BMP (recheck in 5-7 days to monitor sodium level) Code Status: Full Code DC O2, CPAP, BIPAP needs Home O2 Discharge instructions: No Wound(s) all toes: Wound Type: scattered abrasions Therapies Weight Bearing: Full weight bearing Physical Therapy: Eval and Treat Occupational Therapy: Eval and Treat Problem/Diagnosis (1) Hypernatremia: Status: Acute Code(s): E87.0 - Hyperosmolality and hypernatremia (2) NILESH (acute kidney injury): Status: Acute Code(s): N17.9 - Acute kidney failure, unspecified Plan Patient is a 64-year-old male who presented to [facility] ED on 05/23/2024 with altered mentation. Hospital course as noted below. Patient discharged to extended-care facility in stable condition on 06/04. 1. Acute respiratory failure with hypoxia and hypercapnia, resolved ? 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 followed. Multifactorial secondary to COPD exacerbation plus aspiration pneumonia plus heart failure. Required intubation on admission. Wassuccessfully extubated on 05/28. Stable on room air at this time. Completed course of Unasyn and vancomycin for pneumonia. No further treatment needed at this time. 2. Toxic metabolic encephalopathy, resolved ? Neurology followed. Suspected secondary to hypercapnia plus psychiatric condition versus psychiatric medications. Intubated on admission as noted above. [place] level was within normal limits on admit. [place] and olanzapinehave been held since admission. EEG showed severe diffuse encephalopathy, no epileptiform discharges. MRI brain was unremarkable. No further workup needed per neurology. Patient back to baseline per family at this time. However, theyhave concern for him having a psychiatric crisis since he has been off his medications, as he has required multiple inpatient psychiatric admissions in [facility]. Discussed with nephrology on 06/02 and was noted that diabetes insipidus will not worsen if patient restarts lithium. However, as patient is now on hydrochlorothiazide, restarted lithium at reduced dose of 300 mg at night and restarted olanzapine at reduced dose of 10 mg twice daily as well. Tolerating reduced doses well, will continue on discharge. 3. Nephrogenic diabetes insipidus with hypernatremia, improving ? Nephrology followed. Sodium 131 on admit. Urine output began increased afterbeing started on IV Lasix but Lasix was stopped with continued heavy urine output. Polyuric with up to 6.7 L urine output daily. Serum sodium peaked at 170. Received 2 doses of DDAVP without much improvement. Started on hydrochlorothiazide on 06/01 and D5W with steady improvement in sodium level. Off IV fluids altogether. No fluid restriction needed. Most recent sodium level 143 on 06/04, stable. Okay for discharge from nephrology standpoint. 4. Schizophrenia ? [place] level within normal limits on admit. [place] and olanzapine held on admit as patient was intubated. As noted above, restarted lithium and olanzapine at reduced doses on 06/02. 5. Hypertension, hyperlipidemia ? Held home amlodipine and spironolactone as patient was started on hydrochlorothiazide and blood pressures were normotensive; will discontinue themon discharge. Continue home statin. 6. GERD ? Continue home PPI. Total clinical time spent by myself addressing the patient's medical issues, reviewing all the data, and collaborating with patient's care team: 35 minutes. Allergies/Procedures Done in Hospital Allergies codeine Adverse Reaction (Verified 12/08/23 16:08) Upset Stomach haloperidol (From Haldol) Adverse Reaction (Verified 12/08/23 16:08) Abd cramps/diarrhea haloperidol lactate (From Haldol) Adverse Reaction (Verified 12/08/23 16:08) Abd cramps/diarrhea ziprasidone Adverse Reaction (Verified 12/08/23 16:08) Unknown Procedures: EKG, Intubation, Transthoracic Echo and - (Chest x-ray, CT brain, MRI brain, MBSS) Type of Care/Length of Stay Estimated LOS: More Than 30 Days Type of Care Needed: Intermediate Rehab Potential: Fair Prognosis: Fair Additional Orders/Day of Discharge H&P will serve as current which was dated: 05/23/24 Day of Discharge: 06/04/24 Dietary and Speech Recommendations Dietitian Recommendations/Changes: Continue Regular diet with texture/consistency per [employer] SERVICES SUPERINTENDENT to optimize oral intakes. Discharge Plan Admission Admit Date/Time: 05/23/24 14:32 Primary Reason for Your Visit: Altered mentation Attending Provider: Robson George Primary Care Provider: Ingris Chu LOGGING TRACTOR OPERATOR Consulting Providers: Robson George; David Ruvalcaba; Romeo Gallardo; Geena Domingo; Mark Gonzalez Discharge Orders/Prescriptions Prescriptions: New olanzapine 10 mg Tablet 10 mg PO BID 30 Days Qty: 0 2RF lithium carbonate 300 mg Capsule 300 mg PO QHS 30 Days Qty: 0 2RF hydrochlorothiazide 25 mg Tablet 25 mg PO DAILY 30 Days Qty: 0 2RF Continued omeprazole 20 MG capsule 20 mg PO BID fluphenazine decanoate 25 MG/ML solution 25 mg IM Q14D MDD Q 2 WEEKS simvastatin [Zocor] 20 MG tablet 20 mg PO QHS montelukast 10 MG tablet 10 mg PO DAILY omega-3 fatty acids-fish oil 1 EACH capsule 2 capsule PO BID multivitamin [Daily Multi-Vitamin] Tablet 1 tab PO DAILY ammonium lactate 12 % cream 1 applic topical BID trazodone 50 mg tablet 50 mg PO QHS cholecalciferol (vitamin D3) [D3 DOTS] 50 mcg (2,000 unit) tablet 50 mcg PO QHS acetaminophen 650 mg suppository 650 mg AZ Q4H PRN (Reason: pain) acetaminophen 325 mg tablet 650 mg PO Q4H PRN (Reason: fever or pain) Biofreeze (menthol) 10 % cream 1 applic topical Q12H PRN (Reason: pain) bisacodyl 10 mg suppository 10 mg AZ DAILY PRN (Reason: CONSTIPATION) alum-mag hydroxide-simeth [Mintox Maximum Strength] 400-400-40 mg/5 mL suspension 30 ml PO Q4H PRN (Reason: indigestion) Fleet Enema 19-7 gram/118 mL enema 118 ml AZ BID PRN (Reason: constipation) melatonin 5 mg tablet 5 mg PO QHS magnesium hydroxide [Dulcolax (magnesium hydroxide)] 400 mg/5 mL suspension 30 ml PO DAILY PRN (Reason: constipation) Discontinued olanzapine 10 MG tablet 10 mg PO DAILY spironolactone 25 MG tablet 25 mg PO DAILY olanzapine [Zyprexa] 20 MG tablet 20 mg PO QHS amlodipine 5 mg tablet 5 mg PO DAILY lithium carbonate 600 mg capsule 600 mg PO QHS amoxicillin-pot clavulanate 875-125 mg tablet 1 tab PO Q12H Rx Instructions: START ON 05/14/24, TAKE FOR 10 DAYS Referrals / Follow Up: Ingris Chu LOGGING TRACTOR OPERATOR, LOGGING TRACTOR OPERATOR-C [Primary Care Provider] - Disposition Disposition (needs filled in before D/C Order can be placed): NonSkilled NH/Intermed Care 06/04/24 1220 <Electronically signed by Robson George DO> Cosigner Signature (if applicable): CC: LOGGING TRACTOR OPERATOR-C Ingris Chu; Dr. Robson George DO; Dr. Mark Gonzalez DO; Dr. Geena Domingo MD; Dr. David Ruvalcaba MD; Dr. Romeo Gallardo MD ~ [facility] Work Phone: 1(498) 703-359004-02-2025 [facility]04-01-2025 Progress note Author Patito Steven [facility] Note Date/Time June 03, 2024 6:22 pm [facility] Medical Records Department [address] [place] [address] Progress Note - Nephrology 06/03/24 1821 MR#: [id number] Acct: [id number] Name: TONY ARIZA Rep #:[id number] : 1960 64 From: Patito morales MD PCP: MARY Chi Status: ADM IN Location: [place] [address] Subjective Subjective no new events Objective Data Objective Data Vital Signs: Vital Signs Temp Pulse Resp BP Pulse Ox O2 Del Method O2 Flow Rate 98 F 96 18 100/47 L 94 Room Air 1 06/03/24 15:41 06/03/24 15:41 06/03/24 15:41 06/03/24 15:41 06/03/24 15:41 06/03/24 15:45 06/03/24 08:15 FiO2 4 05/31/24 11:24 Oxygen Flow Rate (L/min) 1 Oxygen Delivery Method Room Air Weight: 90.6 kg Body Mass Index (BMI) 30.3 Intake & Output: Intake and Output for Last 24 Hours 06/01/24 06/02/24 06/03/24 23:59 23:59 23:59 Intake Total 3018.75 / 3018.75 2180 / 2540 2160 / 2160 Output Total 4300 / 4300 4425 / 4925 2650 / 2650 Balance -1281.25 / -1281.25 -2245 / -2385 -490 / -490 Lab / Micro Data 06/01/24 04:20 06/03/24 07:02 Labs: Laboratory Results - last 24 hr 06/03/24 07:02: Sodium 145, Potassium 4.3, Chloride 110 H, Carbon Dioxide 22.4, Anion Gap 12, BUN 28 H, Creatinine 1.72 H, Estim Creat Clear Calc 48.67 L, Est GFR (MDRD) Non-Af 44 L, BUN/Creatinine Ratio 16.5, Glucose 93, Calcium 10.4 Micro: Microbiology 05/23/24 11:00 Blood Culture (Wb) - Anticubital Right Blood Culture - Preliminary 05/23/24 11:00 Blood Culture (Wb) - Right Hand Blood Culture - Final No growth in 5 days. 05/23/24 12:20 Sputum, Induced/Lukens Gram Stain - Final 05/23/24 12:20 Sputum, Induced/Lukens Respiratory Culture - Final Presumptive C albicans 05/23/24 11:20 Urine, Clean Catch Urine Culture - Final Gram negative behzad 05/23/24 11:20 Mucosa - Nose SARS-CoV-2, Influenza & RSV (PCR) - Final Rhythm Strip Rhythm Strip: Sinus Rhythm Rate: 95 Ectopy: None Physical Exam Narrative Alert to name and place, no apparent distress, more alert today S1, S2, RRR Lung sounds clear anteriorly Abdomen soft, rounded Trace non-pitting edema bilateral lower legs with severe venous stasis dermatitis noted bilaterally Indwelling [place] with clear yellow urine in bag Assessment & Plan Assessment/Plan (1) Hypernatremia: (2) NILESH (acute kidney injury): PLAN: Plan 64-year-old male with past medical history significant for COPD, bipolar and schizophrenia who presented emergency room with complaints of shortness of breath admitted for acute hypoxic respiratory failure and now on ventilator support. Nephrology consulted in view of rising creatinine and patient with history of lithium use (home dose 600 mg daily). - NILESH on possible CKD stage IIIa: baseline creatinine has been ranging around 1.1 to 1.4 mg/dL. 12/13/2023 serum creatinine 1.33, 04/21/2024 creatinine 1.48. On admission creatinine 1.30. Serum creatinine has been stable and ranging around 1.4 to 1.6 mg/dL. Overall renal function remaining stable -Hypernatremia with polyuria; lithium induced nephrogenic DI; sodium was 131 on admission. Urine output began to increase after started on Lasix 40 mg IV twice daily and patient became polyuric with UOP 6.7L. Serum sodium peaked at 170. Patient did receive total of 2 doses DDAVP. Off Lasix. Patient was on D5W. sodium better. dw hospitalist 06/03/241821 <Electronically signed by Patito Steven MD> Cosigner Signature (if applicable): CC: ~ Signed [facility] Work Phone: 1(562) 690-379204-01-2025 Progress note Author Robson George [facility] Note Date/Time June 03, 2024 11:4 4am [facility] Medical Records Department [address] [place] [address] Progress Note - Hospitalist 06/03/24 1141 MR#: [id number] Acct: [id number] Name: TONY ARIZA Rep #:[id number] : 1960 64 From: Robson gerardo DO PCP: MARIAN ChiC Status: ADM IN Location: [place] [address] Reason for Visit Reason for Visit: Diagnoses Hyperosmolality and hypernatremia (05/23/24) Encephalopathy, unspecified (05/23/24) Metabolic encephalopathy (05/23/24) Unspecified diastolic (congestive) heart failure (05/23/24) Venous insufficiency (chronic) (peripheral) (05/23/24) Chronic obstructive pulmonary disease with (acute) exacerbation (05/23/24) Acute respiratory failure with hypoxia (05/23/24) Acute respiratory failure with hypercapnia (05/23/24) Acute kidney failure, unspecified (05/23/24) Nephrogenic diabetes insipidus (05/23/24) Subjective Subjective Saw patient at bedside this morning. Patient was sitting back comfortably in bedside chair, in no acute distress. Was answering questions with short appropriate responses for me. Appears similar today to yesterday. He denies any new pain or discomfort today. Has been eating and drinking well. No other acute concerns at this time. Objective Data Objective Data Vital Signs: Vital Signs Temp Pulse Resp BP Pulse Ox O2 Del Method O2 Flow Rate 97.9 F 81 18 115/58 L 95 Nasal Cannula 1 06/03/24 08:12 06/03/24 08:12 06/03/24 08:12 06/03/24 08:12 06/03/24 08:12 06/03/24 08:15 06/03/24 08:15 FiO2 4 05/31/24 11:24 Oxygen Flow Rate (L/min) 1 Oxygen Delivery Method Nasal Cannula Weight: 90.6 kg Body Mass Index (BMI) 30.3 Intake & Output: Intake and Output for Last 24 Hours 06/01/24 06/02/24 06/03/24 23:59 23:59 23:59 Intake Total 3018.75 / 3018.75 2180 / 2540 960 / 960 Output Total 4300 / 4300 4425 / 4925 800 / 800 Balance -1281.25 / -1281.25 -2245 / -2385 160 / 160 Lab / Micro Data 06/01/24 04:20 06/03/24 07:02 Labs: Laboratory Results - last 24 hr 06/03/24 07:02: Sodium 145, Potassium 4.3, Chloride 110 H, Carbon Dioxide 22.4, Anion Gap 12, BUN 28 H, Creatinine 1.72 H, Estim Creat Clear Calc 48.67 L, Est GFR (MDRD) Non-Af 44 L, BUN/Creatinine Ratio 16.5, Glucose 93, Calcium 10.4 Micro: Microbiology 05/23/24 11:00 Blood Culture (Wb) - Anticubital Right Blood Culture - Preliminary 05/23/24 11:00 Blood Culture (Wb) - Right Hand Blood Culture - Final No growth in 5 days. 05/23/24 12:20 Sputum, Induced/Lukens Gram Stain - Final 05/23/24 12:20 Sputum, Induced/Lukens Respiratory Culture - Final Presumptive C albicans 05/23/24 11:20 Urine, Clean Catch Urine Culture - Final Gram negative behzad 05/23/24 11:20 Mucosa - Nose SARS-CoV-2, Influenza & RSV (PCR) - Final Rhythm Strip Rhythm Strip: Sinus Rhythm Rate: 95 Ectopy: None Physical Exam Const alert, oriented x3, no apparent distress and average body habitus Constitutional Narrative: Upper middle-aged male, somewhat chronically ill-appearing, good energy level, sitting up comfortably in bedside chair, answering questions appropriately with some tangential speech, in no acute distress. General Appearance: cooperative and comfortable HEENT normocephalic, head/scalp atraumatic, hearing grossly normal bilaterally, nasal mucous membranes and turbinates normal and moist oral mucous membranes Eyes PERRL, EOMs intact bilaterally and conjunctivae normal Neck full ROM Chest inspection of chest normal Resp normal respiratory effort, normal air movement, no use of accessory muscles and clear to auscultation bilaterally Cardio regular rate, regular rhythm, no murmurs and peripheral pulses 2+ throughout GI normal to inspection, nondistended, normoactive bowel sounds, soft to palpation,non-tender and non-distended Back/Spine normal ROM Extremity normal to inspection, full ROM and no pedal edema Skin no rashes or lesions noted Psych mental status grossly normal Assessment & Plan Assessment/Plan (1) Encephalopathy acute: (2) Nephrogenic diabetes insipidus: PLAN: Plan Patient is a 64-year-old male who presented to [facility] ED on 05/23/2024 with altered mentation. 1. Acute respiratory failure with hypoxia and hypercapnia, resolved ? 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 followed. Multifactorial secondary to COPD exacerbation plus aspiration pneumonia plus heart failure. Required intubation on admission. Wassuccessfully extubated on 05/28. Stable on room air at this time. Completed course of Unasyn and vancomycin for pneumonia. No further treatment needed at this time. 2. Toxic metabolic encephalopathy, resolved ? Neurology followed. Suspected secondary to hypercapnia plus psychiatric condition versus psychiatric medications. Intubated on admission as noted above. [place] level was within normal limits on admit. [place] and olanzapinehave been held since admission. EEG showed severe diffuse encephalopathy, no epileptiform discharges. MRI brain was unremarkable. No further workup needed per neurology. Patient back to baseline per family at this time. However, theyhave concern for him having a psychiatric crisis since he has been off his medications, as he has required multiple inpatient psychiatric admissions in [facility]. Discussed with nephrology on 06/02 and was noted that diabetes insipidus will not worsen if patient restarts lithium. However, as patient is now on hydrochlorothiazide, restarted lithium at reduced dose of 300 mg at night and restarted olanzapine at reduced dose of 10 mg twice daily as well. Tolerating reduced dose as well, continue to monitor. 3. Nephrogenic diabetes insipidus with hypernatremia, improving ? Nephrology following. Sodium 131 on admit. Urine output began increased after being started on IV Lasix but Lasix was stopped with continued heavy urineoutput. Polyuric with up to 6.7 L urine output daily. Serum sodium peaked at 170. Received 2 doses of DDAVP without much improvement. Started on hydrochlorothiazide on 06/01 and D5W with steady improvement in sodium level. Off IV fluids altogether. No fluid restriction needed. Most recent sodium level 145 on 06/03, stable from previous day. Okay for discharge from nephrology standpoint. 4. Schizophrenia ? [place] level within normal limits on admit. [place] and olanzapine held on admit as patient was intubated. As noted above, restarted lithium and olanzapine at reduced doses on 06/02. Monitor. 5. Hypertension, hyperlipidemia ? Will hold home amlodipine and spironolactone as patient has been started on hydrochlorothiazide and blood pressures have been normotensive. Continue home statin. 6. GERD ? Continue home PPI. DVT prophylaxis: Lovenox CODE STATUS: Full code, unverified Expected disposition: SNF, medically ready on 06/02, awaiting placement Total clinical time spent by myself addressing the patient's medical issues, reviewing all the data, and collaborating with patient's care team: 35 minutes. Charges/Coding Visit Charges Inpatient E&M: 19566 Subs Hosp L2 06/03/24 1144 <Electronically signed by Robson George DO> Cosigner Signature (if applicable): CC: ~ Signed [facility] Work Phone: 1(136) 273-192403-31-2025 Progress note Author Robson George [facility] Note Date/Time June 02, 2024 5:0 8pm [facility] Medical Records Department [address] [place], [place] [address] [address] Progress Note - Hospitalist 06/02/24 1213 MR#: [id number] Acct: [id number] Name: TONY ARIZA Gabby Rep #:[id number] : 1960 64 From: Robson gerardo DO PCP: MARY Chi Status: ADM IN Location: [place] [id number] Reason for Visit Reason for Visit: Diagnoses Hyperosmolality and hypernatremia (05/23/24) Metabolic encephalopathy (05/23/24) Unspecified diastolic (congestive) heart failure (05/23/24) Venous insufficiency (chronic) (peripheral) (05/23/24) Chronic obstructive pulmonary disease with (acute) exacerbation (05/23/24) Acute respiratory failure with hypoxia (05/23/24) Acute respiratory failure with hypercapnia (05/23/24) Acute kidney failure, unspecified (05/23/24) Subjective Subjective Saw patient at bedside this morning. Patient was sitting up comfortably in bedside chair and in no acute distress. He was answering most questions appropriately, did have some tangential speech but appears this may be his baseline. His son and [id number]-uro were present and noted that he does appear continually improved on a daily basis. Patient denies any pain or discomfort today. He is hoping to be discharged from the hospital soon. No other new concerns at this time. Objective Data Objective Data Vital Signs: Vital Signs Temp Pulse Resp BP Pulse Ox O2 Del Method O2 Flow Rate 98.3 F 84 20 H 111/74 94 Nasal Cannula 2 06/02/24 10:20 06/02/24 10:20 06/02/24 10:20 06/02/24 10:20 06/02/24 10:20 06/02/24 10:20 06/02/24 10:20 FiO2 4 05/31/24 11:24 Oxygen Flow Rate (L/min) 2 Oxygen Delivery Method Nasal Cannula Weight: 90.4 kg Body Mass Index (BMI) 30.3 Intake & Output: Intake and Output for Last 24 Hours 05/31/24 06/01/24 06/02/24 23:59 23:59 23:59 Intake Total 3746.25 / 3746.25 3018.75 / 3018.75 550 / 550 Output Total 5000 / 5000 4300 / 4300 2150 / 2150 Balance -1253.75 / -1253.75 -1281.25 / -1281.25 -1600 / -1600 Lab / Micro Data 06/01/24 04:20 06/02/24 06:20 Labs: Laboratory Results - last 24 hr 06/02/24 06:20: Sodium 145, Potassium 4.4, Chloride 115 H, Carbon Dioxide 17.8 L, Anion Gap 12, BUN 26 H, Creatinine 1.66 H, Estim Creat Clear Calc 50.38, Est GFR (MDRD) Non-Af 46 L, BUN/Creatinine Ratio 15.8, Glucose 102 H, Calcium 9.6 Micro: Microbiology 05/23/24 11:00 Blood Culture (Wb) - Anticubital Right Blood Culture - Preliminary 05/23/24 11:00 Blood Culture (Wb) - Right Hand Blood Culture - Final No growth in 5 days. 05/23/24 12:20 Sputum, Induced/Lukens Gram Stain - Final 05/23/24 12:20 Sputum, Induced/Lukens Respiratory Culture - Final Presumptive C albicans 05/23/24 11:20 Urine, Clean Catch Urine Culture - Final Gram negative behzad 05/23/24 11:20 Mucosa - Nose SARS-CoV-2, Influenza & RSV (PCR) - Final Rhythm Strip Rhythm Strip: Sinus Rhythm Rate: 95 Ectopy: None Physical Exam Const alert, oriented x3, no apparent distress and average body habitus Constitutional Narrative: Upper middle-aged male, mildly fatigued and somewhat chronically ill-appearing, otherwise sitting up comfortably in bedside chair, answering questions appropriately with some tangential speech, in no acute distress. General Appearance: cooperative and comfortable HEENT normocephalic, head/scalp atraumatic, hearing grossly normal bilaterally, nasal mucous membranes and turbinates normal and moist oral mucous membranes Eyes PERRL, EOMs intact bilaterally and conjunctivae normal Neck full ROM Chest inspection of chest normal Resp normal respiratory effort, normal air movement, no use of accessory muscles and clear to auscultation bilaterally Cardio regular rate, regular rhythm, no murmurs and peripheral pulses 2+ throughout GI normal to inspection, nondistended, normoactive bowel sounds, soft to palpation,non-tender and non-distended Back/Spine normal ROM Extremity normal to inspection, full ROM and no pedal edema Skin no rashes or lesions noted Psych mental status grossly normal Assessment & Plan Assessment/Plan (1) Encephalopathy acute: (2) Nephrogenic diabetes insipidus: PLAN: Plan Patient is a 64-year-old male who presented to [facility] ED on 05/23/2024 with altered mentation. 1. Acute respiratory failure with hypoxia and hypercapnia, resolved ? 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 followed. Multifactorial secondary to COPD exacerbation plus aspiration pneumonia plus heart failure. Required intubation on admission. Wassuccessfully extubated on 05/28. Stable on room air at this time. Completed course of Unasyn and vancomycin for pneumonia. No further treatment needed at this time. 2. Toxic metabolic encephalopathy, resolved ? Neurology followed. Suspected secondary to hypercapnia plus psychiatric condition versus psychiatric medications. Intubated on admission as noted above. [place] level was within normal limits on admit. [place] and olanzapinehave been held since admission. EEG showed severe diffuse encephalopathy, no epileptiform discharges. MRI brain was unremarkable. No further workup needed per neurology. Patient back to baseline per family at this time. However, theyhave concern for him having a psychiatric crisis since he has been off his medications, as [facility] [place] [facility] Discussed with nephrology on 06/02 and was noted that diabetes insipidus will not worsen if patient restarts lithium. However, as patient is now on hydrochlorothiazide, will start lithium at reduced dose of 300 mg at night. Will restart olanzapine at reduced dose of 10 mg twice daily as well. Monitor closely. 3. Nephrogenic diabetes insipidus with hypernatremia, improving ? Nephrology following. Sodium 131 on admit. Urine output began increased after being started on IV Lasix but Lasix was stopped with continued heavy urineoutput. Polyuric with up to 6.7 L urine output daily. Serum sodium peaked at 170. Received 2 doses of DDAVP without much improvement. Started on hydrochlorothiazide on 06/01 and D5W with steady improvement in sodium level. Most recent sodium 145 on 06/02. Off IV fluids altogether. No fluid restrictionneeded. Follow-up a.m. sodium level and continue strict I's and O's. 4. Schizophrenia ? [place] level within normal limits on admit. [place] and olanzapine held on admit as patient was intubated. As noted above, will restart lithium and olanzapine at reduced doses on 06/02. Monitor. 5. Hypertension, hyperlipidemia ? Will hold home amlodipine and spironolactone as patient has been started on hydrochlorothiazide and blood pressures have been normotensive. Continue home statin. 6. GERD ? Continue home PPI. DVT prophylaxis: Lovenox CODE STATUS: Full code, unverified Expected disposition: SNF, medically ready on 06/02, awaiting placement Total clinical time spent by myself addressing the patient's medical issues, reviewing all the data, and collaborating with patient's care team: 35 minutes. Charges/Coding Visit Charges Inpatient E&M: 89915 Subs Hosp L2 06/02/24 4905 <Electronically signed by Robson Mosteller DO> Cosigner Signature (if applicable): CC: ~ Signed [facility] Work Phone: [phone]) [phone] Progress note Author Soraida Elam [facility] Note Date/Time June 02, 2024 3:0 5pm [facility] Medical Records Department [address] [place] [address] Progress Note - Nephrology 06/02/24 1204 MR#: [id number] Acct: [id number] Name: TONY ARIZA Rep #:[id number] : 1960 64 From: Soraida HERNANDEZ PCP: MARY Chi Status: ADM IN Location: [place] [address] Documented by User: MARY Warren 06/02/24 12:30 Subjective Subjective Sitting in chair. Clinically looking better. No overnight events. States thathe is thirsty. Objective Data Objective Data Vital Signs: Vital Signs Temp Pulse Resp BP Pulse Ox O2 Del Method O2 Flow Rate 98.3 F 84 20 H 111/74 94 Nasal Cannula 2 06/02/24 10:20 06/02/24 10:20 06/02/24 10:20 06/02/24 10:20 06/02/24 10:20 06/02/24 10:20 06/02/24 10:20 FiO2 4 05/31/24 11:24 Oxygen Flow Rate (L/min) 2 Oxygen Delivery Method Nasal Cannula Weight: 90.4 kg Body Mass Index (BMI) 30.3 Intake & Output: Intake and Output for Last 24 Hours 05/31/24 06/01/24 06/02/24 23:59 23:59 23:59 Intake Total 3746.25 / 3746.25 3018.75 / 3018.75 550 / 550 Output Total 5000 / 5000 4300 / 4300 2150 / 2150 Balance -1253.75 / -1253.75 -1281.25 / -1281.25 -1600 / -1600 Lab / Micro Data 06/01/24 04:20 06/02/24 06:20 Labs: Laboratory Results - last 24 hr 06/02/24 06:20: Sodium 145, Potassium 4.4, Chloride 115 H, Carbon Dioxide 17.8 L, Anion Gap 12, BUN 26 H, Creatinine 1.66 H, Estim Creat Clear Calc 50.38, Est GFR (MDRD) Non-Af 46 L, BUN/Creatinine Ratio 15.8, Glucose 102 H, Calcium 9.6 Micro: Microbiology 05/23/24 11:00 Blood Culture (Wb) - Anticubital Right Blood Culture - Preliminary 05/23/24 11:00 Blood Culture (Wb) - Right Hand Blood Culture - Final No growth in 5 days. 05/23/24 12:20 Sputum, Induced/Lukens Gram Stain - Final 05/23/24 12:20 Sputum, Induced/Lukens Respiratory Culture - Final Presumptive C albicans 05/23/24 11:20 Urine, Clean Catch Urine Culture - Final Gram negative behzad 05/23/24 11:20 Mucosa - Nose SARS-CoV-2, Influenza & RSV (PCR) - Final Rhythm Strip Rhythm Strip: Sinus Rhythm Rate: 95 Ectopy: None Physical Exam Narrative Alert to name and place, no apparent distress, more alert today S1, S2, RRR Lung sounds clear anteriorly Abdomen soft, rounded Trace non-pitting edema bilateral lower legs with severe venous stasis dermatitis noted bilaterally Indwelling Greer with clear yellow urine in bag Assessment & Plan Assessment/Plan (1) Hypernatremia: (2) NILESH (acute kidney injury): PLAN: Plan 64-year-old male with past medical history significant for COPD, bipolar and schizophrenia who presented emergency room with complaints of shortness of breath admitted for acute hypoxic respiratory failure and now on ventilator support. Nephrology consulted in view of rising creatinine and patient with history of lithium use (home dose 600 mg daily). - NILESH on possible CKD stage IIIa: baseline creatinine has been ranging around 1.1 to 1.4 mg/dL. 12/13/2023 serum creatinine 1.33, 04/21/2024 creatinine 1.48. On admission creatinine 1.30. Serum creatinine has been stable and ranging around 1.4 to 1.6 mg/dL. Overall renal function remaining stable. Serum bicarband potassium normal. [place] level on admission normal at 1.01. Has greer. 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 -Hypernatremia with polyuria; lithium induced nephrogenic DI; sodium was 131 on admission. Urine output began to increase after started on Lasix 40 mg IV twice daily and patient became polyuric with UOP 6.7L. Serum sodium peaked at 170. Patient did receive total of 2 doses DDAVP. Off Lasix. Patient was on D5W. Sodium slowly improving daily. Today serum sodium is at 145, now off IV fluids altogether. Does not need any further DDAVP. He is on hydrochlorothiazide. Patient is on supervised diet with thickened liquids. He does not need to restrict any fluids. BMP ordered for am. Continue strict I&O. Assessment and plan reviewed with Dr. Steven. Documented by User: Dr. Patito Steven MD 06/02/24 15:05 Objective Data Lab / Micro Data 06/01/24 04:20 06/02/24 06:20 Assessment & Plan Assessment/Plan (1) Hypernatremia: (2) NILESH (acute kidney injury): PLAN: Plan 64-year-old male with past medical history significant for COPD, bipolar and schizophrenia who presented emergency room with complaints of shortness of breath admitted for acute hypoxic respiratory failure and now on ventilator support. Nephrology consulted in view of rising creatinine and patient with history of lithium use (home dose 600 mg daily). - NILESH on possible CKD stage IIIa: baseline creatinine has been ranging around 1.1 to 1.4 mg/dL. 12/13/2023 serum creatinine 1.33, 04/21/2024 creatinine 1.48. On admission creatinine 1.30. Serum creatinine has been stable and ranging around 1.4 to 1.6 mg/dL. Overall renal function remaining stable. Serum bicarband potassium normal. [place] level on admission normal at 1.01. Has greer. 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 -Hypernatremia with polyuria; lithium induced nephrogenic DI; sodium was 131 on admission. Urine output began to increase after started on Lasix 40 mg IV twice daily and patient became polyuric with UOP 6.7L. Serum sodium peaked at 170. Patient did receive total of 2 doses DDAVP. Off Lasix. Patient was on D5W. Sodium slowly improving daily. Today serum sodium is at 145, now off IV fluids altogether. Does not need any further DDAVP. He is on hydrochlorothiazide. Patient is on supervised diet with thickened liquids. He does not need to restrict any fluids. BMP ordered for am. Continue strict I&O. Assessment and plan reviewed with Dr. Steven. Addendum Cr stable. Sodium better Li use for many years. Li has been stopped. 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 without psychiatry input I am not comfortable stopping Li. dw Dr Collins. NDI is not a reversible condition so it will not serve any benefit from NDI standpoint to stop Li. resumption of Li as per primary. ok to make dc plans. let patient drink as needed. 06/02/24 1230 <Electronically signed by Soraida HERNANDEZ> Cosigner Signature (if applicable): 06/02/24 1505 <Electronically signed by Patito Steven MD> CC: ~ Signed [facility] Work Phone: [phone] Consult note Author Regi Read [facility] Note Date/Time June 02, 2024 1:3 9pm [facility] Medical Records Department [address] [place] [address] Pharmacokinetic/Renal -Consult 05/27/24 1855 MR#: [id number] Acct: [id number] Name: TONY ARIZA Rep #:[id number] : 1960 64 From: Regi Read PCP: MARY Chi Status: ADM IN Location: [place] [address] Consult Antibiotic Management Pharmacy has been consulted to manage selected antibiotic: Vancomycin Type of Intervention Type of Consult: Follow-up Suspected Infection Suspected Infection: Other (Respiratory Failure) Prior Doses of Antibiotics Prior Doses of Antibiotics Received/Current Regimen: *3 doses Labs Labs: Sodium 151 mmol/L (133-145) H 05/27/24 05:30 Potassium 4.5 mmol/L (3.3-5.1) 05/27/24 05:30 Chloride 118 mmol/L (98-108) H 05/27/24 05:30 Carbon Dioxide 26.0 mmol/L (21.0-32.0) 05/27/24 05:30 Anion Gap 7 (5-15) 05/27/24 05:30 BUN 38 mg/dL (4-19) H 05/27/24 05:30 Creatinine 1.53 mg/dL (0.70-1.20) H 05/27/24 05:30 Est GFR (MDRD) Non-Af 51 (>60) L 05/27/24 05:30 BUN/Creatinine Ratio 24.5 RATIO (10-20) H 05/27/24 05:30 Glucose 105 mg/dL (70-99) H 05/27/24 05:30 Vancomycin Trough 26.3 ug/mL (5.0-15.0) H 05/27/24 17:32 Random Vancomycin 13.8 ug/mL (0.0-15.0) 05/26/24 03:30 Microbiology Microbiology: Microbiology 05/23/24 11:00 Blood Culture (Wb) - Right Hand Blood Culture - Preliminary No growth in 48 hours. 05/23/24 11:00 Blood Culture (Wb) - Anticubital Right Blood Culture - Preliminary 05/23/24 12:20 Sputum, Induced/Lukens Gram Stain - Final 05/23/24 12:20 Sputum, Induced/Lukens Respiratory Culture - Final Presumptive C albicans 05/23/24 11:20 Urine, Clean Catch Urine Culture - Final Gram negative behzad 05/23/24 11:20 Mucosa - Nose SARS-CoV-2, Influenza & RSV (PCR) - Final Dosing Weight Weight used for dosin.7 kg Goal Trough Goal Trough: 15-20 mcg/mL Pharmacy Plan for Drug Dosing Pharmacy Plan for Drug Dosing: VANCOMYCIN LEVEL RECEIVED Current Vancomycin Dose: 1000 MG Q12H Number of Doses Received: 3 Vancomycin Level: 26.4 Hours Since Last Dose: 11.5 Renal Function: SCr : 1.53 (Increase), CrCl 60.78 (Decrease) Renal Function Trend: Down trending Lab/Micro: Pharmacy Service will continue to monitor and adjust dosing as required: trough at 26.4 is supratherapeutic; planning on holding the dose, redraw a random vancomycin level in 12 hours and determine course of plan. Pending Level: 05/28/2024 @ 0530 Date/Time Labs Ordered Labs to be done on [date and time ordered]: Random level 05/28/2024 @0530 05/27/24 1857 <Electronically signed by Regi Pemberton ey> Date _ Regi Read 06/02/24 1339 <Electronically signed by Robson sanon DO> Cosigner Signature (if applicable): Date Robson George DO CC: ~ Signed [facility] Work Phone: [phone]) 106-288303-30-2025 Progress note Author Mark Gonzalez [facility] Note Date/Time June 01, 2024 2:0 4pm [facility] Medical Records Department [address] [place] [address] Progress Note - Hospitalist 06/01/24 0756 MR#: [id number] Acct: [id number] Name: TONY ARIZA Gabby Rep #:[id number] : 1960 64 From: Mark Gonzalez DO PCP: MARIAN ChiC Status: ADM IN Location: [place] [address] Reason for Visit Reason for Visit: Diagnoses Hyperosmolality and hypernatremia (05/23/24) Metabolic encephalopathy (05/23/24) Unspecified diastolic (congestive) heart failure (05/23/24) Venous insufficiency (chronic) (peripheral) (05/23/24) Chronic obstructive pulmonary disease with (acute) exacerbation (05/23/24) Acute respiratory failure with hypoxia (05/23/24) Acute respiratory failure with hypercapnia (05/23/24) Acute kidney failure, unspecified (05/23/24) Subjective Subjective Feeling well. Objective Data Objective Data Vital Signs: Vital Signs Temp Pulse Resp BP Pulse Ox O2 Del Method O2 Flow Rate 36.4 C L 72 30 H 110/64 97 Nasal Cannula 2 05/31/24 22:47 06/01/24 07:22 06/01/24 07:22 05/31/24 22:47 06/01/24 07:22 06/01/24 07:22 06/01/24 07:22 FiO2 4 05/31/24 11:24 Oxygen Flow Rate (L/min) 2 Oxygen Delivery Method Nasal Cannula Weight: 89 kg Body Mass Index (BMI) 29.8 Intake & Output: Intake and Output for Last 24 Hours 05/30/24 05/31/24 06/01/24 23:59 23:59 23:59 Intake Total 3807 / 3807 3746.25 / 3746.25 Output Total 4050 / 4050 5000 / 5000 Balance -243 / -243 -1253.75 / -1253.75 Lab / Micro Data 06/01/24 04:20 06/01/24 04:20 Labs: Laboratory Results - last 24 hr 06/01/24 04:20: WBC 8.8, RBC 4.22 L, Hgb 13.8, Hct 46.4, MCV 110.0 H, MCH 32.7 H, MCHC 29.7 L, RDW Std Deviation 69.6 H, RDW Coeff of Babatunde 17.0 H, Plt Count 145 L, MPV 10.9, Immature Gran % (Auto) 0.700, Neut % (Auto) 79.0 H, Lymph % (Auto) 10.1 L, Gove % (Auto) 5.2, Eos % (Auto) 4.8, Baso % (Auto) 0.2, Absolute Neuts (auto) 7.0, Absolute Lymphs (auto) 0.89, Nucleated RBC % 0 Micro: Microbiology 05/23/24 11:00 Blood Culture (Wb) - Anticubital Right Blood Culture - Preliminary 05/23/24 11:00 Blood Culture (Wb) - Right Hand Blood Culture - Final No growth in 5 days. 05/23/24 12:20 Sputum, Induced/Lukens Gram Stain - Final 05/23/24 12:20 Sputum, Induced/Lukens Respiratory Culture - Final Presumptive C albicans 05/23/24 11:20 Urine, Clean Catch Urine Culture - Final Gram negative behzad 05/23/24 11:20 Mucosa - Nose SARS-CoV-2, Influenza & RSV (PCR) - Final Rhythm Strip Rhythm Strip: Sinus Rhythm Rate: 95 Ectopy: None Physical Exam Const alert and no apparent distress Constitutional Narrative: up in chair. no respiratory distress. no conversational dyspnea. HEENT head/scalp atraumatic and moist oral mucous membranes Resp normal respiratory effort and no retractions Cardio regular rate and regular rhythm Neuro Sensorium / Orientation: awake Assessment & Plan Assessment/Plan (1) Acute respiratory failure with hypoxia and hypercapnia: PLAN: Extubated 05/28 2/2 COPD exacerbation + CHF + pneumonia (aspiration) amp/SB and vancomycin completed for pneumonia (2) Metabolic encephalopathy: PLAN: Toxic metabolic encephalopathy 2/2 CO2 narcosis plus underlying psychiatric history. Plus, psychiatric medications. [place] level WNL on admission. Given concern for DI, it has been discontinued. Will dc olanzapine, though it is unclear if he is actually experiencing extrapyramidal symptoms, somnolence from it; until further clarification of his mental status changes, will discontinue for now. EEG showed severe diffuse encephalopathy. No epileptiform discharges. MRI brain showed no acute abnormality. Mild patchy deep white matter signal alterations. No additional work up per neurology. (3) Hypernatremia: PLAN: Improving. 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 Received DDAVP 2mg on 05/28 and 05/29. But did not provide much improvement. Still on D5W. Ideally, patient will need to increase his overall intake to stabilize his sodium. DW Dr. Gamez, recommending HCTZ 25mg/d, which was started 06/01. PLAN: Plan Chronic conditions: * Venous stasis dermatitis * schizophrenia: Zyprexa and lithium held. * obesity class I * COPD: stable. VTE prophylaxis: enoxaparin. Disposition: to [facility] when medically stable. Charges/Coding Visit Charges Inpatient E&M: 30324 Subs Hosp L2 06/01/24 8140 <Electronically signed by Mark Gonzalez DO> Cosigner Signature (if applicable): CC: ~ Signed [facility] Work Phone: [phone] Progress note Author Mark Gonzalez [facility] Note Date/Time May 31, 2024 12: 33pm [facility] Medical Records Department [address] [address] Progress Note - Hospitalist 05/31/24 0743 MR#: [id number] Acct: [id number] Name: TONY ARIZA Rep #:[id number] : 1960 64 From: Mark Gonzalez DO PCP: 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 Objective Data Objective Data Vital Signs: Vital Signs Temp Pulse Resp BP Pulse Ox O2 Del Method O2 Flow Rate 36.4 C L 77 24 H 123/68 H 95 Nasal Cannula 4 05/31/24 06:00 05/31/24 06:00 05/31/24 06:00 05/31/24 06:00 05/31/24 06:00 05/31/24 06:00 05/31/24 06:00 FiO2 30 05/28/24 08:00 Oxygen Flow Rate (L/min) 4 Oxygen Delivery Method Nasal Cannula Weight: 89 kg Body Mass Index (BMI) 29.8 Intake & Output: Intake and Output for Last 24 Hours 05/29/24 05/30/24 05/31/24 23:59 23:59 23:59 Intake Total 4406 / 4646 3807 / 3807 1000 / 1000 Output Total 3550 / 4550 4050 / 4050 2200 / 2200 Balance 856 / 96 -243 / -243 -1200 / -1200 Lab / Micro Data 05/30/24 07:50 05/31/24 06:03 Labs: Laboratory Results - last 24 hr 05/30/24 07:50: WBC 10.3, RBC 4.38 L, Hgb 14.3, Hct 47.8, MCV 109.1 H, MCH 32.6 H, MCHC 29.9 L, RDW Std Deviation 73.5 H, RDW Coeff of Babatunde 18.0 H, Plt Count 135L, MPV 10.4, Immature Gran % (Auto) 0.400, Neut % (Auto) 84.0 H, Lymph % (Auto) 8.0 L, Gove % (Auto) 4.8, Eos % (Auto) 2.5, Baso % (Auto) 0.3, Absolute Neuts (auto) 8.7 H, Absolute Lymphs (auto) 0.83, Nucleated RBC % 0, Platelet Estimate SLT DEC, Anisocytosis 1+, Sodium 153 H, Potassium 4.7, Chloride 121 H, Carbon Dioxide 22.9, Anion Gap 9, BUN 32 H, Creatinine 1.56 H, Estim Creat Clear Calc 57.83, Est GFR (MDRD) Non-Af 50 L, BUN/Creatinine Ratio 20.3 H, Glucose 128 H, Calcium 9.1, Vancomycin Trough 12.2 05/30/24 12:01: Sodium 152 H, Potassium 4.3, Chloride 122 H, Carbon Dioxide 21.0, Anion Gap 10, BUN 30 H, Creatinine 1.49 H, Estim Creat Clear Calc 60.55, Est GFR (MDRD) Non-Af 53 L, BUN/Creatinine Ratio 20.2 H, Glucose 177 H, Calcium 9.0 05/30/24 18:50: Urine Osmolality 216 Micro: Microbiology 05/23/24 11:00 Blood Culture (Wb) - Anticubital Right Blood Culture - Preliminary 05/23/24 11:00 Blood Culture (Wb) - Right Hand Blood Culture - Final No growth in 5 days. 05/23/24 12:20 Sputum, Induced/Lukens Gram Stain - Final 05/23/24 12:20 Sputum, Induced/Lukens Respiratory Culture - Final Presumptive C albicans 05/23/24 11:20 Urine, Clean Catch Urine Culture - Final Gram negative behzad 05/23/24 11:20 Mucosa - Nose SARS-CoV-2, Influenza & RSV (PCR) - Final Rhythm Strip Rhythm Strip: Sinus Rhythm Rate: 95 Ectopy: None Physical Exam Const alert and no apparent distress Constitutional Narrative: up in chair. no respiratory distress. no conversational dyspnea. Resp normal respiratory effort and no retractions Neuro Sensorium / Orientation: awake and alert Psych affect normal Assessment & Plan Assessment/Plan (1) Acute respiratory failure with hypoxia and hypercapnia: PLAN: Extubated 05/28 2/2 COPD exacerbation + CHF + pneumonia (aspiration) amp/SB and vancomycin completed for pneumonia (2) COPD with acute exacerbation: PLAN: BDs and methylprednisolone (3) Metabolic encephalopathy: PLAN: Toxic metabolic encephalopathy 2/2 CO2 narcosis plus underlying psychiatric history. Plus, psychiatric medications. [place] level WNL on admission. Given concern for DI, it has been discontinued. Will dc olanzapine, though it is unclear if he is actually experiencing extrapyramidal symptoms, somnolence from it; until further clarification of his mental status changes, will discontinue for now. EEG showed severe diffuse encephalopathy. No epileptiform discharges. MRI brain showed no acute abnormality. Mild patchy deep white matter signal alterations. No additional work up per neurology. (4) Hypernatremia: PLAN: Improving. 2/2 diabetes insipidus. Received DDAVP 2mg on 05/28 and 05/29. Still on D5W. Ideally, patient will need to increase his overall intake to stabilize his sodium. (5) (HFpEF) heart failure with preserved ejection fraction: PLAN: acute. Likely due to IVF for hypernatremia. started furosemide 05/26, discontinued 05/27. PLAN: Plan Chronic conditions: * Venous stasis dermatitis * schizophrenia: Zyprexa and lithium held. * obesity class I VTE prophylaxis: enoxaparin. Disposition: to [facility] when medically stable. Charges/Coding Visit Charges Inpatient E&M: 69322 Subs Hosp L2 05/31/24 1233 <Electronically signed by Mark Gonzalez DO> Cosigner Signature (if applicable): CC: ~ Signed [facility] Work Phone: [phone]) 535-666903-28-2025 Progress note Author Mark Gonzalez [facility] Note Date/Time May 30, 2024 11: 29am [facility] Medical Records Department [address] [place] [address] Progress Note - Hospitalist 05/30/24 0654 MR#: [id number] Acct: [id number] Name: TOTONY Rep #:[id number] : 1960 64 From: Mark Gonzalez DO PCP: MARY Chi Status: ADM IN Location: [place] [address] Reason for Visit Reason for Visit: Diagnoses Hyperosmolality and hypernatremia (05/23/24) Metabolic encephalopathy (05/23/24) Unspecified diastolic (congestive) heart failure (05/23/24) Venous insufficiency (chronic) (peripheral) (05/23/24) Chronic obstructive pulmonary disease with (acute) exacerbation (05/23/24) Acute respiratory failure with hypoxia (05/23/24) Acute respiratory failure with hypercapnia (05/23/24) Acute kidney failure, unspecified (05/23/24) Subjective Subjective Breathing ok. Objective Data Objective Data Vital Signs: Vital Signs Temp Pulse Resp BP Pulse Ox O2 Del Method O2 Flow Rate 36.3 C L 85 25 H 126/60 H 95 Nasal Cannula 2 05/30/24 06:09 05/30/24 06:09 05/30/24 06:09 05/30/24 06:09 05/30/24 06:09 05/30/24 06:09 05/30/24 06:09 FiO2 30 05/28/24 08:00 Oxygen Flow Rate (L/min) 2 Oxygen Delivery Method Nasal Cannula Weight: 105.6 kg Body Mass Index (BMI) 35.4 Intake & Output: Intake and Output for Last 24 Hours 05/28/24 05/29/24 05/30/24 23:59 23:59 23:59 Intake Total 3245.36 / 3245.36 4406 / 4646 1951 / 1951 Output Total 6525 / 7125 3550 / 4550 1850 / 1850 Balance -3279.64 / -3879.64 856 / 96 102 / 102 Lab / Micro Data 05/30/24 07:50 05/30/24 07:50 Labs: Laboratory Results - last 24 hr 05/29/24 11:40: Sodium 168 H*, Potassium 4.6, Chloride 132 H*, Carbon Dioxide 13.9 L, Anion Gap 22 H, BUN 35 H, Creatinine 1.56 H, Estim Creat Clear Calc 57.78, Est GFR (MDRD) Non-Af 50 L, BUN/Creatinine Ratio 22.7 H, Glucose 134 H, Calcium 7.7 05/29/24 13:55: Urine Osmolality 332 05/29/24 21:08: Sodium 162 H*, Potassium 4.5, Chloride 126 H, Carbon Dioxide 20.2 L, Anion Gap 15, BUN 30 H, Creatinine 1.56 H, Estim Creat Clear Calc 57.78,Est GFR (MDRD) Non-Af 50 L, BUN/Creatinine Ratio 19.4, Glucose 99, Calcium 8.9 05/30/24 00:16: Sodium 160 H, Potassium 4.5, Chloride 126 H, Carbon Dioxide 21.5, Anion Gap 13, BUN 30 H, Creatinine 1.57 H, Estim Creat Clear Calc 57.41, Est GFR (MDRD) Non-Af 50 L, BUN/Creatinine Ratio 19.0, Glucose 108 H, Calcium 8.7 Micro: Microbiology 05/23/24 11:00 Blood Culture (Wb) - Anticubital Right Blood Culture - Preliminary 05/23/24 11:00 Blood Culture (Wb) - Right Hand Blood Culture - Final No growth in 5 days. 05/23/24 12:20 Sputum, Induced/Lukens Gram Stain - Final 05/23/24 12:20 Sputum, Induced/Lukens Respiratory Culture - Final Presumptive C albicans 05/23/24 11:20 Urine, Clean Catch Urine Culture - Final Gram negative behzad 05/23/24 11:20 Mucosa - Nose SARS-CoV-2, Influenza & RSV (PCR) - Final Rhythm Strip Rhythm Strip: Sinus Rhythm Rate: 95 Ectopy: None Physical Exam Const alert and no apparent distress HEENT head/scalp atraumatic and moist oral mucous membranes Resp normal respiratory effort, no retractions and no use of accessory muscles Cardio regular rate, regular rhythm and S1 normal heart sound GI normal to inspection, nondistended, normoactive bowel sounds, soft to palpation,non-tender and non-distended Extremity normal to inspection, full ROM and no clubbing, cyanosis or edema Neuro Sensorium / Orientation: awake and alert Assessment & Plan Assessment/Plan (1) Acute respiratory failure with hypoxia and hypercapnia: PLAN: Extubated 05/28 2/2 COPD exacerbation + CHF + pneumonia (aspiration) amp/SB and vancomycin (2) COPD with acute exacerbation: PLAN: BDs and methylprednisolone (3) Metabolic encephalopathy: PLAN: Toxic metabolic encephalopathy 2/2 CO2 narcosis plus underlying psychiatric history. Plus, psychiatric medications. [place] level WNL on admission. Given concern for DI, it has been discontinued. Will dc olanzapine, though it is unclear if he is actually experiencing extrapyramidal symptoms, somnolence from it; until further clarification of his mental status changes, will discontinue for now. EEG showed severe diffuse encephalopathy. No epileptiform discharges. MRI brain showed no acute abnormality. Mild patchy deep white matter signal alterations. No additional work up per neurology. (4) Hypernatremia: PLAN: Continues to worsen, up to 170 (from 160) on 05/29, down to 160. concern for DI, possible lithium-induced (which has since been held) on D5W with free water flushes via PEG. Back on D5. urine osm 306 Received DDAVP 2mg on 05/28 and 05/29. (5) (HFpEF) heart failure with preserved ejection fraction: PLAN: acute. Likely due to IVF for hypernatremia. started furosemide 05/26, discontinued 05/27. PLAN: Plan Chronic conditions: * Venous stasis dermatitis * schizophrenia: Zyprexa and lithium held. * obesity class I VTE prophylaxis: enoxaparin. Disposition: to [facility] when medically stable. Charges/Coding Visit Charges Inpatient E&M: 70051 Subs Hosp L2 05/30/24 1121 <Electronically signed by Mark Gonzalez DO> Cosigner Signature (if applicable): CC: ~ Signed [facility] Work Phone: 1(386) 790-945103-28-2025 Progress note Author Obed Garcia [facility] Note Date/Time May 30, 2024 10: 01am [facility] Medical Records Department [address] [place] [address] Progress Note - 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 05/30/24 0948 MR#: [id number] Acct: [id number] Name: TONY ARIZA Rep #:[id number] : 1960 64 From: Obed Garcia DO PCP: MARY Chi Status: [facility] Assessment & Plan Assessment/Plan (1) Acute respiratory failure with hypoxia and hypercapnia: PLAN: Plan RECOMMENDATIONS: 1. Wean supplemental oxygen to maintain saturations at or above 90%. 2. Continue D5W with DDAVP dosing per nephrology. 3. Dietary advancement per speech therapy. 4. Continue antimicrobial therapy to complete 7 days of therapy. 5. Continue scheduled bronchodilators. 6. Will sign off from a critical care perspective. Please call with any additional questions. IMPRESSIONS: 1. Acute respiratory failure with hypoxemia and hypercapnia Presumed secondary to COPD exacerbation due to recurrent aspiration. The patient does have a documented history of recurrent aspiration leading to exacerbation of his underlying obstructive lung disease. With supportive care, including bronchodilators and antimicrobials, the patient was able to be extubated on May 28. Recommend continuing to wean supplemental oxygen to maintain saturations at or above 90%. Recommend cautious dietary advancement, per speech therapy recommendations. 2. Acute toxic/metabolic encephalopathy Improved. Clinical concern for CO2 narcosis in the setting of #1. Brain MRI completed on May 27 demonstrated no acute abnormality. Neurology was previously following the patient. 3. Acute kidney injury/hypernatremia Nephrology is currently following to assist with medical management. Continue D5W as ordered along with serial monitoring of sodium levels throughout the day. Will defer ongoing dosing of DDAVP to nephrology. 4. Chronic tobacco dependency/history of schizophrenia/history of dysphagia Complicates care, management, recovery and prognosis. Continue supportive measures as noted above. Physical therapy to work with the patient. This note was generated with [employer] dictation software. It may contain incorrectwords, spelling, and punctuation that were not noted in checking the note beforesigning. Subjective Subjective The patient was seen and examined at the bedside this morning. Events from the last 24 hours have been reviewed. The patient is currently afebrile, hemodynamically stable and maintaining appropriate oxygen saturations on 2 L/minvia nasal cannula. White blood cell count remains normal. Sodium has improved to 160. The patient did receive DDAVP again yesterday and remains on D5W. Objective Data Objective Data The patient's most recent lab work, culture data and imaging studies have all been personally reviewed. Surface echocardiogram demonstrated normal LV size and function with an ejection fraction of 65%. Pulmonary artery systolic pressure was estimated to be 42 mmHg. Infectious workup has been largely unrevealing to date. Vital Signs: Vital Signs Temp Pulse Resp BP Pulse Ox O2 Del Method O2 Flow Rate 98.4 F 94 19 H 124/66 H 94 Nasal Cannula 2 05/30/24 09:05/30/24 09:05/30/24 09:05/30/24 09:26 05/30/24 09:05/30/24 09:05/30/24 09: FiO2 30 05/28/24 08:00 Oxygen Flow Rate (L/min) 2 Oxygen Delivery Method Nasal Cannula Weight: 232 lb 12.93 oz Body Mass Index (BMI) 35.4 Intake & Output: Intake and Output for Last 24 Hours 05/28/24 05/29/24 05/30/24 23:59 23:59 23:59 Intake Total 3245.36 / 3245.36 4406 / 4646 1951 / 1951 Output Total 3961 / 7965 3550 / 4550 2400 / 2400 Balance -3279.64 / -3879.64 856 / 96 -448 / -448 Lab / Micro Data Attestation: I reviewed the patient's lab results. 05/30/24 07:50 05/30/24 00:16 Labs: Laboratory Results - last 24 hr 05/29/24 11:40: Sodium 168 H*, Potassium 4.6, Chloride 132 H*, Carbon Dioxide 13.9 L, Anion Gap 22 H, BUN 35 H, Creatinine 1.56 H, Estim Creat Clear Calc 57.78, Est GFR (MDRD) Non-Af 50 L, BUN/Creatinine Ratio 22.7 H, Glucose 134 H, Calcium 7.7 05/29/24 13:55: Urine Osmolality 332 05/29/24 21:08: Sodium 162 H*, Potassium 4.5, Chloride 126 H, Carbon Dioxide 20.2 L, Anion Gap 15, BUN 30 H, Creatinine 1.56 H, Estim Creat Clear Calc 57.78,Est GFR (MDRD) Non-Af 50 L, BUN/Creatinine Ratio 19.4, Glucose 99, Calcium 8.9 05/30/24 00:16: Sodium 160 H, Potassium 4.5, Chloride 126 H, Carbon Dioxide 21.5, Anion Gap 13, BUN 30 H, Creatinine 1.57 H, Estim Creat Clear Calc 57.41, Est GFR (MDRD) Non-Af 50 L, BUN/Creatinine Ratio 19.0, Glucose 108 H, Calcium 8.7 05/30/24 07:50: WBC 10.3, RBC 4.38 L, Hgb 14.3, Hct 47.8, MCV 109.1 H, MCH 32.6 H, MCHC 29.9 L, RDW Std Deviation 73.5 H, RDW Coeff of Babatunde 18.0 H, Plt Count 135L, MPV 10.4, Immature Gran % (Auto) 0.400, Neut % (Auto) 84.0 H, Lymph % (Auto) 8.0 L, Gove % (Auto) 4.8, Eos % (Auto) 2.5, Baso % (Auto) 0.3, Absolute Neuts (auto) 8.7 H, Absolute Lymphs (auto) 0.83, Nucleated RBC % 0, Platelet Estimate SLT DEC, Anisocytosis 1+, Vancomycin Trough 12.2 Micro: Microbiology 05/23/24 11:00 Blood Culture (Wb) - Anticubital Right Blood Culture - Preliminary 05/23/24 11:00 Blood Culture (Wb) - Right Hand Blood Culture - Final No growth in 5 days. 05/23/24 12:20 Sputum, Induced/Lukens Gram Stain - Final 05/23/24 12:20 Sputum, Induced/Lukens Respiratory Culture - Final Presumptive C albicans 05/23/24 11:20 Urine, Clean Catch Urine Culture - Final Gram negative behzad 05/23/24 11:20 Mucosa - Nose SARS-CoV-2, Influenza & RSV (PCR) - Final Radiography Diagnostic Testing: Radiology Impression Brain MRI 05/27/24 09:00 IMPRESSION: 1. No acute abnormality. 2. Mild patchy deep white matter signal alterations, which is most commonly seenwith chronic ischemic microangiopathy. Reading Location: [facility] Rhythm Strip Rhythm Strip: Sinus Rhythm Rate: 95 Ectopy: None Physical Exam Const alert and no apparent distress General Appearance: cooperative HEENT normocephalic and head/scalp atraumatic Eyes EOMs intact bilaterally and conjunctivae normal Neck supple General: trachea midline Chest inspection of chest normal Resp Auscultation: diminished lung sounds; Negative for rales, rhonchi or wheezes Cardio regular rate and regular rhythm GI normal to inspection, nondistended, normoactive bowel sounds Extremity General Extremity: Negative for clubbing or edema Skin General Skin Exam: venous stasis and dermatitis Neuro CN's II-XII intact bilaterally and moves all extremities Charges/Coding Visit Charges Inpatient E&M: 17320 Subs Hosp L2 05/30/24 1001 <Electronically signed by Obed Garcia DO> Cosigner Signature (if applicable): CC: ~ Signed [facility] Work Phone: 1(263) 701-961303-28-2025 [facility] Consult note Author Urmila Thakkar [facility] Note Date/Time May 30, 2024 8:5 9am [facility] Medical Records Department [address] [place] [address] Pharmacokinetic/Renal -Consult 05/30/24 0859 MR#: [id number] Acct: [id number] Name: TONY ARIZA Rep #:[id number] : 1960 64 From: Urmila Thakkar PCP: Ingris Chu [employer]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 05/23/24 12:20 Sputum, Induced/Lukens Gram Stain - Final 05/23/24 12:20 Sputum, Induced/Lukens Respiratory Culture - Final Presumptive C albicans 05/23/24 11:20 Urine, Clean Catch Urine Culture - Final Gram negative behzad 05/23/24 11:20 Mucosa - Nose SARS-CoV-2, Influenza & RSV (PCR) - Final Goal Trough Goal Trough: 15-20 mcg/mL Pharmacy Plan for Drug Dosing Pharmacy Plan for Drug Dosing: VANCOMYCIN LEVEL RECEIVED Current Vancomycin Dose: 1000mg IV Q24h Number of Doses Received: 2 (of current regimen) Vancomycin Level: 12.2 Hours Since Last Dose: ~12.5 hr Renal Function: 1.57 Renal Function Trend: elevated from admission, but stable from yesterday Lab/Micro: no new micro results Vancomycin Plan/Comments: Patient had a trough drawn which resulted in a value of 12.2 (goal 15-20). patient's level is slightly subtherapeutic. Will increase dose slightly to 1250mg IV q24h to start 05/30/24 @1000. Pending Level: 06/01/24 @0930, prior to 3rd dose of new regimen Pharmacy Service will continue to monitor and adjust dosing as required. 05/30/24 0859 <Electronically signed by Urmila Thakkar > Date _ Urmila Thakkar Cosigner Signature (if applicable): Date CC: ~ Signed [facility] Work Phone: [phone]) 523-326003-27-2025 Progress note Author Mark Gonzalez [facility] Note Date/Time May 29, 2024 12: 37pm [facility] Medical Records Department [address] [place] [address] Progress Note - Hospitalist 05/29/24 0700 MR#: [id number] Acct: [id number] Name: TOTONY Rep #:[id number] : 1960 64 From: Mark Gonzalez DO PCP: MARY Chi Status: ADM IN Location: ICU ICU04-1 Reason for Visit Reason for Visit: Diagnoses Hyperosmolality and hypernatremia (05/23/24) Metabolic encephalopathy (05/23/24) Unspecified diastolic (congestive) heart failure (05/23/24) Venous insufficiency (chronic) (peripheral) (05/23/24) Chronic obstructive pulmonary disease with (acute) exacerbation (05/23/24) Acute respiratory failure with hypoxia (05/23/24) Acute respiratory failure with hypercapnia (05/23/24) Acute kidney failure, unspecified (05/23/24) Subjective Subjective Wants something to drink. Objective Data Objective Data Vital Signs: Vital Signs Temp Pulse Resp BP Pulse Ox O2 Del Method O2 Flow Rate 36.9 C 97 20 H 142/75 H 97 Nasal Cannula 4 05/29/24 04:00 05/29/24 06:00 05/29/24 06:00 05/29/24 06:00 05/29/24 06:00 05/29/24 06:00 05/29/24 06:00 FiO2 30 05/28/24 08:00 Oxygen Flow Rate (L/min) 4 Oxygen Delivery Method Nasal Cannula Weight: 105.4 kg Body Mass Index (BMI) 35.2 Intake & Output: Intake and Output for Last 24 Hours 05/27/24 05/28/24 05/29/24 23:59 23:59 23:59 Intake Total 5461.04 / 5769.02 3245.36 / 3245.36 1100 / 1100 Output Total 5450 / 6025 6525 / 7125 1500 / 1500 Balance 11.04 / -255.98 -3279.64 / -3879.64 -400 / -400 Lab / Micro Data 05/28/24 05:30 05/29/24 04:15 Labs: Laboratory Results - last 24 hr 05/28/24 05:30: Platelet Estimate SLT DEC, Anisocytosis 1+, Tear Drop Cells 1+, Schistocytes RARE, Sodium 160 H, Potassium 5.0, Chloride 126 H, Carbon Dioxide 24.1, Anion Gap 9, BUN 41 H, Creatinine 1.62 H, Estim Creat Clear Calc 58.37, Est GFR (MDRD) Non-Af 48 L, BUN/Creatinine Ratio 25.2 H, Glucose 97, Calcium 8.0,Random Vancomycin 17.8 H 05/28/24 12:56: POC Glucose 103 05/29/24 04:15: Sodium 170 H*, Potassium 4.5, Chloride 133 H*, Carbon Dioxide 26.7, Anion Gap 10, BUN 34 H, Creatinine 1.42 H, Estim Creat Clear Calc 66.59, Est GFR (MDRD) Non-Af 56 L, BUN/Creatinine Ratio 23.9 H, Glucose 115 H, Calcium 9.5 Micro: Microbiology 05/23/24 11:00 Blood Culture (Wb) - Right Hand Blood Culture - Final No growth in 5 days. 05/23/24 11:00 Blood Culture (Wb) - Anticubital Right Blood Culture - Preliminary 05/23/24 12:20 Sputum, Induced/Lukens Gram Stain - Final 05/23/24 12:20 Sputum, Induced/Lukens Respiratory Culture - Final Presumptive C albicans 05/23/24 11:20 Urine, Clean Catch Urine Culture - Final Gram negative behzad 05/23/24 11:20 Mucosa - Nose SARS-CoV-2, Influenza & RSV (PCR) - Final Rhythm Strip Rhythm Strip: Sinus Rhythm Rate: 95 Ectopy: None Physical Exam Const alert and no apparent distress HEENT head/scalp atraumatic and moist oral mucous membranes Resp normal respiratory effort, no retractions, no use of accessory muscles and clearto auscultation bilaterally Cardio regular rate, regular rhythm, S1 normal heart sound and S2 normal heart sound GI normal to inspection, nondistended, normoactive bowel sounds, soft to palpation,non-tender and non-distended Extremity normal to inspection, full ROM and no clubbing, cyanosis or edema Neuro Sensorium / Orientation: awake, alert, oriented to person, oriented to place andoriented to time Assessment & Plan Assessment/Plan (1) Acute respiratory failure with hypoxia and hypercapnia: PLAN: Extubated 05/28/ COPD exacerbation + CHF + pneumonia (aspiration) amp/SB and vancomycin (2) COPD with acute exacerbation: PLAN: BDs and methylprednisolone (3) Metabolic encephalopathy: PLAN: Toxic metabolic encephalopathy / CO2 narcosis plus underlying psychiatric history. Plus, psychiatric medications. [place] level WNL on admission. Given concern for DI, it has been discontinued. Will dc olanzapine, though it is unclear if he is actually experiencing extrapyramidal symptoms, somnolence from it; until further clarification of his mental status changes, will discontinue for now. EEG showed severe diffuse encephalopathy. No epileptiform discharges. MRI brain showed no acute abnormality. Mild patchy deep white matter signal alterations. No additional work up per neurology. (4) Hypernatremia: PLAN: Continues to worsen, up to 1670 (from 160) concern for DI. on D5W with free water flushes via PEG. Back on D5. urine osm 306 DW nephrology 05/27, will DC furosemide. Received DDAVP 2mg on 05/28. Plan to give another dose today. (5) (HFpEF) heart failure with preserved ejection fraction: PLAN: acute. Likely due to IVF for hypernatremia. started furosemide 05/26, discontinued 05/27. PLAN: Plan Chronic conditions: * Venous stasis dermatitis * schizophrenia * obesity class I VTE prophylaxis: enoxaparin. Charges/Coding Visit Charges Inpatient E&M: 03603 Subs Hosp L2 05/29/24 1237 <Electronically signed by Mark Gonzalez DO> Cosigner Signature (if applicable): CC: ~ Signed [facility] Work Phone: 1(706) [phone] Progress note Author Romeo Gallardo [facility] Note Date/Time May 29, 2024 10: 01am [facility] Medical Records Department [address] [place] [address] Progress Note - Infect Disease 05/29/24 1000 MR#: [id number] Acct: [id number] Name: TONY ARIZA Rep #:[id number] : 1960 64 From: Romeo moore MD PCP: Ingris Chu, LOGGING TRACTOR OPERATOR-C Status: ADM IN Location: ICU ICU04-1 Physical Exam Narrative Feeling better, mild dyspnea, no pain in legs. Const alert and no apparent distress General Appearance: cooperative Resp normal air movement and clear to auscultation bilaterally Cardio regular rate and regular rhythm GI soft to palpation, non-tender and non-distended Extremity General Extremity: edema Skin Skin Narrative: BLE less red ID ID: Route of nutrition/ use of supplements: [] Nutritional Intake: [] IV Site: [] Greer Catheter: [] Assessment & Plan Assessment/Plan (1) Acute respiratory failure with hypoxia and hypercapnia: PLAN: 1 of 2 bcx with GPR, so far consistent with contaminated sample. Ucx with less than 1k GNR. Some low grade temps here. L foot wound improved. On vanc/unasyn, plan on stopping tomorrow. Will follow 05/29/24 1001 <Electronically signed by Romeo Gallardo MD> Cosigner Signature (if applicable): CC: ~ Signed [facility] Work Phone: 1(336) 307-499903-27-2025 Progress note Author Obed Garcia [facility] Note Date/Time May 29, 2024 9:3 9am [facility] Medical Records Department [address] [place] [address] Progress Note - 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 05/29/24 0836 MR#: [id number] Acct: [id number] Name: TONY ARIZA Rep #:[id number] : 1960 64 From: Obed Garcia DO PCP: Ingris Chu, LOGGING TRACTOR OPERATOR-C Status: ADM IN Location: ICU ICU04-1 Assessment & Plan Assessment/Plan (1) Acute respiratory failure with hypoxia and hypercapnia: PLAN: Plan RECOMMENDATIONS: 1. Wean supplemental oxygen to maintain saturations at or above 90%. 2. Restart D5W with consideration for DDAVP dosing, per nephrology. 3. Serial monitoring of sodium level throughout the day. 4. Maintain n.p.o. status, pending evaluation by speech therapy. 5. Continue antimicrobial therapy to complete 7 days of therapy. 6. Continue scheduled bronchodilators. IMPRESSIONS: 1. Acute respiratory failure with hypoxemia and hypercapnia Presumed secondary to COPD exacerbation due to recurrent aspiration. The patient does have a documented history of recurrent aspiration leading to exacerbation of his underlying obstructive lung disease. With supportive care, including bronchodilators and antimicrobials, the patient was able to be extubated on May 28. Recommend continuing to wean supplemental oxygen to maintain saturations at or above 90%. The patient should remain n.p.o. for now, pending reevaluation by speech therapy. 2. Acute toxic/metabolic encephalopathy Clinical concern for CO2 narcosis in the setting of #1. Brain MRI completed on May 27 demonstrated no acute abnormality. Neurology was previously following the patient. Plan to attempt to limit sedating medications as feasible. The patient appears to be slowly improving from a clinical perspective. 3. Acute kidney injury/hypernatremia Nephrology is currently following to assist with medical management. Continue D5W as ordered along with serial monitoring of sodium levels throughout the day. Nephrology considering re-dosing of DDAVP. 4. Chronic tobacco dependency/history of schizophrenia/history of dysphagia Complicates care, management, recovery and prognosis. Continue supportive measures as noted above. The patient should again remain n.p.o., pending reevaluation by speech therapy. This note was generated with [employer] dictation software. It may contain incorrectwords, spelling, and punctuation that were not noted in checking the note beforesigning. Subjective Subjective The patient was seen and examined at the bedside this morning. Events from the last 24 hours have been reviewed. The patient is currently afebrile, hemodynamically stable and maintaining appropriate oxygen saturations on 2 L/minvia nasal cannula. The patient has done well from a respiratory perspective following extubation yesterday. He is currently documented to be overall net -4.2 L for the hospitalization. Sodium this morning is increased at 170 with a chloride of 133. Creatinine is improved to 1.42. This case was discussed with nephrology this morning. Objective Data Objective Data The patient's most recent lab work, culture data and imaging studies have all been personally reviewed. Surface echocardiogram demonstrated normal LV size and function with an ejection fraction of 65%. Pulmonary artery systolic pressure was estimated to be 42 mmHg. Infectious workup has been largely unrevealing to date. Vital Signs: Vital Signs Temp Pulse Resp BP Pulse Ox O2 Del Method O2 Flow Rate 98.4 F 78 28 H 138/75 H 95 Nasal Cannula 4 05/29/24 04:00 05/29/24 07:11 05/29/24 07:11 05/29/24 07:00 05/29/24 07:11 05/29/24 07:11 05/29/24 07:11 FiO2 30 05/28/24 08:00 Oxygen Flow Rate (L/min) 4 Oxygen Delivery Method Nasal Cannula Weight: 232 lb 5.875 oz Body Mass Index (BMI) 35.2 Intake & Output: Intake and Output for Last 24 Hours 05/27/24 05/28/24 05/29/24 23:59 23:59 23:59 Intake Total 5461.04 / 5769.02 3245.36 / 3245.36 1522 / 1522 Output Total 5450 / 6025 6525 / 7125 1500 / 1500 Balance 11.04 / -255.98 -3279.64 / -3879.64 Lab / Micro Data Attestation: I reviewed the patient's lab results. 05/28/24 05:30 05/29/24 04:15 Labs: Laboratory Results - last 24 hr 05/28/24 12:56: POC Glucose 103 05/29/24 04:15: Sodium 170 H*, Potassium 4.5, Chloride 133 H*, Carbon Dioxide 26.7, Anion Gap 10, BUN 34 H, Creatinine 1.42 H, Estim Creat Clear Calc 66.59, Est GFR (MDRD) Non-Af 56 L, BUN/Creatinine Ratio 23.9 H, Glucose 115 H, Calcium 9.5 Micro: Microbiology 05/23/24 11:00 Blood Culture (Wb) - Right Hand Blood Culture - Final No growth in 5 days. 05/23/24 11:00 Blood Culture (Wb) - Anticubital Right Blood Culture - Preliminary 05/23/24 12:20 Sputum, Induced/Lukens Gram Stain - Final 05/23/24 12:20 Sputum, Induced/Lukens Respiratory Culture - Final Presumptive C albicans 05/23/24 11:20 Urine, Clean Catch Urine Culture - Final Gram negative behzad 05/23/24 11:20 Mucosa - Nose SARS-CoV-2, Influenza & RSV (PCR) - Final Radiography Diagnostic Testing: Radiology Impression Brain MRI 05/27/24 09:00 IMPRESSION: 1. No acute abnormality. 2. Mild patchy deep white matter signal alterations, which is most commonly seenwith chronic ischemic microangiopathy. Reading Location: [facility] Rhythm Strip Rhythm Strip: Sinus Rhythm Rate: 95 Ectopy: None Physical Exam Const Constitutional Narrative: Much more alert and interactive than yesterday. Still remains confused. HEENT normocephalic and head/scalp atraumatic HEENT Narrative: Dry mucous membranes Eyes EOMs intact bilaterally and conjunctivae normal Neck supple General: trachea midline Chest inspection of chest normal Resp Auscultation: diminished lung sounds; Negative for rales, rhonchi or wheezes Cardio regular rate and regular rhythm GI normal to inspection, nondistended, normoactive bowel sounds Extremity General Extremity: Negative for clubbing or edema Skin General Skin Exam: venous stasis and dermatitis Neuro CN's II-XII intact bilaterally and moves all extremities Charges/Coding Visit Charges Inpatient E&M: 81213 Subs Hosp L3 05/29/24 0939 <Electronically signed by Obed Garcia DO> Cosigner Signature (if applicable): CC: ~ Signed [facility] Work Phone: 1(559) 295-589503-26-2025 Progress note Author Romeo Gallardo [facility] Note Date/Time May 28, 2024 4:2 8pm [facility] Medical Records Department [address] [address] Progress Note - Infect Disease 05/28/24 1626 MR#: [id number] Acct: [id number] Name: TOTONY Rep #:[id number] : 1960 64 From: Romeo moore MD PCP: Ingris Chu NP-C Status: ADM IN Location: ICU ICU04- Physical Exam Narrative Extubated, breathing ok, wants to drink something. Low grade temp overnight. Const no apparent distress General Appearance: cooperative Resp normal air movement and clear to auscultation bilaterally Cardio regular rate and regular rhythm GI soft to palpation, non-tender and non-distended Skin Skin Narrative: BLE redness, improved ID ID: Route of nutrition/ use of supplements: [] Nutritional Intake: [] IV Site: [] Greer Catheter: [] Assessment & Plan Assessment/Plan (1) Acute respiratory failure with hypoxia and hypercapnia: PLAN: 1 of 2 bcx with GPR, so far consistent with contaminated sample. Ucx with less than 1k GNR. Some low grade temps here. L foot wound improved. On vanc/unasyn, plan on stopping soon. Now extubated. Will follow 05/28/241627 <Electronically signed by Romeo Gallardo MD> Cosigner Signature (if applicable): CC: ~ Signed [facility] Work Phone: 1(626) 587-705603-26-2025 Consult note Author Regi Read [facility] Note Date/Time May 28, 2024 3:0 3pm [facility] Medical Records Department [address] [place] [id number] Pharmacokinetic/Renal -Consult 05/28/24824 MR#: [id number] Acct: [id number] Name: TONY ARIZA Rep #:[id number] : 1960 64 From: Regi Read PCP: MARY Chi Status: ADM IN Y Location: ICU ICU04- Consult Antibiotic Management Pharmacy has been consulted to manage selected antibiotic: Vancomycin Type of Intervention Type of Consult: Follow-up Suspected Infection Suspected Infection: Other (Respiratory Failure) Prior Doses of Antibiotics Prior Doses of Antibiotics Received/Current Regimen: None since hold Labs Labs: Sodium 160 mmol/L (133-145) H 05/28/24 05:30 Potassium 5.0 mmol/L (3.3-5.1) 05/28/24 05:30 Chloride 126 mmol/L (98-108) H 05/28/24 05:30 Carbon Dioxide 24.1 mmol/L (21.0-32.0) 05/28/24 05:30 Anion Gap 9 (5-15) 05/28/24 05:30 BUN 41 mg/dL (4-19) H 05/28/24 05:30 Creatinine 1.62 mg/dL (0.70-1.20) H 05/28/24 05:30 Est GFR (MDRD) Non-Af 48 (>60) L 05/28/24 05:30 BUN/Creatinine Ratio 25.2 RATIO (10-20) H 05/28/24 05:30 Glucose 97 mg/dL (70-99) 05/28/24 05:30 Vancomycin Trough 26.3 ug/mL (5.0-15.0) H 05/27/24 17:32 Random Vancomycin 17.8 ug/mL (0.0-15.0) H 05/28/24 05:30 Microbiology Microbiology: Microbiology 05/23/24 11:00 Blood Culture (Wb) - Right Hand Blood Culture - Preliminary No growth in 48 hours. 05/23/24 11:00 Blood Culture (Wb) - Anticubital Right Blood Culture - Preliminary 05/23/24 12:20 Sputum, Induced/Lukens Gram Stain - Final 05/23/24 12:20 Sputum, Induced/Lukens Respiratory Culture - Final Presumptive C albicans 05/23/24 11:20 Urine, Clean Catch Urine Culture - Final Gram negative behzad 05/23/24 11:20 Mucosa - Nose SARS-CoV-2, Influenza & RSV (PCR) - Final Dosing Weight Weight used for dosin.7 kg Estimated Creatinine Clearance Estimated Creatinine Clearance: 58.37 Goal Trough Goal Trough: 15-20 mcg/mL Pharmacy Plan for Drug Dosing Pharmacy Plan for Drug Dosing: VANCOMYCIN LEVEL RECEIVED Current Vancomycin Dose: 1000 MG Q12H Number of Doses Received: NONE Vancomycin Level: 17.8 Hours Since Last Dose: 23.5 Renal Function: SCr 1.62 mg/dL, CrCl 58.37 mL/min Renal Function Trend: Down Lab/Micro: Vancomycin Plan/Comments: holding one dose brought level to 17.8, will reduce frequency to 1000 mg q 24h and continue to monitor as needed. Pending Level: 05/30/2024 @0800 Pharmacy Service will continue to monitor and adjust dosing as required. Follow-Up Labs Follow-Up Labs: Trough: Vancomycin (05/30/2024 @0800) 05/28/24 0828 <Electronically signed by Regi Pemberton ey> Date _ Regi Read 05/28/24 1503 <Electronically signed by Mark Gonzalez DO> Cosigner Signature (if applicable): Date Mark Gonzalez DO CC: ~ Signed [facility] Work Phone: [phone]) 417-331203-26-2025 Progress note Author Mark Gonzalez [facility] Note Date/Time May 28, 2024 1:1 5pm [facility] Medical Records Department [address] [place] [address] Progress Note - Hospitalist 05/28/24809 MR#: [id number] Acct: [id number] Name: TONY ARIZA Gabby Rep #:[id number] : 1960 64 From: Mark Gonzalez DO PCP: MARY Chi Status: ADM IN Location: ICU ICU- Reason for Visit Reason for Visit: Diagnoses Hyperosmolality and hypernatremia (05/23/24) Metabolic encephalopathy (05/23/24) Unspecified diastolic (congestive) heart failure (05/23/24) Venous insufficiency (chronic) (peripheral) (05/23/24) Chronic obstructive pulmonary disease with (acute) exacerbation (05/23/24) Acute respiratory failure with hypoxia (05/23/24) Acute respiratory failure with hypercapnia (05/23/24) Acute kidney failure, unspecified (05/23/24) Subjective Subjective Following commands and establishes eye contact. Objective Data Objective Data Vital Signs: Vital Signs Temp Pulse Resp BP Pulse Ox O2 Del Method O2 Flow Rate 37.6 C H 58 L 20 H 106/57 L 92 Mechanical Ventilator 35 05/28/24 05:57 05/28/24 07:05 05/28/24 07:05 05/28/24 07:00 05/28/24 07:05 05/28/24 07:00 05/25/24 15:30 FiO2 30 05/28/24 07:05 Oxygen Flow Rate (L/min) 35 Oxygen Delivery Method Mechanical Ventilator Weight: 115.6 kg Body Mass Index (BMI) 38.7 Intake & Output: Intake and Output for Last 24 Hours 05/26/24 05/27/24 05/28/24 23:59 23:59 23:59 Intake Total 7425.19 / 7739.39 5461.04 / 5769.02 583.78 / 583.78 Output Total 6725 / 6725 5450 / 6025 1275 / 1275 Balance 700.19 / 1014.39 11.04 / -255.98 -691.22 / -691.22 Lab / Micro Data 05/28/24 05:30 05/28/24 05:30 Labs: Laboratory Results - last 24 hr 05/27/24 07:30: Urine Osmolality 173 05/27/24 17:32: Vancomycin Trough 26.3 H 05/27/24 18:50: Urine Osmolality 306, Ur Random Sodium 52, Urine Potassium 18.1 05/28/24 05:30: WBC 7.1, RBC 4.13 L, Hgb 13.6, Hct 46.0, MCV 111.4 H, MCH 32.9 H, MCHC 29.6 L, RDW Std Deviation 77.1 H, RDW Coeff of Babatunde 18.6 H, Plt Count 140 L, MPV 10.7, Immature Gran % (Auto) 0.400, Neut % (Auto) 75.7 H, Lymph % (Auto) 15.5 L, Gove % (Auto) 8.0, Eos % (Auto) 0.3, Baso % (Auto) 0.1, Absolute Neuts (auto) 5.4, Absolute Lymphs (auto) 1.10, Nucleated RBC % 0, Platelet Estimate SLT DEC, Anisocytosis 1+, Tear Drop Cells 1+, Schistocytes RARE, Sodium 160 H, Potassium 5.0, Chloride 126 H, Carbon Dioxide 24.1, Anion Gap 9, BUN 41 H, Creatinine 1.62 H, Estim Creat Clear Calc 58.37, Est GFR (MDRD) Non-Af 48 L, BUN/Creatinine Ratio 25.2 H, Glucose 97, Calcium 8.0, Random Vancomycin 17.8 H Micro: Microbiology 05/23/24 11:00 Blood Culture (Wb) - Right Hand Blood Culture - Preliminary No growth in 48 hours. 05/23/24 11:00 Blood Culture (Wb) - Anticubital Right Blood Culture - Preliminary 05/23/24 12:20 Sputum, Induced/Lukens Gram Stain - Final 05/23/24 12:20 Sputum, Induced/Lukens Respiratory Culture - Final Presumptive C albicans 05/23/24 11:20 Urine, Clean Catch Urine Culture - Final Gram negative behzad 05/23/24 11:20 Mucosa - Nose SARS-CoV-2, Influenza & RSV (PCR) - Final Radiography Diagnostic Testing: Radiology Impression Brain MRI 05/27/24 09:00 IMPRESSION: 1. No acute abnormality. 2. Mild patchy deep white matter signal alterations, which is most commonly seenwith chronic ischemic microangiopathy. Reading [facility] Rhythm Strip Rhythm Strip: Sinus Rhythm Rate: 95 Ectopy: None Physical Exam Const alert Constitutional Narrative: seen prior to extubation. He established eye contact with me. He followed commands (giving a thumbs up and straightening his legs) HEENT head/scalp atraumatic and moist oral mucous membranes Resp normal respiratory effort and no retractions Resp Narrative: coarse breath sounds Cardio regular rate, regular rhythm, S1 normal heart sound and S2 normal heart sound GI normal to inspection, nondistended, normoactive bowel sounds, soft to palpation,non-tender and non-distended Extremity Extremity Narrative: venous stasis changes to LE. Neuro Sensorium / Orientation: awake and alert Assessment & Plan Assessment/Plan (1) Acute respiratory failure with hypoxia and hypercapnia: PLAN: Extubated 05/28 2/2 COPD exacerbation + CHF + pneumonia (aspiration) Wean ventilator as able. amp/SB and vancomycin (2) COPD with acute exacerbation: PLAN: BDs and methylprednisolone (3) Metabolic encephalopathy: PLAN: Toxic metabolic encephalopathy 2/2 CO2 narcosis plus underlying psychiatric history. Plus, psychiatric medications. [place] level WNL on admission. Given concern for DI, it has been discontinued. Will dc olanzapine, though it is unclear if he is actually experiencing extrapyramidal symptoms, somnolence from it; until further clarification of his mental status changes, will discontinue for now. EEG showed severe diffuse encephalopathy. No epileptiform discharges. Pt had sedation holiday on 05/27 and was very agitated and eyes deviated to left. MRI brain showed no acute abnormality. Mild patchy deep white matter signal alterations. No additional work up per neurology. (4) Hypernatremia: PLAN: Worse, up to 160 (from 151) concern for DI. on D5W with free water flushes via PEG. Back on D5. urine osm 306 DW nephrology 05/27, will DC furosemide. (5) (HFpEF) heart failure with preserved ejection fraction: PLAN: acute. Likely due to IVF for hypernatremia. started furosemide 05/26, discontinued 05/27. PLAN: Plan Chronic conditions: * Venous stasis dermatitis * schizophrenia * obesity class I VTE prophylaxis: enoxaparin. Charges/Coding Visit Charges Inpatient E&M: 17345 Subs Hosp L2 05/28/24 1315 <Electronically signed by Mark Gonzalez DO> Cosigner Signature (if applicable): CC: ~ Signed [facility] Work Phone: 1([phone]) 335-641203-26-2025 Progress note Author Glendy Tomlin [facility] Note Date/Time May 28, 2024 12: 45pm [facility] Medical Records Department [address] [place] [address] Progress Note - Neurology 05/28/24 1240 MR#: [id number] Acct: [id number] Name: TOTONY BURR Gabby Rep #:[id number] : 1960 64 From: Glendy Tomlin MD PCP: MARY Chi Status: ADM IN Location: ICU ICU04-1 Assessment and Plan: Neuro Assessment/Plan 64 yo man with COPD, extensive psych history including schizophrenia, dysphagiaand debility, presented 05/23 from assisted living with altered mental status inthe setting of COPD exacerbation, Hypoxia and SpO2 60s%, PH 7.27 with hypercarbia, NILESH (cr 1.48) on CKD, was placed on BiPAP and remained unable to protect airways requiring intubation. He has been very agitated,? did not tolerate precedex due to bradycardia and on-going agitation, on Propofol. CTH with on acute findings, Utox negative. On home lithium and olanzapine. EEG with no fidnigns to suggest seizures or epileptic activity. MRI brain with no acute findings or stroke, but chronic small vessel white matter changes Patient got extubated, he is improving, alert, following commands Toxic metabolic encephalopathy - improving We will sign off at this time. Please call with questions. Subject: Neurology Subjective Patient got extubated today, following simple commands EEG Results Procedure Details EEG Procedure Details: TONY ARIZA is a 64 year old M with a past medical history of , who presents for evaluation of Electroencephalogram on DATE at TIME Objective Data Objective Data Vital Signs: Vital Signs Temp Pulse Resp BP Pulse Ox O2 Del Method O2 Flow Rate 99.0 F 115 H 22 H 129/65 H 90 Nasal Cannula 6 05/28/24 11:00 05/28/24 11:00 05/28/24 11:00 05/28/24 11:00 05/28/24 11:00 05/28/24 11:00 05/28/24 11:00 FiO2 30 05/28/24 08:00 Oxygen Flow Rate (L/min) 6 Oxygen Delivery Method Nasal Cannula Weight: 115.6 kg Body Mass Index (BMI) 38.7 Intake & Output: Intake and Output for Last 24 Hours 05/26/24 05/27/24 05/28/24 23:59 23:59 23:59 Intake Total 7425.19 / 7739.39 5461.04 / 5769.02 1801.36 / 1801.36 Output Total 6725 / 6725 5450 / 6025 2875 / 2875 Balance 700.19 / 1014.39 11.04 / -255.98 -1073.64 / -1073.64 Lab / Micro Data 05/28/24 05:30 05/28/24 05:30 Labs: Laboratory Results - last 24 hr 05/27/24 17:32: Vancomycin Trough 26.3 H 05/27/24 18:50: Urine Osmolality 306, Ur Random Sodium 52, Urine Potassium 18.1 05/28/24 05:30: WBC 7.1, RBC 4.13 L, Hgb 13.6, Hct 46.0, MCV 111.4 H, MCH 32.9 H, MCHC 29.6 L, RDW Std Deviation 77.1 H, RDW Coeff of Babatunde 18.6 H, Plt Count 140 L, MPV 10.7, Immature Gran % (Auto) 0.400, Neut % (Auto) 75.7 H, Lymph % (Auto) 15.5 L, Gove % (Auto) 8.0, Eos % (Auto) 0.3, Baso % (Auto) 0.1, Absolute Neuts (auto) 5.4, Absolute Lymphs (auto) 1.10, Nucleated RBC % 0, Platelet Estimate SLT DEC, Anisocytosis 1+, Tear Drop Cells 1+, Schistocytes RARE, Sodium 160 H, Potassium 5.0, Chloride 126 H, Carbon Dioxide 24.1, Anion Gap 9, BUN 41 H, Creatinine 1.62 H, Estim Creat Clear Calc 58.37, Est GFR (MDRD) Non-Af 48 L, BUN/Creatinine Ratio 25.2 H, Glucose 97, Calcium 8.0, Random Vancomycin 17.8 H Micro: Microbiology 05/23/24 11:00 Blood Culture (Wb) - Right Hand Blood Culture - Final No growth in 5 days. 05/23/24 11:00 Blood Culture (Wb) - Anticubital Right Blood Culture - Preliminary 05/23/24 12:20 Sputum, Induced/Lukens Gram Stain - Final 05/23/24 12:20 Sputum, Induced/Lukens Respiratory Culture - Final Presumptive C albicans 05/23/24 11:20 Urine, Clean Catch Urine Culture - Final Gram negative behzad 05/23/24 11:20 Mucosa - Nose SARS-CoV-2, Influenza & RSV (PCR) - Final Rhythm Strip Rhythm Strip: Sinus Rhythm Rate: 95 Ectopy: None Physical Exam Narrative Patient alert, following simple commands, able to tell his name, but voice very gurgly 05/28/24 1245 <Electronically signed by Glendy Tomlin MD> Cosigner Signature (if applicable): CC: ~ Signed [facility] Work Phone: [phone]) 184-126403-26-2025 Progress note Author Obed Garcia [facility] Note Date/Time May 28, 2024 10: 00am [facility] Medical Records Department [address] [place] [address] Progress Note - 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 05/28/24 0756 MR#: [id number] Acct: [id number] Name: TONY ARIZA Rep #:[id number] : 1960 64 From: Obed Garcia DO PCP: Ingris Chu, LOGGING TRACTOR OPERATORCarlosC Status: ADM IN Location: ICU ICU04-1 Assessment & Plan Assessment/Plan (1) Acute respiratory failure with hypoxia and hypercapnia: PLAN: Plan RECOMMENDATIONS: 1. Proceed with a trial of extubation this morning. 2. Once extubated, wean supplemental oxygen to maintain saturations at or above90%. 3. Maintain n.p.o. status, pending evaluation by speech therapy. 4. Start D5W. 5. Continue antimicrobial therapy. 6. Continue scheduled bronchodilators. 7. Continue appropriate ICU prophylaxis. 8. The patient may require neurology follow-up, depending on clinical course. IMPRESSIONS: 1. Acute respiratory failure with hypoxemia and hypercapnia Presumed secondary to COPD exacerbation due to recurrent aspiration. The patient does have a documented history of recurrent aspiration leading to exacerbation of his underlying obstructive lung disease. At this time, the patient appears improved from a respiratory perspective with invasive mechanicalventilatory support. He passed a spontaneous breathing trial this morning and will therefore be extubated. In the interim, he will be continued on antimicrobials and bronchodilators. Plan to continue to wean supplemental oxygen to maintain saturations at or above 90%. The patient should remain n.p.o. for now, pending reevaluation by speech therapy. 2. Acute toxic/metabolic encephalopathy Clinical concern for CO2 narcosis in the setting of #1. Brain MRI completed on May 27 demonstrated no acute abnormality. Neurology was previously following the patient. Plan to attempt to limit sedating medications as feasible. Proceed with extubation as noted above. If the patient does not begin to improve from a mental status perspective, we will ask neurology to reevaluate the patient. 3. Acute kidney injury/hypernatremia Nephrology is currently following to assist with medical management. Given increasing serum sodium level, will start D5W. 4. Chronic tobacco dependency/history of schizophrenia/history of dysphagia Complicates care, management, recovery and prognosis. Continue supportive measures as noted above. The patient should again remain n.p.o., pending reevaluation by speech therapy. TIME: 35 minutes of critical care time, independent of procedures, was spent addressing the patient's acute respiratory failure with hypoxemia and hypercapnia, toxic/metabolic encephalopathy, acute kidney injury, hypernatremia,review of all data and collaboration with the care team. Subjective Subjective The patient was seen and examined at the bedside this morning. Events from the last 24 hours have been reviewed. The patient currently has a low-grade fever but remains otherwise hemodynamically stable on assist-control mode mechanical ventilation with an FiO2 requirement of 30% and PEEP of 5. The patient has remained sedated on a combination of propofol and fentanyl. He has been tolerant of tube feeding. The patient is currently documented to be overall net-1.4 L for the hospitalization. White blood cell count is normal. Sodium has increased to 160 with a chloride of 126. Creatinine is stable at 1.62. After my initial evaluation of the patient this morning, his sedation medications were placed on hold. He subsequently completed a spontaneous wakingtrial and then went on to complete a spontaneous breathing trial successfully. He was alert and able to follow simple commands. Therefore, the decision was made to proceed with a trial of extubation. Objective Data Objective Data The patient's most recent lab work, culture data and imaging studies have all been personally reviewed. Surface echocardiogram demonstrated normal LV size and function with an ejection fraction of 65%. Pulmonary artery systolic pressure was estimated to be 42 mmHg. Infectious workup has been largely unrevealing to date. Vital Signs: Vital Signs Temp Pulse Resp BP Pulse Ox O2 Del Method O2 Flow Rate 99.6 F H 58 L 20 H 106/57 L 92 Mechanical Ventilator 35 05/28/24 05:57 05/28/24 07:05 05/28/24 07:05 05/28/24 07:00 05/28/24 07:05 05/28/24 07:00 05/25/24 15:30 FiO2 30 05/28/24 07:05 Oxygen Flow Rate (L/min) 35 Oxygen Delivery Method Mechanical Ventilator Weight: 254 lb 13.67 oz Body Mass Index (BMI) 38.7 Intake & Output: Intake and Output for Last 24 Hours 05/26/24 05/27/24 05/28/24 23:59 23:59 23:59 Intake Total 7425.19 / 7739.39 5461.04 / 5769.02 583.78 / 583.78 Output Total 6725 / 6725 5450 / 6025 1275 / 1275 Balance 700.19 / 1014.39 11.04 / -255.98 -691.22 / -691.22 Lab / Micro Data Attestation: I reviewed the patient's lab results. 05/28/24 05:30 05/28/24 05:30 Labs: Laboratory Results - last 24 hr 05/27/24 07:30: Urine Osmolality 173 05/27/24 17:32: Vancomycin Trough 26.3 H 05/27/24 18:50: Urine Osmolality 306, Ur Random Sodium 52, Urine Potassium 18.1 05/28/24 05:30: WBC 7.1, RBC 4.13 L, Hgb 13.6, Hct 46.0, MCV 111.4 H, MCH 32.9 H, MCHC 29.6 L, RDW Std Deviation 77.1 H, RDW Coeff of Babatunde 18.6 H, Plt Count 140 L, MPV 10.7, Immature Gran % (Auto) 0.400, Neut % (Auto) 75.7 H, Lymph % (Auto) 15.5 L, Gove % (Auto) 8.0, Eos % (Auto) 0.3, Baso % (Auto) 0.1, Absolute Neuts (auto) 5.4, Absolute Lymphs (auto) 1.10, Nucleated RBC % 0, Sodium 160 H, Potassium 5.0, Chloride 126 H, Carbon Dioxide 24.1, Anion Gap 9, BUN 41 H, Creatinine 1.62 H, Estim Creat Clear Calc 58.37, Est GFR (MDRD) Non-Af 48 L, BUN/Creatinine Ratio 25.2 H, Glucose 97, Calcium 8.0 Micro: Microbiology 05/23/24 11:00 Blood Culture (Wb) - Right Hand Blood Culture - Preliminary No growth in 48 hours. 05/23/24 11:00 Blood Culture (Wb) - Anticubital Right Blood Culture - Preliminary 05/23/24 12:20 Sputum, Induced/Lukens Gram Stain - Final 05/23/24 12:20 Sputum, Induced/Lukens Respiratory Culture - Final Presumptive C albicans 05/23/24 11:20 Urine, Clean Catch Urine Culture - Final Gram negative behzad 05/23/24 11:20 Mucosa - Nose SARS-CoV-2, Influenza & RSV (PCR) - Final Radiography Diagnostic Testing: Radiology Impression Brain MRI 05/27/24 09:00 IMPRESSION: 1. No acute abnormality. 2. Mild patchy deep white matter signal alterations, which is most commonly seenwith chronic ischemic microangiopathy. Reading Location: [facility] Rhythm Strip Rhythm Strip: Sinus Rhythm Rate: 95 Ectopy: None Physical Exam Const Constitutional Narrative: Intubated, sedated and mechanically ventilated. HEENT normocephalic and head/scalp atraumatic Mouth: endotracheal tube in place and OG tube in place Eyes EOMs intact bilaterally and conjunctivae normal Neck supple General: trachea midline Chest inspection of chest normal Resp Auscultation: diminished lung sounds; Negative for rales, rhonchi or wheezes Cardio regular rate and regular rhythm GI normal to inspection, nondistended, normoactive bowel sounds Extremity General Extremity: Negative for clubbing Skin General Skin Exam: venous stasis and dermatitis Neuro Sensorium / Orientation: sedated on vent Charges/Coding Procedures Hospitalists Procedures: [id number] Critical Care 1st Hr 05/28/24 1000 <Electronically signed by Obed Garcia DO> Cosigner Signature (if applicable): CC: ~ Signed [facility] Work Phone: [phone] Consult note Author Soraida Elam [facility] Note Date/Time May 27, 2024 6:4 7pm [facility] Medical Records Department [address] [place] [id number] Consultation - Nephrology 05/26/24 1109 MR#: [id number] Acct: [id number] Name: TONY ARIZA Rep #:[id number] : 1960 64 From: Soraida HERNANDEZ PCP: MARY Chi Status: ADM IN Location: ICU ICU04-1 Documented by User: MARY Warren 05/26/24 11:21 Assessment & Plan Assessment/Plan (1) Hypernatremia: (2) NILESH (acute kidney injury): PLAN: Plan 64-year-old male with past medical history significant for COPD, bipolar and schizophrenia who presented emergency room with complaints of shortness of breath admitted for acute hypoxic respiratory failure and now on ventilator support. Nephrology consulted in view of rising creatinine and patient with history of lithium use (home dose 600 mg daily). Reviewed past serum creatininetrends and baseline creatinine has been ranging around 1.1 to 1.4 mg/dL. 12/13/2023 serum creatinine 1.33, 04/21/2024 creatinine 1.48. On admission creatinine 1.30, serum creatinine peaked 1.54 yesterday and today his creatinineis 1.53. Serum bicarb and potassium normal. [place] level on admission normal at 1.01. Quite possibly patient has component of CKD given long history of lithium use. Slight fluctuation in serum creatinine likely from hemodynamics and hypotension with poor renal perfusion. Blood pressures have improved, patient is not on any IV pressors at this point. Urinalysis 30 protein, no RBC,urine protein creatinine ratio 347 mg/g. Urine sodium 43. Doubt obstructive component as patient does have indwelling Greer with adequate urine output. Last chest x-ray from admission showed some mild congestion. Patient is receiving free water flushes 300 mL every 4 hours and is also on D5W, sodium didimprove slightly. His lithium dose was decreased from 600mg to 300mg daily. Ifhaving difficult time extubating patient from a fluid standpoint okay to give diuretics. Will continue monitor creatinine trends. Patient is net negative sofar 571 mL for this admission. Urine output daily around 2.5 L. 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 Further orders forthcoming as hospitalization evolves, thank you for allowing us to participate in the care of Mr. Ariza. Assessment and plan reviewed Dr. Gamez. HPI Consult Data Date of Consult: 05/26/24 HPI Narrative HPI Narrative: TONY ARIZA, is a 64 M with past medical history significant for bipolar schizophrenia, COPD, chronic venous stasis dermatitis, dysphagia and debility who was brought to the emergency room on May 23 for evaluation of altered mental status. Brain CT did not show any acute process. Chest x-ray mild congestion. Patient was admitted for acute respiratory failure with hypoxia andhypercapnia. Patient was intubated. Nephrology consulted for evaluation of elevated creatinine and patient with history of lithium use. Information is gathered from the chart. Reviewing past creatinine trend baseline creatinine likely ranging around 1.1 to 1.4 mg/dL. Patient's creatinine was 1.30 on admission and today his creatinine is 1.53 mg/dL. Also to note sodium was 131 on admission, peaked 152 yesterday and today his sodium is 150. [facility] Medical History Hypercarbia Aspiration pneumonia Hypoxemia GERD (gastroesophageal reflux disease) Sepsis Tobacco abuse Schizophrenia COPD exacerbation Bipolar disorder Home Medications ?Medication ?Instructions ?Recorded ?Last Taken ?Type olanzapine 10 mg tablet 10 mg PO DAILY 02/18/15 Unkn own History omeprazole 20 mg capsule,delayed 20 mg PO BID 02/18/15 Unknown History release spironolactone 25 mg tablet 25 mg PO DAILY 02/18/15 Un known History fluphenazine decanoate 25 mg/mL 25 mg IM Q14D PARANOID 07/29/16 Unknown History injection solution SCHIZOPHRENIA montelukast 10 mg tablet 10 mg PO DAILY 05/02/18 Unkn own History olanzapine 20 mg tablet (Zyprexa) 20 mg PO QHS 9 Unknown History omega-3 fatty acids-fish oil 300 2 capsule PO BID defi ciency 05/02/18 10/29/23 History mg-1,000 mg capsule simvastatin 20 mg tablet (Zocor) 20 mg PO QHS 05/02/18 Unknown History amlodipine 5 mg tablet 5 mg PO DAILY bp 03/22/23 Un known History ammonium lactate 12 % topical cream 1 applic topical B ID skin 10/30/23 10/29/23 History irritation multivitamin (Daily Multi-Vitamin 1 tab PO DAILY repla cement 12/09/23 Unknown History tablet) acetaminophen 325 mg tablet 650 mg PO Q4H PRN fever or pain 05/23/24 Unknown History acetaminophen 650 mg rectal 650 mg AZ Q4H PRN pain Unknown History suppository aluminum-mag hydroxide-simethicone 30 ml PO Q4H PRN in digestion 05/23/24 Unknown History 400 mg-400 mg-40 mg/5 mL oral susp (Mintox Maximum Strength) amoxicillin 875 mg-potassium 1 tab PO Q12H 05/23/24 Un known History clavulanate 125 mg tablet bisacodyl 10 mg rectal suppository 10 mg AZ DAILY PRN CONSTIPATION 05/23/24 Unknown History cholecalciferol (vitamin D3) 50 50 mcg PO QHS SUPPLEME NT 05/23/24 Unknown History mcg (2,000 unit) tablet (D3 DOTS) lithium carbonate 600 mg capsule 600 mg PO QHS BIPOLAR 05/23/24 Unknown History magnesium hydroxide 400 mg/5 mL 30 ml PO DAILY PRN con stipation 05/23/24 Unknown History oral suspension (Dulcolax (magnesium hydroxide)) melatonin 5 mg tablet 5 mg PO QHS 05/23/24 Unknown History menthol 10 % topical cream 1 applic topical Q12H PRN p ain 05/23/24 Unknown History (Biofreeze (menthol)) sodium phosphates 19 gram-7 118 ml AZ BID PRN constipa tion 05/23/24 Unknown History gram/118 mL enema (Fleet Enema) trazodone 50 mg tablet 50 mg PO QHS sleep 05/23/24 Unknown History Allergy/AdvReac Type Severity Reaction Status Date / Time codeine AdvReac Upset Verified 12/08/23 16:08 Stomach haloperidol (From Haldol) AdvReac Abd Verified 12/08/23 16:08 cramps/diarrhea haloperidol lactate (From AdvReac Abd Verified 12/08/23 16:08 Haldol) cramps/diarrhea ziprasidone AdvReac Unknown Verified 12/08/23 16:08 Family History Mother Diabetes Surgical History S/P right knee arthroscopy S/P laparoscopic cholecystectomy History of esophagogastroduodenoscopy (EGD) S/P bilateral inguinal hernia repair Social History Smoking Status: Current every day smoker tobacco type: cigarettes ROS ROS Narrative Unable to obtain Physical Exam Narrative Intubated on ventilator support No apparent distress S1, S2, RRR Lung sounds clear anteriorly, no wheezes or rales noted Abdomen soft, rounded Trace nonpitting edema bilateral lower legs with severe venous stasis dermatitisnoted bilateraly Indwelling Greer with clear yellow urine in bag Lab / Micro Data 05/27/24 05:30 05/27/24 05:30 Labs: Laboratory Results - last 24 hr 05/25/24 13:30: Urine Color Yellow, Urine Clarity Clear, Urine pH 7.0, Ur Specific [place] 1.005, Urine Protein 30 H, Urine Glucose (UA) Normal, Urine Ketones Negative, Urine Occult Blood 25 H, Urine Nitrite Negative, Urine Bilirubin Negative, Urine Urobilinogen Normal, Ur Leukocyte Esterase 25 H, UrineRBC 0 SEEN, Urine WBC 0 SEEN, Ur Squamous Epith Cells 0 SEEN, Urine Bacteria 0 SEEN, Urine Mucus 0 SEEN, Urine Osmolality 281, U Random Total Protein 17.3 H, Ur Random Sodium 43, Urine Creatinine 49.80, Protein/Creatinin Ratio 347 H, Urine Potassium 15.3, Urine Chloride < 20 05/25/24 17:00: Sodium 152 H, Potassium 4.2, Chloride 119 H, Carbon Dioxide 26.0, Anion Gap 6, BUN 30 H, Creatinine 1.48 H, Estim Creat Clear Calc 62.34, Est GFR (MDRD) Non-Af 53 L, BUN/Creatinine Ratio 20.1 H, Glucose 139 H, Calcium 8.5 05/26/24 03:30: WBC 7.8, RBC 3.79 L, Hgb 12.5 L, Hct 41.8, MCV 110.3 H, MCH 33.0H, MCHC 29.9 L, RDW Std Deviation 74.5 H, RDW Coeff of Babatunde 18.4 H, Plt Count 139L, MPV 10.4, Immature Gran % (Auto) 0.600, Neut % (Auto) 92.4 H, Lymph % (Auto) 3.8 L, Gove % (Auto) 3.1, Eos % (Auto) 0.0, Baso % (Auto) 0.1, Absolute Neuts (auto) 7.2, Absolute Lymphs (auto) 0.30 L, Nucleated RBC % 0, Differential Comment SCANNED, Anisocytosis 2+, Macrocytosis 2+, Sodium 150 H, Potassium 4.4, Chloride 118 H, Carbon Dioxide 24.6, Anion Gap 7, BUN 33 H, Creatinine 1.53 H, Estim Creat Clear Calc 60.78, Est GFR (MDRD) Non-Af 51 L, BUN/Creatinine Ratio 21.8 H, Glucose 165 H, Calcium 8.4, Total Bilirubin 0.47, AST 32, ALT 21, Alkaline Phosphatase 103, Total Protein 6.6, Albumin 3.0 L, Globulin 3.6, Albumin/Globulin Ratio 0.8 L, Random Vancomycin 13.8 Micro: Microbiology 05/23/24 11:00 Blood Culture (Wb) - Right Hand Blood Culture - Preliminary No growth in 48 hours. 05/23/24 11:00 Blood Culture (Wb) - Anticubital Right Blood Culture - Preliminary 05/23/24 12:20 Sputum, Induced/Lukens Gram Stain - Final 05/23/24 12:20 Sputum, Induced/Lukens Respiratory Culture - Final Presumptive C albicans 05/23/24 11:20 Urine, Clean Catch Urine Culture - Final Gram negative behzad ABG Data ABG results: ABG 05/25/24 05/26/24 13:00 04:46 Specimen Type ART ART Sample Site L Brach L Radial pH 7.38 7.35 Bicarbonate Actual 27.5 H 26.7 H Total CO2 29 28 Base Excess 2 1 O2 Saturation 91 L 92 L O2 % 35.0 35.0 ABG pCO2 46.6 H 48.6 H ABG pO2 62 L 67 L Leah Test N/A Respiration Rate 20 20 O2 Delivery Device Adult Vent Adult Vent Vent Mode AC AC Tidal Volume 450.0 450.0 POC PEEP 5 5 Rhythm Strip Rhythm Strip: Sinus Rhythm Rate: 95 Ectopy: None Documented by User: Dr. Trevor Strong MD 05/27/24 18:47 Assessment & Plan Assessment/Plan (1) Hypernatremia: (2) NILESH (acute kidney injury): HPI Consult Data Date of Consult: 05/27/24 [facility] Medical History Hypercarbia Aspiration pneumonia Hypoxemia GERD (gastroesophageal reflux disease) Sepsis Tobacco abuse Schizophrenia COPD exacerbation Bipolar disorder Home Medications ?Medication ?Instructions ?Recorded ?Last Taken ?Type olanzapine 10 mg tablet 10 mg PO DAILY 02/18/15 Unkn own History omeprazole 20 mg capsule,delayed 20 mg PO BID 02/18/15 Unknown History release spironolactone 25 mg tablet 25 mg PO DAILY 02/18/15 Un known History fluphenazine decanoate 25 mg/mL 25 mg IM Q14D PARANOID 07/29/16 Unknown History injection solution SCHIZOPHRENIA montelukast 10 mg tablet 10 mg PO DAILY 05/02/18 Unkn own History olanzapine 20 mg tablet (Zyprexa) 20 mg PO QHS 9 Unknown History omega-3 fatty acids-fish oil 300 2 capsule PO BID defi ciency 05/02/18 10/29/23 History mg-1,000 mg capsule simvastatin 20 mg tablet (Zocor) 20 mg PO QHS 05/02/18 Unknown History amlodipine 5 mg tablet 5 mg PO DAILY bp 03/22/23 Un known History ammonium lactate 12 % topical cream 1 applic topical B ID skin 10/30/23 10/29/23 History irritation multivitamin (Daily Multi-Vitamin 1 tab PO DAILY repla cement 12/09/23 Unknown History tablet) acetaminophen 325 mg tablet 650 mg PO Q4H PRN fever or pain 05/23/24 Unknown History acetaminophen 650 mg rectal 650 mg AZ Q4H PRN pain Unknown History suppository aluminum-mag hydroxide-simethicone 30 ml PO Q4H PRN in digestion 05/23/24 Unknown History 400 mg-400 mg-40 mg/5 mL oral susp (Mintox Maximum Strength) amoxicillin 875 mg-potassium 1 tab PO Q12H 05/23/24 Un known History clavulanate 125 mg tablet bisacodyl 10 mg rectal suppository 10 mg [place] DAILY PRN CONSTIPATION 05/23/24 Unknown History cholecalciferol (vitamin D3) 50 50 mcg PO QHS SUPPLEME NT 05/23/24 Unknown History mcg (2,000 unit) tablet (D3 DOTS) lithium carbonate 600 mg capsule 600 mg PO QHS BIPOLAR 05/23/24 Unknown History magnesium hydroxide 400 mg/5 mL 30 ml PO DAILY PRN con stipation 05/23/24 Unknown History oral suspension (Dulcolax (magnesium hydroxide)) melatonin 5 mg tablet 5 mg PO QHS 05/23/24 Unknown History menthol 10 % topical cream 1 applic topical Q12H PRN p ain 05/23/24 Unknown History (Biofreeze (menthol)) sodium phosphates 19 gram-7 118 ml AZ BID PRN constipa tion 05/23/24 Unknown History gram/118 mL enema (Fleet Enema) trazodone 50 mg tablet 50 mg PO QHS sleep 05/23/24 Unknown History Allergy/AdvReac Type Severity Reaction Status Date / Time codeine AdvReac Upset Verified 10/05/24 16:08 Stomach haloperidol (From Haldol) AdvReac Abd Verified 12/08/23 16:08 cramps/diarrhea haloperidol lactate (From AdvReac Abd Verified 12/08/23 16:08 Haldol) cramps/diarrhea ziprasidone AdvReac Unknown Verified 12/08/23 16:08 Family History Mother Diabetes Surgical History S/P right knee arthroscopy S/P laparoscopic cholecystectomy History of esophagogastroduodenoscopy (EGD) S/P bilateral inguinal hernia repair Social History Smoking Status: Current every day smoker tobacco type: cigarettes Lab / Micro Data 05/27/24 05:30 05/27/24 05:30 05/26/24 1121 <Electronically signed by Soraida HERNANDEZ> Cosigner Signature (if applicable): 05/27/24 1847 <Electronically signed by Trevor Strong MD> CC: LOGGING TRACTOR OPERATOR-C Ingris Chu~ Signed [facility] Work Phone: [phone] Progress note Author Mark Gonzalez [facility] Note Date/Time May 27, 2024 1:1 2pm [facility] Medical Records Department [address] [place] [id number] Progress Note - Hospitalist 05/27/24 0656 MR#: [id number] Acct: [id number] Name: TONY ARIZA Gabby Rep #:[id number] : 1960 64 From: Mark Gonzalez DO PCP: MARY Chi Status: ADM IN Location: ICU ICU04-1 Reason for Visit Reason for Visit: Diagnoses Hyperosmolality and hypernatremia (05/23/24) Metabolic encephalopathy (05/23/24) Unspecified diastolic (congestive) heart failure (05/23/24) Venous insufficiency (chronic) (peripheral) (05/23/24) Chronic obstructive pulmonary disease with (acute) exacerbation (05/23/24) Acute respiratory failure with hypoxia (05/23/24) Acute respiratory failure with hypercapnia (05/23/24) Subjective Subjective Had odd episodes last night concerning for seizure. Again, would look up, but eyes would respond to threat. Objective Data Objective Data Vital Signs: Vital Signs Temp Pulse Resp BP Pulse Ox O2 Del Method O2 Flow Rate 36.6 C 49 L 20 H 94/50 L 98 Mechanical Ventilator 35 05/27/24 04:00 05/27/24 06:00 05/27/24 06:00 05/27/24 06:00 05/27/24 06:00 05/27/24 06:00 05/25/24 15:30 FiO2 30 05/27/24 06:00 Oxygen Flow Rate (L/min) 35 Oxygen Delivery Method Mechanical Ventilator Weight: 112 kg Body Mass Index (BMI) 37.4 Intake & Output: Intake and Output for Last 24 Hours 05/25/24 05/26/24 05/27/24 23:59 23:59 23:59 Intake Total 2798.07 / 3126.57 7425.19 / 7739.39 1866.44 / 1866.44 Output Total 2550 / 3300 6725 / 6725 900 / 900 Balance 248.07 / -173.43 700.19 / 1014.39 966.44 / 966.44 Lab / Micro Data 05/27/24 05:30 05/27/24 05:30 Labs: Laboratory Results - last 24 hr 05/27/24 05:30: WBC 8.2, RBC 3.97 L, Hgb 13.1, Hct 43.4, MCV 109.3 H, MCH 33.0 H, MCHC 30.2 L, RDW Std Deviation 74.0 H, RDW Coeff of Bbaatunde 18.2 H, Plt Count 128 L, MPV 10.1, Immature Gran % (Auto) 0.500, Neut % (Auto) 80.8 H, Lymph % (Auto) 11.8 L, Gove % (Auto) 6.4, Eos % (Auto) 0.4, Baso % (Auto) 0.1, Absolute Neuts (auto) 6.6, Absolute Lymphs (auto) 0.96, Nucleated RBC % 0.2, Sodium 151 H, Potassium 4.5, Chloride 118 H, Carbon Dioxide 26.0, Anion Gap 7, BUN 38 H, Creatinine 1.53 H, Estim Creat Clear Calc 60.78, Est GFR (MDRD) Non-Af 51 L, BUN/Creatinine Ratio 24.5 H, Glucose 105 H, Calcium 8.5, Total Bilirubin 0.52, AST 36, ALT 29, Alkaline Phosphatase 106, Total Protein 6.7, Albumin 3.1 L, Globulin 3.6, Albumin/Globulin Ratio 0.9 Micro: Microbiology 05/23/24 11:00 Blood Culture (Wb) - Right Hand Blood Culture - Preliminary No growth in 48 hours. 05/23/24 11:00 Blood Culture (Wb) - Anticubital Right Blood Culture - Preliminary 05/23/24 12:20 Sputum, Induced/Lukens Gram Stain - Final 05/23/24 12:20 Sputum, Induced/Lukens Respiratory Culture - Final Presumptive C albicans 05/23/24 11:20 Urine, Clean Catch Urine Culture - Final Gram negative behzad 05/23/24 11:20 Mucosa - Nose SARS-CoV-2, Influenza & RSV (PCR) - Final ABG Data ABG results: ABG 05/27/24 05:30 Specimen Type ART Sample Site R Radial pH 7.39 Bicarbonate Actual 29.5 H Total CO2 31 Base Excess 5 H O2 Saturation 91 L O2 % 30.0 ABG pCO2 48.5 H ABG pO2 64 L Leah Test Positive Respiration Rate 20 O2 Delivery Device ET Tube Vent Mode AC Tidal Volume 450.0 POC PEEP 5 Rhythm Strip Rhythm Strip: Sinus Rhythm Rate: 95 Ectopy: None Physical Exam Const Constitutional Narrative: intubated sedated. Opens eyes to voice and looked directly at me then began looking up, but could not be adjust back to me. Did blink to threat bilaterally.No icterus. Resp normal respiratory effort, no retractions, no use of accessory muscles and clearto auscultation bilaterally Resp Narrative: coarse BS bilaterally. Cardio regular rate, regular rhythm, S1 normal heart sound and S2 normal heart sound GI normal to inspection, nondistended, normoactive bowel sounds, soft to palpation,non-tender and non-distended Skin Skin Narrative: venous stasis changes to bilateral LE. Neuro Neuro Narrative: 10-beat clonus on right, 7-beat clonus on left. Assessment & Plan Assessment/Plan (1) Acute respiratory failure with hypoxia and hypercapnia: PLAN: Intubated. 2/2 COPD exacerbation + CHF Wean ventilator as able. Pip/tazo and vancomycin (2) COPD with acute exacerbation: PLAN: BDs and methylprednisolone (3) Metabolic encephalopathy: PLAN: Toxic metabolic encephalopathy 2/2 CO2 narcosis plus underlying psychiatric history. Plus, psychiatric medications. [place] level WNL on admission. Given concern for DI, it has been discontinued. Will dc olanzapine, though it is unclear if he is actually experiencing extrapyramidal symptoms, somnolence from it; until further clarification of his mental status changes, will discontinue for now. EEG showed severe diffuse encephalopathy. No epileptiform discharges. Pt had sedation holiday on 05/27 and was very agitated and eyes deviated to left.MRI brain ordered. Await further neurology input. Unclear if he needs 24-hr EEG. (4) Hypernatremia: PLAN: ongoing. concern for DI. on D5W with free water flushes via PEG. Check urine osm may need desmopressin. DW nephrology, will DC furosemide. (5) (HFpEF) heart failure with preserved ejection fraction: PLAN: acute. Likely due to IVF for hypernatremia. started furosemide 05/26, discontinued 05/27. PLAN: Plan Chronic conditions: * Venous stasis dermatitis * schizophrenia * obesity class I VTE prophylaxis: enoxaparin. Charges/Coding Visit Charges Inpatient E&M: 27826 Subs Hosp L3 05/27/24 1312 <Electronically signed by Mark Gonzalez DO> Cosigner Signature (if applicable): CC: ~ Signed [facility] Work Phone: [phone] Progress note Author Ezekiel Orr [facility] Note Date/Time May 27, 2024 11: 56am [facility] Medical Records Department [address] [place] [address] Progress Note - 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 05/27/24 1108 MR#: [id number] Acct: [id number] Name: TONY ARIZA Rep #:[id number] : 1960 64 From: Ezekiel Pierre PCP: Ingris Chu, LOGGING TRACTOR OPERATOR-C Status: ADM IN Location: ICU ICU04-1 Objective Data Objective Data Vital Signs: Vital Signs Last response 3 Temperature 36.6 C 05/27/24 08:00 Temperature Source Temporal 05/27/24 08:00 Pulse Rate 59 L 05/27/24 10:26 Pulse Strength Weak (1+) 05/27/24 07:33 Respiratory Rate 20 H 05/27/24 10:26 Respiratory Effort Mechanically Ventilated 05/27/24 08:00 Respiratory Depth Normal 05/27/24 08:00 Respiratory Pattern Normal 05/27/24 08:00 Blood Pressure 128/68 H 05/27/24 09:50 Blood Pressure Mean 88 05/27/24 09:50 Blood Pressure Source Monitor 05/27/24 09:50 Blood Pressure Position Supine 05/27/24 09:50 Blood Pressure Location Left Arm 05/27/24 09:50 Pulse Ox 97 05/27/24 10:26 Oxygen Delivery Method Mechanical Ventilator 05/27/24 09:50 Oxygen Flow Rate (L/min) 35 05/25/24 15:30 Fraction of Inspired Oxygen (FIO2) 30 05/27/24 10:26 I&O: I&O Last 24 Hours 3 05/26/24 05/26/24 05/27/24 11:59 23:59 11:59 Intake Total 3208.79 / 7739.39 4216.40 / 7739.39 2546.64 / 2546.64 Output Total 2275 / 6725 4450 / 6725 2350 / 2350 Balance 933.79 / 1014.39 -233.60 / 1014.39 196.64 / 196.64 I&O: Total Stay 3 05/23/24 10:37 thru 05/27/24 10:51 Intake Total 23047.47 Output Total 89159 Balance -834.53 Current Meds Ordered / Administered: Current meds ordered / Administered 3 Generic Name Dose Route Start Last Admin Trade Name Freq PRN Reason Stop Dose Admin Acetaminophen 650 mg 05/23/24 21:06 Acetaminophen 650 Mg/20 Ml Udc GT Q6H PRN PRN Pain 1-10 Or Fever>100.7 Albuterol/Ipratropium 3 ml 05/23/24 19:30 05/27/24 07:00 Ipratropium/Albuterol Sulfate 3 Ml Ampul.Neb INHALATION 3 ml Q6H.RT JUSTIN Administration Atorvastatin Calcium 10 mg 05/23/24 22:00 05/26/24 21:17 Atorvastatin Calcium 10 Mg Tablet GT 10 mg QHS JUSTIN Administration Budesonide 0.5 mg 05/26/24 10:00 05/27/24 07:00 Budesonide Respules 0.5 Mg/2 Ml Ampul.Neb. INHALATION 0.5 mg Q12H.RT JUSTIN Administration Chlorhexidine Gluconate 15 ml 05/24/24 10:00 05/27/24 07:37 Chlorhexidine 15 Ml PO 15 ml BID JUSTIN Administration Chlorhexidine Gluconate 1 each 05/25/24 10:00 05/27/24 07:37 Chlorhexidine Gluc 2% Cloth 1 Each Towelette TOPICAL 1 each DAILY JUSTIN Administration Cholecalciferol 50 mcg 05/23/24 22:00 05/26/24 21:17 Cholecalciferol (Vit D3) 25 Mcg Tablet (1,000 Units) GT 50 mcg QHS JUSTIN Administration Enoxaparin Sodium 40 mg 05/24/24 10:00 05/27/24 07:38 Enoxaparin 40 Mg/0.4 Ml Syringe SC 40 mg DAILY JUSTIN Administration Furosemide 40 mg 05/26/24 18:00 05/26/24 17:48 Furosemide 40 Mg/4 Ml Vial IV 40 mg BIDLX JUSTIN Administration Protocol Propofol 1,000 mg in 100 mls @ 13.44 mls/hr 05/23/24 11:35 05/27/24 09:00 Diprivan CONT INF 20 mcg/kg/min .Q7H27M JUSTIN 13.4 mls/hr Titration Protocol 20 MCG/KG/MIN Fentanyl 100 mls @ 5 mls/hr 05/23/24 12:00 05/27/24 09:00 CONT INF 100 mcg/hr UD JUSTIN 10 mls/hr Titration Protocol 50 MCG/HR Pantoprazole Sodium 40 mg/ 110 mls @ 330 mls/hr 05/23/24 22:00 05/27/24 08:13 Sodium Chloride IV Infused Q12 JUSTIN Infusion Vancomycin IV-PHARMACY TO DOSE 500 mls @ 250 mls/hr 05/23/24 18:16 1 each/ Sodium Chloride IV X1 PRN Rx to Dose Protocol Sodium Chloride 100 mls @ 15 mls/hr 05/23/24 20:03 05/25/24 20:59 IV 0 mls/hr .Q6H40M PRN Infusion Saline Flush Sodium Chloride 100 mls @ 15 mls/hr 05/23/24 20:03 05/24/24 12:46 IV Infused .Q6H40M PRN Infusion Additional IVPB Infusion Enteral Nutritional Formula 1,000 mls @ 50 mls/hr 05/24/24 17:40 05/26/24 21:18 Vital Af 1.2 Colin Liquid GT 50 mls/hr .Q20H JUSTIN Administration Dexmedetomidine HCl 1,000 mcg/ 250 mls @ 14 mls/hr 05/24/24 23:45 05/27/24 04:41 Sodium Chloride CONT INF Not Given .A92H15D JUSTIN Protocol 0.5 MCG/KG/HR Vancomycin HCl 1,000 mg in 200 mls @ 200 mls/hr 05/26/24 06:00 05/27/24 07:42 Vancomycin IV Infused Q12H JUSTIN Infusion Ampicillin Sodium/Sulbactam 112 mls @ 150 mls/hr 05/26/24 22:00 05/27/24 06:20 Sodium 3 gm/ Sodium Chloride IV Infused Q8 JUSTIN Infusion Methylprednisolone Sodium Succinate 40 mg 05/27/24 10:00 05/27/24 07:39 Methylprednisolone Sod Succ 40 Mg/Ml Vial IV 40 mg DAILY JUSTIN Administration Midazolam HCl 5 mg 05/27/24 08:19 05/27/24 09:30 Midazolam 2 Mg/2 Ml Syringe IV 5 mg Q30M PRN Administration AGITATION Montelukast Sodium 10 mg 05/24/24 10:00 05/27/24 07:39 Montelukast 10 Mg Tablet GT 10 mg DAILY JUSTIN Administration Olanzapine 10 mg 05/24/24 10:00 05/27/24 07:39 Olanzapine 10 Mg Tablet GT 10 mg DAILY JUSTIN Administration Protocol Olanzapine 20 mg 05/23/24 22:00 05/26/24 21:17 Olanzapine 10 Mg Tablet GT 20 mg QHS JUSTIN Administration Ondansetron HCl 4 mg 05/23/24 18:16 Ondansetron 4 Mg/2 Ml Vial IV Q8H PRN PRN NAUSEA/VOMITING Polyethylene Glycol 17 gm 05/26/24 22:00 05/27/24 07:38 Polyethylene Glycol 3350 17 Gm Packet PO 17 gm DAILY JUSTIN Administration Quetiapine Fumarate 50 mg 05/26/24 14:00 05/27/24 05:33 Quetiapine 25 Mg Tablet NG 50 mg TID JUSTIN Administration Protocol Senna/Docusate Sodium 2 tablet 05/26/24 22:00 05/27/24 07:38 Senna/Docusate Sodium 1 Tablet PO 2 tablet BID JUSTIN Administration Sodium Chloride 10 - 40 ml 05/23/24 17:52 05/27/24 05:32 0.9% Saline Lock 10 Ml Syringe IV 20 ml UD PRN Administration SALINE FLUSH Sodium Chloride 10 - 40 ml 05/23/24 20:03 0.9% Saline Lock 10 Ml Syringe IV UD PRN SALINE FLUSH Vancomycin Protocol 1 lab 05/27/24 16:30 Vancomycin Trough/Random Due MC 05/27/24 18:30 DAILY JUSTIN Lab / Micro Data 05/27/24 05:30 05/27/24 05:30 Labs: Laboratory Results - last 24 hr 05/27/24 05:30: WBC 8.2, RBC 3.97 L, Hgb 13.1, Hct 43.4, MCV 109.3 H, MCH 33.0 H, MCHC 30.2 L, RDW Std Deviation 74.0 H, RDW Coeff of Babatunde 18.2 H, Plt Count 128 L, MPV 10.1, Immature Gran % (Auto) 0.500, Neut % (Auto) 80.8 H, Lymph % (Auto) 11.8 L, Gove % (Auto) 6.4, Eos % (Auto) 0.4, Baso % (Auto) 0.1, Absolute Neuts (auto) 6.6, Absolute Lymphs (auto) 0.96, Nucleated RBC % 0.2, Sodium 151 H, Potassium 4.5, Chloride 118 H, Carbon Dioxide 26.0, Anion Gap 7, BUN 38 H, Creatinine 1.53 H, Estim Creat Clear Calc 60.78, Est GFR (MDRD) Non-Af 51 L, BUN/Creatinine Ratio 24.5 H, Glucose 105 H, Calcium 8.5, Total Bilirubin 0.52, AST 36, ALT 29, Alkaline Phosphatase 106, Total Protein 6.7, Albumin 3.1 L, Globulin 3.6, Albumin/Globulin Ratio 0.9 05/27/24 07:30: Urine Osmolality 173 ABG Data ABG results: ABG 05/27/24 05:30 Specimen Type ART Sample Site R Radial pH 7.39 Bicarbonate Actual 29.5 H Total CO2 31 Base Excess 5 H O2 Saturation 91 L O2 % 30.0 ABG pCO2 48.5 H ABG pO2 64 L Leah Test Positive Respiration Rate 20 O2 Delivery Device ET Tube Vent Mode AC Tidal Volume 450.0 POC PEEP 5 Rhythm Strip Rhythm Strip: Sinus Rhythm Rate: 95 Ectopy: None Imaging Radiology Impression Brain MRI 05/27/24 09:00 IMPRESSION: 1. No acute abnormality. 2. Mild patchy deep white matter signal alterations, which is most commonly seenwith chronic ischemic microangiopathy. Reading [facility] Assessment and Plan . Assessment and plan: Pt seen and examined. Chart and data reviewed. He remains sedated w/ propofol and fentanyl. Reported episodes w/ some concern for seizure activity. Spot EEG noted - no seizure activity. MRI thisam - SVOD but NAP noted. He did receive IVP versed to facilitate the study. Ongoing renal insufficiency and hypernatremia. Nephrology opinion noted. MV reviewed - stable and modest requirement. PE: General: morbidly obese acute on chronically ill appearing male; +MV HEENT: anicteric Sclera; + ETT, nl nose; supple neck, no masses Cardiovascular: Regular Rate and Rhythm; No murmurs, rubs, gallops; no displacedPMI Respiratory: diminished; no crackles, wheezes, or rhonchi Abdominal: Non-tender; Non distended; hypoBS x 4; No Hepatosplenomegaly Extremities: Warm, extensive LE wounds to feet/toes and chronic venous stasis dermatitis; No clubbing, cyanosis; capillary refill < 2 sec Neurological: sedated and responsive but easily agitated A/P: #Acute hypoxemic respiratory failure: intubated primarily for airway protection;cont MV; settings reviewed/adjusted; SAT/SBT as tolerated but limited due to mentation/agitation #Acute toxic metabolic encephalopathy: CT head no acute abnormalities; UDS/UTox neg; continuing home lithium and olanzapine via NGT; added scheduled seroquel;MRI as above #COPD exacerbation: cont nebs + quickly wean steroids off - stop steroids today #B/L LE wounds (extensive to feet) & venous stasis dermatitis with ?cellulitis: defer ABX to ID team #NILESH vs CKD: nonoliguric #Hypernatremia: defer to nephrology - needs additional free water #Active tobacco abuse: counseling re: cessation when appropriate #Chronic dysphagia: ST F/U when appropriate #Schizophrenia: cont home meds #Chronic debility: PT/OT when appropriate TFs as tolerated + free water LMWH, PPI Very guarded prognosis Critical Care Time: 50 min The entirety of this encounter was done via Telemedicine 05/27/24 1156 <Electronically signed by Ezekiel Orr MD> Cosigner Signature (if applicable): CC: ~ Signed [facility] Work Phone: [phone] Progress note Author Mark Gonzalez [facility] Note Date/Time May 26, 2024 4:2 4pm [facility] Medical Records Department [address] [place] [address] Progress Note - Hospitalist 05/26/24710 MR#: [id number] Acct: [id number] Name: TONY ARIZA Rep #:[id number] : 1960 64 From: Mark Gonzalez DO PCP: MARIAN ChiC Status: ADM IN Location: ICU ICU-1 Reason for Visit Reason for Visit: Diagnoses Venous insufficiency (chronic) (peripheral) (05/23/24) Acute respiratory failure with hypoxia (05/23/24) Acute respiratory failure with hypercapnia (05/23/24) Subjective Subjective Still on the vent. Gets agitated very easily. Seizure-like activity noted by nursing yesterday. Objective Data Objective Data Vital Signs: Vital Signs Temp Pulse Resp BP Pulse Ox O2 Del Method O2 Flow Rate 36.9 C 67 21 H 109/52 L 97 Mechanical Ventilator 35 05/26/24 06:00 05/26/24 06:00 05/26/24 06:00 05/26/24 06:00 05/26/24 06:00 05/26/24 06:00 05/25/24 15:30 FiO2 35 05/26/24 06:00 Oxygen Flow Rate (L/min) 35 Oxygen Delivery Method Mechanical Ventilator Weight: 112 kg Body Mass Index (BMI) 37.4 Intake & Output: Intake and Output for Last 24 Hours 05/24/24 05/25/24 05/26/24 23:59 23:59 23:59 Intake Total 1877.51 / 1976.06 2798.07 / 3126.57 2089.71 / 2089.71 Output Total 3800 / 4650 2550 / 3300 1425 / 1425 Balance -1922.49 / -2673.94 248.07 / -173.43 664.71 / 664.71 Lab / Micro Data 05/26/24 03:30 05/26/24 03:30 Labs: Laboratory Results - last 24 hr 05/25/24 07:30: WBC 7.5, RBC 4.17 L, Hgb 13.8, Hct 44.9, MCV 107.7 H, MCH 33.1 H, MCHC 30.7 L, RDW Std Deviation 72.3 H, RDW Coeff of Babatunde 18.1 H, Plt Count 138 L, MPV 10.1, Immature Gran % (Auto) 0.800, Neut % (Auto) 87.2 H, Lymph % (Auto) 5.5 L, Gove % (Auto) 6.4, Eos % (Auto) 0.0, Baso % (Auto) 0.1, Absolute Neuts (auto) 6.6, Absolute Lymphs (auto) 0.41 L, Nucleated RBC % 0, Anisocytosis RARE,Sodium 150 H, Potassium 4.6, Chloride 118 H, Carbon Dioxide 25.1, Anion Gap 7, BUN 23 H, Creatinine 1.54 H, Estim Creat Clear Calc 59.91, Est GFR (MDRD) Non-Af 51 L, BUN/Creatinine Ratio 15.1, Glucose 181 H, Calcium 8.8, Total Bilirubin 0.58, AST 22, ALT 15, Alkaline Phosphatase 97, Total Protein 7.5, Albumin 3.4, Globulin 4.1, Albumin/Globulin Ratio 0.8 L 05/25/24 08:30: Vancomycin Trough 24.5 H 05/25/24 13:30: Urine Color Yellow, Urine Clarity Clear, Urine pH 7.0, Ur Specific [place] 1.005, Urine Protein 30 H, Urine Glucose (UA) Normal, Urine Ketones Negative, Urine Occult Blood 25 H, Urine Nitrite Negative, Urine Bilirubin Negative, Urine Urobilinogen Normal, Ur Leukocyte Esterase 25 H, UrineRBC 0 SEEN, Urine WBC 0 SEEN, Ur Squamous Epith Cells 0 SEEN, Urine Bacteria 0 SEEN, Urine Mucus 0 SEEN, Urine Osmolality 281, U Random Total Protein 17.3 H, Ur Random Sodium 43, Urine Creatinine 49.80, Protein/Creatinin Ratio 347 H, Urine Potassium 15.3, Urine Chloride < 20 05/25/24 17:00: Sodium 152 H, Potassium 4.2, Chloride 119 H, Carbon Dioxide 26.0, Anion Gap 6, BUN 30 H, Creatinine 1.48 H, Estim Creat Clear Calc 62.34, Est GFR (MDRD) Non-Af 53 L, BUN/Creatinine Ratio 20.1 H, Glucose 139 H, Calcium 8.5 05/26/24 03:30: WBC 7.8, RBC 3.79 L, Hgb 12.5 L, Hct 41.8, MCV 110.3 H, MCH 33.0H, MCHC 29.9 L, RDW Std Deviation 74.5 H, RDW Coeff of Babatunde 18.4 H, Plt Count 139L, MPV 10.4, Immature Gran % (Auto) 0.600, Neut % (Auto) 92.4 H, Lymph % (Auto) 3.8 L, Gove % (Auto) 3.1, Eos % (Auto) 0.0, Baso % (Auto) 0.1, Absolute Neuts (auto) 7.2, Absolute Lymphs (auto) 0.30 L, Nucleated RBC % 0, Differential Comment SCANNED, Anisocytosis 2+, Macrocytosis 2+, Sodium 150 H, Potassium 4.4, Chloride 118 H, Carbon Dioxide 24.6, Anion Gap 7, BUN 33 H, Creatinine 1.53 H, Estim Creat Clear Calc 60.78, Est GFR (MDRD) Non-Af 51 L, BUN/Creatinine Ratio 21.8 H, Glucose 165 H, Calcium 8.4, Total Bilirubin 0.47, AST 32, ALT 21, Alkaline Phosphatase 103, Total Protein 6.6, Albumin 3.0 L, Globulin 3.6, Albumin/Globulin Ratio 0.8 L, Random Vancomycin 13.8 Micro: Microbiology 05/23/24 11:00 Blood Culture (Wb) - Right Hand Blood Culture - Preliminary No growth in 48 hours. 05/23/24 11:00 Blood Culture (Wb) - Anticubital Right Blood Culture - Preliminary 05/23/24 12:20 Sputum, Induced/Lukens Gram Stain - Final 05/23/24 12:20 Sputum, Induced/Lukens Respiratory Culture - Final Presumptive C albicans 05/23/24 11:20 Urine, Clean Catch Urine Culture - Final Gram negative behzad 05/23/24 11:20 Mucosa - Nose SARS-CoV-2, Influenza & RSV (PCR) - Final ABG Data ABG results: ABG 05/25/24 05/26/24 13:00 04:46 Specimen Type ART ART Sample Site L Brach L Radial pH 7.38 7.35 Bicarbonate Actual 27.5 H 26.7 H Total CO2 29 28 Base Excess 2 1 O2 Saturation 91 L 92 L O2 % 35.0 35.0 ABG pCO2 46.6 H 48.6 H ABG pO2 62 L 67 L Leah Test N/A Respiration Rate 20 20 O2 Delivery Device Adult Vent Adult Vent Vent Mode AC AC Tidal Volume 450.0 450.0 POC PEEP 5 5 Rhythm Strip Rhythm Strip: Sinus Rhythm Rate: 95 Ectopy: None Physical Exam Narrative POCUS: Indication is for respiratory failure and edema. PLAX limited but showednormal aortic valve motion and normal, grossly, LV function. Apical view showedgrossly normal apical function. IVC visualized and did not show any significantchange with inspiratory versus expiratory. Pleural views showed B-lines left laterally. Normal lung sliding noted throughout the other kirby. Const Constitutional Narrative: intubated/sedated. HEENT head/scalp atraumatic and moist oral mucous membranes Resp normal respiratory effort, no retractions, no use of accessory muscles and clearto auscultation bilaterally Cardio regular rate, regular rhythm, S1 normal heart sound and S2 normal heart sound Extremity normal to inspection, full ROM and no clubbing, cyanosis or edema Neuro oriented x3, CN's II-XII intact bilaterally, moves all extremities, no focal motor deficits and no sensory deficits noted Sensorium / Orientation: awake and alert Assessment & Plan Assessment/Plan (1) Acute respiratory failure with hypoxia and hypercapnia: PLAN: Intubated. 2/2 COPD exacerbation + CHF Wean ventilator as able. Pip/tazo and vancomycin (2) COPD with acute exacerbation: PLAN: BDs and methylprednisolone (3) Metabolic encephalopathy: PLAN: 2/2 CO2 narcosis plus underlying psychiatric history [place] level WNL on admission. EEG ordered given concern for seizure on 05/25 (4) Hypernatremia: PLAN: ongoing. decrease free fluid. (5) (HFpEF) heart failure with preserved ejection fraction: PLAN: acute add furosemide PLAN: Plan Chronic conditions: * Venous stasis dermatitis * schizophrenia * obesity class I VTE prophylaxis: enoxaparin. Charges/Coding Visit Charges Inpatient E&M: 11845 Subs Hosp L3 05/26/24 1322 <Electronically signed by Mark Gonzalez DO> Cosigner Signature (if applicable): CC: ~ Signed ADDENDUM by Dr. Mark Gonzalez DO on 05/26/24 at 1624 Addendum Still with copious urine output. Nephrology concerned about DI possibly 2/2 lithium. DC lithium (though the level was not toxic earlier) given concern aboutDI. Sedation holiday was performed and pt was tachypneic and eyes deviated to the left. Will check MRI brain. EEG showed severe diffuse encephalopathy. No epileptiform discharges noted. 05/26/24 1624<Electronically signed by Mark Gonzalez DO> Cosigner Signature (if applicable): cc: ~* Signed [facility] Work Phone: [phone] Progress note Author Glendy Tomlin [facility] Note Date/Time May 26, 2024 3:3 8pm [facility] Medical Records Department [address] [place] [id number] Progress Note - Neurology 05/26/24 1523 MR#: [id number] Acct: [id number] Name: TONY ARIZA Gabby Rep #:[id number] : 1960 64 From: Glendy Tomlin MD PCP: MARY Chi Status: ADM IN Location: ICU ICU04-1 Assessment and Plan: Neuro Assessment/Plan 64 yo man with COPD, extensive psych history including schizophrenia, dysphagiaand debility, presented 05/23 from assisted living with altered mental status inthe setting of COPD exacerbation, Hypoxia and SpO2 60s%, PH 7.27 with hypercarbia, NILESH (cr 1.48) on CKD, was placed on BiPAP and remained unable to protect airways requiring intubation. He has been very agitated,? did not tolerate precedex due to bradycardia and on-going agitation, on Propofol. CTH with on acute findings, Utox negative. On home lithium and olanzapine. EEG with no fidnigns to suggest seizures or epileptic activity. Na 131 to 152 in 48 hrs UA growing gram negative rods. ID following, concern for contaminant, but on Abxfor now Likely toxic metabolic with medication effect, ?underlying infection. Continue to wean as tolerated [ ] Obtain MRI brain to rule out acute pathology We will follow I personally attended this patient and spent a total time of 40 minutes evaluating this patient including clinical assessment, review of chart, medical history imaging, and determining appropriate treatment and workup. Subject: Neurology Subjective Per nurse, stopped sedation this morning, and within few minutes he attmepted tosit up in bed, remain on Prop and Fent EEG Results Procedure Details EEG Procedure Details: Procedure Orders GENERAL PROCEDURE [[id number]] ordered by Glendy Tomlin MD at 05/26/24 1520 Summary: EEG Report Inpatient routine EEG report performed at [facility] Study start time: 0941 am on 05/26/24 End Time: 1002 am on 05/26/24 History: Rule out seizures Indication: Rule out seizures Technical Description: This is a 18-channel digital EEG recording with time- locked video and single-channel electrocardiogram. Electrodes are placed according to the 10 to 20 International System. The patient was monitored continuously by EEG technicians and EEG recording was reviewed intermittently with annotations to the EEG record. Portions of this record are reviewed using bandpass filters of 1 to 70 Hz and sensitivity of 7mV/mm. EEG DESCRIPTION Background: This recording was obtained during sleep like state while patient is on Propofol. There was generalized continuous slowing of delta activity intermixed with theta frequencies. Triphasic waves were seen infrequently. No posterior dominant rhythm was seen. Activation Procedures: Photic stimulation was performed. No abnormal or epileptic activity was triggered by this procedure. Sporadic Epileptiform Discharges: none Focal slow activity: none Rhythmic or Periodic activity: none Seizures: none Patient Events: none EEG DIAGNOSIS: CLINICAL INTERPRETATION This abnormal EEG is consistent with severe diffuse encephalopathy. No epileptiform discharges or lateralizing signs were seen. Omid Tomlin MD Objective Data Objective Data Vital Signs: Vital Signs Temp Pulse Resp BP Pulse Ox O2 Del Method O2 Flow Rate 99.4 F H 57 L 20 H 106/52 L 96 Mechanical Ventilator 35 05/26/24 15:00 05/26/24 15:00 05/26/24 15:00 05/26/24 15:00 05/26/24 15:00 05/26/24 15:00 05/25/24 15:30 FiO2 30 05/26/24 15:00 Oxygen Flow Rate (L/min) 35 Oxygen Delivery Method Mechanical Ventilator Weight: 112 kg Body Mass Index (BMI) 37.4 Intake & Output: Intake and Output for Last 24 Hours 05/24/24 05/25/24 05/26/24 23:59 23:59 23:59 Intake Total 1877.51 / 1976.06 2798.07 / 3126.57 3802.36 / 3802.36 Output Total 3800 / 4650 2550 / 3300 2525 / 2525 Balance -1922.49 / -2673.94 248.07 / -173.43 1277.36 / 1277.36 Lab / Micro Data 05/26/24 03:30 05/26/24 03:30 Labs: Laboratory Results - last 24 hr 05/25/24 13:30: Urine Osmolality 281, U Random Total Protein 17.3 H, Ur Random Sodium 43, Urine Creatinine 49.80, Protein/Creatinin Ratio 347 H, Urine Potassium 15.3, Urine Chloride < 20 05/25/24 17:00: Sodium 152 H, Potassium 4.2, Chloride 119 H, Carbon Dioxide 26.0, Anion Gap 6, BUN 30 H, Creatinine 1.48 H, Estim Creat Clear Calc 62.34, Est GFR (MDRD) Non-Af 53 L, BUN/Creatinine Ratio 20.1 H, Glucose 139 H, Calcium 8.5 05/26/24 03:30: WBC 7.8, RBC 3.79 L, Hgb 12.5 L, Hct 41.8, MCV 110.3 H, MCH 33.0 H, MCHC 29.9 L, RDW Std Deviation 74.5 H, RDW Coeff of Babatunde 18.4 H, Plt Count 139 L, MPV 10.4, Immature Gran % (Auto) 0.600, Neut % (Auto) 92.4 H, Lymph % (Auto) 3.8 L, Gove % (Auto) 3.1, Eos % (Auto) 0.0, Baso % (Auto) 0.1, Absolute Neuts (auto) 7.2, Absolute Lymphs (auto) 0.30 L, Nucleated RBC % 0, Differential Comment SCANNED, Anisocytosis 2+, Macrocytosis 2+, Sodium 150 H, Potassium 4.4, Chloride 118 H, Carbon Dioxide 24.6, Anion Gap 7, BUN 33 H, Creatinine 1.53 H, Estim Creat Clear Calc 60.78, Est GFR (MDRD) Non-Af 51 L, BUN/Creatinine Ratio 21.8 H, Glucose 165 H, Calcium 8.4, Total Bilirubin 0.47, AST 32, ALT 21, Alkaline Phosphatase 103, Total Protein 6.6, Albumin 3.0 L, Globulin 3.6, Albumin/Globulin Ratio 0.8 L, Random Vancomycin 13.8 Micro: Microbiology 05/23/24 11:00 Blood Culture (Wb) - Right Hand Blood Culture - Preliminary No growth in 48 hours. 05/23/24 11:00 Blood Culture (Wb) - Anticubital Right Blood Culture - Preliminary 05/23/24 12:20 Sputum, Induced/Lukens Gram Stain - Final 05/23/24 12:20 Sputum, Induced/Lukens Respiratory Culture - Final Presumptive C albicans 05/23/24 11:20 Urine, Clean Catch Urine Culture - Final Gram negative behzad 05/23/24 11:20 Mucosa - Nose SARS-CoV-2, Influenza & RSV (PCR) - Final ABG Data ABG results: ABG 05/26/24 04:46 Specimen Type ART Sample Site L Radial pH 7.35 Bicarbonate Actual 26.7 H Total CO2 28 Base Excess 1 O2 Saturation 92 L O2 % 35.0 ABG pCO2 48.6 H ABG pO2 67 L Leah Test N/A Respiration Rate 20 O2 Delivery Device Adult Vent Vent Mode AC Tidal Volume 450.0 POC PEEP 5 Rhythm Strip Rhythm Strip: Sinus Rhythm Rate: 95 Ectopy: None Physical Exam Narrative Sedated on Prop. Intubated. 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 Ucx withless than 1k GNR. Some low grade temps here. Will narrow to vanc/unasyn for now. Will follow, thank you HPI Consult Data Date of Consult: 05/26/24 HPI Narrative Reason for Consultation: bacteremia HPI Narrative: TONY ARIZA, is a 64 M with h/o COPD, schizophrenia, taken to ED 05/23 from [facility] with acute onset altered mental status, hypoxia. Intubated in ED, admitted to icu on vanc and zosyn. Remains on vent. No fever overnight. ROS unobtainable due to mental status. [facility] Medical History Hypercarbia Aspiration pneumonia Hypoxemia GERD (gastroesophageal reflux disease) Sepsis Tobacco abuse Schizophrenia COPD exacerbation Bipolar disorder Home Medications ?Medication ?Instructions ?Recorded ?Last Taken ?Type olanzapine 10 mg tablet 10 mg PO DAILY 02/18/15 Unkn own History omeprazole 20 mg capsule,delayed 20 mg PO BID 02/18/15 Unknown History release spironolactone 25 mg tablet 25 mg PO DAILY 02/18/15 Un known History fluphenazine decanoate 25 mg/mL 25 mg IM Q14D PARANOID 07/29/16 Unknown History injection solution SCHIZOPHRENIA montelukast 10 mg tablet 10 mg PO DAILY 05/02/18 Unkn own History olanzapine 20 mg tablet (Zyprexa) 20 mg PO QHS 9 Unknown History omega-3 fatty acids-fish oil 300 2 capsule PO BID defi ciency 05/02/18 10/29/23 History mg-1,000 mg capsule simvastatin 20 mg tablet (Zocor) 20 mg PO QHS 05/02/18 Unknown History amlodipine 5 mg tablet 5 mg PO DAILY bp 03/22/23 Un known History ammonium lactate 12 % topical cream 1 applic topical B ID skin 10/30/23 10/29/23 History irritation multivitamin (Daily Multi-Vitamin 1 tab PO DAILY repla cement 12/09/23 Unknown History tablet) acetaminophen 325 mg tablet 650 mg PO Q4H PRN fever or pain 05/23/24 Unknown History acetaminophen 650 mg rectal 650 mg AZ Q4H PRN pain Unknown History suppository aluminum-mag hydroxide-simethicone 30 ml PO Q4H PRN in digestion 05/23/24 Unknown History 400 mg-400 mg-40 mg/5 mL oral susp (Mintox Maximum Strength) amoxicillin 875 mg-potassium 1 tab PO Q12H 05/23/24 Un known History clavulanate 125 mg tablet bisacodyl 10 mg rectal suppository 10 mg AZ DAILY PRN CONSTIPATION 05/23/24 Unknown History cholecalciferol (vitamin D3) 50 50 mcg PO QHS SUPPLEME NT 05/23/24 Unknown History mcg (2,000 unit) tablet (D3 DOTS) lithium carbonate 600 mg capsule 600 mg PO QHS BIPOLAR 05/23/24 Unknown History magnesium hydroxide 400 mg/5 mL 30 ml PO DAILY PRN con stipation 05/23/24 Unknown History oral suspension (Dulcolax (magnesium hydroxide)) melatonin 5 mg tablet 5 mg PO QHS 05/23/24 Unknown History menthol 10 % topical cream 1 applic topical Q12H PRN p ain 05/23/24 Unknown History (Biofreeze (menthol)) sodium phosphates 19 gram-7 118 ml AZ BID PRN constipa tion 05/23/24 Unknown History gram/118 mL enema (Fleet Enema) trazodone 50 mg tablet 50 mg PO QHS sleep 05/23/24 Unknown History Allergy/AdvReac Type Severity Reaction Status Date / Time codeine AdvReac Upset Verified 12/08/23 16:08 Stomach haloperidol (From Haldol) AdvReac Abd Verified 12/08/23 16:08 cramps/diarrhea haloperidol lactate (From AdvReac Abd Verified 12/08/23 16:08 Haldol) cramps/diarrhea ziprasidone AdvReac Unknown Verified 12/08/23 16:08 Family History Mother Diabetes Surgical History S/P right knee arthroscopy S/P laparoscopic cholecystectomy History of esophagogastroduodenoscopy (EGD) S/P bilateral inguinal hernia repair Social History Smoking Status: Current every day smoker tobacco type: cigarettes Physical Exam Const no apparent distress HEENT normocephalic and head/scalp atraumatic Eyes PERRL Neck supple and No nodes Resp normal air movement and clear to auscultation bilaterally Effort and Inspection: mechanically ventilated Cardio regular rate and regular rhythm GI soft to palpation, non-tender and non-distended Extremity General Extremity: edema Skin Skin Narrative: Mild redness BLE Neuro no focal motor deficits Lab / Micro Data Attestation: I reviewed the patient's lab results. 05/26/24 03:30 05/26/24 03:30 Labs: Laboratory Results - last 24 hr 05/25/24 13:30: Urine Osmolality 281, U Random Total Protein 17.3 H, Ur Random Sodium 43, Urine Creatinine 49.80, Protein/Creatinin Ratio 347 H, Urine Potassium 15.3, Urine Chloride < 20 05/25/24 17:00: Sodium 152 H, Potassium 4.2, Chloride 119 H, Carbon Dioxide 26.0, Anion Gap 6, BUN 30 H, Creatinine 1.48 H, Estim Creat Clear Calc 62.34, Est GFR (MDRD) Non-Af 53 L, BUN/Creatinine Ratio 20.1 H, Glucose 139 H, Calcium 8.5 05/26/24 03:30: WBC 7.8, RBC 3.79 L, Hgb 12.5 L, Hct 41.8, MCV 110.3 H, MCH 33.0H, MCHC 29.9 L, RDW Std Deviation 74.5 H, RDW Coeff of Babatunde 18.4 H, Plt Count 139L, MPV 10.4, Immature Gran % (Auto) 0.600, Neut % (Auto) 92.4 H, Lymph % (Auto) 3.8 L, Gove % (Auto) 3.1, Eos % (Auto) 0.0, Baso % (Auto) 0.1, Absolute Neuts (auto) 7.2, Absolute Lymphs (auto) 0.30 L, Nucleated RBC % 0, Differential Comment SCANNED, Anisocytosis 2+, Macrocytosis 2+, Sodium 150 H, Potassium 4.4, Chloride 118 H, Carbon Dioxide 24.6, Anion Gap 7, BUN 33 H, Creatinine 1.53 H, Estim Creat Clear Calc 60.78, Est GFR (MDRD) Non-Af 51 L, BUN/Creatinine Ratio 21.8 H, Glucose 165 H, Calcium 8.4, Total Bilirubin 0.47, AST 32, ALT 21, Alkaline Phosphatase 103, Total Protein 6.6, Albumin 3.0 L, Globulin 3.6, Albumin/Globulin Ratio 0.8 L, Random Vancomycin 13.8 Micro: Microbiology 05/23/24 11:00 Blood Culture (Wb) - Right Hand Blood Culture - Preliminary No growth in 48 hours. ABG Data ABG results: ABG 05/26/24 04:46 Specimen Type ART Sample Site L Radial pH 7.35 Bicarbonate Actual 26.7 H Total CO2 28 Base Excess 1 O2 Saturation 92 L O2 % 35.0 ABG pCO2 48.6 H ABG pO2 67 L Leah Test N/A Respiration Rate 20 O2 Delivery Device Adult Vent Vent Mode AC Tidal Volume 450.0 POC PEEP 5 Rhythm Strip Rhythm Strip: Sinus Rhythm Rate: 95 Ectopy: None 05/26/24 1524 <Electronically signed by Romeo Gallardo MD> Cosigner Signature (if applicable): CC: LOGGING TRACTOR OPERATOR-C Ingris Chu~ Signed [facility] Work Phone: [phone] Progress note Author Ezekiel Kirby [facility] Note Date/Time May 26, 2024 12: 05pm [facility] Medical Records Department [address] [place] [id number] Progress Note - 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 05/26/24 1142 MR#: [id number] Acct: [id number] Name: TONY ARIZA Rep #:[id number] : 1960 64 From: Ezekiel Pierre PCP: MARY Chi Status: ADM IN Location: ICU ICU04-1 Objective Data Objective Data Vital Signs: Vital Signs Last response 3 Temperature 37.4 C H 05/26/24 11:00 Temperature Source Core 05/26/24 11:00 Pulse Rate 61 05/26/24 11:00 Pulse Strength Weak (1+) 05/26/24 07:51 Respiratory Rate 20 H 05/26/24 11:00 Respiratory Effort Normal, Non-Labored, Mechanically Ventilated 05/26/24 08:00 Respiratory Depth Normal 05/26/24 08:00 Respiratory Pattern Normal 05/26/24 08:00 Blood Pressure 105/52 L 05/26/24 11:00 Blood Pressure Mean 69 05/26/24 11:00 Blood Pressure Source Monitor 05/26/24 11:00 Blood Pressure Position Semi-Fowlers 05/26/24 11:00 Blood Pressure Location Left Arm 05/26/24 11:00 Pulse Ox 95 05/26/24 11:00 Oxygen Delivery Method Mechanical Ventilator 05/26/24 11:00 Oxygen Flow Rate (L/min) 35 05/25/24 15:30 Fraction of Inspired Oxygen (FIO2) 30 05/26/24 11:00 I&O: I&O Last 24 Hours 3 05/25/24 05/25/24 05/26/24 11:59 23:59 11:59 Intake Total 664.80 / 3126.57 2133.27 / 3126.57 3166.57 / 3166.57 Output Total 1900 / 3300 650 / 3300 2275 / 2275 Balance -1235.20 / -173.43 1483.27 / -173.43 891.57 / 891.57 I&O: Total Stay 3 05/23/24 10:37 thru 05/26/24 11:06 Intake Total 9985.21 Output Total 18893 Balance -839.79 Current Meds Ordered / Administered: Current meds ordered / Administered 3 Generic Name Dose Route Start Last Admin Trade Name Freq PRN Reason Stop Dose Admin Acetaminophen 650 mg 05/23/24 21:06 Acetaminophen 650 Mg/20 Ml Udc GT Q6H PRN PRN Pain 1-10 Or Fever>100.7 Albuterol/Ipratropium 3 ml 05/23/24 19:30 05/26/24 07:16 Ipratropium/Albuterol Sulfate 3 Ml Ampul.Neb INHALATION 3 ml Q6H.RT JUSTIN Administration Atorvastatin Calcium 10 mg 05/23/24 22:00 05/25/24 20:27 Atorvastatin Calcium 10 Mg Tablet GT 10 mg QHS JUSTIN Administration Budesonide 0.5 mg 05/26/24 10:00 Budesonide Respules 0.5 Mg/2 Ml Ampul.Neb. INHALATION Q12H.RT JUSTIN Chlorhexidine Gluconate 15 ml 05/24/24 10:00 05/26/24 07:40 Chlorhexidine 15 Ml PO 15 ml BID JUSTIN Administration Chlorhexidine Gluconate 1 each 05/25/24 10:00 05/26/24 06:26 Chlorhexidine Gluc 2% Cloth 1 Each [place] TOPICAL 1 each DAILY JUSTIN Administration Cholecalciferol 50 mcg 05/23/24 22:00 05/25/24 20:27 Cholecalciferol (Vit D3) 25 Mcg Tablet (1,000 Units) GT 50 mcg QHS JSUTIN Administration Enoxaparin Sodium 40 mg 05/24/24 10:00 05/26/24 07:41 Enoxaparin 40 Mg/0.4 Ml Syringe SC 40 mg DAILY JUSTIN Administration Propofol 1,000 mg in 100 mls @ 13.44 mls/hr 05/23/24 11:35 05/26/24 10:34 Diprivan CONT INF 30 mcg/kg/min .Q7H27M JUSTIN 20.2 mls/hr Administration Protocol 20 MCG/KG/MIN Fentanyl 100 mls @ 5 mls/hr 05/23/24 12:00 05/26/24 09:00 CONT INF 100 mcg/hr UD JUSTIN 10 mls/hr Titration Protocol 50 MCG/HR Pantoprazole Sodium 40 mg/ 110 mls @ 330 mls/hr 05/23/24 22:00 05/26/24 08:38 Sodium Chloride IV Infused Q12 JUSTIN Infusion Piperacillin Sod/Tazobactam 50 mls @ 12.5 mls/hr 05/23/24 22:00 05/26/24 09:11 Sod 3.375 gm/ Sodium Chloride IV Infused Q8 JUSTIN Infusion Vancomycin IV-PHARMACY TO DOSE 500 mls @ 250 mls/hr 05/23/24 18:16 1 each/ Sodium Chloride IV X1 PRN Rx to Dose Protocol Sodium Chloride 100 mls @ 15 mls/hr 05/23/24 20:03 05/25/24 20:59 IV 0 mls/hr .Q6H40M PRN Infusion Saline Flush Sodium Chloride 100 mls @ 15 mls/hr 05/23/24 20:03 05/24/24 12:46 IV Infused .Q6H40M PRN Infusion Additional IVPB Infusion Enteral Nutritional Formula 1,000 mls @ 50 mls/hr 05/24/24 17:40 05/26/24 01:44 Vital Af 1.2 Colin Liquid GT 50 mls/hr .Q20H JUSTIN Administration Dexmedetomidine HCl 1,000 mcg/ 250 mls @ 14 mls/hr 05/24/24 23:45 05/26/24 07:50 Sodium Chloride CONT INF Not Given .[id number] JUSTIN Protocol 0.5 MCG/KG/HR Dextrose 1,000 mls @ 150 mls/hr 05/25/24 11:30 05/26/24 06:26 IV 05/26/24 22:00 0 mls/hr .Q6H40M JUSTIN Infusion Protocol Vancomycin HCl 1,000 mg in 200 mls @ 200 mls/hr 05/26/24 06:00 05/26/24 07:42 Vancomycin IV Infused Q12H JUSTIN Infusion [place] Carbonate 300 mg 05/25/24 22:00 05/25/24 20:27 [place] Carbonate 300mg Capsule GT 300 mg QHS JUSTIN Administration Methylprednisolone Sodium Succinate 40 mg 05/24/24 14:00 05/26/24 05:05 Methylprednisolone Sod Succ 40 Mg/Ml Vial IV 40 mg Q8 JUSTIN Administration Montelukast Sodium 10 mg 05/24/24 10:00 05/26/24 07:41 Montelukast 10 Mg Tablet GT 10 mg DAILY JUSTIN Administration Olanzapine 10 mg 05/24/24 10:00 05/26/24 07:41 Olanzapine 10 Mg Tablet GT 10 mg DAILY JUSTIN Administration Protocol Olanzapine 20 mg 05/23/24 22:00 05/25/24 20:27 Olanzapine 10 Mg Tablet GT 20 mg QHS JUSTIN Administration Ondansetron HCl 4 mg 05/23/24 18:16 Ondansetron 4 Mg/2 Ml Vial IV Q8H PRN PRN NAUSEA/VOMITING Sodium Chloride 10 - 40 ml 05/23/24 17:52 05/25/24 20:28 0.9% Saline Lock 10 Ml Syringe IV 20 ml UD PRN Administration SALINE FLUSH Sodium Chloride 10 - 40 ml 05/23/24 20:03 0.9% Saline Lock 10 Ml Syringe IV UD PRN SALINE FLUSH Vancomycin Protocol 1 lab 05/27/24 16:30 Vancomycin Trough/Random Due MC 05/27/24 18:30 DAILY JUSTIN Lab / Micro Data 05/26/24 03:30 05/26/24 03:30 Labs: Laboratory Results - last 24 hr 05/25/24 13:30: Urine Color Yellow, Urine Clarity Clear, Urine pH 7.0, Ur Specific [place] 1.005, Urine Protein 30 H, Urine Glucose (UA) Normal, Urine Ketones Negative, Urine Occult Blood 25 H, Urine Nitrite Negative, Urine Bilirubin Negative, Urine Urobilinogen Normal, Ur Leukocyte Esterase 25 H, UrineRBC 0 SEEN, Urine WBC 0 SEEN, Ur Squamous Epith Cells 0 SEEN, Urine Bacteria 0 SEEN, Urine Mucus 0 SEEN, Urine Osmolality 281, U Random Total Protein 17.3 H, Ur Random Sodium 43, Urine Creatinine 49.80, Protein/Creatinin Ratio 347 H, Urine Potassium 15.3, Urine Chloride < 20 05/25/24 17:00: Sodium 152 H, Potassium 4.2, Chloride 119 H, Carbon Dioxide 26.0, Anion Gap 6, BUN 30 H, Creatinine 1.48 H, Estim Creat Clear Calc 62.34, Est GFR (MDRD) Non-Af 53 L, BUN/Creatinine Ratio 20.1 H, Glucose 139 H, Calcium 8.5 05/26/24 03:30: WBC 7.8, RBC 3.79 L, Hgb 12.5 L, Hct 41.8, MCV 110.3 H, MCH 33.0H, MCHC 29.9 L, RDW Std Deviation 74.5 H, RDW Coeff of Babatunde 18.4 H, Plt Count 139L, MPV 10.4, Immature Gran % (Auto) 0.600, Neut % (Auto) 92.4 H, Lymph % (Auto) 3.8 L, Gove % (Auto) 3.1, Eos % (Auto) 0.0, Baso % (Auto) 0.1, Absolute Neuts (auto) 7.2, Absolute Lymphs (auto) 0.30 L, Nucleated RBC % 0, Differential Comment SCANNED, Anisocytosis 2+, Macrocytosis 2+, Sodium 150 H, Potassium 4.4, Chloride 118 H, Carbon Dioxide 24.6, Anion Gap 7, BUN 33 H, Creatinine 1.53 H, Estim Creat Clear Calc 60.78, Est GFR (MDRD) Non-Af 51 L, BUN/Creatinine Ratio 21.8 H, Glucose 165 H, Calcium 8.4, Total Bilirubin 0.47, AST 32, ALT 21, Alkaline Phosphatase 103, Total Protein 6.6, Albumin 3.0 L, Globulin 3.6, Albumin/Globulin Ratio 0.8 L, Random Vancomycin 13.8 Micro: Microbiology 05/23/24 11:00 Blood Culture (Wb) - Right Hand Blood Culture - Preliminary No growth in 48 hours. 05/23/24 11:00 Blood Culture (Wb) - Anticubital Right Blood Culture - Preliminary 05/23/24 12:20 Sputum, Induced/Lukens Gram Stain - Final 05/23/24 12:20 Sputum, Induced/[place]ukens Respiratory Culture - Final Presumptive C albicans ABG Data ABG results: ABG 05/25/24 05/26/24 13:00 04:46 Specimen Type ART ART Sample Site L Brach L Radial pH 7.38 7.35 Bicarbonate Actual 27.5 H 26.7 H Total CO2 29 28 Base Excess 2 1 O2 Saturation 91 L 92 L O2 % 35.0 35.0 ABG pCO2 46.6 H 48.6 H ABG pO2 62 L 67 L Leah Test N/A Respiration Rate 20 20 O2 Delivery Device Adult Vent Adult Vent Vent Mode AC AC Tidal Volume 450.0 450.0 POC PEEP 5 5 Rhythm Strip Rhythm Strip: Sinus Rhythm Rate: 95 Ectopy: None Assessment and Plan . Assessment and plan: Pt seen and examined. Chart and data reviewed. Currently sedated w/ propofol and fentanyl. We performed SAT - severe agitation, HTN, increased RR. He had an upward gaze and was not interactive or cooperative to any extent. Ongoing mild renal insufficiency and hypernatremia. MV reviewed - very modest requirement. PE: General: morbidly obese acute on chronically ill appearing male; +MV HEENT: anicteric Sclera; + ETT, nl nose; supple neck, no masses Cardiovascular: Regular Rate and Rhythm; No murmurs, rubs, gallops; no displacedPMI Respiratory: diminished; no crackles, wheezes, or rhonchi Abdominal: Non-tender; Non distended; hypoBS x 4; No Hepatosplenomegaly Extremities: Warm, extensive LE wounds to feet/toes and chronic venous stasis dermatitis; No clubbing, cyanosis; capillary refill < 2 sec Neurological: sedated and responsive but easily agitated A/P: #Acute hypoxemic respiratory failure: intubated primarily for airway protection;cont MV; settings reviewed/adjusted; SAT/SBT as tolerated but limited due to mentation/agitation #Acute toxic metabolic encephalopathy: CT head no acute abnormalities; UDS/UTox neg; continuing home lithium and olanzapine via NGT; add scheduled seroquel #COPD exacerbation: cont nebs + quickly wean steroids off #B/L LE wounds (extensive to feet) & venous stasis dermatitis with ?cellulitis: cont on emp vanc/Zosyn without any strong suspicion of infection, nasal MRSA positive --> de-esc Abx if Cx neg x48h and if no active infection identified; cont wound care #NILESH vs CKD: nonoliguric; cont monitor #Hypernatremia: increase D5W - 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 05/26/24 1205 <Electronically signed by Ezekiel Orr MD> Cosigner Signature (if applicable): CC: ~ Signed [facility] Work Phone: [phone] Consult note Author Deanne Hayden [facility] Note Date/Time May 26, 2024 1:1 3am [facility] Medical Records Department [address] [place] [address] Consultation - Neurology 05/25/24 1315 MR#: [id number] Acct: [id number] Name: TONY ARIZA Rep #:[id number] : 1960 64 From: Deanne Hayden MD PCP: Ingris Chu, LOGGING TRACTOR OPERATOR-C Status: ADM IN Location: ICU ICU04-1 Assessment and Plan: Neuro Assessment/Plan TONY ARIZA is a 64 M with a past medical history of schizophrenia, being evaluated by Teleneurology for acute AMS, agitation, and abnormal movements. No recent history to base AMS on. On exam, the movements are not consistent with seizure but would be concerned for over use of antipsychotics and potential NMS. Diagnosis: toxic metabolic encephalopathy Plan: - agree with lowering lithium given NILESH - correct metabolic abnormalities - hypernatremia namely - recommend CK and if elevated, trend q 8 hrs - for treatment of agitation, recommend using benzo's or VPA to avoid excessive doses of antipsychotics that could lead to NMS - EEG pending, no evidence of seizure on evalauting movement I personally attended this patient and spent a total time of 30minutes evaluating this patient including clinical assessment, review of chart, medical history imaging, and determining appropriate treatment and workup. HPI Consult Data Date of Consult: 05/26/24 HPI Narrative HPI Narrative: TONY ARIZA, is a 64 M who presented to [facility] ED on 05/23/2024 with altered mentation. Patient came from assisted living. Medical history is significant for COPD, schizophrenia, chronic venous stasis dermatitis, dysphagia and debility. Was last hospitalized here in December for acute hypoxic respiratory failure secondary to COPD exacerbation with suspected aspiration pneumonia. On arrival to the ED today patient was very somnolent andnot answering any questions for staff. ABG showed pH 7.27, pCO2 72, pO2 70 on room air. He was placed on BiPAP but remained very somnolent, so decision was made to intubate him. He was intubated without issue. Staff did note that he began to have agitation postintubation and was requiring fairly high sedation requirements. Patient is intubated on ventilator. Patient agitated and having involuntary restless movement, moving both lower extremity upper extremities. Eyes twitching. Patient put back on IV propofol drip and discontinue Precedex drip. Patient was bradycardic heart rate 39 to 48/min. Blood pressure normal to low normal. Tachypneic. Patient was admitted from [facility] with chief complaint of altered mental status, hypoxia, SpO2 66% on room air and patient was put on nonrebreather. Patient's feet were malodorous with chronically superficial ulcerations Neurologic History Patient does not contribute to his history, chart reviewed. Patient is on sever antipsychotics including lithium, fluphenazine, olanzapine. Unclear etiology of AMS - possibly secondary to COPD exacerbation but remain altered and agitated. [facility] Medical History Hypercarbia Aspiration pneumonia Hypoxemia GERD (gastroesophageal reflux disease) Sepsis Tobacco abuse Schizophrenia COPD exacerbation Bipolar disorder Home Medications ?Medication ?Instructions ?Recorded ?Last Taken ?Type olanzapine 10 mg tablet 10 mg PO DAILY 02/18/15 Unkn own History omeprazole 20 mg capsule,delayed 20 mg PO BID 02/18/15 Unknown History release spironolactone 25 mg tablet 25 mg PO DAILY 02/18/15 Un known History fluphenazine decanoate 25 mg/mL 25 mg IM Q14D PARANOID 07/29/16 Unknown History injection solution SCHIZOPHRENIA montelukast 10 mg tablet 10 mg PO DAILY 05/02/18 Unkn own History olanzapine 20 mg tablet (Zyprexa) 20 mg PO QHS 9 Unknown History omega-3 fatty acids-fish oil 300 2 capsule PO BID defi ciency 05/02/18 10/29/23 History mg-1,000 mg capsule simvastatin 20 mg tablet (Zocor) 20 mg PO QHS 05/02/18 Unknown History amlodipine 5 mg tablet 5 mg PO DAILY bp 03/22/23 Un known History ammonium lactate 12 % topical cream 1 applic topical B ID skin 10/30/23 10/29/23 History irritation multivitamin (Daily Multi-Vitamin 1 tab PO DAILY repla cement 12/09/23 Unknown History tablet) acetaminophen 325 mg tablet 650 mg PO Q4H PRN fever or pain 05/23/24 Unknown History acetaminophen 650 mg rectal 650 mg [place] Q4H PRN pain Unknown History suppository aluminum-mag hydroxide-simethicone 30 ml PO Q4H PRN in digestion 05/23/24 Unknown History 400 mg-400 mg-40 mg/5 mL oral susp (Mintox Maximum Strength) amoxicillin 875 mg-potassium 1 tab PO Q12H 05/23/24 Un known History clavulanate 125 mg tablet bisacodyl 10 mg rectal suppository 10 mg [place] DAILY PRN CONSTIPATION 05/23/24 Unknown History cholecalciferol (vitamin D3) 50 50 mcg PO QHS SUPPLEME NT 05/23/24 Unknown History mcg (2,000 unit) tablet (D3 DOTS) lithium carbonate 600 mg capsule 600 mg PO QHS BIPOLAR 05/23/24 Unknown History magnesium hydroxide 400 mg/5 mL 30 ml PO DAILY PRN con stipation 05/23/24 Unknown History oral suspension (Dulcolax (magnesium hydroxide)) melatonin 5 mg tablet 5 mg PO QHS 05/23/24 Unknown History menthol 10 % topical cream 1 applic topical Q12H PRN p ain 05/23/24 Unknown History (Biofreeze (menthol)) sodium phosphates 19 gram-7 118 ml [place] BID PRN constipa tion 05/23/24 Unknown History gram/118 mL enema (Fleet Enema) trazodone 50 mg tablet 50 mg PO QHS sleep 05/23/24 Unknown History Allergy/AdvReac Type Severity Reaction Status Date / Time codeine AdvReac Upset Verified 12/08/23 16:08 Stomach haloperidol (From Haldol) AdvReac Abd Verified 12/08/23 16:08 cramps/diarrhea haloperidol lactate (From AdvReac Abd Verified 12/08/23 16:08 Haldol) cramps/diarrhea ziprasidone AdvReac Unknown Verified 12/08/23 16:08 Family History Mother Diabetes Surgical History S/P right knee arthroscopy S/P laparoscopic cholecystectomy History of esophagogastroduodenoscopy (EGD) S/P bilateral inguinal hernia repair Social History Smoking Status: Current every day smoker tobacco type: cigarettes Vital Signs Vital Signs Vital Signs: 05/24/24 13:25 05/24/24 13:25 05/24/24 14:00 Temperature Temperature Source Pulse Rate 62 60 59 L Pulse Strength Respiratory Rate 20 H 20 H 20 H Respiratory Effort Respiratory Depth Respiratory Pattern Normal Normal Blood Pressure 112/57 L Blood Pressure Mean 75 Blood Pressure Source Monitor Blood Pressure Position Semi-Fowlers Blood Pressure Location Right Arm Pulse Ox 96 95 Oxygen Delivery Method Mechanical Ventilator Oxygen Flow Rate (L/min) Fraction of Inspired Oxygen (FIO2) 35 35 05/24/24 15:00 05/24/24 15:00 05/24/24 15:48 Temperature Temperature Source Pulse Rate 61 60 Pulse Strength Respiratory Rate 20 H Respiratory Effort Mechanically Ventilated Respiratory Depth Normal Respiratory Pattern Normal Blood Pressure 109/53 L Blood Pressure Mean 71 Blood Pressure Source Monitor Blood Pressure Position Semi-Fowlers Blood Pressure Location Right Arm Pulse Ox 96 Oxygen Delivery Method Mechanical Ventilator Mechanical Ventilator Oxygen Flow Rate (L/min) Fraction of Inspired Oxygen (FIO2) 35 05/24/24 16:00 05/24/24 16:08 05/24/24 16:30 Temperature 100.4 F H Temperature Source Temporal Pulse Rate 59 L 57 L 123 H Pulse Strength Respiratory Rate 20 H 20 H 43 H Respiratory Effort Respiratory Depth Respiratory Pattern Normal Blood Pressure 121/57 H Blood Pressure Mean 78 Blood Pressure Source Monitor Blood Pressure Position Semi-Fowlers Blood Pressure Location Right Arm Pulse Ox 96 96 Oxygen Delivery Method Mechanical Ventilator Oxygen Flow Rate (L/min) Fraction of Inspired Oxygen (FIO2) 35 35 05/24/24 17:00 05/24/24 17:15 05/24/24 17:30 Temperature Temperature Source Pulse Rate 58 L 57 L 63 Pulse Strength Respiratory Rate 23 H 22 H 27 H Respiratory Effort Respiratory Depth Respiratory Pattern Blood Pressure 137/47 H Blood Pressure Mean 77 Blood Pressure Source Monitor Monitor Monitor Blood Pressure Position Semi-Fowlers Semi-Fowlers Semi-Fowlers Blood Pressure Location Right Arm Right Arm Right Arm Pulse Ox 96 96 99 Oxygen Delivery Method Mechanical Ventilator Mechanical Ventilator Mechanical Ventilator Oxygen Flow Rate (L/min) Fraction of Inspired Oxygen (FIO2) 35 35 35 05/24/24 17:45 05/24/24 18:00 05/24/24 18:15 Temperature Temperature Source Pulse Rate 105 H 56 L 53 L Pulse Strength Respiratory Rate 47 H 20 H 20 H Respiratory Effort Respiratory Depth Respiratory Pattern Blood Pressure 133/65 H 131/56 H 134/60 H Blood Pressure Mean 87 81 84 Blood Pressure Source Monitor Monitor Monitor Blood Pressure Position Semi-Fowlers Semi-Fowlers Semi-Fowlers Blood Pressure Location Right Arm Right Arm Right Arm Pulse Ox 95 96 Oxygen Delivery Method Mechanical Ventilator Mechanical Ventilator Oxygen Flow Rate (L/min) Fraction of Inspired Oxygen (FIO2) 35 35 05/24/24 18:30 05/24/24 18:45 05/24/24 19:00 Temperature Temperature Source Pulse Rate 54 L 52 L 53 L Pulse Strength Respiratory Rate 20 H 20 H 20 H Respiratory Effort Respiratory Depth Respiratory Pattern Normal Blood Pressure 135/59 H 135/66 H Blood Pressure Mean 84 89 Blood Pressure Source Monitor Monitor Blood Pressure Position Semi-Fowlers Semi-Fowlers Blood Pressure Location Right Arm Right Arm Pulse Ox 96 96 Oxygen Delivery Method Mechanical Ventilator Mechanical Ventilator Oxygen Flow Rate (L/min) Fraction of Inspired Oxygen (FIO2) 35 35 05/24/24 19:04 05/24/24 20:00 05/24/24 20:00 Temperature Temperature Source Pulse Rate 52 L 51 L Pulse Strength Respiratory Rate 20 H 20 H Respiratory Effort Mechanically Ventilated Respiratory Depth Normal Respiratory Pattern Normal Normal Blood Pressure 136/60 H Blood Pressure Mean 85 Blood Pressure Source Monitor Blood Pressure Position Semi-Fowlers Blood Pressure Location Right Arm Pulse Ox 95 96 Oxygen Delivery Method Mechanical Ventilator Mechanical Ventilator Oxygen Flow Rate (L/min) Fraction of Inspired Oxygen (FIO2) 35 35 05/24/24 21:00 05/24/24 22:00 05/24/24 22:00 Temperature 98.6 F Temperature Source Temporal Pulse Rate 49 L 49 L Pulse Strength Normal (2+) Respiratory Rate 20 H 20 H Respiratory Effort Respiratory Depth Respiratory Pattern Blood Pressure 138/59 H 132/58 H Blood Pressure Mean 85 82 Blood Pressure Source Monitor Monitor Blood Pressure Position Semi-Fowlers Semi-Fowlers Blood Pressure Location Right Arm Right Arm Pulse Ox 96 96 Oxygen Delivery Method Mechanical Ventilator Mechanical Ventilator Oxygen Flow Rate (L/min) Fraction of Inspired Oxygen (FIO2) 35 35 05/24/24 22:43 05/24/24 23:00 05/25/24 00:00 Temperature Temperature Source Pulse Rate 55 L 45 L Pulse Strength Respiratory Rate 26 H 20 H Respiratory Effort Mechanically Ventilated Respiratory Depth Normal Respiratory Pattern Tachypnea Normal Blood Pressure 135/58 H Blood Pressure Mean 83 Blood Pressure Source Monitor Blood Pressure Position Semi-Fowlers Blood Pressure Location Left Arm Pulse Ox 96 97 Oxygen Delivery Method Mechanical Ventilator Mechanical Ventilator Oxygen Flow Rate (L/min) Fraction of Inspired Oxygen (FIO2) 35 35 05/25/24 00:00 05/25/24 01:00 05/25/24 01:13 Temperature Temperature Source Pulse Rate 44 L 43 L 41 L Pulse Strength Respiratory Rate 20 H 20 H 20 H Respiratory Effort Respiratory Depth Respiratory Pattern Normal Blood Pressure 137/62 H 132/60 H Blood Pressure Mean 87 84 Blood Pressure Source Monitor Monitor Blood Pressure Position Semi-Fowlers Semi-Fowlers Blood Pressure Location Left Arm Left Arm Pulse Ox 97 97 Oxygen Delivery Method Mechanical Ventilator Mechanical Ventilator Oxygen Flow Rate (L/min) Fraction of Inspired Oxygen (FIO2) 35 35 05/25/24 01:32 05/25/24 02:00 05/25/24 03:00 Temperature 98.2 F Temperature Source Temporal Pulse Rate 41 L 43 L 40 L Pulse Strength Respiratory Rate 20 H 20 H 20 H Respiratory Effort Respiratory Depth Respiratory Pattern Normal Blood Pressure 134/67 H 128/64 H Blood Pressure Mean 89 85 Blood Pressure Source Monitor Monitor Blood Pressure Position Semi-Fowlers Semi-Fowlers Blood Pressure Location Left Arm Left Arm Pulse Ox 97 97 97 Oxygen Delivery Method Mechanical Ventilator Mechanical Ventilator Oxygen Flow Rate (L/min) Fraction of Inspired Oxygen (FIO2) 35 35 35 05/25/24 04:00 05/25/24 04:00 05/25/24 04:22 Temperature Temperature Source Pulse Rate 41 L 40 L Pulse Strength Respiratory Rate 20 H 20 H Respiratory Effort Mechanically Ventilated Respiratory Depth Normal Respiratory Pattern Normal Normal Blood Pressure 132/57 H Blood Pressure Mean 82 Blood Pressure Source Monitor Blood Pressure Position Semi-Fowlers Blood Pressure Location Left Arm Pulse Ox 97 95 Oxygen Delivery Method Mechanical Ventilator Mechanical Ventilator Oxygen Flow Rate (L/min) Fraction of Inspired Oxygen (FIO2) 35 35 05/25/24 05:00 05/25/24 06:00 05/25/24 06:35 Temperature Temperature Source Pulse Rate 75 41 L 39 L Pulse Strength Respiratory Rate 20 H 20 H 20 H Respiratory Effort Respiratory Depth Respiratory Pattern Normal Blood Pressure 118/56 L 124/59 H Blood Pressure Mean 76 80 Blood Pressure Source Monitor Monitor Blood Pressure Position Semi-Fowlers Semi-Fowlers Blood Pressure Location Left Arm Left Arm Pulse Ox 100 96 97 Oxygen Delivery Method Mechanical Ventilator Mechanical Ventilator Oxygen Flow Rate (L/min) Fraction of Inspired Oxygen (FIO2) 35 35 35 05/25/24 06:40 05/25/24 07:00 05/25/24 07:00 Temperature Temperature Source Pulse Rate 42 L 38 L 38 L Pulse Strength Respiratory Rate 20 H 20 H Respiratory Effort Respiratory Depth Respiratory Pattern Normal Blood Pressure 127/58 H Blood Pressure Mean 81 Blood Pressure Source Monitor Blood Pressure Position Semi-Fowlers Blood Pressure Location Left Arm Pulse Ox 96 Oxygen Delivery Method Mechanical Ventilator Oxygen Flow Rate (L/min) Fraction of Inspired Oxygen (FIO2) 35 05/25/24 08:00 05/25/24 08:00 05/25/24 08:56 Temperature 97.8 F Temperature Source Temporal Pulse Rate 41 L 43 L Pulse Strength Respiratory Rate 20 H 22 H Respiratory Effort Mechanically Ventilated Respiratory Depth Normal Respiratory Pattern Normal Normal Blood Pressure 115/55 L Blood Pressure Mean 75 Blood Pressure Source Monitor Blood Pressure Position Semi-Fowlers Blood Pressure Location Left Arm Pulse Ox 96 97 Oxygen Delivery Method Mechanical Ventilator Mechanical Ventilator Oxygen Flow Rate (L/min) 35 Fraction of Inspired Oxygen (FIO2) 35 35 05/25/24 09:00 05/25/24 10:00 05/25/24 10:58 Temperature Temperature Source Pulse Rate 52 L 39 L 48 L Pulse Strength Respiratory Rate 23 H 20 H 20 H Respiratory Effort Respiratory Depth Respiratory Pattern Normal Blood Pressure 117/57 L 106/55 L Blood Pressure Mean 77 72 Blood Pressure Source Monitor Monitor Blood Pressure Position Semi-Fowlers Semi-Fowlers Blood Pressure Location Left Arm Left Arm Pulse Ox 98 95 96 Oxygen Delivery Method Mechanical Ventilator Mechanical Ventilator Oxygen Flow Rate (L/min) Fraction of Inspired Oxygen (FIO2) 35 35 35 Weight Weight: 110.3 kg Body Mass Index (BMI) 36.8 EEG Results Procedure Details EEG Procedure Details: TONY ARIZA is a 64 year old M with a past medical history of , who presents for evaluation of Electroencephalogram on DATE at TIME Physical Exam Narrative Eyes will occasionally look to the L and upward, will intermittently move to theR moves arms and legs b/l strongly arms will grab onto the handrails and start to pull The legs will kick intermittently Does not follow commands Lab / Micro Data 05/25/24 07:30 05/25/24 17:00 Labs: Laboratory Results - last 24 hr 05/25/24 07:30: WBC 7.5, RBC 4.17 L, Hgb 13.8, Hct 44.9, MCV 107.7 H, MCH 33.1 H, MCHC 30.7 L, RDW Std Deviation 72.3 H, RDW Coeff of Babatunde 18.1 H, Plt Count 138 L, MPV 10.1, Immature Gran % (Auto) 0.800, Neut % (Auto) 87.2 H, Lymph % (Auto) 5.5 L, Gove % (Auto) 6.4, Eos % (Auto) 0.0, Baso % (Auto) 0.1, Absolute Neuts (auto) 6.6, Absolute Lymphs (auto) 0.41 L, Nucleated RBC % 0, Anisocytosis RARE,Sodium 150 H, Potassium 4.6, Chloride 118 H, Carbon Dioxide 25.1, Anion Gap 7, BUN 23 H, Creatinine 1.54 H, Estim Creat Clear Calc 59.91, Est GFR (MDRD) Non-Af 51 L, BUN/Creatinine Ratio 15.1, Glucose 181 H, Calcium 8.8, Total Bilirubin 0.58, AST 22, ALT 15, Alkaline Phosphatase 97, Total Protein 7.5, Albumin 3.4, Globulin 4.1, Albumin/Globulin Ratio 0.8 L 05/25/24 08:30: Vancomycin Trough 24.5 H Micro: Microbiology 05/23/24 11:00 Blood Culture (Wb) - Right Hand Blood Culture - Preliminary No growth in 48 hours. 05/23/24 11:00 Blood Culture (Wb) - Anticubital Right Blood Culture - Preliminary 05/23/24 12:20 Sputum, Induced/Lukens Gram Stain - Final 05/23/24 12:20 Sputum, Induced/Lukens Respiratory Culture - Final Presumptive C albicans 05/23/24 11:20 Urine, Clean Catch Urine Culture - Final Gram negative behzad ABG Data ABG results: ABG 05/25/24 13:00 Specimen Type ART Sample Site L Brach pH 7.38 Bicarbonate Actual 27.5 H Total CO2 29 Base Excess 2 O2 Saturation 91 L O2 % 35.0 ABG pCO2 46.6 H ABG pO2 62 L Respiration Rate 20 O2 Delivery Device Adult Vent Vent Mode AC Tidal Volume 450.0 POC PEEP 5 Rhythm Strip Rhythm Strip: Sinus Rhythm Rate: 95 Ectopy: None Active Medications Active Medications Active Medications: Current Medications Generic Name Dose Route Start Last Admin Trade Name Freq PRN Reason Stop Dose Admin Acetaminophen 650 mg 05/23/24 21:06 Acetaminophen 650 Mg/20 Ml Udc GT Q6H PRN PRN Pain 1-10 Or Fever>100.7 Albuterol/Ipratropium 3 ml 05/23/24 19:30 05/25/24 12:55 Ipratropium/Albuterol Sulfate 3 Ml Ampul.Neb INHALATION 3 ml Q6H.RT JUSTIN Administration Atorvastatin Calcium 10 mg 05/23/24 22:00 05/24/24 21:32 Atorvastatin Calcium 10 Mg Tablet GT 10 mg QHS JUSTIN Administration Budesonide 0.5 mg 05/23/24 19:30 05/25/24 11:00 Budesonide Respules 0.5 Mg/2 Ml Ampul.Neb. INHALATION Not Given Q12H JUSTIN Chlorhexidine Gluconate 15 ml 05/24/24 10:00 05/25/24 08:00 Chlorhexidine 15 Ml PO 15 ml BID JUSTIN Administration Chlorhexidine Gluconate 1 each 05/25/24 10:00 05/25/24 06:03 Chlorhexidine Gluc 2% Cloth 1 Each Towelette TOPICAL 1 each DAILY JUSTIN Administration Cholecalciferol 50 mcg 05/23/24 22:00 05/24/24 21:32 Cholecalciferol (Vit D3) 25 Mcg Tablet (1,000 Units) GT 50 mcg QHS JUSTIN Administration Enoxaparin Sodium 40 mg 05/24/24 10:00 05/25/24 11:03 Enoxaparin 40 Mg/0.4 Ml Syringe SC 40 mg DAILY JUSTIN Administration Propofol 1,000 mg in 100 mls @ 12.324 mls/hr 05/23/24 11:35 05/25/24 12:00 Diprivan CONT INF 10 mcg/kg/min .Q8H7M JUSTIN 6.2 mls/hr Titration Protocol 20 MCG/KG/MIN Fentanyl 100 mls @ 5 mls/hr 05/23/24 12:00 05/25/24 12:00 CONT INF 25 mcg/hr UD JUSTIN 2.5 mls/hr Titration Protocol 50 MCG/HR Pantoprazole Sodium 40 mg/ 110 mls @ 330 mls/hr 05/23/24 22:00 05/25/24 10:59 Sodium Chloride IV 330 mls/hr Q12 UJSTIN Administration Piperacillin Sod/Tazobactam 50 mls @ 12.5 mls/hr 05/23/24 22:00 05/25/24 12:49 Sod 3.375 gm/ Sodium Chloride IV Infused Q8 JUSTIN Infusion Vancomycin IV-PHARMACY TO DOSE 500 mls @ 250 mls/hr 05/23/24 18:16 1 each/ Sodium Chloride IV X1 PRN Rx to Dose Protocol Sodium Chloride 100 mls @ 15 mls/hr 05/23/24 20:03 05/24/24 12:50 IV Infused .Q6H40M PRN Infusion Saline Flush Sodium Chloride 100 mls @ 15 mls/hr 05/23/24 20:03 05/24/24 12:46 IV Infused .Q6H40M PRN Infusion Additional IVPB Infusion Enteral Nutritional Formula 1,000 mls @ 50 mls/hr 05/24/24 17:40 05/25/24 03:44 Vital Af 1.2 Colin Liquid GT 30 mls/hr .Q20H JUSTIN Infusion Dexmedetomidine HCl 1,000 mcg/ 250 mls @ 14.113 mls/hr 05/24/24 23:45 05/25/24 09:00 Sodium Chloride CONT INF 0 mcg/kg/hr .[id number] JUSTIN 0 mls/hr Titration Protocol 0.5 MCG/KG/HR Dextrose 1,000 mls @ 60 mls/hr 05/25/24 11:30 05/25/24 12:49 IV 05/26/24 20:49 60 mls/hr .[id number] JUSTIN Administration Protocol [place] Carbonate 300 mg 05/25/24 22:00 [place] Carbonate 300mg Capsule GT QHS JUSTIN Methylprednisolone Sodium Succinate 40 mg 05/24/24 14:00 05/25/24 06:07 Methylprednisolone Sod Succ 40 Mg/Ml Vial IV 40 mg Q8 JUSTIN Administration Montelukast Sodium 10 mg 05/24/24 10:00 05/25/24 11:04 Montelukast 10 Mg Tablet GT 10 mg DAILY JUSTIN Administration Mupirocin 1 applic 05/25/24 11:20 Mupirocin Ointment 22gm Tube TOPICAL BID JUSTIN Protocol Olanzapine 10 mg 05/24/24 10:00 05/25/24 11:04 Olanzapine 10 Mg Tablet GT 10 mg DAILY JUSTIN Administration Protocol Olanzapine 20 mg 05/23/24 22:00 05/24/24 21:32 Olanzapine 10 Mg Tablet GT 20 mg QHS JUSTIN Administration Ondansetron HCl 4 mg 05/23/24 18:16 Ondansetron 4 Mg/2 Ml Vial IV Q8H PRN PRN NAUSEA/VOMITING Sodium Chloride 10 - 40 ml 05/23/24 17:52 05/25/24 09:10 0.9% Saline Lock 10 Ml Syringe IV 20 ml UD PRN Administration SALINE FLUSH Sodium Chloride 10 - 40 ml 05/23/24 20:03 0.9% Saline Lock 10 Ml Syringe IV UD PRN SALINE FLUSH Vancomycin Protocol 1 lab 05/26/24 04:00 Vancomycin Trough/Random Due MC 05/26/24 08:00 DAILY JUSTIN 05/26/24 0113 <Electronically signed by Deanne Hayden MD> Cosigner Signature (if applicable): CC: MARY Chu~ Signed [facility] Work Phone: [phone] 527-549803-23-2025 Progress note Author Hollis Anderson [facility] Note Date/Time May 25, 2024 1:1 6pm [facility] Medical Records Department [address] [place] [address] [place] [address] Progress Note - 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 05/25/24 1206 MR#: [id number] Acct: [id number] Name: TONY ARIZA Rep #:[id number] : 1960 64 From: Hollis Anderson MD PCP: MARY Chi Status: ADM IN Location: ICU ICU04-1 Objective Data Objective Data Vital Signs: Vital Signs Last response 3 Temperature 36.6 C 05/25/24 08:00 Temperature Source Temporal 05/25/24 08:00 Pulse Rate 48 L 05/25/24 10:58 Pulse Strength Normal (2+) 05/24/24 22:00 Respiratory Rate 20 H 05/25/24 10:58 Respiratory Effort Mechanically Ventilated 05/25/24 08:00 Respiratory Depth Normal 05/25/24 08:00 Respiratory Pattern Normal 05/25/24 10:58 Blood Pressure 106/55 L 05/25/24 10:00 Blood Pressure Mean 72 05/25/24 10:00 Blood Pressure Source Monitor 05/25/24 10:00 Blood Pressure Position Semi-Fowlers 05/25/24 10:00 Blood Pressure Location Left Arm 05/25/24 10:00 Pulse Ox 96 05/25/24 10:58 Oxygen Delivery Method Mechanical Ventilator 05/25/24 10:00 Oxygen Flow Rate (L/min) 35 05/25/24 08:00 Fraction of Inspired Oxygen (FIO2) 35 05/25/24 10:58 I&O: I&O Last 24 Hours 3 05/24/24 05/25/24 05/25/24 23:59 11:59 23:59 Intake Total 1447.56 / 1976.06 664.80 / 664.80 Output Total 800 / 4650 1900 / 1900 Balance 647.56 / -2673.94 -1235.20 / -1235.20 I&O: Total Stay 3 05/23/24 10:37 thru 05/25/24 11:06 Intake Total 4685.37 Output Total 7900 Balance -3214.63 Current Meds Ordered / Administered: Current meds ordered / Administered 3 Generic Name Dose Route Start Last Admin Trade Name Freq PRN Reason Stop Dose Admin Acetaminophen 650 mg 05/23/24 21:06 Acetaminophen 650 Mg/20 Ml Udc GT Q6H PRN PRN Pain 1-10 Or Fever>100.7 Albuterol/Ipratropium 3 ml 05/23/24 19:30 05/25/24 06:48 Ipratropium/Albuterol Sulfate 3 Ml Ampul.Neb INHALATION 3 ml Q6H.RT JUSTIN Administration Atorvastatin Calcium 10 mg 05/23/24 22:00 05/24/24 21:32 Atorvastatin Calcium 10 Mg Tablet GT 10 mg QHS JUSTIN Administration Budesonide 0.5 mg 05/23/24 19:30 05/25/24 11:00 Budesonide Respules 0.5 Mg/2 Ml Ampul.Neb. INHALATION Not Given Q12H JUSTIN Chlorhexidine Gluconate 15 ml 05/24/24 10:00 05/25/24 08:00 Chlorhexidine 15 Ml PO 15 ml BID JUSTIN Administration Chlorhexidine Gluconate 1 each 05/25/24 10:00 05/25/24 06:03 Chlorhexidine Gluc 2% Cloth 1 Each [place]elette TOPICAL 1 each DAILY JUSTIN Administration Cholecalciferol 50 mcg 05/23/24 22:00 05/24/24 21:32 Cholecalciferol (Vit D3) 25 Mcg Tablet (1,000 Units) GT 50 mcg QHS JUSTIN Administration Enoxaparin Sodium 40 mg 05/24/24 10:00 05/25/24 11:03 Enoxaparin 40 Mg/0.4 Ml Syringe SC 40 mg DAILY JUSTIN Administration Propofol 1,000 mg in 100 mls @ 12.324 mls/hr 05/23/24 11:35 05/25/24 11:00 Diprivan CONT INF 10 mcg/kg/min .Q8H7M JUSTIN 6.2 mls/hr Titration Protocol 20 MCG/KG/MIN Fentanyl 100 mls @ 5 mls/hr 05/23/24 12:00 05/25/24 11:00 CONT INF 25 mcg/hr UD JUSTIN 2.5 mls/hr Titration Protocol 50 MCG/HR Pantoprazole Sodium 40 mg/ 110 mls @ 330 mls/hr 05/23/24 22:00 05/25/24 10:59 Sodium Chloride IV 330 mls/hr Q12 JUSTIN Administration Piperacillin Sod/Tazobactam 50 mls @ 12.5 mls/hr 05/23/24 22:00 05/25/24 06:05 Sod 3.375 gm/ Sodium Chloride IV 12.5 mls/hr Q8 JUSTIN Administration Vancomycin IV-PHARMACY TO DOSE 500 mls @ 250 mls/hr 05/23/24 18:16 1 each/ Sodium Chloride IV X1 PRN Rx to Dose Protocol Sodium Chloride 100 mls @ 15 mls/hr 05/23/24 20:03 05/24/24 12:50 IV Infused .Q6H40M PRN Infusion Saline Flush Sodium Chloride 100 mls @ 15 mls/hr 05/23/24 20:03 05/24/24 12:46 IV Infused .Q6H40M PRN Infusion Additional IVPB Infusion Enteral Nutritional Formula 1,000 mls @ 50 mls/hr 05/24/24 17:40 05/25/24 03:44 Vital Af 1.2 Colin Liquid GT 30 mls/hr .Q20H JUSTIN Infusion Dexmedetomidine HCl 1,000 mcg/ 250 mls @ 14.113 mls/hr 05/24/24 23:45 05/25/24 09:00 Sodium Chloride CONT INF 0 mcg/kg/hr .[id number] JUSTIN 0 mls/hr Titration Protocol 0.5 MCG/KG/HR Dextrose 1,000 mls @ 60 mls/hr 05/25/24 11:30 IV 05/26/24 20:49 .[id number] JUSTIN Protocol [place] Carbonate 300 mg 05/25/24 22:00 [place] Carbonate 300mg Capsule GT QHS JUSTIN Methylprednisolone Sodium Succinate 40 mg 05/24/24 14:00 05/25/24 06:07 Methylprednisolone Sod Succ 40 Mg/Ml Vial IV 40 mg Q8 JUSTIN Administration Montelukast Sodium 10 mg 05/24/24 10:00 05/25/24 11:04 Montelukast 10 Mg Tablet GT 10 mg DAILY JUSTIN Administration Mupirocin 1 applic 05/25/24 11:20 Mupirocin Ointment 22gm Tube TOPICAL BID JUSTIN Protocol Olanzapine 10 mg 05/24/24 10:00 05/25/24 11:04 Olanzapine 10 Mg Tablet GT 10 mg DAILY JUSTIN Administration Protocol Olanzapine 20 mg 05/23/24 22:00 05/24/24 21:32 Olanzapine 10 Mg Tablet GT 20 mg QHS JUSTIN Administration Ondansetron HCl 4 mg 05/23/24 18:16 Ondansetron 4 Mg/2 Ml Vial IV Q8H PRN PRN NAUSEA/VOMITING Sodium Chloride 10 - 40 ml 05/23/24 17:52 05/25/24 09:10 0.9% Saline Lock 10 Ml Syringe IV 20 ml UD PRN Administration SALINE FLUSH Sodium Chloride 10 - 40 ml 05/23/24 20:03 0.9% Saline Lock 10 Ml Syringe IV UD PRN SALINE FLUSH Vancomycin Protocol 1 lab 05/26/24 04:00 Vancomycin Trough/Random Due MC 05/26/24 08:00 DAILY [facility] Lab / Micro Data 05/25/24 07:30 05/25/24 07:30 Labs: Laboratory Results - last 24 hr 05/25/24 07:30: WBC 7.5, RBC 4.17 L, Hgb 13.8, Hct 44.9, MCV 107.7 H, MCH 33.1 H, MCHC 30.7 L, RDW Std Deviation 72.3 H, RDW Coeff of Babatunde 18.1 H, Plt Count 138 L, MPV 10.1, Immature Gran % (Auto) 0.800, Neut % (Auto) 87.2 H, Lymph % (Auto) 5.5 L, Gove % (Auto) 6.4, Eos % (Auto) 0.0, Baso % (Auto) 0.1, Absolute Neuts (auto) 6.6, Absolute Lymphs (auto) 0.41 L, Nucleated RBC % 0, Anisocytosis RARE,Sodium 150 H, Potassium 4.6, Chloride 118 H, Carbon Dioxide 25.1, Anion Gap 7, BUN 23 H, Creatinine 1.54 H, Estim Creat Clear Calc 59.91, Est GFR (MDRD) Non-Af 51 L, BUN/Creatinine Ratio 15.1, Glucose 181 H, Calcium 8.8, Total Bilirubin 0.58, AST 22, ALT 15, Alkaline Phosphatase 97, Total Protein 7.5, Albumin 3.4, Globulin 4.1, Albumin/Globulin Ratio 0.8 L 05/25/24 08:30: Vancomycin Trough 24.5 H Micro: Microbiology 05/23/24 11:00 Blood Culture (Wb) - Anticubital Right Blood Culture - Preliminary 05/23/24 12:20 Sputum, Induced/Lukens Gram Stain - Final 05/23/24 12:20 Sputum, Induced/Lukens Respiratory Culture - Final Presumptive C albicans 05/23/24 11:20 Urine, Clean Catch Urine Culture - Final Gram negative behzad Rhythm Strip Rhythm Strip: Sinus Rhythm Rate: 95 Ectopy: None Imaging Radiology Impression Echocardiogram 05/23/24 14:38 Interpretation Summary Normal LV size. Left ventricular systolic function is normal. The left ventricular ejection fraction is 65 %. Pulmonary artery systolic pressure is 42 mmHg. Structurally normal valves. Ordering Physician: Robson George Referring Physician: Ingris Chu Performed By: Carla Ulloa RDCS Assessment and Plan . Assessment and plan: Pt seen and examined. Intubated, sedated. Remains very agitated when sedation lightened this AM. Afebrile. Making urine. Prop @ 10 Fent @ 25 TFs @ 30 + 300 q4h 20 450 5 35 PE: General: morbidly obese acute on chronically ill appearing male; +MV HEENT: anicteric Sclera; + ETT, nl nose; supple neck, no masses Cardiovascular: Regular Rate and Rhythm; No murmurs, rubs, gallops; no displacedPMI Respiratory: diminished; no crackles, wheezes, or rhonchi Abdominal: Non-tender; Non distended; hypoBS x 4; No Hepatosplenomegaly Extremities: Warm, extensive LE wounds to feet/toes and chronic venous stasis dermatitis; No clubbing, cyanosis; capillary refill < 2 sec Neurological: sedated and responsive but easily agitated A/P: #Acute hypoxemic respiratory failure: intubated primarily for airway protection;cont MV; settings reviewed/adjusted; SAT/SBT as tolerated but limited due to mentation/agitation at this time; did not tolerate Precedex forward strategy dueto bradycardia and on-going agitation; will add PO buspirone to facilitate weaning #Acute toxic metabolic encephalopathy: CT head no acute abnormalities; UDS/UTox neg; ?medication effect; continuing home lithium and olanzapine via NGT #?COPD exacerbation: cont nebs + IV steroids #B/L LE wounds (extensive to feet) & venous stasis dermatitis with ?cellulitis: cont on emp vanc/Zosyn without any strong suspicion of infection, nasal MRSA positive --> de-esc Abx if Cx neg x48h and if no active infection identified; cont wound care #NILESH vs CKD: nonoliguric; cont monitor #Acute hyponatremia: resolved, monitor #Active tobacco abuse: counseling re: cessation when appropriate #Chronic dysphagia: ST F/U when appropriate #Schizophrenia: cont home meds #Chronic debility: PT/OT when appropriate TFs LMWH, PPI Guarded prognosis Critical Care Time: 50 min The entirety of this encounter was done via Telemedicine 05/25/24 1316 <Electronically signed by Hollis Anderson MD> Cosigner Signature (if applicable): CC: ~ Signed [facility] Work Phone: [phone] 778-667103-23-2025 Progress note Author David Ruvalcaba [facility] Note Date/Time May 25, 2024 11: 40am [facility] Medical Records Department [address] [place] [address] Progress Note - Hospitalist 05/25/24 1113 MR#: [id number] Acct: [id number] Name: TOTONY BURR Gabby Rep #:[id number] : 1960 64 From: David Pierre PCP: MARY Chi Status: ADM IN Location: ICU ICU04-1 Reason for Visit Reason for Visit: Diagnoses Venous insufficiency (chronic) (peripheral) (05/23/24) Acute respiratory failure with hypoxia (05/23/24) Acute respiratory failure with hypercapnia (05/23/24) Objective Data Objective Data Vital Signs: Vital Signs Temp Pulse Resp BP Pulse Ox O2 Del Method O2 Flow Rate 97.8 F 48 L 20 H 106/55 L 96 Mechanical Ventilator 6 05/25/24 08:00 05/25/24 10:58 05/25/24 10:58 05/25/24 10:00 05/25/24 10:58 05/25/24 10:00 05/23/24 11:39 FiO2 35 05/25/24 10:58 Oxygen Flow Rate (L/min) 6 Oxygen Delivery Method Mechanical Ventilator Weight: 243 lb 2.718 oz Body Mass Index (BMI) 36.8 Intake & Output: Intake and Output for Last 24 Hours 05/23/24 05/24/24 05/25/24 23:59 23:59 23:59 Intake Total 2143.06 / 2160.36 1877.51 / 1976.06 640.59 / 640.59 Output Total 2200 / 2200 3800 / 4650 1900 / 1900 Balance -56.94 / -39.64 -1922.49 / -2673.94 -1259.41 / -1259.41 Lab / Micro Data 05/25/24 07:30 05/25/24 07:30 Labs: Laboratory Results - last 24 hr 05/25/24 07:30: WBC 7.5, RBC 4.17 L, Hgb 13.8, Hct 44.9, MCV 107.7 H, MCH 33.1 H, MCHC 30.7 L, RDW Std Deviation 72.3 H, RDW Coeff of Babatunde 18.1 H, Plt Count 138 L, MPV 10.1, Immature Gran % (Auto) 0.800, Neut % (Auto) 87.2 H, Lymph % (Auto) 5.5 L, Gove % (Auto) 6.4, Eos % (Auto) 0.0, Baso % (Auto) 0.1, Absolute Neuts (auto) 6.6, Absolute Lymphs (auto) 0.41 L, Nucleated RBC % 0, Anisocytosis RARE,Sodium 150 H, Potassium 4.6, Chloride 118 H, Carbon Dioxide 25.1, Anion Gap 7, BUN 23 H, Creatinine 1.54 H, Estim Creat Clear Calc 59.91, Est GFR (MDRD) Non-Af 51 L, BUN/Creatinine Ratio 15.1, Glucose 181 H, Calcium 8.8, Total Bilirubin 0.58, AST 22, ALT 15, Alkaline Phosphatase 97, Total Protein 7.5, Albumin 3.4, Globulin 4.1, Albumin/Globulin Ratio 0.8 L 05/25/24 08:30: Vancomycin Trough 24.5 H Micro: Microbiology 05/23/24 11:00 Blood Culture (Wb) - Anticubital Right Blood Culture - Preliminary 05/23/24 12:20 Sputum, Induced/Lukens Gram Stain - Final 05/23/24 12:20 Sputum, Induced/Lukens Respiratory Culture - Final Presumptive C albicans 05/23/24 11:20 Urine, Clean Catch Urine Culture - Final Gram negative behzad 05/23/24 11:20 Mucosa - Nose SARS-CoV-2, Influenza & RSV (PCR) - Final Radiography Diagnostic Testing: Radiology Impression Echocardiogram 05/23/24 14:38 Interpretation Summary Normal LV size. Left ventricular systolic function is normal. The left ventricular ejection fraction is 65 %. Pulmonary artery systolic pressure is 42 mmHg. Structurally normal valves. Ordering Physician: Robson George Referring Physician: Ingris Chu Performed By: Carla Ulloa RDCS Rhythm Strip Rhythm Strip: Sinus Rhythm Rate: 95 Ectopy: None Physical Exam Narrative Seen and examined. Patient is intubated on ventilator. Patient agitated and having involuntary restless movement, moving both lower extremity upper extremities. Eyes twitching. Patient put back on IV propofol drip and discontinue Precedex drip. Patient was bradycardic heart rate 39 to 48/min. Blood pressure normal to low normal. Tachypneic. Patient was admitted from [facility] with chief complaint of altered mental status, hypoxia, SpO2 66% on room air and patient was put on nonrebreather. Patient's feet were malodorous with chronically superficial ulcerations Patient was febrile 100.4 Fahrenheit in the ED. Physical exam General: Agitated restless, involuntary movement HEENT: Atraumatic, PERRLA, EOMI, Normocephalic Oral: ET and OG tube Neck: Supple, Negative Carotid Bruits, could not examine JVD on mechanical ventilator Chest wall/Lungs: Air entry diminished in bilateral lung bases. No crepitation/rhonchi Cardiovascular: Bradycardic, Normal S1, Normal S2, No M/G/R Abdomen: Bowel Sounds Present, Soft, Non Tender, Non-Distended : No dysuria. No renal angle tenderness. No suprapubic tenderness. Extremities: No edema, Capillary Refill Less than 3 Seconds Skin: Bilateral feet superficial ulcerated, malodorous, looks better. Bilateral legs, venous hypertension/stasis dermatitis Musculoskeletal: No Tenderness to Palpation of Joints or Extremities. Neurological: Sedated Psych/Mental Status: Restless. Assessment & Plan Assessment/Plan (1) Acute respiratory failure with hypoxia and hypercapnia: (2) Chronic venous stasis dermatitis of both lower extremities: PLAN: Plan Patient is a 64-year-old male who presented [facility] ED on 05/23/2024 with altered mentation status 1. Acute hypoxic and hypercapnic respiratory failure most likely due to COPD ? Admit under inpatient status to ICU. 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 consulted. ABG in ED on nasal cannula showed pH 7.27, pCO2 72, pO2 40. Chest x-ray showed cardiomegaly with mild vascular congestion. Unclear etiology but respiratory failure may be secondary to decreased respiratory drive in setting of acute encephalopathy is notable low. BNP normal. 2D echo is ordered continue mechanical ventilation atthis time. 05/24: ABG shows 7.43/47.5/59 on 35% FiO2, PEEP 5, TV 450 mL. 05/25: Patient still on vent, not ready for extubation because of altered mental status. Sputum culture growing presumptive Nadine albicans. Urine culture, GNR less than 1000 not pathology pathology range, colonization. Continue broad-spectrum antibiotic. GPR in blood might be contamination like corynebacterium/diphtheroids or true infection therefore will consult ID. 2. Acute toxic/metabolic encephalopathy, unclear etiology possible metabolic from high pCO2: Patient was very somnolent from assisted living. Has history of schizophrenia and is on lithium, olanzapine and fluphenazine every 2 weeks Patient currently sedated while on mechanical ventilation. Okay to continue home lithium and olanzapine for now if they can be given through OG tube. Appreciate further steam tender recommendations. Serum lithium level is 1.01. CRP elevated. U tox negative. Triple PCR for SARS-CoV-2, flu and RSV are negative 05/25: Patient restless, agitated, moving all 4 extremities, eyes twitching, possible differential includes withdrawal of antipsychotic medications but patient has been getting olanzapine and lithium. Will get the neuroconsult. Does not seem epileptic or seizure as it is not in a pattern but looks like moreagitated or withdrawal of medications. EEG ordered. Propofol restarted to makethe patient more sedated. Patient also has been getting IM fluphenazine 25 mg IM every 2 weekly but I think is not needed while patient is on propofol drip. Continue holding trazodone as it might lowered seizure threshold. 3. Severe chronic venous stasis dermatitis with concern for cellulitis ? Patient with severe venous stasis changes noted in the ED. Ladonna superficial ulceration of toes, interdigital space and dorsum of the foot. Plantar surface could not be examined. lactic acid normal. Procalcitonin normal. Sepsis ruled out 05/25: Bilateral and toe skin looks better. Mupirocin 2% cream ordered 4. Mild hyponatremia converted to hyponatremia with NILESH ? Sodium 131 on admit. Chloride 96 and creatinine 1.30, mildly elevated from baseline 1.1-1.2. Suspect due to mild dehydration and was given 1 L of normal saline in the ED. Follow-up a.m. labs. 05/24: Repeat serum sodium is 145. Potassium 4.4. Chloride 112. Discontinue IVfluid. 05/25: Patient has hyponatremia, sodium 150, hyperchloremia creatinine 18, [id number] with normal anion gap. Creatinine got worse 1.54. Repeat UA, urine osmolarity electrolytes ordered. [employer] consulted. Patient has Greer catheter 5. Acute on chronic debility ? PT/OT/case management consulted. Patient came from assisted living, has some degree of debility at baseline. Appreciate further therapy recommendations. 6. History of dysphagia ? Speech therapy consulted. Was found on modified barium swallow study back in October 2023 to have moderate oropharyngeal dysphagia. Admitted in December with concern for possible aspiration pneumonia. 05/24: Speech therapy evaluation once extubated 7. Possible COPD exacerbation with history of chronic tobacco use disorder: Patient is a everyday smoker. COPD is listed in the past medical history. Patient is being managed on scheduled bronchodilator, IV Solu-Medrol, Mucinex, incentive spirometry and Pep. Reportedly a current smoker. NRT available while inpatient as needed. Chronic medical conditions: ? Class I obesity: BMI 34 on admit. Complicates hospital course, care and prognosis. ? COPD: Acute hypoxic and hypercapnic respiratory failure as noted above but no wheezing on exam and have lower concern for COPD exacerbation. Will not treat with steroids or DuoNebs at this time. Continue home inhalers. ? Schizophrenia: [place] level ordered as above. Will continue home lithium andolanzapine at this time. ? GERD: Continue home PPI. ? Hypertension: Blood pressure soft after intubation with sedation, will hold home amlodipine and spironolactone for now. ? Hyperlipidemia: Continue home statin. DVT prophylaxis: Lovenox CODE STATUS: Full code, unverified 05/23/24 11:00 Blood Culture (Wb) - Anticubital Right Blood Culture - Preliminary 05/23/24 12:20 Sputum, Induced/Lukens Gram Stain - Final 05/23/24 12:20 Sputum, Induced/Lukens Respiratory Culture - Final Presumptive C albicans 05/23/24 11:20 Urine, Clean Catch Urine Culture - Final Gram negative behzad 05/23/24 11:20 Mucosa - Nose SARS-CoV-2, Influenza & RSV (PCR) - Final Laboratory Results 05/25/24 07:30: WBC 7.5, RBC 4.17 L, Hgb 13.8, Hct 44.9, MCV 107.7 H, MCH 33.1 H, MCHC 30.7 L, RDW Std Deviation 72.3 H, RDW Coeff of Babtaunde 18.1 H, Plt Count 138 L, MPV 10.1, Immature Gran % (Auto) 0.800, Neut % (Auto) 87.2 H, Lymph % (Auto) 5.5 L, Gove % (Auto) 6.4, Eos % (Auto) 0.0, Baso % (Auto) 0.1, Absolute Neuts (auto) 6.6, Absolute Lymphs (auto) 0.41 L, Nucleated RBC % 0, Anisocytosis RARE, Sodium 150 H, Potassium 4.6, Chloride 118 H, Carbon Dioxide 25.1, Anion Gap 7, BUN 23 H, Creatinine 1.54 H, Estim Creat Clear Calc 59.91, Est GFR (MDRD) Non-Af51 L, BUN/Creatinine Ratio 15.1, Glucose 181 H, Calcium 8.8, Total Bilirubin 0.58, AST 22, ALT 15, Alkaline Phosphatase 97, Total Protein 7.5, Albumin 3.4, Globulin 4.1, Albumin/Globulin Ratio 0.8 L 05/25/24 08:30: Vancomycin Trough 24.5 H Charges/Coding Visit Charges Inpatient E&M: 13709 Subs Hosp L3 05/25/24 1140 <Electronically signed by David Ruvalcaba MD> Cosigner Signature (if applicable): CC: ~ Signed [facility] Work Phone: 1(570) 850-177603-23-2025 Consult note Author Urmila Thakkar [facility] Note Date/Time May 25, 2024 11: 07am [facility] Medical Records Department [address] [place] [address] Pharmacokinetic/Renal -Consult 05/25/24 1106 MR#: [id number] Acct: [id number] Name: TONY ARIZA Rep #:[id number] : 1960 64 From: Urmila Thakkar PCP: MARY Chi Status: ADM IN Y Location: ICU ICU04-1 Consult Antibiotic Management Pharmacy has been consulted to manage selected antibiotic: Vancomycin Type of Intervention Type of Consult: Follow-up Labs Labs: Sodium 150 mmol/L (133-145) H 05/25/24 07:30 Potassium 4.6 mmol/L (3.3-5.1) 05/25/24 07:30 Chloride 118 mmol/L (98-108) H 05/25/24 07:30 Carbon Dioxide 25.1 mmol/L (21.0-32.0) 05/25/24 07:30 Anion Gap 7 (5-15) 05/25/24 07:30 BUN 23 mg/dL (4-19) H 05/25/24 07:30 Creatinine 1.54 mg/dL (0.70-1.20) H 05/25/24 07:30 Est GFR (MDRD) Non-Af 51 (>60) L 05/25/24 07:30 BUN/Creatinine Ratio 15.1 RATIO (10-20) 05/25/24 07:30 Glucose 181 mg/dL (70-99) H 05/25/24 07:30 Vancomycin Trough 24.5 ug/mL (5.0-15.0) H 05/25/24 08:30 Microbiology Microbiology: Microbiology 05/23/24 11:00 Blood Culture (Wb) - Anticubital Right Blood Culture - Preliminary 05/23/24 12:20 Sputum, Induced/Lukens Gram Stain - Final 05/23/24 12:20 Sputum, Induced/Lukens Respiratory Culture - Final Presumptive C albicans 05/23/24 11:20 Urine, Clean Catch Urine Culture - Final Gram negative behzad 05/23/24 11:20 Mucosa - Nose SARS-CoV-2, Influenza & RSV (PCR) - Final Goal Trough Goal Trough: 15-20 mcg/mL Pharmacy Plan for Drug Dosing Pharmacy Plan for Drug Dosing: VANCOMYCIN LEVEL RECEIVED Current Vancomycin Dose: 1250mg IV Q12hr Number of Doses Received: 3 (2 scheduled, 1 loading dose) Vancomycin Level: 24.5 Hours Since Last Dose: 11hr Renal Function: SCr 1.54 Renal Function Trend: Scr trending up (was 1.3 when vancomycin initiated) Lab/Micro: no new results Vancomycin Plan/Comments: Patient had a trough drawn which resulted in a value of 24.5 (goal 15-20). Patient's trough is supratherapeutic at this time. Will hold subsequent doses of vancomycin and recheck a random vancomycin trough level. Will resume vancomycin once trough is <20. Pending Level: *RANDOM* level 05/26/24 @0600 Pharmacy Service will continue to monitor and adjust dosing as required. 05/25/24 0532 <Electronically signed by Urmila Thakkar > Date _ Urmila Thakkar Cosigner Signature (if applicable): Date CC: ~ Signed [facility] Work Phone: 1(206) 873-100203-22-2025 Progress note Author Hollis Anderson [facility] Note Date/Time May 24, 2024 1:0 2pm [facility] Medical Records Department [address] [place] [address] Progress Note - 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 05/24/24 1207 MR#: [id number] Acct: [id number] Name: TOTONY Rep #:[id number] : 1960 64 From: Hollis Anderson MD PCP: Ingris Chu LOGGING TRACTOR OPERATORCarlosC Status: ADM IN Location: ICU ICU04-1 Objective Data Objective Data Vital Signs: Vital Signs Last response 3 Temperature 37.0 C 05/24/24 06:00 Temperature Source Core 05/24/24 06:00 Pulse Rate 64 05/24/24 09:28 Pulse Strength Normal (2+) 05/23/24 22:00 Respiratory Rate 20 H 05/24/24 09:28 Respiratory Effort Normal, Non-Labored 05/24/24 06:00 Respiratory Depth Normal 05/24/24 06:00 Respiratory Pattern Normal 05/24/24 09:28 Blood Pressure 118/73 05/24/24 06:00 Blood Pressure Mean 88 05/24/24 06:00 Blood Pressure Source Monitor 05/24/24 06:00 Blood Pressure Position Semi-Fowlers 05/24/24 06:00 Blood Pressure Location Right Arm 05/24/24 06:00 Pulse Ox 97 05/24/24 09:28 Oxygen Delivery Method Mechanical Ventilator 05/24/24 06:00 Oxygen Flow Rate (L/min) 6 05/23/24 11:39 Fraction of Inspired Oxygen (FIO2) 35 05/24/24 09:28 I&O: I&O Last 24 Hours 3 05/23/24 05/24/24 05/24/24 23:59 11:59 23:59 Intake Total 2141.11 / 2160.36 429.95 / 429.95 Output Total 2200 / 2200 3000 / 3000 Balance -58.89 / -39.64 -2570.05 / -2570.05 I&O: Total Stay 3 05/23/24 10:37 thru 05/24/24 11:45 Intake Total 2573.01 Output Total 5200 Balance -2626.99 Current Meds Ordered / Administered: Current meds ordered / Administered 3 Generic Name Dose Route Start Last Admin Trade Name Freq PRN Reason Stop Dose Admin Acetaminophen 650 mg 05/23/24 21:06 Acetaminophen 650 Mg/20 Ml Udc GT Q6H PRN PRN Pain 1-10 Or Fever>100.7 Albuterol/Ipratropium 3 ml 05/23/24 19:30 05/24/24 07:14 Ipratropium/Albuterol Sulfate 3 Ml Ampul.Neb INHALATION 3 ml Q6H.RT JUSTIN Administration Atorvastatin Calcium 10 mg 05/23/24 22:00 05/23/24 21:42 Atorvastatin Calcium 10 Mg Tablet GT 10 mg QHS JUSTIN Administration Budesonide 0.5 mg 05/23/24 19:30 05/24/24 07:14 Budesonide Respules 0.5 Mg/2 Ml Ampul.Neb. INHALATION 0.5 mg Q12H JUSTIN Administration Chlorhexidine Gluconate 15 ml 05/24/24 10:00 05/24/24 08:00 Chlorhexidine 15 Ml PO 15 ml BID JUSTIN Administration Cholecalciferol 50 mcg 05/23/24 22:00 05/23/24 21:42 Cholecalciferol (Vit D3) 25 Mcg Tablet (1,000 Units) GT 50 mcg QHS JUSTIN Administration Enoxaparin Sodium 40 mg 05/24/24 10:00 05/24/24 11:16 Enoxaparin 40 Mg/0.4 Ml Syringe SC 40 mg DAILY JUSTIN Administration Propofol 1,000 mg in 100 mls @ 6.162 mls/hr 05/23/24 11:35 05/24/24 11:00 Diprivan CONT INF 20 mcg/kg/min .Q12H JUSTIN 12.3 mls/hr Titration Protocol 10 MCG/KG/MIN Fentanyl 100 mls @ 5 mls/hr 05/23/24 12:00 05/24/24 11:00 CONT INF 50 mcg/hr UD JUSTIN 5 mls/hr Titration Protocol 50 MCG/HR Pantoprazole Sodium 40 mg/ 110 mls @ 330 mls/hr 05/23/24 22:00 05/23/24 21:25 Sodium Chloride IV Infused Q12 JUSTIN Infusion Piperacillin Sod/Tazobactam 50 mls @ 12.5 mls/hr 05/23/24 22:00 05/24/24 10:39 Sod 3.375 gm/ Sodium Chloride IV Infused Q8 JUSTIN Infusion Vancomycin IV-PHARMACY TO DOSE 500 mls @ 250 mls/hr 05/23/24 18:16 1 each/ Sodium Chloride IV X1 PRN Rx to Dose Protocol Sodium Chloride 100 mls @ 15 mls/hr 05/23/24 20:03 05/23/24 21:00 IV 15 mls/hr .Q6H40M PRN Administration Saline Flush Sodium Chloride 100 mls @ 15 mls/hr 05/23/24 20:03 05/23/24 21:01 IV 15 mls/hr .Q6H40M PRN Administration Additional IVPB Infusion Vancomycin HCl 1,250 mg/ 275 mls @ 167 mls/hr 05/24/24 09:00 05/24/24 10:42 Sodium Chloride IV 167 mls/hr Q12H JUSTIN Administration [place] Carbonate 600 mg 05/23/24 22:00 05/23/24 21:41 [place] Carbonate 300mg Capsule GT 600 mg QHS JUSTIN Administration Methylprednisolone Sodium Succinate 40 mg 05/24/24 14:00 Methylprednisolone Sod Succ 40 Mg/Ml Vial IV Q8 JUSTIN Montelukast Sodium 10 mg 05/24/24 10:00 05/24/24 11:17 Montelukast 10 Mg Tablet GT 10 mg DAILY JUSTIN Administration Olanzapine 10 mg 05/24/24 10:00 05/24/24 11:17 Olanzapine 10 Mg Tablet GT 10 mg DAILY JUSTIN Administration Protocol Olanzapine 20 mg 05/23/24 22:00 05/23/24 21:41 Olanzapine 10 Mg Tablet GT 20 mg QHS JUSTIN Administration Ondansetron HCl 4 mg 05/23/24 18:16 Ondansetron 4 Mg/2 Ml Vial IV Q8H PRN PRN NAUSEA/VOMITING Sodium Chloride 10 - 40 ml 05/23/24 17:52 05/23/24 21:02 0.9% Saline Lock 10 Ml Syringe IV 30 ml UD PRN Administration SALINE FLUSH Sodium Chloride 10 - 40 ml 05/23/24 20:03 0.9% Saline Lock 10 Ml Syringe IV UD PRN SALINE FLUSH Vancomycin Protocol 1 lab 05/25/24 07:30 Vancomycin Trough/Random Due [facility] 05/25/24 09:30 DAILY [facility] Lab / Micro Data 05/24/24 04:53 05/24/24 04:53 Labs: Laboratory Results - last 24 hr 05/23/24 11:00: WBC 5.1, RBC 3.70 L, Hgb 12.3 L, Hct 39.8 L, MCV 107.6 H, MCH 33.2 H, MCHC 30.9 L, RDW Std Deviation 67.9 H, RDW Coeff of Babatunde 17.2 H, Plt Count 79 L, MPV 10.3, Immature Gran % (Auto) 0.400, Neut % (Auto) 79.8 H, Lymph % (Auto) 10.9 L, Gove % (Auto) 6.4, Eos % (Auto) 2.1, Baso % (Auto) 0.4, Absolute Neuts (auto) 4.1, Absolute Lymphs (auto) 0.56 L, Nucleated RBC % 0.6, Platelet Estimate MOD DEC, Plt Morphology Comment CLUMPED, Polychromasia 1+, Anisocytosis 1+, PT 14.8, INR 1.1, APTT 25.5, Lactic Acid < 1.0, Total Creatine Kinase 40, Triglycerides 96 05/23/24 13:17: Troponin T Hi Sens 2 Hr 36 H, NT pro BNP II 249, Procalcitonin 0.11 05/23/24 20:45: Troponin T Hi Sens 4Hr 37 H, [place] 1.01 05/23/24 21:55: Urine Opiates Screen NEGATIVE, U Buprenorphine Qual NEGATIVE, UrOxycodone Screen NEGATIVE, Urine Methadone Screen NEGATIVE, Urine Fentanyl Screen PRESUMPTIVE POSITIVE, Ur Barbiturates Screen NEGATIVE, Ur Phencyclidine Scrn NEGATIVE, Ur Amphetamines Screen NEGATIVE, U Benzodiazepines Scrn NEGATIVE,Urine Cocaine Screen NEGATIVE, U Cannabinoids Screen NEGATIVE 05/24/24 04:53: WBC 6.0, RBC 3.84 L, Hgb 12.8 L, Hct 41.0, MCV 106.8 H, MCH 33.3H, MCHC 31.2 L, RDW Std Deviation 69.0 H, RDW Coeff of Babatunde 17.6 H, Plt Count 138L, MPV 10.3, Sodium 145, Potassium 4.4, Chloride 112 H, Carbon Dioxide 26.9, Anion Gap 7, BUN 11, Creatinine 1.26 H, Estim Creat Clear Calc 70.61, Est GFR (MDRD) Non-Af 64, BUN/Creatinine Ratio 8.6 L, Glucose 100 H, Calcium 8.5, C-React Prot Ext Range 44.50 H Micro: Microbiology 05/23/24 12:20 Sputum, Induced/Lukens Respiratory Culture - Preliminary Culture exhibits no growth. 05/23/24 11:20 Urine, Clean Catch Urine Culture - Preliminary Gram negative behzad 05/23/24 11:20 Mucosa - Nose SARS-CoV-2, Influenza & RSV (PCR) - Final ABG Data ABG results: ABG 05/23/24 05/24/24 13:12 05:55 Specimen Type ART ART Sample Site R Radial L Radial pH 7.30 L 7.43 Bicarbonate Actual 35.1 H 31.3 H Total CO2 37 33 Base Excess 9 H 7 H O2 Saturation 86 L 90 L O2 % 50.0 35.0 ABG pCO2 71.8 H* 47.5 H ABG pO2 60 L 59 L Leah Test Positive Positive Respiration Rate 14 20 O2 Delivery Device Adult Vent Adult Vent Vent Mode AC AC Tidal Volume 450.0 450.0 POC PEEP 5 5 Crit Call To/Read Back Yes Blood Gas Notified Whom aleskandar Blood Gas Notified Time 13:13:42 Rhythm Strip Rhythm Strip: Sinus Rhythm Rate: 95 Ectopy: None Imaging Radiology Impression Chest X-Ray 05/23/24 11:09 IMPRESSION: Cardiomegaly with mild congestion. Reading Location: [facility] Brain CT 05/23/24 11:10 IMPRESSION: Mild degree of cerebral atrophy. Reading Location: [facility] Assessment and Plan . Assessment and plan: Pt seen and examined. Intubated, sedated. Easily agitated when sedation lightened this AM. Prop @ 20 Fent @ 50 20 450 5 35 PE: General: morbidly obese acute on chronically ill appearing male; +MV HEENT: anicteric Sclera; + ETT, nl nose; supple neck, no masses Cardiovascular: Regular Rate and Rhythm; No murmurs, rubs, gallops; no displacedPMI Respiratory: diminished; no crackles, wheezes, or rhonchi Abdominal: Non-tender; Non distended; hypoBS x 4; No Hepatosplenomegaly Extremities: Warm, extensive LE wounds to feet/toes and chronic venous stasis dermatitis; No clubbing, cyanosis; capillary refill < 2 sec Neurological: sedated and responsive but easily agitated A/P: #Acute hypoxemic respiratory failure: intubated primarily for airway protection;cont MV; settings reviewed/adjusted; SAT/SBT as tolerated but limited due to mentation/agitation at this time; trial Precedex forward strategy #Acute toxic metabolic encephalopathy: CT head no acute abnormalities; UDS/UTox neg; ?medication effect; continuing home lithium and olanzapine via NGT #?COPD exacerbation: cont nebs + IV steroids #B/L LE wounds (extensive to feet) & venous stasis dermatitis with ?cellulitis: cont on emp vanc/Zosyn without any strong suspicion of infection, nasal MRSA positive --> de-esc Abx if Cx neg x48h and if no active infection identified; cont wound care #NILESH vs CKD: nonoliguric; cont monitor #Acute hyponatremia: resolved, monitor #Active tobacco abuse: counseling re: cessation when appropriate #Chronic dysphagia: ST F/U when appropriate #Schizophrenia: cont home meds #Chronic debility: PT/OT when appropriate NPO --> start TFs LMWH, PPI Guarded prognosis Critical Care Time: 50 min The entirety of this encounter was done via Telemedicine 05/24/24 1302 <Electronically signed by Hollis Anderson MD> Cosigner Signature (if applicable): CC: ~ Signed [facility] Work Phone: [phone]) [phone] NoteAcceptable Specimen? Acceptable Specimen(Evaluation not needed) Gram Stain Rare White Blood Cells No organisms seen No Epithelial cellsWWVUMedicine Harrison Community HospitalComment on above:Performed By: #### M100.2000, M100.2400 ####[facility] [address] [place], [address](851) [phone] Progress note Author David Ruvalcaba [facility] Note Date/Time May 24, 2024 9:0 0am [facility] Medical Records Department [address] [place] [address] Progress Note - Hospitalist 05/24/24 0724 MR#: [id number] Acct: [id number] Name: TONY ARIZA Rep #:[id number] : 1960 64 From: David Pierre PCP: Ingris Chu, LOGGING TRACTOR OPERATOR-C Status: ADM IN Location: ICU ICU04-1 Reason for Visit Reason for Visit: Diagnoses Venous insufficiency (chronic) (peripheral) (05/23/24) Acute respiratory failure with hypoxia (05/23/24) Acute respiratory failure with hypercapnia (05/23/24) Objective Data Objective Data Vital Signs: Vital Signs Temp Pulse Resp BP Pulse Ox O2 Del Method O2 Flow Rate 98.6 F 64 20 H 118/73 97 Mechanical Ventilator 6 05/24/24 06:00 05/24/24 06:00 05/24/24 06:00 05/24/24 06:00 05/24/24 06:00 05/24/24 06:00 05/23/24 11:39 FiO2 35 05/24/24 06:00 Oxygen Flow Rate (L/min) 6 Oxygen Delivery Method Mechanical Ventilator Weight: 248 lb 14.43 oz Body Mass Index (BMI) 37.7 Intake & Output: Intake and Output for Last 24 Hours 05/22/24 05/23/24 05/24/24 23:59 23:59 23:59 Intake Total 2143.06 / 2160.36 166.05 / 166.05 Output Total 2200 / 2200 1800 / 1800 Balance -56.94 / -39.64 -1633.95 / -1633.95 Lab / Micro Data 05/24/24 04:53 05/24/24 04:53 Labs: Laboratory Results - last 24 hr 05/23/24 11:00: WBC 5.1, RBC 3.70 L, Hgb 12.3 L, Hct 39.8 L, MCV 107.6 H, MCH 33.2 H, MCHC 30.9 L, RDW Std Deviation 67.9 H, RDW Coeff of Babatunde 17.2 H, Plt Count 79 L, MPV 10.3, Immature Gran % (Auto) 0.400, Neut % (Auto) 79.8 H, Lymph % (Auto) 10.9 L, Gove % (Auto) 6.4, Eos % (Auto) 2.1, Baso % (Auto) 0.4, Absolute Neuts (auto) 4.1, Absolute Lymphs (auto) 0.56 L, Nucleated RBC % 0.6, Platelet Estimate MOD DEC, Plt Morphology Comment CLUMPED, Polychromasia 1+, Anisocytosis 1+, PT 14.8, INR 1.1, APTT 25.5, Sodium 131 L, Potassium 4.9, Chloride 96 L, Carbon Dioxide 25.6, Anion Gap 9, BUN 10, Creatinine 1.30 H, EstimCreat Clear Calc 68.43, Est GFR (MDRD) Non-Af 62, BUN/Creatinine Ratio 7.9 L, Glucose 99, Lactic Acid < 1.0, Calcium 8.8, Total Bilirubin 0.70, AST 23, ALT 15, Alkaline Phosphatase 100, Total Creatine Kinase 40, Troponin T High Sens 35 H, Total Protein 8.4, Albumin 3.9, Globulin 4.5 H, Albumin/Globulin Ratio 0.9, Triglycerides 96 05/23/24 11:20: Urine Color Yellow, Urine Clarity Clear, Urine pH 6.0, Ur Specific [place] 1.010, Urine Protein 30 H, Urine Glucose (UA) Normal, Urine Ketones Negative, Urine Occult Blood Negative, Urine Nitrite Negative, Urine Bilirubin Negative, Urine Urobilinogen Normal, Ur Leukocyte Esterase 25 H, UrineRBC 0 SEEN, Urine WBC 0-5 SEEN, Ur Squamous Epith Cells 0 SEEN, Urine Bacteria 0SEEN, Urine Mucus 0 SEEN 05/23/24 13:17: Troponin T Hi Sens 2 Hr 36 H, NT pro BNP II 249, Procalcitonin 0.11 05/23/24 20:45: Troponin T Hi Sens 4Hr 37 H, [place] 1.01 05/23/24 21:55: Urine Opiates Screen NEGATIVE, U Buprenorphine Qual NEGATIVE, UrOxycodone Screen NEGATIVE, Urine Methadone Screen NEGATIVE, Urine Fentanyl Screen PRESUMPTIVE POSITIVE, Ur Barbiturates Screen NEGATIVE, Ur Phencyclidine Scrn NEGATIVE, Ur Amphetamines Screen NEGATIVE, U Benzodiazepines Scrn NEGATIVE,Urine Cocaine Screen NEGATIVE, U Cannabinoids Screen NEGATIVE 05/24/24 04:53: WBC 6.0, RBC 3.84 L, Hgb 12.8 L, Hct 41.0, MCV 106.8 H, MCH 33.3H, MCHC 31.2 L, RDW Std Deviation 69.0 H, RDW Coeff of Babatunde 17.6 H, Plt Count 138L, MPV 10.3, Sodium 145, Potassium 4.4, Chloride 112 H, Carbon Dioxide 26.9, Anion Gap 7, BUN 11, Creatinine 1.26 H, Estim Creat Clear Calc 70.61, Est GFR (MDRD) Non-Af 64, BUN/Creatinine Ratio 8.6 L, Glucose 100 H, Calcium 8.5, C-React Prot Ext Range 44.50 H Micro: Microbiology 05/23/24 11:20 Mucosa - Nose SARS-CoV-2, Influenza & RSV (PCR) - Final ABG Data ABG results: ABG 05/23/24 05/23/24 05/24/24 11:06 13:12 05:55 Specimen Type ART ART ART Sample Site R Radial R Radial L Radial pH 7.27 L 7.30 L 7.43 Bicarbonate Actual 33.1 H 35.1 H 31.3 H Total CO2 35 37 33 Base Excess 6 H 9 H 7 H O2 Saturation 70 L 86 L 90 L O2 % 6.0 50.0 35.0 ABG pCO2 72.3 H* 71.8 H* 47.5 H ABG pO2 44 L 60 L 59 L Leah Test Positive Positive Positive Respiration Rate 14 20 O2 Delivery Device Cannula Adult Vent Adult Vent Vent Mode Not entered [facility] Tidal Volume 450.0 450.0 POC PEEP 5 5 Crit Call To/Read Back Yes Yes Blood Gas Notified Whom aleksandar aleksandar Blood Gas Notified Time 11:08:22 13:13:42 Radiography Diagnostic Testing: Radiology Impression Chest X-Ray 05/23/24 11:09 IMPRESSION: Cardiomegaly with mild congestion. Reading Location: [facility] Brain CT 05/23/24 11:10 IMPRESSION: Mild degree of cerebral atrophy. Reading Location: [facility] Rhythm Strip Rhythm Strip: Sinus Rhythm Rate: 95 Ectopy: None Physical Exam Narrative Seen and examined. Patient is intubated on ventilator. Patient was admitted from [facility] with chief complaint of altered mental status, hypoxia, SpO2 66% on roomair and patient was put on nonrebreather. Patient's feet were malodorous with chronically superficial ulcerations Patient was febrile 100.4 Fahrenheit in the ED. Maintaining his blood pressure,did not require pressors. On 35% FiO2, PEEP 5 Physical exam General: Sedated, intubated HEENT: Atraumatic, PERRLA, EOMI, Normocephalic Oral: ET and OG tube Neck: Supple, Negative Carotid Bruits, could not examine JVD on mechanical ventilator Chest wall/Lungs: Air entry diminished in bilateral lung bases. No crepitation/rhonchi Cardiovascular: Regular rate, Regular Rhythm, Normal S1, Normal S2, No M/G/R Abdomen: Bowel Sounds Present, Soft, Non Tender, Non-Distended : No dysuria. No renal angle tenderness. No suprapubic tenderness. Extremities: No edema, Capillary Refill Less than 3 Seconds Skin: Bilateral feet superficial ulcerated, malodorous, chronically infected. Bilateral legs, venous hypertension/stasis dermatitis Musculoskeletal: No Tenderness to Palpation of Joints or Extremities Neurological: Sedated Psych/Mental Status: Seated Assessment & Plan Assessment/Plan (1) Acute respiratory failure with hypoxia and hypercapnia: (2) Chronic venous stasis dermatitis of both lower extremities: PLAN: Plan Patient is a 64-year-old male who presented [facility] ED on 05/23/2024 with altered mentation status 1. Acute hypoxic and hypercapnic respiratory failure most likely due to COPD ? Admit under inpatient status to ICU. 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 consulted. ABG in ED on nasal cannula showed pH 7.27, pCO2 72, pO2 40. Chest x-ray showed cardiomegaly with mild vascular congestion. Unclear etiology but respiratory failure may be secondary to decreased respiratory drive in setting of acute encephalopathy is notable low. BNP normal. 2D echo is ordered continue mechanical ventilation atthis time. 05/24: ABG shows 7.43/47.5/59 on 35% FiO2, PEEP 5, TV 450 mL. 2. Acute toxic/metabolic encephalopathy, unclear etiology possible metabolic from high pCO2: Patient was very somnolent from assisted living. Has history of schizophrenia and is on lithium, olanzapine and fluphenazine every 2 weeks Patient currently sedated while on mechanical ventilation. Okay to continue home lithium and olanzapine for now if they can be given through OG tube. Appreciate further steam tender recommendations. Serum lithium level is 1.01. CRP elevated. U tox negative. Triple PCR for SARS-CoV-2, flu and RSV are negative 3. Severe chronic venous stasis dermatitis with concern for cellulitis ? Patient with severe venous stasis changes noted in the ED. [place] superficial ulceration of toes, interdigital space and dorsum of the foot. Plantar surface could not be examined. lactic acid normal. Procalcitonin normal. Sepsis ruled out 4. Mild hyponatremia ? Sodium 131 on admit. Chloride 96 and creatinine 1.30, mildly elevated from baseline 1.1-1.2. Suspect due to mild dehydration and was given 1 L of normal saline in the ED. Follow-up a.m. labs. 05/24: Repeat serum sodium is 145. Potassium 4.4. Chloride 112. Discontinue IVfluid. 5. Acute on chronic debility ? PT/OT/case management consulted. Patient came from assisted living, has some degree of debility at baseline. Appreciate further therapy recommendations. 6. History of dysphagia ? Speech therapy consulted. Was found on modified barium swallow study back in October 2023 to have moderate oropharyngeal dysphagia. Admitted in December with concern for possible aspiration pneumonia. 05/24: Speech therapy evaluation once extubated 7. Possible COPD exacerbation with history of chronic tobacco use disorder: Patient is a everyday smoker. COPD is listed in the past medical history. Patient is being managed on scheduled bronchodilator, IV Solu-Medrol, Mucinex, incentive spirometry and Pep. Reportedly a current smoker. NRT available while inpatient as needed. Chronic medical conditions: ? Class I obesity: BMI 34 on admit. Complicates hospital course, care and prognosis. ? COPD: Acute hypoxic and hypercapnic respiratory failure as noted above but no wheezing on exam and have lower concern for COPD exacerbation. Will not treat with steroids or DuoNebs at this time. Continue home inhalers. ? Schizophrenia: [place] level ordered as above. Will continue home lithium andolanzapine at this time. ? GERD: Continue home PPI. ? Hypertension: Blood pressure soft after intubation with sedation, will hold home amlodipine and spironolactone for now. ? Hyperlipidemia: Continue home statin. DVT prophylaxis: Lovenox CODE STATUS: Full code, unverified Charges/Coding Visit Charges Inpatient E&M: 84215 Subs Hosp L3 05/24/24 0900 <Electronically signed by David Ruvalcaba MD> Cosigner Signature (if applicable): CC: ~ Signed [facility] Work Phone: 1(716) 745-640003-21-2025 Consult note Author Raymond Bonilla [facility] Note Date/Time May 23, 2024 9:1 0pm [facility] Medical Records Department [address] [place] [address] Pharmacokinetic/Renal -Consult 05/23/242108 MR#: [id number] Acct: [id number] Name: TONY ARIZA Rep #:[id number] : 1960 64 From: Raymond Villarreal od PCP: MARY Chi Status: ADM IN Y Location: ICU ICU04-1 Consult Antibiotic Management Pharmacy has been consulted to manage selected antibiotic: Vancomycin Type of Intervention Type of Consult: New start Labs Labs: Sodium 131 mmol/L (133-145) L 05/23/24 11:00 Potassium 4.9 mmol/L (3.3-5.1) 05/23/24 11:00 Chloride 96 mmol/L (98-108) L 05/23/24 11:00 Carbon Dioxide 25.6 mmol/L (21.0-32.0) 05/23/24 11:00 Anion Gap 9 (5-15) 05/23/24 11:00 BUN 10 mg/dL (4-19) 05/23/24 11:00 Creatinine 1.30 mg/dL (0.70-1.20) H 05/23/24 11:00 Est GFR (MDRD) Non-Af 62 (>60) 05/23/24 11:00 BUN/Creatinine Ratio 7.9 RATIO (10-20) L 05/23/24 11:00 Glucose 99 mg/dL (70-99) 05/23/24 11:00 Microbiology Microbiology: Microbiology 05/23/24 11:20 Mucosa - Nose SARS-CoV-2, Influenza & RSV (PCR) - Final Dosing Weight Weight used for dosin.7 kg Estimated Creatinine Clearance Estimated Creatinine Clearance: 68 Goal Trough Goal Trough: 15-20 mcg/mL Pharmacy Plan for Drug Dosing Pharmacy Plan for Drug Dosing: Pharmacy Service will continue to monitor and adjust dosing as required. 2000MG LOADING DOSE GIVEN @ 2049. START 1250MG Q12H AND DRAW TROUGH PRIOR TO 4TH DOSE Follow-Up Labs Follow-Up Labs: Trough: Vancomycin Date/Time Labs Ordered Labs to be done on [date and time ordered]: 05/25 @ 0830 05/23/242109 <Electronically signed by Raymond smith> Date _ Raymond Ochoa Signature (if applicable): Date CC: ~ Signed [facility] Work Phone: 1(885) 447-712903-21-2025 Consult note Author Dominic Bear [facility] Note Date/Time May 23, 2024 7:2 5pm [facility] Medical Records Department [address] [place] [address] Consultation - 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 05/23/24 190 MR#: [id number] Acct: [id number] Name: TONY ARIZA Rep #:[id number] : 1960 64 From: Dominic Bear MD PCP: Ingris Chu, LOGGING TRACTOR OPERATOR-C Status: ADM IN Location: ICU ICU04-1 HPI Consult Data Date of Consult: 05/23/24 HPI Narrative Reason for Consultation: AECOPD, mechanical ventilation HPI Narrative: HPI Review: Obtained per EMR as the patient is intubated and unable to provide history for me. TONY ARIZA, is a 64 M who presented to [facility] ED on 05/23/2024 with altered mentation. Patient came from assisted living. Medical history is significant for COPD, schizophrenia, chronic venous stasis dermatitis, dysphagia and debility. Was last hospitalized here in December for acute hypoxic respiratory failure secondary to COPD exacerbation with suspected aspiration pneumonia. On arrival to the ED today patient was very somnolent and not answering any questions for staff. ABG showed pH 7.27, pCO2 72, pO2 70 on room air. He was placed on BiPAP but remained very somnolent, so decision was made to intubate him. He was intubated without issue. Staff did note that he began to have agitation postintubation and was requiring fairly high sedation requirements. Repeat ABG done on arrival to ICU and per bedside nurse was more compensated that the ABG in record from ~1300. [facility] Medical History Hypercarbia Aspiration pneumonia Hypoxemia GERD (gastroesophageal reflux disease) Sepsis Tobacco abuse Schizophrenia COPD exacerbation Bipolar disorder Home Medications ?Medication ?Instructions ?Recorded ?Last Taken ?Type olanzapine 10 mg tablet 10 mg PO DAILY 02/18/15 Unkn own History omeprazole 20 mg capsule,delayed 20 mg PO BID 02/18/15 Unknown History release spironolactone 25 mg tablet 25 mg PO DAILY 02/18/15 Un known History fluphenazine decanoate 25 mg/mL 25 mg IM Q14D PARANOID 07/29/16 Unknown History injection solution SCHIZOPHRENIA montelukast 10 mg tablet 10 mg PO DAILY 05/02/18 Unkn own History olanzapine 20 mg tablet (Zyprexa) 20 mg PO QHS 9 Unknown History omega-3 fatty acids-fish oil 300 2 capsule PO BID defi ciency 05/02/18 10/29/23 History mg-1,000 mg capsule simvastatin 20 mg tablet (Zocor) 20 mg PO QHS 05/02/18 Unknown History amlodipine 5 mg tablet 5 mg PO DAILY bp 03/22/23 Un known History ammonium lactate 12 % topical cream 1 applic topical B ID skin 10/30/23 10/29/23 History irritation multivitamin (Daily Multi-Vitamin 1 tab PO DAILY repla cement 12/09/23 Unknown History tablet) acetaminophen 325 mg tablet 650 mg PO Q4H PRN fever or pain 05/23/24 Unknown History acetaminophen 650 mg rectal 650 mg AZ Q4H PRN pain Unknown History suppository aluminum-mag hydroxide-simethicone 30 ml PO Q4H PRN in digestion 05/23/24 Unknown History 400 mg-400 mg-40 mg/5 mL oral susp (Mintox Maximum Strength) amoxicillin 875 mg-potassium 1 tab PO Q12H 05/23/24 Un known History clavulanate 125 mg tablet bisacodyl 10 mg rectal suppository 10 mg AZ DAILY PRN CONSTIPATION 05/23/24 Unknown History cholecalciferol (vitamin D3) 50 50 mcg PO QHS SUPPLEME NT 05/23/24 Unknown History mcg (2,000 unit) tablet (D3 DOTS) lithium carbonate 600 mg capsule 600 mg PO QHS BIPOLAR 05/23/24 Unknown History magnesium hydroxide 400 mg/5 mL 30 ml PO DAILY PRN con stipation 05/23/24 Unknown History oral suspension (Dulcolax (magnesium hydroxide)) melatonin 5 mg tablet 5 mg PO QHS 05/23/24 Unknown History menthol 10 % topical cream 1 applic topical Q12H PRN p ain 05/23/24 Unknown History (Biofreeze (menthol)) sodium phosphates 19 gram-7 118 ml AZ BID PRN constipa tion 05/23/24 Unknown History gram/118 mL enema (Fleet Enema) trazodone 50 mg tablet 50 mg PO QHS sleep 05/23/24 Unknown History Allergy/AdvReac Type Severity Reaction Status Date / Time codeine AdvReac Upset Verified 12/08/23 16:08 Stomach haloperidol (From Haldol) AdvReac Abd Verified 12/08/23 16:08 cramps/diarrhea haloperidol lactate (From AdvReac Abd Verified 12/08/23 16:08 Haldol) cramps/diarrhea ziprasidone AdvReac Unknown Verified 12/08/23 16:08 Family History Mother Diabetes Surgical History S/P right knee arthroscopy S/P laparoscopic cholecystectomy History of esophagogastroduodenoscopy (EGD) S/P bilateral inguinal hernia repair Social History Smoking Status: Current every day smoker tobacco type: cigarettes ROS Review of Systems ROS Unobtainable: due to endotracheal tube and due to mental status Objective Data Objective Data Vital Signs: Vital Signs Last response 3 Temperature 36.7 C 05/23/24 14:32 Temperature Source Temporal 05/23/24 12:00 Pulse Rate 71 05/23/24 18:00 Respiratory Rate 20 H 05/23/24 18:00 Respiratory Effort Mechanically Ventilated 05/23/24 18:00 Respiratory Depth Deep 05/23/24 11:39 Respiratory Pattern Tachypnea 05/23/24 11:39 Blood Pressure 125/67 H 05/23/24 18:00 Blood Pressure Mean 86 05/23/24 18:00 Blood Pressure Source Monitor 05/23/24 18:00 Blood Pressure Position Semi-Fowlers 05/23/24 18:00 Blood Pressure Location Right Arm 05/23/24 18:00 Pulse Ox 100 05/23/24 18:00 Oxygen Delivery Method Mechanical Ventilator 05/23/24 18:00 Oxygen Flow Rate (L/min) 6 05/23/24 11:39 Fraction of Inspired Oxygen (FIO2) 100 05/23/24 18:00 I&O: I&O Last 24 Hours 3 05/22/24 05/23/24 05/23/24 23:59 11:59 23:59 Intake Total 1.95 / 1156.56 1154.61 / 1156.56 Output Total 1200 / 1200 Balance 1.95 / -43.44 -45.39 / -43.44 I&O: Total Stay 3 05/23/24 10:37 thru 05/23/24 18:00 Intake Total 1156.56 Output Total 1200 Balance -43.44 Current Meds Ordered / Administered: Current meds ordered / Administered 3 Generic Name Dose Route Start Last Admin Trade Name Freq PRN Reason Stop Dose Admin Acetaminophen 650 mg 05/23/24 18:16 Acetaminophen 325 Mg Tablet PO Q6H PRN PRN Pain 1-10 Or Fever>100.7 Atorvastatin Calcium 10 mg 05/23/24 22:00 Atorvastatin Calcium 10 Mg Tablet PO QHS [facility] Cholecalciferol 50 mcg 05/23/24 22:00 Cholecalciferol (Vit D3) 25 Mcg Tablet (1,000 Units) PO QHS [facility] Enoxaparin Sodium 40 mg 05/24/24 10:00 Enoxaparin 40 Mg/0.4 Ml Syringe SC DAILY [facility] Propofol 1,000 mg in 100 mls @ 6.162 mls/hr 05/23/24 11:35 05/23/24 18:00 Diprivan CONT INF 20 mcg/kg/min .Q12H JUSTIN 12.3 mls/hr Titration Protocol 10 MCG/KG/MIN Fentanyl 100 mls @ 5 mls/hr 05/23/24 12:00 05/23/24 18:00 CONT INF 50 mcg/hr UD JUSTIN 5 mls/hr Titration Protocol 50 MCG/HR Pantoprazole Sodium 40 mg/ 110 mls @ 330 mls/hr 05/23/24 22:00 Sodium Chloride IV Q12 JUSTIN Piperacillin Sod/Tazobactam 50 mls @ 12.5 mls/hr 05/23/24 22:00 Sod 3.375 gm/ Sodium Chloride IV Q8 JUSTIN Vancomycin IV-PHARMACY TO DOSE 500 mls @ 250 mls/hr 05/23/24 18:16 1 each/ Sodium Chloride IV X1 PRN Rx to Dose Protocol Vancomycin HCl 2,000 mg/ 540 mls @ 250 mls/hr 05/23/24 19:00 Sodium Chloride IV 05/23/24 21:09 X1 ONE [place] Carbonate 600 mg 05/23/24 22:00 [place] Carbonate 300mg Capsule PO QHS [facility] Montelukast Sodium 10 mg 05/24/24 10:00 Montelukast 10 Mg Tablet PO DAILY [facility] Olanzapine 10 mg 05/24/24 10:00 Olanzapine 10 Mg Tablet PO DAILY [facility] Protocol Olanzapine 20 mg 05/23/24 22:00 Olanzapine 10 Mg Tablet PO QHS [facility] Ondansetron HCl 4 mg 05/23/24 18:16 Ondansetron 4 Mg/2 Ml Vial IV Q8H PRN PRN NAUSEA/VOMITING Sodium Chloride 10 - 40 ml 05/23/24 17:52 0.9% Saline Lock 10 Ml Syringe IV UD PRN SALINE FLUSH Physical Exam Const Constitutional Narrative: obese body habitus General Appearance: patient mechanically ventilated HEENT normocephalic and head/scalp atraumatic HEENT Narrative: dry membranes Eyes no scleral icterus Chest inspection of chest normal Resp Resp Narrative: moving air well on ACVC 20/450/5/60 Peak pressure 21cwp and plat 18cwp Auscultation: clear to auscultation bilaterally Cardio regular rate and regular rhythm GI normal to inspection, nondistended, normoactive bowel sounds, soft to palpation and non-tender Extremity no clubbing, cyanosis or edema Skin General Skin Exam: lichenification and venous stasis Neuro Sensorium / Orientation: sedated on vent Lab / Micro Data 05/23/24 11:00 05/23/24 11:00 Labs: Laboratory Results - last 24 hr 05/23/24 11:00: WBC 5.1, RBC 3.70 L, Hgb 12.3 L, Hct 39.8 L, MCV 107.6 H, MCH 33.2 H, MCHC 30.9 L, RDW Std Deviation 67.9 H, RDW Coeff of Babatunde 17.2 H, Plt Count 79 L, MPV 10.3, Immature Gran % (Auto) 0.400, Neut % (Auto) 79.8 H, Lymph % (Auto) 10.9 L, Gove % (Auto) 6.4, Eos % (Auto) 2.1, Baso % (Auto) 0.4, Absolute Neuts (auto) 4.1, Absolute Lymphs (auto) 0.56 L, Nucleated RBC % 0.6, Platelet Estimate MOD DEC, Plt Morphology Comment CLUMPED, Polychromasia 1+, Anisocytosis 1+, PT 14.8, INR 1.1, APTT 25.5, Sodium 131 L, Potassium 4.9, Chloride 96 L, Carbon Dioxide 25.6, Anion Gap 9, BUN 10, Creatinine 1.30 H, EstimCreat Clear Calc 68.43, Est GFR (MDRD) Non-Af 62, BUN/Creatinine Ratio 7.9 L, Glucose 99, Lactic Acid < 1.0, Calcium 8.8, Total Bilirubin 0.70, AST 23, ALT 15, Alkaline Phosphatase 100, Total Creatine Kinase 40, Troponin T High Sens 35 H, Total Protein 8.4, Albumin 3.9, Globulin 4.5 H, Albumin/Globulin Ratio 0.9, Triglycerides 96 05/23/24 11:20: Urine Color Yellow, Urine Clarity Clear, Urine pH 6.0, Ur Specific [place] 1.010, Urine Protein 30 H, Urine Glucose (UA) Normal, Urine Ketones Negative, Urine Occult Blood Negative, Urine Nitrite Negative, Urine Bilirubin Negative, Urine Urobilinogen Normal, Ur Leukocyte Esterase 25 H, UrineRBC 0 SEEN, Urine WBC 0-5 SEEN, Ur Squamous Epith Cells 0 SEEN, Urine Bacteria 0SEEN, Urine Mucus 0 SEEN 05/23/24 13:17: Troponin T Hi Sens 2 Hr 36 H, NT pro BNP II 249 Micro: Microbiology 05/23/24 11:20 Mucosa - Nose SARS-CoV-2, Influenza & RSV (PCR) - Final ABG Data ABG results: ABG 05/23/24 05/23/24 11:06 13:12 Specimen Type ART ART Sample Site R Radial R Radial pH 7.27 L 7.30 L Bicarbonate Actual 33.1 H 35.1 H Total CO2 35 37 Base Excess 6 H 9 H O2 Saturation 70 L 86 L O2 % 6.0 50.0 ABG pCO2 72.3 H* 71.8 H* ABG pO2 44 L 60 L Leah Test Positive Positive Respiration Rate 14 O2 Delivery Device Cannula Adult Vent Vent Mode Not entered AC Tidal Volume 450.0 POC PEEP 5 Crit Call To/Read Back Yes Yes Blood Gas Notified Whom aleksandar aleksandar Blood Gas Notified Time 11:08:22 13:13:42 Rhythm Strip Rhythm Strip: Sinus Rhythm Rate: 95 Ectopy: None Imaging Radiology Impression Chest X-Ray 05/23/24 11:09 IMPRESSION: Cardiomegaly with mild congestion. Reading Location: [facility] Brain CT 05/23/24 11:10 IMPRESSION: Mild degree of cerebral atrophy. Reading Location: [place] [address] CXR reviewed personally and compared with prior - chronic bilateral hemidiaphragmatic elevation and atelectasis, no effusion, no edema, no clear PNA Assessment and Plan . Assessment and plan: ICU Problem List: Acute hypercapnic and hypoxemic respiratory failure severe exacerbation of severe COPD obesity and alveolar hypoventilation ?central apnea from medications? Plan: propofol monotherapy for SAT in AM repeat ABG and CXR in AM duoneb and budesonide scheduled q6h can defer IV steroid at this time CRP level evaluated for abx indication Dominic Bear MD [facility] Access TeleCare Critical Care Time: 61 min The entirety of this encounter was done via Telemedicine 05/23/241924 <Electronically signed by Dominic Bear MD> Cosigner Signature (if applicable): CC: LOGGING TRACTOR OPERATOR-C Ingris Chu~ Signed [facility] Work Phone: 1([phone] 223-653503-21-2025 History and physical note Author Robson George [facility] Note Date/Time May 23, 2024 5:1 7pm [facility] Medical Records Department [address] [place] [address] H&P Exam - Hospitalist 05/23/24 1403 MR#: [id number] Acct: [id number] Name: TONY ARIZA Gabby Rep #:[id number] : 1960 64 From: Robson Xiao doni [place] PCP: MARY Chi Status: ADM IN Location: ICU ICU04-1 HPI - General General Date of Admission: 05/23/24 Date of Service: 05/23/24 Chief Complaint: Altered mentation HPI Narrative TONY ARIZA, is a 64 M who presented to [facility] ED on 05/23/2024 with altered mentation. Patient came from assisted living. Medical history is significant for COPD, schizophrenia, chronic venous stasis dermatitis, dysphagia and debility. Was last hospitalized here in December for acute hypoxic respiratory failure secondary to COPD exacerbation with suspected aspiration pneumonia. On arrival to the ED today patient was very somnolent andnot answering any questions for staff. ABG showed pH 7.27, pCO2 72, pO2 70 on room air. He was placed on BiPAP but remained very somnolent, so decision was made to intubate him. He was intubated without issue. Staff did note that he began to have agitation postintubation and was requiring fairly high sedation requirements. Given all of these things, hospitalist was contacted for admission. I saw the patient at bedside in the ED. He was intubated and sedated. He had nonpurposeful movements noted but did not respond to command. Will be admitted for further management. [facility] Medical History (Updated 05/23/24 @ 16:[address] Bret Nunes MD) Hypercarbia Aspiration pneumonia Hypoxemia GERD (gastroesophageal reflux disease) Sepsis Tobacco abuse Schizophrenia COPD exacerbation Bipolar disorder Home Medications ?Medication ?Instructions ?Recorded ?Last Taken ?Type olanzapine 10 mg tablet 10 mg PO DAILY 02/18/15 Unkn own History omeprazole 20 mg capsule,delayed 20 mg PO BID 02/18/15 Unknown History release spironolactone 25 mg tablet 25 mg PO DAILY 02/18/15 Un known History fluphenazine decanoate 25 mg/mL 25 mg IM Q14D PARANOID 07/29/16 Unknown History injection solution SCHIZOPHRENIA montelukast 10 mg tablet 10 mg PO DAILY 05/02/18 Unkn own History olanzapine 20 mg tablet (Zyprexa) 20 mg PO QHS 9 Unknown History omega-3 fatty acids-fish oil 300 2 capsule PO BID defi ciency 05/02/18 10/29/23 History mg-1,000 mg capsule simvastatin 20 mg tablet (Zocor) 20 mg PO QHS 05/02/18 Unknown History amlodipine 5 mg tablet 5 mg PO DAILY bp 03/22/23 Un known History ammonium lactate 12 % topical cream 1 applic topical B ID skin 10/30/23 10/29/23 History irritation multivitamin (Daily Multi-Vitamin 1 tab PO DAILY repla cement 12/09/23 Unknown History tablet) acetaminophen 325 mg tablet 650 mg PO Q4H PRN fever or pain 05/23/24 Unknown History acetaminophen 650 mg rectal 650 mg AZ Q4H PRN pain Unknown History suppository aluminum-mag hydroxide-simethicone 30 ml PO Q4H PRN in digestion 05/23/24 Unknown History 400 mg-400 mg-40 mg/5 mL oral susp (Mintox Maximum Strength) amoxicillin 875 mg-potassium 1 tab PO Q12H 05/23/24 Un known History clavulanate 125 mg tablet bisacodyl 10 mg rectal suppository 10 mg [place] DAILY PRN CONSTIPATION 05/23/24 Unknown History cholecalciferol (vitamin D3) 50 50 mcg PO QHS SUPPLEME NT 05/23/24 Unknown History mcg (2,000 unit) tablet (D3 DOTS) lithium carbonate 600 mg capsule 600 mg PO QHS BIPOLAR 05/23/24 Unknown History magnesium hydroxide 400 mg/5 mL 30 ml PO DAILY PRN con stipation 05/23/24 Unknown History oral suspension (Dulcolax (magnesium hydroxide)) melatonin 5 mg tablet 5 mg PO QHS 05/23/24 Unknown History menthol 10 % topical cream 1 applic topical Q12H PRN p ain 05/23/24 Unknown History (Biofreeze (menthol)) sodium phosphates 19 gram-7 118 ml [place] BID PRN constipa tion 05/23/24 Unknown History gram/118 mL enema (Fleet Enema) trazodone 50 mg tablet 50 mg PO QHS sleep 05/23/24 Unknown History Allergy/AdvReac Type Severity Reaction Status Date / Time codeine AdvReac Upset Verified 12/08/23 16:08 Stomach haloperidol (From Haldol) AdvReac Abd Verified 12/08/23 16:08 cramps/diarrhea haloperidol lactate (From AdvReac Abd Verified 12/08/23 16:08 Haldol) cramps/diarrhea ziprasidone AdvReac Unknown Verified 12/08/23 16:08 Family History Mother Diabetes Surgical History S/P right knee arthroscopy S/P laparoscopic cholecystectomy History of esophagogastroduodenoscopy (EGD) S/P bilateral inguinal hernia repair Social History Smoking Status: Current every day smoker tobacco type: cigarettes ROS Review of Systems ROS Unobtainable: due to endotracheal tube Vital Signs Vital Signs Vital Signs: 05/23/24 10:39 05/23/24 11:09 05/23/24 11:09 Temperature 100.4 F H 100.4 F H 100.4 F H Temperature Source Oral Temporal Oral Pulse Rate 90 96 Respiratory Rate 68 H 68 H Respiratory Effort Respiratory Depth Respiratory Pattern Blood Pressure 129/70 H 130/77 H 130/77 H Blood Pressure Mean 89 94 94 Pulse Ox 74 98 Oxygen Delivery Method Room Air Non-Rebreather Oxygen Flow Rate (L/min) 10 Fraction of Inspired Oxygen (FIO2) 05/23/24 11:27 05/23/24 11:30 05/23/24 11:30 Temperature Temperature Source Pulse Rate 90 Respiratory Rate 40 H Respiratory Effort Short of Breath Labored Respiratory Depth Respiratory Pattern Tachypnea Tachypnea Blood Pressure Blood Pressure Mean Pulse Ox 94 Oxygen Delivery Method Non-Rebreather Oxygen Flow Rate (L/min) 15 Fraction of Inspired Oxygen (FIO2) 35 05/23/24 11:31 05/23/24 11:39 05/23/24 12:00 Temperature 96.4 F L Temperature Source Temporal Pulse Rate 96 81 Respiratory Rate 21 H 14 Respiratory Effort Labored Accessory Muscle Use Head [place] Respiratory Depth Deep Respiratory Pattern Tachypnea Tachypnea Blood Pressure 112/61 Blood Pressure Mean 78 Pulse Ox 94 96 Oxygen Delivery Method Nasal Cannula Mechanical Ventilator Oxygen Flow Rate (L/min) 6 Fraction of Inspired Oxygen (FIO2) 50 05/23/24 12:18 05/23/24 12:30 05/23/24 12:45 Temperature Temperature Source Pulse Rate 82 82 Respiratory Rate 15 17 Respiratory Effort Respiratory Depth Respiratory Pattern Blood Pressure 107/78 97/63 Blood Pressure Mean 89 75 Pulse Ox 97 95 Oxygen Delivery Method Oxygen Flow Rate (L/min) Fraction of Inspired Oxygen (FIO2) 05/23/24 12:53 05/23/24 13:00 05/23/24 13:00 Temperature Temperature Source Pulse Rate 79 77 Respiratory Rate 14 14 Respiratory Effort Respiratory Depth Respiratory Pattern Blood Pressure 101/55 L Blood Pressure Mean 69 Pulse Ox 98 96 Oxygen Delivery Method Oxygen Flow Rate (L/min) Fraction of Inspired Oxygen (FIO2) 05/23/24 13:15 05/23/24 13:30 05/23/24 13:45 Temperature Temperature Source Pulse Rate 75 73 70 Respiratory Rate 15 20 H 16 Respiratory Effort Respiratory Depth Respiratory Pattern Blood Pressure 106/56 L 111/57 L 115/61 Blood Pressure Mean 71 74 74 Pulse Ox 95 96 96 Oxygen Delivery Method Oxygen Flow Rate (L/min) Fraction of Inspired Oxygen (FIO2) 05/23/24 14:00 Temperature Temperature Source Pulse Rate 70 Respiratory Rate 20 H Respiratory Effort Respiratory Depth Respiratory Pattern Blood Pressure 108/58 L Blood Pressure Mean 74 Pulse Ox 96 Oxygen Delivery Method Oxygen Flow Rate (L/min) Fraction of Inspired Oxygen (FIO2) Weight Weight: 102.7 kg Body Mass Index (BMI) 34.4 Physical Exam Const Constitutional Narrative: Intubated and sedated. Nonpurposeful movements noted, not following commands. HEENT normocephalic and head/scalp atraumatic HEENT Narrative: ET tube in place. Neck supple Resp Resp Narrative: Breathing comfortably on mechanical ventilation. Mild crackles noted in bilateral mid lung zones, otherwise good air movement throughout and no wheezingnoted. Cardio regular rate, regular rhythm and no murmurs GI normal to inspection, nondistended, normoactive bowel sounds, soft to palpation,non-tender and non-distended Extremity Extremity Narrative: Severe venous stasis dermatitis noted bilaterally. No overt areas of infection noted. Results Lab / Micro Data 05/23/24 11:00 05/23/24 11:00 Labs: Laboratory Results - last 24 hr 05/23/24 11:00: WBC 5.1, RBC 3.70 L, Hgb 12.3 L, Hct 39.8 L, MCV 107.6 H, MCH 33.2 H, MCHC 30.9 L, RDW Std Deviation 67.9 H, RDW Coeff of Babatunde 17.2 H, Plt Count 79 L, MPV 10.3, Immature Gran % (Auto) 0.400, Neut % (Auto) 79.8 H, Lymph % (Auto) 10.9 L, Gove % (Auto) 6.4, Eos % (Auto) 2.1, Baso % (Auto) 0.4, Absolute Neuts (auto) 4.1, Absolute Lymphs (auto) 0.56 L, Nucleated RBC % 0.6, Platelet Estimate MOD DEC, Plt Morphology Comment CLUMPED, Polychromasia 1+, Anisocytosis 1+, PT 14.8, INR 1.1, APTT 25.5, Sodium 131 L, Potassium 4.9, Chloride 96 L, Carbon Dioxide 25.6, Anion Gap 9, BUN 10, Creatinine 1.30 H, EstimCreat Clear Calc 68.43, Est GFR (MDRD) Non-Af 62, BUN/Creatinine Ratio 7.9 L, Glucose 99, Lactic Acid < 1.0, Calcium 8.8, Total Bilirubin 0.70, AST 23, ALT 15, Alkaline Phosphatase 100, Troponin T High Sens 35 H, Total Protein 8.4, Albumin 3.9, Globulin 4.5 H, Albumin/Globulin Ratio 0.9 05/23/24 11:20: Urine Color Yellow, Urine Clarity Clear, Urine pH 6.0, Ur Specific [place] 1.010, Urine Protein 30 H, Urine Glucose (UA) Normal, Urine Ketones Negative, Urine Occult Blood Negative, Urine Nitrite Negative, Urine Bilirubin Negative, Urine Urobilinogen Normal, Ur Leukocyte Esterase 25 H, UrineRBC 0 SEEN, Urine WBC 0-5 SEEN, Ur Squamous Epith Cells 0 SEEN, Urine Bacteria 0SEEN, Urine Mucus 0 SEEN 05/23/24 13:17: Troponin T Hi Sens 2 Hr 36 H Micro: Microbiology 05/23/24 11:20 Mucosa - Nose SARS-CoV-2, Influenza & RSV (PCR) - Final ABG Data ABG results: ABG 05/23/24 05/23/24 11:06 13:12 Specimen Type ART ART Sample Site R Radial R Radial pH 7.27 L 7.30 L Bicarbonate Actual 33.1 H 35.1 H Total CO2 35 37 Base Excess 6 H 9 H O2 Saturation 70 L 86 L O2 % 6.0 50.0 ABG pCO2 72.3 H* 71.8 H* ABG pO2 44 L 60 L Leah Test Positive Positive Respiration Rate 14 O2 Delivery Device Cannula Adult Vent Vent Mode Not entered AC Tidal Volume 450.0 POC PEEP 5 Crit Call To/Read Back Yes Yes Blood Gas Notified Whom aleksandar aleksandar Blood Gas Notified Time 11:08:22 13:13:42 Rhythm Strip Rhythm Strip: Sinus Rhythm Rate: 95 Ectopy: None Imaging Radiology Impression Chest X-Ray 05/23/24 11:09 IMPRESSION: Cardiomegaly with mild congestion. Reading Location: [facility] Brain CT 05/23/24 11:10 IMPRESSION: Mild degree of cerebral atrophy. Reading Location: [facility] Assessment & Plan Assessment/Plan (1) Acute respiratory failure with hypoxia and hypercapnia: (2) Chronic venous stasis dermatitis of both lower extremities: PLAN: Plan Patient is a 64-year-old male who presented [facility] ED on 05/23/2024 with altered mentation. 1. Acute hypoxic and hypercapnic respiratory failure ? Admit under inpatient status to ICU. 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 consulted. ABG in ED on nasal cannula showed pH 7.27, pCO2 72, pO2 40. Chest x-ray showed cardiomegaly with mild vascular congestion. Unclear etiology but respiratory failure may be secondary to decreased respiratory drive in setting of acute encephalopathy is notable low. BNP normal, low concern for heart failure. Not wheezy on exam, low concern for COPD exacerbation. Continue mechanical ventilation at this time. Appreciate further steam tender recommendations. 2. Acute toxic/metabolic encephalopathy ? Unclear etiology at this time. Patient was very somnolent on arrival to the ED and came from assisted living. Has history of schizophrenia and is on lithium, olanzapine and fluphenazine every 2 weeks. [place] level ordered. Urine drug screen ordered as well. Patient currently sedated while on mechanical ventilation. Okay to continue home lithium and olanzapine for now ifthey can be given through OG tube. Appreciate further steam tender recommendations. 3. Severe chronic venous stasis dermatitis with concern for cellulitis ? Patient with severe venous stasis changes noted in the ED. No sites of activedrainage noted but cannot rule out cellulitis. Procalcitonin ordered. Will treat with IV vancomycin and Zosyn for now. 4. Mild hyponatremia ? Sodium 131 on admit. Chloride 96 and creatinine 1.30, mildly elevated from baseline 1.1-1.2. Suspect due to mild dehydration and was given 1 L of normal saline in the ED. Follow-up a.m. labs. 5. Acute on chronic debility ? PT/OT/case management consulted. Patient came from assisted living, has some degree of debility at baseline. Appreciate further therapy recommendations. 6. History of dysphagia ? Speech therapy consulted. Was found on modified barium swallow study back in October 2023 to have moderate oropharyngeal dysphagia. Admitted in December with concern for possible aspiration pneumonia. Currently intubated; appreciate speech therapy recommendations once patient has been extubated. 7. Tobacco use disorder ? Reportedly a current smoker. NRT available while inpatient as needed. Chronic medical conditions: ? Class I obesity: BMI 34 on admit. Complicates hospital course, care and prognosis. ? COPD: Acute hypoxic and hypercapnic respiratory failure as noted above but no wheezing on exam and have lower concern for COPD exacerbation. Will not treat with steroids or DuoNebs at this time. Continue home inhalers. ? Schizophrenia: [place] level ordered as above. Will continue home lithium andolanzapine at this time. ? GERD: Continue home PPI. ? Hypertension: Blood pressure soft after intubation with sedation, will hold home amlodipine and spironolactone for now. ? Hyperlipidemia: Continue home statin. DVT prophylaxis: Lovenox CODE STATUS: Full code, unverified Expected disposition: TBD Total clinical time spent by myself addressing the patient's medical issues, reviewing all the data, and collaborating with patient's care team: 75 minutes. Charges/Coding Visit Charges Inpatient E&M: 30271 Init Hosp L3 05/23/24 1717 <Electronically signed by Robson George DO> Cosigner Signature (if applicable): CC: LOGGING TRACTOR OPERATOR-C Ingris Chu; Dr. Robson George DO~ Signed [facility] Work Phone: 1(910) 603-809203-21-2025 Discharge summary Author Bret Nunes [facility] Note Date/Time May 23, 2024 4:3 1pm [facility] Medical Records Department [address] [place] [address] Emergency Department Summary 05/23/24 MR#: [id number] Acct: [id number] Name: TONY ARIZA Gabby Rep #:[id number] : 1960 64 From: Bret Nunes MD PCP: Ingris Chu, LOGGING TRACTOR OPERATOR-C Status: ADM IN Location: ICU ICU04-1 HPI History of Present Illness Chief Complaint: Alt LOC Informant: patient and EMS Narrative Narrative: 64-year-old male with COPD coming from assisted living with a decreased level ofconsciousness dyspnea. History not obtainable from the patient, as he is very somnolent and difficult to keep awake on my evaluation. [facility] Medical History (Updated 05/23/24 @ 16:[address] Bret Nunes MD) Hypercarbia Aspiration pneumonia Hypoxemia GERD (gastroesophageal reflux disease) Sepsis Tobacco abuse Schizophrenia COPD exacerbation Bipolar disorder Home Medications ?Medication ?Instructions ?Recorded ?Last Taken ?Type olanzapine 10 mg tablet 10 mg PO DAILY 02/18/15 Unkn own History omeprazole 20 mg capsule,delayed 20 mg PO BID 02/18/15 Unknown History release spironolactone 25 mg tablet 25 mg PO DAILY 02/18/15 Un known History fluphenazine decanoate 25 mg/mL 25 mg IM Q14D PARANOID 07/29/16 Unknown History injection solution SCHIZOPHRENIA montelukast 10 mg tablet 10 mg PO DAILY 05/02/18 Unkn own History olanzapine 20 mg tablet (Zyprexa) 20 mg PO QHS 9 Unknown History omega-3 fatty acids-fish oil 300 2 capsule PO BID defi ciency 05/02/18 10/29/23 History mg-1,000 mg capsule simvastatin 20 mg tablet (Zocor) 20 mg PO QHS 05/02/18 Unknown History amlodipine 5 mg tablet 5 mg PO DAILY bp 03/22/23 Un known History ammonium lactate 12 % topical cream 1 applic topical B ID skin 10/30/23 10/29/23 History irritation multivitamin (Daily Multi-Vitamin 1 tab PO DAILY repla cement 12/09/23 Unknown History tablet) acetaminophen 325 mg tablet 650 mg PO Q4H PRN fever or pain 05/23/24 Unknown History acetaminophen 650 mg rectal 650 mg AZ Q4H PRN pain Unknown History suppository aluminum-mag hydroxide-simethicone 30 ml PO Q4H PRN in digestion 05/23/24 Unknown History 400 mg-400 mg-40 mg/5 mL oral susp (Mintox Maximum Strength) amoxicillin 875 mg-potassium 1 tab PO Q12H 05/23/24 Un known History clavulanate 125 mg tablet bisacodyl 10 mg rectal suppository 10 mg [place] DAILY PRN CONSTIPATION 05/23/24 Unknown History cholecalciferol (vitamin D3) 50 50 mcg PO QHS SUPPLEME NT 05/23/24 Unknown History mcg (2,000 unit) tablet (D3 DOTS) lithium carbonate 600 mg capsule 600 mg PO QHS BIPOLAR 05/23/24 Unknown History magnesium hydroxide 400 mg/5 mL 30 ml PO DAILY PRN con stipation 05/23/24 Unknown History oral suspension (Dulcolax (magnesium hydroxide)) melatonin 5 mg tablet 5 mg PO QHS 05/23/24 Unknown History menthol 10 % topical cream 1 applic topical Q12H PRN p ain 05/23/24 Unknown History (Biofreeze (menthol)) sodium phosphates 19 gram-7 118 ml [place] BID PRN constipa tion 05/23/24 Unknown History gram/118 mL enema (Fleet Enema) trazodone 50 mg tablet 50 mg PO QHS sleep 05/23/24 Unknown History Allergy/AdvReac Type Severity Reaction Status Date / Time codeine AdvReac Upset Verified 12/08/23 16:08 Stomach haloperidol (From Haldol) AdvReac Abd Verified 12/08/23 16:08 cramps/diarrhea haloperidol lactate (From AdvReac Abd Verified 12/08/23 16:08 Haldol) cramps/diarrhea ziprasidone AdvReac Unknown Verified 12/08/23 16:08 Family History Mother Diabetes Surgical History S/P right knee arthroscopy S/P laparoscopic cholecystectomy History of esophagogastroduodenoscopy (EGD) S/P bilateral inguinal hernia repair Social History Smoking Status: Current every day smoker tobacco type: cigarettes ROS ROS ED Review of Systems ROS Unobtainable: due to mental status EXAM Physical Exam Const Vital Signs: 05/23/24 10:39 05/23/24 11:09 05/23/24 11:09 Temperature 100.4 F H 100.4 F H 100.4 F H Temperature Source Oral Temporal Oral Pulse Rate 90 96 Respiratory Rate 68 H 68 H Respiratory Effort Respiratory Depth Respiratory Pattern Blood Pressure 129/70 H 130/77 H 130/77 H Blood Pressure Mean 89 94 94 Pulse Ox 74 98 Oxygen Delivery Method Room Air Non-Rebreather Oxygen Flow Rate (L/min) 10 Fraction of Inspired Oxygen (FIO2) 05/23/24 11:27 05/23/24 11:30 05/23/24 11:30 Temperature Temperature Source Pulse Rate 90 Respiratory Rate 40 H Respiratory Effort Short of Breath Labored Respiratory Depth Respiratory Pattern Tachypnea Tachypnea Blood Pressure Blood Pressure Mean Pulse Ox 94 Oxygen Delivery Method Non-Rebreather Oxygen Flow Rate (L/min) 15 Fraction of Inspired Oxygen (FIO2) 35 05/23/24 11:31 05/23/24 11:39 05/23/24 12:00 Temperature 96.4 F L Temperature Source Temporal Pulse Rate 96 81 Respiratory Rate 21 H 14 Respiratory Effort Labored Accessory Muscle Use Head [place] Respiratory Depth Deep Respiratory Pattern Tachypnea Tachypnea Blood Pressure 112/61 Blood Pressure Mean 78 Pulse Ox 94 96 Oxygen Delivery Method Nasal Cannula Mechanical Ventilator Oxygen Flow Rate (L/min) 6 Fraction of Inspired Oxygen (FIO2) 50 05/23/24 12:18 05/23/24 12:30 05/23/24 12:45 Temperature Temperature Source Pulse Rate 82 82 Respiratory Rate 15 17 Respiratory Effort Respiratory Depth Respiratory Pattern Blood Pressure 107/78 97/63 Blood Pressure Mean 89 75 Pulse Ox 97 95 Oxygen Delivery Method Oxygen Flow Rate (L/min) Fraction of Inspired Oxygen (FIO2) 05/23/24 12:53 05/23/24 13:00 05/23/24 13:00 Temperature Temperature Source Pulse Rate 79 77 Respiratory Rate 14 14 Respiratory Effort Respiratory Depth Respiratory Pattern Blood Pressure 101/55 L Blood Pressure Mean 69 Pulse Ox 98 96 Oxygen Delivery Method Oxygen Flow Rate (L/min) Fraction of Inspired Oxygen (FIO2) 05/23/24 13:15 05/23/24 13:30 05/23/24 13:45 Temperature Temperature Source Pulse Rate 75 73 70 Respiratory Rate 15 20 H 16 Respiratory Effort Respiratory Depth Respiratory Pattern Blood Pressure 106/56 L 111/57 L 115/61 Blood Pressure Mean 71 74 74 Pulse Ox 95 96 96 Oxygen Delivery Method Oxygen Flow Rate (L/min) Fraction of Inspired Oxygen (FIO2) 05/23/24 14:00 05/23/24 14:15 05/23/24 14:30 Temperature Temperature Source Pulse Rate 70 70 Respiratory Rate 20 H 20 H Respiratory Effort Respiratory Depth Respiratory Pattern Blood Pressure 108/58 L 109/61 106/65 Blood Pressure Mean 74 76 78 Pulse Ox 96 96 Oxygen Delivery Method Oxygen Flow Rate (L/min) Fraction of Inspired Oxygen (FIO2) Positive well nourished, well developed and obese General Appearance ED: well developed and NAD Nutritional Appearance: obese HEENT Reports moist mucous membranes normocephalic and atraumatic Eyes PERRL and EOMs intact bilaterally Neck full ROM, supple and no meningeal signs Neck Narrative: Trachea midline Resp Resp Narrative: Respiratory distress, extremely diminished throughout but symmetrically with midline trachea, mildly prolonged expiratory phase Cardio regular rate, regular rhythm and no murmurs GI non-tender and non-distended GI Narrative: Protuberant abdomen, soft and nontender Auscultation: normoactive bowel sounds Palpation: soft Back/Spine no CVA tenderness General Back: other FROM Extremity Extremity Narrative: Chronic stasis dermatitis both lower extremities with white discharge discoloration between the first second webspaces of both feet, difficult to assess for tenderness given the patient's mental status General Extremety ED: Yes edema; Negative for pulses abnormal or tenderness General Extremity: edema bilateral lower extremity Details: severe; Negative forpulses abnormal Neuro no sensory deficits noted Neuro Narrative: Moves all 4 extremities in response to pain Sensorium / Orientation: stuporous Motor Exam: general weakness Sepsis Attestation Sepsis Attestation: Sepsis Ruled Out Date exam was performed: 05/23/24 Time exam was performed: 13:45 Supportive Findings: Vital signs stable, lack of lactic acidosis, lack of infectious source definitive MDM MDM MDM Narrative Medical decision making narrative: Prior to my being able to evaluate the patient due to other emergencies in the department, staff obtained an ABG and initiated BiPAP, the ABG shows significantrespiratory acidosis, by the time I evaluated the patient, he is on BiPAP but not vomiting, but I am not able to keep him awake or get any information from him. Therefore I alerted staff and respiratory to set up for an emergent intubation. See the procedure note this was done, then we sedated the patient which took quite a bit of medication including propofol and fentanyl drips. This resulted in some soft blood pressures, which we treated with IV fluids, which she responded to. The chest x-ray 1 view on my interpretation shows good ETT placement, I had nursing push the OGT a little further, although it is at least adequate on the x-ray, and he appears to have either some bibasilar infiltrate versus congestion on the chest x-ray. Radiology is calling it cardiomegaly and mild congestion. He does not have a prior echocardiogram in the system for me to review, I added a BNP. He does not have a leukocytosis andhis viral swab is negative, but sepsis was considered because the patient presented with a temperature of 100.4. His legs look awful, and probably chronic but there is no way for me to tell if there is something acute here or not sinceI have not seen his legs in the past. Providing empiric Zosyn given all of this. Discussed with hospitalist for ICU admission. Lab Data Attestation: I reviewed the patient's lab results. Labs: Laboratory Results - last 24 hr 05/23/24 05/23/24 05/23/24 11:00 11:20 13:17 WBC 5.1 RBC 3.70 L Hgb 12.3 L Hct 39.8 L MCV 107.6 H MCH 33.2 H MCHC 30.9 L RDW Std Deviation 67.9 H RDW Coeff of Babatunde 17.2 H Plt Count 79 L MPV 10.3 Immature Gran % (Auto) 0.400 Neut % (Auto) 79.8 H Lymph % (Auto) 10.9 L Gove % (Auto) 6.4 Eos % (Auto) 2.1 Baso % (Auto) 0.4 Absolute Neuts (auto) 4.1 Absolute Lymphs (auto) 0.56 L Nucleated RBC % 0.6 Platelet Estimate MOD DEC Plt Morphology Comment CLUMPED Polychromasia 1+ Anisocytosis 1+ PT 14.8 INR 1.1 APTT 25.5 Sodium 131 L Potassium 4.9 Chloride 96 L Carbon Dioxide 25.6 Anion Gap 9 BUN 10 Creatinine 1.30 H Estim Creat Clear Calc 68.43 Est GFR (MDRD) Non-Af 62 BUN/Creatinine Ratio 7.9 L Glucose 99 Lactic Acid < 1.0 Calcium 8.8 Total Bilirubin 0.70 AST 23 ALT 15 Alkaline Phosphatase 100 Total Creatine Kinase 40 Troponin T High Sens 35 H Troponin T Hi Sens 2 Hr 36 H Total Protein 8.4 Albumin 3.9 Globulin 4.5 H Albumin/Globulin Ratio 0.9 Triglycerides 96 Urine Color Yellow Urine Clarity Clear Urine pH 6.0 Ur Specific [place] 1.010 Urine Protein 30 H Urine Glucose (UA) Normal Urine Ketones Negative Urine Occult Blood Negative Urine Nitrite Negative Urine Bilirubin Negative Urine Urobilinogen Normal Ur Leukocyte Esterase 25 H Urine RBC 0 SEEN Urine WBC 0-5 SEEN Ur Squamous Epith Cells 0 SEEN Urine Bacteria 0 SEEN Urine Mucus 0 SEEN ABG Data ABG results: ABG 05/23/24 05/23/24 11:06 13:12 Specimen Type ART ART Sample Site R Radial R Radial pH 7.27 L 7.30 L Bicarbonate Actual 33.1 H 35.1 H Total CO2 35 37 Base Excess 6 H 9 H O2 Saturation 70 L 86 L O2 % 6.0 50.0 ABG pCO2 72.3 H* 71.8 H* ABG pO2 44 L 60 L Leah Test Positive Positive Respiration Rate 14 O2 Delivery Device Cannula Adult Vent Vent Mode Not entered AC Tidal Volume 450.0 POC PEEP 5 Crit Call To/Read Back Yes Yes Blood Gas Notified Whom aleksandar aleksandar Blood Gas Notified Time 11:08:22 13:13:42 Radiography Diagnostic Testing: Clinical Impression(s) from Imaging Studies Chest X-Ray 05/23/24 11:09 IMPRESSION: Cardiomegaly with mild congestion. Reading Location: [facility] Brain CT 05/23/24 11:10 IMPRESSION: Mild degree of cerebral atrophy. Reading Location: [place] [address] Rhythm Strip Rhythm Strip: Sinus Rhythm Rate: 95 Ectopy: None EKG Initial EKG: Attestation: I personally reviewed and interpreted this EKG as follows: Interpretation: Sinus Rhythm and No Acute Injury Pattern Management Discussion w/another healthcare provider: Hospitalist Procedures Intubations Intubation Method: orotracheal (8.0F ETT placed 22 cm at the lip via video laryngoscopy, visualizing the tube passing through the cords) Intubation Verification: Positive color change and Bilateral breath sounds confirmed (And good fogging of tube) Intubation Complications: no complications (Stat portable chest x-ray 1 view on my interpretation confirms good tube placement) Procedural Sedation 1 (Initial Baseline): Consent Signed: No (Emergent situation) Sedation medication: Etomidate Dose: 20 Route: IV Total Moderate Sedation Units: 8 Maliampati Score: Class IV ASA Classification: III Comment:: On monitor with preoxygenation with BiPAP and BGV and IV fluids, tolerated well with no complications. Critical Care Time Critical Care Time: Yes Critical care time (excluding procedures): 30-74 minutes (32 min, not including procedure time), Including time spent:, Discussing w/Patient &/or Family/Pack Worker Supervisor, Discussing w/Consultants, Arranging Admission or Transfer and Performing Direct Patient Care at Bedside Discharge Plan Dx/Rx/DC Orders Clinical Impression: Acute respiratory failure with hypoxia and hypercapnia, Bilateral edema of lower extremity, COPD with acute exacerbation Disposition Disposition: Acute Care Hospital [facility] What to do if you have Problems For any increased pain, shortness of breath, bleeding, nausea or vomiting, chestpain, or any unexpected problems, contact your Primary Care Provider. Call [facility] ([phone]) or report to the closest Emergency Room. Call 911 if necessary. 05/23/24 1631 <Electronically signed by Bret Nunes MD> Cosigner Signature (if applicable): CC: LOGGING TRACTOR OPERATOR-C Ingris Chu ~ Signed [facility] Work Phone: [phone]) 384-707803-21-2025 History and physical note [facility] Medical Records Department [address] [place] [address] H&P Exam - Hospitalist 05/23/24 1403 MR#: [id number] Acct: [id number] Name: TONY ARIZA Rep #:[id number] : 1960 64 From: Robson gerardo DO PCP: MARY Chi Status: ADM IN Location: ICU ICU04-1 HPI - General General Date of Admission: 05/23/24 Date of Service: 05/23/24 Chief Complaint: Altered mentation HPI Narrative TONY ARIZA, is a 64 M who presented to [facility] ED on 05/23/2024 with altered mentation. Patient came from assisted living. Medical history is significant for COPD, schizophrenia, chronic venous stasis dermatitis, dysphagia and debility. Was last hospitalized here in December for a cute hypoxic respiratory failure secondary to COPD exacerbation with suspected aspiration pneumonia. On arrival to the ED today patient was very somnolent andnot answering any questions for staff. ABG showed pH 7.27, pCO2 72, pO2 70 on room air. He was placed on BiPAP but remained very somnolent, so decision was made to intubate him. He was intubated without issue. Staff did note that he began tohave agitation postintubation and was requiring fairly high sedation requirements. Given all of these things, hospitalist was contacted for admission. I saw the patient at bedside in the ED. He was intubated and sedated. He had nonpurposeful movements noted but did not respond to command. Will be ad mitted for further management. [facility] Medical History (Updated 05/23/24 @ 16:[address] Bret Nunes MD) Hypercarbia Aspiration pneumonia Hypoxemia GERD (gastroesophageal reflux disease) Sepsis Tobacco abuse Schizophrenia COPD exacerbation Bipolar disorder Home Medications ?Medication ?Instructions ?Recorded ?Last Taken ?Type olanzapine 10 mg tablet 10 mg PO DAILY 02/18/15 Unkn own History omeprazole 20 mg capsule,delayed 20 mg PO BID 02/18/15 Unknown History release spironolactone 25 mg tablet 25 mg PO DAILY 02/18/15 Un known History fluphenazine decanoate 25 mg/mL 25 mg IM Q14D PARANOID 07/29/16 Unknown History injection solution SCHIZOPHRENIA montelukast 10 mg tablet 10 mg PO DAILY 05/02/18 Unkn own History olanzapine 20 mg tablet (Zyprexa) 20 mg PO QHS 9 Unknown History omega-3 fatty acids-fish oil 300 2 capsule PO BID defi ciency 05/02/18 10/29/23 History mg-1,000 mg capsule simvastatin 20 mg tablet (Zocor) 20 mg PO QHS 05/02/18 Unknown History amlodipine 5 mg tablet 5 mg PO DAILY bp 03/22/23 Un known History ammonium lactate 12 % topical cream 1 applic topical B ID skin 10/30/23 10/29/23 History irritation multivitamin (Daily Multi-Vitamin 1 tab PO DAILY repla cement 12/09/23 Unknown History tablet) acetaminophen 325 mg tablet 650 mg PO Q4H PRN fever or pain 05/23/24 Unknown History acetaminophen 650 mg rectal 650 mg [place] Q4H PRN pain Unknown History suppository aluminum-mag hydroxide-simethicone 30 ml PO Q4H PRN in digestion 05/23/24 Unknown History 400 mg-400 mg-40 mg/5 mL oral susp (Mintox Maximum Strength) amoxicillin 875 mg-potassium 1 tab PO Q12H 05/23/24 Un known History clavulanate 125 mg tablet bisacodyl 10 mg rectal suppository 10 mg [place] DAILY PRN CONSTIPATION 05/23/24 Unknown History cholecalciferol (vitamin D3) 50 50 mcg PO QHS SUPPLEME NT 05/23/24 Unknown History mcg (2,000 unit) tablet (D3 DOTS) lithium carbonate 600 mg capsule 600 mg PO QHS BIPOLAR 05/23/24 Unknown History magnesium hydroxide 400 mg/5 mL 30 ml PO DAILY PRN con stipation 05/23/24 Unknown History oral suspension (Dulcolax (magnesium hydroxide)) melatonin 5 mg tablet 5 mg PO QHS 05/23/24 Unknown History menthol 10 % topical cream 1 applic topical Q12H PRN p ain 05/23/24 Unknown History (Biofreeze (menthol)) sodium phosphates 19 gram-7 118 ml [place] BID PRN constipa tion 05/23/24 Unknown History gram/118 mL enema (Fleet Enema) trazodone 50 mg tablet 50 mg PO QHS sleep 05/23/24 Unknown History Allergy/AdvReac Type Severity Reaction Status Date / Time codeine AdvReac Upset Verified 12/08/23 16:08 Stomach haloperidol (From Haldol) AdvReac Abd Verified 12/08/23 16:08 cramps/diarrhea haloperidol lactate (From AdvReac Abd Verified 12/08/23 16:08 Haldol) cramps/diarrhea ziprasidone AdvReac Unknown Verified 12/08/23 16:08 Family History Mother Diabetes Surgical History S/P right knee arthroscopy S/P laparoscopic cholecystectomy History of esophagogastroduodenoscopy (EGD) S/P bilateral inguinal hernia repair Social History Smoking Status: Current every day smoker tobacco type: cigarettes ROS Review of Systems ROS Unobtainable: due to endotracheal tube Vital Signs Vital Signs Vital Signs: 05/23/24 10:39 05/23/24 11:09 05/23/24 11:09 Temperature 100.4 F H 100.4 F H 100.4 F H Temperature Source Oral Temporal Oral Pulse Rate 90 96 Respiratory Rate 68 H 68 H Respiratory Effort Respiratory Depth Respiratory Pattern Blood Pressure 129/70 H 130/77 H 130/77 H Blood Pressure Mean 89 94 94 Pulse Ox 74 98 Oxygen Delivery Method Room Air Non-Rebreather Oxygen Flow Rate (L/min) 10 Fraction of Inspired Oxygen (FIO2) 05/23/24 11:27 05/23/24 11:30 05/23/24 11:30 Temperature Temperature Source Pulse Rate 90 Respiratory Rate 40 H Respiratory Effort Short of Breath Labored Respiratory Depth Respiratory Pattern Tachypnea Tachypnea Blood Pressure Blood Pressure Mean Pulse Ox 94 Oxygen Delivery Method Non-Rebreather Oxygen Flow Rate (L/min) 15 Fraction of Inspired Oxygen (FIO2) 35 05/23/24 11:31 05/23/24 11:39 05/23/24 12:00 Temperature 96.4 F L Temperature Source Temporal Pulse Rate 96 81 Respiratory Rate 21 H 14 Respiratory Effort Labored Accessory Muscle Use Head [place] Respiratory Depth Deep Respiratory Pattern Tachypnea Tachypnea Blood Pressure 112/61 Blood Pressure Mean 78 Pulse Ox 94 96 Oxygen Delivery Method Nasal Cannula Mechanical Ventilator Oxygen Flow Rate (L/min) 6 Fraction of Inspired Oxygen (FIO2) 50 05/23/24 12:18 05/23/24 12:30 05/23/24 12:45 Temperature Temperature Source Pulse Rate 82 82 Respiratory Rate 15 17 Respiratory Effort Respiratory Depth Respiratory Pattern Blood Pressure 107/78 97/63 Blood Pressure Mean 89 75 Pulse Ox 97 95 Oxygen Delivery Method Oxygen Flow Rate (L/min) Fraction of Inspired Oxygen (FIO2) 05/23/24 12:53 05/23/24 13:00 05/23/24 13:00 Temperature Temperature Source Pulse Rate 79 77 Respiratory Rate 14 14 Respiratory Effort Respiratory Depth Respiratory Pattern Blood Pressure 101/55 L Blood Pressure Mean 69 Pulse Ox 98 96 Oxygen Delivery Method Oxygen Flow Rate (L/min) Fraction of Inspired Oxygen (FIO2) 05/23/24 13:15 05/23/24 13:30 05/23/24 13:45 Temperature Temperature Source Pulse Rate 75 73 70 Respiratory Rate 15 20 H 16 Respiratory Effort Respiratory Depth Respiratory Pattern Blood Pressure 106/56 L 111/57 L 115/61 Blood Pressure Mean 71 74 74 Pulse Ox 95 96 96 Oxygen Delivery Method Oxygen Flow Rate (L/min) Fraction of Inspired Oxygen (FIO2) 05/23/24 14:00 Temperature Temperature Source Pulse Rate 70 Respiratory Rate 20 H Respiratory Effort Respiratory Depth Respiratory Pattern Blood Pressure 108/58 L Blood Pressure Mean 74 Pulse Ox 96 Oxygen Delivery Method Oxygen Flow Rate (L/min) Fraction of Inspired Oxygen (FIO2) Weight Weight: 102.7 kg Body Mass Index (BMI) 34.4 Physical Exam Const Constitutional Narrative: Intubated and sedated. Nonpurposeful movements noted, not following commands. HEENT normocephalic and head/scalp atraumatic HEENT Narrative: ET tube in place. Neck supple Resp Resp Narrative: Breathing comfortably on mechanical ventilation. Mild crackles noted in bilateral mid lung zones, otherwise good air movement throughout and no wheezingnoted. Cardio regular rate, regular rhythm and no murmurs GI normal to inspection, nondistended, normoactive bowel sounds, soft to palpation,non-tender and non-distended Extremity Extremity Narrative: Severe venous stasis dermatitis noted bilaterally. No overt areas of infection noted. Results Lab / Micro Data 05/23/24 11:00 05/23/24 11:00 Labs: Laboratory Results - last 24 hr 05/23/24 11:00: WBC 5.1, RBC 3.70 L, Hgb 12.3 L, Hct 39.8 L, MCV 107.6 H, MCH 33.2 H, MCHC 30.9 L, RDW Std Deviation 67.9 H, RDW Coeff of Babatunde 17.2 H, Plt Count 79 L, MPV 10.3, Immature Gran % (Auto) 0.400, Neut % (Auto) 79.8 H, Lymph % (Auto) 10.9 L, Gove % (Auto) 6.4, Eos % (Auto) 2.1, Baso % (Auto) 0.4, Absolute Neuts (auto) 4.1, Absolute Lymphs (auto) 0.56 L, Nucleated RBC % 0.6, Platelet Estimate MOD DEC, Plt Morphology Comment CLUMPED, Polychromasia 1+, Anisocytosis 1+, PT 14.8, INR 1.1, APTT 25.5, Sodium 131 L, Potassium 4.9, Chloride 96 L, Carbon Dioxide 25.6, Anion Gap 9, BUN 10, Creatinine 1.30 H, EstimCreat Clear Calc 68.43, Est GFR (MDRD) Non-Af 62, BUN/Creatinine Ratio 7.9 L, Glucose 99, Lactic Acid < 1.0, Calcium 8.8, Total Bilirubin 0.70, AST 23, ALT 15, Alkaline Phosphatase 100, Troponin T High Sens 35 H, Total Protein 8.4, Albumin 3.9, Globulin 4.5 H, Albumin/GlobulinRatio 0.9 05/23/24 11:20: Urine Color Yellow, Urine Clarity Clear, Urine pH 6.0, Ur Specific [place] 1.010, Urine Protein 30 H, Urine Glucose (UA) Normal, Urine Ketones Negative, Urine Occult Blood Negative, Urine Nitrite Negative, Urine Bilirubin Negative, Urine Urobilinogen Normal, Ur Leukocyte Esterase 25H, UrineRBC 0 SEEN, Urine WBC 0-5 SEEN, Ur Squamous Epith Cells 0 SEEN, Urine Bacteria 0SEEN, UrineMucus 0 SEEN 05/23/24 13:17: Troponin T Hi Sens 2 Hr 36 H Micro: Microbiology 05/23/24 11:20 Mucosa - Nose SARS-CoV-2, Influenza & RSV (PCR) - Final ABG Data ABG results: ABG 05/23/24 05/23/24 11:06 13:12 Specimen Type ART ART Sample Site R Radial R Radial pH 7.27 L 7.30 L Bicarbonate Actual 33.1 H 35.1 H Total CO2 35 37 Base Excess 6 H 9 H O2 Saturation 70 L 86 L O2 % 6.0 50.0 ABG pCO2 72.3 H* 71.8 H* ABG pO2 44 L 60 L Leah Test Positive Positive Respiration Rate 14 O2 Delivery Device Cannula Adult Vent Vent Mode Not entered AC Tidal Volume 450.0 POC PEEP 5 Crit Call To/Read Back Yes Yes Blood Gas Notified Whom aleksandar aleksandar Blood Gas Notified Time 11:08:22 13:13:42 Rhythm Strip Rhythm Strip: Sinus Rhythm Rate: 95 Ectopy: None Imaging Radiology Impression Chest X-Ray 05/23/24 11:09 IMPRESSION: Cardiomegaly with mild congestion. Reading Location: [facility] Brain CT 05/23/24 11:10 IMPRESSION: Mild degree of cerebral atrophy. Reading Location: [facility] Assessment & Plan Assessment/Plan (1) Acute respiratory failure with hypoxia and hypercapnia: (2) Chronic venous stasis dermatitis of both lower extremities: PLAN: Plan Patient is a 64-year-old male who presented [facility] ED on 05/23/2024 with alteredmentation. 1. Acute hypoxic and hypercapnic respiratory failure ? Admit under inpatient status to ICU. 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 consulted. ABG in ED on nasal cannula showed pH 7.27, pCO2 72, pO2 40. Chest x-ray showed cardiomegaly with mild vascular congestion. Unclear etiology but respiratory failure may be secondary to decreased respiratory drive in setting of acute encephalopathy is notable low. BNP normal, low concern for heart failure. Not wheezy on exam, low concernfor COPD exacerbation. Continue mechanical ventilation at this time. Appreciate further intensivistrecommendations. 2. Acute toxic/metabolic encephalopathy ? Unclear etiology at this time. Patient was very somnolent on arrival to the ED and came from assisted living. Has history of schizophrenia and is on lithium, olanzapine and fluphenazine every 2 weeks. [place] level ordered. Urine drug screen ordered as well. Patient currently sedated while on mechanical ventilation. Okay to continue home lithium and olanzapine for now ifthey can be given through OG tube. Appreciate further steam tender recommendations. 3. Severe chronic venous stasis dermatitis with concern for cellulitis ? Patient with severe venous stasis changes noted in the ED. No sites of activedrainage noted but cannot rule out cellulitis. Procalcitonin ordered. Will treat with IV vancomycin and Zosyn for now. 4. Mild hyponatremia ? Sodium 131 on admit. Chloride 96 and creatinine 1.30, mildly elevated from baseline 1.1-1.2. Suspect due to mild dehydration and was given 1 L of normal saline in the ED. Follow-up a.m. labs. 5. Acute on chronic debility ? PT/OT/case management consulted. Patient came from assisted living, has some degree of debility at baseline. Appreciate further therapy recommendations. 6. History of dysphagia ? Speech therapy consulted. Was found on modified barium swallow study back in October 2023 to have moderate oropharyngeal dysphagia. Admitted in December with concern for possible aspiration pneumonia. Currently intubated; appreciate speech therapy recommendations once patient has been extubated. 7. Tobacco use disorder ? Reportedly a current smoker. NRT available while inpatient as needed. Chronic medical conditions: ? Class I obesity: BMI 34 on admit. Complicates hospital course, care and prognosis. ? COPD: Acute hypoxic and hypercapnic respiratory failure as noted above but no wheezing on exam and have lower concern for COPD exacerbation. Will not treat with steroids or DuoNebs at this time. Continue home inhalers. ? Schizophrenia: [place] level ordered as above. Will continue home lithium andolanzapine at this time. ? GERD: Continue home PPI. ? Hypertension: Blood pressure soft after intubation with sedation, will hold home amlodipine and spironolactone for now. ? Hyperlipidemia: Continue home statin. DVT prophylaxis: Lovenox CODE STATUS: Full code, unverified Expected disposition: TBD Total clinical time spent by myself addressing the patient's medical issues, reviewing all the data, and collaborating with patient's care team: 75 minutes. Charges/Coding Visit Charges Inpatient E&M: 02869 Init Hosp L3 05/23/24 1717 Cosigner Signature (if applicable): CC: LOGGING TRACTOR OPERATORCarlene Chu; Dr. Robson George, DO~ Signed [facility]03-21-2025 Evaluation note* Diagnosis Onset Date Resolution Status Admit Date Acute respiratory failure wi th hypoxia and hypercapnia acute May 232024 2:32pm Chronic venous stasis dermatitis of both lower extremities chronic May 23, 2024 2:[address] [place] [address] Work Phone: 1(960) 224-276703-21-2025 Evaluation note* Diagnosis Onset Date Resolution Status Admit Date (HFpEF) heart failure with preserved ejection fraction acute 2024 2:32pm Acute respiratory failure wi th hypoxia and hypercapnia acute May 232024 2:32pm NILESH (acute kidney injury) acute May 23, 2024 2:32pm Encephalopathy acute acute 2024 2:32pm Hypernatremia acute May 23, 2024 2:32pm Nephrogenic diabetes insipidus acute May 23, 2024 2:32pm Chronic venous stasis dermat itis of both lower extremities chronic May 23, 2024 2:32pm COPD with acute exacerbation chronic May 23, 2024 2:32pm Metabolic encephalopathy resolved May 23, 2024 2:[address] [place] [address] Work Phone: 1(441) 868-831803-21-2025 Evaluation note* Diagnosis Onset Date Resolution Status Admit Date Nephrogenic diabetes insipidus acute May 23, 2024 2:32pm Acute respiratory failure wi th hypoxia and hypercapnia resolved May 232024 2:32pm NILESH (acute kidney injury) resolved May 23, 2024 2:32pm COPD with acute exacerbation resolve d May 23, 2024 2:32pm Encephalopathy acute resolved 2024 2:32pm Hypernatremia resolved May 23, 2024 2:32pm Metabolic encephalopathy resolved May 23, 2024 2:32pm (HFpEF) heart failure with preserved ejection fraction inactive 2024 2:32pm Chronic venous stasis dermat itis of both lower extremities inactive May 23, 2024 2:32pm [facility] Work Phone: 1(172) 125-882903-21-2025 Discharge summary [facility] Medical Records Department [address] [place] [address] Emergency Department Summary 05/23/24 MR#: [id number] Acct: [id number] Name: TONY ARIZA Rep #:[id number] : 1960 64 From: Bret Nunes MD PCP: MARY Chi Status: ADM IN Location: ICU ICU-1 HPI History of Present Illness Chief Complaint: Alt LOC Informant: patient and EMS Narrative Narrative: 64-year-old male with COPD coming from assisted living with a decreased level ofconsciousness dyspnea. History not obtainable from the patient, as he is very somnolent and difficult to keep awake on my evaluation. [facility] Medical History (Updated 05/23/24 @ 16:[address] Bret Nunes MD) Hypercarbia Aspiration pneumonia Hypoxemia GERD (gastroesophageal reflux disease) Sepsis Tobacco abuse Schizophrenia COPD exacerbation Bipolar disorder Home Medications ?Medication ?Instructions ?Recorded ?Last Taken ?Type olanzapine 10 mg tablet 10 mg PO DAILY 02/18/15 Unkn own History omeprazole 20 mg capsule,delayed 20 mg PO BID 02/18/15 Unknown History release spironolactone 25 mg tablet 25 mg PO DAILY 02/18/15 Un known History fluphenazine decanoate 25 mg/mL 25 mg IM Q14D PARANOID 07/29/16 Unknown History injection solution SCHIZOPHRENIA montelukast 10 mg tablet 10 mg PO DAILY 05/02/18 Unkn own History olanzapine 20 mg tablet (Zyprexa) 20 mg PO QHS 9 Unknown History omega-3 fatty acids-fish oil 300 2 capsule PO BID defi ciency 05/02/18 10/29/23 History mg-1,000 mg capsule simvastatin 20 mg tablet (Zocor) 20 mg PO QHS 05/02/18 Unknown History amlodipine 5 mg tablet 5 mg PO DAILY bp 03/22/23 Un known History ammonium lactate 12 % topical cream 1 applic topical B ID skin 10/30/23 10/29/23 History irritation multivitamin (Daily Multi-Vitamin 1 tab PO DAILY repla cement 12/09/23 Unknown History tablet) acetaminophen 325 mg tablet 650 mg PO Q4H PRN fever or pain 05/23/24 Unknown History acetaminophen 650 mg rectal 650 mg AZ Q4H PRN pain Unknown History suppository aluminum-mag hydroxide-simethicone 30 ml PO Q4H PRN in digestion 05/23/24 Unknown History 400 mg-400 mg-40 mg/5 mL oral susp (Mintox Maximum Strength) amoxicillin 875 mg-potassium 1 tab PO Q12H 05/23/24 Un known History clavulanate 125 mg tablet bisacodyl 10 mg rectal suppository 10 mg AZ DAILY PRN CONSTIPATION 05/23/24 Unknown History cholecalciferol (vitamin D3) 50 50 mcg PO QHS SUPPLEME NT 05/23/24 Unknown History mcg (2,000 unit) tablet (D3 DOTS) lithium carbonate 600 mg capsule 600 mg PO QHS BIPOLAR 05/23/24 Unknown History magnesium hydroxide 400 mg/5 mL 30 ml PO DAILY PRN con stipation 05/23/24 Unknown History oral suspension (Dulcolax (magnesium hydroxide)) melatonin 5 mg tablet 5 mg PO QHS 05/23/24 Unknown History menthol 10 % topical cream 1 applic topical Q12H PRN p ain 05/23/24 Unknown History (Biofreeze (menthol)) sodium phosphates 19 gram-7 118 ml AZ BID PRN constipa tion 05/23/24 Unknown History gram/118 mL enema (Fleet Enema) trazodone 50 mg tablet 50 mg PO QHS sleep 05/23/24 Unknown History Allergy/AdvReac Type Severity Reaction Status Date / Time codeine AdvReac Upset Verified 12/08/23 16:08 Stomach haloperidol (From Haldol) AdvReac Abd Verified 12/08/23 16:08 cramps/diarrhea haloperidol lactate (From AdvReac Abd Verified 12/08/23 16:08 Haldol) cramps/diarrhea ziprasidone AdvReac Unknown Verified 12/08/23 16:08 Family History Mother Diabetes Surgical History S/P right knee arthroscopy S/P laparoscopic cholecystectomy History of esophagogastroduodenoscopy (EGD) S/P bilateral inguinal hernia repair Social History Smoking Status: Current every day smoker tobacco type: cigarettes ROS ROS ED Review of Systems ROS Unobtainable: due to mental status EXAM Physical Exam Const Vital Signs: 05/23/24 10:39 05/23/24 11:09 05/23/24 11:09 Temperature 100.4 F H 100.4 F H 100.4 F H Temperature Source Oral Temporal Oral Pulse Rate 90 96 Respiratory Rate 68 H 68 H Respiratory Effort Respiratory Depth Respiratory Pattern Blood Pressure 129/70 H 130/77 H 130/77 H Blood Pressure Mean 89 94 94 Pulse Ox 74 98 Oxygen Delivery Method Room Air Non-Rebreather Oxygen Flow Rate (L/min) 10 Fraction of Inspired Oxygen (FIO2) 05/23/24 11:27 05/23/24 11:30 05/23/24 11:30 Temperature Temperature Source Pulse Rate 90 Respiratory Rate 40 H Respiratory Effort Short of Breath Labored Respiratory Depth Respiratory Pattern Tachypnea Tachypnea Blood Pressure Blood Pressure Mean Pulse Ox 94 Oxygen Delivery Method Non-Rebreather Oxygen Flow Rate (L/min) 15 Fraction of Inspired Oxygen (FIO2) 35 05/23/24 11:31 05/23/24 11:39 05/23/24 12:00 Temperature 96.4 F L Temperature Source Temporal Pulse Rate 96 81 Respiratory Rate 21 H 14 Respiratory Effort Labored Accessory Muscle Use Head [place] Respiratory Depth Deep Respiratory Pattern Tachypnea Tachypnea Blood Pressure 112/61 Blood Pressure Mean 78 Pulse Ox 94 96 Oxygen Delivery Method Nasal Cannula Mechanical Ventilator Oxygen Flow Rate (L/min) 6 Fraction of Inspired Oxygen (FIO2) 50 05/23/24 12:18 05/23/24 12:30 05/23/24 12:45 Temperature Temperature Source Pulse Rate 82 82 Respiratory Rate 15 17 Respiratory Effort Respiratory Depth Respiratory Pattern Blood Pressure 107/78 97/63 Blood Pressure Mean 89 75 Pulse Ox 97 95 Oxygen Delivery Method Oxygen Flow Rate (L/min) Fraction of Inspired Oxygen (FIO2) 05/23/24 12:53 05/23/24 13:00 05/23/24 13:00 Temperature Temperature Source Pulse Rate 79 77 Respiratory Rate 14 14 Respiratory Effort Respiratory Depth Respiratory Pattern Blood Pressure 101/55 L Blood Pressure Mean 69 Pulse Ox 98 96 Oxygen Delivery Method Oxygen Flow Rate (L/min) Fraction of Inspired Oxygen (FIO2) 05/23/24 13:15 05/23/24 13:30 05/23/24 13:45 Temperature Temperature Source Pulse Rate 75 73 70 Respiratory Rate 15 20 H 16 Respiratory Effort Respiratory Depth Respiratory Pattern Blood Pressure 106/56 L 111/57 L 115/61 Blood Pressure Mean 71 74 74 Pulse Ox 95 96 96 Oxygen Delivery Method Oxygen Flow Rate (L/min) Fraction of Inspired Oxygen (FIO2) 05/23/24 14:00 05/23/24 14:15 05/23/24 14:30 Temperature Temperature Source Pulse Rate 70 70 Respiratory Rate 20 H 20 H Respiratory Effort Respiratory Depth Respiratory Pattern Blood Pressure 108/58 L 109/61 106/65 Blood Pressure Mean 74 76 78 Pulse Ox 96 96 Oxygen Delivery Method Oxygen Flow Rate (L/min) Fraction of Inspired Oxygen (FIO2) Positive well nourished, well developed and obese General Appearance ED: well developed and NAD Nutritional Appearance: obese HEENT Reports moist mucous membranes normocephalic and atraumatic Eyes PERRL and EOMs intact bilaterally Neck full ROM, supple and no meningeal signs Neck Narrative: Trachea midline Resp Resp Narrative: Respiratory distress, extremely diminished throughout but symmetrically with midline trachea, mildly prolonged expiratory phase Cardio regular rate, regular rhythm and no murmurs GI non-tender and non-distended GI Narrative: Protuberant abdomen, soft and nontender Auscultation: normoactive bowel sounds Palpation: soft Back/Spine no CVA tenderness General Back: other FROM Extremity Extremity Narrative: Chronic stasis dermatitis both lower extremities with white discharge discoloration between the first second webspaces of both feet, difficult to assess for tenderness given the patient's mental status General Extremety ED: Yes edema; Negative for pulses abnormal or tenderness General Extremity: edema bilateral lower extremity Details: severe; Negative forpulses abnormal Neuro no sensory deficits noted Neuro Narrative: Moves all 4 extremities in response to pain Sensorium / Orientation: stuporous Motor Exam: general weakness Sepsis Attestation Sepsis Attestation: Sepsis Ruled Out Date exam was performed: 05/23/24 Time exam was performed: 13:45 Supportive Findings: Vital signs stable, lack of lactic acidosis, lack of infectious source definitive MDM MDM MDM Narrative Medical decision making narrative: Prior to my being able to evaluate the patient due to other emergencies in the department, staff obtained an ABG and initiated BiPAP, the ABG shows significantrespiratory acidosis, by the time I evaluated the patient, he is on BiPAP but not vomiting, but I am not able to keep him awake or get any in formation from him. Therefore I alerted staff and respiratory to set up for an emergent intubation.See the procedure note this was done, then we sedated the patient which took quite a bit of medication including propofol and fentanyl drips. This resulted in some soft blood pressures, which we treated with IV fluids, which she responded to. The chest x-ray 1 view on my interpretation shows good ETT placement, I had nursing push the OGT a little further, although it is at least adequate on the x-ray, and he appears to have either some bibasilar infiltrate versus congestion on the chest x-ray. Radiology is calling it cardiomegaly and mild congestion. He does not have a prior echocardiogram in the system for me to review, I added a BNP. He does not have a leukocytosis andhis viral swab is negative, but sepsis was considered because the patient presented with a temperature of 100.4. His legs look awful, and probably chronic but there is no way for me to tell if there is something acute here or not sinceI have not seen his legs in the past. Providing empiric Zosyn given all of this. Discussed with hospitalist for ICU admission. Lab Data Attestation: I reviewed the patient's lab results. Labs: Laboratory Results - last 24 hr 05/23/24 05/23/24 05/23/24 11:00 11:20 13:17 WBC 5.1 RBC 3.70 L Hgb 12.3 L Hct 39.8 L MCV 107.6 H MCH 33.2 H MCHC 30.9 L RDW Std Deviation 67.9 H RDW Coeff of Babatunde 17.2 H Plt Count 79 L MPV 10.3 Immature Gran % (Auto) 0.400 Neut % (Auto) 79.8 H Lymph % (Auto) 10.9 L Gove % (Auto) 6.4 Eos % (Auto) 2.1 Baso % (Auto) 0.4 Absolute Neuts (auto) 4.1 Absolute Lymphs (auto) 0.56 L Nucleated RBC % 0.6 Platelet Estimate MOD DEC Plt Morphology Comment CLUMPED Polychromasia 1+ Anisocytosis 1+ PT 14.8 INR 1.1 APTT 25.5 Sodium 131 L Potassium 4.9 Chloride 96 L Carbon Dioxide 25.6 Anion Gap 9 BUN 10 Creatinine 1.30 H Estim Creat Clear Calc 68.43 Est GFR (MDRD) Non-Af 62 BUN/Creatinine Ratio 7.9 L Glucose 99 Lactic Acid < 1.0 Calcium 8.8 Total Bilirubin 0.70 AST 23 ALT 15 Alkaline Phosphatase 100 Total Creatine Kinase 40 Troponin T High Sens 35 H Troponin T Hi Sens 2 Hr 36 H Total Protein 8.4 Albumin 3.9 Globulin 4.5 H Albumin/Globulin Ratio 0.9 Triglycerides 96 Urine Color Yellow Urine Clarity Clear Urine pH 6.0 Ur Specific [place] 1.010 Urine Protein 30 H Urine Glucose (UA) Normal Urine Ketones Negative Urine Occult Blood Negative Urine Nitrite Negative Urine Bilirubin Negative Urine Urobilinogen Normal Ur Leukocyte Esterase 25 H Urine RBC 0 SEEN Urine WBC 0-5 SEEN Ur Squamous Epith Cells 0 SEEN Urine Bacteria 0 SEEN Urine Mucus 0 SEEN ABG Data ABG results: ABG 05/23/24 05/23/24 11:06 13:12 Specimen Type ART ART Sample Site R Radial R Radial pH 7.27 L 7.30 L Bicarbonate Actual 33.1 H 35.1 H Total CO2 35 37 Base Excess 6 H 9 H O2 Saturation 70 L 86 L O2 % 6.0 50.0 ABG pCO2 72.3 H* 71.8 H* ABG pO2 44 L 60 L Leah Test Positive Positive Respiration Rate 14 O2 Delivery Device Cannula Adult Vent Vent Mode Not entered AC Tidal Volume 450.0 POC PEEP 5 Crit Call To/Read Back Yes Yes Blood Gas Notified Whom aleksandar aleksandar Blood Gas Notified Time 11:08:22 13:13:42 Radiography Diagnostic Testing: Clinical Impression(s) from Imaging Studies Chest X-Ray 05/23/24 11:09 IMPRESSION: Cardiomegaly with mild congestion. [facility] 05/23/24 11:10 IMPRESSION: Mild degree of cerebral atrophy. Reading Location: [place] [address] Rhythm Strip Rhythm Strip: Sinus Rhythm Rate: 95 Ectopy: None EKG Initial EKG: Attestation: I personally reviewed and interpreted this EKG as follows: Interpretation: Sinus Rhythm and No Acute Injury Pattern Management Discussion w/another healthcare provider: Hospitalist Procedures Intubations Intubation Method: orotracheal (8.0F ETT placed 22 cm at the lip via video laryngoscopy, visualizing the tube passing through the cords) Intubation Verification: Positive color change and Bilateral breath sounds confirmed (And good fogging of tube) Intubation Complications: no complications (Stat portable chest x-ray 1 view on my interpretation confirms good tube placement) Procedural Sedation 1 (Initial Baseline): Consent Signed: No (Emergent situation) Sedation medication: Etomidate Dose: 20 Route: IV Total Moderate Sedation Units: 8 Maliampati Score: Class IV ASA Classification: III Comment:: On monitor with preoxygenation with BiPAP and BGV and IV fluids, tolerated well with no complications. Critical Care Time Critical Care Time: Yes Critical care time (excluding procedures): 30-74 minutes (32 min, not including procedure time), Including time spent:, Discussing w/Patient &/or Family/Pack Worker Supervisor, Discussing w/Consultants, Arranging Admission or Transfer and Performing Direct Patient Care at Bedside Discharge Plan Dx/Rx/DC Orders Clinical Impression: Acute respiratory failure with hypoxia and hypercapnia, Bilateral edema of lower extremity, COPD with acute exacerbation Disposition Disposition: Acute Care Hospital [facility] What to do if you have Problems For any increased pain, shortness of breath, bleeding, nausea or vomiting, chestpain, or any unexpected problems, contact your Primary Care Provider. Call [facility] ([phone]) or report tothe closest Emergency Room. Call 911 if necessary. 05/23/24 1631 Cosigner Signature (if applicable): CC: MARY Chu ~ Signed [facility]03-21-2025 History and physical note Author Robson George [facility] Note Date/Time May 23, 2024 5:1 7pm [facility] Medical Records Department [address] [place] [address] H&P Exam - Hospitalist 05/23/24 1403 MR#: [id number] Acct: [id number] Name: TONY ARIZA Rep #:[id number] : 1960 64 From: Robson Xiao mansoordoni DO PCP: Ingris Chu, LOGGING TRACTOR OPERATOR-C Status: ADM IN Location: ICU ICU04-1 HPI - General General Date of Admission: 05/23/24 Date of Service: 05/23/24 Chief Complaint: Altered mentation HPI Narrative TONY ARIZA, is a 64 M who presented to [facility] ED on 05/23/2024 with altered mentation. Patient came from assisted living. Medical history is significant for COPD, schizophrenia, chronic venous stasis dermatitis, dysphagia and debility. Was last hospitalized here in December for acute hypoxic respiratory failure secondary to COPD exacerbation with suspected aspiration pneumonia. On arrival to the ED today patient was very somnolent andnot answering any questions for staff. ABG showed pH 7.27, pCO2 72, pO2 70 on room air. He was placed on BiPAP but remained very somnolent, so decision was made to intubate him. He was intubated without issue. Staff did note that he began to have agitation postintubation and was requiring fairly high sedation requirements. Given all of these things, hospitalist was contacted for admission. I saw the patient at bedside in the ED. He was intubated and sedated. He had nonpurposeful movements noted but did not respond to command. Will be admitted for further management. [facility] Medical History (Updated 05/23/24 @ 16:[address] Bret Nunes MD) Hypercarbia Aspiration pneumonia Hypoxemia GERD (gastroesophageal reflux disease) Sepsis Tobacco abuse Schizophrenia COPD exacerbation Bipolar disorder Home Medications ?Medication ?Instructions ?Recorded ?Last Taken ?Type olanzapine 10 mg tablet 10 mg PO DAILY 02/18/15 Unkn own History omeprazole 20 mg capsule,delayed 20 mg PO BID 02/18/15 Unknown History release spironolactone 25 mg tablet 25 mg PO DAILY 02/18/15 Un known History fluphenazine decanoate 25 mg/mL 25 mg IM Q14D PARANOID 07/29/16 Unknown History injection solution SCHIZOPHRENIA montelukast 10 mg tablet 10 mg PO DAILY 05/02/18 Unkn own History olanzapine 20 mg tablet (Zyprexa) 20 mg PO QHS 9 Unknown History omega-3 fatty acids-fish oil 300 2 capsule PO BID defi ciency 05/02/18 10/29/23 History mg-1,000 mg capsule simvastatin 20 mg tablet (Zocor) 20 mg PO QHS 05/02/18 Unknown History amlodipine 5 mg tablet 5 mg PO DAILY bp 03/22/23 Un known History ammonium lactate 12 % topical cream 1 applic topical B ID skin 10/30/23 10/29/23 History irritation multivitamin (Daily Multi-Vitamin 1 tab PO DAILY repla cement 12/09/23 Unknown History tablet) acetaminophen 325 mg tablet 650 mg PO Q4H PRN fever or pain 05/23/24 Unknown History acetaminophen 650 mg rectal 650 mg [place] Q4H PRN pain Unknown History suppository aluminum-mag hydroxide-simethicone 30 ml PO Q4H PRN in digestion 05/23/24 Unknown History 400 mg-400 mg-40 mg/5 mL oral susp (Mintox Maximum Strength) amoxicillin 875 mg-potassium 1 tab PO Q12H 05/23/24 Un known History clavulanate 125 mg tablet bisacodyl 10 mg rectal suppository 10 mg [place] DAILY PRN CONSTIPATION 05/23/24 Unknown History cholecalciferol (vitamin D3) 50 50 mcg PO QHS SUPPLEME NT 05/23/24 Unknown History mcg (2,000 unit) tablet (D3 DOTS) lithium carbonate 600 mg capsule 600 mg PO QHS BIPOLAR 05/23/24 Unknown History magnesium hydroxide 400 mg/5 mL 30 ml PO DAILY PRN con stipation 05/23/24 Unknown History oral suspension (Dulcolax (magnesium hydroxide)) melatonin 5 mg tablet 5 mg PO QHS 05/23/24 Unknown History menthol 10 % topical cream 1 applic topical Q12H PRN p ain 05/23/24 Unknown History (Biofreeze (menthol)) sodium phosphates 19 gram-7 118 ml [place] BID PRN constipa tion 05/23/24 Unknown History gram/118 mL enema (Fleet Enema) trazodone 50 mg tablet 50 mg PO QHS sleep 05/23/24 Unknown History Allergy/AdvReac Type Severity Reaction Status Date / Time codeine AdvReac Upset Verified 12/08/23 16:08 Stomach haloperidol (From Haldol) AdvReac Abd Verified 12/08/23 16:08 cramps/diarrhea haloperidol lactate (From AdvReac Abd Verified 12/08/23 16:08 Haldol) cramps/diarrhea ziprasidone AdvReac Unknown Verified 12/08/23 16:08 Family History Mother Diabetes Surgical History S/P right knee arthroscopy S/P laparoscopic cholecystectomy History of esophagogastroduodenoscopy (EGD) S/P bilateral inguinal hernia repair Social History Smoking Status: Current every day smoker tobacco type: cigarettes ROS Review of Systems ROS Unobtainable: due to endotracheal tube Vital Signs Vital Signs Vital Signs: 05/23/24 10:39 05/23/24 11:09 05/23/24 11:09 Temperature 100.4 F H 100.4 F H 100.4 F H Temperature Source Oral Temporal Oral Pulse Rate 90 96 Respiratory Rate 68 H 68 H Respiratory Effort Respiratory Depth Respiratory Pattern Blood Pressure 129/70 H 130/77 H 130/77 H Blood Pressure Mean 89 94 94 Pulse Ox 74 98 Oxygen Delivery Method Room Air Non-Rebreather Oxygen Flow Rate (L/min) 10 Fraction of Inspired Oxygen (FIO2) 05/23/24 11:27 05/23/24 11:30 05/23/24 11:30 Temperature Temperature Source Pulse Rate 90 Respiratory Rate 40 H Respiratory Effort Short of Breath Labored Respiratory Depth Respiratory Pattern Tachypnea Tachypnea Blood Pressure Blood Pressure Mean Pulse Ox 94 Oxygen Delivery Method Non-Rebreather Oxygen Flow Rate (L/min) 15 Fraction of Inspired Oxygen (FIO2) 35 05/23/24 11:31 05/23/24 11:39 05/23/24 12:00 Temperature 96.4 F L Temperature Source Temporal Pulse Rate 96 81 Respiratory Rate 21 H 14 Respiratory Effort Labored Accessory Muscle Use Head [place] Respiratory Depth Deep Respiratory Pattern Tachypnea Tachypnea Blood Pressure 112/61 Blood Pressure Mean 78 Pulse Ox 94 96 Oxygen Delivery Method Nasal Cannula Mechanical Ventilator Oxygen Flow Rate (L/min) 6 Fraction of Inspired Oxygen (FIO2) 50 05/23/24 12:18 05/23/24 12:30 05/23/24 12:45 Temperature Temperature Source Pulse Rate 82 82 Respiratory Rate 15 17 Respiratory Effort Respiratory Depth Respiratory Pattern Blood Pressure 107/78 97/63 Blood Pressure Mean 89 75 Pulse Ox 97 95 Oxygen Delivery Method Oxygen Flow Rate (L/min) Fraction of Inspired Oxygen (FIO2) 05/23/24 12:53 05/23/24 13:00 05/23/24 13:00 Temperature Temperature Source Pulse Rate 79 77 Respiratory Rate 14 14 Respiratory Effort Respiratory Depth Respiratory Pattern Blood Pressure 101/55 L Blood Pressure Mean 69 Pulse Ox 98 96 Oxygen Delivery Method Oxygen Flow Rate (L/min) Fraction of Inspired Oxygen (FIO2) 05/23/24 13:15 05/23/24 13:30 05/23/24 13:45 Temperature Temperature Source Pulse Rate 75 73 70 Respiratory Rate 15 20 H 16 Respiratory Effort Respiratory Depth Respiratory Pattern Blood Pressure 106/56 L 111/57 L 115/61 Blood Pressure Mean 71 74 74 Pulse Ox 95 96 96 Oxygen Delivery Method Oxygen Flow Rate (L/min) Fraction of Inspired Oxygen (FIO2) 05/23/24 14:00 Temperature Temperature Source Pulse Rate 70 Respiratory Rate 20 H Respiratory Effort Respiratory Depth Respiratory Pattern Blood Pressure 108/58 L Blood Pressure Mean 74 Pulse Ox 96 Oxygen Delivery Method Oxygen Flow Rate (L/min) Fraction of Inspired Oxygen (FIO2) Weight Weight: 102.7 kg Body Mass Index (BMI) 34.4 Physical Exam Const Constitutional Narrative: Intubated and sedated. Nonpurposeful movements noted, not following commands. HEENT normocephalic and head/scalp atraumatic HEENT Narrative: ET tube in place. Neck supple Resp Resp Narrative: Breathing comfortably on mechanical ventilation. Mild crackles noted in bilateral mid lung zones, otherwise good air movement throughout and no wheezingnoted. Cardio regular rate, regular rhythm and no murmurs GI normal to inspection, nondistended, normoactive bowel sounds, soft to palpation,non-tender and non-distended Extremity Extremity Narrative: Severe venous stasis dermatitis noted bilaterally. No overt areas of infection noted. Results Lab / Micro Data 05/23/24 11:00 05/23/24 11:00 Labs: Laboratory Results - last 24 hr 05/23/24 11:00: WBC 5.1, RBC 3.70 L, Hgb 12.3 L, Hct 39.8 L, MCV 107.6 H, MCH 33.2 H, MCHC 30.9 L, RDW Std Deviation 67.9 H, RDW Coeff of Babatunde 17.2 H, Plt Count 79 L, MPV 10.3, Immature Gran % (Auto) 0.400, Neut % (Auto) 79.8 H, Lymph % (Auto) 10.9 L, Gove % (Auto) 6.4, Eos % (Auto) 2.1, Baso % (Auto) 0.4, Absolute Neuts (auto) 4.1, Absolute Lymphs (auto) 0.56 L, Nucleated RBC % 0.6, Platelet Estimate MOD DEC, Plt Morphology Comment CLUMPED, Polychromasia 1+, Anisocytosis 1+, PT 14.8, INR 1.1, APTT 25.5, Sodium 131 L, Potassium 4.9, Chloride 96 L, Carbon Dioxide 25.6, Anion Gap 9, BUN 10, Creatinine 1.30 H, EstimCreat Clear Calc 68.43, Est GFR (MDRD) Non-Af 62, BUN/Creatinine Ratio 7.9 L, Glucose 99, Lactic Acid < 1.0, Calcium 8.8, Total Bilirubin 0.70, AST 23, ALT 15, Alkaline Phosphatase 100, Troponin T High Sens 35 H, Total Protein 8.4, Albumin 3.9, Globulin 4.5 H, Albumin/Globulin Ratio 0.9 05/23/24 11:20: Urine Color Yellow, Urine Clarity Clear, Urine pH 6.0, Ur Specific [place] 1.010, Urine Protein 30 H, Urine Glucose (UA) Normal, Urine Ketones Negative, Urine Occult Blood Negative, Urine Nitrite Negative, Urine Bilirubin Negative, Urine Urobilinogen Normal, Ur Leukocyte Esterase 25 H, UrineRBC 0 SEEN, Urine WBC 0-5 SEEN, Ur Squamous Epith Cells 0 SEEN, Urine Bacteria 0SEEN, Urine Mucus 0 SEEN 05/23/24 13:17: Troponin T Hi Sens 2 Hr 36 H Micro: Microbiology 05/23/24 11:20 Mucosa - Nose SARS-CoV-2, Influenza & RSV (PCR) - Final ABG Data ABG results: ABG 05/23/24 05/23/24 11:06 13:12 Specimen Type ART ART Sample Site R Radial R Radial pH 7.27 L 7.30 L Bicarbonate Actual 33.1 H 35.1 H Total CO2 35 37 Base Excess 6 H 9 H O2 Saturation 70 L 86 L O2 % 6.0 50.0 ABG pCO2 72.3 H* 71.8 H* ABG pO2 44 L 60 L Leah Test Positive Positive Respiration Rate 14 O2 Delivery Device Cannula Adult Vent Vent Mode Not entered AC Tidal Volume 450.0 POC PEEP 5 Crit Call To/Read Back Yes Yes Blood Gas Notified Whom aleksandar aleksandar Blood Gas Notified Time 11:08:22 13:13:42 Rhythm Strip Rhythm Strip: Sinus Rhythm Rate: 95 Ectopy: None Imaging Radiology Impression Chest X-Ray 05/23/24 11:09 IMPRESSION: Cardiomegaly with mild congestion. [facility] 05/23/24 11:10 IMPRESSION: Mild degree of cerebral atrophy. Reading Location: [facility] Assessment & Plan Assessment/Plan (1) Acute respiratory failure with hypoxia and hypercapnia: (2) Chronic venous stasis dermatitis of both lower extremities: PLAN: Plan Patient is a 64-year-old male who presented [facility] ED on 05/23/2024 with altered mentation. 1. Acute hypoxic and hypercapnic respiratory failure ? Admit under inpatient status to ICU. 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 consulted. ABG in ED on nasal cannula showed pH 7.27, pCO2 72, pO2 40. Chest x-ray showed cardiomegaly with mild vascular congestion. Unclear etiology but respiratory failure may be secondary to decreased respiratory drive in setting of acute encephalopathy is notable low. BNP normal, low concern for heart failure. Not wheezy on exam, low concern for COPD exacerbation. Continue mechanical ventilation at this time. Appreciate further steam tender recommendations. 2. Acute toxic/metabolic encephalopathy ? Unclear etiology at this time. Patient was very somnolent on arrival to the ED and came from assisted living. Has history of schizophrenia and is on lithium, olanzapine and fluphenazine every 2 weeks. [place] level ordered. Urine drug screen ordered as well. Patient currently sedated while on mechanical ventilation. Okay to continue home lithium and olanzapine for now ifthey can be given through OG tube. Appreciate further steam tender recommendations. 3. Severe chronic venous stasis dermatitis with concern for cellulitis ? Patient with severe venous stasis changes noted in the ED. No sites of activedrainage noted but cannot rule out cellulitis. Procalcitonin ordered. Will treat with IV vancomycin and Zosyn for now. 4. Mild hyponatremia ? Sodium 131 on admit. Chloride 96 and creatinine 1.30, mildly elevated from baseline 1.1-1.2. Suspect due to mild dehydration and was given 1 L of normal saline in the ED. Follow-up a.m. labs. 5. Acute on chronic debility ? PT/OT/case management consulted. Patient came from assisted living, has some degree of debility at baseline. Appreciate further therapy recommendations. 6. History of dysphagia ? Speech therapy consulted. Was found on modified barium swallow study back in October 2023 to have moderate oropharyngeal dysphagia. Admitted in December with concern for possible aspiration pneumonia. Currently intubated; appreciate speech therapy recommendations once patient has been extubated. 7. Tobacco use disorder ? Reportedly a current smoker. NRT available while inpatient as needed. Chronic medical conditions: ? Class I obesity: BMI 34 on admit. Complicates hospital course, care and prognosis. ? COPD: Acute hypoxic and hypercapnic respiratory failure as noted above but no wheezing on exam and have lower concern for COPD exacerbation. Will not treat with steroids or DuoNebs at this time. Continue home inhalers. ? Schizophrenia: [place] level ordered as above. Will continue home lithium andolanzapine at this time. ? GERD: Continue home PPI. ? Hypertension: Blood pressure soft after intubation with sedation, will hold home amlodipine and spironolactone for now. ? Hyperlipidemia: Continue home statin. DVT prophylaxis: Lovenox CODE STATUS: Full code, unverified Expected disposition: TBD Total clinical time spent by myself addressing the patient's medical issues, reviewing all the data, and collaborating with patient's care team: 75 minutes. Charges/Coding Visit Charges Inpatient E&M: 03798 Init Hosp L3 05/23/24 1207 <Electronically signed by Robson George DO> Cosigner Signature (if applicable): CC: MARY Chu; Dr. Robson George DO~ Signed [facility] Work Phone: [phone] Discharge summary Author Bret Nunes [facility] Note Date/Time May 23, 2024 4:3 1pm [facility] Medical Records Department [address] [place] [address] Emergency Department Summary 05/23/24 MR#: [id number] Acct: [id number] Name: TONY ARIZA Rep #:[id number] : 1960 64 From: Bret Nunes MD PCP: Ingris Chu, LOGGING TRACTOR OPERATORCarlosC Status: ADM IN Location: ICU ICU-1 HPI History of Present Illness Chief Complaint: Alt LOC Informant: patient and EMS Narrative Narrative: 64-year-old male with COPD coming from assisted living with a decreased level ofconsciousness dyspnea. History not obtainable from the patient, as he is very somnolent and difficult to keep awake on my evaluation. [facility] Medical History (Updated 05/23/24 @ 16:[address] Bret Nunes MD) Hypercarbia Aspiration pneumonia Hypoxemia GERD (gastroesophageal reflux disease) Sepsis Tobacco abuse Schizophrenia COPD exacerbation Bipolar disorder Home Medications ?Medication ?Instructions ?Recorded ?Last Taken ?Type olanzapine 10 mg tablet 10 mg PO DAILY 02/18/15 Unkn own History omeprazole 20 mg capsule,delayed 20 mg PO BID 02/18/15 Unknown History release spironolactone 25 mg tablet 25 mg PO DAILY 02/18/15 Un known History fluphenazine decanoate 25 mg/mL 25 mg IM Q14D PARANOID 07/29/16 Unknown History injection solution SCHIZOPHRENIA montelukast 10 mg tablet 10 mg PO DAILY 05/02/18 Unkn own History olanzapine 20 mg tablet (Zyprexa) 20 mg PO QHS 9 Unknown History omega-3 fatty acids-fish oil 300 2 capsule PO BID defi ciency 05/02/18 10/29/23 History mg-1,000 mg capsule simvastatin 20 mg tablet (Zocor) 20 mg PO QHS 05/02/18 Unknown History amlodipine 5 mg tablet 5 mg PO DAILY bp 03/22/23 Un known History ammonium lactate 12 % topical cream 1 applic topical B ID skin 10/30/23 10/29/23 History irritation multivitamin (Daily Multi-Vitamin 1 tab PO DAILY repla cement 12/09/23 Unknown History tablet) acetaminophen 325 mg tablet 650 mg PO Q4H PRN fever or pain 05/23/24 Unknown History acetaminophen 650 mg rectal 650 mg [place] Q4H PRN pain Unknown History suppository aluminum-mag hydroxide-simethicone 30 ml PO Q4H PRN in digestion 05/23/24 Unknown History 400 mg-400 mg-40 mg/5 mL oral susp (Mintox Maximum Strength) amoxicillin 875 mg-potassium 1 tab PO Q12H 05/23/24 Un known History clavulanate 125 mg tablet bisacodyl 10 mg rectal suppository 10 mg [place] DAILY PRN CONSTIPATION 05/23/24 Unknown History cholecalciferol (vitamin D3) 50 50 mcg PO QHS SUPPLEME NT 05/23/24 Unknown History mcg (2,000 unit) tablet (D3 DOTS) lithium carbonate 600 mg capsule 600 mg PO QHS BIPOLAR 05/23/24 Unknown History magnesium hydroxide 400 mg/5 mL 30 ml PO DAILY PRN con stipation 05/23/24 Unknown History oral suspension (Dulcolax (magnesium hydroxide)) melatonin 5 mg tablet 5 mg PO QHS 05/23/24 Unknown History menthol 10 % topical cream 1 applic topical Q12H PRN p ain 05/23/24 Unknown History (Biofreeze (menthol)) sodium phosphates 19 gram-7 118 ml [place] BID PRN constipa tion 05/23/24 Unknown History gram/118 mL enema (Fleet Enema) trazodone 50 mg tablet 50 mg PO QHS sleep 05/23/24 Unknown History Allergy/AdvReac Type Severity Reaction Status Date / Time codeine AdvReac Upset Verified 12/08/23 16:08 Stomach haloperidol (From Haldol) AdvReac Abd Verified 12/08/23 16:08 cramps/diarrhea haloperidol lactate (From AdvReac Abd Verified 12/08/23 16:08 Haldol) cramps/diarrhea ziprasidone AdvReac Unknown Verified 12/08/23 16:08 Family History Mother Diabetes Surgical History S/P right knee arthroscopy S/P laparoscopic cholecystectomy History of esophagogastroduodenoscopy (EGD) S/P bilateral inguinal hernia repair Social History Smoking Status: Current every day smoker tobacco type: cigarettes ROS ROS ED Review of Systems ROS Unobtainable: due to mental status EXAM Physical Exam Const Vital Signs: 05/23/24 10:39 05/23/24 11:09 05/23/24 11:09 Temperature 100.4 F H 100.4 F H 100.4 F H Temperature Source Oral Temporal Oral Pulse Rate 90 96 Respiratory Rate 68 H 68 H Respiratory Effort Respiratory Depth Respiratory Pattern Blood Pressure 129/70 H 130/77 H 130/77 H Blood Pressure Mean 89 94 94 Pulse Ox 74 98 Oxygen Delivery Method Room Air Non-Rebreather Oxygen Flow Rate (L/min) 10 Fraction of Inspired Oxygen (FIO2) 05/23/24 11:27 05/23/24 11:30 05/23/24 11:30 Temperature Temperature Source Pulse Rate 90 Respiratory Rate 40 H Respiratory Effort Short of Breath Labored Respiratory Depth Respiratory Pattern Tachypnea Tachypnea Blood Pressure Blood Pressure Mean Pulse Ox 94 Oxygen Delivery Method Non-Rebreather Oxygen Flow Rate (L/min) 15 Fraction of Inspired Oxygen (FIO2) 35 05/23/24 11:31 05/23/24 11:39 05/23/24 12:00 Temperature 96.4 F L Temperature Source Temporal Pulse Rate 96 81 Respiratory Rate 21 H 14 Respiratory Effort Labored Accessory Muscle Use Head [place] Respiratory Depth Deep Respiratory Pattern Tachypnea Tachypnea Blood Pressure 112/61 Blood Pressure Mean 78 Pulse Ox 94 96 Oxygen Delivery Method Nasal Cannula Mechanical Ventilator Oxygen Flow Rate (L/min) 6 Fraction of Inspired Oxygen (FIO2) 50 05/23/24 12:18 05/23/24 12:30 05/23/24 12:45 Temperature Temperature Source Pulse Rate 82 82 Respiratory Rate 15 17 Respiratory Effort Respiratory Depth Respiratory Pattern Blood Pressure 107/78 97/63 Blood Pressure Mean 89 75 Pulse Ox 97 95 Oxygen Delivery Method Oxygen Flow Rate (L/min) Fraction of Inspired Oxygen (FIO2) 05/23/24 12:53 05/23/24 13:00 05/23/24 13:00 Temperature Temperature Source Pulse Rate 79 77 Respiratory Rate 14 14 Respiratory Effort Respiratory Depth Respiratory Pattern Blood Pressure 101/55 L Blood Pressure Mean 69 Pulse Ox 98 96 Oxygen Delivery Method Oxygen Flow Rate (L/min) Fraction of Inspired Oxygen (FIO2) 05/23/24 13:15 05/23/24 13:30 05/23/24 13:45 Temperature Temperature Source Pulse Rate 75 73 70 Respiratory Rate 15 20 H 16 Respiratory Effort Respiratory Depth Respiratory Pattern Blood Pressure 106/56 L 111/57 L 115/61 Blood Pressure Mean 71 74 74 Pulse Ox 95 96 96 Oxygen Delivery Method Oxygen Flow Rate (L/min) Fraction of Inspired Oxygen (FIO2) 05/23/24 14:00 05/23/24 14:15 05/23/24 14:30 Temperature Temperature Source Pulse Rate 70 70 Respiratory Rate 20 H 20 H Respiratory Effort Respiratory Depth Respiratory Pattern Blood Pressure 108/58 L 109/61 106/65 Blood Pressure Mean 74 76 78 Pulse Ox 96 96 Oxygen Delivery Method Oxygen Flow Rate (L/min) Fraction of Inspired Oxygen (FIO2) Positive well nourished, well developed and obese General Appearance ED: well developed and NAD Nutritional Appearance: obese HEENT Reports moist mucous membranes normocephalic and atraumatic Eyes PERRL and EOMs intact bilaterally Neck full ROM, supple and no meningeal signs Neck Narrative: Trachea midline Resp Resp Narrative: Respiratory distress, extremely diminished throughout but symmetrically with midline trachea, mildly prolonged expiratory phase Cardio regular rate, regular rhythm and no murmurs GI non-tender and non-distended GI Narrative: Protuberant abdomen, soft and nontender Auscultation: normoactive bowel sounds Palpation: soft Back/Spine no CVA tenderness General Back: other FROM Extremity Extremity Narrative: Chronic stasis dermatitis both lower extremities with white discharge discoloration between the first second webspaces of both feet, difficult to assess for tenderness given the patient's mental status General Extremety ED: Yes edema; Negative for pulses abnormal or tenderness General Extremity: edema bilateral lower extremity Details: severe; Negative forpulses abnormal Neuro no sensory deficits noted Neuro Narrative: Moves all 4 extremities in response to pain Sensorium / Orientation: stuporous Motor Exam: general weakness Sepsis Attestation Sepsis Attestation: Sepsis Ruled Out Date exam was performed: 05/23/24 Time exam was performed: 13:45 Supportive Findings: Vital signs stable, lack of lactic acidosis, lack of infectious source definitive MDM MDM MDM Narrative Medical decision making narrative: Prior to my being able to evaluate the patient due to other emergencies in the department, staff obtained an ABG and initiated BiPAP, the ABG shows significantrespiratory acidosis, by the time I evaluated the patient, he is on BiPAP but not vomiting, but I am not able to keep him awake or get any information from him. Therefore I alerted staff and respiratory to set up for an emergent intubation. See the procedure note this was done, then we sedated the patient which took quite a bit of medication including propofol and fentanyl drips. This resulted in some soft blood pressures, which we treated with IV fluids, which she responded to. The chest x-ray 1 view on my interpretation shows good ETT placement, I had nursing push the OGT a little further, although it is at least adequate on the x-ray, and he appears to have either some bibasilar infiltrate versus congestion on the chest x-ray. Radiology is calling it cardiomegaly and mild congestion. He does not have a prior echocardiogram in the system for me to review, I added a BNP. He does not have a leukocytosis andhis viral swab is negative, but sepsis was considered because the patient presented with a temperature of 100.4. His legs look awful, and probably chronic but there is no way for me to tell if there is something acute here or not sinceI have not seen his legs in the past. Providing empiric Zosyn given all of this. Discussed with hospitalist for ICU admission. Lab Data Attestation: I reviewed the patient's lab results. Labs: Laboratory Results - last 24 hr 05/23/24 05/23/24 05/23/24 11:00 11:20 13:17 WBC 5.1 RBC 3.70 L Hgb 12.3 L Hct 39.8 L MCV 107.6 H MCH 33.2 H MCHC 30.9 L RDW Std Deviation 67.9 H RDW Coeff of Babatunde 17.2 H Plt Count 79 L MPV 10.3 Immature Gran % (Auto) 0.400 Neut % (Auto) 79.8 H Lymph % (Auto) 10.9 L Gove % (Auto) 6.4 Eos % (Auto) 2.1 Baso % (Auto) 0.4 Absolute Neuts (auto) 4.1 Absolute Lymphs (auto) 0.56 L Nucleated RBC % 0.6 Platelet Estimate MOD DEC Plt Morphology Comment CLUMPED Polychromasia 1+ Anisocytosis 1+ PT 14.8 INR 1.1 APTT 25.5 Sodium 131 L Potassium 4.9 Chloride 96 L Carbon Dioxide 25.6 Anion Gap 9 BUN 10 Creatinine 1.30 H Estim Creat Clear Calc 68.43 Est GFR (MDRD) Non-Af 62 BUN/Creatinine Ratio 7.9 L Glucose 99 Lactic Acid < 1.0 Calcium 8.8 Total Bilirubin 0.70 AST 23 ALT 15 Alkaline Phosphatase 100 Total Creatine Kinase 40 Troponin T High Sens 35 H Troponin T Hi Sens 2 Hr 36 H Total Protein 8.4 Albumin 3.9 Globulin 4.5 H Albumin/Globulin Ratio 0.9 Triglycerides 96 Urine Color Yellow Urine Clarity Clear Urine pH 6.0 Ur Specific [place] 1.010 Urine Protein 30 H Urine Glucose (UA) Normal Urine Ketones Negative Urine Occult Blood Negative Urine Nitrite Negative Urine Bilirubin Negative Urine Urobilinogen Normal Ur Leukocyte Esterase 25 H Urine RBC 0 SEEN Urine WBC 0-5 SEEN Ur Squamous Epith Cells 0 SEEN Urine Bacteria 0 SEEN Urine Mucus 0 SEEN ABG Data ABG results: ABG 05/23/24 05/23/24 11:06 13:12 Specimen Type ART ART Sample Site R Radial R Radial pH 7.27 L 7.30 L Bicarbonate Actual 33.1 H 35.1 H Total CO2 35 37 Base Excess 6 H 9 H O2 Saturation 70 L 86 L O2 % 6.0 50.0 ABG pCO2 72.3 H* 71.8 H* ABG pO2 44 L 60 L Leah Test Positive Positive Respiration Rate 14 O2 Delivery Device Cannula Adult Vent Vent Mode Not entered AC Tidal Volume 450.0 POC PEEP 5 Crit Call To/Read Back Yes Yes Blood Gas Notified Whom aleksandar aleksandar Blood Gas Notified Time 11:08:22 13:13:42 Radiography Diagnostic Testing: Clinical Impression(s) from Imaging Studies Chest X-Ray 05/23/24 11:09 IMPRESSION: Cardiomegaly with mild congestion. Reading Location: [facility] Brain CT 05/23/24 11:10 IMPRESSION: Mild degree of cerebral atrophy. Reading Location: [facility] Rhythm Strip Rhythm Strip: Sinus Rhythm Rate: 95 Ectopy: None EKG Initial EKG: Attestation: I personally reviewed and interpreted this EKG as follows: Interpretation: Sinus Rhythm and No Acute Injury Pattern Management Discussion w/another healthcare provider: Hospitalist Procedures Intubations Intubation Method: orotracheal (8.0F ETT placed 22 cm at the lip via video laryngoscopy, visualizing the tube passing through the cords) Intubation Verification: Positive color change and Bilateral breath sounds confirmed (And good fogging of tube) Intubation Complications: no complications (Stat portable chest x-ray 1 view on my interpretation confirms good tube placement) Procedural Sedation 1 (Initial Baseline): Consent Signed: No (Emergent situation) Sedation medication: Etomidate Dose: 20 Route: IV Total Moderate Sedation Units: 8 Maliampati Score: Class IV ASA Classification: III Comment:: On monitor with preoxygenation with BiPAP and BGV and IV fluids, tolerated well with no complications. Critical Care Time Critical Care Time: Yes Critical care time (excluding procedures): 30-74 minutes (32 min, not including procedure time), Including time spent:, Discussing w/Patient &/or Family/Pack Worker Supervisor, Discussing w/Consultants, Arranging Admission or Transfer and Performing Direct Patient Care at Bedside Discharge Plan Dx/Rx/DC Orders Clinical Impression: Acute respiratory failure with hypoxia and hypercapnia, Bilateral edema of lower extremity, COPD with acute exacerbation Disposition Disposition: Acute Care Hospital [facility] What to do if you have Problems For any increased pain, shortness of breath, bleeding, nausea or vomiting, chestpain, or any unexpected problems, contact your Primary Care Provider. Call [facility] ([phone]) or report to the closest Emergency Room. Call 911 if necessary. 05/23/24 1631 <Electronically signed by Bret Nunes MD> Cosigner Signature (if applicable): CC: LOGGING TRACTOR OPERATOR-C Ingris Chu ~ Signed [facility] Work Phone: 1(887) 557-455203-21-2025 Radiology Diagnostic study note [facility] Imaging Services [address] [place], [place] [address] Chest 1 View (Portable) MR#: [id number] Acct: [id number] Name: TOTONY Rep #: [id number] : 1960 M 64 From: Ivy Vizcarra MD PCP: Ingris Chu, MARIANC Status: REG ER Study:Chest 1 View (Portable) Date of Exam: 05/23/24 Exam# [id number] Ordering Dr: Sofía Nunes MD EXAM: XR Chest, 1 View CLINICAL INDICATION: ALTERED LOC TECHNIQUE: Frontal view of the chest. COMPARISON: No relevant prior studies available. FINDINGS: LUNGS AND PLEURAL SPACES: See below. HEART: Cardiomegaly with mild congestion. MEDIASTINUM: Unremarkable. Normal mediastinal contour. BONES/JOINTS: Unremarkable. No acute fracture. TUBES, LINES AND DEVICES: The endotracheal tube (ETT) is in satisfactory position. Enteric tube tipin the stomach. RAD/Chest 1 View (Portable) IMPRESSION: Cardiomegaly with mild congestion. Reading Location: [facility] CC: LOGGING TRACTOR OPERATORCarlene Chu; Dr. Bret Nunes MD ~ Igniter Capper: Signed [facility]03-21-2025 Radiology Diagnostic study note [facility] Imaging Services [address] [place] [address] [id number] Brain/Head without Contrast MR#: [id number] Acct: [id number] Name: TONY ARIZA Rep #: [id number] : 1960 M 64 From: Jose Fernandez MD PCP: MARY Chi Status: REG ER Study:Brain/Head without Contrast Date of Exa m: 05/23/24 Exam# [id number] Ordering Dr: Sofía Nunes MD PROCEDURE: BRAIN/HEAD WITHOUT CONTRAST 05/23/2024 REASON FOR EXAM: ALTERED LOC TECHNIQUE: Multiple axial tomographic images were obtained without intravenous contrast administration. Coronal and sagittal reconstruction was obtained as well. COMPARISON: None FINDINGS: Mild degree of cerebral atrophy. Mild degree of decreased attenuation in the bilateral periventricular distribution suggestive of chronic small-vessel arterial sclerosis. No evidence of edema or mass effect. Partial opacification of the ethmoid sinuses and mucosal thickening of the left maxillary sinus. Endotracheal tube is seen. CT/Brain/Head without Contrast IMPRESSION: Mild degree of cerebral atrophy. Reading Location: [place] [address] CC: MARY Chu; Dr. Bret Nunes MD ~ Igniter Capper: Signed [facility]02-09-2024 Progress note Author Kaye Alarcon [facility] April 13, 2023 11:27am Note Date/Time April 13, 2023 8 :33am [facility] [address] [place] [address] Progress Note - Wound Care 04/13/23 0833 MR#: [id number] Acct: [id number] Name: TONY ARIZA Rep #:[id number] : 1960 63 From: Kaye LOFTON PCP: Ingris Chu LOGGING TRACTOR OPERATOR-C Status: REG RCR Location: History of Present Illness Date of Service: 04/12/23 Chief Complaint: Left dorsal foot ulcers, left lower leg ulcers History of Wound: Mr. Tony Ariza is a 63-year-old male who presents to the wound center today from his assisted living facility with a chief complaint of left lower leg and foot ulcerations. He as in ulcer on his left beasley, left lateral foot, and left dorsal foot extending into the interdigital spaces. He reports the ulcer between his toes started first and this was about 4 to 6 weeksago. The other ulcers have probably been present for about 3 weeks. He tried to take care of these himself with Neosporin but they continued to worsen. He denies any recent antibiotic treatment. He denies nausea, vomiting, fevers, chills, worsening or purulent drainage, extending redness up his leg, new or worsening pain in his left leg. He does have significant bilateral lower extremity edema, left worse than right. He has not been wearing any compression. He does admit that he also has not been elevating his legs when resting. He does both smoke cigarettes and vape, and he is not interested in quitting. He is not diabetic. He does have a history of prior similar ulcerations to his lower extremities and has been seen here at the wound healing center multiple times in the past. Subjective Subjective He has continued to do well with the 3M wraps, his edema has been much improved.He denies any new/worsening pain, redness, swelling in his lower extremities. The wounds continued to improve in size and appearance. He does have stable tenderness over the lateral foot wound. He denies any draining through the dressings. He said he did a good job keepingthem clean and dry this week. He denies nausea, vomiting, fevers, chills. Objective Data Objective Data Vital Signs: Vital Signs Temp Pulse Resp BP O2 Del Method 96.9 F L 93 20 H 142/73 H Room Air 04/12/23 13:24 04/12/23 13:24 04/12/23 13:24 04/12/23 13:24 04/12/23 13:24 Oxygen Delivery Method Room Air Weight: 200 lb Charges/Coding Procedures Integumentary 111xxx-113xx: 99352 Charlee subq tissue 20 sq cm/< (total area of debridement was 45.51 sqcm) Physical Exam Const alert, oriented x3, no apparent distress and average body habitus General Appearance: cooperative HEENT normocephalic, head/scalp atraumatic, hearing grossly normal bilaterally, external ears normal and external nose normal Eyes EOMs intact bilaterally General Eye: normal appearance of both eyes Neck General: normal visual inspection and trachea midline Resp normal respiratory effort, no retractions and no use of accessory muscles Effort and Inspection: able to speak in complete sentences; Negative for labored, grunting, stridor or audible wheezes Cardio regular rate and regular rhythm Extremity Extremity Narrative: left DP and PT pulses with multiphasic signals on Doppler Significant improvement in his bilateral lower extremity edema. Skin Wounds: wounds noted Wound Narrative: Large superficial ulceration to the left beasley with significant improvement in appearance without significant maceration. Still with a moderate amount of slough. Able to remove much more of the dried, adherent drainage today. Ulceration to the left lateral foot also with larger size by measure but was able to remove a lot more of the adherent, dried drainage so able to visualize more of the active wound bed. Ulceration to the dorsum of the left foot is significantly reduced in size and improved in appearance, much less macerated. No longer extends into the interdigital spaces, this portion has healed. No focal or extending erythema, no fluctuance, excessive warmth. Neuro oriented x3, CN's II-XII intact bilaterally and moves all extremities Psych mental status grossly normal Attitude: calm and engaged Activity / Motor Behavior: appropriate eye contact Speech: normal speech Mood & Affect: euthymic mood Debridement Note Debridement Note Wound debrided: left beasley cluster Laterality: Left Type of Debridement: Excisional debridement Anesthesia Used: 4% Lidocaine Solution Depth: Down to and including healthy tissue Percentage of wound debrided: 100 Instrument Used: 5mm curette Tissue Removed: slough, devitalized tissue Severity: Limited To Skin Breakdown Amount of bleeding with debridement: Mild Bleeding Controlled with: Pressure Patient tolerated procedure: Patient tolerated procedure well Post-Debridement Measurements and Additional Note: Post-Debridement Measurements/Treatment RA Gonzalez Nurse 1 - General Ulcer Assessment Start: 04/05/23 14:32 Freq: Status: Active Protocol: DORA Activity Type Activity Date Activity User E-sign Co-sign Detail Recorded Client Recorded Date Recorded By Document 04/05/23 14:32 BMF Desktop 04/05/23 14:50 BMF Document 04/12/23 13:24 KW Desktop 04/12/23 13:41 KW 04/05/23 04/12/23 14:32 13:24 RA - Today's Visit Information Type of service Follow-up Visit Follow-up Visit (Physician/HOSTLER HELPER (Physician/HOSTLER HELPER ) ) Arrival Mode Ambulatory,Cane Ambulatory, Walker Transfer Assistance None Accompanied by MOM IN [facility] Patient Identification Verified (Name & Yes Yes ) Patient Requires Transmission-Based No Precautions Vital Signs Temperature (97.8 F-99.1 F) 97 F L 96.9 F L Temperature Source Temporal Temporal Pulse Rate (60-100) 85 93 Pulse Location Monitor Monitor Respiratory Rate (12-18) 16 20 H Respiratory rate source Observation Observation Oxygen Delivery Method Room Air Room Air Blood Pressure (90/60-120/80) 140/69 H 142/73 H Blood Pressure Mean (mm Hg) 92 96 Source Monitor Monitor Position Sitting Sitting Blood Pressure Location Left Arm Left Arm History Since Last Visit- (Skip if this is Patient's initial visit) Have you changed medications since your No No last visit? Any new allergies or adverse reactions No No Had a fall/change in ADL's that may No No increase risk of falls Signs or symptoms of abuse and/or No No neglect since last visit Have you been in the hospital since your No No last visit? Has dressing in place as prescribed Yes Yes Has compression in place as prescribed Yes Yes Has offloadiing in place as prescribed N/A N/A Experienced any changes in pain level or No No management Left Footwear Regular Shoe Right Footwear Regular Shoe Pain Scale: 0-10 Numeric Is Patient Pain Free? Yes Yes RA - Nurse 1 - General Ulcer Measurement Start: 04/05/23 14:32 Freq: Status: Active Protocol: Activity Type Activity Date Activity User E-sign Co-sign Detail Recorded Client Recorded Date Recorded By Document 04/05/23 14:32 BMF Desktop 04/05/23 14:50 BM Document 04/12/23 13:24 KW Desktop 04/12/23 13:41 KW 04/05/23 04/12/23 14:32 13:24 Wound Center Nurse 1 #17- 1ST/2ND INTERDIGITAL SPACE L FOOT -Combined with other wound No -Current Size (cm) - Length 0.1 -Current Size (cm) - Width 0.1 -Current Size (cm) - Depth 0.1 -Total Square Cm 0.01 -Epithelialization Large 67-100% -Exudate Amt None Present -Texture (Brandi-wound Skin Appearance) Assessed -Moisture (Brandi-wound Skin Appearance) Assessed,Dry/ Scaly -Color (Brandi-wound Skin Appearance) Assessed -Temperature (Brandi-wound Skin No Abnormality Appearance) (Pt Warm) -Tenderness on Palpation (Brandi-wound No Skin Appearance) -Ulcer Cleansing Soap and Water -Foul Odor after Cleansing No -Anesthetic Used 5% Lidocaine Gel #16- L LAT FOOT CLUSTER -Combined with other wound No -Current Size (cm) - Length 0.1 0.1 -Current Size (cm) - Width 0.1 0.1 -Current Size (cm) - Depth 0.1 0.1 -Total Square Cm 0.01 0.01 -Epithelialization Large 67-100% -Tunneling No -Undermining/Tunneling No -Circular Undermining No -Exudate Amt None Present -Texture (Brandi-wound Skin Appearance) Assessed,Callus -Moisture (Brandi-wound Skin Appearance) Assessed,Dry/ Dry/Scaly Scaly -Color (Brandi-wound Skin Appearance) Assessed -Temperature (Brandi-wound Skin No Abnormality Appearance) (Pt Warm) -Tenderness on Palpation (Brandi-wound No Skin Appearance) -Ulcer Cleansing Soap and Water Soap and Water -Foul Odor after Cleansing No -Anesthetic Used 5% Lidocaine 4% Lidocaine Gel Solution -Wound Comment(s) CLUSTER OF [place] #15- L MED BEASLEY LE CLUSTER -Combined with other wound No -Current Size (cm) - Length 11.5 0.1 -Current Size (cm) - Width 4.6 0.1 -Current Size (cm) - Depth 0.1 0.1 -Total Square Cm 52.90 0.01 -Epithelialization Small 1-33% -Tunneling No -Undermining/Tunneling No -Circular Undermining No -Exudate Amt Medium -Exudate Type Serosanguineous -Wound Margin Distinct, Outline Attached -Granulation Amt Medium (34-66%) Large (67-100%) -Granulation Quality Red [place] -Slough/Fibrin Yes -Necrosis Amt Medium (34-66%) -Necrotic Tissue Type Adherent Slough -Texture (Brandi-wound Skin Appearance) Assessed, Scarring -Moisture (Brandi-wound Skin Appearance) Assessed,Dry/ Maceration,Dry/ Scaly Scaly -Color (Brandi-wound Skin Appearance) Assessed -Temperature (Brandi-wound Skin No Abnormality Appearance) (Pt Warm) -Tenderness on Palpation (Brandi-wound No Skin Appearance) -Ulcer Cleansing Soap and Water Soap and Water -Foul Odor after Cleansing No -Anesthetic Used 4% Lidocaine 4% Lidocaine Solution Solution Lower Limb Edema Present Yes Right Calf (cm) 37.6 38.6 Right Ankle (cm) 25.4 25.7 Left Calf (cm) 38.5 38.2 Left Ankle (cm) 28.2 28.0 WC - Nurse 2 - General Ulcer CM Notes Start: 04/05/23 14:32 Freq: Status: Active Protocol: Activity Type Activity Date Activity User E-sign Co-sign Detail Recorded Client Recorded Date Recorded By Document 04/05/23 16:28 PL [id number] 04/05/23 16:30 PL Document 04/12/23 16:00 [id number] 04/12/23 16:06 PL 04/05/23 04/12/23 16:28 16:00 Wound Center Nurse 2 #17- 1ST/2ND INTERDIGITAL SPACE L FOOT -Procedure Performed No -Wound/Ulcer Outcome Healed- Epithelialized #16- L LAT FOOT CLUSTER -Time 14:55 13:49 -Correct Patient Yes Yes -Correct Side, Site, Position Yes Yes -Correct Procedure Yes Yes -Procedure Performed Yes Yes -Type of Procedure Debridement Debridement -Clinical Debridement Subcutaneous Subcutaneous -Tissue Removed Subcutaneous Subcutaneous -Post Debridement (cm) - Length 6.0 2.4 -Post Debridement (cm) - Width 1.5 9.7 -Post Debridement (cm) - Depth 0.1 0.2 -Total Square (Post) (cm) 9.00 23.28 -Area of Debridement (cm) - Length 6.0 2.4 -Area of Debridement (cm) - Width 1.5 9.7 -Total Square (Area) (cm) 9.00 23.28 -Tunneling No No -Undermining/Tunneling No No -Circular Undermining No No -Wound/Ulcer Outcome Not Healed Not Healed -Ulcer Cleansing Rinsed/ Rinsed/ Irrigated with Irrigated with Saline Saline -Foul Odor after Cleansing No No -Bioengineered Tissue No No -Bleeding Controlled with Pressure Pressure -Treatment Response Procedure Procedure Tolerated Well Tolerated Well -Debridement - Subq, 1st 20sq cm No No #15- L MED BEASLEY LE CLUSTER -Time 14:55 13:49 -Correct Patient Yes Yes -Correct Side, Site, Position Yes Yes -Correct Procedure Yes Yes -Procedure Performed Yes Yes -Type of Procedure Debridement Debridement -Clinical Debridement Subcutaneous Subcutaneous -Tissue Removed Subcutaneous Subcutaneous -Post Debridement (cm) - Length 11.5 5.7 -Post Debridement (cm) - Width 4.5 3.9 -Post Debridement (cm) - Depth 0.1 0.1 -Total Square (Post) (cm) 51.75 22.23 -Area of Debridement (cm) - Length 11.5 5.7 -Area of Debridement (cm) - Width 4.5 3.9 -Total Square (Area) (cm) 51.75 22.23 -Tunneling No No -Undermining/Tunneling No No -Circular Undermining No No -Wound/Ulcer Outcome Not Healed Not Healed -Ulcer Cleansing Rinsed/ Rinsed/ Irrigated with Irrigated with Saline Saline -Foul Odor after Cleansing No No -Bioengineered Tissue No No -Bleeding Controlled with Pressure Pressure -Treatment Response Procedure Procedure Tolerated Well Tolerated Well -Debridement - Subq, 1st 20sq cm Yes Yes -Debridement, SubQ, ea addt'l 20sq cm 4 2 or part thereof Pain Scale: 0-10 Numeric Is Patient Pain Free? Yes Yes WC - Nurse 3 - General Ulcer D/C NN Start: 04/05/23 14:32 Freq: Status: Active Protocol: Activity Type Activity Date Activity User E-sign Co-sign Detail Recorded Client Recorded Date Recorded By Document 04/05/23 15:24 [facility] Desktop 04/05/23 15:27 [facility] Document 04/12/23 14:13 Desktop 04/12/23 14:14 04/05/23 04/12/23 15:24 14:13 Wound Care Center Nurse 3 #17- 1ST/2ND INTERDIGITAL SPACE L FOOT -Ulcer Cleansing Rinsed/ Irrigated with Saline -Foul Odor after Cleansing No -Primary Dressing Applied Fibracol Plus 4x4 -Other Dressing DRSG PER KW FEED ELEVATOR WORKER -Primary Dressing Covered/Secured with Dry Gauze & Roll Gauze, Secured with Tape -Other Covering ABD -Fibracol Plus 4x4 1 #16- L LAT FOOT CLUSTER -Ulcer Cleansing Rinsed/ Irrigated with Saline -Foul Odor after Cleansing No -Primary Dressing Applied NonAdherent NonAdherent Contact Layer Contact Layer -Other Dressing DRSG PER KW FEED ELEVATOR WORKER -Primary Dressing Covered/Secured with Dry Gauze & Dry Gauze & Roll Gauze, Roll Gauze, Secured with Secured with Tape Tape #15- L MED BEASLEY LE CLUSTER -Ulcer Cleansing Rinsed/ Irrigated with Saline -Foul Odor after Cleansing No -Primary Dressing Applied Fibracol Plus 4x4 -Other Dressing DRSG PER KW FEED ELEVATOR WORKER -Primary Dressing Covered/Secured with Dry Gauze & Dry Gauze & Roll Gauze, Roll Gauze, Secured with Secured with Tape Tape -Fibracol Plus 4x4 0 BLE -Multi-Layered Wrap Application Multi-Layer Multi-Layer Comp - Bilat ($ Comp - Bilat ($ ) ) -Other APPLIED PER KW FEED ELEVATOR WORKER Treatment Response Procedure Tolerated Well Pain Scale: 0-10 Numeric Is Patient Pain Free? Yes Yes WC - Visit Discharge Discharge Condition Stable Stable Ambulatory Status Ambulatory,Cane Ambulatory Transportation Private Auto Private Auto Medication Reconcilliation completed & No provided to patient/care provider Clinical Summary of Care Provided Yes Other [facility] Additional Wound Wound debrided: Left lateral foot Laterality: Left Type of Debridement: Excisional debridement Anesthesia Used: 4% Lidocaine Solution Depth: Down to and including healthy tissue Percentage of wound debrided: 100 Instrument Used: 5mm curette Tissue Removed: slough, devitalized tissue Severity: Limited To Skin Breakdown Bleeding Controlled with: Pressure Patient tolerated procedure: Patient tolerated procedure well Additional Wound Wound debrided: left dorsal foot Laterality: Left Type of Debridement: Excisional debridement Anesthesia Used: 4% Lidocaine Solution Depth: Down to and including healthy tissue Percentage of wound debrided: 100 Instrument Used: 5mm curette Tissue Removed: slough, devitalized tissue Severity: Limited To Skin Breakdown Amount of bleeding with debridement: Mild Bleeding Controlled with: Pressure Patient tolerated procedure: Patient tolerated procedure well Assessment/Plan Assessment/Plan (1) Ulcer of left medial lower extremity: CODE(S): L97.829 - Non-pressure chronic ulcer of other part of left lower leg with unspecified severity (2) Ulcer of left foot: CODE(S): L97.529 - Non-pressure chronic ulcer of other part of left foot with unspecified severity (3) Skin ulcer of left foot including toes: CODE(S): L97.529 - Non-pressure chronic ulcer of other part of left foot with unspecified severity PLAN: Plan Will apply Fibracol to all open areas, cover with adaptic on L lateral foot. He is instructed to keep these dressings clean and dry at all times. Patient did well with 3M wraps this week, will continue these for compression. No apparent signs or symptoms of infection on exam today. He is encouraged to continue to elevate his legs at all times of rest, ideally at or above the level of the heart. Avoid prolonged idle sitting or standing. Regular walking regimen is encouraged. He is strongly advised to stop smoking and vaping to both support current wound healing and for his overall health. He will return early next week for wrap changes and return to see me on . 04/13/23 1127 <Electronically signed by Kaye LOFTON> Cosigner Signature (if applicable): CC: ~ Signed [facility] Work Phone: 1(831) 364-180502-02-2024 Progress note Author Kaye Alarcon [facility] April 06, 2023 10:05am Note Date/Time April 06, 2023 1 0:05am [facility] [address] [place] [address] Progress Note - Wound Care 04/06/23 0959 MR#: [id number] Acct: [id number] Name: TONY ARIZA Rep #:[id number] : 1960 63 From: Kaye LOFTON PCP: Ingris Chu, LOGGING TRACTOR OPERATOR-C Status: REG RCR Location: History of Present Illness Date of Service: 04/05/23 Chief Complaint: Left dorsal foot ulcers, left lower leg ulcers History of Wound: Mr. Tony Ariza is a 63-year-old male who presents to the wound center today from his assisted living facility with a chief complaint of left lower leg and foot ulcerations. He as in ulcer on his left beasley, left lateral foot, and left dorsal foot extending into the interdigital spaces. He reports the ulcer between his toes started first and this was about 4 to 6 weeksago. The other ulcers have probably been present for about 3 weeks. He tried to take care of these himself with Neosporin but they continued to worsen. He denies any recent antibiotic treatment. He denies nausea, vomiting, fevers, chills, worsening or purulent drainage, extending redness up his leg, new or worsening pain in his left leg. He does have significant bilateral lower extremity edema, left worse than right. He has not been wearing any compression. He does admit that he also has not been elevating his legs when resting. He does both smoke cigarettes and vape, and he is not interested in quitting. He is not diabetic. He does have a history of prior similar ulcerations to his lower extremities and has been seen here at the wound healing center multiple times in the past. Subjective Subjective Patient reports that he did well with the 3M wraps this week. He does prefer them to the Unna boot. He reports overall his legs have been feeling better although he does have some discomfort at the lateral aspect of the left foot around that wound. He reports that he has been elevating his legs more frequently throughout the day. He denies any draining through the dressings. He said he did a good job keepingthem clean and dry this week. He denies nausea, vomiting, fevers, chills. Objective Data Objective Data Vital Signs: Vital Signs Temp Pulse Resp BP O2 Del Method 97 F L 85 16 140/69 H Room Air 04/05/23 14:32 04/05/23 14:32 04/05/23 14:32 04/05/23 14:32 04/05/23 14:32 Oxygen Delivery Method Room Air Weight: 200 lb Charges/Coding Procedures Integumentary 111xxx-113xx: 48908 Charlee subq tissue 20 sq cm/< (total area of debridement was 60.75 sqcm) Physical Exam Const alert, oriented x3, no apparent distress and average body habitus General Appearance: cooperative HEENT normocephalic, head/scalp atraumatic, hearing grossly normal bilaterally, external ears normal and external nose normal Eyes EOMs intact bilaterally General Eye: normal appearance of both eyes Neck General: normal visual inspection and trachea midline Resp normal respiratory effort, no retractions and no use of accessory muscles Effort and Inspection: able to speak in complete sentences; Negative for labored, grunting, stridor or audible wheezes Cardio regular rate and regular rhythm Extremity Extremity Narrative: left DP and PT pulses with multiphasic signals on Doppler Significant improvement in his bilateral lower extremity edema. Skin Wounds: wounds noted Wound Narrative: Large superficial ulceration to the left beasley with significant improvement in appearance with much less maceration at the edges. Still with a moderate amountof slough. Ulceration to the left lateral foot also with significant improvement and this week appearing very dry with significant adherent dried drainage and dry flaky skin. Ulceration to the dorsum of the left foot is significantly reduced in size and improved in appearance, much less macerated. No longer extends into the interdigital spaces, this portion has healed. No focal or extending erythema, no fluctuance, excessive warmth. Neuro oriented x3, CN's II-XII intact bilaterally and moves all extremities Psych mental status grossly normal Attitude: calm and engaged Activity / Motor Behavior: appropriate eye contact Speech: normal speech Mood & Affect: euthymic mood Debridement Note Debridement Note Wound debrided: left beasley cluster Laterality: Left Type of Debridement: Excisional debridement Anesthesia Used: 4% Lidocaine Solution Depth: Down to and including healthy tissue Percentage of wound debrided: 100 Instrument Used: 5mm curette Tissue Removed: slough, devitalized tissue Severity: Limited To Skin Breakdown Amount of bleeding with debridement: Mild Bleeding Controlled with: Pressure Patient tolerated procedure: Patient tolerated procedure well Post-Debridement Measurements and Additional Note: Post-Debridement Measurements/Treatment RA - Nurse 1 - General Ulcer Assessment Start: 04/05/23 14:32 Freq: Status: Active Protocol: DORA Activity Type Activity Date Activity User E-sign Co-sign Detail Recorded Client Recorded Date Recorded By Document 04/05/23 14:32 [facility] [employer] 04/05/23 14:50 [facility] 04/05/23 14:32 WC - Today's Visit Information Type of service Follow-up Visit (Physician/HOSTLER HELPER ) Arrival Mode Ambulatory,Cane Transfer Assistance None Accompanied by MOM IN [facility] Patient Identification Verified (Name & Yes ) Patient Requires Transmission-Based No Precautions Vital Signs Temperature (97.8 F-99.1 F) 97 F L Temperature Source Temporal Pulse Rate (60-100) 85 Pulse Location Monitor Respiratory Rate (12-18) 16 Respiratory rate source Observation Oxygen Delivery Method Room Air Blood Pressure (90/60-120/80) 140/69 H Blood Pressure Mean (mm Hg) 92 Source Monitor Position Sitting Blood Pressure Location Left Arm History Since Last Visit- (Skip if this is Patient's initial visit) Have you changed medications since your No last visit? Any new allergies or adverse reactions No Had a fall/change in ADL's that may No increase risk of falls Signs or symptoms of abuse and/or No neglect since last visit Have you been in the hospital since your No last visit? Has dressing in place as prescribed Yes Has compression in place as prescribed Yes Has offloadiing in place as prescribed N/A Experienced any changes in pain level or No management Left Footwear Regular Shoe Right Footwear Regular Shoe Pain Scale: 0-10 Numeric Is Patient Pain Free? Yes - Nurse 1 - General Ulcer Measurement Start: 04/05/23 14:32 Freq: Status: Active Protocol: Activity Type Activity Date Activity User E-sign Co-sign Detail Recorded Client Recorded Date Recorded By Document 04/05/23 14:32 [facility] [employer] 04/05/23 14:50 [facility] 04/05/23 14:32 Wound Center Nurse 1 #17- 1ST/2ND INTERDIGITAL SPACE L FOOT -Combined with other wound No -Current Size (cm) - Length 0.1 -Current Size (cm) - Width 0.1 -Current Size (cm) - Depth 0.1 -Total Square Cm 0.01 -Epithelialization Large 67-100% -Exudate Amt None Present -Texture (Brandi-wound Skin Appearance) Assessed -Moisture (Brandi-wound Skin Appearance) Assessed,Dry/ Scaly -Color (Brandi-wound Skin Appearance) Assessed -Temperature (Brandi-wound Skin No Abnormality Appearance) (Pt Warm) -Tenderness on Palpation (Brandi-wound No Skin Appearance) -Ulcer Cleansing Soap and Water -Foul Odor after Cleansing No -Anesthetic Used 5% Lidocaine Gel #16- L LAT FOOT CLUSTER -Combined with other wound No -Current Size (cm) - Length 0.1 -Current Size (cm) - Width 0.1 -Current Size (cm) - Depth 0.1 -Total Square Cm 0.01 -Epithelialization Large 67-100% -Tunneling No -Undermining/Tunneling No -Circular Undermining No -Exudate Amt None Present -Texture (Brandi-wound Skin Appearance) Assessed,Callus -Moisture (Brandi-wound Skin Appearance) Assessed,Dry/ Scaly -Color (Brandi-wound Skin Appearance) Assessed -Temperature (Brandi-wound Skin No Abnormality Appearance) (Pt Warm) -Tenderness on Palpation (Brandi-wound No Skin Appearance) -Ulcer Cleansing Soap and Water -Foul Odor after Cleansing No -Anesthetic Used 5% Lidocaine Gel #15- L MED BEASLEY LE CLUSTER -Combined with other wound No -Current Size (cm) - Length 11.5 -Current Size (cm) - Width 4.6 -Current Size (cm) - Depth 0.1 -Total Square Cm 52.90 -Epithelialization Small 1-33% -Tunneling No -Undermining/Tunneling No -Circular Undermining No -Exudate Amt Medium -Exudate Type Serosanguineous -Wound Margin Distinct, Outline Attached -Granulation Amt Medium (34-66%) -Granulation Quality Red -Slough/Fibrin Yes -Necrosis Amt Medium (34-66%) -Necrotic Tissue Type Adherent Slough -Texture (Brandi-wound Skin Appearance) Assessed, Scarring -Moisture (Brandi-wound Skin Appearance) Assessed,Dry/ Scaly -Color (Brandi-wound Skin Appearance) Assessed -Temperature (Brandi-wound Skin No Abnormality Appearance) (Pt Warm) -Tenderness on Palpation (Brandi-wound No Skin Appearance) -Ulcer Cleansing Soap and Water -Foul Odor after Cleansing No -Anesthetic Used 4% Lidocaine Solution Lower Limb Edema Present Yes Right Calf (cm) 37.6 Right Ankle (cm) 25.4 Left Calf (cm) 38.5 Left Ankle (cm) 28.2 WC - Nurse 2 - General Ulcer CM Notes Start: 04/05/23 14:32 Freq: Status: Active Protocol: Activity Type Activity Date Activity User E-sign Co-sign Detail Recorded Client Recorded Date Recorded By Document 04/05/23 16:28 PL [id number] 04/05/23 16:30 PL 04/05/23 16:28 Wound Center Nurse 2 #17- 1ST/2ND INTERDIGITAL SPACE L FOOT -Procedure Performed No -Wound/Ulcer Outcome Healed- Epithelialized #16- L LAT FOOT CLUSTER -Time 14:55 -Correct Patient Yes -Correct Side, Site, Position Yes -Correct Procedure Yes -Procedure Performed Yes -Type of Procedure Debridement -Clinical Debridement Subcutaneous -Tissue Removed Subcutaneous -Post Debridement (cm) - Length 6.0 -Post Debridement (cm) - Width 1.5 -Post Debridement (cm) - Depth 0.1 -Total Square (Post) (cm) 9.00 -Area of Debridement (cm) - Length 6.0 -Area of Debridement (cm) - Width 1.5 -Total Square (Area) (cm) 9.00 -Tunneling No -Undermining/Tunneling No -Circular Undermining No -Wound/Ulcer Outcome Not Healed -Ulcer Cleansing Rinsed/ Irrigated with Saline -Foul Odor after Cleansing No -Bioengineered Tissue No -Bleeding Controlled with Pressure -Treatment Response Procedure Tolerated Well -Debridement - Subq, 1st 20sq cm No #15- L MED BEASLEY LE CLUSTER -Time 14:55 -Correct Patient Yes -Correct Side, Site, Position Yes -Correct Procedure Yes -Procedure Performed Yes -Type of Procedure Debridement -Clinical Debridement Subcutaneous -Tissue Removed Subcutaneous -Post Debridement (cm) - Length 11.5 -Post Debridement (cm) - Width 4.5 -Post Debridement (cm) - Depth 0.1 -Total Square (Post) (cm) 51.75 -Area of Debridement (cm) - Length 11.5 -Area of Debridement (cm) - Width 4.5 -Total Square (Area) (cm) 51.75 -Tunneling No -Undermining/Tunneling No -Circular Undermining No -Wound/Ulcer Outcome Not Healed -Ulcer Cleansing Rinsed/ Irrigated with Saline -Foul Odor after Cleansing No -Bioengineered Tissue No -Bleeding Controlled with Pressure -Treatment Response Procedure Tolerated Well -Debridement - Subq, 1st 20sq cm Yes -Debridement, SubQ, ea addt'l 20sq cm 4 or part thereof Pain Scale: 0-10 Numeric Is Patient Pain Free? Yes WC - Nurse 3 - General Ulcer D/C NN Start: 04/05/23 14:32 Freq: Status: Active Protocol: Activity Type Activity Date Activity User E-sign Co-sign Detail Recorded Client Recorded Date Recorded By Document 04/05/23 15:24 [facility] Desktop 04/05/23 15:27 [facility] 04/05/23 15:24 Wound Care Center Nurse 3 #17- 1ST/2ND INTERDIGITAL SPACE L FOOT -Ulcer Cleansing Rinsed/ Irrigated with Saline -Foul Odor after Cleansing No -Primary Dressing Applied Fibracol Plus 4x4 -Other Dressing DRSG PER KW FEED ELEVATOR WORKER -Primary Dressing Covered/Secured with Dry Gauze & Roll Gauze, Secured with Tape -Other Covering ABD -Fibracol Plus 4x4 1 #16- L LAT FOOT CLUSTER -Ulcer Cleansing Rinsed/ Irrigated with Saline -Foul Odor after Cleansing No -Primary Dressing Applied NonAdherent Contact Layer -Other Dressing DRSG PER KW FEED ELEVATOR WORKER -Primary Dressing Covered/Secured with Dry Gauze & Roll Gauze, Secured with Tape #15- L MED BEASLEY LE CLUSTER -Ulcer Cleansing Rinsed/ Irrigated with Saline -Foul Odor after Cleansing No -Primary Dressing Applied Fibracol Plus 4x4 -Other Dressing DRSG PER KW FEED ELEVATOR WORKER -Primary Dressing Covered/Secured with Dry Gauze & Roll Gauze, Secured with Tape -Fibracol Plus 4x4 0 BLE -Multi-Layered Wrap Application Multi-Layer Comp - Bilat ($ ) -Other APPLIED PER KW FEED ELEVATOR WORKER Treatment Response Procedure Tolerated Well Pain Scale: 0-10 Numeric Is Patient Pain Free? Yes - Visit Discharge Discharge Condition Stable Ambulatory Status Ambulatory,Cane Transportation Private Auto Other [facility] Additional Wound Wound debrided: Left lateral foot Laterality: Left Type of Debridement: Excisional debridement Anesthesia Used: 4% Lidocaine Solution Depth: Down to and including healthy tissue Percentage of wound debrided: 100 Instrument Used: 5mm curette Tissue Removed: slough, devitalized tissue Severity: Limited To Skin Breakdown Bleeding Controlled with: Pressure Patient tolerated procedure: Patient tolerated procedure well Additional Wound Wound debrided: left dorsal foot Laterality: Left Type of Debridement: Excisional debridement Anesthesia Used: 4% Lidocaine Solution Depth: Down to and including healthy tissue Percentage of wound debrided: 100 Instrument Used: 5mm curette Tissue Removed: slough, devitalized tissue Severity: Limited To Skin Breakdown Amount of bleeding with debridement: Mild Bleeding Controlled with: Pressure Patient tolerated procedure: Patient tolerated procedure well Assessment/Plan Assessment/Plan (1) Ulcer of left medial lower extremity: CODE(S): L97.829 - Non-pressure chronic ulcer of other part of left lower leg with unspecified severity (2) Ulcer of left foot: CODE(S): L97.529 - Non-pressure chronic ulcer of other part of left foot with unspecified severity (3) Skin ulcer of left foot including toes: CODE(S): L97.529 - Non-pressure chronic ulcer of other part of left foot with unspecified severity PLAN: Plan For any left lateral foot wound, will apply Adaptic to retained more moisture inthis area. Otherwise we will apply Fibracol to all open areas. He is instructedto keep these dressings clean and dry at all times. Patient did well with 3M wraps this week, will continue these for compression. Will continue to apply superabsorber between the layers for moisture management. No apparent signs or symptoms of infection on exam today. He is encouraged to continue to elevate his legs at all times of rest, ideally at or above the level of the heart. Avoid prolonged idle sitting or standing. Regular walking regimen is encouraged. He is strongly advised to stop smoking and vaping to both support current wound healing and for his overall health. He will return early next week for wrap changes and return to see me on . 04/06/23 1005 <Electronically signed by Kaye LOFTON> Cosigner Signature (if applicable): CC: ~ Signed [facility] Work Phone: [phone] Miscellaneous Notes* Telephone Encounter - Ashley Whitt LPN - 06/29/2021 7:34 PM EDT visit faxed to [facility] at this time. Ashley Whitt LPN * Telephone Encounter - Stephie Waters - 06/29/2021 1:24 PM EDT Assisted Living is calling requesting a copy of [facility] visit notes be faxed to them at [phone] documented in [address] [facility]22 NoteHNO ID: [id number] Author: Gaetano He APRN.HOSTLER HELPER Service: ? Author Type: Nurse Practitioner Type: Progress Notes Filed: 06/28/2021 11:31 AM Note Text: Subjective HPI HPI Tony Ariza is a 61 year old male who presents today for CC of wound on right foot. This started weeks ago. Has tried nothing for relief. Has been seen by medical provider at [facility], no treatment rendered. Has been told needs to go to Wound Clinic. Patient asking for another opinion but unwilling to travel out of [place]. This wound has not been seen in wound clinic. Hx of pvd with recent ultrasound. Patient reports has been told in past that some form of amputation was recommended. Denies numbness/tingling of bilat lower extremity. Denies diabetes. .Patient presents with: Pain (foot): right foot wound x 1 week PAST MEDICAL HISTORY Diagnosis Date - Abnormal US (ultrasound) of abdomen - COPD (chronic obstructive pulmonary disease) (HCC) - Diarrhea - GERD (gastroesophageal reflux disease) - Inguinal hernia, right - Lower extremity edema - Nonspecific elevation of levels of transaminase or lactic acid dehydrogenase (LDH) - Obesity (BMI 30.0-34.9) - Onychomycosis - Paranoid schizophrenia, chronic condition (HCC) Seeing Dr. Negron - Tobacco use disorder - Vomiting alone PAST SURGICAL HISTORY Procedure Laterality Date - EGD TRANSORAL BIOPSY SINGLE/MULTIPLE 06/25/09 - HERNIA REPAIR HX 2012 bilateral inguinal - LAPAROSCOPY SURG CHOLECYSTECTOMY 1999 Cholecystectomy, lap - PAST SURGICAL HISTORY OF right knee surgery - RPR 1ST INGUN HRNA AGE 7 YRS/> REDUCIBLE Hernia repair, inguinal ALLERGIES Codeine, Ziprasidone, Haldol [Haloperidol Lactate], and Lactate MEDICATIONS fluticasone (FLONASE ALLERGY RELIEF) 50 mcg/actuation nasal spray Use 1 [place] in each nostril once daily. nystatin (MYCOSTATIN) powder Apply to affected area four times daily. docusate sodium (DOK) 100 mg capsule Take 100 mg by mouth twice daily. polyethylene glycol 3350 (MIRALAX ORAL) Take by mouth. nicotine (NICODERM) 7 mg/24 hr Apply 1 Patch as directed every 24 hours. acetaminophen (PHARBETOL) 500 mg tablet Take 500 mg by mouth every 8 hours as needed. MULTIVITAMIN ORAL Take by mouth. fluPHENAZine (PROLIXIN) 1 mg tablet Take 1 mg by mouth once daily. ammonium lactate (LAC-HYDRIN) 12 % lotion Apply to affected area as needed. ergocalciferol 50,000 unit capsule (VITAMIN D2, DRISDOL) Take 50,000 Units by mouth one time a week. cholecalciferol (VITAMIN D-3) 2,000 unit tablet Take 2,000 Units by mouth once daily. Cholestyramine-Aspartame (CHOLESTYRAMINE LIGHT) 4 gram powder Take by mouth three times daily with meals. om 3/E/linol/ala/oleic/gla/lip (OMEGA 3-6-9 ORAL) Take by mouth. montelukast (SINGULAIR) 10 mg tablet Take 10 mg by mouth daily at bedtime. simvastatin (ZOCOR) 20 mg tablet Take 20 mg by mouth daily at bedtime. Lactobacillus acidophilus (ACIDOPHILUS ORAL) Take by mouth. albuterol HFA (VENTOLIN HFA) 90 mcg/actuation inhaler Inhale 2 Puffs as instructed every 4 hours as needed for Wheezing/Shortness of Breath. omeprazole (PRILOSEC) 20 mg capsule TAKE 1 CAPSULE TWICE A DAY spironolactone (ALDACTONE) 25 mg tablet TAKE 1 TABLET BY MOUTH ONCE DAILY. Compression Knee Highs KNEE HIGH COMPRESSION STOCKINGS 20-30 MM to be worn daily. DX: EDEMA melatonin 1 mg tab Take 1 tablet by mouth daily at bedtime. OLANZapine (ZYPREXA) 10 mg tablet Take 1 tablet by mouth twice daily. 20 mg at night and 10 mg in the morning lithium 300 mg ORAL capsule Take 2 capsules at bedtime. fluphenazine deconoate 25 mg/mL INJECTION injection inject 1ml IM every 2 weeks divalproex sodium(DEPAKOTE ER 500 MG 24 HR TAB) two tablets at 8 am and 2 tablets at bedtime BENZTROPINE 1 MG TAB one po q am doxycycline monohydrate 100 mg tablet Take 1 tablet by mouth twice daily for 10 days. triamcinolone acetonide (KENALOG) 0.1 % cream Apply 1 application to affected area once daily. to legs FAMILY HISTORY Problem Relation Age of Onset - Alcohol/Drug Father alcoholism - Diabetes Mother diet controlled - Alcohol/Drug Mother - Arthritis Sister - Alcohol/Drug Sister - Diabetes Maternal Grandfather - Heart Paternal Grandfather Social History Tobacco Use - Smoking status: Current Every Day Smoker Packs/day: 2.00 Years: 35.00 Pack years: 70.00 Types: Cigarettes - Smokeless tobacco: Never Used Substance Use Topics - Alcohol use: Yes Alcohol/week: 35.0 standard drinks Types: 14 Cans of Beer (12oz) per week Comment: 2 beers per day - Drug use: No ROS Objective Blood pressure 128/62, pulse 88, temperature 36.8 ?C (98.3 ?F), resp. rate 18, weight 93 kg (205 lb), SpO2 96 %. Physical Exam Constitutional: General: He is not in acute distress. Appearance: He is not toxic-appearing or diaphoretic. HENT: Head: Normocephalic and atraumatic. Cardiovascular: Pulses: Dorsalis pedis pulses (more content not included)...[facility] 06-28-2021 History of Present illness Narrative* Gaetano He APRN.[facility] - 06/28/2021 11:24 AM EDT Images from the original note were not included. Subjective HPI HPI Tony Ariza is a 61 year old male who presents today for CC of wound on right foot. This started weeks ago. Has tried nothing for relief. Has been seen by medical provider at [facility], no treatment rendered. Has been told needs to go to Wound Clinic. Patient asking for another opinion but unwilling to travel out of [place]. This wound has not been seen in wound clinic. Hx of pvd with recent ultrasound. Patient reports has been told in past that some form of amputation was recommended. Denies numbness/tingling of bilat lower extremity. Denies diabetes. .Patient presents with: Pain (foot): right foot wound x 1 week PAST MEDICAL HISTORY Diagnosis Date Abnormal US (ultrasound) of abdomen COPD (chronic obstructive pulmonary disease) (HCC) Diarrhea GERD (gastroesophageal reflux disease) Inguinal hernia, right Lower extremity edema Nonspecific elevation of levels of transaminase or lactic acid dehydrogenase (LDH) Obesity (BMI 30.0-34.9) Onychomycosis Paranoid schizophrenia, chronic condition (HCC) Seeing Dr. Negron Tobacco use disorder Vomiting alone PAST SURGICAL HISTORY Procedure Laterality Date EGD TRANSORAL BIOPSY SINGLE/MULTIPLE 06/25/09 HERNIA REPAIR HX 2012 bilateral inguinal LAPAROSCOPY SURG CHOLECYSTECTOMY 1999 Cholecystectomy, lap PAST SURGICAL HISTORY OF right knee surgery RPR 1ST INGUN HRNA AGE 7 YRS/> REDUCIBLE Hernia repair, inguinal ALLERGIES Codeine, Ziprasidone, Haldol [Haloperidol Lactate], and Lactate MEDICATIONS fluticasone (FLONASE ALLERGY RELIEF) 50 mcg/actuation nasal spray Use 1 [place] in each nostril once daily. nystatin (MYCOSTATIN) powder Apply to affected area four times daily. docusate sodium (DOK) 100 mg capsule Take 100 mg by mouth twice daily. polyethylene glycol 3350 (MIRALAX ORAL) Take by mouth. nicotine (NICODERM) 7 mg/24 hr Apply 1 Patch as directed every 24 hours. acetaminophen (PHARBETOL) 500 mg tablet Take 500 mg by mouth every 8 hours as needed. MULTIVITAMIN ORAL Take by mouth. fluPHENAZine (PROLIXIN) 1 mg tablet Take 1 mg by mouth once daily. ammonium lactate (LAC-HYDRIN) 12 % lotion Apply to affected area as needed. ergocalciferol 50,000 unit capsule (VITAMIN D2, DRISDOL) Take 50,000 Units by mouth one time a week. cholecalciferol (VITAMIN D-3) 2,000 unit tablet Take 2,000 Units by mouth once daily. Cholestyramine-Aspartame (CHOLESTYRAMINE LIGHT) 4 gram powder Take by mouth three times daily with meals. om 3/E/linol/ala/oleic/gla/lip (OMEGA 3-6-9 ORAL) Take by mouth. montelukast (SINGULAIR) 10 mg tablet Take 10 mg by mouth daily at bedtime. simvastatin (ZOCOR) 20 mg tablet Take 20 mg by mouth daily at bedtime. Lactobacillus acidophilus (ACIDOPHILUS ORAL) Take by mouth. albuterol HFA (VENTOLIN HFA) 90 mcg/actuation inhaler Inhale 2 Puffs as instructed every 4 hours asneeded for Wheezing/Shortness of Breath. omeprazole (PRILOSEC) 20 mg capsule TAKE 1 CAPSULE TWICE A DAY spironolactone (ALDACTONE) 25 mg tablet TAKE 1 TABLET BY MOUTH ONCE DAILY. Compression Knee Highs KNEE HIGH COMPRESSION STOCKINGS 20-30 MM to be worn daily. DX: EDEMA melatonin 1 mg tab Take 1 tablet by mouth daily at bedtime. OLANZapine (ZYPREXA) 10 mg tablet Take 1 tablet by mouth twice daily. 20 mg at night and 10 mg in the morning lithium 300 mg ORAL capsule Take 2 capsules at bedtime. fluphenazine deconoate 25 mg/mL INJECTION injection inject 1ml IM every 2 weeks divalproex sodium(DEPAKOTE ER 500 MG 24 HR TAB) two tablets at 8 am and 2 tablets at bedtime BENZTROPINE 1 MG TAB one po q am doxycycline monohydrate 100 mg tablet Take 1 tablet by mouth twice daily for 10 days. triamcinolone acetonide (KENALOG) 0.1 % cream Apply 1 application to affected area once daily. to legs FAMILY HISTORY Problem Relation Age of Onset Alcohol/Drug Father alcoholism Diabetes Mother diet controlled Alcohol/Drug Mother Arthritis Sister Alcohol/Drug Sister Diabetes Maternal Grandfather Heart Paternal Grandfather Social History Tobacco Use Smoking status: Current Every Day Smoker Packs/day: 2.00 Years: 35.00 Pack years: 70.00 Types: Cigarettes Smokeless tobacco: Never Used Substance Use Topics Alcohol use: Yes Alcohol/week: 35.0 standard drinks Types: 14 Cans of Beer (12oz) per week Comment: 2 beers per day Drug use: No ROS Objective Blood pressure 128/62, pulse 88, temperature 36.8 C (98.3 F), resp. rate 18, weight 93 kg (205 lb),SpO2 96 %. Physical Exam Constitutional: General: He is not in acute distress. Appearance: He is not toxic-appearing or diaphoretic. HENT: Head: Normocephalic and atraumatic. Cardiovascular: Pulses: Dorsalis pedis pulses are 0 on the right side and 0 on the left side. Posterior tibial pulses are 0 on the right side and 0 on the left side. Pulmonary: Effort: Pulmonary effort is normal. No accessory muscle usage or respiratory distress. Musculoskeletal: Feet: Neurological: Mental Status: He is alert and oriented to person, place, and time. ASSESSMENT/PLAN: 1. Wound of right foot - ICD9: 892.0, ICD10: S91.301A Chronic would. Patient declined us making appointment with wound care, he states he will make the appointment. I advised f/u with vascular. -offered wound and/or vascular referral, reports will not go out of town for appointment. -severe/worsening s/s go to ER. - DOXYCYCLINE MONOHYDRATE 100 MG TABLET Agrees to plan Gaetano He APRN.CNP documented in this encounterMer[facility]09-10-2021 NotePatient Outreach (NETNAV) TONY ARIZA ([id number]) 1960 M Date Time Provider Department 11/12/20 NOHEMI LYNN (PSS) NETNAV During your visit today, we recorded the following information about you: Nohemi Lynn [facility] 11/12/2020 10:38 AM Signed POPULATION HEALTH NAVIGATION OUTREACH Action/ Colonoscopy-unable to reach pt sent myc Contact made with patient or family member? NO Pt identified by name and : NO Outreach Outcome/Action Unable to reach patient: Phone number not valid / voicemail full [place] message sent Reason for Outreach Care Gap or Scheduling/Wellness visits Payer: Payor: [facility] MEDICARE / Plan: [facility] MEDICARE / Product Type: Medicare / Care Gap Reviewed:: Colorectal Cancer Screening Reminder: Reminder note to check Health Maintenance for items below Health Maintenance items due: COVID-19 VACCINE(1) Never done SPIROMETRY Never done HIV SCREENING Never done SHINGRIX VACCINE(1 of 2) Never done DEPRESSION SCREENING due on 11/01/2017 ANNUAL PCP TEAM CHRONIC DISEASE VISIT due on 05/08/2018 COLORECTAL CANCER SCREENING due on 05/11/2018 DIABETES SCREEN due on 06/16/2019 INFLUENZA(1) due on 11/03/2020 Advanced Directives Completed: Have you ever planned for future healthcare decisions with a power of insurance defense attorney, living will, or advance directives? Yes. Have you shared those records with your doctor? No Referrals: N/A Message Sent to Practice: NO Navigation Signature: Nohemi Lynn [facility] November 12, 2020 10:36 AM Allergies As of Date: 11/12/2020 Noted Allergy Reaction CODEINE 02/14/2005 5 - Intolerance ZIPRASIDONE 02/14/2005 5 - Intolerance HALDOL (HALOPERIDOL LACTATE) 02/14/2005 5 - Intolerance Comments: severe muscle contractions LACTATE 01/15/2013 16 - Unknown Date Reviewed: 12/24/2018 Reviewed by: Marcela Hurst Ma - Fully Assessed Reason for Visit: Population Health Navigation Outreach [3910] Cmt: DDI colorectal cancer screenig Prescriptions as of 11/12/2020 - fluticasone (FLONASE ALLERGY RELIEF) 50 mcg/actuation nasal spray Use 1 [place] in each nostril once daily. - nystatin (MYCOSTATIN) powder Apply to affected area four times daily. - docusate sodium (DOK) 100 mg capsule Take 100 mg by mouth twice daily. - polyethylene glycol 3350 (MIRALAX ORAL) Take by mouth. - nicotine (NICODERM) 7 mg/24 hr Apply 1 Patch as directed every 24 hours. - acetaminophen (PHARBETOL) 500 mg tablet Take 500 mg by mouth every 8 hours as needed. - MULTIVITAMIN ORAL Take by mouth. - fluPHENAZine (PROLIXIN) 1 mg tablet Take 1 mg by mouth once daily. - ammonium lactate (LAC-HYDRIN) 12 % lotion Apply to affected area as needed. - ergocalciferol 50,000 unit capsule (VITAMIN D2, DRISDOL) Take 50,000 Units by mouth one time a week. - cholecalciferol (VITAMIN D-3) 2,000 unit tablet Take 2,000 Units by mouth once daily. - Cholestyramine-Aspartame (CHOLESTYRAMINE LIGHT) 4 gram powder Take by mouth three times daily with meals. - om 3/E/linol/ala/oleic/gla/lip (OMEGA 3-6-9 ORAL) Take by mouth. - montelukast (SINGULAIR) 10 mg tablet Take 10 mg by mouth daily at bedtime. - simvastatin (ZOCOR) 20 mg tablet Take 20 mg by mouth daily at bedtime. - Lactobacillus acidophilus (ACIDOPHILUS ORAL) Take by mouth. - albuterol HFA (VENTOLIN HFA) 90 mcg/actuation inhaler Inhale 2 Puffs as instructed every 4 hours as needed for Wheezing/Shortness of Breath. - omeprazole (PRILOSEC) 20 mg capsule TAKE 1 CAPSULE TWICE A DAY - spironolactone (ALDACTONE) 25 mg tablet TAKE 1 TABLET BY MOUTH ONCE DAILY. - Compression Knee Highs KNEE HIGH COMPRESSION STOCKINGS 20-30 MM to be worn daily. DX: EDEMA - melatonin 1 mg tab Take 1 tablet by mouth daily at bedtime. - triamcinolone acetonide (KENALOG) 0.1 % cream Apply 1 application to affected area once daily. to legs - OLANZapine (ZYPREXA) 10 mg tablet Take 1 tablet by mouth twice daily. 20 mg at night and 10 mg in the morning - lithium 300 mg ORAL capsule Take 2 capsules at bedtime. - fluphenazine deconoate 25 mg/mL INJECTION injection inject 1ml IM every 2 weeks - divalproex sodium(DEPAKOTE ER 500 MG 24 HR TAB) two tablets at 8 am and 2 tablets at bedtime - BENZTROPINE 1 MG TAB one po q am Problem List As Of Date 11/12/2020 Noted Resolved TOBACCO USE DISORDER [F17.200] PARANOID SCHIZO-CHRONIC [F20.0] Diarrhea [R19.7] 07/26/2011 Vomiting alone [R11.10] 06/25/2009 07/26/2011 Nonsp Abn Find-Body NEC [R93.89] 06/25/2009 Esophagitis [K20.90] 07/02/2009 COPD (chronic obstructive pulmonary disease) [J*12/27/2009 GERD (gastroesophageal reflux disease) [K21.9] 12/27/2009 Costochondritis [M94.0] 03/03/2010 Inguinal hernia right unilateral 03/03/2010 Nonspecific elevation of levels of transaminase* Abnormal US (ultrasound) of abdomen [R93.5] Onychomycosis [B35.1] 09/30/2015 Pes planus of (more content not included)...[facility]09-10-2021 NoteHNO ID: [id number] Author: Nohemi Waters Service: ? Author Type: ? Type: Progress Notes Filed: 11/12/2020 10:38 AM Note Text: POPULATION HEALTH NAVIGATION OUTREACH Action/FYI Colonoscopy-unable to reach pt sent myc Contact made with patient or family member? NO Pt identified by name and : NO Outreach Outcome/Action Unable to reach patient: Phone number not valid / voicemail full MyChart message sent Reason for Outreach Care Gap or Scheduling/Wellness visits Payer: Payor: [facility] MEDICARE / Plan: FILI [facility] MEDICARE / Product Type: Medicare / Care Gap Reviewed:: Colorectal Cancer Screening Reminder: Reminder note to check Health Maintenance for items below Health Maintenance items due: COVID-19 VACCINE(1) Never done SPIROMETRY Never done HIV SCREENING Never done SHINGRIX VACCINE(1 of 2) Never done DEPRESSION SCREENING due on 11/01/2017 ANNUAL PCP TEAM CHRONIC DISEASE VISIT due on 05/08/2018 COLORECTAL CANCER SCREENING due on 05/11/2018 DIABETES SCREEN due on 06/16/2019 INFLUENZA(1) due on 11/03/2020 Advanced Directives Completed: Have you ever planned for future healthcare decisions with a power of insurance defense attorney, living will, or advance directives? Yes. Have you shared those records with your doctor? No Referrals: N/A Message Sent to Practice: NO Navigation Signature: Nohemi Lynn [facility] November 12, 2020 10:36 [facility]04-23-2010 History of Past illness Narrative* Problem Noted Date Resolved Date Vomiting alone 06/25/2009 07/26/2011 Diarrhea 07/26/2011 documented as of this encounter (statuses as of 06/28/2021) [facility]04-23-2010 History of Past illness Narrative* Problem Noted Date Resolved Date Vomiting alone 06/25/2009 07/26/2011 Diarrhea 07/26/2011 documented as of this encounter (statuses as of 06/30/2021) [facility] Wound of right foot- Primary documented in this encounter 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 Tobacco abuse chronic Venous insufficiency (chronic) (peripheral) chronic Ulcer of right foot with fat layer exposed resolved [facility] Work Phone: Evaluation note* Diagnosis Onset Date Resolution Status Bilateral edema of lower extremity acute Nonhealing nonsurgical wound limited to breakdown of skin acute Bipolar disorder chronic Obesity (BMI 30.0-34.9) 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 Tobacco abuse chronic Venous insufficiency (chronic) (peripheral) chronic Ulcer of right foot with fat layer exposed resolved Bilateral edema of lower extremity acute Nonhealing nonsurgical wound limited to breakdown of skin acute Bipolar disorder chronic Obesity (BMI 30.0-34.9) 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 Tobacco abuse chronic Venous insufficiency (chronic) (peripheral) chronic Maceration of skin resolved Ulcer of right foot with fat layer exposed resolved [facility] Work Phone: Evaluation note* Diagnosis Onset Date Resolution Status Bilateral edema of lower extremity acute Nonhealing nonsurgical wound limited to breakdown of skin acute Bipolar disorder chronic Obesity (BMI 30.0-34.9) 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 Tobacco abuse chronic Venous insufficiency (chronic) (peripheral) chronic Ulcer of right foot with fat layer exposed resolved Bilateral edema of lower extremity acute Nonhealing nonsurgical wound limited to breakdown of skin acute Bipolar disorder chronic Obesity (BMI 30.0-34.9) 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 Tobacco abuse chronic Venous insufficiency (chronic) (peripheral) chronic Maceration of skin resolved Ulcer of right foot with fat layer exposed resolved Bilateral edema of lower extremity acute Nonhealing nonsurgical wound limited to breakdown of skin acute Bipolar disorder chronic Obesity (BMI 30.0-34.9) 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 Tobacco abuse chronic Venous insufficiency (chronic) (peripheral) chronic Maceration of skin resolved Ulcer of right foot with fat layer exposed resolved [facility] Work Phone: Evaluation note* Diagnosis Onset Date Resolution Status Bilateral edema of lower extremity acute Nonhealing nonsurgical wound limited to breakdown of skin acute Bipolar disorder chronic Obesity (BMI 30.0-34.9) 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 Tobacco abuse chronic Venous insufficiency (chronic) (peripheral) chronic Ulcer of right foot with fat layer exposed resolved Bilateral edema of lower extremity acute Nonhealing nonsurgical wound limited to breakdown of skin acute Bipolar disorder chronic Obesity (BMI 30.0-34.9) 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 Tobacco abuse chronic Venous insufficiency (chronic) (peripheral) chronic Maceration of skin resolved Ulcer of right foot with fat layer exposed resolved Bilateral edema of lower extremity acute Nonhealing nonsurgical wound limited to breakdown of skin acute Bipolar disorder chronic 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 (BMI 30.0-34.9) 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 Tobacco abuse chronic Venous insufficiency (chronic) (peripheral) chronic Maceration of skin resolved Ulcer of right foot with fat layer exposed resolved Cellulitis of foot acute Peripheral vascular disease, unspecified acute Ulcer of right foot with fat layer exposed resolved Cellulitis of foot acute Peripheral vascular disease, unspecified acute Ulcer of right foot with fat layer exposed resolved [facility] Work Phone: Evaluation note* Diagnosis Onset Date Resolution Status Skin ulcer of left foot including toes acute Ulcer of left foot acute Ulcer of left medial lower extremity acute Skin ulcer of left foot including toes acute Ulcer of left foot acute Ulcer of left medial lower extremity acute [facility] Work Phone: Evaluation note* Diagnosis Onset Date Resolution Status Admit Date Left foot pain acute December 172024 9:11am Lymphedema acute December 17, 2024 9:11am Venous insufficiency (chroni c) (peripheral) chronic December 17 9:11am [facility] Work Phone: Progress note Author Kaye Alarcon [facility] Note Date/Time December 17, 2024 1 0:04am [facility] [address] [place] [address] OFFICE VISIT Date of Service: 12/17/24 MR#: [id number] Acct: [id number] Name: TONY ARIZA Rep #: [id number] : [id number] Provider: ROLLY Harrison Age/Sex: 64/M Location: [facility] [place] Status: Signed Intake Vital Signs 06/01/24 11:49 12/17/24 09:27 Height 5 ft 8 in Weight: 219 lb BP 123/71 H Blood Pressure Location Lt brachial Position Sitting Respiration 16 Pulse 65 Pulse Source Monitor Temp 97.8 F Temp Source Temporal Pulse Oximetry (%) 92 Oxygen Delivery Method room air Intake Visit Reasons: Increased Pain, Swelling, Redness BLE Is patient in pain?: Yes Allergies codeine Adverse Reaction (Verified 12/17/24 09:29) Upset Stomach haloperidol (From Haldol) Adverse Reaction (Verified 12/17/24 09:29) Abd cramps/diarrhea haloperidol lactate (From Haldol) Adverse Reaction (Verified 12/17/24 09:29) Abd cramps/diarrhea ziprasidone Adverse Reaction (Verified 12/17/24 09:29) Unknown Medications ?Medication ?Instructions ?Recorded ?Confirmed ?Type omeprazole 20 mg capsule,delayed 20 mg PO BID 02/18/15 12/17/24 History release fluphenazine decanoate 25 mg/mL 25 mg IM Q14D PARANOID 07/29/16 12/17/24 History injection solution SCHIZOPHRENIA montelukast 10 mg tablet 10 mg PO DAILY 05/02/1812/03 History simvastatin 20 mg tablet (Zocor) 20 mg PO QHS 05/02/18 12/17/24 History multivitamin (Daily Multi-Vitamin 1 tab PO DAILY repla cement 12/09/23 12/17/24 History tablet) acetaminophen 325 mg tablet 650 mg PO Q4H PRN fever or pain 05/23/24 12/17/24 History acetaminophen 650 mg rectal 650 mg AZ Q4H PRN pain 12/17/24 History suppository aluminum-mag hydroxide-simethicone 30 ml PO Q4H PRN in digestion 05/23/24 12/17/24 History 400 mg-400 mg-40 mg/5 mL oral susp (Mintox Maximum Strength) bisacodyl 10 mg rectal suppository 10 mg AZ DAILY PRN CONSTIPATION 05/23/24 12/17/24 History cholecalciferol (vitamin D3) 50 50 mcg PO QHS SUPPLEME NT 05/23/24 12/17/24 History mcg (2,000 unit) tablet (D3 DOTS) sodium phosphates 19 gram-7 118 ml AZ BID PRN constipa tion 05/23/24 05/23/24 History gram/118 mL enema (Fleet Enema) trazodone 50 mg tablet 50 mg PO QHS sleep 05/23/24 05/23/24 History hydrochlorothiazide 25 mg tablet 25 mg PO DAILY 30 day s #0 tabs 06/04/24 Rx lithium carbonate 300 mg capsule 300 mg PO QHS 30 days #0 caps 06/04/24 12/17/24 Rx olanzapine 10 mg tablet 10 mg PO BID 30 days #0 tabs 06/04/24 12/17/24 Rx albuterol sulfate 90 mcg/actuation inhalation 12/17/24 12/17/24 History aerosol inhaler aspirin 81 mg tablet 81 mg PO QDAY 12/17/2412/17 History divalproex 250 mg tablet,delayed 250 mg PO BID 5 12/17/24 History release finasteride 5 mg tablet 5 mg PO QDAY 12/17/24 History lithium carbonate 300 mg tablet 300 mg PO BID 12/17/24 12/17/24 History Have you fallen in the past year?: No PFSH Medical History (Updated 12/17/24 @ 13:33 by ROLLY Harrison) (HFpEF) heart failure with preserved ejection fraction Chronic venous stasis dermatitis of both lower extremities Hypercarbia Aspiration pneumonia Hypoxemia GERD (gastroesophageal reflux disease) Sepsis Tobacco abuse Schizophrenia COPD exacerbation Bipolar disorder Surgical History S/P right knee arthroscopy S/P laparoscopic cholecystectomy History of esophagogastroduodenoscopy (EGD) S/P bilateral inguinal hernia repair Family History Mother Diabetes Social History (Updated 12/17/24 @ 09:27 by Jeanine Villegas) Smoking Status: Heavy Smoker (>10/day) Tobacco: How many years used: 40 HPI HPI HPI: TONY ARIZA, is a 64 M who presents to the office today as referred from [facility] for evaluation of increased lower extremity redness, pain and swelling per referral papers. He had a venous doppler at the facility in 10/2024 which was negative for DVT. Today, he complains only of L foot pain. He reports that his swelling is actually better right now than it has been in a while. He reports noRLE pain and no pain in his L calf or above. He reports stable, chronic discoloration of the bilateral lower extremities. He describes pain primarily located on the top of his L foot which is dull and aching in nature, it is present most of the time. He does not note any worsening of the pain with activity, actually sometimes it feels better to walk. He reports no injury preceding this pain. He reports he was seen by a curriculum assistant principal several weeks ago and received a cortisone injection into the foot but did not notice much improvement. He does have a history of chronic venous insufficiency with chronic edema and has had weeping/wounds in the past. Currently, no wounds or weeping. He typically has worn compression stockings but [facility] so has not been wearing them recently. He would like to start wearing them again. He does also note that he has persistently bumpy skin on his bilateral toes. ROS General General: Yes fatigue and weakness; No weight change, appetite, colon cancer or breast cancer HEENT HEENT: No difficulty swallowing, eye injury, eye surgery, swollen glands or hoarseness Endo Endocrine: No thyroid disease, diabetes mellitus, thyroid cancer, Hair loss, heat intolerance or cold intolerance Skin Skin: No rash or changing moles Musc Musculoskeletal: No back problems, arthritis, rheumatoid arthritis, gout or joint pain Cardio Cardiovascular: No murmur, pacemaker, heart disease, atrial fibrillation, high blood pressure, heart attack, heart stent, palpitations, shortness of breath with exertion or chest pain Psych Psychiatric: No depression, anxiety or hearing voices Resp Respiratory: No shortness of breath, Yes sleep apnea, No cough, No COPD, No asthma, No emphysema and No wheezing Gastro Gastrointestinal: No abdominal pain, No nausea or vomiting, No diarrhea, No constipation, No blood in stool, No acid reflux, No hemorrhoids, No ulcers, No gallbladder problem and No black,tarry stools Dayday Hematologic: No blood thinners, No blood disorders, No bleeding, No anemia and No blood clots Neuro Neurologic: No system reviewed and no additional complaints, except as documented, No as per HPI, No abnormal gait, No abnormal hearing, No abnormal movements, No abnormal speech, No behavioral changes, Yes burning sensations, Noconfusion, No convulsions, Yes disequilibrium, No dizziness, No localized weakness, No frequent falls, No headache(s), No lack of coordination, No loss ofvision, No memory loss, No numbness, No other visual disturbances, Yes radicularpain, No restless legs, No sensory deficit, No syncope, No tingling, No tremor(s), Yes weakness and No other Exam Const General: cooperative, comfortable and no acute distress Orientation: alert, awake and oriented x3 HENMT Head: normocephalic and atraumatic Ears: hearing grossly normal bilaterally and external ears normal Nose: external nose normal Eyes General: appearance normal, both eyes and all related structures Neck Neck: normal visual inspection Resp Effort & Inspection: normal respiratory effort, able to speak in complete sentences, no grunting, not labored, no respiratory distress and no retractions Cardio Rate: regular rate Skin Wounds: no wounds Other: 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 Significant hemosiderin staining and lipodermatosclerosis to the bilateral lowerlegs Extremities Pulses: Absent: Right Dorsalis Pedis Pulse (triphasic doppler signal), Left Dorsalis Pedis Pulse (triphasic doppler signal), Right Posterior Tibial Pulse (triphasic doppler signal) and Left Posterior Tibial Pulse (triphasic doppler signal) Veins: Bilateral: Varicose Veins, Bilateral: Hemosiderin and Bilateral: Lipodermatosclerosis Additional Details: Lower extremity edema with circumference measurements: L ankle: 25 cm L calf: 45 cm R ankle: 27 cm R calf: 46 cm Leg length: 39 cm Psych Appearance: disheveled Mental Status: mental status grossly normal Coding Level of Care Code Off vis,new,level 3 Diagnoses Lymphedema I89.0 Venous insufficiency (chronic) (peripheral) I87.2 Left foot pain M79.672 Assessment and Plan Assessment and Plan (1) Lymphedema: Status: Acute (2) Venous insufficiency (chronic) (peripheral): Status: Chronic (3) Left foot pain: Status: Acute Plan He does have chronic venous insufficiency and lymphedema; however, it does not seem he is having acute symptoms from either at present and I am not sure that either are the source for his L dorsal foot pain. He would benefit from updated compression stockings to reinitiate daily use of compression; I will submit an order through [employer] to see if insurance will cover this. He may benefit from lymphedema pumps but is not interested in pursuing this right now. I also continue to encourage leg elevation at all times of rest and routine activity astolerated. Plan for return to the office in 4 months to reassess, sooner as needed. Clinical Quality Measures Falls Risk Screening/Assistive Devices Have you fallen in the past year?: No 12/17/24 1338 <Electronically signed by Kaye LOFTON> Date _ Kaye LOFTON 12/17/24 3013<Electronically signed by Mark Goodwin MD> Cosigner Signature: Date (if applicable) Mark Goodwin MD CC: ~ 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 No May 23, 2024 11:39am Advance Directive Response Recorded Date/ Time Living Will No May 23, 2024 5:25pm Do you have a Healthcare Power of Firebrick Layer? No May 23, 2024 5:25pm Chief Complaint and Reason for Visit Chief Complaint BLE PVD wound Reason for Visit Bilateral edema of l ower extremity Nonhealing nonsurgical wound limited to breakdown of skin Bipolar disorder Obesity (BMI 30.0-34.9) Tobacco abuse Venous insufficiency (chronic) (peripheral) Ulcer of right foot with fat layer exposed Chief Complaint wound wound Reason for Visit Bilateral edema of l ower extremity Nonhealing nonsurgical wound limited to breakdown of skin Bipolar disorder Obesity (BMI 30.0-34.9) Tobacco abuse Venous insufficiency (chronic) (peripheral) Ulcer of right foot with fat layer exposed Bilateral edema of lower extremity Nonhealing nonsurgical wound limited to breakdown of skin Bipolar disorder Obesity (BMI 30.0-34.9) Tobacco abuse Venous insufficiency (chronic) (peripheral) Maceration of skin Ulcer of right foot with fat layer exposed Chief Complaint wound wound wound wound Reason for Visit Bilateral edema of l ower extremity Nonhealing nonsurgical wound limited to breakdown of skin Bipolar disorder Obesity (BMI 30.0-34.9) Tobacco abuse Venous insufficiency (chronic) (peripheral) Ulcer of right foot with fat layer exposed Bilateral edema of lower extremity Nonhealing nonsurgical wound limited to breakdown of skin Bipolar disorder Obesity (BMI 30.0-34.9) Tobacco abuse Venous insufficiency (chronic) (peripheral) Maceration of skin Ulcer of right foot with fat layer exposed Bilateral edema of lower extremity Nonhealing nonsurgical wound limited to breakdown of skin Bipolar disorder Obesity (BMI 30.0-34.9) Tobacco abuse Venous insufficiency (chronic) (peripheral) Maceration of skin Ulcer of right foot with fat layer exposed Chief Complaint wound wound wound wound wound wound wound wound Reason for Visit Bilateral edema of l ower extremity Nonhealing nonsurgical wound limited to breakdown of skin Bipolar disorder Obesity (BMI 30.0-34.9) Tobacco abuse Venous insufficiency (chronic) (peripheral) Ulcer of right foot with fat layer exposed Bilateral edema of lower extremity Nonhealing nonsurgical wound limited to breakdown of skin Bipolar disorder Obesity (BMI 30.0-34.9) Tobacco abuse Venous insufficiency (chronic) (peripheral) Maceration of skin Ulcer of right foot with fat layer exposed Bilateral edema of lower extremity Nonhealing nonsurgical wound limited to breakdown of skin Bipolar disorder Obesity (BMI 30.0-34.9) Tobacco abuse Venous insufficiency (chronic) (peripheral) Maceration of skin Ulcer of right foot with fat layer exposed Cellulitis of foot Peripheral vascular disease, unspecified Ulcer of right foot with fat layer exposed Cellulitis of foot Peripheral vascular disease, unspecified Ulcer of right foot with fat layer exposed Chief Complaint wound wound wound wound wound wound Reason for Visit Skin ulcer of left f oot including toes Ulcer of left foot Ulcer of left medial lower extremity Skin ulcer of left foot including toes Ulcer of left foot Ulcer of left medial lower extremity Chief Complaint Admit Date LONGTERM LAB WORK January 28 4 5:00am LONGTERM LAB WORK February 11 5:00am LONGTERM LAB WORK February 25 5:00am LONGTERM LAB WORK March 11, 2024 5:05am LONGTERM LAB WORK March 25, 2024 5:00am LONGTERM LAB WORK April 08, 2024 5:00am LONGTERM LAB WORK April 21 4:00am LONGTERM LAB WORK April 22 4:00am LONGTERM LAB WORK May 06, 2024 5: 00am ACUTE RESPIRATORY FAILURE May 23 2:32pm Reason for Visit Admit Date Acute respiratory failure with hypoxia a nd hypercapnia May 23, 2024 2:32pm Chronic venous stasis dermatitis of both lower extremities May 23, 2024 2:32pm Chief Complaint Admit Date LONGTERM LAB WORK February 11 5:00am LONGTERM LAB WORK February 25 5:00am LONGTERM LAB WORK March 11, 2024 5:05am LONGTERM LAB WORK March 25, 2024 5:00am LONGTERM LAB WORK April 08, 2024 5:00am LONGTERM LAB WORK April 21 4:00am LONGTERM LAB WORK April 22 4:00am LONGTERM LAB WORK May 06, 2024 5: 00am ACUTE RESPIRATORY FAILURE May 23 2:32pm ACUTE RESPIRATORY FAILURE May 24 7:24am ACUTE RESPIRATORY FAILURE May 25 11:13am ACUTE RESPIRATORY FAILURE May 26 7:11am ACUTE RESPIRATORY FAILURE May 27 6:56am ACUTE RESPIRATORY FAILURE May 28 7:56am ACUTE RESPIRATORY FAILURE May 28 8:10am ACUTE RESPIRATORY FAILURE May 29 7:00am ACUTE RESPIRATORY FAILURE May 29 8:36am ACUTE RESPIRATORY FAILURE May 30 6:54am ACUTE RESPIRATORY FAILURE May 30 9:48am ACUTE RESPIRATORY FAILURE May 31 7:43am ACUTE RESPIRATORY FAILURE June 01 7:56am ACUTE RESPIRATORY FAILURE June 02 12:13pm ACUTE RESPIRATORY FAILURE June 03 11:41am Reason for Visit Admit Date (HFpEF) heart failure with preserved eje ction fraction May 23, 2024 2:32pm Acute respiratory failure with hypoxia a nd hypercapnia May 23, 2024 2:32pm NILESH (acute kidney injury) May 23 2:32pm Encephalopathy acute May 23, 2024 2: 32pm Hypernatremia May 23, 2024 2:3 2pm Nephrogenic diabetes insipidus May 2:32pm Chronic venous stasis dermatitis of both lower extremities May 23, 2024 2:32pm COPD with acute exacerbation May 23, 2024 2:32pm Metabolic encephalopathy May 23 2:32pm Chief Complaint Admit Date LONGTERM LAB WORK February 11 5:00am LONGTERM LAB WORK February 25 5:00am LONGTERM LAB WORK March 11, 2024 5:05am LONGTERM LAB WORK March 25, 2024 5:00am LONGTERM LAB WORK April 08, 2024 5:00am LONGTERM LAB WORK April 21 4:00am LONGTERM LAB WORK April 22 4:00am LONGTERM LAB WORK May 06, 2024 5: 00am ACUTE RESPIRATORY FAILURE May 23 2:32pm ACUTE RESPIRATORY FAILURE May 24 7:24am ACUTE RESPIRATORY FAILURE May 25 11:13am ACUTE RESPIRATORY FAILURE May 26 7:11am ACUTE RESPIRATORY FAILURE May 27 6:56am ACUTE RESPIRATORY FAILURE May 28 7:56am ACUTE RESPIRATORY FAILURE May 28 8:10am ACUTE RESPIRATORY FAILURE May 29 7:00am ACUTE RESPIRATORY FAILURE May 29 8:36am ACUTE RESPIRATORY FAILURE May 30 6:54am ACUTE RESPIRATORY FAILURE May 30 9:48am ACUTE RESPIRATORY FAILURE May 31 7:43am ACUTE RESPIRATORY FAILURE June 01 7:56am ACUTE RESPIRATORY FAILURE June 02 12:13pm ACUTE RESPIRATORY FAILURE June 03 11:41am ACUTE RESPIRATORY FAILURE June 04 11:39am Chief Complaint Admit Date LONGTERM LAB WORK April 21 4:00am LONGTERM LAB WORK April 22 4:00am LONGTERM LAB WORK May 06, 2024 5: 00am ACUTE RESPIRATORY FAILURE May 23 2:32pm ACUTE RESPIRATORY FAILURE May 24 7:24am ACUTE RESPIRATORY FAILURE May 25 11:13am ACUTE RESPIRATORY FAILURE May 26 7:11am ACUTE RESPIRATORY FAILURE May 27 6:56am ACUTE RESPIRATORY FAILURE May 28 7:56am ACUTE RESPIRATORY FAILURE May 28 8:10am ACUTE RESPIRATORY FAILURE May 29 7:00am ACUTE RESPIRATORY FAILURE May 29 8:36am ACUTE RESPIRATORY FAILURE May 30 6:54am ACUTE RESPIRATORY FAILURE May 30 9:48am ACUTE RESPIRATORY FAILURE May 31 7:43am ACUTE RESPIRATORY FAILURE June 01 7:56am ACUTE RESPIRATORY FAILURE June 02 12:13pm ACUTE RESPIRATORY FAILURE June 03 11:41am ACUTE RESPIRATORY FAILURE June 04 11:39am LABWORK June 06, 2024 6:00 am LABWORK June 08, 2024 11:3 0pm LABWORK June 11, 2024 5:00 am LABWORK July 09, 2024 7:52am LONGTERM LAB WORK July 23, 2024 4:0 0am LONGTERM LAB WORK July 30, 2024 5:0 0am Reason for Visit Admit Date Nephrogenic diabetes insipidus May 2:32pm Acute respiratory failure with hypoxia a nd hypercapnia May 23, 2024 2:32pm NILESH (acute kidney injury) May 23 2:32pm COPD with acute exacerbation May 23, 2024 2:32pm Encephalopathy acute May 23, 2024 2: 32pm Hypernatremia May 23, 2024 2:3 2pm Metabolic encephalopathy May 23 2:32pm (HFpEF) heart failure with preserved eje ction fraction May 23, 2024 2:32pm Chronic venous stasis dermatitis of both lower extremities May 23, 2024 2:32pm Chief Complaint Admit Date LONGTERM LAB WORK October 02, 2024 5: 00am Increased Pain, Swelling, Redness BLE Oc tober 2024 9:11am Reason for Visit Admit Date Left foot pain December 17, 2024 9 :11am Lymphedema December 17, 2024 9 :11am Venous insufficiency (chronic) (peripher al) December 17, 2024 9:11am Additional Source Comments (unrecognized sect ion and content) No Status Records FoundNo Status Records FoundNo Status Records Found INFORMATION SOURCE (unrecogn ized section and content) DATE CREATED AUTHOR 08/22/2017 [facility] DATE CREATED AUTHOR AUTHOR'S ORGANIZ ATION 06/30/2021 [facility] DATE CREATED AUTHOR AUTHOR'S ORGANIZ ATION 01/03/2025 [facility] Source Comments (unrecognize d section and content) In the event this informatio n is protected by the Federal Confidentiality of Alcohol and Drug Abuse Patient Records regulations: The Federal rules restrict any use of the information to criminally investigate or prosecute any alcohol or drug abuse patient[facility] the event this information is protected by the Federal Confidentiality of Alcohol and Drug Abuse Patient Records regulations: The Federal rules restrict any use of the information to criminally investigate or prosecute any alcohol or drug abuse patient[facility] Reason for Visit (unrecogniz ed section and content) Reason Comments Pain (foot) right foot wound x 1 week Reason Comments Release Of Medical Records Care Teams (unrecognized sec tion and content) Team Status: Active Member Role Status Dates Ingris Chu LOGGING TRACTOR OPERATOR, LOGGING TRACTOR OPERATOR-C Primary Care Provider Act gladys Team Status: Active Member Role Status Dates Ingris Chu LOGGING TRACTOR OPERATOR, LOGGING TRACTOR OPERATOR-C Primary Care Provider Act gladys Start: April 21, 2024 Dr. Aldair BEACH MD Attending Provider Active Start: April 21, 2024 Dr. Aldair BEACH MD Referring Provider Active Start: April 21, 2024 Team Status: Active Member Role Status Dates Ingris Chu LOGGING TRACTOR OPERATOR, LOGGING TRACTOR OPERATOR-C Primary Care Provider Act gladys Start: April 22, 2024 Dr. Dinorah BEACH MD Attending Provider Active Start: April 22, 2024 Dr. Dinorah BEACH MD Referring Provider Active Start: April 22, 2024 Team Status: Inactive Member Role Status Dates Ingris Chu LOGGING TRACTOR OPERATOR, LOGGING TRACTOR OPERATOR-C Primary Care Provider Act gladys Start: May 06, 2024 End: May 06, 2024 Dr. Dinorah BEACH MD Attending Provider Active Start: May 06, 2024 End: May 06, 2024 Team Status: Inactive Member Role Status Dates Ingris Chu LOGGING TRACTOR OPERATOR, LOGGING TRACTOR OPERATOR-C Primary Care Provider Act gladys Start: May 23, 2024 End: June 04, 2024 Dr. Bret Nunes MD Emergency Provider Active Start: May 23, 2024 End: June 04, 2024 Dr. Robson George DO Admit Provider Active Start: May 23, 2024 End: June 04, 2024 Dr. Robson George DO Attending Provider Active Start: May 23, 2024 End: June 04, 2024 Dr. Robson George DO Other Provider Active Start: May 23, 2024 End: June 04, 2024 Dr. David Ruvalcaba MD Other Provider Active Sta rt: May 23, 2024 End: June 04, 2024 Dr. Romeo Gallardo MD Other Provider Active Start: May 23, 2024 End: June 04, 2024 Dr. Geena Domingo MD Other Provider Active Start: May 23, 2024 End: June 04, 2024 Dr. Mark Gonzalez DO Other Provider Active Star t: May 23, 2024 End: June 04, 2024 Team Status: Active Member Role Status Dates Ingris Chu LOGGING TRACTOR OPERATOR, LOGGING TRACTOR OPERATOR-C Primary Care Provider Act gladys Start: May 24, 2024 Dr. Bret Nunes MD Emergency Provider Active Start: May 24, 2024 Dr. Robson George DO Admit Provider Active Start: May 24, 2024 Dr. Robson George DO Other Provider Active Start: May 24, 2024 Dr. David Ruvalcaba MD Attending Provider Active Start: May 24, 2024 Dr. David Ruvalcaba MD Other Provider Active Sta rt: May 24, 2024 Dr. Jl French MD Other Provider Active Start: May 24, 2024 Dr. Shadi Lucero MD Other Provider Active Start: May 24, 2024 Dr. Giles Medina MD Other Provider Active Star t: May 24, 2024 Dr. Obed Garcia , Other Provider Active Start : May 24, 2024 Dr. Marques Mcmahon MD Other Provider Active Sta rt: May 24, 2024 Dr. Jesús Rouse MD Other Provider Active St art: May 24, 2024 Dr. Juan Pablo Adan MD Other Provider Active S tart: May 24, 2024 Dr. Karol Rios MD Other Provider Active Start: May 24, 2024 Dr. Aly Duong MD Other Provider Active Start : May 24, 2024 Dr. Ivan Mcgrath MD Other Provider Active Start: May 24, 2024 Dr. Dominic Bear MD Other Provider Active Start : May 24, 2024 Dr. Mirna Viera MD Other Provider Active Star t: May 24, 2024 Dr. Erickson Phelps MD Other Provider Active Sta rt: May 24, 2024 Dr. Melanie Jaramillo MD Other Provider Active Sta rt: May 24, 2024 Dr. Mohinder Timmons MD Other Provider Active Star t: May 24, 2024 Dr. Hussein Cardenas MD Other Provider Active St art: May 24, 2024 Dr. Hollis Anderson MD Other Provider Active Star t: May 24, 2024 Dr. Anders Allred DO Other Provider Active St art: May 24, 2024 Dr. Bronwyn Traore MD Other Provider Active Start: May 24, 2024 Dr. Pedro Luis Briceño MD Other Provider Active St art: May 24, 2024 Dr. Isaac Pan , Other Provider Active Start: May 24, 2024 Dr. Vinayak Sunshine MD Other Provider Active Star t: May 24, 2024 Dr. Ezekiel Orr MD Other Provider Active Sta rt: May 24, 2024 Team Status: Active Member Role Status Dates Ingris Chu LOGGING TRACTOR OPERATOR, LOGGING TRACTOR OPERATOR-C Primary Care Provider Act gladys Start: May 24, 2024 Dr. Brain Salcedo MD Attending Provider Active S tart: May 24, 2024 Team Status: Active Member Role Status Dates Ingris Chu LOGGING TRACTOR OPERATOR, LOGGING TRACTOR OPERATOR-C Primary Care Provider Act gladys Start: May 25, 2024 Dr. Bret Nunes MD Emergency Provider Active Start: May 25, 2024 Dr. Robson George , Admit Provider Active Start: May 25, 2024 Dr. Robson George DO Other Provider Active Start: May 25, 2024 Dr. David Ruvalcaba MD Attending Provider Active Start: May 25, 2024 Dr. David Ruvalcaba MD Other Provider Active Sta rt: May 25, 2024 Dr. Jl French MD Other Provider Active Start: May 25, 2024 Dr. Shadi Lucero MD Other Provider Active Start: May 25, 2024 Dr. Giles Medina MD Other Provider Active Star t: May 25, 2024 Dr. Obed Garcia , Other Provider Active Start : May 25, 2024 Dr. Marques Mcmahon MD Other Provider Active Sta rt: May 25, 2024 Dr. Jesús Rouse MD Other Provider Active St art: May 25, 2024 Dr. Juan Pablo Adan MD Other Provider Active S tart: May 25, 2024 Dr. Karol Rios MD Other Provider Active Start: May 25, 2024 Dr. Aly Duong MD Other Provider Active Start : May 25, 2024 Dr. Ivan Mcgrath MD Other Provider Active Start: May 25, 2024 Dr. Dominic Bear MD Other Provider Active Start : May 25, 2024 Dr. Mirna Viera MD Other Provider Active Star t: May 25, 2024 Dr. Erickson Phelps MD Other Provider Active Sta rt: May 25, 2024 Dr. Melanie Jaramillo MD Other Provider Active Sta rt: May 25, 2024 Dr. Mohinder Timmons MD Other Provider Active Star t: May 25, 2024 Dr. Hussein Cardenas MD Other Provider Active St art: May 25, 2024 Dr. Hollis Anderson MD Other Provider Active Star t: May 25, 2024 Dr. Anders Allred , Other Provider Active St art: May 25, 2024 Dr. Bronwyn Traore MD Other Provider Active Start: May 25, 2024 Dr. Pedro Luis Briceño MD Other Provider Active St art: May 25, 2024 Dr. Isaac Pan DO Other Provider Active Start: May 25, 2024 Dr. Vinayak Sunshine MD Other Provider Active Star t: May 25, 2024 Dr. Ezekiel Orr MD Other Provider Active Sta rt: May 25, 2024 Dr. Romeo Gallardo MD Other Provider Active Start: May 25, 2024 Dr. Gisela Mckeon MD Other Provider Active Start: May 25, 2024 Dalia Payne MD Other Provider Active Start : May 25, 2024 Safia Hernandez MD Other Provider Active Start : May 25, 2024 Roman Emmanuel MD Other Provider Active Start: May 25, 2024 Elena Winn MD Other Provider Active Start: May 25, 2024 Dr. Jaleesa Allred MD Other Provider Active Start : May 25, 2024 Carrington Garrido MS Other Provider Active Start: [facility] 2024 Dr. Derek Saba MD Other Provider Active Sta rt: May 25, 2024 KEE BACON MD Other Provider Active Start: [facility] 2024 Tammie Cortez MD Other Provider Active Start: May 25, 2024 Dr. Deanne Hayden MD Other Provider Active Start: May 25, 2024 Dr. Geena Domingo MD Other Provider Active Start: May 25, 2024 Team Status: Active Member Role Status Dates Ingris Chu LOGGING TRACTOR OPERATOR, LOGGING TRACTOR OPERATOR-C Primary Care Provider Act gladys Start: May 26, 2024 Dr. Bret Nunes MD Emergency Provider Active Start: May 26, 2024 Dr. Robson George DO Admit Provider Active Start: May 26, 2024 Dr. Robson George DO Other Provider Active Start: May 26, 2024 Dr. Jl French MD Other Provider Active Start: May 26, 2024 Dr. Shadi Lucero MD Other Provider Active Start: May 26, 2024 Dr. Giles Medina MD Other Provider Active Star t: May 26, 2024 Dr. Obed Garcia DO Other Provider Active Start : May 26, 2024 Dr. Marques Mcmahon MD Other Provider Active Sta rt: May 26, 2024 Dr. Jesús Rouse MD Other Provider Active St art: May 26, 2024 Dr. Juan Pablo Adan MD Other Provider Active S tart: May 26, 2024 Dr. Karol Rios MD Other Provider Active Start: May 26, 2024 Dr. Aly Duong MD Other Provider Active Start : May 26, 2024 Dr. Ivan Mcgrath MD Other Provider Active Start: May 26, 2024 Dr. Dominic Bear MD Other Provider Active Start : May 26, 2024 Dr. Mirna Viera MD Other Provider Active Star t: May 26, 2024 Dr. Erickson Phelps MD Other Provider Active Sta rt: May 26, 2024 Dr. Melanie Jaramillo MD Other Provider Active Sta rt: May 26, 2024 Dr. Mohinder Timmons MD Other Provider Active Star t: May 26, 2024 Dr. Hussein Cardenas MD Other Provider Active St art: May 26, 2024 Dr. Hollis Anderson MD Other Provider Active Star t: May 26, 2024 Dr. Anders Allred DO Other Provider Active St art: May 26, 2024 Dr. Bronwyn Traore MD Other Provider Active Start: May 26, 2024 Dr. Pedro Luis Briceño MD Other Provider Active St art: May 26, 2024 Dr. Isaac Pan DO Other Provider Active Start: May 26, 2024 Dr. Vinayak Sunshine MD Other Provider Active Star t: May 26, 2024 Dr. Ezekiel Orr MD Other Provider Active Sta rt: May 26, 2024 Dr. Romeo Gallardo MD Other Provider Active Start: May 26, 2024 Dr. Geena Domingo MD Other Provider Active Start: May 26, 2024 Dr. Gisela Mckeon MD Other Provider Active Start: May 26, 2024 Dr. Deanne Hayden MD Other Provider Active Start: May 26, 2024 Dalia Payne MD Other Provider Active Start : May 26, 2024 Carrington Garrido MS Other Provider Active Start: [facility] 2024 Dr. Derek Saba MD Other Provider Active Sta rt: May 26, 2024 Tammie Cortez MD Other Provider Active Start: May 26, 2024 KEE BACON MD Other Provider Active Start: [facility] 2024 Safia Heranndez MD Other Provider Active Start : May 26, 2024 Dr. Jaleesa Allred MD Other Provider Active Start : May 26, 2024 Roman Emmanuel MD Other Provider Active Start: May 26, 2024 Elena Winn MD Other Provider Active Start: May 26, 2024 Benjamin Cobian MD Other Provider Active Start: [facility] 2024 Ghada Araya MD Other Provider Active Start : May 26, 2024 Dr. Kaye Zimmerman DO Other Provider Active St art: May 26, 2024 Dr. Rick Welch MD Other Provider Active Sta rt: May 26, 2024 Dr. Blanca Ramírez MD Other Provider Active Start : May 26, 2024 Dr. Juan C Dixon MD Other Provider Active Start: May 26, 2024 Dr. Alexis العراقي MD Other Provider Active Start : May 26, 2024 Dr. Murali Rodríguez MD Other Provider Active St art: May 26, 2024 Dr. Natanael Lawrence MD Other Provider Active Sta rt: May 26, 2024 Dr. Emy Lynn MD Other Provider Active Start: May 26, 2024 Dr. Tee Best MD Other Provider Active St art: May 26, 2024 Dr. Glendy Tomlin MD Other Provider Active Star t: May 26, 2024 Dr. Chris Cox MD Other Provider Active St art: May 26, 2024 Dr. Marlena Bonilla MD Other Provider Active Start: May 26, 2024 Michele Negrete MD Other Provider Active Start: May 26, 2024 Dr. Mark Gonzalez DO Attending Provider Active Start: May 26, 2024 Dr. Mark Gonzalez DO Other Provider Active Star t: May 26, 2024 Dr. David Ruvalcaba MD Other Provider Active Sta rt: May 26, 2024 Team Status: Active Member Role Status Dates Ingris Chu LOGGING TRACTOR OPERATOR, LOGGING TRACTOR OPERATOR-C Primary Care Provider Act gladys Start: May 27, 2024 Dr. Bret Nunes MD Emergency Provider Active Start: May 27, 2024 Dr. Robson George DO Admit Provider Active Start: May 27, 2024 Dr. Robson George DO Other Provider Active Start: May 27, 2024 Dr. Jl French MD Other Provider Active Start: May 27, 2024 Dr. Shadi Lucero MD Other Provider Active Start: May 27, 2024 Dr. Giles Medina MD Other Provider Active Star t: May 27, 2024 Dr. Obed Garcia , Other Provider Active Start : May 27, 2024 Dr. Marques Mcmahon MD Other Provider Active Sta rt: May 27, 2024 Dr. Jesús Rouse MD Other Provider Active St art: May 27, 2024 Dr. Juan Pablo Adan MD Other Provider Active S tart: May 27, 2024 Dr. Karol Rios MD Other Provider Active Start: May 27, 2024 Dr. Aly Duong MD Other Provider Active Start : May 27, 2024 Dr. Ivan Mcgrath MD Other Provider Active Start: May 27, 2024 Dr. Dominic Bear MD Other Provider Active Start : May 27, 2024 Dr. Mirna Viera MD Other Provider Active Star t: May 27, 2024 Dr. Erickson Phelps MD Other Provider Active Sta rt: May 27, 2024 Dr. Melanie Jaramillo MD Other Provider Active Sta rt: May 27, 2024 Dr. Mohinder Timmons MD Other Provider Active Star t: May 27, 2024 Dr. Hussein Cardenas MD Other Provider Active St art: May 27, 2024 Dr. Hollis Anderson MD Other Provider Active Star t: May 27, 2024 Dr. Anders Allred DO Other Provider Active St art: May 27, 2024 Dr. Bronwyn Traore MD Other Provider Active Start: May 27, 2024 Dr. Pedro Luis Briceño MD Other Provider Active St art: May 27, 2024 Dr. Isaac Pan DO Other Provider Active Start: May 27, 2024 Dr. Vinayak Sunshine MD Other Provider Active Star t: May 27, 2024 Dr. Ezekiel Orr MD Other Provider Active Sta rt: May 27, 2024 Dr. Romeo Gallardo MD Other Provider Active Start: May 27, 2024 Dr. Geena Domingo MD Other Provider Active Start: May 27, 2024 Dr. Gisela Mckeon MD Other Provider Active Start: May 27, 2024 Dr. Deanne Hayden MD Other Provider Active Start: May 27, 2024 Dalia Payne MD Other Provider Active Start : May 27, 2024 Carrington Garrido , Other Provider Active Start: [facility] [address]24 Dr. Derek Saba MD Other Provider Active Sta rt: May 27, 2024 Tammie Cortez MD Other Provider Active Start: May 27, 2024 KEE BACON MD Other Provider Active Start: [facility] 2024 Safia Hernandez MD Other Provider Active Start : May 27, 2024 Dr. Jaleesa Allred MD Other Provider Active Start : May 27, 2024 Roman Emmanuel MD Other Provider Active Start: May 27, 2024 Elena Winn MD Other Provider Active Start: May 27, 2024 Benjamin Cobian MD Other Provider Active Start: [facility] 2024 Ghdaa Araya MD Other Provider Active Start : May 27, 2024 Dr. Kaye Zimmerman DO Other Provider Active St art: May 27, 2024 Dr. Rick Welch MD Other Provider Active Sta rt: May 27, 2024 Dr. Blanca Ramírez MD Other Provider Active Start : May 27, 2024 Dr. Juan C Dixon MD Other Provider Active Start: May 27, 2024 Dr. Alexis العراقي MD Other Provider Active Start : May 27, 2024 Dr. Murali Rodríguez MD Other Provider Active St art: May 27, 2024 Dr. Natanael Lawrence MD Other Provider Active Sta rt: May 27, 2024 Dr. Emy Lynn MD Other Provider Active Start: May 27, 2024 Dr. Tee Best MD Other Provider Active St art: May 27, 2024 Dr. Glendy Tomlin MD Other Provider Active Star t: May 27, 2024 Dr. Chris Cox MD Other Provider Active St art: May 27, 2024 Dr. Marlean Bonilla MD Other Provider Active Start: May 27, 2024 Michele Negrete MD Other Provider Active Start: May 27, 2024 Dr. Mark Gonzalez DO Attending Provider Active Start: May 27, 2024 Dr. Mark Gonzalez DO Other Provider Active Star t: May 27, 2024 Dr. David Ruvalcaba MD Other Provider Active Sta rt: May 27, 2024 Team Status: Active Member Role Status Dates Ingris Dejesus Vlad LOGGING TRACTOR OPERATOR, LOGGING TRACTOR OPERATOR-C Primary Care Provider Act gladys Start: May 28, 2024 Dr. Bret Nunes MD Emergency Provider Active Start: May 28, 2024 Dr. Robson George , Admit Provider Active Start: May 28, 2024 Dr. Robson George DO Other Provider Active Start: May 28, 2024 Dr. Jl French MD Other Provider Active Start: May 28, 2024 Dr. Shadi Lucero MD Other Provider Active Start: May 28, 2024 Dr. Giles Medina MD Other Provider Active Star t: May 28, 2024 Dr. Obed Garcia DO Attending Provider Active S tart: May 28, 2024 Dr. Obed Garcia DO Other Provider Active Start : May 28, 2024 Dr. Marques Mcmahon MD Other Provider Active Sta rt: May 28, 2024 Dr. Jesús Rouse MD Other Provider Active St art: May 28, 2024 Dr. Juan Pablo Adan MD Other Provider Active S tart: May 28, 2024 Dr. Karol Rios MD Other Provider Active Start: May 28, 2024 Dr. Aly Duong MD Other Provider Active Start : May 28, 2024 Dr. Ivan Mcgrath MD Other Provider Active Start: May 28, 2024 Dr. Dominic Bear MD Other Provider Active Start : May 28, 2024 Dr. Mirna Viera MD Other Provider Active Star t: May 28, 2024 Dr. Erickson Phelps MD Other Provider Active Sta rt: May 28, 2024 Dr. Melanie Jaramillo MD Other Provider Active Sta rt: May 28, 2024 Dr. Mohinder Timmons MD Other Provider Active Star t: May 28, 2024 Dr. Hussein Cardenas MD Other Provider Active St art: May 28, 2024 Dr. Hollis Anderson MD Other Provider Active Star t: May 28, 2024 Dr. Anders Allred DO Other Provider Active St art: May 28, 2024 Dr. Bronwyn Traore MD Other Provider Active Start: May 28, 2024 Dr. Pedro Luis Briceño MD Other Provider Active St art: May 28, 2024 Dr. Isaac Pan DO Other Provider Active Start: May 28, 2024 Dr. Vinayak Sunshine MD Other Provider Active Star t: May 28, 2024 Dr. Ezekiel Orr MD Other Provider Active Sta rt: May 28, 2024 Dr. Romeo Gallardo MD Other Provider Active Start: May 28, 2024 Dr. Geena Domingo MD Other Provider Active Start: May 28, 2024 Dr. Gisela Mckeon MD Other Provider Active Start: May 28, 2024 Dr. Deanne Hayden MD Other Provider Active Start: May 28, 2024 Dalia Payne MD Other Provider Active Start : May 28, 2024 Carrington Garrido MS Other Provider Active Start: [facility] 2024 Dr. Derek Saba MD Other Provider Active Sta rt: May 28, 2024 Tammie Cortez MD Other Provider Active Start: May 28, 2024 KEE BACON MD Other Provider Active Start: [facility] 2024 Safia Hernandez MD Other Provider Active Start : May 28, 2024 Dr. Jaleesa Allred MD Other Provider Active Start : May 28, 2024 Roman Emmanuel MD Other Provider Active Start: May 28, 2024 Elena Winn MD Other Provider Active Start: May 28, 2024 Benjamin Cobian MD Other Provider Active Start: [facility] 2024 Ghada Araya MD Other Provider Active Start : May 28, 2024 Dr. Kaye Zimmerman DO Other Provider Active St art: May 28, 2024 Dr. Rick Welch MD Other Provider Active Sta rt: May 28, 2024 Dr. Blanca Ramírez MD Other Provider Active Start : May 28, 2024 Dr. Juan C Dixon MD Other Provider Active Start: May 28, 2024 Dr. Alexis العراقي MD Other Provider Active Start : May 28, 2024 Dr. Murali Rodríguez MD Other Provider Active St art: May 28, 2024 Dr. Natanael Lawrence MD Other Provider Active Sta rt: May 28, 2024 Dr. Emy Lynn MD Other Provider Active Start: May 28, 2024 Dr. Tee Best MD Other Provider Active St art: May 28, 2024 Dr. Glendy Tomlin MD Other Provider Active Star t: May 28, 2024 Dr. Chris Cox MD Other Provider Active St art: May 28, 2024 Dr. Marlena Bonilla MD Other Provider Active Start: May 28, 2024 Michele Negrete MD Other Provider Active Start: May 28, 2024 Dr. Mark Gonzalez DO Referring Provider Active Start: May 28, 2024 Dr. Mark Gonzalez DO Other Provider Active Star t: May 28, 2024 Dr. David Ruvalcaba MD Other Provider Active Sta rt: May 28, 2024 Team Status: Active Member Role Status Dates Ingris Chu LOGGING TRACTOR OPERATOR, LOGGING TRACTOR OPERATOR-C Primary Care Provider Act gladys Start: May 28, 2024 Dr. Bret Nunes MD Emergency Provider Active Start: May 28, 2024 Dr. Robson George DO Admit Provider Active Start: May 28, 2024 Dr. Robson George DO Other Provider Active Start: May 28, 2024 Dr. Jl French MD Other Provider Active Start: May 28, 2024 Dr. Shadi Lucero MD Other Provider Active Start: May 28, 2024 Dr. Giles Medina MD Other Provider Active Star t: May 28, 2024 Dr. Obed Garcia DO Other Provider Active Start : May 28, 2024 Dr. Marques Mcmahon MD Other Provider Active Sta rt: May 28, 2024 Dr. Jesús Rouse MD Other Provider Active St art: May 28, 2024 Dr. Juan Pablo Adan MD Other Provider Active S tart: May 28, 2024 Dr. Karol Rios MD Other Provider Active Start: May 28, 2024 Dr. Aly Duong MD Other Provider Active Start : May 28, 2024 Dr. Ivan Mcgrath MD Other Provider Active Start: May 28, 2024 Dr. Dominic Bear MD Other Provider Active Start : May 28, 2024 Dr. Mirna Viera MD Other Provider Active Star t: May 28, 2024 Dr. Erickson Phelps MD Other Provider Active Sta rt: May 28, 2024 Dr. Melanie Jaramillo MD Other Provider Active Sta rt: May 28, 2024 Dr. Mohinder Timmons MD Other Provider Active Star t: May 28, 2024 Dr. Hussein Cardenas MD Other Provider Active St art: May 28, 2024 Dr. Hollis Anderson MD Other Provider Active Star t: May 28, 2024 Dr. Anders Allred DO Other Provider Active St art: May 28, 2024 Dr. Bronwyn Traore MD Other Provider Active Start: May 28, 2024 Dr. Pedro Luis Briceño MD Other Provider Active St art: May 28, 2024 Dr. Isaac Pna DO Other Provider Active Start: May 28, 2024 Dr. Vinayak Sunshine MD Other Provider Active Star t: May 28, 2024 Dr. Ezekiel Orr MD Other Provider Active Sta rt: May 28, 2024 Dr. Romeo Gallardo MD Other Provider Active Start: May 28, 2024 Dr. Geena Domingo MD Other Provider Active Start: May 28, 2024 Dr. Gisela Mckeon MD Other Provider Active Start: May 28, 2024 Dr. Deanne Hayden MD Other Provider Active Start: May 28, 2024 Dalia Payne MD Other Provider Active Start : May 28, 2024 Carrington Garrido MS Other Provider Active Start: [facility] 2024 Dr. Derek Saba MD Other Provider Active Sta rt: May 28, 2024 Tammie Cortez MD Other Provider Active Start: May 28, 2024 KEE BACON MD Other Provider Active Start: [facility] 2024 Safia Hernandez MD Other Provider Active Start : May 28, 2024 Dr. Jaleesa Allred MD Other Provider Active Start : May 28, 2024 Roman Emmanuel MD Other Provider Active Start: May 28, 2024 Elena Winn MD Other Provider Active Start: May 28, 2024 Benjamin Cobian MD Other Provider Active Start: [facility] 2024 Ghada Araya MD Other Provider Active Start : May 28, 2024 Dr. Kaye Zimmerman , Other Provider Active St art: May 28, 2024 Dr. Rick Welch MD Other Provider Active Sta rt: May 28, 2024 Dr. Blanca Ramírez MD Other Provider Active Start : May 28, 2024 Dr. Juan C Dixon MD Other Provider Active Start: May 28, 2024 Dr. Alexis العراقي MD Other Provider Active Start : May 28, 2024 Dr. Murali Rodríguez MD Other Provider Active St art: May 28, 2024 Dr. Natanael Lawrence MD Other Provider Active Sta rt: May 28, 2024 Dr. Emy Lynn MD Other Provider Active Start: May 28, 2024 Dr. Tee Best MD Other Provider Active St art: May 28, 2024 Dr. Glendy Tomlin MD Other Provider Active Star t: May 28, 2024 Dr. Chris Cox MD Other Provider Active St art: May 28, 2024 Dr. Marlena Bonilla MD Other Provider Active Start: May 28, 2024 Michele Negrete MD Other Provider Active Start: May 28, 2024 Dr. Mark Gonzalez DO Attending Provider Active Start: May 28, 2024 Dr. Mark Gonzalez DO Other Provider Active Star t: May 28, 2024 Dr. David Ruvalcaba MD Other Provider Active Sta rt: May 28, 2024 Team Status: Active Member Role Status Dates Ingris Chu LOGGING TRACTOR OPERATOR, LOGGING TRACTOR OPERATOR-C Primary Care Provider Act gladys Start: May 29, 2024 Dr. Bret Nunes MD Emergency Provider Active Start: May 29, 2024 Dr. Robson George DO Admit Provider Active Start: May 29, 2024 Dr. Robson George DO Other Provider Active Start: May 29, 2024 Dr. Jl French MD Other Provider Active Start: May 29, 2024 Dr. Shadi Lucero MD Other Provider Active Start: May 29, 2024 Dr. Giles Medina MD Other Provider Active Star t: May 29, 2024 Dr. Obed Garcia DO Other Provider Active Start : May 29, 2024 Dr. Marques Mcmahon MD Other Provider Active Sta rt: May 29, 2024 Dr. Jesús Rouse MD Other Provider Active St art: May 29, 2024 Dr. Juan Pablo Adan MD Other Provider Active S tart: May 29, 2024 Dr. Karol Rios MD Other Provider Active Start: May 29, 2024 Dr. Aly Duong MD Other Provider Active Start : May 29, 2024 Dr. Ivan Mcgrath MD Other Provider Active Start: May 29, 2024 Dr. Dominic Bear MD Other Provider Active Start : May 29, 2024 Dr. Mirna Viera MD Other Provider Active Star t: May 29, 2024 Dr. Erickson Phelps MD Other Provider Active Sta rt: May 29, 2024 Dr. Melanie Jaramillo MD Other Provider Active Sta rt: May 29, 2024 Dr. Mohinder Timmons MD Other Provider Active Star t: May 29, 2024 Dr. Hussein Cardenas MD Other Provider Active St art: May 29, 2024 Dr. Hollis Anderson MD Other Provider Active Star t: May 29, 2024 Dr. Anders Allred DO Other Provider Active St art: May 29, 2024 Dr. Bronwyn Traore MD Other Provider Active Start: May 29, 2024 Dr. Pedro Luis Briceño MD Other Provider Active St art: May 29, 2024 Dr. Isaac Pan DO Other Provider Active Start: May 29, 2024 Dr. Vinayak Sunshine MD Other Provider Active Star t: May 29, 2024 Dr. Ezekiel Orr MD Other Provider Active Sta rt: May 29, 2024 Dr. Romeo Gallardo MD Other Provider Active Start: May 29, 2024 Dr. Geena Domingo MD Other Provider Active Start: May 29, 2024 Dr. Mark Gonzalez DO Attending Provider Active Start: May 29, 2024 Dr. Mark Gonzalez DO Other Provider Active Star t: May 29, 2024 Dr. David Ruvalcaba MD Other Provider Active Sta rt: May 29, 2024 Team Status: Active Member Role Status Dates Ingris Chu LOGGING TRACTOR OPERATOR, LOGGING TRACTOR OPERATOR-C Primary Care Provider Act gladys Start: May 29, 2024 Dr. Bret Nunes MD Emergency Provider Active Start: May 29, 2024 Dr. Robson George , DO Admit Provider Active Start: May 29, 2024 Dr. Robson George , Other Provider Active Start: May 29, 2024 Dr. Jl French MD Other Provider Active Start: May 29, 2024 Dr. Shadi Lucero MD Other Provider Active Start: May 29, 2024 Dr. Giles Medina MD Other Provider Active Star t: May 29, 2024 Dr. Obed Garcia DO Attending Provider Active S tart: May 29, 2024 Dr. Obed Garcia , Other Provider Active Start : May 29, 2024 Dr. Marques Mcmahon MD Other Provider Active Sta rt: May 29, 2024 Dr. Jesús Rouse MD Other Provider Active St art: May 29, 2024 Dr. Juan Pablo Adan MD Other Provider Active S tart: May 29, 2024 Dr. Karol Rios MD Other Provider Active Start: May 29, 2024 Dr. Aly Duong MD Other Provider Active Start : May 29, 2024 Dr. Ivan Mcgrath MD Other Provider Active Start: May 29, 2024 Dr. Dominic Bear MD Other Provider Active Start : May 29, 2024 Dr. Mirna Viera MD Other Provider Active Star t: May 29, 2024 Dr. Erickson Phelps MD Other Provider Active Sta rt: May 29, 2024 Dr. Melanie Jaramillo MD Other Provider Active Sta rt: May 29, 2024 Dr. Mohinder Timmons MD Other Provider Active Star t: May 29, 2024 Dr. Hussein Cardenas MD Other Provider Active St art: May 29, 2024 Dr. Hollis Anderson MD Other Provider Active Star t: May 29, 2024 Dr. Anders Allred DO Other Provider Active St art: May 29, 2024 Dr. Bronwyn Traore MD Other Provider Active Start: May 29, 2024 Dr. Pedro Luis Briceño MD Other Provider Active St art: May 29, 2024 Dr. Isaac Pan DO Other Provider Active Start: May 29, 2024 Dr. Vinayak Sunshine MD Other Provider Active Star t: May 29, 2024 Dr. Ezekiel Orr MD Other Provider Active Sta rt: May 29, 2024 Dr. Romeo Gallardo MD Other Provider Active Start: May 29, 2024 Dr. Geena Domingo MD Other Provider Active Start: May 29, 2024 Dr. Mark Gonzalez DO Referring Provider Active Start: May 29, 2024 Dr. Mark Gonzalez DO Other Provider Active Star t: May 29, 2024 Dr. David Ruvalcaba MD Other Provider Active Sta rt: May 29, 2024 Team Status: Active Member Role Status Dates Ingris Chu LOGGING TRACTOR OPERATOR, LOGGING TRACTOR OPERATOR-C Primary Care Provider Act gladys Start: May 30, 2024 Dr. Bret Nunes MD Emergency Provider Active Start: May 30, 2024 Dr. Robson George DO Admit Provider Active Start: May 30, 2024 Dr. Robson George DO Other Provider Active Start: May 30, 2024 Dr. Mark Gonzalez DO Attending Provider Active Start: May 30, 2024 Dr. Mark Gonzalez DO Other Provider Active Star t: May 30, 2024 Dr. David Ruvalcaba MD Other Provider Active Sta rt: May 30, 2024 Dr. Romeo Gallardo MD Other Provider Active Start: May 30, 2024 Dr. Geena Domingo MD Other Provider Active Start: May 30, 2024 Team Status: Active Member Role Status Dates Ingris Chu NP, LOGGING TRACTOR OPERATOR-C Primary Care Provider Act gladys Start: May 30, 2024 Dr. Bret Nunes MD Emergency Provider Active Start: May 30, 2024 Dr. Robson George DO Admit Provider Active Start: May 30, 2024 Dr. Robson George DO Other Provider Active Start: May 30, 2024 Dr. Mark Gonzalez DO Referring Provider Active Start: May 30, 2024 Dr. Mark Gonzalez DO Other Provider Active Star t: May 30, 2024 Dr. David Ruvalcaba MD Other Provider Active Sta rt: May 30, 2024 Dr. Romeo Gallardo MD Other Provider Active Start: May 30, 2024 Dr. Jl French MD Other Provider Active Start: May 30, 2024 Dr. Shadi Lucero MD Other Provider Active Start: May 30, 2024 Dr. Giles Medina MD Other Provider Active Star t: May 30, 2024 Dr. Obed Garcia DO Attending Provider Active S tart: May 30, 2024 Dr. Obed Garcia DO Other Provider Active Start : May 30, 2024 Dr. Marques Mcmahon MD Other Provider Active Sta rt: May 30, 2024 Dr. Jesús Rouse MD Other Provider Active St art: May 30, 2024 Dr. Juan Pablo Adan MD Other Provider Active S tart: May 30, 2024 Dr. Karol Rios MD Other Provider Active Start: May 30, 2024 Dr. Aly Duong MD Other Provider Active Start : May 30, 2024 Dr. Ivan Mcgrath MD Other Provider Active Start: May 30, 2024 Dr. Dominic Bear MD Other Provider Active Start : May 30, 2024 Dr. Mirna Viera MD Other Provider Active Star t: May 30, 2024 Dr. Erickson Phelps MD Other Provider Active Sta rt: May 30, 2024 Dr. Melanie Jaramillo MD Other Provider Active Sta rt: May 30, 2024 Dr. Mohinder Timmons MD Other Provider Active Star t: May 30, 2024 Dr. Hussein Cardenas MD Other Provider Active St art: May 30, 2024 Dr. Hollis Anderson MD Other Provider Active Star t: May 30, 2024 Dr. Anders Allred DO Other Provider Active St art: May 30, 2024 Dr. Bronwyn Traore MD Other Provider Active Start: May 30, 2024 Dr. Pedro Luis Briceño MD Other Provider Active St art: May 30, 2024 Dr. Isaac Pan DO Other Provider Active Start: May 30, 2024 Dr. Vinayak Sunshine MD Other Provider Active Star t: May 30, 2024 Dr. Ezekiel Orr MD Other Provider Active Sta rt: May 30, 2024 Dr. Geena Domingo MD Other Provider Active Start: May 30, 2024 Team Status: Active Member Role Status Dates Ingris Chu LOGGING TRACTOR OPERATOR, LOGGING TRACTOR OPERATOR-C Primary Care Provider Act gladys Start: May 31, 2024 Dr. Bret Nunes MD Emergency Provider Active Start: May 31, 2024 Dr. Robson George , Admit Provider Active Start: May 31, 2024 Dr. Robson George DO Other Provider Active Start: May 31, 2024 Dr. Mark Gonzalez DO Attending Provider Active Start: May 31, 2024 Dr. Mark Gonzalez DO Other Provider Active Star t: May 31, 2024 Dr. David Ruvalcaba MD Other Provider Active Sta rt: May 31, 2024 Dr. Romeo Gallardo MD Other Provider Active Start: May 31, 2024 Dr. Geena Domingo MD Other Provider Active Start: May 31, 2024 Team Status: Active Member Role Status Dates Ingris Chu LOGGING TRACTOR OPERATOR, LOGGING TRACTOR OPERATOR-C Primary Care Provider Act gladys Start: June 01, 2024 Dr. Bret Nunes MD Emergency Provider Active Start: June 01, 2024 Dr. Robson George DO Admit Provider Active Start: June 01, 2024 Dr. Robson George DO Other Provider Active Start: June 01, 2024 Dr. Mark Gonzalez DO Attending Provider Active Start: June 01, 2024 Dr. Mark Gonzalez DO Other Provider Active Star t: June 01, 2024 Dr. David Ruvalcaba MD Other Provider Active Sta rt: June 01, 2024 Dr. Romeo Gallardo MD Other Provider Active Start: June 01, 2024 Dr. Geena Domingo MD Other Provider Active Start: June 01, 2024 Team Status: Active Member Role Status Dates Ingris Chu LOGGING TRACTOR OPERATOR, LOGGING TRACTOR OPERATOR-C Primary Care Provider Act gladys Start: June 02, 2024 Dr. Bret Nunes MD Emergency Provider Active Start: June 02, 2024 Dr. Robson George DO Admit Provider Active Start: June 02, 2024 Dr. Robson George DO Attending Provider Active Start: June 02, 2024 Dr. Robson George DO Other Provider Active Start: June 02, 2024 Dr. David Ruvalcaba MD Other Provider Active Sta rt: June 02, 2024 Dr. Romeo Gallardo MD Other Provider Active Start: June 02, 2024 Dr. Geena Domingo MD Other Provider Active Start: June 02, 2024 Dr. Mark Gonzalez DO Other Provider Active Star t: June 02, 2024 Team Status: Active Member Role Status Dates Ingris Chu LOGGING TRACTOR OPERATOR, LOGGING TRACTOR OPERATOR-C Primary Care Provider Act gladys Start: June 03, 2024 Dr. Bret Nunes MD Emergency Provider Active Start: June 03, 2024 Dr. Robson George DO Admit Provider Active Start: June 03, 2024 Dr. Robson George DO Attending Provider Active Start: June 03, 2024 Dr. Robson George DO Other Provider Active Start: June 03, 2024 Dr. David Ruvalcaba MD Other Provider Active Sta rt: June 03, 2024 Dr. Romeo Gallardo MD Other Provider Active Start: June 03, 2024 Dr. Geena Domingo MD Other Provider Active Start: June 03, 2024 Dr. Mark Gonzalez DO Other Provider Active Star t: June 03, 2024 Team Status: Active Member Role Status Dates Ingris Chu LOGGING TRACTOR OPERATOR, LOGGING TRACTOR OPERATOR-C Primary Care Provider Act gladys Start: June 04, 2024 Dr. Bret Nunes MD Emergency Provider Active Start: June 04, 2024 Dr. Robson George DO Admit Provider Active Start: June 04, 2024 Dr. Robson George DO Attending Provider Active Start: June 04, 2024 Dr. Robson George DO Other Provider Active Start: June 04, 2024 Dr. David Ruvalcaba MD Other Provider Active Sta rt: June 04, 2024 Dr. Romeo Gallardo MD Other Provider Active Start: June 04, 2024 Dr. Geena Domingo MD Other Provider Active Start: June 04, 2024 Dr. Mark Gonzalez DO Other Provider Active Star t: June 04, 2024 Team Status: Inactive Member Role Status Dates Ingris Chu LOGGING TRACTOR OPERATOR, LOGGING TRACTOR OPERATOR-C Primary Care Provider Act gladys Start: June 06, 2024 End: June 06, 2024 Dr. Aldair BEACH MD Attending Provider Active Start: June 06, 2024 End: June 06, 2024 Team Status: Active Member Role Status Dates Ingris Chu LOGGING TRACTOR OPERATOR, LOGGING TRACTOR OPERATOR-C Primary Care Provider Act gladys Start: June 08, 2024 Dr. Aldair BEACH MD Attending Provider Active Start: June 08, 2024 Team Status: Active Member Role Status Dates Ingris Chu LOGGING TRACTOR OPERATOR, LOGGING TRACTOR OPERATOR-C Primary Care Provider Act gladys Start: June 11, 2024 Dr. Aldair BEACH MD Attending Provider Active Start: June 11, 2024 Team Status: Inactive Member Role Status Dates Ingris Chu LOGGING TRACTOR OPERATOR, LOGGING TRACTOR OPERATOR-C Primary Care Provider Act gladys Start: July 09, 2024 End: July 09, 2024 Dr. Aldair BEACH MD Attending Provider Active Start: July 09, 2024 End: July 09, 2024 Team Status: Active Member Role Status Dates Ingris Chu LOGGING TRACTOR OPERATOR, LOGGING TRACTOR OPERATOR-C Primary Care Provider Act gladys Start: July 16, 2024 Dr. Aldair BEACH MD Attending Provider Active Start: July 16, 2024 Team Status: Active Member Role Status Dates Ingris Chu LOGGING TRACTOR OPERATOR, LOGGING TRACTOR OPERATOR-C Primary Care Provider Act gladys Start: July 23, 2024 Dr. Aldair BEACH MD Attending Provider Active Start: July 23, 2024 Dr. Aldair BEACH MD Referring Provider Active Start: July 23, 2024 Team Status: Inactive Member Role Status Dates Ingris Chu LOGGING TRACTOR OPERATOR, LOGGING TRACTOR OPERATOR-C Primary Care Provider Act gladys Start: July 30, 2024 End: July 30, 2024 Dr. 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 Relationship Specialty Start Date End Date Holden Oconnor MD [address] [place], [place] [id number] PCP - General Family Practice 04/26/16 Team Status: Active Member Role Status Dates Ingris Chu LOGGING TRACTOR OPERATOR, LOGGING TRACTOR OPERATOR-C Family Provider Active Ingris Chu LOGGING TRACTOR OPERATOR, LOGGING TRACTOR OPERATOR-C Primary Care Provider Act gladys Team Status: Active Member Role Status Dates Ingris Chu LOGGING TRACTOR OPERATOR, LOGGING TRACTOR OPERATOR-C Primary Care Provider, Re ferring Provider Active ROLLY Harrison Attending Provider, Other Provider A ctive Team Status: Inactive Member Role Status Dates Ingris Chu LOGGING TRACTOR OPERATOR, LOGGING TRACTOR OPERATOR-C Primary Care Provider, Re ferring Provider Active ROLLY Harrison Attending Provider Active Team Status: Inactive Member Role Status Nigel Dejesus Vlad LOGGING TRACTOR OPERATOR, LOGGING TRACTOR OPERATOR-C Primary Care Provider Act gladys Start: January 29, 2024 End: January 29, 2024 Sang BEACH Attending Provider Active Start : January 29, 2024 End: January 29, 2024 Team Status: Inactive Member Role Status Dates Ingris Chu LOGGING TRACTOR OPERATOR, LOGGING TRACTOR OPERATOR-C Primary Care Provider Act gladys Start: February 12, 2024 End: February 12, 2024 Sang BEACH Attending Provider Active Start : February 12, 2024 End: February 12, 2024 Team Status: Inactive Member Role Status Dates Ingris Dejesus Vlad LOGGING TRACTOR OPERATOR, LOGGING TRACTOR OPERATOR-C Primary Care Provider Act gladys Start: February 26, 2024 End: February 26, 2024 Sang BEACH Attending Provider Active Start : February 26, 2024 End: February 26, 2024 Team Status: Inactive Member Role Status Dates Ingris Chu LOGGING TRACTOR OPERATOR, LOGGING TRACTOR OPERATOR-C Primary Care Provider Act gladys Start: March 11, 2024 End: March 11, 2024 Dr. Dinorah BEACH MD Attending Provider Active Start: March 11, 2024 End: March 11, 2024 Team Status: Inactive Member Role Status Nigel Dejesus Vlad LOGGING TRACTOR OPERATOR, LOGGING TRACTOR OPERATOR-C Primary Care Provider Act gladys Start: March 25, 2024 End: March 25, 2024 Dr. Dinorah BEACH MD Attending Provider Active Start: March 25, 2024 End: March 25, 2024 Team Status: Active Member Role Status Dates Ingris Deejsus Vlad LOGGING TRACTOR OPERATOR, LOGGING TRACTOR OPERATOR-C Primary Care Provider Act gladys Start: April 08, 2024 Dr. Aldair BEACH MD Attending Provider Active Start: April 08, 2024 Team Status: Active Member Role Status Dates Ingris Dejesus Vlad LOGGING TRACTOR OPERATOR, LOGGING TRACTOR OPERATOR-C Primary Care Provider Act gladys Start: May 06, 2024 Dr. Dinorah BEACH MD Attending Provider Active Start: May 06, 2024 Team Status: Active Member Role Status Dates Ingris Dejesus Vlad LOGGING TRACTOR OPERATOR, LOGGING TRACTOR OPERATOR-C Primary Care Provider Act gladys Start: May 23, 2024 Dr. Bret Nuens MD Emergency Provider Active Start: May 23, 2024 Dr. Robson George , Admit Provider Active Start: May 23, 2024 Dr. Robson George DO Attending Provider Active Start: May 23, 2024 Dr. Robson George DO Other Provider Active Start: May 23, 2024 Team Status: Active Member Role Status Dates Ingris Chu LOGGING TRACTOR OPERATOR, LOGGING TRACTOR OPERATOR-C Primary Care Provider Act gladys Start: May 23, 2024 Dr. Bret Nunes MD Emergency Provider Active Start: May 23, 2024 Dr. Robson George DO Admit Provider Active Start: May 23, 2024 Dr. Robson George DO Attending Provider Active Start: May 23, 2024 Dr. Robson George DO Other Provider Active Start: May 23, 2024 Dr. David Ruvalcaba MD Other Provider Active Sta rt: May 23, 2024 Dr. Romeo Gallardo MD Other Provider Active Start: May 23, 2024 Dr. Geena Domingo MD Other Provider Active Start: May 23, 2024 Dr. Mark Gonzalez , Other Provider Active Star t: May 23, 2024 Team Status: Active Member Role Status Dates Ingrisomar Chu LOGGING TRACTOR OPERATOR, LOGGING TRACTOR OPERATOR-C Primary Care Provider Act gladys Start: May 28, 2024 Dr. Bret Nunes MD Emergency Provider Active Start: May 28, 2024 Dr. Robson George DO Admit Provider Active Start: May 28, 2024 Dr. Robson George DO Other Provider Active Start: May 28, 2024 Dr. Jl French MD Other Provider Active Start: May 28, 2024 Dr. Shadi Lucero MD Other Provider Active Start: May 28, 2024 Dr. Giles Medina MD Other Provider Active Star t: May 28, 2024 Dr. Obed Garcia DO Attending Provider Active S tart: May 28, 2024 Dr. Obed Garcia DO Other Provider Active Start : May 28, 2024 Dr. Marques Mcmahon MD Other Provider Active Sta rt: May 28, 2024 Dr. Jesús Rouse MD Other Provider Active St art: May 28, 2024 Dr. Juan Pablo Adan MD Other Provider Active S tart: May 28, 2024 Dr. Karol Rios MD Other Provider Active Start: May 28, 2024 Dr. Aly Duong MD Other Provider Active Start : May 28, 2024 Dr. Ivan Mcgrath MD Other Provider Active Start: May 28, 2024 Dr. Dominic Bear MD Other Provider Active Start : May 28, 2024 Dr. Mirna Viera MD Other Provider Active Star t: May 28, 2024 Dr. Erickson Phelps MD Other Provider Active Sta rt: May 28, 2024 Dr. Melanie Jaramillo MD Other Provider Active Sta rt: May 28, 2024 Dr. Mohinder Timmons MD Other Provider Active Star t: May 28, 2024 Dr. Hussein Cardenas MD Other Provider Active St art: May 28, 2024 Dr. Hollis Anderson MD Other Provider Active Star t: May 28, 2024 Dr. Anders Allred DO Other Provider Active St art: May 28, 2024 Dr. Bronwyn Traore MD Other Provider Active Start: May 28, 2024 Dr. Pedro Luis Briceño MD Other Provider Active St art: May 28, 2024 Dr. Isaac Pan DO Other Provider Active Start: May 28, 2024 Dr. Vinayak Sunshine MD Other Provider Active Star t: May 28, 2024 Dr. Ezekiel Orr MD Other Provider Active Sta rt: May 28, 2024 Dr. Romeo Gallardo MD Other Provider Active Start: May 28, 2024 Dr. Geena Domingo MD Other Provider Active Start: May 28, 2024 Dr. Gisela Mckeon MD Other Provider Active Start: May 28, 2024 Dr. Deanne Hayden MD Other Provider Active Start: May 28, 2024 Dalia Payne MD Other Provider Active Start : May 28, 2024 Carrington Garrido MS Other Provider Active Start: 2024 Dr. Derek Saba MD Other Provider Active Sta rt: May 28, 2024 Tammie Cortez MD Other Provider Active Start: May 28, 2024 KEE BACON MD Other Provider Active Start: 2024 Safia eHrnandez MD Other Provider Active Start : May 28, 2024 Dr. Jaleesa Allred MD Other Provider Active Start : May 28, 2024 Roman Emmanuel MD Other Provider Active Start: May 28, 2024 Elena Winn MD Other Provider Active Start: May 28, 2024 Benjamin Cobian MD Other Provider Active Start: [facility] 2024 Ghada Araya MD Other Provider Active Start : May 28, 2024 Dr. Kaye Zimmerman DO Other Provider Active St art: May 28, 2024 Dr. Rick Welch MD Other Provider Active Sta rt: May 28, 2024 Dr. Blanca Ramírez MD Other Provider Active Start : May 28, 2024 Dr. Juan C Dixon MD Other Provider Active Start: May 28, 2024 Dr. Alexis العراقي MD Other Provider Active Start : May 28, 2024 Dr. Murali Rodríguez MD Other Provider Active St art: May 28, 2024 Dr. Natanael Lawrence MD Other Provider Active Sta rt: May 28, 2024 Dr. Emy Lynn MD Other Provider Active Start: May 28, 2024 Dr. Tee Best MD Other Provider Active St art: May 28, 2024 Dr. Glendy Tomlin MD Other Provider Active Star t: May 28, 2024 Dr. Chris Cox MD Other Provider Active St art: May 28, 2024 Dr. Marlena Bonilla MD Other Provider Active Start: May 28, 2024 Michele Negrete MD Other Provider Active Start: May 28, 2024 Dr. Mark Gonzalez DO Other Provider Active Star t: May 28, 2024 Dr. David Ruvalcaba MD Other Provider Active Sta rt: May 28, 2024 Team Status: Active Member Role Status Dates Ingris Chu LOGGING TRACTOR OPERATOR, LOGGING TRACTOR OPERATOR-C Primary Care Provider Act gladys Start: May 29, 2024 Dr. Bret Nunes MD Emergency Provider Active Start: May 29, 2024 Dr. Robson George DO Admit Provider Active Start: May 29, 2024 Dr. Robson George DO Other Provider Active Start: May 29, 2024 Dr. Jl French MD Other Provider Active Start: May 29, 2024 Dr. Shadi Lucero MD Other Provider Active Start: May 29, 2024 Dr. Giles Medina MD Other Provider Active Star t: May 29, 2024 Dr. Obed Garcia , Attending Provider Active S tart: May 29, 2024 Dr. Obed Garcia DO Other Provider Active Start : May 29, 2024 Dr. Marques Mcmahon MD Other Provider Active Sta rt: May 29, 2024 Dr. Jesús Rouse MD Other Provider Active St art: May 29, 2024 Dr. Juan Pablo Adan MD Other Provider Active S tart: May 29, 2024 Dr. Karol Rios MD Other Provider Active Start: May 29, 2024 Dr. Aly Duong MD Other Provider Active Start : May 29, 2024 Dr. Ivan Mcgrath MD Other Provider Active Start: May 29, 2024 Dr. Dominic Bear MD Other Provider Active Start : May 29, 2024 Dr. Mirna Viera MD Other Provider Active Star t: May 29, 2024 Dr. Erickson Phelps MD Other Provider Active Sta rt: May 29, 2024 Dr. Melanie Jaramillo MD Other Provider Active Sta rt: May 29, 2024 Dr. Mohinder Timmons MD Other Provider Active Star t: May 29, 2024 Dr. Hussein Cardenas MD Other Provider Active St art: May 29, 2024 Dr. Hollis Anderson MD Other Provider Active Star t: May 29, 2024 Dr. Anders Allred DO Other Provider Active St art: May 29, 2024 Dr. Bronwyn Traore MD Other Provider Active Start: May 29, 2024 Dr. Pedro Luis Briceño MD Other Provider Active St art: May 29, 2024 Dr. Isaac Pan DO Other Provider Active Start: May 29, 2024 Dr. Vinayak Sunshine MD Other Provider Active Star t: May 29, 2024 Dr. Ezekiel Orr MD Other Provider Active Sta rt: May 29, 2024 Dr. oRmeo Gallardo MD Other Provider Active Start: May 29, 2024 Dr. Geena Domingo MD Other Provider Active Start: May 29, 2024 Dr. Mark Gonzalez DO Other Provider Active Star t: May 29, 2024 Dr. David Ruvalcaba MD Other Provider Active Sta rt: May 29, 2024 Team Status: Active Member Role Status Dates Ingris Dejesus Vlad LOGGING TRACTOR OPERATOR, LOGGING TRACTOR OPERATOR-C Primary Care Provider Act gladys Start: May 30, 2024 Dr. Bret Nunes MD Emergency Provider Active Start: May 30, 2024 Dr. Robson George DO Admit Provider Active Start: May 30, 2024 Dr. Robson George DO Other Provider Active Start: May 30, 2024 Dr. Mark Gonzalez DO Other Provider Active Star t: May 30, 2024 Dr. David Ruvalcaba MD Other Provider Active Sta rt: May 30, 2024 Dr. Romeo Gallardo MD Other Provider Active Start: May 30, 2024 Dr. Jl French MD Other Provider Active Start: May 30, 2024 Dr. Shadi Lucero MD Other Provider Active Start: May 30, 2024 Dr. Giles Medina MD Other Provider Active Star t: May 30, 2024 Dr. Obed Garcia DO Attending Provider Active S tart: May 30, 2024 Dr. Obed Garcia DO Other Provider Active Start : May 30, 2024 Dr. Marques Mcmahon MD Other Provider Active Sta rt: May 30, 2024 Dr. Jesús Rouse MD Other Provider Active St art: May 30, 2024 Dr. Juan Pablo Adan MD Other Provider Active S tart: May 30, 2024 Dr. Karol Rios MD Other Provider Active Start: May 30, 2024 Dr. Aly Duong MD Other Provider Active Start : May 30, 2024 Dr. Ivan Mcgrath MD Other Provider Active Start: May 30, 2024 Dr. Dominic Bear MD Other Provider Active Start : May 30, 2024 Dr. Mirna Viera MD Other Provider Active Star t: May 30, 2024 Dr. Erickson Phelps MD Other Provider Active Sta rt: May 30, 2024 Dr. Melanie Jaramillo MD Other Provider Active Sta rt: May 30, 2024 Dr. Mohinder Timmons MD Other Provider Active Star t: May 30, 2024 Dr. Hussein Cardenas MD Other Provider Active St art: May 30, 2024 Dr. Hollis Anderson MD Other Provider Active Star t: May 30, 2024 Dr. Anders Allred DO Other Provider Active St art: May 30, 2024 Dr. Bronwyn Traore MD Other Provider Active Start: May 30, 2024 Dr. Pedro Luis Briceño MD Other Provider Active St art: May 30, 2024 Dr. Isaac Pan DO Other Provider Active Start: May 30, 2024 Dr. Vinayak Sunshine MD Other Provider Active Star t: May 30, 2024 Dr. Ezekiel Orr MD Other Provider Active Sta rt: May 30, 2024 Dr. Geena Domingo MD Other Provider Active Start: May 30, 2024 Team Status: Active Member Role/Relationship Status Dates Ingris Chu LOGGING TRACTOR OPERATOR, LOGGING TRACTOR OPERATOR-C Primary care physician Ac tive Team Status: Active Member Role/Relationship Status Dates Ingris Chu LOGGING TRACTOR OPERATOR, LOGGING TRACTOR OPERATOR-C Primary care physician Ac tive Start: October 02, 2024 Dr. Dinorah BEACH MD Attending physician Active Start: October 02, 2024 Team Status: Inactive Member Role/Relationship Status Dates Ingris Chu LOGGING TRACTOR OPERATOR, LOGGING TRACTOR OPERATOR-C Primary care physician Ac tive Start: December 17, 2024 End: December 17, 2024 ROLLY Harrison Attending physician Active Sta rt: December 17, 2024 End: December 17, 2024 Dr. Aldair Woods DO Referring Provider Active Start: December 17, 2024 End: December 17, 2024 Goals (unrecognized section and content) Goals may be documented in a n alternate sectionGoals may be documented in an alternate sectionGoals may be documented in an alternate sectionGoals may be documented in an alternate sectionGoals may be documented in an alternate sectionGoals may be documented in an alternate sectionGoals may be documented in an alternate sectionGoals may be documented in an alternate section FOR RECORDS PERTAINING TO PATIENTS WHO ARE OR HAVE BEEN ENROLLED IN A CHEMICAL DEPENDENCY/SUBSTANCEABUSE PROGRAM, SOME INFORMATION MAY BE OMITTED. This clinical summary was aggregated from multiple sources. Caution should be exercised in using it in the provision of clinical care. This summary normalizes information from multiple sources, and as a consequence, information in this document may materially change the coding, format and clinical context of patient data. In addition, data may be omitted in some cases. CLINICAL DECISIONS SHOULD BE BASED ON THE PRIMARY CLINICAL RECORDS. [facility] [employer] [facility]. provides no warranty or guarantee of the accuracy or completeness of information in this document.
[2025-02-12 09:10] LABS: Valproic Acid (Depakene) Level 20 ug/mL (50-100)
== END ==
LOC: OLS.SW 05:00
PROVIDERS: PCP Nurse Practitioner Adult Health; Visit Provider Family Medicine
DX: Z79.899 Other long term (current) drug therapy (principal)
CPT/HCPCS: 36415; 80164

== ENCOUNTER 2025-02-16 08:12 | Inpatient (IN) | payer MEDICARE, MEDICAID, SELFPAY ==
[2025-02-16] VITALS (31 sets, daily range): BP systolic 106–149; BP diastolic 53–114; PULSE 53–98; RESP 10–32; TEMP 36.3–39.1; O2SAT 4–100; BMI 34.1; BMI 34.0
--- NOTE | 2025-02-16 08:15 | RAD_ITS ---
PROCEDURE: CHEST 1 VIEW (PORTABLE) 02/16/2025 REASON FOR EXAM: DYSPNEA TECHNIQUE: Frontal view of the chest. COMPARISON: May 23, 2024. FINDINGS: Hardware: EKG electrodes are seen. Heart: Heart size is upper limits of normal. Lungs: Stable elevation of the right hemidiaphragm. Increased markings at the right lung base suggestive of either early infiltrate and/or atelectasis. Follow-up recommended. Bones: Degenerative changes are identified within the thoracic spine. RAD/Chest 1 View (Portable) IMPRESSION: Elevation of the right hemidiaphragm with the atelectasis and/or infiltrate at the right lung base. Follow-up recommended. Reading Location: [facility]
--- NOTE | 2025-02-16 08:16 | EKG12_ITS ---
Test Reason : SOB Blood Pressure : */* mmHG Vent. Rate : 99 BPM Atrial Rate : 99 BPM P-R Int : 170 ms QRS Dur : 82 ms QT Int : 354 ms P-R-T Axes : 50 -18 49 degrees QTcB Int : 454 ms Normal sinus rhythm Nonspecific ST abnormality Abnormal ECG Confirmed by LORNA CRISTINA, DEENA ([id number]), food expeditor JUAN A SPARROW ([id number]) on 02/17/2025 1:18:45 PM Referred By: CLAYTON Confirmed By: DEENA ROTHMAN MD
--- NOTE | 2025-02-16 08:17 | ED.VIS.DYS ---
HPI History of Present Illness Chief Complaint: Shortness of Breath Detail of Chief Complaint: Respiratory distress Informant: patient, EMS and SNF Narrative Narrative: Patient [facility] emergency [facility] with concern for respiratory distress. Patient found by jail staff hypoxic with O2 sat in the 30s. They put him on 4 L of O2. Were able to get him up into the 80s. Patient noted to have fever. Presents via EMS. Patient poor historian. [facility] Medical History (Updated 02/16/25 @ 09:45 by Katherine Beatty) Hypertension Dysphagia Hyperlipemia (HFpEF) heart failure with preserved ejection fraction Chronic venous stasis dermatitis of both lower extremities Aspiration pneumonia Hypercarbia Hypoxemia GERD (gastroesophageal reflux disease) Sepsis Tobacco abuse Schizophrenia COPD exacerbation Bipolar disorder Home Medications ?Medication ?Instructions ?Recorded ?Last Taken ?Type omeprazole 20 mg capsule,delayed 20 mg PO BID 02/18/15 Unknown History release fluphenazine decanoate 25 mg/mL 25 mg IM Q14D PARANOID 07/29/16 Unknown History injection solution SCHIZOPHRENIA montelukast 10 mg tablet 10 mg PO DAILY 05/02/18 Unknown History simvastatin 20 mg tablet (Zocor) 20 mg PO QHS 05/02/18 Unknown History multivitamin (Daily Multi-Vitamin 1 tab PO DAILY replacement 12/09/23 Unknown History tablet) acetaminophen 325 mg tablet 650 mg PO Q4H PRN fever or pain 05/23/24 Unknown History acetaminophen 650 mg rectal 650 mg DC Q4H PRN pain 05/23/24 Unknown History suppository aluminum-mag hydroxide-simethicone 30 ml PO Q4H PRN indigestion 05/23/24 Unknown History 400 mg-400 mg-40 mg/5 mL oral susp (Mintox Maximum Strength) bisacodyl 10 mg rectal suppository 10 mg DC DAILY PRN CONSTIPATION 05/23/24 Unknown History cholecalciferol (vitamin D3) 50 50 mcg PO QHS SUPPLEMENT 05/23/24 Unknown History mcg (2,000 unit) tablet (D3 DOTS) sodium phosphates 19 gram-7 118 ml DC BID PRN constipation 05/23/24 Unknown History gram/118 mL enema (Fleet Enema) trazodone 50 mg tablet 50 mg PO QHS sleep 05/23/24 Unknown History hydrochlorothiazide 25 mg tablet 25 mg PO DAILY 30 days #0 tabs 06/04/24 Unknown Rx lithium carbonate 300 mg capsule 300 mg PO QHS 30 days #0 caps 06/04/24 Unknown Rx olanzapine 10 mg tablet 10 mg PO BID 30 days #0 tabs 06/04/24 Unknown Rx albuterol sulfate 90 mcg/actuation 1 puff inhalation Q6H PRN 12/17/24 Unknown History aerosol inhaler shortness of breath or wheezing aspirin 81 mg tablet 81 mg PO QDAY 12/17/24 Unknown History divalproex 250 mg tablet,delayed 250 mg PO BID 12/17/24 Unknown History release finasteride 5 mg tablet 5 mg PO QDAY 12/17/24 Unknown History lithium carbonate 300 mg tablet 300 mg PO BID 12/17/24 Unknown History dextrose 40 % oral gel (Glucose 10 g PO Q15M PRN hypoglycemia 02/16/25 Unknown History Gel) glucagon HCl 1 mg solution for 1 mg IM Q20M PRN hypoglycemia 02/16/25 Unknown History injection (Glucagon (HCl) Emergency Kit) ipratropium 0.5 mg-albuterol 3 mg 3 ml continuous nebulization Q4H 02/16/25 Unknown History (2.5 mg base)/3 mL nebulization PRN shortness of breath or wheezing soln loperamide 2 mg capsule (Imodium 2 mg PO PRN 02/16/25 Unknown History A-D) magnesium hydroxide 400 mg/5 mL 30 ml PO PRN 02/16/25 Unknown History oral suspension (Dulcolax (magnesium hydroxide)) Allergy/AdvReac Type Severity Reaction Status Date / Time codeine AdvReac Upset Verified 02/16/25 08:16 Stomach haloperidol (From Haldol) AdvReac Abd Verified 02/16/25 08:16 cramps/diarrhea haloperidol lactate (From AdvReac Abd Verified 02/16/25 08:16 Haldol) cramps/diarrhea ziprasidone AdvReac Unknown Verified 02/16/25 08:16 Family History Mother Diabetes Surgical History S/P right knee arthroscopy S/P laparoscopic cholecystectomy History of esophagogastroduodenoscopy (EGD) S/P bilateral inguinal hernia repair Social History (Updated 12/17/24 @ 09:27 by Jeanine R Nelly) Smoking Status: Heavy Smoker (>10/day) Tobacco: How many years used: 40 ROS ROS ED Review of Systems ROS Unobtainable: due to mental condition EXAM Physical Exam Const Vital Signs: 02/16/25 08:17 02/16/25 08:21 02/16/25 08:22 Temperature 102.3 F H 99.4 F H Temperature Source Axillary Temporal Pulse Rate 98 98 Respiratory Rate 26 H 30 H Respiratory Effort Short of Breath Labored Respiratory Pattern Tachypnea Blood Pressure 149/64 H 132/69 H Blood Pressure Mean 92 90 Pulse Ox 4 93 Oxygen Delivery Method Nasal Cannula Bi-pap Nasal Cannula Oxygen Flow Rate (L/min) Fraction of Inspired Oxygen (FIO2) 02/16/25 08:35 02/16/25 08:35 02/16/25 09:05 Temperature Temperature Source Pulse Rate 97 95 Respiratory Rate 28 H 25 H Respiratory Effort Respiratory Pattern Blood Pressure Blood Pressure Mean Pulse Ox 99 93 Oxygen Delivery Method Nasal Cannula Oxygen Flow Rate (L/min) 4 Fraction of Inspired Oxygen (FIO2) 45 02/16/25 09:21 Temperature 99.7 F H Temperature Source Temporal Pulse Rate 95 Respiratory Rate 29 H Respiratory Effort Respiratory Pattern Blood Pressure 126/114 H Blood Pressure Mean 118 Pulse Ox 95 Oxygen Delivery Method Bi-pap Oxygen Flow Rate (L/min) Fraction of Inspired Oxygen (FIO2) Positive well nourished and well developed General Appearance ED: well developed and NAD HEENT Reports TM's clear and moist mucous membranes normocephalic and atraumatic; Negative for trauma or tenderness Tympanic Membrane ED: Yes TM's clear Eyes PERRL and EOMs intact bilaterally General Eye ED: Negative for pale conjunctiva or scleral icterus Neck no lymphadenopathy, supple and no JVD General: Negative for tenderness Chest Wall inspection of chest normal and palpation of chest normal Chest: Negative for tenderness Resp normal respiratory effort and clear to auscultation bilaterally Resp Narrative: Patient with tachypnea and diminished breath sounds bilaterally with expiratory wheezes. No accessory muscle use or retractions Effort and Inspection: Negative for respiratory distress or pain with movement Auscultation: wheezes and diminished lung sounds; Negative for rhonchi Cardio regular rate, regular rhythm, S1 normal heart sound, S2 normal heart sound and no murmurs Peripheral Pulses: pulses 2+ throughout GI normal to inspection, nondistended, normoactive bowel sounds, soft to palpation, non-tender, non-distended and no masses Back/Spine no CVA tenderness and no thoracic nor lumbar tenderness Extremity normal to inspection Extremity Narrative: +1 edema both lower extremity General Extremety ED: Yes edema General Extremity: edema Neuro oriented x3, CN's II-XII intact bilaterally, no sensory deficits noted and gait normal Sensorium / Orientation: awake, alert, oriented to person, oriented to place and oriented to time Motor Exam: strength 5/5 throughout and strength abnormal Psych mental status grossly normal Skin no rashes or lesions noted and no wounds MDM MDM MDM Narrative Medical decision making narrative: Patient presents to the emergency department with respiratory failure and hypoxemia. He has history of COPD. Patient was given DuoNeb aerosol as well as Solu-Medrol. Initially was on nasal cannula but continued to be dyspneic and was placed on BiPAP. CBC with differential obtained showed white count 7.6 with hemoglobin 13.9 and platelet count of 174. Chemistries unremarkable. BUN was 18 and creat 1.67. Lactate normal at 1.1. LFTs unremarkable. Urinalysis unremarkable. [place] level 0.84. 1 view chest x-ray obtained interpreted by myself as increased markings left lower lobe and official report from radiology pending. Blood cultures ordered and patient started on Rocephin and Zithromax IV. He was given Tylenol for his fever. Clinically improved on BiPAP. COVID flu and RSV testing pending. Will discuss case with hospitalist to evaluate patient for admission. Suspect COPD exacerbation and possibly early pneumonia Lab Data Attestation: I reviewed the patient's lab results. Labs: Laboratory Results - last 24 hr 02/16/25 02/16/25 08:30 08:57 WBC 7.6 RBC 4.04 L Hgb 13.9 Hct 45.4 MCV 112.4 H MCH 34.4 H MCHC 30.6 L RDW Std Deviation 64.6 H RDW Coeff of Babatunde 15.3 H Plt Count 174 MPV 9.3 Immature Gran % (Auto) 0.500 Neut % (Auto) 80.3 H Lymph % (Auto) 10.2 L Lamar % (Auto) 6.6 Eos % (Auto) 2.0 Baso % (Auto) 0.4 Absolute Neuts (auto) 6.1 Absolute Lymphs (auto) 0.78 L Nucleated RBC % 0 Sodium 139 Potassium 4.9 Chloride 99 Carbon Dioxide 32.9 H Anion Gap 7 BUN 18 Creatinine 1.67 H Estim Creat Clear Calc 53.06 Est GFR (MDRD) Non-Af 46 L BUN/Creatinine Ratio 10.7 Glucose 112 H Lactic Acid 1.1 Calcium 9.2 Total Bilirubin 0.40 AST 22 ALT 18 Alkaline Phosphatase 86 Troponin T High Sens 53 H D NT pro BNP II 584 Total Protein 8.2 Albumin 4.1 Globulin 4.0 Albumin/Globulin Ratio 1.0 Urine Color Yellow Urine Clarity Clear Urine pH 6.0 Ur Specific [place] 1.010 Urine Protein 15 H Urine Glucose (UA) Normal Urine Ketones Negative Urine Occult Blood Negative Urine Nitrite Negative Urine Bilirubin Negative Urine Urobilinogen Normal Ur Leukocyte Esterase Negative Urine RBC 0 SEEN Urine WBC 0 SEEN Ur Squamous Epith Cells 0 SEEN Urine Bacteria 0 SEEN Urine Mucus 0 SEEN [place] 0.84 Radiography Diagnostic Testing: Clinical Impression(s) from Imaging Studies Chest X-Ray 02/16/25 08:15 IMPRESSION: Elevation of the right hemidiaphragm with the atelectasis and/or infiltrate at the right lung base. Follow-up recommended. Reading Location: [facility] 1 view chest x-ray obtained interpreted by myself as increased lung markings left lower lobe concern for infiltrate. Radiology felt more increased markings right lower lobe which could be atelectasis versus infiltrate EKG Initial EKG: Attestation: I personally reviewed and interpreted this EKG as follows: Comments: Sinus rhythm with ventricular rate of [address] change Discharge Plan Dx/Rx/DC Orders Clinical Impression: Respiratory failure, Hypoxemia, COPD exacerbation, Pneumonia, Elevated troponin Disposition Disposition: Acute Care [facility]
[2025-02-16] MEDS: Albuterol 2.5 MG/3 ML VIAL.NEB. INHALATION ×3 (08:36→08:38)
[2025-02-16 08:46] LABS: Hematocrit 45.4 % (40-54); Hemoglobin 13.9 g/dL (13.0-16.5); Immature Granulocytes Count 0.040 X10^3/uL (0.0-0.0); Mean Corp Hgb Conc 30.6 g/dL (32-36); Mean Corpuscular Volume 112.4 fL (80-94); Mean Platelet Vol. 9.3 fl (6.2-12.0); NRBC Flagged by Analyzer 0 % (0-5); Platelet Count 174 K/mm3 (150-450); RBC Distribution Width CV 15.3 % (11.6-14.6); RBC Distribution Width SD 64.6 fl (35.1-43.9); Red Blood Count 4.04 M/mm3 (4.6-6.2); White Blood Count 7.6 K/mm3 (4.4-11.0)
[2025-02-16] MEDS: 0.9% Normal Saline (1000mL) 1,000 ML 150 ML IV (08:47)
[2025-02-16 09:06] LABS: Mucous, Urine 0 SEEN /hpf (<or=2+); Red Blood Cells-Urine 0 SEEN /hpf (0-5); Squamous Epithelial Cells - UA 0 SEEN /hpf (0-5)
[2025-02-16 09:10] LABS: Color, Urine Yellow (Yellow); Glucose, Dipstick Normal (Normal); Ketone-Dipstick Negative (Negative); Leukocyte Esterase-Dipstick Negative /ul (Negative); Nitrite-Dipstick Negative (Negative); Occult Blood-Urine Negative /ul (Negative); Protein-Dipstick 15 mg/dl (Negative); Specific Gravity, Urine 1.010 (1.002-1.030); Urine Bilirubin Dipstick Negative (Negative)
[2025-02-16 09:18] LABS: AST(SGOT) 22 U/L (<=37); Alanine Aminotransfer ALT/SGPT 18 U/L (<=46); Albumin, Serum 4.1 g/dL (3.4-4.8); Alkaline Phosphatase 86 U/L (40-129); Anion Gap 7 (5-15); BUN 18 mg/dL (4-19); BUN/Creat Ratio 10.7 RATIO (10-20); Calcium,Total 9.2 mg/dL (7.6-11.0); Carbon Dioxide 32.9 mmol/L (21.0-32.0); Chloride 99 mmol/L (98-108); Estimated Creatinine Clearance 53.06 ml/min (50-250); Globulin 4.0 g/dL (2.2-4.2); Glucose 112 mg/dL (70-99); Lithium 0.84 mmol/L (0.60-1.20); Potassium 4.9 mmol/L (3.3-5.1)
--- NOTE | 2025-02-16 09:18 | ED.RN ---
Pt requested to call his girlfriend which was done. She asked to keep in touch.
[2025-02-16 09:20] LABS: Pro- Brain NATRIURETIC PEPTIDE 584 pg/mL (<=900); Troponin T High Sensitivity 53 ng/L (<=22)
[2025-02-16 09:49] LABS: Base Excess 9 mmol/L (-2 to +2); FI02 40.0; PEEP 10; PO2 75 mmHG (75-100); SITE L Radial; SO2 92 % (94-98)
[2025-02-16] MEDS: Azithromycin 500 MG in 0.9% Normal Saline (250mL Bag) 250 ML 250 MG IV (10:19)
[2025-02-16 11:07] LABS: Troponin T High Sens 2 HR 51 ng/L (<=22)
--- NOTE | 2025-02-16 11:07 | HP.PCM.HOS_ITS ---
HPI - General General Date of Admission: 02/16/25 Date of Service: 02/16/25 Chief Complaint: Hypoxia HPI Narrative FLORY ARIZA, is a 65 y/o M w/ hx of GERD, schizophrenia, COPD, HTN, BPH presented [facility] ED 02/16/2025 from care home due to respiratory distress and O2 sats in the 30s. He was found hypoxic and was placed on 4 L of O2 with sats in improved to the 80s and he was brought into the ED. Was noted to have a fever as well. Patient poor historian so history obtained per report. In the ED temp 102.3, heart rate 98, respiratory rate 26, blood pressure 149/64 and pulse ox 92% on 4 L nasal cannula but required transition to BiPAP. White count 7.6, hemoglobin 13.9, BUN of 18 and creatinine 1.67 up from baseline around 1.2. Lactic 1.1. Troponin 53, proBNP 584. UA not suggestive of UTI. Freer level 0.84. Chest x-ray with elevation of right hemidiaphragm with atelectasis and/or infiltrate at right lung base. ABG obtained and showed a pH of 7.28, bicarb 36, O2 sat 92% on BiPAP, pCO2 77.5. Patient given antibiotics and breathing treatments and hospitalist contacted for admission. Patient evaluated at bedside, did wake up to prompting but would only say that he wanted the BiPAP off and then went back to resting. Unable obtain further history and no family present at bedside. [facility] Medical History (Updated 02/16/25 @ 12:[address] Callie Manning MD) (HFpEF) heart failure with preserved ejection fraction Aspiration pneumonia Bipolar disorder Chronic venous stasis dermatitis of both lower extremities Dysphagia GERD (gastroesophageal reflux disease) Hypercarbia Hyperlipemia Hypertension Hypoxemia Schizophrenia Sepsis Tobacco abuse Home Medications ?Medication ?Instructions ?Recorded ?Last Taken ?Type omeprazole 20 mg capsule,delayed 20 mg PO BID 02/18/15 Unknown History release fluphenazine decanoate 25 mg/mL 25 mg IM Q14D PARANOID 07/29/16 Unknown History injection solution SCHIZOPHRENIA montelukast 10 mg tablet 10 mg PO DAILY 05/02/18 Unkn own History simvastatin 20 mg tablet (Zocor) 20 mg PO QHS 05/02/18 Unknown History multivitamin (Daily Multi-Vitamin 1 tab PO DAILY repla cement 12/09/23 Unknown History tablet) acetaminophen 325 mg tablet 650 mg PO Q4H PRN fever or pain 05/23/24 Unknown History acetaminophen 650 mg rectal 650 mg LA Q4H PRN pain Unknown History suppository aluminum-mag hydroxide-simethicone 30 ml PO Q4H PRN in digestion 05/23/24 Unknown History 400 mg-400 mg-40 mg/5 mL oral susp (Mintox Maximum Strength) bisacodyl 10 mg rectal suppository 10 mg LA DAILY PRN CONSTIPATION 05/23/24 Unknown History cholecalciferol (vitamin D3) 50 50 mcg PO QHS SUPPLEME NT 05/23/24 Unknown History mcg (2,000 unit) tablet (D3 DOTS) sodium phosphates 19 gram-7 118 ml LA BID PRN constipa tion 05/23/24 Unknown History gram/118 mL enema (Fleet Enema) trazodone 50 mg tablet 50 mg PO QHS sleep 05/23/24 Unknown History hydrochlorothiazide 25 mg tablet 25 mg PO DAILY 30 day s #0 tabs 06/04/24 Unknown Rx lithium carbonate 300 mg capsule 300 mg PO QHS 30 days #0 caps 06/04/24 Unknown Rx olanzapine 10 mg tablet 10 mg PO BID 30 days #0 tabs 06/04/24 Unknown Rx albuterol sulfate 90 mcg/actuation 1 puff inhalation Q 6H PRN 12/17/24 Unknown History aerosol inhaler shortness of breath or wheez ing aspirin 81 mg tablet 81 mg PO QDAY 12/17/24 Unkno wn History divalproex 250 mg tablet,delayed 250 mg PO BID 5 Unknown History release finasteride 5 mg tablet 5 mg PO QDAY 12/17/24 Unknow n History lithium carbonate 300 mg tablet 300 mg PO BID 12/17/24 Unknown History dextrose 40 % oral gel (Glucose 10 g PO Q15M PRN hypog lycemia 02/16/25 Unknown History Gel) glucagon HCl 1 mg solution for 1 mg IM Q20M PRN hypogl ycemia 02/16/25 Unknown History injection (Glucagon (HCl) Emergency Kit) ipratropium 0.5 mg-albuterol 3 mg 3 ml continuous nebu lization Q4H 02/16/25 Unknown History (2.5 mg base)/3 mL nebulization PRN shortness of breat h or wheezing soln loperamide 2 mg capsule (Imodium 2 mg PO PRN 02/16/25 Unknown History A-D) magnesium hydroxide 400 mg/5 mL 30 ml PO PRN 02/16/25 Unknown History oral suspension (Dulcolax (magnesium hydroxide)) Allergy/AdvReac Type Severity Reaction Status Date / Time codeine AdvReac Upset Verified 02/16/25 08:16 Stomach haloperidol (From Haldol) AdvReac Abd Verified 02/16/25 08:16 cramps/diarrhea haloperidol lactate (From AdvReac Abd Verified 02/16/25 08:16 Haldol) cramps/diarrhea ziprasidone AdvReac Unknown Verified 02/16/25 08:16 Family History Mother Diabetes Surgical History History of esophagogastroduodenoscopy (EGD) S/P bilateral inguinal hernia repair S/P laparoscopic cholecystectomy S/P right knee arthroscopy Social History Smoking Status: Heavy Smoker (>10/day) Tobacco: How many years used: 40 ROS ROS Narrative Unable to obtain secondary to mental status Vital Signs Vital Signs Vital Signs: 02/16/25 08:17 02/16/25 08:21 02/16/25 08:22 Temperature 102.3 F H 99.4 F H Temperature Source Axillary Temporal Pulse Rate 98 98 Respiratory Rate 26 H 30 H Respiratory Effort Short of Breath Labored Respiratory Pattern Tachypnea Blood Pressure 149/64 H 132/69 H Blood Pressure Mean 92 90 Pulse Ox 4 93 Oxygen Delivery Method Nasal Cannula Bi-pap Nasal Cannula Oxygen Flow Rate (L/min) Fraction of Inspired Oxygen (FIO2) 02/16/25 08:35 02/16/25 08:35 02/16/25 09:05 Temperature Temperature Source Pulse Rate 97 95 Respiratory Rate 28 H 25 H Respiratory Effort Respiratory Pattern Blood Pressure Blood Pressure Mean Pulse Ox 99 93 Oxygen Delivery Method Nasal Cannula Oxygen Flow Rate (L/min) 4 Fraction of Inspired Oxygen (FIO2) 45 02/16/25 09:21 02/16/25 10:00 02/16/25 10:10 Temperature 99.7 F H 99.0 F Temperature Source Temporal Temporal Pulse Rate 95 90 88 Respiratory Rate 29 H 23 H 20 H Respiratory Effort Respiratory Pattern Blood Pressure 126/114 H 122/66 H Blood Pressure Mean 118 84 Pulse Ox 95 96 94 Oxygen Delivery Method Bi-pap Bi-pap Oxygen Flow Rate (L/min) Fraction of Inspired Oxygen (FIO2) 35 02/16/25 10:23 Temperature 99.0 F Temperature Source Pulse Rate 87 Respiratory Rate 18 Respiratory Effort Respiratory Pattern Blood Pressure 122/66 H Blood Pressure Mean 84 Pulse Ox 95 Oxygen Delivery Method Oxygen Flow Rate (L/min) Fraction of Inspired Oxygen (FIO2) Weight Weight: 101.9 kg Body Mass Index (BMI) 34.1 Physical Exam Narrative General: Resting, takes prompting to wake up, was able to verbalize that he wanted the BiPAP off, explained why we cannot take this off yet and ultimately he fell back asleep HEENT: Atraumatic Eyes: Anicteric, normal conjunctiva, extraocular movements grossly intact Neck: Supple Respiratory: Slightly tachypneic with diminished breath sounds bilaterally Cardiovascular: Regular rate and rhythm GI: Protuberant but does not seem to be tender, fairly soft Extremities: No significant peripheral edema Musculoskeletal: Moving all extremities Neuro: No overt focal neurological deficits though patient not able to participate in neuroexam at this time Skin: No rashes appreciated Psych: Woke up, went on BiPAP off but ultimately fell back asleep Results Lab / Micro Data 02/16/25 08:30 02/16/25 08:30 Labs: Laboratory Results - last 24 hr 02/16/25 08:30: WBC 7.6, RBC 4.04 L, Hgb 13.9, Hct 45.4, MCV 112.4 H, MCH 34.4 H , MCHC 30.6 L, RDW Std Deviation 64.6 H, RDW Coeff of [place] 15.3 H, Plt Count 174, MPV 9.3, Immature Gran % (Auto) 0.500, Neut % (Auto) 80.3 H, Lymph % (Auto) 10.2 L, [place] % (Auto) 6.6, Eos % (Auto) 2.0, Baso % (Auto) 0.4, Absolute Neuts (auto) 6.1, Absolute Lymphs (auto) 0.78 L, Nucleated RBC % 0, Sodium 139, Potassium 4.9, Chloride 99, Carbon Dioxide 32.9 H, Anion Gap 7, BUN 18, Creatinine 1.67 H, Estim Creat Clear Calc 53.06, Est GFR (MDRD) Non-Af 46 L, BUN/Creatinine Ratio 10.7, Glucose 112 H, Lactic Acid 1.1, Calcium 9.2, Total Bilirubin 0.40, AST 22, ALT 18, Alkaline Phosphatase 86, Troponin T High Sens 53 H D, NT pro BNP II 584, Total Protein 8.2, Albumin 4.1, Globulin 4.0, Albumin/Globulin Ratio 1.0, Freer 0.84 02/16/25 08:57: Urine Color Yellow, Urine Clarity Clear, Urine pH 6.0, Ur Specific [place] 1.010, Urine Protein 15 H, Urine Glucose (UA) Normal, Urine Ketones Negative, Urine Occult Blood Negative, Urine Nitrite Negative, Urine Bilirubin Negative, Urine Urobilinogen Normal, Ur Leukocyte Esterase Negative, Urine RBC 0 SEEN, Urine WBC 0 SEEN, Ur Squamous Epith Cells 0 SEEN, Urine Bacteria 0 SEEN, Urine Mucus 0 SEEN 02/16/25 10:30: Troponin T Hi Sens 2 Hr 51 H Micro: Microbiology 02/16/25 08:57 Mucosa - Nose SARS-CoV-2, Influenza & RSV (PCR) - Final ABG Data ABG results: ABG 02/16/25 09:44 Specimen Type ART Sample Site L Radial pH 7.28 L Bicarbonate Actual 36.0 H Total CO2 38 Base Excess 9 H O2 Saturation 92 L O2 % 40.0 ABG pCO2 77.5 H* ABG pO2 75 O2 Delivery Device BiPAP Vent Mode Not entered Tidal Volume 500.0 POC PEEP 10 Crit Call To/Read Back Yes Blood Gas Notified Whom RU Blood Gas Notified Time 09:46:28 Imaging Radiology Impression Chest X-Ray 02/16/25 08:15 IMPRESSION: Elevation of the right hemidiaphragm with the atelectasis and/or infiltrate at the right lung base. Follow-up recommended. Reading Location: [id number] Assessment & Plan Assessment/Plan (1) Acute respiratory failure with hypoxia and hypercapnia: PLAN: Plan # Acute hypoxic hypercapnic respiratory failure secondary to pneumonia -Patient noted to have an O2 sat in the 30s per nursing facility which only improved to 87-89% on 4 L -ABG in the ED with pH 7.28, bicarb 36, O2 sat of 92% patient requiring BiPAP, pCO2 77.5 -Imaging: Chest x-ray concerning for infiltrate -DuoNebs and as needed albuterol -Sputum culture, COVID negative, respiratory panel ordered -Urine antigens -Mucinex, I/S - Will give Unasyn and doxycycline given patient's multiple medications that can prolong QTc # Acute metabolic encephalopathy - Secondary to hypoxia and hypercapnia - Treat underlying etiology - Will check ammonia level to verify no additional contributory etiology - UA not consistent with UTI # NILESH - Creatinine 1.67 up from 1.11 earlier this year -Did receive some IV fluids in the ED -Motor bladder scan/postvoid to make sure patient not retaining # Elevated troponin -Initial troponin 53 with repeat of 51 -Suspect this is due to patient's hypoxia, he has not reported any chest pain # History of schizophrenia -Continue home medications aside from fluphenazine which is a q. 14-day injection which can be resumed on discharge -Freer level 0.84 -Depakote level and ammonia ordered #Chronic BPH with obstruction -Continue home medications #GERD -Continue PPI #DVT ppx: Lovenox subcu Callie Manning MD Charges/Coding Visit Charges Inpatient E&M: 60437 Init Hosp L2
[2025-02-16] MEDS: Ampicillin/Sulbactam 3 GM in 0.9% Normal Saline (100mL MB+) 100 ML IV ×2 (12:41→17:24)
[2025-02-16 12:56] LABS: Magnesium 2.8 mg/dL (1.5-2.2)
[2025-02-16 13:29] LABS: Ammonia 39.9 umol/L (16-60)
[2025-02-16 13:31] LABS: Troponin T High Sens 4 HR 43 ng/L (<=22)
[2025-02-16] MEDS: Senna/Docusate Sodium 1 Tablet 2 TABLET PO (21:51)
[2025-02-17] VITALS (27 sets, daily range): BP systolic 84–130; BP diastolic 51–80; PULSE 53–80; RESP 14–33; TEMP 35.8–36.7; O2SAT 91–100; BMI 34.1
[2025-02-17] MEDS: Ampicillin/Sulbactam 3 GM in 0.9% Normal Saline (100mL MB+) 100 ML IV ×5 (01:00→23:50)
[2025-02-17 01:48] LABS: Valproic Acid (Depakene) Level 10 ug/mL (50-100)
[2025-02-17] MEDS: 0.9% Saline Lock 10 ML Syringe IV ×3 (06:08→21:41)
[2025-02-17 06:21] LABS: Hematocrit 43.4 % (40-54); Hemoglobin 13.0 g/dL (13.0-16.5); Immature Granulocytes Count 0.040 X10^3/uL (0.0-0.0); Mean Corp Hgb Conc 30.0 g/dL (32-36); Mean Corpuscular Volume 113.3 fL (80-94); Mean Platelet Vol. 9.5 fl (6.2-12.0); NRBC Flagged by Analyzer 0 % (0-5); POSITIVE DIFFERENTIAL YES; Platelet Count 150 K/mm3 (150-450); RBC Distribution Width CV 15.1 % (11.6-14.6); RBC Distribution Width SD 63.7 fl (35.1-43.9); Red Blood Count 3.83 M/mm3 (4.6-6.2); White Blood Count 7.0 K/mm3 (4.4-11.0)
[2025-02-17 06:38] LABS: Anion Gap 6 (5-15); BUN 22 mg/dL (4-19); BUN/Creat Ratio 15.7 RATIO (10-20); Calcium,Total 8.6 mg/dL (7.6-11.0); Carbon Dioxide 32.7 mmol/L (21.0-32.0); Chloride 103 mmol/L (98-108); Estimated Creatinine Clearance 61.65 ml/min (50-250); Glucose 109 mg/dL (70-99); Potassium 4.8 mmol/L (3.3-5.1)
--- NOTE | 2025-02-17 07:00 | NURSING ---
change of shift rounds
[2025-02-17] MEDS: Aspirin E.C. 81 MG Tablet PO (08:24)
[2025-02-17] MEDS: Senna/Docusate Sodium 1 Tablet 2 TABLET PO ×2 (08:26→21:41)
--- NOTE | 2025-02-17 09:05 | NURSING ---
grand forrest, Dr Manning, SHUTTLE PREPARATION SUPERVISOR, RT, OT, RPh, dietary, CM and SITE SAFETY MANAGER all present
--- NOTE | 2025-02-17 09:28 | CASEMGMT ---
Noted that the pt is from [facility]. RN CM to the pt room at this time. Pt is currently A&Ox2 only. There is no family at the bedside. TC to pt's NOK on file (Mother Karely). Karely states that she wishes for Tony to return to [facility] at the time of DC and denies wanting to review a list of other local in-network SNFs. Karely denies further questions or concerns at this time. DPA notified.
--- NOTE | 2025-02-17 09:36 | CASEMGMT ---
Addendum entered by Elisabet Mcmillan 02/17/25 12:43: Pt can return w/o precert. [facility] requested pt be eval'd by therapy. RN CM updated. Original Note: Discharge Planning Updates sent via [facility] to [facility] with note asking if pt can return with precert pending if they intend to skill. Awaiting response. Elisabet Mcmillan DC Planning Asst.
--- NOTE | 2025-02-17 10:18 | CASEMGMT ---
[facility] is requesting a ST eval. Dr Manning notified who states that the evaluation can be ordered. Order placed in [facility] at this time.
--- NOTE | 2025-02-17 15:18 | PCM.PN.HOSP ---
Reason for Visit Chief Complaint: Hypoxia Subjective Subjective Patient evaluated at bedside, more awake and tries to answer questions, unclear patient's baseline but he is somewhat shaky and is a poor historian. Breathing seems to be somewhat better, does have productive cough. Did not voice any other acute complaints Objective Data Objective Data Vital Signs: Vital Signs Temp Pulse Resp BP Pulse Ox O2 Del Method O2 Flow Rate 97.3 F L 67 20 H 125/55 H 99 Nasal Cannula 3.5 02/17/25 11:00 02/17/25 13:00 02/17/25 13:00 02/17/25 13:00 02/17/25 13:00 02/17/25 13:00 02/17/25 13:00 FiO2 40 02/17/25 08:00 Oxygen Flow Rate (L/min) 3.5 Oxygen Delivery Method Nasal Cannula Weight: 98.7 kg Body Mass Index (BMI) 34.1 Intake & Output: Intake and Output for Last 24 Hours 02/15/25 02/16/25 02/17/25 23:59 23:59 23:59 Intake Total 1245 / 1245 3140 / 3140 Output Total 1550 / 2300 1500 / 1500 Balance -305 / -1055 1640 / 1640 Lab / Micro Data 02/17/25 06:05 02/17/25 06:05 Labs: Laboratory Results - last 24 hr 02/17/25 00:10: Valproic Acid 10 L 02/17/25 04:13: POC Glucose 106 02/17/25 06:05: WBC 7.0, RBC 3.83 L, Hgb 13.0, Hct 43.4, MCV 113.3 H, MCH 33.9 H, MCHC 30.0 L, RDW Std Deviation 63.7 H, RDW Coeff of [place]at[place] 15.1 H, Plt Count 150, MPV 9.5, Immature Gran % (Auto) 0.600, Neut % (Auto) 80.1 H, Lymph % (Auto) 8.6 L, [place] % (Auto) 10.4 H, Eos % (Auto) 0.0, Baso % (Auto) 0.3, Absolute Neuts (auto) 5.6, Absolute Lymphs (auto) 0.60 L, Nucleated RBC % 0, Sodium 142, Potassium 4.8, Chloride 103, Carbon Dioxide 32.7 H, Anion Gap 6, BUN 22 H, Creatinine 1.39 H, Estim Creat Clear Calc 61.65, Est GFR (MDRD) Non-Af 57 L, BUN/Creatinine Ratio 15.7, Glucose 109 H, Calcium 8.6 Micro: Microbiology 02/17/25 08:45 Sputum, Expectorated/Coughed Gram Stain - Final 02/16/25 12:20 Urine Catheter - Catheter Legionella Antigen - Final 02/16/25 12:20 Urine Catheter - Catheter Streptococcus pneumoniae Antigen (M - Final 02/16/25 13:05 Mucosa - Nasopharyngeal Respiratory Panel (PCR) - Final 02/16/25 08:57 Mucosa - Nose SARS-CoV-2, Influenza & RSV (PCR) - Final Physical Exam Narrative General: Awake and answers questions but poor historian and still seems somewhat confused HEENT: Atraumatic Eyes: Anicteric Neck: Supple Respiratory: Somewhat diminished at the bases, mildly tachypneic with no overt respiratory distress Cardiovascular: Regular rate and rhythm GI: Soft, nontender, nondistended Extremities: No significant peripheral edema Musculoskeletal: Moving all extremities Neuro: Has some tremors and jerking movements of unclear chronicity Skin: No rashes appreciated Psych: Seems to attempt to be cooperative Assessment & Plan Assessment/Plan (1) Acute respiratory failure with hypoxia and hypercapnia: PLAN: Plan # Acute hypoxic hypercapnic respiratory failure secondary to pneumonia -Patient noted to have an O2 sat in the 30s per nursing facility which only improved to 87-89% on 4 L -ABG in the ED with pH 7.28, bicarb 36, O2 sat of 92% patient requiring BiPAP, pCO2 77.5 -Imaging: Chest x-ray concerning for infiltrate -DuoNebs and as needed albuterol -Sputum culture, COVID negative, respiratory panel ordered -Urine antigens -Mucinex, I/S - Will give Unasyn and doxycycline given patient's multiple medications that can prolong QTc -02/17: Patient on nasal cannula but respiratory status improving, was able to produce sputum sample and awaiting culture results. Continue antibiotics, patient be seen by speech therapy to assess swallowing. Continue inhalers # Acute metabolic encephalopathy - Secondary to hypoxia and hypercapnia - Treat underlying etiology - Will check ammonia level to verify no additional contributory etiology - UA not consistent with UTI -02/17: Unclear baseline, is awake and is better able to answer questions but still somewhat confused # NILESH - Creatinine 1.67 up from 1.11 earlier this year -Did receive some IV fluids in the ED -Motor bladder scan/postvoid to make sure patient not retaining -02/17: Improving, creatinine 1.39 today # Elevated troponin -Initial troponin 53 with repeat of 51 -Suspect this is due to patient's hypoxia, he has not reported any chest pain -02/17: Troponins continue to downtrend with a 4-hour troponin of 43, no further workup # History of schizophrenia -Continue home medications aside from fluphenazine which is a q. 14-day injection which can be resumed on discharge -[place] level 0.84 -Depakote level and ammonia ordered -02/17: Ammonia within normal limits, Depakote level only 10. Does have some tremors, unclear if this is chronic, presently is on his home medications, monitor symptoms at this time Chronic medical problems and/or problems not being actively addressed during today's encounter: #Chronic BPH with obstruction -Continue home medications #GERD -Continue PPI #DVT ppx: Lovenox subcu Callie Manning MD Charges/Coding Visit Charges Inpatient E&M: 54348 Subs Hosp L2
[2025-02-17] MEDS: 0.9% Normal Saline (250mL Bag) 250 ML 15 ML IV (21:51)
[2025-02-18] VITALS (16 sets, daily range): BP systolic 113–134; BP diastolic 61–76; PULSE 72–91; RESP 14–28; TEMP 36.1–36.6; O2SAT 87–100; BMI 34.0
[2025-02-18 04:23] LABS: Hematocrit 44.9 % (40-54); Hemoglobin 13.6 g/dL (13.0-16.5); Immature Granulocytes Count 0.020 X10^3/uL (0.0-0.0); Mean Corp Hgb Conc 30.3 g/dL (32-36); Mean Corpuscular Volume 112.3 fL (80-94); Mean Platelet Vol. 9.4 fl (6.2-12.0); NRBC Flagged by Analyzer 0 % (0-5); POSITIVE DIFFERENTIAL YES; Platelet Count 144 K/mm3 (150-450); RBC Distribution Width CV 15.3 % (11.6-14.6); RBC Distribution Width SD 63.9 fl (35.1-43.9); Red Blood Count 4.00 M/mm3 (4.6-6.2); White Blood Count 6.7 K/mm3 (4.4-11.0)
[2025-02-18 04:46] LABS: AST(SGOT) 18 U/L (<=37); Alanine Aminotransfer ALT/SGPT 17 U/L (<=46); Albumin, Serum 3.6 g/dL (3.4-4.8); Alkaline Phosphatase 66 U/L (40-129); Anion Gap 4 (5-15); BUN 23 mg/dL (4-19); BUN/Creat Ratio 17.6 RATIO (10-20); Calcium,Total 9.0 mg/dL (7.6-11.0); Carbon Dioxide 33.4 mmol/L (21.0-32.0); Chloride 108 mmol/L (98-108); Estimated Creatinine Clearance 64.36 ml/min (50-250); Globulin 3.6 g/dL (2.2-4.2); Glucose 97 mg/dL (70-99); Potassium 4.9 mmol/L (3.3-5.1)
[2025-02-18] MEDS: Ampicillin/Sulbactam 3 GM in 0.9% Normal Saline (100mL MB+) 100 ML IV ×3 (04:55→18:29)
[2025-02-18] MEDS: Senna/Docusate Sodium 1 Tablet 2 TABLET PO ×2 (08:08→20:43)
[2025-02-18] MEDS: Aspirin E.C. 81 MG Tablet PO (08:09)
--- NOTE | 2025-02-18 09:39 | SP.MBSS_ITS ---
Modified Barium Swallow Patient Information Study Date: 02/18/25 Study Time: 09:30 Direct Billable Minutes: 118 Total Minutes procedure & reportin Diagnosis: PNA J18.9 Referring Physician: Callie Manning Reason for Referral: Assess swallow function, assess risk for aspiration, and determine recommendations for least restrictive diet textures and compensatory strategies to improve swallowing safety. Medical History: [facility] to respiratory distress and O2 sats in the 30s. He was found hypoxic and was placed on 4 L of O2 with sats in improved to the 80s and he was brought into the ED. Was noted to have a fever as well. Patient is a poor historian per physician H&P. In the ED, pt was febrile, pulse ox 92% on 4 L nasal cannula but required transition to BiPAP. Chest x-ray with elevation of right hemidiaphragm with atelectasis and/or infiltrate at right lung base. Patient given antibiotics and breathing treatments and hospitalist contacted for admission to manage PNA. ST consulted due to concerns for aspiration PNA. Pt is well known to this ST department w/ 3 prior MBSS. Most recent MBSS was 05/30/2024, which revealed moderate oropharyngeal dysphagia w/ impulsivity (significantly impulsive w/ inability to limit bolus volume despite MAX verbal cues), insufficient mastication, incomplete laryngeal vestibule closure w/ deep laryngeal penetration of large volume thin and mildly thick liquid boluses by cup and straw contacting the vocal folds w/out ejection, as well as SILENT aspiration of thin liquids by large sequential swallows. He was recommended for extremely thickened liquids and repeat MBSS prior to diet advancement. During BSE 02/17/2025, the patient desatted to 83-84% w/ limited liquids. Given hx of dysphagia and silent aspiration and current PNA, the [employer]ES ASSISTANT recommended the patient be NPO w/ plan for MBSS prior to diet advancement. Medical History (Updated 02/16/25 @ 12:[address] Callie Manning MD) (HFpEF) heart failure with preserved ejection fraction Aspiration pneumonia Bipolar disorder Chronic venous stasis dermatitis of both lower extremities Dysphagia GERD (gastroesophageal reflux disease) Hypercarbia Hyperlipemia Hypertension Hypoxemia Schizophrenia Sepsis Tobacco abuse Current Diet Ordered: NPO Dentition: Edentulous Mental Status: Impaired (Impulsive; Moderate verbal cues required to ensure small sips) Respiratory Status: Oxygenating on Room Air Penetration-Aspiration Scale Penetration-Aspiration Scale: OBJECTIVE ASSESSMENT OF SWALLOW FUNCTION (QUANTITATIVE ? PER TRIAL): PENETRATION / ASPIRATION SCALE (FORD): 1 = does not enter airway 2 = enters airway/above vocal folds/ejected 3 = enters airway/above vocal folds/not ejected 4 = enters airway/contacts vocal folds/ejected 5 = enters airway/contacts vocal folds/not ejected 6 = enters airway/below vocal folds/ejected 7 = enters airway/below vocal folds/not ejected despite effort 8 = enters airway/below vocal folds/no effort VIDEOFLOROSCOPIC SCALE SCORE (FORD): Grade I = aspiration of material that has penetrated into the laryngeal vestibule, intact cough reflex Grade II = aspiration < 10 % of the bolus, intact cough reflex Grade III = aspiration of < 10 % of the bolus, reduced cough reflex or aspiration of > 10 % of the bolus, intact cough reflex Grade IV = aspiration of > 10 % of the bolus, reduced cough reflex Penetration-Aspiration Scale Score Thin Liquid via teaspoon: Result: 1= does not enter airway Thin Liquid via teaspoon Trial 2: Result: 3= enters airways/above vocal folds/not ejected Thin Liquid via large single sip: cup: Result: 3= enters airways/above vocal folds/not ejected Thin Liquid via small single sip: cup: Result: 1= does not enter airway [place] Thick Liquid via small single sip: cup: Result: 8= enters airway/below vocal folds/no effort Comment: During the swallow, aspirated barium ejected from beneath the vocal folds, but it remained in the laryngeal vestibule. Honey Thick Liquid via teaspoon: Result: 1= does not enter airway Pudding via teaspoon: Result: 1= does not enter airway Comment: Esophageal screen - Moderate retention in the lower esophagus. (This esophageal screen and the following 3 trials were not recorded due to a [employer] software error.) Thin Liquid via single sip: straw: Result: 2= enter airway/above vocal folds/ejected Comment: Esophageal screen - Liquid wash was mostly effective in clearing residues of previous trial, only mild retention in the lower esophagus. Thin Liquid via sequential sips: cup: Result: 3= enters airways/above vocal folds/not ejected Comment: Cued pt for small sip Thin Liquid via small single sip: cup Trial 2: Result: 2= enter airway/above vocal folds/ejected Comment: Administered by [employer] SALES ASSISTANT Mandarin Oranges coated in Barium Pudding: Result: 1= does not enter airway Thin Liquid via single sip: straw Effortful swallow: Result: 1= does not enter airway [place] Thick Liquid via small single sip: cup: Result: 1= does not enter airway [place] Thick Liquid via sequential sips:straw: Result: 2= enter airway/above vocal folds/ejected Comment: Cued pt for small sip Thin Liquid via single sip: straw Trial 2: Result: 2= enter airway/above vocal folds/ejected 03/06 Cookie: Comment: Could not score as fluoroscopy was turned off just prior to the patient's swallow. Good pharyngeal clearance and trachea/laryngeal vestibule clear of contrast after the swallow. 03/08 Cookie: Result: 1= does not enter airway Comment: Delayed coughing episode a few minutes after completion of the MBSS. Oral Phase Labial Seal: Interlabial escape, no progression to anterior lip Tongue Control During Bolus Hold: Posterior escape of greater than half of bolus Bolus Preparation/Mastication: Disorganized chewing/mashing with solid pieces of bolus unchewed Bolus Transport/Lingual Motion: Repetitive/disorganized tongue motion Oral Residue: Residue collection on oral structures Pharyngeal Phase Initiation of Pharyngeal Swallow: Bolus head in pyriforms Soft Palate Elevation: Trace column of contrast/air between soft palate and pharyngeal wall Laryngeal Elevation: Partial superior movement thyroid cart/partial apprx aryt- epig petiole Anterior Hyoid Excursion: Partial anterior movement Epiglottic Movement: Complete inversion Laryngeal Vestibule Closure at Height of Swallow: Incomplete; narrow column of air/contrast in laryngeal vestibule Pharyngeal Stripping Wave: Present - complete Pharyngoesophageal Segment Opening: Complete distension and complete duration; no obstruction of flow Tongue Base Retraction: Narrow column of contrast between tongue base & post. pharyngeal wall Pharyngeal Residue: Trace residue within or on pharyngeal structures Esophageal Phase Esophageal Clearance: Esophageal retention Diagnosis/Impression Diagnosis: Moderate oropharyngeal dysphagia R13.12 MBS Impressions: The oral phase is primarily marked by... -Decreased bolus control w/ premature posterior loss of >1/2 of liquids to the pyriform sinuses prior to swallow onset. -Lingual pumping for A-P transport w/ some liquid trials. -Mild-moderate oral residue, which mostly cleared w/ independent initiation of a second swallow. -Slowed, somewhat incomplete mastication of mandarin oranges and cookie trials. Recommend soft and bite size textures to decrease risk for choking. The pharyngeal phase is primarily marked by... -Delayed swallow onset. -Decreased airway closure during the swallow due to decreased anterior hyoid excursion and laryngeal elevation. SILENT aspiration of mildly thick liquids. Co nsistent laryngeal penetration of thin liquids. Laryngeal penetration of liquids was deeper w/ larger and sequential sips of liquids, increasing the patient's risk for aspiration. See PAS scores above for full details. The esophageal phase is primarily marked by... -Retention of pudding in the lower esophagus, which mostly cleared w/ liquid wash. Mild retention in the lower esophagus. Recommendations Diet: Soft and Bite Sized Textures and Thin Liquids Comment: -Medications whole in applesauce -Patient is at increased risk for aspiration with large and sequential sips of liquids, please assist feeding liquids if pt is unable to follow verbal cues to slow rate of intake. Compensatory Strategies: -Small Bites -Small Sips - Encourage hard swallows -Bites/Sips one at a time -Slow Rate -Alternate bites and sips (1:1 ratio) -Sitting upright (During and 60min after po intake) Supervision: -Direct Staff Supervision for ALL FOOD/DRINK. Assist feeding liquids as needed. Recommend Repeat Modified Barium Swallow: TBD Need for Skilled Speech Therapy Services: Yes Comment: -Train the patient in use of strategies to decrease risk for aspiration. -Ongoing assessment of diet tolerance of recommended textures. Monitor respiratory status closely. If poor diet tolerance or worsening respiratory status, consider downgrade to moderately thick liquids. -Train the patient in a thorough oral care routine. -Train the patient in oropharyngeal exercise program to improve bolus control and airway closure (lingual resistance, effortful, CTAR, Maxwell). Recommended Referrals: GI Consult (OP GI recommended, [employer] SAL[employer] ASSISTANT informed Dr. Manning) Education Completed: 1. Described result of evaluation., 2. Pt understands evaluation & agrees with goals and treatment plan. and 7. Pt requires further education on strategies & risks. Status Active ST Patient: Active Contact Information [facility] Speech Therapy:: Trinidad Weaver M.A. [facility] ASSIST[employer] Speech-Language Pathologist [facility] [address] [place] [address] [email or web address] [phone]
--- NOTE | 2025-02-18 12:30 | CASEMGMT ---
Addendum entered by Elisabet Mcmillan 02/18/25 12:34: [facility] has submitted for precert. *pt can return while that is pending. Original Note: Discharge Planning Updates sent via [facility] to [facility] with note that pt should be ready in another day or two. Elisabet Mcmillan DC Planning Asst.
--- NOTE | 2025-02-18 15:07 | PN.HOSP_ITS ---
Reason for Visit Chief Complaint: Hypoxia Subjective Subjective Patient still mumbles and makes limited eye contact but is more alert and able to answer questions better. He knows he is n.p.o. because there is concern that he has aspiration pneumonia but said he was confused because one of the doctors told him he has bacterial pneumonia. Discussed the difference and that they can co-occur or 1 can lead to the other. He verbalizes understanding. Less shaky today. Still having a cough but shortness of breath somewhat improved Objective Data Objective Data Vital Signs: Vital Signs Temp Pulse Resp BP Pulse Ox O2 Del Method O2 Flow Rate 97.9 F 81 16 130/67 H 99 Nasal Cannula 4 02/18/25 10:00 02/18/25 11:05 02/18/25 11:05 02/18/25 10:00 02/18/25 10:00 02/18/25 10:00 02/18/25 10:00 FiO2 40 02/18/25 07:08 Oxygen Flow Rate (L/min) 4 Oxygen Delivery Method Nasal Cannula Weight: 98.4 kg Body Mass Index (BMI) 34.0 Intake & Output: Intake and Output for Last 24 Hours 02/16/25 02/17/25 02/18/25 23:59 23:59 23:59 Intake Total 1245 / 1245 3840 / 3840 1032.25 / 1032.25 Output Total 1550 / 2300 7650 / 8300 3400 / 3400 Balance -305 / -1055 -3810 / -4460 -2367.75 / -2367.75 Lab / Micro Data 02/18/25 04:15 02/18/25 04:15 Labs: Laboratory Results - last 24 hr 02/18/25 04:15: WBC 6.7, RBC 4.00 L, Hgb 13.6, Hct 44.9, MCV 112.3 H, MCH 34.0 H , MCHC 30.3 L, RDW Std Deviation 63.9 H, RDW Coeff of [place] 15.3 H, Plt Count 144 L, MPV 9.4, Immature Gran % (Auto) 0.300, Neut % (Auto) 81.2 H, Lymph % (Auto) 8.2 L, [place] % (Auto) 7.4, Eos % (Auto) 2.5, Baso % (Auto) 0.4, Absolute Neuts (auto) 5.5, Absolute Lymphs (auto) 0.55 L, Nucleated RBC % 0, Sodium 146 H, Potassium 4.9, Chloride 108, Carbon Dioxide 33.4 H, Anion Gap 4 L, BUN 23 H, C reatinine 1.33 H, Estim Creat Clear Calc 64.36, Est GFR (MDRD) Non-Af 60, BUN/Creatinine Ratio 17.6, Glucose 97, Calcium 9.0, Total Bilirubin 0.44, AST 18, ALT 17, Alkaline Phosphatase 66, Total Protein 7.2, Albumin 3.6, Globulin 3.6, Albumin/Globulin Ratio 1.0 Micro: Microbiology 02/17/25 08:45 Sputum, Expectorated/Coughed Gram Stain - Final 02/16/25 12:20 Urine Catheter - Catheter Legionella Antigen - Final 02/16/25 12:20 Urine Catheter - Catheter Streptococcus pneumoniae Antigen (M - Final 02/16/25 13:05 Mucosa - Nasopharyngeal Respiratory Panel (PCR) - Final 02/16/25 08:57 Mucosa - Nose SARS-CoV-2, Influenza & RSV (PCR) - Final Physical Exam Narrative General: Awake and answers questions more appropriately HEENT: Atraumatic Eyes: Anicteric Neck: Supple Respiratory: No increased work of breathing, lungs sound fairly clear today Cardiovascular: Regular rate and rhythm GI: Soft, nontender, nondistended Extremities: No significant peripheral edema Musculoskeletal: Moving all extremities Neuro: Has some tremors and jerking movements but better than yesterday Skin: No rashes appreciated Psych: Cooperative Assessment & Plan Assessment/Plan (1) Acute respiratory failure with hypoxia and hypercapnia: PLAN: Plan # Acute hypoxic hypercapnic respiratory failure secondary to pneumonia -Patient noted to have an O2 sat in the 30s per nursing facility which only improved to 87-89% on 4 L -ABG in the ED with pH 7.28, bicarb 36, O2 sat of 92% patient requiring BiPAP, pCO2 77.5 -Imaging: Chest x-ray concerning for infiltrate -DuoNebs and as needed albuterol -Sputum culture, COVID negative, respiratory panel ordered -Urine antigens -Mucinex, I/S - Will give Unasyn and doxycycline given patient's multiple medications that can prolong QTc -02/17: Patient on nasal cannula but respiratory status improving, was able to produce sputum sample and awaiting culture results. Continue antibiotics, patient be seen by speech therapy to assess swallowing. Continue inhalers -02/18: Awaiting sputum culture results, did have a video swallow today and has been started on a diet with direct supervision. Discussed with speech and it was recommended that patient be referred to GI in an outpatient basis, does not need done inpatient but will benefit from evaluation on a nonemergent basis. Remains on IV antibiotics. If patient continues to improve and remains stable possible DC back to [facility] tomorrow # Acute metabolic encephalopathy - Secondary to hypoxia and hypercapnia - Treat underlying etiology - Will check ammonia level to verify no additional contributory etiology - UA not consistent with UTI -02/17: Unclear baseline, is awake and is better able to answer questions but still somewhat confused -02/18: Patient mumbles and has poor eye contact but answers questions more appropriately today and asks reasonable questions, has been using BiPAP nightly # NILESH - Creatinine 1.67 up from 1.11 earlier this year -Did receive some IV fluids in the ED -Motor bladder scan/postvoid to make sure patient not retaining -02/17: Improving, creatinine 1.39 today -02/18: Creatinine 1.33 today, continues to improve. Patient to begin p.o. intake, suspect that sodium will improve back to normal range and creatinine will continue to improve # Elevated troponin -Initial troponin 53 with repeat of 51 -Suspect this is due to patient's hypoxia, he has not reported any chest pain -02/17: Troponins continue to downtrend with a 4-hour troponin of 43, no further workup -02/18: No chest pain reported or cardiac complaints at this time # History of schizophrenia -Continue home medications aside from fluphenazine which is a q. 14-day injection which can be resumed on discharge -[place] level 0.84 -Depakote level and ammonia ordered -02/17: Ammonia within normal limits, Depakote level only 10. Does have some tremors, unclear if this is chronic, presently is on his home medications, monitor symptoms at this time -02/18: Continuing on medications, still has a little bit of tremors and jerking movements but better than yesterday Chronic medical problems and/or problems not being actively addressed during today's encounter: #Chronic BPH with obstruction -Continue home medications #GERD -Continue PPI #DVT ppx: Lovenox subcu Callie Manning MD Time spent in the patient's overall evaluation,decision-making process, review of diagnostic data, adjustment of management, discussion with other providers, nursing nursing and ancillary staff involved in patient's care documentation, 38 Minutes Charges/Coding Visit Charges Inpatient E&M: 97676 Subs Hosp L2
[2025-02-19] VITALS (16 sets, daily range): BP systolic 109–131; BP diastolic 63–88; PULSE 75–98; RESP 14–34; TEMP 36.3–36.4; O2SAT 90–98; BMI 33.1
[2025-02-19] MEDS: Ampicillin/Sulbactam 3 GM in 0.9% Normal Saline (100mL MB+) 100 ML IV ×4 (00:03→17:38)
[2025-02-19] MEDS: 0.9% Saline Lock 10 ML Syringe IV ×3 (00:08→17:38)
[2025-02-19] MEDS: Aspirin E.C. 81 MG Tablet PO (09:29)
[2025-02-19] MEDS: Senna/Docusate Sodium 1 Tablet 2 TABLET PO ×2 (09:30→22:21)
--- NOTE | 2025-02-19 10:37 | CASEMGMT ---
Per ICU rounds, pt is requiring BiPAP at times and up to 7L via NC. Hospitalist is aware and may order repeat CXR. [facility] notified and states that their concentrators go up to 5L, but can accommodate 10L at max if necessary. Hospitalist states that the pt will likely stay today. Updated clinicals sent to [facility] at this time. Care Management to continue to follow.
--- NOTE | 2025-02-19 11:03 | PN.HOSP_ITS ---
Reason for Visit Chief Complaint: Hypoxia Subjective Subjective Saw patient at bedside this morning. Patient was breathing comfortably on 4 L nasal cannula at rest. He denied any shortness of breath at this time but did had an intermittent wet cough during our conversation. Per nursing, patient seems to have a small degree of choking/aspiration with drinking water as he has difficulty only drinking small amounts of water. No other acute concerns at this time. Objective Data Objective Data Vital Signs: Vital Signs Temp Pulse Resp BP Pulse Ox O2 Del Method O2 Flow Rate 97.6 F L 86 19 H 109/63 98 Bi-pap 5 02/19/25 08:14 02/19/25 08:14 02/19/25 08:14 02/19/25 08:14 02/19/25 08:14 02/19/25 08:14 02/19/25 06:51 FiO2 40 02/19/25 00:10 Oxygen Flow Rate (L/min) 5 Oxygen Delivery Method Bi-pap Weight: 95.9 kg Body Mass Index (BMI) 33.1 Intake & Output: Intake and Output for Last 24 Hours 02/17/25 02/18/25 02/19/25 23:59 23:59 23:59 Intake Total 3840 / 3840 2282.25 / 2282.25 500 / 500 Output Total 7650 / 8300 3400 / 3800 1850 / 1850 Balance -3810 / -4460 -1117.75 / -1517.75 -1350 / -1350 Lab / Micro Data 02/18/25 04:15 02/18/25 04:15 Micro: Microbiology 02/17/25 08:45 Sputum, Expectorated/Coughed Gram Stain - Final 02/17/25 08:45 Sputum, Expectorated/Coughed Respiratory Culture - Preliminary Staphylococcus aureus 02/16/25 12:20 Urine Catheter - Catheter Legionella Antigen - Final 02/16/25 12:20 Urine Catheter - Catheter Streptococcus pneumoniae Antigen (M - Final 02/16/25 13:05 Mucosa - Nasopharyngeal Respiratory Panel (PCR) - Final 02/16/25 08:57 Mucosa - Nose SARS-CoV-2, Influenza & RSV (PCR) - Final Patient's Goals Of Care - F/U Goals Reviewed Goals of care reviewed with patient: NA-No significant change in clinical Status /major procedure scheduled Physical Exam Const alert and no apparent distress Constitutional Narrative: Upper middle-age male, class I obesity, sitting up in bedside chair comfortably, makes poor eye contact and mumbles but did answer some questions with short appropriate responses, in no acute distress. General Appearance: cooperative and comfortable HEENT normocephalic, head/scalp atraumatic, hearing grossly normal bilaterally, nasal mucous membranes and turbinates normal and moist oral mucous membranes Eyes PERRL, EOMs intact bilaterally and conjunctivae normal Neck full ROM Chest inspection of chest normal Resp normal respiratory effort and no use of accessory muscles Resp Narrative: Breathing comfortably on 4 L nasal cannula at rest. Mild crackles noted in mid lung kirby bilaterally. No wheezing noted. Cardio regular rate, regular rhythm, no murmurs and peripheral pulses 2+ throughout GI normal to inspection, nondistended, normoactive bowel sounds, soft to palpation, non-tender and non-distended Back/Spine normal ROM Extremity normal to inspection, full ROM and no pedal edema Skin no rashes or lesions noted Psych mental status grossly normal Assessment & Plan Assessment/Plan (1) Acute hypoxic respiratory failure: PLAN: Plan Patient is a 64-year-old male who presented to [facility] ED on 02/16/2025 with respiratory distress and hypoxia. 1. Acute hypoxic and hypercapnic respiratory failure secondary to aspiration pneumonia due to moderate oropharyngeal dysphagia ? Speech therapy following. Not on home oxygen. Was requiring 6 L nasal cannula on admit to maintain appropriate oxygen saturations. ABG in the ED with pH 7.28, bicarb 36, pCO2 77. Given the hypercapnia, was placed on BiPAP in the ED and admitted to the ICU. Chest x-ray with concern for infiltrate in the right lung base. Patient with known history of dysphagia and prior history of aspiration pneumonia. Completed video swallow study on 02/18 and results consistent with moderate oropharyngeal dysphagia, with recommendation for regular diet under direct supervision. Infectious workup negative to this point. Patient has been weaned down to 3 L at rest on 02/19. Will continue IV Unasyn and doxycycline for now. If patient continues to improve tomorrow, will likely be okay for discharge back to SNF and will transition to p.o. antibiotics to complete 7-day course total. 2. Acute metabolic encephalopathy, resolved ? Presume secondary to hypoxia and hypercapnia. Ammonia level normal. UA not consistent with UTI. Patient at baseline makes poor eye contact and mumbles frequently when responding to questions due to schizophrenia as below. Returned to baseline by 02/19. 3. Mild creatinine elevation, improved ? Creatinine 1.6 on admit, baseline 1.1-1.3. Presumed prerenal etiology due to hypoxia and mild dehydration. No retention noted on admission. Returned to baseline on hospital day 2 with IV fluid resuscitation. 4. Elevated troponins ? Troponin trend 53 > 51 > 43. Presumed secondary to hypoxia. No chest pain or EKG changes noted. No need for further cardiac workup while inpatient. 5. Schizophrenia ? [place] level normal, Depakote level mildly low. Continue home lithium, olanzapine, and Depakote. Can resume fluphenazine injections every 2 weeks on discharge. 6. BPH with obstructive symptoms ? Continue home finasteride. 7. GERD ? Continue home PPI. 8. Hyperlipidemia ? Continue home statin. 9. Weakness ? PT/OT/case management following. Patient will be okay to return to SNF on discharge. DVT prophylaxis: Lovenox CODE STATUS: Full code, verified Expected disposition: Back to SNF, 1 to 2 days Total clinical time spent by myself addressing the patient's medical issues, reviewing all the data, and collaborating with patient's care team: 37 minutes. Charges/Coding Visit Charges Inpatient E&M: 94653 Subs Hosp L2
--- NOTE | 2025-02-19 13:55 | CASEMGMT ---
[facility] has obtained auth to admit. Auth ID [id number], good thru 02/23/25. SW updated. Elisabet Mcmillan DC Planning Asst.
--- NOTE | 2025-02-19 23:35 | CPS ---
Pt refusing to wear BIPAP tonight.
[2025-02-20] VITALS (14 sets, daily range): BP systolic 106–148; BP diastolic 58–101; PULSE 75–95; RESP 18–33; TEMP 36.4–37.1; O2SAT 92–99; BMI 33.0
[2025-02-20] MEDS: Ampicillin/Sulbactam 3 GM in 0.9% Normal Saline (100mL MB+) 100 ML IV ×3 (02:58→12:34)
[2025-02-20] MEDS: 0.9% Normal Saline (250mL Bag) 250 ML 15 ML IV (06:09)
[2025-02-20] MEDS: Aspirin E.C. 81 MG Tablet PO (08:34)
--- NOTE | 2025-02-20 10:47 | TREXTCAR_ITS ---
Diet Diet Order/Speech Therapy: INPATIENT Hospital Diet / Speech Therapy Order(s) 02/19/25 09:48 Diet: Sodium Restricted (MOD) Food consistency:: Soft & Bite Sized Liquid Consistency:: Regular/Thin Speech Therapy Comments: DIRECT SUP ALL FOOD/DRINK,Meds whole in ,Assist feeding liquids as needed Routine Orders/Code Status Code Status: Full Code DC O2, CPAP, BIPAP needs Home O2 Discharge instructions: No Wound(s) Right 2nd toe: Wound Type: Stasis Ulcer Left 2nd Toe: Wound Type: Stasis Ulcer Therapies Weight Bearing: Full weight bearing Physical Therapy: Eval and Treat Occupational Therapy: Eval and Treat Speech Therapy: Eval and Treat Problem/Diagnosis (1) Acute hypoxic respiratory failure: Status: Acute Code(s): J96.01 - Acute respiratory failure with hypoxia Plan Patient is a 64-year-old male who presented to [facility] ED on 02/16/2025 with respiratory distress and hypoxia. Hospital course as noted below. Patient discharged back to SNF in stable condition on 02/20. 1. Acute hypoxic and hypercapnic respiratory failure secondary to aspiration pneumonia due to moderate oropharyngeal dysphagia ? Speech therapy followed. Not on home oxygen. Was requiring 6 L nasal cannula on admit to maintain appropriate oxygen saturations. ABG in the ED with pH 7.28, bicarb 36, pCO2 77. Given the hypercapnia, was placed on BiPAP in the ED and admitted to the ICU. Chest x-ray with concern for infiltrate in the right lung base. Patient with known history of dysphagia and prior history of aspiration pneumonia. Completed video swallow study on 02/18 and results consistent with moderate oropharyngeal dysphagia, with recommendation for regular diet under direct supervision. Notably, patient is impulsive given his underlying history of schizophrenia and he needs close supervision with p.o. intake to ensure he does not eat or drink too quickly and aspirate. Infectious workup negative. Patient weaned down to 2 L at rest and 3 L with exertion by day of discharge. Treated with IV Unasyn and doxycycline while inpatient, will discharge on Augmentin and complete 7-day course of antibiotics total. Stable for discharge back to SNF on 02/20. 2. Acute metabolic encephalopathy, resolved ? Presume secondary to hypoxia and hypercapnia. Ammonia level normal. UA not consistent with UTI. Patient at baseline makes poor eye contact and mumbles frequently when responding to questions due to schizophrenia as below. Returned to baseline by 02/19. 3. Mild creatinine elevation, improved ? Creatinine 1.6 on admit, baseline 1.1-1.3. Presumed prerenal etiology due to hypoxia and mild dehydration. No retention noted on admission. Returned to baseline on hospital day 2 with IV fluid resuscitation. 4. Elevated troponins ? Troponin trend 53 > 51 > 43. Presumed secondary to hypoxia. No chest pain or EKG changes noted. No need for further cardiac workup while inpatient. 5. Schizophrenia ? [place] level normal, Depakote level mildly low. Continue home lithium, olanzapine, and Depakote. Can resume fluphenazine injections every 2 weeks on discharge. 6. BPH with obstructive symptoms ? Continue home finasteride. 7. GERD ? Continue home PPI. 8. Hyperlipidemia ? Continue home statin. 9. Weakness ? PT/OT/case management followed. Stable for discharge back to SNF on 02/20. Total clinical time spent by myself addressing the patient's medical issues, reviewing all the data, and collaborating with patient's care team: 38 minutes. Allergies/Procedures Done in Hospital Allergies codeine Adverse Reaction (Verified 02/16/25 08:16) Upset Stomach haloperidol (From Haldol) Adverse Reaction (Verified 02/16/25 08:16) Abd cramps/diarrhea haloperidol lactate (From Haldol) Adverse Reaction (Verified 02/16/25 08:16) Abd cramps/diarrhea ziprasidone Adverse Reaction (Verified 02/16/25 08:16) Unknown Procedures: EKG and - (Chest x-ray, video swallow study) Type of Care/Length of Stay Estimated LOS: Convalescent Care Less Than 30 days Type of Care Needed: Skilled Rehab Potential: Fair Prognosis: Fair Additional Orders/Day of Discharge H&P will serve as current which was dated: 02/16/25 Day of Discharge: 02/20/25 Dietary and Speech Recommendations Dietitian Recommendations/Changes: Adjust to sodium restricted diet to manage medical conditions with texture/consistency per DENTIST ATTENDANT Discharge Plan Admission Admit Date/Time: 02/16/25 11:08 Primary Reason for Your Visit: Shortness of breath Attending Provider: Robson George Primary Care Provider: Aldair Woods Consulting Providers: Callie Manning Discharge Orders/Prescriptions Prescriptions: New amoxicillin-pot clavulanate 875-125 mg tablet 1 tab PO BID 3 Days Qty: 6 0RF Continued divalproex 250 mg tablet,delayed release (DR/EC) 250 mg PO BID aspirin 81 mg tablet 81 mg PO QDAY albuterol sulfate 90 mcg/actuation HFA aerosol inhaler 1 puff inhalation Q6H PRN (Reason: shortness of breath or wheezing) finasteride 5 mg tablet 5 mg PO QDAY lithium carbonate 300 mg tablet 300 mg PO BID omeprazole 20 MG capsule 20 mg PO BID fluphenazine decanoate 25 MG/ML solution 25 mg IM Q14D MDD Q 2 WEEKS simvastatin [Zocor] 20 MG tablet 20 mg PO QHS montelukast 10 MG tablet 10 mg PO DAILY multivitamin [Daily Multi-Vitamin] Tablet 1 tab PO DAILY trazodone 50 mg tablet 50 mg PO QHS cholecalciferol (vitamin D3) [D3 DOTS] 50 mcg (2,000 unit) tablet 50 mcg PO QHS acetaminophen 650 mg suppository 650 mg MN Q4H PRN (Reason: pain) acetaminophen 325 mg tablet 650 mg PO Q4H PRN (Reason: fever or pain) bisacodyl 10 mg suppository 10 mg MN DAILY PRN (Reason: CONSTIPATION) alum-mag hydroxide-simeth [Mintox Maximum Strength] 400-400-40 mg/5 mL suspension 30 ml PO Q4H PRN (Reason: indigestion) Fleet Enema 19-7 gram/118 mL enema 118 ml MN BID PRN (Reason: constipation) olanzapine 10 mg Tablet 10 mg PO BID 30 Days Qty: 0 2RF hydrochlorothiazide 25 mg Tablet 25 mg PO DAILY 30 Days Qty: 0 2RF glucagon HCl [Glucagon (HCl) Emergency Kit] 1 mg recon soln 1 mg IM Q20M PRN (Reason: hypoglycemia) Rx Instructions: until target blood sugar attained dextrose [Glucose Gel] 40 % gel 10 g PO Q15M PRN (Reason: hypoglycemia) Rx Instructions: until symptoms of low blood sugar are controlled ipratropium-albuterol 0.5 mg-3 mg(2.5 mg base)/3 mL solution for nebulization 3 ml continuous nebulization Q4H PRN (Reason: shortness of breath or whe ezing) Patient Comments: [NO ORIGINAL SIG] loperamide [Imodium A-D] 2 mg capsule 2 mg PO PRN magnesium hydroxide [Dulcolax (magnesium hydroxide)] 400 mg/5 mL suspension 30 ml PO PRN Discontinued lithium carbonate 300 mg Capsule 300 mg PO QHS 30 Days Qty: 0 2RF Referrals / Follow Up: Aldair Woods DO [Primary Care Provider, Medical] Ingris Chu POULTRY VETERINARIAN, POULTRY VETERINARIAN-C [Non-Staff, Medical] Disposition Disposition (needs filled in before D/C Order can be placed): Intermediate Facility
--- NOTE | 2025-02-20 10:54 | PCM.DC.SUM ---
Providers Date of Admission: 02/16/25 Date of Discharge: 02/20/25 Primary Care Physician: Dr. Aldair Woods DO Reason For Visit: ACUTE COMBINED RESPIRATORY FAILURE Diagnosis Discharge Diagnosis (1) Acute hypoxic respiratory failure: Status: Acute Code(s): J96.01 - Acute respiratory failure with hypoxia 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 07/29/16 montelukast 10 mg tablet 10 mg PO DAILY 05/02/18 simvastatin 20 mg tablet (Zocor) 20 mg PO QHS 05/02/18 multivitamin (Daily Multi-Vitamin tablet) 1 tab PO DAILY replacement 12/09/23 acetaminophen 325 mg tablet 650 mg PO Q4H PRN fever or pain 05/23/24 acetaminophen 650 mg rectal suppository 650 mg NH Q4H PRN pain 05/23/24 aluminum-mag hydroxide-simethicone 400 mg-400 mg-40 mg/5 mL oral susp (Mintox Maximum Strength) 30 ml PO Q4H PRN indigestion 05/23/24 bisacodyl 10 mg rectal suppository 10 mg NH DAILY PRN CONSTIPATION 05/23/24 cholecalciferol (vitamin D3) 50 mcg (2,000 unit) tablet (D3 DOTS) 50 mcg PO QHS SUPPLEMENT 05/23/24 sodium phosphates 19 gram-7 gram/118 mL enema (Fleet Enema) 118 ml NH BID PRN constipation 05/23/24 trazodone 50 mg tablet 50 mg PO QHS sleep 05/23/24 hydrochlorothiazide 25 mg tablet 25 mg PO DAILY 30 days #0 tabs 06/04/24 olanzapine 10 mg tablet 10 mg PO BID 30 days #0 tabs 06/04/24 albuterol sulfate 90 mcg/actuation aerosol inhaler 1 puff inhalation Q6H PRN shortness of breath or wheezing 12/17/24 aspirin 81 mg tablet 81 mg PO QDAY 12/17/24 divalproex 250 mg tablet,delayed release 250 mg PO BID 12/17/24 finasteride 5 mg tablet 5 mg PO QDAY 12/17/24 lithium carbonate 300 mg tablet 300 mg PO BID 12/17/24 dextrose 40 % oral gel (Glucose Gel) 10 g PO Q15M PRN hypoglycemia 02/16/25 glucagon HCl 1 mg solution for injection (Glucagon (HCl) Emergency Kit) 1 mg IM Q20M PRN hypoglycemia 02/16/25 ipratropium 0.5 mg-albuterol 3 mg (2.5 mg base)/3 mL nebulization soln 3 ml continuous nebulization Q4H PRN shortness of breath or wheezing 02/16/25 loperamide 2 mg capsule (Imodium A-D) 2 mg PO PRN 02/16/25 magnesium hydroxide 400 mg/5 mL oral suspension (Dulcolax (magnesium hydroxide)) 30 ml PO PRN 02/16/25 amoxicillin 875 mg-potassium clavulanate 125 mg tablet 1 tab PO BID 3 days #6 tabs 02/20/25 Hospital Course Operations None Procedures EKG, Modified Barium Swallow and - (Chest x-ray, video swallow study) Summary of Care Provided Minutes Spent on Discharge: 38 Hospital Course: Patient is a 64-year-old male who presented to [facility] ED on 02/16/2025 with respiratory distress and hypoxia. Hospital course as noted below. Patient discharged back to SNF in stable condition on 02/20. 1. Acute hypoxic and hypercapnic respiratory failure secondary to aspiration pneumonia due to moderate oropharyngeal dysphagia ? Speech therapy followed. Not on home oxygen. Was requiring 6 L nasal cannula on admit to maintain appropriate oxygen saturations. ABG in the ED with pH 7.28, bicarb 36, pCO2 77. Given the hypercapnia, was placed on BiPAP in the ED and admitted to the ICU. Chest x-ray with concern for infiltrate in the right lung base. Patient with known history of dysphagia and prior history of aspiration pneumonia. Completed video swallow study on 02/18 and results consistent with moderate oropharyngeal dysphagia, with recommendation for regular diet under direct supervision. Notably, patient is impulsive given his underlying history of schizophrenia and he needs close supervision with p.o. intake to ensure he does not eat or drink too quickly and aspirate. Infectious workup negative. Patient weaned down to 2 L at rest and 3 L with exertion by day of discharge. Treated with IV Unasyn and doxycycline while inpatient, will discharge on Augmentin and complete 7-day course of antibiotics total. Stable for discharge back to SNF on 02/20. 2. Acute metabolic encephalopathy, resolved ? Presume secondary to hypoxia and hypercapnia. Ammonia level normal. UA not consistent with UTI. Patient at baseline makes poor eye contact and mumbles frequently when responding to questions due to schizophrenia as below. Returned to baseline by 02/19. 3. Mild creatinine elevation, improved ? Creatinine 1.6 on admit, baseline 1.1-1.3. Presumed prerenal etiology due to hypoxia and mild dehydration. No retention noted on admission. Returned to baseline on hospital day 2 with IV fluid resuscitation. 4. Elevated troponins ? Troponin trend 53 > 51 > 43. Presumed secondary to hypoxia. No chest pain or EKG changes noted. No need for further cardiac workup while inpatient. 5. Schizophrenia ? Zinc level normal, Depakote level mildly low. Continue home lithium, olanzapine, and Depakote. Can resume fluphenazine injections every 2 weeks on discharge. 6. BPH with obstructive symptoms ? Continue home finasteride. 7. GERD ? Continue home PPI. 8. Hyperlipidemia ? Continue home statin. 9. Weakness ? PT/OT/case management followed. Stable for discharge back to SNF on 02/20. Total clinical time spent by myself addressing the patient's medical issues, reviewing all the data, and collaborating with patient's care team: 38 minutes. Physical Exam Const alert and no apparent distress Constitutional Narrative: Upper middle-age male, class I obesity, sitting up in bedside chair comfortably, makes poor eye contact and mumbles but did answer some questions with short appropriate responses, in no acute distress. General Appearance: cooperative and comfortable HEENT normocephalic, head/scalp atraumatic, hearing grossly normal bilaterally, nasal mucous membranes and turbinates normal and moist oral mucous membranes Eyes PERRL, EOMs intact bilaterally and conjunctivae normal Neck full ROM Chest inspection of chest normal Resp normal respiratory effort and no use of accessory muscles Resp Narrative: Breathing comfortably on 2 L nasal cannula at rest. Mild crackles noted in mid lung kirby bilaterally, improving. No wheezing noted. Cardio regular rate, regular rhythm, no murmurs and peripheral pulses 2+ throughout GI normal to inspection, nondistended, normoactive bowel sounds, soft to palpation, non-tender and non-distended Back/Spine normal ROM Extremity normal to inspection, full ROM and no pedal edema Skin no rashes or lesions noted Psych mental status grossly normal Weight / BMI Weight Weight: 95.6 kg Body Mass Index (BMI) 33.0 ABG / Lab / Microbiology Data 02/18/25 04:15 02/18/25 04:15 Microbiology: Microbiology 02/17/25 08:45 Sputum, Expectorated/Coughed Gram Stain - Final 02/17/25 08:45 Sputum, Expectorated/Coughed Respiratory Culture - Final Staphylococcus aureus 02/16/25 12:20 Urine Catheter - Catheter Legionella Antigen - Final 02/16/25 12:20 Urine Catheter - Catheter Streptococcus pneumoniae Antigen (M - Final 02/16/25 13:05 Mucosa - Nasopharyngeal Respiratory Panel (PCR) - Final 02/16/25 08:57 Mucosa - Nose SARS-CoV-2, Influenza & RSV (PCR) - Final D/C Instructions DC O2, CPAP, BIPAP Needs Home O2 Discharge instructions: No Meaningful Use Info Meaningful Use Meaningful Use Diagnoses (Choose all that apply): None applicable Discharge Plan Admission Admit Date/Time: 02/16/25 11:08 Primary Reason for Your Visit: Shortness of breath Attending Provider: Robson George Primary Care Provider: Aldair Woods Consulting Providers: Callie Manning Discharge Orders/Prescriptions Prescriptions: New amoxicillin-pot clavulanate 875-125 mg tablet 1 tab PO BID 3 Days Qty: 6 0RF Continued divalproex 250 mg tablet,delayed release (DR/EC) 250 mg PO BID aspirin 81 mg tablet 81 mg PO QDAY albuterol sulfate 90 mcg/actuation HFA aerosol inhaler 1 puff inhalation Q6H PRN (Reason: shortness of breath or wheezing) finasteride 5 mg tablet 5 mg PO QDAY lithium carbonate 300 mg tablet 300 mg PO BID omeprazole 20 MG capsule 20 mg PO BID fluphenazine decanoate 25 MG/ML solution 25 mg IM Q14D MDD Q 2 WEEKS simvastatin [Zocor] 20 MG tablet 20 mg PO QHS montelukast 10 MG tablet 10 mg PO DAILY multivitamin [Daily Multi-Vitamin] Tablet 1 tab PO DAILY trazodone 50 mg tablet 50 mg PO QHS cholecalciferol (vitamin D3) [D3 DOTS] 50 mcg (2,000 unit) tablet 50 mcg PO QHS acetaminophen 650 mg suppository 650 mg NH Q4H PRN (Reason: pain) acetaminophen 325 mg tablet 650 mg PO Q4H PRN (Reason: fever or pain) bisacodyl 10 mg suppository 10 mg NH DAILY PRN (Reason: CONSTIPATION) alum-mag hydroxide-simeth [Mintox Maximum Strength] 400-400-40 mg/5 mL suspension 30 ml PO Q4H PRN (Reason: indigestion) Fleet Enema 19-7 gram/118 mL enema 118 ml NH BID PRN (Reason: constipation) olanzapine 10 mg Tablet 10 mg PO BID 30 Days Qty: 0 2RF hydrochlorothiazide 25 mg Tablet 25 mg PO DAILY 30 Days Qty: 0 2RF glucagon HCl [Glucagon (HCl) Emergency Kit] 1 mg recon soln 1 mg IM Q20M PRN (Reason: hypoglycemia) Rx Instructions: until target blood sugar attained dextrose [Glucose Gel] 40 % gel 10 g PO Q15M PRN (Reason: hypoglycemia) Rx Instructions: until symptoms of low blood sugar are controlled ipratropium-albuterol 0.5 mg-3 mg(2.5 mg base)/3 mL solution for nebulization 3 ml continuous nebulization Q4H PRN (Reason: shortness of breath or wheezing) Patient Comments: [NO ORIGINAL SIG] loperamide [Imodium A-D] 2 mg capsule 2 mg PO PRN magnesium hydroxide [Dulcolax (magnesium hydroxide)] 400 mg/5 mL suspension 30 ml PO PRN Discontinued lithium carbonate 300 mg Capsule 300 mg PO QHS 30 Days Qty: 0 2RF Referrals / Follow Up: Aldair Woods DO [Primary Care Provider, Medical] Ingris Chu FIXED INCOME ANALYST, FIXED INCOME ANALYST-C [Non-Staff, Medical] Disposition Disposition (needs filled in before D/C Order can be placed): Snf Facility Charges/Coding Visit Charges Inpatient E&M: 88583 Disch Hosp >30min
--- NOTE | 2025-02-20 11:32 | PHA.DC.MR.R ---
Pharmacy MD Med Reconciliation Pharmacy Service has performed discharge medication reconciliation for this patient. The patient's discharge medication list was reviewed for discrepancies and discrepancies were resolved. 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 07/29/16 montelukast 10 mg tablet 10 mg PO DAILY 05/02/18 simvastatin 20 mg tablet (Zocor) 20 mg PO QHS 05/02/18 multivitamin (Daily Multi-Vitamin tablet) 1 tab PO DAILY replacement 12/09/23 acetaminophen 325 mg tablet 650 mg PO Q4H PRN fever or pain 05/23/24 acetaminophen 650 mg rectal suppository 650 mg NH Q4H PRN pain 05/23/24 aluminum-mag hydroxide-simethicone 400 mg-400 mg-40 mg/5 mL oral susp (Mintox Maximum Strength) 30 ml PO Q4H PRN indigestion 05/23/24 bisacodyl 10 mg rectal suppository 10 mg NH DAILY PRN CONSTIPATION 05/23/24 cholecalciferol (vitamin D3) 50 mcg (2,000 unit) tablet (D3 DOTS) 50 mcg PO QHS SUPPLEMENT 05/23/24 sodium phosphates 19 gram-7 gram/118 mL enema (Fleet Enema) 118 ml NH BID PRN constipation 05/23/24 trazodone 50 mg tablet 50 mg PO QHS sleep 05/23/24 hydrochlorothiazide 25 mg tablet 25 mg PO DAILY 30 days #0 tabs 06/04/24 olanzapine 10 mg tablet 10 mg PO BID 30 days #0 tabs 06/04/24 albuterol sulfate 90 mcg/actuation aerosol inhaler 1 puff inhalation Q6H PRN shortness of breath or wheezing 12/17/24 aspirin 81 mg tablet 81 mg PO QDAY 12/17/24 divalproex 250 mg tablet,delayed release 250 mg PO BID 12/17/24 finasteride 5 mg tablet 5 mg PO QDAY 12/17/24 lithium carbonate 300 mg tablet 300 mg PO BID 12/17/24 dextrose 40 % oral gel (Glucose Gel) 10 g PO Q15M PRN hypoglycemia 02/16/25 glucagon HCl 1 mg solution for injection (Glucagon (HCl) Emergency Kit) 1 mg IM Q20M PRN hypoglycemia 02/16/25 ipratropium 0.5 mg-albuterol 3 mg (2.5 mg base)/3 mL nebulization soln 3 ml continuous nebulization Q4H PRN shortness of breath or wheezing 02/16/25 loperamide 2 mg capsule (Imodium A-D) 2 mg PO PRN 02/16/25 magnesium hydroxide 400 mg/5 mL oral suspension (Dulcolax (magnesium hydroxide)) 30 ml PO PRN 02/16/25 amoxicillin 875 mg-potassium clavulanate 125 mg tablet 1 tab PO BID 3 days #6 tabs 02/20/25
--- NOTE | 2025-02-20 11:37 | CASEMGMT ---
Pt has a DC order placed. Transportation form filled out and provided to the DPA who plans to send signed med list and transfer summary to the SNF and also schedule transport. No further needs identified at this time.
[2025-02-20] MEDS: 0.9% Saline Lock 10 ML Syringe IV (12:53)
--- NOTE | 2025-02-20 14:48 | CASEMGMT ---
Discharge Planning Discharge orders, signed med list, and transport time sent via [facility]. Physicians will transport pt by cot at 2:30p. Nursing, RN CM, pt, and his mother (Karely) updated. Elisabet Mcmillan DC Planning Asst.
== END 2025-02-20 14:55 | disposition skilled nursing facility (03) | DRG 177 ==
LOC: ED 09:29 → ICU 11:16
PROVIDERS: Admitting Provider Internal Medicine; Emergency Provider Emergency Medicine; Visit Provider Hospitalist
DX: J69.0 Pneumonitis due to inhalation of food and vomit (principal); J96.01 Acute respiratory failure with hypoxia; J96.02 Acute respiratory failure with hypercapnia; G93.41 Metabolic encephalopathy; I50.32 Chronic diastolic (congestive) heart failure; N13.8 Other obstructive and reflux uropathy; J44.9 Chronic obstructive pulmonary disease, unspecified; I11.0 Hypertensive heart disease with heart failure; F31.9 Bipolar disorder, unspecified; F20.9 Schizophrenia, unspecified; E78.5 Hyperlipidemia, unspecified; K21.9 Gastro-esophageal reflux disease without esophagitis; F17.200 Nicotine dependence, unspecified, uncomplicated; N40.1 Benign prostatic hyperplasia with lower urinary tract symptoms; R13.12 Dysphagia, oropharyngeal phase; R79.89 Other specified abnormal findings of blood chemistry; Z79.82 Long term (current) use of aspirin; Z79.899 Other long term (current) drug therapy
CPT/HCPCS: 36600; 51702; 71045; 74230; 80048; 80053; 80164; 80178; 81001; 82140; 82803; 82962; 83605; 83735; 83880; 84484; 85025; 87040; 87070; 87077; 87186; 87205; 87449; 87631; 87633; 92526; 92610; 92611; 93005; 94002; 94003; 94640; 94668; 94762; 97162; 97166; 97530; 99285; A4216; J0295